=== PATIENT | female | born 1940 | race Caucasian/White ===

== ENCOUNTER 2016-06-11 17:38 | Inpatient (IN) | payer OTHER ==
[~2016-06-11] VITALS: Ht 157.5 cm; Wt 64.5 kg
[2016-06-11] VITALS (12 sets, daily range): BP systolic 145–232; BP diastolic 66–102; PULSE 58–96; RESP 18–28; TEMP 98.2; O2SAT 87–98
[~2016-06-11 17:38] MED LIST: ALBU1.25 NEB; ALPR.25 PO; ASPI81CH25 PO; BUME1TAB PO; CYAN1000P IM; DILT60TA33 PO; DRIS50002 PO; DULO1CAP3 PO; FENO160T PO; LANTUS2P SQ; LEVO150T7 PO; LEVO750T33 PO; LIPI10TA PO; MELO7.5T4 PO; METF500T PO; NITR1SUB3 SL; NOVOLOGP2 SQ; OXYC1TAB63 PO; PANT40TA3 PO; POTA-243 PO; THERM PO; TRAZ50TA12 PO; VALT1TAB PO; XARE20TA PO
[2016-06-11] MEDS ORDERED: SODIUM CHLORIDE 0.9% FLUSH 5 ML FLUSH IVF PRN (18:00)
--- NOTE | 2016-06-11 18:00 | PD ---
HPI Chief Complaint: Respiratory Symptoms Time Seen by Provider: 17:47 Travel History International Travel<30 days: No Contact w/Intl Traveler<30days: No Traveled to known affect area: No History of Present Illness HPI 75-year-old female with history of CAD status post CABG in February 2016 here with complaint of shortness of breath. Patient states that she has been struggling with "fluid on my lungs" despite being compliant with her Bumex. She takes Bumex 1 mg daily. Notes that Lasix allergy. Patient notes shortness of breath progressive over the last week with increasing lower extremity edema. Dry nonproductive cough. No chest pain.symptoms worse with exertion. She was seen at cardiology office today, her ambulance assistant is Dr. Roth, and was hypoxic and sent here for further evaluation. PFSH Past Medical History Hx Anticoagulant Therapy: Yes Arthritis: Yes Asthma: No Atrial Fibrillation: Yes Autoimmune Disease: No Anxiety: Yes Depression: Yes Heart Rhythm Problems: Yes (new onset A-Fib) Cancer: No Cardiac Catheterization: Yes Cardiovascular Problems: Yes (TRIPLE BYPASS) High Cholesterol: Yes Chemotherapy: No Chest Pain: No Congestive Heart Failure: Yes COPD: Yes Cerebrovascular Accident: No Coronary Artery Disease: Yes Diabetes: Yes Diminished Hearing: Yes Endocrine: Yes Gastrointestinal Disorders: Yes GERD: Yes Genitourinary: No Hiatal Hernia: Yes Hypertension: Yes Immune Disorder: No Kidney Stones: No Musculoskeletal: Yes Neurologic: No Psychiatric: Yes Reproductive: No Respiratory: Yes (COPD) Migraines: No Pneumonia: Yes Radiation Therapy: No Renal Failure: No Seizures: No Sickle Cell Disease: No Sleep Apnea: Yes Thyroid Disease: Yes (Hypothyroid) Ulcer: Yes ?: Not Past Surgical History Abdominal Surgery: Yes (gastric bypass) AICD: No Arteriovenous Shunt: No Cardiac Surgery: Yes ([place] 2008 stent) Coronary Artery Bypass Graft: Yes (X3) Coronary Stent: Yes (X`1) Ear Surgery: No Endocrine Surgery: No Eye Surgery: Yes (bilateral cataract sx) Genitourinary Surgery: No Gynecologic Surgery: No Insulin Pump: No Joint Replacement: No Neurologic Surgery: No Oral Surgery: Yes (teeth extraction, wisdom) Pacemaker: No Thoracic Surgery: No Other Surgery: Yes Social History Alcohol Use: Yes (socially) Tobacco Use: No Substance Use: No Allergies-Medications (Allergen,Severity, Reaction): Coded Allergies: Erythromycin (Verified Allergy, Unknown, 06/11/16) Lasix (Verified Allergy, Unknown, 06/11/16) Penicillin (Verified Allergy, Unknown, 06/11/16) Reported Meds & Prescriptions Reported Meds & Active Scripts Active Cardizem (Diltiazem HCl) 60 Mg Tab 60 Mg PO Q6HR Xarelto (Rivaroxaban) 20 Mg Tab 20 Mg PO DAILY Levofloxacin 750 Mg Tab 750 Mg PO DAILY Trazodone (Trazodone HCl) 50 Mg Tab 50 Mg PO HS 30 Days Klor-Con 10 (Potassium Chloride) 10 Meq Tab 10 Meq PO DAILY 7 Days Pantoprazole (Pantoprazole Sodium) 40 Mg Tab 40 Mg PO DAILY 30 Days Oxycodone-Acetaminophen 5-325 mg Tab 1 Tab PO Q6HR PRN Thera M Plus (Multivitamins/Minerals Therapeutic) 1 Tab 1 Tab PO DAILY 30 Days Meloxicam 7.5 Mg Tab 7.5 Mg PO DAILY PRN [address] (Duloxetine HCl) 60 Mg Capdr 120 Mg PO DAILY 30 Days Lipitor (Atorvastatin Calcium) 10 Mg Tab 10 Mg PO HS 30 Days Aspirin Low Strength (Aspirin) 81 Mg Chew 81 Mg PO DAILY 30 Days Xanax (Alprazolam) 0.25 Mg Tab 0.25 Mg PO Q8HR PRN 30 Days Albuterol Neb (Albuterol Sulfate) 1.25 Mg/3 Ml Neb 1.25 Mg NEB Q6HR NEB PRN 30 Days Reported Novolog Inj (Insulin Aspart) 1,000 Unit/10 Ml Vial 2-10 Units SQ ACHS Max dose at bedtime ( ) units; sugars less than 70,(0) units; sugars 150-200,(2) units; sugars 201-250,(4) units; sugars 251-300,(6) units; sugars 301-350,(8) units; sugars 351-400. (10) units Nitroglycerin SL (Nitroglycerin) 0.4 Mg Subl 0.4 Mg SL DIRECTED PRN ONE TABLET UNDER THE TONGUE NEEDED FOR CHEST PAIN, MAY REPEAT EVERY FIVE MINUTES FOR A TOTAL OF 3 DOSES OR CALL 911 IF NO RELIEF Valtrex (Valacyclovir HCl) 1 Gm Tab 1,000 Mg PO DAILY Bumetanide 1 Mg Tab 1 Mg PO DAILY PRN Drisdol (Ergocalciferol) 50,000 Unit Cap 50,000 Units PO WEEKLY ON MONDAYS Cyanocobalamin Inj (Cyanocobalamin) 1,000 Mcg/Ml Inj 1,000 Mcg IM EVERY 2 WEEKS Lantus Inj (Insulin Glargine) 100 Unit/Ml Inj 17 Units SQ HS Metformin (Metformin HCl) 500 Mg Tab 500 Mg PO DAILY With a meal Levothyroxine (Levothyroxine Sodium) 150 Mcg Tab 150 Mcg PO DAILY@0600 Fenofibrate 160 Mg Tab 160 Mg PO HS Review of Systems Except as stated in HPI: all other systems reviewed are Neg Physical Exam Narrative GENERAL: elderly female in no acute distress SKIN: Warm and dry. HEAD: Normocephalic. EYES: No scleral icterus. No injection or drainage. ENT: Mucous membranes pink and moist. NECK: supple CARDIOVASCULAR: Regular rate and rhythm. No murmur appreciated. RESPIRATORY: mild respiratory distress with decreased breath sounds bilaterally. Hypoxic on room air to 86%. 92% on 2 L. GASTROINTESTINAL: Abdomen soft, non-tender, nondistended. MUSCULOSKELETAL: 2+ lower extremity edema to the mid martell NEUROLOGICAL: Awake and alert. Normal speech. PSYCHIATRIC: Appropriate mood and affect; insight and judgment normal. Data Data Last Documented VS Vital Signs Date Time Temp Pulse Resp B/P Pulse Ox O2 Delivery O2 Flow Rate FiO2 06/11/16 17:40 98.2 60 28 145/66 87 Room Air Orders Complete Blood Count With Diff (06/11/16 17:52) Basic Metabolic Panel (Bmp) (06/11/16 17:52) B-Type Natriuretic Peptide (06/11/16 17:52) Troponin I (06/11/16 17:52) Iv Access Insert/Monitor (06/11/16 17:52) Electrocardiogram (06/11/16 17:52) Ecg Monitoring (06/11/16 17:52) Oximetry (06/11/16 17:52) Chest, Single Ap (06/11/16 17:52) Sodium Chloride 0.9% Flush (Ns Flush) (06/11/16 18:00) MDM Medical Decision Making Medical Screen Exam Complete: Yes Emergency Medical Condition: Yes Medical Record Reviewed: Yes Differential Diagnosis 75-year-old female with history of CAD status post CABG in February 2016 here with complaint of shortness of breath, lower extremity edema worsening over the last week despite compliance with Bumex. Differential includes CHF exacerbation , venous stasis, pleural effusion, pulmonary edema, symptomatic anemia, ACS, arrhythmia. Narrative Course Patient placed on monitor, IV established and blood obtained. Placed on supplemental oxygen due to her hypoxia. Twelve-lead EKG showed A. fib. Patient has T-wave inversions in inferior lateral leads similar to her previous EKG. No notable ST abnormalities, normal intervals. Portable chest x-ray obtained that by my read shows increased bilateral pleural effusions from previous. CBC, BMP, BNP, troponin pending. Patient signed out to oncoming provider awaiting results of same for ultimate admission. Diagnosis Primary Impression: CHF exacerbation Qualified Code: I50.9 - Acute on chronic congestive heart failure, unspecified congestive heart failure type Additional Impressions: Pleural effusion Hypoxia Dyspnea Qualified Code: R06.02 - Shortness of breath Admitting Information Admitting Physician Requests: Admit Lucrecia Dennis MD Jun 11, 2016 18:00
--- NOTE | 2016-06-11 18:22 | RADRPT ---
EXAM DATE/TIME: 06/11/2016 18:02 [facility] COMPARISON: CHEST SINGLE AP, May 19, 2016, 16:28. INDICATIONS : Short of Breath since Triple Bypass surgery in February 2016. MEDICAL HISTORY : Cardiovascular disease. SURGICAL HISTORY : CABG. Gastric bypass. Stent. ENCOUNTER: Initial ACUITY: 3 months PAIN SCORE: 0/10 LOCATION: Bilateral chest FINDINGS: The patient is status post sternotomy. The heart size is upper limits of normal for si ze. There is increased density at the bases bilaterally. There does appear to be some blunting of t he costophrenic angles likely related to mild bilateral pleural effusions. CONCLUSION: 1. Status post sternotomy. The heart size is upper limits of normal. 2. Increased density at the bases bilaterally likely representing a combination of atelectasis, conso lidation and mild effusions. Mango Sheth MD on June 11, 2016 at 18:11 Board Certified Radiologist. This report was verified electronically.
[2016-06-11] MEDS ORDERED: DILT90TA PO (19:12)
[2016-06-11 19:29] LABS: AUTOMATED NEUTROPHIL # 6.3 TH/MM3 (1.8-7.7); BASOPHIL # 0.1 TH/MM3 (0-0.2); BASOPHIL % 0.9 % (0.0-2.0); EOSINOPHIL # 0.1 TH/MM3 (0-0.4); HEMATOCRIT 32.2 % (35.0-46.0); LYMPH % 10.7 % (9.0-44.0); LYMPHOCYTE # 0.8 TH/MM3 (1.0-4.8); MEAN CELL VOLUME 72.4 FL (80.0-100.0); MEAN CORPUSCULAR HGB CONC 30.4 % (32.0-36.0); MONO % 6.8 % (0.0-8.0); NEUT % 80.6 % (16.0-70.0); PLATELET COUNT 446 TH/MM3 (150-450); RED BLOOD COUNT 4.44 MIL/MM3 (4.00-5.30); RED CELL DISTRIBUTION WIDTH 16.9 % (11.6-17.2); WHITE BLOOD COUNT 7.9 TH/MM3 (4.0-11.0)
[2016-06-11 19:32] LABS: HEMO FLAGS AUTO DIFF
[2016-06-11 19:38] LABS: BICARBONATE 26.8 MEQ/L (21.0-32.0); POTASSIUM 4.3 MEQ/L (3.5-5.1)
[2016-06-11] MEDS: NITROGLYCERIN-DEXTROSE INJ 250 ML IV SCH (20:14)
[2016-06-11] MEDS ORDERED: ASPIRIN 81 MG CHEW TAB CHEW ONE (20:15)
[2016-06-11] MEDS ORDERED: BISACODYL 10 MG SUPP PR PRN (21:00)
[2016-06-11] MEDS ORDERED: ACETAMINOPHEN 325 MG TAB PO PRN (21:00)
[2016-06-11] MEDS ORDERED: DEXTROSE 50% IN WATER 50 ML VIAL(D50) IV PUSH PRN (21:00)
[2016-06-11] MEDS ORDERED: GLUCAGON 1 MG/ML VIAL OTHER PRN (21:00)
[2016-06-11] MEDS ORDERED: MORPHINE SULFATE 4 MG/ML INJ IV PRN (21:00)
[2016-06-11] MEDS ORDERED: ACETAMINOPHEN/HYDROcodone 325 MG/5 MG TAB PO PRN (21:00)
[2016-06-11] MEDS ORDERED: ONDANSETRON HCL 4 MG/2 ML VIAL IVP PRN (21:00)
[2016-06-11] MEDS ORDERED: SODIUM CHLORIDE 0.9% FLUSH 5 ML FLUSH FLUSH PRN (21:00)
--- NOTE | 2016-06-11 21:04 | HHI.HP ---
[facility] Service [facility] Primary Care Physician Unknown Admission Diagnosis CHF Diagnoses: (1) CHF (congestive heart failure) Diagnosis: Principal (2) Elevated troponin Diagnosis: Principal (3) A-fib Diagnosis: Principal (4) Chronic anticoagulation Diagnosis: Principal (5) JULIANE (acute kidney injury) Diagnosis: Principal (6) HTN (hypertension) Diagnosis: Principal Travel History International Travel<30 Days: No Contact w/Intl Traveler <30 Da: No Traveled to Known Affected Are: No History of Present Illness This is a 75-year-old female with a PMH of HTN, CAD s/p CABG 02/2016, CHF (Echo 03/09/16 w/ EF 55-60%), A-fib on Xarelto and DM who came to the ER w/ complaints of SOB. States symptoms have been on and off since CABG, following w / Dr. Roth as outpatient. Had SOB during episode of A-fib after CABG, now controlled on Diltiazem and Xarelto and states SOB resolved. In last 2wks however SOB recurred, notes progressive SOB without exertion in addition to worsening lower extremity edema despite Bumex. Denies chest pain, cough, fever or chills. On arrival, BP 201/86, HR 64, O2 sat 87% on RA, currently O2 sat 97 % on 3L NC. Afebrile. WBC normal however elevated neutrophil count. Creatinine 1.45, produces 0.96 on 05/23/16. Troponin 0.18. BNP 409. CXR with sternotomy, increased density at bases bilaterally likely consolidation and mild effusions. Started on Nitro gtt in ER for HTN/CHF. Pt mildly improved, however ongoing SOB w/ exertion. Review of Systems Other ROS: 14 point review of systems otherwise negative. Past Family Social History Past Medical History PMH: HTN, CAD s/p CABG 02/2016, CHF (Echo 03/09/16 w/ EF 55-60%), A-fib on Xarelto and DM Past Surgical History PAST SURGICAL HISTORY: Gastric bypass, CABG, Bilateral Cataract Surgery, Tooth Extraction Allergies: Coded Allergies: Erythromycin (Verified Allergy, Unknown, 06/11/16) Lasix (Verified Allergy, Unknown, 06/11/16) Penicillin (Verified Allergy, Unknown, 06/11/16) Family History PAST FAMILY HISTORY: Reviewed. No h/o DM or CAD Social History PAST SOCIAL HISTORY: Negative for alcohol, tobacco or drugs. Physical Exam Vital Signs Vital Signs Date Time Temp Pulse Resp B/P Pulse Ox O2 Delivery O2 Flow Rate FiO2 06/11/16 20:49 65 18 200/93 97 06/11/16 20:36 219/98 06/11/16 20:17 67 18 232/102 06/11/16 19:14 64 18 201/86 96 Nasal Cannula 3 06/11/16 19:12 94 Room Air 06/11/16 17:40 98.2 60 28 145/66 87 Room Air Physical Exam PE: GENERAL: Very pleasant elderly white female in no acute distress, sitting up in stretcher. HEENT: PERRLA, EOMI. No scleral icterus or conjunctival pallor. No lid lag or facial droop. CARDIOVASCULAR: Regular rate and rhythm. No obvious murmurs to auscultation. No chest tenderness to palpation. RESPIRATORY: No obvious rhonchi or wheezing. Clear to auscultation. Breath sounds decreased at bases bilaterally. GASTROINTESTINAL: Abdomen soft, non-tender, nondistended. BS normal. MUSCULOSKELETAL: Extremities without clubbing, cyanosis. 2+ pitting edema bilaterally. No obvious deformities. NEUROLOGICAL: Awake, alert and oriented x4. No focal neurologic deficits. Moving both upper and lower extremities spontaneously. Laboratory Laboratory Tests Test 06/11/16 19:05 White Blood Count 7.9 Red Blood Count 4.44 Hemoglobin 9.8 Hematocrit 32.2 Mean Corpuscular Volume 72.4 Mean Corpuscular Hemoglobin 22.0 Mean Corpuscular Hemoglobin 30.4 Concent Red Cell Distribution Width 16.9 Platelet Count 446 Mean Platelet Volume 8.6 Neutrophils (%) (Auto) 80.6 Lymphocytes (%) (Auto) 10.7 Monocytes (%) (Auto) 6.8 Eosinophils (%) (Auto) 1.0 Basophils (%) (Auto) 0.9 Neutrophils # (Auto) 6.3 Lymphocytes # (Auto) 0.8 Monocytes # (Auto) 0.5 Eosinophils # (Auto) 0.1 Basophils # (Auto) 0.1 CBC Comment AUTO DIFF Sodium Level 137 Potassium Level 4.3 Chloride Level 101 Carbon Dioxide Level 26.8 Anion Gap 9 Blood Urea Nitrogen 29 Creatinine 1.45 Estimat Glomerular Filtration 35 Rate Random Glucose 193 Calcium Level 8.8 Troponin I 0.18 B-Type Natriuretic Peptide 409 Result Diagram: 06/11/16190406/11/161904 Assessment and Plan Problem List: (1) CHF (congestive heart failure) ICD Code: I50.9 Status: Acute (2) Elevated troponin ICD Code: R79.89 Status: Acute (3) A-fib ICD Code: I48.91 Status: Acute (4) Chronic anticoagulation ICD Code: Z79.01 Status: Acute (5) JULIANE (acute kidney injury) ICD Code: N17.9 Status: Acute (6) HTN (hypertension) ICD Code: I10 Status: Acute Assessment and Plan A/P: 1. CHF: Acute on Chronic. Diastolic. Echo 03/09/16 w/ EF 55-60%. BNP 409. CXR w/ bilateral pleural effusions, images reviewed by me. Currently on Nitro gtt. Will admit to [facility]. Place on telemetry. Check serial enzymes to eval for underlying ischemia as etiology for CHF exacerbation. Follows w/ Dr. Roth, will consult for further evaluation. Resume Bumex bid, Lasix Allergy, caution w/ renal function. 2. Elevated Trop: Trop 0.18. EKG w/ no acute ischemia. Check serial enzymes. Likely due to CHF exacerbation however r/o ACS. Resume home Statin, ASA. Not on B-brittney due to h/o Bradycardia. 3. A-fib: Controlled. Resume home Diltiazem. 4. Chronic Anticoagulation: On Xarelto for A-fib, will resume. 5. HTN: Uncontrolled. BP on arrival, 201/86, HR 64, later 232/102, HR 67. Currently on Nitro gtt for HTN and CHF, repeat BP 170/80, HR 58. Will continue to monitor. 6. JULIANE: Creatinine 1.45, previously 0.96 on 05/23/16. Repeat labs in am, caution w/ diuretics. 7. DVT Prophylaxis: On Xarelto. 8. Social work for DC planning as needed. 9. Case discussed at length with ER physician. Physician Certification 2 Midnight Certification Type: Admission for Inpatient Services Order for Inpatient Services The services are ordered in accordance with Medicare regulations or non- Medicare payer requirements, as applicable. In the case of services not specified as inpatient-only, they are appropriately provided as inpatient services in accordance with the 2-midnight benchmark. Estimated LOS (days): 2 days is the estimated time the patient will need to remain in the hospital, assuming treatment plan goals are met and no additional complications. Post-Hospital Plan: Not yet determined Sadia Johnson MD Jun 11, 2016 21:04
[2016-06-11 21:10] LABS: KERATOCYTES 1+ (NORMAL); OVALOCYTES 1+ (NORMAL); SCAN/DIFF AUTO DIFF CONFIRMED; TEARDROP RBCS 1+ (NORMAL)
[2016-06-11] MEDS: INSULIN DETEMIR 100 UNITS/ML VIAL SQ SCH (22:50)
[2016-06-11] MEDS: INSULIN ASPART SUPPLEMENTAL SCALE SQ SCH (22:51)
[2016-06-11] MEDS: traZODone HCL 50 MG TAB PO SCH (22:54)
[2016-06-11] MEDS: ATORVASTATIN 10 MG TAB PO SCH (22:54)
[2016-06-11] MEDS: DILTIAZEM HCL 90 MG TAB PO SCH (22:54)
[2016-06-11] MEDS: SODIUM CHLORIDE 0.9% FLUSH 5 ML FLUSH FLUSH SCH (22:55)
[2016-06-11] MEDS: FENOFIBRATE 145 MG TAB PO SCH (22:55)
[2016-06-12] VITALS (25 sets, daily range): BP systolic 102–182; BP diastolic 56–97; PULSE 45–70; RESP 18–20; TEMP 97.8–98.1; O2SAT 94–99
[2016-06-12] MEDS: DILTIAZEM HCL 90 MG TAB PO SCH ×4 (03:00→21:19)
[2016-06-12 05:49] LABS: BASOPHIL # 0.1 TH/MM3 (0-0.2); EOSINOPHIL # 0.1 TH/MM3 (0-0.4); EOSINOPHIL % 0.9 % (0.0-4.0); HEMATOCRIT 28.6 % (35.0-46.0); LYMPH % 13.6 % (9.0-44.0); LYMPHOCYTE # 0.9 TH/MM3 (1.0-4.8); MEAN CELL VOLUME 72.1 FL (80.0-100.0); MEAN CORPUSCULAR HEMOGLOBIN 22.2 PG (27.0-34.0); MEAN CORPUSCULAR HGB CONC 30.7 % (32.0-36.0); MONO % 8.6 % (0.0-8.0); NEUT % 75.9 % (16.0-70.0); PLATELET COUNT 376 TH/MM3 (150-450); RED BLOOD COUNT 3.96 MIL/MM3 (4.00-5.30); RED CELL DISTRIBUTION WIDTH 16.6 % (11.6-17.2); WHITE BLOOD COUNT 6.6 TH/MM3 (4.0-11.0)
[2016-06-12 05:51] LABS: ALT (GPT) 18 U/L (10-53); ANION GAP 8 MEQ/L (5-15); AST (GOT) 21 U/L (15-37); BICARBONATE 27.6 MEQ/L (21.0-32.0); BLOOD UREA NITROGEN 29 MG/DL (7-18); CHLORIDE 104 MEQ/L (98-107); GLOMERULAR FILTRATION RATE 39 ML/MIN (>89); POTASSIUM 3.9 MEQ/L (3.5-5.1); SODIUM (NA) 140 MEQ/L (136-145)
[2016-06-12 05:55] LABS: ALKALINE PHOSPHATASE 59 U/L (45-117); TOTAL BILIRUBIN ADULT 0.4 MG/DL (0.2-1.0)
[2016-06-12 06:22] LABS: HEMO FLAGS AUTO DIFF
[2016-06-12] MEDS: INSULIN ASPART SUPPLEMENTAL SCALE SQ SCH ×4 (06:46→21:23)
[2016-06-12] MEDS: LEVOTHYROXINE SODIUM 150 MCG TAB PO SCH (06:46)
[2016-06-12] MEDS: RIVAROXABAN 15 MG TAB PO SCH (08:43)
[2016-06-12] MEDS: PANTOPRAZOLE SOD 40 MG DELAYED RELEASE TAB PO SCH (08:43)
[2016-06-12] MEDS: ASPIRIN 81 MG CHEW TAB PO SCH (08:44)
[2016-06-12] MEDS: BUMETANIDE INJ 1 MG/4 ML VIAL IV PUSH SCH ×2 (08:44→17:18)
[2016-06-12] MEDS: SODIUM CHLORIDE 0.9% FLUSH 5 ML FLUSH FLUSH SCH ×2 (08:44→21:19)
[2016-06-12] MEDS: MULTIVITAMINS/MINERALS THERAPEUTIC TAB PO SCH (08:44)
[2016-06-12] MEDS: DULoxetine HCl DR 60 MG CAP PO SCH (08:53)
[2016-06-12 09:41] LABS: OVALOCYTES 1+ (NORMAL); SCAN/DIFF AUTO DIFF CONFIRMED
--- NOTE | 2016-06-12 12:34 | HHI.PR ---
Subjective Remarks Follow-up uncontrolled hypertension/CHF exacerbation 06/12/16-patient seen and examined, still complain of some shortness of breath however states he has improved since admission. Denies any chest pain. Also complains of bilateral lower extremity swelling. Objective Vitals Vital Signs Date Time Temp Pulse Resp B/P Pulse Ox O2 Delivery O2 Flow Rate FiO2 06/12/16 12:00 54 06/12/16 11:46 51 06/12/16 11:46 98.0 51 18 145/62 94 06/12/16 10:02 62 06/12/16 09:53 56 06/12/16 08:30 65 06/12/16 08:30 98.1 65 18 158/67 96 06/12/16 06:45 62 20 182/97 97 06/12/16 06:00 62 06/12/16 05:00 53 06/12/16 04:00 97.9 59 18 150/83 98 06/12/16 04:00 59 06/12/16 03:00 55 06/12/16 02:00 50 06/12/16 01:40 59 18 102/56 97 Nasal Cannula 3 06/12/16 01:30 97.8 50 18 166/77 99 06/12/16 00:45 53 18 160/72 97 Nasal Cannula 2 06/11/16 23:42 69 158/74 06/11/16 23:31 58 18 191/84 98 06/11/16 23:31 98 06/11/16 22:32 96 202/93 06/11/16 22:30 65 206/84 06/11/16 21:39 58 18 170/80 98 06/11/16 21:37 170/80 06/11/16 20:49 65 18 200/93 97 06/11/16 20:36 219/98 06/11/16 20:17 67 18 232/102 06/11/16 19:14 64 18 201/86 96 Nasal Cannula 3 06/11/16 19:12 94 Room Air 06/11/16 17:40 98.2 60 28 145/66 87 Room Air I/O 06/11/16 06/11/16 06/11/16 06/12/16 06/12/16 06/12/16 07:00 15:00 23:00 07:00 15:00 23:00 Intake Total 240 ml Balance 240 ml Intake Oral 240 ml # Voids 2 # Bowel Movements 0 Result Diagram: 06/12/16 0506 06/12/16 0506 Imaging Last Impressions Chest X-Ray 06/11/16 1752 Signed Impressions: Service Date/Time: Saturday, June 11, 2016 18:02 - CONCLUSION: 1. Status post sternotomy. The heart size is upper limits of normal. 2. Increased density at the bases bilaterally likely representing a combination of atelectasis, consolidation and mild effusions. Mango Sheth MD Objective Remarks GENERAL: NAD SKIN: Warm and dry. HEAD: Normocephalic. EYES: No scleral icterus. No injection or drainage. NECK: Supple, trachea midline. No JVD or lymphadenopathy. CARDIOVASCULAR: Regular rate and rhythm without murmurs, gallops, or rubs. RESPIRATORY: Breath sounds equal bilaterally. No accessory muscle use. GASTROINTESTINAL: Abdomen soft, non-tender, nondistended. MUSCULOSKELETAL: No cyanosis; +1 edema BLE. BACK: Nontender without obvious deformity. No CVA tenderness. A/P Problem List: (1) CHF (congestive heart failure) ICD Code: I50.9 Status: Acute (2) Elevated troponin ICD Code: R79.89 Status: Acute (3) A-fib ICD Code: I48.91 Status: Acute (4) Chronic anticoagulation ICD Code: Z79.01 Status: Acute (5) JULIANE (acute kidney injury) ICD Code: N17.9 Status: Acute (6) HTN (hypertension) ICD Code: I10 Status: Acute Assessment and Plan 75-year-old female with 1. CHF: Acute on Chronic. Diastolic. Echo 03/09/16 w/ EF 55-60%. BNP 409. CXR w/ bilateral pleural effusions. Currently on Nitro gtt, Bumex IV twice a day and appreciate input from cardiology. ACS ruled out per protocol with serial cardiac enzyme and EKGs. 2. Elevated Trop: Trop 0.18. EKG w/ no acute ischemia. Likely due to CHF exacerbation. ACS ruled out per protocol with serial cardiac enzyme and EKGs. Continue home Statin, ASA. Not on B-brittney due to h/o Bradycardia. 3. A-fib: Controlled. Continue home Diltiazem. 4. Chronic Anticoagulation: On Xarelto for A-fib, will resume. 5. HTN: Currently normotensive and continue Nitro gtt for HTN and CHF 6. JULIANE: Creatinine 1.45, previously 0.96 on 05/23/16. Monitor BUN and creatinine, caution w/ diuretics. 7. DVT Prophylaxis: On Xarelto. Rommel Stevens MD Jun 12, 2016 12:34
--- NOTE | 2016-06-12 14:24 | MB ---
cc: MICA KRUEGER MD DATE OF CONSULTATION: 06/12/2016 ADDENDUM: Elevated troponin. Minimally elevated troponin, is likely due to congestive heart failure, this is not consistent with acute coronary syndrome. She has no active angina. She may require a stress test prior to discharge but I will defer that to her primary audio video repairer Dr. Roth. MD ORLANDO NickersonH/ /11:41 AM /2:17 PM
--- NOTE | 2016-06-12 14:25 | EKG ---
Date Performed: 06/12/2016 Time Performed: 00:27:04 PTAGE: 75 years EKG: ATRIAL FIBRILLATION WITH SLOW VENTRICULAR RESPONSE ST DEVIATION AND MODERATE T-WAVE ABNORMA LITY, CONSIDER INFERIOR ISCHEMIA Poor R wave progression Cannot rule out anterior injury, age undeter mined Largely unchanged from prior tracing ABNORMAL ECG PREVIOUS TRACING : 06/11/2016 18.20 DOCTOR: Chu Ratliff Interpretating Date/Time 06/12/2016 14:24:41
--- NOTE | 2016-06-12 14:26 | EKG ---
Date Performed: 06/12/2016 Time Performed: 05:10:40 PTAGE: 75 years EKG: Atrial fibrillation with slow ventricular response Rightward axis Poor R wave progression - probable normal variant Inferior/lateral ST-T changes are nonspecific Possible old anteroseptal inju ry Abnormal ECG PREVIOUS TRACING : 06/12/2016 00.27 DOCTOR: Chu Ratliff Interpretating Date/Time 06/12/2016 14:25:38
--- NOTE | 2016-06-12 14:34 | MB ---
cc: MICA KRUEGER MD DATE OF CONSULTATION: 06/12/2016 REASON FOR CONSULTATION Shortness of breath. HISTORY OF PRESENT ILLNESS The patient is a very pleasant 75-year-old woman who sees my partner Dr. Roth for a history of CABG, a-fib who says she has not been doing very well since her CABG that over the last few weeks has had worsening shortness of breath. She saw Dr. Roth this past Tuesday and was referred to Pulmonology who had her come to the hospital. Currently she is feeling a little better than on admission though no current chest pain or active shortness of breath, lightheadedness, dizziness, syncope. PAST MEDICAL HISTORY 1. A-fib on Xarelto. 2. Diabetes. 3. Obesity. 4. Coronary artery disease status post CABG 03/18/2016. CURRENT MEDICATIONS 1. Aspirin 81 mg daily. 2. Cymbalta. 3. Protonix 40 mg daily. 4. Xarelto 15 mg daily. 5. Bumex 1 mg IV b.i.d. 6. Cardizem 90 mg q.6 hours. 7. Fenofibrate. 8. Nitro drip. ALLERGIES ERYTHROMYCIN, LASIX, PENICILLIN. PHYSICAL EXAMINATION VITAL SIGNS: Afebrile, pulse 60, respiratory rate 18, BP 158/67 down from 182/97, satting 96 on 3 liters. GENERAL: A pleasant well-appearing woman in no distress. NECK: No JVD. LUNGS: Decreased breath sounds. CARDIOVASCULAR: Regular rate and rhythm. No murmurs appreciated. ABDOMEN: Abdomen is benign. EXTREMITIES: No edema. LABORATORY DATA White count 6.6, hematocrit 28.6, platelets 376. Sodium 140, potassium 3.9, chloride 104, bicarb 27.6, BUN 29, creatinine 1.32. Troponin 0.18, 0.17, 0.16. BNP is 409. EKG shows atrial fibrillation with a rate of [address] changes. IMPRESSION Shortness of breath. The patient's shortness of breath is likely multifactorial. She has a chest x-ray which showed a possible combination of atelectasis, consolidation and mild effusions which may be responsible for her symptoms. Her BNP is modestly elevated and her blood pressures were high indicating she probably has some degree of diastolic dysfunction. She says she had an echocardiogram performed relatively recently in our office which I will check but I do not feel that it needs to be repeated if this is the case. Otherwise, I would continue her on her IV Bumex for now. We will try to wean off her nitro drip and begin a more aggressive oral regimen for her blood pressures and would also recommend continued treatment from the medical or pulmonary treatment regarding possible pneumonia and COPD exacerbations. Further recommendations based on her clinical course. Thank you again for opportunity to participate in this patient's care. MD KRISTOPHER Nickerson/CYRUS /11:34 AM /2:06 PM
[2016-06-12] MEDS: ALPRAZolam 0.25 MG TAB PO PRN (16:14)
--- NOTE | 2016-06-12 16:48 | EKG ---
Date Performed: 06/11/2016 Time Performed: 18:20:56 PTAGE: 75 years EKG: ATRIAL FIBRILLATION BORDERLINE RIGHT AXIS DEVIATION NONSPECIFIC ST & T-WAVE ABNORMALITY Pro bable anterior injury, age undetermined Largely unchanged from prior tracing ABNORMAL ECG PREVIOUS TRACING : 05/20/2016 09.31 DOCTOR: Chu Ratliff Interpretating Date/Time 06/12/2016 16:48:25
[2016-06-12] MEDS: FENOFIBRATE 145 MG TAB PO SCH (21:18)
[2016-06-12] MEDS: traZODone HCL 50 MG TAB PO SCH (21:18)
[2016-06-12] MEDS: ATORVASTATIN 10 MG TAB PO SCH (21:19)
[2016-06-12] MEDS: INSULIN DETEMIR 100 UNITS/ML VIAL SQ SCH (21:23)
[2016-06-13] VITALS (21 sets, daily range): BP systolic 143–161; BP diastolic 68–83; PULSE 52–75; RESP 16–22; TEMP 97.5–98.3; O2SAT 94–98
[2016-06-13] MEDS: DILTIAZEM HCL 90 MG TAB PO SCH ×4 (03:23→20:42)
[2016-06-13 04:19] LABS: AUTOMATED NEUTROPHIL # 6.7 TH/MM3 (1.8-7.7); BASOPHIL # 0.1 TH/MM3 (0-0.2); BASOPHIL % 0.9 % (0.0-2.0); EOSINOPHIL # 0.1 TH/MM3 (0-0.4); EOSINOPHIL % 1.1 % (0.0-4.0); HEMATOCRIT 29.1 % (35.0-46.0); LYMPH % 10.5 % (9.0-44.0); LYMPHOCYTE # 0.9 TH/MM3 (1.0-4.8); MEAN CELL VOLUME 71.3 FL (80.0-100.0); MEAN CORPUSCULAR HEMOGLOBIN 22.3 PG (27.0-34.0); MEAN CORPUSCULAR HGB CONC 31.3 % (32.0-36.0); MONO % 7.5 % (0.0-8.0); PLATELET COUNT 379 TH/MM3 (150-450); RED BLOOD COUNT 4.08 MIL/MM3 (4.00-5.30); RED CELL DISTRIBUTION WIDTH 16.7 % (11.6-17.2); WHITE BLOOD COUNT 8.3 TH/MM3 (4.0-11.0)
[2016-06-13 04:38] LABS: ANION GAP 7 MEQ/L (5-15); AST (GOT) 17 U/L (15-37); BICARBONATE 32.7 MEQ/L (21.0-32.0); BLOOD UREA NITROGEN 24 MG/DL (7-18); CHLORIDE 102 MEQ/L (98-107); GLOMERULAR FILTRATION RATE 56 ML/MIN (>89); POTASSIUM 3.6 MEQ/L (3.5-5.1); SODIUM (NA) 142 MEQ/L (136-145)
[2016-06-13 04:41] LABS: ALKALINE PHOSPHATASE 60 U/L (45-117)
[2016-06-13 04:42] LABS: ALT (GPT) 19 U/L (10-53); TOTAL BILIRUBIN ADULT 0.5 MG/DL (0.2-1.0)
[2016-06-13 04:46] LABS: HEMO FLAGS AUTO DIFF
[2016-06-13 05:26] LABS: OVALOCYTES 1+ (NORMAL); PLATELET ESTIMATE SMEAR NORMAL (NORMAL); PLATELET MORPHOLOGY NORMAL (NORMAL)
[2016-06-13 05:27] LABS: SCAN/DIFF AUTO DIFF CONFIRMED
[2016-06-13] MEDS: LEVOTHYROXINE SODIUM 150 MCG TAB PO SCH (06:28)
[2016-06-13] MEDS: INSULIN ASPART SUPPLEMENTAL SCALE SQ SCH ×4 (06:29→21:10)
[2016-06-13] MEDS: DULoxetine HCl DR 60 MG CAP PO SCH (09:30)
[2016-06-13] MEDS: ASPIRIN 81 MG CHEW TAB PO SCH (09:30)
[2016-06-13] MEDS: RIVAROXABAN 15 MG TAB PO SCH (09:30)
[2016-06-13] MEDS: MULTIVITAMINS/MINERALS THERAPEUTIC TAB PO SCH (09:30)
[2016-06-13] MEDS: PANTOPRAZOLE SOD 40 MG DELAYED RELEASE TAB PO SCH (09:30)
[2016-06-13] MEDS: SODIUM CHLORIDE 0.9% FLUSH 5 ML FLUSH FLUSH SCH ×2 (09:31→20:43)
[2016-06-13] MEDS: BUMETANIDE INJ 1 MG/4 ML VIAL IV PUSH SCH ×2 (09:31→17:43)
--- NOTE | 2016-06-13 11:25 | PD.CARD.PN ---
Subjective Subjective Remarks Feeling better but still mildly dyspneic Objective Medications Administered Medications Medications (Trade) Dose Ordered Sig/Seema Route PRN Reason Start Time Stop Time Status Last Admin Dose Admin Nitroglycerin/ Dextrose (Nitroglycerin-Dextrose Inj) 250 ml @ 0 mls/hr TITRATE IV 06/11/16 19:30 06/11/16 20:14 IV Flush (NS Flush) 2 ml BID FLUSH 06/11/16 21:00 06/13/16 09:31 Alprazolam (Xanax) 0.25 mg Q8HR PRN PO anxiety 06/11/16 21:00 06/12/16 16:14 Aspirin (Aspirin Chew) 81 mg DAILY PO 06/12/16 09:00 06/13/16 09:30 Atorvastatin Calcium (Lipitor) 10 mg HS PO 06/11/16 21:00 06/12/16 21:19 Diltiazem HCl (Cardizem) 90 mg Q6H PO 06/11/16 21:00 06/13/16 09:30 Duloxetine HCl (Cymbalta Dr) 120 mg DAILY PO 06/12/16 09:00 06/13/16 09:30 Fenofibrate (Tricor) 145 mg HS PO 06/11/16 21:00 06/12/16 21:18 Insulin Detemir (Levemir Inj) 17 units HS SQ 06/11/16 22:00 06/12/16 21:23 Levothyroxine Sodium (Synthroid) 150 mcg DAILY@0600 PO 06/12/16 06:00 06/13/16 06:28 Multivitamins/ Minerals Therapeutic (Theragran M Tab) 1 tab DAILY PO 06/12/16 09:00 06/13/16 09:30 Pantoprazole Sodium (Protonix) 40 mg DAILY PO 06/12/16 09:00 06/13/16 09:30 Rivaroxaban (Xarelto) 15 mg DAILY PO 06/12/16 09:00 06/13/16 09:30 Trazodone HCl (Desyrel) 50 mg HS PO 06/11/16 21:00 06/12/16 21:18 Bumetanide (Bumex Inj) 1 mg BID@,18 IV PUSH 06/12/16 09:00 06/13/16 09:31 Vital Signs / I&O Vital Signs Date Time Temp Pulse Resp B/P Pulse Ox O2 Delivery O2 Flow Rate FiO2 06/13/16 07:00 97.5 66 18 157/83 98 06/13/16 06:00 65 06/13/16 05:00 64 06/13/16 04:00 73 06/13/16 03:00 97.8 66 18 154/80 97 06/13/16 03:00 66 06/13/16 02:00 59 06/13/16 01:00 52 06/13/16 00:00 71 06/13/16 00:00 98.0 71 20 161/76 96 06/12/16 23:00 62 06/12/16 22:00 65 06/12/16 21:00 61 06/12/16 20:00 55 06/12/16 19:00 97.8 45 20 172/81 98 06/12/16 19:00 45 06/12/16 18:04 68 06/12/16 17:13 70 06/12/16 16:04 69 06/12/16 15:07 62 06/12/16 15:07 98.0 62 20 151/82 96 06/12/16 14:14 63 06/12/16 13:41 55 06/12/16 12:00 54 06/12/16 11:46 51 06/12/16 11:46 98.0 51 18 145/62 94 I/O 06/12/16 06/12/16 06/12/16 06/13/16 06/13/16 06/13/16 07:00 15:00 23:00 07:00 15:00 23:00 Intake Total 240 ml 630 ml 420 ml Output Total 1050 ml 800 ml Balance 240 ml -420 ml -380 ml Intake Oral 240 ml 600 ml 320 ml IV Total 30 ml 100 ml Output Urine Total 1050 ml 800 ml # Voids 2 # Bowel Movements 0 1 2 Physical Exam GENERAL: This is a well-nourished, well-developed patient, in no apparent distress. CARDIOVASCULAR: Regular rate and rhythm without murmurs, gallops, or rubs. RESPIRATORY: Clear to auscultation. Breath sounds equal bilaterally. No wheezes , rales, or rhonchi. GASTROINTESTINAL: Abdomen soft, non-tender, nondistended. Normal active bowel sounds MUSCULOSKELETAL: Extremities without clubbing, cyanosis, or edema. NEURO: Alert & Oriented x4 to person, place, time, situation. Moves all ext x4 Laboratory Laboratory Tests Test 06/13/16 03:41 White Blood Count 8.3 TH/MM3 Red Blood Count 4.08 MIL/MM3 Hemoglobin 9.1 GM/DL Hematocrit 29.1 % Mean Corpuscular Volume 71.3 FL Mean Corpuscular Hemoglobin 22.3 PG Mean Corpuscular Hemoglobin 31.3 % Concent Red Cell Distribution Width 16.7 % Platelet Count 379 TH/MM3 Mean Platelet Volume 8.6 FL Neutrophils (%) (Auto) 80.0 % Lymphocytes (%) (Auto) 10.5 % Monocytes (%) (Auto) 7.5 % Eosinophils (%) (Auto) 1.1 % Basophils (%) (Auto) 0.9 % Neutrophils # (Auto) 6.7 TH/MM3 Lymphocytes # (Auto) 0.9 TH/MM3 Monocytes # (Auto) 0.6 TH/MM3 Eosinophils # (Auto) 0.1 TH/MM3 Basophils # (Auto) 0.1 TH/MM3 CBC Comment AUTO DIFF Differential Comment AUTO DIFF CONFIRMED Platelet Estimate NORMAL Platelet Morphology Comment NORMAL Ovalocytes 1+ Sodium Level 142 MEQ/L Potassium Level 3.6 MEQ/L Chloride Level 102 MEQ/L Carbon Dioxide Level 32.7 MEQ/L Anion Gap 7 MEQ/L Blood Urea Nitrogen 24 MG/DL Creatinine 0.98 MG/DL Estimat Glomerular Filtration 56 ML/MIN Rate Random Glucose 111 MG/DL Calcium Level 8.8 MG/DL Total Bilirubin 0.5 MG/DL Aspartate Amino Transf 17 U/L (AST/SGOT) Alanine Aminotransferase 19 U/L (ALT/SGPT) Alkaline Phosphatase 60 U/L Total Protein 6.9 GM/DL Albumin 3.2 GM/DL Imaging Last Impressions Chest X-Ray 06/11/16 6272 Signed Impressions: Service Date/Time: Saturday, June 11, 2016 18:02 - CONCLUSION: 1. Status post sternotomy. The heart size is upper limits of normal. 2. Increased density at the bases bilaterally likely representing a combination of atelectasis, consolidation and mild effusions. Mango Sheth MD Assessment and Plan Problem List: (1) CHF (congestive heart failure) Assessment and Plan: On IV bumex, improving sx. (2) Dyspnea Assessment and Plan: Likely multifactorial but improving. (3) A-fib Assessment and Plan: controlled, on xarelto (4) Elevated troponin Assessment and Plan: Likely due to chf/ pattern not c/w ACS (5) Hypertension Assessment and Plan: added Losartan, will try to d/c nitro ggt. (6) Coronary artery disease Problem Qualifiers (1) Dyspnea: Qualified Code: R06.02 - Shortness of breath Yosef Jon MD Jun 13, 2016 11:25
--- NOTE | 2016-06-13 11:37 | HHI.PR ---
Subjective Remarks Follow-up uncontrolled hypertension/CHF exacerbation 06/12/16-patient seen and examined, still complain of some shortness of breath however states he has improved since admission. Denies any chest pain. Also complains of bilateral lower extremity swelling. 06/13/16-patient seen and examined; although improved however patient is still with some mild dyspnea. Denies any chest pain. BP improving. Objective Vitals Vital Signs Date Time Temp Pulse Resp B/P Pulse Ox O2 Delivery O2 Flow Rate FiO2 06/13/16 11:00 97.6 66 18 143/68 96 06/13/16 07:00 97.5 66 18 157/83 98 06/13/16 06:00 65 06/13/16 05:00 64 06/13/16 04:00 73 06/13/16 03:00 97.8 66 18 154/80 97 06/13/16 03:00 66 06/13/16 02:00 59 06/13/16 01:00 52 06/13/16 00:00 71 06/13/16 00:00 98.0 71 20 161/76 96 06/12/16 23:00 62 06/12/16 22:00 65 06/12/16 21:00 61 06/12/16 20:00 55 06/12/16 19:00 97.8 45 20 172/81 98 06/12/16 19:00 45 06/12/16 18:04 68 06/12/16 17:13 70 06/12/16 16:04 69 06/12/16 15:07 62 06/12/16 15:07 98.0 62 20 151/82 96 06/12/16 14:14 63 06/12/16 13:41 55 06/12/16 12:00 54 06/12/16 11:46 51 06/12/16 11:46 98.0 51 18 145/62 94 I/O 06/12/16 06/12/16 06/12/16 06/13/16 06/13/16 06/13/16 07:00 15:00 23:00 07:00 15:00 23:00 Intake Total 240 ml 630 ml 420 ml Output Total 1050 ml 800 ml Balance 240 ml -420 ml -380 ml Intake Oral 240 ml 600 ml 320 ml IV Total 30 ml 100 ml Output Urine Total 1050 ml 800 ml # Voids 2 # Bowel Movements 0 1 2 Result Diagram: 06/13/16 0341 06/13/16 0341 Imaging Last Impressions Chest X-Ray 06/11/16 1752 Signed Impressions: Service Date/Time: Saturday, June 11, 2016 18:02 - CONCLUSION: 1. Status post sternotomy. The heart size is upper limits of normal. 2. Increased density at the bases bilaterally likely representing a combination of atelectasis, consolidation and mild effusions. Mango Sheth MD Objective Remarks GENERAL: NAD SKIN: Warm and dry. HEAD: Normocephalic. EYES: No scleral icterus. No injection or drainage. NECK: Supple, trachea midline. No JVD or lymphadenopathy. CARDIOVASCULAR: Regular rate and rhythm without murmurs, gallops, or rubs. RESPIRATORY: Breath sounds equal bilaterally. No accessory muscle use. GASTROINTESTINAL: Abdomen soft, non-tender, nondistended. MUSCULOSKELETAL: No cyanosis; +1 edema BLE. BACK: Nontender without obvious deformity. No CVA tenderness. A/P Problem List: (1) CHF (congestive heart failure) ICD Code: I50.9 Status: Acute (2) Elevated troponin ICD Code: R79.89 Status: Acute (3) A-fib ICD Code: I48.91 Status: Acute (4) Chronic anticoagulation ICD Code: Z79.01 Status: Acute (5) JULIANE (acute kidney injury) ICD Code: N17.9 Status: Acute (6) HTN (hypertension) ICD Code: I10 Status: Acute Assessment and Plan 75-year-old female with 1. CHF: Acute on Chronic. Diastolic. Echo 03/09/16 w/ EF 55-60%. BNP 409. CXR w/ bilateral pleural effusions. Currently on Nitro gtt, Bumex IV twice a day and appreciate input from cardiology. ACS ruled out per protocol with serial cardiac enzyme and EKGs. Plan to discontinue nitroglycerin gtt today 2. Elevated Trop: Trop 0.18. EKG w/ no acute ischemia. Likely due to CHF exacerbation. ACS ruled out per protocol with serial cardiac enzyme and EKGs. Continue home Statin, ASA. Not on B-brittney due to h/o Bradycardia. 3. A-fib: Controlled. Continue home Diltiazem. 4. Chronic Anticoagulation: On Xarelto for A-fib, will resume. 5. HTN: Currently normotensive and likely attempt to discontinue Nitro gtt today. Losartan 100 mg by mouth daily added today 6. JULIANE: Creatinine 1.45, previously 0.96 on 05/23/16 now improving. Monitor BUN and creatinine, caution w/ diuretics. 7. DVT Prophylaxis: On Xarelto. Rommel Stevens MD Jun 13, 2016 11:37
[2016-06-13] MEDS: LOSARTAN 50 MG TAB PO SCH (12:15)
[2016-06-13] MEDS: ALPRAZolam 0.25 MG TAB PO PRN ×2 (12:15→20:42)
[2016-06-13] MEDS: NITROGLYCERIN-DEXTROSE INJ 250 ML IV SCH (19:24)
[2016-06-13] MEDS: ATORVASTATIN 10 MG TAB PO SCH (20:42)
[2016-06-13] MEDS: FENOFIBRATE 145 MG TAB PO SCH (20:42)
[2016-06-13] MEDS: traZODone HCL 50 MG TAB PO SCH (20:42)
[2016-06-13] MEDS: INSULIN DETEMIR 100 UNITS/ML VIAL SQ SCH (20:43)
[2016-06-14] VITALS (22 sets, daily range): BP systolic 134–170; BP diastolic 66–79; PULSE 54–89; RESP 17–21; TEMP 98.1–99; O2SAT 92–96
[2016-06-14] MEDS: DILTIAZEM HCL 90 MG TAB PO SCH ×4 (03:51→22:01)
[2016-06-14] MEDS: LEVOTHYROXINE SODIUM 150 MCG TAB PO SCH (05:37)
[2016-06-14] MEDS: INSULIN ASPART SUPPLEMENTAL SCALE SQ SCH ×4 (05:37→22:00)
[2016-06-14] MEDS: BUMETANIDE INJ 1 MG/4 ML VIAL IV PUSH SCH ×2 (08:29→17:45)
[2016-06-14] MEDS: DULoxetine HCl DR 60 MG CAP PO SCH (08:29)
[2016-06-14] MEDS: PANTOPRAZOLE SOD 40 MG DELAYED RELEASE TAB PO SCH (08:29)
[2016-06-14] MEDS: RIVAROXABAN 15 MG TAB PO SCH (08:30)
[2016-06-14] MEDS: LOSARTAN 50 MG TAB PO SCH (08:30)
[2016-06-14] MEDS: SODIUM CHLORIDE 0.9% FLUSH 5 ML FLUSH FLUSH SCH ×2 (08:30→22:03)
[2016-06-14] MEDS: MULTIVITAMINS/MINERALS THERAPEUTIC TAB PO SCH (08:30)
[2016-06-14] MEDS: ASPIRIN 81 MG CHEW TAB PO SCH (08:30)
--- NOTE | 2016-06-14 10:32 | PD.CARD.PN ---
Subjective Subjective Remarks Pt feels like she is slowly improving but still desaturates w/o O2 during ambulation Objective Medications Administered Medications Medications (Trade) Dose Ordered Sig/Seema Route PRN Reason Start Time Stop Time Status Last Admin Dose Admin Nitroglycerin/ Dextrose (Nitroglycerin-Dextrose Inj) 250 ml @ 0 mls/hr TITRATE IV 06/11/16 19:30 06/13/16 19:24 IV Flush (NS Flush) 2 ml BID FLUSH 06/11/16 21:00 06/14/16 08:30 Alprazolam (Xanax) 0.25 mg Q8HR PRN PO anxiety 06/11/16 21:00 06/13/16 20:42 Aspirin (Aspirin Chew) 81 mg DAILY PO 06/12/16 09:00 06/14/16 08:30 Atorvastatin Calcium (Lipitor) 10 mg HS PO 06/11/16 21:00 06/13/16 20:42 Diltiazem HCl (Cardizem) 90 mg Q6H PO 06/11/16 21:00 06/14/16 08:30 Duloxetine HCl (Cymbalta Dr) 120 mg DAILY PO 06/12/16 09:00 06/14/16 08:29 Fenofibrate (Tricor) 145 mg HS PO 06/11/16 21:00 06/13/16 20:42 Insulin Detemir (Levemir Inj) 17 units HS SQ 06/11/16 22:00 06/13/16 20:43 Levothyroxine Sodium (Synthroid) 150 mcg DAILY@0600 PO 06/12/16 06:00 06/14/16 05:37 Multivitamins/ Minerals Therapeutic (Theragran M Tab) 1 tab DAILY PO 06/12/16 09:00 06/14/16 08:30 Pantoprazole Sodium (Protonix) 40 mg DAILY PO 06/12/16 09:00 06/14/16 08:29 Rivaroxaban (Xarelto) 15 mg DAILY PO 06/12/16 09:00 06/14/16 08:30 Trazodone HCl (Desyrel) 50 mg HS PO 06/11/16 21:00 06/13/16 20:42 Bumetanide (Bumex Inj) 1 mg BID@,18 IV PUSH 06/12/16 09:00 06/14/16 08:29 Losartan Potassium (Cozaar) 100 mg DAILY PO 06/13/16 12:00 06/14/16 08:30 Vital Signs / I&O Vital Signs Date Time Temp Pulse Resp B/P Pulse Ox O2 Delivery O2 Flow Rate FiO2 06/14/16 06:00 Nasal Cannula 3.00 06/14/16 05:31 58 145/68 06/14/16 04:08 98.2 89 21 170/77 95 06/13/16 23:45 98.1 63 22 159/79 94 06/13/16 20:00 Nasal Cannula 3.00 06/13/16 20:00 98.3 61 16 157/81 97 06/13/16 18:00 58 06/13/16 17:00 61 06/13/16 16:00 62 06/13/16 15:00 60 06/13/16 15:00 97.5 73 18 144/77 96 06/13/16 14:00 60 06/13/16 13:00 71 06/13/16 12:00 65 06/13/16 11:00 97.6 66 18 143/68 96 06/13/16 11:00 70 I/O 06/13/16 06/13/16 06/13/16 06/14/16 06/14/16 06/14/16 07:00 15:00 23:00 07:00 15:00 23:00 Intake Total 420 ml 1287 ml Output Total 800 ml 600 ml 1200 ml Balance -380 ml 687 ml -1200 ml Intake Oral 320 ml 1200 ml IV Total 100 ml 87 ml Output Urine Total 800 ml 600 ml 1200 ml # Voids 5 # Bowel Movements 2 4 1 Physical Exam GENERAL: This is a well-nourished, well-developed patient, in no apparent distress. CARDIOVASCULAR: Regular rate and rhythm without murmurs, gallops, or rubs. RESPIRATORY: decreased breath sounds GASTROINTESTINAL: Abdomen soft, non-tender, nondistended. Normal active bowel sounds MUSCULOSKELETAL: trace to 1+ LE edema NEURO: Alert & Oriented x4 to person, place, time, situation. Moves all ext x4 Imaging Last Impressions Chest X-Ray 06/11/16 0487 Signed Impressions: Service Date/Time: Saturday, June 11, 2016 18:02 - CONCLUSION: 1. Status post sternotomy. The heart size is upper limits of normal. 2. Increased density at the bases bilaterally likely representing a combination of atelectasis, consolidation and mild effusions. Mango Sheth MD Assessment and Plan Problem List: (1) CHF (congestive heart failure) Assessment and Plan: On IV bumex, improving sx and cr, perhaps can change to PO tomorrow (2) Dyspnea Assessment and Plan: improving but seems to have pulmonary component as well, consider pulm consult (3) A-fib Assessment and Plan: controlled, on xarelto (4) Elevated troponin Assessment and Plan: Likely due to chf/ pattern not c/w ACS (5) Hypertension Assessment and Plan: added amlodipine (6) Coronary artery disease Assessment and Plan Dr. Roth will return tomorrow to resume care. Problem Qualifiers (1) Dyspnea: Qualified Code: R06.02 - Shortness of breath Yosef Jon MD Jun 14, 2016 10:32
[2016-06-14] MEDS: amLODIPine BESYLATE 5 MG TAB PO SCH (10:47)
--- NOTE | 2016-06-14 12:13 | PD ---
Physical Exam Narrative Patient signed out to me by Dr. Caballero to follow-up labs and disposition. Please see her note for complete history and physical. Briefly, patient has been having increasing shortness of breath with swelling of her legs. Chest x- ray shows bilateral pleural effusions. Patient takes Bumex daily as she is allergic to Lasix. Currently patient is comfortable in bed, no tachypnea, though she still reports feeling short of breath. Data Data Last Documented VS Vital Signs Date Time Temp Pulse Resp B/P Pulse Ox O2 Delivery O2 Flow Rate FiO2 06/11/16 20:49 65 18 200/93 97 06/11/16 19:14 Nasal Cannula 3 06/11/16 17:40 98.2 Orders Complete Blood Count With Diff (06/11/16 17:52) Basic Metabolic Panel (Bmp) (06/11/16 17:52) B-Type Natriuretic Peptide (06/11/16 17:52) Troponin I (06/11/16 17:52) Iv Access Insert/Monitor (06/11/16 17:52) Electrocardiogram (06/11/16 17:52) Ecg Monitoring (06/11/16 17:52) Oximetry (06/11/16 17:52) Chest, Single Ap (06/11/16 17:52) Sodium Chloride 0.9% Flush (Ns Flush) (06/11/16 18:00) Nitroglycerin-Dextrose Inj (Nitroglyceri (06/11/16 19:30) Aspirin Chew (Aspirin Chew) (06/11/16 20:15) Admit Order (Ed Use Only) (06/11/16 ) Consult Cardiology (06/11/16 ) Bedside Glucose WILFRED.AC&HS (06/11/16 20:55) ^ Blood Glucose Goal (Criteria (06/11/16 20:55) ^ Hypoglycemia 51 - 69 Mg/Dl (06/11/16 20:55) ^ Hypoglycemia 50 Mg/Dl Or < (06/11/16 20:55) ^ Notify Dr: Other (06/11/16 20:55) Dextrose 50% In Dhruv (Vial) Inj (D50w (Vi (06/11/16 21:00) Glucagon Inj (Glucagon Inj) (06/11/16 21:00) Insulin Aspart Supplemtl Scale (Novolog (06/11/16 21:00) Admit To Inpatient (06/11/16 ) Vital Signs (Adult) Q4H (06/11/16 20:55) Activity Oob With Assistance (06/11/16 20:55) ^ Counter Cutter / Telemetry .CONTINUOUS (06/11/16 20:55) Intake + Output WILFRED.QSHIFT (06/11/16 20:55) Diet 1800 Ada Cons Carb (06/12/16 Breakfast) Sodium Chloride 0.9% Flush (Ns Flush) (06/11/16 21:00) Sodium Chloride 0.9% Flush (Ns Flush) (06/11/16 21:00) Ondansetron Inj (Zofran Inj) (06/11/16 21:00) Bisacodyl Supp (Dulcolax Supp) (06/11/16 21:00) Comprehensive Metabolic Panel (06/12/16 06:00) Complete Blood Count With Diff (06/12/16 06:00) Troponin I (06/12/16 00:00) Troponin I (06/12/16 06:00) Pharmacologic Contraindication (06/11/16 20:55) Acetaminophen (Tylenol) (06/11/16 21:00) Acetamin-Hydrocod 325-5 Mg (Ursa 5-325 (06/11/16 21:00) Morphine Inj (Morphine Inj) (06/11/16 21:00) Inpatient Certification (06/11/16 ) Alprazolam (Xanax) (06/11/16 21:00) Aspirin Chew (Aspirin Chew) (06/12/16 09:00) Atorvastatin (Lipitor) (06/11/16 21:00) Diltiazem (Cardizem) (06/11/16 21:00) Duloxetine (Delbert Menard) (06/12/16 09:00) Fenofibrate (Tricor) (06/11/16 21:00) Levothyroxine (Synthroid) (06/12/16 06:00) Multivitamins-Minerals Therap (Theragran (06/12/16 09:00) Pantoprazole (Protonix) (06/12/16 09:00) Trazodone (Desyrel) (06/11/16 21:00) (Hub Use Only)Inp Phy Cons/Ref (06/11/16 ) Bumetanide Inj (Bumex Inj) (06/12/16 09:00) Insulin Detemir Inj (Levemir Inj) (06/11/16 22:00) Rivaroxaban (Xarelto) (06/12/16 09:00) Labs Laboratory Tests Test 06/11/16 19:05 White Blood Count 7.9 TH/MM3 Red Blood Count 4.44 MIL/MM3 Hemoglobin 9.8 GM/DL Hematocrit 32.2 % Mean Corpuscular Volume 72.4 FL Mean Corpuscular Hemoglobin 22.0 PG Mean Corpuscular Hemoglobin 30.4 % Concent Red Cell Distribution Width 16.9 % Platelet Count 446 TH/MM3 Mean Platelet Volume 8.6 FL Neutrophils (%) (Auto) 80.6 % Lymphocytes (%) (Auto) 10.7 % Monocytes (%) (Auto) 6.8 % Eosinophils (%) (Auto) 1.0 % Basophils (%) (Auto) 0.9 % Neutrophils # (Auto) 6.3 TH/MM3 Lymphocytes # (Auto) 0.8 TH/MM3 Monocytes # (Auto) 0.5 TH/MM3 Eosinophils # (Auto) 0.1 TH/MM3 Basophils # (Auto) 0.1 TH/MM3 CBC Comment AUTO DIFF Differential Comment AUTO DIFF CONFIRMED Tear Drop Cells 1+ Ovalocytes 1+ Keratocytes 1+ Sodium Level 137 MEQ/L Potassium Level 4.3 MEQ/L Chloride Level 101 MEQ/L Carbon Dioxide Level 26.8 MEQ/L Anion Gap 9 MEQ/L Blood Urea Nitrogen 29 MG/DL Creatinine 1.45 MG/DL Estimat Glomerular Filtration 35 ML/MIN Rate Random Glucose 193 MG/DL Calcium Level 8.8 MG/DL Troponin I 0.18 NG/ML B-Type Natriuretic Peptide 409 PG/ML MDM Supervised Visit with MIKE: No Narrative Course Labs show an elevation in her creatinine. Patient started on nitro drip as her blood pressure is quite elevated and she is having a CHF exacerbation with acute pulmonary edema. Diuretics held for now due to patient's worsening creatinine. Patient admitted for further management. Diagnosis Primary Impression: CHF exacerbation Qualified Code: I50.9 - Acute on chronic congestive heart failure, unspecified congestive heart failure type Additional Impressions: Dyspnea Qualified Code: R06.02 - Shortness of breath Pleural effusion Hypoxia Yudith Vargas MD Jun 14, 2016 12:13
--- NOTE | 2016-06-14 13:03 | HHI.PR ---
Subjective Remarks Follow-up uncontrolled hypertension/CHF exacerbation 06/12/16-patient seen and examined, still complain of some shortness of breath however states he has improved since admission. Denies any chest pain. Also complains of bilateral lower extremity swelling. 06/13/16-patient seen and examined; although improved however patient is still with some mild dyspnea. Denies any chest pain. BP improving. 06/14/16-patient seen and examined; reports slow improvement but still with exertional dyspnea. Denies any chest pain Objective Vitals Vital Signs Date Time Temp Pulse Resp B/P Pulse Ox O2 Delivery O2 Flow Rate FiO2 06/14/16 06:00 Nasal Cannula 3.00 06/14/16 05:31 58 145/68 06/14/16 04:08 98.2 89 21 170/77 95 06/13/16 23:45 98.1 63 22 159/79 94 06/13/16 20:00 Nasal Cannula 3.00 06/13/16 20:00 98.3 61 16 157/81 97 06/13/16 18:00 58 06/13/16 17:00 61 06/13/16 16:00 62 06/13/16 15:00 60 06/13/16 15:00 97.5 73 18 144/77 96 06/13/16 14:00 60 I/O 06/13/16 06/13/16 06/13/16 06/14/16 06/14/16 06/14/16 07:00 15:00 23:00 07:00 15:00 23:00 Intake Total 420 ml 1287 ml Output Total 800 ml 600 ml 1200 ml Balance -380 ml 687 ml -1200 ml Intake Oral 320 ml 1200 ml IV Total 100 ml 87 ml Output Urine Total 800 ml 600 ml 1200 ml # Voids 5 # Bowel Movements 2 4 1 Result Diagram: 06/13/16 0341 06/13/16 0341 Objective Remarks GENERAL: NAD SKIN: Warm and dry. HEAD: Normocephalic. EYES: No scleral icterus. No injection or drainage. NECK: Supple, trachea midline. No JVD or lymphadenopathy. CARDIOVASCULAR: Regular rate and rhythm without murmurs, gallops, or rubs. RESPIRATORY: Breath sounds equal bilaterally. No accessory muscle use. GASTROINTESTINAL: Abdomen soft, non-tender, nondistended. MUSCULOSKELETAL: No cyanosis; +1 edema BLE. BACK: Nontender without obvious deformity. No CVA tenderness. A/P Problem List: (1) CHF (congestive heart failure) ICD Code: I50.9 Status: Acute (2) Elevated troponin ICD Code: R79.89 Status: Acute (3) A-fib ICD Code: I48.91 Status: Acute (4) Chronic anticoagulation ICD Code: Z79.01 Status: Acute (5) JULIANE (acute kidney injury) ICD Code: N17.9 Status: Acute (6) HTN (hypertension) ICD Code: I10 Status: Acute Assessment and Plan 75-year-old female with 1. CHF: Acute on Chronic. Diastolic. Echo 03/09/16 w/ EF 55-60%. BNP 409. CXR w/ bilateral pleural effusions. Currently on Nitro gtt, Bumex IV twice a day and appreciate input from cardiology. ACS ruled out per protocol with serial cardiac enzyme and EKGs. 2. Elevated Trop: Trop 0.18. EKG w/ no acute ischemia. Likely due to CHF exacerbation. ACS ruled out per protocol with serial cardiac enzyme and EKGs. Continue home Statin, ASA. Not on B-brittney due to h/o Bradycardia. 3. A-fib: Controlled. Continue home Diltiazem. 4. Chronic Anticoagulation: On Xarelto for A-fib, 5. HTN: Norvasc added today and Continue Losartan 100 mg by mouth daily 6. JULIANE: Creatinine 1.45, previously 0.96 on 05/23/16 now improving. Monitor BUN and creatinine, caution w/ diuretics. 7. DVT Prophylaxis: On Xarelto. Rommel Stevens MD Jun 14, 2016 13:03
[2016-06-14] MEDS: INSULIN DETEMIR 100 UNITS/ML VIAL SQ SCH (21:00)
[2016-06-14] MEDS: ALPRAZolam 0.25 MG TAB PO PRN (22:00)
[2016-06-14] MEDS: ATORVASTATIN 10 MG TAB PO SCH (22:01)
[2016-06-14] MEDS: traZODone HCL 50 MG TAB PO SCH (22:02)
[2016-06-14] MEDS: FENOFIBRATE 145 MG TAB PO SCH (22:02)
[2016-06-15] VITALS (25 sets, daily range): BP systolic 140–182; BP diastolic 58–81; PULSE 64–96; RESP 16–20; TEMP 98.3–99; O2SAT 88–98
[2016-06-15] MEDS: DILTIAZEM HCL 90 MG TAB PO SCH ×4 (03:45→20:38)
[2016-06-15] MEDS ORDERED: cloNIDine HCL 0.1 MG TAB PO ONE (04:15)
[2016-06-15] MEDS: LEVOTHYROXINE SODIUM 150 MCG TAB PO SCH (06:10)
[2016-06-15] MEDS: INSULIN ASPART SUPPLEMENTAL SCALE SQ SCH ×4 (06:17→20:39)
--- NOTE | 2016-06-15 08:25 | PD.CARD.PN ---
Subjective Subjective Remarks Pt reports still with SHOB Objective Medications Current Medications Medications (Trade) Dose Ordered Sig/Seema Route Start Time Stop Time Status Last Admin (Nitroglycerin-Dextrose Inj) 250 ml @ 0 mls/hr TITRATE IV 06/11/16 19:30 06/13/16 19:24 (D50w (Vial) Inj) 25 ml UNSCH PRN IV PUSH 06/11/16 21:00 (Glucagon Inj) 1 mg UNSCH PRN OTHER 06/11/16 21:00 (NS Flush) 2 ml UNSCH PRN FLUSH 06/11/16 21:00 06/14/16 17:46 (NS Flush) 2 ml BID FLUSH 06/11/16 21:00 06/14/16 22:03 (Zofran Inj) 4 mg Q6H PRN IVP 06/11/16 21:00 (Dulcolax Supp) 10 mg DAILY PRN PA 06/11/16 21:00 (Tylenol) 650 mg Q6H PRN PO 06/11/16 21:00 ([place] 5-325 Mg) 1 tab Q4H PRN PO 06/11/16 21:00 (Morphine Inj) 4 mg Q3H PRN IV 06/11/16 21:00 (Xanax) 0.25 mg Q8HR PRN PO 06/11/16 21:00 06/14/16 22:00 (Aspirin Chew) 81 mg DAILY PO 06/12/16 09:00 06/14/16 08:30 (Lipitor) 10 mg HS PO 06/11/16 21:00 06/14/16 22:01 (Cardizem) 90 mg Q6H PO 06/11/16 21:00 06/15/16 03:45 (Cymbalta Dr) 120 mg DAILY PO 06/12/16 09:00 06/14/16 08:29 (Tricor) 145 mg HS PO 06/11/16 21:00 06/14/16 22:02 (Levemir Inj) 17 units HS SQ 06/11/16 22:00 06/14/16 21:00 (Synthroid) 150 mcg DAILY@0600 PO 06/12/16 06:00 06/15/16 06:10 (Theragran M Tab) 1 tab DAILY PO 06/12/16 09:00 06/14/16 08:30 (Protonix) 40 mg DAILY PO 06/12/16 09:00 06/14/16 08:29 (Xarelto) 15 mg DAILY PO 06/12/16 09:00 06/14/16 08:30 (Desyrel) 50 mg HS PO 06/11/16 21:00 06/14/16 22:02 (Bumex Inj) 1 mg BID@09,18 IV PUSH 06/12/16 09:00 06/14/16 17:45 (Cozaar) 100 mg DAILY PO 06/13/16 12:00 06/14/16 08:30 (Norvasc) 5 mg DAILY PO 06/14/16 10:45 06/14/16 10:47 Vital Signs / I&O Vital Signs Date Time Temp Pulse Resp B/P Pulse Ox O2 Delivery O2 Flow Rate FiO2 06/15/16 06:00 78 06/15/16 05:00 75 06/15/16 04:00 85 06/15/16 03:00 98.6 84 20 182/81 93 06/15/16 03:00 84 06/15/16 02:00 84 06/15/16 01:10 81 06/15/16 00:00 78 06/14/16 23:00 74 06/14/16 23:00 98.6 79 18 169/79 96 06/14/16 22:00 76 06/14/16 21:00 72 06/14/16 20:00 72 06/14/16 19:00 74 06/14/16 19:00 99.0 74 18 162/71 96 06/14/16 19:00 96 Nasal Cannula 3.00 06/14/16 18:00 82 06/14/16 17:00 85 06/14/16 16:00 80 06/14/16 15:00 98.4 68 19 143/70 92 06/14/16 15:00 84 06/14/16 14:00 69 06/14/16 13:00 68 06/14/16 12:00 63 06/14/16 11:30 98.1 54 20 134/67 93 06/14/16 11:00 66 06/14/16 10:48 138/76 06/14/16 10:00 68 06/14/16 09:00 68 I/O 06/14/16 06/14/16 06/14/16 06/15/16 06/15/16 06/15/16 07:00 15:00 23:00 07:00 15:00 23:00 Intake Total 720 ml 240 ml Output Total 1200 ml 1100 ml Balance -1200 ml 720 ml -860 ml Intake Oral 720 ml 240 ml Output Urine Total 1200 ml 1100 ml # Voids 6 # Bowel Movements 1 1 0 Physical Exam GENERAL: Well developed, well nourished. No acute distress. HEENT: Jugular venous pressure is normal. CHEST: Lungs rales in bases to auscultation bilaterally. Unlabored respiratory effort. CARDIAC: irregular rate and rhythm without S3, S4, or murmur. ABDOMEN: Soft, nontender, no hepatosplenomegaly. Bowel sounds present. EXTREMITIES: No clubbing, cyanosis, trace edema. Assessment and Plan Problem List: (1) CHF (congestive heart failure) Assessment and Plan: agree with change to PO will check an ECHO as she has not had any EF eval since her CABG in Feb 2016 (2) Dyspnea Assessment and Plan: agree multifactorial- anemia, HTN/CHF, COPD - consider PFT's and follow up CXR - consider pulm consult (3) A-fib Assessment and Plan: rate controlled, on xarelto (4) Elevated troponin Assessment and Plan: Likely due to chf/ pattern not c/w ACS (5) Hypertension (6) Coronary artery disease Assessment and Plan: CABG Feb 2016: RUSH-LAD, SVG - OM, PDA seemingly stable Problem Qualifiers (1) Dyspnea: Qualified Code: R06.02 - Shortness of breath Holli Roth MD Jun 15, 2016 08:24
[2016-06-15] MEDS: BUMETANIDE INJ 1 MG/4 ML VIAL IV PUSH SCH (08:37)
[2016-06-15] MEDS: SODIUM CHLORIDE 0.9% FLUSH 5 ML FLUSH FLUSH SCH ×2 (08:37→20:39)
[2016-06-15] MEDS: DULoxetine HCl DR 60 MG CAP PO SCH (08:38)
[2016-06-15] MEDS: amLODIPine BESYLATE 5 MG TAB PO SCH (08:38)
[2016-06-15] MEDS: MULTIVITAMINS/MINERALS THERAPEUTIC TAB PO SCH (08:38)
[2016-06-15] MEDS: ASPIRIN 81 MG CHEW TAB PO SCH (08:40)
[2016-06-15] MEDS: LOSARTAN 50 MG TAB PO SCH (08:40)
[2016-06-15] MEDS: RIVAROXABAN 15 MG TAB PO SCH (08:40)
[2016-06-15] MEDS: PANTOPRAZOLE SOD 40 MG DELAYED RELEASE TAB PO SCH (08:46)
[2016-06-15] MEDS: BUMETANIDE 1 MG TAB PO SCH ×2 (08:52→17:25)
[2016-06-15] MEDS: POTASSIUM CHLORIDE 20 MEQ CONTROLLED RELEASE TAB PO SCH ×2 (08:55→20:39)
[2016-06-15] MEDS ORDERED: POTASSIUM CHLORIDE 20 MEQ CONTROLLED RELEASE TAB PO SCH (09:00)
[2016-06-15] MEDS ORDERED: RESP: ALBUTEROL 2.5 MG/IPRATROPIUM 0.5 MG NEB (PRN) NEB (09:00)
[2016-06-15] MEDS ORDERED: BUMETANIDE 1 MG TAB PO SCH (09:00)
--- NOTE | 2016-06-15 09:01 | HHI.PR ---
Subjective Remarks Follow-up uncontrolled hypertension/CHF exacerbation 06/12/16-patient seen and examined, still complain of some shortness of breath however states he has improved since admission. Denies any chest pain. Also complains of bilateral lower extremity swelling. 06/13/16-patient seen and examined; although improved however patient is still with some mild dyspnea. Denies any chest pain. BP improving. 06/14/16-patient seen and examined; reports slow improvement but still with exertional dyspnea. Denies any chest pain 06/15/16-patient seen and examined; Continues to be short of breath; denies any chest pain Objective Vitals Vital Signs Date Time Temp Pulse Resp B/P Pulse Ox O2 Delivery O2 Flow Rate FiO2 06/15/16 06:00 78 06/15/16 05:00 75 06/15/16 04:00 85 06/15/16 03:00 98.6 84 20 182/81 93 06/15/16 03:00 84 06/15/16 02:00 84 06/15/16 01:10 81 06/15/16 00:00 78 06/14/16 23:00 74 06/14/16 23:00 98.6 79 18 169/79 96 06/14/16 22:00 76 06/14/16 21:00 72 06/14/16 20:00 72 06/14/16 19:00 74 06/14/16 19:00 99.0 74 18 162/71 96 06/14/16 19:00 96 Nasal Cannula 3.00 06/14/16 18:00 82 06/14/16 17:00 85 06/14/16 16:00 80 06/14/16 15:00 98.4 68 19 143/70 92 06/14/16 15:00 84 06/14/16 14:00 69 06/14/16 13:00 68 06/14/16 12:00 63 06/14/16 11:30 98.1 54 20 134/67 93 06/14/16 11:00 66 06/14/16 10:48 138/76 06/14/16 10:00 68 06/14/16 09:00 68 I/O 06/14/16 06/14/16 06/14/16 06/15/16 06/15/16 06/15/16 07:00 15:00 23:00 07:00 15:00 23:00 Intake Total 720 ml 240 ml Output Total 1200 ml 1100 ml Balance -1200 ml 720 ml -860 ml Intake Oral 720 ml 240 ml Output Urine Total 1200 ml 1100 ml # Voids 6 # Bowel Movements 1 1 0 Result Diagram: 06/13/16 0341 06/13/16 0341 Imaging Last Impressions Chest X-Ray 06/11/16 1752 Signed Impressions: Service Date/Time: Saturday, June 11, 2016 18:02 - CONCLUSION: 1. Status post sternotomy. The heart size is upper limits of normal. 2. Increased density at the bases bilaterally likely representing a combination of atelectasis, consolidation and mild effusions. Mango Sheth MD Objective Remarks GENERAL: NAD SKIN: Warm and dry. HEAD: Normocephalic. EYES: No scleral icterus. No injection or drainage. NECK: Supple, trachea midline. No JVD or lymphadenopathy. CARDIOVASCULAR: Regular rate and rhythm without murmurs, gallops, or rubs. RESPIRATORY: Breath sounds equal bilaterally. No accessory muscle use. GASTROINTESTINAL: Abdomen soft, non-tender, nondistended. MUSCULOSKELETAL: No cyanosis; +1 edema BLE. BACK: Nontender without obvious deformity. No CVA tenderness. A/P Problem List: (1) CHF (congestive heart failure) ICD Code: I50.9 Status: Acute (2) Elevated troponin ICD Code: R79.89 Status: Acute (3) A-fib ICD Code: I48.91 Status: Acute (4) Chronic anticoagulation ICD Code: Z79.01 Status: Acute (5) JULIANE (acute kidney injury) ICD Code: N17.9 Status: Acute (6) HTN (hypertension) ICD Code: I10 Status: Acute Assessment and Plan 75-year-old female with 1. CHF: Acute on Chronic. Diastolic. Echo 03/09/16 w/ EF 55-60%. BNP 409. CXR w/ bilateral pleural effusions. s/p Nitro gtt,change Bumex to PO twice a day and appreciate input from cardiology. ACS ruled out per protocol with serial cardiac enzyme and EKGs. 2-D echo pending 2. Elevated Trop: Trop 0.18. EKG w/ no acute ischemia. Likely due to CHF exacerbation. ACS ruled out per protocol with serial cardiac enzyme and EKGs. Continue home Statin, ASA. Not on B-brittney due to h/o Bradycardia. 3. A-fib: Controlled. Continue home Diltiazem. 4. Chronic Anticoagulation: On Xarelto for A-fib, 5. HTN: Norvasc and Losartan 100 mg by mouth daily 6. JULIANE: Creatinine 1.45, previously 0.96 on 05/23/16 now improving. Monitor BUN and creatinine, caution w/ diuretics. 7. DVT Prophylaxis: On Xarelto. 8. Dyspnea: Check PA and lateral, consult pulmonary medicine patient may need PFTs. Rommel Page MD Jun 15, 2016 09:01
--- NOTE | 2016-06-15 12:46 | RADRPT ---
EXAM DATE/TIME: 06/15/2016 11:31 [facility] COMPARISON: CHEST SINGLE AP, June 11, 2016, 18:02. INDICATIONS: Short of breath MEDICAL HISTORY: Cardiovascular disease. SURGICAL HISTORY: CABG. Gastric bypass. ENCOUNTER: Initial ACUITY: 1 week PAIN SCORE: 0/10 LOCATION: Chest FINDINGS: The patient is status post sternotomy. The cardiac silhouette appears enlarged. There is increased density at the bases bilaterally. There is some prominence of the interstitium throughout. CONCLUSION: 1. Suspected bilateral pleural effusions. 2. Cardiomegaly. 3. Prominence of the interstitium which likely represents some degree of pulmonary venous hypertensi on and mild edema. Mango Sheth MD on June 15, 2016 at 12:37 Board Certified Radiologist. This report was verified electronically.
--- NOTE | 2016-06-15 15:50 | RADRPT ---
EXAM DATE/TIME: 06/15/2016 14:19 [facility] COMPARISON: No previous studies available for comparison. EXTERNAL COMPARISON : [facility], CHEST- PA & LAT, February 27, 2016 INDICATIONS : Effusion. MEDICAL HISTORY : Hypothyroidism. Hypercholesterolemia. Hypertension. A-fib. COPD. Pneumonia. D yspnea. Wheezing. Gastrointestinal disorders. SURGICAL HISTORY : Triple bypass. Gastric bypass. ENCOUNTER: Initial ACUITY: 1 day PAIN SCORE: 0/10 LOCATION: Right chest MEASUREMENTS: SKIN TO PARIETAL PLEURA: 1.7 cm SKIN TO MAX SAFE DEPTH: 4.5 cm ESTIMATED FLUID VOLUME: 969 cc FLUID COMPOSITION: simple FINDINGS: Pleural effusion as above. A deepti was placed on the skin surface superficial to the pleural fluid col lection. CONCLUSION: Moderate size right pleural effusion marked for thoracentesis. Kingston Do MD on June 15, 2016 at 15:48 Board Certified Radiologist. This report was verified electronically.
--- NOTE | 2016-06-15 15:51 | RADRPT ---
EXAM DATE/TIME: 06/15/2016 14:27 [facility] COMPARISON: No previous studies available for comparison. EXTERNAL COMPARISON : [facility], CHEST- PA & LAT, February 27, 2016 INDICATIONS : Effusion. MEDICAL HISTORY : Hypothyroidism. Myocardial infarction. Hypercholesterolemia. Hypertension. A-fib. COPD. Pneumonia. Dy spnea. Wheezing. Gastrointestinal disorders. SURGICAL HISTORY : Triple bypass. Gastric bypass. ENCOUNTER: Initial ACUITY: 1 day PAIN SCORE: 0/10 LOCATION: Left chest. MEASUREMENTS: SKIN TO PARIETAL PLEURA: 2.7 cm SKIN TO MAX SAFE DEPTH: 4.9 cm ESTIMATED FLUID VOLUME: 784 cc FLUID COMPOSITION: simple FINDINGS: Pleural effusion as above. A deepti was placed on the skin surface superficial to the pleural fluid col lection. CONCLUSION: Moderate-sized left pleural effusion marked for thoracentesis. Kingston Do MD on June 15, 2016 at 15:49 Board Certified Radiologist. This report was verified electronically.
--- NOTE | 2016-06-15 19:04 | EC ---
Study Study Date:06/15/2016 STUDY CONCLUSIONS SUMMARY - Left ventricle: The cavity size was normal. Wall thickness was normal. Systolic function was normal. The estimated ejection fraction was in the range of 50% to 55%. Wall motion was normal; there were no regional wall motion abnormalities. - Mitral valve: Severe regurgitation. - Left atrium: The atrium was severely dilated. - Tricuspid valve: Moderate-severe regurgitation. - Pulmonary arteries: PA peak pressure: 73mm Hg (S). - Pericardium, extracardiac: There was a left pleural effusion. If LV function is below 40, please consider prescribing an ACEI or ARB or document rationale for non-use. PROCEDURE DATA STUDY STATUS: Elective. Procedure: Transthoracic echocardiography. Image quality was good. Scanning was performed from the parasternal, apical, and subcostal acoustic windows. Study completion: The patient tolerated the procedure well. Transthoracic echocardiography. M-mode, complete 2D, complete spectral Doppler, and color Doppler. Patient status: Inpatient. CARDIAC ANATOMY LEFT VENTRICLE: The cavity size was normal. Wall thickness was normal. Systolic function was normal. The estimated ejection fraction was in the range of 50% to 55%. Wall motion was normal; there were no regional wall motion abnormalities. AORTIC VALVE: Trileaflet; normal thickness leaflets. Doppler: Transvalvular velocity was within the normal range. There was no stenosis. No regurgitation. Mean gradient: 11mm Hg (S). Peak gradient: 26mm Hg (S). AORTA: Aortic root: The aortic root was normal in size. MITRAL VALVE: Structurally normal valve. Doppler: Transvalvular velocity was within the normal range. There was no evidence for stenosis. Severe regurgitation. Mean gradient: 6mm Hg (D). Peak gradient: 28mm Hg (D). LEFT ATRIUM: The atrium was severely dilated. RIGHT VENTRICLE: The cavity size was normal. Wall thickness was normal. PULMONIC VALVE: Doppler: Transvalvular velocity was within the normal range. There was no evidence for stenosis. No regurgitation. TRICUSPID VALVE: Structurally normal valve. Doppler: Transvalvular velocity was within the normal range. Moderate-severe regurgitation. PULMONARY ARTERY: The main pulmonary artery was normal-sized. Systolic pressure was within the normal range. RIGHT ATRIUM: The atrium was normal in size. PERICARDIUM: There was no pericardial effusion. SYSTEMIC VEINS: Inferior vena cava: The vessel was normal in size. Pleura: There was a left pleural effusion. BASIC MEASUREMENTS ADULT Normal Left ventricle LV internal dimension, ED, chordal level, 44 mm 43-52 PLAX LV posterior wall thickness, ED 7.53 mm IVS/LVPW ratio, ED *1.42 <1.3 Ventricular septum Septal thickness, ED 10.7 mm Aortic valve Leaflet separation 20 mm 15-26 Left atrium Anterior-posterior dimension 46 mm Right ventricle RV internal dimension, ED, PLAX 28.7 mm 19-38 BASIC MEASUREMENTS ADULT Normal Aortic valve Leaflet separation 20 mm 15-26 Aorta Root diameter, ED 26 mm 20-37 DOPPLER MEASUREMENTS ADULT Normal Main pulmonary artery Pressure, S *73 mm Hg =30 Aortic valve Peak velocity, S 255 cm/s Mean velocity, S 145 cm/s VTI, S 71.2 cm Mean gradient, S 11 mm Hg Peak gradient, S 26 mm Hg Mitral valve Peak E-wave velocity 163 cm/s Peak A-wave velocity 57.3 cm/s Mean velocity, D 96.1 cm/s Mean gradient, D 6 mm Hg Peak gradient, D 28 mm Hg Peak E/A ratio 2.8 Maximal regurgitant velocity 556 cm/s Tricuspid valve Regurgitant peak velocity 371 cm/s Peak RV-RA gradient, S 55 mm Hg Maximal regurgitant velocity 371 cm/s Systemic veins Estimated CVP 10 mm Hg Right ventricle RV pressure, S *73 mm Hg <30 LEGEND: Mean values are shown as u=mean value. Asterisk (*) mott values outside specified normal range. Prepared and signed by Harsh Mckeon [id number]
[2016-06-15] MEDS: ALPRAZolam 0.25 MG TAB PO PRN (20:38)
[2016-06-15] MEDS: ATORVASTATIN 10 MG TAB PO SCH (20:38)
[2016-06-15] MEDS: INSULIN DETEMIR 100 UNITS/ML VIAL SQ SCH (20:39)
[2016-06-15] MEDS: FENOFIBRATE 145 MG TAB PO SCH (20:39)
[2016-06-15] MEDS: traZODone HCL 50 MG TAB PO SCH (20:40)
[2016-06-15] MEDS: BUDESONIDE-FORMOTEROL 160/4.5 MCG INHALER INH SCH (21:00)
--- NOTE | 2016-06-15 23:29 | MB ---
cc: JENNI PALOMO JOHN DATE OF CONSULTATION: 06/15/2016 REQUESTING PHYSICIAN: Dr. Palomo REASON FOR CONSULTATION: Respiratory distress and COPD. HISTORY OF PRESENT ILLNESS This is a 75-year-old overweight white female who was initially admitted for shortness of breath, also has had a cough with mild wheezing. The patient has a history of coronary artery disease and has had coronary artery bypass grafting in February, has been treated for CHF and chronic atrial fibrillation, as well as diabetes mellitus. Upon admission the patient was in atrial fibrillation. She has had no chest pain, denies night sweats or fevers, did have a cough and brings up a little whitish yellow mucous. She was placed on oxygen at 2 to 3 liters. A chest x-ray showed evidence of basilar consolidation with small effusions. The white count was mildly elevated. PAST HISTORY 1. Hypertension. 2. Diabetes 3. CHF 4. Atrial fibrillation 5. History of CABG x3 6. History of gastric bypass surgery remotely. 7. Past history of bilateral cataract repair. ALLERGIES ERYTHROMYCIN, PENICILLIN, LASIX HABITS The patient smoked two to three packs per day for 30 years and then quit. No alcohol use. FAMILY HISTORY Noncontributory REVIEW OF SYSTEMS The patient is overweight. She has headaches and postnasal drip, epigastric distress. No nausea or vomiting. She has urinary frequency. No dysuria or flank pain. No leg or calf muscle pain. She has some joint pain with her extremities. PHYSICAL EXAMINATION This is an elderly moderately overweight white female who is pale and in no acute distress. There is no icterus or peripheral edema. VITAL SIGNS: Blood pressure is 170/90, pulse 68, respiratory rate 18, temperature 97.8. HEENT: Head normocephalic. Pupils reactive. Tongue is dry. Throat is clear. Nasal mucosa injected. Neck: Supple. No bruits or thyroid enlargement. No lymphadenopathy. Chest: Equal movements with few fine basilar crackles more on the right side. No definite wheeze. Heart: The heart sounds are irregular S1-S2. No murmur. The abdomen is soft, benign. No masses or organomegaly. Extremities: 2+ edema with diminished pulses. Reflexes are 1+ with no gross motor deficits. Cranial nerves grossly intact. Rectal: Exam is deferred. Skin: No lesions. IMPRESSION: 1. CHF with cardiomyopathy. 2. History of atrial fibrillation. 3. Acute kidney injury, resolving. 4. Hypertension. 5. COPD with chronic bronchitis. PLAN The patient has been placed on O2 at 2 liters and bedside pulmonary function study to be done, blood gases will be done. The patient will be placed on Symbicort 160/4.5, two puffs b.i.d. DuoNeb t.i.d. CT scan of the chest will be obtained. We advise her to give a sputum sample if possible. Continue with antibiotic coverage for pneumonia and anticoagulation as well. Diuretic therapy used cautiously. Thank you Dr. Palomo for this consultation. MD HOMERO Rojas/JUANJOSE /10:53 PM /11:18 PM
[2016-06-16] VITALS (28 sets, daily range): BP systolic 129–169; BP diastolic 47–95; PULSE 66–96; RESP 16–22; TEMP 97.8–99; O2SAT 91–100
[2016-06-16] MEDS: DILTIAZEM HCL 90 MG TAB PO SCH ×4 (03:00→20:53)
[2016-06-16] MEDS: LEVOTHYROXINE SODIUM 150 MCG TAB PO SCH (05:00)
[2016-06-16 06:48] LABS: AUTOMATED NEUTROPHIL # 7.7 TH/MM3 (1.8-7.7); BASOPHIL % 0.4 % (0.0-2.0); EOSINOPHIL # 0.1 TH/MM3 (0-0.4); EOSINOPHIL % 1.1 % (0.0-4.0); HEMATOCRIT 26.2 % (35.0-46.0); LYMPH % 8.5 % (9.0-44.0); LYMPHOCYTE # 0.8 TH/MM3 (1.0-4.8); MEAN CELL VOLUME 70.8 FL (80.0-100.0); MEAN CORPUSCULAR HEMOGLOBIN 22.1 PG (27.0-34.0); MEAN CORPUSCULAR HGB CONC 31.3 % (32.0-36.0); MONO % 9.1 % (0.0-8.0); NEUT % 80.9 % (16.0-70.0); PLATELET COUNT 426 TH/MM3 (150-450); RED BLOOD COUNT 3.71 MIL/MM3 (4.00-5.30); RED CELL DISTRIBUTION WIDTH 16.9 % (11.6-17.2); WHITE BLOOD COUNT 9.5 TH/MM3 (4.0-11.0)
[2016-06-16 06:54] LABS: HEMO FLAGS AUTO DIFF
[2016-06-16 06:55] LABS: BICARBONATE 36.5 MEQ/L (21.0-32.0); POTASSIUM 3.6 MEQ/L (3.5-5.1)
[2016-06-16] MEDS: INSULIN ASPART SUPPLEMENTAL SCALE SQ SCH ×4 (07:00→20:52)
--- NOTE | 2016-06-16 07:43 | PD.CARD.PN ---
Subjective Subjective Remarks Pt reports SHOB Objective Medications Current Medications Medications (Trade) Dose Ordered Sig/Seema Route Start Time Stop Time Status Last Admin (Nitroglycerin-Dextrose Inj) 250 ml @ 0 mls/hr TITRATE IV 06/11/16 19:30 06/13/16 19:24 (D50w (Vial) Inj) 25 ml UNSCH PRN IV PUSH 06/11/16 21:00 (Glucagon Inj) 1 mg UNSCH PRN OTHER 06/11/16 21:00 (NS Flush) 2 ml UNSCH PRN FLUSH 06/11/16 21:00 06/14/16 17:46 (NS Flush) 2 ml BID FLUSH 06/11/16 21:00 06/15/16 20:39 (Zofran Inj) 4 mg Q6H PRN IVP 06/11/16 21:00 (Dulcolax Supp) 10 mg DAILY PRN PA 06/11/16 21:00 (Tylenol) 650 mg Q6H PRN PO 06/11/16 21:00 ([place] 5-325 Mg) 1 tab Q4H PRN PO 06/11/16 21:00 (Morphine Inj) 4 mg Q3H PRN IV 06/11/16 21:00 (Xanax) 0.25 mg Q8HR PRN PO 06/11/16 21:00 06/15/16 20:38 (Aspirin Chew) 81 mg DAILY PO 06/12/16 09:00 06/15/16 08:40 (Lipitor) 10 mg HS PO 06/11/16 21:00 06/15/16 20:38 (Cardizem) 90 mg Q6H PO 06/11/16 21:00 06/16/16 03:00 (Cymbalta Dr) 120 mg DAILY PO 06/12/16 09:00 06/15/16 08:38 (Tricor) 145 mg HS PO 06/11/16 21:00 06/15/16 20:39 (Levemir Inj) 17 units HS SQ 06/11/16 22:00 06/15/16 20:39 (Synthroid) 150 mcg DAILY@0600 PO 06/12/16 06:00 06/16/16 05:00 (Theragran M Tab) 1 tab DAILY PO 06/12/16 09:00 06/15/16 08:38 (Protonix) 40 mg DAILY PO 06/12/16 09:00 06/15/16 08:46 (Xarelto) 15 mg DAILY PO 06/12/16 09:00 06/15/16 08:40 (Desyrel) 50 mg HS PO 06/11/16 21:00 06/15/16 20:40 (Cozaar) 100 mg DAILY PO 06/13/16 12:00 06/15/16 08:40 (Norvasc) 5 mg DAILY PO 06/14/16 10:45 06/15/16 08:38 (Bumetanide) 1 mg BID@,18 PO 06/15/16 09:00 06/15/16 17:25 (KCl) 20 meq Q12HR PO 06/15/16 09:00 06/15/16 20:39 (Symbicort 160-4.5 Inh) 2 puff Q12HR INH 06/15/16 21:00 06/15/16 21:00 Vital Signs / I&O Vital Signs Date Time Temp Pulse Resp B/P Pulse Ox O2 Delivery O2 Flow Rate FiO2 06/16/16 06:00 74 06/16/16 05:00 96 06/16/16 04:00 79 06/16/16 03:00 98.3 78 20 145/95 95 06/16/16 03:00 70 06/16/16 02:00 80 06/16/16 01:00 71 06/16/16 00:00 71 06/15/16 23:38 88 Nasal Cannula 4.00 06/15/16 23:00 99.0 66 16 154/58 91 06/15/16 23:00 70 06/15/16 21:00 67 06/15/16 20:00 78 06/15/16 19:00 66 06/15/16 19:00 92 3.00 06/15/16 19:00 98.3 75 16 175/81 98 06/15/16 18:03 88 06/15/16 17:00 81 06/15/16 16:00 75 06/15/16 15:05 98.8 71 20 165/75 93 06/15/16 15:00 72 06/15/16 14:00 70 06/15/16 13:00 68 06/15/16 12:00 64 06/15/16 11:00 98.6 96 17 140/69 93 06/15/16 10:00 78 06/15/16 09:00 73 06/15/16 08:00 67 I/O 06/15/16 06/15/16 06/15/16 06/16/16 06/16/16 06/16/16 07:00 15:00 23:00 07:00 15:00 23:00 Intake Total 240 ml 480 ml 360 ml Output Total 1100 ml 900 ml 900 ml Balance -860 ml -420 ml -540 ml Intake Oral 240 ml 480 ml 360 ml Output Urine Total 1100 ml 900 ml 900 ml # Bowel Movements 0 1 0 Physical Exam GENERAL: Well developed, well nourished. No acute distress. HEENT: Jugular venous pressure is normal. CHEST: Lungs decreased in bases to auscultation bilaterally. Unlabored respiratory effort. CARDIAC: irregular rate and rhythm without S3, S4, or murmur. ABDOMEN: Soft, nontender, no hepatosplenomegaly. Bowel sounds present. EXTREMITIES: No clubbing, cyanosis, trace edema. Laboratory Laboratory Tests Test 06/16/16 05:50 White Blood Count 9.5 TH/MM3 Red Blood Count 3.71 MIL/MM3 Hemoglobin 8.2 GM/DL Hematocrit 26.2 % Mean Corpuscular Volume 70.8 FL Mean Corpuscular Hemoglobin 22.1 PG Mean Corpuscular Hemoglobin 31.3 % Concent Red Cell Distribution Width 16.9 % Platelet Count 426 TH/MM3 Mean Platelet Volume 8.7 FL Neutrophils (%) (Auto) 80.9 % Lymphocytes (%) (Auto) 8.5 % Monocytes (%) (Auto) 9.1 % Eosinophils (%) (Auto) 1.1 % Basophils (%) (Auto) 0.4 % Neutrophils # (Auto) 7.7 TH/MM3 Lymphocytes # (Auto) 0.8 TH/MM3 Monocytes # (Auto) 0.9 TH/MM3 Eosinophils # (Auto) 0.1 TH/MM3 Basophils # (Auto) 0.0 TH/MM3 CBC Comment AUTO DIFF Sodium Level 141 MEQ/L Potassium Level 3.6 MEQ/L Chloride Level 99 MEQ/L Carbon Dioxide Level 36.5 MEQ/L Anion Gap 6 MEQ/L Blood Urea Nitrogen 23 MG/DL Creatinine 0.92 MG/DL Estimat Glomerular Filtration 60 ML/MIN Rate Random Glucose 82 MG/DL Calcium Level 9.0 MG/DL Imaging Last 72 hours Impressions Chest X-Ray 06/15/16 0000 Signed Impressions: Service Date/Time: Wednesday, June 15, 2016 11:31 - CONCLUSION: 1. Suspected bilateral pleural effusions. 2. Cardiomegaly. 3. Prominence of the interstitium which likely represents some degree of pulmonary venous hypertension and mild edema. Mango Sheth MD Chest Ultrasound 06/15/16 0000 Signed Impressions: Service Date/Time: Wednesday, June 15, 2016 14:19 - CONCLUSION: Moderate size right pleural effusion marked for thoracentesis. Kingston Do MD Chest Ultrasound 06/15/16 0000 Signed Impressions: Service Date/Time: Wednesday, June 15, 2016 14:27 - CONCLUSION: Moderate- sized left pleural effusion marked for thoracentesis. Kingston Do MD Assessment and Plan Problem List: (1) Pleural effusion Assessment and Plan: moderate effusions; thoracentesis if able as she is quite symptomatic (2) CHF (congestive heart failure) Assessment and Plan: ECHO with normal EF and elevated RVSP suggestive of right heart failure (3) Dyspnea Assessment and Plan: pulm consult appreciated (4) A-fib Assessment and Plan: rate controlled, stop xarelto for thoracentesis (5) Elevated troponin (6) Hypertension (7) Coronary artery disease Assessment and Plan: CABG Feb 2016: RUSH-LAD, SVG - OM, PDA seemingly stable Problem Qualifiers (1) Dyspnea: Qualified Code: R06.02 - Shortness of breath Holli Roth MD Jun 16, 2016 07:43
[2016-06-16] MEDS: SODIUM CHLORIDE 0.9% FLUSH 5 ML FLUSH FLUSH SCH ×2 (08:29→20:54)
[2016-06-16] MEDS: ASPIRIN 81 MG CHEW TAB PO SCH (08:30)
[2016-06-16] MEDS: POTASSIUM CHLORIDE 20 MEQ CONTROLLED RELEASE TAB PO SCH ×2 (08:30→20:54)
[2016-06-16] MEDS: MULTIVITAMINS/MINERALS THERAPEUTIC TAB PO SCH (08:30)
[2016-06-16] MEDS: DULoxetine HCl DR 60 MG CAP PO SCH (08:30)
[2016-06-16] MEDS: PANTOPRAZOLE SOD 40 MG DELAYED RELEASE TAB PO SCH (08:30)
[2016-06-16] MEDS: amLODIPine BESYLATE 5 MG TAB PO SCH (08:30)
[2016-06-16] MEDS: LOSARTAN 50 MG TAB PO SCH (08:30)
[2016-06-16] MEDS: BUMETANIDE 1 MG TAB PO SCH ×2 (08:31→17:37)
--- NOTE | 2016-06-16 08:38 | HHI.PR ---
Subjective Remarks Follow-up uncontrolled hypertension/CHF exacerbation 06/12/16-patient seen and examined, still complain of some shortness of breath however states he has improved since admission. Denies any chest pain. Also complains of bilateral lower extremity swelling. 06/13/16-patient seen and examined; although improved however patient is still with some mild dyspnea. Denies any chest pain. BP improving. 06/14/16-patient seen and examined; reports slow improvement but still with exertional dyspnea. Denies any chest pain 06/15/16-patient seen and examined; Continues to be short of breath; denies any chest pain 06/16/16-patient seen and examined; still with shortness of breath with minimal exertion. Bilateral chest ultrasound positive for moderate size pleural effusions. Denies any chest pain. Case discussed at bedside with black top paver operator Dr. Roth Objective Vitals Vital Signs Date Time Temp Pulse Resp B/P Pulse Ox O2 Delivery O2 Flow Rate FiO2 06/16/16 06:00 74 06/16/16 05:00 96 06/16/16 04:00 79 06/16/16 03:00 98.3 78 20 145/95 95 06/16/16 03:00 70 06/16/16 02:00 80 06/16/16 01:00 71 06/16/16 00:00 71 06/15/16 23:38 88 Nasal Cannula 4.00 06/15/16 23:00 99.0 66 16 154/58 91 06/15/16 23:00 70 06/15/16 21:00 67 06/15/16 20:00 78 06/15/16 19:00 66 06/15/16 19:00 92 3.00 06/15/16 19:00 98.3 75 16 175/81 98 06/15/16 18:03 88 06/15/16 17:00 81 06/15/16 16:00 75 06/15/16 15:05 98.8 71 20 165/75 93 06/15/16 15:00 72 06/15/16 14:00 70 06/15/16 13:00 68 06/15/16 12:00 64 06/15/16 11:00 98.6 96 17 140/69 93 06/15/16 10:00 78 06/15/16 09:00 73 I/O 06/15/16 06/15/16 06/15/16 06/16/16 06/16/16 06/16/16 07:00 15:00 23:00 07:00 15:00 23:00 Intake Total 240 ml 480 ml 360 ml Output Total 1100 ml 900 ml 900 ml Balance -860 ml -420 ml -540 ml Intake Oral 240 ml 480 ml 360 ml Output Urine Total 1100 ml 900 ml 900 ml # Bowel Movements 0 1 0 Result Diagram: 06/16/16 0550 06/16/16 0550 Imaging Last Impressions Chest X-Ray 06/15/16 0000 Signed Impressions: Service Date/Time: Wednesday, June 15, 2016 11:31 - CONCLUSION: 1. Suspected bilateral pleural effusions. 2. Cardiomegaly. 3. Prominence of the interstitium which likely represents some degree of pulmonary venous hypertension and mild edema. Mango Sheth MD Chest Ultrasound 06/15/16 0000 Signed Impressions: Service Date/Time: Wednesday, June 15, 2016 14:19 - CONCLUSION: Moderate size right pleural effusion marked for thoracentesis. Kingston Do MD Objective Remarks GENERAL: NAD SKIN: Warm and dry. HEAD: Normocephalic. EYES: No scleral icterus. No injection or drainage. NECK: Supple, trachea midline. No JVD or lymphadenopathy. CARDIOVASCULAR: Regular rate and rhythm without murmurs, gallops, or rubs. RESPIRATORY: Breath sounds decreased bilaterally. No accessory muscle use. GASTROINTESTINAL: Abdomen soft, non-tender, nondistended. MUSCULOSKELETAL: No cyanosis; +1 edema BLE. BACK: Nontender without obvious deformity. No CVA tenderness. A/P Problem List: (1) Respiratory failure, acute ICD Code: J96.00 Status: Acute (2) CHF (congestive heart failure) ICD Code: I50.9 Status: Acute (3) Elevated troponin ICD Code: R79.89 Status: Acute (4) A-fib ICD Code: I48.91 Status: Acute (5) Chronic anticoagulation ICD Code: Z79.01 Status: Acute (6) JULIANE (acute kidney injury) ICD Code: N17.9 Status: Acute (7) HTN (hypertension) ICD Code: I10 Status: Acute (8) Pleural effusion, bilateral ICD Code: J90 Status: Acute Assessment and Plan 75-year-old female with 1 . Respiratory failure: Multifactorial; pleural effusions versus CHF versus other 2. Bilateral pleural effusions: Chest ultrasound noted and review with evidence of bilateral pleural effusion. Pain for ultrasound-guided thoracentesis 06/17/16. Appreciate input from pulmonary medicine. Continue with Symbicort, Bronchodilator and Hold Xarelto 3. CHF: Acute on Chronic. Diastolic. Echo 03/09/16 w/ EF 55-60%. BNP 409. CXR w/ bilateral pleural effusions. s/p Nitro gtt, continue Bumex PO twice a day and appreciate input from cardiology. ACS ruled out per protocol with serial cardiac enzyme and EKGs. 2-D echo 50-55% 4. Elevated Trop: Trop 0.18. EKG w/ no acute ischemia. Likely due to CHF exacerbation. ACS ruled out per protocol with serial cardiac enzyme and EKGs. Continue home Statin, discontinue ASA. Not on B-brittney due to h/o Bradycardia. 5. A-fib: Controlled. Continue home Diltiazem. 6. Chronic Anticoagulation: On Xarelto for A-fib, 7. HTN: Norvasc and Losartan 100 mg by mouth daily 8. JULIANE: Creatinine 1.45, previously 0.96 on 05/23/16 now improving. Monitor BUN and creatinine, caution w/ diuretics. 9. DVT Prophylaxis: Hold Xarelto. Rommel Stevens MD Jun 16, 2016 08:38
[2016-06-16] MEDS: BUDESONIDE-FORMOTEROL 160/4.5 MCG INHALER INH SCH ×2 (09:32→20:53)
[2016-06-16 09:48] LABS: OVALOCYTES 1+ (NORMAL); SCAN/DIFF AUTO DIFF CONFIRMED
[2016-06-16 11:33] LABS: APTT (PATIENT) 35.9 SEC (24.3-30.1); INTERNATIONAL NORMALIZED RATIO 1.3 RATIO
--- NOTE | 2016-06-16 15:09 | RADRPT ---
EXAM DATE/TIME: 06/16/2016 15:02 [facility] COMPARISON: No previous studies available for comparison. INDICATIONS : Post right thoracentesis. MEDICAL HISTORY : Hypothyroidism. Myocardial infarction. Hypercholesterolemia. Hypertension. A-fib. COPD. Pneumonia. Dy spnea. Wheezing. Gastrointestinal disorders. SURGICAL HISTORY : Triple bypass. Gastric bypass. ENCOUNTER: Subsequent ACUITY: 1 day PAIN SCORE: 0/10 LOCATION: chest FINDINGS: Status post right thoracentesis. The fluid has been drained. No pneumothorax. There is platelike atel ectasis in the right lung base. Otherwise the rest of the right lung appears to be clear. CONCLUSION: Status post right thoracentesis. No pneumothorax. Arya Garcia MD on June 16, 2016 at 15:07 Board Certified Radiologist. This report was verified electronically.
--- NOTE | 2016-06-16 16:11 | RADRPT ---
EXAM DATE/TIME: 06/16/2016 14:34 [facility] COMPARISON: No previous studies available for comparison. EXTERNAL COMPARISON: [facility], CHEST- PA & LAT, Feb 27 2016. INDICATIONS : Right pleural effusion. MEDICAL HISTORY : Myocardial infarction. Chronic obstructive pulmonary disease. Gastroesophageal reflux disease. Hypoth yroidism. Atrial fibrilllation. Diabetes. SURGICAL HISTORY : CABG Triple bypass. Coronary stent. Gastric bypass. Back surgery. ENCOUNTER: Initial ACUITY: 1 day PAIN SCORE: 0/10 LOCATION: Right chest FLUID: Total volume of 1,200 cc of clear, yellow fluid was removed. Fluid was sent to lab for ordered studies. Post procedure scanning reveals no hematoma or other complication. TECHNIQUE: 1. Ultrasound guidance for thoracentesis. 2. Thoracentesis. The risks, benefits, and alternatives to ultrasound guided thoracentesis were explained to the patien t in lay simple terms, including the risk of bleeding and infection. Written and verbal informed con sent was obtained. Appropriate area for thoracentesis was marked under ultrasound guidance with the patient in the uprig ht position. Overlying skin was prepped and draped in the usual sterile fashion and with local anest hetic, a dermatotomy was made with an 11 blade scalpel. A 6 [place] thoracentesis catheter was placed in the pleural space and fluid was removed. Catheter was then removed and a sterile dressing applie d. There were no immediate complications. The patient tolerated the procedure well and the left the ultrasound suite in stable condition. Chest radiograph is to be obtained. CONCLUSION: Uncomplicated ultrasound guided thoracentesis. Arya Garcia MD on June 16, 2016 at 16:10 Board Certified Radiologist. This report was verified electronically.
--- NOTE | 2016-06-16 17:55 | HHI.PR ---
Subjective Remarks Had a Right thoracentesis. On o2 still. No chest pain Objective Vital Signs Date Time Temp Pulse Resp B/P Pulse Ox O2 Delivery O2 Flow Rate FiO2 06/16/16 17:06 81 06/16/16 16:00 88 06/16/16 15:45 97.8 79 18 169/85 100 06/16/16 15:37 72 06/16/16 15:32 98.6 76 20 153/78 96 06/16/16 14:09 98.7 70 20 148/72 96 06/16/16 13:00 75 06/16/16 12:42 73 06/16/16 11:20 98.7 69 19 142/47 92 06/16/16 11:00 66 06/16/16 10:37 91 Nasal Cannula 4.00 06/16/16 10:00 72 06/16/16 09:00 77 06/16/16 08:00 78 06/16/16 07:00 78 06/16/16 07:00 98.6 76 20 148/79 96 06/16/16 07:00 96 Nasal Cannula 3.00 06/16/16 06:00 74 06/16/16 05:00 96 06/16/16 04:00 79 06/16/16 03:00 98.3 78 20 145/95 95 06/16/16 03:00 70 06/16/16 02:00 80 06/16/16 01:00 71 06/16/16 00:00 71 06/15/16 23:38 88 Nasal Cannula 4.00 06/15/16 23:00 99.0 66 16 154/58 91 06/15/16 23:00 70 06/15/16 21:00 67 06/15/16 20:00 78 06/15/16 19:00 66 06/15/16 19:00 92 3.00 06/15/16 19:00 98.3 75 16 175/81 98 06/15/16 18:03 88 I/O 06/15/16 06/15/16 06/15/16 06/16/16 06/16/16 06/16/16 07:00 15:00 23:00 07:00 15:00 23:00 Intake Total 240 ml 480 ml 360 ml 840 ml Output Total 1100 ml 900 ml 900 ml 750 ml Balance -860 ml -420 ml -540 ml 90 ml Intake Oral 240 ml 480 ml 360 ml 840 ml Output Urine Total 1100 ml 900 ml 900 ml 750 ml # Bowel Movements 0 1 0 2 Result Diagram: 06/16/16 0550 06/16/16 0550 Objective Remarks This is an elderly moderately overweight white female who is pale and in no acute distress. There is no icterus or peripheral edema. HEENT: Head normocephalic. Pupils reactive. Tongue is dry. Throat is clear. Nasal mucosa injected. Neck: Supple. No bruits or thyroid enlargement. No lymphadenopathy. Chest: Equal movements with few fine basilar crackles more on the right side. No definite wheeze.Decreased breath sounds. Heart: The heart sounds are irregular S1-S2. No murmur. The abdomen is soft, benign. No masses or organomegaly. Extremities: 2+ edema with diminished pulses. Reflexes are 1+ with no gross motor deficits. Cranial nerves grossly intact. Rectal: Exam is deferred. Skin: No lesions. Assessment and Plan Assessment and Plan IMPRESSION: 1. CHF with cardiomyopathy. 2. History of atrial fibrillation. 3. Acute kidney injury, resolving. 4. Hypertension. 5. COPD with chronic bronchitis. Plan : 1. Thoracentesis on left 2. O2 2l 3. Nebs qid , duoneb. 4. Will arrange home o2 if sats <88 on RA. 5. Cont Bumex PO and Kcl. Santo Hanson MD Jun 16, 2016 17:55
[2016-06-16 18:22] LABS: TOTAL PROTEIN,PLEURAL FLUID 2.7 GM/DL
[2016-06-16 19:05] LABS: PLEURAL FLUID LYMPHS 52 %
[2016-06-16 19:06] LABS: PLEURAL FLUID PH 7.5
[2016-06-16] MEDS: INSULIN DETEMIR 100 UNITS/ML VIAL SQ SCH (20:52)
[2016-06-16] MEDS: FENOFIBRATE 145 MG TAB PO SCH (20:54)
[2016-06-16] MEDS: ATORVASTATIN 10 MG TAB PO SCH (20:54)
[2016-06-16] MEDS: TEMAZEPAM 15 MG CAP PO PRN (20:54)
[2016-06-16] MEDS: traZODone HCL 50 MG TAB PO SCH (21:00)
[2016-06-17] VITALS (28 sets, daily range): BP systolic 110–161; BP diastolic 55–88; PULSE 68–103; RESP 16–20; TEMP 97–98.9; O2SAT 93–100
[2016-06-17] MEDS: DILTIAZEM HCL 90 MG TAB PO SCH ×4 (03:39→21:46)
[2016-06-17] MEDS: LEVOTHYROXINE SODIUM 150 MCG TAB PO SCH (05:30)
--- NOTE | 2016-06-17 06:25 | RADRPT ---
EXAM DATE/TIME: 06/17/2016 04:55 [facility] COMPARISON: CHEST EXPIRATION ONLY, June 16, 2016, 15:02. INDICATIONS : Shortness of breath, possible pulmonary disease. MEDICAL HISTORY : Hypertension. Myocardial infarction. Hypercholesterolemia. COPD A-Fib SURGICAL HISTORY : CABG. Gastric bypass. ENCOUNTER: Subsequent ACUITY: 2 days PAIN SCORE: 0/10 LOCATION: Bilateral chest FINDINGS: Bilateral perihilar and basilar parenchymal opacities and effusions persist with little change. Cardi ac contours are grossly stable. CONCLUSION: No significant change. Mango Sheets MD on June 17, 2016 at 6:22 Board Certified Radiologist. This report was verified electronically.
[2016-06-17] MEDS: INSULIN ASPART SUPPLEMENTAL SCALE SQ SCH ×3 (07:00→21:45)
--- NOTE | 2016-06-17 08:03 | PD.CARD.PN ---
Subjective Subjective Remarks Pt feeling better, she does report high sodium use at home Objective Medications Current Medications Medications (Trade) Dose Ordered Sig/Seema Route Start Time Stop Time Status Last Admin (D50w (Vial) Inj) 25 ml UNSCH PRN IV PUSH 06/11/16 21:00 (Glucagon Inj) 1 mg UNSCH PRN OTHER 06/11/16 21:00 (NS Flush) 2 ml UNSCH PRN FLUSH 06/11/16 21:00 06/14/16 17:46 (NS Flush) 2 ml BID FLUSH 06/11/16 21:00 06/16/16 20:54 (Zofran Inj) 4 mg Q6H PRN IVP 06/11/16 21:00 (Dulcolax Supp) 10 mg DAILY PRN DE 06/11/16 21:00 (Tylenol) 650 mg Q6H PRN PO 06/11/16 21:00 ([place] 5-325 Mg) 1 tab Q4H PRN PO 06/11/16 21:00 (Morphine Inj) 4 mg Q3H PRN IV 06/11/16 21:00 (Xanax) 0.25 mg Q8HR PRN PO 06/11/16 21:00 06/15/16 20:38 (Aspirin Chew) 81 mg DAILY PO 06/12/16 09:00 Hold 06/15/16 08:40 (Lipitor) 10 mg HS PO 06/11/16 21:00 06/16/16 20:54 (Cardizem) 90 mg Q6H PO 06/11/16 21:00 06/17/16 03:39 (Cymbalta Dr) 120 mg DAILY PO 06/12/16 09:00 06/16/16 08:30 (Tricor) 145 mg HS PO 06/11/16 21:00 06/16/16 20:54 (Levemir Inj) 17 units HS SQ 06/11/16 22:00 06/16/16 20:52 (Synthroid) 150 mcg DAILY@0600 PO 06/12/16 06:00 06/17/16 05:30 (Theragran M Tab) 1 tab DAILY PO 06/12/16 09:00 06/16/16 08:30 (Protonix) 40 mg DAILY PO 06/12/16 09:00 06/16/16 08:30 (Desyrel) 50 mg HS PO 06/11/16 21:00 06/15/16 20:40 (Cozaar) 100 mg DAILY PO 06/13/16 12:00 06/16/16 08:30 (Norvasc) 5 mg DAILY PO 06/14/16 10:45 06/16/16 08:30 (Bumetanide) 1 mg BID@,18 PO 06/15/16 09:00 06/16/16 17:37 (KCl) 20 meq Q12HR PO 06/15/16 09:00 06/16/16 20:54 (Symbicort 160-4.5 Inh) 2 puff Q12HR INH 06/15/16 21:00 06/16/16 20:53 (Restoril) 15 mg HS PRN PO 06/16/16 18:30 06/16/16 20:54 Vital Signs / I&O Vital Signs Date Time Temp Pulse Resp B/P Pulse Ox O2 Delivery O2 Flow Rate FiO2 06/17/16 06:00 70 06/17/16 05:55 80 06/17/16 04:00 68 06/17/16 03:00 79 06/17/16 03:00 98.9 81 18 161/88 95 06/17/16 02:00 70 06/17/16 01:00 78 06/17/16 00:08 75 06/17/16 00:00 75 06/16/16 23:00 99.0 82 16 129/65 92 06/16/16 23:00 86 06/16/16 22:00 77 06/16/16 21:00 72 06/16/16 20:00 86 06/16/16 19:30 98.6 89 22 149/76 92 06/16/16 19:30 89 06/16/16 19:30 92 Nasal Cannula 3.00 06/16/16 18:11 75 06/16/16 17:06 81 06/16/16 16:00 88 06/16/16 15:45 97.8 79 18 169/85 100 06/16/16 15:37 72 06/16/16 15:32 98.6 76 20 153/78 96 06/16/16 14:09 98.7 70 20 148/72 96 06/16/16 13:00 75 06/16/16 12:42 73 06/16/16 11:20 98.7 69 19 142/47 92 06/16/16 11:00 66 06/16/16 10:37 91 Nasal Cannula 4.00 06/16/16 10:00 72 06/16/16 09:00 77 I/O 06/16/16 06/16/16 06/16/16 06/17/16 06/17/16 06/17/16 07:00 15:00 23:00 07:00 15:00 23:00 Intake Total 360 ml 840 ml 480 ml Output Total 900 ml 750 ml 700 ml Balance -540 ml 90 ml -220 ml Intake Oral 360 ml 840 ml 480 ml Output Urine Total 900 ml 750 ml 700 ml # Bowel Movements 0 2 0 Physical Exam GENERAL: Well developed, well nourished. No acute distress. HEENT: Jugular venous pressure is normal. CHEST: Lungs rales in bases to auscultation bilaterally. Unlabored respiratory effort. CARDIAC: irregular rate and rhythm without S3, S4, or murmur. ABDOMEN: Soft, nontender, no hepatosplenomegaly. Bowel sounds present. EXTREMITIES: No clubbing, cyanosis, trace edema. Laboratory Laboratory Tests Test 06/16/16 06/16/16 11:07 15:00 Prothrombin Time 14.0 SEC Prothromb Time International 1.3 RATIO Ratio Activated Partial 35.9 SEC Thromboplast Time Pleural Fluid pH 7.5 Pleural Fluid WBC 936 /MM3 Pleural Fluid RBC 2595 /MM3 Pleural Fluid Neutrophils 22 % Pleural Fluid Lymphocytes 52 % Pleural Fluid Histiocytes 24 % Pleural Fluid Mesothelial 2 % Cells Pleural Fluid Total Protein 2.7 GM/DL Pleural Fluid LDH 78 U/L Pleural Fluid Glucose 170 MG/DL Pleural Fluid Amylase 42 U/L Imaging Last 72 hours Impressions Chest X-Ray 06/17/16 0600 Signed Impressions: Service Date/Time: May 04:55 - CONCLUSION: No significant change. Mango Sheets MD Thoracentesis Ultrasound 06/16/16 0000 Signed Impressions: Service Date/Time: Thursday, June 16, 2016 14:34 - CONCLUSION: Uncomplicated ultrasound guided thoracentesis. Arya Garcia MD Chest X-Ray 06/16/16 0000 Signed Impressions: Service Date/Time: Thursday, June 16, 2016 15:02 - CONCLUSION: Status post right thoracentesis. No pneumothorax. Arya Garcia MD Chest X-Ray 06/15/16 0000 Signed Impressions: Service Date/Time: Wednesday, June 15, 2016 11:31 - CONCLUSION: 1. Suspected bilateral pleural effusions. 2. Cardiomegaly. 3. Prominence of the interstitium which likely represents some degree of pulmonary venous hypertension and mild edema. Mango Sheth MD Chest Ultrasound 06/15/16 0000 Signed Impressions: Service Date/Time: Wednesday, June 15, 2016 14:19 - CONCLUSION: Moderate size right pleural effusion marked for thoracentesis. Kingston Do MD Chest Ultrasound 06/15/16 0000 Signed Impressions: Service Date/Time: Wednesday, June 15, 2016 14:27 - CONCLUSION: Moderate- sized left pleural effusion marked for thoracentesis. Kingston Do MD Assessment and Plan Problem List: (1) Pleural effusion Assessment and Plan: s/p right thoracentesis, left today (2) CHF (congestive heart failure) Assessment and Plan: stable to improved (3) Dyspnea (4) A-fib Assessment and Plan: rate controlled, (5) Elevated troponin (6) Hypertension (7) Coronary artery disease Problem Qualifiers (1) Dyspnea: Qualified Code: R06.02 - Shortness of breath Holli Roth MD Jun 17, 2016 08:03
[2016-06-17] MEDS: POTASSIUM CHLORIDE 20 MEQ CONTROLLED RELEASE TAB PO SCH ×2 (09:00→21:46)
[2016-06-17] MEDS: BUMETANIDE 1 MG TAB PO SCH ×2 (09:00→17:44)
[2016-06-17] MEDS: MULTIVITAMINS/MINERALS THERAPEUTIC TAB PO SCH (09:00)
[2016-06-17] MEDS: PANTOPRAZOLE SOD 40 MG DELAYED RELEASE TAB PO SCH (09:00)
[2016-06-17] MEDS: LOSARTAN 50 MG TAB PO SCH (09:00)
[2016-06-17] MEDS: amLODIPine BESYLATE 5 MG TAB PO SCH (09:00)
[2016-06-17] MEDS: DULoxetine HCl DR 60 MG CAP PO SCH (09:00)
--- NOTE | 2016-06-17 09:14 | HHI.PR ---
Subjective Remarks Follow-up uncontrolled hypertension/CHF exacerbation 06/12/16-patient seen and examined, still complain of some shortness of breath however states he has improved since admission. Denies any chest pain. Also complains of bilateral lower extremity swelling. 06/13/16-patient seen and examined; although improved however patient is still with some mild dyspnea. Denies any chest pain. BP improving. 06/14/16-patient seen and examined; reports slow improvement but still with exertional dyspnea. Denies any chest pain 06/15/16-patient seen and examined; Continues to be short of breath; denies any chest pain 06/16/16-patient seen and examined; still with shortness of breath with minimal exertion. Bilateral chest ultrasound positive for moderate size pleural effusions. Denies any chest pain. Case discussed at bedside with [employer] Dr. Roth 06/17/16-patient seen and examined, reports some improvement of shortness of breath. Now able to take more steps without any significant dyspnea on exertion. Status post right thoracentesis. No acute event overnight Objective Vitals Vital Signs Date Time Temp Pulse Resp B/P Pulse Ox O2 Delivery O2 Flow Rate FiO2 06/17/16 06:00 70 06/17/16 05:55 80 06/17/16 04:00 68 06/17/16 03:00 79 06/17/16 03:00 98.9 81 18 161/88 95 06/17/16 02:00 70 06/17/16 01:00 78 06/17/16 00:08 75 06/17/16 00:00 75 06/16/16 23:00 99.0 82 16 129/65 92 06/16/16 23:00 86 06/16/16 22:00 77 06/16/16 21:00 72 06/16/16 20:00 86 06/16/16 19:30 98.6 89 22 149/76 92 06/16/16 19:30 89 06/16/16 19:30 92 Nasal Cannula 3.00 06/16/16 18:11 75 06/16/16 17:06 81 06/16/16 16:00 88 06/16/16 15:45 97.8 79 18 169/85 100 06/16/16 15:37 72 06/16/16 15:32 98.6 76 20 153/78 96 06/16/16 14:09 98.7 70 20 148/72 96 06/16/16 13:00 75 06/16/16 12:42 73 06/16/16 11:20 98.7 69 19 142/47 92 06/16/16 11:00 66 06/16/16 10:37 91 Nasal Cannula 4.00 06/16/16 10:00 72 I/O 06/16/16 06/16/16 06/16/16 06/17/16 06/17/16 06/17/16 07:00 15:00 23:00 07:00 15:00 23:00 Intake Total 360 ml 840 ml 480 ml Output Total 900 ml 750 ml 700 ml Balance -540 ml 90 ml -220 ml Intake Oral 360 ml 840 ml 480 ml Output Urine Total 900 ml 750 ml 700 ml # Bowel Movements 0 2 0 Result Diagram: 06/16/16 0550 06/16/16 0550 Imaging Last Impressions Chest X-Ray 06/17/16 0600 Signed Impressions: Service Date/Time: May 04:55 - CONCLUSION: No significant change. Mango Sheets MD Thoracentesis Ultrasound 06/16/16 0000 Signed Impressions: Service Date/Time: Thursday, June 16, 2016 14:34 - CONCLUSION: Uncomplicated ultrasound guided thoracentesis. Arya Garcia MD Chest Ultrasound 06/15/16 0000 Signed Impressions: Service Date/Time: Wednesday, June 15, 2016 14:19 - CONCLUSION: Moderate size right pleural effusion marked for thoracentesis. Kingston Do MD Objective Remarks GENERAL: NAD SKIN: Warm and dry. HEAD: Normocephalic. EYES: No scleral icterus. No injection or drainage. NECK: Supple, trachea midline. No JVD or lymphadenopathy. CARDIOVASCULAR: Regular rate and rhythm without murmurs, gallops, or rubs. RESPIRATORY: Breath sounds decreased L>R. No accessory muscle use. GASTROINTESTINAL: Abdomen soft, non-tender, nondistended. MUSCULOSKELETAL: No cyanosis; +trace edema BLE. BACK: Nontender without obvious deformity. No CVA tenderness. A/P Problem List: (1) Respiratory failure, acute ICD Code: J96.00 Status: Acute (2) CHF (congestive heart failure) ICD Code: I50.9 Status: Acute (3) Elevated troponin ICD Code: R79.89 Status: Acute (4) A-fib ICD Code: I48.91 Status: Acute (5) Chronic anticoagulation ICD Code: Z79.01 Status: Acute (6) JULIANE (acute kidney injury) ICD Code: N17.9 Status: Acute (7) HTN (hypertension) ICD Code: I10 Status: Acute (8) Pleural effusion, bilateral ICD Code: J90 Status: Acute Assessment and Plan 75-year-old female with 1 . Respiratory failure: Multifactorial; pleural effusions versus CHF versus other 2. Bilateral pleural effusions: Chest ultrasound noted and review with evidence of bilateral pleural effusion. s/p Right ultrasound-guided thoracentesis 06/16/16 pending plan for left ultrasound-guided thoracentesis today 06/17/16. Appreciate input from pulmonary medicine. Continue with Symbicort, Bronchodilator and Hold Xarelto 3. CHF: Acute on Chronic. Diastolic. Echo 03/09/16 w/ EF 55-60%. BNP 409. CXR w/ bilateral pleural effusions. s/p Nitro gtt, continue Bumex PO twice a day and appreciate input from cardiology. ACS ruled out per protocol with serial cardiac enzyme and EKGs. 2-D echo 50-55% 4. Elevated Trop: Trop 0.18. EKG w/ no acute ischemia. Likely due to CHF exacerbation. ACS ruled out per protocol with serial cardiac enzyme and EKGs. Continue home Statin, discontinue ASA. Not on B-brittney due to h/o Bradycardia. 5. A-fib: Controlled. Continue home Diltiazem. 6. Chronic Anticoagulation: On Xarelto for A-fib, however Xarelto on hold, 7. HTN: Norvasc and Losartan 100 mg by mouth daily 8. JULIANE: Creatinine 1.45, previously 0.96 on 05/23/16 now improving. Monitor BUN and creatinine, caution w/ diuretics. 9. DVT Prophylaxis: Continue to Hold Xarelto. Rommel Stevens MD Jun 17, 2016 09:14
[2016-06-17] MEDS: BUDESONIDE-FORMOTEROL 160/4.5 MCG INHALER INH SCH ×2 (09:50→21:47)
[2016-06-17] MEDS: SODIUM CHLORIDE 0.9% FLUSH 5 ML FLUSH FLUSH SCH ×2 (09:50→21:00)
--- NOTE | 2016-06-17 11:19 | RADRPT ---
EXAM DATE/TIME: 06/17/2016 11:04 [facility] COMPARISON: CHEST EXPIRATION ONLY, June 16, 2016, 15:02. INDICATIONS : Eval lungs post Lt thora. MEDICAL HISTORY : Hypertension. Congestive heart failure. SURGICAL HISTORY : CABG. ENCOUNTER: Subsequent ACUITY: 3 days PAIN SCORE: 4/10 LOCATION: Left chest FINDINGS: Status post left thoracentesis. No evidence of pneumothorax. There is a scattered areas of atelectasi s in the right lung. There is mild atelectasis in the left lower lung. The heart size is stable. CONCLUSION: No evidence of pneumothorax. Arya Garcia MD on June 17, 2016 at 11:14 Board Certified Radiologist. This report was verified electronically.
--- NOTE | 2016-06-17 12:06 | RADRPT ---
EXAM DATE/TIME: 06/17/2016 10:04 [facility] COMPARISON: No previous studies available for comparison. EXTERNAL COMPARISON: [facility], CHEST- PA & LAT, Feb 27 2016. INDICATIONS : Left pleural effusion. MEDICAL HISTORY : Myocardial infarction. Chronic obstructive pulmonary disease. Gastroesophageal reflux disease. Hypoth yroid. Afib. Diabetic. SURGICAL HISTORY : CABG Coronary stent. Back surgery. Gastric bypass. ENCOUNTER: Subsequent ACUITY: 1 day PAIN SCORE: 2/10 LOCATION: Left chest FLUID: Total volume of 700 of tiara fluid was removed. Fluid was sent to lab for ordered studies. TECHNIQUE: 1. Ultrasound guidance for thoracentesis. 2. Thoracentesis. The risks, benefits, and alternatives to ultrasound guided thoracentesis were explained to the patien t in lay simple terms, including the risk of bleeding and infection. Written and verbal informed con sent was obtained. Appropriate area for thoracentesis was marked under ultrasound guidance with the patient in the uprig ht position. Overlying skin was prepped and draped in the usual sterile fashion and with local anest hetic, a dermatotomy was made with an 11 blade scalpel. A 6 Yi thoracentesis catheter was placed in the pleural space and fluid was removed. Catheter was then removed and a sterile dressing applie d. There were no immediate complications. The patient tolerated the procedure well and the left the ultrasound suite in stable condition. Chest radiograph is to be obtained. CONCLUSION: Uncomplicated ultrasound guided thoracentesis. Arya Garcia MD on June 17, 2016 at 12:05 Board Certified Radiologist. This report was verified electronically.
[2016-06-17 12:37] LABS: TOTAL PROTEIN,PLEURAL FLUID 2.8 GM/DL
--- NOTE | 2016-06-17 13:02 | HHI.PR ---
Subjective Remarks Had a left thoracentesis. On o2 still.Feels much better. No chest pain Objective Vital Signs Date Time Temp Pulse Resp B/P Pulse Ox O2 Delivery O2 Flow Rate FiO2 06/17/16 10:30 97.0 71 18 139/79 94 06/17/16 06:00 70 06/17/16 05:55 80 06/17/16 04:00 68 06/17/16 03:00 79 06/17/16 03:00 98.9 81 18 161/88 95 06/17/16 02:00 70 06/17/16 01:00 78 06/17/16 00:08 75 06/17/16 00:00 75 06/16/16 23:00 99.0 82 16 129/65 92 06/16/16 23:00 86 06/16/16 22:00 77 06/16/16 21:00 72 06/16/16 20:00 86 06/16/16 19:30 98.6 89 22 149/76 92 06/16/16 19:30 89 06/16/16 19:30 92 Nasal Cannula 3.00 06/16/16 18:11 75 06/16/16 17:06 81 06/16/16 16:00 88 06/16/16 15:45 97.8 79 18 169/85 100 06/16/16 15:37 72 06/16/16 15:32 98.6 76 20 153/78 96 06/16/16 14:09 98.7 70 20 148/72 96 I/O 06/16/16 06/16/16 06/16/16 06/17/16 06/17/16 06/17/16 07:00 15:00 23:00 07:00 15:00 23:00 Intake Total 360 ml 840 ml 480 ml Output Total 900 ml 750 ml 700 ml Balance -540 ml 90 ml -220 ml Intake Oral 360 ml 840 ml 480 ml Output Urine Total 900 ml 750 ml 700 ml # Bowel Movements 0 2 0 Result Diagram: 06/16/16 0550 06/16/16 0550 Objective Remarks This is an elderly moderately overweight white female who is pale and in no acute distress. There is no icterus or peripheral edema. HEENT: Head normocephalic. Pupils reactive. Tongue is clear. Throat is clear. Nasal mucosa injected. Neck: Supple. No bruits or thyroid enlargement. No lymphadenopathy. Chest: Equal movements with few basilar crackles more on the right side. No definite wheeze.Decreased breath sounds. Heart: The heart sounds are irregular S1-S2. No murmur. The abdomen is soft, benign. No masses or organomegaly. Extremities: 1+ edema with diminished pulses. Reflexes are 1+ with no gross motor deficits. Cranial nerves grossly intact. Rectal: Exam is deferred. Skin: No lesions. Assessment and Plan Assessment and Plan IMPRESSION: 1. CHF with cardiomyopathy. 2. History of atrial fibrillation. 3. Acute kidney injury, resolving. 4. Hypertension. 5. COPD with chronic bronchitis. Plan : 1. BMP in am 2. O2 2l and wean to RA 3. Nebs qid , duoneb. 4. Will arrange home o2 if sats <88 on RA. 5. Cont Bumex PO and Kcl. 6.Will see as OP in 2 weeks Santo Hanson MD Jun 17, 2016 13:02
[2016-06-17 13:07] LABS: PLEURAL FLUID LYMPHS 54 %
[2016-06-17] MEDS: traZODone HCL 50 MG TAB PO SCH (21:46)
[2016-06-17] MEDS: ATORVASTATIN 10 MG TAB PO SCH (21:46)
[2016-06-17] MEDS: FENOFIBRATE 145 MG TAB PO SCH (21:46)
[2016-06-17] MEDS: INSULIN DETEMIR 100 UNITS/ML VIAL SQ SCH (21:46)
[2016-06-17] MEDS: TEMAZEPAM 15 MG CAP PO PRN (21:50)
[2016-06-18] VITALS (16 sets, daily range): BP systolic 119–123; BP diastolic 52–78; PULSE 68–87; RESP 18–20; TEMP 97.6–98.6; O2SAT 92–96
[2016-06-18] MEDS: DILTIAZEM HCL 90 MG TAB PO SCH ×2 (03:18→09:31)
[2016-06-18] MEDS: LEVOTHYROXINE SODIUM 150 MCG TAB PO SCH (06:06)
[2016-06-18] MEDS: INSULIN ASPART SUPPLEMENTAL SCALE SQ SCH ×2 (06:06→12:31)
--- NOTE | 2016-06-18 07:38 | PD.CARD.PN ---
Subjective Subjective Remarks Pt reports breathing improved, though some SHOB Objective Medications Current Medications Medications (Trade) Dose Ordered Sig/Seema Route Start Time Stop Time Status Last Admin (D50w (Vial) Inj) 25 ml UNSCH PRN IV PUSH 06/11/16 21:00 (Glucagon Inj) 1 mg UNSCH PRN OTHER 06/11/16 21:00 (NS Flush) 2 ml UNSCH PRN FLUSH 06/11/16 21:00 06/14/16 17:46 (NS Flush) 2 ml BID FLUSH 06/11/16 21:00 06/17/16 21:00 (Zofran Inj) 4 mg Q6H PRN IVP 06/11/16 21:00 (Dulcolax Supp) 10 mg DAILY PRN GA 06/11/16 21:00 (Tylenol) 650 mg Q6H PRN PO 06/11/16 21:00 ([place] 5-325 Mg) 1 tab Q4H PRN PO 06/11/16 21:00 (Morphine Inj) 4 mg Q3H PRN IV 06/11/16 21:00 (Xanax) 0.25 mg Q8HR PRN PO 06/11/16 21:00 06/15/16 20:38 (Aspirin Chew) 81 mg DAILY PO 06/12/16 09:00 Hold 06/15/16 08:40 (Lipitor) 10 mg HS PO 06/11/16 21:00 06/17/16 21:46 (Cardizem) 90 mg Q6H PO 06/11/16 21:00 06/18/16 03:18 (Cymbalta Dr) 120 mg DAILY PO 06/12/16 09:00 06/17/16 09:00 (Tricor) 145 mg HS PO 06/11/16 21:00 06/17/16 21:46 (Levemir Inj) 17 units HS SQ 06/11/16 22:00 06/17/16 21:46 (Synthroid) 150 mcg DAILY@0600 PO 06/12/16 06:00 06/18/16 06:06 (Theragran M Tab) 1 tab DAILY PO 06/12/16 09:00 06/17/16 09:00 (Protonix) 40 mg DAILY PO 06/12/16 09:00 06/17/16 09:00 (Desyrel) 50 mg HS PO 06/11/16 21:00 06/17/16 21:46 (Cozaar) 100 mg DAILY PO 06/13/16 12:00 06/17/16 09:00 (Norvasc) 5 mg DAILY PO 06/14/16 10:45 06/17/16 09:00 (Bumetanide) 1 mg BID@,18 PO 06/15/16 09:00 06/17/16 17:44 (KCl) 20 meq Q12HR PO 06/15/16 09:00 06/17/16 21:46 (Symbicort 160-4.5 Inh) 2 puff Q12HR INH 06/15/16 21:00 06/17/16 21:47 (Restoril) 15 mg HS PRN PO 06/16/16 18:30 06/17/16 21:50 Vital Signs / I&O Vital Signs Date Time Temp Pulse Resp B/P Pulse Ox O2 Delivery O2 Flow Rate FiO2 06/18/16 06:00 84 06/18/16 05:00 69 06/18/16 04:00 74 06/18/16 03:00 98.6 76 18 123/52 92 06/18/16 03:00 75 06/18/16 02:00 75 06/18/16 01:00 76 06/18/16 00:00 68 06/17/16 23:00 98.8 69 18 115/55 93 06/17/16 23:00 93 Nasal Cannula 2.00 06/17/16 23:00 69 06/17/16 22:00 103 06/17/16 21:00 79 06/17/16 20:00 95 Nasal Cannula 2.00 06/17/16 20:00 98.7 71 18 128/64 95 06/17/16 20:00 70 06/17/16 19:44 98 2.00 06/17/16 19:00 87 06/17/16 18:17 98 Nasal Cannula 3.00 06/17/16 18:00 88 06/17/16 17:00 88 06/17/16 16:00 84 06/17/16 15:30 98.5 86 20 150/84 97 06/17/16 15:30 95 Nasal Cannula 3.00 06/17/16 15:30 86 06/17/16 15:00 75 06/17/16 14:00 69 06/17/16 13:00 80 06/17/16 12:00 82 06/17/16 11:30 95 Nasal Cannula 3.00 06/17/16 11:30 86 06/17/16 11:30 97.5 86 20 97 06/17/16 10:30 97.0 71 18 139/79 94 06/17/16 09:00 78 06/17/16 08:00 78 I/O 06/17/16 06/17/16 06/17/16 06/18/16 06/18/16 06/18/16 07:00 15:00 23:00 07:00 15:00 23:00 Intake Total 480 ml 680 ml 240 ml Output Total 700 ml 900 ml Balance -220 ml 680 ml -660 ml Intake Oral 480 ml 680 ml 240 ml Output Urine Total 700 ml 900 ml # Voids 3 # Bowel Movements 0 1 0 Physical Exam GENERAL: Well developed, well nourished. No acute distress. HEENT: Jugular venous pressure is normal. CHEST: Lungs rales in bases to auscultation bilaterally. Unlabored respiratory effort. CARDIAC: irregular rate and rhythm without S3, S4, or murmur. ABDOMEN: Soft, nontender, no hepatosplenomegaly. Bowel sounds present. EXTREMITIES: No clubbing, cyanosis, trace edema. Laboratory Laboratory Tests Test 06/17/16 10:43 Pleural Fluid WBC 851 /MM3 Pleural Fluid RBC 52803 /MM3 Pleural Fluid Neutrophils 17 % Pleural Fluid Lymphocytes 54 % Pleural Fluid Monocytes 4 % Pleural Fluid Histiocytes 10 % Pleural Fluid Mesothelial 15 % Cells Pleural Fluid Total Protein 2.8 GM/DL Pleural Fluid LDH 77 U/L Pleural Fluid Glucose 155 MG/DL Pleural Fluid Amylase 41 U/L Imaging Last 72 hours Impressions Chest X-Ray 06/17/16 0600 Signed Impressions: Service Date/Time: May 04:55 - CONCLUSION: No significant change. Mango Sehets MD Thoracentesis Ultrasound 06/17/16 0000 Signed Impressions: Service Date/Time: May 10:04 - CONCLUSION: Uncomplicated ultrasound guided thoracentesis. Arya Garcia MD Chest X-Ray 06/17/16 0000 Signed Impressions: Service Date/Time: May 11:04 - CONCLUSION: No evidence of pneumothorax. Arya Garcia MD Thoracentesis Ultrasound 06/16/16 0000 Signed Impressions: Service Date/Time: Thursday, June 16, 2016 14:34 - CONCLUSION: Uncomplicated ultrasound guided thoracentesis. Arya Garcia MD Chest X-Ray 06/16/16 0000 Signed Impressions: Service Date/Time: Thursday, June 16, 2016 15:02 - CONCLUSION: Status post right thoracentesis. No pneumothorax. Arya Garcia MD Assessment and Plan Problem List: (1) Pleural effusion Assessment and Plan: s/p thoracentesis x 2 (2) CHF (congestive heart failure) Assessment and Plan: improved; continue current meds (3) Dyspnea Assessment and Plan: per pulmonary (4) A-fib Assessment and Plan: rate controlled, she is anemic and I would hold xarelto until she can get a colonoscopy as an out patient (5) Elevated troponin (6) Hypertension (7) Coronary artery disease Assessment and Plan: stable Ok for d/c home from CV perspective Problem Qualifiers (1) Dyspnea: Qualified Code: R06.02 - Shortness of breath Holli Roth MD Jun 18, 2016 07:38
[2016-06-18] MEDS: POTASSIUM CHLORIDE 20 MEQ CONTROLLED RELEASE TAB PO SCH (09:30)
[2016-06-18] MEDS: amLODIPine BESYLATE 5 MG TAB PO SCH (09:30)
[2016-06-18] MEDS: LOSARTAN 50 MG TAB PO SCH (09:31)
[2016-06-18] MEDS: BUDESONIDE-FORMOTEROL 160/4.5 MCG INHALER INH SCH (09:32)
[2016-06-18] MEDS: PANTOPRAZOLE SOD 40 MG DELAYED RELEASE TAB PO SCH (09:32)
[2016-06-18] MEDS: SODIUM CHLORIDE 0.9% FLUSH 5 ML FLUSH FLUSH SCH (09:32)
[2016-06-18] MEDS: BUMETANIDE 1 MG TAB PO SCH (09:32)
[2016-06-18] MEDS: MULTIVITAMINS/MINERALS THERAPEUTIC TAB PO SCH (09:32)
[2016-06-18] MEDS ORDERED: BUME1TAB PO (11:57)
[2016-06-18] MEDS ORDERED: AMLO5 PO (11:57)
[2016-06-18] MEDS ORDERED: OXYGENTANK NAS.CANULA ×2 (11:58→12:12)
--- NOTE | 2016-06-18 12:03 | HHI.PR ---
Subjective Remarks Follow-up uncontrolled hypertension/CHF exacerbation 06/12/16-patient seen and examined, still complain of some shortness of breath however states he has improved since admission. Denies any chest pain. Also complains of bilateral lower extremity swelling. 06/13/16-patient seen and examined; although improved however patient is still with some mild dyspnea. Denies any chest pain. BP improving. 06/14/16-patient seen and examined; reports slow improvement but still with exertional dyspnea. Denies any chest pain 06/15/16-patient seen and examined; Continues to be short of breath; denies any chest pain 06/16/16-patient seen and examined; still with shortness of breath with minimal exertion. Bilateral chest ultrasound positive for moderate size pleural effusions. Denies any chest pain. Case discussed at bedside with materials recycler Dr. Roth 06/17/16-patient seen and examined, reports some improvement of shortness of breath. Now able to take more steps without any significant dyspnea on exertion. Status post right thoracentesis. No acute event overnight 06/18/16-patient seen and examined; she reports significant improvement or shortness of breath after bilateral thoracentesis. Denies any chest pain. Objective Vitals Vital Signs Date Time Temp Pulse Resp B/P Pulse Ox O2 Delivery O2 Flow Rate FiO2 06/18/16 07:40 72 06/18/16 07:40 97.6 72 20 120/60 96 06/18/16 07:40 94 Nasal Cannula 3.00 06/18/16 06:00 84 06/18/16 05:00 69 06/18/16 04:00 74 06/18/16 03:00 98.6 76 18 123/52 92 06/18/16 03:00 75 06/18/16 02:00 75 06/18/16 01:00 76 06/18/16 00:00 68 06/17/16 23:00 98.8 69 18 115/55 93 06/17/16 23:00 93 Nasal Cannula 2.00 06/17/16 23:00 69 06/17/16 22:00 103 06/17/16 21:00 79 06/17/16 20:00 95 Nasal Cannula 2.00 06/17/16 20:00 98.7 71 18 128/64 95 06/17/16 20:00 70 06/17/16 19:44 98 2.00 06/17/16 19:00 87 06/17/16 18:17 98 Nasal Cannula 3.00 06/17/16 18:00 88 06/17/16 17:00 88 06/17/16 16:00 84 06/17/16 15:30 98.5 86 20 150/84 97 06/17/16 15:30 95 Nasal Cannula 3.00 06/17/16 15:30 86 06/17/16 15:00 75 06/17/16 14:00 69 06/17/16 13:00 80 I/O 06/17/16 06/17/16 06/17/16 06/18/16 06/18/16 06/18/16 07:00 15:00 23:00 07:00 15:00 23:00 Intake Total 480 ml 680 ml 240 ml Output Total 700 ml 900 ml Balance -220 ml 680 ml -660 ml Intake Oral 480 ml 680 ml 240 ml Output Urine Total 700 ml 900 ml # Voids 3 # Bowel Movements 0 1 0 Result Diagram: 06/16/16 0550 06/16/16 0550 Imaging Last Impressions Chest X-Ray 06/17/16 0600 Signed Impressions: Service Date/Time: May 04:55 - CONCLUSION: No significant change. Mango Sheets MD Thoracentesis Ultrasound 06/17/16 0000 Signed Impressions: Service Date/Time: May 10:04 - CONCLUSION: Uncomplicated ultrasound guided thoracentesis. Arya Garcia MD Chest Ultrasound 06/15/16 0000 Signed Impressions: Service Date/Time: Wednesday, June 15, 2016 14:19 - CONCLUSION: Moderate size right pleural effusion marked for thoracentesis. Kingston Do MD Objective Remarks GENERAL: NAD SKIN: Warm and dry. HEAD: Normocephalic. EYES: No scleral icterus. No injection or drainage. NECK: Supple, trachea midline. No JVD or lymphadenopathy. CARDIOVASCULAR: Regular rate and rhythm without murmurs, gallops, or rubs. RESPIRATORY: Breath sounds decreased L>R. No accessory muscle use. GASTROINTESTINAL: Abdomen soft, non-tender, nondistended. MUSCULOSKELETAL: No cyanosis; +trace edema BLE. BACK: Nontender without obvious deformity. No CVA tenderness. Procedures Ultrasound-guided bilateral thoracentesis A/P Problem List: (1) Respiratory failure, acute ICD Code: J96.00 Status: Acute (2) CHF (congestive heart failure) ICD Code: I50.9 Status: Acute (3) Elevated troponin ICD Code: R79.89 Status: Acute (4) A-fib ICD Code: I48.91 Status: Acute (5) Chronic anticoagulation ICD Code: Z79.01 Status: Acute (6) JULIANE (acute kidney injury) ICD Code: N17.9 Status: Acute (7) HTN (hypertension) ICD Code: I10 Status: Acute (8) Pleural effusion, bilateral ICD Code: J90 Status: Acute (9) Acute on chronic diastolic CHF (congestive heart failure) ICD Code: I50.33 Status: Acute Assessment and Plan 75-year-old female with 1 . Respiratory failure: Multifactorial; pleural effusions versus CHF versus other 2. Bilateral pleural effusions: Chest ultrasound noted and review with evidence of bilateral pleural effusion. s/p Right ultrasound-guided thoracentesis 06/16/16 and s/p left ultrasound-guided thoracentesis 06/17/16. Appreciate input from pulmonary medicine. Continue with Symbicort, Bronchodilator and Hold Xarelto 3. CHF: Acute on Chronic. Diastolic. Echo 03/09/16 w/ EF 55-60%. BNP 409. CXR w/ bilateral pleural effusions. s/p Nitro gtt, continue Bumex PO twice a day and appreciate input from cardiology. ACS ruled out per protocol with serial cardiac enzyme and EKGs. 2-D echo 50-55% 4. Elevated Trop: Trop 0.18. EKG w/ no acute ischemia. Likely due to CHF exacerbation. ACS ruled out per protocol with serial cardiac enzyme and EKGs. Continue home Statin, discontinue ASA. Not on B-brittney due to h/o Bradycardia. 5. A-fib: Controlled. Continue home Diltiazem. 6. Chronic Anticoagulation: On Xarelto for A-fib, however Xarelto on hold, 7. HTN: Norvasc and Losartan 100 mg by mouth daily 8. JULIANE: Creatinine 1.45, previously 0.96 on 05/23/16 now improving. Monitor BUN and creatinine, caution w/ diuretics. 9. DVT Prophylaxis: Continue to Hold Xarelto. 10. Acute hypoxia/hypoxemia: Patient will be requiring home oxygen on discharge as other alternative measures were tried and were ineffective as patient failed Respiratory walk test Rommel Stevens MD Jun 18, 2016 12:03
--- NOTE | 2016-06-18 12:10 | HHI.DS ---
Discharge Summary Admission Date Jun 11, 2016 at 21:12 Discharge Date: Jun 18, 2016 Admitting Diagnosis CHF (1) Acute on chronic diastolic CHF (congestive heart failure) ICD Code: I50.33 (2) Respiratory failure, acute ICD Code: J96.00 (3) Elevated troponin ICD Code: R79.89 (4) A-fib ICD Code: I48.91 (5) Chronic anticoagulation ICD Code: Z79.01 (6) JULIANE (acute kidney injury) ICD Code: N17.9 (7) HTN (hypertension) ICD Code: I10 (8) Pleural effusion, bilateral ICD Code: J90 Procedures Ultrasound-guided bilateral thoracentesis Brief History - From Admission This is a 75-year-old female with a PMH of HTN, CAD s/p CABG 02/2016, CHF (Echo 03/09/16 w/ EF 55-60%), A-fib on Xarelto and DM who came to the ER w/ complaints of SOB. States symptoms have been on and off since CABG, following w / Dr. Roth as outpatient. Had SOB during episode of A-fib after CABG, now controlled on Diltiazem and Xarelto and states SOB resolved. In last 2wks however SOB recurred, notes progressive SOB without exertion in addition to worsening lower extremity edema despite Bumex. Denies chest pain, cough, fever or chills. On arrival, BP 201/86, HR 64, O2 sat 87% on RA, currently O2 sat 97 % on 3L NC. Afebrile. WBC normal however elevated neutrophil count. Creatinine 1.45, produces 0.96 on 05/23/16. Troponin 0.18. BNP 409. CXR with sternotomy, increased density at bases bilaterally likely consolidation and mild effusions. Started on Nitro gtt in ER for HTN/CHF. Pt mildly improved, however ongoing SOB w/ exertion. CBC/BMP: 06/16/16 0550 06/16/16 0550 Significant Findings Laboratory Tests Test 06/16/16 06/16/16 06/16/16 06/17/16 05:50 11:07 15:00 10:43 Red Blood Count 3.71 MIL/MM3 (4.00-5.30) Hemoglobin 8.2 GM/DL (11.6-15.3) Hematocrit 26.2 % (35.0-46.0) Mean Corpuscular Volume 70.8 FL (80.0-100.0) Mean Corpuscular Hemoglobin 22.1 PG (27.0-34.0) Mean Corpuscular Hemoglobin 31.3 % Concent (32.0-36.0) Neutrophils (%) (Auto) 80.9 % (16.0-70.0) Lymphocytes (%) (Auto) 8.5 % (9.0-44.0) Monocytes (%) (Auto) 9.1 % (0.0-8.0) Lymphocytes # (Auto) 0.8 TH/MM3 (1.0-4.8) Ovalocytes 1+ (NORMAL) Carbon Dioxide Level 36.5 MEQ/L (21.0-32.0) Blood Urea Nitrogen 23 MG/DL (7-18) Estimat Glomerular Filtration 60 ML/MIN (>89) Rate Prothrombin Time 14.0 SEC (9.8-11.6) Activated Partial 35.9 SEC Thromboplast Time (24.3-30.1) Pleural Fluid WBC 936 /MM3 (0-10) 851 /MM3 (0-10) Pleural Fluid RBC 2595 /MM3 (0-0) 67385 /MM3 (0-0) Imaging Last Impressions Chest X-Ray 06/17/16 0600 Signed Impressions: Service Date/Time: May 04:55 - CONCLUSION: No significant change. Mango Sheets MD Thoracentesis Ultrasound 06/17/16 0000 Signed Impressions: Service Date/Time: May 10:04 - CONCLUSION: Uncomplicated ultrasound guided thoracentesis. Arya Garcia MD Chest Ultrasound 06/15/16 0000 Signed Impressions: Service Date/Time: Wednesday, June 15, 2016 14:19 - CONCLUSION: Moderate size right pleural effusion marked for thoracentesis. Kingston Do MD PE at Discharge GENERAL: NAD SKIN: Warm and dry. HEAD: Normocephalic. EYES: No scleral icterus. No injection or drainage. NECK: Supple, trachea midline. No JVD or lymphadenopathy. CARDIOVASCULAR: Regular rate and rhythm without murmurs, gallops, or rubs. RESPIRATORY: Breath sounds decreased L>R. No accessory muscle use. GASTROINTESTINAL: Abdomen soft, non-tender, nondistended. MUSCULOSKELETAL: No cyanosis; +trace edema BLE. BACK: Nontender without obvious deformity. No CVA tenderness. Hospital Course Patient was diagnosed with acute on chronic diastolic dysfunction was treated with IV Bumex, nitroglycerin drip consultation to cardiology. ACS was ruled out per protocol. She was subsequently switched to by mouth Bumex and nitroglycerin drip was discontinued. Secondary to dyspnea and worsening shortness of breath pulmonary medicine was consulted and patient had thoracentesis performed on both lungs first on the right 06/16/16 and then on the left 06/17/16. She was continued on her medication for hypertension atrial fibrillation except Xarelto which was held. Walk test was performed secondary to acute hypoxia/hypoxemia which patient failed. She was placed on sliding scale insulin with monitor fingerstick blood glucose monitoring and subsequently Lantus was resumed. PT was consulted. Patient's vitals remained stable and her condition improved prior to discharge. Patient has been advised to hold on restarting Xarelto until outpatient colonoscopy performed secondary to anemia. Resume aspirin, once colonoscopy is performed patient can resume Xarelto and discontinue aspirin Pt Condition on Discharge: Stable Discharge Disposition: Disch w/ Home Health Serv Discharge Time: > 30 minutes Discharge Instructions DIET: Follow Instructions for: Diabetic Diet Activities you can perform: Regular-No Restrictions Follow up Referrals: Cardiology PCP Follow-up - 1 Week New Medications: Oxygen tank (Oxygen tank) 1 Ea Tank 2 LITER JUANJOSE.CANSatomi CONTINUOUS Oxygen Concentrator Portable Gaseous 2 L/min via Nasal Cannula Continuous For 99 months HYPOXEMIA PREVENTION #1 CYLINDER Amlodipine (Norvasc) 5 Mg Tab 5 MG PO DAILY Blood Pressure Management #30 TAB Bumetanide (Bumetanide) 1 Mg Tab 1 MG PO BID@,18 Prevent Heart Failure #60 TAB Continued Medications: Alprazolam (Xanax) 0.25 Mg Tab 0.25 MG PO Q8HR PRN anxiety Days 30 TAB Atorvastatin (Lipitor) 10 Mg Tab 10 MG PO HS Days 30 TAB Cyanocobalamin Inj (Cyanocobalamin Inj) 1,000 Mcg/Ml Inj 1000 MCG IM EVERY 2 WEEKS #1 Ref 0 VIAL Diltiazem (Diltiazem) 90 Mg Tab 90 MG PO q6 hr Angina #120 Ref [address] (Dul[address]etine DR) 60 Mg Capdr 120 MG PO DAILY Days 30 CAP Ergocalciferol (Drisdol) 50,000 Unit Cap 33977 UNITS PO WEEKLY ON MONDAYS Nutritional Supplement #30 Ref 0 CAP Fenofibrate (Fenofibrate) 160 Mg Tab 160 MG PO HS #30 Ref 0 TAB Insulin Aspart Inj (Novolog Inj) 1,000 Unit/10 Ml Vial 2-10 UNITS SQ ACHS Max dose at bedtime ( ) units; sugars less than 70,(0) units ; sugars 150-200,(2) units; sugars 201-250,(4) units; sugars 251-300,(6) units; sugars 301-350,(8) units; sugars 351-400. (10) units Blood Sugar Management #10 Ref 0 ML Insulin Glargine Inj (Lantus Inj) 100 Unit/Ml Inj 17 UNITS SQ HS Levothyroxine (Levothyroxine) 150 Mcg Tab 150 MCG PO DAILY@0600 Thyroid #30 Ref 0 TAB Metformin (Metformin) 500 Mg Tab 500 MG PO DAILY With a meal Blood Sugar Management #30 Ref 0 TAB Multiple Vitamins W/ Minerals (Thera M Plus) 1 Tab 1 TAB PO DAILY Days 30 TAB Nitroglycerin SL (Nitroglycerin SL) 0.4 Mg Subl 0.4 MG SL DIRECTED ONE TABLET UNDER THE TONGUE NEEDED FOR CHEST PAIN, MAY REPEAT EVERY FIVE MINUTES FOR A TOTAL OF 3 DOSES OR CALL 911 IF NO RELIEF PRN CHEST PAIN #100 Ref 0 TAB.SL Oxycodone-Acetaminophen (Oxycodone-Acetaminophen) 5-325 mg Tab 1 TAB PO Q6HR PRN PAIN SCALE 1 TO 5 #20 TAB Pantoprazole (Pantoprazole) 40 Mg Tab 40 MG PO DAILY Days 30 TAB Potassium Chloride ER (Klor-Con 10) 10 Meq Tab 10 MEQ PO DAILY Days 7 TAB Trazodone (Trazodone) 50 Mg Tab 50 MG PO HS Days 30 TAB Valacyclovir (Valtrex) 1 Gm Tab 1000 MG PO DAILY Mgmt Viral Infection #30 Ref 0 TAB Discontinued Medications: Bumetanide (Bumetanide) 1 Mg Tab 1 MG PO DAILY PRN EDEMA #30 Ref 0 TAB Meloxicam (Meloxicam) 7.5 Mg Tab 7.5 MG PO DAILY PRN arthritis pain Days 30 TAB Rommel Stevens MD Jun 18, 2016 12:10
[2016-06-18] MEDS: DULoxetine HCl DR 60 MG CAP PO SCH (12:34)
--- NOTE | 2016-06-18 13:07 | HHI.PR ---
Subjective Remarks Feels good. On o2 at 2 L. No chest pain. Will go home on O2 Objective Vital Signs Date Time Temp Pulse Resp B/P Pulse Ox O2 Delivery O2 Flow Rate FiO2 06/18/16 07:40 72 06/18/16 07:40 97.6 72 20 120/60 96 06/18/16 07:40 94 Nasal Cannula 3.00 06/18/16 06:00 84 06/18/16 05:00 69 06/18/16 04:00 74 06/18/16 03:00 98.6 76 18 123/52 92 06/18/16 03:00 75 06/18/16 02:00 75 06/18/16 01:00 76 06/18/16 00:00 68 06/17/16 23:00 98.8 69 18 115/55 93 06/17/16 23:00 93 Nasal Cannula 2.00 06/17/16 23:00 69 06/17/16 22:00 103 06/17/16 21:00 79 06/17/16 20:00 95 Nasal Cannula 2.00 06/17/16 20:00 98.7 71 18 128/64 95 06/17/16 20:00 70 06/17/16 19:44 98 2.00 06/17/16 19:00 87 06/17/16 18:17 98 Nasal Cannula 3.00 06/17/16 18:00 88 06/17/16 17:00 88 06/17/16 16:00 84 06/17/16 15:30 98.5 86 20 150/84 97 06/17/16 15:30 95 Nasal Cannula 3.00 06/17/16 15:30 86 06/17/16 15:00 75 06/17/16 14:00 69 I/O 06/17/16 06/17/16 06/17/16 06/18/16 06/18/16 06/18/16 07:00 15:00 23:00 07:00 15:00 23:00 Intake Total 480 ml 680 ml 240 ml Output Total 700 ml 900 ml Balance -220 ml 680 ml -660 ml Intake Oral 480 ml 680 ml 240 ml Output Urine Total 700 ml 900 ml # Voids 3 # Bowel Movements 0 1 0 Result Diagram: 06/16/16 0550 06/16/16 0550 Objective Remarks This is an elderly moderately overweight white female who is pale and in no acute distress. There is no icterus or peripheral edema. HEENT: Head normocephalic. Pupils reactive. Tongue is clear. Throat is clear. Neck: Supple. No bruits or thyroid enlargement. No lymphadenopathy. Chest: Equal movements with few basilar crackles more on the right side. .Decreased breath sounds. Heart: The heart sounds are irregular S1-S2. No murmur. The abdomen is soft, benign. No masses or organomegaly. Extremities: No edema with diminished pulses. Reflexes are 1+ with no gross motor deficits. Cranial nerves grossly intact. Rectal: Exam is deferred. Skin: No lesions. Assessment and Plan Assessment and Plan IMPRESSION: 1. CHF with cardiomyopathy. 2. History of atrial fibrillation. 3. Acute kidney injury, resolving. 4. Hypertension. 5. COPD with chronic bronchitis. Plan : 1. Home today 2. O2 3 l N/C 3. D/C Nebs 4. Will see As OP in 2 weeks. 5. Cont Bumex PO and Kcl. Santo Hanson MD Jun 18, 2016 13:07
--- NOTE | 2016-06-18 13:13 | HHI.FF ---
Face to Face Verification Diagnosis: (1) Respiratory failure, acute (2) Pleural effusion, bilateral Physical Therapy Order: Evaluate and Treat Home Health Nursing Order: Signs/symptoms of disease process I have seen patient Lorenza Garcia on 06/18/16. My clinical findings support the need for the requested home health care services because: Patient has SOB Deconditioned w/ increased weakness I certify that my clinical findings support that this patient is homebound because: Poor cardiac reserve Rommel Stevens MD Jun 18, 2016 13:12
[2016-07-10] MEDS ORDERED: COZA100T PO (04:16)
--- NOTE | 2016-07-11 13:05 | PQ ---
Physician Query Response Document PATIENT: SANTANA CARMICHAEL : 1940 ADMIT DATE: 06/11/2016 9:12 PM DISCH DATE: 06/18/2016 1:50 PM RESPONDING PROVIDER #: Heber QUERY TEXT: Present On Admission It is unclear whether a diagnosis was present on admission. Your help is needed. Please clarify the POA status Such as: ACUTE RESPIRATORY FAILURE -- Present on admission -- Not present on admission -- Rulled-out If you have any additional questions/comments and/or concerns please call [employer]/Coding Hotline [email or web address] The patient's Clinical Indicators include: Dr. PALOMO, documentation of Acute Respiratory Failure begins on 06-16-2016([facility] note). Please review the question below and answer to the best of your ability. THANK YOU Query created by: Noé Potts on 06/29/2016 5:18 AM RESPONSE TEXT: Respiratory failure present on admission after reviewing [facility] Electronically signed by: Rommel Palomo MD 07/11/2016 1:01 PM
--- NOTE | 2016-07-13 08:45 | RSPPFT ---
DATE OF PROCEDURE: 06/16/16 COMMENTS: Spirometry demonstrates an FEV1 of 0.4 at 24% of predicted, FVC of 0.5 at 24%, FEF 25-75 at 18% of predicted. Post-bronchodilator study demonstrated no significant change. Flow volume loop suggests a restrictive pattern. IMPRESSION: 1. Severe restrictive disease. 2. Additional mild to moderate obstructive disease. 3. No significant change following use of bronchodilator.
== END 2016-06-18 13:50 | disposition home health service (06) | DRG 291 ==
LOC: NEPE 17:38 → NEDA 21:12 → HCIN 06-12 01:22
PROVIDERS: ADMIT Hospitalist; ATTEND Hospitalist
PROC: 3E0F7GC Introduction of Other Therapeutic Substance into Respiratory Tract, Via Natural or Artificial Opening (ICD-10-PCS; 2016-06-11)
PROC: 0W993ZZ Drainage of Right Pleural Cavity, Percutaneous Approach (ICD-10-PCS; principal; 2016-06-16)
PROC: 0W9B3ZZ Drainage of Left Pleural Cavity, Percutaneous Approach (ICD-10-PCS; 2016-06-17)
DX: I50.33 Acute on chronic diastolic (congestive) heart failure (principal); J96.01 Acute respiratory failure with hypoxia; N17.9 Acute kidney failure, unspecified; I10 Essential (primary) hypertension; E11.9 Type 2 diabetes mellitus without complications; D64.9 Anemia, unspecified; I42.9 Cardiomyopathy, unspecified; J98.11 Atelectasis; I48.2 Chronic atrial fibrillation; J44.9 Chronic obstructive pulmonary disease, unspecified; I25.10 Atherosclerotic heart disease of native coronary artery without angina pectoris; K21.9 Gastro-esophageal reflux disease without esophagitis; M19.90 Unspecified osteoarthritis, unspecified site; G47.30 Sleep apnea, unspecified; E78.00 Pure hypercholesterolemia, unspecified; H91.90 Unspecified hearing loss, unspecified ear; E66.3 Overweight; Z79.4 Long term (current) use of insulin; E03.9 Hypothyroidism, unspecified; Z79.01 Long term (current) use of anticoagulants; Z95.1 Presence of aortocoronary bypass graft; Z95.5 Presence of coronary angioplasty implant and graft; Z98.84 Bariatric surgery status; Z99.81 Dependence on supplemental oxygen; F41.9 Anxiety disorder, unspecified; F32.9 Major depressive disorder, single episode, unspecified; I25.2 Old myocardial infarction; Z88.1 Allergy status to other antibiotic agents; Z88.0 Allergy status to penicillin; Z88.8 Allergy status to other drugs, medicaments and biological substances; R74.8 Abnormal levels of other serum enzymes
CPT/HCPCS: 32555; 71010; 71020; 76604; 80048; 80053; 82150; 82945; 82948; 83615; 83880; 83986; 84157; 84484; 85025; 85610; 85730; 87015; 87070; 87102; 87116; 87205; 87206; 89051; 93005; 93306; 94060; 94150; 94620; 96365; C1729; J1815

== ENCOUNTER 2016-07-09 17:08 | Inpatient (IN) | payer OTHER ==
[~2016-07-09] VITALS: Ht 157.5 cm; Wt 83.5 kg
[~2016-07-09 17:08] MED LIST changes: -ALBU1.25 NEB; +AMLO5 PO; -DILT60TA33 PO; +DILT90TA PO; -LEVO750T33 PO; -MELO7.5T4 PO; +OXYGENTANK NAS.CANULA
[2016-07-09 17:11] VITALS: BP 142/65; PULSE 65; RESP 16; TEMP 98.2; O2SAT 92
[2016-07-09] MEDS ORDERED: SODIUM CHLORIDE 0.9% FLUSH 5 ML FLUSH IVF PRN (17:45)
[2016-07-09] MEDS ORDERED: SODIUM CHLORID 0.9% 500 ML INJ 500 ML IV ONE (17:45)
[2016-07-09] MEDS ORDERED: methylPREDNISolone SOD SUCC 125 MG/2 ML VIAL IVP ONE (17:45)
[2016-07-09] MEDS: RESP: ALBUTEROL 2.5 MG/IPRATROPIUM 0.5 MG NEB (SCH) INH (18:01)
--- NOTE | 2016-07-09 18:08 | RADRPT ---
EXAM DATE/TIME: 07/09/2016 17:44 [facility] COMPARISON: CHEST SINGLE AP, June 17, 2016, 4:55. INDICATIONS : Shortness of breath MEDICAL HISTORY : Hypertension. Congestive heart failure. SURGICAL HISTORY : CABG. ENCOUNTER: Initial ACUITY: 1 day PAIN SCORE: 0/10 LOCATION: Bilateral chest FINDINGS: Median sternotomy wires are noted status post cardiac surgery. There is a small right pleural effusi on. Bibasilar patchiness is noted consistent with atelectasis and/or infiltrate. CONCLUSION: 1. Small right pleural effusion. 2. Bibasilar patchiness consistent with atelectasis and/or infiltrate. Jason Sellers MD on July 09, 2016 at 18:03 Board Certified Radiologist. This report was verified electronically.
--- NOTE | 2016-07-09 18:33 | PD ---
HPI Chief Complaint: Respiratory Symptoms Time Seen by Provider: 17:29 Travel History International Travel<30 days: No Contact w/Intl Traveler<30days: No Traveled to known affect area: No History of Present Illness HPI Patient is a 75-year-old female with history of COPD, hypertension, coronary disease with CABG, CHF, A. fib, diabetes, presents to emergency room with complaints of shortness of breath. Patient reports that for the past 3 days, she has been feeling increasingly short of breath. Patient reports that she does have history of COPD, reports that she does use 2 L nasal cannula at all times. Reports that she was recently discharged from the hospital and had prescription for inhalers. Patient reports that she lost her rescue inhaler. Patient reports no cough or congestion. Patient denies chest pain at this time. She reports that she short of breath at rest as well as short of breath on exertion. Patient with no fevers or chills at this time. PFSH Past Medical History Hx Anticoagulant Therapy: Yes Arthritis: Yes Asthma: No Atrial Fibrillation: Yes Autoimmune Disease: No Anxiety: Yes Depression: Yes Heart Rhythm Problems: Yes (A Fib) Cancer: No Cardiac Catheterization: Yes Cardiovascular Problems: Yes (TRIPLE BYPASS) High Cholesterol: Yes Chemotherapy: No Chest Pain: No Congestive Heart Failure: Yes COPD: Yes Cerebrovascular Accident: No Coronary Artery Disease: Yes Diabetes: Yes Patient Takes Glucophage: Yes (metformin this morning) Diminished Hearing: Yes Endocrine: Yes Gastrointestinal Disorders: Yes GERD: Yes Genitourinary: No Hiatal Hernia: Yes Heparin Induced Thrombocytopen: No Hypertension: Yes Immune Disorder: No Kidney Stones: No Musculoskeletal: Yes Neurologic: No Psychiatric: Yes Reproductive: No Respiratory: Yes (COPD) Migraines: No Pneumonia: Yes Radiation Therapy: No Renal Failure: No Seizures: No Sickle Cell Disease: No Sleep Apnea: Yes Thyroid Disease: Yes (Hypothyroid) Ulcer: Yes Past Surgical History Abdominal Surgery: Yes (gastric bypass) AICD: No Arteriovenous Shunt: No Cardiac Surgery: Yes (DE 2007 stent) Coronary Artery Bypass Graft: Yes (X3 February 2016) Coronary Stent: Yes (X`1) Ear Surgery: No Endocrine Surgery: No Eye Surgery: Yes (bilateral cataract sx) Genitourinary Surgery: No Gynecologic Surgery: No Insulin Pump: No Joint Replacement: No Neurologic Surgery: No Oral Surgery: Yes (teeth extraction, wisdom) Pacemaker: No Thoracic Surgery: No Other Surgery: Yes Social History Alcohol Use: Yes (socially) Tobacco Use: No Substance Use: No Allergies-Medications (Allergen,Severity, Reaction): Coded Allergies: Erythromycin (Verified Allergy, Unknown, 07/09/16) Lasix (Verified Allergy, Unknown, 07/09/16) Penicillin (Verified Allergy, Unknown, 07/09/16) Reported Meds & Prescriptions Reported Meds & Active Scripts Active Oxygen tank (Oxygen) 1 Ea Tank 2 Liter JUANJOSE.CANULA CONTINUOUS Oxygen Concentrator Portable Gaseous 2 L/min via Nasal Cannula Continuous For 99 months Bumetanide 1 Mg Tab 1 Mg PO BID@ Norvasc (Amlodipine Besylate) 5 Mg Tab 5 Mg PO DAILY Xarelto (Rivaroxaban) 20 Mg Tab 20 Mg PO DAILY Trazodone (Trazodone HCl) 50 Mg Tab 50 Mg PO HS 30 Days Klor-Con 10 (Potassium Chloride) 10 Meq Tab 10 Meq PO DAILY 7 Days Pantoprazole (Pantoprazole Sodium) 40 Mg Tab 40 Mg PO DAILY 30 Days Oxycodone-Acetaminophen 5-325 mg Tab 1 Tab PO Q6HR PRN Thera M Plus (Multivitamins/Minerals Therapeutic) 1 Tab 1 Tab PO DAILY [address] (Duloxetine HCl) 60 Mg Capdr 120 Mg PO DAILY 30 Days Lipitor (Atorvastatin Calcium) 10 Mg Tab 10 Mg PO HS 30 Days Aspirin Low Strength (Aspirin) 81 Mg Chew 81 Mg PO DAILY 30 Days Xanax (Alprazolam) 0.25 Mg Tab 0.25 Mg PO Q8HR PRN 30 Days Reported Diltiazem (Diltiazem HCl) 90 Mg Tab 90 Mg PO Q6 HR Novolog Inj (Insulin Aspart) 1,000 Unit/10 Ml Vial 2-10 Units SQ ACHS Max dose at bedtime ( ) units; sugars less than 70,(0) units; sugars 150-200,(2) units; sugars 201-250,(4) units; sugars 251-300,(6) units; sugars 301-350,(8) units; sugars 351-400. (10) units Nitroglycerin SL (Nitroglycerin) 0.4 Mg Subl 0.4 Mg SL DIRECTED PRN ONE TABLET UNDER THE TONGUE NEEDED FOR CHEST PAIN, MAY REPEAT EVERY FIVE MINUTES FOR A TOTAL OF 3 DOSES OR CALL 911 IF NO RELIEF Valtrex (Valacyclovir HCl) 1 Gm Tab 1,000 Mg PO DAILY Drisdol (Ergocalciferol) 50,000 Unit Cap 50,000 Units PO WEEKLY ON MONDAYS Cyanocobalamin Inj (Cyanocobalamin) 1,000 Mcg/Ml Inj 1,000 Mcg IM EVERY 2 WEEKS Lantus Inj (Insulin Glargine) 100 Unit/Ml Inj 17 Units SQ HS Metformin (Metformin HCl) 500 Mg Tab 500 Mg PO DAILY With a meal Levothyroxine (Levothyroxine Sodium) 150 Mcg Tab 150 Mcg PO DAILY@0600 Fenofibrate 160 Mg Tab 160 Mg PO HS Review of Systems General / Constitutional: No: Fever Eyes: No: Visual changes HENT: No: Headaches Cardiovascular: No: Chest Pain or Discomfort, Palpitations, Dyspnea on exertion Respiratory: Positive: Shortness of Breath, No: Cough Gastrointestinal: No: Nausea, Vomiting, Abdominal Pain Genitourinary: No: Dysuria Musculoskeletal: No: Pain Skin: No Rash Neurologic: No: Weakness Psychiatric: No: Depression Endocrine: No: Polydipsia Hematologic/Lymphatic: No: Easy Bruising Physical Exam Narrative GENERAL: mild distress SKIN: Warm and dry. HEAD: Atraumatic. Normocephalic. EYES: No injection or drainage. ENT: No nasal bleeding or discharge. Mucous membranes pink and moist. NECK: Trachea midline. No JVD. CARDIOVASCULAR: Regular rate and rhythm. No murmur appreciated. RESPIRATORY: No accessory muscle use. scattered wheezing on exam GASTROINTESTINAL: Abdomen soft, non-tender, nondistended. Hepatic and splenic margins not palpable. MUSCULOSKELETAL: No obvious deformities. No clubbing. No cyanosis. mild edema. NEUROLOGICAL: Awake and alert. No obvious cranial nerve deficits. Motor grossly within normal limits. Normal speech. PSYCHIATRIC: Appropriate mood and affect; insight and judgment normal. Data Data Last Documented VS Vital Signs Date Time Temp Pulse Resp B/P Pulse Ox O2 Delivery O2 Flow Rate FiO2 07/09/16 17:11 98.2 65 16 142/65 92 Orders Complete Blood Count With Diff (07/09/16 17:34) Comprehensive Metabolic Panel (07/09/16 17:34) B-Type Natriuretic Peptide (07/09/16 17:34) Act Partial Throm Time (Ptt) (07/09/16 17:34) Prothrombin Time / Inr (Pt) (07/09/16 17:34) Magnesium (Mg) (07/09/16 17:34) Ckmb (Isoenzyme) Profile (07/09/16:34) Troponin I (07/09/16:34) Urinalysis - C+S If Indicated (07/09/16:34) Influenzae A/B Antigen (07/09/16:34) Blood Culture (07/09/16:34) Iv Access Insert/Monitor (07/09/16:34) Electrocardiogram (07/09/16:34) Ecg Monitoring (07/09/16:34) Oximetry (07/09/16:34) Oxygen Administration (07/09/16:34) Chest, Single Ap (07/09/16:34) Sodium Chloride 0.9% Flush (Ns Flush) (07/09/16 17:45) Methylprednisolone So Succ Inj (Solumedr (07/09/16 17:45) Albuterol-Ipratropium Neb (Duoneb Neb) (07/09/16 17:45) Sodium Chlorid 0.9% 500 Ml Inj (Ns 500 M (07/09/16 17:45) Consult Vascular Access Team (07/09/16 ) Vascular Poc Ultrasound (07/09/16 ) MDM Medical Decision Making Medical Screen Exam Complete: Yes Emergency Medical Condition: Yes Interpretation(s) Vital Signs Date Time Temp Pulse Resp B/P Pulse Ox O2 Delivery O2 Flow Rate FiO2 07/09/16 17:11 98.2 65 16 142/65 92 Differential Diagnosis COPD exacerbation, CHF exacerbation, ACS, arrhythmia, pneumonia, influenza Narrative Course Patient is a 74-year-old female with history of COPD on chronic home oxygen, presents to emergency room with complaints of shortness of breath. Patient reports that he has been short of breath for the past 3 days, reports that she is short of breath at rest as well as on exertion. Patient reports that she is wheezing, reports that she normally uses a rescue inhaler but can't seem to find it. Patient reports that symptoms are getting progressively worse. Patient was placed on cardiac monitor technician and continuous pulse oximeter as well as oxygen and upon arrival to emergency room. EKG ordered ABG, lab work and x-ray chest ordered for evaluation of symptoms. IV steroids as well as neb treatments ordered for patient. ABG canceled as Damián with Respiratory Therapy cannot obtain sample at this time. Margoth De La Cruz DO Jul 09, 2016 18:33
[2016-07-09 19:02] VITALS: RESP 20
[2016-07-09 19:03] VITALS: BP 168/67; PULSE 62; RESP 16; TEMP 98.2; O2SAT 92
[2016-07-09 19:27] LABS: AUTOMATED NEUTROPHIL # 5.3 TH/MM3 (1.8-7.7); BASOPHIL % 0.7 % (0.0-2.0); EOSINOPHIL # 0.1 TH/MM3 (0-0.4); EOSINOPHIL % 1.6 % (0.0-4.0); HEMATOCRIT 27.4 % (35.0-46.0); LYMPH % 12.4 % (9.0-44.0); LYMPHOCYTE # 0.8 TH/MM3 (1.0-4.8); MEAN CELL VOLUME 72.5 FL (80.0-100.0); MEAN CORPUSCULAR HEMOGLOBIN 22.2 PG (27.0-34.0); MEAN CORPUSCULAR HGB CONC 30.7 % (32.0-36.0); MONO % 7.2 % (0.0-8.0); NEUT % 78.1 % (16.0-70.0); PLATELET COUNT 321 TH/MM3 (150-450); RED BLOOD COUNT 3.78 MIL/MM3 (4.00-5.30); RED CELL DISTRIBUTION WIDTH 19.9 % (11.6-17.2); WHITE BLOOD COUNT 6.8 TH/MM3 (4.0-11.0)
[2016-07-09 19:30] LABS: BLOOD, URINE NEG (NEG); GLUCOSE,URINE NEG (NEG); HYALINE CAST, URINE 7 /lpf (RARE); KETONE, URINE NEG (NEG); NITRITE,URINE NEG (NEG); URINE COLOR LIGHT-YELLOW (YELLW/STRAW)
[2016-07-09 19:32] LABS: COMMENT (UR) CULT NOT INDICATED; CULTURE IF INDICATED CULT NOT INDICATED
[2016-07-09 19:36] LABS: HEMO FLAGS AUTO DIFF
[2016-07-09 19:43] LABS: ANION GAP 9 MEQ/L (5-15); AST (GOT) 25 U/L (15-37); BICARBONATE 27.7 MEQ/L (21.0-32.0); BLOOD UREA NITROGEN 34 MG/DL (7-18); CHLORIDE 103 MEQ/L (98-107); GLOMERULAR FILTRATION RATE 32 ML/MIN (>89); MAGNESIUM 1.7 MG/DL (1.5-2.5); POTASSIUM 4.2 MEQ/L (3.5-5.1); SODIUM (NA) 140 MEQ/L (136-145)
[2016-07-09 19:48] LABS: ALKALINE PHOSPHATASE 54 U/L (45-117); ALT (GPT) 20 U/L (10-53); TOTAL BILIRUBIN ADULT 0.4 MG/DL (0.2-1.0)
[2016-07-09 19:53] LABS: CREATINE KINASE 64 U/L (26-192)
[2016-07-09 20:01] LABS: APTT (PATIENT) 29.4 SEC (24.3-30.1); INTERNATIONAL NORMALIZED RATIO 1.1 RATIO; PROTHROMBIN TIME - PATIENT 11.7 SEC (9.8-11.6)
[2016-07-09 20:19] LABS: OVALOCYTES 1+ (NORMAL); PLATELET ESTIMATE SMEAR NORMAL (NORMAL); PLATELET MORPHOLOGY NORMAL (NORMAL); SCAN/DIFF AUTO DIFF CONFIRMED
[2016-07-09] MEDS ORDERED: BUMETANIDE INJ 1 MG/4 ML VIAL IV PUSH ONE (21:00)
--- NOTE | 2016-07-09 21:14 | PD ---
Data Data Last Documented VS Vital Signs Date Time Temp Pulse Resp B/P Pulse Ox O2 Delivery O2 Flow Rate FiO2 07/09/16 19:03 98.2 62 16 168/67 92 Nasal Cannula 2 Orders Complete Blood Count With Diff (07/09/16 17:34) Comprehensive Metabolic Panel (07/09/16 17:34) B-Type Natriuretic Peptide (07/09/16 17:34) Act Partial Throm Time (Ptt) (07/09/16:34) Prothrombin Time / Inr (Pt) (07/09/16 17:34) Magnesium (Mg) (07/09/16 17:34) Ckmb (Isoenzyme) Profile (07/09/16:34) Troponin I (07/09/16:34) Urinalysis - C+S If Indicated (07/09/16:34) Influenzae A/B Antigen (07/09/16 17:34) Blood Culture (07/09/16 17:34) Iv Access Insert/Monitor (07/09/16:34) Electrocardiogram (07/09/16 17:34) Ecg Monitoring (07/09/16 17:34) Oximetry (07/09/16 17:34) Oxygen Administration (07/09/16 17:34) Chest, Single Ap (07/09/16 17:34) Sodium Chloride 0.9% Flush (Ns Flush) (07/09/16 17:45) Methylprednisolone So Succ Inj (Solumedr (07/09/16 17:45) Albuterol-Ipratropium Neb (Duoneb Neb) (07/09/16 17:45) Sodium Chlorid 0.9% 500 Ml Inj (Ns 500 M (07/09/16 17:45) Consult Vascular Access Team (07/09/16 ) Vascular Poc Ultrasound (07/09/16 ) Bumetanide Inj (Bumex Inj) (07/09/16 21:00) Admit Order (Ed Use Only) (07/09/16 21:37) Labs Laboratory Tests Test 07/09/16 07/09/16 18:55 19:10 Urine Color LIGHT-YELLOW Urine Turbidity CLEAR Urine pH 5.0 Urine Specific [place] 1.007 Urine Protein TRACE mg/dL Urine Glucose (UA) NEG mg/dL Urine Ketones NEG mg/dL Urine Occult Blood NEG Urine Nitrite NEG Urine Bilirubin NEG Urine Urobilinogen LESS THAN 2.0 MG/DL Urine Leukocyte Esterase NEG Urine RBC /hpf Urine WBC 1 /hpf Urine Squamous Epithelial /hpf Cells Urine Hyaline Casts 7 /lpf Microscopic Urinalysis Comment CULT NOT INDICATED White Blood Count 6.8 TH/MM3 Red Blood Count 3.78 MIL/MM3 Hemoglobin 8.4 GM/DL Hematocrit 27.4 % Mean Corpuscular Volume 72.5 FL Mean Corpuscular Hemoglobin 22.2 PG Mean Corpuscular Hemoglobin 30.7 % Concent Red Cell Distribution Width 19.9 % Platelet Count 321 TH/MM3 Mean Platelet Volume 8.7 FL Neutrophils (%) (Auto) 78.1 % Lymphocytes (%) (Auto) 12.4 % Monocytes (%) (Auto) 7.2 % Eosinophils (%) (Auto) 1.6 % Basophils (%) (Auto) 0.7 % Neutrophils # (Auto) 5.3 TH/MM3 Lymphocytes # (Auto) 0.8 TH/MM3 Monocytes # (Auto) 0.5 TH/MM3 Eosinophils # (Auto) 0.1 TH/MM3 Basophils # (Auto) 0.0 TH/MM3 CBC Comment AUTO DIFF Differential Comment AUTO DIFF CONFIRMED Platelet Estimate NORMAL Platelet Morphology Comment NORMAL Ovalocytes 1+ Prothrombin Time 11.7 SEC Prothromb Time International 1.1 RATIO Ratio Activated Partial 29.4 SEC Thromboplast Time Sodium Level 140 MEQ/L Potassium Level 4.2 MEQ/L Chloride Level 103 MEQ/L Carbon Dioxide Level 27.7 MEQ/L Anion Gap 9 MEQ/L Blood Urea Nitrogen 34 MG/DL Creatinine 1.57 MG/DL Estimat Glomerular Filtration 32 ML/MIN Rate Random Glucose 142 MG/DL Calcium Level 8.6 MG/DL Magnesium Level 1.7 MG/DL Total Bilirubin 0.4 MG/DL Aspartate Amino Transf 25 U/L (AST/SGOT) Alanine Aminotransferase 20 U/L (ALT/SGPT) Alkaline Phosphatase 54 U/L Total Creatine Kinase 64 U/L Troponin I 0.16 NG/ML B-Type Natriuretic Peptide 549 PG/ML Total Protein 7.0 GM/DL Albumin 3.2 GM/DL [facility] Supervised Visit with MIKE: No Narrative Course This is a 75-year-old female who has a history of congestive heart failure who presents the emergency department with increasing shortness of breath that started yesterday morning and has been worsening throughout the day. She is hypoxic on room air to 86%. She says she only uses her oxygen at nighttime. She was very dyspneic when standing up to go to the bathroom despite some bronchodilator treatments and methylprednisolone. Chest x-ray demonstrates a right sided pleural effusion. I suspect the patient has reaccumulation of fluid that was drained by thoracentesis on her last admission. Her BNP is the highest it's ever been. She was given a dose of Bumex. Dry CT of the chest was ordered and patient will be admitted for further management. Diagnosis Primary Impression: Pleural effusion Admitting Information Admitting Physician Requests: Admit Ingrid Gracia MD Jul 09, 2016 21:14
[2016-07-09 21:57] VITALS: BP 160/72; PULSE 66; RESP 16; TEMP 98.2; O2SAT 96
--- NOTE | 2016-07-09 22:32 | RADRPT ---
EXAM DATE/TIME: 07/09/2016 22:00 [facility] COMPARISON: No previous studies available for comparison. INDICATIONS : Shortness of breath today. RADIATION DOSE: 4.30 CTDIvol (mGy) MEDICAL HISTORY : Cardiovascular disease. Myocardial infarction. Diabetes mellitus type 2. Coronary artery disease. Con gestive heart failure. SURGICAL HISTORY : CABG Stents. ENCOUNTER: Initial ACUITY: 1 day PAIN SCALE: 0/10 LOCATION: chest TECHNIQUE: Volumetric scanning of the chest was performed. Using automated exposure control and adjustment of t he mA and/or kV according to patient size, radiation dose was kept as low as reasonably achievable to obtain optimal diagnostic quality images. FINDINGS: There are moderate bilateral pleural effusions. There is fairly dense consolidation of the right midd le lobe which is a new finding since previous February. Air bronchograms present. There is additional faint scattered airspace disease in both lungs. There is previous median sternotomy. Severe coronary calcifications noted. No acute findings in the u pper abdomen. CONCLUSION: 1. Dense consolidation in the right middle lobe most characteristic of pneumonia. Additional scattere d subsegmental opacity in both lungs that may be infectious. 2. Moderate bilateral pleural effusions. 3. Cardiomegaly with severe coronary calcifications. Postop CABG. Coronary stents present. Frank Azul MD on July 09, 2016 at 22:24 Board Certified Radiologist. This report was verified electronically.
--- NOTE | 2016-07-09 23:58 | RADRPT ---
EXAM DATE/TIME: 07/09/2016 23:19 [facility] COMPARISON: CT THORAX W/O CONTRAST, July 09, 2016, 22:00. INDICATIONS : Shortness of breath for 2 days. DOSE: 8.1 mCi Tc99m MAA IV 0.3 mCi Tc99m DTPA aerosol MEDICAL HISTORY : Chronic obstructive pulmonary disease. Myocardial infarction. Congestive heart failure. SURGICAL HISTORY : CABG Gastric bypass. ENCOUNTER: Initial ACUITY: 2 days PAIN SCALE: 2/10 LOCATION: Bilateral chest TECHNIQUE: Following five minutes of tidal breathing of DTPA aerosol, planar images of the lungs were performed in eight projections. The patient was then injected with MAA, and eight-view perfusion scan was perf ormed. FINDINGS: Comparison noncontrast chest CT shows bilateral pleural effusions and right greater the left airspace consolidation. There is mild and reasonably matched ventilation and perfusion heterogeneity. No tommie pheral wedge-shaped areas of perfusion deficit are seen. CONCLUSION: Intermediate probability study. Heterogeneous perfusion but reasonably matched to ventilation, not in a pattern typical of pulmonary embolus, and seen in the setting of bilateral pleural effusions and r ight greater than left airspace consolidation. Mango Jones MD on July 09, 2016 at 23:53 Board Certified Radiologist. This report was verified electronically.
[2016-07-10] VITALS (11 sets, daily range): BP systolic 138–196; BP diastolic 60–106; PULSE 48–88; RESP 16–24; TEMP 96.1–98.6; O2SAT 92–97
[2016-07-10] MEDS ORDERED: SODIUM CHLORIDE 0.9% FLUSH 5 ML FLUSH FLUSH PRN
[2016-07-10] MEDS ORDERED: NALOXONE HCL 0.4 MG/ML AMP IV PRN
[2016-07-10] MEDS ORDERED: ONDANSETRON HCL 4 MG/2 ML VIAL IVP PRN
[2016-07-10] MEDS ORDERED: ACETAMINOPHEN 325 MG TAB PO PRN
[2016-07-10] MEDS ORDERED: SENNOSIDES 8.6 MG TAB PO PRN
[2016-07-10] MEDS ORDERED: AZTREONAM INJ 2,000 MG in SODIUM CHLORIDE 0.9% INJ 100 ML IV SCH (00:15)
[2016-07-10] MEDS ORDERED: LEVOFLOXACIN 750 MG PREMIX INJ 150 ML IV ONE (00:15)
[2016-07-10] MEDS ORDERED: GLUCAGON 1 MG/ML VIAL OTHER PRN (00:15)
[2016-07-10] MEDS ORDERED: DEXTROSE 50% IN WATER 50 ML VIAL(D50) IV PUSH PRN (00:15)
[2016-07-10] MEDS: AZTREONAM 1,000 MG/NS 100 ML IV SCH ×4 (03:38→08:32)
--- NOTE | 2016-07-10 04:03 | HHI.HP ---
[facility] Remigio Lee, Admission Diagnosis pleural effusion, hypoxia Diagnoses: (1) Pneumonia (2) Pleural effusion, bilateral (3) JULIANE (acute kidney injury) Chief Complaint: Difficulty breathing with increasing oxygen needs Travel History International Travel<30 Days: No Contact w/Intl Traveler <30 Da: No Traveled to Known Affected Are: No History of Present Illness Ms. Garcia is a 75-year-old female with a past history of hypothyroidism, coronary artery disease status post stent placement 2007 and coronary artery bypass graft 01 March 2016, congestive heart failure, hyperlipidemia, atrial fibrillation on Xarelto, hypertension, COPD, and GERD who presents to the emergency room on 07/09/2016 complaining of difficulty breathing for a duration of 3 days with increasing home oxygen requirements. The patient is seen in her hospital room. She reports difficulty breathing began 3 days ago and progressively worsened. She usually requires 2 L of oxygen via nasal cannula at home and only uses it at night. Over the past 2 days, she has been requiring oxygen during the day to and it has been ineffective in relieving her severe dyspnea. She reports dry cough with no sputum production and no recent increase in cough. She denies fever, chest pain , abdominal pain, diarrhea, constipation. She states she takes Bumex at home and had a thoracentesis 3 weeks ago. Echo 03/09/16 w/ EF 55-60% Review of Systems Except as stated in HPI: all other systems reviewed are Neg Past Family Social History Past Medical History hypothyroidism, coronary artery disease status post stent placement 2007 and coronary artery bypass graft 01 March 2016, congestive heart failure, hyperlipidemia, arthritis, diabetes mellitus, atrial fibrillation on Xarelto, hypertension, COPD, and GERD Echo 03/09/16 w/ EF 55-60% . Past Surgical History CABG 3 in February 2016 Gastric bypass Back surgery Bilateral cataract surgery Reported Medications Reported Meds & Active Scripts Active Oxygen tank (Oxygen) 1 Ea Tank 2 Liter JUANJOSE.CANM-KOPA CONTINUOUS Oxygen Concentrator Portable Gaseous 2 L/min via Nasal Cannula Continuous For 99 months Bumetanide 1 Mg Tab 1 Mg PO BID@09,18 Norvasc (Amlodipine Besylate) 5 Mg Tab 5 Mg PO DAILY Xarelto (Rivaroxaban) 20 Mg Tab 20 Mg PO DAILY Trazodone (Trazodone HCl) 50 Mg Tab 50 Mg PO HS 30 Days Klor-Con 10 (Potassium Chloride) 10 Meq Tab 10 Meq PO DAILY 7 Days Pantoprazole (Pantoprazole Sodium) 40 Mg Tab 40 Mg PO DAILY 30 Days Oxycodone-Acetaminophen 5-325 mg Tab 1 Tab PO Q6HR PRN Thera M Plus (Multivitamins/Minerals Therapeutic) 1 Tab 1 Tab PO DAILY [address] (Duloxetine HCl) 60 Mg Capdr 120 Mg PO DAILY 30 Days Lipitor (Atorvastatin Calcium) 10 Mg Tab 10 Mg PO HS 30 Days Aspirin Low Strength (Aspirin) 81 Mg Chew 81 Mg PO DAILY 30 Days Xanax (Alprazolam) 0.25 Mg Tab 0.25 Mg PO Q8HR PRN 30 Days Reported Diltiazem (Diltiazem HCl) 90 Mg Tab 90 Mg PO Q6 HR Novolog Inj (Insulin Aspart) 1,000 Unit/10 Ml Vial 2-10 Units SQ ACHS Max dose at bedtime ( ) units; sugars less than 70,(0) units; sugars 150-200,(2) units; sugars 201-250,(4) units; sugars 251-300,(6) units; sugars 301-350,(8) units; sugars 351-400. (10) units Nitroglycerin SL (Nitroglycerin) 0.4 Mg Subl 0.4 Mg SL DIRECTED PRN ONE TABLET UNDER THE TONGUE NEEDED FOR CHEST PAIN, MAY REPEAT EVERY FIVE MINUTES FOR A TOTAL OF 3 DOSES OR CALL 911 IF NO RELIEF Valtrex (Valacyclovir HCl) 1 Gm Tab 1,000 Mg PO DAILY Drisdol (Ergocalciferol) 50,000 Unit Cap 50,000 Units PO WEEKLY ON MONDAYS Cyanocobalamin Inj (Cyanocobalamin) 1,000 Mcg/Ml Inj 1,000 Mcg IM EVERY 2 WEEKS Lantus Inj (Insulin Glargine) 100 Unit/Ml Inj 17 Units SQ HS Metformin (Metformin HCl) 500 Mg Tab 500 Mg PO DAILY With a meal Levothyroxine (Levothyroxine Sodium) 150 Mcg Tab 150 Mcg PO DAILY@0600 Fenofibrate 160 Mg Tab 160 Mg PO HS Allergies: Coded Allergies: Erythromycin (Verified Allergy, Unknown, 2/10/17) Lasix (Verified Allergy, Unknown, 07/09/16) Penicillin (Verified Allergy, Unknown, 07/09/16) Active Ordered Medications Current Medications IV Flush (NS Flush) 2 ml UNSCH PRN IVF FLUSH AFTER USING IV ACCESS Last administered on 07/09/16 18:59; Start 07/09/16 at 17:45; Stop 07/10/16 at 00:09 ; Status DC Methylprednisolone Sodium Succinate (SoluMEDROL INJ) 125 mg ONCE ONCE IVP Last administered on 07/09/16 18:59; Start 07/09/16 at 17:45; Stop 07/09/16 at 17:46; Status DC Albuterol/ Ipratropium 1 ampule 1 ampule Q15M INH Last administered on 18:01; Start 07/09/16 at 17:45; Stop 07/09/16 at 18:16; Status DC Sodium Chloride (NS 500 ml Inj) 500 ml @ 500 mls/hr BOLUS ONCE IV Last administered on 07/09/16 18:59; Start 07/09/16 at 17:45; Stop 07/09/16 at 18:44 ; Status DC Bumetanide (Bumex Inj) 1 mg ONCE ONCE IV PUSH Last administered on 07/09/16 21:10; Start 07/09/16 at 21:00; Stop 07/09/16 at 21:01; Status DC IV Flush (NS Flush) 2 ml UNSCH PRN FLUSH FLUSH AFTER USING IV ACCESS; Start 04/15 at 00:00 IV Flush (NS Flush) 2 ml BID FLUSH ; Start 07/10/16 at 09:00 Acetaminophen (Tylenol) 650 mg Q4H PRN PO TEMP > 100.4; Start 07/10/16 at 00:00 Ondansetron HCl (Zofran Inj) 4 mg Q6H PRN IVP NAUSEA OR VOMITING; Start at 00:00 Sennosides (Senokot) 17.2 mg Q12H PRN PO CONSTIPATION; Start 07/10/16 at 00:00 Naloxone HCl (Narcan Inj) 0.4 mg UNSCH PRN IV SEE LABEL COMMENTS; Start at 00:00 Dextrose (D50w (Vial) Inj) 25 ml UNSCH PRN IV PUSH HYPOGLYCEMIA-SEE COMMENTS; Start 07/10/16 at 00:15 Glucagon (Glucagon Inj) 1 mg UNSCH PRN OTHER HYPOGLYCEMIA-SEE COMMENTS; Start 07/10/16 at 00:15 Insulin Aspart 1 1 ACHS SLIDING SCALE SQ ; Start 07/10/16 at 07:00 Aztreonam 2000 mg/ Sodium Chloride 100 ml @ 200 mls/hr Q8H IV ; Start 07/10/16 at 00:15; Status UNV Levofloxacin/ Dextrose 150 ml @ 100 mls/hr ONCE ONCE IV Last administered on 07/10/16t 01:11; Start 07/10/16 at 00:15; Stop 07/10/16 at 01:44; Status DC Aztreonam 1000 mg/ Sodium Chloride 100 ml @ 200 mls/hr Q8H IV ; Start 07/10/16 at 01:00 Levofloxacin/ Dextrose (Levaquin 750 Mg Premix Inj) 150 ml @ 100 mls/hr Q48H IV ; Start 07/12/16 at 00:00 Bumetanide (Bumetanide) 1 mg BID@09,18 PO ; Start 07/10/16 at 09:00 Family History Father from myocardial infarction Mother from myocardial infarction . Social History Tobacco: Quit smoking 30 years ago Alcohol: Denies daily alcohol use . Physical Exam Vital Signs Vital Signs Date Time Temp Pulse Resp B/P Pulse Ox O2 Delivery O2 Flow Rate FiO2 07/10/16 02:21 96 Nasal Cannula 3.00 07/10/16 02:02 98.4 88 18 196/106 97 07/10/16 00:00 70 16 150/68 96 Nasal Cannula 3 07/09/16 21:57 98.2 66 16 160/72 96 Nasal Cannula 3 07/09/16 19:03 98.2 62 16 168/67 92 Nasal Cannula 2 07/09/16 19:02 20 07/09/16 19:01 86 Nasal Cannula 2 07/09/16 17:11 98.2 65 16 142/65 92 Physical Exam GENERAL: This is a very pale, frail-appearing elderly female patient, in no apparent distress. SKIN: No rashes, ecchymoses or lesions. Cool and dry. HEAD: Atraumatic. Normocephalic. EYES: No scleral icterus. No injection or drainage. ENT: Nose without bleeding, purulent drainage. NECK: Trachea midline. No JVD or lymphadenopathy. CARDIOVASCULAR: Irregularly irregular rate and rhythm, 2/6 systolic heart murmur best auscultated over aortic area; +1 pitting bilateral lower extremity edema RESPIRATORY: Clear to auscultation. Breath sounds equal bilaterally. No wheezes , rales, or rhonchi. GASTROINTESTINAL: Abdomen tense, non-tender, nondistended. No guarding. Possibly liver enlarged. MUSCULOSKELETAL: Extremities without clubbing, cyanosis, or edema. No calf tenderness. NEUROLOGICAL: Awake and alert. Motor and sensory grossly within normal limits. Normal speech. . Laboratory Laboratory Tests Test 07/09/16 07/09/16 07/10/16 18:55 19:10 01:30 Urine Color LIGHT-YELLOW Urine Turbidity CLEAR Urine pH 5.0 Urine Specific [place] 1.007 Urine Protein TRACE Urine Glucose (UA) NEG Urine Ketones NEG Urine Occult Blood NEG Urine Nitrite NEG Urine Bilirubin NEG Urine Urobilinogen LESS THAN 2.0 Urine Leukocyte Esterase NEG Urine RBC Urine WBC 1 Urine Squamous Epithelial Cells Urine Hyaline Casts 7 Microscopic Urinalysis Comment CULT NOT INDICATED White Blood Count 6.8 Red Blood Count 3.78 Hemoglobin 8.4 Hematocrit 27.4 Mean Corpuscular Volume 72.5 Mean Corpuscular Hemoglobin 22.2 Mean Corpuscular Hemoglobin 30.7 Concent Red Cell Distribution Width 19.9 Platelet Count 321 Mean Platelet Volume 8.7 Neutrophils (%) (Auto) 78.1 Lymphocytes (%) (Auto) 12.4 Monocytes (%) (Auto) 7.2 Eosinophils (%) (Auto) 1.6 Basophils (%) (Auto) 0.7 Neutrophils # (Auto) 5.3 Lymphocytes # (Auto) 0.8 Monocytes # (Auto) 0.5 Eosinophils # (Auto) 0.1 Basophils # (Auto) 0.0 CBC Comment AUTO DIFF Differential Comment AUTO DIFF CONFIRMED Platelet Estimate NORMAL Platelet Morphology Comment NORMAL Ovalocytes 1+ Prothrombin Time 11.7 Prothromb Time International 1.1 Ratio Activated Partial 29.4 Thromboplast Time Sodium Level 140 Potassium Level 4.2 Chloride Level 103 Carbon Dioxide Level 27.7 Anion Gap 9 Blood Urea Nitrogen 34 Creatinine 1.57 Estimat Glomerular Filtration 32 Rate Random Glucose 142 Calcium Level 8.6 Magnesium Level 1.7 Total Bilirubin 0.4 Aspartate Amino Transf 25 (AST/SGOT) Alanine Aminotransferase 20 (ALT/SGPT) Alkaline Phosphatase 54 Total Creatine Kinase 64 Troponin I 0.16 0.15 B-Type Natriuretic Peptide 549 Total Protein 7.0 Albumin 3.2 Date/Time Procedure Status Source Growth 07/09/16 19:10 Aerobic Blood Culture Received Blood Peripheral Pending 07/09/16 19:10 Anaerobic Blood Culture Received Blood Peripheral Pending 07/09/16 19:00 Influenza Types A,B Antigen (CARINA) - Final Complete Nasal Aspirate NEGATIVE FOR FLU A AND B ANTIGEN.... 07/09/16 18:15 Legionella Antigen Received Urine Clean Catch Pending 07/09/16 18:15 Streptococcus pneumoniae Antigen (M Received Urine Clean Catch Pending Result Diagram: 07/09/16190907/09/161909 Imaging Last Impressions Chest X-Ray 07/09/16 1734 Signed Impressions: Service Date/Time: Saturday, July 09, 2016 17:44 - CONCLUSION: 1. Small right pleural effusion. 2. Bibasilar patchiness consistent with atelectasis and/or infiltrate. Jason Sellers MD Lung Scan- Nuclear Medicine 07/09/16 0000 Signed Impressions: Service Date/Time: Saturday, July 09, 2016 23:19 - CONCLUSION: Intermediate probability study. Heterogeneous perfusion but reasonably matched to ventilation, not in a pattern typical of pulmonary embolus, and seen in the setting of bilateral pleural effusions and right greater than left airspace consolidation. Mango Jones MD Chest CT 07/09/16 0000 Signed Impressions: Service Date/Time: Saturday, July 09, 2016 22:00 - CONCLUSION: 1. Dense consolidation in the right middle lobe most characteristic of pneumonia. Additional scattered subsegmental opacity in both lungs that may be infectious. 2. Moderate bilateral pleural effusions. 3. Cardiomegaly with severe coronary calcifications. Postop CABG. Coronary stents present. Frank Azul MD . Assessment and Plan Problem List: (1) Pneumonia ICD Code: J18.9 Status: Acute (2) Pleural effusion, bilateral ICD Code: J90 Status: Acute (3) CHF (congestive heart failure) ICD Code: I50.9 Status: Acute (4) JULIANE (acute kidney injury) ICD Code: N17.9 Status: Acute Assessment and Plan Right middle lobe pneumonia - suspect HCAP - Patient hospitalized 3 times since open heart surgery in February 2016, most recent hospitalization June 11, 2016 through June 18, 2016 - Patient allergic to penicillin and erythromycin - Levofloxacin 750 mg IV every 24 hours - Aztreonam 1 g IV every 8 hours - Check urine for Legionella and pneumococcal antigens - Check sputum culture and downgrade antibiotics if able according to clinical course - Duonebs q4h PRN sob/wheezing Pleural effusion - Consult pulmonology Congestive heart failure - Bumex 1 mg by mouth twice a day - Trend troponin 1 to rule out ACS - Monitor I and O's - Heart healthy diet - Continuous cardiac telemetry Increased Troponin: -mostly due to CHF, cont cycling Acute kidney injury - BUN 34, creatinine 1.57, estimated GFR 32 - Repeat BMP in a.m. and follow trends in renal indices - Avoid nephrotoxins when possible Anemia - Hemoglobin 8.4 and hematocrit 27.4; microcytic, hypochromic - Repeat CBC in a.m. and follow trends - We'll check iron studies and ferritin level - Follow results DVT prophylaxis - Continue home Xarelto Written by Criss Hernandez, acting as scribe for Dr. Menjivar on 07/10/16 at 02:20. . Discussed Condition With ER physician, RN, and patient . Physician Certification 2 Midnight Certification Type: Admission for Inpatient Services Order for Inpatient Services The services are ordered in accordance with Medicare regulations or non- Medicare payer requirements, as applicable. In the case of services not specified as inpatient-only, they are appropriately provided as inpatient services in accordance with the 2-midnight benchmark. Estimated LOS (days): 3 days is the estimated time the patient will need to remain in the hospital, assuming treatment plan goals are met and no additional complications. Post-Hospital Plan: Not yet determined Criss Hernandez Jul 10, 2016 04:03 Eva Menjivar MD Jul 10, 2016 05:03
[2016-07-10] MEDS ORDERED: COZA100T PO ×2 (04:16)
[2016-07-10] MEDS ORDERED: MELO7.5T4 PO (04:28)
[2016-07-10] MEDS ORDERED: METO50TA PO (04:46)
[2016-07-10] MEDS ORDERED: hydrALAZINE HCL 20 MG/ML VIAL IV PRN (06:00)
[2016-07-10] MEDS ORDERED: cloNIDine HCL 0.1 MG TAB PO PRN (06:00)
[2016-07-10] MEDS ORDERED: NITROGLYCERIN 0.4 MG SL 25 TABS/BTL SL PRN (06:00)
[2016-07-10] MEDS: RESP: ALBUTEROL 2.5 MG/IPRATROPIUM 0.5 MG NEB (PRN) NEB ×2 (06:37→16:40)
[2016-07-10] MEDS: LEVOTHYROXINE SODIUM 150 MCG TAB PO SCH (07:00)
[2016-07-10] MEDS ORDERED: INSULIN ASPART SUPPLEMENTAL SCALE SQ SCH (07:00)
[2016-07-10] MEDS: INSULIN ASPART SUPPLEMENTAL SCALE SQ SCH ×4 (07:01→20:54)
[2016-07-10] MEDS: DILTIAZEM HCL 90 MG TAB PO SCH ×4 (07:03→23:50)
[2016-07-10 07:56] LABS: AUTOMATED NEUTROPHIL # 2.7 TH/MM3 (1.8-7.7); BASOPHIL % 0.3 % (0.0-2.0); HEMATOCRIT 25.8 % (35.0-46.0); LYMPH % 8.5 % (9.0-44.0); LYMPHOCYTE # 0.3 TH/MM3 (1.0-4.8); MEAN CELL VOLUME 70.8 FL (80.0-100.0); MEAN CORPUSCULAR HEMOGLOBIN 22.6 PG (27.0-34.0); MEAN CORPUSCULAR HGB CONC 31.9 % (32.0-36.0); MONO % 2.7 % (0.0-8.0); NEUT % 88.5 % (16.0-70.0); PLATELET COUNT 323 TH/MM3 (150-450); RED BLOOD COUNT 3.64 MIL/MM3 (4.00-5.30); WHITE BLOOD COUNT 3.1 TH/MM3 (4.0-11.0)
[2016-07-10 08:07] LABS: HEMO FLAGS AUTO DIFF
[2016-07-10 08:11] LABS: TRANSFERRIN IRON PROFILE 321 MG/DL (200-360)
[2016-07-10 08:14] LABS: FERRITIN 13 NG/ML (8-252)
[2016-07-10 08:19] LABS: ALKALINE PHOSPHATASE 55 U/L (45-117); ALT (GPT) 19 U/L (10-53); ANION GAP 8 MEQ/L (5-15); AST (GOT) 19 U/L (15-37); BLOOD UREA NITROGEN 36 MG/DL (7-18); CHLORIDE 102 MEQ/L (98-107); GLOMERULAR FILTRATION RATE 36 ML/MIN (>89); POTASSIUM 4.3 MEQ/L (3.5-5.1); SODIUM (NA) 136 MEQ/L (136-145); TOTAL BILIRUBIN ADULT 0.5 MG/DL (0.2-1.0)
[2016-07-10] MEDS: DULoxetine HCl DR 60 MG CAP PO SCH (08:25)
[2016-07-10] MEDS: BUMETANIDE 1 MG TAB PO SCH ×2 (08:26→18:27)
[2016-07-10] MEDS: METOPROLOL TARTRATE 50 MG TAB PO SCH (08:26)
[2016-07-10] MEDS: PANTOPRAZOLE SOD 40 MG DELAYED RELEASE TAB PO SCH (08:26)
[2016-07-10] MEDS: ASPIRIN 81 MG CHEW TAB PO SCH (08:26)
[2016-07-10] MEDS: valACYclovir HCL 500 MG TAB PO SCH (08:26)
[2016-07-10] MEDS: SODIUM CHLORIDE 0.9% FLUSH 5 ML FLUSH FLUSH SCH ×2 (08:27→20:54)
--- NOTE | 2016-07-10 09:41 | HHI.PR ---
Subjective Remarks F/U PNA and CHF. No new complaints on 2.5 L NC dw RN Objective Vitals Vital Signs Date Time Temp Pulse Resp B/P Pulse Ox O2 Delivery O2 Flow Rate FiO2 07/10/16 07:16 97.4 69 17 186/79 95 07/10/16 04:00 98.6 80 22 174/105 97 07/10/16 02:21 96 Nasal Cannula 3.00 07/10/16 02:02 98.4 88 18 196/106 97 07/10/16 00:00 70 16 150/68 96 Nasal Cannula 3 07/09/16 21:57 98.2 66 16 160/72 96 Nasal Cannula 3 07/09/16 19:03 98.2 62 16 168/67 92 Nasal Cannula 2 07/09/16 19:02 20 07/09/16 19:01 86 Nasal Cannula 2 07/09/16 17:11 98.2 65 16 142/65 92 I/O 07/09/16 07/09/16 07/09/16 07/10/16 07/10/16 07/10/16 07:00 15:00 23:00 07:00 15:00 23:00 Intake Total 500 ml 480 ml Output Total 300 ml Balance 200 ml 480 ml Intake Oral 480 ml IV Total 500 ml Output Urine Total 300 ml # Voids 1 6 # Bowel Movements 5 Result Diagram: 07/10/16 0715 07/10/16 0715 Imaging Last Impressions Chest X-Ray 07/09/16 1734 Signed Impressions: Service Date/Time: Saturday, July 09, 2016 17:44 - CONCLUSION: 1. Small right pleural effusion. 2. Bibasilar patchiness consistent with atelectasis and/or infiltrate. Jason Sellers MD Lung Scan- Nuclear Medicine 07/09/16 0000 Signed Impressions: Service Date/Time: Saturday, July 09, 2016 23:19 - CONCLUSION: Intermediate probability study. Heterogeneous perfusion but reasonably matched to ventilation, not in a pattern typical of pulmonary embolus, and seen in the setting of bilateral pleural effusions and right greater than left airspace consolidation. Mnago Jones MD Chest CT 07/09/16 0000 Signed Impressions: Service Date/Time: Saturday, July 09, 2016 22:00 - CONCLUSION: 1. Dense consolidation in the right middle lobe most characteristic of pneumonia. Additional scattered subsegmental opacity in both lungs that may be infectious. 2. Moderate bilateral pleural effusions. 3. Cardiomegaly with severe coronary calcifications. Postop CABG. Coronary stents present. Frank Azul MD Objective Remarks GENERAL: This is a very pale, frail-appearing elderly female patient, in no apparent distress. SKIN: No rashes, ecchymoses or lesions. Cool and dry. HEAD: Atraumatic. Normocephalic. EYES: No scleral icterus. No injection or drainage. ENT: Nose without bleeding, purulent drainage. NECK: Trachea midline. No JVD or lymphadenopathy. CARDIOVASCULAR: Irregularly irregular rate and rhythm, 2/6 systolic heart murmur best auscultated over aortic area; +1 pitting bilateral lower extremity edema RESPIRATORY: Clear to auscultation. Decreased Breath sounds equal bilaterally. No wheezes, rales, or rhonchi. GASTROINTESTINAL: Abdomen tense, non-tender, nondistended. No guarding. Possibly liver enlarged. MUSCULOSKELETAL: Extremities without clubbing, cyanosis. No calf tenderness. NEUROLOGICAL: Awake and alert. Motor and sensory grossly within normal limits. Normal speech. A/P Problem List: (1) Pneumonia ICD Code: J18.9 Status: Acute (2) Pleural effusion, bilateral ICD Code: J90 Status: Acute (3) CHF (congestive heart failure) ICD Code: I50.9 Status: Acute (4) JULIANE (acute kidney injury) ICD Code: N17.9 Status: Acute Assessment and Plan Right middle lobe pneumonia - suspect HCAP w - Patient hospitalized 3 times since open heart surgery in February 2016, most recent hospitalization June 11, 2016 through June 18, 2016 - Patient allergic to penicillin and erythromycin - Levofloxacin 750 mg IV every 24 hours - Aztreonam 1 g IV every 8 hours -Negative Legionella and pneumococcal antigens - Check sputum culture and downgrade antibiotics if able according to clinical course - Duonebs q4h PRN sob/wheezing Pleural effusion - Consult pulmonology for thoracentesis Congestive heart failure - Bumex 1 mg by mouth twice a day - Trend troponin 1 to rule out ACS. Chronically elevated troponin. Patient denies chest pain. - Monitor I and O's - Heart healthy diet - Continuous cardiac telemetry Increased Troponin: -mostly due to CHF, acute kidney injury and pneumonia Acute kidney injury - BUN 34, creatinine 1.57, estimated GFR 32. Stable - Repeat BMP in a.m. and follow trends in renal indices - Avoid nephrotoxins when possible Anemia. No gross bleeding - Hemoglobin 8.4 and hematocrit 27.4; microcytic, hypochromic - Repeat CBC in a.m. and follow trends -Start iron. Outpatient colonoscopy DVT prophylaxis - Continue home Xarelto Discharge Planning Not stable for discharge Tj Bautista MD Jul 10, 2016 09:41
[2016-07-10 09:54] LABS: OVALOCYTES 1+ (NORMAL); SCAN/DIFF AUTO DIFF CONFIRMED
[2016-07-10] MEDS: FERROUS SULFATE 325 MG (65 MG ELEMENTAL IRON) TAB PO SCH ×2 (10:32→20:54)
[2016-07-10] MEDS: LACTOBACILLUS ACIDOPHILUS TAB PO SCH ×2 (12:55→18:27)
[2016-07-10] MEDS: AZTREONAM 2,000 MG/NS 100 ML IV SCH ×4 (16:54→23:50)
[2016-07-10 18:32] LABS: C. DIFF EPI 027 PRESUMPTIVE NEGATIVE (NEGATIVE); C. DIFF TOXIN PCR NEGATIVE (NEGATIVE)
[2016-07-10] MEDS: FENOFIBRATE 145 MG TAB PO SCH (20:53)
[2016-07-10] MEDS: ALPRAZolam 0.25 MG TAB PO PRN (20:53)
[2016-07-10] MEDS: ATORVASTATIN 10 MG TAB PO SCH (20:54)
[2016-07-10] MEDS: INSULIN DETEMIR 100 UNITS/ML VIAL SQ SCH (20:54)
[2016-07-10] MEDS: traZODone HCL 100 MG TAB PO SCH (20:54)
[2016-07-10] MEDS ORDERED: traZODone HCL 50 MG TAB PO SCH (21:00)
[2016-07-10] MEDS: RESP: ALBUTEROL 2.5 MG/IPRATROPIUM 0.5 MG NEB (SCH) INH (21:34)
[2016-07-11] VITALS (11 sets, daily range): BP systolic 129–181; BP diastolic 65–77; PULSE 58–81; RESP 18–24; TEMP 96.8–98.4; O2SAT 93–98
[2016-07-11] MEDS: DILTIAZEM HCL 90 MG TAB PO SCH ×4 (05:58→23:48)
[2016-07-11] MEDS: LEVOTHYROXINE SODIUM 150 MCG TAB PO SCH (05:58)
[2016-07-11] MEDS: INSULIN ASPART SUPPLEMENTAL SCALE SQ SCH ×4 (05:59→21:14)
[2016-07-11 07:40] LABS: AUTOMATED NEUTROPHIL # 5.3 TH/MM3 (1.8-7.7); BASOPHIL # 0.1 TH/MM3 (0-0.2); BASOPHIL % 0.7 % (0.0-2.0); EOSINOPHIL # 0.2 TH/MM3 (0-0.4); EOSINOPHIL % 2.6 % (0.0-4.0); HEMATOCRIT 25.7 % (35.0-46.0); LYMPH % 15.7 % (9.0-44.0); LYMPHOCYTE # 1.1 TH/MM3 (1.0-4.8); MEAN CELL VOLUME 71.5 FL (80.0-100.0); MEAN CORPUSCULAR HEMOGLOBIN 22.3 PG (27.0-34.0); MEAN CORPUSCULAR HGB CONC 31.2 % (32.0-36.0); MONO % 7.4 % (0.0-8.0); NEUT % 73.6 % (16.0-70.0); PLATELET COUNT 304 TH/MM3 (150-450); RED BLOOD COUNT 3.59 MIL/MM3 (4.00-5.30); RED CELL DISTRIBUTION WIDTH 19.8 % (11.6-17.2); WHITE BLOOD COUNT 7.3 TH/MM3 (4.0-11.0)
[2016-07-11 07:44] LABS: HEMO FLAGS AUTO DIFF
[2016-07-11 08:19] LABS: BICARBONATE 28.4 MEQ/L (21.0-32.0); MAGNESIUM 1.7 MG/DL (1.5-2.5); POTASSIUM 3.9 MEQ/L (3.5-5.1)
[2016-07-11] MEDS: RESP: ALBUTEROL 2.5 MG/IPRATROPIUM 0.5 MG NEB (SCH) INH ×3 (08:52→19:55)
[2016-07-11] MEDS: AZTREONAM 2,000 MG/NS 100 ML IV SCH ×6 (09:15→23:48)
[2016-07-11] MEDS: FERROUS SULFATE 325 MG (65 MG ELEMENTAL IRON) TAB PO SCH ×2 (09:16→21:13)
[2016-07-11] MEDS: BUMETANIDE 1 MG TAB PO SCH ×2 (09:16→16:49)
[2016-07-11] MEDS: LACTOBACILLUS ACIDOPHILUS TAB PO SCH ×3 (09:16→16:49)
[2016-07-11] MEDS: RIVAROXABAN 15 MG TAB PO SCH (09:16)
[2016-07-11] MEDS: METOPROLOL TARTRATE 50 MG TAB PO SCH (09:16)
[2016-07-11] MEDS: DULoxetine HCl DR 60 MG CAP PO SCH (09:16)
[2016-07-11] MEDS: valACYclovir HCL 500 MG TAB PO SCH (09:16)
[2016-07-11] MEDS: ASPIRIN 81 MG CHEW TAB PO SCH (09:17)
[2016-07-11] MEDS: SODIUM CHLORIDE 0.9% FLUSH 5 ML FLUSH FLUSH SCH ×2 (09:17→21:13)
[2016-07-11] MEDS: PANTOPRAZOLE SOD 40 MG DELAYED RELEASE TAB PO SCH (09:17)
[2016-07-11 09:28] LABS: OVALOCYTES 1+ (NORMAL); SCAN/DIFF AUTO DIFF CONFIRMED
[2016-07-11] MEDS ORDERED: DIPHENOXYLATE/ATROPINE 2.5 MG/0.025 MG TAB PO PRN (09:30)
--- NOTE | 2016-07-11 11:00 | HHI.PR ---
Subjective Remarks Follow-up pneumonia. States she is feeling better less shortness of breath ambulating hallway. Discussed with pulmonary, hold off with thoracentesis. Previous studies revealed transudate. Patient states she has chronic diarrhea status post extensive workup including colonoscopy Objective Vitals Vital Signs Date Time Temp Pulse Resp B/P Pulse Ox O2 Delivery O2 Flow Rate FiO2 07/11/16 09:34 81 07/11/16 09:32 94 Nasal Cannula 4.00 07/11/16 08:43 98 Nasal Cannula 4.00 07/11/16 08:00 98.3 78 24 160/69 94 07/11/16 04:00 98.4 58 20 129/72 96 07/11/16 03:13 60 07/10/16 21:36 92 Nasal Cannula 4.00 07/10/16 20:00 55 07/10/16 19:55 97.7 55 20 179/79 96 07/10/16 16:25 96.1 48 24 138/60 94 07/10/16 12:00 97.4 55 17 146/89 94 I/O 07/10/16 07/10/16 07/10/16 07/11/16 07/11/16 07/11/16 07:00 15:00 23:00 07:00 15:00 23:00 Intake Total 480 ml 960 ml 600 ml 240 ml Balance 480 ml 960 ml 600 ml 240 ml Intake Oral 480 ml 960 ml 600 ml 240 ml # Voids 6 10 5 4 # Bowel Movements 5 10 5 1 Result Diagram: 07/11/16 0657 07/11/16 0657 Imaging Last Impressions Chest X-Ray 07/09/16 1734 Signed Impressions: Service Date/Time: Saturday, July 09, 2016 17:44 - CONCLUSION: 1. Small right pleural effusion. 2. Bibasilar patchiness consistent with atelectasis and/or infiltrate. Jason Sellers MD Lung Scan- Nuclear Medicine 07/09/16 0000 Signed Impressions: Service Date/Time: Saturday, July 09, 2016 23:19 - CONCLUSION: Intermediate probability study. Heterogeneous perfusion but reasonably matched to ventilation, not in a pattern typical of pulmonary embolus, and seen in the setting of bilateral pleural effusions and right greater than left airspace consolidation. Mango Jones MD Chest CT 07/09/16 0000 Signed Impressions: Service Date/Time: Saturday, July 09, 2016 22:00 - CONCLUSION: 1. Dense consolidation in the right middle lobe most characteristic of pneumonia. Additional scattered subsegmental opacity in both lungs that may be infectious. 2. Moderate bilateral pleural effusions. 3. Cardiomegaly with severe coronary calcifications. Postop CABG. Coronary stents present. Frank Azul MD Objective Remarks GENERAL: This is a very pale, frail-appearing elderly female patient, in no apparent distress. SKIN: No rashes, ecchymoses or lesions. Cool and dry. HEAD: Atraumatic. Normocephalic. EYES: No scleral icterus. No injection or drainage. ENT: Nose without bleeding, purulent drainage. NECK: Trachea midline. No JVD or lymphadenopathy. CARDIOVASCULAR: Irregularly irregular rate and rhythm, 2/6 systolic heart murmur best auscultated over aortic area; +1 pitting bilateral lower extremity edema RESPIRATORY: Clear to auscultation. Decreased Breath sounds equal bilaterally. No wheezes, rales, or rhonchi. GASTROINTESTINAL: Abdomen tense, non-tender, nondistended. No guarding. Possibly liver enlarged. MUSCULOSKELETAL: Extremities without clubbing, cyanosis. No calf tenderness. NEUROLOGICAL: Awake and alert. Motor and sensory grossly within normal limits. Normal speech. A/P Problem List: (1) Pneumonia ICD Code: J18.9 Status: Acute (2) Pleural effusion, bilateral ICD Code: J90 Status: Acute (3) CHF (congestive heart failure) ICD Code: I50.9 Status: Acute (4) JULIANE (acute kidney injury) ICD Code: N17.9 Status: Acute Assessment and Plan Right middle lobe pneumonia - suspect HCAP w - Patient hospitalized 3 times since open heart surgery in February 2016, most recent hospitalization June 11, 2016 through June 18, 2016 - Patient allergic to penicillin and erythromycin - Levofloxacin 750 mg IV every 24 hours - Aztreonam 1 g IV every 8 hours - Negative Legionella and pneumococcal antigens - Check sputum culture and downgrade antibiotics if able according to clinical course - Duonebs q4h PRN sob/wheezing Pleural effusion -Discussed with pulmonology to hold off with thoracentesis Congestive heart failure - Bumex 1 mg by mouth twice a day - Trend troponin 1 to rule out ACS. Chronically elevated troponin. Patient denies chest pain. - Monitor I and O's - Heart healthy diet - Continuous cardiac telemetry Increased Troponin: -mostly due to CHF, acute kidney injury and pneumonia Acute kidney injury - BUN 34, creatinine 1.57, estimated GFR 32. Slightly worse today secondary to ongoing diarrhea. Gentle IV hydration for 1 L. - Repeat BMP in a.m. and follow trends in renal indices - Avoid nephrotoxins when possible Anemia. No gross bleeding - Hemoglobin 8.4 and hematocrit 27.4; microcytic, hypochromic. Stable - Repeat CBC in a.m. and follow trends -Continue iron. Outpatient colonoscopy Chronic diarrhea status post extensive workup -Continue Lactinex and add Lomotil -DVT prophylaxis - Continue home Xarelto Discharge Planning Discharge in 1-2 days Tj Bautista MD Jul 11, 2016 11:00
[2016-07-11] MEDS ORDERED: FERR325T PO (11:06)
[2016-07-11] MEDS ORDERED: LACT PO (11:06)
--- NOTE | 2016-07-11 11:07 | HHI.DCPOC ---
Discharge Care Plan Diagnosis: (1) Pneumonia (2) JULIANE (acute kidney injury) Your Health Problems Are: Difficulty with ADL Exercise Tolerance Goals to Promote Your Health * To prevent worsening of your condition and complications * To maintain your health at the optimal level Directions to Meet Your Goals Take your medications as prescribed Follow your dietary instruction Follow activity as directed Keep your appointments as scheduled Take your immunizations and boosters as scheduled If your symptoms worsen call your PCP, if no PCP go to Urgent Care Center or Emergency Room Smoking is Dangerous to Your Health. Avoid second hand smoke Call the 24-hour hour crisis hotline for domestic abuse at Tj Bautista MD Jul 11, 2016 11:07
[2016-07-11] MEDS: SODIUM CHLOR 0.9% 1000 ML INJ 1,000 ML IV SCH (11:36)
--- NOTE | 2016-07-11 13:54 | EKG ---
Date Performed: 07/09/2016 Time Performed: 19:26:49 PTAGE: 75 years EKG: ATRIAL FIBRILLATION MARKED RIGHT AXIS DEVIATION LOW QRS VOLTAGE IN PRECORDIAL LEADS SEPTAL MYOCARDIAL INFARCTION Compared to previous tracing, ventricular response to atrial fibrillation is sl ightly faster Diffuse ST changes are likely due to digoxin effect, but consider ischemia ABNORMAL ECG NO PREVIOUS TRACING DOCTOR: Yosef Jon Interpretating Date/Time 07/11/2016 13:52:27
[2016-07-11] MEDS: predniSONE 20 MG TAB PO SCH (14:37)
[2016-07-11] MEDS: FENOFIBRATE 145 MG TAB PO SCH (21:13)
[2016-07-11] MEDS: traZODone HCL 100 MG TAB PO SCH (21:13)
[2016-07-11] MEDS: ALPRAZolam 0.25 MG TAB PO PRN (21:13)
[2016-07-11] MEDS: ATORVASTATIN 10 MG TAB PO SCH (21:13)
[2016-07-11] MEDS: INSULIN DETEMIR 100 UNITS/ML VIAL SQ SCH (21:14)
[2016-07-11] MEDS: LEVOFLOXACIN 750 MG/DEXTROSE 150 ML IV SCH (23:48)
[2016-07-12] VITALS (8 sets, daily range): BP systolic 106–152; BP diastolic 49–75; PULSE 53–68; RESP 16–22; TEMP 96.4–97.8; O2SAT 93–98
[2016-07-12] MEDS: LEVOTHYROXINE SODIUM 150 MCG TAB PO SCH (06:16)
[2016-07-12] MEDS: DILTIAZEM HCL 90 MG TAB PO SCH ×2 (06:17→11:51)
[2016-07-12] MEDS: INSULIN ASPART SUPPLEMENTAL SCALE SQ SCH ×4 (06:17→21:27)
[2016-07-12 07:32] LABS: BICARBONATE 29.2 MEQ/L (21.0-32.0); MAGNESIUM 1.7 MG/DL (1.5-2.5); POTASSIUM 3.5 MEQ/L (3.5-5.1)
[2016-07-12] MEDS: LACTOBACILLUS ACIDOPHILUS TAB PO SCH ×2 (08:01→11:51)
[2016-07-12] MEDS: FERROUS SULFATE 325 MG (65 MG ELEMENTAL IRON) TAB PO SCH ×2 (08:01→21:26)
[2016-07-12] MEDS: BUMETANIDE 1 MG TAB PO SCH (08:01)
[2016-07-12] MEDS: RIVAROXABAN 15 MG TAB PO SCH ×2 (08:02→08:06)
[2016-07-12] MEDS: valACYclovir HCL 500 MG TAB PO SCH (08:02)
[2016-07-12] MEDS: ASPIRIN 81 MG CHEW TAB PO SCH ×2 (08:02→08:07)
[2016-07-12] MEDS: PANTOPRAZOLE SOD 40 MG DELAYED RELEASE TAB PO SCH (08:02)
[2016-07-12] MEDS: DULoxetine HCl DR 60 MG CAP PO SCH (08:02)
[2016-07-12] MEDS: predniSONE 20 MG TAB PO SCH (08:02)
[2016-07-12] MEDS: RESP: ALBUTEROL 2.5 MG/IPRATROPIUM 0.5 MG NEB (SCH) INH ×3 (08:31→22:00)
[2016-07-12] MEDS: SODIUM CHLORIDE 0.9% FLUSH 5 ML FLUSH FLUSH SCH ×2 (09:00→21:29)
[2016-07-12] MEDS: SODIUM CHLOR 0.9% 1000 ML INJ 1,000 ML IV SCH (09:49)
[2016-07-12] MEDS: METOPROLOL TARTRATE 50 MG TAB PO SCH (11:51)
--- NOTE | 2016-07-12 12:18 | MB ---
cc: Harsh PÉREZ M.D. DATE OF CONSULTATION: 07/10/2016 HISTORY OF PRESENT ILLNESS Ms. Garcia is a 75-year-old white female who has been hospitalized five times since her surgery in February with a bypass. That was complicated by a wound infection that has subsequently cleared after weeks of antibiotics, and she was admitted here June 11 with increasing shortness of breath and had bilateral pleural effusions. Those were drained, they were transudative and cultures were negative. She has been out of the hospital now about three or four weeks and she came in yesterday with increasing shortness of breath again. Chest CT and ventilation perfusion scan were done although she does take Xarelto routinely for atrial fib and the ventilation perfusion scan was not clearly definitive in light of the underlying effusions and infiltrates but was felt to be low probability, and a chest CT scan revealed a dense right midlung infiltrate along with a small effusion. She was started on antibiotics for probable healthcare related pneumonia. She is awake, alert, comfortable. She is experiencing no shortness of breath at the present time, she has had minimal cough, no purulent sputum or hemoptysis. She is afebrile. White count on presentation 6800, white count today 3.1. Blood cultures have been negative. Influenza A and B were negative. Legionella and streptococcal antigens in the urine were negative as well. The patient does have a history of pneumonia. She estimates she has probably had pneumonia 15 or 20 times in her life the first time was back in the 1960s. She was a very heavy smoker of two to three packs per day for many years although she quit smoking about 30 years ago. Never been formally diagnosed with COPD and is not on treatment for that. PAST MEDICAL HISTORY 1. Diabetes. 2. Coronary disease. 3. Recent bypass with wound infection. 4. Degenerative arthritis. 5. Hyperlipidemia. 6. Chronic atrial fibrillation. 7. Reflux disease. 8. Prior gastric bypass for obesity. 9. Back surgery for lumbosacral disc disease. 10 Bilateral cataracts removed. ALLERGIES ERYTHROMYCIN, LASIX AND PENICILLIN. SOCIAL HISTORY No longer smoking. Denies any alcohol use. REVIEW OF SYSTEMS Other than that noted above, no hemoptysis or chest pain. She has had increasing edema in her legs. No nausea, vomiting, abdominal pain or recent change in bowel habits, no diarrhea. No unusual animal exposures. PHYSICAL EXAMINATION GENERAL: The patient is awake, alert, comfortable. VITAL SIGNS: Afebrile, blood pressure 170/100, respiration 18, pulse is 70 irregular, on 3 liters her sat is 96%. HEENT: Sclerae anicteric. NECK: Neck veins are not distended. No adenopathy in the neck or supraclavicular region. RESPIRATORY: Some congestion with rales in the right lung, no wheezes. CARDIOVASCULAR: Irregular rhythm. Soft systolic murmur. No audible S3. EXTREMITIES: 1+ pretibial edema both legs. No calf tenderness. No cyanosis. DISCUSSION Ms. Garcia presents with a dense right midlung infiltrate probably a healthcare associated pneumonia. She is on Levaquin and Azactam. Cultures have been negative and she is clinically stable. I will place her on an incentive, continued nebulized aerosols routinely three times a day and p.r.n., and at this point because she has had recent thoracenteses with transudative effusions and negative cultures I do not think it is necessary to proceed with another thoracentesis unless she is not responding or the fluid is increasing. Further diagnostic and/or therapeutic intervention will depend on her ongoing clinical course and response to therapy. R. MD JOYCE Kathleen/CYRUS /12:19 PM /12:16 PM
--- NOTE | 2016-07-12 12:21 | HHI.FF ---
Face to Face Verification Diagnosis: (1) S/P CABG x 3 (2) PNA (pneumonia) (3) Pleural effusion Home Health Nursing Order: Medical education Signs/symptoms of disease process Oxygen administration education Medication education-adverse effect Nursing assessment with vital signs Home Health Aide Order: To Assist In: Bathing and personal care, senior research executive and meal prep I have seen patient Lorenza Garcia on 07/12/16. My clinical findings support the need for the requested home health care services because: Ltd mobility - disease progression Patient has SOB Deconditioned w/ increased weakness Limited ability to care for self Need for psychosocial assistance Impaired cognition/judgement High risk of falls Infection w/ risk of complications I certify that my clinical findings support that this patient is homebound because: Post-op weakness Impaired cognitive ability/safety Unsteady gait/balance Unsafe to leave home unassisted Need for psychosocial assistance Unable to use public transportation Chris Perez DO Jul 12, 2016 12:21 pm
--- NOTE | 2016-07-12 13:57 | HHI.PR ---
Subjective Remarks Follow-up for probable healthcare associated pneumonia. Patient is currently doing well. Denies any chest pain, shortness of breath, fever or chills. She is currently on 3 L of oxygen and sitting in her chair. Objective Vitals Vital Signs Date Time Temp Pulse Resp B/P Pulse Ox O2 Delivery O2 Flow Rate FiO2 07/12/16 12:04 96.5 67 16 152/69 98 07/12/16 08:31 93 Nasal Cannula 3.00 07/12/16 08:01 96.4 53 16 145/71 97 07/12/16 07:20 95 Nasal Cannula 3.00 07/12/16 04:35 97.8 64 21 142/65 96 07/12/16 00:35 97.1 58 22 106/49 94 07/11/16 21:30 64 07/11/16 21:05 169/71 07/11/16 20:00 94 Nasal Cannula 3.00 07/11/16 20:00 96.9 73 18 181/77 94 07/11/16 19:55 Nasal Cannula 3.00 07/11/16 16:00 97.8 58 20 142/65 94 I/O 07/11/16 07/11/16 07/11/16 07/12/16 07/12/16 07/12/16 07:00 15:00 23:00 07:00 15:00 23:00 Intake Total 240 ml 1042 ml 480 ml 1041 ml Balance 240 ml 1042 ml 480 ml 1041 ml Intake Oral 240 ml 960 ml 480 ml 480 ml IV Total 82 ml 561 ml # Voids 4 7 2 3 # Bowel Movements 1 4 0 0 Result Diagram: 07/11/16 0657 07/12/16 0552 Imaging Last Impressions Chest X-Ray 07/09/16 1734 Signed Impressions: Service Date/Time: Saturday, July 09, 2016 17:44 - CONCLUSION: 1. Small right pleural effusion. 2. Bibasilar patchiness consistent with atelectasis and/or infiltrate. Jason Sellers MD Lung Scan- Nuclear Medicine 07/09/16 0000 Signed Impressions: Service Date/Time: Saturday, July 09, 2016 23:19 - CONCLUSION: Intermediate probability study. Heterogeneous perfusion but reasonably matched to ventilation, not in a pattern typical of pulmonary embolus, and seen in the setting of bilateral pleural effusions and right greater than left airspace consolidation. Mango Jones MD Chest CT 07/09/16 0000 Signed Impressions: Service Date/Time: Tuesday, July 09, 2016 22:00 - CONCLUSION: 1. Dense consolidation in the right middle lobe most characteristic of pneumonia. Additional scattered subsegmental opacity in both lungs that may be infectious. 2. Moderate bilateral pleural effusions. 3. Cardiomegaly with severe coronary calcifications. Postop CABG. Coronary stents present. Frank Azul MD Objective Remarks GENERAL: Alert, oriented 3, NAD. SKIN: Warm and dry. HEAD: Normocephalic. EYES: No scleral icterus. No injection or drainage. NECK: Supple, trachea midline. No JVD or lymphadenopathy. CARDIOVASCULAR: Regular rate and rhythm without murmurs, gallops, or rubs. RESPIRATORY: Moderate air entry. Right-sided Rales present. No accessory muscle use. GASTROINTESTINAL: Abdomen soft, non-tender, nondistended. MUSCULOSKELETAL: No cyanosis, or edema. BACK: Nontender without obvious deformity. No CVA tenderness. Procedures None A/P Problem List: (1) Pneumonia ICD Code: J18.9 Status: Acute (2) Pleural effusion, bilateral ICD Code: J90 Status: Acute (3) CHF (congestive heart failure) ICD Code: I50.9 Status: Acute (4) JULIANE (acute kidney injury) ICD Code: N17.9 Status: Acute Assessment and Plan Ms. Garcia is a pleasant 75-year-old female with a history of hypothyroidism, CAD status post stent placement in 2007 and CABG 3 in February 2016, atrial fibrillation on Xarelto, COPD who presented to the emergency department on 07/09/2016 with dyspnea that started 3 days prior to this admission. Patient is currently being treated for healthcare associated pneumonia. Right middle lobe pneumonia Probable healthcare associated pneumonia Pleural effusion - Patient hospitalized 3 times since open heart surgery in February 2016, most recent hospitalization June 11, 2016 through June 18, 2016 - Patient allergic to penicillin and erythromycin - Levofloxacin 750 mg IV every 24 hours, Aztreonam 1 g IV every 8 hours - Negative Legionella and pneumococcal antigens - Check sputum culture and downgrade antibiotics if able according to clinical course - Duonebs q4h PRN sob/wheezing - Pulmonology is following (Dr. Debbie Lind). - Discussed with pulmonology to hold off with thoracentesis. No thoracentesis planned at this point. CAD s/p stent and a recent CABG. Congestive heart failure Atrial fibrillation - Bumex 1 mg by mouth twice a day - Continue aspirin 81 mg Qday, atorvastatin 10 mg daily, diltiazem 90 mg every 6 hours, fenofibrate 140 mg daily, metoprolol 50 mg daily - Continue Xarelto 50 mg by mouth daily Acute kidney injury - BUN 34, creatinine 1.57, estimated GFR 32. Creatinine 1.43 on 07/12/2016. - Avoid nephrotoxins when possible - Diabetes mellitus -increase Levemir from 17 units to 20 units units daily at bedtime, sliding scale insulin. Anemia. No gross bleeding - Hemoglobin 8.4 and hematocrit 27.4; microcytic, hypochromic. Stable - Repeat CBC in a.m. and follow trends - Continue iron. Outpatient colonoscopy - Get hemoccult x 3. Chronic diarrhea status post extensive workup - Continue Lactinex and add Lomotil - Anxiety - continue Xanax 0.25 mg by mouth every 8 hours when necessary Hypothyroidism - continue levothyroxine 150 g by mouth daily. Full code. Xarelto. Chris Perez DO Jul 12, 2016 13:57
[2016-07-12] MEDS: AZTREONAM 2,000 MG/NS 100 ML IV SCH ×2 (16:19)
[2016-07-12] MEDS: ATORVASTATIN 10 MG TAB PO SCH (21:26)
[2016-07-12] MEDS: traZODone HCL 100 MG TAB PO SCH (21:26)
[2016-07-12] MEDS: FENOFIBRATE 145 MG TAB PO SCH (21:26)
[2016-07-12] MEDS: ALPRAZolam 0.25 MG TAB PO PRN (21:26)
[2016-07-12] MEDS: INSULIN DETEMIR 100 UNITS/ML VIAL SQ SCH (21:26)
[2016-07-13] VITALS (8 sets, daily range): BP systolic 120–149; BP diastolic 53–67; PULSE 50–68; RESP 16–20; TEMP 97.2–98.8; O2SAT 95–98
[2016-07-13] MEDS: DILTIAZEM HCL 90 MG TAB PO SCH ×5 (00:24→23:33)
[2016-07-13] MEDS: AZTREONAM 2,000 MG/NS 100 ML IV SCH ×8 (00:24→23:33)
[2016-07-13] MEDS: LEVOTHYROXINE SODIUM 150 MCG TAB PO SCH (05:23)
[2016-07-13] MEDS: INSULIN ASPART SUPPLEMENTAL SCALE SQ SCH ×4 (05:59→22:01)
--- NOTE | 2016-07-13 09:36 | RADRPT ---
EXAM DATE/TIME: 07/13/2016 08:18 [facility] COMPARISON: CHEST SINGLE AP, July 09, 2016, 17:44. CT THORAX W/O CONTRAST, July 09, 2016, 22:00. CHEST PA & LAT, June 15, 2016, 11:31. INDICATIONS : Shortness of breath. MEDICAL HISTORY : Cardiovascular disease. Myocardial infarction. Diabetes mellitus type 2. Coronary artery disease. Con gestive heart failure. SURGICAL HISTORY : CABG. Stents. ENCOUNTER: Subsequent ACUITY: 4 - 6 days PAIN SCORE: 0/10 LOCATION: Bilateral chest FINDINGS: PA and lateral views of the chest were obtained and again demonstrate that the patient is status post median sternotomy. Bilateral pleural effusions are again noted right greater than left with apparent mild improvement on the left. The heart size remains enlarged. Streaky perihilar and bibasilar opaci ties remain. CONCLUSION: 1. Mild improvement in small left pleural effusion. 2. Moderate right pleural effusion without significant change. 3. Artery megaly with bilateral infiltrates again noted. Nadir Hansen MD on July 13, 2016 at 9:33 Board Certified Radiologist. This report was verified electronically.
[2016-07-13] MEDS: SODIUM CHLOR 0.9% 1000 ML INJ 1,000 ML IV SCH (09:38)
[2016-07-13] MEDS: PANTOPRAZOLE SOD 40 MG DELAYED RELEASE TAB PO SCH (09:53)
[2016-07-13] MEDS: valACYclovir HCL 500 MG TAB PO SCH (09:53)
[2016-07-13] MEDS: FERROUS SULFATE 325 MG (65 MG ELEMENTAL IRON) TAB PO SCH ×2 (09:53→22:00)
[2016-07-13] MEDS: DULoxetine HCl DR 60 MG CAP PO SCH (09:54)
[2016-07-13] MEDS: METOPROLOL TARTRATE 50 MG TAB PO SCH (09:54)
[2016-07-13] MEDS: predniSONE 20 MG TAB PO SCH (09:54)
[2016-07-13] MEDS: LACTOBACILLUS ACIDOPHILUS TAB PO SCH ×3 (09:54→18:04)
[2016-07-13] MEDS: BUMETANIDE 1 MG TAB PO SCH ×2 (09:54→18:04)
[2016-07-13] MEDS: ASPIRIN 81 MG CHEW TAB PO SCH (09:54)
[2016-07-13] MEDS: SODIUM CHLORIDE 0.9% FLUSH 5 ML FLUSH FLUSH SCH ×2 (09:55→22:00)
[2016-07-13] MEDS: DOCUSATE SODIUM 100 MG CAP PO SCH ×2 (11:30→22:00)
[2016-07-13] MEDS ORDERED: MAGNESIUM HYDROXIDE SUSP 30 ML CUP PO PRN (11:30)
--- NOTE | 2016-07-13 17:15 | HHI.PR ---
Subjective Remarks Follow-up for probable healthcare associated pneumonia, pleural effusion. Patient is currently doing well. Denies any chest pain, shortness of breath, fever or chills. She is scheduled for thoracentesis probably tomorrow. Objective Vitals Vital Signs Date Time Temp Pulse Resp B/P Pulse Ox O2 Delivery O2 Flow Rate FiO2 07/13/16 16:44 97.2 58 20 128/63 96 07/13/16 12:00 98.3 60 20 149/67 96 07/13/16 07:54 97.4 53 20 127/60 97 07/13/16 07:42 98 Nasal Cannula 3.00 07/13/16 04:40 97.5 64 18 124/58 96 07/13/16 00:28 98.8 68 16 147/58 96 07/12/16 22:02 98 Nasal Cannula 3.00 07/12/16 20:35 97.6 68 18 147/75 97 I/O 07/12/16 07/12/16 07/12/16 07/13/16 07/13/16 07/13/16 07:00 15:00 23:00 07:00 15:00 23:00 Intake Total 1041 ml 1080 ml 480 ml 481 ml 720 ml Balance 1041 ml 1080 ml 480 ml 481 ml 720 ml Intake Oral 480 ml 1080 ml 480 ml 481 ml 720 ml IV Total 561 ml # Voids 3 6 2 2 3 # Bowel Movements 0 1 0 0 1 Result Diagram: 07/11/16 0657 07/12/16 0552 Imaging Last Impressions Chest X-Ray 07/13/16 0800 Signed Impressions: Service Date/Time: Wednesday, July 13, 2016 08:18 - CONCLUSION: 1. Mild improvement in small left pleural effusion. 2. Moderate right pleural effusion without significant change. 3. Artery megaly with bilateral infiltrates again noted. Nadir Hansen MD Lung Scan-V Nuclear Medicine 07/09/16 0000 Signed Impressions: Service Date/Time: Saturday, July 09, 2016 23:19 - CONCLUSION: Intermediate probability study. Heterogeneous perfusion but reasonably matched to ventilation, not in a pattern typical of pulmonary embolus, and seen in the setting of bilateral pleural effusions and right greater than left airspace consolidation. Mango Jones MD Chest CT 07/09/16 0000 Signed Impressions: Service Date/Time: Saturday, July 09, 2016 22:00 - CONCLUSION: 1. Dense consolidation in the right middle lobe most characteristic of pneumonia. Additional scattered subsegmental opacity in both lungs that may be infectious. 2. Moderate bilateral pleural effusions. 3. Cardiomegaly with severe coronary calcifications. Postop CABG. Coronary stents present. Frank Azul MD Objective Remarks GENERAL: Alert, oriented 3, NAD. SKIN: Warm and dry. HEAD: Normocephalic. EYES: No scleral icterus. No injection or drainage. NECK: Supple, trachea midline. No JVD or lymphadenopathy. CARDIOVASCULAR: Regular rate and rhythm without murmurs, gallops, or rubs. RESPIRATORY: Moderate air entry. Right-sided Rales present. No accessory muscle use. GASTROINTESTINAL: Abdomen soft, non-tender, nondistended. MUSCULOSKELETAL: No cyanosis, or edema. BACK: Nontender without obvious deformity. No CVA tenderness. Procedures None A/P Problem List: (1) Pneumonia ICD Code: J18.9 Status: Acute (2) Pleural effusion, bilateral ICD Code: J90 Status: Acute (3) CHF (congestive heart failure) ICD Code: I50.9 Status: Acute (4) JULIANE (acute kidney injury) ICD Code: N17.9 Status: Acute Assessment and Plan Ms. Garcia is a pleasant 75-year-old female with a history of hypothyroidism, CAD status post stent placement in 2007 and CABG 3 in February 2016, atrial fibrillation on Xarelto, COPD who presented to the emergency department on 07/09/2016 with dyspnea that started 3 days prior to this admission. Patient is currently being treated for healthcare associated pneumonia. Right middle lobe pneumonia Probable healthcare associated pneumonia Pleural effusion - Patient hospitalized 3 times since open heart surgery in February 2016, most recent hospitalization June 11, 2016 through June 18, 2016 - Patient allergic to penicillin and erythromycin - Levofloxacin 750 mg IV every 24 hours, Aztreonam 1 g IV every 8 hours - Negative Legionella and pneumococcal antigens - Check sputum culture and downgrade antibiotics if able according to clinical course - Duonebs q4h PRN sob/wheezing - Pulmonology is following (Dr. Debbie Lind). - Thoracentesis tomorrow. Xarelto on hold. CAD s/p stent and a recent CABG. Congestive heart failure Atrial fibrillation - Bumex 1 mg by mouth twice a day - Continue aspirin 81 mg Qday, atorvastatin 10 mg daily, diltiazem 90 mg every 6 hours, fenofibrate 140 mg daily, metoprolol 50 mg daily - On Xarelto - currently on hold. Acute kidney injury - BUN 34, creatinine 1.57, estimated GFR 32. Creatinine 1.43 on 07/12/2016. - Avoid nephrotoxins when possible - Diabetes mellitus - increase Levemir from 17 units to 20 units units daily at bedtime, sliding scale insulin. - AM glucose is controlled. We'll add aspart 3 units 3 times a day before meals Anemia. No gross bleeding - Hemoglobin 8.4 and hematocrit 27.4; microcytic, hypochromic. Stable - Continue iron. Outpatient colonoscopy - Hemoccult negative. Chronic diarrhea status post extensive workup - Continue Lactinex and add Lomotil - Anxiety - continue Xanax 0.25 mg by mouth every 8 hours when necessary Hypothyroidism - continue levothyroxine 150 g by mouth daily. Full code. Xarelto - currently on hold Chris Perez DO Jul 13, 2016 5:15 pm
[2016-07-13] MEDS: RESP: ALBUTEROL 2.5 MG/IPRATROPIUM 0.5 MG NEB (SCH) INH (20:04)
[2016-07-13] MEDS: ATORVASTATIN 10 MG TAB PO SCH (22:00)
[2016-07-13] MEDS: FENOFIBRATE 145 MG TAB PO SCH (22:00)
[2016-07-13] MEDS: INSULIN DETEMIR 100 UNITS/ML VIAL SQ SCH (22:01)
[2016-07-13] MEDS: ALPRAZolam 0.25 MG TAB PO PRN (22:01)
[2016-07-13] MEDS: traZODone HCL 100 MG TAB PO SCH (22:01)
[2016-07-13] MEDS: LEVOFLOXACIN 750 MG/DEXTROSE 150 ML IV SCH (23:33)
[2016-07-14] VITALS (10 sets, daily range): BP systolic 125–141; BP diastolic 58–72; PULSE 52–83; RESP 16–20; TEMP 97–98.1; O2SAT 94–100
[2016-07-14] MEDS: INSULIN ASPART SUPPLEMENTAL SCALE SQ SCH ×4 (05:50→21:00)
[2016-07-14] MEDS: LEVOTHYROXINE SODIUM 150 MCG TAB PO SCH (05:50)
[2016-07-14] MEDS: DILTIAZEM HCL 90 MG TAB PO SCH ×3 (05:50→18:28)
[2016-07-14] MEDS: INSULIN ASPART 1,000 UNITS/10 ML VIAL SQ SCH ×3 (08:00→17:00)
[2016-07-14] MEDS: RESP: ALBUTEROL 2.5 MG/IPRATROPIUM 0.5 MG NEB (SCH) INH (08:35)
--- NOTE | 2016-07-14 09:50 | RADRPT ---
EXAM DATE/TIME: 07/14/2016 09:41 [facility] COMPARISON: CT THORAX W/O CONTRAST, July 09, 2016, 22:00. CHEST EXPIRATION ONLY, June 17, 2016, 11:04. INDICATIONS: Post thoracentesis. MEDICAL HISTORY: Cardiovascular disease. Myocardial infarction. Diabetes mellitus type 2. Coronary artery disease. Con gestive heart failure. SURGICAL HISTORY: CABG. Cardiac stents. ENCOUNTER: Subsequent ACUITY: 2 days PAIN SCORE: 2/10 LOCATION: Bilateral chest FINDINGS: There is no pneumothorax following thoracentesis. Persistent consolidative changes are present in th e right lung. There is increasing consolidative changes anteriorly in the anterior segment of the rig ht lower lobe. CONCLUSION: There is no pneumothorax following thoracentesis. Remigio Alvarez MD FACR on July 14, 2016 at 9:44 Board Certified Radiologist. This report was verified electronically.
[2016-07-14] MEDS: DOCUSATE SODIUM 100 MG CAP PO SCH ×2 (10:48→21:05)
[2016-07-14] MEDS: BUMETANIDE 1 MG TAB PO SCH ×2 (10:48→18:28)
[2016-07-14] MEDS: METOPROLOL TARTRATE 50 MG TAB PO SCH (10:48)
[2016-07-14] MEDS: DULoxetine HCl DR 60 MG CAP PO SCH (10:48)
[2016-07-14] MEDS: FERROUS SULFATE 325 MG (65 MG ELEMENTAL IRON) TAB PO SCH ×2 (10:48→21:05)
[2016-07-14] MEDS: PANTOPRAZOLE SOD 40 MG DELAYED RELEASE TAB PO SCH (10:48)
[2016-07-14] MEDS: ASPIRIN 81 MG CHEW TAB PO SCH (10:48)
[2016-07-14] MEDS: LACTOBACILLUS ACIDOPHILUS TAB PO SCH ×3 (10:49→18:28)
[2016-07-14] MEDS: valACYclovir HCL 500 MG TAB PO SCH (10:49)
[2016-07-14] MEDS: SODIUM CHLORIDE 0.9% FLUSH 5 ML FLUSH FLUSH SCH ×2 (10:49→21:06)
[2016-07-14] MEDS: AZTREONAM 2,000 MG/NS 100 ML IV SCH ×4 (10:49→18:28)
[2016-07-14 11:15] LABS: TOTAL PROTEIN,PLEURAL FLUID 2.2 GM/DL
--- NOTE | 2016-07-14 11:38 | RADRPT ---
EXAM DATE/TIME: 07/14/2016 09:08 [facility] COMPARISON: EXTERNAL COMPARISON: US GUIDED THORACENTESIS RIGHT, June 16, 2016, 14:34. [facility], Chest xray, Feb 27 2016 . INDICATIONS : Right pleural effusion. MEDICAL HISTORY : Myocardial infarction. Chronic obstructive pulmonary disease. Gastroesophageal reflux disease. Hypoth yroid. A-Fib. Diabetic. SURGICAL HISTORY : Thoracentesis. CABG. Coronary stent. Back surgery. Gastric bypass. ENCOUNTER: Initial ACUITY: 1 week PAIN SCORE: 2/10 LOCATION: Right chest FLUID: Total volume of 600 cc of clear, yellow fluid was removed. Fluid was sent to lab for ordered studies. TECHNIQUE: 1. Ultrasound guidance for thoracentesis. 2. Thoracentesis. The risks, benefits, and alternatives to ultrasound guided thoracentesis were explained to the patien t in lay simple terms, including the risk of bleeding and infection. Written and verbal informed con sent was obtained. Appropriate area for thoracentesis was marked under ultrasound guidance with the patient in the uprig ht position. Overlying skin was prepped and draped in the usual sterile fashion and with local anest hetic, a dermatotomy was made with an 11 blade scalpel. A 6 Macedonian thoracentesis catheter was placed in the pleural space and fluid was removed. Catheter was then removed and a sterile dressing applie d. There were no immediate complications. The patient tolerated the procedure well and the left the ultrasound suite in stable condition. Chest radiograph is to be obtained. CONCLUSION: Uncomplicated ultrasound guided thoracentesis. Fluid was sent for ordered studies. Remigio Alvarez MD FACR on July 14, 2016 at 11:33 Board Certified Radiologist. This report was verified electronically.
[2016-07-14 11:59] LABS: PLEURAL FLUID LYMPHS 58 %
--- NOTE | 2016-07-14 13:28 | HHI.PR ---
Subjective Remarks Follow-up for pneumonia and pleural effusion. The patient states that she is tired, but feeling a little better. She had thoracentesis today, some pain with the procedure. Shortness of breath has improved some. Objective Vitals Vital Signs Date Time Temp Pulse Resp B/P Pulse Ox O2 Delivery O2 Flow Rate FiO2 07/14/16 12:00 97.3 59 20 125/58 97 07/14/16 09:52 97.9 73 16 134/68 96 07/14/16 09:38 97.0 70 16 141/72 100 07/14/16 09:27 97.0 69 16 136/72 96 07/14/16 08:35 97 Nasal Cannula 3.00 07/14/16 08:00 98.0 83 16 129/67 95 07/14/16 04:00 97.9 57 16 126/60 94 07/13/16 23:38 97.6 64 16 134/67 97 07/13/16 20:25 97.7 50 18 120/53 95 07/13/16 20:07 Nasal Cannula 3.00 07/13/16 16:44 97.2 58 20 128/63 96 I/O 07/13/16 07/13/16 07/13/16 07/14/16 07/14/16 07/14/16 07:00 15:00 23:00 07:00 15:00 23:00 Intake Total 481 ml 720 ml 240 ml 240 ml Balance 481 ml 720 ml 240 ml 240 ml Intake Oral 481 ml 720 ml 240 ml 240 ml # Voids 2 3 1 2 # Bowel Movements 0 1 0 0 Result Diagram: 07/11/16 0657 07/12/16 0552 Imaging Last Impressions Thoracentesis Ultrasound 07/14/16 0000 Signed Impressions: Service Date/Time: Thursday, July 14, 2016 09:08 - CONCLUSION: Uncomplicated ultrasound guided thoracentesis. Fluid was sent for ordered studies. Remigio Alvarez MD FACR Chest X-Ray 07/13/16 0800 Signed Impressions: Service Date/Time: Wednesday, July 13, 2016 08:18 - CONCLUSION: 1. Mild improvement in small left pleural effusion. 2. Moderate right pleural effusion without significant change. 3. Artery megaly with bilateral infiltrates again noted. Nadir Hansen MD Lung Scan-VQ Nuclear Medicine 07/09/16 Signed Impressions: Service Date/Time: Saturday, July 09, 2016 23:19 - CONCLUSION: Intermediate probability study. Heterogeneous perfusion but reasonably matched to ventilation, not in a pattern typical of pulmonary embolus, and seen in the setting of bilateral pleural effusions and right greater than left airspace consolidation. Mango Jones MD Chest CT 07/09/16 Signed Impressions: Service Date/Time: Saturday, July 09, 2016 22:00 - CONCLUSION: 1. Dense consolidation in the right middle lobe most characteristic of pneumonia. Additional scattered subsegmental opacity in both lungs that may be infectious. 2. Moderate bilateral pleural effusions. 3. Cardiomegaly with severe coronary calcifications. Postop CABG. Coronary stents present. Frank Azul MD Objective Remarks GENERAL: Well-developed well-nourished. In no acute distress. SKIN: Warm and dry. No lesions noted. HEENT: Normocephalic. Pupils equal and round. Mucous membranes pink and moist. CARDIOVASCULAR: Regular rate and rhythm. No murmur appreciated. RESPIRATORY: No accessory muscle use. Clear to auscultation. Breath sounds equal bilaterally. No wheezing. GASTROINTESTINAL: Abdomen soft, non-tender, nondistended. Bowel sounds x4. MUSCULOSKELETAL: No obvious deformities. No clubbing or cyanosis. No edema. NEUROLOGICAL: Awake and alert. No focal neurological deficits. Moves upper and lower extremities spontaneously. Normal speech. PSYCHIATRIC: Appropriate mood and affect; insight and judgment normal. Procedures None A/P Problem List: (1) Pneumonia ICD Code: J18.9 Status: Acute (2) Pleural effusion, bilateral ICD Code: J90 Status: Acute (3) CHF (congestive heart failure) ICD Code: I50.9 Status: Acute (4) JULIANE (acute kidney injury) ICD Code: N17.9 Status: Acute Assessment and Plan Ms. Garcia is a pleasant 75-year-old female with a history of hypothyroidism, CAD status post stent placement in 2007 and CABG 3 in February 2016, atrial fibrillation on Xarelto, COPD who presented to the emergency department on 07/09/2016 with dyspnea that started 3 days prior to this admission. Patient is currently being treated for healthcare associated pneumonia. Right middle lobe pneumonia Probable healthcare associated pneumonia Pleural effusion - Patient hospitalized 3 times since open heart surgery in February 2016, most recent hospitalization June 11, 2016 through June 18, 2016 - Patient allergic to penicillin and erythromycin - Levofloxacin 750 mg IV every 24 hours, Aztreonam 1 g IV every 8 hours - Negative Legionella and pneumococcal antigens - Duonebs q4h PRN sob/wheezing - Pulmonology is following (Dr. Debbie Lind). - S/P Thoracentesis, cultures pending. Xarelto on hold until cleared by IR. - Chest CT ordered CAD s/p stent and a recent CABG. Congestive heart failure Atrial fibrillation - Bumex 1 mg by mouth twice a day - Continue aspirin 81 mg Qday, atorvastatin 10 mg daily, diltiazem 90 mg every 6 hours, fenofibrate 140 mg daily, metoprolol 50 mg daily - On Xarelto - currently on hold. Mild Acute kidney injury on CKD - BUN 34, creatinine 1.57, estimated GFR 32. Creatinine 1.43 on 07/12/2016. - Avoid nephrotoxins when possible - Diabetes mellitus - not well controlled, labile - increased Levemir from 17 units to 20 units units daily at bedtime, sliding scale insulin. - AM glucose is controlled. Added aspart 3 units 3 times a day before meals - Continue to monitor and adjust regimen as needed Anemia. No gross bleeding - Hemoglobin 8; microcytic, hypochromic. Stable - Continue iron. Outpatient colonoscopy - Hemoccult negative. Chronic diarrhea status post extensive workup - Continue Lactinex and Lomotil Anxiety - continue Xanax 0.25 mg by mouth every 8 hours when necessary Hypothyroidism - continue levothyroxine 150 g by mouth daily. Full code. Xarelto - currently on hold Written by Irineo Tavares, acting as scribe for Dr. Perez on 07/14/16 at 13:27. The documentation accurately reflects the work performed [id number] by me on at 13:27. Irineo Tavares Jul 14, 2016 13:28 Chris Perez DO Jul 14, 2016 21:06
--- NOTE | 2016-07-14 14:30 | RADRPT ---
EXAM DATE/TIME: 07/14/2016 13:34 [place] COMPARISON: CHEST PA & LAT, July 13, 2016, 8:18. CHEST EXPIRATION ONLY, July 14, 2016, 9:41. CT THORAX W/O CONTRAST, July 09, 2016, 22:00. INDICATIONS : Right lower consolidation post thoracentesis.. pleural effusions and shortness of breath.. RADIATION DOSE: 5.10 CTDIvol (mGy) MEDICAL HISTORY : Cardiovascular disease. Hypertension. diabetes SURGICAL HISTORY : CABG ENCOUNTER: Initial ACUITY: 1 day PAIN SCALE: 0/10 LOCATION: chest TECHNIQUE: Volumetric scanning of the chest was performed. Using automated exposure control and adjustment of t he mA and/or kV according to patient size, radiation dose was kept as low as reasonably achievable to obtain optimal diagnostic quality images. FINDINGS: LUNGS: There is no pneumothorax. There is consolidation again noted in the right lung base with air bronchog carlos. This is increased mildly since the prior study. No concerning pulmonary nodule is visualized. PLEURAE: Bilateral small to moderate size pleural effusions are again noted right slightly greater than left. These are not significantly changed. MEDIASTINUM: The heart and great vessels demonstrate no acute abnormality. There is no mediastinal or hilar lymph adenopathy. Status post median sternotomy with postsurgical changes. The heart size remains moderatel y enlarged. Coronary artery calcifications are present. There is no pericardial effusion. AXILLAE: Within normal limits. No lymphadenopathy. MUSCULOSKELETAL: Within normal limits for patient age. MISCELLANEOUS: The visualized upper abdominal organs demonstrate no acute abnormality. CONCLUSION: 1. Consolidation in the right lung base which has increased mildly since the prior study 2. Bilateral pleural effusions remain right greater than left without significant change. Nadir Hansen MD on July 14, 2016 at 14:11 Board Certified Radiologist. This report was verified electronically.
[2016-07-14] MEDS: ATORVASTATIN 10 MG TAB PO SCH (21:05)
[2016-07-14] MEDS: FENOFIBRATE 145 MG TAB PO SCH (21:05)
[2016-07-14] MEDS: INSULIN DETEMIR 100 UNITS/ML VIAL SQ SCH (21:06)
[2016-07-14] MEDS: traZODone HCL 100 MG TAB PO SCH (22:51)
[2016-07-14] MEDS: ALPRAZolam 0.25 MG TAB PO PRN (22:51)
[2016-07-15] VITALS: BP 130/68; PULSE 65; RESP 16; TEMP 99; O2SAT 95
[2016-07-15] MEDS: DILTIAZEM HCL 90 MG TAB PO SCH ×5 (00:43→23:22)
[2016-07-15] MEDS: AZTREONAM 2,000 MG/NS 100 ML IV SCH ×2 (00:43)
[2016-07-15 04:00] VITALS: BP 151/85; PULSE 72; RESP 16; TEMP 98.1; O2SAT 96
[2016-07-15] MEDS: INSULIN ASPART SUPPLEMENTAL SCALE SQ SCH ×4 (06:31→21:38)
[2016-07-15] MEDS: LEVOTHYROXINE SODIUM 150 MCG TAB PO SCH (06:31)
[2016-07-15 08:00] VITALS: BP 142/65; PULSE 62; RESP 19; TEMP 96.6; O2SAT 97
[2016-07-15] MEDS: SODIUM CHLOR 0.9% 1000 ML INJ 1,000 ML IV SCH (09:16)
[2016-07-15] MEDS: LACTOBACILLUS ACIDOPHILUS TAB PO SCH ×3 (09:42→18:00)
[2016-07-15] MEDS: valACYclovir HCL 500 MG TAB PO SCH (09:43)
[2016-07-15] MEDS: DULoxetine HCl DR 60 MG CAP PO SCH (09:43)
[2016-07-15] MEDS: BUMETANIDE 1 MG TAB PO SCH ×2 (09:43→18:48)
[2016-07-15] MEDS: DOCUSATE SODIUM 100 MG CAP PO SCH ×2 (09:43→20:25)
[2016-07-15] MEDS: ASPIRIN 81 MG CHEW TAB PO SCH (09:43)
[2016-07-15] MEDS: METOPROLOL TARTRATE 50 MG TAB PO SCH (09:43)
[2016-07-15] MEDS: PANTOPRAZOLE SOD 40 MG DELAYED RELEASE TAB PO SCH (09:43)
[2016-07-15] MEDS: FERROUS SULFATE 325 MG (65 MG ELEMENTAL IRON) TAB PO SCH ×2 (09:43→20:25)
[2016-07-15] MEDS: INSULIN ASPART 1,000 UNITS/10 ML VIAL SQ SCH ×3 (09:47→17:00)
[2016-07-15] MEDS: SODIUM CHLORIDE 0.9% FLUSH 5 ML FLUSH FLUSH SCH ×2 (09:48→21:34)
[2016-07-15] MEDS: LEVOFLOXACIN 250 MG TAB PO SCH (12:27)
--- NOTE | 2016-07-15 14:45 | HHI.PR ---
Subjective Remarks Follow-up for pneumonia. The patient feels a little improved today. She has been able to walk quite a bit here, but does have to rest some when she gets short of breath. She has home oxygen. She is agreeable for [facility], not really interested in looking into SNF at this time. She feels like she could possibly go home tomorrow. Objective Vitals Vital Signs Date Time Temp Pulse Resp B/P Pulse Ox O2 Delivery O2 Flow Rate FiO2 07/15/16 08:00 96.6 62 19 142/65 97 07/15/16 06:33 Nasal Cannula 3.00 Humidified 07/15/16 04:00 98.1 72 16 151/85 96 07/15/16 00:00 99.0 65 16 130/68 95 07/14/16 22:12 99 Nasal Cannula 3.00 07/14/16 21:26 97.2 52 18 125/59 99 07/14/16 19:25 Nasal Cannula 3.00 Humidified 07/14/16 16:24 98.1 75 16 126/65 95 I/O 07/14/16 07/14/16 07/14/16 07/15/16 07/15/16 07/15/16 07:00 15:00 23:00 07:00 15:00 23:00 Intake Total 240 ml 720 ml 240 ml 433 ml Balance 240 ml 720 ml 240 ml 433 ml Intake Oral 240 ml 720 ml 240 ml 240 ml IV Total 193 ml # Voids 2 4 1 2 # Bowel Movements 0 0 0 0 Result Diagram: 07/11/16 0657 07/12/16 0552 Imaging Last Impressions Thoracentesis Ultrasound 07/14/16 0000 Signed Impressions: Service Date/Time: Thursday, July 14, 2016 09:08 - CONCLUSION: Uncomplicated ultrasound guided thoracentesis. Fluid was sent for ordered studies. Remigio Alvarez MD FACR Chest CT 07/14/16 0000 Signed Impressions: Service Date/Time: Thursday, July 14, 2016 13:34 - CONCLUSION: 1. Consolidation in the right lung base which has increased mildly since the prior study 2. Bilateral pleural effusions remain right greater than left without significant change. Nadir Hansen MD Chest X-Ray 07/13/16 0800 Signed Impressions: Service Date/Time: Wednesday, July 13, 2016 08:18 - CONCLUSION: 1. Mild improvement in small left pleural effusion. 2. Moderate right pleural effusion without significant change. 3. Artery megaly with bilateral infiltrates again noted. Nadir Hansen MD Lung Scan-VQ Nuclear Medicine 07/09/16 0000 Signed Impressions: Service Date/Time: Saturday, July 09, 2016 23:19 - CONCLUSION: Intermediate probability study. Heterogeneous perfusion but reasonably matched to ventilation, not in a pattern typical of pulmonary embolus, and seen in the setting of bilateral pleural effusions and right greater than left airspace consolidation. Mango Jones MD Objective Remarks GENERAL: Well-developed well-nourished. In no acute distress. Appears stronger. SKIN: Warm and dry. No lesions noted. HEENT: Normocephalic. Pupils equal and round. Mucous membranes pink and moist. CARDIOVASCULAR: Regular rate and rhythm. No murmur appreciated. RESPIRATORY: No accessory muscle use. Clear to auscultation. Breath sounds equal bilaterally. No wheezing. GASTROINTESTINAL: Abdomen soft, non-tender, nondistended. Bowel sounds x4. MUSCULOSKELETAL: No obvious deformities. No clubbing or cyanosis. No edema. NEUROLOGICAL: Awake and alert. No focal neurological deficits. Moves upper and lower extremities spontaneously. Normal speech. PSYCHIATRIC: Appropriate mood and affect; insight and judgment normal. Procedures None A/P Problem List: (1) Pneumonia ICD Code: J18.9 Status: Acute (2) Pleural effusion, bilateral ICD Code: J90 Status: Acute (3) CHF (congestive heart failure) ICD Code: I50.9 Status: Acute (4) JULIANE (acute kidney injury) ICD Code: N17.9 Status: Acute Assessment and Plan Ms. Garcia is a pleasant 75-year-old female with a history of hypothyroidism, CAD status post stent placement in 2007 and CABG 3 in February 2016, atrial fibrillation on Xarelto, COPD who presented to the emergency department on 07/09/2016 with dyspnea that started 3 days prior to this admission. Patient is currently being treated for healthcare associated pneumonia. Right middle lobe pneumonia Probable healthcare associated pneumonia Pleural effusion - Patient hospitalized 3 times since open heart surgery in February 2016, most recent hospitalization June 11, 2016 through June 18, 2016 - Patient allergic to penicillin and erythromycin - Levofloxacin 750 mg IV every 24 hours, Aztreonam 1 g IV every 8 hours - Negative Legionella and pneumococcal antigens - Duonebs q4h PRN sob/wheezing - Pulmonology is following (Dr. Debbie Lind). - S/P Thoracentesis, cultures negative to date. - Chest CT reviewed, stable - Pulmonology recommended transitioning to oral Levaquin, reports patient is clinically stable CAD s/p stent and a recent CABG. Congestive heart failure Atrial fibrillation - Bumex 1 mg by mouth twice a day - Continue aspirin 81 mg Qday, atorvastatin 10 mg daily, diltiazem 90 mg every 6 hours, fenofibrate 140 mg daily, metoprolol 50 mg daily - On Xarelto, resume Mild Acute kidney injury on CKD - BUN 34, creatinine 1.57, estimated GFR 32. Creatinine 1.43 on 07/12/2016. - Avoid nephrotoxins when possible - Creatinine has remained stable during hospitalization - Diabetes mellitus - not well controlled, labile - increased Levemir from 17 units to 20 units units daily at bedtime, sliding scale insulin. - AM glucose is controlled. Added aspart 3 units 3 times a day before meals - Continue to monitor and adjust regimen as needed Anemia. No gross bleeding - Hemoglobin 8; microcytic, hypochromic. Stable - Continue iron. Outpatient colonoscopy - Hemoccult negative. Chronic diarrhea status post extensive workup - Continue Lactinex and Lomotil Anxiety - continue Xanax 0.25 mg by mouth every 8 hours when necessary Hypothyroidism - continue levothyroxine 150 g by mouth daily. Full code. Xarelto Written by Irineo Tavares, acting as scribe for Dr. Perez on 07/15/16 at 14:45. The documentation accurately reflects the work performed [id number] by me on at 1445. Discharge Planning Likely home with [facility] tomorrow if patient continues to improve. Irineo Tavares Jul 15, 2016 2:45 pm Chris Perez DO Jul 15, 2016 5:37 pm
[2016-07-15 16:35] VITALS: BP 139/67; PULSE 64; RESP 14; TEMP 96.3; O2SAT 100
[2016-07-15 19:50] VITALS: BP 159/78; PULSE 69; RESP 16; TEMP 96.4; O2SAT 100
[2016-07-15] MEDS: FENOFIBRATE 145 MG TAB PO SCH (20:25)
[2016-07-15] MEDS: ATORVASTATIN 10 MG TAB PO SCH (20:25)
[2016-07-15] MEDS: INSULIN DETEMIR 100 UNITS/ML VIAL SQ SCH (21:38)
[2016-07-15] MEDS: ALPRAZolam 0.25 MG TAB PO PRN (22:48)
[2016-07-15] MEDS: traZODone HCL 100 MG TAB PO SCH (22:48)
[2016-07-15 23:23] VITALS: BP 167/74; PULSE 62; RESP 16; TEMP 97.8; O2SAT 100
[2016-07-16 04:00] VITALS: BP 113/53; PULSE 70; RESP 16; TEMP 97.9; O2SAT 96
[2016-07-16] MEDS: DILTIAZEM HCL 90 MG TAB PO SCH ×2 (04:48→12:30)
[2016-07-16] MEDS: LEVOTHYROXINE SODIUM 150 MCG TAB PO SCH (04:48)
[2016-07-16] MEDS: INSULIN ASPART SUPPLEMENTAL SCALE SQ SCH ×2 (07:00→11:00)
[2016-07-16 08:00] VITALS: BP 157/68; PULSE 66; RESP 18; TEMP 96.9; O2SAT 98
[2016-07-16] MEDS: INSULIN ASPART 1,000 UNITS/10 ML VIAL SQ SCH ×2 (08:00→12:00)
[2016-07-16] MEDS: ASPIRIN 81 MG CHEW TAB PO SCH (08:41)
[2016-07-16] MEDS: LACTOBACILLUS ACIDOPHILUS TAB PO SCH ×2 (08:41→12:30)
[2016-07-16] MEDS: valACYclovir HCL 500 MG TAB PO SCH (08:42)
[2016-07-16] MEDS: DOCUSATE SODIUM 100 MG CAP PO SCH (08:42)
[2016-07-16] MEDS: METOPROLOL TARTRATE 50 MG TAB PO SCH (08:42)
[2016-07-16] MEDS: PANTOPRAZOLE SOD 40 MG DELAYED RELEASE TAB PO SCH (08:42)
[2016-07-16] MEDS: BUMETANIDE 1 MG TAB PO SCH (08:42)
[2016-07-16] MEDS: FERROUS SULFATE 325 MG (65 MG ELEMENTAL IRON) TAB PO SCH (08:42)
[2016-07-16] MEDS: RIVAROXABAN 15 MG TAB PO SCH (08:42)
[2016-07-16] MEDS: SODIUM CHLORIDE 0.9% FLUSH 5 ML FLUSH FLUSH SCH (08:43)
[2016-07-16] MEDS: DULoxetine HCl DR 60 MG CAP PO SCH (08:43)
[2016-07-16] MEDS: SODIUM CHLOR 0.9% 1000 ML INJ 1,000 ML IV SCH (08:49)
[2016-07-16] MEDS ORDERED: LEVA250T PO (11:26)
[2016-07-16] MEDS ORDERED: XARE15TA PO (11:26)
[2016-07-16] MEDS ORDERED: LOSA50TA PO (11:30)
--- NOTE | 2016-07-16 11:33 | HHI.DS ---
Discharge Summary Admission Date Jul 09, 2016 at 9:40 pm Discharge Date: Jul 16, 2016 Admitting Diagnosis pleural effusion, hypoxia (1) Pneumonia ICD Code: J18.9 Diagnosis: Principal (2) Pleural effusion, bilateral ICD Code: J90 Diagnosis: Principal (3) CHF (congestive heart failure) ICD Code: I50.9 (4) JULIANE (acute kidney injury) ICD Code: N17.9 Procedures Thoracentesis. Brief History - From Admission Ms. Garcia is a 75-year-old female with a past history of hypothyroidism, coronary artery disease status post stent placement 2007 and coronary artery bypass graft 01 March 2016, congestive heart failure, hyperlipidemia, atrial fibrillation on Xarelto, hypertension, COPD, and GERD who presents to the emergency room on 07/09/2016 complaining of difficulty breathing for a duration of 3 days with increasing home oxygen requirements. The patient is seen in her hospital room. She reports difficulty breathing began 3 days ago and progressively worsened. She usually requires 2 L of oxygen via nasal cannula at home and only uses it at night. Over the past 2 days, she has been requiring oxygen during the day to and it has been ineffective in relieving her severe dyspnea. She reports dry cough with no sputum production and no recent increase in cough. She denies fever, chest pain , abdominal pain, diarrhea, constipation. She states she takes Bumex at home and had a thoracentesis 3 weeks ago. Echo 03/09/16 w/ EF 55-60% CBC/BMP: 07/12/16 0552 Significant Findings Laboratory Tests Test 07/14/16 09:25 Pleural Fluid WBC 544 /MM3 (0-10) Pleural Fluid RBC 2140 /MM3 (0-0) Imaging Last Impressions Thoracentesis Ultrasound 07/14/16 0000 Signed Impressions: Service Date/Time: Thursday, July 14, 2016 09:08 - CONCLUSION: Uncomplicated ultrasound guided thoracentesis. Fluid was sent for ordered studies. Remigio Alvarez MD FACR Chest X-Ray 07/14/16 0000 Signed Impressions: Service Date/Time: Thursday, July 14, 2016 09:41 - CONCLUSION: There is no pneumothorax following thoracentesis. Remigio Alvarez MD FACR Chest CT 07/14/16 0000 Signed Impressions: Service Date/Time: Thursday, July 14, 2016 13:34 - CONCLUSION: 1. Consolidation in the right lung base which has increased mildly since the prior study 2. Bilateral pleural effusions remain right greater than left without significant change. Nadir Hansen MD Lung Scan-V Nuclear Medicine 07/09/16 0000 Signed Impressions: Service Date/Time: Saturday, July 09, 2016 23:19 - CONCLUSION: Intermediate probability study. Heterogeneous perfusion but reasonably matched to ventilation, not in a pattern typical of pulmonary embolus, and seen in the setting of bilateral pleural effusions and right greater than left airspace consolidation. Mango Jones MD PE at Discharge GENERAL: Well-developed well-nourished. In no acute distress. Appears stronger. SKIN: Warm and dry. No lesions noted. HEENT: Normocephalic. Pupils equal and round. Mucous membranes pink and moist. CARDIOVASCULAR: Regular rate and rhythm. No murmur appreciated. RESPIRATORY: No accessory muscle use. Clear to auscultation. Breath sounds equal bilaterally. No wheezing. GASTROINTESTINAL: Abdomen soft, non-tender, nondistended. Bowel sounds x4. MUSCULOSKELETAL: No obvious deformities. No clubbing or cyanosis. No edema. NEUROLOGICAL: Awake and alert. No focal neurological deficits. Moves upper and lower extremities spontaneously. Normal speech. PSYCHIATRIC: Appropriate mood and affect; insight and judgment normal. Pt update on day of discharge Patient is doing well. No fever, chills. Feels much better. Hospital Course Ms. Garcia is a pleasant 75-year-old female with a history of hypothyroidism, CAD status post stent placement in 2007 and CABG 3 in February 2016, atrial fibrillation on Xarelto, COPD who presented to the emergency department on 07/09/2016 with dyspnea that started 3 days prior to this admission. Patient is currently being treated for healthcare associated pneumonia. Right middle lobe pneumonia Probable healthcare associated pneumonia Pleural effusion - Patient hospitalized 3 times since open heart surgery in February 2016, most recent hospitalization June 11, 2016 through June 18, 2016 - Received Levofloxacin 750 mg IV every 24 hours, Aztreonam 1 g IV every 8 hours - Negative Legionella and pneumococcal antigens - Duonebs q4h PRN sob/wheezing - Pulmonology is following (Dr. Debbie Lind). - S/P Thoracentesis, cultures negative to date. - Chest CT reviewed, stable - Pulmonology recommended transitioning to oral Levaquin. CAD s/p stent and a recent CABG. Congestive heart failure Atrial fibrillation - Bumex 1 mg by mouth twice a day - Continue aspirin 81 mg Qday, atorvastatin 10 mg daily, diltiazem 90 mg every 6 hours, fenofibrate 140 mg daily, metoprolol 50 mg daily - On Xarelto, resume Mild Acute kidney injury on CKD - BUN 34, creatinine 1.57, estimated GFR 32. Creatinine 1.43 on 07/12/2016. - Avoid nephrotoxins when possible - Creatinine has remained stable during hospitalization - Diabetes mellitus - not well controlled, labile - increased Levemir from 17 units to 20 units units daily at bedtime, sliding scale insulin. - AM glucose is controlled. Added aspart 3 units 3 times a day before meals - Continue to monitor and adjust regimen as needed Anemia. No gross bleeding - Hemoglobin 8; microcytic, hypochromic. Stable - Continue iron. Outpatient colonoscopy - Hemoccult negative. Chronic diarrhea status post extensive workup - Continue Lactinex and Lomotil Anxiety - continue Xanax 0.25 mg by mouth every 8 hours when necessary Hypothyroidism - continue levothyroxine 150 g by mouth daily. Full code. Xarelto Patient was discharged home with home health 07/16/2016. Pt Condition on Discharge: Good Discharge Disposition: Disch w/ Home Health Serv Discharge Time: > 30 minutes Discharge Instructions DIET: Follow Instructions for: Heart Healthy Diet, Diabetic Diet Activities you can perform: Regular-No Restrictions Follow up Referrals: Cardiology - 1 Week PCP Follow-up - 1 Week Pulmonology - 1 Week New Medications: Losartan (Losartan) 50 Mg Tab 50 MG PO DAILY Blood Pressure Management #30 Ref 0 TAB Ferrous Sulfate (Ferrous Sulfate) 325 Mg Tab 325 MG PO BID Build Red Blood Cells #60 TAB Lactobacillus Acidophilus (Acidophilus/l-Sporogenes) 1 Tab Tab 1 TAB PO TID Bowel Management #90 TAB Levofloxacin (Levaquin) 250 Mg Tab 250 MG PO DAILY@11 Infection #5 TAB Rivaroxaban (Xarelto) 15 Mg Tab 15 MG PO DAILY Blood Clot Prevention #30 Ref 2 TAB Continued Medications: Alprazolam (Xanax) 0.25 Mg Tab 0.25 MG PO Q8HR PRN anxiety Days 30 TAB Aspirin (Aspirin Low Strength) 81 Mg Chew 81 MG PO DAILY Days 30 EA Atorvastatin (Lipitor) 10 Mg Tab 10 MG PO HS Days 30 TAB Bumetanide (Bumetanide) 1 Mg Tab 1 MG PO BID@,18 Prevent Heart Failure #60 TAB Cyanocobalamin Inj (Cyanocobalamin Inj) 1,000 Mcg/Ml Inj 1000 MCG IM EVERY 2 WEEKS #1 Ref 0 VIAL Diltiazem (Diltiazem) 90 Mg Tab 90 MG PO q6 hr Angina #120 Ref [address] (Dul[address]) 60 Mg Capdr 120 MG PO DAILY Days 30 CAP Ergocalciferol (Drisdol) 50,000 Unit Cap 33000 UNITS PO WEEKLY ON MONDAYS Nutritional Supplement #30 Ref 0 CAP Fenofibrate (Fenofibrate) 160 Mg Tab 160 MG PO HS #30 Ref 0 TAB Insulin Aspart Inj (Novolog Inj) 1,000 Unit/10 Ml Vial 2-10 UNITS SQ ACHS Max dose at bedtime ( ) units; sugars less than 70,(0) units ; sugars 150-200,(2) units; sugars 201-250,(4) units; sugars 251-300,(6) units; sugars 301-350,(8) units; sugars 351-400. (10) units Blood Sugar Management #10 Ref 0 ML Insulin Glargine Inj (Lantus Inj) 100 Unit/Ml Inj 17 UNITS SQ HS Levothyroxine (Levothyroxine) 150 Mcg Tab 150 MCG PO DAILY@0600 Thyroid #30 Ref 0 TAB Meloxicam (Meloxicam) 7.5 Mg Tab 7.5 MG PO DAILY Arthritis Pain Ref 0 TAB Metoprolol Tartrate (Metoprolol Tartrate) 50 Mg Tab 50 MG PO DAILY #30 Ref 0 TAB Multiple Vitamins W/ Minerals (Thera M Plus) 1 Tab 1 TAB PO DAILY Days 30 TAB Nitroglycerin SL (Nitroglycerin SL) 0.4 Mg Subl 0.4 MG SL DIRECTED ONE TABLET UNDER THE TONGUE NEEDED FOR CHEST PAIN, MAY REPEAT EVERY FIVE MINUTES FOR A TOTAL OF 3 DOSES OR CALL 911 IF NO RELIEF PRN CHEST PAIN #100 Ref 0 TAB.SL Oxygen tank (Oxygen tank) 1 Ea Tank 2 LITER JUANJOSE[facility] CONT[facility] Oxygen Concentrator Portable Gaseous 2 L/min via Nasal Cannula Continuous For 99 months HYPOXEMIA PREVENTION #2 CYLINDER Pantoprazole (Pantoprazole) 40 Mg Tab 40 MG PO DAILY Days 30 TAB Potassium Chloride ER (Klor-Con 10) 10 Meq Tab 10 MEQ PO DAILY Days 7 TAB Trazodone (Trazodone) 50 Mg Tab 50 MG PO HS Days 30 TAB Valacyclovir (Valtrex) 1 Gm Tab 1000 MG PO DAILY Mgmt Viral Infection #30 Ref 0 TAB Discontinued Medications: Losartan (Cozaar) 100 Mg Tab 100 MG PO DAILY Blood Pressure Management #30 Ref 0 TAB Metformin (Metformin) 500 Mg Tab 500 MG PO DAILY With a meal Blood Sugar Management #30 Ref 0 TAB Chris Perez DO Jul 16, 2016 11:33 am
[2016-07-16 11:40] VITALS: O2SAT 99
[2016-07-16] MEDS: LEVOFLOXACIN 250 MG TAB PO SCH (12:30)
--- NOTE | 2016-07-16 13:47 | HHI.FF ---
Face to Face Verification Diagnosis: (1) PNA (pneumonia) (2) Pleural effusion (3) Atrial fibrillation Home Health Nursing Order: Medical education Signs/symptoms of disease process Oxygen administration education Medication education-adverse effect Wound care and dressing changes Nursing assessment with vital signs I have seen patient Lorenza Garcia on 07/16/16. My clinical findings support the need for the requested home health care services because: Ltd mobility - disease progression Patient has SOB Deconditioned w/ increased weakness Limited ability to care for self Need for psychosocial assistance High risk of falls Infection w/ risk of complications I certify that my clinical findings support that this patient is homebound because: Impaired cognitive ability/safety Unsteady gait/balance Unsafe to leave home unassisted Unable to use public transportation Chris Perez DO Jul 16, 2016 1:47 pm
== END 2016-07-16 15:36 | disposition home health service (06) | DRG 194 ==
LOC: NEPC 17:08 → NEDA 21:40 → N06A 07-10 01:48
PROVIDERS: ADMIT Hospitalist; ATTEND Hospitalist
PROC: 0W993ZX Drainage of Right Pleural Cavity, Percutaneous Approach, Diagnostic (ICD-10-PCS; principal; 2016-07-14)
DX: J18.9 Pneumonia, unspecified organism (principal); J90 Pleural effusion, not elsewhere classified; N17.9 Acute kidney failure, unspecified; I50.9 Heart failure, unspecified; E11.22 Type 2 diabetes mellitus with diabetic chronic kidney disease; I48.2 Chronic atrial fibrillation; Z99.81 Dependence on supplemental oxygen; I25.10 Atherosclerotic heart disease of native coronary artery without angina pectoris; N18.9 Chronic kidney disease, unspecified; I12.9 Hypertensive chronic kidney disease with stage 1 through stage 4 chronic kidney disease, or unspecified chronic kidney disease; J44.9 Chronic obstructive pulmonary disease, unspecified; M19.90 Unspecified osteoarthritis, unspecified site; Z79.01 Long term (current) use of anticoagulants; E78.00 Pure hypercholesterolemia, unspecified; H91.90 Unspecified hearing loss, unspecified ear; K21.9 Gastro-esophageal reflux disease without esophagitis; K44.9 Diaphragmatic hernia without obstruction or gangrene; E03.9 Hypothyroidism, unspecified; I25.2 Old myocardial infarction; Z95.5 Presence of coronary angioplasty implant and graft; Z95.1 Presence of aortocoronary bypass graft; Z88.1 Allergy status to other antibiotic agents; Z88.0 Allergy status to penicillin; Z88.8 Allergy status to other drugs, medicaments and biological substances; Z79.4 Long term (current) use of insulin; R09.02 Hypoxemia; Z87.01 Personal history of pneumonia (recurrent); Z87.891 Personal history of nicotine dependence; E78.5 Hyperlipidemia, unspecified; Z98.84 Bariatric surgery status; Y95 Nosocomial condition; D64.9 Anemia, unspecified; F41.9 Anxiety disorder, unspecified
CPT/HCPCS: 32555; 71010; 71020; 71250; 76937; 78582; 80048; 80053; 81001; 82272; 82550; 82728; 82945; 82948; 83540; 83550; 83615; 83735; 83880; 83986; 84157; 84484; 85025; 85610; 85730; 87015; 87040; 87070; 87102; 87116; 87205; 87206; 87449; 87493; 87804; 89051; 93005; 94150; 94620; 94640; 94664; 96361; 96374; 96375; A9540; A9567; C1729; J1815; J1956; J2930; J7030; J7040; J7512

== ENCOUNTER 2016-07-21 13:40 | Inpatient (IN) | payer OTHER ==
[~2016-07-21] VITALS: Ht 157.5 cm; Wt 68.3 kg
[~2016-07-21 13:40] MED LIST changes: -AMLO5 PO; +FERR325T PO; +LACT PO; +LEVA250T PO; +LOSA50TA PO; +MELO7.5T4 PO; -METF500T PO; +METO50TA PO; -OXYC1TAB63 PO; +XARE15TA PO; -XARE20TA PO
[2016-07-21 14:10] VITALS: BP 135/71; PULSE 76; RESP 24; TEMP 98.5; O2SAT 82
[2016-07-21] MEDS ORDERED: SODIUM CHLORIDE 0.9% FLUSH 5 ML FLUSH IVF PRN (14:15)
[2016-07-21 14:17] VITALS: RESP 24; O2SAT 89
[2016-07-21 14:35] VITALS: BP 135/71; PULSE 69; RESP 18; O2SAT 95
[2016-07-21 14:36] LABS: AUTOMATED NEUTROPHIL # 10.9 TH/MM3 (1.8-7.7); BASOPHIL # 0.2 TH/MM3 (0-0.2); BASOPHIL % 1.4 % (0.0-2.0); EOSINOPHIL # 0.1 TH/MM3 (0-0.4); EOSINOPHIL % 0.9 % (0.0-4.0); HEMATOCRIT 30.7 % (35.0-46.0); LYMPH % 6.5 % (9.0-44.0); LYMPHOCYTE # 0.8 TH/MM3 (1.0-4.8); MEAN CORPUSCULAR HEMOGLOBIN 22.1 PG (27.0-34.0); MEAN CORPUSCULAR HGB CONC 30.2 % (32.0-36.0); MONO % 6.4 % (0.0-8.0); NEUT % 84.8 % (16.0-70.0); PLATELET COUNT 368 TH/MM3 (150-450); RED BLOOD COUNT 4.21 MIL/MM3 (4.00-5.30); RED CELL DISTRIBUTION WIDTH 23.9 % (11.6-17.2); WHITE BLOOD COUNT 12.8 TH/MM3 (4.0-11.0)
[2016-07-21 14:37] LABS: HEMO FLAGS AUTO DIFF
--- NOTE | 2016-07-21 14:46 | PD ---
HPI Chief Complaint: Respiratory Distress Time Seen by Provider: 13:55 Travel History International Travel<30 days: No Contact w/Intl Traveler<30days: No Traveled to known affect area: No History of Present Illness HPI This 75-year-old woman who presents to the emergency department complaining of worsening shortness of breath. She underwent a CABG procedure in February of last year, and since that time is been admitted to the hospital multiple times for complications including infection sepsis pneumonia and pleural effusions. She was discharged from the hospital on July 16, 5 days ago, after being admitted March 08 with pneumonia and pleural effusion. She should okay for 2 days but over the last 3 days had had increasing shortness of breath and dyspnea on exertion. Said some subjective chills as well. No chest pain. No cough. She does get some is occasional swelling in her legs. Review systems also positive for frequent urination. She is on home oxygen now, and has been since her second a last admission. History Past Medical History Narrative Medical CAD, CABG February 2016 Hypothyroidism CHF Hyperlipidemia A. fib, on Xarelto Hypertension COPD Diabetes Social History Alcohol Use: Yes (socially) Tobacco Use: No Allergies-Medications (Allergen,Severity, Reaction): Coded Allergies: Erythromycin (Verified Allergy, Unknown, 07/09/16) Lasix (Verified Allergy, Unknown, 07/09/16) Penicillin (Verified Allergy, Unknown, 07/09/16) Reported Meds & Prescriptions Reported Meds & Active Scripts Active Losartan (Losartan Potassium) 50 Mg Tab 50 Mg PO DAILY Xarelto (Rivaroxaban) 15 Mg Tab 15 Mg PO DAILY Levaquin (Levofloxacin) 250 Mg Tab 250 Mg PO DAILY@11 Acidophilus/l-Sporogenes (Lactobacillus Acidophilus) 1 Tab Tab 1 Tab PO TID Ferrous Sulfate 325 Mg Tab 325 Mg PO BID Oxygen tank (Oxygen) 1 Ea Tank 2 Liter JUANJOSE.CANULA CONTINUOUS Oxygen Concentrator Portable Gaseous 2 L/min via Nasal Cannula Continuous For 99 months Bumetanide 1 Mg Tab 1 Mg PO BID@ Trazodone (Trazodone HCl) 50 Mg Tab 50 Mg PO HS 30 Days Klor-Con 10 (Potassium Chloride) 10 Meq Tab 10 Meq PO DAILY 7 Days Pantoprazole (Pantoprazole Sodium) 40 Mg Tab 40 Mg PO DAILY 30 Days Thera M Plus (Multivitamins/Minerals Therapeutic) 1 Tab 1 Tab PO DAILY [address] (Duloxetine HCl) 60 Mg Capdr 120 Mg PO DAILY 30 Days Lipitor (Atorvastatin Calcium) 10 Mg Tab 10 Mg PO HS 30 Days Aspirin Low Strength (Aspirin) 81 Mg Chew 81 Mg PO DAILY 30 Days Xanax (Alprazolam) 0.25 Mg Tab 0.25 Mg PO Q8HR PRN 30 Days Reported Metoprolol Tartrate 50 Mg Tab 50 Mg PO DAILY Meloxicam 7.5 Mg Tab 7.5 Mg PO DAILY Diltiazem (Diltiazem HCl) 90 Mg Tab 90 Mg PO Q6 HR Novolog Inj (Insulin Aspart) 1,000 Unit/10 Ml Vial 2-10 Units SQ ACHS Sliding Scale Nitroglycerin SL (Nitroglycerin) 0.4 Mg Subl 0.4 Mg SL DIRECTED PRN ONE TABLET UNDER THE TONGUE NEEDED FOR CHEST PAIN, MAY REPEAT EVERY FIVE MINUTES FOR A TOTAL OF 3 DOSES OR CALL 911 IF NO RELIEF Valtrex (Valacyclovir HCl) 1 Gm Tab 1 Gm PO DAILY Drisdol (Ergocalciferol) 50,000 Unit Cap 50,000 Units PO WEEKLY ON MONDAYS Cyanocobalamin Inj (Cyanocobalamin) 1,000 Mcg/Ml Inj 1,000 Mcg IM EVERY 2 WEEKS Lantus Inj (Insulin Glargine) 100 Unit/Ml Inj 17 Units SQ HS Levothyroxine (Levothyroxine Sodium) 150 Mcg Tab 150 Mcg PO DAILY@0600 Fenofibrate 160 Mg Tab 160 Mg PO HS Review of Systems Except as stated in HPI: all other systems reviewed are Neg Physical Exam Narrative GENERAL: Well-appearing 75-year-old woman, mild to moderate respiratory distress. SKIN: Warm and dry. NECK: Trachea midline. No JVD. CARDIOVASCULAR: Regular rate and rhythm. No murmur appreciated. RESPIRATORY: No accessory muscle use. Clear to auscultation. Breath sounds equal bilaterally. GASTROINTESTINAL: Abdomen soft, non-tender, nondistended. Hepatic and splenic margins not palpable. MUSCULOSKELETAL: No obvious deformities. No edema. NEUROLOGICAL: Awake and alert. No obvious cranial nerve deficits. Motor grossly within normal limits. Normal speech. PSYCHIATRIC: Appropriate mood and affect; insight and judgment normal. Data Data Last Documented VS Vital Signs Date Time Temp Pulse Resp B/P Pulse Ox O2 Delivery O2 Flow Rate FiO2 07/21/16 14:35 69 18 135/71 95 Nasal Cannula 3 07/21/16 14:10 98.5 Orders Complete Blood Count With Diff (07/21/16 14:10) Comprehensive Metabolic Panel (07/21/16 14:10) B-Type Natriuretic Peptide (07/21/16 14:10) Act Partial Throm Time (Ptt) (07/21/16 14:10) Prothrombin Time / Inr (Pt) (07/21/16 14:10) Magnesium (Mg) (07/21/16 14:10) Troponin I (07/21/16 14:10) Urinalysis - C+S If Indicated (07/21/16 14:10) Iv Access Insert/Monitor (07/21/16 14:10) Ecg Monitoring (07/21/16 14:10) Oximetry (07/21/16 14:10) Oxygen Administration (07/21/16 14:10) Chest, Single Ap (07/21/16 14:10) Sodium Chloride 0.9% Flush (Ns Flush) (07/21/16 14:15) Electrocardiogram (07/21/16 ) Urine Culture (07/21/16 15:50) Admit Order (Ed Use Only) (07/21/16 ) Labs Laboratory Tests Test 07/21/16 07/21/16 14:20 15:50 White Blood Count 12.8 TH/MM3 Red Blood Count 4.21 MIL/MM3 Hemoglobin 9.3 GM/DL Hematocrit 30.7 % Mean Corpuscular Volume 73.0 FL Mean Corpuscular Hemoglobin 22.1 PG Mean Corpuscular Hemoglobin 30.2 % Concent Red Cell Distribution Width 23.9 % Platelet Count 368 TH/MM3 Mean Platelet Volume 8.5 FL Neutrophils (%) (Auto) 84.8 % Lymphocytes (%) (Auto) 6.5 % Monocytes (%) (Auto) 6.4 % Eosinophils (%) (Auto) 0.9 % Basophils (%) (Auto) 1.4 % Neutrophils # (Auto) 10.9 TH/MM3 Lymphocytes # (Auto) 0.8 TH/MM3 Monocytes # (Auto) 0.8 TH/MM3 Eosinophils # (Auto) 0.1 TH/MM3 Basophils # (Auto) 0.2 TH/MM3 CBC Comment AUTO DIFF Differential Comment AUTO DIFF CONFIRMED Ovalocytes 1+ Sodium Level 138 MEQ/L Potassium Level 3.7 MEQ/L Chloride Level 96 MEQ/L Carbon Dioxide Level 31.8 MEQ/L Anion Gap 10 MEQ/L Blood Urea Nitrogen 15 MG/DL Creatinine 1.20 MG/DL Estimat Glomerular Filtration 44 ML/MIN Rate Random Glucose 74 MG/DL Calcium Level 9.2 MG/DL Magnesium Level 1.6 MG/DL Total Bilirubin 0.5 MG/DL Aspartate Amino Transf 31 U/L (AST/SGOT) Alanine Aminotransferase 21 U/L (ALT/SGPT) Alkaline Phosphatase 70 U/L Troponin I 0.25 NG/ML B-Type Natriuretic Peptide 342 PG/ML Total Protein 7.7 GM/DL Albumin 3.1 GM/DL Urine Color YELLOW Urine Turbidity CLEAR Urine pH 5.5 Urine Specific [place] 1.008 Urine Protein 30 mg/dL Urine Glucose (UA) NEG mg/dL Urine Ketones NEG mg/dL Urine Occult Blood NEG Urine Nitrite NEG Urine Bilirubin NEG Urine Urobilinogen LESS THAN 2.0 MG/DL Urine Leukocyte Esterase LARGE Urine RBC 4 /hpf Urine WBC 10 /hpf Urine Squamous Epithelial 2 /hpf Cells Urine Bacteria RARE /hpf Urine Hyaline Casts 5 /lpf Urine Mucus FEW /lpf Microscopic Urinalysis Comment CULTURE INDICATED MDM Medical Decision Making Medical Screen Exam Complete: Yes Emergency Medical Condition: Yes Interpretation(s) My review of EKG: A. fib, rate of 71, rightward axis, normal intervals, nonspecific lateral T-wave flattening. No definite evidence of acute ischemia. LABS: CBC remarkable for mild anemia. CMP remarkable for creatinine 1.2 Troponin 0.25 BNP 342 Coags pending UA pending Chest x-ray: Right sided pleural effusion, small left-sided pleural effusion, some patchiness in the left lung as well. Differential Diagnosis Pleural effusion, heart failure, pneumonia, ACS, other Narrative Course Medical decision making 75 year-old woman with worsening shortness of breath, hypoxia, ongoing with worsening symptoms or past couple days. Recurrent pneumonia and pleural effusion since CABG in February. Looks labored. Initial pulse ox was in the 70s on her home oxygen in triage. We'll check labs, x-ray, reassess. FINAL: Patient with recurrent pleural effusion, hypoxia and shortness of breath , plan on admission for further evaluation. Procedures Procedure Narrative Ultrasound guided peripheral IV: Nursing staff unable to establish IV access. Patient difficult stick. Multiple failed attempts. Using real-time ultrasound, an 18-gauge injure Was placed in the right before meals. One initial attempt with a 20 right forearm was unsuccessful. Patient tolerated well. No complaints. Diagnosis Primary Impression: Pleural effusion Additional Impression: Hypoxia Davon Samuel MD Jul 21, 2016 14:46
[2016-07-21 15:03] LABS: ALKALINE PHOSPHATASE 70 U/L (45-117); ALT (GPT) 21 U/L (10-53); ANION GAP 10 MEQ/L (5-15); AST (GOT) 31 U/L (15-37); BICARBONATE 31.8 MEQ/L (21.0-32.0); BLOOD UREA NITROGEN 15 MG/DL (7-18); CHLORIDE 96 MEQ/L (98-107); GLOMERULAR FILTRATION RATE 44 ML/MIN (>89); MAGNESIUM 1.6 MG/DL (1.5-2.5); POTASSIUM 3.7 MEQ/L (3.5-5.1); SODIUM (NA) 138 MEQ/L (136-145); TOTAL BILIRUBIN ADULT 0.5 MG/DL (0.2-1.0)
[2016-07-21 15:24] LABS: OVALOCYTES 1+ (NORMAL); SCAN/DIFF AUTO DIFF CONFIRMED
--- NOTE | 2016-07-21 16:14 | RADRPT ---
EXAM DATE/TIME: 07/21/2016 15:19 [facility] COMPARISON: CHEST EXPIRATION ONLY, July 14, 2016, 9:41. INDICATIONS : Short of breath. MEDICAL HISTORY : Chronic obstructive pulmonary disease. SURGICAL HISTORY : Coronary artery stent. CABG. ENCOUNTER: Initial ACUITY: 1 day PAIN SCORE: 0/10 LOCATION: Bilateral chest FINDINGS: Large right pleural effusion and small left pleural effusion are again noted. Consolidative changes i n the perihilar regions and lung bases are grossly stable. Vascular congestion and interstitial promi nence are basically stable. Cardiac contours are largely obscured. There has been previous sternotomy . CONCLUSION: No significant interval change Mango Sheets MD on July 21, 2016 at 16:12 Board Certified Radiologist. This report was verified electronically.
[2016-07-21 16:18] LABS: BACTERIA, URINE RARE /hpf; BLOOD, URINE NEG (NEG); COMMENT (UR) CULTURE INDICATED; CULTURE IF INDICATED CULTURE INDICATED; GLUCOSE,URINE NEG (NEG); HYALINE CAST, URINE 5 /lpf (RARE); KETONE, URINE NEG (NEG); MUCUS URINE FEW /lpf (OCC); NITRITE,URINE NEG (NEG); PH, URINE 5.5 (5.0-8.5); SQUAMOUS EPITHELIAL CELL URINE 2 /hpf (0-5); URINE COLOR YELLOW (YELLW/STRAW)
--- NOTE | 2016-07-21 16:38 | HHI.HP ---
[facility] Service [facility] Primary [facility] Physician Remigio Lee, DO Admission Diagnosis hypoxia, shortness of breath, pleural effusion Diagnoses: (1) Bilateral pleural effusion (2) Lung infiltrate (3) A-fib (4) HTN (hypertension) (5) Coronary artery disease (6) Hyperlipemia (7) Hypothyroidism (8) DM2 (diabetes mellitus, type 2) (9) Hypoxia (10) UTI (urinary tract infection) Chief Complaint: Shortness of breath Travel History International Travel<30 Days: No Contact w/Intl Traveler <30 Da: No Traveled to Known Affected Are: No History of Present Illness 75-year-old female with a past history of hypothyroidism, coronary artery disease status post stent placement 2007 and coronary artery bypass graft 01 March 2016, congestive heart failure, hyperlipidemia, atrial fibrillation on Xarelto, hypertension, COPD, and GERD who presents to the emergency room on 07/21 complaining of difficulty breathing for a duration of 3 days with increasing home oxygen requirements.Patient hospitalized 4 times since open heart surgery in February 2016, most recent hospitalization 07/10/16 through during which patient had thoracentesis with 600 cc removed on 07/14/16. She states she's been compliant with for medical care. She denies any dysuria, febrile episode or chest pain. Review of Systems Other 12 systems reviewed and negative except for the one mentioned in the history of present illness Past Family Social History Past Medical History hypothyroidism, coronary artery disease status post stent placement 2007 and coronary artery bypass graft 01 March 2016, congestive heart failure, hyperlipidemia, arthritis, diabetes mellitus, atrial fibrillation on Xarelto, hypertension, COPD, and GERD Echo 03/09/16 w/ EF 55-60% . Past Surgical History CABG 3 in February 2016 Gastric bypass Back surgery Bilateral cataract surgery Reported Medications Losartan (Losartan Potassium) 50 Mg Tab 50 Mg PO DAILY Xarelto (Rivaroxaban) 15 Mg Tab 15 Mg PO DAILY Levaquin (Levofloxacin) 250 Mg Tab 250 Mg PO DAILY@11 Acidophilus/l-Sporogenes (Lactobacillus Acidophilus) 1 Tab Tab 1 Tab PO TID Ferrous Sulfate 325 Mg Tab 325 Mg PO BID Oxygen tank (Oxygen) 1 Ea Tank 2 Liter JUANJOSE.CANULA CONTINUOUS Oxygen Concentrator Portable Gaseous 2 L/min via Nasal Cannula Continuous For 99 months Bumetanide 1 Mg Tab 1 Mg PO BID@,18 Trazodone (Trazodone HCl) 50 Mg Tab 50 Mg PO HS 30 Days Klor-Con 10 (Potassium Chloride) 10 Meq Tab 10 Meq PO DAILY 7 Days Pantoprazole (Pantoprazole Sodium) 40 Mg Tab 40 Mg PO DAILY 30 Days Thera M Plus (Multivitamins/Minerals Therapeutic) 1 Tab 1 Tab PO DAILY [address] (Duloxetine HCl) 60 Mg Capdr 120 Mg PO DAILY 30 Days Lipitor (Atorvastatin Calcium) 10 Mg Tab 10 Mg PO HS 30 Days Aspirin Low Strength (Aspirin) 81 Mg Chew 81 Mg PO DAILY 30 Days Xanax (Alprazolam) 0.25 Mg Tab 0.25 Mg PO Q8HR PRN 30 Days Reported Metoprolol Tartrate 50 Mg Tab 50 Mg PO DAILY Meloxicam 7.5 Mg Tab 7.5 Mg PO DAILY Diltiazem (Diltiazem HCl) 90 Mg Tab 90 Mg PO Q6 HR Novolog Inj (Insulin Aspart) 1,000 Unit/10 Ml Vial 2-10 Units SQ ACHS Sliding Scale Nitroglycerin SL (Nitroglycerin) 0.4 Mg Subl 0.4 Mg SL DIRECTED PRN ONE TABLET UNDER THE TONGUE NEEDED FOR CHEST PAIN, MAY REPEAT EVERY FIVE MINUTES FOR A TOTAL OF 3 DOSES OR CALL 911 IF NO RELIEF Valtrex (Valacyclovir HCl) 1 Gm Tab 1 Gm PO DAILY Drisdol (Ergocalciferol) 50,000 Unit Cap 50,000 Units PO WEEKLY ON MONDAYS Cyanocobalamin Inj (Cyanocobalamin) 1,000 Mcg/Ml Inj 1,000 Mcg IM EVERY 2 WEEKS Lantus Inj (Insulin Glargine) 100 Unit/Ml Inj 17 Units SQ HS Levothyroxine (Levothyroxine Sodium) 150 Mcg Tab 150 Mcg PO DAILY@0600 Fenofibrate 160 Mg Tab 160 Mg PO HS Allergies: Coded Allergies: Erythromycin (Verified Allergy, Unknown, 07/09/16) Lasix (Verified Allergy, Unknown, 07/09/16) Penicillin (Verified Allergy, Unknown, 07/09/16) Family History Father from myocardial infarction Mother from myocardial infarction . Social History Tobacco: Quit smoking 30 years ago Alcohol: Denies daily alcohol use Physical Exam Vital Signs Vital Signs Date Time Temp Pulse Resp B/P Pulse Ox O2 Delivery O2 Flow Rate FiO2 07/21/16 14:35 69 18 135/71 95 Nasal Cannula 3 07/21/16 14:35 93 Nasal Cannula 3 07/21/16 14:17 24 89 Nasal Cannula 3 07/21/16 14:17 89 Nasal Cannula 3 07/21/16 14:10 98.5 76 24 135/71 82 Physical Exam GENERAL: This is a well-nourished, well-developed patient, in no apparent distress. SKIN: No rashes, ecchymoses or lesions. Cool and dry. HEAD: Atraumatic. Normocephalic. No temporal or scalp tenderness. EYES: Pupils equal round and reactive. Extraocular motions intact. No scleral icterus. No injection or drainage. ENT: Nose without bleeding, purulent drainage or septal hematoma. Throat without erythema, tonsillar hypertrophy or exudate. Uvula midline. Airway patent. NECK: Trachea midline. No JVD or lymphadenopathy. Supple, nontender, no meningeal signs. CARDIOVASCULAR: Irregular Regular rate and rhythm without murmurs, gallops, or rubs. RESPIRATORY: Breath sounds decreased bilaterally. No wheezes, rales, or rhonchi. GASTROINTESTINAL: Abdomen soft, non-tender, nondistended. No hepato-splenomegaly , or palpable masses. No guarding. MUSCULOSKELETAL: Extremities without clubbing, cyanosis, or edema. No joint tenderness, effusion, or edema noted. No calf tenderness. Negative Homans sign bilaterally. NEUROLOGICAL: Awake and alert. Cranial nerves II through XII intact. Motor and sensory grossly within normal limits. Five out of 5 muscle strength in all muscle groups. Normal speech. Laboratory Laboratory Tests Test 07/21/16 07/21/16 14:20 15:50 White Blood Count 12.8 Red Blood Count 4.21 Hemoglobin 9.3 Hematocrit 30.7 Mean Corpuscular Volume 73.0 Mean Corpuscular Hemoglobin 22.1 Mean Corpuscular Hemoglobin 30.2 Concent Red Cell Distribution Width 23.9 Platelet Count 368 Mean Platelet Volume 8.5 Neutrophils (%) (Auto) 84.8 Lymphocytes (%) (Auto) 6.5 Monocytes (%) (Auto) 6.4 Eosinophils (%) (Auto) 0.9 Basophils (%) (Auto) 1.4 Neutrophils # (Auto) 10.9 Lymphocytes # (Auto) 0.8 Monocytes # (Auto) 0.8 Eosinophils # (Auto) 0.1 Basophils # (Auto) 0.2 CBC Comment AUTO DIFF Differential Comment AUTO DIFF CONFIRMED Ovalocytes 1+ Sodium Level 138 Potassium Level 3.7 Chloride Level 96 Carbon Dioxide Level 31.8 Anion Gap 10 Blood Urea Nitrogen 15 Creatinine 1.20 Estimat Glomerular Filtration 44 Rate Random Glucose 74 Calcium Level 9.2 Magnesium Level 1.6 Total Bilirubin 0.5 Aspartate Amino Transf 31 (AST/SGOT) Alanine Aminotransferase 21 (ALT/SGPT) Alkaline Phosphatase 70 Troponin I 0.25 B-Type Natriuretic Peptide 342 Total Protein 7.7 Albumin 3.1 Urine Color YELLOW Urine Turbidity CLEAR Urine pH 5.5 Urine Specific [place] 1.008 Urine Protein 30 Urine Glucose (UA) NEG Urine Ketones NEG Urine Occult Blood NEG Urine Nitrite NEG Urine Bilirubin NEG Urine Urobilinogen LESS THAN 2.0 Urine Leukocyte Esterase LARGE Urine RBC 4 Urine WBC 10 Urine Squamous Epithelial 2 Cells Urine Bacteria RARE Urine Hyaline Casts 5 Urine Mucus FEW Microscopic Urinalysis Comment CULTURE INDICATED Date/Time Procedure Status Source Growth 07/21/16 15:50 Urine Culture Received Urine Clean Catch Pending Result Diagram: 07/21/16 14207/21/16 142 Imaging Last Impressions Chest X-Ray 07/21/16 141 Signed Impressions: Service Date/Time: Thursday, July 21, 2016 15:19 - CONCLUSION: No significant interval change Mango Sheets MD Assessment and Plan Problem List: (1) Bilateral pleural effusion ICD Code: J90 Status: Acute (2) Lung infiltrate ICD Code: R91.8 Status: Acute (3) UTI (urinary tract infection) ICD Code: N39.0 Status: Acute (4) A-fib ICD Code: I48.91 Status: Acute (5) HTN (hypertension) ICD Code: I10 Status: Acute (6) Dyspnea ICD Code: R06.00 Status: Acute (7) Coronary artery disease ICD Code: I25.10 Status: Chronic (8) Hyperlipemia ICD Code: E78.5 Status: Chronic (9) Hypothyroidism ICD Code: E03.9 Status: Chronic (10) Hypertension ICD Code: I10 Status: Chronic (11) DM2 (diabetes mellitus, type 2) ICD Code: E11.9 Status: Chronic Assessment and Plan 75-year-old female with Pleural effusions along with HCAP - Patient hospitalized 4 times since open heart surgery in February 2016, most recent hospitalization 07/10/16 through the right 2016 - Starts Levofloxacin 750 mg IV every 24 hours - Duonebs q4h PRN sob/wheezing - Consult Pulmonology - Consult interventional radiology for right sided ultrasound guided Thoracentesis 07/22/16 - Chest x-ray noted and review with finding of right large pleural effusion, small pleural effusion UTI: Abnormal UA, will start Levaquin 750 IV daily pending urine culture CAD s/p stent and a recent CABG. Congestive heart failure Atrial fibrillation - Resume Bumex 1 mg by mouth twice a day - Resume Bumex, aspirin 81 mg Qday, atorvastatin 10 mg daily, diltiazem 90 mg every 6 hours, fenofibrate 140 mg daily, metoprolol 50 mg daily - Hold Xarelto Mild Acute kidney injury on CKD - Avoid nephrotoxins when possible - Creatinine has remained stable during hospitalization - Diabetes mellitus - - Resume Levemir and start sliding scale insulin. Anemia. No gross bleeding - microcytic, hypochromic. Stable - Continue iron. Outpatient colonoscopy Anxiety - resume Xanax 0.25 mg by mouth every 8 hours when necessary Hypothyroidism - resume levothyroxine 150 g by mouth daily. DVT prophylaxis: Bilateral SCDs; hold Xarelto Code Status Full code Discussed Condition With Patient, ED physician Physician Certification 2 Midnight Certification Type: Admission for Inpatient Services Order for Inpatient Services The services are ordered in accordance with Medicare regulations or non- Medicare payer requirements, as applicable. In the case of services not specified as inpatient-only, they are appropriately provided as inpatient services in accordance with the 2-midnight benchmark. Estimated LOS (days): 2 days is the estimated time the patient will need to remain in the hospital, assuming treatment plan goals are met and no additional complications. Post-Hospital Plan: Not yet determined Rommel Stevens MD Jul 21, 2016 16:38
[2016-07-21] MEDS ORDERED: TEMAZEPAM 15 MG CAP PO PRN (16:45)
[2016-07-21] MEDS ORDERED: ACETAMINOPHEN 325 MG TAB PO PRN ×2 (16:45)
[2016-07-21] MEDS ORDERED: ONDANSETRON HCL 4 MG/2 ML VIAL IVP PRN (16:45)
[2016-07-21] MEDS ORDERED: NALOXONE HCL 0.4 MG/ML AMP IV PRN (16:45)
[2016-07-21] MEDS ORDERED: SODIUM CHLORIDE 0.9% FLUSH 5 ML FLUSH FLUSH PRN (16:45)
[2016-07-21] MEDS ORDERED: RESP: ALBUTEROL 2.5 MG/IPRATROPIUM 0.5 MG NEB (PRN) NEB (16:45)
[2016-07-21 17:25] LABS: APTT (PATIENT) 39.2 SEC (24.3-30.1); INTERNATIONAL NORMALIZED RATIO 1.4 RATIO; PROTHROMBIN TIME - PATIENT 15.5 SEC (9.8-11.6)
[2016-07-21] MEDS ORDERED: ALPRAZolam 0.25 MG TAB PO PRN (17:30)
[2016-07-21] MEDS ORDERED: GLUCAGON 1 MG/ML VIAL OTHER PRN (17:30)
[2016-07-21] MEDS ORDERED: DEXTROSE 50% IN WATER 50 ML VIAL(D50) IV PUSH PRN (17:30)
[2016-07-21 18:42] VITALS: BP 170/67; PULSE 73; RESP 18; O2SAT 95
[2016-07-21] MEDS ORDERED: LEVOFLOXACIN 750 MG PREMIX INJ 150 ML IV SCH (20:00)
[2016-07-21 20:21] VITALS: BP 165/67; PULSE 77; RESP 20; O2SAT 96
[2016-07-21] MEDS: BUMETANIDE 1 MG TAB PO SCH (20:38)
[2016-07-21] MEDS: SODIUM CHLORIDE 0.9% FLUSH 5 ML FLUSH FLUSH SCH (20:38)
[2016-07-21] MEDS: DILTIAZEM HCL 90 MG TAB PO SCH (20:38)
[2016-07-21] MEDS ORDERED: INSULIN GLARGINE 1,000 UNITS/10 ML VIAL SQ SCH (21:00)
[2016-07-21] MEDS: INSULIN ASPART SUPPLEMENTAL SCALE SQ SCH (21:30)
--- NOTE | 2016-07-21 22:00 | MB ---
cc: FALLON LYNNE MD DATE OF CONSULTATION 07/21/[address] Rommel Stevens REASON FOR CONSULTATION Evaluate for pleural effusion. HISTORY OF PRESENT ILLNESS Ms. Garcia is a 76-year-old female with a history of coronary artery disease status post CABG times three done here by Dr. Mi Blackwell. She has been admitted a few times with shortness of breath and had thoracentesis and pleural fluid was transudative in nature. She was discharged from this hospital about a week or so ago. She comes back again with shortness of breath. She has cough and congestion. Does not have any fever or chills. No night sweats. She had a workup done. Her chest x-ray shows right pleural effusion, small left pleural effusion. She has consolidative changes in the lung. Her CBC showed WBC count 12.8, hemoglobin 9.3, hematocrit 30.7, MCV 73, platelet count 368. Sodium 130, potassium 3.7, chloride 96, CO2 31, BUN 15, creatinine 1.20. PAST MEDICAL HISTORY Significant for: 1. A history of coronary artery disease status post coronary artery bypass graft. 2. History of myocardial infarction and stent placement in the past. 3. Congestive heart failure. 4. Hypertension. 5. Diabetes mellitus. MEDICATIONS She is currently takin. Cymbalta 120 milligrams a day. 2. Metoprolol 50 milligrams daily. 3. Protonix 40 milligrams daily. 4. Potassium 10 milliequivalents daily. 5. Valacyclovir 1000 milligrams daily. 6. Synthroid 150 micrograms daily. 7. Lipitor 10 mg a day. 8. Fenofibrate 160 mg a day. 9. Ferrous sulfate 325 mg a day. 10. Bumex 1 mg a day. 11. Diltiazem 90 milligrams q.6h. 12. Xanax 0.25 milligrams as needed. 13. Levaquin IV. 14. Temazepam 15 milligrams at nighttime. ALLERGIES SHE IS ALLERGIC TO AZITHROMYCIN, LASIX AND PENICILLIN. 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 Has a history of smoking which she quit 30 years ago. FAMILY HISTORY She had one son who committed suicide. REVIEW OF SYSTEMS The patient lives alone. Normally up around and active. Does not does not use any nebulizer treatment. Recently she started using oxygen. No seizure, stroke or epilepsy. PHYSICAL EXAMINATION GENERAL: Pleasant elderly female, mild short of breath. Not in any acute distress. . VITAL SIGNS: Blood pressure 135/71, heart rate 69, respirations 18. HEENT: Pupils are equal and reactive to light. She had bilateral cataract surgery done. Oral mucosa, nasal mucosa normal. NECK: Supple. JVP not raised. CHEST: She has decreased breath sounds at the right base. CARDIOVASCULAR: S1, S2 normal. ABDOMEN: Benign. EXTREMITIES: 1+ pedal edema. IMPRESSION 1. Recurrent pleural effusions status post multiple thoracenteses ____ pleural effusion transudate. 2. Coronary artery disease status post coronary artery bypass graft. 3. Basal infiltrate. 4. Diabetes mellitus. 5. Congestive heart failure. 6. Hypertension. PLAN I discussed with the patient we will consult interventional radiology for thoracentesis. Continue antibiotics. Aerosol treatment. Supplemental oxygen. Further treatment will depend on the course in the hospital. Thank you Dr. Rommel Stevens for this consultation. MD LEISA Mosley/SOPHIA /5:29 PM /9:33 PM
[2016-07-21 22:20] VITALS: BP 157/73; PULSE 62; RESP 18; TEMP 97.9; O2SAT 93
--- NOTE | 2016-07-21 22:50 | EKG ---
Date Performed: 07/21/2016 Time Performed: 16:09:08 PTAGE: 75 years EKG: ATRIAL FIBRILLATION POSSIBLE RIGHT VENTRICULAR HYPERTROPHY NONSPECIFIC ST & T-WAVE ABNORMAL ITY ABNORMAL ECG PREVIOUS TRACING : 07/09/2016 19.26 Compared to prior tracing no significant change DOCTOR: Yung Seals Interpretating Date/Time 07/21/2016 22:50:22
[2016-07-21] MEDS: FENOFIBRATE 145 MG TAB PO SCH (23:17)
[2016-07-21] MEDS: ATORVASTATIN 10 MG TAB PO SCH (23:17)
[2016-07-21] MEDS: FERROUS SULFATE 325 MG (65 MG ELEMENTAL IRON) TAB PO SCH (23:18)
[2016-07-22] VITALS (12 sets, daily range): BP systolic 106–156; BP diastolic 55–82; PULSE 56–93; RESP 16–20; TEMP 97.1–99.7; O2SAT 93–98
[2016-07-22] MEDS: INSULIN DETEMIR 100 UNITS/ML VIAL SQ SCH ×2 (00:10→23:09)
[2016-07-22] MEDS: traZODone HCL 50 MG TAB PO SCH ×2 (00:10→23:08)
[2016-07-22] MEDS: DILTIAZEM HCL 90 MG TAB PO SCH ×4 (01:49→16:57)
[2016-07-22] MEDS: INSULIN ASPART SUPPLEMENTAL SCALE SQ SCH ×4 (06:28→21:00)
[2016-07-22] MEDS: LEVOTHYROXINE SODIUM 150 MCG TAB PO SCH (06:29)
[2016-07-22 07:16] LABS: AUTOMATED NEUTROPHIL # 17.5 TH/MM3 (1.8-7.7); BASOPHIL # 0.1 TH/MM3 (0-0.2); BASOPHIL % 0.6 % (0.0-2.0); EOSINOPHIL # 0.2 TH/MM3 (0-0.4); EOSINOPHIL % 1.2 % (0.0-4.0); HEMATOCRIT 30.8 % (35.0-46.0); LYMPH % 1.8 % (9.0-44.0); LYMPHOCYTE # 0.4 TH/MM3 (1.0-4.8); MEAN CELL VOLUME 74.4 FL (80.0-100.0); MEAN CORPUSCULAR HEMOGLOBIN 22.9 PG (27.0-34.0); MEAN CORPUSCULAR HGB CONC 30.7 % (32.0-36.0); MONO % 4.7 % (0.0-8.0); NEUT % 91.7 % (16.0-70.0); PLATELET COUNT 359 TH/MM3 (150-450); RED BLOOD COUNT 4.14 MIL/MM3 (4.00-5.30); RED CELL DISTRIBUTION WIDTH 23.8 % (11.6-17.2); WHITE BLOOD COUNT 19.1 TH/MM3 (4.0-11.0)
[2016-07-22 07:22] LABS: HEMO FLAGS AUTO DIFF
[2016-07-22 07:32] LABS: ALKALINE PHOSPHATASE 74 U/L (45-117); ALT (GPT) 22 U/L (10-53); ANION GAP 9 MEQ/L (5-15); AST (GOT) 40 U/L (15-37); BLOOD UREA NITROGEN 17 MG/DL (7-18); CHLORIDE 97 MEQ/L (98-107); GLOMERULAR FILTRATION RATE 43 ML/MIN (>89); POTASSIUM 3.5 MEQ/L (3.5-5.1); SODIUM (NA) 137 MEQ/L (136-145); TOTAL BILIRUBIN ADULT 0.6 MG/DL (0.2-1.0)
[2016-07-22 08:12] LABS: OVALOCYTES 1+ (NORMAL); PLATELET ESTIMATE SMEAR NORMAL (NORMAL); PLATELET MORPHOLOGY NORMAL (NORMAL); SCAN/DIFF AUTO DIFF CONFIRMED
--- NOTE | 2016-07-22 10:01 | RADRPT ---
EXAM DATE/TIME: 07/22/2016 09:47 [facility] COMPARISON: CT THORAX W/O CONTRAST, July 14, 2016, 13:34. CHEST EXPIRATION ONLY, July 14, 2016, 9:41. INDICATIONS : Post right thoracentesis MEDICAL HISTORY : Chronic obstructive pulmonary disease. SURGICAL HISTORY : Coronary artery stent. CABG. ENCOUNTER: Initial ACUITY: 2 days PAIN SCORE: 1/10 LOCATION: Right chest FINDINGS: Portable upright x-ray view of the chest demonstrates no pneumothorax following recent right thoracen tesis. There is residual atelectasis versus consolidation in the right lower lung zone and in the lef t lower lung zone. There is likely small left pleural effusion as well. CONCLUSION: No pneumothorax is present following recent right thoracentesis. No significant residual right pleura l fluid remains but there is residual atelectasis at the right lung base. There is a small left pleur al effusion with atelectasis and/or consolidation. Mango Hou MD on July 22, 2016 at 9:53 Board Certified Radiologist. This report was verified electronically.
[2016-07-22] MEDS: FERROUS SULFATE 325 MG (65 MG ELEMENTAL IRON) TAB PO SCH ×2 (12:16→23:06)
[2016-07-22] MEDS: SODIUM CHLORIDE 0.9% FLUSH 5 ML FLUSH FLUSH SCH ×2 (12:16→23:09)
[2016-07-22] MEDS: valACYclovir HCL 500 MG TAB PO SCH (12:16)
[2016-07-22] MEDS: POTASSIUM CHLORIDE 10 MEQ CONTROLLED RELEASE TAB PO SCH (12:17)
[2016-07-22] MEDS: LOSARTAN 50 MG TAB PO SCH (12:17)
[2016-07-22] MEDS: METOPROLOL TARTRATE 50 MG TAB PO SCH (12:17)
[2016-07-22] MEDS: BUMETANIDE 1 MG TAB PO SCH ×2 (12:17→16:56)
[2016-07-22] MEDS: PANTOPRAZOLE SOD 40 MG DELAYED RELEASE TAB PO SCH (12:17)
[2016-07-22] MEDS: DULoxetine HCl DR 60 MG CAP PO SCH (12:18)
--- NOTE | 2016-07-22 12:29 | RADRPT ---
EXAM DATE/TIME: 07/22/2016 09:01 [place] COMPARISON: CHEST EXPIRATION ONLY, July 22, 2016, 9:47. US GUIDED THORACENTESIS RIGHT, July 14, 2016, 9: 08. INDICATIONS : Right pleural effusion. MEDICAL HISTORY : Gastroesophageal reflux disease. Chronic obstructive pulmonary disease. Myocardial infarction. Hypoth yroidism. A-Fib. Diabetic SURGICAL HISTORY : Thoracentesis. CABG. Coronary stent. Back surgery. Gastric bypass. ENCOUNTER: Initial ACUITY: 3 weeks PAIN SCORE: 1/10 LOCATION: Right chest FLUID: Total volume of 1,300 cc of cloudy, red fluid was removed. Fluid was discarded. Thoracentesis was therapeutic only. TECHNIQUE: 1. Ultrasound guidance for thoracentesis. 2. Thoracentesis. The risks, benefits, and alternatives to ultrasound guided thoracentesis were explained to the patien t in lay simple terms, including the risk of bleeding and infection. Written and verbal informed con sent was obtained. Appropriate area for thoracentesis was marked under ultrasound guidance with the patient in the uprig ht position. Overlying skin was prepped and draped in the usual sterile fashion and with local anest hetic, a dermatotomy was made with an 11 blade scalpel. A 6 [place] thoracentesis catheter was placed in the pleural space and fluid was removed. Catheter was then removed and a sterile dressing applie d. There were no immediate complications. The patient tolerated the procedure well and the left the ultrasound suite in stable condition. Chest radiograph is to be obtained. CONCLUSION: Uncomplicated ultrasound guided right thoracentesis with removal of 1.3 L of fluid. Mango Hou MD on July 22, 2016 at 12:28 Board Certified Radiologist. This report was verified electronically.
--- NOTE | 2016-07-22 12:42 | HHI.PR ---
Subjective Remarks Follow-up right sided pleural effusion/shortness of breath/UTI 07/22/16-patient seen and examined, reports significant improvement or shortness of breath as patient is status post right sided thoracentesis. Afebrile Objective Vitals Vital Signs Date Time Temp Pulse Resp B/P Pulse Ox O2 Delivery O2 Flow Rate FiO2 07/22/16 10:39 89 19 154/82 98 07/22/16 10:24 98.0 74 18 156/78 97 07/22/16 09:52 98.4 74 20 127/65 93 07/22/16 08:49 99.0 93 16 142/70 93 07/22/16 08:00 Nasal Cannula 4.00 Humidified 07/22/16 08:00 99.7 75 16 148/70 94 07/22/16 04:00 97.4 66 17 145/75 94 07/22/16 00:00 97.1 64 18 145/79 94 07/21/16 22:20 97.9 62 18 157/73 93 07/21/16 22:00 Nasal Cannula 4.00 Humidified 07/21/16 20:21 77 20 165/67 96 Nasal Cannula 3 07/21/16 18:47 96 Nasal Cannula 3 07/21/16 18:42 73 18 170/67 95 Nasal Cannula 3 07/21/16 14:35 69 18 135/71 95 Nasal Cannula 3 07/21/16 14:35 93 Nasal Cannula 3 07/21/16 14:17 24 89 Nasal Cannula 3 07/21/16 14:17 89 Nasal Cannula 3 07/21/16 14:10 98.5 76 24 135/71 82 I/O 07/21/16 07/21/16 07/21/16 07/22/16 07/22/16 07/22/16 07:00 15:00 23:00 07:00 15:00 23:00 Intake Total 240 ml Output Total 200 ml Balance 40 ml Intake Oral 240 ml Output Urine Total 200 ml # Voids 1 Result Diagram: 07/22/1643 07/22/1643 Imaging Last Impressions Thoracentesis Ultrasound 07/22/16 06 Signed Impressions: Service Date/Time: June 09:01 - CONCLUSION: Uncomplicated ultrasound guided right thoracentesis with removal of 1.3 L of fluid. Mango Hou MD Chest X-Ray 07/22/16 0000 Signed Impressions: Service Date/Time: June 09:47 - CONCLUSION: No pneumothorax is present following recent right thoracentesis. No significant residual right pleural fluid remains but there is residual atelectasis at the right lung base. There is a small left pleural effusion with atelectasis and/ or consolidation. Mango Hou MD Objective Remarks GENERAL: NAD SKIN: Warm and dry. HEAD: Normocephalic. EYES: No scleral icterus. No injection or drainage. NECK: Supple, trachea midline. No JVD or lymphadenopathy. CARDIOVASCULAR: Regular rate and rhythm without murmurs, gallops, or rubs. RESPIRATORY: Breath sounds equal bilaterally. No accessory muscle use. GASTROINTESTINAL: Abdomen soft, non-tender, nondistended. MUSCULOSKELETAL: No cyanosis, or edema. BACK: Nontender without obvious deformity. No CVA tenderness. A/P Problem List: (1) Bilateral pleural effusion ICD Code: J90 Status: Acute (2) Lung infiltrate ICD Code: R91.8 Status: Acute (3) UTI (urinary tract infection) ICD Code: N39.0 Status: Acute (4) A-fib ICD Code: I48.91 Status: Acute (5) HTN (hypertension) ICD Code: I10 Status: Acute (6) Dyspnea ICD Code: R06.00 Status: Acute (7) Coronary artery disease ICD Code: I25.10 Status: Chronic (8) Hyperlipemia ICD Code: E78.5 Status: Chronic (9) Hypothyroidism ICD Code: E03.9 Status: Chronic (10) Hypertension ICD Code: I10 Status: Chronic (11) DM2 (diabetes mellitus, type 2) ICD Code: E11.9 Status: Chronic Assessment and Plan 75-year-old female with Pleural effusions along with HCAP - Patient hospitalized 4 times since open heart surgery in February 2016, most recent hospitalization 07/10/16 through the 2016 - Continue Levofloxacin 750 mg IV every 24 hours - Duonebs q4h PRN sob/wheezing - Appreciate input from Pulmonology - Status post ultrasound-guided thoracentesis with 1.3 L fluid 07/22/16 intervention radiology - Chest x-ray with finding of right large pleural effusion, small pleural effusion UTI: On Levaquin 750 IV daily pending urine culture CAD s/p stent and a recent CABG. Congestive heart failure Atrial fibrillation - Continue Bumex 1 mg by mouth twice a day - Continue Bumex, aspirin 81 mg Qday, atorvastatin 10 mg daily, diltiazem 90 mg every 6 hours, fenofibrate 140 mg daily, metoprolol 50 mg daily - Resume Erik Mild Acute kidney injury on CKD - Avoid nephrotoxins when possible - Creatinine has remained stable during hospitalization - Diabetes mellitus - - Continue Levemir and sliding scale insulin. Anemia. No gross bleeding - microcytic, hypochromic. Stable - Continue iron. Outpatient colonoscopy Anxiety - Xanax 0.25 mg by mouth every 8 hours when necessary Hypothyroidism - on levothyroxine 150 g by mouth daily. DVT prophylaxis: Bilateral SCDs; resume Rommel Kaplan MD Jul 22, 2016 12:42
--- NOTE | 2016-07-22 18:30 | HHI.PR ---
Subjective Remarks 75 YOWF with CAD,CABG, recurrent Pl eff Had TC,1.3 Lit fluid removed feels better Uses 02 No CP Objective Vital Signs Vital Signs Date Time Temp Pulse Resp B/P Pulse Ox O2 Delivery O2 Flow Rate FiO2 07/22/16 16:00 98.5 56 16 106/55 95 07/22/16 13:30 18 07/22/16 12:45 82 07/22/16 12:00 98.5 87 16 134/63 95 07/22/16 10:39 89 19 154/82 98 07/22/16 10:24 98.0 74 18 156/78 97 07/22/16 09:52 98.4 74 20 127/65 93 07/22/16 08:49 99.0 93 16 142/70 93 07/22/16 08:00 Nasal Cannula 4.00 Humidified 07/22/16 08:00 99.7 75 16 148/70 94 07/22/16 04:00 97.4 66 17 145/75 94 07/22/16 00:00 97.1 64 18 145/79 94 07/21/16 22:20 97.9 62 18 157/73 93 07/21/16 22:00 Nasal Cannula 4.00 Humidified 07/21/16 20:21 77 20 165/67 96 Nasal Cannula 3 07/21/16 18:47 96 Nasal Cannula 3 07/21/16 18:42 73 18 170/67 95 Nasal Cannula 3 I/O 07/21/16 07/21/16 07/21/16 07/22/16 07/22/16 07/22/16 07:00 15:00 23:00 07:00 15:00 23:00 Intake Total 240 ml 482 ml Output Total 200 ml Balance 40 ml 482 ml Intake Oral 240 ml 480 ml IV Total 2 ml Output Urine Total 200 ml # Voids 1 1 # Bowel Movements 0 Result Diagram: 07/22/1643 07/22/16 0643 Objective Remarks GENERAL: MBMN WF,NAD SKIN: Warm and dry. HEAD: Normocephalic. EYES: No scleral icterus. No injection or drainage. NECK: Supple, trachea midline. No JVD or lymphadenopathy. CARDIOVASCULAR: Regular rate and rhythm without murmurs, gallops, or rubs. RESPIRATORY: Breath sounds equal bilaterally. No accessory muscle use. GASTROINTESTINAL: Abdomen soft, non-tender, nondistended. MUSCULOSKELETAL: No cyanosis, or edema. BACK: Nontender without obvious deformity. No CVA tenderness. A/P Assessment and Plan Recurrent Pl effusion, s/p TC CHF CAD,s/p CABG DM PLAN: Diurease monitor BS Check pl fluid results Wean 02 Calixto Hall MD Jul 22, 2016 18:29
[2016-07-22] MEDS: FENOFIBRATE 145 MG TAB PO SCH (23:07)
[2016-07-22] MEDS: ATORVASTATIN 10 MG TAB PO SCH (23:09)
[2016-07-23] VITALS: BP 121/57; PULSE 73; RESP 18; TEMP 98.2; O2SAT 98
[2016-07-23] MEDS: DILTIAZEM HCL 90 MG TAB PO SCH ×2 (01:41→06:00)
[2016-07-23 04:00] VITALS: BP 120/62; PULSE 67; RESP 18; TEMP 98.1; O2SAT 97
[2016-07-23] MEDS: INSULIN ASPART SUPPLEMENTAL SCALE SQ SCH ×2 (06:06→11:00)
[2016-07-23 06:08] VITALS: PULSE 57
[2016-07-23] MEDS: LEVOTHYROXINE SODIUM 150 MCG TAB PO SCH (06:09)
[2016-07-23 08:00] VITALS: BP 130/77; PULSE 65; RESP 18; TEMP 98.1; O2SAT 97
[2016-07-23] MEDS ORDERED: LEVA500T PO (08:53)
--- NOTE | 2016-07-23 08:56 | HHI.PR ---
Subjective Remarks Follow-up right sided pleural effusion/shortness of breath/UTI 07/22/16-patient seen and examined, reports significant improvement or shortness of breath as patient is status post right sided thoracentesis. Afebrile 07/23/16-patient seen and examined; now with improvement of shortness of breath. UTI positive for MRSA however patient without any dysuria. Afebrile. Objective Vitals Vital Signs Date Time Temp Pulse Resp B/P Pulse Ox O2 Delivery O2 Flow Rate FiO2 07/23/16 08:06 Nasal Cannula 4.00 Humidified 07/23/16 06:08 57 07/23/16 04:00 98.1 67 18 120/62 97 07/23/16 00:00 98.2 73 18 121/57 98 07/22/16 21:00 71 07/22/16 20:00 97.9 67 18 138/60 98 07/22/16 20:00 Nasal Cannula 4.00 Humidified 07/22/16 16:00 98.5 56 16 106/55 95 07/22/16 13:30 18 07/22/16 12:45 82 07/22/16 12:00 98.5 87 16 134/63 95 07/22/16 10:39 89 19 154/82 98 07/22/16 10:24 98.0 74 18 156/78 97 07/22/16 09:52 98.4 74 20 127/65 93 I/O 07/22/16 07/22/16 07/22/16 07/23/16 07/23/16 07/23/16 07:00 15:00 23:00 07:00 15:00 23:00 Intake Total 240 ml 482 ml 240 ml 120 ml Output Total 200 ml 500 ml Balance 40 ml 482 ml 240 ml -380 ml Intake Oral 240 ml 480 ml 240 ml 120 ml IV Total 2 ml Output Urine Total 200 ml 500 ml # Voids 1 1 1 # Bowel Movements 0 0 0 Result Diagram: 07/22/1643 07/22/1643 Imaging Last Impressions Thoracentesis Ultrasound 07/22/16 0600 Signed Impressions: Service Date/Time: June 09:01 - CONCLUSION: Uncomplicated ultrasound guided right thoracentesis with removal of 1.3 L of fluid. aMngo Hou MD Chest X-Ray 07/22/16 0000 Signed Impressions: Service Date/Time: June 09:47 - CONCLUSION: No pneumothorax is present following recent right thoracentesis. No significant residual right pleural fluid remains but there is residual atelectasis at the right lung base. There is a small left pleural effusion with atelectasis and/ or consolidation. Mango Hou MD Objective Remarks GENERAL: NAD SKIN: Warm and dry. HEAD: Normocephalic. EYES: No scleral icterus. No injection or drainage. NECK: Supple, trachea midline. No JVD or lymphadenopathy. CARDIOVASCULAR: Regular rate and rhythm without murmurs, gallops, or rubs. RESPIRATORY: Breath sounds equal bilaterally. No accessory muscle use. GASTROINTESTINAL: Abdomen soft, non-tender, nondistended. MUSCULOSKELETAL: No cyanosis, or edema. BACK: Nontender without obvious deformity. No CVA tenderness. Procedures Ultrasound guided right thoracentesis A/P Problem List: (1) Bilateral pleural effusion ICD Code: J90 Status: Acute (2) Lung infiltrate ICD Code: R91.8 Status: Acute (3) UTI (urinary tract infection) ICD Code: N39.0 Status: Acute (4) A-fib ICD Code: I48.91 Status: Acute (5) HTN (hypertension) ICD Code: I10 Status: Acute (6) Dyspnea ICD Code: R06.00 Status: Acute (7) Coronary artery disease ICD Code: I25.10 Status: Chronic (8) Hyperlipemia ICD Code: E78.5 Status: Chronic (9) Hypothyroidism ICD Code: E03.9 Status: Chronic (10) Hypertension ICD Code: I10 Status: Chronic (11) DM2 (diabetes mellitus, type 2) ICD Code: E11.9 Status: Chronic Assessment and Plan 75-year-old female with Pleural effusions along with HCAP - Patient hospitalized 4 times since open heart surgery in February 2016, most recent hospitalization 07/10/16 through the 2016 - Continue Levofloxacin 750 mg IV every 24 hours however we'll switch to by mouth - Duonebs q4h PRN sob/wheezing - Appreciate input from Pulmonology - Status post ultrasound-guided thoracentesis with 1.3 L fluid 07/22/16 intervention radiology - Chest x-ray with finding of right large pleural effusion, small pleural effusion UTI-MRSA: On Levaquin 750 IV daily CAD s/p stent and a recent CABG. Congestive heart failure Atrial fibrillation - Continue Bumex 1 mg by mouth twice a day - Continue Bumex, aspirin 81 mg Qday, atorvastatin 10 mg daily, diltiazem 90 mg every 6 hours, fenofibrate 140 mg daily, metoprolol 50 mg daily - on Xarelcatalina Mild Acute kidney injury on CKD - Avoid nephrotoxins when possible - Creatinine has remained stable during hospitalization - Diabetes mellitus - - Continue Levemir and sliding scale insulin. Anemia. No gross bleeding - microcytic, hypochromic. Stable - Continue iron. Outpatient colonoscopy Anxiety - Xanax 0.25 mg by mouth every 8 hours when necessary Hypothyroidism - on levothyroxine 150 g by mouth daily. DVT prophylaxis: Bilateral SCDs; Rommel Kaplan MD Jul 23, 2016 08:56
--- NOTE | 2016-07-23 08:57 | HHI.FF ---
Face to Face Verification Diagnosis: (1) PNA (pneumonia) (2) A-fib (3) HTN (hypertension) (4) Pleural effusion (5) Atrial fibrillation (6) Respiratory failure, acute (7) UTI (urinary tract infection) Physical Therapy Order: Evaluate and Treat Home Health Nursing Order: Signs/symptoms of disease process I have seen patient Lorenza Garcia on 07/23/16. My clinical findings support the need for the requested home health care services because: Patient has SOB Deconditioned w/ increased weakness I certify that my clinical findings support that this patient is homebound because: Poor cardiac reserve Rommel Stevens MD Jul 23, 2016 08:57
--- NOTE | 2016-07-23 08:58 | HHI.DS ---
Discharge Summary Admission Date Jul 21, 2016 at 16:29 Discharge Date: Jul 23, 2016 Admitting Diagnosis hypoxia, shortness of breath, pleural effusion (1) Bilateral pleural effusion ICD Code: J90 (2) Lung infiltrate ICD Code: R91.8 (3) UTI (urinary tract infection) ICD Code: N39.0 (4) A-fib ICD Code: I48.91 (5) HTN (hypertension) ICD Code: I10 (6) Dyspnea ICD Code: R06.00 (7) Coronary artery disease ICD Code: I25.10 (8) Hyperlipemia ICD Code: E78.5 (9) Hypothyroidism ICD Code: E03.9 (10) Hypertension ICD Code: I10 (11) DM2 (diabetes mellitus, type 2) ICD Code: E11.9 Procedures Ultrasound guided right thoracentesis Brief History - From Admission 75-year-old female with a past history of hypothyroidism, coronary artery disease status post stent placement 2007 and coronary artery bypass graft 01 March 2016, congestive heart failure, hyperlipidemia, atrial fibrillation on Xarelto, hypertension, COPD, and GERD who presents to the emergency room on 07/21 complaining of difficulty breathing for a duration of 3 days with increasing home oxygen requirements.Patient hospitalized 4 times since open heart surgery in February 2016, most recent hospitalization 07/10/16 through during which patient had thoracentesis with 600 cc removed on 07/14/16. She states she's been compliant with for medical care. She denies any dysuria, febrile episode or chest pain. CBC/BMP: 07/22/16 0643 07/22/16 0643 Significant Findings Laboratory Tests Test 07/21/16 07/21/16 07/21/16 07/22/16 14:20 15:50 16:40 06:43 Chloride Level 96 MEQ/L 97 MEQ/L (98-107) (98-107) Creatinine 1.20 MG/DL 1.22 MG/DL (0.50-1.00) (0.50-1.00) Estimat Glomerular Filtration 44 ML/MIN (>89) 43 ML/MIN (>89) Rate Troponin I 0.25 NG/ML (0.02-0.05) B-Type Natriuretic Peptide 342 PG/ML (0-100) Albumin 3.1 GM/DL 2.7 GM/DL (3.4-5.0) (3.4-5.0) White Blood Count 12.8 TH/MM3 19.1 TH/MM3 (4.0-11.0) (4.0-11.0) Hemoglobin 9.3 GM/DL 9.5 GM/DL (11.6-15.3) (11.6-15.3) Hematocrit 30.7 % 30.8 % (35.0-46.0) (35.0-46.0) Mean Corpuscular Volume 73.0 FL 74.4 FL (80.0-100.0) (80.0-100.0) Mean Corpuscular Hemoglobin 22.1 PG 22.9 PG (27.0-34.0) (27.0-34.0) Mean Corpuscular Hemoglobin 30.2 % 30.7 % Concent (32.0-36.0) (32.0-36.0) Red Cell Distribution Width 23.9 % 23.8 % (11.6-17.2) (11.6-17.2) Neutrophils (%) (Auto) 84.8 % 91.7 % (16.0-70.0) (16.0-70.0) Lymphocytes (%) (Auto) 6.5 % 1.8 % (9.0-44.0) (9.0-44.0) Neutrophils # (Auto) 10.9 TH/MM3 17.5 TH/MM3 (1.8-7.7) (1.8-7.7) Lymphocytes # (Auto) 0.8 TH/MM3 0.4 TH/MM3 (1.0-4.8) (1.0-4.8) Ovalocytes 1+ (NORMAL) 1+ (NORMAL) Urine Protein 30 mg/dL (NEG-TRACE) Urine Leukocyte Esterase LARGE (NEG) Urine RBC 4 /hpf (0-3) Urine WBC 10 /hpf (0-5) Urine Bacteria RARE /hpf (NONE) Urine Mucus FEW /lpf (OCC) Prothrombin Time 15.5 SEC (9.8-11.6) Activated Partial 39.2 SEC Thromboplast Time (24.3-30.1) Random Glucose 115 MG/DL (74-106) Aspartate Amino Transf 40 U/L (15-37) (AST/SGOT) Imaging Last Impressions Thoracentesis Ultrasound 07/22/16 0600 Signed Impressions: Service Date/Time: June 09:01 - CONCLUSION: Uncomplicated ultrasound guided right thoracentesis with removal of 1.3 L of fluid. Mango Hou MD Chest X-Ray 07/22/16 0000 Signed Impressions: Service Date/Time: June 09:47 - CONCLUSION: No pneumothorax is present following recent right thoracentesis. No significant residual right pleural fluid remains but there is residual atelectasis at the right lung base. There is a small left pleural effusion with atelectasis and/ or consolidation. Mango Hou MD PE at Discharge GENERAL: NAD SKIN: Warm and dry. HEAD: Normocephalic. EYES: No scleral icterus. No injection or drainage. NECK: Supple, trachea midline. No JVD or lymphadenopathy. CARDIOVASCULAR: Regular rate and rhythm without murmurs, gallops, or rubs. RESPIRATORY: Breath sounds equal bilaterally. No accessory muscle use. GASTROINTESTINAL: Abdomen soft, non-tender, nondistended. MUSCULOSKELETAL: No cyanosis, or edema. BACK: Nontender without obvious deformity. No CVA tenderness. Hospital Course Patient was admitted and diagnosed with UTI for which she was started on antibiotics and continue treatment for pneumonia. Pulmonary medicine was consulted secondary to bilateral pleural effusions however right larger than the left, for which she had ultrasound-guided thoracentesis with 1.3 L fluid removal on fibrillatory 07/19/16 by interventional radiology. Her respiratory symptoms improved . Prior to discharge, she was switched to by mouth Levaquin as her urine grew Klebsiella pneumonia. Physical therapy was consulted and She was continued on treatment for other chronic medical conditions. DVT and GI prophylaxis were provided. Pt Condition on Discharge: Stable Discharge Disposition: Disch w/ Home Health Serv Discharge Time: > 30 minutes Discharge Instructions DIET: Follow Instructions for: Heart Healthy Diet, Diabetic Diet Activities you can perform: Regular-No Restrictions Follow up Referrals: PCP Follow-up - 1 Week New Medications: Levofloxacin (Levaquin) 500 Mg Tab 500 MG PO DAILY Infection #5 Ref 0 TAB Continued Medications: Alprazolam (Xanax) 0.25 Mg Tab 0.25 MG PO Q8HR PRN anxiety Days 30 TAB Aspirin (Aspirin Low Strength) 81 Mg Chew 81 MG PO DAILY Days 30 EA Atorvastatin (Lipitor) 10 Mg Tab 10 MG PO HS Days 30 TAB Bumetanide (Bumetanide) 1 Mg Tab 1 MG PO BID@09,18 Prevent Heart Failure #60 TAB Cyanocobalamin Inj (Cyanocobalamin Inj) 1,000 Mcg/Ml Inj 1000 MCG IM EVERY 2 WEEKS #1 Ref 0 VIAL Diltiazem (Diltiazem) 90 Mg Tab 90 MG PO q6 hr Angina #120 Ref [address] (Dul[address]) 60 Mg Capdr 120 MG PO DAILY Days 30 CAP Ergocalciferol (Drisdol) 50,000 Unit Cap 07072 UNITS PO WEEKLY ON MONDAYS Nutritional Supplement #30 Ref 0 CAP Fenofibrate (Fenofibrate) 160 Mg Tab 160 MG PO HS #30 Ref 0 TAB Ferrous Sulfate (Ferrous Sulfate) 325 Mg Tab 325 MG PO BID Build Red Blood Cells #60 TAB Insulin Aspart Inj (Novolog Inj) 1,000 Unit/10 Ml Vial 2-10 UNITS SQ ACHS Sliding Scale Blood Sugar Management #10 Ref 0 ML Insulin Glargine Inj (Lantus Inj) 100 Unit/Ml Inj 17 UNITS SQ HS Lactobacillus Acidophilus (Acidophilus/l-Sporogenes) 1 Tab Tab 1 TAB PO TID Bowel Management #90 TAB Levothyroxine (Levothyroxine) 150 Mcg Tab 150 MCG PO DAILY@0600 Thyroid #30 Ref 0 TAB Losartan (Losartan) 50 Mg Tab 50 MG PO DAILY Blood Pressure Management #30 Ref 0 TAB Meloxicam (Meloxicam) 7.5 Mg Tab 7.5 MG PO DAILY Arthritis Pain Ref 0 TAB Metoprolol Tartrate (Metoprolol Tartrate) 50 Mg Tab 50 MG PO DAILY #30 Ref 0 TAB Multiple Vitamins W/ Minerals (Thera M Plus) 1 Tab 1 TAB PO DAILY Days 30 TAB Nitroglycerin SL (Nitroglycerin SL) 0.4 Mg Subl 0.4 MG SL DIRECTED ONE TABLET UNDER THE TONGUE NEEDED FOR CHEST PAIN, MAY REPEAT EVERY FIVE MINUTES FOR A TOTAL OF 3 DOSES OR CALL 911 IF NO RELIEF PRN CHEST PAIN #100 Ref 0 TAB.SL Pantoprazole (Pantoprazole) 40 Mg Tab 40 MG PO DAILY Days 30 TAB Potassium Chloride ER (Klor-Con 10) 10 Meq Tab 10 MEQ PO DAILY Days 7 TAB Rivaroxaban (Xarelto) 15 Mg Tab 15 MG PO DAILY Blood Clot Prevention #30 Ref 2 TAB Trazodone (Trazodone) 50 Mg Tab 50 MG PO HS Days 30 TAB Valacyclovir (Valtrex) 1 Gm Tab 1 GM PO DAILY Mgmt Viral Infection #30 Ref 0 TAB Discontinued Medications: Levofloxacin (Levaquin) 250 Mg Tab 250 MG PO DAILY@11 Infection #5 TAB Rommel Stevens MD Jul 23, 2016 08:58 Losartan (Losartan) 50 Mg Tab 50 MG PO DAILY Blood Pressure Management #30 Ref 0 TAB Meloxicam (Meloxicam) 7.5 Mg Tab 7.5 MG PO DAILY Arthritis Pain Ref 0 TAB Metoprolol Tartrate (Metoprolol Tartrate) 50 Mg Tab 50 MG PO DAILY #30 Ref 0 TAB Multiple Vitamins W/ Minerals (Thera M Plus) 1 Tab 1 TAB PO DAILY Days 30 TAB Nitroglycerin SL (Nitroglycerin SL) 0.4 Mg Subl 0.4 MG SL DIRECTED ONE TABLET UNDER THE TONGUE NEEDED FOR CHEST PAIN, MAY REPEAT EVERY FIVE MINUTES FOR A TOTAL OF 3 DOSES OR CALL 911 IF NO RELIEF PRN CHEST PAIN #100 Ref 0 TAB.SL Pantoprazole (Pantoprazole) 40 Mg Tab 40 MG PO DAILY Days 30 TAB Potassium Chloride ER (Klor-Con 10) 10 Meq Tab 10 MEQ PO DAILY Days 7 TAB Rivaroxaban (Xarelto) 15 Mg Tab 15 MG PO DAILY Blood Clot Prevention #30 Ref 2 TAB Trazodone (Trazodone) 50 Mg Tab 50 MG PO HS Days 30 TAB Valacyclovir (Valtrex) 1 Gm Tab 1 GM PO DAILY Mgmt Viral Infection #30 Ref 0 TAB Discontinued Medications: Levofloxacin (Levaquin) 250 Mg Tab 250 MG PO DAILY@11 Infection #5 TAB Rommel Stevens MD Jul 23, 2016 08:58
[2016-07-23 09:00] VITALS: O2SAT 98
[2016-07-23] MEDS ORDERED: RIVAROXABAN 15 MG TAB PO SCH (09:00)
[2016-07-23] MEDS: valACYclovir HCL 500 MG TAB PO SCH (09:05)
[2016-07-23] MEDS: SODIUM CHLORIDE 0.9% FLUSH 5 ML FLUSH FLUSH SCH (09:05)
[2016-07-23] MEDS: PANTOPRAZOLE SOD 40 MG DELAYED RELEASE TAB PO SCH (09:06)
[2016-07-23] MEDS: POTASSIUM CHLORIDE 10 MEQ CONTROLLED RELEASE TAB PO SCH (09:06)
[2016-07-23] MEDS: METOPROLOL TARTRATE 50 MG TAB PO SCH (09:06)
[2016-07-23] MEDS: FERROUS SULFATE 325 MG (65 MG ELEMENTAL IRON) TAB PO SCH (09:06)
[2016-07-23] MEDS: LOSARTAN 50 MG TAB PO SCH (09:06)
[2016-07-23] MEDS: BUMETANIDE 1 MG TAB PO SCH (09:06)
[2016-07-23] MEDS: DULoxetine HCl DR 60 MG CAP PO SCH (09:06)
--- NOTE | 2016-07-23 11:35 | HHI.PR ---
Subjective Remarks 75 YOWF with CAD,CABG, recurrent Pl eff Had TC,1.3 Lit fluid removed feels better Uses 02 No CP Has MRSA UTI Objective Vital Signs Vital Signs Date Time Temp Pulse Resp B/P Pulse Ox O2 Delivery O2 Flow Rate FiO2 07/23/16 08:06 Nasal Cannula 4.00 Humidified 07/23/16 08:00 98.1 65 18 130/77 97 07/23/16 06:08 57 07/23/16 04:00 98.1 67 18 120/62 97 07/23/16 00:00 98.2 73 18 121/57 98 07/22/16 21:00 71 07/22/16 20:00 97.9 67 18 138/60 98 07/22/16 20:00 Nasal Cannula 4.00 Humidified 07/22/16 16:00 98.5 56 16 106/55 95 07/22/16 13:30 18 07/22/16 12:45 82 07/22/16 12:00 98.5 87 16 134/63 95 I/O 07/22/16 07/22/16 07/22/16 07/23/16 07/23/16 07/23/16 07:00 15:00 23:00 07:00 15:00 23:00 Intake Total 240 ml 482 ml 240 ml 120 ml Output Total 200 ml 500 ml Balance 40 ml 482 ml 240 ml -380 ml Intake Oral 240 ml 480 ml 240 ml 120 ml IV Total 2 ml Output Urine Total 200 ml 500 ml # Voids 1 1 1 # Bowel Movements 0 0 0 Result Diagram: 07/22/1643 07/22/16 0643 Objective Remarks GENERAL: MBMN WF,NAD SKIN: Warm and dry. HEAD: Normocephalic. EYES: No scleral icterus. No injection or drainage. NECK: Supple, trachea midline. No JVD or lymphadenopathy. CARDIOVASCULAR: Regular rate and rhythm without murmurs, gallops, or rubs. RESPIRATORY: Breath sounds equal bilaterally. No accessory muscle use. GASTROINTESTINAL: Abdomen soft, non-tender, nondistended. MUSCULOSKELETAL: No cyanosis, or edema. BACK: Nontender without obvious deformity. No CVA tenderness. A/P Assessment and Plan Recurrent Pl effusion, s/p TC CHF CAD,s/p CABG DM PLAN: Diurease monitor BS Check pl fluid results Wean 02 Stable from pulm standpoint Will FU in office08/03/2016 Calixto Hall MD Jul 23, 2016 11:35
[2016-07-23 12:14] LABS: AUTOMATED NEUTROPHIL # 8.5 TH/MM3 (1.8-7.7); BASOPHIL # 0.1 TH/MM3 (0-0.2); BASOPHIL % 0.6 % (0.0-2.0); EOSINOPHIL # 0.1 TH/MM3 (0-0.4); EOSINOPHIL % 1.1 % (0.0-4.0); HEMATOCRIT 29.3 % (35.0-46.0); LYMPH % 4.6 % (9.0-44.0); LYMPHOCYTE # 0.4 TH/MM3 (1.0-4.8); MEAN CORPUSCULAR HEMOGLOBIN 22.8 PG (27.0-34.0); MEAN CORPUSCULAR HGB CONC 30.8 % (32.0-36.0); MONO % 6.4 % (0.0-8.0); NEUT % 87.3 % (16.0-70.0); PLATELET COUNT 421 TH/MM3 (150-450); RED BLOOD COUNT 3.96 MIL/MM3 (4.00-5.30); RED CELL DISTRIBUTION WIDTH 23.7 % (11.6-17.2); WHITE BLOOD COUNT 9.8 TH/MM3 (4.0-11.0)
[2016-07-23 12:19] LABS: HEMO FLAGS AUTO DIFF
[2016-07-23 12:31] LABS: BICARBONATE 31.6 MEQ/L (21.0-32.0); POTASSIUM 3.6 MEQ/L (3.5-5.1)
[2016-07-23 12:58] LABS: OVALOCYTES 1+ (NORMAL); SCAN/DIFF AUTO DIFF CONFIRMED
== END 2016-07-23 11:43 | disposition home health service (06) | DRG 190 ==
LOC: NEPC 13:40 → NEDA 16:29 → NEDH 20:36 → N04A 21:47
PROVIDERS: ADMIT Hospitalist; ATTEND Hospitalist
PROC: 0W993ZZ Drainage of Right Pleural Cavity, Percutaneous Approach (ICD-10-PCS; principal; 2016-07-22)
DX: J44.0 Chronic obstructive pulmonary disease with (acute) lower respiratory infection (principal); J18.9 Pneumonia, unspecified organism; J91.8 Pleural effusion in other conditions classified elsewhere; N17.9 Acute kidney failure, unspecified; N39.0 Urinary tract infection, site not specified; B95.62 Methicillin resistant Staphylococcus aureus infection as the cause of diseases classified elsewhere; E11.22 Type 2 diabetes mellitus with diabetic chronic kidney disease; I50.9 Heart failure, unspecified; Z99.81 Dependence on supplemental oxygen; I48.91 Unspecified atrial fibrillation; I12.9 Hypertensive chronic kidney disease with stage 1 through stage 4 chronic kidney disease, or unspecified chronic kidney disease; N18.9 Chronic kidney disease, unspecified; Z79.4 Long term (current) use of insulin; Z79.02 Long term (current) use of antithrombotics/antiplatelets; Z79.82 Long term (current) use of aspirin; I25.10 Atherosclerotic heart disease of native coronary artery without angina pectoris; Z95.5 Presence of coronary angioplasty implant and graft; Z95.1 Presence of aortocoronary bypass graft; I25.2 Old myocardial infarction; E78.5 Hyperlipidemia, unspecified; E03.9 Hypothyroidism, unspecified; K21.9 Gastro-esophageal reflux disease without esophagitis; Z98.84 Bariatric surgery status; D64.9 Anemia, unspecified; F41.9 Anxiety disorder, unspecified; Z87.891 Personal history of nicotine dependence
CPT/HCPCS: 32555; 71010; 80048; 80053; 81001; 82948; 83735; 83880; 84484; 85025; 85610; 85730; 86403; 87086; 87147; 87186; 93005; C1729; J1815; J1956

== ENCOUNTER 2016-09-14 19:35 | Inpatient (IN) | payer OTHER ==
[~2016-09-14] VITALS: Ht 157.5 cm; Wt 60.0 kg
[~2016-09-14 19:35] MED LIST changes: -LEVA250T PO; +LEVA500T PO
[2016-09-14 19:37] VITALS: BP 200/80; PULSE 60; RESP 20; TEMP 98.8; O2SAT 90
--- NOTE | 2016-09-14 20:27 | PD ---
HPI Chief Complaint: Respiratory Symptoms Time Seen by Provider: 20:23 Travel History International Travel<30 days: No Contact w/Intl Traveler<30days: No Traveled to known affect area: No History of Present Illness HPI 75-year-old female that presents to the ED for evaluation of shortness of breath. Patient has a chronic history of CABG, COPD as well as CHF with pleural effusions in the past needing 5 thoracocentesis in the past. Patient reports that for the past 3 days she's been having shortness of breath. Per patient is started on Tuesday. Per patient it happens when she exerts herself. Otherwise she has minimal discomfort. Per patient she went to see her doctor today Dr. Barger who evaluated her and because of her history recommended that she comes here. She denies any chest pain. She denies any headache. No blurry vision or double vision. No abdominal pain. No nausea or vomiting. No urinary symptoms. Per patient this feels somewhat similar to her previous pleural effusions. She usually uses oxygen at home and states that even with the oxygen he still feels short of breath with exertion. He has a history of smoking in the past. Does not longer smoke. Follows with Dr. Roth for cardiology. She's tried inhalers as well with minimal relief. PFSH Past Medical History Hx Anticoagulant Therapy: Yes Arthritis: Yes Asthma: No Atrial Fibrillation: Yes Autoimmune Disease: No Anxiety: Yes Depression: Yes Heart Rhythm Problems: Yes (A Fib) Cancer: No Cardiac Catheterization: Yes Cardiovascular Problems: Yes (IN, HTN, CHF) High Cholesterol: Yes Chemotherapy: No Chest Pain: No Congestive Heart Failure: Yes COPD: Yes Cerebrovascular Accident: No Coronary Artery Disease: Yes Diabetes: Yes Patient Takes Glucophage: No Diminished Hearing: Yes Endocrine: Yes Gastrointestinal Disorders: Yes GERD: Yes Genitourinary: No Hiatal Hernia: Yes Heparin Induced Thrombocytopen: No Hypertension: Yes Immune Disorder: No Kidney Stones: No Musculoskeletal: Yes Neurologic: Yes Psychiatric: Yes Reproductive: No Respiratory: Yes Migraines: No Pneumonia: Yes Radiation Therapy: No Renal Failure: No Seizures: No Sickle Cell Disease: No Sleep Apnea: Yes Thyroid Disease: Yes (Hypothyroid) Ulcer: Yes Tetanus Vaccination: Unknown Past Surgical History Abdominal Surgery: Yes (gastric bypass 2009) AICD: No Arteriovenous Shunt: No Body Medical Devices: CHEST CLOSURE Cardiac Surgery: Yes (IN 2008 stent, CABG X 3 03/15/16) Coronary Artery Bypass Graft: Yes (X3 February 2016) Coronary Stent: Yes (X`1) Ear Surgery: No Endocrine Surgery: No Eye Surgery: Yes (bilateral cataract sx) Genitourinary Surgery: No Gynecologic Surgery: No Insulin Pump: No Joint Replacement: No Neurologic Surgery: No Oral Surgery: Yes (teeth extraction, wisdom) Pacemaker: No Thoracic Surgery: No Other Surgery: Yes Social History Alcohol Use: Yes (RARE) Tobacco Use: No Substance Use: No Allergies-Medications (Allergen,Severity, Reaction): Coded Allergies: Erythromycin (Verified Allergy, Unknown, 09/14/16) Lasix (Verified Allergy, Unknown, 09/14/16) Penicillin (Verified Allergy, Unknown, 09/14/16) *MDRO Multi-Drug Resistant Organism (Verified Adverse Reaction, Unknown, ) MRSA (urine)-07/21/16 Reported Meds & Prescriptions Reported Meds & Active Scripts Active Levaquin (Levofloxacin) 500 Mg Tab 500 Mg PO DAILY Losartan (Losartan Potassium) 50 Mg Tab 50 Mg PO DAILY Xarelto (Rivaroxaban) 15 Mg Tab 15 Mg PO DAILY Acidophilus/l-Sporogenes (Lactobacillus Acidophilus) 1 Tab Tab 1 Tab PO TID Ferrous Sulfate 325 Mg Tab 325 Mg PO BID Oxygen tank (Oxygen) 1 Ea Tank 2 Liter JUANJOSE.CANULA CONTINUOUS Oxygen Concentrator Portable Gaseous 2 L/min via Nasal Cannula Continuous For 99 months Bumetanide 1 Mg Tab 1 Mg PO BID@,18 Trazodone (Trazodone HCl) 50 Mg Tab 50 Mg PO HS 30 Days Klor-Con 10 (Potassium Chloride) 10 Meq Tab 10 Meq PO DAILY 7 Days Pantoprazole (Pantoprazole Sodium) 40 Mg Tab 40 Mg PO DAILY 30 Days Thera M Plus (Multivitamins/Minerals Therapeutic) 1 Tab 1 Tab PO DAILY [address] (Duloxetine HCl) 60 Mg Capdr 120 Mg PO DAILY 30 Days Lipitor (Atorvastatin Calcium) 10 Mg Tab 10 Mg PO HS 30 Days Aspirin Low Strength (Aspirin) 81 Mg Chew 81 Mg PO DAILY 30 Days Xanax (Alprazolam) 0.25 Mg Tab 0.25 Mg PO Q8HR PRN 30 Days Reported Metoprolol Tartrate 50 Mg Tab 50 Mg PO DAILY Meloxicam 7.5 Mg Tab 7.5 Mg PO DAILY Diltiazem (Diltiazem HCl) 90 Mg Tab 90 Mg PO Q6 HR Novolog Inj (Insulin Aspart) 1,000 Unit/10 Ml Vial 2-10 Units SQ ACHS Sliding Scale Nitroglycerin SL (Nitroglycerin) 0.4 Mg Subl 0.4 Mg SL DIRECTED PRN ONE TABLET UNDER THE TONGUE NEEDED FOR CHEST PAIN, MAY REPEAT EVERY FIVE MINUTES FOR A TOTAL OF 3 DOSES OR CALL 911 IF NO RELIEF Valtrex (Valacyclovir HCl) 1 Gm Tab 1 Gm PO DAILY Drisdol (Ergocalciferol) 50,000 Unit Cap 50,000 Units PO WEEKLY ON MONDAYS Cyanocobalamin Inj (Cyanocobalamin) 1,000 Mcg/Ml Inj 1,000 Mcg IM EVERY 2 WEEKS Lantus Inj (Insulin Glargine) 100 Unit/Ml Inj 17 Units SQ HS Levothyroxine (Levothyroxine Sodium) 150 Mcg Tab 150 Mcg PO DAILY@0600 Fenofibrate 160 Mg Tab 160 Mg PO HS Review of Systems Except as stated in HPI: all other systems reviewed are Neg Physical Exam Narrative GENERAL: SKIN: Warm and dry. HEAD: Atraumatic. Normocephalic. EYES: Pupils equal and round. No scleral icterus. No injection or drainage. ENT: No nasal bleeding or discharge. Mucous membranes pink and moist. Tongue is midline. No uvula deviation. NECK: Trachea midline. No JVD. CARDIOVASCULAR: Regular rate and rhythm. No murmurs, S3, S4. RESPIRATORY: No accessory muscle use. Diminished breath sounds especially on the right lower lung. Breath sounds equal bilaterally. GASTROINTESTINAL: Abdomen soft, non-tender, nondistended. Hepatic and splenic margins not palpable. MUSCULOSKELETAL: Extremities without clubbing, cyanosis, or edema. No obvious deformities. Full range of motion of the upper and lower extremities bilaterally. 2+ pulses bilaterally. NEUROLOGICAL: Awake and alert. No obvious cranial nerve deficits. Motor grossly within normal limits. Five out of 5 muscle strength in the arms and legs. Normal speech. PSYCHIATRIC: Appropriate mood and affect; insight and judgment normal. Data Data Last Documented VS Vital Signs Date Time Temp Pulse Resp B/P Pulse Ox O2 Delivery O2 Flow Rate FiO2 09/14/16 21:28 63 20 190/79 98 Nasal Cannula 2 09/14/16 19:37 98.8 Orders Electrocardiogram (09/14/16 20:11) Basic Metabolic Panel (Bmp) (09/14/16 20:11) Complete Blood Count With Diff (09/14/16 20:11) Chest, Single Ap (09/14/16 20:11) Ecg Monitoring (09/14/16 20:11) Iv Access Insert/Monitor (09/14/16 20:11) Oximetry (09/14/16 20:11) Oxygen Administration (09/14/16 20:11) B-Type Natriuretic Peptide (09/14/16 20:11) Methylprednisolone So Succ Inj (Solumedr (09/14/16 20:30) Albuterol-Ipratropium Neb (Duoneb Neb) (09/14/16 20:30) Admit Order (Ed Use Only) (09/14/16 21:55) Labs Laboratory Tests Test 09/14/16 20:20 White Blood Count 8.1 TH/MM3 Red Blood Count 3.90 MIL/MM3 Hemoglobin 10.6 GM/DL Hematocrit 32.5 % Mean Corpuscular Volume 83.3 FL Mean Corpuscular Hemoglobin 27.3 PG Mean Corpuscular Hemoglobin 32.7 % Concent Red Cell Distribution Width 18.2 % Platelet Count 423 TH/MM3 Mean Platelet Volume 8.6 FL Neutrophils (%) (Auto) 81.4 % Lymphocytes (%) (Auto) 9.8 % Monocytes (%) (Auto) 6.2 % Eosinophils (%) (Auto) 1.2 % Basophils (%) (Auto) 1.4 % Neutrophils # (Auto) 6.6 TH/MM3 Lymphocytes # (Auto) 0.8 TH/MM3 Monocytes # (Auto) 0.5 TH/MM3 Eosinophils # (Auto) 0.1 TH/MM3 Basophils # (Auto) 0.1 TH/MM3 CBC Comment DIFF FINAL Differential Comment Sodium Level 140 MEQ/L Potassium Level 4.5 MEQ/L Chloride Level 97 MEQ/L Carbon Dioxide Level 35.9 MEQ/L Anion Gap 7 MEQ/L Blood Urea Nitrogen 27 MG/DL Creatinine 1.52 MG/DL Estimat Glomerular Filtration 34 ML/MIN Rate Random Glucose 172 MG/DL Calcium Level 9.3 MG/DL B-Type Natriuretic Peptide 275 PG/ML MDM Medical Decision Making Medical Screen Exam Complete: Yes Emergency Medical Condition: Yes Medical Record Reviewed: Yes Interpretation(s) CBC & BMP Diagram 09/14/16 20:20 Last Impressions Chest X-Ray 09/14/162010 Signed Impressions: Service Date/Time: Wednesday, September 14, 2016 20:15 - CONCLUSION: Cardiomegaly with mild edema pattern, basilar consolidation and right greater than left pleural effusions most characteristic of congestive heart failure that is similar in appearance to June. Frank Azul MD BNP in the 200s Differential Diagnosis Shortness of breath versus pleural effusion versus atrial fibrillation versus CHF versus CHF exacerbation versus pneumonia versus COPD exacerbation Narrative Course 75-year-old female that presents to the ED for evaluation of shortness of breath with exertion. Patient was properly examined and was found to have signs and symptoms consistent with appears to be possible pleural effusion. This time I recommend labs and imaging. Patient is in agreement with this. Patient was medicated. Labs and imaging showed pleural effusions as well as CHF exacerbation. Patient was told results. This time I do recommend admission for therapeutic thoracocentesis. Partially patient will have to wait to get thoracocentesis secondary to taking Xarelto. I spoke with Dr. Nebsitt who agrees to admission. Patient was admitted. Procedures EKG Prior to Arrival: No Diagnosis Primary Impression: Pleural effusion Additional Impression: CHF exacerbation Qualified Code: I50.9 - Acute on chronic congestive heart failure, unspecified congestive heart failure type Admitting Information Admitting Physician Requests: Observation Galo Bailey Sep 14, 2016 20:27
[2016-09-14] MEDS ORDERED: methylPREDNISolone SOD SUCC 125 MG/2 ML VIAL IVP ONE (20:30)
--- NOTE | 2016-09-14 20:30 | PD ---
Physical Exam Narrative Patient was seen and examined with my anesthesiology physician assistant. Data Data Last Documented VS Vital Signs Date Time Temp Pulse Resp B/P Pulse Ox O2 Delivery O2 Flow Rate FiO2 09/14/16 19:37 98.8 60 20 200/80 90 Nasal Cannula 3 Orders Electrocardiogram (09/14/16 20:11) Basic Metabolic Panel (Bmp) (09/14/16 20:11) Complete Blood Count With Diff (09/14/16 20:11) Chest, Single Ap (09/14/16 20:11) Ecg Monitoring (09/14/16 20:11) Iv Access Insert/Monitor (09/14/16 20:11) Oximetry (09/14/16 20:11) Oxygen Administration (09/14/16 20:11) B-Type Natriuretic Peptide (09/14/16 20:11) Methylprednisolone So Succ Inj (Solumedr (09/14/16 20:30) Albuterol-Ipratropium Neb (Duoneb Neb) (09/14/16 20:30) MDM Supervised Visit with MIKE: Yes Hai Ann MD Sep 14, 2016 20:30
[2016-09-14] MEDS: RESP: ALBUTEROL 2.5 MG/IPRATROPIUM 0.5 MG NEB (SCH) INH (20:32)
[2016-09-14 20:33] VITALS: O2SAT 99
[2016-09-14 20:35] VITALS: BP 198/80; PULSE 60; RESP 24; O2SAT 90
[2016-09-14 20:52] LABS: AUTOMATED NEUTROPHIL # 6.6 TH/MM3 (1.8-7.7); BASOPHIL # 0.1 TH/MM3 (0-0.2); BASOPHIL % 1.4 % (0.0-2.0); EOSINOPHIL # 0.1 TH/MM3 (0-0.4); EOSINOPHIL % 1.2 % (0.0-4.0); HEMATOCRIT 32.5 % (35.0-46.0); HEMO FLAGS DIFF FINAL; LYMPH % 9.8 % (9.0-44.0); LYMPHOCYTE # 0.8 TH/MM3 (1.0-4.8); MEAN CELL VOLUME 83.3 FL (80.0-100.0); MEAN CORPUSCULAR HEMOGLOBIN 27.3 PG (27.0-34.0); MEAN CORPUSCULAR HGB CONC 32.7 % (32.0-36.0); MONO % 6.2 % (0.0-8.0); NEUT % 81.4 % (16.0-70.0); PLATELET COUNT 423 TH/MM3 (150-450); RED CELL DISTRIBUTION WIDTH 18.2 % (11.6-17.2); WHITE BLOOD COUNT 8.1 TH/MM3 (4.0-11.0)
[2016-09-14 21:06] LABS: BICARBONATE 35.9 MEQ/L (21.0-32.0)
[2016-09-14 21:07] LABS: POTASSIUM 4.5 MEQ/L (3.5-5.1)
--- NOTE | 2016-09-14 21:25 | RADRPT ---
EXAM DATE/TIME: 09/14/2016 20:15 [facility] COMPARISON: CHEST SINGLE AP, July 21, 2016, 15:19. INDICATIONS : Shortness of breath, cough. MEDICAL HISTORY : Hypertension. Diabetes mellitus type II. Myocardial infarction. CHF. COPD. SURGICAL HISTORY : CABG. ENCOUNTER: Initial ACUITY: 2 weeks PAIN SCORE: 0/10 LOCATION: Bilateral chest FINDINGS: A single view of the chest demonstrates a moderate-sized right effusion and a [id number] left effusion with basilar airspace disease. Findings similar to June 2016. Cardiomegaly. Previous med diana sternotomy. CONCLUSION: Cardiomegaly with mild edema pattern, basilar consolidation and right greater than left pleural effus ions most characteristic of congestive heart failure that is similar in appearance to June. Frank Auzl MD on September 14, 2016 at 21:21 Board Certified Radiologist. This report was verified electronically.
[2016-09-14 21:28] VITALS: BP 190/79; PULSE 63; RESP 20; O2SAT 98
[2016-09-14] MEDS ORDERED: BUMETANIDE INJ 1 MG/4 ML VIAL IV PUSH ONE (22:00)
[2016-09-14] MEDS ORDERED: NALOXONE HCL 0.4 MG/ML AMP IV PRN (22:00)
[2016-09-14] MEDS ORDERED: SODIUM CHLORIDE 0.9% FLUSH 10 ML FLUSH IV FLUSH PRN (22:00)
[2016-09-14 22:14] VITALS: BP 199/87; RESP 20
[2016-09-15] VITALS (9 sets, daily range): BP systolic 148–196; BP diastolic 68–88; PULSE 51–75; RESP 16–20; TEMP 98.3–98.6; O2SAT 95–98
[2016-09-15] MEDS ORDERED: BUMETANIDE INJ 1 MG/4 ML VIAL IV PUSH ONE (05:30)
--- NOTE | 2016-09-15 05:38 | HHI.HP ---
[facility] Remigio Lee, DO Admission Diagnosis CHF exacerbation, pulmonary effusions Diagnoses: (1) CHF exacerbation (2) Gyiiy-ro-uprltmf kidney injury (3) Anemia Chief Complaint: Difficulty breathing Travel History International Travel<30 Days: No Contact w/Intl Traveler <30 Da: No Traveled to Known Affected Are: No History of Present Illness Ms. Garcia is a 75-year-old female with a past history of hypothyroidism, coronary artery disease status post stent placement 2007 and coronary artery bypass graft 01 March 2016, congestive heart failure, hyperlipidemia, atrial fibrillation on Xarelto, hypertension, COPD, and GERD who presents to the emergency room on 09/14/2016 complaining of shortness of breath. She was hospitalized four times since her open heart surgery in February 2016 with pleural effusions requiring thoracentesis this mott her fifth hospitalization since CABG. Chest x-ray in ER shows cardiomegaly with mild edema pattern, basilar consolidation, and right greater than left pleural effusions most characteristic of congestive heart failure similar in appearance to imaging from June. BNP is mildly elevated at 275. *Echo 06/15/15 w/ EF 50-55% with severe mitral regurgitation, severely dilated left atrium, moderate to severe tricuspid valve regurgitation, and PA peak pressure 73 mmHg Patient has been at home since July 27 from her prior hospitalization. She states that she has been having progressively worsening shortness of breath and takes Bumex 1 mg twice a day. She formerly used supplemental oxygen during the night only but now requires oxygen 24/7. She thinks she has "messed up" her medications over the last month; "I think I took double the P.M." dose of some meds. She also thinks she may have missed some medications and complains that she has had some mild cognitive impairment since her open heart surgery in February. She is adamant that she does not want to go to an assisted living facility. The patient reports that she is not necessarily watching her fluid intake but states she only drinks about 4 glasses of iced tea per day. Regarding salt intake: she states she is not "as good as I (she) should be". Denies fever, cough, nausea, vomiting, diarrhea, dysuria, and burning with urination. Reports weight loss of 110 lbs after bypass with some increase over the past couple of months of about 30 lbs. *Of note regarding Lasix adverse reaction* Lasix causes excessive sweating, fatigue, and a large amount of diuresis - last used it in the 1970's - "it wore me out". Dr. Urbina is her cushion spring assembler; Dr. Barger is her manager of software. . Review of Systems Except as stated in HPI: all other systems reviewed are Neg Past Family Social History Past Medical History Hypothyroidism Coronary artery disease status post stent placement in 2007 and coronary artery bypass graft 01 March 2016 Congestive heart failure Hyperlipidemia Arthritis Diabetes mellitus Atrial fibrillation on Xarelto Hypertension COPD on home oxygen 24 hours a day now GERD Echo 06/15/15 w/ EF 50-55% . Past Surgical History CABG 3 in February 2016 Gastric bypass 2009 Back surgery Bilateral cataract surgery Coronary stent placed 2007 . Reported Medications Reported Meds & Active Scripts Active Levaquin (Levofloxacin) 500 Mg Tab 500 Mg PO DAILY Losartan (Losartan Potassium) 50 Mg Tab 50 Mg PO DAILY Xarelto (Rivaroxaban) 15 Mg Tab 15 Mg PO DAILY Acidophilus/l-Sporogenes (Lactobacillus Acidophilus) 1 Tab Tab 1 Tab PO TID Ferrous Sulfate 325 Mg Tab 325 Mg PO BID Oxygen tank (Oxygen) 1 Ea Tank 2 Liter JUANJOSE.CANULA CONTINUOUS Oxygen Concentrator Portable Gaseous 2 L/min via Nasal Cannula Continuous For 99 months Bumetanide 1 Mg Tab 1 Mg PO BID@,18 Trazodone (Trazodone HCl) 50 Mg Tab 50 Mg PO HS 30 Days Pantoprazole (Pantoprazole Sodium) 40 Mg Tab 40 Mg PO DAILY 30 Days Thera M Plus (Multivitamins/Minerals Therapeutic) 1 Tab 1 Tab PO DAILY [address] (Duloxetine HCl) 60 Mg Capdr 120 Mg PO DAILY 30 Days Lipitor (Atorvastatin Calcium) 10 Mg Tab 10 Mg PO HS 30 Days Aspirin Low Strength (Aspirin) 81 Mg Chew 81 Mg PO DAILY 30 Days Xanax (Alprazolam) 0.25 Mg Tab 0.25 Mg PO Q8HR PRN 30 Days Reported Metoprolol Tartrate 50 Mg Tab 50 Mg PO DAILY Meloxicam 7.5 Mg Tab 7.5 Mg PO DAILY Diltiazem (Diltiazem HCl) 90 Mg Tab 90 Mg PO Q6 HR Novolog Inj (Insulin Aspart) 1,000 Unit/10 Ml Vial 2-10 Units SQ ACHS Sliding Scale Nitroglycerin SL (Nitroglycerin) 0.4 Mg Subl 0.4 Mg SL DIRECTED PRN ONE TABLET UNDER THE TONGUE NEEDED FOR CHEST PAIN, MAY REPEAT EVERY FIVE MINUTES FOR A TOTAL OF 3 DOSES OR CALL 911 IF NO RELIEF Valtrex (Valacyclovir HCl) 1 Gm Tab 1 Gm PO DAILY Drisdol (Ergocalciferol) 50,000 Unit Cap 50,000 Units PO WEEKLY ON MONDAYS Cyanocobalamin Inj (Cyanocobalamin) 1,000 Mcg/Ml Inj 1,000 Mcg IM EVERY 2 WEEKS Lantus Inj (Insulin Glargine) 100 Unit/Ml Inj 17 Units SQ HS Levothyroxine (Levothyroxine Sodium) 150 Mcg Tab 150 Mcg PO DAILY@0600 Fenofibrate 160 Mg Tab 160 Mg PO HS . 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 - 09/15/2016 Active Ordered Medications Current Medications Methylprednisolone Sodium Succinate (SoluMEDROL INJ) 125 mg ONCE ONCE IVP Last administered on 09/14/16 20:30; Start 09/14/16 at 20:30; Stop 09/14/16 at 20:31; Status DC Albuterol/ Ipratropium (Duoneb Neb) 1 ampule Q15M INH Last administered on 09/14t 20:32; Start 09/14/16 at 20:30; Stop 09/14/16 at 20:46; Status DC Sodium Chloride (NS Flush) 2 ml UNSCH PRN IV FLUSH FLUSH AFTER USING IV ACCESS ; Start 09/14/16 at 22:00 Sodium Chloride (NS Flush) 2 ml BID IV FLUSH ; Start 09/15/16 at 09:00 Naloxone HCl (Narcan Inj) 0.4 mg UNSCH PRN IV SEE LABEL COMMENTS; Start at 22:00 Bumetanide (Bumex Inj) 1 mg BID@,18 IV PUSH ; Start 09/15/16 at 09:00 Bumetanide (Bumex Inj) 1 mg ONCE ONCE IV PUSH Last administered on 09/14/16t 22:00; Start 09/14/16 at 22:00; Stop 09/14/16 at 22:01; Status DC . Family History Father from myocardial infarction Mother from myocardial infarction Son committed suicide 2 years ago . Social History Tobacco: Quit smoking 30 years ago; smoked 3 ppd previously Alcohol: Denies daily alcohol use Son Mo committed suicide 2 years ago - anniversary of his was about a week ago and she is having a great deal of emotional stress . Physical Exam Vital Signs Vital Signs Date Time Temp Pulse Resp B/P Pulse Ox O2 Delivery O2 Flow Rate FiO2 09/15/16 00:16 62 20 173/76 09/14/16 22:14 20 199/87 09/14/16 21:28 63 20 190/79 98 Nasal Cannula 2 09/14/16 20:37 60 24 90 Nasal Cannula 2 09/14/16 20:35 60 24 198/80 90 Nasal Cannula 2 09/14/16 20:35 90 Nasal Cannula 2 09/14/16 20:33 99 Nasal Cannula 3.00 09/14/16 19:37 98.8 60 20 200/80 90 Nasal Cannula 3 Physical Exam GENERAL: This is an elderly female patient, in no apparent distress. SKIN: No rashes, ecchymoses or lesions. Cool and dry. HEAD: Atraumatic. Normocephalic. EYES: No scleral icterus. No injection or drainage. ENT: Nose without bleeding, purulent drainage. NECK: Trachea midline. No JVD or lymphadenopathy. CARDIOVASCULAR: Irregularly irregular rate and rhythm with soft murmur. Bilateral rales and decreased air entry at the bases. RESPIRATORY: Clear to auscultation. Breath sounds equal bilaterally. No wheezes , rales, or rhonchi. GASTROINTESTINAL: Abdomen soft, non-tender, nondistended. No guarding. MUSCULOSKELETAL: Extremities without clubbing, cyanosis, or edema. No calf tenderness. NEUROLOGICAL: Awake and alert. Motor and sensory grossly within normal limits. Normal speech. . Laboratory Laboratory Tests Test 09/14/16 20:20 White Blood Count 8.1 Red Blood Count 3.90 Hemoglobin 10.6 Hematocrit 32.5 Mean Corpuscular Volume 83.3 Mean Corpuscular Hemoglobin 27.3 Mean Corpuscular Hemoglobin 32.7 Concent Red Cell Distribution Width 18.2 Platelet Count 423 Mean Platelet Volume 8.6 Neutrophils (%) (Auto) 81.4 Lymphocytes (%) (Auto) 9.8 Monocytes (%) (Auto) 6.2 Eosinophils (%) (Auto) 1.2 Basophils (%) (Auto) 1.4 Neutrophils # (Auto) 6.6 Lymphocytes # (Auto) 0.8 Monocytes # (Auto) 0.5 Eosinophils # (Auto) 0.1 Basophils # (Auto) 0.1 CBC Comment DIFF FINAL Differential Comment Sodium Level 140 Potassium Level 4.5 Chloride Level 97 Carbon Dioxide Level 35.9 Anion Gap 7 Blood Urea Nitrogen 27 Creatinine 1.52 Estimat Glomerular Filtration 34 Rate Random Glucose 172 Calcium Level 9.3 B-Type Natriuretic Peptide 275 Result Diagram: 09/14/16201909/14/162019 Imaging Last Impressions Chest X-Ray 09/14/162010 Signed Impressions: Service Date/Time: Wednesday, September 14, 2016 20:15 - CONCLUSION: Cardiomegaly with mild edema pattern, basilar consolidation and right greater than left pleural effusions most characteristic of congestive heart failure that is similar in appearance to June. Frank Azul MD . Assessment and Plan Problem List: (1) CHF exacerbation ICD Code: I50.9 Status: Acute (2) Lfjfm-it-ggxuifs kidney injury ICD Code: N17.9 Status: Acute (3) Anemia ICD Code: D64.9 Status: Acute Assessment and Plan Ms. Garcia is a 75-year-old female with recurrent pleural effusions requiring thoracentesis x 4 since 03/14 CABG who presents for shortness of breath this mott her fifth hospitalization since CABG. CXR is c/w CHF. Congestive heart failure - Bumex 1 mg IV push twice a day - Monitor I and O's - Heart healthy diet - Continuous cardiac telemetry to monitor for cardiac arrhythmias - Patient would want Dr. Cardona consulted if cardiology consult becomes necessary Acute on chronic kidney injury - BUN 27, creatinine 1.52, estimated GFR 34 - Repeat BMP in a.m. and follow trends in renal indices - Avoid nephrotoxins Anemia - Hemoglobin 10.6 and hematocrit 32.5; microcytic, hypochromic - improved from June admission (hemoccult stool negative x 2 in June) - Continue supplemental iron - Repeat CBC in a.m. and follow trends DVT prophylaxis - SCDs Patient would like to have an advocate to help her understand her medical conditions and options. She would also like help with advanced directives - Palliative Care is consulted Written by Criss Hernandez, acting as scribe for Dr. Nesbitt on 09/15/16 at 05:00. .This note was transcribed by scribe [Criss Hernandez]. I, Dr. Ty Nesbitt personally performed the history, physical exam, and medical decision making; and confirmed the accuracy of the information in the transcribed note. Authenticated by Dr. Ty Nesbitt on 09/15/16 at 05:00. Code Status FULL CODE . Discussed Condition With ER physician and patient . Physician Certification 2 Midnight Certification Type: Admission for Inpatient Services Order for Inpatient Services The services are ordered in accordance with Medicare regulations or non- Medicare payer requirements, as applicable. In the case of services not specified as inpatient-only, they are appropriately provided as inpatient services in accordance with the 2-midnight benchmark. Estimated LOS (days): 3 days is the estimated time the patient will need to remain in the hospital, assuming treatment plan goals are met and no additional complications. Post-Hospital Plan: Not yet determined Problem Qualifiers (1) CHF exacerbation: Qualified Code: I50.9 - Acute on chronic congestive heart failure, unspecified congestive heart failure type (2) Anemia: Qualified Code: D50.9 - Iron deficiency anemia, unspecified iron deficiency anemia type Criss Hernandez Sep 15, 2016 05:38 Ty Nesbitt MD September 27, 2016 05:58
[2016-09-15 05:57] LABS: AUTOMATED NEUTROPHIL # 4.1 TH/MM3 (1.8-7.7); BASOPHIL % 0.3 % (0.0-2.0); EOSINOPHIL % 0.1 % (0.0-4.0); HEMO FLAGS DIFF FINAL; LYMPH % 3.2 % (9.0-44.0); LYMPHOCYTE # 0.1 TH/MM3 (1.0-4.8); MEAN CELL VOLUME 83.8 FL (80.0-100.0); MEAN CORPUSCULAR HEMOGLOBIN 26.3 PG (27.0-34.0); MEAN CORPUSCULAR HGB CONC 31.4 % (32.0-36.0); MONO % 0.5 % (0.0-8.0); NEUT % 95.9 % (16.0-70.0); PLATELET COUNT 350 TH/MM3 (150-450); RED BLOOD COUNT 3.94 MIL/MM3 (4.00-5.30); RED CELL DISTRIBUTION WIDTH 17.4 % (11.6-17.2); WHITE BLOOD COUNT 4.3 TH/MM3 (4.0-11.0)
[2016-09-15 06:12] LABS: BICARBONATE 35.2 MEQ/L (21.0-32.0); POTASSIUM 3.8 MEQ/L (3.5-5.1)
[2016-09-15] MEDS: SODIUM CHLORIDE 0.9% FLUSH 10 ML FLUSH IV FLUSH SCH ×2 (09:36→22:33)
[2016-09-15] MEDS: BUMETANIDE INJ 1 MG/4 ML VIAL IV PUSH SCH ×2 (09:36→18:00)
--- NOTE | 2016-09-15 10:34 | PD.CONS ---
Consult Service Palliative Care` . Consult Requested By Criss RGAY . Primary Care Physician Remigio Lee DO . Reason for Consultation a. To assist with evaluation and management of symptoms including: dyspnea, weakness b. To assist medical decision maker(s) with: better understanding of current medical conditions; weighing benefits/burdens of medical treatment options; making medical treatment decisions. . HPI History of Present Illness Ms. Garcia is a 75-year-old female patient who presented to [facility] ED on 09/14/16 for evaluation of progressively worsening shortness of breath x 3 days. The patient has a past medical history of hypothyroidism, coronary artery disease status post stent placement in 2007 and CABG 3 in 02/2016, CHF, hyperlipidemia, atrial fibrillation on Xarelto, HTN, COPD, and GERD. Ms. Garcia has had 4 hospitalizations since her open heart surgery in February,. She has had recurrent pleural effusions requiring thoracentesis. Dr. Urbina is her lawn service worker; Dr. Barger is her java sql developer. Additional diagnostic findings include: * Vital sounds: Pulse 60, respirations 20, BP 200/80, oxygen saturation 90% on 3L via nasal cannula, temperature 98.8 * WBC: 8.1, hemoglobin 10.6, hematocrit 32.5, platelets 423, neutrophils 81.4% * Sodium: 140, potassium 4.5, chloride 97, carbon dioxide 35.9, glucose 172, calcium 9.3 * BUN: 27, creatinine 1.52, GFR 34 * BNP: 275 * Chest x-ray revealed cardiomegaly with mild edema pattern, basilar consolidation and bilateral pleural effusions (right >left) most characteristic of CHF that is similar in appearance to June,. Labs and imaging showed pleural effusions as well as CHF exacerbation. Recommendations were made for a therapeutic thoracentesis. The patient was amenable to this plan and was subsequently admitted for further evaluation and medical management. An echocardiogram in May, revealed EF 50% to 55% with severe mitral valve regurgitation, severely dilated left atrium, moderate to severe tricuspid valvular regurgitation and PA peak pressure 73mmHg. She reports progressively worsening shortness of breath and takes Bumex 1 mg BID. Patient reports a weight loss of approximately 110 pounds after her bypass surgery in 2009 but has had an increase of about 30 pounds in the past few months. She admits that she is not "as good as I (she) should be" in regards to her diet, and she does not monitor her fluid intake, although she states she only drinks about 4 glasses of ice tea daily. Patient formerly used supplemental oxygen during the night and on an as-needed basis but now requires oxygen 24/7. She is concerned she may have "messed up" her medications in the past month, possibly secondary to some mild cognitive impairment she has developed since her open heart surgery in February,. The patient is adamant that she does not want to leave her home and go to an assisted living facility. Palliative Care was consulted to assist with symptom management and to discuss with the patient the benefits and burdens of her current illnesses and the options regarding future care. . Function/Cognitive Trajectory Patient is a 75-year-old female with a past medical history of hypothyroidism, COPD A/P stent placement in 2007 and CABG and 02/2016, CHF, hyperlipidemia, atrial fibrillation on several toe, hypertension, COPD and GERD. This is the patient's fifth hospitalization her open heart surgery in 02/2016. She has had recurrent pleural effusions requiring thoracentesis 5. Currently admitted with pleural effusion and CHF exacerbation. She reports progressively worsening shortness of breath; she is on Bumex 2 times daily. She formally use supplemental oxygen at night and on a as needed basis but is now on oxygen 24/ 7. Patient is is concerned she has "messed up" her medications over the past month, stating she has experienced some mild cognitive deficit deficits since her open heart surgery in 02/2016. Per documentation, patient has had a 33 pound weight loss over the past 6 months. . Review of Systems ROS Limitations: Clinical Condition Constitutional: COMPLAINS OF: Fatigue (increased fatigue), Weight loss ( approximately 30 pound weight loss in 6 months), Change in appetite (decreased appetite), Generalized weakness, DENIES: Chills, Dizziness Endocrine: DENIES: Polydipsia, Polyuria, Polyphagia Eyes: DENIES: Double Vision Respiratory: COMPLAINS OF: Shortness of breath Cardiovascular: COMPLAINS OF: Dyspnea on Exertion, DENIES: Chest pain, Palpitations, Lower Extremity Edema Gastrointestinal: DENIES: Diarrhea, Nausea, Vomiting, Vomiting blood Hematologic/Lymphatics: DENIES: History of transfusions Psychiatric: COMPLAINS OF: Anxiety, Confusion (patient reports some cognitive deficits s/p open heart surgery in 02/2016), Depression Past Family Social History Coded Allergies: Erythromycin (Verified Allergy, Unknown, 09/14/16) Lasix (Verified Allergy, Unknown, 09/14/16) Penicillin (Verified Allergy, Unknown, 09/14/16) *MDRO Multi-Drug Resistant Organism (Verified Adverse Reaction, Unknown, ) 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 - 09/15/2016 Past Medical History Hypothyroidism Coronary artery disease status post stent placement in 2007 and coronary artery bypass graft 01 March 2016 Congestive heart failure Hyperlipidemia Arthritis Diabetes mellitus Atrial fibrillation on Xarelto Hypertension COPD on home oxygen 24 hours a day now GERD Depression Echo 06/15/15 w/ EF 50-55% . Past Surgical History CABG 3 in February 2016 Gastric bypass 2010 Back surgery Bilateral cataract surgery Coronary stent placed 2007 . Reported Medications Meloxicam 7.5 Mg Tab 7.5 Mg PO DAILY Diltiazem (Diltiazem HCl) 90 Mg Tab 90 Mg PO Q6 HR Novolog Inj (Insulin Aspart) 1,000 Unit/10 Ml Vial 2-10 Units SQ ACHS Sliding Scale Nitroglycerin SL (Nitroglycerin) 0.4 Mg Subl 0.4 Mg SL DIRECTED PRN ONE TABLET UNDER THE TONGUE NEEDED FOR CHEST PAIN, MAY REPEAT EVERY FIVE MINUTES FOR A TOTAL OF 3 DOSES OR CALL 911 IF NO RELIEF Valtrex (Valacyclovir HCl) 1 Gm Tab 1 Gm PO DAILY Drisdol (Ergocalciferol) 50,000 Unit Cap 50,000 Units PO WEEKLY ON MONDAYS Cyanocobalamin Inj (Cyanocobalamin) 1,000 Mcg/Ml Inj 1,000 Mcg IM EVERY 2 WEEKS Lantus Inj (Insulin Glargine) 100 Unit/Ml Inj 17 Units SQ HS Levothyroxine (Levothyroxine Sodium) 150 Mcg Tab 150 Mcg PO DAILY@0600 Fenofibrate 160 Mg Tab 160 Mg PO HS . Current Medications Medications (Trade) Dose Ordered Sig/Seema Route Start Time Stop Time Status Last Admin (NS Flush) 2 ml UNSCH PRN IV FLUSH 09/14/16 22:00 (NS Flush) 2 ml BID IV FLUSH 09/15/16 09:00 09/15/16 09:36 (Narcan Inj) 0.4 mg UNSCH PRN IV 09/14/16 22:00 (Bumex Inj) 1 mg BID@09,18 IV PUSH 09/15/16 09:00 09/15/16 09:36 . Family History Father from myocardial infarction Mother from myocardial infarction Son committed suicide 2 years ago . Substance Use Tobacco: Number smoker, quit approximately 25 years ago. Alcohol: Patient denies EtOH consumption Prescription med abuse: Patient denies Illicits: Patient denies . Psychosocial History Patient is originally from [place]. Both her mother and father are ; both from myocardial infarction. Patient has 1 brother (Valentin) who lives in [place]. She states she and her brother have a "horrible" relationship. Patient was for 7 years and in 1972; she never remarried. She had one son (Mo) who committed suicide 2 years ago when he was approximately 45 years old. She states he struggled with depression and alcoholism for many years, and she was not surprised when she received a phone call stating he had " hung himself in the back yard." It was recently the second anniversary of his , and the patient states it has been very difficult. She was very close to her son. Patient recently moved to [place]. It is unclear why the patient decided to move to [place] because she states she has no close friends or family here and she doesn't particularly like [place]. . Spiritual/Cultural Factors Confucianist haley . Health Care Surrogate: Copy in medical record Date completed: 09/15/2016 . Health Care Surrogate(s): Patient has designated her best friend, Melody Pantoja, as her health care surrogate decision maker. . Documented care wishes: No documented care wishes are available. Information about living will was left with patient to review. . Today's verbally stated goals: Patient states she has "a lot more life to live and I'm (she) not ready to give up yet." Patient verbalizing aggressive goals at this time. . Family/friends goals: No family or friends are present at this time. . Ethical and Legal Issues Patient is currently capacitated to participate in medical decision making. She demonstrates an understanding of her medical conditions and the ability to weigh the benefits and burdens of treatment options. . Physical Exam Vital Signs Date Time Temp Pulse Resp B/P Pulse Ox O2 Delivery O2 Flow Rate FiO2 09/15/16 08:28 67 18 196/81 97 Nasal Cannula 3 09/15/16 06:40 75 16 190/88 95 Nasal Cannula 3 09/15/16 00:16 62 20 173/76 09/14/16 22:14 20 199/87 09/14/16 21:28 63 20 190/79 98 Nasal Cannula 2 09/14/16 20:37 60 24 90 Nasal Cannula 2 09/14/16 20:35 60 24 198/80 90 Nasal Cannula 2 09/14/16 20:35 90 Nasal Cannula 2 09/14/16 20:33 99 Nasal Cannula 3.00 09/14/16 19:37 98.8 60 20 200/80 90 Nasal Cannula 3 . Exam CONSTITUTIONAL/GENERAL: This is an adequately nourished patient, in no apparent distress. TUBES/LINES/DRAINS: PIV x 1, Nasal cannula SKIN: No jaundice, rashes, or lesions. No wounds seen anteriorly. Skin temperature appropriate. Not diaphoretic. HEAD: Atraumatic. Normocephalic. EYES: Pupils equal and round and reactive. Extraocular motions intact. No scleral icterus. No injection or drainage. Fundi not examined. ENT: Hearing grossly normal. Nose without bleeding or purulent drainage. NECK: Trachea midline. Supple, nontender. No palpable thyroid enlargement or nodularity. CARDIOVASCULAR: Irregularly irregular. No JVD. Symmetrical peripheral pulses RESPIRATORY/CHEST: Symmetric, unlabored respirations. Decreased air exchange in bases bilaterally, scattered rales. GASTROINTESTINAL: Abdomen soft, non-tender, nondistended. No hepato-splenomegaly , or palpable masses. No guarding. Bowel sounds present. GENITOURINARY: Without palpable bladder distension. MUSCULOSKELETAL: Extremities without clubbing, cyanosis, or edema. No joint tenderness or effusion noted. No calf tenderness. No mottling or clubbing. LYMPHATICS: No palpable cervical or supraclavicular adenopathy. NEUROLOGICAL: Awake and alert. Motor and sensory grossly within normal limits. Follows commands. Moves all extremities. PSYCHIATRIC: No obvious anxiety/depression. no apparent hallucinations or other psychotic thought process. . Diagnostic Tests Laboratory Laboratory Tests Test 09/14/16 09/15/16 20:20 05:34 White Blood Count 8.1 TH/MM3 4.3 TH/MM3 (4.0-11.0) (4.0-11.0) Red Blood Count 3.90 MIL/MM3 3.94 MIL/MM3 (4.00-5.30) (4.00-5.30) Hemoglobin 10.6 GM/DL 10.3 GM/DL (11.6-15.3) (11.6-15.3) Hematocrit 32.5 % 33.0 % (35.0-46.0) (35.0-46.0) Mean Corpuscular Volume 83.3 FL 83.8 FL (80.0-100.0) (80.0-100.0) Mean Corpuscular Hemoglobin 27.3 PG 26.3 PG (27.0-34.0) (27.0-34.0) Mean Corpuscular Hemoglobin 32.7 % 31.4 % Concent (32.0-36.0) (32.0-36.0) Red Cell Distribution Width 18.2 % 17.4 % (11.6-17.2) (11.6-17.2) Platelet Count 423 TH/MM3 350 TH/MM3 (150-450) (150-450) Mean Platelet Volume 8.6 FL 8.3 FL (7.0-11.0) (7.0-11.0) Neutrophils (%) (Auto) 81.4 % 95.9 % (16.0-70.0) (16.0-70.0) Lymphocytes (%) (Auto) 9.8 % 3.2 % (9.0-44.0) (9.0-44.0) Monocytes (%) (Auto) 6.2 % (0.0-8.0) 0.5 % (0.0-8.0) Eosinophils (%) (Auto) 1.2 % (0.0-4.0) 0.1 % (0.0-4.0) Basophils (%) (Auto) 1.4 % (0.0-2.0) 0.3 % (0.0-2.0) Neutrophils # (Auto) 6.6 TH/MM3 4.1 TH/MM3 (1.8-7.7) (1.8-7.7) Lymphocytes # (Auto) 0.8 TH/MM3 0.1 TH/MM3 (1.0-4.8) (1.0-4.8) Monocytes # (Auto) 0.5 TH/MM3 0.0 TH/MM3 (0-0.9) (0-0.9) Eosinophils # (Auto) 0.1 TH/MM3 0.0 TH/MM3 (0-0.4) (0-0.4) Basophils # (Auto) 0.1 TH/MM3 0.0 TH/MM3 (0-0.2) (0-0.2) CBC Comment DIFF FINAL DIFF FINAL Differential Comment Sodium Level 140 MEQ/L 139 MEQ/L (136-145) (136-145) Potassium Level 4.5 MEQ/L 3.8 MEQ/L (3.5-5.1) (3.5-5.1) Chloride Level 97 MEQ/L 96 MEQ/L (98-107) (98-107) Carbon Dioxide Level 35.9 MEQ/L 35.2 MEQ/L (21.0-32.0) (21.0-32.0) Anion Gap 7 MEQ/L (5-15) 8 MEQ/L (5-15) Blood Urea Nitrogen 27 MG/DL (7-18) 27 MG/DL (7-18) Creatinine 1.52 MG/DL 1.26 MG/DL (0.50-1.00) (0.50-1.00) Estimat Glomerular Filtration 34 ML/MIN (>89) 42 ML/MIN (>89) Rate Random Glucose 172 MG/DL 269 MG/DL (74-106) (74-106) Calcium Level 9.3 MG/DL 9.2 MG/DL (8.5-10.1) (8.5-10.1) B-Type Natriuretic Peptide 275 PG/ML (0-100) . Result Diagram: 09/15/16 0534 09/15/16 0534 Imaging Last 72 hours Impressions Chest X-Ray 09/14/162010 Signed Impressions: Service Date/Time: Wednesday, September 14, 2016 20:15 - CONCLUSION: Cardiomegaly with mild edema pattern, basilar consolidation and right greater than left pleural effusions most characteristic of congestive heart failure that is similar in appearance to June. Frank Azul MD . Patient/Family Conference Family Conference Location: Bedside Issues Discussed: * Palliative care role, purpose, approach * Additional medical, psychosocial, and spiritual history * Patients general health, functional status, and cognitive changes in the months leading up to the current hospitalization * Patient/family understanding of the current medical problems * Patient/family understanding of prognosis * Patients goals of care as best understood from advance directives and/or conversations and/or values * Current medical treatment options and benefits/burdens of those options * Likely scenarios comparing ongoing aggressive care with a transition to comfort measures only * Questions answered to the best of my ability * Palliative care contact information provided . Assessment and Plan Disease Oriented Problem List: (1) CHF exacerbation Comment: Chest x-ray revealed cardiomegaly with mild edema pattern, basilar consolidation and pleural effusions (right > left) most characteristic of congestive failure that is similar appearance in comparison to June,. (2) [id number]-lukoykq kidney injury (3) Atrial fibrillation (4) Hypertension (5) DM2 (diabetes mellitus, type 2) (6) Hyperlipemia (7) Hypothyroidism (8) Coronary artery disease (9) Recurrent left pleural effusion Comment: Recurrent pleural effusions requiring thoracentesis 5 (10) S/P CABG x 3 Comment: February, Symptom Scale: (1) Weakness 0-10 Scale: Unable to quantify (2) Dyspnea 0-10 Scale: Unable to quantify Comment: Patient presented to [facility] ED for evaluation of progressively worsening shortness of breath 3 days. Patient has had recurrent pleural effusions s/p open heart surgery in February, requiring thoracentesis 5. * Chest x-ray revealed CHF exacerbation and bilateral pleural effusions. * BNP: 275 * Bumex 1 mg BID at home; Bumex was administered IV push 1 since admission . (3) Confusion 0-10 Scale: Unable to quantify Comment: Patient reports mild cognitive deficits since open heart surgery in February, - having difficulty focusing/finding words. Pertinent Non-Medical Issues Psychosocial: Patient is originally from [place]. Both her mother and father are ; both from myocardial infarction. Patient has 1 brother (Valentin) who lives in [place]. She states she and her brother have a "horrible" relationship. Patient was for 7 years and in 1972 ; she never remarried. She had one son (Mo) who committed suicide 2 years ago when he was approximately 45 years old. She states he struggled with depression and alcoholism for many years, and she was not surprised when she received a phone call stating he had " hung himself in the back yard." It was recently the second anniversary of his , and the patient states it has been very difficult. She was very close to her son. Patient recently moved to [place]. It is unclear why the patient decided to move to [place] because she states she has no close friends or family here and she doesn't particularly like [place]. Spiritual: Confucianist haley Legal: Patient has designated her best friend, Melody Pantoja, as her health care surrogate decision maker. Ethical issues impacting care: Patient is currently capacitated to participate in medical decision making. She demonstrates an understanding of her medical conditions and the ability to weigh the benefits and burdens of treatment options. . Important Contacts Logan Melton, brother: [phone] Melody Pantoja, friend: [phone] . Prognosis Patient is an 75 year old female with a past medical history of hypothyroidism, coronary artery disease status post stent placement in 2007 and CABG 3 in 2015, CHF, hyperlipidemia, atrial fibrillation on Xarelto, HTN, COPD, and GERD. This is the patient's fifth hospitalizations since her open heart surgery in February,-currently admitted with CHF exacerbation and bilateral pleural effusions. Pleural effusions have been recurrent recurrent pleural effusions requiring thoracentesis x 5. Code Status: Full Code Plan * FULL CODE * Decision-making: Patient is currently capacitated to participate in medical decision making. She demonstrates an understanding of her medical conditions and the ability to weigh the benefits and burdens of treatment options. Patient has designated her best friend, Melody Pantoja, as her health care surrogate decision maker. * HCS designation form was completed on 09/15/16. Copies were placed in the patient's paper chart and faxed to HIM to be scanned into the patient's EMR. The patient also received a copy of this form area * Goals: Patient states she has "a lot more life to live and I'm (she) not ready to give up yet." Patient verbalizing aggressive goals at this time. Thank you for the opportunity to participate in the care of Ms. Garcia. Attestation To help prompt me to consider important information that might be impacting today's encounter and assessment, information from prior notes written by myself or my colleagues may have been "brought forward" into today's note. My signature on this note, however, is an attestation that I personally performed the exam, history, and/or decision-making noted today, and, unless otherwise indicated, the interactions with patient, family, and staff as well as the review of records all occurred today. I also attest that the listed assessment and stated plan reflect my best clinical judgment today based on the combination of historical information, prior notes, and today's exam/ interactions. When time spent is documented, it refers only to time spent today by the signer, or if indicated, combined time spent today by collaborating physician/nurse practitioner. . Melody Dietrich Sep 15, 2016 10:34
[2016-09-15] MEDS: DILTIAZEM HCL 90 MG TAB PO SCH ×2 (14:00→22:33)
[2016-09-15] MEDS: traZODone HCL 50 MG TAB PO SCH (22:32)
[2016-09-15] MEDS: FERROUS SULFATE 325 MG (65 MG ELEMENTAL IRON) TAB PO SCH (22:32)
[2016-09-15] MEDS: ATORVASTATIN 10 MG TAB PO SCH (22:32)
[2016-09-15] MEDS: FENOFIBRATE 145 MG TAB PO SCH (22:32)
--- NOTE | 2016-09-15 22:36 | EKG ---
Date Performed: 09/14/2016 Time Performed: 21:08:40 PTAGE: 75 years EKG: ATRIAL FIBRILLATION MARKED RIGHT AXIS DEVIATION POSSIBLE ANTERIOR MYOCARDIAL INFARCTION Non specific ST and T wave abnormalities ABNORMAL ECG Compared to the PREVIOUS TRACING , non-specific ST/T wave changes are new DOCTOR: Yung Seals Interpretating Date/Time 09/15/2016 22:34:35
[2016-09-16] VITALS (16 sets, daily range): BP systolic 146–195; BP diastolic 68–80; PULSE 43–71; RESP 18–28; TEMP 96.9–98.4; O2SAT 93–97
[2016-09-16] MEDS ORDERED: clonazePAM 0.5 MG TAB PO ONE (01:45)
[2016-09-16] MEDS ORDERED: hydrALAZINE HCL 20 MG/ML VIAL IV PUSH ONE (01:45)
[2016-09-16] MEDS: hydrALAZINE HCL 20 MG/ML VIAL IV PUSH PRN ×2 (05:43→23:28)
[2016-09-16] MEDS: DILTIAZEM HCL 90 MG TAB PO SCH (05:43)
[2016-09-16] MEDS: LEVOTHYROXINE SODIUM 150 MCG TAB PO SCH (05:43)
[2016-09-16] MEDS: FERROUS SULFATE 325 MG (65 MG ELEMENTAL IRON) TAB PO SCH ×2 (09:00→22:22)
[2016-09-16] MEDS ORDERED: METOPROLOL TARTRATE 50 MG TAB PO SCH (09:00)
[2016-09-16] MEDS: amLODIPine BESYLATE 5 MG TAB PO SCH (09:00)
[2016-09-16] MEDS: MULTIVITAMINS/MINERALS THERAPEUTIC TAB PO SCH (09:24)
[2016-09-16] MEDS: BUMETANIDE INJ 1 MG/4 ML VIAL IV PUSH SCH ×2 (09:24→22:27)
[2016-09-16] MEDS: PANTOPRAZOLE SOD 40 MG DELAYED RELEASE TAB PO SCH (09:24)
[2016-09-16] MEDS: LOSARTAN 50 MG TAB PO SCH (09:24)
[2016-09-16] MEDS: SODIUM CHLORIDE 0.9% FLUSH 10 ML FLUSH IV FLUSH SCH ×2 (09:24→22:22)
[2016-09-16] MEDS: DULoxetine HCl DR 60 MG CAP PO SCH (09:24)
[2016-09-16] MEDS ORDERED: LORazepam 2 MG/ML VIAL ONE (12:02)
--- NOTE | 2016-09-16 12:09 | RADRPT ---
EXAM DATE/TIME: 09/16/2016 11:47 [facility] COMPARISON: US GUIDED THORACENTESIS RIGHT, July 22, 2016, 9:01. CHEST SINGLE AP, September 14, 2016, 20:15. INDICATIONS : Short of breath MEDICAL HISTORY : Hypertension. Diabetes mellitus type II. Myocardial infarction. CHF. COPD. SURGICAL HISTORY : CABG. ENCOUNTER: Subsequent ACUITY: 3 days PAIN SCORE: 0/10 LOCATION: Bilateral chest FINDINGS: There is a moderate-sized right pleural effusion which has increased slightly in volume compared to p revious examination. A tiny left pleural effusion is noted. The heart is enlarged. Median sternoto my wires are noted status post cardiac surgery. Mild central pulmonary vascular congestion is noted. CONCLUSION: 1. Moderate-sized right pleural effusion which appears to have increased slightly in volume compared to the previous examination. 2. Cardiomegaly. 3. Tiny left pleural effusion. 4. Mild central pulmonary vascular congestion. Jason Sellers MD on September 16, 2016 at 12:03 Board Certified Radiologist. This report was verified electronically.
--- NOTE | 2016-09-16 12:11 | HHI.PR ---
Subjective Remarks patient bradycardia- HR 40s- with chronic a fib breathing/feeling much better Objective Vitals Vital Signs Date Time Temp Pulse Resp B/P Pulse Ox O2 Delivery O2 Flow Rate FiO2 09/16/16 08:00 97 Nasal Cannula 3.00 09/16/16 08:00 98.4 71 22 161/68 93 09/16/16 04:00 98.1 64 18 190/80 93 09/16/16 00:00 97.6 57 18 195/80 95 09/15/16 21:00 Nasal Cannula 3.00 09/15/16 20:05 51 09/15/16 20:00 98.5 55 18 179/81 97 09/15/16 17:33 95 Nasal Cannula 2.00 09/15/16 16:00 98.6 58 18 190/68 95 I/O 09/15/16 09/15/16 09/15/16 09/16/16 09/16/16 09/16/16 07:00 15:00 23:00 07:00 15:00 23:00 Intake Total 240 ml 240 ml Balance 240 ml 240 ml Intake Oral 240 ml 240 ml # Voids 1 2 # Bowel Movements 0 0 Result Diagram: 09/15/16 0534 09/15/16 0534 Imaging Last Impressions Chest X-Ray 09/14/162010 Signed Impressions: Service Date/Time: Wednesday, September 14, 2016 20:15 - CONCLUSION: Cardiomegaly with mild edema pattern, basilar consolidation and right greater than left pleural effusions most characteristic of congestive heart failure that is similar in appearance to June. Frank Azul MD Objective Remarks awake and alert, some dyspnea with exertion anicteric decreased breath sounds from base to mid, decrease vocal fremitis- right LF rales left base abdomen soft edextremtiies no edema A/P Problem List: (1) CHF exacerbation ICD Code: I50.9 Status: Acute (2) Zthxa-pj-[id number] kidney injury ICD Code: N17.9 Status: Acute (3) Anemia ICD Code: D64.9 Status: Acute Assessment and Plan Ms. Garcia is a 75-year-old female with recurrent pleural effusions requiring thoracentesis x 4 since 03/14 CABG who presents for shortness of breath this mott her fifth hospitalization since CABG. CXR is c/w CHF. Congestive heart failure with Recurrent right Pleural effusion - IR consult for thoracentesis- per patient had thoracentesis done in the past several times - consult her Almond Blancher Hand - Dr Hall - Bumex 1 mg IV push twice a day - Monitor I and O's - Heart healthy diet Bradycardia- rate 40s- history of chronic a fib -DC CArdizem and Metoprolol for now- consider restart BB at a lower dose with hold parameter in am - Transfer to [facility] - hold xarelto for possible tap -get limited ECho HYpertesnion- uncontrolled - BB and CCB held due to above - on cozaar 50 mg daily - start Hydralazine 25 mg po q 8 - amlodipine 5 mg po daily - prn IV Hydralazine Acute on chronic kidney injury - BUN 27, creatinine 1.52, estimated GFR 34 - FF BMP in a.m. and follow trends in renal indices - Avoid nephrotoxins DM type 2 insulin requiring - SS with glucose monitoring - on Lantus as OP- hold Anemia - Hemoglobin 10.6 and hematocrit 32.5; microcytic, hypochromic - improved from June admission (hemoccult stool negative x 2 in June) - Continue supplemental iron DVT prophylaxis - SCDs Patient would like to have an advocate to help her understand her medical conditions and options. She would also like help with advanced directives - Palliative Care is consulted Problem Qualifiers (1) CHF exacerbation: Qualified Code: I50.9 - Acute on chronic congestive heart failure, unspecified congestive heart failure type (2) Anemia: Qualified Code: D50.9 - Iron deficiency anemia, unspecified iron deficiency anemia type Kortney Cee MD Sep 16, 2016 12:11
[2016-09-16 12:15] LABS: BLOOD GAS BASE EXCESS 8.9 mmol/L (-2-2); BLOOD GAS CARBOXYHEMOGLOBIN 1.4 % (0-4); BLOOD GAS HCO3 34 mmol/L (22-26); BLOOD GAS METHEMOGLOBIN 0.9 % (0-2); BLOOD GAS O2 HGB SATURATION 91 % (90-100); BLOOD GAS OXYGEN CONTENT 13.1 Vol % (12.0-20.0); BLOOD GAS PCO2 54 mmHg (38-42); BLOOD GAS PO2 70 mmHg (61-120); BLOOD GAS TOTAL HGB 10.2 G/DL (12.0-16.0); TEMP CORR TO 98.6
[2016-09-16 12:17] LABS: CRITICAL VALUE YES; LITER FLOW 3 L/M; OXYGEN DEVICE NASAL CANNULA
[2016-09-16 12:18] LABS: DRAW SITE RT RADIAL; NUMBER OF ARTERIAL PUNCTURES 1; STAT YES; ULNAR PULSE PRESENT
[2016-09-16 13:07] LABS: PROTHROMBIN TIME - PATIENT 11.1 SEC (9.8-11.6)
[2016-09-16 13:14] LABS: ANION GAP 7 MEQ/L (5-15); AST (GOT) 27 U/L (15-37); BICARBONATE 35.1 MEQ/L (21.0-32.0); BLOOD UREA NITROGEN 38 MG/DL (7-18); CHLORIDE 97 MEQ/L (98-107); GLOMERULAR FILTRATION RATE 43 ML/MIN (>89); POTASSIUM 3.8 MEQ/L (3.5-5.1); SODIUM (NA) 139 MEQ/L (136-145)
[2016-09-16 13:17] LABS: ALKALINE PHOSPHATASE 76 U/L (45-117); ALT (GPT) 22 U/L (10-53); TOTAL BILIRUBIN ADULT 0.4 MG/DL (0.2-1.0)
[2016-09-16] MEDS: hydrALAZINE HCL 25 MG TAB PO SCH ×2 (14:00→22:22)
--- NOTE | 2016-09-16 16:43 | ECHLIM ---
Study Study Date:09/16/2016 STUDY CONCLUSIONS SUMMARY - Left ventricle: The cavity size was normal. Wall thickness was normal. Systolic function was normal. The estimated ejection fraction was in the range of 55% to 60%. Wall motion was normal; there were no regional wall motion abnormalities. - Mitral valve: Moderate to severe regurgitation. - Left atrium: The atrium was severely dilated. - Tricuspid valve: Moderate regurgitation. - Pulmonary arteries: PA peak pressure: 80mm Hg (S). - Pericardium, extracardiac: There was a left pleural effusion. Impressions: The right ventricular systolic pressure was increased consistent with severe pulmonary hypertension. If LV function is below 40, please consider prescribing an ACEI or ARB or document rationale for non-use. PROCEDURE DATA STUDY STATUS: Elective. Procedure: Transthoracic echocardiography. Image quality was good. Scanning was performed from the parasternal, apical, and subcostal acoustic windows. Study completion: The patient tolerated the procedure well. Transthoracic echocardiography. M-mode, complete 2D, complete spectral Doppler, and color Doppler. Patient status: Inpatient. CARDIAC ANATOMY LEFT VENTRICLE: The cavity size was normal. Wall thickness was normal. Systolic function was normal. The estimated ejection fraction was in the range of 55% to 60%. Wall motion was normal; there were no regional wall motion abnormalities. AORTIC VALVE: Trileaflet; normal thickness leaflets. Doppler: Transvalvular velocity was within the normal range. There was no stenosis. No regurgitation. AORTA: Aortic root: The aortic root was normal in size. MITRAL VALVE: Structurally normal valve. Doppler: Transvalvular velocity was within the normal range. There was no evidence for stenosis. Moderate to severe regurgitation. Peak gradient: 4mm Hg (D). LEFT ATRIUM: The atrium was severely dilated. RIGHT VENTRICLE: The cavity size was normal. Wall thickness was normal. PULMONIC VALVE: Doppler: Transvalvular velocity was within the normal range. There was no evidence for stenosis. No regurgitation. TRICUSPID VALVE: Structurally normal valve. Doppler: Transvalvular velocity was within the normal range. Moderate regurgitation. PULMONARY ARTERY: The main pulmonary artery was normal-sized. Systolic pressure was within the normal range. RIGHT ATRIUM: The atrium was normal in size. PERICARDIUM: There was no pericardial effusion. SYSTEMIC VEINS: Inferior vena cava: The vessel was normal in size. Pleura: There was a left pleural effusion. BASIC MEASUREMENTS ADULT Normal Left ventricle LV internal dimension, ED, chordal level, *40.6 mm 43-52 PLAX LV internal dimension, ES, chordal level, 30.4 mm 23-38 PLAX Fractional shortening, chordal level, PLAX *25 % >29 LV posterior wall thickness, ED 11.9 mm IVS/LVPW ratio, ED 1.11 <1.3 Ventricular septum Septal thickness, ED 13.2 mm Left atrium Anterior-posterior dimension 54 mm DOPPLER MEASUREMENTS ADULT Normal Main pulmonary artery Pressure, S *80 mm Hg =30 Mitral valve Peak E-wave velocity 95.8 cm/s Peak A-wave velocity 56.3 cm/s Peak gradient, D 4 mm Hg Peak E/A ratio 1.7 Maximal regurgitant velocity 643 cm/s Tricuspid valve Regurgitant peak velocity 417 cm/s Peak RV-RA gradient, S 70 mm Hg Maximal regurgitant velocity 417 cm/s Systemic veins Estimated CVP 5 mm Hg Right ventricle RV pressure, S *80 mm Hg <30 LEGEND: Mean values are shown as u=mean value. Asterisk (*) mott values outside specified normal range. Prepared and signed by Harsh Mckeon [id number]
[2016-09-16 20:45] LABS: APTT (PATIENT) 25.3 SEC (24.3-30.1); PROTHROMBIN TIME - PATIENT 11.3 SEC (9.8-11.6)
--- NOTE | 2016-09-16 20:46 | MH ---
cc: [facility] DATE OF ADMISSION 09/14/[address] Cee REASON FOR CONSULTATION Pleural effusion. HISTORY OF PRESENT ILLNESS Ms. Garcia is a pleasant 75-year-old female who is known to me from the previous admission. She has history of pleural effusion, multiple thoracenteses done in the past. She had a recent coronary artery disease status post coronary artery bypass graft x3 done by Dr. Mi Blackwell. She has been admitted a few times with worsening of shortness of breath. Over the last one week or so she has had increasing shortness of breath, orthopnea and swelling in the legs. Did not have any fever or chills. No night sweats. No chest pain. With these symptoms, she came to the hospital. She had a chest x-ray done which shows worsening of her right pleural effusion. Her WBC count is 4.3, hemoglobin 10.3, hematocrit 33, MCV 83, platelet count 350, INR is 1.0. Her sodium 139, potassium 3.8, chloride 97, CO2 35. BUN 3_, creatinine 1.22. Blood gas showes pH 7.42, pCO2 of 54, pO2 70, bicarb 34. PAST MEDICAL HISTORY 1. History of coronary artery disease status post coronary artery bypass graft x3 2. History of UT status post stent placement, 3. Congestive heart failure, 4. Hypertension, 5. Diabetes mellitus, 6. Multiple thoracenteses done. MEDICATIONS Currently taking 1. Cholecalciferol 50,000 units every week 2. Hydralazine 25 mg q. 8-hour. 3. Cymbalta 120 mg a day 4. Cozaar 150 mg a day, 5. Protonix 40 mg a day 6. Amlodipine 5 mg daily, 7. Synthroid 150 mcg a day, 8. Lipitor 10 mg a day, 9. Ferrous sulfate 325 mg twice a day 10. Trazodone 50 mg at nighttime. 11. Tricor 145 mg at nighttime 12. Bumex 1 mg twice a day. 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 She has history of smoking which she quit 30 years ago. FAMILY HISTORY She has one son who committed suicide. REVIEW OF SYSTEMS She feels weak, walks only short distance, no DVT or pulmonary embolism. No seizure, stroke or epilepsy. PHYSICAL EXAMINATION GENERAL: Frail elderly female mildly short of breath. VITAL SIGNS: Blood pressure 146/71, heart rate 60, respiration 20, temperature 96.9 HEENT: Pupils are equal and react to light. NECK: Supple. No JVD. CHEST: She has dull percussion note and decreased breath sound on the right chest. CARDIOVASCULAR: S1, S2 normal. ABDOMEN: Soft, nondistended. Bowel sounds present. EXTREMITIES: 1+ pedal edema. 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 No focal deficit. IMPRESSION 1. Increasing right pleural effusion. She had multiple thoracentesis done in the past. 2. Congestive heart failure. 3. Coronary artery disease status post coronary artery bypass graft 4. History of UT and stent placed. 5. Anxiety, depression 6. Diabetes mellitus. PLAN I discussed with the patient she will need thoracentesis. I will consult interventional radiology for therapeutic thoracentesis on the right side. I explained to her procedure and the complication which she understands well. She is being diuresed. Monitor her electrolytes. Supplement her oxygen. Further treatment will depend on the course in the hospital. Thank you, Dr. Cee, for this consultation. MD LEISA Mosley/ /8:01 PM /8:17 PM MTDD
[2016-09-16] MEDS: FENOFIBRATE 145 MG TAB PO SCH (22:21)
[2016-09-16] MEDS: ATORVASTATIN 10 MG TAB PO SCH (22:21)
[2016-09-16] MEDS: traZODone HCL 50 MG TAB PO SCH (22:22)
[2016-09-17] VITALS (29 sets, daily range): BP systolic 149–176; BP diastolic 66–83; PULSE 46–87; RESP 20–24; TEMP 98–98.6; O2SAT 93–100
[2016-09-17] MEDS ORDERED: clonazePAM 0.5 MG TAB PO ONE (02:30)
[2016-09-17] MEDS: LEVOTHYROXINE SODIUM 150 MCG TAB PO SCH (04:39)
[2016-09-17] MEDS: hydrALAZINE HCL 25 MG TAB PO SCH ×3 (04:39→22:00)
[2016-09-17] MEDS: LOSARTAN 50 MG TAB PO SCH (08:09)
[2016-09-17] MEDS: PANTOPRAZOLE SOD 40 MG DELAYED RELEASE TAB PO SCH (08:09)
[2016-09-17] MEDS: MULTIVITAMINS/MINERALS THERAPEUTIC TAB PO SCH (08:09)
[2016-09-17] MEDS: amLODIPine BESYLATE 5 MG TAB PO SCH (08:09)
[2016-09-17] MEDS: DULoxetine HCl DR 60 MG CAP PO SCH (08:09)
[2016-09-17] MEDS: FERROUS SULFATE 325 MG (65 MG ELEMENTAL IRON) TAB PO SCH ×2 (08:09→20:00)
[2016-09-17] MEDS: SODIUM CHLORIDE 0.9% FLUSH 10 ML FLUSH IV FLUSH SCH ×2 (08:10→20:01)
[2016-09-17] MEDS: BUMETANIDE INJ 1 MG/4 ML VIAL IV PUSH SCH ×2 (08:10→16:53)
[2016-09-17] MEDS ORDERED: LIDOCAINE 1%/EPINEPHrine 1:100,000 SOLN 20 ML VIAL ONE (12:24)
[2016-09-17] MEDS ORDERED: MIDAZOLAM HCL 2 MG/2 ML VIAL ONE (12:44)
[2016-09-17] MEDS ORDERED: BUPIVACAINE HCL PF 0.75% 10 ML VIAL ONE (13:06)
--- NOTE | 2016-09-17 14:27 | HHI.PR ---
Subjective Remarks patient back from IR- thoracentesis done- obtained about 2 L fluid- pigtail catheter placed initially drained brownish colored fluid per report- studies sent now draining lt red tingled clear fluid patient states breathing much better tolerated procedure well Objective Vitals Vital Signs Date Time Temp Pulse Resp B/P Pulse Ox O2 Delivery O2 Flow Rate FiO2 09/17/16 13:11 94 Nasal Cannula 3.00 09/17/16 08:00 98.4 77 22 167/77 93 09/17/16 08:00 Nasal Cannula 3.00 09/17/16 06:00 83 09/17/16 05:00 72 09/17/16 04:00 87 09/17/16 04:00 98.2 67 24 161/70 96 09/17/16 03:00 70 09/17/16 02:00 80 09/17/16 01:00 78 09/17/16 00:00 65 09/17/16 00:00 98.2 67 24 176/83 94 09/16/16 23:00 62 09/16/16 22:00 52 09/16/16 21:26 95 Nasal Cannula 3.00 09/16/16 21:00 60 09/16/16 20:00 63 09/16/16 20:00 Nasal Cannula 3.00 09/16/16 20:00 98.2 46 24 162/74 94 09/16/16 18:07 63 09/16/16 17:08 61 09/16/16 16:00 60 09/16/16 15:00 96.9 60 24 146/71 95 09/16/16 15:00 44 I/O 09/16/16 09/16/16 09/16/16 09/17/16 09/17/16 09/17/16 07:00 15:00 23:00 07:00 15:00 23:00 Intake Total 240 ml 240 ml Balance 240 ml 240 ml Intake Oral 240 ml 240 ml # Voids 2 2 3 # Bowel Movements 0 1 Result Diagram: 09/15/16 0534 09/16/16 1225 Imaging Last Impressions Chest X-Ray 09/16/16 0000 Signed Impressions: Service Date/Time: August 11:47 - CONCLUSION: 1. Moderate-sized right pleural effusion which appears to have increased slightly in volume compared to the previous examination. 2. Cardiomegaly. 3. Tiny left pleural effusion. 4. Mild central pulmonary vascular congestion. Jason Sellers MD Objective Remarks awake and alert, comfortable in bed anicteric decreased breath sounds right base abdomen soft extremities no edema Procedures 09/17- thoracetesis- 2 L proceeded with pigtail catheter placement A/P Problem List: (1) CHF exacerbation ICD Code: I50.9 Status: Acute (2) [id number]-[id number] kidney injury ICD Code: N17.9 Status: Acute (3) Anemia ICD Code: D64.9 Status: Acute Assessment and Plan Ms. Garcia is a 75-year-old female with recurrent pleural effusions requiring thoracentesis x 4 since 03/14 CABG who presents for shortness of breath this mott her fifth hospitalization since CABG. CXR is c/w CHF. Congestive heart failure likely diastolic dysfunction with Recurrent right Pleural effusion S/P chest tube- pigtail catheter placement 09/17 - 2L out -Rafael Menard ff - Bumex 1 mg IV push twice a day - Monitor I and O's - Heart healthy diet - Echo- EF 55-60% - d/w Dr. Alvarez initially drained about -2L immediately - brownish/cloudy- fluid studies sent-- ff results consider Pleurax tunnelld catheter placement- can be place Tuesday- by IR - of patient agrees - if yes, we will continue to Hold Xarelto- will d/w Dr. Rafael singh a fib- rate improved - 70s restart on metoprolol bid with hold parameter initially bracycardic was on CArdizem 90 mg q 6 and Metoprolol q 8 as OP - discontinued - restart Xarelto in am- hold if plan to place that Pleuvax- tunnelled catheter HYpertesnion- uncontrolled - on cozaar 50 mg daily - started Hydralazine 25 mg po q 8 09/16 - amlodipine 5 mg po daily - add back Lopressor 12 .5 mg po bid with hold parameters - prn IV Hydralazine Acute on chronic kidney injury - BUN 27, creatinine 1.52, estimated GFR 34 - FF BMP in a.m. and follow trends in renal indices - Avoid nephrotoxins DM type 2 -restart long acting - Levemir at 10 units hs with SS tid and HS (at home was on 20 units hs Lantus) Anemia - Hemoglobin 10.6 and hematocrit 32.5; microcytic, hypochromic - improved from June admission (hemoccult stool negative x 2 in June) - Continue supplemental iron DVT prophylaxis - SCDs Patient would like to have an advocate to help her understand her medical conditions and options. She would also like help with advanced directives - Met with Palliative care 09/15- full code Problem Qualifiers (1) CHF exacerbation: Qualified Code: I50.9 - Acute on chronic congestive heart failure, unspecified congestive heart failure type (2) Anemia: Qualified Code: D50.9 - Iron deficiency anemia, unspecified iron deficiency anemia type Kortney Cee MD Sep 17, 2016 14:27
[2016-09-17] MEDS ORDERED: GLUCAGON 1 MG/ML VIAL OTHER PRN (15:00)
[2016-09-17] MEDS ORDERED: DEXTROSE 50% IN WATER 50 ML VIAL(D50) IV PUSH PRN (15:00)
[2016-09-17] MEDS: INSULIN ASPART SUPPLEMENTAL SCALE SQ SCH ×2 (16:00→20:02)
[2016-09-17 16:48] LABS: PLEURAL FLUID LYMPHS 43 %
--- NOTE | 2016-09-17 18:53 | HHI.PR ---
Subjective Remarks 75 YOWF with CAD,CHF, pl effusion had right chest tube placed draining hemorragic fluid Breathing better Very weak Objective Vital Signs Vital Signs Date Time Temp Pulse Resp B/P Pulse Ox O2 Delivery O2 Flow Rate FiO2 09/17/16 18:00 66 09/17/16 17:00 76 09/17/16 16:00 98.6 74 22 159/78 97 09/17/16 16:00 98.6 74 20 159/78 97 09/17/16 16:00 65 09/17/16 15:45 74 20 164/77 100 09/17/16 15:30 75 20 168/83 99 09/17/16 15:15 73 20 167/80 100 09/17/16 15:00 70 09/17/16 14:50 74 09/17/16 14:15 71 20 162/80 97 09/17/16 14:00 75 20 161/76 95 09/17/16 13:48 98.0 76 20 175/79 94 09/17/16 13:11 94 Nasal Cannula 3.00 09/17/16 12:00 74 09/17/16 11:00 78 09/17/16 10:00 72 09/17/16 09:00 76 09/17/16 08:00 98.4 77 22 167/77 93 09/17/16 08:00 72 09/17/16 08:00 Nasal Cannula 3.00 09/17/16 07:04 68 09/17/16 06:00 83 09/17/16 05:00 72 09/17/16 04:00 87 09/17/16 04:00 98.2 67 24 161/70 96 09/17/16 03:00 70 09/17/16 02:00 80 09/17/16 01:00 78 09/17/16 00:00 65 09/17/16 00:00 98.2 67 24 176/83 94 09/16/16 23:00 62 09/16/16 22:00 52 09/16/16 21:26 95 Nasal Cannula 3.00 09/16/16 21:00 60 09/16/16 20:00 63 09/16/16 20:00 Nasal Cannula 3.00 09/16/16 20:00 98.2 46 24 162/74 94 I/O 4/20/17 409/16/16 09/17/16 09/17/16 09/17/16 07:00 15:00 23:00 07:00 15:00 23:00 Intake Total 240 ml 240 ml 240 ml Output Total 700 ml Balance 240 ml 240 ml -460 ml Intake Oral 240 ml 240 ml 240 ml Output Urine Total 700 ml # Voids 2 2 3 # Bowel Movements 0 1 Result Diagram: 09/15/16 0534 09/16/16 1225 Objective Remarks GENERAL: Frail elderly WF,mild sob SKIN: Warm and dry. HEAD: Normocephalic. EYES: No scleral icterus. No injection or drainage. NECK: Supple, trachea midline. No JVD or lymphadenopathy. CARDIOVASCULAR: Regular rate and rhythm without murmurs, gallops, or rubs. RESPIRATORY: Breath sounds equal bilaterally. No accessory muscle use. Right chest tube draining GASTROINTESTINAL: Abdomen soft, non-tender, nondistended. MUSCULOSKELETAL: No cyanosis, or edema. BACK: Nontender without obvious deformity. No CVA tenderness. A/P Assessment and Plan Recurrent pl effusion, s/p right chest tube CHF Atelactesis CAD, s/p CABG DM PLAN: Chest tube to suction Diurease Supplement 02 Calixto Hall MD Sep 17, 2016 18:53
[2016-09-17] MEDS: METOPROLOL TARTRATE 25 MG TAB PO SCH (19:58)
[2016-09-17] MEDS: INSULIN DETEMIR 100 UNITS/ML VIAL SQ SCH (19:58)
[2016-09-17] MEDS: FENOFIBRATE 145 MG TAB PO SCH (19:58)
[2016-09-17] MEDS: traZODone HCL 50 MG TAB PO SCH (20:00)
[2016-09-17] MEDS: ATORVASTATIN 10 MG TAB PO SCH (20:01)
[2016-09-18] VITALS (24 sets, daily range): BP systolic 128–157; BP diastolic 58–84; PULSE 57–83; RESP 17–22; TEMP 97.6–98.8; O2SAT 94–100
[2016-09-18] MEDS: LEVOTHYROXINE SODIUM 150 MCG TAB PO SCH (05:36)
[2016-09-18] MEDS: hydrALAZINE HCL 25 MG TAB PO SCH ×3 (05:37→22:05)
[2016-09-18] MEDS: INSULIN ASPART SUPPLEMENTAL SCALE SQ SCH ×4 (06:01→21:00)
[2016-09-18] MEDS: FERROUS SULFATE 325 MG (65 MG ELEMENTAL IRON) TAB PO SCH ×2 (09:18→22:06)
[2016-09-18] MEDS: LOSARTAN 50 MG TAB PO SCH (09:18)
[2016-09-18] MEDS: amLODIPine BESYLATE 5 MG TAB PO SCH (09:18)
[2016-09-18] MEDS: PANTOPRAZOLE SOD 40 MG DELAYED RELEASE TAB PO SCH (09:18)
[2016-09-18] MEDS: DULoxetine HCl DR 60 MG CAP PO SCH (09:18)
[2016-09-18] MEDS: BUMETANIDE INJ 1 MG/4 ML VIAL IV PUSH SCH ×2 (09:18→17:45)
[2016-09-18] MEDS: MULTIVITAMINS/MINERALS THERAPEUTIC TAB PO SCH (09:18)
[2016-09-18] MEDS: METOPROLOL TARTRATE 25 MG TAB PO SCH ×2 (09:18→22:06)
[2016-09-18] MEDS: SODIUM CHLORIDE 0.9% FLUSH 10 ML FLUSH IV FLUSH SCH ×2 (09:19→22:07)
--- NOTE | 2016-09-18 09:44 | RADRPT ---
EXAM DATE/TIME: 09/18/2016 08:12 [facility] COMPARISON: CT THORACENTESIS WITH INSERTION, RIGHT, September 17, 2016, 0:00. CHEST EXPIRATION ONLY, July 22 017, 9:47. INDICATIONS : Evaluate for pneumothorax. MEDICAL HISTORY : Hypertension. Diabetes mellitus type II. Myocardial infarction. CHF. SURGICAL HISTORY : CABG. ENCOUNTER: Subsequent ACUITY: 1 day PAIN SCORE: 0/10 LOCATION: Bilateral chest FINDINGS: The patient is status post sternotomy. The heart size is enlarged. There is increased density seen throughout the lungs likely related to interstitial edema. Some degree of further increased density at the bases is present, especially on the right. There is a suspected right effusion. There is a c hest tube seen in the right lateral chest wall. This is not in the pleural space. A pneumothorax is not seen. CONCLUSION: 1. The right-sided chest tube is in the right lateral chest wall. It is not in the pleural space. There is a moderate right pleural effusion present. 2. Diffuse increased interstitial markings likely representing underlying edema. Mango Sheth MD on September 18, 2016 at 9:36 Board Certified Radiologist. This report was verified electronically.
--- NOTE | 2016-09-18 10:13 | HHI.PR ---
Subjective Remarks Follow up on recurrent pleural effusion Patient sitting on the edge of the bed, denied chest pain, she is afebrile in no acute distress Chest x-ray today showed chest to in the chest wall not in the pleural space Objective Vitals Vital Signs Date Time Temp Pulse Resp B/P Pulse Ox O2 Delivery O2 Flow Rate FiO2 09/18/16 09:00 62 09/18/16 08:29 98 Nasal Cannula 3.00 09/18/16 08:00 60 09/18/16 07:15 98 Nasal Cannula 3.00 09/18/16 07:00 98.8 60 22 128/58 98 09/18/16 07:00 60 09/18/16 06:00 57 09/18/16 05:00 64 09/18/16 04:00 Nasal Cannula 3.00 09/18/16 04:00 98.3 60 18 128/58 97 09/18/16 04:00 60 09/18/16 03:00 64 09/18/16 02:00 59 09/18/16 01:00 58 09/18/16 00:00 Nasal Cannula 3.00 09/18/16 00:00 98.1 57 18 128/66 98 09/18/16 00:00 57 09/17/16 23:00 60 09/17/16 22:36 Nasal Cannula 3.00 09/17/16 22:00 66 09/17/16 21:00 74 09/17/16 20:00 Nasal Cannula 3.00 09/17/16 20:00 68 09/17/16 20:00 98.4 68 20 149/66 99 09/17/16 18:00 66 09/17/16 17:00 76 09/17/16 16:00 98.6 74 22 159/78 97 09/17/16 16:00 98.6 74 20 159/78 97 09/17/16 16:00 65 09/17/16 15:45 74 20 164/77 100 09/17/16 15:30 75 20 168/83 99 09/17/16 15:15 73 20 167/80 100 09/17/16 15:00 70 09/17/16 14:50 74 09/17/16 14:15 71 20 162/80 97 09/17/16 14:00 75 20 161/76 95 09/17/16 13:48 98.0 76 20 175/79 94 09/17/16 13:11 94 Nasal Cannula 3.00 09/17/16 12:00 74 09/17/16 11:00 78 I/O 09/17/16 09/17/16 09/17/16 09/18/16 09/18/16 09/18/16 07:00 15:00 23:00 07:00 15:00 23:00 Intake Total 240 ml 250 ml Output Total 700 ml 1200 ml Balance -460 ml -950 ml Intake Oral 240 ml 240 ml IV Total 10 ml Output Urine Total 700 ml 900 ml Chest Tube Drainage Total 300 ml # Voids 3 # Bowel Movements 1 0 Result Diagram: 09/15/16 0534 09/16/16 1225 Objective Remarks - GENERAL: This is a frail elderly 75 years old female, in no apparent distress. SKIN: No rashes, warm and dry HEAD: Atraumatic. Normocephalic. EYES: Pupils equal round and reactive. Extraocular motions intact. No scleral icterus. ENT: Nose without bleeding, or drainage, Airway patent. NECK: Trachea midline. Supple CARDIOVASCULAR: Regular rate and rhythm without murmurs, gallops, or rubs. RESPIRATORY: Fair air entry on the left, positive crackles on the left base, chest tube in place GASTROINTESTINAL: Abdomen soft, non-tender, nondistended. Positive bowel sounds MUSCULOSKELETAL: Extremities without clubbing, cyanosis, or edema. Pedal pulses appreciated NEUROLOGICAL: Awake and alert. Moves all extremity. Normal speech.no focal neurological deficit Procedures 09/17- thoracetesis- 2 L proceeded with pigtail catheter placement A/P Problem List: (1) CHF exacerbation ICD Code: I50.9 Status: Acute (2) Pychq-gj-xmapfph kidney injury ICD Code: N17.9 Status: Acute (3) Anemia ICD Code: D64.9 Status: Acute Assessment and Plan Ms. Garcia is a 75-year-old female with recurrent pleural effusions requiring thoracentesis x 4 since 03/14 CABG who presents for shortness of breath this mott her fifth hospitalization since CABG. CXR is c/w CHF. Congestive heart failure likely diastolic dysfunction with Recurrent right Pleural effusion S/P chest tube- pigtail catheter placement 09/17 - 2L out - BNP increased from 275- 551, monitor BMP and BNP - Dr, Rafael ff - Bumex 1 mg IV push twice a day - Monitor I and O's - Heart healthy diet - Echo- EF 55-60% - d/w Dr. Alvarez initially drained about -2L immediately - brownish/cloudy- fluid studies sent-- ff results consider Pleurax tunnelld catheter placement- can be place Tuesday- by IR - of patient agrees - if yes, we will continue to Hold Xarelto- will d/w Dr. Rafael Sneed a fib- rate improved - 70s restart on metoprolol bid with hold parameter initially bracycardic was on CArdizem 90 mg q 6 and Metoprolol q 8 as OP - discontinued - restart Xarelto in am- hold if plan to place that Pleuvax- tunnelled catheter Hypertension- uncontrolled - on cozaar 50 mg daily - started Hydralazine 25 mg po q 8 09/16 - amlodipine 5 mg po daily - add back Lopressor 12 .5 mg po bid with hold parameters - prn IV Hydralazine Acute on chronic kidney injury -BUN/creatinine trending down, follow BMP Avoid nephrotoxins DM type 2 -long acting - Levemir at 10 units hs with SS tid and HS (at home was on 20 units hs Lantus) Anemia - Hemoglobin 10.6 and hematocrit 32.5; microcytic, hypochromic - improved from June admission (hemoccult stool negative x 2 in June) - Continue supplemental iron DVT prophylaxis - SCDs Problem Qualifiers (1) CHF exacerbation: Qualified Code: I50.9 - Acute on chronic congestive heart failure, unspecified congestive heart failure type (2) Anemia: Qualified Code: D50.9 - Iron deficiency anemia, unspecified iron deficiency anemia type Eva Menjivar MD Sep 18, 2016 10:13
[2016-09-18] MEDS ORDERED: ACETAMINOPHEN/HYDROcodone 325 MG/7.5 MG TAB PO PRN (10:15)
[2016-09-18] MEDS ORDERED: MORPHINE SULFATE 4 MG/ML INJ IV PRN ×2 (10:15)
[2016-09-18] MEDS ORDERED: ACETAMINOPHEN/HYDROcodone 325 MG/5 MG TAB PO PRN (11:00)
[2016-09-18] MEDS ORDERED: LIDOCAINE 1%/EPINEPHrine 1:100,000 SOLN 20 ML VIAL ONE (15:59)
[2016-09-18] MEDS ORDERED: fentaNYL CITRATE 250 MCG/5 ML AMP ONE (16:58)
[2016-09-18] MEDS ORDERED: LORazepam 2 MG/ML VIAL ONE (16:58)
--- NOTE | 2016-09-18 17:52 | RADRPT ---
EXAM DATE/TIME: 09/18/2016 17:15 [facility] COMPARISON: CT THORAX W/O CONTRAST, July 14, 2016, 13:34. INDICATIONS : Status post chest tube removal. RADIATION DOSE: 14.20 CTDIvol (mGy) MEDICAL HISTORY : Chronic obstructive pulmonary disease. Myocardial infarction. Congestive heart failure. SURGICAL HISTORY : CABG ENCOUNTER: Initial ACUITY: 1 day PAIN SCALE: 0/10 LOCATION: Bilateral chest TECHNIQUE: Volumetric scanning of the chest was performed. Using automated exposure control and adjustment of t he mA and/or kV according to patient size, radiation dose was kept as low as reasonably achievable to obtain optimal diagnostic quality images. FINDINGS: LUNGS: Bibasilar areas of consolidation, right left. This is most significant in the right middle lobe. The upper portions of the lungs were not scanned on the prebiopsy exam. PLEURAE: Bilateral pleural effusions persist. However, the right-sided effusion is significantly smaller and i s actually smaller than the existing preprocedural left-sided effusion. There are tiny right-sided pn eumothorax. MEDIASTINUM: Heart size is prominent. Calcification of the aortic root. AXILLAE: Within normal limits. No lymphadenopathy. MUSCULOSKELETAL: Within normal limits for patient age. MISCELLANEOUS: The visualized upper abdominal organs demonstrate no acute abnormality. Surgical jose alfredo in the left upper abdominal quadrant are characteristic of prior gastric bypass CONCLUSION: 1. Persistent bilateral pleural effusions. However, the previously drained right side is actually sma ller than the left on the current exam. I do not believe that there was sufficient fluid to warrant r eplacement of the previous chest tube at this time. 2. Bibasilar airspace disease, right greater than left. This is nonspecific and may be atelectatic in nature. 3. Stable cardiomegaly. 4. Very tiny right-sided pneumothorax. Govind Mccormick MD on September 18, 2016 at 17:47 Board Certified Radiologist. This report was verified electronically.
[2016-09-18] MEDS: INSULIN DETEMIR 100 UNITS/ML VIAL SQ SCH (21:00)
[2016-09-18] MEDS: FENOFIBRATE 145 MG TAB PO SCH (22:06)
[2016-09-18] MEDS: ATORVASTATIN 10 MG TAB PO SCH (22:06)
[2016-09-18] MEDS: traZODone HCL 50 MG TAB PO SCH (22:06)
[2016-09-19] VITALS (17 sets, daily range): BP systolic 106–132; BP diastolic 46–64; PULSE 56–79; RESP 16–20; TEMP 97.9–98.5; O2SAT 90–98
[2016-09-19] MEDS: LEVOTHYROXINE SODIUM 150 MCG TAB PO SCH (06:00)
[2016-09-19] MEDS: hydrALAZINE HCL 25 MG TAB PO SCH ×3 (06:00→22:41)
[2016-09-19] MEDS: INSULIN ASPART SUPPLEMENTAL SCALE SQ SCH ×4 (06:35→22:42)
[2016-09-19] MEDS: MULTIVITAMINS/MINERALS THERAPEUTIC TAB PO SCH (09:00)
[2016-09-19] MEDS: PANTOPRAZOLE SOD 40 MG DELAYED RELEASE TAB PO SCH (09:10)
[2016-09-19] MEDS: METOPROLOL TARTRATE 25 MG TAB PO SCH ×2 (09:10→21:29)
[2016-09-19] MEDS: LOSARTAN 50 MG TAB PO SCH (09:10)
[2016-09-19] MEDS: SODIUM CHLORIDE 0.9% FLUSH 10 ML FLUSH IV FLUSH SCH ×2 (09:10→20:22)
[2016-09-19] MEDS: FERROUS SULFATE 325 MG (65 MG ELEMENTAL IRON) TAB PO SCH ×2 (09:10→20:22)
[2016-09-19] MEDS: DULoxetine HCl DR 60 MG CAP PO SCH (09:10)
[2016-09-19] MEDS: amLODIPine BESYLATE 5 MG TAB PO SCH (09:11)
[2016-09-19] MEDS: BUMETANIDE INJ 1 MG/4 ML VIAL IV PUSH SCH ×2 (09:11→16:54)
[2016-09-19 15:53] LABS: BICARBONATE 35.5 MEQ/L (21.0-32.0); POTASSIUM 3.8 MEQ/L (3.5-5.1)
--- NOTE | 2016-09-19 16:18 | HHI.PR ---
Subjective Remarks Follow up on recurrent pleural effusion and CHF Still feeling short of breath Afebrile, chest tube removed Objective Vitals Vital Signs Date Time Temp Pulse Resp B/P Pulse Ox O2 Delivery O2 Flow Rate FiO2 09/19/16 12:54 97.9 56 18 111/58 98 09/19/16 12:00 63 09/19/16 11:00 98.3 64 20 132/64 97 09/19/16 11:00 98 Nasal Cannula 3.00 09/19/16 11:00 67 09/19/16 10:00 65 09/19/16 09:00 76 09/19/16 08:00 78 09/19/16 07:00 73 09/19/16 07:00 98.1 71 17 118/60 98 09/19/16 07:00 98 Nasal Cannula 3.00 09/19/16 06:00 61 09/19/16 05:00 79 09/19/16 04:00 65 09/19/16 03:00 70 09/19/16 03:00 98.1 69 20 106/46 96 09/19/16 03:00 98 Nasal Cannula 3.00 09/19/16 02:00 64 09/19/16 01:00 73 09/19/16 00:00 67 09/19/16 00:00 98.5 72 20 112/57 98 09/19/16 00:00 98 Nasal Cannula 3.00 09/18/16 23:00 66 09/18/16 22:00 76 09/18/16 21:00 76 09/18/16 20:00 78 09/18/16 20:00 98.2 78 20 140/68 94 09/18/16 20:00 94 Nasal Cannula 3.00 09/18/16 19:00 77 09/18/16 18:00 77 I/O 09/18/16 09/18/16 09/18/16 09/19/16 09/19/16 09/19/16 07:00 15:00 23:00 07:00 15:00 23:00 Intake Total 250 ml 480 ml 240 ml 120 ml Output Total 1200 ml 500 ml 400 ml 100 ml Balance -950 ml -20 ml -160 ml 20 ml Intake Oral 240 ml 480 ml 240 ml 120 ml IV Total 10 ml 0 ml Output Urine Total 900 ml 500 ml 400 ml 100 ml Chest Tube Drainage Total 300 ml # Bowel Movements 0 0 0 Result Diagram: 09/15/16 0534 09/19/16 1410 Objective Remarks - GENERAL: This is a frail elderly 75 years old female, in no apparent distress. SKIN: No rashes, warm and dry HEAD: Atraumatic. Normocephalic. EYES: Pupils equal round and reactive. Extraocular motions intact. No scleral icterus. ENT: Nose without bleeding, or drainage, Airway patent. NECK: Trachea midline. Supple CARDIOVASCULAR: Regular rate and rhythm without murmurs, gallops, or rubs. RESPIRATORY: Fair air entry on the left, positive crackles on the left base, chest tube removed GASTROINTESTINAL: Abdomen soft, non-tender, nondistended. Positive bowel sounds MUSCULOSKELETAL: Extremities without clubbing, cyanosis, or edema. Pedal pulses appreciated NEUROLOGICAL: Awake and alert. Moves all extremity. Normal speech.no focal neurological deficit Procedures 09/17- thoracetesis- 2 L proceeded with pigtail catheter placement A/P Problem List: (1) CHF exacerbation ICD Code: I50.9 Status: Acute (2) Wdkxd-[id number]-pwilltz kidney injury ICD Code: N17.9 Status: Acute (3) Anemia ICD Code: D64.9 Status: Acute Assessment and Plan 09/19: BMP and BNP is still pending, continue current management, chest tube removed, PT OT Ms. Garcia is a 75-year-old female with recurrent pleural effusions requiring thoracentesis x 4 since 03/14 CABG who presents for shortness of breath this mott her fifth hospitalization since CABG. CXR is c/w CHF. Congestive heart failure likely diastolic dysfunction with Recurrent right Pleural effusion S/P chest tube- pigtail catheter placement 09/17 - 2L out - BNP 275- 551, monitor BMP and BNP still pending today - Rafael Menard ff - Bumex 1 mg IV push twice a day - Monitor I and O's - Heart healthy diet - Echo- EF 55-60% - d/w Dr. Alvarez initially drained about -2L immediately - brownish/cloudy- fluid studies sent-- ff results consider Pleurax tunnelld catheter placement- can be place Tuesday- by IR - of patient agrees - if yes, we will continue to Hold Xarelto- will d/w Dr. Hall Chronic a fib- rate improved - 70s restart on metoprolol bid with hold parameter initially brajose antoniocardic was on CArdizem 90 mg q 6 and Metoprolol q 8 as OP - discontinued - restart Xarelto in am- hold if plan to place that Pleuvax- tunnelled catheter Hypertension- uncontrolled - on cozaar 50 mg daily - started Hydralazine 25 mg po q 8 09/16 - amlodipine 5 mg po daily - add back Lopressor 12 .5 mg po bid with hold parameters - prn IV Hydralazine Acute on chronic kidney injury -BUN/creatinine trending down, follow BMP Avoid nephrotoxins DM type 2 -long acting - Levemir at 10 units hs with SS tid and HS (at home was on 20 units hs Lantus) Anemia - Hemoglobin 10.6 and hematocrit 32.5; microcytic, hypochromic - improved from June admission (hemoccult stool negative x 2 in June) - Continue supplemental iron DVT prophylaxis - SCDs Discharge Planning when Cleared by associate professor of forestry Problem Qualifiers (1) CHF exacerbation: Qualified Code: I50.9 - Acute on chronic congestive heart failure, unspecified congestive heart failure type (2) Anemia: Qualified Code: D50.9 - Iron deficiency anemia, unspecified iron deficiency anemia type Eva Menjivar MD Sep 19, 2016 16:17 Eva Menjivar MD Sep 19, 2016 16:17
[2016-09-19] MEDS: traZODone HCL 50 MG TAB PO SCH (20:22)
[2016-09-19] MEDS: ATORVASTATIN 10 MG TAB PO SCH (20:23)
[2016-09-19] MEDS: FENOFIBRATE 145 MG TAB PO SCH (20:24)
[2016-09-19] MEDS: INSULIN DETEMIR 100 UNITS/ML VIAL SQ SCH (20:24)
[2016-09-20] VITALS (8 sets, daily range): BP systolic 125–159; BP diastolic 57–71; PULSE 60–80; RESP 18–28; TEMP 97.7–98.7; O2SAT 91–98
[2016-09-20] MEDS: INSULIN ASPART SUPPLEMENTAL SCALE SQ SCH ×4 (04:43→22:16)
[2016-09-20] MEDS: LEVOTHYROXINE SODIUM 150 MCG TAB PO SCH (04:43)
[2016-09-20] MEDS: hydrALAZINE HCL 25 MG TAB PO SCH ×3 (04:43→22:00)
[2016-09-20 06:54] LABS: BICARBONATE 35.8 MEQ/L (21.0-32.0); POTASSIUM 3.6 MEQ/L (3.5-5.1)
[2016-09-20] MEDS: FERROUS SULFATE 325 MG (65 MG ELEMENTAL IRON) TAB PO SCH ×2 (07:54→20:39)
[2016-09-20] MEDS: DULoxetine HCl DR 60 MG CAP PO SCH (07:55)
[2016-09-20] MEDS: amLODIPine BESYLATE 5 MG TAB PO SCH (07:55)
[2016-09-20] MEDS: MULTIVITAMINS/MINERALS THERAPEUTIC TAB PO SCH (07:55)
[2016-09-20] MEDS: LOSARTAN 50 MG TAB PO SCH (07:55)
[2016-09-20] MEDS: PANTOPRAZOLE SOD 40 MG DELAYED RELEASE TAB PO SCH (07:55)
[2016-09-20] MEDS: METOPROLOL TARTRATE 25 MG TAB PO SCH ×2 (07:55→22:15)
[2016-09-20] MEDS: BUMETANIDE INJ 1 MG/4 ML VIAL IV PUSH SCH ×2 (08:01→17:09)
[2016-09-20] MEDS: SODIUM CHLORIDE 0.9% FLUSH 10 ML FLUSH IV FLUSH SCH ×2 (08:08→20:38)
[2016-09-20] MEDS ORDERED: ERGOCALCIFEROL (VIT D2) 50,000 UNIT CAP PO SCH (09:00)
--- NOTE | 2016-09-20 11:23 | HHI.HP ---
HPI Primary Care Physician Remigio Lee DO History of Present Illness 75 y/o F with pmhx significant for CAD s/p CABG x 3 in 2016, atrial fibrillation , moderate to severe MR, preserved LV systolic function, HTN and DM with previous admission because of SOB/pleural effusions. She has history of pleural effusion, multiple thoracenteses done in the past. She had a recent coronary artery disease status post coronary artery bypass graft x3 done by Dr. Mi Blackwell. She reports worsening of shortness of breath associated with orthopnea and swelling in the legs for the last week. Denies fever, chills, palpitations or chest pain. Chest x-ray showed worsening of her right pleural effusion. She underwent thoracentesis. cardiology has been consulted to help in the management of MR. Currently she reports feeling better, denies SOB and is ambulating without difficulty. Review of Systems Consitutional: DENIES: Fatigue, Fever, Chills, Weight gain, Weight loss Eyes: DENIES: Amaurosis Fugax, Change in vision HEENT: DENIES: Lightheadedness, Change in hearing Respiratory: COMPLAINS OF: See HPI, Shortness of breath, DENIES: Cough, Snoring, Wheezing, Sputum production Cardiovascular: DENIES: See HPI, Chest pain, Palpitations, Syncope, Tachycardia Gastrointestinal: DENIES: Nausea, Vomiting, Change in bowel habits, Reflux, Bloody stools, Melena Genitourinary: DENIES: Urinary incontinence, Difficulty voiding Integumentary: DENIES: Rash Neurologic: DENIES: Tingling or numbness, Memory problems, Poor Balance, Stroke symptoms Musculoskeletal: DENIES: Joint pain, Muscle pain, Limited range of motion, Back pain Psychiatric: DENIES: Anxiety, Depression, Sleep disturbances Hematologic: DENIES: Bruising tendencies, Bleeding tendencies Endocrine: DENIES: Weight gain, Weight loss, Thyroid disease Past Family Social History 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 CAD status post coronary artery bypass graftx3 2. History of PR status post stent placement, 3. Moderate MR 4. Hypertension, 5. Diabetes mellitus, Past Surgical History CABG Thoracentesis Reported Medications Reported Meds & Active Scripts Active Losartan (Losartan Potassium) 50 Mg Tab 50 Mg PO DAILY Xarelto (Rivaroxaban) 15 Mg Tab 15 Mg PO DAILY Ferrous Sulfate 325 Mg Tab 325 Mg PO BID Oxygen tank (Oxygen) 1 Ea Tank 2 Liter JUANJOSE.CANULA CONTINUOUS Oxygen Concentrator Portable Gaseous 2 L/min via Nasal Cannula Continuous For 99 months Bumetanide 1 Mg Tab 1 Mg PO BID@ Trazodone (Trazodone HCl) 50 Mg Tab 50 Mg PO HS 30 Days Klor-Con 10 (Potassium Chloride) 10 Meq Tab 10 Meq PO DAILY 7 Days Pantoprazole (Pantoprazole Sodium) 40 Mg Tab 40 Mg PO DAILY 30 Days Thera M Plus (Multivitamins/Minerals Therapeutic) 1 Tab 1 Tab PO DAILY [address] (Duloxetine HCl) 60 Mg Capdr 120 Mg PO DAILY 30 Days Lipitor (Atorvastatin Calcium) 10 Mg Tab 10 Mg PO HS 30 Days Aspirin Low Strength (Aspirin) 81 Mg Chew 81 Mg PO DAILY 30 Days Xanax (Alprazolam) 0.25 Mg Tab 0.25 Mg PO Q8HR PRN 30 Days Reported Metoprolol Tartrate 50 Mg Tab 50 Mg PO DAILY Diltiazem (Diltiazem HCl) 90 Mg Tab 90 Mg PO Q6 HR Novolog Inj (Insulin Aspart) 1,000 Unit/10 Ml Vial 2-10 Units SQ ACHS Sliding Scale Nitroglycerin SL (Nitroglycerin) 0.4 Mg Subl 0.4 Mg SL DIRECTED PRN ONE TABLET UNDER THE TONGUE NEEDED FOR CHEST PAIN, MAY REPEAT EVERY FIVE MINUTES FOR A TOTAL OF 3 DOSES OR CALL 911 IF NO RELIEF Valtrex (Valacyclovir HCl) 1 Gm Tab 1 Gm PO DAILY Drisdol (Ergocalciferol) 50,000 Unit Cap 50,000 Units PO WEEKLY ON MONDAYS Cyanocobalamin Inj (Cyanocobalamin) 1,000 Mcg/Ml Inj 1,000 Mcg IM EVERY 2 WEEKS Lantus Inj (Insulin Glargine) 100 Unit/Ml Inj 17 Units SQ HS Levothyroxine (Levothyroxine Sodium) 150 Mcg Tab 150 Mcg PO DAILY@0600 Fenofibrate 160 Mg Tab 160 Mg PO HS Active Ordered Medications Current Medications Medications (Trade) Dose Ordered Sig/Seema Route Start Time Stop Time Status Last Admin (NS Flush) 2 ml UNSCH PRN IV FLUSH 09/14/16 22:00 (NS Flush) 2 ml BID IV FLUSH 09/15/16 09:00 09/20/16 08:08 (Narcan Inj) 0.4 mg UNSCH PRN IV 09/14/16 22:00 (Bumex Inj) 1 mg BID@,18 IV PUSH 09/15/16 09:00 09/20/16 08:01 (Lipitor) 10 mg HS PO 09/15/16 21:00 09/19/16 20:23 (Cymbalta Dr) 120 mg DAILY PO 09/16/16 09:00 09/20/16 07:55 (Drisdol) 50,000 units Q7D PO 09/20/16 09:00 09/20/16 07:55 (Ferrous Sulfate) 325 mg BID PO 09/15/16 21:00 09/19/16 09:10 (Synthroid) 150 mcg DAILY@0600 PO 09/16/16 06:00 09/20/16 04:43 (Cozaar) 50 mg DAILY PO 09/16/16 09:00 09/20/16 07:55 (Theragran M Tab) 1 tab DAILY PO 09/16/16 09:00 09/20/16 07:55 (Protonix) 40 mg DAILY PO 09/16/16 09:00 09/20/16 07:55 (Desyrel) 50 mg HS PO 09/15/16 21:00 09/19/16 20:22 (Tricor) 145 mg HS PO 09/15/16 21:00 09/19/16 20:24 (Norvasc) 5 mg DAILY PO 09/16/16 09:00 09/20/16 07:55 (Apresoline Inj) 10 mg Q8HR PRN IV PUSH 09/16/16 01:45 09/16/16 23:28 (Apresoline) 25 mg Q8HR PO 09/16/16 14:00 09/20/16 04:43 (Lopressor) 25 mg Q12HR PO 09/17/16 21:00 09/20/16 07:55 (Levemir Inj) 10 units HS SQ 09/17/16 21:00 09/19/16 20:24 (D50w (Vial) Inj) 25 ml UNSCH PRN IV PUSH 09/17/16 15:00 (Glucagon Inj) 1 mg UNSCH PRN OTHER 09/17/16 15:00 (Ten Sleep 5-325 Mg) 1 tab Q4H PRN PO 09/18/16 11:00 09/18/16 10:47 (Ten Sleep 7.5-325 Mg) 1 tab Q4H PRN PO 09/18/16 10:15 (Morphine Inj) 1 mg Q4H PRN IV 09/18/16 10:15 (Morphine Inj) 2 mg Q4H PRN IV 09/18/16 10:15 Physical Exam Vital Signs Vital Signs Date Time Temp Pulse Resp B/P Pulse Ox O2 Delivery O2 Flow Rate FiO2 09/20/16 09:56 96 Nasal Cannula 3.00 09/20/16 08:15 Nasal Cannula 3.00 09/20/16 08:00 98.7 66 28 153/70 96 09/20/16 04:09 98.1 80 20 126/70 93 09/20/16 00:00 97.8 79 20 128/66 91 09/19/16 20:00 98.4 74 20 132/63 90 09/19/16 20:00 68 09/19/16 19:30 90 Nasal Cannula 3.00 09/19/16 16:00 98.5 57 16 114/56 96 09/19/16 12:54 97.9 56 18 111/58 98 09/19/16 12:00 63 Physical Exam GENERAL: Well-nourished, well-developed patient. SKIN: Warm and dry. HEAD: Normocephalic. EYES: No scleral icterus. No injection or drainage. NECK: Supple, trachea midline. No JVD or lymphadenopathy. CARDIOVASCULAR: Irr Irr 2/6 SID murmur, no gallops, or rubs. RESPIRATORY: Breath sounds equal bilaterally. Bilateral rales GASTROINTESTINAL: Abdomen soft, non-tender, nondistended. EXTREMITIES: No cyanosis, or edema. NEUROLOGICAL: Awake, alert, and oriented x 3. Non-focal. Laboratory Laboratory Tests Test 09/19/16 09/20/16 14:10 05:48 Sodium Level 136 137 Potassium Level 3.8 3.6 Chloride Level 93 93 Carbon Dioxide Level 35.5 35.8 Anion Gap 8 8 Blood Urea Nitrogen 35 38 Creatinine 1.28 1.43 Estimat Glomerular Filtration 41 36 Rate Random Glucose 51 134 Calcium Level 9.2 9.1 B-Type Natriuretic Peptide 320 424 Date/Time Procedure Status Source Growth 09/17/16 13:07 Gram Stain - Final Complete Fluid Pleural Fluid 09/17/16 13:07 Body Fluid Culture - Final Complete Fluid Pleural Fluid NO GROWTH IN 72 HRS.--AEROBICALLY OR ... 09/15/16 18:00 Cancelled Nasopharyngeal Result Diagram: 09/20/16 0548 Imaging Last Impressions Chest CT 09/18/16 1700 Signed Impressions: Service Date/Time: Sunday, September 18, 2016 17:15 - CONCLUSION: 1. Persistent bilateral pleural effusions. However, the previously drained right side is actually smaller than the left on the current exam. I do not believe that there was sufficient fluid to warrant replacement of the previous chest tube at this time. 2. Bibasilar airspace disease, right greater than left. This is nonspecific and may be atelectatic in nature. 3. Stable cardiomegaly. 4. Very tiny right-sided pneumothorax. Govind Mccormick MD Chest X-Ray 09/18/16 0000 Signed Impressions: Service Date/Time: Sunday, September 18, 2016 08:12 - CONCLUSION: 1. The right-sided chest tube is in the right lateral chest wall. It is not in the pleural space. There is a moderate right pleural effusion present. 2. Diffuse increased interstitial markings likely representing underlying edema. Mango Sheth MD Assessment and Plan Problem List: (1) Pleural effusion Assessment and Plan: SOB in the setting of recurrent pleural effusion. Moderate MR with preserved LV systolic function. Recommendations: Transition to PO Lasix Increase Cozaar to 100mg Consider CT surgery consult for Pleurodesis if pleural effusion return Cont aggressive medical management for CAD Cont rate control and OAC for Afib Encourage ambulation and incentive spirometry Thank you for the opportunity to take par in the care of this patient Sign off (2) Coronary artery disease (3) Atrial fibrillation (4) Dyspnea (5) Recurrent left pleural effusion Harsh Mckeon MD Sep 20, 2016 11:23
[2016-09-20] MEDS ORDERED: BISACODYL 10 MG SUPP RECTAL PRN (17:30)
--- NOTE | 2016-09-20 20:12 | HHI.PR ---
Subjective Remarks 75 YOWF with CAD,CHF, pl effusion Breathing better Very weak Chest tube removed Objective Vital Signs Vital Signs Date Time Temp Pulse Resp B/P Pulse Ox O2 Delivery O2 Flow Rate FiO2 09/20/16 18:27 96 Nasal Cannula 3.00 09/20/16 16:00 97.7 63 24 125/57 97 09/20/16 12:00 97.7 71 25 142/64 98 09/20/16 09:56 96 Nasal Cannula 3.00 09/20/16 08:15 Nasal Cannula 3.00 09/20/16 08:00 98.7 66 28 153/70 96 09/20/16 04:09 98.1 80 20 126/70 93 09/20/16 00:00 97.8 79 20 128/66 91 I/O 09/19/16 09/19/16 09/19/16 09/20/16 09/20/16 09/20/16 07:00 15:00 23:00 07:00 15:00 23:00 Intake Total 240 ml 120 ml 350 ml 240 ml 480 ml Output Total 400 ml 100 ml 600 ml 500 ml Balance -160 ml 20 ml -250 ml -260 ml 480 ml Intake Oral 240 ml 120 ml 350 ml 240 ml 480 ml IV Total 0 ml Output Urine Total 400 ml 100 ml 600 ml 500 ml # Voids 4 # Bowel Movements 0 0 0 0 4 Result Diagram: 09/20/16 0548 Objective Remarks GENERAL: Frail elderly WF,mild sob SKIN: Warm and dry. HEAD: Normocephalic. EYES: No scleral icterus. No injection or drainage. NECK: Supple, trachea midline. No JVD or lymphadenopathy. CARDIOVASCULAR: Regular rate and rhythm without murmurs, gallops, or rubs. RESPIRATORY: Breath sounds equal bilaterally. No accessory muscle use. Right chest tube draining GASTROINTESTINAL: Abdomen soft, non-tender, nondistended. MUSCULOSKELETAL: No cyanosis, or edema. BACK: Nontender without obvious deformity. No CVA tenderness. A/P Assessment and Plan Recurrent pl effusion, s/p right chest tube CHF Atelactesis CAD, s/p CABG DM PLAN: cardiology evaluating pt. Diurease Supplement 02 Ambulate. Calixto Hall MD Sep 20, 2016 20:12
[2016-09-20] MEDS: DOCUSATE SODIUM 50 MG/SENNA 8.6 MG TAB PO SCH (20:39)
[2016-09-20] MEDS: traZODone HCL 50 MG TAB PO SCH (20:39)
[2016-09-20] MEDS: ATORVASTATIN 10 MG TAB PO SCH (20:40)
[2016-09-20] MEDS: FENOFIBRATE 145 MG TAB PO SCH (20:41)
[2016-09-20] MEDS: INSULIN DETEMIR 100 UNITS/ML VIAL SQ SCH (20:41)
[2016-09-21] VITALS: BP 148/82; PULSE 70; RESP 20; TEMP 97.8; O2SAT 94
[2016-09-21 04:00] VITALS: BP 139/79; PULSE 76; RESP 20; TEMP 98.4; O2SAT 95
[2016-09-21] MEDS: hydrALAZINE HCL 25 MG TAB PO SCH ×3 (04:56→23:31)
[2016-09-21] MEDS: LEVOTHYROXINE SODIUM 150 MCG TAB PO SCH (04:56)
[2016-09-21] MEDS: INSULIN ASPART SUPPLEMENTAL SCALE SQ SCH ×4 (04:56→20:44)
[2016-09-21 08:00] VITALS: BP 161/70; PULSE 61; RESP 17; TEMP 97.4; O2SAT 93
[2016-09-21] MEDS: MULTIVITAMINS/MINERALS THERAPEUTIC TAB PO SCH (08:28)
[2016-09-21] MEDS: DULoxetine HCl DR 60 MG CAP PO SCH (08:28)
[2016-09-21] MEDS: amLODIPine BESYLATE 5 MG TAB PO SCH (08:28)
[2016-09-21] MEDS: METOPROLOL TARTRATE 25 MG TAB PO SCH ×2 (08:28→20:38)
[2016-09-21] MEDS: DOCUSATE SODIUM 50 MG/SENNA 8.6 MG TAB PO SCH ×2 (08:28→20:37)
[2016-09-21] MEDS: BUMETANIDE INJ 1 MG/4 ML VIAL IV PUSH SCH (08:32)
[2016-09-21] MEDS: LOSARTAN 50 MG TAB PO SCH (08:32)
[2016-09-21] MEDS: PANTOPRAZOLE SOD 40 MG DELAYED RELEASE TAB PO SCH (08:32)
[2016-09-21] MEDS: FERROUS SULFATE 325 MG (65 MG ELEMENTAL IRON) TAB PO SCH ×2 (08:38→20:37)
[2016-09-21] MEDS: SODIUM CHLORIDE 0.9% FLUSH 10 ML FLUSH IV FLUSH SCH ×2 (08:38→20:44)
[2016-09-21 09:36] VITALS: O2SAT 94
--- NOTE | 2016-09-21 09:52 | HHI.PR ---
Subjective Remarks delayed entry note from 09/20 Patient seen and examined, reports she feels okay, stable, her 2-D echo showed moderate to severe MR with severe pulmonary hypertension and moderate TR, discussed with the patient will consult cardiology she sees Dr. Chan Objective Vitals Vital Signs Date Time Temp Pulse Resp B/P Pulse Ox O2 Delivery O2 Flow Rate FiO2 09/21/16 09:36 94 Nasal Cannula 3.00 09/21/16 08:00 97.4 61 17 161/70 93 09/21/16 07:03 Nasal Cannula 3.00 09/21/16 04:00 98.4 76 20 139/79 95 09/21/16 00:00 97.8 70 20 148/82 94 09/20/16 20:45 Nasal Cannula 3.00 09/20/16 20:00 98.0 69 18 159/71 93 09/20/16 20:00 60 09/20/16 18:27 96 Nasal Cannula 3.00 09/20/16 16:00 97.7 63 24 125/57 97 09/20/16 12:00 97.7 71 25 142/64 98 09/20/16 09:56 96 Nasal Cannula 3.00 I/O 09/20/16 09/20/16 09/20/16 09/21/16 09/21/16 09/21/16 07:00 15:00 23:00 07:00 15:00 23:00 Intake Total 240 ml 480 ml 480 ml Output Total 500 ml 450 ml Balance -260 ml 480 ml 30 ml Intake Oral 240 ml 480 ml 480 ml Output Urine Total 500 ml 450 ml # Voids 4 # Bowel Movements 0 4 0 Result Diagram: 09/20/16 0548 Objective Remarks - GENERAL: This is a frail elderly 75 years old female, in no apparent distress. SKIN: No rashes, warm and dry HEAD: Atraumatic. Normocephalic. EYES: Pupils equal round and reactive. Extraocular motions intact. No scleral icterus. ENT: Nose without bleeding, or drainage, Airway patent. NECK: Trachea midline. Supple CARDIOVASCULAR: Regular rate and rhythm without murmurs, gallops, or rubs. RESPIRATORY: Fair air entry on the left, positive crackles on the left base, chest tube removed GASTROINTESTINAL: Abdomen soft, non-tender, nondistended. Positive bowel sounds MUSCULOSKELETAL: Extremities without clubbing, cyanosis, or edema. Pedal pulses appreciated NEUROLOGICAL: Awake and alert. Moves all extremity. Normal speech.no focal neurological deficit Procedures 09/17- thoracetesis- 2 L proceeded with pigtail catheter placement A/P Problem List: (1) CHF exacerbation ICD Code: I50.9 Status: Acute (2) Fbhxe-ar-[id number] kidney injury ICD Code: N17.9 Status: Acute (3) Anemia ICD Code: D64.9 Status: Acute Assessment and Plan 09/19: BMP and BNP is still pending, continue current management, chest tube removed, PT OT 09/20: 2-D echo shows severe MR with severe PAH and moderate TR most likely causing her problems will consult cardiology. Ms. Garcia is a 75-year-old female with recurrent pleural effusions requiring thoracentesis x 4 since 03/14 CABG who presents for shortness of breath this mott her fifth hospitalization since CABG. CXR is c/w CHF. Congestive heart failure likely diastolic dysfunction with Recurrent right Pleural effusion S/P chest tube- pigtail catheter placement 09/17 - 2L out - BNP 275- 551, monitor BMP and BNP still pending today - Rafael Menard ff - Bumex 1 mg IV push twice a day - Monitor I and O's - Heart healthy diet - Echo- EF 55-60% - d/w Dr. Alvarez initially drained about -2L immediately - brownish/cloudy- fluid studies sent-- ff results consider Pleurax tunnelld catheter placement- can be place Tuesday- by IR - of patient agrees - if yes, we will continue to Hold Xarelto- will d/w Dr. Hall Chronic a fib- rate improved - 70s restart on metoprolol bid with hold parameter initially bracycardic was on CArdizem 90 mg q 6 and Metoprolol q 8 as OP - discontinued - restart Xarelto in am- hold if plan to place that Pleuvax- tunnelled catheter Hypertension- uncontrolled - on cozaar 50 mg daily - started Hydralazine 25 mg po q 8 09/16 - amlodipine 5 mg po daily - add back Lopressor 12 .5 mg po bid with hold parameters - prn IV Hydralazine Acute on chronic kidney injury -BUN/creatinine trending down, follow BMP Avoid nephrotoxins DM type 2 -long acting - Levemir at 10 units hs with SS tid and HS (at home was on 20 units hs Lantus) Anemia - Hemoglobin 10.6 and hematocrit 32.5; microcytic, hypochromic - improved from June admission (hemoccult stool negative x 2 in June) - Continue supplemental iron DVT prophylaxis - SCDs Discharge Planning when Cleared by linux kernel developer Problem Qualifiers (1) CHF exacerbation: Qualified Code: I50.9 - Acute on chronic congestive heart failure, unspecified congestive heart failure type (2) Anemia: Qualified Code: D50.9 - Iron deficiency anemia, unspecified iron deficiency anemia type Eva Menjivar MD Sep 21, 2016 09:52
--- NOTE | 2016-09-21 09:57 | HHI.PR ---
Subjective Remarks Patient sitting on her chair with oxygen on Denied fever or chills or chest pain She told me she was told a month ago that her heart is strong, she is confused how come " it is not now" Objective Vitals Vital Signs Date Time Temp Pulse Resp B/P Pulse Ox O2 Delivery O2 Flow Rate FiO2 09/21/16 09:36 94 Nasal Cannula 3.00 09/21/16 08:00 97.4 61 17 161/70 93 09/21/16 07:03 Nasal Cannula 3.00 09/21/16 04:00 98.4 76 20 139/79 95 09/21/16 00:00 97.8 70 20 148/82 94 09/20/16 20:45 Nasal Cannula 3.00 09/20/16 20:00 98.0 69 18 159/71 93 09/20/16 20:00 60 09/20/16 18:27 96 Nasal Cannula 3.00 09/20/16 16:00 97.7 63 24 125/57 97 09/20/16 12:00 97.7 71 25 142/64 98 09/20/16 09:56 96 Nasal Cannula 3.00 I/O 09/20/16 09/20/16 09/20/16 09/21/16 09/21/16 09/21/16 07:00 15:00 23:00 07:00 15:00 23:00 Intake Total 240 ml 480 ml 480 ml Output Total 500 ml 450 ml Balance -260 ml 480 ml 30 ml Intake Oral 240 ml 480 ml 480 ml Output Urine Total 500 ml 450 ml # Voids 4 # Bowel Movements 0 4 0 Result Diagram: 09/20/16 0548 Objective Remarks - GENERAL: This is a frail elderly 75 years old female, in no apparent distress. SKIN: No rashes, warm and dry HEAD: Atraumatic. Normocephalic. EYES: Pupils equal round and reactive. Extraocular motions intact. No scleral icterus. ENT: Nose without bleeding, or drainage, Airway patent. NECK: Trachea midline. Supple CARDIOVASCULAR: Regular rate and rhythm without murmurs, gallops, or rubs. RESPIRATORY: Fair air entry on the left, positive crackles on the left base, chest tube removed GASTROINTESTINAL: Abdomen soft, non-tender, nondistended. Positive bowel sounds MUSCULOSKELETAL: Extremities without clubbing, cyanosis, or edema. Pedal pulses appreciated NEUROLOGICAL: Awake and alert. Moves all extremity. Normal speech.no focal neurological deficit Procedures 09/17- thoracetesis- 2 L proceeded with pigtail catheter placement A/P Problem List: (1) CHF exacerbation ICD Code: I50.9 Status: Acute (2) Gyutd-xe-qsbwiub kidney injury ICD Code: N17.9 Status: Acute (3) Anemia ICD Code: D64.9 Status: Acute Assessment and Plan 09/19: BMP and BNP is still pending, continue current management, chest tube removed, PT OT 09/20: 2-D echo shows severe MR with severe PAH and moderate TR most likely causing her problems will consult cardiology. 09/21:Appreciate cardiology consultation, continue diuresis switch to by mouth, oral anticoagulation with rate control for A. fib, aggressive treatment for CAD , monitor BMP and BNP with electrolyte, wean O2, ambulate Walking test, her FBG is low in the 50-70 will change Levemir every morning instead of daily at bedtime A/P: Ms. Garcia is a 75-year-old female with recurrent pleural effusions requiring thoracentesis x 4 since 03/14 CABG who presents for shortness of breath this mott her fifth hospitalization since CABG. CXR is c/w CHF. Congestive heart failure likely diastolic dysfunction with Recurrent right Pleural effusion S/P chest tube- pigtail catheter placement 09/17 - 2L out - monitor BMP and BNP - Rafael Menard ff - Bumex 1 mg IV push twice a day - Monitor I and O's - Heart healthy diet - Echo- EF 55-60% - d/w Dr. Alvarez initially drained about -2L immediately - brownish/cloudy- fluid studies sent-- ff results consider Pleurax tunnelld catheter placement- can be place Tuesday- by IR - of patient agrees - if yes, we will continue to Hold Xarelto- will d/w Dr. Rafael siegel fib- rate improved - 70s restart on metoprolol bid with hold parameter initially bracycardic was on CArdizem 90 mg q 6 and Metoprolol q 8 as OP - discontinued - restart Xarelto in am- hold if plan to place that Pleuvax- tunnelled catheter Hypertension- uncontrolled - on cozaar 50 mg daily - started Hydralazine 25 mg po q 8 09/16 - amlodipine 5 mg po daily - add back Lopressor 12 .5 mg po bid with hold parameters - prn IV Hydralazine Acute on chronic kidney injury -BUN/creatinine trending down, follow BMP Avoid nephrotoxins DM type 2 -long acting - Levemir at 10 units hs with SS tid and HS (at home was on 20 units hs Lantus) Anemia - Hemoglobin 10.6 and hematocrit 32.5; microcytic, hypochromic - improved from June admission (hemoccult stool negative x 2 in June) - Continue supplemental iron DVT prophylaxis - SCDs Discharge Planning when Cleared by radio tester Problem Qualifiers (1) CHF exacerbation: Qualified Code: I50.9 - Acute on chronic congestive heart failure, unspecified congestive heart failure type (2) Anemia: Qualified Code: D50.9 - Iron deficiency anemia, unspecified iron deficiency anemia type Eva Menjivar MD Sep 21, 2016 09:57
[2016-09-21 12:00] VITALS: BP 140/63; PULSE 50; RESP 16; TEMP 98.4; O2SAT 97
[2016-09-21 12:29] LABS: BICARBONATE 33.3 MEQ/L (21.0-32.0)
[2016-09-21 12:31] LABS: POTASSIUM 4.6 MEQ/L (3.5-5.1)
[2016-09-21] MEDS: RIVAROXABAN 15 MG TAB PO SCH (12:48)
[2016-09-21] MEDS: ASPIRIN 81 MG CHEW TAB PO SCH (12:48)
--- NOTE | 2016-09-21 16:34 | HHI.HCPN ---
Reason for visit a. To assist with evaluation and management of symptoms including: dyspnea, weakness b. To assist medical decision maker(s) with: better understanding of current medical conditions; weighing benefits/burdens of medical treatment options; making medical treatment decisions. . Subjective/Interval History Palliative care was called to the bedside by patient. Patient seen in her room. She is alert, oriented x self, place and situation. Endorsing dyspnea on exertion but reporting feeling overall much better today. Denies nausea/ vomiting or abdominal discomfort. Patient tells me that she called palliative care as she had some questions regarding her current plan of treatment. She reports that most of her questions have been answered by Dr. Menjivar this morning and that she is satisfied with the current plan of care. Patient shared her concerns regarding her multiple hospitalizations post CABG in April 2016. her goals of care remain very aggressive to include hospitalizations and full code in the event of cardiopulmonary arrest. patient was residing independently prior to this hospitalization and is planning in discharge home for independent living. her friend Melody can offer some assistance as needed. Patient tells me that she will f/u with her cardiologists for monitoring of severe mitral regurgitation with pulm htn. lab today sodium 139, potassium 4.6, BUN/Creat 28/1.03. BNP 424. No new imaging. Pleural fluid culture 09/17/16 with no growth in 72hrs. patient afebrile , stable hemodynamically. Tolerating O2 via NC at 3L. Reviewed case with Dr. De León. Likely discharge home with home health for PT. No plan at this time for pleurx cath. Patient to f/u with her manager property as outpatient. . Family/friend interactions No family at bedside. . Advance Directives Health Care Surrogate: Copy in medical record Advance Directive Specifics Date completed: 09/15/2016 . Health Care Surrogate(s): Patient has designated her best friend, Melody Pantoja, as her health care surrogate decision maker. . Documented care wishes: No documented care wishes are available. Information about living will was left with patient to review. . Significant change in goals: FULL CODE. Continue aggressive care with the goal of discharging home for independent living. . Objective Vital Signs Date Time Temp Pulse Resp B/P Pulse Ox O2 Delivery O2 Flow Rate FiO2 09/21/16 12:00 98.4 50 16 140/63 97 09/21/16 09:36 94 Nasal Cannula 3.00 09/21/16 08:00 97.4 61 17 161/70 93 09/21/16 07:03 Nasal Cannula 3.00 09/21/16 04:00 98.4 76 20 139/79 95 09/21/16 00:00 97.8 70 20 148/82 94 09/20/16 20:45 Nasal Cannula 3.00 09/20/16 20:00 98.0 69 18 159/71 93 09/20/16 20:00 60 09/20/16 18:27 96 Nasal Cannula 3.00 Intake & Output 09/21/16 09/21/16 07:00 19:00 Intake Total 480 ml Output Total 450 ml Balance 30 ml Intake Oral 480 ml Output Urine Total 450 ml # Bowel Movements 0 Physical Exam CONSTITUTIONAL/GENERAL: This is an adequately nourished patient, in no apparent distress. TUBES/LINES/DRAINS: PIV x 1, Nasal cannula SKIN: No jaundice, rashes, or lesions. No wounds seen anteriorly. Skin temperature appropriate. Not diaphoretic. HEAD: Atraumatic. Normocephalic. EYES: Pupils equal and round and reactive. Extraocular motions intact. ENT: Hearing grossly normal. Nose without bleeding or purulent drainage. NECK: Trachea midline. Supple. CARDIOVASCULAR: Irregularly irregular.Symmetrical peripheral pulses RESPIRATORY/CHEST: Symmetric, unlabored respirations. Decreased air exchange in bases bilaterally. GASTROINTESTINAL: Abdomen soft, non-tender, nondistended. No guarding. Bowel sounds present. GENITOURINARY: Without palpable bladder distension. MUSCULOSKELETAL: Extremities without clubbing, cyanosis, or edema. NEUROLOGICAL: Awake and alert. Motor and sensory grossly within normal limits. Follows commands. Moves all extremities. PSYCHIATRIC: No obvious anxiety/depression. Pleasant. . Diagnostic Tests Laboratory Laboratory Tests Test 09/19/16 09/20/16 09/21/16 14:10 05:48 11:25 Sodium Level 136 MEQ/L 137 MEQ/L 139 MEQ/L (136-145) (136-145) (136-145) Potassium Level 3.8 MEQ/L 3.6 MEQ/L 4.6 MEQ/L (3.5-5.1) (3.5-5.1) (3.5-5.1) Chloride Level 93 MEQ/L 93 MEQ/L 97 MEQ/L (98-107) (98-107) (98-107) Carbon Dioxide Level 35.5 MEQ/L 35.8 MEQ/L 33.3 MEQ/L (21.0-32.0) (21.0-32.0) (21.0-32.0) Anion Gap 8 MEQ/L (5-15) 8 MEQ/L (5-15) 9 MEQ/L (5-15) Blood Urea Nitrogen 35 MG/DL (7-18) 38 MG/DL (7-18) 28 MG/DL (7-18) Creatinine 1.28 MG/DL 1.43 MG/DL 1.03 MG/DL (0.50-1.00) (0.50-1.00) (0.50-1.00) Estimat Glomerular Filtration 41 ML/MIN (>89) 36 ML/MIN (>89) 53 ML/MIN (>89) Rate Random Glucose 51 MG/DL 134 MG/DL 112 MG/DL (74-106) (74-106) (74-106) Calcium Level 9.2 MG/DL 9.1 MG/DL 8.8 MG/DL (8.5-10.1) (8.5-10.1) (8.5-10.1) B-Type Natriuretic Peptide 320 PG/ML 424 PG/ML (0-100) (0-100) Result Diagram: 09/21/16 1125 Microbiology Microbiology Date/Time Procedure Status Source Growth 09/17/16 13:07 Gram Stain - Final Complete Fluid Pleural Fluid 09/17/16 13:07 Body Fluid Culture - Final Complete Fluid Pleural Fluid NO GROWTH IN 72 HRS.--AEROBICALLY OR ... Assessment and Plan Disease Oriented Problem List: (1) CHF exacerbation Comment: Chest x-ray revealed cardiomegaly with mild edema pattern, basilar consolidation and pleural effusions (right > left) most characteristic of congestive failure that is similar appearance in comparison to June,. (2) Atrial fibrillation (3) Recurrent left pleural effusion Comment: Recurrent pleural effusions requiring thoracentesis 5 (4) Msnib-bq-evwtcif kidney injury (5) Coronary artery disease (6) S/P CABG x 3 Comment: February, Symptom Scale: (1) Weakness 0-10 Scale: Unable to quantify (2) Dyspnea 0-10 Scale: Unable to quantify Comment: Currently tolerating O2 via NC at 3L. . Pertinent Non-Medical Issues Psychosocial: Patient is originally from [place]. Both her mother and father are ; both from myocardial infarction. Patient has 1 brother (Valentin) who lives in [place]. She states she and her brother have a "horrible" relationship. Patient was for 7 years and in 1972 ; she never remarried. She had one son (Mo) who committed suicide 2 years ago when he was approximately 45 years old. She states he struggled with depression and alcoholism for many years, and she was not surprised when she received a phone call stating he had " hung himself in the back yard." It was recently the second anniversary of his , and the patient states it has been very difficult. She was very close to her son. Patient recently moved to [place]. It is unclear why the patient decided to move to [place] because she states she has no close friends or family here and she doesn't particularly like [place]. Spiritual: Cheondoism haley Legal: Patient has designated her best friend, Melody Pantoja, as her health care surrogate decision maker. Ethical issues impacting care: Patient is currently capacitated to participate in medical decision making. She demonstrates an understanding of her medical conditions and the ability to weigh the benefits and burdens of treatment options. . Important Contacts Logan Melton, brother: [phone] Melody Pantoja, friend: [phone] . Prognosis Patient is an 75 year old female with a past medical history of hypothyroidism, coronary artery disease status post stent placement in 2007 and CABG 3 in 2015, CHF, hyperlipidemia, atrial fibrillation on Xarelto, HTN, COPD, and GERD. This is the patient's fifth hospitalizations since her open heart surgery in February,-currently admitted with CHF exacerbation and bilateral pleural effusions. Patient at high risk for further complications, continue decline and . Code Status: Full Code Plan * CODE STATUS: Full code. * HEALTHCARE DECISION-MAKING: Patient currently capacitated to participate in medical decision-making. She has designated her friend Melody Pantoja as healthcare surrogate. * GOALS OF CARE: Patient verbalizes aggressive goals of treatment at this time to include hospitalizations and CPR/intubation and [facility] if medically necessary. Patient's goal is to return home with home health for independent living. * SYMPTOMS: ==Dyspnea: secondary to CHF exacerbation, recurrent pleural effusions. Pulm following. Currently tolerating O2 via NC at 3L. ==Debility: secondary to acute illness and multiple prolonged hospitalizations in the past 6 months. Currently participating in PT, likely to DC home with home health for continuation of PT. * Case reviewed with Dr. Menjivar. * Palliative care contact information has been provided to patient. * Palliative care will continue to f/u with patient as needed as her clinical course evolves. . Time Spent Total Floor Time (mins): 32 (Total time to include review of medical records, phys exam, and case review with Dr. Menjivar. ) >50% Counseling/Coord of Care: Yes Attestation To help prompt me to consider important information that might be impacting today's encounter and assessment, information from prior notes written by myself or my colleagues may have been "brought forward" into today's note. My signature on this note, however, is an attestation that I personally performed the exam, history, and/or decision-making noted today, and, unless otherwise indicated, the interactions with patient, family, and staff as well as the review of records all occurred today. I also attest that the listed assessment and stated plan reflect my best clinical judgment today based on the combination of historical information, prior notes, and today's exam/ interactions. When time spent is documented, it refers only to time spent today by the signer, or if indicated, combined time spent today by collaborating physician/nurse practitioner. Cecilia Manriquez Sep 21, 2016 16:34
[2016-09-21] MEDS ORDERED: BUMETANIDE 1 MG TAB PO SCH ×2 (18:00)
--- NOTE | 2016-09-21 18:53 | HHI.PR ---
Subjective Remarks 75 YOWF with CAD,CHF, pl effusion Breathing better Chest tube removed " I really feel good today" Objective Vital Signs Vital Signs Date Time Temp Pulse Resp B/P Pulse Ox O2 Delivery O2 Flow Rate FiO2 09/21/16 12:00 98.4 50 16 140/63 97 09/21/16 09:36 94 Nasal Cannula 3.00 09/21/16 08:00 97.4 61 17 161/70 93 09/21/16 07:03 Nasal Cannula 3.00 09/21/16 04:00 98.4 76 20 139/79 95 09/21/16 00:00 97.8 70 20 148/82 94 09/20/16 20:45 Nasal Cannula 3.00 09/20/16 20:00 98.0 69 18 159/71 93 09/20/16 20:00 60 I/O 09/20/16 09/20/16 09/20/16 09/21/16 09/21/16 09/21/16 07:00 15:00 23:00 07:00 15:00 23:00 Intake Total 240 ml 480 ml 480 ml Output Total 500 ml 450 ml Balance -260 ml 480 ml 30 ml Intake Oral 240 ml 480 ml 480 ml Output Urine Total 500 ml 450 ml # Voids 4 # Bowel Movements 0 4 0 Result Diagram: 09/21/16 1125 Objective Remarks GENERAL: Frail elderly WF,mild sob SKIN: Warm and dry. HEAD: Normocephalic. EYES: No scleral icterus. No injection or drainage. NECK: Supple, trachea midline. No JVD or lymphadenopathy. CARDIOVASCULAR: Regular rate and rhythm without murmurs, gallops, or rubs. RESPIRATORY: Breath sounds equal bilaterally. No accessory muscle use. Right chest tube draining GASTROINTESTINAL: Abdomen soft, non-tender, nondistended. MUSCULOSKELETAL: No cyanosis, or edema. BACK: Nontender without obvious deformity. No CVA tenderness. A/P Assessment and Plan Recurrent pl effusion, s/p right chest tube CHF Atelactesis CAD, s/p CABG DM PLAN: cardiology evaluating pt. Diurease Supplement 02 Ambulate. Stable from pulm standpoint to dc Will FU in office. Calixto Hall MD Sep 21, 2016 18:52
[2016-09-21 20:00] VITALS: BP 127/59; PULSE 57; RESP 20; TEMP 97.4; O2SAT 96
[2016-09-21] MEDS: ATORVASTATIN 10 MG TAB PO SCH (20:37)
[2016-09-21] MEDS: FENOFIBRATE 145 MG TAB PO SCH (20:38)
[2016-09-21] MEDS: traZODone HCL 50 MG TAB PO SCH (20:48)
[2016-09-21] MEDS: SODIUM CHLORIDE 0.65% NASAL SPRAY 45 ML BTL EACH NARE PRN (23:30)
[2016-09-22] VITALS: BP 145/75; PULSE 67; RESP 20; TEMP 97.9; O2SAT 100
[2016-09-22 04:00] VITALS: BP 137/71; PULSE 70; RESP 20; TEMP 98; O2SAT 98
[2016-09-22] MEDS: LEVOTHYROXINE SODIUM 150 MCG TAB PO SCH (04:35)
[2016-09-22] MEDS: hydrALAZINE HCL 25 MG TAB PO SCH (04:35)
[2016-09-22] MEDS: INSULIN ASPART SUPPLEMENTAL SCALE SQ SCH (04:36)
[2016-09-22] MEDS: SODIUM CHLORIDE 0.65% NASAL SPRAY 45 ML BTL EACH NARE PRN (04:37)
[2016-09-22 05:43] LABS: BICARBONATE 39.8 MEQ/L (21.0-32.0); MAGNESIUM 1.9 MG/DL (1.5-2.5); POTASSIUM 3.4 MEQ/L (3.5-5.1)
--- NOTE | 2016-09-22 07:50 | RADRPT ---
EXAM DATE/TIME: 09/17/2016 00:00 INDICATIONS : Right pleural effusions. SEDATION TIME: 30 minutes MEDICATION(S): 1.) 1 mg midazolam (Versed) IV 2.) 100 mcg fentanyl (Sublimaze) IV DEVICE(S): 1.) 8 Fr [place] FLUID: Total volume of 1800 cc of cloudy, yellow fluid was removed. Fluid was sent for laboratory ordered studies. MEDICAL HISTORY : Cardiovascular disease. Hypertension. Chronic obstructive pulmonary disease. Diabetes SURGICAL HISTORY : None. ENCOUNTER: Initial ACUITY: 1 day PAIN SCORE: 0/10 LOCATION: Right chest PROCEDURE: 1. CT guided Right thoracentesis with chest tube placement. 2. Conscious sedation with continuous EKG and oximetry monitoring. 3. EKG and oximetry remained stable throughout the procedure. The site was prepped in sterile fashion. Full sterile technique was used, including cap, mask, steri le gloves and gown and a large sterile sheet. Hand hygiene and 2% chlorhexidine and/or betadine/alco hol prep was utilized per protocol for cutaneous antisepsis. The skin and subcutaneous tissues were infiltrated with local anesthetic solution. Using automated exposure control and adjustment of the m A and/or kV according to patient size, radiation dose was kept as low as reasonably achievable to obt ain optimal diagnostic quality images. Under CT guidance an 8-Slovenian chest tube was placed in the right pleural space. The fluid looked claudia udy and was sent for Gram stain and culture. Chest tube was sutured in. The patient tolerated the p rocedure well and there were no complications. EKG and oximetry remained stable throughout the proced ure. The patient was sent to recovery in stable condition. CONCLUSION: Uncomplicated CT-guided thoracentesis with chest tube placement.. Remigio Alvarez MD FACR on September 22, 2016 at 7:45 Board Certified Radiologist. This report was verified electronically.
[2016-09-22 08:00] VITALS: BP 196/74; PULSE 74; RESP 17; TEMP 98.2; O2SAT 98
[2016-09-22] MEDS ORDERED: INSULIN DETEMIR 100 UNITS/ML VIAL SQ SCH (09:00)
[2016-09-22] MEDS ORDERED: BUMETANIDE 1 MG TAB PO SCH (09:00)
[2016-09-22] MEDS: DOCUSATE SODIUM 50 MG/SENNA 8.6 MG TAB PO SCH (09:00)
[2016-09-22] MEDS: FERROUS SULFATE 325 MG (65 MG ELEMENTAL IRON) TAB PO SCH (09:00)
[2016-09-22] MEDS: MULTIVITAMINS/MINERALS THERAPEUTIC TAB PO SCH (09:12)
[2016-09-22] MEDS: DULoxetine HCl DR 60 MG CAP PO SCH (09:12)
[2016-09-22] MEDS: PANTOPRAZOLE SOD 40 MG DELAYED RELEASE TAB PO SCH (09:12)
[2016-09-22] MEDS: SODIUM CHLORIDE 0.9% FLUSH 10 ML FLUSH IV FLUSH SCH (09:12)
[2016-09-22] MEDS: ASPIRIN 81 MG CHEW TAB PO SCH (09:13)
[2016-09-22] MEDS: amLODIPine BESYLATE 5 MG TAB PO SCH (09:13)
[2016-09-22] MEDS: LOSARTAN 50 MG TAB PO SCH (09:13)
[2016-09-22] MEDS: RIVAROXABAN 15 MG TAB PO SCH (09:13)
[2016-09-22] MEDS: METOPROLOL TARTRATE 25 MG TAB PO SCH (09:13)
[2016-09-22 09:22] VITALS: PULSE 89; O2SAT 98
[2016-09-22] MEDS ORDERED: BUME1TAB PO ×3 (09:50→12:24)
[2016-09-22] MEDS ORDERED: HYDR25TA35 PO (09:50)
[2016-09-22] MEDS ORDERED: AMLO5 PO ×2 (09:50→10:37)
[2016-09-22] MEDS ORDERED: METO25TA3 PO (09:50)
[2016-09-22] MEDS ORDERED: LEVEMIR SQ (09:50)
[2016-09-22] MEDS ORDERED: NOVOLOGSS SQ (09:50)
--- NOTE | 2016-09-22 09:53 | HHI.FF ---
Face to Face Verification Diagnosis: (1) S/P CABG x 3 (2) Recurrent left pleural effusion (3) DM2 (diabetes mellitus, type 2) (4) Hypertension (5) Weakness (6) Hypothyroidism (7) Hyperlipemia (8) Atrial fibrillation (9) Anemia Physical Therapy Order: Evaluate and Treat Occupational Therapy Order: Evaluate and Treat Home Health Nursing Order: Diabetic education CHF education Nursing assessment with vital signs I have seen patient Lorenza Garcia on 09/22/16. My clinical findings support the need for the requested home health care services because: Patient has SOB I certify that my clinical findings support that this patient is homebound because: Hx COPD- exertion dyspnea/weakness Unsteady gait/balance Eva Menjivar MD Sep 22, 2016 09:53
--- NOTE | 2016-09-22 10:08 | HHI.DS ---
Discharge Summary Admission Date Sep 14, 2016 at 21:56 Discharge Date: Sep 22, 2016 Admitting Diagnosis CHF exacerbation, pulmonary effusions (1) CHF exacerbation ICD Code: I50.9 (2) Wogsy-ba-zntvrca kidney injury ICD Code: N17.9 (3) Anemia ICD Code: D64.9 (4) Recurrent left pleural effusion ICD Code: J90 (5) Weakness ICD Code: R53.1 (6) Atrial fibrillation ICD Code: I48.91 Procedures 09/17- thoracetesis- 2 L proceeded with pigtail catheter placement Brief History - From Admission Ms. Garcia is a 75-year-old female with a past history of hypothyroidism, coronary artery disease status post stent placement 2007 and coronary artery bypass graft 01 March 2016, congestive heart failure, hyperlipidemia, atrial fibrillation on Xarelto, hypertension, COPD, and GERD who presents to the emergency room on 09/14/2016 complaining of shortness of breath. She was hospitalized four times since her open heart surgery in February 2016 with pleural effusions requiring thoracentesis this mott her fifth hospitalization since CABG. Chest x-ray in ER shows cardiomegaly with mild edema pattern, basilar consolidation, and right greater than left pleural effusions most characteristic of congestive heart failure similar in appearance to imaging from June. BNP is mildly elevated at 275. *Echo 06/15/15 w/ EF 50-55% with severe mitral regurgitation, severely dilated left atrium, moderate to severe tricuspid valve regurgitation, and PA peak pressure 73 mmHg Patient has been at home since July 27 from her prior hospitalization. She states that she has been having progressively worsening shortness of breath and takes Bumex 1 mg twice a day. She formerly used supplemental oxygen during the night only but now requires oxygen 24/. She thinks she has "messed up" her medications over the last month; "I think I took double the P.M." dose of some meds. She also thinks she may have missed some medications and complains that she has had some mild cognitive impairment since her open heart surgery in February. She is adamant that she does not want to go to an assisted living facility. The patient reports that she is not necessarily watching her fluid intake but states she only drinks about 4 glasses of iced tea per day. Regarding salt intake: she states she is not "as good as I (she) should be". Denies fever, cough, nausea, vomiting, diarrhea, dysuria, and burning with urination. Reports weight loss of 110 lbs after bypass with some increase over the past couple of months of about 30 lbs. *Of note regarding Lasix adverse reaction* Lasix causes excessive sweating, fatigue, and a large amount of diuresis - last used it in the 1969's - "it wore me out". Dr. Urbina is her hospice care consultant; Dr. Barger is her supply and distribution manager. . CBC/BMP: 09/22/16 0432 Significant Findings Laboratory Tests Test 09/19/16 09/20/16 09/21/16 09/22/16 14:10 05:48 11:25 04:32 Chloride Level 93 MEQ/L 93 MEQ/L 97 MEQ/L 91 MEQ/L (98-107) (98-107) (98-107) (98-107) Carbon Dioxide Level 35.5 MEQ/L 35.8 MEQ/L 33.3 MEQ/L 39.8 MEQ/L (21.0-32.0) (21.0-32.0) (21.0-32.0) (21.0-32.0) Blood Urea Nitrogen 35 MG/DL (7-18) 38 MG/DL (7-18) 28 MG/DL (7-18) 33 MG/DL (7- 18) Creatinine 1.28 MG/DL 1.43 MG/DL 1.03 MG/DL 1.10 MG/DL (0.50-1.00) (0.50-1.00) (0.50-1.00) (0.50-1.00) Estimat Glomerular Filtration 41 ML/MIN (>89) 36 ML/MIN (>89) 53 ML/MIN (>89) 49 ML/MIN (>89) Rate Random Glucose 51 MG/DL 134 MG/DL 112 MG/DL 140 MG/DL (74-106) (74-106) (74-106) (74-106) B-Type Natriuretic Peptide 320 PG/ML 424 PG/ML (0-100) (0-100) Potassium Level 3.4 MEQ/L (3.5-5.1) PE at Discharge - GENERAL: This is a frail elderly 75 years old female, in no apparent distress. SKIN: No rashes, warm and dry HEAD: Atraumatic. Normocephalic. EYES: Pupils equal round and reactive. Extraocular motions intact. No scleral icterus. ENT: Nose without bleeding, or drainage, Airway patent. NECK: Trachea midline. Supple CARDIOVASCULAR: Regular rate and rhythm without murmurs, gallops, or rubs. RESPIRATORY: Fair air entry on the left, positive crackles on the left base, chest tube removed GASTROINTESTINAL: Abdomen soft, non-tender, nondistended. Positive bowel sounds MUSCULOSKELETAL: Extremities without clubbing, cyanosis, or edema. Pedal pulses appreciated NEUROLOGICAL: Awake and alert. Moves all extremity. Normal speech.no focal neurological deficit Hospital Course 75 years old female with diastolic cardiomyopathy and recurrent pleural effusion presented with short of breath she underwent another thoracentesis which is #4 since February 2016, patient has a history of coronary artery disease and CABG. Pulmonary consulted patient placed on iv diuretic monitoring MICHI, EKG showed EF 55-60% the drain catheter placed. 2-D echo also showed moderate to severe MR, severe pulmonary hypertension, and moderate TR, cardiology consulted recommending continuing diuresis decreasing afterload. Patient had a chronic A. fib Xarelto has been held for the tunneled placement and resumed afterward. Cardizem and metoprolol placed on hold due to bradycardia, then Lopressor at lower dose reinitiated. Patient also had acute on chronic kidney injury which improved with diuresis, insulin titration for diabetes also was done due to fasting low blood sugar. PT assessment recommended home health PT. Patient to check her BMP and BNP in one week Aulk-uq-ylec encounter performed with the patient on discharge day, as well as physical exam, summary of hospitalization course and postdischarge plan has been D/W the patient. D/W nurse D/W human services case manager. Discharge medications reviewed and printed and signed, post discharge follow up visit with PCP and other specialist as well as Brief hospital course and discharge summary has been placed. Pt Condition on Discharge: Fair Discharge Disposition: Disch w/ Home Health Serv Discharge Time: > 30 minutes Discharge Instructions DIET: Follow Instructions for: Heart Healthy Diet, Diabetic Diet Fluid Restrictions: 1800cc/day Activities you can perform: See Additionl Instruction Other Activity Instructions: pt recs New Orders: BASIC METABOLIC PROF - 1 Week BNP - 1 Week New Medications: Amlodipine (Norvasc) 5 Mg Tab 5 MG PO DAILY htn #0 TAB Bumetanide (Bumetanide) 1 Mg Tab 1 MG PO DAILY@1800 dieuretics #30 TAB Bumetanide (Bumetanide) 1 Mg Tab 2 MG PO DAILY dieuretics #3 TAB Hydralazine (Hydralazine) 25 Mg Tab 25 MG PO Q8HR htn #90 TAB Insulin Aspart Inj (Novolog Inj) 100 Unit/Ml Inj 1 UNITS SQ ACHS SLIDING SCALE dm, #30 INJECTION Insulin Detemir Inj (Levemir Inj) 1,000 unit/ 10 ML Vial 10 UNITS SQ DAILY dm #30 INJECTION Metoprolol Tartrate (Metoprolol Tartrate) 25 Mg Tab 25 MG PO Q12HR htn #60 TAB Continued Medications: Aspirin (Aspirin Low Strength) 81 Mg Chew 81 MG PO DAILY Days 30 EA Atorvastatin (Lipitor) 10 Mg Tab 10 MG PO HS Days 30 TAB Cyanocobalamin Inj (Cyanocobalamin Inj) 1,000 Mcg/Ml Inj 1000 MCG IM EVERY 2 WEEKS #1 Ref [address] (Dul[address]etine DR) 60 Mg Capdr 120 MG PO DAILY Days 30 CAP Ergocalciferol (Drisdol) 50,000 Unit Cap 61907 UNITS PO WEEKLY ON MONDAYS Nutritional Supplement #30 Ref 0 CAP Fenofibrate (Fenofibrate) 160 Mg Tab 160 MG PO HS #30 Ref 0 TAB Ferrous Sulfate (Ferrous Sulfate) 325 Mg Tab 325 MG PO BID Build Red Blood Cells #60 TAB Levothyroxine (Levothyroxine) 150 Mcg Tab 150 MCG PO DAILY@0600 Thyroid #30 Ref 0 TAB Losartan (Losartan) 50 Mg Tab 50 MG PO DAILY Blood Pressure Management #30 Ref 0 TAB Multiple Vitamins W/ Minerals (Thera M Plus) 1 Tab 1 TAB PO DAILY Days 30 TAB Nitroglycerin SL (Nitroglycerin SL) 0.4 Mg Subl 0.4 MG SL DIRECTED ONE TABLET UNDER THE TONGUE NEEDED FOR CHEST PAIN, MAY REPEAT EVERY FIVE MINUTES FOR A TOTAL OF 3 DOSES OR CALL 911 IF NO RELIEF PRN CHEST PAIN #100 Ref 0 TAB.SL Pantoprazole (Pantoprazole) 40 Mg Tab 40 MG PO DAILY Days 30 TAB Potassium Chloride ER (Klor-Con 10) 10 Meq Tab 10 MEQ PO DAILY Days 7 TAB Rivaroxaban (Xarelto) 15 Mg Tab 15 MG PO DAILY Blood Clot Prevention #30 Ref 2 TAB Trazodone (Trazodone) 50 Mg Tab 50 MG PO HS Days 30 TAB Valacyclovir (Valtrex) 1 Gm Tab 1 GM PO DAILY Mgmt Viral Infection #30 Ref 0 TAB Eva Menjivar MD Sep 22, 2016 10:08
--- NOTE | 2016-09-22 10:10 | HHI.PR ---
Subjective Remarks Doing well no chest pain she is afebrile, she wants to go home Objective Vitals Vital Signs Date Time Temp Pulse Resp B/P Pulse Ox O2 Delivery O2 Flow Rate FiO2 09/22/16 09:22 89 09/22/16 09:22 Nasal Cannula 3.00 Humidified 09/22/16 08:00 98.2 74 17 196/74 98 09/22/16 04:00 98.0 70 20 137/71 98 09/22/16 00:00 97.9 67 20 145/75 100 09/21/16 20:00 97.4 57 20 127/59 96 09/21/16 12:00 98.4 50 16 140/63 97 I/O 09/21/16 09/21/16 09/21/16 09/22/16 09/22/16 09/22/16 07:00 15:00 23:00 07:00 15:00 23:00 Intake Total 0 ml 0 ml Balance 0 ml 0 ml Intake Oral 0 ml 0 ml # Voids 2 3 Result Diagram: 09/22/16 0432 Objective Remarks - GENERAL: This is a frail elderly 75 years old female, in no apparent distress. SKIN: No rashes, warm and dry HEAD: Atraumatic. Normocephalic. EYES: Pupils equal round and reactive. Extraocular motions intact. No scleral icterus. ENT: Nose without bleeding, or drainage, Airway patent. NECK: Trachea midline. Supple CARDIOVASCULAR: Regular rate and rhythm without murmurs, gallops, or rubs. RESPIRATORY: Fair air entry on the left, positive crackles on the left base, chest tube removed GASTROINTESTINAL: Abdomen soft, non-tender, nondistended. Positive bowel sounds MUSCULOSKELETAL: Extremities without clubbing, cyanosis, or edema. Pedal pulses appreciated NEUROLOGICAL: Awake and alert. Moves all extremity. Normal speech.no focal neurological deficit Procedures 09/17- thoracetesis- 2 L proceeded with pigtail catheter placement A/P Problem List: (1) CHF exacerbation ICD Code: I50.9 Status: Acute (2) Mhdzy-sd-qsiizja kidney injury ICD Code: N17.9 Status: Acute (3) Anemia ICD Code: D64.9 Status: Acute (4) Recurrent left pleural effusion ICD Code: J90 Status: Acute (5) Weakness ICD Code: R53.1 Status: Acute (6) Atrial fibrillation ICD Code: I48.91 Status: Chronic Assessment and Plan 09/19: BMP and BNP is still pending, continue current management, chest tube removed, PT OT 09/20: 2-D echo shows severe MR with severe PAH and moderate TR most likely causing her problems will consult cardiology. 09/21:Appreciate cardiology consultation, continue diuresis switch to by mouth, oral anticoagulation with rate control for A. fib, aggressive treatment for CAD , monitor BMP and BNP with electrolyte, wean O2, ambulate Walking test, her FBG is low in the 50-70 will change Levemir every morning instead of daily at bedtime 09/22: Blood sugar fasting improved today 136, still need to follow with her PCP , BMP reviewed, patient stable for discharge home health for PT A/P: Ms. Garcia is a 75-year-old female with recurrent pleural effusions requiring thoracentesis x 4 since 03/14 CABG who presents for shortness of breath this mott her fifth hospitalization since CABG. CXR is c/w CHF. Congestive heart failure likely diastolic dysfunction with Recurrent right Pleural effusion S/P chest tube- pigtail catheter placement 09/17 - 2L out - monitor BMP and BNP - Rafael Menard ff - Bumex 1 mg IV push twice a day - Monitor I and O's - Heart healthy diet - Echo- EF 55-60% -Status post Pleurax tunnelld catheter placement- by IR - Chronic a fib- rate improved - 70s restart on metoprolol bid with hold parameter initially bracycardic was on CArdizem 90 mg q 6 and Metoprolol q 8 as OP - discontinued - restart Xarelto in am- hold if plan to place that Pleuvax- tunnelled catheter Hypertension- uncontrolled - on cozaar 50 mg daily - started Hydralazine 25 mg po q 8 09/16 - amlodipine 5 mg po daily - add back Lopressor 12 .5 mg po bid with hold parameters - prn IV Hydralazine Acute on chronic kidney injury -BUN/creatinine trending down, follow BMP Avoid nephrotoxins DM type 2 -long acting - Levemir at 10 units hs with SS tid and HS (at home was on 20 units hs Lantus) Anemia - Hemoglobin 10.6 and hematocrit 32.5; microcytic, hypochromic - improved from June admission (hemoccult stool negative x 2 in June) - Continue supplemental iron DVT prophylaxis - SCDs Discharge Planning With home health for PT today Problem Qualifiers (1) CHF exacerbation: Qualified Code: I50.9 - Acute on chronic congestive heart failure, unspecified congestive heart failure type (2) Anemia: Qualified Code: D50.9 - Iron deficiency anemia, unspecified iron deficiency anemia type Eva Menjivar MD Sep 22, 2016 10:10
== END 2016-09-22 11:38 | disposition home health service (06) | DRG 292 ==
LOC: NEPC 19:35 → NEDA 21:56 → OBSVTOIN 21:56 → NEDA 09-15 01:59 → N04A 09-15 12:19 → HCIS 09-16 13:50 → N07A 09-19 12:45
PROVIDERS: ADMIT Hospitalist; ATTEND Hospitalist
PROC: 0W9930Z Drainage of Right Pleural Cavity with Drainage Device, Percutaneous Approach (ICD-10-PCS; principal; 2016-09-17)
DX: I50.33 Acute on chronic diastolic (congestive) heart failure (principal); N17.9 Acute kidney failure, unspecified; J90 Pleural effusion, not elsewhere classified; E11.22 Type 2 diabetes mellitus with diabetic chronic kidney disease; R00.1 Bradycardia, unspecified; I48.2 Chronic atrial fibrillation; I27.2 Other secondary pulmonary hypertension; I08.1 Rheumatic disorders of both mitral and tricuspid valves; I12.9 Hypertensive chronic kidney disease with stage 1 through stage 4 chronic kidney disease, or unspecified chronic kidney disease; N18.9 Chronic kidney disease, unspecified; G31.84 Mild cognitive impairment of uncertain or unknown etiology; J44.9 Chronic obstructive pulmonary disease, unspecified; E03.9 Hypothyroidism, unspecified; Z99.81 Dependence on supplemental oxygen; E78.5 Hyperlipidemia, unspecified; I25.10 Atherosclerotic heart disease of native coronary artery without angina pectoris; Z95.5 Presence of coronary angioplasty implant and graft; Z95.1 Presence of aortocoronary bypass graft; Z79.02 Long term (current) use of antithrombotics/antiplatelets; D50.9 Iron deficiency anemia, unspecified; K21.9 Gastro-esophageal reflux disease without esophagitis; Z87.891 Personal history of nicotine dependence; I25.2 Old myocardial infarction; Z79.82 Long term (current) use of aspirin; Z79.4 Long term (current) use of insulin; H91.90 Unspecified hearing loss, unspecified ear
CPT/HCPCS: 32555; 32557; 36600; 71010; 71250; 76937; 80048; 80053; 82805; 82948; 83735; 83880; 84100; 85025; 85610; 85730; 87070; 87205; 87641; 89051; 93005; 93308; 94620; 94640; 94664; 96374; 99152; 99153; C1729; J0360; J1815; J2060; J2250; J2930; J3010

== ENCOUNTER 2016-11-10 13:19 | Day surgery (SDC) | payer OTHER ==
[~2016-11-10 13:19] MED LIST changes: +AMLO5 PO; +HYDR25TA35 PO; -LACT PO; -LEVA500T PO; +LEVEMIR SQ; -MELO7.5T4 PO; +METO25TA3 PO; +NOVOLOGSS SQ
[2016-11-10 14:20] VITALS: BP 122/63; PULSE 77; RESP 18; TEMP 98; O2SAT 90
== END 2016-11-10 15:00 | disposition home or self-care (01) ==
LOC: HRAD 13:19 → HRIP 13:24 → HRAD 15:00
PROVIDERS: ATTEND Internal Medicine Pulmonary Disease
DX: R18.8 Other ascites (principal)

== ENCOUNTER 2016-11-11 10:08 | Day surgery (SDC) | payer OTHER ==
[2016-11-11 10:42] VITALS: BP 133/81; PULSE 91; RESP 16; TEMP 97.3; O2SAT 93
[2016-11-11 11:30] VITALS: BP 102/67; PULSE 83; RESP 20; O2SAT 91
--- NOTE | 2016-11-11 12:03 | RADRPT ---
EXAM DATE/TIME: 11/11/2016 11:30 [facility] COMPARISON: CHEST EXPIRATION ONLY, September 18, 2016, 8:12. INDICATIONS : Post thoracentesis. MEDICAL HISTORY : Myocardial infarction. Congestive heart failure. Chronic obstructive pulmonary disease. SURGICAL HISTORY : CABG. ENCOUNTER: Initial ACUITY: 1 day PAIN SCORE: 3/10 LOCATION: Bilateral chest FINDINGS: Single view chest demonstrates significant interval reduction in the size of the patient right pleura l effusion. There is continued small effusion on the left. There consolidative changes in the left lo wer lobe. No pneumothorax is seen. The heart is enlarged. The patient is post median sternotomy. CONCLUSION: No pneumothorax identified following thoracentesis. Varun Alvarez MD on November 11, 2016 at 12:00 Board Certified Radiologist. This report was verified electronically.
[2016-11-11 12:08] VITALS: BP 118/59; PULSE 73; RESP 18; O2SAT 92
--- NOTE | 2016-11-11 15:07 | RADRPT ---
EXAM DATE/TIME: 11/11/2016 10:43 [facility] COMPARISON: CHEST EXPIRATION ONLY, November 11, 2016, 11:30. US GUIDED THORACENTESIS RIGHT, July 22, 2016, 9:01. INDICATIONS : Right pleural effusion. MEDICAL HISTORY : Gastroesophageal reflux disease. Chronic obstructive pulmonary disease. Myocardial infarction. Hypot hyroidism. A-Fib. Diabetic SURGICAL HISTORY : Thoracentesis. CABG. Coronary stent. Back surgery. Gastric bypass. ENCOUNTER: Subsequent ACUITY: 3 months PAIN SCORE: 0/10 LOCATION: Right proximal FLUID: Total volume of 1800 cc of cloudy, yellow fluid was removed. Fluid was discarded. Thoracentesis was therapeutic only. TECHNIQUE: 1. Ultrasound guidance for thoracentesis. 2. Thoracentesis. The risks, benefits, and alternatives to ultrasound guided thoracentesis were explained to the patien t in lay simple terms, including the risk of bleeding and infection. Written and verbal informed con sent was obtained. Appropriate area for thoracentesis was marked under ultrasound guidance with the patient in the uprig ht position. Overlying skin was prepped and draped in the usual sterile fashion and with local anest hetic, a dermatotomy was made with an 11 blade scalpel. A 6 Vietnamese thoracentesis catheter was placed in the pleural space and fluid was removed. Catheter was then removed and a sterile dressing applie d. There were no immediate complications. The patient tolerated the procedure well and the left the ultrasound suite in stable condition. Chest radiograph is to be obtained. CONCLUSION: Uncomplicated ultrasound guided thoracentesis. Kingston Do MD on November 11, 2016 at 15:04 Board Certified Radiologist. This report was verified electronically.
== END 2016-11-11 12:30 | disposition home or self-care (01) ==
LOC: HRAD 10:08
PROVIDERS: ATTEND Internal Medicine Pulmonary Disease
DX: J90 Pleural effusion, not elsewhere classified (principal); E11.9 Type 2 diabetes mellitus without complications; I50.9 Heart failure, unspecified; K21.9 Gastro-esophageal reflux disease without esophagitis; J44.9 Chronic obstructive pulmonary disease, unspecified; I48.91 Unspecified atrial fibrillation; I25.2 Old myocardial infarction; E03.9 Hypothyroidism, unspecified; Z95.1 Presence of aortocoronary bypass graft; Z95.5 Presence of coronary angioplasty implant and graft; Z98.84 Bariatric surgery status; Z88.1 Allergy status to other antibiotic agents; Z88.0 Allergy status to penicillin; Z88.8 Allergy status to other drugs, medicaments and biological substances
CPT/HCPCS: 32555; 71010; C1729

== ENCOUNTER → 2016-11-18 | Outpatient (CLI) | payer OTHER ==
[~2016-11-18] MED LIST changes: +ATOR1TAB18 PO; +ERGO1CAP30 PO; +HYDR-3799 PO; +XARE20TA PO
--- NOTE | 2016-11-19 16:44 | RADRPT ---
EXAM DATE/TIME: 11/18/2016 00:00 CONSULTATION: The patient is kindly referred for evaluation of possible tunneled pleural drainage catheter for recu rrent symptomatic large pleural effusions secondary to CHF. Patient has required multiple therapeutic thoracenteses as well as chest tube placement in August and has responded well each time (4 procedure s in 4 months). She is currently on Xarelto which increases the complexity and coordination of thorac entesis. She is currently not considered end-stage and not on hospice. There is increased risk for in fection with indwelling catheters beyond 6 months and so in general tunneled catheters are most suite d for end of life palliation. Despite this, it is reasonable to consider tunneled pleural catheter pl acement given the frequent procedures and complexity of coordinating the procedures due to ongoing an ticoagulation. Studies have demonstrated approximately 40% auto-pleurodesis with indwelling pleural d rainage catheters which may be the most ideal outcome. Case was additionally discussed with Dr. Jimi hartman who is in agreement. Thank you for this consultation. Cali Crockett MD on November 19, 2016 at 7:20 Board Certified Radiologist. This report was verified electronically.
== END ==
LOC: HRAD 14:03
PROVIDERS: ATTEND Internal Medicine Critical Care Medicine
DX: J90 Pleural effusion, not elsewhere classified (principal)

== ENCOUNTER 2016-11-22 11:45 | Inpatient (IN) | payer OTHER ==
[2016-11-22] VITALS (9 sets, daily range): BP systolic 107–129; BP diastolic 53–81; PULSE 66–96; RESP 18–28; TEMP 97.6–98.3; O2SAT 93–97
[~2016-11-22] VITALS: Ht 157.5 cm; Wt 55.0 kg
[~2016-11-22 11:45] MED LIST changes: -ATOR1TAB18 PO; -ERGO1CAP30 PO; -HYDR-3799 PO; -XARE20TA PO
--- NOTE | 2016-11-22 12:19 | PD ---
Physical Exam Time Seen by Provider: 12:15 Narrative 76yo F c/o weakness for the past few days. C/o SOB since February after triple bypass that has unchanged; although she says about one a month she needs a thoracentesis. Denies chest pain. Patient seen in triage. Awaiting bed placement. VS reviewed. Data Data Last Documented VS Vital Signs Date Time Temp Pulse Resp B/P Pulse Ox O2 Delivery O2 Flow Rate FiO2 11/22/16 11:49 97.6 66 28 118/57 96 Room Air MDM Supervised Visit with MIKE: Sheyla Corey Nov 22, 2016 12:19
--- NOTE | 2016-11-22 13:40 | RADRPT ---
EXAM DATE/TIME: 11/22/2016 12:59 [facility] COMPARISON: CHEST PA & LAT, July 13, 2016, 8:18. INDICATIONS : Weakness, short of breath for 3 days, recent thoracentesis on right side MEDICAL HISTORY : Gastroesophageal reflux disease. Chronic obstructive pulmonary disease. Myocardial infarction. di abetic, A-fib, hypothyroidism SURGICAL HISTORY : CABG. Coronary artery stent. Gastric bypass. thoracentesis, lumbar fusion ENCOUNTER: Initial ACUITY: 3 days PAIN SCORE: 0/10 LOCATION: Bilateral chest FINDINGS: Median sternotomy wires. Moderate to large right-sided pleural effusion with associated right lower l obe airspace disease. Small left pleural effusion with associated left lower lobe airspace disease. C ardiac silhouette remains enlarged. Pulmonary vascularity is indistinct. Remainder of exam is unchang ed. CONCLUSION: 1. Cardiomegaly with positive fluid balance. 2. Moderate to large recurrent right pleural effusion and associated lower lobe airspace disease. 3. Small left pleural effusion with associated lower lobe airspace disease. Cali Crockett MD on November 22, 2016 at 13:35 Board Certified Radiologist. This report was verified electronically.
--- NOTE | 2016-11-22 14:13 | PD ---
HPI Chief Complaint: Respiratory Distress Time Seen by Provider: 14:13 Travel History International Travel<30 days: No Contact w/Intl Traveler<30days: No Traveled to known affect area: No History of Present Illness HPI 76-year-old female with history of CAD, NH with stent placement, CABG in 2016 with recurrent pleural effusions since then, diabetes, presents to emergency department today for evaluation area patient states that in addition to her worsening shortness of breath, she has been very weak over the last 3 days. She states this is not typical for her. She saw her sander machine last week, Dr. Barger in regards to the shortness of breath and he arranged for a drain to put in, however she has had barely any energy and her lower extremities are more swollen than they typically are. Denies any fever or chills. Denies any nausea or vomiting. He has had no bowel or bladder changes. No chest pain. She has no other symptoms to report at this time. PFSH Past Medical History Hx Anticoagulant Therapy: Yes Arthritis: Yes Asthma: No Atrial Fibrillation: Yes Autoimmune Disease: No Anxiety: Yes Depression: Yes Heart Rhythm Problems: Yes (A Fib) Cancer: No Cardiac Catheterization: Yes Cardiovascular Problems: Yes High Cholesterol: Yes Chemotherapy: No Chest Pain: No Congestive Heart Failure: Yes COPD: Yes Cerebrovascular Accident: No Coronary Artery Disease: Yes Diabetes: Yes Patient Takes Glucophage: No Diminished Hearing: Yes Endocrine: Yes Gastrointestinal Disorders: Yes GERD: Yes Genitourinary: No Hiatal Hernia: Yes Heparin Induced Thrombocytopen: No Hypertension: Yes Immune Disorder: No Kidney Stones: No Musculoskeletal: Yes Neurologic: Yes Psychiatric: Yes Reproductive: No Respiratory: Yes Migraines: No Pneumonia: Yes Radiation Therapy: No Renal Failure: No Seizures: No Sickle Cell Disease: No Sleep Apnea: Yes Thyroid Disease: Yes (Hypothyroid) Ulcer: Yes Past Surgical History Abdominal Surgery: Yes (gastric bypass 2009) AICD: No Arteriovenous Shunt: No Body Medical Devices: CHEST CLOSURE Cardiac Surgery: Yes (NH 2007 stent, CABG X 3 03/15/16) Coronary Artery Bypass Graft: Yes (X3 February 2016) Coronary Stent: Yes (X`1) Ear Surgery: No Endocrine Surgery: No Eye Surgery: Yes (bilateral cataract sx) Genitourinary Surgery: No Gynecologic Surgery: No Insulin Pump: No Joint Replacement: No Neurologic Surgery: No Oral Surgery: Yes (teeth extraction, wisdom) Pacemaker: No Thoracic Surgery: No Other Surgery: Yes Social History Alcohol Use: Yes (RARE) Tobacco Use: No Substance Use: No Allergies-Medications (Allergen,Severity, Reaction): Coded Allergies: Erythromycin (Verified Allergy, Unknown, 11/22/16) Lasix (Verified Allergy, Unknown, 11/22/16) Penicillin (Verified Allergy, Unknown, 11/22/16) *MDRO Multi-Drug Resistant Organism (Verified Adverse Reaction, Unknown, ) 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 - 09/15/2016 Reported Meds & Prescriptions Reported Meds & Active Scripts Active Bumetanide 1 Mg Tab 2 Mg PO DAILY Norvasc (Amlodipine Besylate) 5 Mg Tab 5 Mg PO DAILY Metoprolol Tartrate 25 Mg Tab 25 Mg PO Q12HR Novolog Inj (Insulin Aspart) 100 Unit/Ml Inj 1 Units SQ ACHS SLIDING SCALE Levemir Inj (Insulin Detemir) 1,000 unit/ 10 ML Vial 10 Units SQ DAILY Hydralazine (Hydralazine HCl) 25 Mg Tab 25 Mg PO Q8HR Bumetanide 1 Mg Tab 1 Mg PO DAILY@1800 Losartan (Losartan Potassium) 50 Mg Tab 50 Mg PO DAILY Xarelto (Rivaroxaban) 15 Mg Tab 15 Mg PO DAILY Ferrous Sulfate 325 Mg Tab 325 Mg PO BID Bumetanide 1 Mg Tab 1 Mg PO BID@09,18 Trazodone (Trazodone HCl) 50 Mg Tab 50 Mg PO HS 30 Days Klor-Con 10 (Potassium Chloride) 10 Meq Tab 10 Meq PO DAILY 7 Days Pantoprazole (Pantoprazole Sodium) 40 Mg Tab 40 Mg PO DAILY 30 Days Thera M Plus (Multivitamins/Minerals Therapeutic) 1 Tab 1 Tab PO DAILY [address] (Duloxetine HCl) 60 Mg Capdr 120 Mg PO DAILY 30 Days Lipitor (Atorvastatin Calcium) 10 Mg Tab 10 Mg PO HS 30 Days Aspirin Low Strength (Aspirin) 81 Mg Chew 81 Mg PO DAILY 30 Days Xanax (Alprazolam) 0.25 Mg Tab 0.25 Mg PO Q8HR PRN 30 Days Reported Metoprolol Tartrate 50 Mg Tab 50 Mg PO DAILY Diltiazem (Diltiazem HCl) 90 Mg Tab 90 Mg PO Q6 HR Novolog Inj (Insulin Aspart) 1,000 Unit/10 Ml Vial 2-10 Units SQ ACHS Sliding Scale Nitroglycerin SL (Nitroglycerin) 0.4 Mg Subl 0.4 Mg SL DIRECTED PRN ONE TABLET UNDER THE TONGUE NEEDED FOR CHEST PAIN, MAY REPEAT EVERY FIVE MINUTES FOR A TOTAL OF 3 DOSES OR CALL 911 IF NO RELIEF Valtrex (Valacyclovir HCl) 1 Gm Tab 1 Gm PO DAILY Drisdol (Ergocalciferol) 50,000 Unit Cap 50,000 Units PO WEEKLY ON MONDAYS Cyanocobalamin Inj (Cyanocobalamin) 1,000 Mcg/Ml Inj 1,000 Mcg IM EVERY 2 WEEKS Lantus Inj (Insulin Glargine) 100 Unit/Ml Inj 17 Units SQ HS Levothyroxine (Levothyroxine Sodium) 150 Mcg Tab 150 Mcg PO DAILY@0600 Fenofibrate 160 Mg Tab 160 Mg PO HS Review of Systems Except as stated in HPI: all other systems reviewed are Neg Physical Exam Narrative GENERAL: Chronically ill female patient, sitting up in bed, in no acute distress SKIN: Focused skin assessment warm/dry. HEAD: Atraumatic. Normocephalic. EYES: Pupils equal and round. No scleral icterus. No injection or drainage. ENT: No nasal bleeding or discharge. Mucous membranes pink and moist. NECK: Trachea midline. No JVD. CARDIOVASCULAR: Regular rate and rhythm. 2/6 systolic murmur appreciated. RESPIRATORY: No accessory muscle use. Absent right upper and lower lung. Clear left upper and lower lung. Even respirations. GASTROINTESTINAL: Abdomen soft, non-tender, nondistended. Hepatic and splenic margins not palpable. MUSCULOSKELETAL: No obvious deformities. No clubbing. No cyanosis. 2+ lower extremity edema. NEUROLOGICAL: Awake and alert. No obvious cranial nerve deficits. Motor grossly within normal limits. Normal speech. PSYCHIATRIC: Appropriate mood and affect; insight and judgment normal. Data Data Last Documented VS Vital Signs Date Time Temp Pulse Resp B/P Pulse Ox O2 Delivery O2 Flow Rate FiO2 11/22/16 16:08 87 20 124/64 93 Nasal Cannula 2 11/22/16 11:49 97.6 Orders Chest, Pa & Lat (11/22/16 ) Complete Blood Count With Diff (11/22/16 14:11) Basic Metabolic Panel (Bmp) (11/22/16 14:11) B-Type Natriuretic Peptide (11/22/16 14:11) Act Partial Throm Time (Ptt) (11/22/16 14:11) Prothrombin Time / Inr (Pt) (11/22/16 14:11) Magnesium (Mg) (11/22/16 14:11) Ckmb (Isoenzyme) Profile (11/22/16 14:11) Troponin I (11/22/16 14:11) Urinalysis - C+S If Indicated (11/22/16 14:11) Iv Access Insert/Monitor (11/22/16 14:11) Electrocardiogram (11/22/16 14:11) Ecg Monitoring (11/22/16 14:11) Oximetry (11/22/16 14:11) Oxygen Administration (11/22/16 14:11) Sodium Chloride 0.9% Flush (Ns Flush) (11/22/16 14:15) Methylprednisolone So Succ Inj (Solumedr (11/22/16 14:15) Albuterol-Ipratropium Neb (Duoneb Neb) (11/22/16 14:15) Admit To Inpatient (11/22/16 ) Arterial Blood Gas (Abg) (11/22/16 ) Admit Order (Ed Use Only) (11/22/16 16:32) Labs Laboratory Tests Test 11/22/16 11/22/16 14:20 15:10 White Blood Count 11.7 TH/MM3 Red Blood Count 3.80 MIL/MM3 Hemoglobin 10.1 GM/DL Hematocrit 31.1 % Mean Corpuscular Volume 81.9 FL Mean Corpuscular Hemoglobin 26.6 PG Mean Corpuscular Hemoglobin 32.5 % Concent Red Cell Distribution Width 16.2 % Platelet Count 604 TH/MM3 Mean Platelet Volume 8.4 FL Neutrophils (%) (Auto) 93.3 % Lymphocytes (%) (Auto) 2.0 % Monocytes (%) (Auto) 4.0 % Eosinophils (%) (Auto) 0.1 % Basophils (%) (Auto) 0.6 % Neutrophils # (Auto) 10.9 TH/MM3 Lymphocytes # (Auto) 0.2 TH/MM3 Monocytes # (Auto) 0.5 TH/MM3 Eosinophils # (Auto) 0.0 TH/MM3 Basophils # (Auto) 0.1 TH/MM3 CBC Comment DIFF FINAL Differential Comment Prothrombin Time 12.2 SEC Prothromb Time International 1.1 RATIO Ratio Activated Partial 31.1 SEC Thromboplast Time Sodium Level 137 MEQ/L Potassium Level 3.1 MEQ/L Chloride Level 91 MEQ/L Carbon Dioxide Level 37.8 MEQ/L Anion Gap 8 MEQ/L Blood Urea Nitrogen 85 MG/DL Creatinine 2.28 MG/DL Estimat Glomerular Filtration 21 ML/MIN Rate Random Glucose 64 MG/DL Calcium Level 10.1 MG/DL Magnesium Level 2.3 MG/DL Total Creatine Kinase 67 U/L Troponin I 0.10 NG/ML B-Type Natriuretic Peptide 385 PG/ML Urine Color YELLOW Urine Turbidity CLEAR Urine pH 5.0 Urine Specific [place] 1.008 Urine Protein NEG mg/dL Urine Glucose (UA) NEG mg/dL Urine Ketones NEG mg/dL Urine Occult Blood NEG Urine Nitrite NEG Urine Bilirubin NEG Urine Urobilinogen LESS THAN 2.0 MG/DL Urine Leukocyte Esterase NEG Urine WBC 1 /hpf Urine Squamous Epithelial <1 /hpf Cells Urine Bacteria RARE /hpf Urine Hyaline Casts 7 /lpf Urine Mucus FEW /lpf Microscopic Urinalysis Comment CULT NOT INDICATED MDM Medical Decision Making Medical Screen Exam Complete: Yes Emergency Medical Condition: Yes Medical Record Reviewed: Yes Differential Diagnosis Pneumonia versus influenza versus recurrent effusion versus electrolyte abnormality versus sepsis Narrative Course 76-year-old female presents to the emergency department for evaluation of worsening weakness in addition to shortness of breath. Patient has had recurrent lateral effusions requiring thoracentesis since her CABG in February 2016. Patient has absent breath sounds on the right. She has tachypneic. She is afebrile. Last Impressions Chest X-Ray 11/22/16 0000 Signed Impressions: Service Date/Time: Tuesday, November 22, 2016 12:59 - CONCLUSION: 1. Cardiomegaly with positive fluid balance. 2. Moderate to large recurrent right pleural effusion and associated lower lobe airspace disease. 3. Small left pleural effusion with associated lower lobe airspace disease. Cali Crockett MD Laboratory Tests Test 11/22/16 11/22/16 14:20 15:10 White Blood Count 11.7 TH/MM3 Red Blood Count 3.80 MIL/MM3 Hemoglobin 10.1 GM/DL Hematocrit 31.1 % Mean Corpuscular Volume 81.9 FL Mean Corpuscular Hemoglobin 26.6 PG Mean Corpuscular Hemoglobin 32.5 % Concent Red Cell Distribution Width 16.2 % Platelet Count 604 TH/MM3 Mean Platelet Volume 8.4 FL Neutrophils (%) (Auto) 93.3 % Lymphocytes (%) (Auto) 2.0 % Monocytes (%) (Auto) 4.0 % Eosinophils (%) (Auto) 0.1 % Basophils (%) (Auto) 0.6 % Neutrophils # (Auto) 10.9 TH/MM3 Lymphocytes # (Auto) 0.2 TH/MM3 Monocytes # (Auto) 0.5 TH/MM3 Eosinophils # (Auto) 0.0 TH/MM3 Basophils # (Auto) 0.1 TH/MM3 CBC Comment DIFF FINAL Differential Comment Prothrombin Time 12.2 SEC Prothromb Time International 1.1 RATIO Ratio Activated Partial 31.1 SEC Thromboplast Time Sodium Level 137 MEQ/L Potassium Level 3.1 MEQ/L Chloride Level 91 MEQ/L Carbon Dioxide Level 37.8 MEQ/L Anion Gap 8 MEQ/L Blood Urea Nitrogen 85 MG/DL Creatinine 2.28 MG/DL Estimat Glomerular Filtration 21 ML/MIN Rate Random Glucose 64 MG/DL Calcium Level 10.1 MG/DL Magnesium Level 2.3 MG/DL Total Creatine Kinase 67 U/L Troponin I 0.10 NG/ML B-Type Natriuretic Peptide 385 PG/ML Urine Color YELLOW Urine Turbidity CLEAR Urine pH 5.0 Urine Specific [place] 1.008 Urine Protein NEG mg/dL Urine Glucose (UA) NEG mg/dL Urine Ketones NEG mg/dL Urine Occult Blood NEG Urine Nitrite NEG Urine Bilirubin NEG Urine Urobilinogen LESS THAN 2.0 MG/DL Urine Leukocyte Esterase NEG Urine WBC 1 /hpf Urine Squamous Epithelial <1 /hpf Cells Urine Bacteria RARE /hpf Urine Hyaline Casts 7 /lpf Urine Mucus FEW /lpf Microscopic Urinalysis Comment CULT NOT INDICATED Patient's creatinine has doubled and is now 2.28. Her BUN is 85. Her troponin is elevated at 0.1. I discussed the patient with Dr. Cee. Patient will be admitted to [facility] hospitalist service. I have informed the patient and she is in agreement with this plan of care. Diagnosis Primary Impression: Dyspnea Qualified Code: R06.00 - Dyspnea, unspecified type Additional Impressions: Recurrent right pleural effusion Acute kidney failure Qualified Code: N17.9 - Acute renal failure, unspecified acute renal failure type Admitting Information Admitting Physician Requests: Admit Condition: Stable Patricia Scott Nov 22, 2016 14:13
[2016-11-22] MEDS ORDERED: SODIUM CHLORIDE 0.9% FLUSH 10 ML FLUSH IVF PRN (14:15)
[2016-11-22] MEDS ORDERED: methylPREDNISolone SOD SUCC 125 MG/2 ML VIAL IVP ONE (14:15)
[2016-11-22 14:35] LABS: AUTOMATED NEUTROPHIL # 10.9 TH/MM3 (1.8-7.7); BASOPHIL # 0.1 TH/MM3 (0-0.2); BASOPHIL % 0.6 % (0.0-2.0); EOSINOPHIL % 0.1 % (0.0-4.0); HEMATOCRIT 31.1 % (35.0-46.0); HEMO FLAGS DIFF FINAL; LYMPHOCYTE # 0.2 TH/MM3 (1.0-4.8); MEAN CELL VOLUME 81.9 FL (80.0-100.0); MEAN CORPUSCULAR HEMOGLOBIN 26.6 PG (27.0-34.0); MEAN CORPUSCULAR HGB CONC 32.5 % (32.0-36.0); NEUT % 93.3 % (16.0-70.0); PLATELET COUNT 604 TH/MM3 (150-450); RED CELL DISTRIBUTION WIDTH 16.2 % (11.6-17.2); WHITE BLOOD COUNT 11.7 TH/MM3 (4.0-11.0)
[2016-11-22] MEDS: RESP: ALBUTEROL 2.5 MG/IPRATROPIUM 0.5 MG NEB (SCH) INH ×2 (14:35→14:36)
[2016-11-22 14:50] LABS: APTT (PATIENT) 31.1 SEC (24.3-30.1); INTERNATIONAL NORMALIZED RATIO 1.1 RATIO; PROTHROMBIN TIME - PATIENT 12.2 SEC (9.8-11.6)
[2016-11-22 14:57] LABS: BICARBONATE 37.8 MEQ/L (21.0-32.0); MAGNESIUM 2.3 MG/DL (1.5-2.5); POTASSIUM 3.1 MEQ/L (3.5-5.1)
[2016-11-22 15:33] LABS: BACTERIA, URINE RARE /hpf; BLOOD, URINE NEG (NEG); COMMENT (UR) CULT NOT INDICATED; CULTURE IF INDICATED CULT NOT INDICATED; GLUCOSE,URINE NEG (NEG); HYALINE CAST, URINE 7 /lpf (RARE); KETONE, URINE NEG (NEG); MUCUS URINE FEW /lpf (OCC); NITRITE,URINE NEG (NEG); SQUAMOUS EPITHELIAL CELL URINE <1 /hpf (0-5); URINE COLOR YELLOW (YELLW/STRAW)
[2016-11-22 16:47] LABS: BLOOD GAS BASE EXCESS 8.4 mmol/L (-2-2); BLOOD GAS CARBOXYHEMOGLOBIN 1.3 % (0-4); BLOOD GAS HCO3 33 mmol/L (22-26); BLOOD GAS METHEMOGLOBIN 1.1 % (0-2); BLOOD GAS O2 HGB SATURATION 92 % (90-100); BLOOD GAS PCO2 49 mmHg (38-42); BLOOD GAS PO2 76 mmHG (61-120); BLOOD GAS TOTAL HGB 9.2 G/DL (12.0-16.0); CRITICAL VALUE NO; DRAW SITE RT RADIAL; LITER FLOW 2 L/M; NUMBER OF ARTERIAL PUNCTURES 1; OXYGEN DEVICE NASAL CANNULA; STAT YES; TEMP CORR TO 98.6
--- NOTE | 2016-11-22 17:22 | HHI.HP ---
HPI Service [facility] Primary Care Physician Remigio Lee DO Admission Diagnosis Generalized weakness; JULIANE; Recurrent R pleural effusion Diagnoses: Chief Complaint: Generalized weakness Travel History International Travel<30 Days: No Contact w/Intl Traveler <30 Da: No Traveled to Known Affected Are: No History of Present Illness 76-year-old female with a past medical history of recurrent pleural effusion, CAD, hypothyroidism, diastolic CHF with MR, Domenico. fib off anticoagulation, HTN, depression, HLD, DM, COPD on O2, GERD who is presenting with generalized weakness and fatigue. The patient states that since Tuesday she has been having worsening weakness, fatigue, no energy, dyspnea on exertion. The patient denies any recent medication changes, has been compliant with diuretics. She reports good urine output. She denies any change in her lower extremity edema. She states her mouth is extremely dry and she is thirsty. She does state that she's been having more palpitations lately. She denies any chest pain, recent illness, fever, chills, cough. She states that she saw her labor arbitrator hearing office, Dr. Brunner, one week ago. She states that she had a repeat chest x-ray done which was only a week after previous thoracentesis and states that her lung had "fill back up". She states that her labor arbitrator hearing office had ordered for her to have a permanent drain put in so she would not have to have recurrent thoracentesis, however that has not yet been performed. Patient states she is on home oxygen as needed. Her oxygen saturation is currently 86 87% on room air. She is ambulatory, but complains of fatigue and unsteadiness on her feet. Review of Systems Except as stated in HPI: all other systems reviewed are Neg Past Family Social History Past Medical History Recurrent right pleural effusion Coronary artery disease Diastolic heart failure with mitral regurgitation Hyperthyroidism Atrial fibrillation, off anticoagulation per pulmonology Hypertension Depression Hyperlipidemia Diabetes mellitus COPD on home oxygen as needed GERD Past Surgical History Coronary stent placement in 2007 CABG with maze procedure in 2016 Cataract surgery bilaterally Gastric bypass 2010 Back surgery Reported Medications Reported Meds & Active Scripts Reported, unconfirmed Bumetanide 1 Mg Tab 2 Mg PO DAILY Norvasc (Amlodipine Besylate) 5 Mg Tab 5 Mg PO DAILY Metoprolol Tartrate 25 Mg Tab 25 Mg PO Q12HR Novolog Inj (Insulin Aspart) 100 Unit/Ml Inj 1 Units SQ ACHS SLIDING SCALE Levemir Inj (Insulin Detemir) 1,000 unit/ 10 ML Vial 10 Units SQ DAILY Hydralazine (Hydralazine HCl) 25 Mg Tab 25 Mg PO Q8HR Bumetanide 1 Mg Tab 1 Mg PO DAILY@1800 Losartan (Losartan Potassium) 50 Mg Tab 50 Mg PO DAILY Xarelto (Rivaroxaban) 15 Mg Tab 15 Mg PO DAILY Ferrous Sulfate 325 Mg Tab 325 Mg PO BID Bumetanide 1 Mg Tab 1 Mg PO BID@09,18 Trazodone (Trazodone HCl) 50 Mg Tab 50 Mg PO HS 30 Days Klor-Con 10 (Potassium Chloride) 10 Meq Tab 10 Meq PO DAILY 7 Days Pantoprazole (Pantoprazole Sodium) 40 Mg Tab 40 Mg PO DAILY 30 Days Thera M Plus (Multivitamins/Minerals Therapeutic) 1 Tab 1 Tab PO DAILY [address] (Duloxetine HCl) 60 Mg Capdr 120 Mg PO DAILY 30 Days Lipitor (Atorvastatin Calcium) 10 Mg Tab 10 Mg PO HS 30 Days Aspirin Low Strength (Aspirin) 81 Mg Chew 81 Mg PO DAILY 30 Days Xanax (Alprazolam) 0.25 Mg Tab 0.25 Mg PO Q8HR PRN 30 Days Metoprolol Tartrate 50 Mg Tab 50 Mg PO DAILY Diltiazem (Diltiazem HCl) 90 Mg Tab 90 Mg PO Q6 HR Novolog Inj (Insulin Aspart) 1,000 Unit/10 Ml Vial 2-10 Units SQ ACHS Sliding Scale Nitroglycerin SL (Nitroglycerin) 0.4 Mg Subl 0.4 Mg SL DIRECTED PRN ONE TABLET UNDER THE TONGUE NEEDED FOR CHEST PAIN, MAY REPEAT EVERY FIVE MINUTES FOR A TOTAL OF 3 DOSES OR CALL 911 IF NO RELIEF Valtrex (Valacyclovir HCl) 1 Gm Tab 1 Gm PO DAILY Drisdol (Ergocalciferol) 50,000 Unit Cap 50,000 Units PO WEEKLY ON MONDAYS Cyanocobalamin Inj (Cyanocobalamin) 1,000 Mcg/Ml Inj 1,000 Mcg IM EVERY 2 WEEKS Lantus Inj (Insulin Glargine) 100 Unit/Ml Inj 17 Units SQ HS Levothyroxine (Levothyroxine Sodium) 150 Mcg Tab 150 Mcg PO DAILY@0600 Fenofibrate 160 Mg Tab 160 Mg PO HS Allergies: Coded Allergies: Erythromycin (Verified Allergy, Unknown, 11/22/16) Lasix (Verified Allergy, Unknown, 11/22/16) Penicillin (Verified Allergy, Unknown, 11/22/16) *MDRO Multi-Drug Resistant Organism (Verified Adverse Reaction, Unknown, ) 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 - 09/15/2016 Active Ordered Medications Current Medications Medications (Trade) Dose Ordered Sig/Seema Route Start Time Stop Time Status Last Admin (NS Flush) 2 ml UNSCH PRN IVF 11/22/16 14:15 (KCl) 40 meq ONCE ONCE PO 11/22/16 17:00 11/22/16 17:01 UNV (NS Flush) 2 ml BID IV FLUSH 11/22/16 21:00 UNV (Heparin Inj) 5,000 units Q12H SQ 11/22/16 17:30 UNV (D50w (Vial) Inj) 50 ml UNSCH PRN IV 11/22/16 17:30 UNV (Glucagon Inj) 1 mg UNSCH PRN OTHER 11/22/16 17:30 UNV Family History Father and mother had heart attacks Social History Quit smoking 30 years ago, smoked 3 packs per day prior to that Denies any alcohol or drug use Lives at home by herself Physical Exam Vital Signs Vital Signs Date Time Temp Pulse Resp B/P Pulse Ox O2 Delivery O2 Flow Rate FiO2 11/22/16 16:08 87 20 124/64 93 Nasal Cannula 2 11/22/16 14:25 96 Nasal Cannula 2 11/22/16 14:25 96 Nasal Cannula 2 11/22/16 11:49 97.6 66 28 118/57 96 Room Air Physical Exam GENERAL: Well-developed well-nourished. In no acute distress. SKIN: Warm and dry. No lesions noted. HEENT: Normocephalic. Pupils equal and round. Mucous membranes dry. CARDIOVASCULAR: Irregular rate and rhythm. No murmur appreciated. RESPIRATORY: No accessory muscle use. Decreased breath sounds in the right lung base. GASTROINTESTINAL: Abdomen soft, non-tender, nondistended. Bowel sounds x4. MUSCULOSKELETAL: No obvious deformities. No clubbing or cyanosis. 1+ lower extremity pitting edema. NEUROLOGICAL: Awake and alert. No focal neurological deficits. Moves upper and lower extremities spontaneously. Normal speech. Strength 5/5. PSYCHIATRIC: Appropriate mood and affect; insight and judgment normal. Laboratory Laboratory Tests Test 11/22/16 11/22/16 11/22/16 14:20 15:10 16:37 White Blood Count 11.7 Red Blood Count 3.80 Hemoglobin 10.1 Hematocrit 31.1 Mean Corpuscular Volume 81.9 Mean Corpuscular Hemoglobin 26.6 Mean Corpuscular Hemoglobin 32.5 Concent Red Cell Distribution Width 16.2 Platelet Count 604 Mean Platelet Volume 8.4 Neutrophils (%) (Auto) 93.3 Lymphocytes (%) (Auto) 2.0 Monocytes (%) (Auto) 4.0 Eosinophils (%) (Auto) 0.1 Basophils (%) (Auto) 0.6 Neutrophils # (Auto) 10.9 Lymphocytes # (Auto) 0.2 Monocytes # (Auto) 0.5 Eosinophils # (Auto) 0.0 Basophils # (Auto) 0.1 CBC Comment DIFF FINAL Differential Comment Prothrombin Time 12.2 Prothromb Time International 1.1 Ratio Activated Partial 31.1 Thromboplast Time Sodium Level 137 Potassium Level 3.1 Chloride Level 91 Carbon Dioxide Level 37.8 Anion Gap 8 Blood Urea Nitrogen 85 Creatinine 2.28 Estimat Glomerular Filtration 21 Rate Random Glucose 64 Calcium Level 10.1 Magnesium Level 2.3 Total Creatine Kinase 67 Troponin I 0.10 B-Type Natriuretic Peptide 385 Urine Color YELLOW Urine Turbidity CLEAR Urine pH 5.0 Urine Specific [place] 1.008 Urine Protein NEG Urine Glucose (UA) NEG Urine Ketones NEG Urine Occult Blood NEG Urine Nitrite NEG Urine Bilirubin NEG Urine Urobilinogen LESS THAN 2.0 Urine Leukocyte Esterase NEG Urine WBC 1 Urine Squamous Epithelial <1 Cells Urine Bacteria RARE Urine Hyaline Casts 7 Urine Mucus FEW Microscopic Urinalysis Comment CULT NOT INDICATED Blood Gas Puncture Site RT RADIAL Blood Gas Patient Temperature 98.6 Blood Gas HCO3 33 Blood Gas Base Excess 8.4 Blood Gas Oxygen Saturation 92 Arterial Blood pH 7.44 Arterial Blood Partial 49 Pressure CO2 Arterial Blood Partial 76 Pressure O2 Arterial Blood Oxygen Content 12.0 Arterial Blood 1.3 Carboxyhemoglobin Arterial Blood Methemoglobin 1.1 Blood Gas Hemoglobin 9.2 Oxygen Delivery Device NASAL CANNULA Blood Gas Liter Flow 2 Result Diagram: 11/22/16 1420 11/22/16 1420 Imaging Last Impressions Chest X-Ray 11/22/16 0000 Signed Impressions: Service Date/Time: Tuesday, November 22, 2016 12:59 - CONCLUSION: 1. Cardiomegaly with positive fluid balance. 2. Moderate to large recurrent right pleural effusion and associated lower lobe airspace disease. 3. Small left pleural effusion with associated lower lobe airspace disease. Cali Crockett MD Assessment and Plan Assessment and Plan 76-year-old female with a past medical history of recurrent pleural effusion, CAD, hypothyroidism, diastolic CHF with MR, A. fib off anticoagulation, HTN, depression, HLD, DM, COPD on O2, GERD who is presenting with generalized weakness and fatigue Generalized weakness/fatigue: Likely multifactorial from hypoxia, pleural effusion, mitral regurgitation, acute dehydration, hypokalemia. Treat underlying etiologies as below. Trend troponins for stability. Replace potassium. PT eval. Patient agreeable for palliative care he evaluation. JULIANE on CKD: Creatinine 2.28, previously 1.1 on 09/22/16. Patient appears clinically dry on exam with third spacing. Likely secondary to over diuresis. Hold diuretics for now. Consult nephrology for assistance. Recurrent right pleural effusion: Chest x-ray today and 11/11 images reviewed. Increasing frequency of recurrence of pleural effusion. Consult pulmonology, likely needs permanent pleural catheter.- COPD: Acute on chronic respiratory failure. Patient is currently hypoxic. On home oxygen as needed. ABG reviewed. Supplemental O2 as needed. Chronic Diastolic CHF with moderate to severe MR and severe pulmonary hypertension: Her cardiogram 09/16/16 shows normal systolic function, EF 5560 % , moderately severe mitral regurgitation, severe pulmonary hypertension. BNP 385, previously 424 on 09/20/16. Appears compensated. Holding diuretics as above. Continue metoprolol. Atrial fibrillation: Previously on Xarelto, however taken off by pulmonology due to frequent thoracentesis. Continue metoprolol and Cardizem for rate control. Hold aspirin for now pending possible intervention for effusion. Diabetes mellitus: Continue home baseline insulin. Monitor Accu-Cheks. SSI coverage. Other chronic medical conditions include HTN, HLD, depression/anxiety, hypothyroidism, GERD: Stable at this time and will continue home medications as indicated. DVT prophylaxis: Heparin Discussed Condition With Patient, [employer], Dr. Cee Attending Statement 76 years old female history of valvular heart disease on diuretics with recurrent pleural effusion requiring recurrent thoracentesis admitted for generalized weakness found to be in JULIANE - PE_ awake and alert decreased breath sounds right base to mid irregular rhythm trace edema neuro exam unremarkable -Recurrent pleural effusion- requiring repeated thoracentesis- rapidly accumulating - hold diuretics for now due to JULIANE - Pulmonary consulted- ff as OP by Dr. Gardner- Pigtail catheter -IR consult in am . ? candidate for pleurodesis - but the rapid accumulation may wash out the talc - Dr. Hall consulted-- was seen by him in the past admissions- for definite plan for this condition - Palliative care consult Irineo Tavares Nov 22, 2016 17:22 Kortney Cee MD Nov 22, 2016 18:52
[2016-11-22] MEDS ORDERED: DEXTROSE 50% IN WATER 50 ML VIAL(D50) IV PRN (17:30)
[2016-11-22] MEDS ORDERED: GLUCAGON 1 MG/ML VIAL OTHER PRN (17:30)
[2016-11-22] MEDS ORDERED: XARE20TA PO (17:32)
[2016-11-22] MEDS ORDERED: ATOR1TAB18 PO (17:32)
[2016-11-22] MEDS ORDERED: BUME1TAB PO (17:34)
[2016-11-22] MEDS ORDERED: HYDR-3799 PO (17:38)
[2016-11-22] MEDS ORDERED: ERGO1CAP30 PO (17:38)
[2016-11-22] MEDS ORDERED: POTA-243 PO (17:40)
[2016-11-22] MEDS ORDERED: ALPRAZolam 0.25 MG TAB PO PRN (17:45)
[2016-11-22] MEDS ORDERED: RESP: ALBUTEROL 2.5 MG/IPRATROPIUM 0.5 MG NEB (PRN) NEB (18:00)
--- NOTE | 2016-11-22 18:11 | PD.CONS ---
HPI Service Nephrology Consult Requested By Dr. Cee Reason for Consult ARF Primary Care Physician Remigio Lee, DO History of Present Illness Patient is 76-year-old female with history of recurrent right pleural effusion, congestive heart failure, MR, hypertension who had been admitted after having increasing shortness of breath, noted to have right pleural effusion and her creatinine is high at 2.2, her baseline creatinine was 1.01 in August 2016, neither any dysuria burning pain of kidney stones or use of nonsteroidal anti- inflammatory drugs. Review of Systems Constitutional: COMPLAINS OF: Fatigue Respiratory: COMPLAINS OF: Shortness of breath Cardiovascular: COMPLAINS OF: Palpitations Past Family Social History Allergies: Coded Allergies: Erythromycin (Verified Allergy, Unknown, 11/22/16) Lasix (Verified Allergy, Unknown, 11/22/16) Penicillin (Verified Allergy, Unknown, 11/22/16) *MDRO Multi-Drug Resistant Organism (Verified Adverse Reaction, Unknown, ) 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 - 09/15/2016 Past Medical History Hypertension Depression Hyperlipidemia Diabetes mellitus COPD on home oxygen as needed GERD Recurrent right pleural effusion Coronary artery disease Diastolic heart failure with mitral regurgitation Hyperthyroidism Atrial fibrillation, off anticoagulation per pulmonology Past Surgical History Cataract surgery bilaterally Coronary stent placement in 2007 Gastric bypass 2009 CABG with maze procedure in 2016 Back surgery Reported Medications Reported Meds & Active Scripts Active Norvasc (Amlodipine Besylate) 5 Mg Tab 5 Mg PO DAILY Metoprolol Tartrate 25 Mg Tab 25 Mg PO Q12HR Losartan (Losartan Potassium) 50 Mg Tab 50 Mg PO DAILY Trazodone (Trazodone HCl) 50 Mg Tab 50 Mg PO HS 30 Days Pantoprazole (Pantoprazole Sodium) 40 Mg Tab 40 Mg PO DAILY 30 Days Thera M Plus (Multivitamins/Minerals Therapeutic) 1 Tab 1 Tab PO DAILY [address] (Duloxetine HCl) 60 Mg Capdr 120 Mg PO DAILY 30 Days Aspirin Low Strength (Aspirin) 81 Mg Chew 81 Mg PO DAILY 30 Days Xanax (Alprazolam) 0.25 Mg Tab 0.25 Mg PO Q8HR PRN 30 Days Reported Klor-Con 10 (Potassium Chloride) 10 Meq Tab 10 Meq PO HS Hydralazine HCl 25 Mg Tablet 25 Mg PO Q8HR Ergocalciferol 50,000 Unit Cap 50,000 Units PO Q7D ON MONDAYS Bumetanide 1 Mg Tab 1 Mg PO TID Xarelto (Rivaroxaban) 20 Mg Tab 20 Mg PO DAILY Atorvastatin (Atorvastatin Calcium) 80 Mg Tab 80 Mg PO HS Diltiazem (Diltiazem HCl) 90 Mg Tab 90 Mg PO Q6 HR Novolog Inj (Insulin Aspart) 1,000 Unit/10 Ml Vial 2-10 Units SQ ACHS Sliding Scale Nitroglycerin SL (Nitroglycerin) 0.4 Mg Subl 0.4 Mg SL DIRECTED PRN ONE TABLET UNDER THE TONGUE NEEDED FOR CHEST PAIN, MAY REPEAT EVERY FIVE MINUTES FOR A TOTAL OF 3 DOSES OR CALL 911 IF NO RELIEF Valtrex (Valacyclovir HCl) 1 Gm Tab 1 Gm PO HS Cyanocobalamin Inj (Cyanocobalamin) 1,000 Mcg/Ml Inj 1,000 Mcg IM EVERY 2 WEEKS Lantus Inj (Insulin Glargine) 100 Unit/Ml Inj 15-17 Units SQ HS Levothyroxine (Levothyroxine Sodium) 150 Mcg Tab 150 Mcg PO DAILY@0600 Fenofibrate 160 Mg Tab 160 Mg PO HS Active Ordered Medications Current Medications Medications (Trade) Dose Ordered Sig/Seema Route Start Time Stop Time Status Last Admin (NS Flush) 2 ml UNSCH PRN IVF 11/22/16 14:15 (KCl) 40 meq ONCE ONCE PO 11/22/16 17:00 11/22/16 17:01 UNV (NS Flush) 2 ml BID IV FLUSH 11/22/16 21:00 UNV (Heparin Inj) 5,000 units Q12H SQ 11/22/16 17:30 UNV (D50w (Vial) Inj) 50 ml UNSCH PRN IV 11/22/16 17:30 UNV (Glucagon Inj) 1 mg UNSCH PRN OTHER 11/22/16 17:30 UNV (Levemir Inj) 15 units HS SQ 11/22/16 21:00 UNV (Xanax) 0.25 mg Q8HR PRN PO 11/22/16 17:45 UNV (Norvasc) 5 mg DAILY PO 11/23/16 09:00 UNV (Lipitor) 80 mg HS PO 11/22/16 21:00 UNV (Cardizem) 90 mg Q6HR PO 11/22/16 18:00 UNV (Cymbalta Dr) 120 mg DAILY PO 11/23/16 09:00 UNV (Apresoline) 25 mg Q8HR PO 11/22/16 22:00 UNV (Synthroid) 150 mcg DAILY@0600 PO 11/23/16 06:00 UNV (Lopressor) 25 mg Q12HR PO 11/22/16 21:00 UNV (Protonix) 40 mg DAILY PO 11/23/16 09:00 UNV (Desyrel) 50 mg HS PO 11/22/16 21:00 UNV (Valtrex) 1,000 mg HS PO 11/22/16 21:00 UNV Non-Formulary Medication 160 mg HS PO 11/22/16 21:00 UNV Family History Noncontributory Social History Denies smoking or alcohol use Physical Exam Vital Signs Vital Signs Date Time Temp Pulse Resp B/P Pulse Ox O2 Delivery O2 Flow Rate FiO2 11/22/16 16:08 87 20 124/64 93 Nasal Cannula 2 11/22/16 14:25 96 Nasal Cannula 2 11/22/16 14:25 96 Nasal Cannula 2 11/22/16 11:49 97.6 66 28 118/57 96 Room Air Physical Exam GENERAL: Well-nourished, well-developed patient. SKIN: Warm and dry. HEAD: Normocephalic. EYES: No scleral icterus. No injection or drainage. NECK: Supple, trachea midline. No JVD or lymphadenopathy. CARDIOVASCULAR: irregular RESPIRATORY: Breath sounds diminished entry at right base GASTROINTESTINAL: Abdomen soft, non-tender, nondistended. EXTREMITIES: No cyanosis, or edema. NEUROLOGICAL: Awake, alert, and oriented x 3. Non-focal. Laboratory Laboratory Tests Test 11/22/16 11/22/16 11/22/16 14:20 15:10 16:37 White Blood Count 11.7 Red Blood Count 3.80 Hemoglobin 10.1 Hematocrit 31.1 Mean Corpuscular Volume 81.9 Mean Corpuscular Hemoglobin 26.6 Mean Corpuscular Hemoglobin 32.5 Concent Red Cell Distribution Width 16.2 Platelet Count 604 Mean Platelet Volume 8.4 Neutrophils (%) (Auto) 93.3 Lymphocytes (%) (Auto) 2.0 Monocytes (%) (Auto) 4.0 Eosinophils (%) (Auto) 0.1 Basophils (%) (Auto) 0.6 Neutrophils # (Auto) 10.9 Lymphocytes # (Auto) 0.2 Monocytes # (Auto) 0.5 Eosinophils # (Auto) 0.0 Basophils # (Auto) 0.1 CBC Comment DIFF FINAL Differential Comment Prothrombin Time 12.2 Prothromb Time International 1.1 Ratio Activated Partial 31.1 Thromboplast Time Sodium Level 137 Potassium Level 3.1 Chloride Level 91 Carbon Dioxide Level 37.8 Anion Gap 8 Blood Urea Nitrogen 85 Creatinine 2.28 Estimat Glomerular Filtration 21 Rate Random Glucose 64 Calcium Level 10.1 Magnesium Level 2.3 Total Creatine Kinase 67 Troponin I 0.10 B-Type Natriuretic Peptide 385 Urine Color YELLOW Urine Turbidity CLEAR Urine pH 5.0 Urine Specific [place] 1.008 Urine Protein NEG Urine Glucose (UA) NEG Urine Ketones NEG Urine Occult Blood NEG Urine Nitrite NEG Urine Bilirubin NEG Urine Urobilinogen LESS THAN 2.0 Urine Leukocyte Esterase NEG Urine WBC 1 Urine Squamous Epithelial <1 Cells Urine Bacteria RARE Urine Hyaline Casts 7 Urine Mucus FEW Microscopic Urinalysis Comment CULT NOT INDICATED Blood Gas Puncture Site RT RADIAL Blood Gas Patient Temperature 98.6 Blood Gas HCO3 33 Blood Gas Base Excess 8.4 Blood Gas Oxygen Saturation 92 Arterial Blood pH 7.44 Arterial Blood Partial 49 Pressure CO2 Arterial Blood Partial 76 Pressure O2 Arterial Blood Oxygen Content 12.0 Arterial Blood 1.3 Carboxyhemoglobin Arterial Blood Methemoglobin 1.1 Blood Gas Hemoglobin 9.2 Oxygen Delivery Device NASAL CANNULA Blood Gas Liter Flow 2 Result Diagram: 11/22/16 1420 11/22/16 1420 Imaging Last Impressions Chest X-Ray 11/22/16 0000 Signed Impressions: Service Date/Time: Tuesday, November 22, 2016 12:59 - CONCLUSION: 1. Cardiomegaly with positive fluid balance. 2. Moderate to large recurrent right pleural effusion and associated lower lobe airspace disease. 3. Small left pleural effusion with associated lower lobe airspace disease. Cali Crockett MD Assessment and Plan Problem List: (1) JULIANE (acute kidney injury) Plan: Likely due to diuresis She has mechanical heart disease and this needs to be corrected diuretics should be used cautiously (2) CHF (congestive heart failure) Plan: Patient has diastolic dysfunction and also has recurrent pleural effusion with valvular heart disease (3) Acute on chronic diastolic CHF (congestive heart failure) Plan: Valvular heart disease (4) Recurrent right pleural effusion Plan: follow up pulmonary Ifeanyi,Sajid MD Nov 22, 2016 18:11
[2016-11-22] MEDS ORDERED: POTASSIUM CHLORIDE 20 MEQ CONTROLLED RELEASE TAB PO ONE (19:15)
--- NOTE | 2016-11-22 19:25 | RADRPT ---
EXAM DATE/TIME: 11/22/2016 19:11 [facility] COMPARISON: CHEST PA & LAT, November 22, 2016, 12:59. CHEST SINGLE AP, September 16, 2016, 11:47. INDICATIONS : Short of breath. Bilateral effusions right greater than left MEDICAL HISTORY : Gastroesophageal reflux disease. Chronic obstructive pulmonary disease. Myocardial infarction. di abetic, A-fib, hypothyroidism SURGICAL HISTORY : CABG. Coronary artery stent. Gastric bypass. diabetic, A-fib, hypothyroidism, right side thoracentesi si ENCOUNTER: Initial ACUITY: 4 - 6 months PAIN SCORE: 0/10 LOCATION: Right chest FINDINGS: A single AP erect view of the chest was obtained and again demonstrates the patient is status post me jovanny sternotomy. There is a moderate to large right effusion again noted without significant change. There is a small left effusion. The heart size appears prominent. There is patchy perihilar opacities . The patient is rotated to the right and there are multiple overlying electrocardiogram leads. elect rocardiogram leads. CONCLUSION: 1. A lateral pleural effusions right greater than left without significant change. Cardiomegaly Nadir Hansen MD on November 22, 2016 at 19:21 Board Certified Radiologist. This report was verified electronically.
[2016-11-22] MEDS: DILTIAZEM HCL 90 MG TAB PO SCH (20:00)
[2016-11-22] MEDS: HEPARIN SODIUM - SQ 10,000 UNITS/ML VIAL SQ SCH (20:16)
[2016-11-22] MEDS: INSULIN ASPART SUPPLEMENTAL SCALE SQ SCH (21:00)
[2016-11-22] MEDS ORDERED: NON-FORMULARY DRUG (Fenofibrate 160 MG) PO SCH (21:00)
[2016-11-22] MEDS: traZODone HCL 50 MG TAB PO SCH (21:58)
[2016-11-22] MEDS: METOPROLOL TARTRATE 25 MG TAB PO SCH (21:58)
[2016-11-22] MEDS: valACYclovir HCL 500 MG TAB PO SCH (21:58)
[2016-11-22] MEDS: hydrALAZINE HCL 25 MG TAB PO SCH (21:58)
[2016-11-22] MEDS: ATORVASTATIN 80 MG TAB PO SCH (21:58)
[2016-11-22] MEDS: SODIUM CHLORIDE 0.9% FLUSH 10 ML FLUSH IV FLUSH SCH (21:59)
[2016-11-22] MEDS: INSULIN DETEMIR 100 UNITS/ML VIAL SQ SCH (22:08)
[2016-11-23] VITALS (19 sets, daily range): BP systolic 96–169; BP diastolic 50–71; PULSE 60–108; RESP 18–22; TEMP 98.1–98.8; O2SAT 96–98
[2016-11-23] MEDS: DILTIAZEM HCL 90 MG TAB PO SCH ×4 (00:15→17:40)
[2016-11-23] MEDS: LEVOTHYROXINE SODIUM 150 MCG TAB PO SCH (06:07)
[2016-11-23] MEDS: hydrALAZINE HCL 25 MG TAB PO SCH ×3 (06:07→21:02)
[2016-11-23] MEDS: INSULIN ASPART SUPPLEMENTAL SCALE SQ SCH ×4 (06:10→21:00)
[2016-11-23 07:29] LABS: AUTOMATED NEUTROPHIL # 4.4 TH/MM3 (1.8-7.7); BASOPHIL % 0.7 % (0.0-2.0); HEMATOCRIT 25.7 % (35.0-46.0); HEMO FLAGS DIFF FINAL; LYMPH % 4.5 % (9.0-44.0); LYMPHOCYTE # 0.2 TH/MM3 (1.0-4.8); MEAN CELL VOLUME 80.8 FL (80.0-100.0); MEAN CORPUSCULAR HEMOGLOBIN 27.5 PG (27.0-34.0); MONO % 5.2 % (0.0-8.0); NEUT % 89.6 % (16.0-70.0); PLATELET COUNT 474 TH/MM3 (150-450); RED BLOOD COUNT 3.18 MIL/MM3 (4.00-5.30); RED CELL DISTRIBUTION WIDTH 16.4 % (11.6-17.2); WHITE BLOOD COUNT 4.9 TH/MM3 (4.0-11.0)
[2016-11-23 07:53] LABS: ALKALINE PHOSPHATASE 191 U/L (45-117); ALT (GPT) 71 U/L (10-53); ANION GAP 7 MEQ/L (5-15); AST (GOT) 137 U/L (15-37); BICARBONATE 34.8 MEQ/L (21.0-32.0); BLOOD UREA NITROGEN 88 MG/DL (7-18); CHLORIDE 95 MEQ/L (98-107); GLOMERULAR FILTRATION RATE 21 ML/MIN (>89); SODIUM (NA) 137 MEQ/L (136-145); TOTAL BILIRUBIN ADULT 1.2 MG/DL (0.2-1.0)
[2016-11-23] MEDS: HEPARIN SODIUM - SQ 10,000 UNITS/ML VIAL SQ SCH ×2 (08:00→21:03)
[2016-11-23 08:09] LABS: POTASSIUM 2.9 MEQ/L (3.5-5.1)
[2016-11-23] MEDS ORDERED: DULoxetine HCl DR 60 MG CAP PO SCH (09:00)
[2016-11-23] MEDS: METOPROLOL TARTRATE 25 MG TAB PO SCH ×2 (09:20→21:01)
[2016-11-23] MEDS: POTASSIUM CHLOR 10 MEQ PREMIX 100 ML IV SCH ×3 (09:20→10:30)
[2016-11-23] MEDS: amLODIPine BESYLATE 5 MG TAB PO SCH (09:20)
[2016-11-23] MEDS: PANTOPRAZOLE SOD 40 MG DELAYED RELEASE TAB PO SCH (09:20)
--- NOTE | 2016-11-23 10:35 | MB ---
cc: [facility] DATE OF CONSULTATION 11/22/2016 REQUESTING PHYSICIAN Irineo Tavares REASON FOR CONSULTATION Recurrent pleural effusion. PRESENT ILLNESS Ms. Garcia is a pleasant 76-year-old white female with a history of recurrent pleural effusion, history of coronary artery disease status post bypass and stent placement. The patient feels short of breath. She mainly came to the hospital because of shortness of breath and over the last few years suddenly she became so weak that she could not even walk and did not have any fever or chills. No night sweats. No nausea or vomiting or further worsening of her symptoms. She came to the hospital. She had a chest x-ray done which showed moderately large right pleural effusion. Her CBC showed a WBC count of 11.7, hematocrit 10.1, hematocrit 31.1 and platelet count 604. Sodium 130, potassium 3.1, chloride 91, CO2 38, BUN 85 with a creatinine of 2.28. PAST MEDICAL HISTORY Her past medical history is significant for: 1. Recurrent cerebral effusion. She is requiring more frequent thoracentesis and she is getting sick and tired of it. 2. History of coronary artery disease status post CABG. 3. Hypertension 4. Diabetes mellitus MEDICATIONS She is currently takin. Duloxetine 120 mg a day 2. Protonix 40 mg daily 3. Levothyroxine 150 mcg a day 4. Hydralazine 25 mg q.8 h 5. She is on insulin 15 units at nighttime. 6. Lipitor 80 mg a day 7. Metoprolol 25 mg q. 12-hour 8. Trazodone 50 mg at nighttime 9. Valacyclovir 1000 mg a day 10. Heparin 5000 q.12 h 11. Diltiazem 90 mg q. 6-hour 12. Oxycodone for pain 13. Albuterol/Atrovent nebulizer treatment. ALLERGIES SHE IS ALLERGIC TO AZITHROMYCIN, LASIX AND PENICILLIN. SOCIAL HISTORY She states is a . 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 She has a history of smoking which quit 30 years ago. No alcohol use. FAMILY HISTORY She lives alone. She had one son who committed suicide. REVIEW OF SYSTEMS She feels very weak, barely can walk and has chest discomfort and shortness of breath. No DVT or pulmonary embolism. No seizure, stroke or epilepsy. PHYSICAL EXAM This is a frail elderly female mildly short of breath. VITAL SIGNS: Blood pressure 124/64, heart rate 87, respiration 20, temperature 97.6. HEENT: Pupils are equal and reactive to light and accommodation. Oral mucosa and nasal mucosa normal. NECK: JVP not raised. CHEST: Decreased breath sounds on the right side with dull percussion note. CARDIOVASCULAR: S1 and S2 is normal. ABDOMEN: Soft, nondistended. Bowel sounds are present. EXTREMITIES: 1+ pedal edema. 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 No focal deficit. IMPRESSION 1. Recurrent pleural effusion. The patient is requiring thoracentesis more frequently. She is getting sick and tired of it and wants to have more definitive procedure done. 2. CHF 3. Coronary artery disease status post cath 4. Diabetes mellitus 5. COPD 6. Anxiety disorder PLAN I discussed with the patient about the choice of the procedure, the chest tube drainage with Pleurodesis and PleurX catheter placement. The patient has seen Dr. Mills her primary tax collection coordinator who advised her to go for the PleurX catheter because he is concerned about failure of the pleural disease. The patient wants to go with PleurX catheter placement. She does understand the risk of infection. This can be serious. I will consult interventional radiology for PleurX catheter placement. We will continue present treatments with oxygen. Further treatment will dependent upon the course in the hospital. Thank you Irineo Tavares for this consultation. MD LEISA Mosley/NABEEL /8:07 PM /10:15 AM
--- NOTE | 2016-11-23 12:58 | HHI.NPPN ---
Subjective History of Present Illness 76 Year old with ARF , on diuretics, CHF Objective Data Data 11/22/16 11/23/16 19:00 07:00 Intake Total 720 ml Output Total 500 ml Balance 220 ml Intake Oral 720 ml Output Urine Total 500 ml Vital Signs Date Time Temp Pulse Resp B/P Pulse Ox O2 Delivery O2 Flow Rate FiO2 11/23/16 12:42 98.3 81 20 126/65 96 11/23/16 10:43 98 2.00 11/23/16 06:00 81 11/23/16 05:00 80 11/23/16 04:00 88 11/23/16 03:00 98.1 83 20 118/66 97 11/23/16 03:00 82 11/23/16 03:00 97 Nasal Cannula 2.00 11/23/16 02:00 84 11/23/16 01:00 96 11/23/16 00:00 88 11/22/16 23:18 99 Nasal Cannula 2.00 11/22/16 23:00 92 11/22/16 23:00 98.3 92 20 107/53 94 11/22/16 22:00 96 11/22/16 21:00 96 11/22/16 20:30 97 Nasal Cannula 2.00 11/22/16 20:00 96 18 129/81 93 Nasal Cannula 2 11/22/16 18:38 93 Nasal Cannula 2.00 11/22/16 16:08 87 20 124/64 93 Nasal Cannula 2 11/22/16 14:25 96 Nasal Cannula 2 11/22/16 14:25 96 Nasal Cannula 2 -: 11/23/16 0649 11/23/16 0649 Physical Exam General Appearance: Well Developed Neck Neck Exam: Neck Supple Pulmonary Resp Exam: Decreased Bases Cardiology CV Exam: Irregular Gastrointestinal/Abdomen GI Exam: Soft, Bowel Sounds Present Extremeties Extremities Exam: No Edema Assessment/Plan Problem List: (1) JULIANE (acute kidney injury) Plan: Likely due to diuresis She has mechanical heart disease and this needs to be corrected diuretics should be used cautiously low K replace check Kidney US (2) CHF (congestive heart failure) Plan: Patient has diastolic dysfunction and also has recurrent pleural effusion with valvular heart disease (3) Acute on chronic diastolic CHF (congestive heart failure) Plan: Valvular heart disease (4) Recurrent right pleural effusion Plan: follow up pulmonary Tammie Suggs MD Nov 23, 2016 12:58
--- NOTE | 2016-11-23 13:08 | HHI.PR ---
Subjective Remarks patient just feels "tired with all of these" fatigued looking forward to going for thoracentesis today no nausea or vomiting Objective Vitals Vital Signs Date Time Temp Pulse Resp B/P Pulse Ox O2 Delivery O2 Flow Rate FiO2 11/23/16 12:42 98.3 81 20 126/65 96 11/23/16 10:43 98 2.00 11/23/16 06:00 81 11/23/16 05:00 80 11/23/16 04:00 88 11/23/16 03:00 98.1 83 20 118/66 97 11/23/16 03:00 82 11/23/16 03:00 97 Nasal Cannula 2.00 11/23/16 02:00 84 11/23/16 01:00 96 11/23/16 00:00 88 11/22/16 23:18 99 Nasal Cannula 2.00 11/22/16 23:00 92 11/22/16 23:00 98.3 92 20 107/53 94 11/22/16 22:00 96 11/22/16 21:00 96 11/22/16 20:30 97 Nasal Cannula 2.00 11/22/16 20:00 96 18 129/81 93 Nasal Cannula 2 11/22/16 18:38 93 Nasal Cannula 2.00 11/22/16 16:08 87 20 124/64 93 Nasal Cannula 2 11/22/16 14:25 96 Nasal Cannula 2 11/22/16 14:25 96 Nasal Cannula 2 I/O 11/22/16 11/22/16 11/22/16 11/23/16 11/23/16 11/23/16 06:59 14:59 22:59 06:59 14:59 22:59 Intake Total 720 ml Output Total 500 ml Balance 220 ml Intake Oral 720 ml Output Urine Total 500 ml Result Diagram: 11/23/16 0649 11/23/16 0649 Imaging Last Impressions Chest X-Ray 11/22/16 0000 Signed Impressions: Service Date/Time: Tuesday, November 22, 2016 19:11 - CONCLUSION: 1. A lateral pleural effusions right greater than left without significant change. Cardiomegaly Nadir Hansen MD Objective Remarks awake and alert, no acute distress decreased breath sounds and decreased vocal fremiti right base to mid irregular rhtyhm, systolic murmur left sternal border abdomen soft, nontender extremities no edema neuro exam- non focal A/P Assessment and Plan -Recurrent pleural effusion- requiring repeated thoracentesis- rapidly accumulating - hold diuretics for now due to JULIANE - Pulmonaryff - Pigtail catheter today- by IR Atrial fibrillation chronic- aim for rate control HYpertension Mitral regurgitation - on CCB and BB - on OAC- held due to frequent thoracentesis Acute kidney injury - gentle hydration- NS + KCL Hypokalemia - replace gently IV and po - Mg normal recheck in am DM type 2- -insulin requiring -good readings -poor po- start ensure discuss with her that she is going into multiorgan failure - Palliative care consult- met with them this am - DNR Kortney Cee MD Nov 23, 2016 13:08
--- NOTE | 2016-11-23 13:14 | PD.CONS ---
Consult Service Palliative Care Consult Requested By BLAIR Harry/ MD Jaye. Primary Care Physician Remigio Lee, DO Reason for Consultation a. To assist with evaluation and management of symptoms including: debility and shortness of breath. b. To assist medical decision maker(s) with: better understanding of current medical conditions; weighing benefits/burdens of medical treatment options; making medical treatment decisions. . HPI History of Present Illness Mrs. Garcia is a 72-year-old female with a medical history of oxygen dependent COPD, diabetes mellitus, recurrent pleural effusions requiring frequent thoracentesis, CAD, hypothyroidism, diastolic CHF with mitral regurgitation, atrial fibrillation, hypertension and depression. Patient presented to ED on endorsing generalized weakness, worsening dyspnea on exertion and fatigue for the previous 3 days. Patient with a medical history significant for recurrent pleural effusions requiring frequent paracenteses, she is being followed by pulmonology, Dr. Brunner full recommended a permanent drain, not yet been performed. Chest x-ray revealing bilateral pleural effusions right greater than left. Laboratory workup indicating WBC 11.7, Hgb 10.1, platelet count 604. Sodium 137, potassium 3.1, BUN/creatinine 85/2.28. Troponin 0.10. UA negative for nitrates or leukocytes. Patient was admitted for management of acute on chronic kidney failure, recurrent right pleural effusion, COPD and generalized weakness/fatigue. Reviewed past medical history and recent acute hospitalizations. This is patient's fifth acute hospitalization this year. Patient underwent cardiac bypass in February 2016 and was released to acute rehabilitation. Most recent acute hospitalization for 1816 to 09/22/16 secondary to CHF exacerbation and pleural effusion. Patient underwent thoracentesis and chest tube placement on . Echocardiogram 09/16/16 revealing severe pulmonary hypertension, moderate to severe mitral regurgitation, and moderate tricuspid regurgitation. EF of 50-60%. Chest CT 09/18/16 revealed persistent bilateral pleural effusions. Patient was discharged home with home health. Most recent thoracentesis 11/11/16 removing 1800 mL. Follow-up chest x-ray 11/22/16 showing moderate to large recurrent right pleural effusion and associated lower lobe airspace disease. Laboratory work Today showing WBC 4.9, Hgb 8.7, platelet count 474. Sodium 137, potassium 2.9, BUN/ creatinine 88/2.23. Albumin 2.5. BNP 385. Nephrology, Dr. Suggs consulted on 11/22/16 for evaluation of acute renal failure. Pulmonology, Dr. Hall consulted on 11/22/16 secondary to recurrent pleural effusions. Patient electing to proceed with PleurX catheter placement. Patient seen in her room, she was resting in bed in no acute distress. Patient reports that since her cardiac bypass, she has had recurrent pleural effusions requiring frequent thoracentesis. So for 10 since February 2016. Patient reports being sick and tired of thoracentesis and wished to have a more definitive procedure such as permanent catheter. Patient remains afebrile, stable hemodynamically. O2 via nasal cannula 3 L. Endorsing dyspnea on physical exertion. No pain. Denies nausea/vomiting or diarrhea. Last BM this morning. No issues with constipation. Tolerating diet without difficulty, no dysphagia reported. Review events leading to these hospitalization, clinical course and current medical management. Patient tells me that since her cardiac bypass in February 2016, she has had multiple complications and acute hospitalizations. Patient feels progressively weak, is concerned about her ability to return home for independent living. Discussed risk, benefits and limitations of CPR, intubation and mechanical ventilation given patient's clinical condition, multiple comorbidities and physical deconditioning. Patient 's goal of therapy is to continue conservative management short of NO code, patient electing to proceed with Pleurx catheter. . Function/Cognitive Trajectory Patient fully independent prior to CABG in February 2016. She has been residing independently since 1989. Progressive functional decline since February 2016, multiple acute hospitalizations for discharge home with home health. No assistive devices used. Patient O2 dependent at home. No assistance with ADLs prior to this hospitalization, but requiring assistance with household/cleaning/ grocery shopping. No cognitive decline reported. . Review of Systems Constitutional: COMPLAINS OF: Fatigue, Generalized weakness, DENIES: Chills, Night Sweats Endocrine: DENIES: Heat/cold intolerance Eyes: DENIES: Vision loss Ears, nose, mouth, throat: DENIES: Hearing loss, Hoarseness, Running Nose Respiratory: COMPLAINS OF: Shortness of breath Cardiovascular: COMPLAINS OF: Dyspnea on Exertion, Lower Extremity Edema, DENIES: Chest pain Gastrointestinal: DENIES: Abdominal pain, Nausea, Vomiting, Difficulty Swallowing Genitourinary: DENIES: Urinary frequency Musculoskeletal: DENIES: Back pain, Decreased range of motion Integumentary: DENIES: Abnormal pigmentation Hematologic/Lymphatics: DENIES: Bruising Immunologic/Allergic: DENIES: Eczema Neurologic: DENIES: Abnormal gait, Tremor, Poor Balance Psychiatric: DENIES: Anxiety, Confusion, Mood changes, Hallucinations, Agitation Past Family Social History Coded Allergies: Erythromycin (Verified Allergy, Unknown, 11/22/16) Lasix (Verified Allergy, Unknown, 11/22/16) Penicillin (Verified Allergy, Unknown, 11/22/16) *MDRO Multi-Drug Resistant Organism (Verified Adverse Reaction, Unknown, ) 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 - 09/15/2016 Past Medical History Recurrent right pleural effusion Coronary artery disease status post coronary artery bypass graft 3 History of NC status post stent placement Diastolic heart failure with mitral regurgitation Pulmonary hypertension Hyperthyroidism Atrial fibrillation Diabetes mellitus Hypertension Depression Hyperlipidemia COPD on home oxygen as needed GERD . Past Surgical History CABG with maze procedure in 2016 Gastric bypass 2010 Coronary stent placement in 2007 Cataract surgery bilaterally Back surgery . Reported Medications Bumetanide 1 Mg Tab 2 Mg PO DAILY Norvasc (Amlodipine Besylate) 5 Mg Tab 5 Mg PO DAILY Metoprolol Tartrate 25 Mg Tab 25 Mg PO Q12HR Novolog Inj (Insulin Aspart) 100 Unit/Ml Inj 1 Units SQ ACHS SLIDING SCALE Levemir Inj (Insulin Detemir) 1,000 unit/ 10 ML Vial 10 Units SQ DAILY Hydralazine (Hydralazine HCl) 25 Mg Tab 25 Mg PO Q8HR Bumetanide 1 Mg Tab 1 Mg PO DAILY@1800 Losartan (Losartan Potassium) 50 Mg Tab 50 Mg PO DAILY Xarelto (Rivaroxaban) 15 Mg Tab 15 Mg PO DAILY Ferrous Sulfate 325 Mg Tab 325 Mg PO BID Bumetanide 1 Mg Tab 1 Mg PO BID@09,18 Trazodone (Trazodone HCl) 50 Mg Tab 50 Mg PO HS 30 Days Klor-Con 10 (Potassium Chloride) 10 Meq Tab 10 Meq PO DAILY 7 Days Pantoprazole (Pantoprazole Sodium) 40 Mg Tab 40 Mg PO DAILY 30 Days Thera M Plus (Multivitamins/Minerals Therapeutic) 1 Tab 1 Tab PO DAILY [address] (Duloxetine HCl) 60 Mg Capdr 120 Mg PO DAILY 30 Days Lipitor (Atorvastatin Calcium) 10 Mg Tab 10 Mg PO HS 30 Days Aspirin Low Strength (Aspirin) 81 Mg Chew 81 Mg PO DAILY 30 Days Xanax (Alprazolam) 0.25 Mg Tab 0.25 Mg PO Q8HR PRN 30 Days Metoprolol Tartrate 50 Mg Tab 50 Mg PO DAILY Diltiazem (Diltiazem HCl) 90 Mg Tab 90 Mg PO Q6 HR Novolog Inj (Insulin Aspart) 1,000 Unit/10 Ml Vial 2-10 Units SQ ACHS Nitroglycerin SL (Nitroglycerin) 0.4 Mg Subl 0.4 Mg SL DIRECTED PRN Valtrex (Valacyclovir HCl) 1 Gm Tab 1 Gm PO DAILY Drisdol (Ergocalciferol) 50,000 Unit Cap 50,000 Units PO WEEKLY ON MONDAYS Cyanocobalamin Inj (Cyanocobalamin) 1,000 Mcg/Ml Inj 1,000 Mcg IM EVERY 2 WEEKS Lantus Inj (Insulin Glargine) 100 Unit/Ml Inj 17 Units SQ HS Levothyroxine (Levothyroxine Sodium) 150 Mcg Tab 150 Mcg PO DAILY@0600 Fenofibrate 160 Mg Tab 160 Mg PO HS . Current Medications Medications (Trade) Dose Ordered Sig/Seema Route Start Time Stop Time Status Last Admin (NS Flush) 2 ml UNSCH PRN IVF 11/22/16 14:15 (NS Flush) 2 ml BID IV FLUSH 11/22/16 21:00 11/22/16 21:59 (Heparin Inj) 5,000 units Q12H SQ 11/22/16 20:00 11/22/16 20:16 (D50w (Vial) Inj) 50 ml UNSCH PRN IV 11/22/16 17:30 (Glucagon Inj) 1 mg UNSCH PRN OTHER 11/22/16 17:30 (Levemir Inj) 15 units HS SQ 11/22/16 21:00 11/22/16 22:08 (Xanax) 0.25 mg Q8HR PRN PO 11/22/16 17:45 (Norvasc) 5 mg DAILY PO 11/23/16 09:00 11/23/16 09:20 (Lipitor) 80 mg HS PO 11/22/16 21:00 11/22/16 21:58 (Cardizem) 90 mg Q6HR PO 11/22/16 20:00 11/23/16 06:07 (Apresoline) 25 mg Q8HR PO 11/22/16 22:00 11/23/16 06:07 (Synthroid) 150 mcg DAILY@0600 PO 11/23/16 06:00 11/23/16 06:07 (Lopressor) 25 mg Q12HR PO 11/22/16 21:00 11/23/16 09:20 (Protonix) 40 mg DAILY PO 11/23/16 09:00 11/23/16 09:20 (Desyrel) 50 mg HS PO 11/22/16 21:00 11/22/16 21:58 (Valtrex) 1,000 mg HS PO 11/22/16 21:00 11/22/16 21:58 (Percocet 5-325 Mg) 1 tab Q6H PRN PO 11/22/16 19:30 Family History Father from myocardial infarction. Mother from myocardial infarction. Son committed suicide 2 years ago. . Substance Use Tobacco: Former smoker. Quit over 25 years ago. Alcohol: None reported. Prescription med abuse: None reported. Illicits: None reported. . Psychosocial History Patient is originally from [place]. Both her mother and father are ; both from myocardial infarction. Patient has 1 brother (Valentin) who lives in [place]. She states she and her brother have a "horrible" relationship. Patient was for 7 years and in 1972; she never remarried. She had one son (Mo) who committed suicide 2 years ago when he was approximately 45 years old. . Spiritual/Cultural Factors [employer]. . Health Care Surrogate: Copy in medical record Date completed: 09/14/16. . Health Care Surrogate(s): Friend Melody Pantoja. . Documented care wishes: No living will completed. Information about living will was left with patient to review. . Today's verbally stated goals: No code. DNR/DNI. Continue with current medical management short of no code. . Ethical and Legal Issues No ethical legal issues have been identified. . Physical Exam Vital Signs Date Time Temp Pulse Resp B/P Pulse Ox O2 Delivery O2 Flow Rate FiO2 11/23/16 10:43 98 2.00 11/23/16 06:00 81 11/23/16 05:00 80 11/23/16 04:00 88 11/23/16 03:00 98.1 83 20 118/66 97 11/23/16 03:00 82 11/23/16 03:00 97 Nasal Cannula 2.00 11/23/16 02:00 84 11/23/16 01:00 96 11/23/16 00:00 88 11/22/16 23:18 99 Nasal Cannula 2.00 11/22/16 23:00 92 11/22/16 23:00 98.3 92 20 107/53 94 11/22/16 22:00 96 11/22/16 21:00 96 11/22/16 20:30 97 Nasal Cannula 2.00 11/22/16 20:00 96 18 129/81 93 Nasal Cannula 2 11/22/16 18:38 93 Nasal Cannula 2.00 11/22/16 16:08 87 20 124/64 93 Nasal Cannula 2 11/22/16 14:25 96 Nasal Cannula 2 11/22/16 14:25 96 Nasal Cannula 2 11/22/16 11/23/16 19:00 07:00 Intake Total 720 ml Output Total 500 ml Balance 220 ml Intake Oral 720 ml Output Urine Total 500 ml Exam CONSTITUTIONAL/GENERAL: This is an adequately nourished patient, in no apparent distress. TUBES/LINES/DRAINS: PIV's. SKIN: No jaundice, rashes, or lesions. Ecchymoses on upper extremities. No wounds seen anteriorly. Skin temperature appropriate. Not diaphoretic. HEAD: Atraumatic. Normocephalic. EYES: Pupils equal and round and reactive. Extraocular motions intact. No scleral icterus. No injection or drainage. ENT: Hearing grossly normal. Nose without bleeding or purulent drainage. Moist oral mucosa. NECK: Trachea midline. Supple, nontender. CARDIOVASCULAR: Irregular rate and rhythm without murmurs, gallops, or rubs. Peripheral pulses symmetric. RESPIRATORY/CHEST: Symmetric, unlabored respirations. Clear, diminished to auscultation. Breath sounds equal bilaterally. No wheezes, rales, or rhonchi. GASTROINTESTINAL: Abdomen soft, non-tender, nondistended. No guarding. Bowel sounds present. GENITOURINARY: Without palpable bladder distension. MUSCULOSKELETAL: Extremities without clubbing, cyanosis. Trace edema to bilateral lower extremities. No mottling or clubbing. NEUROLOGICAL: Awake and alert. Motor and sensory grossly within normal limits. Follows commands. Cognitively sharp. Moves all extremities. PSYCHIATRIC: No obvious anxiety/depression. no apparent hallucinations or other psychotic thought process. Pleasant and cooperative. . Diagnostic Tests Laboratory Laboratory Tests Test 11/22/16 11/22/16 11/22/16 11/22/16 14:20 15:10 16:37 17:50 White Blood Count 11.7 TH/MM3 (4.0-11.0) Red Blood Count 3.80 MIL/MM3 (4.00-5.30) Hemoglobin 10.1 GM/DL (11.6-15.3) Hematocrit 31.1 % (35.0-46.0) Mean Corpuscular Volume 81.9 FL (80.0-100.0) Mean Corpuscular Hemoglobin 26.6 PG (27.0-34.0) Mean Corpuscular Hemoglobin 32.5 % Concent (32.0-36.0) Red Cell Distribution Width 16.2 % (11.6-17.2) Platelet Count 604 TH/MM3 (150-450) Mean Platelet Volume 8.4 FL (7.0-11.0) Neutrophils (%) (Auto) 93.3 % (16.0-70.0) Lymphocytes (%) (Auto) 2.0 % (9.0-44.0) Monocytes (%) (Auto) 4.0 % (0.0-8.0) Eosinophils (%) (Auto) 0.1 % (0.0-4.0) Basophils (%) (Auto) 0.6 % (0.0-2.0) Neutrophils # (Auto) 10.9 TH/MM3 (1.8-7.7) Lymphocytes # (Auto) 0.2 TH/MM3 (1.0-4.8) Monocytes # (Auto) 0.5 TH/MM3 (0-0.9) Eosinophils # (Auto) 0.0 TH/MM3 (0-0.4) Basophils # (Auto) 0.1 TH/MM3 (0-0.2) CBC Comment DIFF FINAL Differential Comment Prothrombin Time 12.2 SEC (9.8-11.6) Prothromb Time International 1.1 RATIO Ratio Activated Partial 31.1 SEC Thromboplast Time (24.3-30.1) Sodium Level 137 MEQ/L (136-145) Potassium Level 3.1 MEQ/L (3.5-5.1) Chloride Level 91 MEQ/L (98-107) Carbon Dioxide Level 37.8 MEQ/L (21.0-32.0) Anion Gap 8 MEQ/L (5-15) Blood Urea Nitrogen 85 MG/DL (7-18) Creatinine 2.28 MG/DL (0.50-1.00) Estimat Glomerular Filtration 21 ML/MIN (>89) Rate Random Glucose 64 MG/DL (74-106) Calcium Level 10.1 MG/DL (8.5-10.1) Magnesium Level 2.3 MG/DL (1.5-2.5) Total Creatine Kinase 67 U/L (26-192) Troponin I 0.10 NG/ML 0.09 NG/ML (0.02-0.05) (0.02-0.05) B-Type Natriuretic Peptide 385 PG/ML (0-100) Urine Color YELLOW (YELLW/STRAW) Urine Turbidity CLEAR (CLEAR) Urine pH 5.0 (5.0-8.5) Urine Specific [place] 1.008 (1.002-1.035) Urine Protein NEG mg/dL (NEG-TRACE) Urine Glucose (UA) NEG mg/dL (NEG) Urine Ketones NEG mg/dL (NEG) Urine Occult Blood NEG (NEG) Urine Nitrite NEG (NEG) Urine Bilirubin NEG (NEG) Urine Urobilinogen LESS THAN 2.0 MG/DL (LESS THAN 2.0) Urine Leukocyte Esterase NEG (NEG) Urine WBC 1 /hpf (0-5) Urine Squamous Epithelial <1 /hpf (0-5) Cells Urine Bacteria RARE /hpf (NONE) Urine Hyaline Casts 7 /lpf (RARE) Urine Mucus FEW /lpf (OCC) Microscopic Urinalysis Comment CULT NOT INDICATED Blood Gas Puncture Site RT RADIAL Blood Gas Patient Temperature 98.6 Blood Gas HCO3 33 mmol/L (22-26) Blood Gas Base Excess 8.4 mmol/L (-2-2) Blood Gas Oxygen Saturation 92 % (90-100) Arterial Blood pH 7.44 (7.380-7.420) Arterial Blood Partial 49 mmHg (38-42) Pressure CO2 Arterial Blood Partial 76 mmHG Pressure O2 (61-120) Arterial Blood Oxygen Content 12.0 Vol % (12.0-20.0) Arterial Blood 1.3 % (0-4) Carboxyhemoglobin Arterial Blood Methemoglobin 1.1 % (0-2) Blood Gas Hemoglobin 9.2 G/DL (12.0-16.0) Oxygen Delivery Device NASAL CANNULA Blood Gas Liter Flow 2 L/M Test 11/23/16 11/23/16 00:08 06:49 Troponin I 0.09 NG/ML (0.02-0.05) White Blood Count 4.9 TH/MM3 (4.0-11.0) Red Blood Count 3.18 MIL/MM3 (4.00-5.30) Hemoglobin 8.7 GM/DL (11.6-15.3) Hematocrit 25.7 % (35.0-46.0) Mean Corpuscular Volume 80.8 FL (80.0-100.0) Mean Corpuscular Hemoglobin 27.5 PG (27.0-34.0) Mean Corpuscular Hemoglobin 34.0 % Concent (32.0-36.0) Red Cell Distribution Width 16.4 % (11.6-17.2) Platelet Count 474 TH/MM3 (150-450) Mean Platelet Volume 8.2 FL (7.0-11.0) Neutrophils (%) (Auto) 89.6 % (16.0-70.0) Lymphocytes (%) (Auto) 4.5 % (9.0-44.0) Monocytes (%) (Auto) 5.2 % (0.0-8.0) Eosinophils (%) (Auto) 0.0 % (0.0-4.0) Basophils (%) (Auto) 0.7 % (0.0-2.0) Neutrophils # (Auto) 4.4 TH/MM3 (1.8-7.7) Lymphocytes # (Auto) 0.2 TH/MM3 (1.0-4.8) Monocytes # (Auto) 0.3 TH/MM3 (0-0.9) Eosinophils # (Auto) 0.0 TH/MM3 (0-0.4) Basophils # (Auto) 0.0 TH/MM3 (0-0.2) CBC Comment DIFF FINAL Differential Comment Sodium Level 137 MEQ/L (136-145) Potassium Level 2.9 MEQ/L (3.5-5.1) Chloride Level 95 MEQ/L (98-107) Carbon Dioxide Level 34.8 MEQ/L (21.0-32.0) Anion Gap 7 MEQ/L (5-15) Blood Urea Nitrogen 88 MG/DL (7-18) Creatinine 2.23 MG/DL (0.50-1.00) Estimat Glomerular Filtration 21 ML/MIN (>89) Rate Random Glucose 121 MG/DL (74-106) Calcium Level 9.0 MG/DL (8.5-10.1) Magnesium Level 2.3 MG/DL (1.5-2.5) Total Bilirubin 1.2 MG/DL (0.2-1.0) Aspartate Amino Transf 137 U/L (15-37) (AST/SGOT) Alanine Aminotransferase 71 U/L (10-53) (ALT/SGPT) Alkaline Phosphatase 191 U/L (45-117) Total Protein 6.4 GM/DL (6.4-8.2) Albumin 2.5 GM/DL (3.4-5.0) Result Diagram: 11/23/16 0649 11/23/16 0649 Imaging Last Impressions Chest X-Ray 11/22/16 0000 Signed Impressions: Service Date/Time: Tuesday, November 22, 2016 19:11 - CONCLUSION: 1. A lateral pleural effusions right greater than left without significant change. Cardiomegaly Nadir Hansen MD Patient/Family Conference Present at Family Conference: Patient. No family at bedside. Family Conference Time (mins): 52 Family Conference Location: Bedside Issues Discussed: * Palliative care role, purpose, approach * Additional medical, psychosocial, and spiritual history * Patients general health, functional status, and cognitive changes in the months leading up to the current hospitalization * Patient's understanding of the current medical problems -recurrent pleural effusions, CHF, COPD, atrial fibrillation, diabetes mellitus, physical deconditioning. Multiple recent hospitalizations. * Patient's understanding of prognosis * Patients goals of care as best understood from advance directives and/or conversations and/or values * Current medical treatment options and benefits/burdens of those options * Questions answered to the best of my ability * Palliative care contact information provided * Risks, benefits and limitations of CPR, intubation and mechanical ventilation * Hospice philosophy and benefits . Assessment and Plan Disease Oriented Problem List: (1) Recurrent left pleural effusion (2) Acute kidney failure (3) CHF (congestive heart failure) (4) Acute on chronic diastolic CHF (congestive heart failure) Symptom Scale: (1) Shortness of breath 0-10 Scale: 4 Comment: Secondary to COPD, CHF, pleural effusion. Currently on O2 via nasal cannula. (2) Debility 0-10 Scale: Unable to quantify Comment: Progressive. Worsen since February 2016. Pertinent Non-Medical Issues Psychosocial: Spiritual: Legal: Ethical issues impacting care: Important Contacts [facility] Melody Pantoja [phone]. . Prognosis Mrs. Garcia is a 72-year-old female with a medical history of oxygen dependent COPD, diabetes mellitus, recurrent pleural effusions requiring frequent thoracentesis, CAD, hypothyroidism, diastolic CHF with mitral regurgitation, atrial fibrillation, hypertension and depression. Patient presented to ED on endorsing generalized weakness, worsening dyspnea on exertion and fatigue for the previous 3 days. Patient was admitted for management of acute on chronic kidney failure, recurrent right pleural effusion, COPD and generalized weakness/fatigue. This is patient's fifth hospitalization this year, worsening clinical condition and physical decline since cardiac bypass in February 2016. Patient at high risk for further complications, continue decline and . . Code Status: No Code Plan * CODE STATUS: No code status previously recorded. Reviewed risks, benefits and limitations of CPR, intubation and mechanical ventilation given patient's clinical condition, multiple comorbidities, multiple recent acute hospitalizations and physical deconditioning. Patient electing DNR/DNI. * HEALTHCARE DECISION-MAKING: Patient currently participating in medical decision making. She demonstrates a good understanding of her medical conditions and the ability to weigh the benefits and burdens of treatment options. Patient has designated her best friend, Melody Pantoja, as her health care surrogate decision maker. * GOALS OF CARE: Patient electing to continue conservative management to include placement of Pleurx catheter. Patient electing NO CPR, NO intubation/ mechanical ventilation. Goal of therapy is to return home for independent living. However, patient acknowledges that she may require rehabilitation vs long-term placement secondary to progressive physical deconditioning since cardiac bypass in February 2016. Patient verbalized being "sick and tired" of multiple procedures/thoracentesis and acute hospitalizations. Discussed the future role of hospice services should patient's clinical condition continues to worsen or there is additional functional decline. Patient receptive to this. * SYMPTOMS: = Shortness of breath, secondary to COPD, CHF, pleural effusions, acute illness. Patient O2 dependent at home. Currently on O2 via nasal cannula 3 L. Pulmonology following. Pending placement of Pleurx catheter. = Debility: Worsening since February 2016. Exacerbated by her current clinical complications. Patient evaluating need of rehabilitation vs home with home health at discharge. * Palliative care contact information has been provided to patient. * Palliative care will continue to follow-up with patient for further clarifications of goals of care as her clinical course continue to evolve. . Time Spent Total Floor Time (mins): 105 (Total time to include review and summarization of available medical records to include a multiple prior acute hospitalizations , physical exam, and lengthy goals of care discussion with patient.) >50% Counseling/Coord of Care: Yes Thank you for the opportunity to participate in the care of Ms. Garcia. Attestation To help prompt me to consider important information that might be impacting today's encounter and assessment, information from prior notes written by myself or my colleagues may have been "brought forward" into today's note. My signature on this note, however, is an attestation that I personally performed the exam, history, and/or decision-making noted today, and, unless otherwise indicated, the interactions with patient, family, and staff as well as the review of records all occurred today. I also attest that the listed assessment and stated plan reflect my best clinical judgment today based on the combination of historical information, prior notes, and today's exam/ interactions. When time spent is documented, it refers only to time spent today by the signer, or if indicated, combined time spent today by collaborating physician/nurse practitioner. Cecilia Manriquez Nov 23, 2016 13:13
[2016-11-23] MEDS ORDERED: POTASSIUM CHLORIDE 10 MEQ CONTROLLED RELEASE TAB PO ONE (13:15)
[2016-11-23] MEDS ORDERED: MIDAZOLAM HCL 5 MG/5 ML VIAL ONE (13:53)
[2016-11-23] MEDS ORDERED: fentaNYL CITRATE 250 MCG/5 ML AMP ONE (13:53)
[2016-11-23] MEDS: POTASSIUM CHLORIDE INJ 30 MEQ in SODIUM CHLOR 0.9% 1000 ML INJ 1,000 ML IV SCH (14:00)
[2016-11-23] MEDS ORDERED: LEVOFLOXACIN 500 MG PREMIX INJ 100 ML IV ONE (14:00)
[2016-11-23] MEDS ORDERED: LIDOCAINE 1%/EPINEPHrine 1:100,000 SOLN 20 ML VIAL ONE (14:14)
--- NOTE | 2016-11-23 14:38 | PD.RAD ---
Post Procedure Progress Note Pre Procedure Diagnosis: (1) Pleural effusion (2) Shortness of breath Post Procedure Diagnosis: (1) Pleural effusion (2) Shortness of breath Procedure Date: Nov 23, 2016 Supervising Radiologist: Cali Crockett Proceduralist/Assist: Raymon Pearson, RT(R), Elliot Rios RT(R)() Anesthesia: Conscious Sedation Plan of Activity Patient to Unit: Nursing Unit Patient Condition: Good Additional Comments: Placed right Aspira cath. Removed 1900ml of pleural fluid. See PACS Report for procedural detail/treatment Cali Crockett MD Nov 23, 2016 14:38
[2016-11-23] MEDS: SODIUM CHLORIDE 0.9% FLUSH 10 ML FLUSH IV FLUSH SCH ×2 (15:07→21:04)
--- NOTE | 2016-11-23 15:19 | RADRPT ---
EXAM DATE/TIME: 11/23/2016 14:19 [facility] COMPARISON: No previous studies available for comparison. INDICATIONS : Patient with recurrent pleural effusion in need of aspira catheter placement. MEDICAL HISTORY : Recurrent right pleural effusion Coronary artery disease Diastolic heart failure with mitral regurgitation Hyperthyroidism Atrial fibrillation, off anticoagulation per pulmonology Hypertension Depression Hyperlipidemia Diabetes mellitus COPD on home oxygen as needed GERD SURGICAL HISTORY : Coronary stent placement in 2008 CABG with maze procedure in 2016 Cataract surgery bilaterally Gastric bypass 2010 Back surgery ENCOUNTER: Initial ACUITY: >1 year PAIN SCORE: 0/10 FLUORO TIME: 0.4 minutes IMAGE SERIES: 2 SEDATION TIME: 15 minutes MEDICATION(S): 1.) 2 mg midazolam (Versed) IV 2.) 100 mcg fentanyl (Sublimaze) IV Prophylactic antibiotics were administered with appropriate pre-procedure timing. DEVICE(S): 1.) 15.5F Aspiria catheter TECH NOTE: 1900cc Pleura fluid removed.SANTANA CARMICHAEL MR#:[id number] Exam Dt/Desc: November 23, 2016PLEUR AL CATHETER PLACEMENT, RIGHT PROCEDURE : 1. Right tunneled Aspira pleural drainage catheter 2. Conscious sedation with continuous EKG and Oximetry monitoring. The risks, benefits and alternatives to the procedure were explained and verbal and written consent w as obtained. The site was prepped in sterile fashion. Full sterile technique was used, including ca p, mask, sterile gloves and gown and a large sterile sheet. Hand hygiene and 2% chlorhexidine prep w as utilized per protocol for cutaneous antisepsis with appropriate dry time for site. The skin and s ubcutaneous tissues were infiltrated with local anesthetic solution. Ultrasound evaluation of the right hemithorax demonstrated a large pleural effusion. Appropriate wind ow in the lateral inferior right hemithorax was marked. Skin was prepped and draped in usual sterile fashion. 1% lidocaine solution was injected for local anesthesia. 18 gauge needle was advanced into t he pleural space under ultrasound guidance. Guidewire was advanced under fluoroscopic guidance into t he inferior hemithorax. A site approximately 7 cm medial and anterior to the access site was marked. 1% lidocaine solution was injected for local anesthesia. A small incision was made and a 15.5 Prydeinig Aspira drainage catheter was tunneled from this site to the access site. The catheter was then advanc ed into the pleural space through a peel-away sheath and the peel-away sheath was removed. Catheter d emonstrated appropriate function and was secured into place with 2-0 suture. Approximately 1900 mL of slightly severe sinus pleural fluid was removed immediately following catheter placement. Conscious sedation was performed with the prescribed dosages and duration as above in the presence of an independent trained radiology nurse to assist in the monitoring of the patient. EKG and oximetry remained stable throughout the procedure. CONCLUSION: 1. Uneventful placement of 15.5 Prydeinig Aspira tunneled right-sided pleural drainage catheter, as winifred Crockett MD on November 23, 2016 at 15:13 Board Certified Radiologist. This report was verified electronically.
--- NOTE | 2016-11-23 16:54 | RADRPT ---
EXAM DATE/TIME: 11/23/2016 15:40 [facility] COMPARISON: CT THORAX W/O CONTRAST, September 18, 2016, 17:15. INDICATIONS : Increased lab values. MEDICAL HISTORY : Acute renal failure. CHF. MD. COPD. Hiatel hernia. SURGICAL HISTORY : CABG. Gastic bypass. Back surgery. ENCOUNTER: Initial ACUITY: 1 day PAIN SCORE: 0/10 LOCATION: Bilateral flank MEASUREMENTS: RIGHT KIDNEY: 11.2 x 4.5 x 4.8 cm LEFT KIDNEY: 10.1 x 4.5 x 5.3 cm FINDINGS: RIGHT KIDNEY: Mildly increased cortical echogenicity. Small 1.3 x 1.0 x 1.2 cm mid right renal cyst. No evidence fo r stone or hydronephrosis. LEFT KIDNEY: Mildly increased cortical echogenicity without evidence for stone or hydronephrosis. No significant f ocal mass. BLADDER: Within normal limits given the degree of distension. Miscellaneous: Incidental note is made of sludge in the gallbladder which otherwise appears grossly unremarkable in its limited visualized portions. There is also incidental note of right-sided pleural effusion. CONCLUSION: 1. No evidence for renal calculi or significant obstructive uropathy. 2. Mildly echogenic kidneys bilaterally consistent with some degree of medical renal disease. 3. Small 1.3 cm cyst in the mid right kidney. 4. Incidental note of gallbladder sludge and right-sided pleural effusion. Cali Crockett MD on November 23, 2016 at 16:46 Board Certified Radiologist. This report was verified electronically.
--- NOTE | 2016-11-23 17:19 | EKG ---
Date Performed: 11/22/2016 Time Performed: 14:06:18 PTAGE: 76 years EKG: ATRIAL FIBRILLATION MARKED RIGHT AXIS DEVIATION NONSPECIFIC ST & T-WAVE ABNORMALITY ABNORMA L ECG PREVIOUS TRACING : 09/14/2016 21.08 Compared to prior tracing no significant change DOCTOR: Judd Moise Interpretating Date/Time 11/23/2016 17:17:14
--- NOTE | 2016-11-23 17:50 | HHI.PR ---
Subjective Remarks GENERAL: Elderly WF,NAD SKIN: Warm and dry. HEAD: Normocephalic. EYES: No scleral icterus. No injection or drainage. NECK: Supple, trachea midline. No JVD or lymphadenopathy. CARDIOVASCULAR: Regular rate and rhythm without murmurs, gallops, or rubs. RESPIRATORY: Breath sounds equal bilaterally. No accessory muscle use. GASTROINTESTINAL: Abdomen soft, non-tender, nondistended. MUSCULOSKELETAL: No cyanosis, or edema. BACK: Nontender without obvious deformity. No CVA tenderness. Objective Vital Signs Vital Signs Date Time Temp Pulse Resp B/P Pulse Ox O2 Delivery O2 Flow Rate FiO2 11/23/16 17:37 97 Nasal Cannula 2.00 11/23/16 16:48 97 Nasal Cannula 2.00 11/23/16 12:42 98.3 81 20 126/65 96 11/23/16 10:43 98 2.00 11/23/16 06:00 81 11/23/16 05:00 80 11/23/16 04:00 88 11/23/16 03:00 98.1 83 20 118/66 97 11/23/16 03:00 82 11/23/16 03:00 97 Nasal Cannula 2.00 11/23/16 02:00 84 11/23/16 01:00 96 11/23/16 00:00 88 11/22/16 23:18 99 Nasal Cannula 2.00 11/22/16 23:00 92 11/22/16 23:00 98.3 92 20 107/53 94 11/22/16 22:00 96 11/22/16 21:00 96 11/22/16 20:30 97 Nasal Cannula 2.00 11/22/16 20:00 96 18 129/81 93 Nasal Cannula 2 11/22/16 18:38 93 Nasal Cannula 2.00 I/O 11/22/16 11/22/16 11/22/16 11/23/16 11/23/16 11/23/16 07:00 15:00 23:00 07:00 15:00 23:00 Intake Total 720 ml Output Total 500 ml Balance 220 ml Intake Oral 720 ml Output Urine Total 500 ml Result Diagram: 11/23/16 0649 11/23/16 0649 A/P Assessment and Plan Recurrent Pleural effusion S/P Pleurex cathetor placement CAD COPD Anxiety CKD PLAN: Pleurex cathetor, will drain prn Aerosol nebs Supplement 02 monitor renal Functions. Calixto Hall MD Nov 23, 2016 17:49
[2016-11-23] MEDS: INSULIN DETEMIR 100 UNITS/ML VIAL SQ SCH (21:00)
[2016-11-23] MEDS: traZODone HCL 50 MG TAB PO SCH (21:02)
[2016-11-23] MEDS: oxyCODONE/ACETAMINOPHEN 5 MG/325 MG TAB PO PRN (21:02)
[2016-11-23] MEDS: valACYclovir HCL 500 MG TAB PO SCH (21:03)
[2016-11-23] MEDS: ATORVASTATIN 80 MG TAB PO SCH (21:03)
[2016-11-24] VITALS (25 sets, daily range): BP systolic 103–126; BP diastolic 48–77; PULSE 63–88; RESP 18–20; TEMP 97.8–98.5; O2SAT 94–98
[2016-11-24] MEDS: DILTIAZEM HCL 90 MG TAB PO SCH ×4 (00:46→18:00)
[2016-11-24] MEDS: oxyCODONE/ACETAMINOPHEN 5 MG/325 MG TAB PO PRN ×3 (02:43→22:36)
--- NOTE | 2016-11-24 05:26 | RADRPT ---
EXAM DATE/TIME: 11/24/2016 04:07 [facility] COMPARISON: CHEST SINGLE AP, November 22, 2016, 19:11. PLEURAL CATHETER PLACEMENT, RIGHT, November 23, 2016, 14:19. [facility] EXPIRATION ONLY, November 11, 2016, 11:30. INDICATIONS : Shortness of breath. MEDICAL HISTORY : Gastroesophageal reflux disease. Chronic obstructive pulmonary disease. Myocardial infarction. A- fib, Hypothyroidism, Diabetes, Hypertension, Hyperlipidemia, Coronary artery dise SURGICAL HISTORY : Coronary artery stent. CABG. Gastric bypass, Cataract surgery bilaterally ENCOUNTER: ACUITY: 1 day PAIN SCORE: 5/10 LOCATION: Bilateral chest FINDINGS: There is large right pleural effusion extending to the upper 3rd of the right lung, similar in config uration to chest x-ray 11/22/16. There also patchy areas of consolidation in the right mid and lower lung. Pleural catheter is present medially in the right chest. No evidence of pneumothorax on the r ight side. The left lung is clear. A lucency projected over the lateral left chest probably represe nts a skinfold from the left arm. The heart is stable in configuration. CONCLUSION: Persistent large right pleural effusion and consolidation the right mid and lower lung. John Ha MD on November 24, 2016 at 5:22 Board Certified Radiologist. This report was verified electronically.
[2016-11-24] MEDS: hydrALAZINE HCL 25 MG TAB PO SCH ×3 (05:30→22:33)
[2016-11-24] MEDS: LEVOTHYROXINE SODIUM 150 MCG TAB PO SCH (05:30)
[2016-11-24] MEDS: INSULIN ASPART SUPPLEMENTAL SCALE SQ SCH ×4 (06:00→22:25)
[2016-11-24] MEDS: PANTOPRAZOLE SOD 40 MG DELAYED RELEASE TAB PO SCH (08:59)
[2016-11-24] MEDS: METOPROLOL TARTRATE 25 MG TAB PO SCH ×2 (08:59→22:21)
[2016-11-24] MEDS: amLODIPine BESYLATE 5 MG TAB PO SCH (08:59)
[2016-11-24] MEDS: SODIUM CHLORIDE 0.9% FLUSH 10 ML FLUSH IV FLUSH SCH ×2 (09:00→21:00)
[2016-11-24] MEDS: HEPARIN SODIUM - SQ 10,000 UNITS/ML VIAL SQ SCH ×2 (09:00→22:21)
--- NOTE | 2016-11-24 11:50 | HHI.HCPN ---
Reason for visit a. To assist with evaluation and management of symptoms including: debility and shortness of breath. b. To assist medical decision maker(s) with: better understanding of current medical conditions; weighing benefits/burdens of medical treatment options; making medical treatment decisions. . Subjective/Interval History Mrs. Garcia is a 72-year-old female with a medical history of oxygen dependent COPD, diabetes mellitus, recurrent pleural effusions requiring frequent thoracentesis, CAD, hypothyroidism, diastolic CHF with mitral regurgitation, atrial fibrillation, hypertension and depression. Patient presented to ED on endorsing generalized weakness, worsening dyspnea on exertion and fatigue for the previous 3 days. Patient was admitted for management of acute on chronic kidney failure, recurrent right pleural effusion, COPD and generalized weakness/fatigue. Palliative care was consulted for clarifications of goals of care given her progressive decline, recent multiple hospitalizations and multiple comorbidities. Patient underwent Pleurx catheter placement to right chest yesterday. 1900 mL of pleural fluid drained. Chest x-ray this morning showing persistent large right pleural effusion and consolidation to the right mid and lower lung. Pleurx catheter was drained this morning. Patient seen in her room, she was resting in moderate distress, endorsing pain to right chest -side of Pleurx catheter. Taking Percocet with moderate effectiveness. Endorsing shortness of breath on exertion, denies abdominal pain, nausea/vomiting. 2 episodes of diarrhea this morning. Patient afebrile, stable hemodynamically. O2 via nasal cannula at 2 L. Oxygen saturation in the mid to high 90s. No new laboratory workup for review. Patient tells me that she feels overwhelmed with her progression of illness and frequent hospitalizations secondary to complications. Patient's goals of therapy is to continue conservative management short of no code with the hopes of returning home for independent living. Patient tells me that she is well aware that she may not have the strength require for independent living, at that time, patient receptive to placement. Discussed again hospice philosophy and benefits and the future role of hospice should her clinical condition continues to worsen or there is additional functional decline. Patient receptive to this. Community DNR signed. . Family/friend interactions No family at bedside. . Advance Directives Health Care Surrogate: Copy in medical record Advance Directive Specifics Date completed: 09/14/16. . Health Care Surrogate(s): Friend Melody Pantoja. . Documented care wishes: No living will completed. Information about living will was left with patient to review. . Significant change in goals: Goals of care remain unchanged. Conservative management short of no code. . Objective Vital Signs Date Time Temp Pulse Resp B/P Pulse Ox O2 Delivery O2 Flow Rate FiO2 11/24/16 10:18 16 11/24/16 09:26 96 Nasal Cannula 2.00 11/24/16 08:00 98.0 74 18 106/77 98 11/24/16 08:00 98 Nasal Cannula 2.00 11/24/16 06:00 84 11/24/16 05:00 68 11/24/16 04:00 70 11/24/16 03:00 78 11/24/16 03:00 97.8 80 18 103/60 97 11/24/16 03:00 97 Nasal Cannula 2.00 11/24/16 02:00 74 11/24/16 01:00 74 11/24/16 00:00 63 11/23/16 23:00 98.3 75 18 96/50 96 11/23/16 23:00 96 Nasal Cannula 2.00 11/23/16 23:00 66 11/23/16 22:00 62 11/23/16 21:00 64 11/23/16 20:00 64 11/23/16 19:00 98.7 63 18 105/56 97 11/23/16 19:00 97 Nasal Cannula 2.00 11/23/16 19:00 62 11/23/16 17:37 97 Nasal Cannula 2.00 11/23/16 17:00 98.8 60 22 169/71 96 11/23/16 17:00 68 11/23/16 16:48 97 Nasal Cannula 2.00 11/23/16 15:00 108 11/23/16 12:42 98.3 81 20 126/65 96 Intake & Output 11/24/16 11/24/16 07:00 19:00 Intake Total 240 ml Output Total 800 ml Balance -560 ml Intake Oral 240 ml Output Urine Total 800 ml # Bowel Movements 1 Physical Exam CONSTITUTIONAL/GENERAL: This is an adequately nourished patient in moderate distress secondary to pain. TUBES/LINES/DRAINS: PIV's. SKIN: No jaundice, rashes, or lesions. Ecchymoses on upper extremities. No wounds seen anteriorly. Skin temperature appropriate. Not diaphoretic. HEAD: Atraumatic. Normocephalic. EYES: Pupils equal and round and reactive. Extraocular motions intact. No scleral icterus. No injection or drainage. ENT: Hearing grossly normal. Nose without bleeding or purulent drainage. Moist oral mucosa. NECK: Trachea midline. Supple, nontender. CARDIOVASCULAR: Irregular rate and rhythm without murmurs, gallops, or rubs. Peripheral pulses symmetric. RESPIRATORY/CHEST: Symmetric, unlabored respirations. Clear, diminished to auscultation. Breath sounds equal bilaterally. No wheezes, rales, or rhonchi. Pleurx catheter to right lateral chest. GASTROINTESTINAL: Abdomen soft, non-tender, nondistended. No guarding. Bowel sounds present. GENITOURINARY: Without palpable bladder distension. MUSCULOSKELETAL: Extremities without clubbing, cyanosis. Trace edema to bilateral lower extremities. No mottling or clubbing. NEUROLOGICAL: Awake and alert. Motor and sensory grossly within normal limits. Follows commands. Cognitively sharp. Moves all extremities. PSYCHIATRIC: No obvious anxiety/depression. no apparent hallucinations or other psychotic thought process. Pleasant and cooperative. . Diagnostic Tests Laboratory Laboratory Tests Test 11/22/16 11/22/16 11/22/16 11/22/16 14:20 15:10 16:37 17:50 White Blood Count 11.7 TH/MM3 (4.0-11.0) Red Blood Count 3.80 MIL/MM3 (4.00-5.30) Hemoglobin 10.1 GM/DL (11.6-15.3) Hematocrit 31.1 % (35.0-46.0) Mean Corpuscular Volume 81.9 FL (80.0-100.0) Mean Corpuscular Hemoglobin 26.6 PG (27.0-34.0) Mean Corpuscular Hemoglobin 32.5 % Concent (32.0-36.0) Red Cell Distribution Width 16.2 % (11.6-17.2) Platelet Count 604 TH/MM3 (150-450) Mean Platelet Volume 8.4 FL (7.0-11.0) Neutrophils (%) (Auto) 93.3 % (16.0-70.0) Lymphocytes (%) (Auto) 2.0 % (9.0-44.0) Monocytes (%) (Auto) 4.0 % (0.0-8.0) Eosinophils (%) (Auto) 0.1 % (0.0-4.0) Basophils (%) (Auto) 0.6 % (0.0-2.0) Neutrophils # (Auto) 10.9 TH/MM3 (1.8-7.7) Lymphocytes # (Auto) 0.2 TH/MM3 (1.0-4.8) Monocytes # (Auto) 0.5 TH/MM3 (0-0.9) Eosinophils # (Auto) 0.0 TH/MM3 (0-0.4) Basophils # (Auto) 0.1 TH/MM3 (0-0.2) CBC Comment DIFF FINAL Differential Comment Prothrombin Time 12.2 SEC (9.8-11.6) Prothromb Time International 1.1 RATIO Ratio Activated Partial 31.1 SEC Thromboplast Time (24.3-30.1) Sodium Level 137 MEQ/L (136-145) Potassium Level 3.1 MEQ/L (3.5-5.1) Chloride Level 91 MEQ/L (98-107) Carbon Dioxide Level 37.8 MEQ/L (21.0-32.0) Anion Gap 8 MEQ/L (5-15) Blood Urea Nitrogen 85 MG/DL (7-18) Creatinine 2.28 MG/DL (0.50-1.00) Estimat Glomerular Filtration 21 ML/MIN (>89) Rate Random Glucose 64 MG/DL (74-106) Calcium Level 10.1 MG/DL (8.5-10.1) Magnesium Level 2.3 MG/DL (1.5-2.5) Total Creatine Kinase 67 U/L (26-192) Troponin I 0.10 NG/ML 0.09 NG/ML (0.02-0.05) (0.02-0.05) B-Type Natriuretic Peptide 385 PG/ML (0-100) Urine Color YELLOW (YELLW/STRAW) Urine Turbidity CLEAR (CLEAR) Urine pH 5.0 (5.0-8.5) Urine Specific [place] 1.008 (1.002-1.035) Urine Protein NEG mg/dL (NEG-TRACE) Urine Glucose (UA) NEG mg/dL (NEG) Urine Ketones NEG mg/dL (NEG) Urine Occult Blood NEG (NEG) Urine Nitrite NEG (NEG) Urine Bilirubin NEG (NEG) Urine Urobilinogen LESS THAN 2.0 MG/DL (LESS THAN 2.0) Urine Leukocyte Esterase NEG (NEG) Urine WBC 1 /hpf (0-5) Urine Squamous Epithelial <1 /hpf (0-5) Cells Urine Bacteria RARE /hpf (NONE) Urine Hyaline Casts 7 /lpf (RARE) Urine Mucus FEW /lpf (OCC) Microscopic Urinalysis Comment CULT NOT INDICATED Blood Gas Puncture Site RT RADIAL Blood Gas Patient Temperature 98.6 Blood Gas HCO3 33 mmol/L (22-26) Blood Gas Base Excess 8.4 mmol/L (-2-2) Blood Gas Oxygen Saturation 92 % (90-100) Arterial Blood pH 7.44 (7.380-7.420) Arterial Blood Partial 49 mmHg (38-42) Pressure CO2 Arterial Blood Partial 76 mmHG Pressure O2 (61-120) Arterial Blood Oxygen Content 12.0 Vol % (12.0-20.0) Arterial Blood 1.3 % (0-4) Carboxyhemoglobin Arterial Blood Methemoglobin 1.1 % (0-2) Blood Gas Hemoglobin 9.2 G/DL (12.0-16.0) Oxygen Delivery Device NASAL CANNULA Blood Gas Liter Flow 2 L/M Test 11/23/16 11/23/16 00:08 06:49 Troponin I 0.09 NG/ML (0.02-0.05) White Blood Count 4.9 TH/MM3 (4.0-11.0) Red Blood Count 3.18 MIL/MM3 (4.00-5.30) Hemoglobin 8.7 GM/DL (11.6-15.3) Hematocrit 25.7 % (35.0-46.0) Mean Corpuscular Volume 80.8 FL (80.0-100.0) Mean Corpuscular Hemoglobin 27.5 PG (27.0-34.0) Mean Corpuscular Hemoglobin 34.0 % Concent (32.0-36.0) Red Cell Distribution Width 16.4 % (11.6-17.2) Platelet Count 474 TH/MM3 (150-450) Mean Platelet Volume 8.2 FL (7.0-11.0) Neutrophils (%) (Auto) 89.6 % (16.0-70.0) Lymphocytes (%) (Auto) 4.5 % (9.0-44.0) Monocytes (%) (Auto) 5.2 % (0.0-8.0) Eosinophils (%) (Auto) 0.0 % (0.0-4.0) Basophils (%) (Auto) 0.7 % (0.0-2.0) Neutrophils # (Auto) 4.4 TH/MM3 (1.8-7.7) Lymphocytes # (Auto) 0.2 TH/MM3 (1.0-4.8) Monocytes # (Auto) 0.3 TH/MM3 (0-0.9) Eosinophils # (Auto) 0.0 TH/MM3 (0-0.4) Basophils # (Auto) 0.0 TH/MM3 (0-0.2) CBC Comment DIFF FINAL Differential Comment Sodium Level 137 MEQ/L (136-145) Potassium Level 2.9 MEQ/L (3.5-5.1) Chloride Level 95 MEQ/L (98-107) Carbon Dioxide Level 34.8 MEQ/L (21.0-32.0) Anion Gap 7 MEQ/L (5-15) Blood Urea Nitrogen 88 MG/DL (7-18) Creatinine 2.23 MG/DL (0.50-1.00) Estimat Glomerular Filtration 21 ML/MIN (>89) Rate Random Glucose 121 MG/DL (74-106) Calcium Level 9.0 MG/DL (8.5-10.1) Magnesium Level 2.3 MG/DL (1.5-2.5) Total Bilirubin 1.2 MG/DL (0.2-1.0) Aspartate Amino Transf 137 U/L (15-37) (AST/SGOT) Alanine Aminotransferase 71 U/L (10-53) (ALT/SGPT) Alkaline Phosphatase 191 U/L (45-117) Total Protein 6.4 GM/DL (6.4-8.2) Albumin 2.5 GM/DL (3.4-5.0) Result Diagram: 11/23/16 0649 11/23/16 0649 Imaging Last 24 hours Impressions Chest X-Ray 11/24/16 0000 Signed Impressions: Service Date/Time: Thursday, November 24, 2016 04:07 - CONCLUSION: Persistent large right pleural effusion and consolidation the right mid and lower lung. John Ha MD Procedures * 11/23/16 -Pleurx catheter placement to right lung. . Assessment and Plan Disease Oriented Problem List: (1) Recurrent left pleural effusion (2) Acute kidney failure (3) CHF (congestive heart failure) (4) Acute on chronic diastolic CHF (congestive heart failure) Symptom Scale: (1) Shortness of breath 0-10 Scale: 3 Comment: Secondary to COPD, CHF, pleural effusion. Currently on O2 via nasal cannula. (2) Pain 0-10 Scale: 5 Comment: Secondary to placement of Pleurx catheter. (3) Debility 0-10 Scale: Unable to quantify Comment: Progressive. Worsen since February 2016. Pertinent Non-Medical Issues Psychosocial: Spiritual: Legal: Ethical issues impacting care: Important Contacts [facility] Melody Pantoja [phone]. . Prognosis Mrs. Garcia is a 72-year-old female with a medical history of oxygen dependent COPD, diabetes mellitus, recurrent pleural effusions requiring frequent thoracentesis, CAD, hypothyroidism, diastolic CHF with mitral regurgitation, atrial fibrillation, hypertension and depression. Patient presented to ED on endorsing generalized weakness, worsening dyspnea on exertion and fatigue for the previous 3 days. Patient was admitted for management of acute on chronic kidney failure, recurrent right pleural effusion, COPD and generalized weakness/fatigue. This is patient's fifth hospitalization this year, worsening clinical condition and physical decline since cardiac bypass in February 2016. Patient at high risk for further complications, continue decline and . . Code Status: No Code Plan * CODE STATUS: No code. DNR/DNI. Community DNR signed. * HEALTHCARE DECISION-MAKING: Patient currently participating in medical decision making. She demonstrates a good understanding of her medical conditions and the ability to weigh the benefits and burdens of treatment options. Patient has designated her best friend, Melody Pantoja, as her health care surrogate decision maker. * GOALS OF CARE: Patient electing to continue conservative management short of NO code/DNR-DNI. Goal of therapy is to return home with home health for independent living. However, patient acknowledges that she may require rehabilitation vs long-term placement/assisted living secondary to progressive physical deconditioning since cardiac bypass in February 2016. Patient verbalized being "sick and tired" of multiple procedures/thoracentesis and acute hospitalizations. Discussed the future role of hospice services should patient's clinical condition continues to worsen or there is additional functional decline. Patient receptive to this. * SYMPTOMS: = Shortness of breath, secondary to COPD, CHF, pleural effusions, acute illness. Patient O2 dependent at home. Currently on O2 via nasal cannula 2 L. Pulmonology following. Pleurx catheter to right lung placed . = Debility: Worsening since February 2016. Exacerbated by her current clinical complications. = Pain: Secondary to recent placement of Pleurx catheter. Percocet 5/325mg q6h PRN available. * Palliative care contact information has been provided to patient. * Palliative care will continue to follow-up as needed for further clarifications of goals of care as her clinical course continue to evolve. . Time Spent Total Floor Time (mins): 38 (Total time to include review medical records, physical exam, completion of community DNR, goals of care conversation.) Face to Face Time (mins): 28 >50% Counseling/Coord of Care: Yes Attestation To help prompt me to consider important information that might be impacting today's encounter and assessment, information from prior notes written by myself or my colleagues may have been "brought forward" into today's note. My signature on this note, however, is an attestation that I personally performed the exam, history, and/or decision-making noted today, and, unless otherwise indicated, the interactions with patient, family, and staff as well as the review of records all occurred today. I also attest that the listed assessment and stated plan reflect my best clinical judgment today based on the combination of historical information, prior notes, and today's exam/ interactions. When time spent is documented, it refers only to time spent today by the signer, or if indicated, combined time spent today by collaborating physician/nurse practitioner. Cecilia Manriquez Nov 24, 2016 11:50
[2016-11-24] MEDS: POTASSIUM CHLORIDE INJ 30 MEQ in SODIUM CHLOR 0.9% 1000 ML INJ 1,000 ML IV SCH (14:00)
--- NOTE | 2016-11-24 14:06 | HHI.PR ---
Subjective Remarks chest tube drain in place- drained about 700 cc straw colored fluid + pain chest tube site site leaking- gauze dressing soaked Objective Vitals Vital Signs Date Time Temp Pulse Resp B/P Pulse Ox O2 Delivery O2 Flow Rate FiO2 11/24/16 11:00 98 Nasal Cannula 2.00 11/24/16 11:00 97.9 76 18 103/48 98 11/24/16 10:18 16 11/24/16 09:26 96 Nasal Cannula 2.00 11/24/16 08:00 98.0 74 18 106/77 98 11/24/16 08:00 98 Nasal Cannula 2.00 11/24/16 06:00 84 11/24/16 05:00 68 11/24/16 04:00 70 11/24/16 03:00 78 11/24/16 03:00 97.8 80 18 103/60 97 11/24/16 03:00 97 Nasal Cannula 2.00 11/24/16 02:00 74 11/24/16 01:00 74 11/24/16 00:00 63 11/23/16 23:00 98.3 75 18 96/50 96 11/23/16 23:00 96 Nasal Cannula 2.00 11/23/16 23:00 66 11/23/16 22:00 62 11/23/16 21:00 64 11/23/16 20:00 64 11/23/16 19:00 98.7 63 18 105/56 97 11/23/16 19:00 97 Nasal Cannula 2.00 11/23/16 19:00 62 11/23/16 17:37 97 Nasal Cannula 2.00 11/23/16 17:00 98.8 60 22 169/71 96 11/23/16 17:00 68 11/23/16 16:48 97 Nasal Cannula 2.00 11/23/16 15:00 108 I/O 11/23/16 11/23/16 11/23/16 11/24/16 11/24/16 11/24/16 07:00 15:00 23:00 07:00 15:00 23:00 Intake Total 720 ml 240 ml Output Total 500 ml 40 ml 800 ml Balance 220 ml -40 ml -560 ml Intake Oral 720 ml 240 ml Output Urine Total 500 ml 800 ml Drainage Total 40 ml # Bowel Movements 1 Result Diagram: 11/23/16 0649 11/23/16 0649 Imaging Last Impressions Chest X-Ray 11/24/16 0000 Signed Impressions: Service Date/Time: Thursday, November 24, 2016 04:07 - CONCLUSION: Persistent large right pleural effusion and consolidation the right mid and lower lung. John Ha MD Catheter Placement X-Ray 11/23/16 0600 Signed Impressions: Service Date/Time: Wednesday, November 23, 2016 14:19 - CONCLUSION: 1. Uneventful placement of 15.5 [place] Aspira tunneled right-sided pleural drainage catheter , as above. Cali Crockett MD Renal Ultrasound 11/23/16 0000 Signed Impressions: Service Date/Time: Wednesday, November 23, 2016 15:40 - CONCLUSION: 1. No evidence for renal calculi or significant obstructive uropathy. 2. Mildly echogenic kidneys bilaterally consistent with some degree of medical renal disease. 3. Small 1.3 cm cyst in the mid right kidney. 4. Incidental note of gallbladder sludge and right-sided pleural effusion. Cali Crockett MD Objective Remarks awake and alert, no acute distress decreased breath sounds and decreased vocal fremiti right base to mid irregular rhythm, 3/6 systolic murmur left sternal border abdomen soft, nontender extremities no edema neuro exam- non focal Procedures chest tube-pig tail tunnelled catheter placement A/P Assessment and Plan -Recurrent pleural effusion- requiring repeated thoracentesis- rapidly accumulating - hold diuretics for now due to JULIANE - Pulmonaryff - Pigtail catheter 11/23 -monitor output - site leaking a lot- s/w IR nurse- Yudith will have someone check on it Atrial fibrillation chronic- aim for rate control HYpertension History of Mitral regurgitation - on CCB and BB - on OAC- held due to frequent thoracentesis Acute kidney injury - gentle hydration- NS + KCL - repeat labs today Hypokalemia - replace gently IV and po - Mg normal - recheck today DM type 2- -insulin requiring -good readings -poor po- start ensure discuss with her that she is going into multiorgan failure - Palliative care ff - GAURIR Kortney Cee MD Nov 24, 2016 14:05
--- NOTE | 2016-11-24 15:13 | HHI.PR ---
Subjective Remarks 76 YOWF with Recurrent pleural effusion had Right pleurex cathetor Mild weeping from Pleurex cathetor site plurex was drained today, 750 cc fluid removed Drainage stopped as pt started having chest pain. Objective Vital Signs GENERAL: Elderly WF,NAD SKIN: Warm and dry. HEAD: Normocephalic. EYES: No scleral icterus. No injection or drainage. NECK: Supple, trachea midline. No JVD or lymphadenopathy. CARDIOVASCULAR: Regular rate and rhythm without murmurs, gallops, or rubs. RESPIRATORY: Breath sounds equal bilaterally. No accessory muscle use. right pleurex cathetor GASTROINTESTINAL: Abdomen soft, non-tender, nondistended. MUSCULOSKELETAL: No cyanosis, or edema. BACK: Nontender without obvious deformity. No CVA tenderness. Vital Signs Date Time Temp Pulse Resp B/P Pulse Ox O2 Delivery O2 Flow Rate FiO2 11/24/16 11:00 98 Nasal Cannula 2.00 11/24/16 11:00 97.9 76 18 103/48 98 11/24/16 10:18 16 11/24/16 09:26 96 Nasal Cannula 2.00 11/24/16 08:00 98.0 74 18 106/77 98 11/24/16 08:00 98 Nasal Cannula 2.00 11/24/16 06:00 84 11/24/16 05:00 68 11/24/16 04:00 70 11/24/16 03:00 78 11/24/16 03:00 97.8 80 18 103/60 97 11/24/16 03:00 97 Nasal Cannula 2.00 11/24/16 02:00 74 11/24/16 01:00 74 11/24/16 00:00 63 11/23/16 23:00 98.3 75 18 96/50 96 11/23/16 23:00 96 Nasal Cannula 2.00 11/23/16 23:00 66 11/23/16 22:00 62 11/23/16 21:00 64 11/23/16 20:00 64 11/23/16 19:00 98.7 63 18 105/56 97 11/23/16 19:00 97 Nasal Cannula 2.00 11/23/16 19:00 62 11/23/16 17:37 97 Nasal Cannula 2.00 11/23/16 17:00 98.8 60 22 169/71 96 11/23/16 17:00 68 11/23/16 16:48 97 Nasal Cannula 2.00 I/O 11/23/16 11/23/16 11/23/16 11/24/16 11/24/16 11/24/16 07:00 15:00 23:00 07:00 15:00 23:00 Intake Total 720 ml 240 ml Output Total 500 ml 40 ml 800 ml Balance 220 ml -40 ml -560 ml Intake Oral 720 ml 240 ml Output Urine Total 500 ml 800 ml Drainage Total 40 ml # Bowel Movements 1 Result Diagram: 11/23/16 0649 11/23/16 0649 A/P Assessment and Plan Recurrent Pleural effusion S/P Pleurex cathetor placement CAD COPD Anxiety CKD PLAN: Pleurex cathetor, will drain prn Aerosol nebs Supplement 02 monitor renal Functions. Pain controll Calixto Hall MD Nov 24, 2016 15:13
[2016-11-24 16:41] LABS: POTASSIUM 4.4 MEQ/L (3.5-5.1)
--- NOTE | 2016-11-24 17:35 | HHI.NPPN ---
Subjective History of Present Illness 76 Year old with ARF , on diuretics, CHF Objective Data Data 11/23/16 11/24/16 19:00 07:00 Intake Total 240 ml Output Total 40 ml 800 ml Balance -40 ml -560 ml Intake Oral 240 ml Output Urine Total 800 ml Drainage Total 40 ml # Bowel Movements 1 Vital Signs Date Time Temp Pulse Resp B/P Pulse Ox O2 Delivery O2 Flow Rate FiO2 11/24/16 16:00 98.2 75 18 109/56 94 11/24/16 15:00 70 11/24/16 14:00 68 11/24/16 13:00 76 11/24/16 12:00 78 11/24/16 11:00 88 11/24/16 11:00 98 Nasal Cannula 2.00 11/24/16 11:00 97.9 76 18 103/48 98 11/24/16 10:18 16 11/24/16 10:00 70 11/24/16 09:26 96 Nasal Cannula 2.00 11/24/16 09:00 74 11/24/16 08:00 98.0 74 18 106/77 98 11/24/16 08:00 76 11/24/16 08:00 98 Nasal Cannula 2.00 11/24/16 07:00 66 11/24/16 06:00 84 11/24/16 05:00 68 11/24/16 04:00 70 11/24/16 03:00 78 11/24/16 03:00 97.8 80 18 103/60 97 11/24/16 03:00 97 Nasal Cannula 2.00 11/24/16 02:00 74 11/24/16 01:00 74 11/24/16 00:00 63 11/23/16 23:00 98.3 75 18 96/50 96 11/23/16 23:00 96 Nasal Cannula 2.00 11/23/16 23:00 66 11/23/16 22:00 62 11/23/16 21:00 64 11/23/16 20:00 64 11/23/16 19:00 98.7 63 18 105/56 97 11/23/16 19:00 97 Nasal Cannula 2.00 11/23/16 19:00 62 11/23/16 17:37 97 Nasal Cannula 2.00 -: 11/23/16 0649 11/24/16 1553 Physical Exam General Appearance: Well Developed Neck Neck Exam: Neck Supple Pulmonary Resp Exam: Decreased Bases Cardiology CV Exam: Irregular Gastrointestinal/Abdomen GI Exam: Soft, Bowel Sounds Present Extremeties Extremities Exam: No Edema Assessment/Plan Problem List: (1) JULIANE (acute kidney injury) Plan: Pleural effusion drained 1.9 L Cr declining K normal She has mechanical heart disease and this needs to be corrected diuretics should be used cautiously US kidney CKD RT Renal cyst OK to dc follow up as out pt (2) CHF (congestive heart failure) Plan: Patient has diastolic dysfunction and also has recurrent pleural effusion with valvular heart disease (3) Acute on chronic diastolic CHF (congestive heart failure) Plan: Valvular heart disease (4) Recurrent right pleural effusion Plan: follow up pulmonary Tammie Suggs MD Nov 24, 2016 17:35
[2016-11-24] MEDS: DULoxetine HCl DR 60 MG CAP PO SCH (18:00)
[2016-11-24] MEDS: valACYclovir HCL 500 MG TAB PO SCH (22:20)
[2016-11-24] MEDS: ATORVASTATIN 80 MG TAB PO SCH (22:20)
[2016-11-24] MEDS: traZODone HCL 50 MG TAB PO SCH (22:21)
[2016-11-24] MEDS: INSULIN DETEMIR 100 UNITS/ML VIAL SQ SCH (22:23)
[2016-11-25] VITALS (25 sets, daily range): BP systolic 108–129; BP diastolic 57–73; PULSE 49–86; RESP 16–20; TEMP 97.8–98.6; O2SAT 96–100
[2016-11-25] MEDS: DILTIAZEM HCL 90 MG TAB PO SCH ×4 (00:47→16:57)
[2016-11-25] MEDS: hydrALAZINE HCL 25 MG TAB PO SCH ×3 (06:31→22:11)
[2016-11-25] MEDS: LEVOTHYROXINE SODIUM 150 MCG TAB PO SCH (06:31)
[2016-11-25] MEDS: INSULIN ASPART SUPPLEMENTAL SCALE SQ SCH ×4 (07:00→21:00)
[2016-11-25] MEDS: HEPARIN SODIUM - SQ 10,000 UNITS/ML VIAL SQ SCH ×2 (08:32→22:11)
[2016-11-25] MEDS: DULoxetine HCl DR 60 MG CAP PO SCH (08:32)
[2016-11-25] MEDS: SODIUM CHLORIDE 0.9% FLUSH 10 ML FLUSH IV FLUSH SCH ×2 (08:32→21:00)
[2016-11-25] MEDS: METOPROLOL TARTRATE 25 MG TAB PO SCH ×2 (08:32→22:11)
[2016-11-25] MEDS: PANTOPRAZOLE SOD 40 MG DELAYED RELEASE TAB PO SCH (08:32)
[2016-11-25] MEDS: amLODIPine BESYLATE 5 MG TAB PO SCH (08:32)
--- NOTE | 2016-11-25 11:49 | HHI.HCPN ---
Reason for visit a. To assist with evaluation and management of symptoms including: debility and shortness of breath. b. To assist medical decision maker(s) with: better understanding of current medical conditions; weighing benefits/burdens of medical treatment options; making medical treatment decisions. . Subjective/Interval History Mrs. Garcia is a 72-year-old female with a medical history of oxygen dependent COPD, diabetes mellitus, recurrent pleural effusions requiring frequent thoracentesis, CAD, hypothyroidism, diastolic CHF with mitral regurgitation, atrial fibrillation, hypertension and depression. Patient presented to ED on endorsing generalized weakness, worsening dyspnea on exertion and fatigue for the previous 3 days. Patient was admitted for management of acute on chronic kidney failure, recurrent right pleural effusion, COPD and generalized weakness/fatigue. Palliative care was consulted for clarifications of goals of care given her progressive decline, recent multiple hospitalizations and multiple comorbidities. Patient underwent Pleurx catheter placement to right chest 11/23/16. 750 mL of pleural fluid drained yesterday. Palliative care was called at bedside by patient for ongoing goals of care discussion and emotional support. Patient seen in her room, she was resting in bed in no acute distress, endorsing mild pain to right chest -side of Pleurx catheter and some abdominal discomfort on inspiration. Taking Percocet as needed with good effectiveness. Endorsing shortness of breath on exertion, nausea/vomiting. Fair appetite, tolerating diet. Patient afebrile, stable hemodynamically. O2 via nasal cannula at 2 L. Oxygen saturation in the high 90s. No new laboratory workup for review. Patient reports pleural large amounts of fluid leakage around insertion site. Patient reports feeling overwhelmed secondary to progressive weakness/debility, multiple acute hospitalizations and overall decline in her clinical condition. Pt reports feeling sad/depressed, asking about her dose of Cymbalta. This was discontinued secondary to acute kidney injury but was restarted yesterday. Communicated this to patient. Patient verbalize acknowledging her progressive clinical decline, is concerned about her ability to return home for independent living. Patient asking appropriate questions about hospice philosophy, benefits and timing. Goals of care at this time is to discharge home with home health and enroll into hospice services when her clinical condition is such that she will require more assistance with symptom management or there is additional functional decline. Ongoing emotional support and active listening provided. Patient verbalized appreciation for my visit today. Palliative care will continue to follow-up as needed. . Family/friend interactions No family at bedside. . Advance Directives Health Care Surrogate: Copy in medical record Advance Directive Specifics Date completed: 09/14/16. . Health Care Surrogate(s): Friend Melody Pantoja. . Documented care wishes: No living will completed. Information about living will was left with patient to review. . Significant change in goals: No code. DNR/DNI. Continue conservative management with goal to discharge home with home health. . Objective Vital Signs Date Time Temp Pulse Resp B/P Pulse Ox O2 Delivery O2 Flow Rate FiO2 11/25/16 09:36 99 Nasal Cannula 2.00 11/25/16 08:00 Nasal Cannula 2.00 11/25/16 08:00 75 11/25/16 08:00 97.8 82 16 118/62 98 11/25/16 07:23 16 11/25/16 05:00 76 11/25/16 04:00 98 Nasal Cannula 2.00 11/25/16 04:00 98.5 78 20 120/73 100 11/25/16 04:00 76 11/25/16 03:00 78 11/25/16 02:00 74 11/25/16 01:00 78 11/25/16 00:00 98.2 77 20 108/66 96 11/25/16 00:00 98 Nasal Cannula 2.00 11/25/16 00:00 74 11/24/16 23:00 76 11/24/16 22:00 74 11/24/16 21:00 74 11/24/16 20:00 98.5 75 20 126/74 97 11/24/16 20:00 76 11/24/16 20:00 98 Nasal Cannula 2.00 11/24/16 19:17 98 Nasal Cannula 4.00 11/24/16 18:00 82 11/24/16 17:00 74 11/24/16 16:00 68 11/24/16 16:00 98.2 75 18 109/56 94 11/24/16 15:00 70 11/24/16 15:00 94 Room Air 11/24/16 14:00 68 11/24/16 13:00 76 11/24/16 12:00 78 Intake & Output 11/25/16 11/25/16 07:00 19:00 Intake Total 1280 ml Output Total 1375 ml Balance -95 ml Intake Oral 1080 ml IV Total 200 ml Output Urine Total 1375 ml # Voids 4 # Bowel Movements 1 Physical Exam CONSTITUTIONAL/GENERAL: This is an adequately nourished patient in no acute distress. TUBES/LINES/DRAINS: PIV's. Nasal cannula. SKIN: No jaundice, rashes, or lesions. Ecchymoses on upper extremities. No wounds seen anteriorly. Skin temperature appropriate. Not diaphoretic. HEAD: Atraumatic. Normocephalic. EYES: Pupils equal and round and reactive. Extraocular motions intact. No scleral icterus. No injection or drainage. ENT: Hearing grossly normal. Nose without bleeding or purulent drainage. Moist oral mucosa. NECK: Trachea midline. Supple, nontender. CARDIOVASCULAR: Irregular rate and rhythm without murmurs, gallops, or rubs. Peripheral pulses symmetric. RESPIRATORY/CHEST: Symmetric, unlabored respirations. Inspiratory crackles to right lung. Pleurx catheter to right lateral chest, dressing saturated with pleural fluid. GASTROINTESTINAL: Abdomen soft, non-tender, nondistended. No guarding. Bowel sounds present. GENITOURINARY: Without palpable bladder distension. MUSCULOSKELETAL: Extremities without clubbing, cyanosis. Trace edema to bilateral lower extremities. No mottling or clubbing. NEUROLOGICAL: Awake and alert. Motor and sensory grossly within normal limits. Follows commands. Cognitively sharp. Moves all extremities. PSYCHIATRIC: No obvious anxiety/depression. no apparent hallucinations or other psychotic thought process. Pleasant and cooperative. . Diagnostic Tests Laboratory Laboratory Tests Test 11/22/16 11/22/16 11/22/16 11/22/16 14:20 15:10 16:37 17:50 White Blood Count 11.7 TH/MM3 (4.0-11.0) Red Blood Count 3.80 MIL/MM3 (4.00-5.30) Hemoglobin 10.1 GM/DL (11.6-15.3) Hematocrit 31.1 % (35.0-46.0) Mean Corpuscular Volume 81.9 FL (80.0-100.0) Mean Corpuscular Hemoglobin 26.6 PG (27.0-34.0) Mean Corpuscular Hemoglobin 32.5 % Concent (32.0-36.0) Red Cell Distribution Width 16.2 % (11.6-17.2) Platelet Count 604 TH/MM3 (150-450) Mean Platelet Volume 8.4 FL (7.0-11.0) Neutrophils (%) (Auto) 93.3 % (16.0-70.0) Lymphocytes (%) (Auto) 2.0 % (9.0-44.0) Monocytes (%) (Auto) 4.0 % (0.0-8.0) Eosinophils (%) (Auto) 0.1 % (0.0-4.0) Basophils (%) (Auto) 0.6 % (0.0-2.0) Neutrophils # (Auto) 10.9 TH/MM3 (1.8-7.7) Lymphocytes # (Auto) 0.2 TH/MM3 (1.0-4.8) Monocytes # (Auto) 0.5 TH/MM3 (0-0.9) Eosinophils # (Auto) 0.0 TH/MM3 (0-0.4) Basophils # (Auto) 0.1 TH/MM3 (0-0.2) CBC Comment DIFF FINAL Differential Comment Prothrombin Time 12.2 SEC (9.8-11.6) Prothromb Time International 1.1 RATIO Ratio Activated Partial 31.1 SEC Thromboplast Time (24.3-30.1) Sodium Level 137 MEQ/L (136-145) Potassium Level 3.1 MEQ/L (3.5-5.1) Chloride Level 91 MEQ/L (98-107) Carbon Dioxide Level 37.8 MEQ/L (21.0-32.0) Anion Gap 8 MEQ/L (5-15) Blood Urea Nitrogen 85 MG/DL (7-18) Creatinine 2.28 MG/DL (0.50-1.00) Estimat Glomerular Filtration 21 ML/MIN (>89) Rate Random Glucose 64 MG/DL (74-106) Calcium Level 10.1 MG/DL (8.5-10.1) Magnesium Level 2.3 MG/DL (1.5-2.5) Total Creatine Kinase 67 U/L (26-192) Troponin I 0.10 NG/ML 0.09 NG/ML (0.02-0.05) (0.02-0.05) B-Type Natriuretic Peptide 385 PG/ML (0-100) Urine Color YELLOW (YELLW/STRAW) Urine Turbidity CLEAR (CLEAR) Urine pH 5.0 (5.0-8.5) Urine Specific [place] 1.008 (1.002-1.035) Urine Protein NEG mg/dL (NEG-TRACE) Urine Glucose (UA) NEG mg/dL (NEG) Urine Ketones NEG mg/dL (NEG) Urine Occult Blood NEG (NEG) Urine Nitrite NEG (NEG) Urine Bilirubin NEG (NEG) Urine Urobilinogen LESS THAN 2.0 MG/DL (LESS THAN 2.0) Urine Leukocyte Esterase NEG (NEG) Urine WBC 1 /hpf (0-5) Urine Squamous Epithelial <1 /hpf (0-5) Cells Urine Bacteria RARE /hpf (NONE) Urine Hyaline Casts 7 /lpf (RARE) Urine Mucus FEW /lpf (OCC) Microscopic Urinalysis Comment CULT NOT INDICATED Blood Gas Puncture Site RT RADIAL Blood Gas Patient Temperature 98.6 Blood Gas HCO3 33 mmol/L (22-26) Blood Gas Base Excess 8.4 mmol/L (-2-2) Blood Gas Oxygen Saturation 92 % (90-100) Arterial Blood pH 7.44 (7.380-7.420) Arterial Blood Partial 49 mmHg (38-42) Pressure CO2 Arterial Blood Partial 76 mmHG Pressure O2 (61-120) Arterial Blood Oxygen Content 12.0 Vol % (12.0-20.0) Arterial Blood 1.3 % (0-4) Carboxyhemoglobin Arterial Blood Methemoglobin 1.1 % (0-2) Blood Gas Hemoglobin 9.2 G/DL (12.0-16.0) Oxygen Delivery Device NASAL CANNULA Blood Gas Liter Flow 2 L/M Test 11/23/16 11/23/16 11/24/16 00:08 06:49 15:53 Troponin I 0.09 NG/ML (0.02-0.05) White Blood Count 4.9 TH/MM3 (4.0-11.0) Red Blood Count 3.18 MIL/MM3 (4.00-5.30) Hemoglobin 8.7 GM/DL (11.6-15.3) Hematocrit 25.7 % (35.0-46.0) Mean Corpuscular Volume 80.8 FL (80.0-100.0) Mean Corpuscular Hemoglobin 27.5 PG (27.0-34.0) Mean Corpuscular Hemoglobin 34.0 % Concent (32.0-36.0) Red Cell Distribution Width 16.4 % (11.6-17.2) Platelet Count 474 TH/MM3 (150-450) Mean Platelet Volume 8.2 FL (7.0-11.0) Neutrophils (%) (Auto) 89.6 % (16.0-70.0) Lymphocytes (%) (Auto) 4.5 % (9.0-44.0) Monocytes (%) (Auto) 5.2 % (0.0-8.0) Eosinophils (%) (Auto) 0.0 % (0.0-4.0) Basophils (%) (Auto) 0.7 % (0.0-2.0) Neutrophils # (Auto) 4.4 TH/MM3 (1.8-7.7) Lymphocytes # (Auto) 0.2 TH/MM3 (1.0-4.8) Monocytes # (Auto) 0.3 TH/MM3 (0-0.9) Eosinophils # (Auto) 0.0 TH/MM3 (0-0.4) Basophils # (Auto) 0.0 TH/MM3 (0-0.2) CBC Comment DIFF FINAL Differential Comment Sodium Level 137 MEQ/L 130 MEQ/L (136-145) (136-145) Potassium Level 2.9 MEQ/L 4.4 MEQ/L (3.5-5.1) (3.5-5.1) Chloride Level 95 MEQ/L 92 MEQ/L (98-107) (98-107) Carbon Dioxide Level 34.8 MEQ/L 30.0 MEQ/L (21.0-32.0) (21.0-32.0) Anion Gap 7 MEQ/L (5-15) 8 MEQ/L (5-15) Blood Urea Nitrogen 88 MG/DL (7-18) 88 MG/DL (7-18) Creatinine 2.23 MG/DL 2.19 MG/DL (0.50-1.00) (0.50-1.00) Estimat Glomerular Filtration 21 ML/MIN (>89) 22 ML/MIN (>89) Rate Random Glucose 121 MG/DL 76 MG/DL (74-106) (74-106) Calcium Level 9.0 MG/DL 8.3 MG/DL (8.5-10.1) (8.5-10.1) Magnesium Level 2.3 MG/DL (1.5-2.5) Total Bilirubin 1.2 MG/DL (0.2-1.0) Aspartate Amino Transf 137 U/L (15-37) (AST/SGOT) Alanine Aminotransferase 71 U/L (10-53) (ALT/SGPT) Alkaline Phosphatase 191 U/L (45-117) Total Protein 6.4 GM/DL (6.4-8.2) Albumin 2.5 GM/DL (3.4-5.0) Result Diagram: 11/23/16 0649 11/24/16 1553 Procedures * 11/23/16 -Pleurx catheter placement to right lung. . Assessment and Plan Disease Oriented Problem List: (1) Recurrent left pleural effusion (2) Acute kidney failure (3) CHF (congestive heart failure) (4) Acute on chronic diastolic CHF (congestive heart failure) Symptom Scale: (1) Shortness of breath 0-10 Scale: 0 Comment: Secondary to COPD, CHF, pleural effusion. Currently on O2 via nasal cannula. (2) Pain 0-10 Scale: 4 Comment: Secondary to placement of Pleurx catheter. (3) Debility 0-10 Scale: Unable to quantify Comment: Progressive. Worsen since February 2016. Pertinent Non-Medical Issues Psychosocial: Spiritual: Legal: Ethical issues impacting care: Important Contacts [facility] Melody Pantoja [phone]. . Prognosis Mrs. Garcia is a 72-year-old female with a medical history of oxygen dependent COPD, diabetes mellitus, recurrent pleural effusions requiring frequent thoracentesis, CAD, hypothyroidism, diastolic CHF with mitral regurgitation, atrial fibrillation, hypertension and depression. Patient presented to ED on endorsing generalized weakness, worsening dyspnea on exertion and fatigue for the previous 3 days. Patient was admitted for management of acute on chronic kidney failure, recurrent right pleural effusion, COPD and generalized weakness/fatigue. This is patient's fifth hospitalization this year, worsening clinical condition and physical decline since cardiac bypass in February 2016. Patient at high risk for further complications, continue decline and . . Code Status: No Code Plan * CODE STATUS: No code. DNR/DNI. Community DNR signed. * GOALS OF CARE: 11/25/16 -Patient electing to continue conservative management short of NO code/DNR-DNI. Goal of therapy is to return home with home health for independent living. However, patient acknowledges that she may require rehabilitation vs long-term placement/assisted living secondary to progressive physical deconditioning since cardiac bypass in February 2016. Patient reports feeling overwhelmed secondary to progressive weakness/debility, multiple acute hospitalizations and overall decline in her clinical condition. Discussed the future role of hospice services should her clinical condition continued to worsen or there is additional functional decline. Patient receptive to this. Discussed at length appropriate timing for hospice consultation. * HEALTHCARE DECISION-MAKING: Patient currently participating in medical decision making. She demonstrates a good understanding of her medical conditions and the ability to weigh the benefits and burdens of treatment options. Patient has designated her best friend, Melody Pantoja, as her health care surrogate decision maker. * SYMPTOMS: = Shortness of breath, secondary to COPD, CHF, pleural effusions, acute illness. Patient O2 dependent at home. Currently on O2 via nasal cannula 2 L. Pulmonology following. Pleurx catheter to right lung placed . = Debility: Worsening since February 2016. Exacerbated by her current clinical complications. = Pain: Secondary to recent placement of Pleurx catheter. Percocet 5/325mg q6h PRN available. * Ongoing emotional support and active listening provided. * Palliative care contact information has been provided to patient. * Palliative care will continue to follow-up as needed for further clarifications of goals of care as her clinical course continue to evolve. . Time Spent Total Floor Time (mins): 42 (Total time to include review medical records, physical exam, lengthy discussions on goals of care to include advance directives in introduction to hospice philosophy and benefits.) >50% Counseling/Coord of Care: Yes Attestation To help prompt me to consider important information that might be impacting today's encounter and assessment, information from prior notes written by myself or my colleagues may have been "brought forward" into today's note. My signature on this note, however, is an attestation that I personally performed the exam, history, and/or decision-making noted today, and, unless otherwise indicated, the interactions with patient, family, and staff as well as the review of records all occurred today. I also attest that the listed assessment and stated plan reflect my best clinical judgment today based on the combination of historical information, prior notes, and today's exam/ interactions. When time spent is documented, it refers only to time spent today by the signer, or if indicated, combined time spent today by collaborating physician/nurse practitioner. Cecilia Manrqiuez Nov 25, 2016 11:49
[2016-11-25] MEDS: oxyCODONE/ACETAMINOPHEN 5 MG/325 MG TAB PO PRN ×2 (12:07→16:57)
--- NOTE | 2016-11-25 12:38 | HHI.PR ---
Subjective Remarks comfortable patient still leaking around chest tube site Objective Vitals Vital Signs Date Time Temp Pulse Resp B/P Pulse Ox O2 Delivery O2 Flow Rate FiO2 11/25/16 09:36 99 Nasal Cannula 2.00 11/25/16 08:00 Nasal Cannula 2.00 11/25/16 08:00 75 11/25/16 08:00 97.8 82 16 118/62 98 11/25/16 07:23 16 11/25/16 05:00 76 11/25/16 04:00 98 Nasal Cannula 2.00 11/25/16 04:00 98.5 78 20 120/73 100 11/25/16 04:00 76 11/25/16 03:00 78 11/25/16 02:00 74 11/25/16 01:00 78 11/25/16 00:00 98.2 77 20 108/66 96 11/25/16 00:00 98 Nasal Cannula 2.00 11/25/16 00:00 74 11/24/16 23:00 76 11/24/16 22:00 74 11/24/16 21:00 74 11/24/16 20:00 98.5 75 20 126/74 97 11/24/16 20:00 76 11/24/16 20:00 98 Nasal Cannula 2.00 11/24/16 19:17 98 Nasal Cannula 4.00 11/24/16 18:00 82 11/24/16 17:00 74 11/24/16 16:00 68 11/24/16 16:00 98.2 75 18 109/56 94 11/24/16 15:00 70 11/24/16 15:00 94 Room Air 11/24/16 14:00 68 11/24/16 13:00 76 I/O 11/24/16 11/24/16 11/24/16 11/25/16 11/25/16 11/25/16 07:00 15:00 23:00 07:00 15:00 23:00 Intake Total 240 ml 800 ml 480 ml Output Total 800 ml 1375 ml Balance -560 ml 800 ml -895 ml Intake Oral 240 ml 600 ml 480 ml IV Total 200 ml Output Urine Total 800 ml 1375 ml # Voids 4 # Bowel Movements 1 1 Result Diagram: 11/23/16 0649 11/24/16 1553 Imaging Last Impressions Chest X-Ray 11/24/16 0000 Signed Impressions: Service Date/Time: Thursday, November 24, 2016 04:07 - CONCLUSION: Persistent large right pleural effusion and consolidation the right mid and lower lung. John Ha MD Catheter Placement X-Ray 11/23/16 0600 Signed Impressions: Service Date/Time: Wednesday, November 23, 2016 14:19 - CONCLUSION: 1. Uneventful placement of 15.5 [place] Aspira tunneled right-sided pleural drainage catheter , as above. Cali Crockett MD Renal Ultrasound 11/23/16 0000 Signed Impressions: Service Date/Time: Wednesday, November 23, 2016 15:40 - CONCLUSION: 1. No evidence for renal calculi or significant obstructive uropathy. 2. Mildly echogenic kidneys bilaterally consistent with some degree of medical renal disease. 3. Small 1.3 cm cyst in the mid right kidney. 4. Incidental note of gallbladder sludge and right-sided pleural effusion. Cali Crockett MD Objective Remarks awake and alert, no acute distress decreased breath sounds and decreased vocal fremiti right base to mid irregular rhythm, systolic murmur right sternal border abdomen soft, nontender extremities no edema neuro exam- non focal Procedures chest tube-pig tail tunnelled catheter placement A/P Assessment and Plan -Recurrent pleural effusion- requiring repeated thoracentesis- rapidly accumulating - hold diuretics for now due to JULIANE - Pulmonaryff - Pigtail catheter placed - drain this daily up to about 1 L - chest tube output on record not accurate because fluid is leaking from CT site/opening itself -IR ff closely along with us -prn pain meds Atrial fibrillation chronic- rate controlled HYpertension Mitral regurgitation - on CCB and BB - on OAC- held due to frequent thoracentesis Acute kidney injury- resolved Hypokalemia- resolved - on po supplement - Mg normal DM type 2- -insulin requiring -good readings -poor po- supplements with ensure discuss with her that she is going into multiorgan failure - Palliative care consult- met with them - Kortney Rosen MD Nov 25, 2016 12:38
--- NOTE | 2016-11-25 13:15 | HHI.NPPN ---
Subjective History of Present Illness 76 Year old with ARF , on diuretics, CHF Objective Data Data 11/24/16 11/25/16 19:00 07:00 Intake Total 1280 ml Output Total 1375 ml Balance -95 ml Intake Oral 1080 ml IV Total 200 ml Output Urine Total 1375 ml # Voids 4 # Bowel Movements 1 Vital Signs Date Time Temp Pulse Resp B/P Pulse Ox O2 Delivery O2 Flow Rate FiO2 11/25/16 12:58 20 11/25/16 12:00 Nasal Cannula 2.00 11/25/16 12:00 79 11/25/16 12:00 98.3 85 16 121/65 96 11/25/16 09:36 99 Nasal Cannula 2.00 11/25/16 08:00 Nasal Cannula 2.00 11/25/16 08:00 75 11/25/16 08:00 97.8 82 16 118/62 98 11/25/16 05:00 76 11/25/16 04:00 98 Nasal Cannula 2.00 11/25/16 04:00 98.5 78 20 120/73 100 11/25/16 04:00 76 11/25/16 03:00 78 11/25/16 02:00 74 11/25/16 01:00 78 11/25/16 00:00 98.2 77 20 108/66 96 11/25/16 00:00 98 Nasal Cannula 2.00 11/25/16 00:00 74 11/24/16 23:00 76 11/24/16 22:00 74 11/24/16 21:00 74 11/24/16 20:00 98.5 75 20 126/74 97 11/24/16 20:00 76 11/24/16 20:00 98 Nasal Cannula 2.00 11/24/16 19:17 98 Nasal Cannula 4.00 11/24/16 18:00 82 11/24/16 17:00 74 11/24/16 16:00 68 11/24/16 16:00 98.2 75 18 109/56 94 11/24/16 15:00 70 11/24/16 15:00 94 Room Air 11/24/16 14:00 68 -: 11/23/16 0649 11/24/16 1553 Physical Exam General Appearance: Well Developed Neck Neck Exam: Neck Supple Pulmonary Resp Exam: Decreased Bases Cardiology CV Exam: Irregular Gastrointestinal/Abdomen GI Exam: Soft, Bowel Sounds Present Extremeties Extremities Exam: No Edema Assessment/Plan Problem List: (1) JULIANE (acute kidney injury) Plan: Pleural effusion drained 0.9 L Cr declining K normal She has mechanical heart disease and this needs to be corrected diuretics should be used cautiously US kidney CKD RT Renal cyst stable await final disposition as leaking fluid around rt CT (2) CHF (congestive heart failure) Plan: Patient has diastolic dysfunction and also has recurrent pleural effusion with valvular heart disease (3) Acute on chronic diastolic CHF (congestive heart failure) Plan: Valvular heart disease (4) Recurrent right pleural effusion Plan: follow up pulmonary Tammie Suggs MD Nov 25, 2016 13:15
[2016-11-25] MEDS: POTASSIUM CHLORIDE INJ 30 MEQ in SODIUM CHLOR 0.9% 1000 ML INJ 1,000 ML IV SCH (13:36)
--- NOTE | 2016-11-25 17:51 | HHI.PR ---
Subjective Remarks 76 YOWF with Recurrent pleural effusion had Right pleurex cathetor Mild weeping from Pleurex cathetor site Had Plurex drained 900 cc Objective Vital Signs Vital Signs Date Time Temp Pulse Resp B/P Pulse Ox O2 Delivery O2 Flow Rate FiO2 11/25/16 17:33 20 11/25/16 16:00 Nasal Cannula 2.00 11/25/16 16:00 98.6 67 18 112/57 98 11/25/16 16:00 49 11/25/16 15:00 58 11/25/16 14:00 66 11/25/16 13:00 64 11/25/16 12:00 Nasal Cannula 2.00 11/25/16 12:00 79 11/25/16 12:00 98.3 85 16 121/65 96 11/25/16 11:00 64 11/25/16 10:00 64 11/25/16 09:36 99 Nasal Cannula 2.00 11/25/16 09:00 80 11/25/16 08:00 Nasal Cannula 2.00 11/25/16 08:00 75 11/25/16 08:00 97.8 82 16 118/62 98 11/25/16 07:00 80 11/25/16 05:00 76 11/25/16 04:00 98 Nasal Cannula 2.00 11/25/16 04:00 98.5 78 20 120/73 100 11/25/16 04:00 76 11/25/16 03:00 78 11/25/16 02:00 74 11/25/16 01:00 78 11/25/16 00:00 98.2 77 20 108/66 96 11/25/16 00:00 98 Nasal Cannula 2.00 11/25/16 00:00 74 11/24/16 23:00 76 11/24/16 22:00 74 11/24/16 21:00 74 11/24/16 20:00 98.5 75 20 126/74 97 11/24/16 20:00 76 11/24/16 20:00 98 Nasal Cannula 2.00 11/24/16 19:17 98 Nasal Cannula 4.00 11/24/16 18:00 82 I/O 6/28/17 6/28/17 6/28/17 6/29/17 6/29/17 6/29/17 07:00 15:00 23:00 07:00 15:00 23:00 Intake Total 240 ml 800 ml 480 ml 480 ml Output Total 800 ml 1375 ml 650 ml Balance -560 ml 800 ml -895 ml -170 ml Intake Oral 240 ml 600 ml 480 ml 480 ml IV Total 200 ml Output Urine Total 800 ml 1375 ml 650 ml # Voids 4 # Bowel Movements 1 1 1 Result Diagram: 11/23/16 0649 11/24/16 1553 A/P Assessment and Plan Recurrent Pleural effusion S/P Pleurex cathetor placement CAD COPD Anxiety CKD PLAN: Pleurex cathetor, will drain prn Aerosol nebs Supplement 02 monitor renal Functions. Pain controll Calixto Hall MD Nov 25, 2016 17:51
[2016-11-25] MEDS: INSULIN DETEMIR 100 UNITS/ML VIAL SQ SCH (21:00)
[2016-11-25] MEDS: traZODone HCL 50 MG TAB PO SCH (22:11)
[2016-11-25] MEDS: ATORVASTATIN 80 MG TAB PO SCH (22:11)
[2016-11-25] MEDS: valACYclovir HCL 500 MG TAB PO SCH (22:11)
[2016-11-26] VITALS (25 sets, daily range): BP systolic 108–136; BP diastolic 59–74; PULSE 58–85; RESP 16–18; TEMP 97.8–98.6; O2SAT 96–100
[2016-11-26] MEDS: DILTIAZEM HCL 90 MG TAB PO SCH ×4 (00:43→16:23)
[2016-11-26] MEDS: hydrALAZINE HCL 25 MG TAB PO SCH ×3 (06:13→21:14)
[2016-11-26] MEDS: LEVOTHYROXINE SODIUM 150 MCG TAB PO SCH (06:13)
[2016-11-26] MEDS: INSULIN ASPART SUPPLEMENTAL SCALE SQ SCH ×4 (06:20→20:46)
[2016-11-26 07:15] LABS: BICARBONATE 37.2 MEQ/L (21.0-32.0); POTASSIUM 3.9 MEQ/L (3.5-5.1)
[2016-11-26] MEDS: SODIUM CHLORIDE 0.9% FLUSH 10 ML FLUSH IV FLUSH SCH ×2 (09:00→20:36)
[2016-11-26] MEDS: METOPROLOL TARTRATE 25 MG TAB PO SCH ×2 (09:03→20:35)
[2016-11-26] MEDS: DULoxetine HCl DR 60 MG CAP PO SCH (09:03)
[2016-11-26] MEDS: HEPARIN SODIUM - SQ 10,000 UNITS/ML VIAL SQ SCH ×2 (09:03→20:36)
[2016-11-26] MEDS: PANTOPRAZOLE SOD 40 MG DELAYED RELEASE TAB PO SCH (09:03)
[2016-11-26] MEDS: oxyCODONE/ACETAMINOPHEN 5 MG/325 MG TAB PO PRN (11:29)
[2016-11-26] MEDS: POTASSIUM CHLORIDE INJ 30 MEQ in SODIUM CHLOR 0.9% 1000 ML INJ 1,000 ML IV SCH (12:18)
--- NOTE | 2016-11-26 14:59 | HHI.PR ---
Subjective Remarks comfortable + pain at the end of the draining when reaches about 500-750 cc no diarrhea Objective Vitals Vital Signs Date Time Temp Pulse Resp B/P Pulse Ox O2 Delivery O2 Flow Rate FiO2 11/26/16 12:17 16 11/26/16 12:00 Nasal Cannula 2.00 11/26/16 12:00 98.5 68 16 134/59 100 11/26/16 11:00 62 11/26/16 10:00 68 11/26/16 09:00 84 11/26/16 08:00 96 Nasal Cannula 2.00 11/26/16 08:00 69 11/26/16 08:00 Nasal Cannula 2.00 11/26/16 08:00 97.8 80 18 116/63 96 11/26/16 07:00 74 11/26/16 06:00 72 11/26/16 05:00 70 11/26/16 04:40 Nasal Cannula 2.00 11/26/16 04:40 98.6 85 18 108/69 98 11/26/16 04:00 66 11/26/16 03:00 70 11/26/16 02:51 98 Nasal Cannula 2.00 11/26/16 02:00 72 11/26/16 01:00 72 11/26/16 00:00 98.5 71 18 134/60 98 11/26/16 00:00 Nasal Cannula 2.00 11/26/16 00:00 74 11/25/16 23:00 74 11/25/16 22:00 86 11/25/16 21:00 66 11/25/16 20:10 Nasal Cannula 2.00 11/25/16 20:10 98.5 66 18 129/63 98 11/25/16 20:00 60 11/25/16 19:00 66 11/25/16 18:00 66 11/25/16 17:00 72 11/25/16 16:00 Nasal Cannula 2.00 11/25/16 16:00 98.6 67 18 112/57 98 11/25/16 16:00 49 11/25/16 15:00 58 I/O 11/25/16 11/25/16 11/25/16 11/26/16 11/26/16 11/26/16 07:00 15:00 23:00 07:00 15:00 23:00 Intake Total 480 ml 480 ml 480 ml Output Total 1375 ml 1550 ml 1150 ml Balance -895 ml -1070 ml -670 ml Intake Oral 480 ml 480 ml 480 ml Output Urine Total 1375 ml 650 ml 1150 ml Drainage Total 900 ml # Bowel Movements 1 Result Diagram: 11/23/16 0649 11/26/16 0552 Objective Remarks awake and alert, no acute distress decreased breath sounds and decreased vocal fremiti right base to mid, Spira catheter in place right chest wall irregular rhythm, systolic murmur right sternal border abdomen soft, nontender extremities no edema neuro exam- non focal Procedures chest tube-pig tail tunnelled catheter placement A/P Assessment and Plan -Recurrent pleural effusion- requiring repeated thoracentesis- rapidly accumulating - hold diuretics for now due to JULIANE - Pulmonaryff - Pigtail catheter placed - increase draining 2x a day - this way will decrease leaking -IR ff closely along with us -prn pain meds - will give IV Dilaudid during draining - may be pain meds can make her tolerate more draining - restart Bumex at 1 mg daily (at home was on tid) - creatinine stabilizing Atrial fibrillation chronic- rate controlled HYpertension Mitral regurgitation diastolic heart Failure - on CCB and BB - on OAC- - restart Xarelto -consider restarting diuretic with close monitoring of renal functions Acute kidney injury- resolved Hypokalemia- resolved - on po supplement - Mg normal DM type 2- -insulin requiring -good readings -poor po- supplements with ensure discuss with her that she is going into multiorgan failure - Palliative care consult- met with them - Kortney Rosen MD Nov 26, 2016 14:59
[2016-11-26] MEDS: BUMETANIDE 1 MG TAB PO SCH (16:24)
--- NOTE | 2016-11-26 17:59 | HHI.NPPN ---
Subjective History of Present Illness 76 Year old with ARF , on diuretics, CHF Objective Data Data 11/25/16 11/26/16 19:00 07:00 Intake Total 480 ml 480 ml Output Total 1550 ml 1150 ml Balance -1070 ml -670 ml Intake Oral 480 ml 480 ml Output Urine Total 650 ml 1150 ml Drainage Total 900 ml # Bowel Movements 1 Vital Signs Date Time Temp Pulse Resp B/P Pulse Ox O2 Delivery O2 Flow Rate FiO2 11/26/16 16:00 Nasal Cannula 2.00 11/26/16 16:00 69 11/26/16 16:00 98.6 69 18 130/62 97 11/26/16 15:00 64 11/26/16 14:00 68 11/26/16 13:00 62 11/26/16 12:17 16 11/26/16 12:00 Nasal Cannula 2.00 11/26/16 12:00 64 11/26/16 12:00 98.5 68 16 134/59 100 11/26/16 11:00 62 11/26/16 10:00 68 11/26/16 09:00 84 11/26/16 08:00 96 Nasal Cannula 2.00 11/26/16 08:00 69 11/26/16 08:00 Nasal Cannula 2.00 11/26/16 08:00 97.8 80 18 116/63 96 11/26/16 07:00 74 11/26/16 06:00 72 11/26/16 05:00 70 11/26/16 04:40 Nasal Cannula 2.00 11/26/16 04:40 98.6 85 18 108/69 98 11/26/16 04:00 66 11/26/16 03:00 70 11/26/16 02:51 98 Nasal Cannula 2.00 11/26/16 02:00 72 11/26/16 01:00 72 11/26/16 00:00 98.5 71 18 134/60 98 11/26/16 00:00 Nasal Cannula 2.00 11/26/16 00:00 74 11/25/16 23:00 74 11/25/16 22:00 86 11/25/16 21:00 66 11/25/16 20:10 Nasal Cannula 2.00 11/25/16 20:10 98.5 66 18 129/63 98 11/25/16 20:00 60 11/25/16 19:00 66 11/25/16 18:00 66 -: 11/23/16 0649 11/26/16 0552 Physical Exam General Appearance: Well Developed Neck Neck Exam: Neck Supple Pulmonary Resp Exam: Decreased Bases Cardiology CV Exam: Irregular Gastrointestinal/Abdomen GI Exam: Soft, Bowel Sounds Present Extremeties Extremities Exam: No Edema Assessment/Plan Problem List: (1) JULIANE (acute kidney injury) Plan: Pleural effusion drained Cr declining to 1.14 K normal She has mechanical heart disease and this needs to be corrected diuretics should be used cautiously US kidney CKD RT Renal cyst stable await final disposition as leaking fluid around rt CT (2) CHF (congestive heart failure) Plan: Patient has diastolic dysfunction and also has recurrent pleural effusion with valvular heart disease (3) Acute on chronic diastolic CHF (congestive heart failure) Plan: Valvular heart disease (4) Recurrent right pleural effusion Plan: follow up pulmonary Tammie Suggs MD Nov 26, 2016 17:59
--- NOTE | 2016-11-26 19:09 | HHI.PR ---
Subjective Remarks 76 YOWF with Recurrent pleural effusion had Right pleurex cathetor Mild weeping from Pleurex cathetor site Had Plurex drained again [id number] cc fluid removed Objective Vital Signs Vital Signs Date Time Temp Pulse Resp B/P Pulse Ox O2 Delivery O2 Flow Rate FiO2 11/26/16 18:00 68 11/26/16 17:00 58 11/26/16 16:00 Nasal Cannula 2.00 11/26/16 16:00 69 11/26/16 16:00 98.6 69 18 130/62 97 11/26/16 15:00 64 11/26/16 14:00 68 11/26/16 13:00 62 11/26/16 12:17 16 11/26/16 12:00 Nasal Cannula 2.00 11/26/16 12:00 64 11/26/16 12:00 98.5 68 16 134/59 100 11/26/16 11:00 62 11/26/16 10:00 68 11/26/16 09:00 84 11/26/16 08:00 96 Nasal Cannula 2.00 11/26/16 08:00 69 11/26/16 08:00 Nasal Cannula 2.00 11/26/16 08:00 97.8 80 18 116/63 96 11/26/16 07:00 74 11/26/16 06:00 72 11/26/16 05:00 70 11/26/16 04:40 Nasal Cannula 2.00 11/26/16 04:40 98.6 85 18 108/69 98 11/26/16 04:00 66 11/26/16 03:00 70 11/26/16 02:51 98 Nasal Cannula 2.00 11/26/16 02:00 72 11/26/16 01:00 72 11/26/16 00:00 98.5 71 18 134/60 98 11/26/16 00:00 Nasal Cannula 2.00 11/26/16 00:00 74 11/25/16 23:00 74 11/25/16 22:00 86 11/25/16 21:00 66 11/25/16 20:10 Nasal Cannula 2.00 11/25/16 20:10 98.5 66 18 129/63 98 11/25/16 20:00 60 I/O 6/29/17 6/2911/25/16 11/26/16 11/26/16 11/26/16 07:00 15:00 23:00 07:00 15:00 23:00 Intake Total 480 ml 480 ml 480 ml 820 ml Output Total 1375 ml 1550 ml 1150 ml Balance -895 ml -1070 ml -670 ml 820 ml Intake Oral 480 ml 480 ml 480 ml 820 ml Output Urine Total 1375 ml 650 ml 1150 ml Drainage Total 900 ml # Voids 3 # Bowel Movements 1 0 Result Diagram: 11/23/16 0649 11/26/16 0552 A/P Assessment and Plan Recurrent Pleural effusion S/P Pleurex cathetor placement CAD COPD Anxiety CKD PLAN: Pleurex cathetor, will drain daily Aerosol nebs Supplement 02 monitor renal Functions. Pain controll Calixto Hall MD Nov 26, 2016 19:09
[2016-11-26] MEDS: ATORVASTATIN 80 MG TAB PO SCH (20:35)
[2016-11-26] MEDS: HYDROmorphone HCL PF 1 MG/ML VIAL IV PUSH SCH (20:37)
[2016-11-26] MEDS: INSULIN DETEMIR 100 UNITS/ML VIAL SQ SCH (20:46)
[2016-11-26] MEDS: valACYclovir HCL 500 MG TAB PO SCH (21:13)
[2016-11-26] MEDS: traZODone HCL 50 MG TAB PO SCH (21:14)
[2016-11-27] VITALS (14 sets, daily range): BP systolic 112–127; BP diastolic 58–71; PULSE 54–79; RESP 18–20; TEMP 97.5–98.3; O2SAT 97–100
[2016-11-27] MEDS: DILTIAZEM HCL 90 MG TAB PO SCH ×4 (00:19→18:09)
[2016-11-27 05:03] LABS: BICARBONATE 38.9 MEQ/L (21.0-32.0); POTASSIUM 3.8 MEQ/L (3.5-5.1)
[2016-11-27] MEDS: hydrALAZINE HCL 25 MG TAB PO SCH ×3 (05:38→21:35)
[2016-11-27] MEDS: LEVOTHYROXINE SODIUM 150 MCG TAB PO SCH (05:38)
[2016-11-27] MEDS: INSULIN ASPART SUPPLEMENTAL SCALE SQ SCH ×4 (06:29→21:00)
[2016-11-27] MEDS: SODIUM CHLORIDE 0.9% FLUSH 10 ML FLUSH IV FLUSH SCH ×2 (09:00→20:17)
[2016-11-27] MEDS: DULoxetine HCl DR 60 MG CAP PO SCH (09:06)
[2016-11-27] MEDS: PANTOPRAZOLE SOD 40 MG DELAYED RELEASE TAB PO SCH (09:06)
[2016-11-27] MEDS: METOPROLOL TARTRATE 25 MG TAB PO SCH ×2 (09:06→20:18)
[2016-11-27] MEDS: HEPARIN SODIUM - SQ 10,000 UNITS/ML VIAL SQ SCH ×2 (09:06→20:18)
[2016-11-27] MEDS: BUMETANIDE 1 MG TAB PO SCH (09:06)
[2016-11-27] MEDS: HYDROmorphone HCL PF 1 MG/ML VIAL IV PUSH SCH ×2 (09:07→20:17)
--- NOTE | 2016-11-27 13:20 | HHI.PR ---
Subjective Remarks drained about 300 cc bid-of pleural scheduled - no pain - much better po appetite 100% up and ambulating around hallway - comfortably at a slow pace Objective Vitals Vital Signs Date Time Temp Pulse Resp B/P Pulse Ox O2 Delivery O2 Flow Rate FiO2 11/27/16 12:18 70 11/27/16 12:18 97.8 70 18 126/71 100 11/27/16 12:18 100 Nasal Cannula 2.00 11/27/16 10:18 18 11/27/16 08:23 Nasal Cannula 2.00 11/27/16 08:23 97.5 74 18 127/71 100 11/27/16 08:23 66 11/27/16 06:00 68 11/27/16 05:00 73 11/27/16 04:00 Nasal Cannula 3.00 11/27/16 04:00 98.3 69 18 112/60 100 11/27/16 04:00 69 11/27/16 03:00 73 11/27/16 02:00 65 11/27/16 01:00 60 11/27/16 00:00 Nasal Cannula 3.00 11/27/16 00:00 61 11/27/16 00:00 98.1 61 18 113/58 98 11/26/16 23:00 62 11/26/16 22:00 59 11/26/16 21:32 Nasal Cannula 11/26/16 21:00 58 11/26/16 20:00 Nasal Cannula 3.00 11/26/16 20:00 64 11/26/16 20:00 98.4 64 18 136/74 96 11/26/16 18:00 68 11/26/16 17:00 58 11/26/16 16:00 Nasal Cannula 2.00 11/26/16 16:00 69 11/26/16 16:00 98.6 69 18 130/62 97 11/26/16 15:00 64 11/26/16 14:00 68 I/O 11/26/16 11/26/16 11/26/16 11/27/16 11/27/16 11/27/16 07:00 15:00 23:00 07:00 15:00 23:00 Intake Total 480 ml 820 ml 900 ml Output Total 1150 ml 1300 ml Balance -670 ml 820 ml -400 ml Intake Oral 480 ml 820 ml 480 ml IV Total 420 ml Output Urine Total 1150 ml 900 ml Drainage Total 400 ml # Voids 3 # Bowel Movements 0 0 Result Diagram: 11/23/16 0649 11/27/16 0406 Objective Remarks awake and alert, no acute distress decreased breath sounds and decreased vocal fremiti right base to mid, Spira catheter in place right chest wall irregular rhythm, systolic murmur right sternal border abdomen soft, nontender extremities no edema neuro exam- non focal Procedures chest tube-pig tail tunnelled catheter placement A/P Assessment and Plan -Recurrent pleural effusion- requiring repeated thoracentesis- rapidly accumulating - hold diuretics for now due to JULIANE - Pulmonary ff - Pigtail catheter placed - continue draining 2x a day - seems to be working -IR ff closely along with us -prn pain meds - will give IV Dilaudid during draining - may be pain meds can make her tolerate more draining - restarted Bumex at 1 mg daily (at home was on tid) - creatinine stabilizing - 11/26- ff BMP Atrial fibrillation chronic- rate controlled HYpertension Mitral regurgitation diastolic heart Failure - on CCB and BB - on OAC- - restart soon Acute kidney injury- resolved Hypokalemia- resolved - on po supplement - Mg normal DM type 2- -insulin requiring -good readings -poor po- supplements with ensure discuss with her that she is going into multiorgan failure- few days ago - Palliative care consult- met with them - DNR continue to monitor and arrange for regimen -draiing and meds- for DC planning Kortney Cee MD Nov 27, 2016 13:20
--- NOTE | 2016-11-27 13:22 | HHI.NPPN ---
Subjective History of Present Illness 76 Year old with ARF , on diuretics, CHF Additional Remarks No acute complaints, no chest tube leakage noted Objective Data Data 11/26/16 11/27/16 19:00 07:00 Intake Total 820 ml 900 ml Output Total 1300 ml Balance 820 ml -400 ml Intake Oral 820 ml 480 ml IV Total 420 ml Output Urine Total 900 ml Drainage Total 400 ml # Voids 3 # Bowel Movements 0 0 Vital Signs Date Time Temp Pulse Resp B/P Pulse Ox O2 Delivery O2 Flow Rate FiO2 11/27/16 12:18 70 11/27/16 12:18 97.8 70 18 126/71 100 11/27/16 12:18 100 Nasal Cannula 2.00 11/27/16 10:18 18 11/27/16 08:23 Nasal Cannula 2.00 11/27/16 08:23 97.5 74 18 127/71 100 11/27/16 08:23 66 11/27/16 06:00 68 11/27/16 05:00 73 11/27/16 04:00 Nasal Cannula 3.00 11/27/16 04:00 98.3 69 18 112/60 100 11/27/16 04:00 69 11/27/16 03:00 73 11/27/16 02:00 65 11/27/16 01:00 60 11/27/16 00:00 Nasal Cannula 3.00 11/27/16 00:00 61 11/27/16 00:00 98.1 61 18 113/58 98 11/26/16 23:00 62 11/26/16 22:00 59 11/26/16 21:32 Nasal Cannula 11/26/16 21:00 58 11/26/16 20:00 Nasal Cannula 3.00 11/26/16 20:00 64 11/26/16 20:00 98.4 64 18 136/74 96 11/26/16 18:00 68 11/26/16 17:00 58 11/26/16 16:00 Nasal Cannula 2.00 11/26/16 16:00 69 11/26/16 16:00 98.6 69 18 130/62 97 11/26/16 15:00 64 11/26/16 14:00 68 -: 11/23/16 0649 11/27/16 0406 Physical Exam General Appearance: Well Developed Neck Neck Exam: Neck Supple Pulmonary Resp Exam: Decreased Bases Cardiology CV Exam: Irregular Gastrointestinal/Abdomen GI Exam: Soft, Bowel Sounds Present Extremeties Extremities Exam: No Edema Assessment/Plan Problem List: (1) JULIANE (acute kidney injury) Plan: Pleural effusion drained Creatinine continues to improve K normal now She has mechanical heart disease and this needs to be corrected diuretics should be used cautiously Continue with bumex 1mg PO daily US kidney CKD RT Renal cyst stable Continue to follow chest tube with pulmonary. Renal function has stabilized (2) CHF (congestive heart failure) Plan: Patient has diastolic dysfunction and also has recurrent pleural effusion with valvular heart disease Continue PO bumex 1mg daily (3) Acute on chronic diastolic CHF (congestive heart failure) Plan: Valvular heart disease (4) Recurrent right pleural effusion Plan: follow up pulmonary Varun Lozano MD Nov 27, 2016 13:21
[2016-11-27] MEDS: POTASSIUM CHLORIDE 20 MEQ CONTROLLED RELEASE TAB PO SCH (13:38)
--- NOTE | 2016-11-27 15:29 | HHI.PR ---
Subjective Remarks 76 YOWF with Recurrent pleural effusion had Right pleurex cathetor Mild weeping from Pleurex cathetor site Had Plurex drained twice yesterday and again this AM No oozing from Cathetor site Objective Vital Signs Vital Signs Date Time Temp Pulse Resp B/P Pulse Ox O2 Delivery O2 Flow Rate FiO2 11/27/16 12:18 70 11/27/16 12:18 97.8 70 18 126/71 100 11/27/16 12:18 100 Nasal Cannula 2.00 11/27/16 10:18 18 11/27/16 08:23 Nasal Cannula 2.00 11/27/16 08:23 97.5 74 18 127/71 100 11/27/16 08:23 66 11/27/16 06:00 68 11/27/16 05:00 73 11/27/16 04:00 Nasal Cannula 3.00 11/27/16 04:00 98.3 69 18 112/60 100 11/27/16 04:00 69 11/27/16 03:00 73 11/27/16 02:00 65 11/27/16 01:00 60 11/27/16 00:00 Nasal Cannula 3.00 11/27/16 00:00 61 11/27/16 00:00 98.1 61 18 113/58 98 11/26/16 23:00 62 11/26/16 22:00 59 11/26/16 21:32 Nasal Cannula 11/26/16 21:00 58 11/26/16 20:00 Nasal Cannula 3.00 11/26/16 20:00 64 11/26/16 20:00 98.4 64 18 136/74 96 11/26/16 18:00 68 11/26/16 17:00 58 11/26/16 16:00 Nasal Cannula 2.00 11/26/16 16:00 69 11/26/16 16:00 98.6 69 18 130/62 97 I/O 11/26/16 11/26/16 11/26/16 11/27/16 11/27/16 11/27/16 07:00 15:00 23:00 07:00 15:00 23:00 Intake Total 480 ml 820 ml 900 ml Output Total 1150 ml 1300 ml Balance -670 ml 820 ml -400 ml Intake Oral 480 ml 820 ml 480 ml IV Total 420 ml Output Urine Total 1150 ml 900 ml Drainage Total 400 ml # Voids 3 # Bowel Movements 0 0 Result Diagram: 11/23/16 0649 11/27/16 0406 A/P Assessment and Plan Recurrent Pleural effusion S/P Pleurex cathetor placement CAD COPD Anxiety CKD PLAN: Pleurex cathetor, will drain daily and prn Aerosol nebs Supplement 02 monitor renal Functions. Pain controll Calixto Hall MD Nov 27, 2016 15:29
[2016-11-27] MEDS: oxyCODONE/ACETAMINOPHEN 5 MG/325 MG TAB PO PRN (16:29)
[2016-11-27] MEDS: valACYclovir HCL 500 MG TAB PO SCH (20:18)
[2016-11-27] MEDS: ATORVASTATIN 80 MG TAB PO SCH (20:18)
[2016-11-27] MEDS: traZODone HCL 50 MG TAB PO SCH (20:18)
[2016-11-27] MEDS: INSULIN DETEMIR 100 UNITS/ML VIAL SQ SCH (20:18)
[2016-11-28] VITALS (16 sets, daily range): BP systolic 105–126; BP diastolic 53–71; PULSE 56–79; RESP 18–20; TEMP 97.6–98.5; O2SAT 96–100
[2016-11-28] MEDS: DILTIAZEM HCL 90 MG TAB PO SCH ×4 (00:45→17:31)
[2016-11-28] MEDS: LEVOTHYROXINE SODIUM 150 MCG TAB PO SCH (05:03)
[2016-11-28] MEDS: hydrALAZINE HCL 25 MG TAB PO SCH ×3 (05:04→22:00)
[2016-11-28 05:42] LABS: AUTOMATED NEUTROPHIL # 4.5 TH/MM3 (1.8-7.7); BASOPHIL # 0.1 TH/MM3 (0-0.2); BASOPHIL % 1.5 % (0.0-2.0); EOSINOPHIL # 0.2 TH/MM3 (0-0.4); EOSINOPHIL % 2.9 % (0.0-4.0); HEMATOCRIT 26.4 % (35.0-46.0); HEMO FLAGS DIFF FINAL; LYMPH % 15.7 % (9.0-44.0); MEAN CELL VOLUME 83.4 FL (80.0-100.0); MEAN CORPUSCULAR HEMOGLOBIN 27.6 PG (27.0-34.0); MEAN CORPUSCULAR HGB CONC 33.1 % (32.0-36.0); MONO % 7.9 % (0.0-8.0); PLATELET COUNT 393 TH/MM3 (150-450); RED BLOOD COUNT 3.16 MIL/MM3 (4.00-5.30); RED CELL DISTRIBUTION WIDTH 16.9 % (11.6-17.2); WHITE BLOOD COUNT 6.3 TH/MM3 (4.0-11.0)
[2016-11-28] MEDS: INSULIN ASPART SUPPLEMENTAL SCALE SQ SCH ×4 (05:51→20:23)
[2016-11-28 06:16] LABS: BICARBONATE 35.3 MEQ/L (21.0-32.0); POTASSIUM 4.4 MEQ/L (3.5-5.1)
[2016-11-28] MEDS: POTASSIUM CHLORIDE 20 MEQ CONTROLLED RELEASE TAB PO SCH (08:33)
[2016-11-28] MEDS: PANTOPRAZOLE SOD 40 MG DELAYED RELEASE TAB PO SCH (08:33)
[2016-11-28] MEDS: METOPROLOL TARTRATE 25 MG TAB PO SCH ×2 (08:33→20:19)
[2016-11-28] MEDS: DULoxetine HCl DR 60 MG CAP PO SCH (08:33)
[2016-11-28] MEDS: BUMETANIDE 1 MG TAB PO SCH (08:33)
[2016-11-28] MEDS: SODIUM CHLORIDE 0.9% FLUSH 10 ML FLUSH IV FLUSH SCH ×2 (08:34→20:21)
[2016-11-28] MEDS: HEPARIN SODIUM - SQ 10,000 UNITS/ML VIAL SQ SCH (08:34)
[2016-11-28] MEDS: oxyCODONE/ACETAMINOPHEN 5 MG/325 MG TAB PO PRN ×2 (08:34→17:31)
[2016-11-28] MEDS: HYDROmorphone HCL PF 1 MG/ML VIAL IV PUSH SCH ×2 (09:47→20:21)
--- NOTE | 2016-11-28 14:30 | HHI.PR ---
Subjective Remarks po 100% getting stronger, very interactive tolerating draining chest tube daily so far- about 300cc Objective Vitals Vital Signs Date Time Temp Pulse Resp B/P Pulse Ox O2 Delivery O2 Flow Rate FiO2 11/28/16 13:29 Nasal Cannula 2.00 11/28/16 12:05 100 Nasal Cannula 2.00 11/28/16 12:05 98.5 72 18 121/63 100 11/28/16 12:05 70 11/28/16 10:26 18 11/28/16 09:50 18 11/28/16 08:13 76 11/28/16 08:13 99 Nasal Cannula 2.00 11/28/16 08:13 98.4 76 18 120/71 99 11/28/16 06:00 75 11/28/16 05:00 72 11/28/16 04:00 98.4 79 18 105/53 98 11/28/16 04:00 Nasal Cannula 2.00 11/28/16 04:00 79 11/28/16 03:00 67 11/28/16 02:00 70 11/28/16 01:13 96 Nasal Cannula 2.00 11/28/16 01:00 65 11/28/16 00:00 98.3 71 18 110/63 96 11/28/16 00:00 Nasal Cannula 2.00 11/28/16 00:00 71 11/27/16 23:00 67 11/27/16 22:00 54 11/27/16 21:00 63 11/27/16 20:00 79 11/27/16 20:00 98.2 73 18 113/67 97 11/27/16 20:00 Nasal Cannula 2.00 11/27/16 16:20 70 11/27/16 16:20 98 Nasal Cannula 2.00 11/27/16 16:20 97.6 64 20 115/64 98 I/O 11/27/16 11/27/16 11/27/16 11/28/16 11/28/16 11/28/16 07:00 15:00 23:00 07:00 15:00 23:00 Intake Total 900 ml 960 ml 490 ml Output Total 1300 ml 1350 ml 1000 ml Balance -400 ml -390 ml -510 ml Intake Oral 480 ml 960 ml 480 ml IV Total 420 ml 10 ml Output Urine Total 900 ml 1350 ml 800 ml Drainage Total 400 ml 200 ml # Bowel Movements 0 2 0 Result Diagram: 11/28/168 11/28/16457 Objective Remarks awake and alert, no acute distress decreased breath sounds and decreased vocal fremiti right base to mid, Spira catheter in place right chest wall irregular rhythm, systolic murmur right sternal border abdomen soft, nontender extremities no edema neuro exam- non focal Procedures chest tube-pig tail tunnelled catheter placement A/P Assessment and Plan -Recurrent pleural effusion- requiring repeated thoracentesis- rapidly accumulating - hold diuretics for now due to JULIANE - Pulmonary ff - Pigtail catheter placed - continue draining 2x a day - seems to be working -IR ff closely along with us -prn pain meds - will give IV Dilaudid during draining - may be pain meds can make her tolerate more draining - restarted Bumex at 1 mg daily 11/26 - creatinine stabilizing- Atrial fibrillation chronic- rate controlled HYpertension Mitral regurgitation diastolic heart Failure - on CCB and BB - on OAC- - restart Xarelto Acute kidney injury- resolved Hypokalemia- resolved - on po supplement - Mg normal - on KCL po daily DM type 2- -insulin requiring -good readings -poor po- supplements with ensure discuss with her that she is going into multiorgan failure- few days ago - Palliative care consult- met with them - DNR continue to monitor and arrange for regimen -draiing and meds- for DC planning- hopefully tomorrow Kortney Cee MD Nov 28, 2016 14:30 accumulating - hold diuretics for now due to JULIANE - Pulmonary ff - Pigtail catheter placed - continue draining 2x a day - seems to be working -IR ff closely along with us -prn pain meds - will give IV Dilaudid during draining - may be pain meds can make her tolerate more draining - restarted Bumex at 1 mg daily 11/26 - creatinine stabilizing- Atrial fibrillation chronic- rate controlled HYpertension Mitral regurgitation diastolic heart Failure - on CCB and BB - on OAC- - restart Xarelto Acute kidney injury- resolved Hypokalemia- resolved - on po supplement - Mg normal - on KCL po daily DM type 2- -insulin requiring -good readings -poor po- supplements with ensure discuss with her that she is going into multiorgan failure- few days ago - Palliative care consult- met with them - DNR continue to monitor and arrange for regimen -draiing and meds- for DC planning- hopefully tomorrow Kortney Cee MD Nov 28, 2016 14:30
--- NOTE | 2016-11-28 15:10 | HHI.NPPN ---
Subjective History of Present Illness 76 Year old with ARF , on diuretics, CHF Additional Remarks No acute complaints, no chest tube leakage noted Objective Data Data 11/27/16 11/28/16 19:00 07:00 Intake Total 960 ml 490 ml Output Total 1350 ml 1000 ml Balance -390 ml -510 ml Intake Oral 960 ml 480 ml IV Total 10 ml Output Urine Total 1350 ml 800 ml Drainage Total 200 ml # Bowel Movements 2 0 Vital Signs Date Time Temp Pulse Resp B/P Pulse Ox O2 Delivery O2 Flow Rate FiO2 11/28/16 13:29 Nasal Cannula 2.00 11/28/16 12:05 100 Nasal Cannula 2.00 11/28/16 12:05 98.5 72 18 121/63 100 11/28/16 12:05 70 11/28/16 10:26 18 11/28/16 09:50 18 11/28/16 08:13 76 11/28/16 08:13 99 Nasal Cannula 2.00 11/28/16 08:13 98.4 76 18 120/71 99 11/28/16 06:00 75 11/28/16 05:00 72 11/28/16 04:00 98.4 79 18 105/53 98 11/28/16 04:00 Nasal Cannula 2.00 11/28/16 04:00 79 11/28/16 03:00 67 11/28/16 02:00 70 11/28/16 01:13 96 Nasal Cannula 2.00 11/28/16 01:00 65 11/28/16 00:00 98.3 71 18 110/63 96 11/28/16 00:00 Nasal Cannula 2.00 11/28/16 00:00 71 11/27/16 23:00 67 11/27/16 22:00 54 11/27/16 21:00 63 11/27/16 20:00 79 11/27/16 20:00 98.2 73 18 113/67 97 11/27/16 20:00 Nasal Cannula 2.00 11/27/16 16:20 70 11/27/16 16:20 98 Nasal Cannula 2.00 11/27/16 16:20 97.6 64 20 115/64 98 -: 11/28/16 0458 11/28/16 0458 Physical Exam General Appearance: Well Developed Neck Neck Exam: Neck Supple Pulmonary Resp Exam: Decreased Bases Cardiology CV Exam: Irregular Gastrointestinal/Abdomen GI Exam: Soft, Bowel Sounds Present Extremeties Extremities Exam: No Edema Assessment/Plan Problem List: (1) JULIANE (acute kidney injury) Plan: Pleural effusion drained Creatinine continues to improve K normal now She has mechanical heart disease and this needs to be corrected diuretics should be used cautiously Continue with bumex 1mg PO daily US kidney CKD RT Renal cyst stable Continue to follow chest tube with pulmonary. Renal function has stabilized. Will sign off for now, can contact Dr. Suggs this week if necessary. (2) CHF (congestive heart failure) Plan: Patient has diastolic dysfunction and also has recurrent pleural effusion with valvular heart disease Continue PO bumex 1mg daily (3) Acute on chronic diastolic CHF (congestive heart failure) Plan: Valvular heart disease (4) Recurrent right pleural effusion Plan: follow up pulmonary Varun Lozano MD Nov 28, 2016 15:09
--- NOTE | 2016-11-28 15:45 | HHI.PR ---
Subjective Remarks 76 YOWF with Recurrent pleural effusion had Right pleurex cathetor Had Plurex drained twice yesterday and again this AM No oozing from Cathetor site breathing better Objective Vital Signs Vital Signs Date Time Temp Pulse Resp B/P Pulse Ox O2 Delivery O2 Flow Rate FiO2 11/28/16 13:29 Nasal Cannula 2.00 11/28/16 12:05 100 Nasal Cannula 2.00 11/28/16 12:05 98.5 72 18 121/63 100 11/28/16 12:05 70 11/28/16 10:26 18 11/28/16 09:50 18 11/28/16 08:13 76 11/28/16 08:13 99 Nasal Cannula 2.00 11/28/16 08:13 98.4 76 18 120/71 99 11/28/16 06:00 75 11/28/16 05:00 72 11/28/16 04:00 98.4 79 18 105/53 98 11/28/16 04:00 Nasal Cannula 2.00 11/28/16 04:00 79 11/28/16 03:00 67 11/28/16 02:00 70 11/28/16 01:13 96 Nasal Cannula 2.00 11/28/16 01:00 65 11/28/16 00:00 98.3 71 18 110/63 96 11/28/16 00:00 Nasal Cannula 2.00 11/28/16 00:00 71 11/27/16 23:00 67 11/27/16 22:00 54 11/27/16 21:00 63 11/27/16 20:00 79 11/27/16 20:00 98.2 73 18 113/67 97 11/27/16 20:00 Nasal Cannula 2.00 11/27/16 16:20 70 11/27/16 16:20 98 Nasal Cannula 2.00 11/27/16 16:20 97.6 64 20 115/64 98 I/O 11/27/16 11/27/16 11/27/16 11/28/16 11/28/16 11/28/16 07:00 15:00 23:00 07:00 15:00 23:00 Intake Total 900 ml 960 ml 490 ml Output Total 1300 ml 1350 ml 1000 ml Balance -400 ml -390 ml -510 ml Intake Oral 480 ml 960 ml 480 ml IV Total 420 ml 10 ml Output Urine Total 900 ml 1350 ml 800 ml Drainage Total 400 ml 200 ml # Bowel Movements 0 2 0 Result Diagram: 11/28/168 11/28/16457 A/P Assessment and Plan Recurrent Pleural effusion S/P Pleurex cathetor placement CAD COPD Anxiety CKD PLAN: Pleurex cathetor, will drain daily and prn Aerosol nebs Supplement 02 monitor renal Functions. Pain controll Dc plans underway. Calixto Hall MD Nov 28, 2016 15:45
[2016-11-28] MEDS: ATORVASTATIN 80 MG TAB PO SCH (20:20)
[2016-11-28] MEDS: valACYclovir HCL 500 MG TAB PO SCH (20:20)
[2016-11-28] MEDS: traZODone HCL 50 MG TAB PO SCH (20:20)
[2016-11-28] MEDS: INSULIN DETEMIR 100 UNITS/ML VIAL SQ SCH (20:23)
[2016-11-29] VITALS (27 sets, daily range): BP systolic 104–128; BP diastolic 50–66; PULSE 53–88; RESP 18–20; TEMP 97.8–98.4; O2SAT 95–98
[2016-11-29] MEDS: DILTIAZEM HCL 90 MG TAB PO SCH ×4 (01:04→18:00)
[2016-11-29] MEDS: oxyCODONE/ACETAMINOPHEN 5 MG/325 MG TAB PO PRN (03:57)
[2016-11-29] MEDS: LEVOTHYROXINE SODIUM 150 MCG TAB PO SCH (05:03)
[2016-11-29] MEDS: hydrALAZINE HCL 25 MG TAB PO SCH ×3 (05:03→21:45)
[2016-11-29] MEDS: INSULIN ASPART SUPPLEMENTAL SCALE SQ SCH ×4 (06:32→21:00)
--- NOTE | 2016-11-29 07:36 | HHI.PR ---
Subjective Remarks doing great, no leakage- pleuyral cath still draining pain controlled looking forward to going home- states has Home health care at home- company will ff up with Dr. Gardner as OP Objective Vitals Vital Signs Date Time Temp Pulse Resp B/P Pulse Ox O2 Delivery O2 Flow Rate FiO2 11/29/16 06:00 70 11/29/16 05:00 74 11/29/16 04:00 Nasal Cannula 2.00 11/29/16 04:00 79 11/29/16 04:00 98.1 79 18 112/66 96 11/29/16 03:00 74 11/29/16 02:00 71 11/29/16 01:00 69 11/29/16 00:00 98.2 62 18 116/64 96 11/29/16 00:00 Nasal Cannula 2.00 11/29/16 00:00 62 11/28/16 23:00 67 11/28/16 22:00 56 11/28/16 21:11 98 Nasal Cannula 2.00 11/28/16 21:00 65 11/28/16 20:00 98.0 64 20 124/65 97 11/28/16 20:00 64 11/28/16 20:00 Nasal Cannula 2.00 11/28/16 18:45 18 11/28/16 16:25 97.6 70 18 126/65 100 11/28/16 16:25 100 Nasal Cannula 2.00 11/28/16 16:25 66 11/28/16 13:29 Nasal Cannula 2.00 11/28/16 12:05 100 Nasal Cannula 2.00 11/28/16 12:05 98.5 72 18 121/63 100 11/28/16 12:05 70 11/28/16 10:26 18 11/28/16 08:13 76 11/28/16 08:13 99 Nasal Cannula 2.00 11/28/16 08:13 98.4 76 18 120/71 99 I/O 11/28/16 11/28/16 11/28/16 11/29/16 11/29/16 11/29/16 07:00 15:00 23:00 07:00 15:00 23:00 Intake Total 490 ml 960 ml 490 ml Output Total 1000 ml 450 ml 880 ml Balance -510 ml 510 ml -390 ml Intake Oral 480 ml 960 ml 480 ml IV Total 10 ml 10 ml Output Urine Total 800 ml 700 ml Drainage Total 200 ml 450 ml 180 ml # Voids 4 # Bowel Movements 0 1 0 Result Diagram: 11/28/1645711/28/16457 Objective Remarks awake and alert, no acute distress lungs clear, no rales or wheezes, Spira catheter in place right chest wall irregular rhythm, systolic murmur right sternal border abdomen soft, nontender extremities no edema neuro exam- non focal Procedures chest tube-pig tail tunnelled catheter placement A/P Assessment and Plan -Recurrent pleural effusion- requiring repeated thoracentesis- - Pulmonary ff - Pigtail catheter placed- draining clear light yellow fluid - continue draining 2x a day - seems to be working- regimen working -prn pain meds - will give IV Dilaudid during draining - may be pain meds can make her tolerate more draining - restarted Bumex at 1 mg daily 11/26 - creatinine stabilizing- Atrial fibrillation chronic- rate controlled HYpertension Mitral regurgitation diastolic heart Failure - on CCB and BB - bumex 1 mg daily - on OAC- on Xarelto restarted 20 mg daily - ff up with Dr. 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 Love as OP CM- assist with home health care nursing- pleural catheter care Kortney Cee MD Nov 29, 2016 07:36
[2016-11-29] MEDS ORDERED: BUME1TAB PO (07:50)
[2016-11-29] MEDS ORDERED: XARE10TA PO (07:50)
[2016-11-29] MEDS ORDERED: LEVEMIR SQ (07:50)
[2016-11-29] MEDS ORDERED: DULO1CAP3 PO (07:50)
[2016-11-29] MEDS ORDERED: HYDR-3534 PO (07:51)
--- NOTE | 2016-11-29 07:52 | HHI.DS ---
Discharge Summary Admission Date Nov 22, 2016 at 16:35 Discharge Date: Nov 30, 2016 Admitting Diagnosis Generalized weakness; JULIANE; Recurrent R pleural effusion (1) Pleural effusion ICD Code: J90 Diagnosis: Principal (2) Atrial fibrillation ICD Code: I48.91 Diagnosis: Principal (3) JULIANE (acute kidney injury) ICD Code: N17.9 Diagnosis: Secondary Procedures chest tube-pig tail tunnelled catheter placement Brief History - From Admission 76-year-old female with a past medical history of recurrent pleural effusion, CAD, hypothyroidism, diastolic CHF with MRShira fib off anticoagulation, HTN, depression, HLD, DM, COPD on O2, GERD who is presenting with generalized weakness and fatigue. The patient states that since Tuesday she has been having worsening weakness, fatigue, no energy, dyspnea on exertion. The patient denies any recent medication changes, has been compliant with diuretics. She reports good urine output. She denies any change in her lower extremity edema. She states her mouth is extremely dry and she is thirsty. She does state that she's been having more palpitations lately. She denies any chest pain, recent illness, fever, chills, cough. She states that she saw her credit correspondence clerk, Dr. Brunner, one week ago. She states that she had a repeat chest x-ray done which was only a week after previous thoracentesis and states that her lung had "fill back up". She states that her credit correspondence clerk had ordered for her to have a permanent drain put in so she would not have to have recurrent thoracentesis, however that has not yet been performed. Patient states she is on home oxygen as needed. Her oxygen saturation is currently 86 87% on room air. She is ambulatory, but complains of fatigue and unsteadiness on her feet. CBC/BMP: 11/28/16 0458 11/28/16 0458 Significant Findings Laboratory Tests Test 11/27/16 11/28/16 04:06 04:58 Chloride Level 96 MEQ/L (98-107) Carbon Dioxide Level 38.9 MEQ/L 35.3 MEQ/L (21.0-32.0) (21.0-32.0) Anion Gap 2 MEQ/L (5-15) 4 MEQ/L (5-15) Blood Urea Nitrogen 55 MG/DL (7-18) 46 MG/DL (7-18) Creatinine 1.03 MG/DL (0.50-1.00) Estimat Glomerular Filtration 52 ML/MIN (>89) 58 ML/MIN (>89) Rate Random Glucose 187 MG/DL 155 MG/DL (74-106) (74-106) Red Blood Count 3.16 MIL/MM3 (4.00-5.30) Hemoglobin 8.7 GM/DL (11.6-15.3) Hematocrit 26.4 % (35.0-46.0) Neutrophils (%) (Auto) 72.0 % (16.0-70.0) Calcium Level 8.2 MG/DL (8.5-10.1) PE at Discharge awake and alert, no acute distress lungs clear, no rales or wheezes, Spira catheter in place right chest wall irregular rhythm, systolic murmur right sternal border abdomen soft, nontender extremities no edema neuro exam- non focal Pt update on day of discharge afebirle pain controlled up and ambulating comfortable looking forward to going home d/w with regimen for draining states will ff up with Dr. [facility] Course -Recurrent pleural effusion- requiring repeated thoracentesis- - Pulmonary ff - Pigtail catheter placed- draining clear light yellow fluid - continue draining 2x a day - seems to be working- regimen working -prn pain meds - will give IV Dilaudid during draining - may be pain meds can make her tolerate more draining - restarted Bumex at 1 mg daily 11/26 - creatinine stabilizing- Atrial fibrillation chronic- rate controlled HYpertension Mitral regurgitation diastolic heart Failure - on CCB and BB - bumex 1 mg daily - on OAC- on Xarelto restarted 20 mg daily - ff up with Dr. Cardona as OP- her closing specialist - consider restarting ARB as OP Acute kidney injury- resolved- restarted on bumex 1 mg daily Hypokalemia- resolved - on po supplement - Mg normal - on KCL po daily DM type 2- -insulin requiring -good readings -poor po- supplements with ensure - patient very knowledgeable and adjust her on Insulin regimen - Palliative care- met with them - GAURIR DC home today -11/30 FF up with PCP and Pulmonary Dr. Love as OP CM- assist with home health care nursing- pleural catheter care- they will come today and do some education Pt Condition on Discharge: Stable Discharge Disposition: Disch w/ Home Health Serv Discharge Time: <= 30 minutes Discharge Instructions DIET: Follow Instructions for: Heart Healthy Diet, Diabetic Diet Speech Therapy-Diet Recommends: Regular Activities you can perform: Weight Bearing as Mehnaz Activities to Avoid: Strenuous Activity Follow up Referrals: PCP Follow-up with PCP Pulmonology - 3-5 Days with Abdelrahman Barger MD New Medications: Hydrocodone-Acetaminophen (Lortab) 7.5-325 Mg Tab 1 TAB PO BID prior to draining cath #20 Ref 0 TAB Bumetanide (Bumetanide) 1 Mg Tab 1 MG PO DAILY DIU Days [address] (Duloxetine DR) 60 Mg Capdr 60 MG PO DAILY Depression Control Days 30 CAP Insulin Detemir Inj (Levemir Inj) 1,000 unit/ 10 ML Vial 15 UNITS SQ HS DM Days 30 INJECTION Rivaroxaban (Xarelto) 10 Mg Tab 20 MG PO DAILY AFIB Days 30 Ref 10 TAB Continued Medications: Aspirin (Aspirin Low Strength) 81 Mg Chew 81 MG PO DAILY Days 30 EA Atorvastatin (Atorvastatin) 80 Mg Tab 80 MG PO HS Cholesterol Management #30 Ref 0 TAB Cyanocobalamin Inj (Cyanocobalamin Inj) 1,000 Mcg/Ml Inj 1000 MCG IM EVERY 2 WEEKS #1 Ref 0 VIAL Diltiazem (Diltiazem) 90 Mg Tab 90 MG PO q6 hr Angina #120 Ref 0 TAB Ergocalciferol (Ergocalciferol) 50,000 Unit Cap 58628 UNITS PO Q7D ON MONDAYS Nutritional Supplement #30 Ref 0 CAP Fenofibrate (Fenofibrate) 160 Mg Tab 160 MG PO HS #30 Ref 0 TAB Hydralazine HCl (Hydralazine HCl) 25 Mg Tablet 25 MG PO Q8HR Blood Pressure Management #90 Ref 0 TAB Insulin Aspart Inj (Novolog Inj) 1,000 Unit/10 Ml Vial 2-10 UNITS SQ ACHS Sliding Scale Blood Sugar Management #10 Ref 0 ML Levothyroxine (Levothyroxine) 150 Mcg Tab 150 MCG PO DAILY@0600 Thyroid #30 Ref 0 TAB Metoprolol Tartrate (Metoprolol Tartrate) 25 Mg Tab 25 MG PO Q12HR htn #60 TAB Multiple Vitamins W/ Minerals (Thera M Plus) 1 Tab 1 TAB PO DAILY Days 30 TAB Pantoprazole (Pantoprazole) 40 Mg Tab 40 MG PO DAILY Days 30 TAB Potassium Chloride ER (Klor-Con 10) 10 Meq Tab 10 MEQ PO HS Electrolyte Replacement #60 Ref 0 TAB Rivaroxaban (Xarelto) 20 Mg Tab 20 MG PO DAILY Blood Clot Prevention Ref 0 TAB Trazodone (Trazodone) 50 Mg Tab 50 MG PO HS Days 30 TAB Valacyclovir (Valtrex) 1 Gm Tab 1 GM PO HS Mgmt Viral Infection #30 Ref 0 TAB Discontinued Medications: Alprazolam (Xanax) 0.25 Mg Tab 0.25 MG PO Q8HR PRN anxiety Days 30 TAB Amlodipine (Norvasc) 5 Mg Tab 5 MG PO DAILY htn #30 TAB Bumetanide (Bumetanide) 1 Mg Tab 1 MG PO TID #60 Ref [address] (Dul[address]etine DR) 60 Mg Capdr 120 MG PO DAILY Days 30 CAP Insulin Glargine Inj (Lantus Inj) 100 Unit/Ml Inj 15-17 UNITS SQ HS Losartan (Losartan) 50 Mg Tab 50 MG PO DAILY Blood Pressure Management #30 Ref 0 TAB Nitroglycerin SL (Nitroglycerin SL) 0.4 Mg Subl 0.4 MG SL DIRECTED ONE TABLET UNDER THE TONGUE NEEDED FOR CHEST PAIN, MAY REPEAT EVERY FIVE MINUTES FOR A TOTAL OF 3 DOSES OR CALL 911 IF NO RELIEF PRN CHEST PAIN #100 Ref 0 TAB.SL Kortney Cee MD Nov 29, 2016 07:52
[2016-11-29] MEDS ORDERED: RIVAROXABAN 10 MG TAB PO SCH (09:00)
[2016-11-29] MEDS: SODIUM CHLORIDE 0.9% FLUSH 10 ML FLUSH IV FLUSH SCH ×2 (09:00→21:43)
[2016-11-29] MEDS: DULoxetine HCl DR 60 MG CAP PO SCH (09:00)
[2016-11-29] MEDS: PANTOPRAZOLE SOD 40 MG DELAYED RELEASE TAB PO SCH (09:59)
[2016-11-29] MEDS: RIVAROXABAN 10 MG TAB PO SCH (10:00)
[2016-11-29] MEDS: POTASSIUM CHLORIDE 20 MEQ CONTROLLED RELEASE TAB PO SCH (10:00)
[2016-11-29] MEDS: METOPROLOL TARTRATE 25 MG TAB PO SCH ×2 (10:00→21:45)
[2016-11-29] MEDS: BUMETANIDE 1 MG TAB PO SCH (10:01)
[2016-11-29] MEDS: HYDROmorphone HCL PF 1 MG/ML VIAL IV PUSH SCH ×2 (11:22→21:00)
--- NOTE | 2016-11-29 13:29 | HHI.FF ---
Face to Face Verification Diagnosis: (1) Wound drainage (2) Recurrent left pleural effusion Physical Therapy Order: Evaluate and Treat, Improve ambulation Occupational Therapy Order: Improve ADL Home Health Nursing Order: Medication education-adverse effect Wound care and dressing changes Nursing assessment with vital signs Home Health Aide Order: To Assist In: Bathing and personal care, photographer news and meal prep Lusterer Order: To Evaluate: Living conditions/environment, Support services I have seen patient Lorenza Garcia on 11/29/16. My clinical findings support the need for the requested home health care services because: Ltd mobility - disease progression Patient has SOB Need for psychosocial assistance I certify that my clinical findings support that this patient is homebound because: Hx COPD- exertion dyspnea/weakness Need for psychosocial assistance Kortney Cee MD Nov 29, 2016 13:29
--- NOTE | 2016-11-29 19:51 | HHI.PR ---
Subjective Remarks 76 YOWF with Recurrent pleural effusion had Right pleurex cathetor Had Plurex drained twice yesterday and again this AM No oozing from Cathetor site breathing better Upset that not going home today Objective Vital Signs Vital Signs Date Time Temp Pulse Resp B/P Pulse Ox O2 Delivery O2 Flow Rate FiO2 11/29/16 18:00 76 11/29/16 17:56 96 Nasal Cannula 2.00 11/29/16 17:00 78 11/29/16 16:00 98.1 79 18 110/62 96 11/29/16 16:00 95 Nasal Cannula 2.00 11/29/16 16:00 80 11/29/16 15:00 72 11/29/16 14:00 72 11/29/16 13:00 68 11/29/16 12:00 66 11/29/16 11:55 18 11/29/16 11:11 96 Nasal Cannula 2.00 11/29/16 11:10 98.2 79 18 112/62 96 11/29/16 11:00 60 11/29/16 10:45 95 11/29/16 10:00 66 11/29/16 09:00 68 11/29/16 08:00 79 11/29/16 08:00 94 Nasal Cannula 2.00 11/29/16 08:00 98.1 79 18 110/60 96 11/29/16 07:00 88 11/29/16 06:00 70 11/29/16 05:00 74 11/29/16 04:00 Nasal Cannula 2.00 11/29/16 04:00 79 11/29/16 04:00 98.1 79 18 112/66 96 11/29/16 03:00 74 11/29/16 02:00 71 11/29/16 01:00 69 11/29/16 00:00 98.2 62 18 116/64 96 11/29/16 00:00 Nasal Cannula 2.00 11/29/16 00:00 62 11/28/16 23:00 67 11/28/16 22:00 56 11/28/16 21:11 98 Nasal Cannula 2.00 11/28/16 21:00 65 11/28/16 20:00 98.0 64 20 124/65 97 11/28/16 20:00 64 11/28/16 20:00 Nasal Cannula 2.00 I/O 11/28/16 11/28/16 11/28/16 11/29/16 11/29/16 11/29/16 07:00 15:00 23:00 07:00 15:00 23:00 Intake Total 490 ml 960 ml 490 ml 875 ml Output Total 1000 ml 450 ml 880 ml 1130 ml Balance -510 ml 510 ml -390 ml -255 ml Intake Oral 480 ml 960 ml 480 ml 875 ml IV Total 10 ml 10 ml Output Urine Total 800 ml 700 ml 650 ml Drainage Total 200 ml 450 ml 180 ml 480 ml # Voids 4 # Bowel Movements 0 1 0 Result Diagram: 11/28/16 0458 11/28/16 0458 A/P Assessment and Plan Recurrent Pleural effusion S/P Pleurex cathetor placement CAD COPD Anxiety CKD PLAN: Pleurex cathetor, will drain daily and prn Aerosol nebs Supplement 02 monitor renal Functions. Pain controll Dc plans underway.for home with [facility] Calixto Hall MD Nov 29, 2016 19:51
[2016-11-29] MEDS: ATORVASTATIN 80 MG TAB PO SCH (21:44)
[2016-11-29] MEDS: valACYclovir HCL 500 MG TAB PO SCH (21:44)
[2016-11-29] MEDS: INSULIN DETEMIR 100 UNITS/ML VIAL SQ SCH (21:51)
[2016-11-29] MEDS: traZODone HCL 50 MG TAB PO SCH (22:25)
[2016-11-30] VITALS (17 sets, daily range): BP systolic 110–121; BP diastolic 64–66; PULSE 51–96; RESP 18–20; TEMP 97.4–98.9; O2SAT 94–100
[2016-11-30] MEDS: DILTIAZEM HCL 90 MG TAB PO SCH ×3 (00:19→11:40)
[2016-11-30] MEDS: oxyCODONE/ACETAMINOPHEN 5 MG/325 MG TAB PO PRN ×2 (04:47→11:41)
[2016-11-30] MEDS: hydrALAZINE HCL 25 MG TAB PO SCH ×2 (05:08→13:27)
[2016-11-30] MEDS: LEVOTHYROXINE SODIUM 150 MCG TAB PO SCH (05:08)
[2016-11-30] MEDS: INSULIN ASPART SUPPLEMENTAL SCALE SQ SCH ×2 (06:24→11:00)
--- NOTE | 2016-11-30 08:42 | HHI.PR ---
Subjective Remarks good po no pain complains no oozing- current regimen of draining working out well Objective Vitals Vital Signs Date Time Temp Pulse Resp B/P Pulse Ox O2 Delivery O2 Flow Rate FiO2 11/30/16 07:00 54 11/30/16 06:00 63 11/30/16 05:47 18 11/30/16 05:00 61 11/30/16 04:00 76 11/30/16 03:00 96 11/30/16 03:00 98.0 68 20 121/65 94 11/30/16 02:00 67 11/30/16 01:00 72 11/30/16 00:00 70 11/29/16 23:00 60 11/29/16 23:00 98.4 64 18 104/50 98 11/29/16 22:00 62 11/29/16 21:52 20 11/29/16 21:00 54 11/29/16 20:00 58 11/29/16 19:00 96 Room Air 11/29/16 19:00 97.8 53 20 128/58 96 11/29/16 19:00 78 11/29/16 18:00 76 11/29/16 17:56 96 Nasal Cannula 2.00 11/29/16 17:00 78 11/29/16 16:00 98.1 79 18 110/62 96 11/29/16 16:00 95 Nasal Cannula 2.00 11/29/16 16:00 80 11/29/16 15:00 72 11/29/16 14:00 72 11/29/16 13:00 68 11/29/16 12:00 66 11/29/16 11:11 96 Nasal Cannula 2.00 11/29/16 11:10 98.2 79 18 112/62 96 11/29/16 11:00 60 11/29/16 10:45 95 11/29/16 10:00 66 11/29/16 09:00 68 I/O 11/29/16 11/29/16 11/29/16 11/30/16 11/30/16 11/30/16 06:59 14:59 22:59 06:59 14:59 22:59 Intake Total 490 ml 875 ml 480 ml Output Total 880 ml 1130 ml 1350 ml Balance -390 ml -255 ml -870 ml Intake Oral 480 ml 875 ml 480 ml IV Total 10 ml Output Urine Total 700 ml 650 ml 1200 ml Drainage Total 180 ml 480 ml 150 ml # Bowel Movements 0 1 Result Diagram: 11/28/16 0458 11/28/16 0458 Imaging Last Impressions Chest X-Ray 11/24/16 0000 Signed Impressions: Service Date/Time: Thursday, November 24, 2016 04:07 - CONCLUSION: Persistent large right pleural effusion and consolidation the right mid and lower lung. John Ha MD Catheter Placement X-Ray 11/23/16 0600 Signed Impressions: Service Date/Time: Wednesday, November 23, 2016 14:19 - CONCLUSION: 1. Uneventful placement of 15.5 [place] Aspira tunneled right-sided pleural drainage catheter , as above. Cali Crockett MD Renal Ultrasound 11/23/16 0000 Signed Impressions: Service Date/Time: Wednesday, November 23, 2016 15:40 - CONCLUSION: 1. No evidence for renal calculi or significant obstructive uropathy. 2. Mildly echogenic kidneys bilaterally consistent with some degree of medical renal disease. 3. Small 1.3 cm cyst in the mid right kidney. 4. Incidental note of gallbladder sludge and right-sided pleural effusion. Cali Crockett MD Objective Remarks awake and alert, no acute distress lungs clear, no rales or wheezes, Spira catheter in place right chest wall irregular rhythm, systolic murmur right sternal border abdomen soft, nontender extremities no edema neuro exam- non focal Procedures chest tube-pig tail tunnelled catheter placement A/P Assessment and Plan -Recurrent pleural effusion- requiring repeated thoracentesis- - Pulmonary ff - Pigtail catheter placed- draining clear light yellow fluid - continue draining 2x a day - seems to be working- regimen working -prn pain meds - will give IV Dilaudid during draining - may be pain meds can make her tolerate more draining - restarted Bumex at 1 mg daily 11/26 - creatinine stabilizing- Atrial fibrillation chronic- rate controlled HYpertension Mitral regurgitation diastolic heart Failure - on CCB and BB - bumex 1 mg daily - on OAC- on Xarelto restarted 20 mg daily - ff up with Dr. 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 Love as OP CM- assist with home health care nursing- pleural catheter care- they will come today and do some education Kortney Cee MD Nov 30, 2016 08:41
[2016-11-30] MEDS: DULoxetine HCl DR 60 MG CAP PO SCH (09:00)
[2016-11-30] MEDS: POTASSIUM CHLORIDE 20 MEQ CONTROLLED RELEASE TAB PO SCH (09:45)
[2016-11-30] MEDS: BUMETANIDE 1 MG TAB PO SCH (09:45)
[2016-11-30] MEDS: METOPROLOL TARTRATE 25 MG TAB PO SCH (09:45)
[2016-11-30] MEDS: PANTOPRAZOLE SOD 40 MG DELAYED RELEASE TAB PO SCH (09:45)
[2016-11-30] MEDS: RIVAROXABAN 10 MG TAB PO SCH (09:46)
[2016-11-30] MEDS: SODIUM CHLORIDE 0.9% FLUSH 10 ML FLUSH IV FLUSH SCH (09:47)
[2016-11-30] MEDS: HYDROmorphone HCL PF 1 MG/ML VIAL IV PUSH SCH (09:47)
--- NOTE | 2016-11-30 11:48 | HHI.HCPN ---
Reason for visit a. To assist with evaluation and management of symptoms including: debility and shortness of breath. b. To assist medical decision maker(s) with: better understanding of current medical conditions; weighing benefits/burdens of medical treatment options; making medical treatment decisions. . Subjective/Interval History Mrs. Garcia is a 72-year-old female with a medical history of oxygen dependent COPD, diabetes mellitus, recurrent pleural effusions requiring frequent thoracentesis, CAD, hypothyroidism, diastolic CHF with mitral regurgitation, atrial fibrillation, hypertension and depression. Patient presented to ED on endorsing generalized weakness, worsening dyspnea on exertion and fatigue for the previous 3 days. Patient was admitted for management of acute on chronic kidney failure, recurrent right pleural effusion, COPD and generalized weakness/fatigue. Palliative care was consulted for clarifications of goals of care given her progressive decline, recent multiple hospitalizations and multiple comorbidities. Palliative care f/u, scheduled to discharge home this afternoon. Patient underwent Pleurx catheter placement to right chest 11/23/16. Discontinue requiring frequent drainage of pleural fluid, at 150 mL removal yesterday. Patient endorsing improvement with respiration, less pain to right chest. Currently tolerating room air, oxygen saturation in the mid 90s. Patient continue reporting a fair appetite, hoping to improve oral intake once she gets home. Denies nausea, vomiting or diarrhea. Remains afebrile, stable hemodynamically. Most recent laboratory 1717 showing WBC 6.3, Hgb 8.7, platelet count 393. Sodium 138, potassium 4.4, BUN/creatinine 46/0.95. No recent imaging for review. Patient tells me that she is looking for discharge home with home health. Depression symptoms have improved once Cymbalta was restarted. Patient verbalize acknowledging her progressive clinical decline, is concerned about her ability to return home for independent living. Hospice philosophy, benefits and timing for referral has been previously discussed with patient. Goals of care at this time is to discharge home with home health and enroll into hospice services when her clinical condition is such that she will require more assistance with symptom management or there is additional functional decline. Ongoing emotional support and active listening provided. Patient verbalized appreciation for my visit today. . Family/friend interactions No family at bedside. . Advance Directives Health Care Surrogate: Copy in medical record Advance Directive Specifics Date completed: 09/14/16. . Health Care Surrogate(s): Friend Melody Pantoja. . Documented care wishes: No living will completed. Information about living will was left with patient to review. . Significant change in goals: Goals remain unchanged. . Objective Vital Signs Date Time Temp Pulse Resp B/P Pulse Ox O2 Delivery O2 Flow Rate FiO2 11/30/16 10:57 20 11/30/16 10:02 54 11/30/16 09:34 21 11/30/16 09:00 69 11/30/16 08:00 64 11/30/16 07:00 54 11/30/16 07:00 98.9 51 18 110/64 100 11/30/16 06:00 63 11/30/16 05:47 18 11/30/16 05:00 61 11/30/16 04:00 76 11/30/16 03:00 96 11/30/16 03:00 98.0 68 20 121/65 94 11/30/16 02:00 67 11/30/16 01:00 72 11/30/16 00:00 70 11/29/16 23:00 60 11/29/16 23:00 98.4 64 18 104/50 98 11/29/16 22:00 62 11/29/16 21:00 54 11/29/16 20:00 58 11/29/16 19:00 96 Room Air 11/29/16 19:00 97.8 53 20 128/58 96 11/29/16 19:00 78 11/29/16 18:00 76 11/29/16 17:56 96 Nasal Cannula 2.00 11/29/16 17:00 78 11/29/16 16:00 98.1 79 18 110/62 96 11/29/16 16:00 95 Nasal Cannula 2.00 11/29/16 16:00 80 11/29/16 15:00 72 11/29/16 14:00 72 11/29/16 13:00 68 11/29/16 12:00 66 Intake & Output 11/30/16 11/30/16 07:00 19:00 Intake Total 480 ml Output Total 1350 ml Balance -870 ml Intake Oral 480 ml Output Urine Total 1200 ml Drainage Total 150 ml # Bowel Movements 1 Physical Exam CONSTITUTIONAL/GENERAL: This is an adequately nourished patient in no acute distress. TUBES/LINES/DRAINS: PIV's. Pleurx catheter. SKIN: No jaundice, rashes, or lesions. Ecchymoses on upper extremities. No wounds seen anteriorly. Skin temperature appropriate. Not diaphoretic. HEAD: Atraumatic. Normocephalic. EYES: Pupils equal and round and reactive. Extraocular motions intact. No scleral icterus. No injection or drainage. ENT: Hearing grossly normal. Nose without bleeding or purulent drainage. Moist oral mucosa. NECK: Trachea midline. Supple, nontender. CARDIOVASCULAR: Irregular rate and rhythm without murmurs, gallops, or rubs. Peripheral pulses symmetric. RESPIRATORY/CHEST: Symmetric, unlabored respirations. Clear breath sounds bilaterally. Pleurx catheter to right lateral chest, dressing in place. GASTROINTESTINAL: Abdomen soft, non-tender, nondistended. No guarding. Bowel sounds present. GENITOURINARY: Without palpable bladder distension. MUSCULOSKELETAL: Extremities without clubbing, cyanosis. Trace edema to bilateral lower extremities. No mottling or clubbing. NEUROLOGICAL: Awake and alert. Motor and sensory grossly within normal limits. Follows commands. Cognitively sharp. Moves all extremities. PSYCHIATRIC: No obvious anxiety/depression. no apparent hallucinations or other psychotic thought process. Pleasant and cooperative. . Diagnostic Tests Laboratory Laboratory Tests Test 11/28/16 04:58 White Blood Count 6.3 TH/MM3 (4.0-11.0) Red Blood Count 3.16 MIL/MM3 (4.00-5.30) Hemoglobin 8.7 GM/DL (11.6-15.3) Hematocrit 26.4 % (35.0-46.0) Mean Corpuscular Volume 83.4 FL (80.0-100.0) Mean Corpuscular Hemoglobin 27.6 PG (27.0-34.0) Mean Corpuscular Hemoglobin 33.1 % Concent (32.0-36.0) Red Cell Distribution Width 16.9 % (11.6-17.2) Platelet Count 393 TH/MM3 (150-450) Mean Platelet Volume 8.5 FL (7.0-11.0) Neutrophils (%) (Auto) 72.0 % (16.0-70.0) Lymphocytes (%) (Auto) 15.7 % (9.0-44.0) Monocytes (%) (Auto) 7.9 % (0.0-8.0) Eosinophils (%) (Auto) 2.9 % (0.0-4.0) Basophils (%) (Auto) 1.5 % (0.0-2.0) Neutrophils # (Auto) 4.5 TH/MM3 (1.8-7.7) Lymphocytes # (Auto) 1.0 TH/MM3 (1.0-4.8) Monocytes # (Auto) 0.5 TH/MM3 (0-0.9) Eosinophils # (Auto) 0.2 TH/MM3 (0-0.4) Basophils # (Auto) 0.1 TH/MM3 (0-0.2) CBC Comment DIFF FINAL Differential Comment Sodium Level 138 MEQ/L (136-145) Potassium Level 4.4 MEQ/L (3.5-5.1) Chloride Level 99 MEQ/L (98-107) Carbon Dioxide Level 35.3 MEQ/L (21.0-32.0) Anion Gap 4 MEQ/L (5-15) Blood Urea Nitrogen 46 MG/DL (7-18) Creatinine 0.95 MG/DL (0.50-1.00) Estimat Glomerular Filtration 58 ML/MIN (>89) Rate Random Glucose 155 MG/DL (74-106) Calcium Level 8.2 MG/DL (8.5-10.1) Result Diagram: 11/28/168 11/28/16 0458 Procedures * 11/23/16 -Pleurx catheter placement to right lung. . Assessment and Plan Disease Oriented Problem List: (1) Recurrent left pleural effusion (2) Acute kidney failure (3) CHF (congestive heart failure) (4) Acute on chronic diastolic CHF (congestive heart failure) Symptom Scale: (1) Shortness of breath 0-10 Scale: 0 Comment: Secondary to COPD, CHF, pleural effusion. Currently tolerating room air. (2) Pain 0-10 Scale: 0 Comment: Secondary to placement of Pleurx catheter. (3) Debility 0-10 Scale: Unable to quantify Comment: Progressive. Worsen since February 2016. Pertinent Non-Medical Issues Psychosocial: Spiritual: Legal: Ethical issues impacting care: Important Contacts [facility] Melody Pantoja [phone]. . Prognosis Mrs. Garcia is a 72-year-old female with a medical history of oxygen dependent COPD, diabetes mellitus, recurrent pleural effusions requiring frequent thoracentesis, CAD, hypothyroidism, diastolic CHF with mitral regurgitation, atrial fibrillation, hypertension and depression. Patient presented to ED on endorsing generalized weakness, worsening dyspnea on exertion and fatigue for the previous 3 days. Patient was admitted for management of acute on chronic kidney failure, recurrent right pleural effusion, COPD and generalized weakness/fatigue. This is patient's fifth hospitalization this year, worsening clinical condition and physical decline since cardiac bypass in February 2016. Patient at high risk for further complications, continue decline and . . Code Status: No Code Plan * CODE STATUS: No code. DNR/DNI. Community DNR signed. * GOALS OF CARE: 11/30/16 -goals of care remains unchanged, continue conservative management short of NO code/DNR-DNI. Goal of therapy is to return home with home health for independent living, pt to discharge this afternoon. Discussed the future role of hospice services should her clinical condition continued to worsen or there is additional functional decline. Patient receptive to this. Discussed at length appropriate timing for hospice consultation. * HEALTHCARE DECISION-MAKING: Patient currently participating in medical decision making. She demonstrates a good understanding of her medical conditions and the ability to weigh the benefits and burdens of treatment options. Patient has designated her best friend, Melody Pantoja, as her health care surrogate decision maker. * SYMPTOMS: = Shortness of breath, secondary to COPD, CHF, pleural effusions, acute illness. O2 at home as needed. Currently tolerating room air. Pulmonology following. Pleurx catheter to right lung placed 11/23/16. = Debility: Worsening since February 2016. Exacerbated by her current clinical complications. = Pain: Secondary to recent placement of Pleurx catheter. Percocet 5/325mg q6h PRN available. * Ongoing emotional support and active listening provided. * Palliative care contact information has been provided to patient. * Palliative care will continue to follow-up as needed for further clarifications of goals of care as her clinical course continue to evolve. . Time Spent Total Floor Time (mins): 26 (Total time to include review medical records, physical exam and goals of care discussion with patient.) >50% Counseling/Coord of Care: Yes Attestation To help prompt me to consider important information that might be impacting today's encounter and assessment, information from prior notes written by myself or my colleagues may have been "brought forward" into today's note. My signature on this note, however, is an attestation that I personally performed the exam, history, and/or decision-making noted today, and, unless otherwise indicated, the interactions with patient, family, and staff as well as the review of records all occurred today. I also attest that the listed assessment and stated plan reflect my best clinical judgment today based on the combination of historical information, prior notes, and today's exam/ interactions. When time spent is documented, it refers only to time spent today by the signer, or if indicated, combined time spent today by collaborating physician/nurse practitioner. Cecilia Manriquez Nov 30, 2016 11:48
--- NOTE | 2016-11-30 14:38 | HHI.PR ---
Subjective Remarks 76 YOWF with Recurrent pleural effusion had Right pleurex cathetor Had Plurex drained twice yesterday and again this AM No oozing from Cathetor site breathing better Objective Vital Signs Vital Signs Date Time Temp Pulse Resp B/P Pulse Ox O2 Delivery O2 Flow Rate FiO2 11/30/16 13:04 20 11/30/16 13:00 75 11/30/16 12:02 66 11/30/16 11:00 97.4 64 20 121/66 99 11/30/16 11:00 63 11/30/16 10:57 20 11/30/16 10:02 54 11/30/16 09:34 21 11/30/16 09:00 69 11/30/16 08:00 64 11/30/16 07:00 54 11/30/16 07:00 98.9 51 18 110/64 100 11/30/16 06:00 63 11/30/16 05:00 61 11/30/16 04:00 76 11/30/16 03:00 96 11/30/16 03:00 98.0 68 20 121/65 94 11/30/16 02:00 67 11/30/16 01:00 72 11/30/16 00:00 70 11/29/16 23:00 60 11/29/16 23:00 98.4 64 18 104/50 98 11/29/16 22:00 62 11/29/16 21:00 54 11/29/16 20:00 58 11/29/16 19:00 96 Room Air 11/29/16 19:00 97.8 53 20 128/58 96 11/29/16 19:00 78 11/29/16 18:00 76 11/29/16 17:56 96 Nasal Cannula 2.00 11/29/16 17:00 78 11/29/16 16:00 98.1 79 18 110/62 96 11/29/16 16:00 95 Nasal Cannula 2.00 11/29/16 16:00 80 11/29/16 15:00 72 I/O 11/29/16 11/29/16 11/29/16 11/30/16 11/30/16 11/30/16 07:00 15:00 23:00 07:00 15:00 23:00 Intake Total 490 ml 875 ml 480 ml Output Total 880 ml 1130 ml 1350 ml Balance -390 ml -255 ml -870 ml Intake Oral 480 ml 875 ml 480 ml IV Total 10 ml Output Urine Total 700 ml 650 ml 1200 ml Drainage Total 180 ml 480 ml 150 ml # Bowel Movements 0 1 Result Diagram: 11/28/168 11/28/16457 A/P Assessment and Plan Recurrent Pleural effusion S/P Pleurex cathetor placement CAD COPD Anxiety CKD PLAN: Pleurex cathetor, will drain daily and prn Aerosol nebs Supplement 02 monitor renal Functions. Pain controll Dc plans underway.for home with [facility] Advised to FU with . Calixto Hall MD Nov 30, 2016 14:38
== END 2016-11-30 16:06 | disposition home health service (06) | DRG 186 ==
LOC: NEPC 11:45 → NEDA 16:35 → HCIS 20:32
PROVIDERS: ADMIT Internal Medicine; ATTEND Internal Medicine
PROC: 0B9N30Z Drainage of Right Pleura with Drainage Device, Percutaneous Approach (ICD-10-PCS; principal; 2016-11-23)
DX: J90 Pleural effusion, not elsewhere classified (principal); J96.21 Acute and chronic respiratory failure with hypoxia; I50.33 Acute on chronic diastolic (congestive) heart failure; N17.9 Acute kidney failure, unspecified; E86.0 Dehydration; E11.22 Type 2 diabetes mellitus with diabetic chronic kidney disease; Z79.4 Long term (current) use of insulin; I48.2 Chronic atrial fibrillation; I27.2 Other secondary pulmonary hypertension; I12.9 Hypertensive chronic kidney disease with stage 1 through stage 4 chronic kidney disease, or unspecified chronic kidney disease; N18.9 Chronic kidney disease, unspecified; J44.9 Chronic obstructive pulmonary disease, unspecified; Z99.81 Dependence on supplemental oxygen; I48.91 Unspecified atrial fibrillation; I25.10 Atherosclerotic heart disease of native coronary artery without angina pectoris; Z95.1 Presence of aortocoronary bypass graft; Z95.5 Presence of coronary angioplasty implant and graft; I25.2 Old myocardial infarction; E03.9 Hypothyroidism, unspecified; E78.5 Hyperlipidemia, unspecified; K21.9 Gastro-esophageal reflux disease without esophagitis; E87.6 Hypokalemia; Z87.891 Personal history of nicotine dependence; I34.0 Nonrheumatic mitral (valve) insufficiency; F32.9 Major depressive disorder, single episode, unspecified; F41.9 Anxiety disorder, unspecified; Z66 Do not resuscitate; Z98.84 Bariatric surgery status
CPT/HCPCS: 32550; 36600; 71010; 71020; 75989; 76775; 76937; 80048; 80053; 81001; 82550; 82805; 82948; 83735; 83880; 84484; 85025; 85610; 85730; 93005; 94620; 94640; 94664; 96374; 99152; C1729; J1170; J1644; J1815; J1956; J2250; J2930; J3010; J3480; J7030

== ENCOUNTER 2016-12-07 17:00 | Inpatient (IN) | payer OTHER ==
[~2016-12-07] VITALS: Ht 157.5 cm; Wt 63.3 kg
[~2016-12-07 17:00] MED LIST changes: -ALPR.25 PO; -AMLO5 PO; +ATOR1TAB18 PO; -DRIS50002 PO; +ERGO1CAP30 PO; -FERR325T PO; +HYDR-3534 PO; +HYDR-3799 PO; -HYDR25TA35 PO; -LANTUS2P SQ; -LIPI10TA PO; -LOSA50TA PO; -METO50TA PO; -NITR1SUB3 SL; -NOVOLOGSS SQ; -OXYGENTANK NAS.CANULA; +XARE10TA PO; -XARE15TA PO; +XARE20TA PO
[2016-12-07 17:02] VITALS: BP 89/52; PULSE 84; RESP 16; TEMP 97.8; O2SAT 95
--- NOTE | 2016-12-07 17:28 | PD ---
Physical Exam Date Seen by Provider: Dec 07, 2016 Time Seen by Provider: 17:26 Narrative 76 year old female here for evaluation of possible drainage issues. She had a catheter placed on her lung to help drain fluid secondary to multiple episodes of pulmonary edema. Dr Allison of pulmonology send her here for evaluation of possible infection as she states she is feeling weak and the catheter has not drain anything in the past few days. No other complaints. Vitals are stable in triage. Awaiting Bed placement. Protocols ordered by me while patient awaits placement. Data Data Last Documented VS Vital Signs Date Time Temp Pulse Resp B/P Pulse Ox O2 Delivery O2 Flow Rate FiO2 12/07/16 17:02 97.8 84 16 89/52 95 Orders Complete Blood Count With Diff (12/07/16 17:28) Basic Metabolic Panel (Bmp) (12/07/16 17:28) Prothrombin Time / Inr (Pt) (12/07/16 17:28) Act Partial Throm Time (Ptt) (12/07/16 17:28) Magnesium (Mg) (12/07/16 17:28) Chest, Single Ap (12/07/16 17:28) MDM Medical Record Reviewed: Yes Supervised Visit with MIKE: No Galo Bailey Dec 07, 2016 17:28
--- NOTE | 2016-12-07 18:30 | RADRPT ---
EXAM DATE/TIME: 12/07/2016 17:58 [facility] COMPARISON: CHEST SINGLE AP, November 22, 2016, 19:11. INDICATIONS : Short of breath. MEDICAL HISTORY : Congestive heart failure. Chronic obstructive pulmonary disease. Myocardial infarction. SURGICAL HISTORY : CABG. ENCOUNTER: Initial ACUITY: 1 day PAIN SCORE: 0/10 LOCATION: Bilateral chest FINDINGS: A single portable frontal view of the chest shows a tunneled right-sided thoracostomy tube. This is a ppropriately positioned within the inferior right hemithorax. There is either pleural thickening or l oculated small pleural effusion on the right. There has been significant reduction in the pleural flu id from the previous study. Left lung is clear. Heart is mildly enlarged but stable. Median sternotom y wires. CONCLUSION: 1. Tunneled right thoracostomy tube in good position. 2. Either pleural thickening or small volume loculated pleural effusion on the right. 3. Mild cardiomegaly John Peace Jr., MD on December 07, 2016 at 18:26 Board Certified Radiologist. This report was verified electronically.
[2016-12-07 18:31] LABS: APTT (PATIENT) 37.9 SEC (24.3-30.1); AUTOMATED NEUTROPHIL # 11.7 TH/MM3 (1.8-7.7); BASOPHIL # 0.1 TH/MM3 (0-0.2); BASOPHIL % 0.6 % (0.0-2.0); EOSINOPHIL # 0.1 TH/MM3 (0-0.4); EOSINOPHIL % 1.1 % (0.0-4.0); HEMATOCRIT 28.6 % (35.0-46.0); HEMO FLAGS DIFF FINAL; LYMPH % 4.6 % (9.0-44.0); LYMPHOCYTE # 0.6 TH/MM3 (1.0-4.8); MEAN CELL VOLUME 88.3 FL (80.0-100.0); MEAN CORPUSCULAR HEMOGLOBIN 27.2 PG (27.0-34.0); MEAN CORPUSCULAR HGB CONC 30.8 % (32.0-36.0); MONO % 5.9 % (0.0-8.0); NEUT % 87.8 % (16.0-70.0); PLATELET COUNT 485 TH/MM3 (150-450); PROTHROMBIN TIME - PATIENT 11.6 SEC (9.8-11.6); RED BLOOD COUNT 3.24 MIL/MM3 (4.00-5.30); RED CELL DISTRIBUTION WIDTH 22.1 % (11.6-17.2); WHITE BLOOD COUNT 13.4 TH/MM3 (4.0-11.0)
[2016-12-07 18:39] LABS: BICARBONATE 23.4 MEQ/L (21.0-32.0); POTASSIUM 3.8 MEQ/L (3.5-5.1)
[2016-12-07 20:30] VITALS: BP 126/70; PULSE 88; RESP 16; O2SAT 97
--- NOTE | 2016-12-07 20:40 | PD ---
Physical Exam Narrative General: The patient is a well-developed well-nourished female in no acute distress, somewhat pale appearing on examination. Head and Neck exam: Head is normocephalic atraumatic. Eyes: EOMI, pupils are equal round and reactive to light. Nose: Midline septum with pink mucous membranes Mouth: Dentition unremarkable. Moist mucus membranes. Posterior oropharynx is not erythematous. No tonsillar hypertrophy. Uvula midline. Airway patent. Neck: No palpable lymphadenopathy. No nuchal rigidity. No thyromegaly. Cardiovascular: Regular rate and rhythm without murmurs, gallops, or rubs. No pulse deficit to the extremities and simultaneous auscultation and palpation of her radial artery. The patient's initial blood pressure on arrival was 89 systolic according to the record, however when she arrived back to the room her systolic blood pressure was 126. Lungs: Clear to auscultation bilaterally. No wheezes, rhonchi, or rales. On examination of the patient's right chest wall the patient has a pigtail catheter in place. The patient reports that she has not had any drainage from it since Tuesday. Abdomen: Soft, without tenderness to palpation in all 4 quadrants of the abdomen. No guarding, rebound, or rigidity. Normal bowel sounds are audible. No tenderness on palpation of McBurney's point. Negative [place] sign. Extremities: No clubbing, cyanosis, or edema. 2+ pulses in all 4 extremities. No calf tenderness on palpation. Back: No costovertebral angle tenderness to palpation. Neurologic Exam: Cranial nerves 2-12 were intact on exam. Strength is 5/5 in all 4 extremities. No sensory deficits noted. Skin Exam: No rash noted. Intact skin that is warm and dry. Data Data Last Documented VS Vital Signs Date Time Temp Pulse Resp B/P Pulse Ox O2 Delivery O2 Flow Rate FiO2 12/07/16 21:00 101 16 131/67 97 Room Air 12/07/16 17:02 97.8 Orders Complete Blood Count With Diff (12/07/16 17:28) Basic Metabolic Panel (Bmp) (12/07/16 17:28) Prothrombin Time / Inr (Pt) (12/07/16 17:28) Act Partial Throm Time (Ptt) (12/07/16 17:28) Magnesium (Mg) (12/07/16 17:28) Chest, Single Ap (12/07/16 17:28) Ct Thorax/ Chest Wo Iv Contras (12/07/16 ) Lactic Acid Sepsis Protocol (12/07/16 20:25) Urinalysis - C+S If Indicated (12/07/16 20:25) Sodium Chlorid 0.9% 500 Ml Inj (Ns 500 M (12/07/16 20:45) Urine Culture (12/07/16 20:30) Labs Laboratory Tests Test 12/07/16 12/07/16 12/07/16 18:05 20:30 20:55 White Blood Count 13.4 TH/MM3 Red Blood Count 3.24 MIL/MM3 Hemoglobin 8.8 GM/DL Hematocrit 28.6 % Mean Corpuscular Volume 88.3 FL Mean Corpuscular Hemoglobin 27.2 PG Mean Corpuscular Hemoglobin 30.8 % Concent Red Cell Distribution Width 22.1 % Platelet Count 485 TH/MM3 Mean Platelet Volume 8.8 FL Neutrophils (%) (Auto) 87.8 % Lymphocytes (%) (Auto) 4.6 % Monocytes (%) (Auto) 5.9 % Eosinophils (%) (Auto) 1.1 % Basophils (%) (Auto) 0.6 % Neutrophils # (Auto) 11.7 TH/MM3 Lymphocytes # (Auto) 0.6 TH/MM3 Monocytes # (Auto) 0.8 TH/MM3 Eosinophils # (Auto) 0.1 TH/MM3 Basophils # (Auto) 0.1 TH/MM3 CBC Comment DIFF FINAL Differential Comment Prothrombin Time 11.6 SEC Prothromb Time International 1.0 RATIO Ratio Activated Partial 37.9 SEC Thromboplast Time Sodium Level 135 MEQ/L Potassium Level 3.8 MEQ/L Chloride Level 100 MEQ/L Carbon Dioxide Level 23.4 MEQ/L Anion Gap 12 MEQ/L Blood Urea Nitrogen 43 MG/DL Creatinine 1.46 MG/DL Estimat Glomerular Filtration 35 ML/MIN Rate Random Glucose 178 MG/DL Calcium Level 8.6 MG/DL Magnesium Level 2.0 MG/DL Urine Color YELLOW Urine Turbidity HAZY Urine pH 5.0 Urine Specific [place] 1.014 Urine Protein TRACE mg/dL Urine Glucose (UA) NEG mg/dL Urine Ketones NEG mg/dL Urine Occult Blood MOD Urine Nitrite NEG Urine Bilirubin NEG Urine Urobilinogen 2.0 MG/DL Urine Leukocyte Esterase MOD Urine RBC 6 /hpf Urine WBC 5 /hpf Urine Squamous Epithelial 5 /hpf Cells Urine Amorphous Sediment RARE Urine Bacteria RARE /hpf Urine Hyaline Casts 9 /lpf Urine Mucus FEW /lpf Microscopic Urinalysis Comment CATH-CULTURE IND Lactic Acid Level 1.2 mmol/L [facility] Medical Record Reviewed: Yes Supervised Visit with MIKE: Yes Narrative Course I, Dr. Benavides, have reviewed the advance practice practitioner's documentation and am in agreement, met with the patient face to face, made the diagnosis, and the medical decision making was done by me. The patient was initially seen by Emma. Please see her complete history and physical. *My assessment and Findings: The patient is a 76-year-old female who presents to [facility] emergency Department with a history of generalized weakness, overall not feeling well since she had a drainage catheter placed in the right side of her chest related to an effusion. The patient reports that it stopped draining on Tuesday. She talked to her catalogue maker and was sent into the emergency department for evaluation and treatment. During the course of the patients emergency department visit, the patients history, examination, and differential diagnosis were reviewed with the patient. The patient had IV access obtained and blood work sent for analysis. The patient was initially provided normal saline a 500 mL bolus 1. The patients laboratory studies were reviewed and remarkable for a white count of 13.4, hemoglobin 8.8 which appears to be at her baseline compared to previously, platelets 45, neutrophils 87.8, lymphocytes 4.6. Basic metabolic profile is remarkable for a sodium of 135, BUN 43, creatinine 1.46, glucose 178 , lactic acid 1.2, magnesium 2.0. The patient has a history of renal insufficiency and appears to also be at her baseline. PT 11.6, PTT 37.9, urinalysis shows moderate occult blood, moderate leukocyte esterase, RBCs 6, wbc 's 5, rare bacteria, culture indicated. Radiology studies were reviewed and remarkable for a chest x-ray that shows a tunneled right thoracostomy tube and good positioning, either pleural thickening or small volume loculated pleural effusion on the right, mild cardiomegaly. CT scan of the thorax reveals a small bilateral pleural effusion which is smaller from the prior study. No discrete infiltrate, cardiomegaly, significant coronary artery atherosclerotic calcifications are noted. While the patient was being observed in the emergency department, the patient reported having blood in her stool. The patient reports that she passed gas and also noted a blood clot with mucus. She reports that this began earlier today and initially she had attributed it to hemorrhoids. Due to the patient's baseline anemia and now let he stool, the patient will be admitted for observation. The patients results were discussed with the patient, including the plan of care. I explained that further testing and/ or monitoring is indicated based on the patients history, examination, and/ or laboratory findings. Therefore, I recommended admission for additional evaluation. The patient expressed understanding and was agreeable with this plan. The patient was admitted to the hospital in stable condition and sent to a bed under the care of the [facility] Hospitalist service. Diagnosis Primary Impression: Generalized weakness Additional Impressions: GI bleed Qualified Code: K92.2 - Gastrointestinal hemorrhage, unspecified gastrointestinal hemorrhage type Urinary tract infection Qualified Code: N39.0 - Urinary tract infection without hematuria, site unspecified Admitting Information Admitting Physician Requests: Observation Marguerite Benavides MD Dec 07, 2016 20:40
--- NOTE | 2016-12-07 20:43 | PD ---
HPI Chief Complaint: General Weakness Time Seen by Provider: 20:33 Travel History International Travel<30 days: No Contact w/Intl Traveler<30days: No Traveled to known affect area: No History of Present Illness HPI Patient is a 76-year-old female presenting to emergency department evaluation of right Pleurx chest tube, rule out infection. Patient was seen by her child nurse Dr. Mills today, there was an attempt to drain the catheter in the office with no success, there was also tenderness noted along the course of the catheter the patient was sent here to evaluate for possible local infection. Patient states that up until Tuesday it has been draining twice daily , since Tuesday she has not had any drainage. She states that the pain at the insertion site is worse than it had been previously since it was placed last week. She denies any fever, chills, nausea, vomiting. She states that she has felt weak lately. Patient reports prior to having this chest tube placed she had 10 thoracentesis previously. Patient's past medical history significant for COPD, coronary artery disease, hypertension, thyroid disorder, congestive heart failure, atrial fibrillation, currently on Xarelto. PFSH Past Medical History Hx Anticoagulant Therapy: Yes (XARELTO) Arthritis: Yes Asthma: No Atrial Fibrillation: Yes Autoimmune Disease: No Anxiety: Yes Depression: Yes Cancer: No Cardiac Catheterization: Yes High Cholesterol: Yes Chemotherapy: No Chest Pain: No Congestive Heart Failure: Yes COPD: Yes Cerebrovascular Accident: No Coronary Artery Disease: Yes Diabetes: Yes Patient Takes Glucophage: No Diminished Hearing: Yes Gastrointestinal Disorders: Yes GERD: Yes Genitourinary: No Hiatal Hernia: Yes Heparin Induced Thrombocytopen: No Hypertension: Yes Immune Disorder: No Kidney Stones: No Musculoskeletal: Yes Neurologic: Yes Reproductive: No Respiratory: Yes (10 THORACENTESIS) Migraines: No Pneumonia: Yes Radiation Therapy: No Renal Failure: No Seizures: No Sickle Cell Disease: No Sleep Apnea: Yes Thyroid Disease: Yes (Hypothyroid) Ulcer: Yes Tetanus Vaccination: Unknown Influenza Vaccination: Yes Past Surgical History Abdominal Surgery: Yes (gastric bypass 2009) AICD: No Arteriovenous Shunt: No Body Medical Devices: CHEST CLOSURE Coronary Artery Bypass Graft: Yes (X3 February 2016) Coronary Stent: Yes (X`1) Ear Surgery: No Endocrine Surgery: No Eye Surgery: Yes (bilateral cataract sx) Genitourinary Surgery: No Gynecologic Surgery: No Insulin Pump: No Joint Replacement: No Neurologic Surgery: No Oral Surgery: Yes (teeth extraction, wisdom) Pacemaker: No Thoracic Surgery: No Other Surgery: Yes Social History Alcohol Use: Yes (RARE) Tobacco Use: No Substance Use: No Allergies-Medications (Allergen,Severity, Reaction): Coded Allergies: Erythromycin (Verified Allergy, Unknown, 12/07/16) Lasix (Verified Allergy, Unknown, 12/07/16) Penicillin (Verified Allergy, Unknown, 12/07/16) *MDRO Multi-Drug Resistant Organism (Verified Adverse Reaction, Unknown, ) 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 - 09/15/2016 Reported Meds & Prescriptions Reported Meds & Active Scripts Active Lortab (Hydrocodone-Acetaminophen) 7.5-325 Mg Tab 1 Tab PO BID Xarelto (Rivaroxaban) 10 Mg Tab 20 Mg PO DAILY 30 Days Levemir Inj (Insulin Detemir) 1,000 unit/ 10 ML Vial 15 Units SQ HS [address] (Duloxetine HCl) 60 Mg Capdr 60 Mg PO DAILY 30 Days Bumetanide 1 Mg Tab 1 Mg PO DAILY 30 Days Metoprolol Tartrate 25 Mg Tab 25 Mg PO Q12HR Trazodone (Trazodone HCl) 50 Mg Tab 50 Mg PO HS 30 Days Pantoprazole (Pantoprazole Sodium) 40 Mg Tab 40 Mg PO DAILY 30 Days Thera M Plus (Multivitamins/Minerals Therapeutic) 1 Tab 1 Tab PO DAILY 30 Days Aspirin Low Strength (Aspirin) 81 Mg Chew 81 Mg PO DAILY 30 Days Reported Klor-Con 10 (Potassium Chloride) 10 Meq Tab 10 Meq PO HS Hydralazine HCl 25 Mg Tablet 25 Mg PO Q8HR Ergocalciferol 50,000 Unit Cap 50,000 Units PO Q7D ON MONDAYS Xarelto (Rivaroxaban) 20 Mg Tab 20 Mg PO DAILY Atorvastatin (Atorvastatin Calcium) 80 Mg Tab 80 Mg PO HS Diltiazem (Diltiazem HCl) 90 Mg Tab 90 Mg PO Q6 HR Novolog Inj (Insulin Aspart) 1,000 Unit/10 Ml Vial 2-10 Units SQ ACHS Sliding Scale Valtrex (Valacyclovir HCl) 1 Gm Tab 1 Gm PO HS Cyanocobalamin Inj (Cyanocobalamin) 1,000 Mcg/Ml Inj 1,000 Mcg IM EVERY 2 WEEKS Levothyroxine (Levothyroxine Sodium) 150 Mcg Tab 150 Mcg PO DAILY@0600 Fenofibrate 160 Mg Tab 160 Mg PO HS Review of Systems Except as stated in HPI: all other systems reviewed are Neg Respiratory: Positive: Orthopnea Musculoskeletal: Positive: Pain (insertion site) Neurologic: Positive: Weakness Physical Exam Narrative GENERAL: Well-developed, well-nourished, alert elderly female. Resting comfortably in no acute distress. SKIN: Warm and dry. HEAD: Atraumatic. Normocephalic. EYES: Pupils equal and round. No scleral icterus. No injection or drainage. ENT: No nasal bleeding or discharge. Mucous membranes pink and moist. NECK: Trachea midline. No JVD. CARDIOVASCULAR: Regular rate and rhythm. 2/6 systolic murmur RESPIRATORY: No accessory muscle use. Clear to auscultation. Breath sounds equal , diminished in bases. No wheezes, rhonchi, rales noted. Pleurx catheter to the right lateral chest wall, insertion site but no significant edema, erythema or fluctuance. GASTROINTESTINAL: Abdomen soft, non-tender, nondistended. Hepatic and splenic margins not palpable. MUSCULOSKELETAL: Extremities without clubbing, cyanosis, or edema. No obvious deformities. NEUROLOGICAL: Awake and alert. No obvious cranial nerve deficits. Motor grossly within normal limits. Five out of 5 muscle strength in the arms and legs. Normal speech. PSYCHIATRIC: Appropriate mood and affect; insight and judgment normal. Data Data Last Documented VS Vital Signs Date Time Temp Pulse Resp B/P Pulse Ox O2 Delivery O2 Flow Rate FiO2 12/07/16 21:00 101 16 131/67 97 Room Air 12/07/16 17:02 97.8 Orders Complete Blood Count With Diff (12/07/16 17:28) Basic Metabolic Panel (Bmp) (12/07/16 17:28) Prothrombin Time / Inr (Pt) (12/07/16 17:28) Act Partial Throm Time (Ptt) (12/07/16 17:28) Magnesium (Mg) (12/07/16 17:28) Chest, Single Ap (12/07/16 17:28) Ct Thorax/ Chest Wo Iv Contras (12/07/16 ) Lactic Acid Sepsis Protocol (12/07/16 20:25) Urinalysis - C+S If Indicated (12/07/16 20:25) Sodium Chlorid 0.9% 500 Ml Inj (Ns 500 M (12/07/16 20:45) Urine Culture (12/07/16 20:30) Admit Order (Ed Use Only) (12/07/16 22:46) Place In Observation (12/07/16 ) Vital Signs (Adult) Q4H (12/07/16 22:46) Activity Oob With Assistance (12/07/16 22:46) Associate Spa Director / Telemetry .CONTINUOUS (12/07/16 22:46) Diet Npo (12/08/16 Breakfast) Sodium Chloride 0.9% Flush (Ns Flush) (12/07/16 23:00) Sodium Chloride 0.9% Flush (Ns Flush) (12/08/16 09:00) Ondansetron Inj (Zofran Inj) (12/07/16 23:00) Basic Metabolic Panel (Bmp) (12/08/16 06:00) Complete Blood Count With Diff (12/08/16 06:00) Pt Request For Service (12/07/16 22:46) Naloxone Inj (Narcan Inj) (12/07/16 23:00) Hgb & Hct (12/07/16 22:46) Type And Screen (12/07/16 22:46) Labs Laboratory Tests Test 12/07/16 12/07/16 12/07/16 18:05 20:30 20:55 White Blood Count 13.4 TH/MM3 Red Blood Count 3.24 MIL/MM3 Hemoglobin 8.8 GM/DL Hematocrit 28.6 % Mean Corpuscular Volume 88.3 FL Mean Corpuscular Hemoglobin 27.2 PG Mean Corpuscular Hemoglobin 30.8 % Concent Red Cell Distribution Width 22.1 % Platelet Count 485 TH/MM3 Mean Platelet Volume 8.8 FL Neutrophils (%) (Auto) 87.8 % Lymphocytes (%) (Auto) 4.6 % Monocytes (%) (Auto) 5.9 % Eosinophils (%) (Auto) 1.1 % Basophils (%) (Auto) 0.6 % Neutrophils # (Auto) 11.7 TH/MM3 Lymphocytes # (Auto) 0.6 TH/MM3 Monocytes # (Auto) 0.8 TH/MM3 Eosinophils # (Auto) 0.1 TH/MM3 Basophils # (Auto) 0.1 TH/MM3 CBC Comment DIFF FINAL Differential Comment Prothrombin Time 11.6 SEC Prothromb Time International 1.0 RATIO Ratio Activated Partial 37.9 SEC Thromboplast Time Sodium Level 135 MEQ/L Potassium Level 3.8 MEQ/L Chloride Level 100 MEQ/L Carbon Dioxide Level 23.4 MEQ/L Anion Gap 12 MEQ/L Blood Urea Nitrogen 43 MG/DL Creatinine 1.46 MG/DL Estimat Glomerular Filtration 35 ML/MIN Rate Random Glucose 178 MG/DL Calcium Level 8.6 MG/DL Magnesium Level 2.0 MG/DL Urine Color YELLOW Urine Turbidity HAZY Urine pH 5.0 Urine Specific [place] 1.014 Urine Protein TRACE mg/dL Urine Glucose (UA) NEG mg/dL Urine Ketones NEG mg/dL Urine Occult Blood MOD Urine Nitrite NEG Urine Bilirubin NEG Urine Urobilinogen 2.0 MG/DL Urine Leukocyte Esterase MOD Urine RBC 6 /hpf Urine WBC 5 /hpf Urine Squamous Epithelial 5 /hpf Cells Urine Amorphous Sediment RARE Urine Bacteria RARE /hpf Urine Hyaline Casts 9 /lpf Urine Mucus FEW /lpf Microscopic Urinalysis Comment CATH-CULTURE IND Lactic Acid Level 1.2 mmol/L [facility] Medical Decision Making Medical Screen Exam Complete: Yes Emergency Medical Condition: Yes Medical Record Reviewed: Yes Interpretation(s) Laboratory Tests Test 12/07/16 12/07/16 18:05 20:30 White Blood Count 13.4 TH/MM3 Red Blood Count 3.24 MIL/MM3 Hemoglobin 8.8 GM/DL Hematocrit 28.6 % Mean Corpuscular Volume 88.3 FL Mean Corpuscular Hemoglobin 27.2 PG Mean Corpuscular Hemoglobin 30.8 % Concent Red Cell Distribution Width 22.1 % Platelet Count 485 TH/MM3 Mean Platelet Volume 8.8 FL Neutrophils (%) (Auto) 87.8 % Lymphocytes (%) (Auto) 4.6 % Monocytes (%) (Auto) 5.9 % Eosinophils (%) (Auto) 1.1 % Basophils (%) (Auto) 0.6 % Neutrophils # (Auto) 11.7 TH/MM3 Lymphocytes # (Auto) 0.6 TH/MM3 Monocytes # (Auto) 0.8 TH/MM3 Eosinophils # (Auto) 0.1 TH/MM3 Basophils # (Auto) 0.1 TH/MM3 CBC Comment DIFF FINAL Differential Comment Prothrombin Time 11.6 SEC Prothromb Time International 1.0 RATIO Ratio Activated Partial 37.9 SEC Thromboplast Time Sodium Level 135 MEQ/L Potassium Level 3.8 MEQ/L Chloride Level 100 MEQ/L Carbon Dioxide Level 23.4 MEQ/L Anion Gap 12 MEQ/L Blood Urea Nitrogen 43 MG/DL Creatinine 1.46 MG/DL Estimat Glomerular Filtration 35 ML/MIN Rate Random Glucose 178 MG/DL Calcium Level 8.6 MG/DL Magnesium Level 2.0 MG/DL Urine Color YELLOW Urine Turbidity HAZY Urine pH 5.0 Urine Specific [place] 1.014 Urine Protein TRACE mg/dL Urine Glucose (UA) NEG mg/dL Urine Ketones NEG mg/dL Urine Occult Blood MOD Urine Nitrite NEG Urine Bilirubin NEG Urine Urobilinogen 2.0 MG/DL Urine Leukocyte Esterase MOD Urine RBC 6 /hpf Urine WBC 5 /hpf Urine Squamous Epithelial 5 /hpf Cells Urine Amorphous Sediment RARE Urine Bacteria RARE /hpf Urine Hyaline Casts 9 /lpf Urine Mucus FEW /lpf Microscopic Urinalysis Comment CATH-CULTURE IND Last Impressions Chest X-Ray 12/07/16 1728 Signed Impressions: Service Date/Time: Wednesday, December 07, 2016 17:58 - CONCLUSION: 1. Tunneled right thoracostomy tube in good position. 2. Either pleural thickening or small volume loculated pleural effusion on the right. 3. Mild cardiomegaly John Peace Jr., MD Chest CT 12/07/16 0000 Signed Impressions: Service Date/Time: Wednesday, December 07, 2016 20:39 - CONCLUSION: 1. Small bilateral pleural effusions which are smaller from the prior study. 2. No discrete infiltrate. 3. Cardiomegaly. 4. Significant coronary artery atherosclerotic calcifications. John Peace Jr., MD Vital Signs Date Time Temp Pulse Resp B/P Pulse Ox O2 Delivery O2 Flow Rate FiO2 12/07/16 21:00 101 16 131/67 97 Room Air 12/07/16 20:30 88 16 126/70 97 Room Air 12/07/16 17:02 97.8 84 16 89/52 95 Differential Diagnosis Abscess versus empyema versus pleural effusion versus pneumonia versus sepsis versus other Narrative Course Patient is 76-year-old female presented to the emergency department evaluation of her Pleurx catheter after being evaluated by her child nurse. Labs and Imaging ordered. Patient's blood pressure. Hypotensive on arrival, blood pressure was reassessed when she was embedded, patient is normotensive. Initial chest x-ray shows tunneled right thoracostomy tube in good position, either pleural thickening or small volume loculated pleural effusion on the right, mild cardiomegaly. CBC with elevated white count at 13.4 with left shift. Hemoglobin is stable compared to prior. Lactic acid 1.2 BUN and creatinine elevated at 43/1.46. Creatinine is elevated compared to prior result on 11/28/16. Urinalysis with moderate leukocyte esterase, red blood cells, rare bacteria, Culture pending. Upon reassessment of patient, she admitted that she had had large amounts of blood in her stool that started today. Patient is Hemoccult positive. Patient has a history of hemorrhoids. Due to patient's anemia, and active bleeding. She will be admitted under observation, hospitalist paged for admission. Patient is agreeable to plan. Diagnosis Primary Impression: Pleural effusion Additional Impressions: UTI (urinary tract infection) Qualified Code: N39.0 - Urinary tract infection with hematuria, site unspecified GI bleed Qualified Code: K92.2 - Gastrointestinal hemorrhage, unspecified gastrointestinal hemorrhage type [id number] kidney injury Qualified Code: N17.9 - Acute renal failure superimposed on chronic kidney disease, unspecified CKD stage, unspecified acute renal failure type Admitting Information Admitting Physician Requests: Observation Condition: Stable Emma Arizmendi Dec 07, 2016 20:43
[2016-12-07] MEDS ORDERED: SODIUM CHLORID 0.9% 500 ML INJ 500 ML IV ONE (20:45)
[2016-12-07 21:00] VITALS: BP 131/67; PULSE 101; RESP 16; O2SAT 97
--- NOTE | 2016-12-07 21:05 | RADRPT ---
EXAM DATE/TIME: 12/07/2016 20:39 [facility] COMPARISON: CT THORAX W/O CONTRAST, September 18, 2016, 17:15. INDICATIONS : Evaluate pleural effusion. RADIATION DOSE: 5.10 CTDIvol (mGy) MEDICAL HISTORY : Cardiovascular disease. Hypertension. Diabetes mellitus type 1. SURGICAL HISTORY : CABG Gastric bypass. ENCOUNTER: Initial ACUITY: 1 day PAIN SCALE: 0/10 LOCATION: chest TECHNIQUE: Volumetric scanning of the chest was performed. Using automated exposure control and adjustment of t he mA and/or kV according to patient size, radiation dose was kept as low as reasonably achievable to obtain optimal diagnostic quality images. DICOM format image data is available electronically for r eview and comparison. Follow-up recommendations for incidentally detected pulmonary nodules are based at a minimum on nodul e size and patient risk factors according to Fleischner Society Guidelines. FINDINGS: Small bilateral pleural effusions are noted. These effusions are smaller from the prior study. A smal l caliber right thoracostomy tube is noted. No discrete infiltrate. The heart is enlarged. Significan t coronary artery and aortic atherosclerotic calcifications. No gross adenopathy on this unenhanced s tudy. A degenerative thoracic spine. Median sternotomy wires. CONCLUSION: 1. Small bilateral pleural effusions which are smaller from the prior study. 2. No discrete infiltrate. 3. Cardiomegaly. 4. Significant coronary artery atherosclerotic calcifications. John Peace Jr., MD on December 07, 2016 at 21:01 Board Certified Radiologist. This report was verified electronically.
[2016-12-07 21:14] LABS: BACTERIA, URINE RARE /hpf; BLOOD, URINE MOD (NEG); COMMENT (UR) CATH-CULTURE IND; CULTURE IF INDICATED CATH CULTURE IND; GLUCOSE,URINE NEG (NEG); HYALINE CAST, URINE 9 /lpf (RARE); KETONE, URINE NEG (NEG); MUCUS URINE FEW /lpf (OCC); NITRITE,URINE NEG (NEG); SQUAMOUS EPITHELIAL CELL URINE 5 /hpf (0-5); URINE COLOR YELLOW (YELLW/STRAW)
[2016-12-07] MEDS ORDERED: NALOXONE HCL 0.4 MG/ML AMP IV PRN (23:00)
[2016-12-07] MEDS ORDERED: SODIUM CHLORIDE 0.9% FLUSH 10 ML FLUSH IV FLUSH PRN (23:00)
[2016-12-07] MEDS ORDERED: ONDANSETRON HCL 4 MG/2 ML VIAL IVP PRN (23:00)
--- NOTE | 2016-12-07 23:23 | HHI.HP ---
[facility] Remigio Lee, DO Admission Diagnosis GI BLEED, UTI Diagnoses: (1) GI bleed Chief Complaint: pleural tube not draining, had blood in stool in ED Travel History International Travel<30 Days: No Contact w/Intl Traveler <30 Da: No Traveled to Known Affected Are: No History of Present Illness Written by Criss Hernandez, acting as scribe for Dr. Nesbitt on 12/07/16 at 23:25. Patient states she was at Dr. Mills office today and pleural tube, which was placed one week ago (usually drains 300 cc bid), had no drainage since Tuesday and also was having pain at tube insertion site. The warehouse consultant was concerned there may be infection and referred her to the ED. The patient had a CABG x 3 in February and states she has had problems ever since including sepsis , pneumonia, and CHF. Denies fever, cough, hemoptysis, shortness of breath, or edema. Has chronic diarrhea - had it today - does not occur every day but seems to occur mostly when nervous - has 4 - 5 bowels per day, denies nausea and vomiting. No known recent antibiotics. Poor appetite and weight loss of 70 pounds in 9 months. While in the emergency department, she felt like she needed to pass gas. There was blood in her underpants and she also had a moderate amount of bright, red, bloody stool including clots according to the patient and RN ONCOLOGY CLINICAL. She is on Xarelto at home for atrial fibrillation. She reports that she was having dizzy spells when the "visiting nurse" came earlier in the week but that has resolved. Denies syncope. Denies dysuria or hematuria. Review of Systems Except as stated in HPI: all other systems reviewed are Neg Past Family Social History Past Medical History Hypothyroidism Coronary artery disease status post stent placement in 2007 and coronary artery bypass graft 01 March 2016 Congestive heart failure Hyperlipidemia Arthritis Diabetes mellitus Atrial fibrillation on Xarelto Hypertension COPD on home oxygen 24 hours a day now GERD Echo w/ EF 50-55% recent JULIANE . Past Surgical History CABG 3 in February 2016 Gastric bypass 2010 Back surgery Bilateral cataract surgery Coronary stent placed 2007 . Reported Medications Reported Meds & Active Scripts Active Lortab (Hydrocodone-Acetaminophen) 7.5-325 Mg Tab 1 Tab PO BID Xarelto (Rivaroxaban) 10 Mg Tab 20 Mg PO DAILY 30 Days Levemir Inj (Insulin Detemir) 1,000 unit/ 10 ML Vial 15 Units SQ HS [address] (Duloxetine HCl) 60 Mg Capdr 60 Mg PO DAILY 30 Days Bumetanide 1 Mg Tab 1 Mg PO DAILY 30 Days Metoprolol Tartrate 25 Mg Tab 25 Mg PO Q12HR Trazodone (Trazodone HCl) 50 Mg Tab 50 Mg PO HS 30 Days Pantoprazole (Pantoprazole Sodium) 40 Mg Tab 40 Mg PO DAILY 30 Days Thera M Plus (Multivitamins/Minerals Therapeutic) 1 Tab 1 Tab PO DAILY 30 Days Aspirin Low Strength (Aspirin) 81 Mg Chew 81 Mg PO DAILY 30 Days Reported Klor-Con 10 (Potassium Chloride) 10 Meq Tab 10 Meq PO HS Hydralazine HCl 25 Mg Tablet 25 Mg PO Q8HR Ergocalciferol 50,000 Unit Cap 50,000 Units PO Q7D ON MONDAYS Xarelto (Rivaroxaban) 20 Mg Tab 20 Mg PO DAILY Atorvastatin (Atorvastatin Calcium) 80 Mg Tab 80 Mg PO HS Diltiazem (Diltiazem HCl) 90 Mg Tab 90 Mg PO Q6 HR Novolog Inj (Insulin Aspart) 1,000 Unit/10 Ml Vial 2-10 Units SQ ACHS Sliding Scale Valtrex (Valacyclovir HCl) 1 Gm Tab 1 Gm PO HS Cyanocobalamin Inj (Cyanocobalamin) 1,000 Mcg/Ml Inj 1,000 Mcg IM EVERY 2 WEEKS Levothyroxine (Levothyroxine Sodium) 150 Mcg Tab 150 Mcg PO DAILY@0600 Fenofibrate 160 Mg Tab 160 Mg PO HS . Allergies: Coded Allergies: Erythromycin (Verified Allergy, Unknown, 12/07/16) Lasix (Verified Allergy, Unknown, 12/07/16) Penicillin (Verified Allergy, Unknown, 12/07/16) *MDRO Multi-Drug Resistant Organism (Verified Adverse Reaction, Unknown, ) 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 - 09/15/2016 & 12/09/16 MRSA (pleural fluid) Active Ordered Medications Current Medications Sodium Chloride (NS 500 ml Inj) 500 ml @ 500 mls/hr BOLUS ONCE IV Last administered on 12/07/16t 21:27; Start 12/07/16 at 20:45; Stop 12/07/16 at 21:44 ; Status DC Sodium Chloride (NS Flush) 2 ml UNSCH PRN IV FLUSH FLUSH AFTER USING IV ACCESS ; Start 12/07/16 at 23:00 Sodium Chloride (NS Flush) 2 ml BID IV FLUSH ; Start 12/08/16 at 09:00 Ondansetron HCl (Zofran Inj) 4 mg Q6H PRN IVP NAUSEA OR VOMITING; Start at 23:00 Naloxone HCl (Narcan Inj) 0.4 mg UNSCH PRN IV SEE LABEL COMMENTS; Start at 23:00 . Family History Father 65 y/o myocardial infarction Mother 83 y/o from complications related to fall, TB, esophageal stricture Brother with bladder cancer, PE Son committed suicide 2 years ago . Social History Tobacco: Quit smoking 30 years ago; smoked 3 ppd previously Alcohol: Denies daily alcohol use Son Mo committed suicide 2 years ago - anniversary of his was about a week ago and she is having a great deal of emotional stress Lives on own and drives . Physical Exam Vital Signs Vital Signs Date Time Temp Pulse Resp B/P Pulse Ox O2 Delivery O2 Flow Rate FiO2 12/07/16 21:00 101 16 131/67 97 Room Air 12/07/16 20:30 88 16 126/70 97 Room Air 12/07/16 17:02 97.8 84 16 89/52 95 Physical Exam GENERAL: This is a thin female elderly patient, in no apparent distress. SKIN: No rashes. Cool and dry. HEAD: Atraumatic. Normocephalic. EYES: No scleral icterus. No injection or drainage. ENT: Nose without bleeding, purulent drainage. NECK: Trachea midline. No JVD or lymphadenopathy. CARDIOVASCULAR: Regular rate and rhythm without murmurs, gallops, or rubs. RESPIRATORY: Clear to auscultation. Breath sounds equal bilaterally. No wheezes , rales, or rhonchi. GASTROINTESTINAL: Abdomen soft, non-tender, nondistended. No guarding. Small amount of bright red mucous discharge noted after patient passed gas bathroom personally seen. MUSCULOSKELETAL: Extremities without clubbing, cyanosis, or edema. No calf tenderness. Tenderness at right pleural catheter insertion site. NEUROLOGICAL: Awake and alert. Motor and sensory grossly within normal limits. Normal speech. . Laboratory Laboratory Tests Test 12/07/16 12/07/16 12/07/16 18:05 20:30 20:55 White Blood Count 13.4 Red Blood Count 3.24 Hemoglobin 8.8 Hematocrit 28.6 Mean Corpuscular Volume 88.3 Mean Corpuscular Hemoglobin 27.2 Mean Corpuscular Hemoglobin 30.8 Concent Red Cell Distribution Width 22.1 Platelet Count 485 Mean Platelet Volume 8.8 Neutrophils (%) (Auto) 87.8 Lymphocytes (%) (Auto) 4.6 Monocytes (%) (Auto) 5.9 Eosinophils (%) (Auto) 1.1 Basophils (%) (Auto) 0.6 Neutrophils # (Auto) 11.7 Lymphocytes # (Auto) 0.6 Monocytes # (Auto) 0.8 Eosinophils # (Auto) 0.1 Basophils # (Auto) 0.1 CBC Comment DIFF FINAL Differential Comment Prothrombin Time 11.6 Prothromb Time International 1.0 Ratio Activated Partial 37.9 Thromboplast Time Sodium Level 135 Potassium Level 3.8 Chloride Level 100 Carbon Dioxide Level 23.4 Anion Gap 12 Blood Urea Nitrogen 43 Creatinine 1.46 Estimat Glomerular Filtration 35 Rate Random Glucose 178 Calcium Level 8.6 Magnesium Level 2.0 Urine Color YELLOW Urine Turbidity HAZY Urine pH 5.0 Urine Specific [place] 1.014 Urine Protein TRACE Urine Glucose (UA) NEG Urine Ketones NEG Urine Occult Blood MOD Urine Nitrite NEG Urine Bilirubin NEG Urine Urobilinogen 2.0 Urine Leukocyte Esterase MOD Urine RBC 6 Urine WBC 5 Urine Squamous Epithelial 5 Cells Urine Amorphous Sediment RARE Urine Bacteria RARE Urine Hyaline Casts 9 Urine Mucus FEW Microscopic Urinalysis Comment CATH-CULTURE IND Lactic Acid Level 1.2 Date/Time Procedure Status Source Growth 12/07/16 20:30 Urine Culture Received Urine Catheterized Urine Pending Result Diagram: 12/07/16180412/07/161804 Imaging Last Impressions Chest X-Ray 12/07/16 [id number] Signed Impressions: Service Date/Time: Wednesday, December 07, 2016 17:58 - CONCLUSION: 1. Tunneled right thoracostomy tube in good position. 2. Either pleural thickening or small volume loculated pleural effusion on the right. 3. Mild cardiomegaly John Peace Jr., MD Chest CT 12/07/16 0000 Signed Impressions: Service Date/Time: Wednesday, December 07, 2016 20:39 - CONCLUSION: 1. Small bilateral pleural effusions which are smaller from the prior study. 2. No discrete infiltrate. 3. Cardiomegaly. 4. Significant coronary artery atherosclerotic calcifications. John Peace Jr., MD . Assessment and Plan Problem List: (1) GI bleed ICD Code: K92.2 Status: Acute Assessment and Plan 76 y/o female who was sent by warehouse consultant for evaluation of suspected malfunctioning pleural tube but had bloody bowel movement while in ED. GI bleed - hold Xarelto - consult gastroenterology - recheck H&H - Type and screen for possible transfusion - check vital signs q4h - continuous cardiac telemetry to monitor for arrhythmia Pleural tube malfunction - CXR shows: tunneled right thoracostomy tube in good position. Either pleural thickening or small volume loculated pleural effusion on the right. Mild cardiomegaly - CT chest shows: small bilateral pleural effusions which are smaller from the prior study. No discrete infiltrate. Cardiomegaly. - consult pulmonology - consult IR DVT prophylaxis - SCDs . This note was transcribed by [email or web address] [Criss Hernandez]. I, Dr. Ty Nesbitt personally performed the history, physical exam, and medical decision making; and confirmed the accuracy of the information in the transcribed note. Authenticated by Dr. Ty Nesbitt on 12/07/16 at 23:25. Code Status DNR/DNI - verified by patient . Discussed Condition With ER physician, patient, and RN . Physician Certification 2 Midnight Certification Type: Admission for Inpatient Services Order for Inpatient Services The services are ordered in accordance with Medicare regulations or non- Medicare payer requirements, as applicable. In the case of services not specified as inpatient-only, they are appropriately provided as inpatient services in accordance with the 2-midnight benchmark. Estimated LOS (days): 3 days is the estimated time the patient will need to remain in the hospital, assuming treatment plan goals are met and no additional complications. Post-Hospital Plan: Home Problem Qualifiers (1) GI bleed: Qualified Code: K92.2 - Gastrointestinal hemorrhage, unspecified gastrointestinal hemorrhage type Criss Hernandez Dec 07, 2016 23:23 Ty eNsbitt MD Dec 29, 2016 00:30
[2016-12-07 23:39] LABS: HEMATOCRIT 26.6 % (35.0-46.0); REVIEW FLAG FINAL
[2016-12-08] VITALS (9 sets, daily range): BP systolic 100–117; BP diastolic 55–75; PULSE 69–98; RESP 16–20; TEMP 97.2–101; O2SAT 91–96
[2016-12-08] MEDS ORDERED: ACETAMINOPHEN/HYDROcodone 325 MG/7.5 MG TAB PO ONE (02:15)
[2016-12-08] MEDS ORDERED: traZODone HCL 50 MG TAB PO ONE (02:15)
[2016-12-08] MEDS: hydrALAZINE HCL 25 MG TAB PO SCH ×3 (06:00→22:00)
[2016-12-08] MEDS: LEVOTHYROXINE SODIUM 150 MCG TAB PO SCH (06:26)
[2016-12-08 07:47] LABS: AUTOMATED NEUTROPHIL # 6.7 TH/MM3 (1.8-7.7); BASOPHIL # 0.1 TH/MM3 (0-0.2); BASOPHIL % 1.4 % (0.0-2.0); EOSINOPHIL # 0.2 TH/MM3 (0-0.4); EOSINOPHIL % 2.6 % (0.0-4.0); HEMATOCRIT 23.4 % (35.0-46.0); HEMO FLAGS DIFF FINAL; LYMPH % 9.1 % (9.0-44.0); LYMPHOCYTE # 0.8 TH/MM3 (1.0-4.8); MEAN CELL VOLUME 87.7 FL (80.0-100.0); MEAN CORPUSCULAR HEMOGLOBIN 28.9 PG (27.0-34.0); MONO % 6.3 % (0.0-8.0); NEUT % 80.6 % (16.0-70.0); PLATELET COUNT 396 TH/MM3 (150-450); RED BLOOD COUNT 2.67 MIL/MM3 (4.00-5.30); RED CELL DISTRIBUTION WIDTH 21.6 % (11.6-17.2); WHITE BLOOD COUNT 8.3 TH/MM3 (4.0-11.0)
[2016-12-08 08:33] LABS: BICARBONATE 27.6 MEQ/L (21.0-32.0); POTASSIUM 3.6 MEQ/L (3.5-5.1)
[2016-12-08] MEDS: RIVAROXABAN 20 MG TAB PO SCH (09:00)
[2016-12-08] MEDS: ACETAMINOPHEN/HYDROcodone 325 MG/7.5 MG TAB PO SCH ×3 (09:00→21:00)
[2016-12-08] MEDS: SODIUM CHLORIDE 0.9% FLUSH 10 ML FLUSH IV FLUSH SCH ×2 (10:11→20:33)
[2016-12-08] MEDS: PANTOPRAZOLE SOD 40 MG DELAYED RELEASE TAB PO SCH (10:11)
[2016-12-08] MEDS: DULoxetine HCl DR 60 MG CAP PO SCH (10:11)
[2016-12-08] MEDS: BUMETANIDE 1 MG TAB PO SCH (10:11)
[2016-12-08] MEDS: METOPROLOL TARTRATE 25 MG TAB PO SCH ×2 (10:11→21:00)
[2016-12-08] MEDS: DILTIAZEM HCL 90 MG TAB PO SCH ×3 (10:12→20:24)
[2016-12-08] MEDS: ASPIRIN 81 MG CHEW TAB PO SCH (10:12)
--- NOTE | 2016-12-08 13:50 | PD.CONS ---
HPI History of Present Illness This is a 76 year old female patient with a history of coronary artery disease, recurrent pleural effusion, and GI bleeding. She reports that she tends to have episodes of rectal bleeding intermittently. She reports that she has had several episodes and that she always gets scoped and they can see that she had been bleeding, but can never determine the exact location of the bleeding. She states this last happened in [place] about 2 years ago, at which time she was evaluated with an egd/colonoscopy. Again, they found old blood, but there was no active bleeding at the time of the endoscopies. She believes that she was told in the past that she had diverticular bleeds. She tells me that she has a history of gastric bypass and then underwent a CABG in February of 2016. Since that time, she has had multiple hospitalizations for complications and that she has lost about 70 lbs since that time. More recently, she has been having problems with recurrent left sided pleural effusions and is followed by Dr. Barger. She was requiring frequent thoracentesis, but states that she recently had a pleural catheter because of her requiring anticoagulation and so that she could drain this as needed at home. She was sent to IR yesterday for them to evaluate the tube and check for infection. She was seen in invasive radiology yesterday to have her drainage catheter evaluated. She was actually betting ready to go home when she had the sudden urge to move her bowels and passed a large amount of red blood and blood clots (no stool) and therefore was admitted for further evaluation and treatment. She is currently in no distress. She has not had any further bleeding. She denies any nausea, vomiting, abdominal pain. She does have reflux, but states that this is well controlled with Protonix at home. PFSH Past Medical History Hypothyroidism Coronary artery disease, S/P CABG Congestive heart failure Hyperlipidemia Arthritis Diabetes mellitus Atrial fibrillation on Xarelto Hypertension COPD on home oxygen 24 hours a day now GERD Recent JULIANE Recurrent pleural effusion Recurrent GIB, ? diverticular. Past Surgical History CABG 3 in February 2016 Gastric bypass 2010 Back surgery Bilateral cataract surgery Coronary stent placed 2007 Pleural catheter placement Multiple thoracentesis Coded Allergies: Erythromycin (Verified Allergy, Unknown, 12/07/16) Lasix (Verified Allergy, Unknown, 12/07/16) Penicillin (Verified Allergy, Unknown, 12/07/16) *MDRO Multi-Drug Resistant Organism (Verified Adverse Reaction, Unknown, ) 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 - 09/15/2016 Medications Allergies Coded Allergies Type Severity Reaction Last Updated Verified Erythromycin Allergy Unknown 12/07/16 Yes Lasix Allergy Unknown 12/07/16 Yes Penicillin Allergy Unknown 12/07/16 Yes *MDRO Multi-Drug Resistant Organism Adverse Reaction Unknown 12/07/16 Yes Active Scripts Medications Dose Route/Sig Days Date Category Dose Instructions Lortab (Hydrocodone-Acetaminophen) 7.5-325 Mg Tab 1 Tab PO BID 11/29/16 Rx Xarelto (Rivaroxaban) 10 Mg Tab 20 Mg PO DAILY 30 11/29/16 Rx Levemir Inj (Insulin Detemir) 1,000 unit/ 10 ML Vial 15 Units SQ HS 30 11/29/[address] (Duloxetine HCl) 60 Mg Capdr 60 Mg PO DAILY 30 11/29/16 Rx Bumetanide 1 Mg Tab 1 Mg PO DAILY 30 11/29/16 Rx Klor-Con 10 (Potassium Chloride) 10 Meq Tab 10 Meq PO HS 11/22/16 Reported Hydralazine HCl 25 Mg Tablet 25 Mg PO Q8HR 11/22/16 Reported Ergocalciferol 50,000 Unit Cap 50,000 Units PO Q7D ON Mondays11/22/16 Reported Xarelto (Rivaroxaban) 20 Mg Tab 20 Mg PO DAILY 11/22/16 Reported Atorvastatin (Atorvastatin Calcium) 80 Mg Tab 80 Mg PO HS 11/22/16 Reported Metoprolol Tartrate 25 Mg Tab 25 Mg PO Q12HR 09/22/16 Rx Diltiazem (Diltiazem HCl) 90 Mg Tab 90 Mg PO Q6 HR 06/11/16 Reported Novolog Inj (Insulin Aspart) 1,000 Unit/10 Ml Vial 2-10 Units SQ ACHS 05/19/16 Reported Sliding Scale Valtrex (Valacyclovir HCl) 1 Gm Tab 1 Gm PO HS 05/19/16 Reported Cyanocobalamin Inj (Cyanocobalamin) 1,000 Mcg/Ml Inj 1,000 Mcg IM EVERY 2 WEEKS 05/19/16 Reported Trazodone (Trazodone HCl) 50 Mg Tab 50 Mg PO HS 30 04/06/16 Rx Pantoprazole (Pantoprazole Sodium) 40 Mg Tab 40 Mg PO DAILY 30 04/06/16 Rx Thera M Plus (Multivitamins/Minerals Therapeutic) 1 Tab 1 Tab PO DAILY 30 04/06/16 Rx Aspirin Low Strength (Aspirin) 81 Mg Chew 81 Mg PO DAILY 30 04/06/16 Rx Levothyroxine (Levothyroxine Sodium) 150 Mcg Tab 150 Mcg PO DAILY@0600 03/28/16 Reported Fenofibrate 160 Mg Tab 160 Mg PO HS 03/28/16 Reported Family History Father heart disease, from myocardial infarction Mother 83 y/o from complications related to fall, did have history TB, esophageal stricture Brother with bladder cancer, PE Son committed suicide 2 years ago Social History Quit smoking 30 years ago; smoked 3 ppd previously Denies daily alcohol use Son Mo committed suicide 2 years ago - anniversary of his was about a week ago and she is having a great deal of emotional stress Review of Systems Constitutional: COMPLAINS OF: Fatigue, Weight loss, DENIES: Change in appetite Respiratory: COMPLAINS OF: Shortness of breath, DENIES: Cough Cardiovascular: COMPLAINS OF: Chest pain Gastrointestinal: COMPLAINS OF: Bloody stools (rectal bleeding), Heartburn, DENIES: Abdominal pain, Black stools, Constipation, Diarrhea, Nausea, Vomiting, Hematemesis Integumentary: DENIES: Abnormal pigmentation Hematologic/lymphatic: DENIES: Bruising Neurologic: DENIES: Abnormal gait Psychiatric: DENIES: Confusion GI Exam Vitals I&O Vital Signs Date Time Temp Pulse Resp B/P Pulse Ox O2 Delivery O2 Flow Rate FiO2 12/08/16 11:58 97.2 79 16 111/57 96 12/08/16 08:00 98.3 93 18 117/67 95 12/08/16 04:00 91 12/08/16 04:00 98.0 98 18 112/59 94 12/08/16 01:00 97.9 88 17 113/75 96 12/07/16 21:00 101 16 131/67 97 Room Air 12/07/16 20:30 88 16 126/70 97 Room Air 12/07/16 17:02 97.8 84 16 89/52 95 Imaging Last Impressions Chest X-Ray 12/07/16 [id number] Signed Impressions: Service Date/Time: Wednesday, December 07, 2016 17:58 - CONCLUSION: 1. Tunneled right thoracostomy tube in good position. 2. Either pleural thickening or small volume loculated pleural effusion on the right. 3. Mild cardiomegaly John Peace Jr., MD Chest CT 12/07/16 0000 Signed Impressions: Service Date/Time: Wednesday, December 07, 2016 20:39 - CONCLUSION: 1. Small bilateral pleural effusions which are smaller from the prior study. 2. No discrete infiltrate. 3. Cardiomegaly. 4. Significant coronary artery atherosclerotic calcifications. John Peace Jr., MD Laboratory Test 12/07/16 12/07/16 12/07/16 12/07/16 18:05 20:30 20:55 23:15 White Blood Count 13.4 TH/MM3 Red Blood Count 3.24 MIL/MM3 Hemoglobin 8.8 GM/DL 8.6 GM/DL Hematocrit 28.6 % 26.6 % Mean Corpuscular Volume 88.3 FL Mean Corpuscular Hemoglobin 27.2 PG Mean Corpuscular Hemoglobin 30.8 % Concent Red Cell Distribution Width 22.1 % Platelet Count 485 TH/MM3 Mean Platelet Volume 8.8 FL Neutrophils (%) (Auto) 87.8 % Lymphocytes (%) (Auto) 4.6 % Monocytes (%) (Auto) 5.9 % Eosinophils (%) (Auto) 1.1 % Basophils (%) (Auto) 0.6 % Neutrophils # (Auto) 11.7 TH/MM3 Lymphocytes # (Auto) 0.6 TH/MM3 Monocytes # (Auto) 0.8 TH/MM3 Eosinophils # (Auto) 0.1 TH/MM3 Basophils # (Auto) 0.1 TH/MM3 CBC Comment DIFF FINAL Differential Comment Prothrombin Time 11.6 SEC Prothromb Time International 1.0 RATIO Ratio Activated Partial 37.9 SEC Thromboplast Time Sodium Level 135 MEQ/L Potassium Level 3.8 MEQ/L Chloride Level 100 MEQ/L Carbon Dioxide Level 23.4 MEQ/L Anion Gap 12 MEQ/L Blood Urea Nitrogen 43 MG/DL Creatinine 1.46 MG/DL Estimat Glomerular Filtration 35 ML/MIN Rate Random Glucose 178 MG/DL Calcium Level 8.6 MG/DL Magnesium Level 2.0 MG/DL Urine Color YELLOW Urine Turbidity HAZY Urine pH 5.0 Urine Specific [place] 1.014 Urine Protein TRACE mg/dL Urine Glucose (UA) NEG mg/dL Urine Ketones NEG mg/dL Urine Occult Blood MOD Urine Nitrite NEG Urine Bilirubin NEG Urine Urobilinogen 2.0 MG/DL Urine Leukocyte Esterase MOD Urine RBC 6 /hpf Urine WBC 5 /hpf Urine Squamous Epithelial 5 /hpf Cells Urine Amorphous Sediment RARE Urine Bacteria RARE /hpf Urine Hyaline Casts 9 /lpf Urine Mucus FEW /lpf Microscopic Urinalysis Comment CATH-CULTURE IND Lactic Acid Level 1.2 mmol/L Blood Type A POSITIVE Antibody Screen NEGATIVE Test 12/08/16 12/08/16 12/08/16 06:30 07:02 10:50 White Blood Count 8.3 TH/MM3 Red Blood Count 2.67 MIL/MM3 Hemoglobin 7.7 GM/DL Hematocrit 23.4 % Mean Corpuscular Volume 87.7 FL Mean Corpuscular Hemoglobin 28.9 PG Mean Corpuscular Hemoglobin 33.0 % Concent Red Cell Distribution Width 21.6 % Platelet Count 396 TH/MM3 Mean Platelet Volume 8.4 FL Neutrophils (%) (Auto) 80.6 % Lymphocytes (%) (Auto) 9.1 % Monocytes (%) (Auto) 6.3 % Eosinophils (%) (Auto) 2.6 % Basophils (%) (Auto) 1.4 % Neutrophils # (Auto) 6.7 TH/MM3 Lymphocytes # (Auto) 0.8 TH/MM3 Monocytes # (Auto) 0.5 TH/MM3 Eosinophils # (Auto) 0.2 TH/MM3 Basophils # (Auto) 0.1 TH/MM3 CBC Comment DIFF FINAL Differential Comment Sodium Level 138 MEQ/L Potassium Level 3.6 MEQ/L Chloride Level 104 MEQ/L Carbon Dioxide Level 27.6 MEQ/L Anion Gap 6 MEQ/L Blood Urea Nitrogen 40 MG/DL Creatinine 1.17 MG/DL Estimat Glomerular Filtration 45 ML/MIN Rate Random Glucose 121 MG/DL Calcium Level 8.6 MG/DL Blood Type A POSITIVE Crossmatch Leukocyte-Reduced Red Blood Cells Blood Bank Comment Date/Time Procedure Status Source Growth 12/07/16 20:30 Urine Culture Received Urine Catheterized Urine Pending Physical Examination HEENT: Normocephalic; atraumatic; no jaundice. CHEST: CTA, diminished. Right pleural catheter clamped. CARDIAC: RRR. ABDOMEN: Soft, nondistended, nontender; no hepatosplenomegaly; bowel sounds are present in all four quadrants. EXTREMITIES: No clubbing, cyanosis, or edema. SKIN: Normal; no rash; no jaundice. TRAFFIC MAINTENANCE OFFICER: No focal deficits; alert and oriented times three. Assessment and Plan Plan ASSESSMENT: - Rectal bleeding, ? Diverticular. Has hx of lower GI bleeds in the past- Last time 2 years ago in [place]. States she had egd/colonoscopy at that time and they could tell that she was recently bleeding, but could not find the source. She believes that she was told that it was diverticular. She has not had any episodes since that time until yesterday, when she had the sudden urge to move her bowels and had a large amount of rectal bleeding with red blood and clots/no stool. No abdominal pain, n/v. She has not had any further episodes. Xarelto is ordered, but she refused today's dose. .12/19.. - Abn. Wt. Loss 70 lbs since February of 2016. She has hx of gastric bypass and then had CABG in February of 2016. She has since had multiple hospitalizations for complications and has lost 70 lbs. She states that her weight is now stable and that she denies any decreased appetite. - GERD. Controlled at home with PPI. Last EGD about 2 years ago in [place]. - Recurrent pleural effusion. Has pleural catheter in place (secondary to requiring frequent thoracentesis and being on Xarelto). Sees Dr. Barger as outpatient. - HTN, COPD, Hypothyroidism, CAD per primary PLAN: - Plan for EGD/Colonoscopy on Tuesday - Obtain consents - Clear liquids - NPO after MN night - Golytely prep - Hold Xarelto - Monitor HH - Transfuse as necessary - Supportive care - Further recommendations to follow based on results of above - Pt seen and examined by Dr. Cui and myself and this note is written on his behalf Deborah Gamble Dec 08, 2016 13:50
--- NOTE | 2016-12-08 14:46 | HHI.PR ---
Subjective Remarks very spunky lady here yesterday to get her pleural catheter checked for obstruction or leakage - none as about to discharge- painless rectal bleeding states prior to this stools- valero brown Objective Vitals Vital Signs Date Time Temp Pulse Resp B/P Pulse Ox O2 Delivery O2 Flow Rate FiO2 12/08/16 11:58 97.2 79 16 111/57 96 12/08/16 08:00 98.3 93 18 117/67 95 12/08/16 04:00 91 12/08/16 04:00 98.0 98 18 112/59 94 12/08/16 01:00 97.9 88 17 113/75 96 12/07/16 21:00 101 16 131/67 97 Room Air 12/07/16 20:30 88 16 126/70 97 Room Air 12/07/16 17:02 97.8 84 16 89/52 95 Result Diagram: 12/08/16 0630 12/08/16 0702 A/P Problem List: (1) GI bleed ICD Code: K92.2 Status: Acute Assessment and Plan 76 y/o female who was sent by public health internship for evaluation of suspected malfunctioning pleural tube but had bloody bowel movement while in ED. GI bleed - hold Xarelto - consult gastroenterology - recheck H&H - Type and screen for possible transfusion - check vital signs q4h - continuous cardiac telemetry to monitor for arrhythmia Pleural tube malfunction - CXR shows: tunneled right thoracostomy tube in good position. Either pleural thickening or small volume loculated pleural effusion on the right. Mild cardiomegaly - CT chest shows: small bilateral pleural effusions which are smaller from the prior study. No discrete infiltrate. Cardiomegaly. - consult pulmonology - consult IR DVT prophylaxis - SCDs . Code Status DNR/DNI - verified by patient . Problem Qualifiers (1) GI bleed: Qualified Code: K92.2 - Gastrointestinal hemorrhage, unspecified gastrointestinal hemorrhage type Kortney Cee MD Dec 08, 2016 14:46
[2016-12-08 17:10] LABS: TRANSFERRIN IRON PROFILE 155 MG/DL (200-360)
[2016-12-08 17:13] LABS: FERRITIN 70 NG/ML (8-252)
[2016-12-08] MEDS ORDERED: GLUCAGON 1 MG/ML VIAL OTHER PRN (17:15)
[2016-12-08] MEDS ORDERED: DEXTROSE 50% IN WATER 50 ML VIAL(D50) IV PUSH PRN (17:15)
[2016-12-08] MEDS: LOW DOSE INSULIN NOVOLOG SUPPLEMENTAL SCALE SQ SCH ×2 (17:30→20:23)
[2016-12-08] MEDS: POTASSIUM CHLORIDE 10 MEQ CONTROLLED RELEASE TAB PO SCH (20:24)
[2016-12-08] MEDS: valACYclovir HCL 500 MG TAB PO SCH (20:24)
[2016-12-08] MEDS: traZODone HCL 50 MG TAB PO SCH (20:24)
[2016-12-08] MEDS: ATORVASTATIN 80 MG TAB PO SCH (20:25)
[2016-12-08] MEDS: FENOFIBRATE 145 MG TAB PO SCH (20:30)
[2016-12-08] MEDS ORDERED: INSULIN DETEMIR 100 UNITS/ML VIAL SQ SCH (21:00)
[2016-12-09] VITALS: BP 97/52; PULSE 66; PULSE 72; RESP 17; TEMP 99.1; O2SAT 93
[2016-12-09 04:00] VITALS: BP 101/56; PULSE 76; RESP 17; TEMP 99.1; O2SAT 94
[2016-12-09] MEDS: LEVOTHYROXINE SODIUM 150 MCG TAB PO SCH (04:04)
[2016-12-09] MEDS: DILTIAZEM HCL 90 MG TAB PO SCH ×2 (04:04→07:59)
[2016-12-09] MEDS: LOW DOSE INSULIN NOVOLOG SUPPLEMENTAL SCALE SQ SCH ×4 (05:24→21:00)
[2016-12-09] MEDS: hydrALAZINE HCL 25 MG TAB PO SCH ×3 (05:24→21:18)
[2016-12-09 07:09] LABS: AUTOMATED NEUTROPHIL # 18.7 TH/MM3 (1.8-7.7); BASOPHIL # 0.2 TH/MM3 (0-0.2); BASOPHIL % 0.8 % (0.0-2.0); EOSINOPHIL # 0.1 TH/MM3 (0-0.4); EOSINOPHIL % 0.6 % (0.0-4.0); HEMATOCRIT 33.3 % (35.0-46.0); HEMO FLAGS DIFF FINAL; LYMPHOCYTE # 0.6 TH/MM3 (1.0-4.8); MEAN CELL VOLUME 85.3 FL (80.0-100.0); MEAN CORPUSCULAR HEMOGLOBIN 28.6 PG (27.0-34.0); MEAN CORPUSCULAR HGB CONC 33.6 % (32.0-36.0); NEUT % 90.6 % (16.0-70.0); PLATELET COUNT 448 TH/MM3 (150-450); RED CELL DISTRIBUTION WIDTH 18.9 % (11.6-17.2); WHITE BLOOD COUNT 20.7 TH/MM3 (4.0-11.0)
[2016-12-09] MEDS: METOPROLOL TARTRATE 25 MG TAB PO SCH ×2 (07:56→21:00)
[2016-12-09] MEDS: BUMETANIDE 1 MG TAB PO SCH (07:57)
[2016-12-09] MEDS: SODIUM CHLORIDE 0.9% FLUSH 10 ML FLUSH IV FLUSH SCH ×2 (07:57→21:00)
[2016-12-09] MEDS: DULoxetine HCl DR 60 MG CAP PO SCH (07:57)
[2016-12-09] MEDS: PANTOPRAZOLE SOD 40 MG DELAYED RELEASE TAB PO SCH (07:57)
[2016-12-09] MEDS: ASPIRIN 81 MG CHEW TAB PO SCH (07:57)
[2016-12-09] MEDS: ACETAMINOPHEN/HYDROcodone 325 MG/7.5 MG TAB PO SCH ×3 (07:59→21:20)
[2016-12-09 08:00] VITALS: BP 97/52; PULSE 76; RESP 20; TEMP 97.4; O2SAT 95
[2016-12-09 10:42] LABS: ALKALINE PHOSPHATASE 125 U/L (45-117); ALT (GPT) 68 U/L (10-53); ANION GAP 12 MEQ/L (5-15); AST (GOT) 40 U/L (15-37); BICARBONATE 25.4 MEQ/L (21.0-32.0); BLOOD UREA NITROGEN 43 MG/DL (7-18); CHLORIDE 97 MEQ/L (98-107); GLOMERULAR FILTRATION RATE 32 ML/MIN (>89); POTASSIUM 3.8 MEQ/L (3.5-5.1); SODIUM (NA) 134 MEQ/L (136-145); TOTAL BILIRUBIN ADULT 1.4 MG/DL (0.2-1.0)
[2016-12-09 12:00] VITALS: BP 104/63; PULSE 66; RESP 20; TEMP 96.7; O2SAT 95
[2016-12-09] MEDS ORDERED: Vancomycin Consult Pharmacy 1 EA OTHER SCH (12:15)
--- NOTE | 2016-12-09 12:21 | HHI.PR ---
Subjective Remarks T max 101 last evening, minimal pain- discomfort - tube draining last 75 cc cloudy fluid no nausea or vomiting Objective Vitals Vital Signs Date Time Temp Pulse Resp B/P Pulse Ox O2 Delivery O2 Flow Rate FiO2 12/09/16 08:00 97.4 76 20 97/52 95 12/09/16 04:00 99.1 76 17 101/56 94 12/09/16 00:00 99.1 66 17 97/52 93 12/09/16 00:00 72 12/08/16 21:00 95 12/08/16 20:00 101.0 73 17 106/57 91 12/08/16 20:00 73 12/08/16 18:30 98.6 69 16 102/59 93 12/08/16 15:33 99.2 83 16 100/55 92 12/08/16 15:31 99.2 83 20 100/55 92 I/O 12/08/16 12/08/16 12/08/16 12/09/16 12/09/16 12/09/16 07:00 15:00 23:00 07:00 15:00 23:00 Intake Total 1000 ml Output Total 50 ml Balance 1000 ml -50 ml Intake Packed Cells 1000 ml Output Drainage Total 50 ml # Voids 2 2 Result Diagram: 12/09/16 0621 12/09/16 0835 Imaging Last Impressions Chest X-Ray 12/07/16 1728 Signed Impressions: Service Date/Time: Wednesday, December 07, 2016 17:58 - CONCLUSION: 1. Tunneled right thoracostomy tube in good position. 2. Either pleural thickening or small volume loculated pleural effusion on the right. 3. Mild cardiomegaly John Peace Jr., MD Chest CT 12/07/16 0000 Signed Impressions: Service Date/Time: Wednesday, December 07, 2016 20:39 - CONCLUSION: 1. Small bilateral pleural effusions which are smaller from the prior study. 2. No discrete infiltrate. 3. Cardiomegaly. 4. Significant coronary artery atherosclerotic calcifications. John Peace Jr., MD Objective Remarks awake and alert, NAD anicteric lungs- decreased breath sounds right base, no rales, catheter in place right abdomen-soft, nontender extremities no edema A/P Problem List: (1) GI bleed ICD Code: K92.2 Status: Acute Assessment and Plan 76 y/o female who was sent by social studies department chair for evaluation of suspected malfunctioning pleural tube but had bloody bowel movement while in ED. GI bleed- no further episodes - Xarelto on hold . S/P 2 units RBC. H and H up - GI- ff - for scope Tuesday - ff CBC - vitals stable - continuous cardiac telemetry to monitor for arrhythmia History of A. fib -on BB + CCB- decrease cardizem to 60 mg po q 6. - Xarelto held due to GIB Sepsis- Pleural tube malfunction with - Empyema- Gram + cocci in pleural fluid. T max 101 Leukocytosis- WBC up - CXR shows: tunneled right thoracostomy tube in good position. Either pleural thickening or small volume loculated pleural effusion on the right. Mild cardiomegaly - CT chest shows: small bilateral pleural effusions which are smaller from the prior study. No discrete infiltrate. Cardiomegaly. - Pulmonary ff. - Start IV Vancomycin- consult pharmacy. ID consult Acute on CKI -gentle IVF- 60 cc/hr - DC bumex DM, insulin requiring- erratic readings. - -sliding scale- for now- hold Levemir - D5NS history of hypothyroidism- on synthroid DVT prophylaxis - SCDs . Code Status DNR/DNI - verified by patient . Problem Qualifiers (1) GI bleed: Qualified Code: K92.2 - Gastrointestinal hemorrhage, unspecified gastrointestinal hemorrhage type Kortney Cee MD Dec 09, 2016 12:21
--- NOTE | 2016-12-09 12:22 | HHI.GIFU ---
Subjective Remarks Up in chair. No n/v. No abdominal pain. She has not had any further episodes of rectal bleeding. Objective Vitals I&O Vital Signs Date Time Temp Pulse Resp B/P Pulse Ox O2 Delivery O2 Flow Rate FiO2 12/09/16 08:00 97.4 76 20 97/52 95 12/09/16 04:00 99.1 76 17 101/56 94 12/09/16 00:00 99.1 66 17 97/52 93 12/09/16 00:00 72 12/08/16 21:00 95 12/08/16 20:00 101.0 73 17 106/57 91 12/08/16 20:00 73 12/08/16 18:30 98.6 69 16 102/59 93 12/08/16 15:33 99.2 83 16 100/55 92 12/08/16 15:31 99.2 83 20 100/55 92 I/O 12/08/16 12/08/16 12/08/16 12/09/16 12/09/16 12/09/16 07:00 15:00 23:00 07:00 15:00 23:00 Intake Total 1000 ml Output Total 50 ml Balance 1000 ml -50 ml Intake Packed Cells 1000 ml Output Drainage Total 50 ml # Voids 2 2 Laboratory Laboratory Tests Test 12/09/16 12/09/16 12/09/16 04:15 06:21 08:35 Nasal Screen MRSA (PCR) MRSA DETECTED White Blood Count 20.7 Red Blood Count 3.90 Hemoglobin 11.2 Hematocrit 33.3 Mean Corpuscular Volume 85.3 Mean Corpuscular Hemoglobin 28.6 Mean Corpuscular Hemoglobin 33.6 Concent Red Cell Distribution Width 18.9 Platelet Count 448 Mean Platelet Volume 8.6 Neutrophils (%) (Auto) 90.6 Lymphocytes (%) (Auto) 3.0 Monocytes (%) (Auto) 5.0 Eosinophils (%) (Auto) 0.6 Basophils (%) (Auto) 0.8 Neutrophils # (Auto) 18.7 Lymphocytes # (Auto) 0.6 Monocytes # (Auto) 1.0 Eosinophils # (Auto) 0.1 Basophils # (Auto) 0.2 CBC Comment DIFF FINAL Differential Comment Sodium Level 134 Potassium Level 3.8 Chloride Level 97 Carbon Dioxide Level 25.4 Anion Gap 12 Blood Urea Nitrogen 43 Creatinine 1.58 Estimat Glomerular Filtration 32 Rate Random Glucose 39 Calcium Level 9.0 Total Bilirubin 1.4 Aspartate Amino Transf 40 (AST/SGOT) Alanine Aminotransferase 68 (ALT/SGPT) Alkaline Phosphatase 125 Total Protein 6.4 Albumin 2.0 Date/Time Procedure Status Source Growth 12/09/16 06:27 Aerobic Blood Culture Received Blood Peripheral Pending 12/09/16 06:27 Anaerobic Blood Culture Received Blood Peripheral Pending 12/09/16 04:15 Gram Stain Received Fluid Pleural Fluid Pending 12/09/16 04:15 Body Fluid Culture Received Fluid Pleural Fluid Pending 12/09/16 04:13 Gram Stain - Final Resulted Fluid Pleural Fluid 12/09/16 04:13 Body Fluid Culture Resulted Fluid Pleural Fluid Pending 12/07/16 20:30 Urine Culture - Preliminary Resulted Urine Catheterized Urine IMMATURE GROWTH - REINCUBATE Imaging Last Impressions Chest X-Ray 12/07/16 1728 Signed Impressions: Service Date/Time: Wednesday, December 07, 2016 17:58 - CONCLUSION: 1. Tunneled right thoracostomy tube in good position. 2. Either pleural thickening or small volume loculated pleural effusion on the right. 3. Mild cardiomegaly John Peace Jr., MD Chest CT 12/07/16 0000 Signed Impressions: Service Date/Time: Wednesday, December 07, 2016 20:39 - CONCLUSION: 1. Small bilateral pleural effusions which are smaller from the prior study. 2. No discrete infiltrate. 3. Cardiomegaly. 4. Significant coronary artery atherosclerotic calcifications. John Peace Jr., MD Physical Exam HEENT: Normocephalic; atraumatic; no jaundice. CHEST: CTA, diminished. Right pleural catheter clamped. CARDIAC: RRR. ABDOMEN: Soft, nondistended, nontender; no hepatosplenomegaly; bowel sounds are present in all four quadrants. EXTREMITIES: No clubbing, cyanosis, or edema. SKIN: Normal; no rash; no jaundice. TRACK INSPECTOR: No focal deficits; alert and oriented times three. Assessment and Plan Plan ASSESSMENT: - Rectal bleeding, ? Diverticular. Has hx of lower GI bleeds in the past- Last time 2 years ago in [place]. States she had egd/colonoscopy at that time and they could tell that she was recently bleeding, but could not find the source. She believes that she was told that it was diverticular. She has not had any episodes since that time until yesterday, when she had the sudden urge to move her bowels and had a large amount of rectal bleeding with red blood and clots/no stool. No abdominal pain, n/v. She has not had any further episodes. Xareltois on hold. S/P 2 units of PRBC. HH 11.2/33.2. - Abn. Wt. Loss 70 lbs since February of 2016. She has hx of gastric bypass and then had CABG in February of 2016. She has since had multiple hospitalizations for complications and has lost 70 lbs. She states that her weight is now stable and that she denies any decreased appetite. EGD/Colonoscopy in am. - GERD. Controlled at home with PPI. Last EGD about 2 years ago in [place]. - Recurrent pleural effusion. Has pleural catheter in place (secondary to requiring frequent thoracentesis and being on Xarelto). Sees Dr. Barger as outpatient. - HTN, COPD, Hypothyroidism, CAD per primary PLAN: - Plan for EGD/Colonoscopy tomorrow - Obtain consents - Clear liquids - NPO after MN - Golytely prep - Hold Xarelto - Monitor HH - Transfuse as necessary - Supportive care - Further recommendations to follow based on results of above - Pt seen and examined by Dr. Cui and myself and this note is written on his behalf Deborah Gamble Dec 09, 2016 12:22
[2016-12-09] MEDS: DEXTROSE 5% IN WATE 1000ML INJ 1,000 ML IV SCH (12:30)
[2016-12-09] MEDS: VANCOMYCIN 1,000 MG/NS 250 ML IV SCH ×2 (14:44)
[2016-12-09] MEDS: DILTIAZEM HCL 60 MG TAB PO SCH ×2 (14:50→21:18)
[2016-12-09] MEDS ORDERED: DILTIAZEM HCL 60 MG TAB PO SCH (15:00)
[2016-12-09] MEDS ORDERED: PEG (High)/E-LYTE SOLN 4000 ML BTL PO ONE (16:00)
[2016-12-09 16:51] VITALS: BP 115/74; PULSE 67; RESP 20; TEMP 96.7; O2SAT 97
--- NOTE | 2016-12-09 17:24 | MB ---
cc: JELENA MOROCHO MD DATE OF CONSULTATION 12/09/[address] Cee REASON FOR CONSULTATION Chronic pleural effusion with MRSA. Tunnel catheter draining cloudy fluid and peripheral white blood cell count up to 20,000. HISTORY OF PRESENT ILLNESS This is a 76-year-old white female who has a tunnel catheter into the right chest for drainage of chronic pleural effusion. The catheter was placed approximately a week and a half ago. The patient was having recurrent pleural effusions which began after coronary artery bypass graft surgery in February 2016. She was having multiple thoracenteses and after that the tunnel catheter was placed because of continuous need for drainage. The patient was sent to the emergency department to have the tunnel catheter examined because it stopped draining for about 3 days. She was seen in the emergency department on 12/07/2016. The patient was being observed and during the stay at the emergency department she had bright red blood per rectum and was subsequently admitted to the hospital. CT scan of the chest on 12/07 showed small bilateral pleural effusions which was smaller than that of prior study. The patient notes that the fluid coming from the catheter was bright yellow. A culture was taken. The culture is pending. The gram stain showed moderate gram-positive cocci in pairs and clusters. She was started on IV vancomycin. Her white count climbed from 8.3 to 20.7 today. On admission the white count was 13.4, before it increased to 8.3. She notes pain in the area where the catheter exits the chest. Otherwise, she has no complaints. She denies shortness of breath, chills or abdominal pain. She is currently afebrile. Maximum temperature was 101 degrees yesterday evening. Blood cultures were taken this morning and the results are pending. The patient currently is comfortable. There is very little drainage coming from the catheter and it has a thomson pea soup color. PAST MEDICAL HISTORY Hypothyroidism, congestive heart failure, diabetes mellitus, hypertension, atrial fibrillation, COPD, gastroesophageal reflux disease, coronary disease, bypass graft February 2016, gastric bypass 2009, back surgery, bilateral cataract surgery, coronary stent in 2007. ALLERGIES PENICILLIN. ERYTHROMYCIN. LASIX. MEDICATIONS 1. Vancomycin. 2. Lipitor. 3. Trazodone. 4. Potassium. 5. Valtrex. 6. Tricor. 7. Aspirin. 8. Cymbalta. 9. Hatteras 7.5. 10. Lopressor. 11. Protonix. 12. Apresoline. 13. Synthroid. SOCIAL HISTORY No tobacco. Rare alcohol. No illicit drugs. FAMILY HISTORY Noncontributory. REVIEW OF SYSTEMS Negative on 10-point review except for mild chest pain. PHYSICAL EXAMINATION GENERAL: This is a pleasant thin female in no acute distress. She is awake and alert and oriented. VITAL SIGNS: Temperature 96.7, BP 104/63, respirations 20, heart rate 66. HEENT: Extraocular movements grossly intact, pupils reactive to light. No icterus. Oropharynx moist mucosa without lesions. NECK: Supple without adenopathy. LUNGS: Has clear breath sounds bilateral. The chest right lateral chest has a catheter which exits the thorax and has approximately 15 cc of fluid draining into the catheter bag. ABDOMEN: Bowel sounds present, soft, nontender. RECTAL: Not performed. EXTREMITIES: No clubbing, cyanosis or edema. SKIN: No rash. The skin appears pale daily. NEURO: Nonfocal. PSYCH: Patient pleasant, calm and cooperative. LABORATORY DATA WBC 20.7, 90% neutrophils, platelets 448, hemoglobin 11.2, creatinine 1.58, BUN 43, estimated GFR of 32, AST 40, ALT 68, alk phos 125. Urine culture mixed shaw. IMPRESSION Chronic pleural effusion. Culture of the fluid is pending. However, the gram stain has gram-positive cocci in pairs and clusters. Patient with fever and leukocytosis and likely has infected pleural effusion. RECOMMENDATIONS 1. Continue vancomycin but the dose needs to be adjusted for renal function since the patient has acute on chronic kidney disease. 2. Monitor the cultures. The patient has mixed bacteria in the urine and therefore does not appear to have urinary tract infection at this time. Thank you for this consultation. The patient's progress will be monitored and further recommendations will be given upon followup. Jelena Morocho MD FD/AKIL /4:52 PM /5:10 PM ELIZABETH
--- NOTE | 2016-12-09 17:47 | HHI.PR ---
Subjective Remarks 76 YOWF with CAD,s/p CABG, recurrent pl eff, Rectal bleed has Pleurex cathetor Pl fluid showes gram pos cocci Has fever Objective Vital Signs Vital Signs Date Time Temp Pulse Resp B/P Pulse Ox O2 Delivery O2 Flow Rate FiO2 12/09/16 16:51 96.7 67 20 115/74 97 12/09/16 12:00 96.7 66 20 104/63 95 12/09/16 08:00 97.4 76 20 97/52 95 12/09/16 04:00 99.1 76 17 101/56 94 12/09/16 00:00 99.1 66 17 97/52 93 12/09/16 00:00 72 12/08/16 21:00 95 12/08/16 20:00 101.0 73 17 106/57 91 12/08/16 20:00 73 12/08/16 18:30 98.6 69 16 102/59 93 I/O 12/08/16 12/08/16 12/08/16 12/09/16 12/09/16 12/09/16 07:00 15:00 23:00 07:00 15:00 23:00 Intake Total 1000 ml 360 ml Output Total 50 ml Balance 1000 ml -50 ml 360 ml Intake Oral 360 ml Packed Cells 1000 ml Output Drainage Total 50 ml # Voids 2 2 2 Result Diagram: 12/09/16 0621 12/09/16 0835 Objective Remarks GENERAL: MBMN WF, mild sob SKIN: Warm and dry. HEAD: Normocephalic. EYES: No scleral icterus. No injection or drainage. NECK: Supple, trachea midline. No JVD or lymphadenopathy. CARDIOVASCULAR: Regular rate and rhythm without murmurs, gallops, or rubs. RESPIRATORY: Breath sounds equal bilaterally. No accessory muscle use. Right pleurex cathetor draining GASTROINTESTINAL: Abdomen soft, non-tender, nondistended. MUSCULOSKELETAL: No cyanosis, or edema. BACK: Nontender without obvious deformity. No CVA tenderness. A/P Assessment and Plan Recrrent pl effusion Likly infected pl fluid CAD, CABG Rectal bleed PLAN: Check pl fluid cultures Cont ABX ID Following Colonoscopy in [place] Gotti MD Dec 09, 2016 17:47
[2016-12-09 20:00] VITALS: BP 120/67; PULSE 87; RESP 16; TEMP 97.5; O2SAT 93
[2016-12-09] MEDS: traZODone HCL 50 MG TAB PO SCH (21:00)
[2016-12-09] MEDS: ATORVASTATIN 80 MG TAB PO SCH (21:16)
[2016-12-09] MEDS: POTASSIUM CHLORIDE 10 MEQ CONTROLLED RELEASE TAB PO SCH (21:16)
[2016-12-09] MEDS: valACYclovir HCL 500 MG TAB PO SCH (21:17)
[2016-12-09] MEDS: FENOFIBRATE 145 MG TAB PO SCH (21:18)
[2016-12-10] VITALS: BP 96/59; PULSE 83; RESP 16; TEMP 96.3; O2SAT 91
[2016-12-10] MEDS: traZODone HCL 50 MG TAB PO SCH ×2 (00:14→21:14)
[2016-12-10 06:00] VITALS: BP 99/56; PULSE 84; RESP 18; TEMP 97.1; O2SAT 96
[2016-12-10] MEDS: hydrALAZINE HCL 25 MG TAB PO SCH ×3 (06:00→22:00)
[2016-12-10] MEDS: DILTIAZEM HCL 60 MG TAB PO SCH ×3 (06:00→21:14)
[2016-12-10] MEDS: LOW DOSE INSULIN NOVOLOG SUPPLEMENTAL SCALE SQ SCH ×4 (06:07→21:29)
[2016-12-10] MEDS: DEXTROSE 5% IN WATE 1000ML INJ 1,000 ML IV SCH (06:08)
[2016-12-10] MEDS: LEVOTHYROXINE SODIUM 150 MCG TAB PO SCH (06:08)
[2016-12-10 08:00] VITALS: BP 133/79; PULSE 83; PULSE 90; RESP 19; TEMP 96.4; O2SAT 98
[2016-12-10] MEDS: PANTOPRAZOLE SOD 40 MG DELAYED RELEASE TAB PO SCH ×2 (09:21→21:14)
[2016-12-10] MEDS: ASPIRIN 81 MG CHEW TAB PO SCH (09:21)
[2016-12-10] MEDS: METOPROLOL TARTRATE 25 MG TAB PO SCH ×2 (09:21→21:00)
[2016-12-10] MEDS: SODIUM CHLORIDE 0.9% FLUSH 10 ML FLUSH IV FLUSH SCH ×2 (09:22→21:00)
[2016-12-10] MEDS: DULoxetine HCl DR 60 MG CAP PO SCH (09:22)
[2016-12-10 11:00] LABS: AUTOMATED NEUTROPHIL # 12.2 TH/MM3 (1.8-7.7); BASOPHIL # 0.1 TH/MM3 (0-0.2); BASOPHIL % 0.4 % (0.0-2.0); EOSINOPHIL # 0.1 TH/MM3 (0-0.4); EOSINOPHIL % 1.1 % (0.0-4.0); HEMATOCRIT 33.1 % (35.0-46.0); HEMO FLAGS DIFF FINAL; LYMPH % 2.6 % (9.0-44.0); LYMPHOCYTE # 0.3 TH/MM3 (1.0-4.8); MEAN CELL VOLUME 85.8 FL (80.0-100.0); MEAN CORPUSCULAR HEMOGLOBIN 27.5 PG (27.0-34.0); MEAN CORPUSCULAR HGB CONC 32.1 % (32.0-36.0); MONO % 4.3 % (0.0-8.0); NEUT % 91.6 % (16.0-70.0); PLATELET COUNT 420 TH/MM3 (150-450); RED BLOOD COUNT 3.86 MIL/MM3 (4.00-5.30); RED CELL DISTRIBUTION WIDTH 19.2 % (11.6-17.2); WHITE BLOOD COUNT 13.3 TH/MM3 (4.0-11.0)
[2016-12-10 11:21] LABS: ANION GAP 12 MEQ/L (5-15); AST (GOT) 56 U/L (15-37); BICARBONATE 25.2 MEQ/L (21.0-32.0); BLOOD UREA NITROGEN 41 MG/DL (7-18); CHLORIDE 95 MEQ/L (98-107); GLOMERULAR FILTRATION RATE 35 ML/MIN (>89); POTASSIUM 3.7 MEQ/L (3.5-5.1); SODIUM (NA) 132 MEQ/L (136-145)
[2016-12-10 11:25] LABS: ALKALINE PHOSPHATASE 160 U/L (45-117); ALT (GPT) 65 U/L (10-53); TOTAL BILIRUBIN ADULT 1.1 MG/DL (0.2-1.0)
--- NOTE | 2016-12-10 12:03 | RADRPT ---
EXAM DATE/TIME: 12/10/2016 10:52 [facility] COMPARISON: CHEST SINGLE AP, December 07, 2016, 17:58. INDICATIONS : Pneumonia. Short of breath. MEDICAL HISTORY : Chronic obstructive pulmonary disease. Myocardial infarction. Congestive heart failure SURGICAL HISTORY : CABG. H/O multiple Thoracentesis. Lung drain placed 1 week ago. ENCOUNTER: Subsequent ACUITY: 1 day PAIN SCORE: 0/10 LOCATION: Bilateral chest FINDINGS: The heart is enlarged. There is a sizable pleural effusion on the right. It has increased in size whe n compared to previous exam. There is a small effusion on the left. There is diffuse interstitial pro minence. Study could suggests at least a mild degree of congestive failure. CONCLUSION: 1. Moderate size pleural effusion on the right. This has increased compared to prior dated 12/07/16. 2. Cardiomegaly and diffuse interstitial prominence suggesting congestive failure. Varun Alvarez MD on December 10, 2016 at 12:00 Board Certified Radiologist. This report was verified electronically.
[2016-12-10] MEDS ORDERED: GLUCAGON 1 MG/ML VIAL IV PUSH ONE (12:47)
[2016-12-10] MEDS ORDERED: PROPOFOL 200 MG/20 ML AMP IV PUSH ONE (13:00)
--- NOTE | 2016-12-10 13:26 | HHI.GIFU ---
Subjective Remarks Immediate postop note: EGD and colonoscopy with biopsy Indication: GI bleed, probably lower Meds: MAC Findings: Esophagus: normal Stomach: large gastric pouch with HH. Anastomotic ulcer, 1cm clean base. Jejunum: pale erythematous flat lesion possibly AVM but pale. No intervention Cecum: normal Transverse colon diminutive polyp removed with cold biopsy Severe sigmoid diverticulosis Large hemorrhoids. Impression: GI bleed probably from hemorrhoids. Ulcer at Gastric pouch- Jejunal anastomosis without visible vessel. Jejunal flat lesion possible AVM. Severe diverticulosis Rec: PPI and carafate OK to resume anticoagulant when otherwise stable Chest tube has come out prior to the procedures, this will need management Metamucil 1 tablespoon daily. Objective Vitals I&O Vital Signs Date Time Temp Pulse Resp B/P Pulse Ox O2 Delivery O2 Flow Rate FiO2 12/10/16 08:00 96.4 90 19 133/79 98 12/10/16 06:00 97.1 84 18 99/56 96 12/10/16 00:00 96.3 83 16 96/59 91 12/09/16 20:00 97.5 87 16 120/67 93 12/09/16 16:51 96.7 67 20 115/74 97 I/O 12/09/16 12/09/16 12/09/16 12/10/16 12/10/16 12/10/16 06:59 14:59 22:59 06:59 14:59 22:59 Intake Total 360 ml 960 ml 720 ml Output Total 50 ml 50 ml Balance -50 ml 360 ml 960 ml 670 ml Intake Oral 360 ml 960 ml IV Total 720 ml Output Chest Tube Drainage Total 50 ml Drainage Total 50 ml # Voids 2 2 3 # Bowel Movements 4 4 Laboratory Laboratory Tests Test 12/10/16 10:13 White Blood Count 13.3 Red Blood Count 3.86 Hemoglobin 10.6 Hematocrit 33.1 Mean Corpuscular Volume 85.8 Mean Corpuscular Hemoglobin 27.5 Mean Corpuscular Hemoglobin 32.1 Concent Red Cell Distribution Width 19.2 Platelet Count 420 Mean Platelet Volume 8.8 Neutrophils (%) (Auto) 91.6 Lymphocytes (%) (Auto) 2.6 Monocytes (%) (Auto) 4.3 Eosinophils (%) (Auto) 1.1 Basophils (%) (Auto) 0.4 Neutrophils # (Auto) 12.2 Lymphocytes # (Auto) 0.3 Monocytes # (Auto) 0.6 Eosinophils # (Auto) 0.1 Basophils # (Auto) 0.1 CBC Comment DIFF FINAL Differential Comment Sodium Level 132 Potassium Level 3.7 Chloride Level 95 Carbon Dioxide Level 25.2 Anion Gap 12 Blood Urea Nitrogen 41 Creatinine 1.46 Estimat Glomerular Filtration 35 Rate Random Glucose 139 Calcium Level 9.0 Total Bilirubin 1.1 Aspartate Amino Transf 56 (AST/SGOT) Alanine Aminotransferase 65 (ALT/SGPT) Alkaline Phosphatase 160 Total Protein 6.1 Albumin 1.9 Date/Time Procedure Status Source Growth 12/09/16 06:27 Aerobic Blood Culture - Preliminary Resulted Blood Peripheral NO GROWTH IN 1 DAY 12/09/16 06:27 Anaerobic Blood Culture - Preliminary Resulted Blood Peripheral NO GROWTH IN 1 DAY 12/09/16 04:15 Gram Stain Received Fluid Pleural Fluid Pending 12/09/16 04:15 Body Fluid Culture Received Fluid Pleural Fluid Pending 12/09/16 04:13 Gram Stain - Final Resulted Fluid Pleural Fluid 12/09/16 04:13 Body Fluid Culture - Preliminary Resulted S. Aureus Mrsa 12/09/16 00:00 Aerobic Blood Culture Ordered Blood Peripheral Pending 12/09/16 00:00 Anaerobic Blood Culture Ordered Blood Peripheral Pending 12/07/16 20:30 Urine Culture - Final Complete Urine Catheterized Urine 50-100,000 CFU/ML MIXED MANGO... Physical Exam HEENT: Normocephalic; atraumatic; no jaundice. CHEST: CTA, diminished. Right pleural catheter clamped. CARDIAC: RRR. ABDOMEN: Soft, nondistended, nontender; no hepatosplenomegaly; bowel sounds are present in all four quadrants. EXTREMITIES: No clubbing, cyanosis, or edema. SKIN: Normal; no rash; no jaundice. 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 Assessment and Plan Plan ASSESSMENT: - Rectal bleeding, ? Diverticular. Has hx of lower GI bleeds in the past- Last time 2 years ago in [place]. States she had egd/colonoscopy at that time and they could tell that she was recently bleeding, but could not find the source. She believes that she was told that it was diverticular. She has not had any episodes since that time until yesterday, when she had the sudden urge to move her bowels and had a large amount of rectal bleeding with red blood and clots/no stool. No abdominal pain, n/v. She has not had any further episodes. Xareltois on hold. S/P 2 units of PRBC. HH 11.2/33.2. - Abn. Wt. Loss 70 lbs since February of 2016. She has hx of gastric bypass and then had CABG in February of 2016. She has since had multiple hospitalizations for complications and has lost 70 lbs. She states that her weight is now stable and that she denies any decreased appetite. EGD/Colonoscopy in am. - GERD. Controlled at home with PPI. Last EGD about 2 years ago in [place]. - Recurrent pleural effusion. Has pleural catheter in place (secondary to requiring frequent thoracentesis and being on Xarelto). Sees Dr. Barger as outpatient. - HTN, COPD, Hypothyroidism, CAD per primary PLAN: - EGD/Colonoscopy today showed Diverticulosis, Hemorrhoids, single diminutive polyp removed, anastomotic ulcer at gastric pouch- jejunum. Clean base. Low risk of further bleed. - Regular diet - Metamucil daily - OK for restart anticoagulant. - PPI and carafate. - Golytely prep - Hold Xarelto - Monitor HH - Transfuse as necessary - Supportive care - Further recommendations to follow based on results of above - Pt seen and examined by Dr. Cui and myself and this note is written on his behalf Ramiro Cui MD Dec 10, 2016 13:25
[2016-12-10] MEDS: VANCOMYCIN 1,000 MG/NS 250 ML IV SCH ×2 (13:57)
--- NOTE | 2016-12-10 15:22 | HHI.IDPN ---
Note Infectious Disease Note Patient feels okay. R. chest tube fell out this am. Denies chest pain. Afebrile. Pleural fluid culture has MRSA. PAST MEDICAL HISTORY Hypothyroidism, congestive heart failure, diabetes mellitus, hypertension, atrial fibrillation, COPD, gastroesophageal reflux disease, coronary disease, bypass graft February 2016, gastric bypass 2009, back surgery, bilateral cataract surgery, coronary stent in 2007. ALLERGIES PENICILLIN. ERYTHROMYCIN. LASIX. ANTIBIOTICS: Vancomycin. OBJECTIVE: Vital Signs Date Time Temp Pulse Resp B/P Pulse Ox O2 Delivery O2 Flow Rate FiO2 12/10/16 13:28 80 18 123/68 97 12/10/16 13:18 82 18 108/82 94 12/10/16 13:08 98.5 83 18 110/60 94 12/10/16 08:00 96.4 90 19 133/79 98 12/10/16 06:00 97.1 84 18 99/56 96 12/10/16 00:00 96.3 83 16 96/59 91 12/09/16 20:00 97.5 87 16 120/67 93 12/09/16 16:51 96.7 67 20 115/74 97 12/09/16 12/09/16 12/10/16 14:59 22:59 06:59 Intake Total 360 ml 960 ml 720 ml Output Total 50 ml Balance 360 ml 960 ml 670 ml Intake Oral 360 ml 960 ml IV Total 720 ml Output Chest Tube Drainage Total 50 ml # Voids 2 3 # Bowel Movements 4 4 Laboratory Tests Test 12/09/16 12/10/16 06:21 10:13 White Blood Count 20.7 TH/MM3 13.3 TH/MM3 Red Blood Count 3.90 MIL/MM3 3.86 MIL/MM3 Hemoglobin 11.2 GM/DL 10.6 GM/DL Hematocrit 33.3 % 33.1 % Mean Corpuscular Volume 85.3 FL 85.8 FL Mean Corpuscular Hemoglobin 28.6 PG 27.5 PG Mean Corpuscular Hemoglobin 33.6 % 32.1 % Concent Red Cell Distribution Width 18.9 % 19.2 % Platelet Count 448 TH/MM3 420 TH/MM3 Mean Platelet Volume 8.6 FL 8.8 FL Neutrophils (%) (Auto) 90.6 % 91.6 % Lymphocytes (%) (Auto) 3.0 % 2.6 % Monocytes (%) (Auto) 5.0 % 4.3 % Eosinophils (%) (Auto) 0.6 % 1.1 % Basophils (%) (Auto) 0.8 % 0.4 % Neutrophils # (Auto) 18.7 TH/MM3 12.2 TH/MM3 Lymphocytes # (Auto) 0.6 TH/MM3 0.3 TH/MM3 Monocytes # (Auto) 1.0 TH/MM3 0.6 TH/MM3 Eosinophils # (Auto) 0.1 TH/MM3 0.1 TH/MM3 Basophils # (Auto) 0.2 TH/MM3 0.1 TH/MM3 CBC Comment DIFF FINAL DIFF FINAL Differential Comment Laboratory Tests Test 12/09/16 12/10/16 08:35 10:13 Sodium Level 134 MEQ/L 132 MEQ/L Potassium Level 3.8 MEQ/L 3.7 MEQ/L Chloride Level 97 MEQ/L 95 MEQ/L Carbon Dioxide Level 25.4 MEQ/L 25.2 MEQ/L Anion Gap 12 MEQ/L 12 MEQ/L Blood Urea Nitrogen 43 MG/DL 41 MG/DL Creatinine 1.58 MG/DL 1.46 MG/DL Estimat Glomerular Filtration 32 ML/MIN 35 ML/MIN Rate Random Glucose 39 MG/DL 139 MG/DL Calcium Level 9.0 MG/DL 9.0 MG/DL Total Bilirubin 1.4 MG/DL 1.1 MG/DL Aspartate Amino Transf 40 U/L 56 U/L (AST/SGOT) Alanine Aminotransferase 68 U/L 65 U/L (ALT/SGPT) Alkaline Phosphatase 125 U/L 160 U/L Total Protein 6.4 GM/DL 6.1 GM/DL Albumin 2.0 GM/DL 1.9 GM/DL Microbiology Date/Time Procedure Status Source Growth 12/07/16 20:30 Urine Culture - Final Complete Urine Catheterized Urine 50-100,000 CFU/ML MIXED MANGO... 12/09/16 00:00 Aerobic Blood Culture Ordered Blood Peripheral Pending 12/09/16 00:00 Anaerobic Blood Culture Ordered Blood Peripheral Pending 12/09/16 00:00 Aerobic Blood Culture Ordered Blood Peripheral Pending 12/09/16 00:00 Anaerobic Blood Culture Ordered Blood Peripheral Pending 12/09/16 00:00 Gram Stain Ordered Fluid Pleural Fluid Pending 12/09/16 00:00 Body Fluid Culture Ordered Fluid Pleural Fluid Pending 12/09/16 04:13 Gram Stain - Final Resulted Fluid Pleural Fluid 12/09/16 04:13 Body Fluid Culture - Preliminary Resulted S. Aureus Mrsa 12/09/16 04:15 Gram Stain Received Fluid Pleural Fluid Pending 12/09/16 04:15 Body Fluid Culture Received Fluid Pleural Fluid Pending 12/09/16 06:21 Aerobic Blood Culture - Preliminary Resulted Blood Peripheral NO GROWTH IN 1 DAY 12/09/16 06:21 Anaerobic Blood Culture - Preliminary Resulted Blood Peripheral NO GROWTH IN 1 DAY 12/09/16 06:27 Aerobic Blood Culture - Preliminary Resulted Blood Peripheral NO GROWTH IN 1 DAY 12/09/16 06:27 Anaerobic Blood Culture - Preliminary Resulted Blood Peripheral NO GROWTH IN 1 DAY IMAGING. Chest X-Ray 12/10/16 0000 Signed Impressions: Service Date/Time: Saturday, December 10, 2016 10:52 - CONCLUSION: 1. Moderate size pleural effusion on the right. This has increased compared to prior dated 12/07/16. 2. Cardiomegaly and diffuse interstitial prominence suggesting congestive failure. Varun Alvarez MD Chest CT 12/07/16 0000 Signed Impressions: Service Date/Time: Wednesday, December 07, 2016 20:39 - CONCLUSION: 1. Small bilateral pleural effusions which are smaller from the prior study. 2. No discrete infiltrate. 3. Cardiomegaly. 4. Significant coronary artery atherosclerotic calcifications. John Peace Jr., MD PHYSICAL EXAMINATION GENERAL: No acute distress. Awake and alert and oriented. HEENT: Extraocular movements grossly intact, pupils reactive to light. No icterus. Oropharynx moist mucosa without lesions. NECK: Supple without adenopathy. LUNGS: Rales at the R. base. ABDOMEN: Bowel sounds present, soft, nontender. EXTREMITIES: No clubbing, cyanosis or edema. SKIN: No rash. The skin appears pale daily. NEURO: Nonfocal. PSYCH: Patient pleasant, calm and cooperative. IMPRESSION Chronic pleural effusion. MRSA. Leukocytosis. RECOMMENDATIONS 1. Continue vancomycin. Pharmacy managing. Adjusted for renal function. 2. Monitor renal function. 3. Monitor temp and WBC. May need further pleural fluid drainage. Nathan Morocho MD Dec 10, 2016 15:22 Thank you for this consultation. ____ managing the vancomycin. The patient's progress will be monitored and further recommendations will be given upon followup. Nathan Morocho MD Dec 10, 2016 15:22
--- NOTE | 2016-12-10 16:11 | HHI.PR ---
Subjective Remarks chest tube feel out no complains colonoscopy done- diverticuoses, no active bleeding Objective Vitals Vital Signs Date Time Temp Pulse Resp B/P Pulse Ox O2 Delivery O2 Flow Rate FiO2 12/10/16 13:28 80 18 123/68 97 12/10/16 13:18 82 18 108/82 94 12/10/16 13:08 98.5 83 18 110/60 94 12/10/16 08:00 96.4 90 19 133/79 98 12/10/16 06:00 97.1 84 18 99/56 96 12/10/16 00:00 96.3 83 16 96/59 91 12/09/16 20:00 97.5 87 16 120/67 93 12/09/16 16:51 96.7 67 20 115/74 97 I/O 12/09/16 12/09/16 12/09/16 12/10/16 12/10/16 12/10/16 06:59 14:59 22:59 06:59 14:59 22:59 Intake Total 360 ml 960 ml 720 ml 720 ml Output Total 50 ml 50 ml Balance -50 ml 360 ml 960 ml 670 ml 720 ml Intake Oral 360 ml 960 ml 420 ml IV Total 720 ml Other 300 ml Output Chest Tube Drainage Total 50 ml Drainage Total 50 ml # Voids 2 2 3 4 # Bowel Movements 4 4 0 Result Diagram: 12/10/16 1013 12/10/16 1013 Imaging Last Impressions Chest X-Ray 12/10/16 0000 Signed Impressions: Service Date/Time: Saturday, December 10, 2016 10:52 - CONCLUSION: 1. Moderate size pleural effusion on the right. This has increased compared to prior dated 12/07/16. 2. Cardiomegaly and diffuse interstitial prominence suggesting congestive failure. Varun Alvarez MD Chest CT 12/07/16 0000 Signed Impressions: Service Date/Time: Wednesday, December 07, 2016 20:39 - CONCLUSION: 1. Small bilateral pleural effusions which are smaller from the prior study. 2. No discrete infiltrate. 3. Cardiomegaly. 4. Significant coronary artery atherosclerotic calcifications. John Peace Jr., MD Objective Remarks awake and alert, NAD anicteric lungs- decreased breath sounds right base, no rales, abdomen-soft, nontender extremities no edema Procedures 12/10- colonoscopy- diverticuloses, no active bleeding A/P Problem List: (1) GI bleed ICD Code: K92.2 Status: Acute Assessment and Plan 76 y/o female who was sent by systems planner for evaluation of suspected malfunctioning pleural tube but had bloody bowel movement while in ED. GI bleed- secondary to diverticuloses on colonoscopy 12/10 - Xarelto on hold . S/P 2 units RBC. H and H up - ff CBC - vitals stable - continuous cardiac telemetry to monitor for arrhythmia History of A. fib -on BB + CCB- decrease cardizem to 60 mg po q 6. - Xarelto okay to restart per GI Sepsis- Pleural tube malfunction with - Empyema- Gram + cocci in pleural fluid. Leukocytosis- WBC up - CXR shows: tunneled right thoracostomy tube in good position. Either pleural thickening or small volume loculated pleural effusion on the right. Mild cardiomegaly - CT chest shows: small bilateral pleural effusions which are smaller from the prior study. No discrete infiltrate. Cardiomegaly. - Pulmonary ff. - IV Vancomycin- consult pharmacy. ID ff - consider Thoracic surgery consult- regarding pleurectomy/lung resection- recurrent empyema Acute on CKI -gentle IVF- 60 cc/hr - DC bumex DM, insulin requiring- erratic readings. - -sliding scale- for now- hold Levemir- iomproved readings - D5NS history of hypothyroidism- on synthroid DVT prophylaxis - SCDs . Code Status DNR/DNI - verified by patient . Problem Qualifiers (1) GI bleed: Qualified Code: K92.2 - Gastrointestinal hemorrhage, unspecified gastrointestinal hemorrhage type Kortney Cee MD Dec 10, 2016 16:11
[2016-12-10 17:52] VITALS: BP 102/60; PULSE 64; RESP 26; TEMP 96; O2SAT 95
[2016-12-10] MEDS: SUCRALFATE 1 GM/10 ML CUP PO SCH ×2 (17:57→21:15)
--- NOTE | 2016-12-10 18:59 | HHI.PR ---
Subjective Remarks 76 YOWF with CAD,s/p CABG, recurrent pl eff, Rectal bleed Pl fluid growing MRSA Up in chair Comfortable, not toxic Pleurex fell off CXR right pl eff, no ptx Objective Vital Signs Vital Signs Date Time Temp Pulse Resp B/P Pulse Ox O2 Delivery O2 Flow Rate FiO2 12/10/16 17:52 96.0 64 26 102/60 95 12/10/16 13:28 80 18 123/68 97 12/10/16 13:18 82 18 108/82 94 12/10/16 13:08 98.5 83 18 110/60 94 12/10/16 08:00 96.4 90 19 133/79 98 12/10/16 06:00 97.1 84 18 99/56 96 12/10/16 00:00 96.3 83 16 96/59 91 12/09/16 20:00 97.5 87 16 120/67 93 I/O 12/09/16 12/09/16 12/09/16 12/10/16 12/10/16 12/10/16 07:00 15:00 23:00 07:00 15:00 23:00 Intake Total 360 ml 960 ml 720 ml 720 ml Output Total 50 ml 50 ml Balance -50 ml 360 ml 960 ml 670 ml 720 ml Intake Oral 360 ml 960 ml 420 ml IV Total 720 ml Other 300 ml Output Chest Tube Drainage Total 50 ml Drainage Total 50 ml # Voids 2 2 3 4 # Bowel Movements 4 4 0 Result Diagram: 12/10/16 1013 12/10/16 1013 Objective Remarks GENERAL: MBMN WF, mild sob SKIN: Warm and dry. HEAD: Normocephalic. EYES: No scleral icterus. No injection or drainage. NECK: Supple, trachea midline. No JVD or lymphadenopathy. CARDIOVASCULAR: Regular rate and rhythm without murmurs, gallops, or rubs. RESPIRATORY: Breath sounds equal bilaterally. No accessory muscle use. GASTROINTESTINAL: Abdomen soft, non-tender, nondistended. MUSCULOSKELETAL: No cyanosis, or edema. BACK: Nontender without obvious deformity. No CVA tenderness. A/P Assessment and Plan Recrrent pl effusion Likly infected pl fluid CAD, CABG Rectal bleed PLAN: Cont ABX Vanco ID Following Thoracentesis if sob After infection controlled, will involve CTS Calixto Hall MD Dec 10, 2016 18:59
[2016-12-10 20:00] VITALS: BP 117/64; PULSE 77; RESP 18; TEMP 97.7; O2SAT 98
[2016-12-10 20:04] VITALS: PULSE 84
[2016-12-10] MEDS: ACETAMINOPHEN/HYDROcodone 325 MG/7.5 MG TAB PO SCH (21:00)
[2016-12-10] MEDS: ATORVASTATIN 80 MG TAB PO SCH (21:14)
[2016-12-10] MEDS: POTASSIUM CHLORIDE 10 MEQ CONTROLLED RELEASE TAB PO SCH (21:14)
[2016-12-10] MEDS: FENOFIBRATE 145 MG TAB PO SCH (21:14)
[2016-12-10] MEDS: valACYclovir HCL 500 MG TAB PO SCH (21:25)
--- NOTE | 2016-12-10 21:45 | MR ---
cc: LEEANN CEE HAROLD H. JR. MD DATE: 12/10/2016. PROCEDURE PERFORMED: Esophagogastroduodenoscopy and colonoscopy with biopsy. INDICATIONS FOR THE PROCEDURE: GI bleed, probably lower. REFERRING PHYSICIAN: Dr. Cee. DESCRIPTION OF THE PROCEDURE IN DETAIL: After informed consent was obtained, the patient was placed in left side down position. She was sedated by the anesthesia service. After adequate sedation was achieved, the Pentax video gastroscope was inserted in the oropharynx and advanced to the esophagus, stomach and duodenum. It was then slowly withdrawn examining the mucosal surfaces carefully. Retroflexed exam was performed in the fundus and cardia. The scope was then straightened and it was then slowly withdrawn out the esophagus and the procedure was terminated. A colonoscopy was then performed. Digital rectal examination was normal. The Pentax video pediatric colonoscope was inserted in the anal canal and advanced up into the sigmoid colon. It could not be advanced around the sharp angulations and turns; therefore, the patient was turned onto her right side. This allowed passage of the scope up to the cecum. The scope was then slowly withdrawn examining the mucosal surfaces carefully. In the transverse colon, a diminutive polyp was removed with a single bite of the cold forceps. The scope was further withdrawn through the remainder of the colon. A retroflexed exam was performed in the rectum. The scope was then straightened and pulled through the anal canal. The procedure was terminated. She tolerated the procedure well and was returned to the recovery area in good condition. FINDINGS: 1. The esophagus was normal. 2. In the stomach, there was a large gastric pouch from a gastric bypass and there did even seem to be a hiatal hernia in a portion of the pouch. 3. There was an anastomotic ulcer approximately 1 cm at the anastomosis between the gastric pouch in the jejunum. 4. The jejunum was normal except that there was pale erythematous flat lesion, possibly an AVM, but it did not appear to be at risk for significant bleeding. No intervention was taken. 5. The cecum was normal. 6. The transverse colon contained a diminutive polyp removed with cold forceps technique. 7. There was severe sigmoid diverticulosis but no evidence of active bleeding. 8. There were some large internal hemorrhoids. IMPRESSION: 1. GI bleed, probably from hemorrhoids. 2. Ulceration at the gastric pouch/ jejunal anastomosis without a visible vessel. 3. A flat lesion in the jejunum, possibly an AVM, appears at low risk for bleeding. 4. Severe diverticulosis. RECOMMENDATIONS: 1. The patient should begin proton pump inhibitor and Carafate to attempt healing of the anastomotic ulcer. 2. It is okay to resume anticoagulant when she is otherwise stable. 3. The chest tube she had in place had come out prior to the procedure. This will need management. During the procedure, this was covered by an occlusive dressing. 4. The patient should take Metamucil one tablespoon daily. Ramiro Cui MD [facility] /1:37 PM /9:37 PM
[2016-12-11] VITALS (8 sets, daily range): BP systolic 113–156; BP diastolic 61–90; PULSE 69–100; RESP 18–20; TEMP 96.7–98.6; O2SAT 95–100
[2016-12-11] MEDS: SUCRALFATE 1 GM/10 ML CUP PO SCH ×3 (05:17→21:22)
[2016-12-11] MEDS: DILTIAZEM HCL 60 MG TAB PO SCH ×3 (05:17→21:19)
[2016-12-11] MEDS: LEVOTHYROXINE SODIUM 150 MCG TAB PO SCH (05:17)
[2016-12-11] MEDS: LOW DOSE INSULIN NOVOLOG SUPPLEMENTAL SCALE SQ SCH ×4 (05:25→21:39)
[2016-12-11] MEDS: hydrALAZINE HCL 25 MG TAB PO SCH ×3 (06:00→21:20)
[2016-12-11] MEDS: ACETAMINOPHEN/HYDROcodone 325 MG/7.5 MG TAB PO SCH ×2 (09:00→21:00)
--- NOTE | 2016-12-11 09:21 | HHI.PR ---
Subjective Remarks no complains, po 100%, no nausea or vomiting no rectal bleed up and ambulating slowly inside the room- - comfortable Objective Vitals Vital Signs Date Time Temp Pulse Resp B/P Pulse Ox O2 Delivery O2 Flow Rate FiO2 12/11/16 04:03 75 12/11/16 04:00 98.1 81 18 119/70 98 12/11/16 00:04 83 12/10/16 20:04 84 12/10/16 20:00 97.7 77 18 117/64 98 12/10/16 17:52 96.0 64 26 102/60 95 12/10/16 13:28 80 18 123/68 97 12/10/16 13:18 82 18 108/82 94 12/10/16 13:08 98.5 83 18 110/60 94 I/O 12/10/16 12/10/16 12/10/16 12/11/16 12/11/16 12/11/16 06:59 14:59 22:59 06:59 14:59 22:59 Intake Total 720 ml 720 ml 480 ml 480 ml Output Total 50 ml Balance 670 ml 720 ml 480 ml 480 ml Intake Oral 420 ml 480 ml 480 ml IV Total 720 ml Other 300 ml Output Chest Tube Drainage Total 50 ml # Voids 3 4 1 3 # Bowel Movements 4 0 Result Diagram: 12/10/16 1013 12/10/16 1013 Imaging Last Impressions Chest X-Ray 12/10/16 0000 Signed Impressions: Service Date/Time: Saturday, December 10, 2016 10:52 - CONCLUSION: 1. Moderate size pleural effusion on the right. This has increased compared to prior dated 12/07/16. 2. Cardiomegaly and diffuse interstitial prominence suggesting congestive failure. Varun Alvarez MD Chest CT 12/07/16 0000 Signed Impressions: Service Date/Time: Wednesday, December 07, 2016 20:39 - CONCLUSION: 1. Small bilateral pleural effusions which are smaller from the prior study. 2. No discrete infiltrate. 3. Cardiomegaly. 4. Significant coronary artery atherosclerotic calcifications. John Peace Jr., MD Objective Remarks awake and alert, NAD anicteric lungs- decreased breath sounds right base, no rales, abdomen-soft, nontender extremities no edema neuro exam- unremarkable Procedures 12/10- colonoscopy- diverticuloses, no active bleeding, hemorrhoids, AVM- no bleeding -EGD- ulceration-gastric anastomotic area A/P Problem List: (1) GI bleed ICD Code: K92.2 Status: Acute Assessment and Plan 76 y/o female who was sent by tractor driver for evaluation of suspected malfunctioning pleural tube but had bloody bowel movement while in ED. GI bleed- S/P EGD- gastric anastomotic ulcer , diverticuloses , hemorrhoids on colonoscopy 12/10- no active bleeding - Xarelto on hold . S/P 2 units RBC. H and H up - ff CBC - if stable- restart Xarelto - on PPI, Metamucil, Carafate History of A. fib -on BB + CCB- - stable cardizem to 60 mg po q 8 - Xarelto okay to restart per GI. will check CBC first Sepsis- Pleural tube malfunction with - Empyema- Gram + cocci in pleural fluid. Leukocytosis- WBC up - CXR shows: tunneled right thoracostomy tube in good position. Either pleural thickening or small volume loculated pleural effusion on the right. Mild cardiomegaly - CT chest shows: small bilateral pleural effusions which are smaller from the prior study. No discrete infiltrate. Cardiomegaly. - Pulmonary ff. - IV Vancomycin- consult pharmacy. ID ff - plan to monitor patient - if develops SOB- repeat thoracentesis - consider Thoracic surgery consult- regarding pleurectomy/lung resection- recurrent empyema Acute on CKI -gentle IVF- 60 cc/hr - DC bumex - ff BMP DM, insulin requiring- erratic readings. - -sliding scale- for now- hold Levemir- improved readings - D5NS history of hypothyroidism- on synthroid DVT prophylaxis - SCDs . Code Status DNR/DNI - verified by patient . Problem Qualifiers (1) GI bleed: Qualified Code: K92.2 - Gastrointestinal hemorrhage, unspecified gastrointestinal hemorrhage type Kortney Cee MD Dec 11, 2016 09:21
[2016-12-11] MEDS: PANTOPRAZOLE SOD 40 MG DELAYED RELEASE TAB PO SCH ×2 (09:50→21:20)
[2016-12-11] MEDS: METOPROLOL TARTRATE 25 MG TAB PO SCH ×2 (09:50→21:20)
[2016-12-11] MEDS: ASPIRIN 81 MG CHEW TAB PO SCH (09:50)
[2016-12-11] MEDS: PSYLLIUM FIBER SF/GF 6 GM POWD PKT PO SCH (09:50)
[2016-12-11] MEDS: DULoxetine HCl DR 60 MG CAP PO SCH (09:50)
[2016-12-11] MEDS: SODIUM CHLORIDE 0.9% FLUSH 10 ML FLUSH IV FLUSH SCH ×2 (12:20→21:21)
[2016-12-11 12:49] LABS: MEAN CELL VOLUME 88.4 FL (80.0-100.0); MEAN CORPUSCULAR HEMOGLOBIN 29.4 PG (27.0-34.0); MEAN CORPUSCULAR HGB CONC 33.3 % (32.0-36.0); PLATELET COUNT 396 TH/MM3 (150-450); RED BLOOD COUNT 3.62 MIL/MM3 (4.00-5.30); RED CELL DISTRIBUTION WIDTH 19.2 % (11.6-17.2); REVIEW FLAG FINAL; WHITE BLOOD COUNT 9.9 TH/MM3 (4.0-11.0)
[2016-12-11] MEDS: VANCOMYCIN 1,000 MG/NS 250 ML IV SCH ×2 (13:00)
[2016-12-11 13:10] LABS: BICARBONATE 24.1 MEQ/L (21.0-32.0); POTASSIUM 3.9 MEQ/L (3.5-5.1)
--- NOTE | 2016-12-11 16:18 | HHI.GIFU ---
Subjective Remarks Pt OOB to chair. no complaints at this time other than the quality of the food. (Ashley Hudson) Objective Vitals I&O Vital Signs Date Time Temp Pulse Resp B/P Pulse Ox O2 Delivery O2 Flow Rate FiO2 12/11/16 12:00 96.7 80 18 115/61 12/11/16 08:00 96.9 75 18 118/90 97 12/11/16 08:00 90 12/11/16 04:03 75 12/11/16 04:00 98.1 81 18 119/70 98 12/11/16 00:04 83 12/10/16 20:04 84 12/10/16 20:00 97.7 77 18 117/64 98 12/10/16 17:52 96.0 64 26 102/60 95 I/O 12/10/16 12/10/16 12/10/16 12/11/16 12/11/16 12/11/16 07:00 15:00 23:00 07:00 15:00 23:00 Intake Total 720 ml 720 ml 480 ml 480 ml 900 ml Output Total 50 ml Balance 670 ml 720 ml 480 ml 480 ml 900 ml Intake Oral 420 ml 480 ml 480 ml 900 ml IV Total 720 ml Other 300 ml Output Chest Tube Drainage Total 50 ml # Voids 3 4 1 3 6 # Bowel Movements 4 0 2 Laboratory Laboratory Tests Test 12/11/16 11:00 White Blood Count 9.9 Red Blood Count 3.62 Hemoglobin 10.7 Hematocrit 32.0 Mean Corpuscular Volume 88.4 Mean Corpuscular Hemoglobin 29.4 Mean Corpuscular Hemoglobin 33.3 Concent Red Cell Distribution Width 19.2 Platelet Count 396 Mean Platelet Volume 8.8 Sodium Level 133 Potassium Level 3.9 Chloride Level 100 Carbon Dioxide Level 24.1 Anion Gap 9 Blood Urea Nitrogen 41 Creatinine 1.20 Estimat Glomerular Filtration 44 Rate Random Glucose 294 Calcium Level 8.4 Date/Time Procedure Status Source Growth 12/09/16 06:27 Aerobic Blood Culture - Preliminary Resulted Blood Peripheral NO GROWTH IN 2 DAYS 12/09/16 06:27 Anaerobic Blood Culture - Preliminary Resulted Blood Peripheral NO GROWTH IN 2 DAYS 12/09/16 04:15 Gram Stain Received Fluid Pleural Fluid Pending 12/09/16 04:15 Body Fluid Culture Received Fluid Pleural Fluid Pending 12/09/16 04:13 Gram Stain - Final Complete Fluid Pleural Fluid 12/09/16 04:13 Body Fluid Culture - Final Complete S. Aureus Mrsa 12/09/16 00:00 Aerobic Blood Culture Ordered Blood Peripheral Pending 12/09/16 00:00 Anaerobic Blood Culture Ordered Blood Peripheral Pending 12/07/16 20:30 Urine Culture - Final Complete Urine Catheterized Urine 50-100,000 CFU/ML MIXED MANGO... Imaging Last Impressions Chest X-Ray 12/10/16 0000 Signed Impressions: Service Date/Time: Saturday, December 10, 2016 10:52 - CONCLUSION: 1. Moderate size pleural effusion on the right. This has increased compared to prior dated 12/07/16. 2. Cardiomegaly and diffuse interstitial prominence suggesting congestive failure. Varun Alvarez MD Chest CT 12/07/16 0000 Signed Impressions: Service Date/Time: Wednesday, December 07, 2016 20:39 - CONCLUSION: 1. Small bilateral pleural effusions which are smaller from the prior study. 2. No discrete infiltrate. 3. Cardiomegaly. 4. Significant coronary artery atherosclerotic calcifications. John Peace Jr., MD Physical Exam HEENT: Normocephalic; atraumatic; no jaundice. CHEST: CTA, diminished CARDIAC: RRR. ABDOMEN: Soft, nondistended, nontender; no hepatosplenomegaly; bowel sounds are present in all four quadrants. EXTREMITIES: No clubbing, cyanosis, or edema. SKIN: Normal; no rash; no jaundice. PLASTER HELPER: No focal deficits; alert and oriented times three. (Ashley Hudson [facility]) Assessment and Plan Plan ASSESSMENT: - Rectal bleeding, ? Diverticular. Has hx of lower GI bleeds in the past- Last time 2 years ago in [place]. States she had egd/colonoscopy at that time and they could tell that she was recently bleeding, but could not find the source. She believes that she was told that it was diverticular. She has not had any episodes since that time until yesterday, when she had the sudden urge to move her bowels and had a large amount of rectal bleeding with red blood and clots/no stool. No abdominal pain, n/v. She has not had any further episodes. EGD/[id number] showed Diverticulosis, Hemorrhoids, single diminutive polyp removed, anastomotic ulcer at gastric pouch- jejunum. Clean base. Low risk of further bleed. Xarelto is on hold. S/ P 2 units of PRBC. HH 10.7/32.0 - Abn. Wt. Loss 70 lbs since February of 2016. She has hx of gastric bypass and then had CABG in February of 2016. She has since had multiple hospitalizations for complications and has lost 70 lbs. She states that her weight is now stable and that she denies any decreased appetite. - GERD. Controlled at home with PPI. Last EGD about 2 years ago in [place]. - Recurrent pleural effusion. Had pleural catheter in place (secondary to requiring frequent thoracentesis and being on Xarelto). Sees Dr. Barger as outpatient. - HTN, COPD, Hypothyroidism, CAD per primary PLAN: - Regular diet - Metamucil daily - OK for restart anticoagulant. - PPI and carafate. - Monitor HH - Supportive care - Pt seen and examined by and myself and this note is written on his behalf (Ashley Hudson) Physician Comments patient was seen and examined, agree with above note and plan, no sign of active bleed, could be diverticular bleed, we will FU as needed, pls call us if needed. (Mir Thompson MD) Ashley Hudson Dec 11, 2016 16:18 Mir Thompson MD Dec 11, 2016 16:51
--- NOTE | 2016-12-11 17:02 | RADRPT ---
EXAM DATE/TIME: 12/11/2016 16:29 [facility] COMPARISON: CT THORAX W/O CONTRAST, December 07, 2016, 20:39 INDICATIONS : Recurrent pleural effusion RADIATION DOSE: 8.89 CTDIvol (mGy) MEDICAL HISTORY : Cardiovascular disease. Congestive heart failure. Hypertension. SURGICAL HISTORY : CABG ENCOUNTER: Subsequent ACUITY: 4 - 6 days PAIN SCALE: 0/10 LOCATION: Right chest TECHNIQUE: Volumetric scanning of the chest was performed. Using automated exposure control and adjustment of t he mA and/or kV according to patient size, radiation dose was kept as low as reasonably achievable to obtain optimal diagnostic quality images. DICOM format image data is available electronically for r eview and comparison. Follow-up recommendations for incidentally detected pulmonary nodules are based at a minimum on nodul e size and patient risk factors according to Fleischner Society Guidelines. FINDINGS: Small bilateral pleural effusions. The right is larger than the left. Both are larger from the prior study. There is associated passive atelectasis within the adjacent lungs. A groundglass infiltrate is seen within the central portion of the left upper lobe which is a new finding. Significant coronary artery atherosclerotic calcifications. Heart is normal size. Aorta and pulmonary vasculature are unre markable on this unenhanced study. Small anterior mediastinal lymph nodes are stable. No bulky adenop athy observed. A small hiatal hernia. CONCLUSION: 1. Enlargement in the bilateral pleural effusions. Both are small. 2. Development of intra-alveolar infiltrate within the left upper lobe. This could relate to pulmonar y edema or an infectious infiltrate. 3. Significant coronary artery atherosclerotic calcifications. John Peace Jr., MD on December 11, 2016 at 16:55 Board Certified Radiologist. This report was verified electronically.
[2016-12-11] MEDS: valACYclovir HCL 500 MG TAB PO SCH (21:19)
[2016-12-11] MEDS: traZODone HCL 50 MG TAB PO SCH (21:20)
[2016-12-11] MEDS: FENOFIBRATE 145 MG TAB PO SCH (21:20)
[2016-12-11] MEDS: POTASSIUM CHLORIDE 10 MEQ CONTROLLED RELEASE TAB PO SCH (21:20)
[2016-12-11] MEDS: ATORVASTATIN 80 MG TAB PO SCH (21:20)
[2016-12-12] VITALS: BP 110/71; PULSE 84; RESP 18; TEMP 99; O2SAT 97
[2016-12-12 04:00] VITALS: BP 134/77; PULSE 88; RESP 18; TEMP 98.4; O2SAT 98
[2016-12-12] MEDS: LEVOTHYROXINE SODIUM 150 MCG TAB PO SCH (06:09)
[2016-12-12] MEDS: SUCRALFATE 1 GM/10 ML CUP PO SCH ×4 (06:09→21:21)
[2016-12-12] MEDS: DILTIAZEM HCL 60 MG TAB PO SCH ×3 (06:10→21:20)
[2016-12-12] MEDS: hydrALAZINE HCL 25 MG TAB PO SCH ×3 (06:10→21:20)
[2016-12-12] MEDS: LOW DOSE INSULIN NOVOLOG SUPPLEMENTAL SCALE SQ SCH ×4 (06:34→21:35)
[2016-12-12 08:00] VITALS: BP 137/81; PULSE 95; RESP 18; TEMP 97; O2SAT 97
--- NOTE | 2016-12-12 08:28 | HHI.PR ---
Subjective Remarks not enough fluid to drain patient states up and ambulating- paces herself breathing- not dyspneic with slow pacing and at rest no GI bleeding d/w patient- does not want to be on diabetic diet- "please" Objective Vitals Vital Signs Date Time Temp Pulse Resp B/P Pulse Ox O2 Delivery O2 Flow Rate FiO2 12/12/16 04:00 98.4 88 18 134/77 98 12/12/16 00:00 99.0 84 18 110/71 97 12/11/16 22:03 76 12/11/16 20:00 98.6 82 18 128/81 99 12/11/16 16:00 97.5 100 20 156/74 100 12/11/16 16:00 76 12/11/16 16:00 98.6 69 20 113/71 95 12/11/16 12:00 96.7 80 18 115/61 I/O 12/11/16 12/11/16 12/11/16 12/12/16 12/12/16 12/12/16 07:00 15:00 23:00 07:00 15:00 23:00 Intake Total 480 ml 900 ml 220 ml Output Total 1 ml Balance 480 ml 900 ml 220 ml -1 ml Intake Oral 480 ml 900 ml 220 ml Output Urine Total 1 ml # Voids 3 6 1 # Bowel Movements 2 0 3 Result Diagram: 12/11/16 1100 12/11/16 1100 Imaging Last Impressions Chest CT 12/11/16 0000 Signed Impressions: Service Date/Time: Sunday, December 11, 2016 16:29 - CONCLUSION: 1. Enlargement in the bilateral pleural effusions. Both are small. 2. Development of intra-alveolar infiltrate within the left upper lobe. This could relate to pulmonary edema or an infectious infiltrate. 3. Significant coronary artery atherosclerotic calcifications. John Peace Jr., MD Chest X-Ray 12/10/16 0000 Signed Impressions: Service Date/Time: Saturday, December 10, 2016 10:52 - CONCLUSION: 1. Moderate size pleural effusion on the right. This has increased compared to prior dated 12/07/16. 2. Cardiomegaly and diffuse interstitial prominence suggesting congestive failure. Varun Alvarez MD Objective Remarks awake and alert, NAD. 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 GI bleed- S/P EGD- gastric anastomotic ulcer , diverticuloses , hemorrhoids on colonoscopy 12/10- no active bleeding - Xarelto on hold . S/P 2 units RBC. H and H up - ff CBC- if stable-this am - restart Xarelto - on PPI, Metamucil, Carafate History of A. fib -on BB + CCB- - stable cardizem to 60 mg po q 8 - Xarelto okay to restart per GI. will recheck CBC today Sepsis- Pleural tube malfunction with - Empyema- Gram + cocci in pleural fluid. Leukocytosis recheck today - CXR shows: tunneled right thoracostomy tube in good position. Either pleural thickening or small volume loculated pleural effusion on the right. Mild cardiomegaly - CT chest shows: small bilateral pleural effusions which are smaller from the prior study. No discrete infiltrate. Cardiomegaly. - Pulmonary ff. - IV Vancomycin- consult pharmacy. ID ff - plan- monitor patient - if develops SOB- repeat thoracentesis - consider Thoracic surgery consult- regarding pleurectomy/lung resection- recurrent empyema Acute on CKI -gentle IVF- 60 cc/hr - DC bumex - ff BMP DM, insulin requiring- erratic readings. -no further hypoglycemic readings 200s -sliding scale- for now- hold Levemir- improved readings -change IVF to NS- without D5 - ADA diet- patient refused to be on this diet- change back to regular -consider restarting HS insulin-states she was on hs history of hypothyroidism- on synthroid DVT prophylaxis - SCDs . Code Status DNR/DNI - verified by patient . Problem Qualifiers (1) GI bleed: Qualified Code: K92.2 - Gastrointestinal hemorrhage, unspecified gastrointestinal hemorrhage type Kortney Cee MD Dec 12, 2016 08:28
[2016-12-12] MEDS: ACETAMINOPHEN/HYDROcodone 325 MG/7.5 MG TAB PO SCH ×2 (09:00→21:00)
[2016-12-12] MEDS: PSYLLIUM FIBER SF/GF 6 GM POWD PKT PO SCH (09:00)
[2016-12-12] MEDS: ASPIRIN 81 MG CHEW TAB PO SCH (09:24)
[2016-12-12] MEDS: PANTOPRAZOLE SOD 40 MG DELAYED RELEASE TAB PO SCH ×2 (09:24→21:21)
[2016-12-12] MEDS: METOPROLOL TARTRATE 25 MG TAB PO SCH ×2 (09:25→21:20)
[2016-12-12] MEDS: DULoxetine HCl DR 60 MG CAP PO SCH (09:25)
[2016-12-12] MEDS: SODIUM CHLORIDE 0.9% FLUSH 10 ML FLUSH IV FLUSH SCH ×2 (09:26→21:00)
[2016-12-12] MEDS: SODIUM CHLOR 0.9% 1000 ML INJ 1,000 ML IV SCH (09:39)
[2016-12-12 10:29] LABS: HEMATOCRIT 34.2 % (35.0-46.0); MEAN CELL VOLUME 89.1 FL (80.0-100.0); MEAN CORPUSCULAR HEMOGLOBIN 28.6 PG (27.0-34.0); MEAN CORPUSCULAR HGB CONC 32.1 % (32.0-36.0); PLATELET COUNT 494 TH/MM3 (150-450); RED BLOOD COUNT 3.83 MIL/MM3 (4.00-5.30); RED CELL DISTRIBUTION WIDTH 19.7 % (11.6-17.2); REVIEW FLAG FINAL; WHITE BLOOD COUNT 9.3 TH/MM3 (4.0-11.0)
[2016-12-12 11:06] LABS: BICARBONATE 23.8 MEQ/L (21.0-32.0); POTASSIUM 4.2 MEQ/L (3.5-5.1)
[2016-12-12 12:00] VITALS: BP 116/78; PULSE 80; RESP 18; TEMP 97.2; O2SAT 100
[2016-12-12] MEDS ORDERED: PHARMACY ORDERED LAB ONE (12:45)
[2016-12-12 12:49] LABS: C. DIFF EPI 027 PRESUMPTIVE NEGATIVE (NEGATIVE); C. DIFF TOXIN PCR NEGATIVE (NEGATIVE)
[2016-12-12] MEDS: VANCOMYCIN INJ 1,250 MG in SODIUM CHLOR 0.9% 250 ML INJ 250 ML IV SCH (14:40)
[2016-12-12 16:00] VITALS: BP 130/73; PULSE 73; RESP 18; TEMP 98.8; O2SAT 99
[2016-12-12 21:01] VITALS: BP 140/73; PULSE 86; RESP 18; TEMP 99.3; O2SAT 99
[2016-12-12] MEDS: FENOFIBRATE 145 MG TAB PO SCH (21:20)
[2016-12-12] MEDS: traZODone HCL 50 MG TAB PO SCH (21:21)
[2016-12-12] MEDS: ATORVASTATIN 80 MG TAB PO SCH (21:21)
[2016-12-12] MEDS: valACYclovir HCL 500 MG TAB PO SCH (21:21)
[2016-12-12] MEDS: POTASSIUM CHLORIDE 10 MEQ CONTROLLED RELEASE TAB PO SCH (21:21)
[2016-12-13] VITALS (11 sets, daily range): BP systolic 105–142; BP diastolic 69–94; PULSE 66–84; RESP 16–18; TEMP 96.9–98.4; O2SAT 94–100
[2016-12-13] MEDS: hydrALAZINE HCL 25 MG TAB PO SCH ×3 (04:10→21:37)
[2016-12-13] MEDS: DILTIAZEM HCL 60 MG TAB PO SCH ×3 (04:10→21:37)
[2016-12-13] MEDS: SODIUM CHLOR 0.9% 1000 ML INJ 1,000 ML IV SCH ×2 (04:10→23:47)
[2016-12-13] MEDS: LEVOTHYROXINE SODIUM 150 MCG TAB PO SCH (04:10)
[2016-12-13] MEDS: LOW DOSE INSULIN NOVOLOG SUPPLEMENTAL SCALE SQ SCH ×4 (05:14→21:00)
[2016-12-13] MEDS: SUCRALFATE 1 GM/10 ML CUP PO SCH ×4 (05:24→21:37)
--- NOTE | 2016-12-13 07:50 | RADRPT ---
EXAM DATE/TIME: 12/11/2016 18:23 [facility] COMPARISON: US CHEST RIGHT, June 15, 2016, 14:19. INDICATIONS : Pleural effusion. MEDICAL HISTORY : Hypertension. Congestive heart failure. Cardiovascular problems. SURGICAL HISTORY : CABG. ENCOUNTER: [facility] ACUITY: 1 day PAIN SCORE: 0/10 LOCATION: Right chest MEASUREMENTS: SKIN TO PARIETAL PLEURA: 1.6 cm SKIN TO MAX SAFE DEPTH: 4.6 cm ESTIMATED FLUID VOLUME: 360 cc FLUID COMPOSITION: simple FINDINGS: The patient declined the procedure. No marking was performed. CONCLUSION: Small right-sided pleural effusion measuring approximately 400 mL in volume. The patient declined tho racentesis. John Peace Jr., MD on December 13, 2016 at 7:48 Board Certified Radiologist. This report was verified electronically.
[2016-12-13] MEDS: PSYLLIUM FIBER SF/GF 6 GM POWD PKT PO SCH (09:00)
[2016-12-13] MEDS: SODIUM CHLORIDE 0.9% FLUSH 10 ML FLUSH IV FLUSH SCH ×2 (09:00→21:00)
[2016-12-13] MEDS: ACETAMINOPHEN/HYDROcodone 325 MG/7.5 MG TAB PO SCH ×2 (09:00→21:00)
[2016-12-13] MEDS: PANTOPRAZOLE SOD 40 MG DELAYED RELEASE TAB PO SCH ×2 (09:32→21:37)
[2016-12-13] MEDS: METOPROLOL TARTRATE 25 MG TAB PO SCH ×2 (09:32→21:00)
[2016-12-13] MEDS: ASPIRIN 81 MG CHEW TAB PO SCH (09:33)
[2016-12-13] MEDS: DULoxetine HCl DR 60 MG CAP PO SCH (09:33)
--- NOTE | 2016-12-13 11:01 | HHI.PR ---
Objective Vitals Vital Signs Date Time Temp Pulse Resp B/P Pulse Ox O2 Delivery O2 Flow Rate FiO2 12/13/16 08:00 96.9 76 16 136/86 99 12/13/16 04:17 97.2 73 18 135/81 94 12/13/16 04:00 83 12/13/16 00:17 98.4 79 18 119/71 98 12/13/16 00:00 74 12/12/16 21:01 99.3 86 18 140/73 99 12/12/16 16:00 98.8 73 18 130/73 99 12/12/16 12:00 97.2 80 18 116/78 100 I/O 12/12/16 12/12/16 12/12/16 12/13/16 12/13/16 12/13/16 06:59 14:59 22:59 06:59 14:59 22:59 Intake Total 1200 ml 120 ml Output Total 1 ml 550 ml Balance -1 ml 650 ml 120 ml Intake Oral 1200 ml 120 ml Output Urine Total 1 ml 550 ml # Voids 1 # Bowel Movements 3 3 Result Diagram: 12/12/16 1000 12/12/16 1000 Objective Remarks awake and alert, NAD. laying flat in bed when I walked in anicteric lungs- decreased breath sounds right base, no rales, abdomen-soft, nontender extremities no edema neuro exam- unremarkable Procedures 12/10- colonoscopy- diverticuloses, no active bleeding, hemorrhoids, AVM- no bleeding -EGD- ulceration-gastric anastomotic area A/P Problem List: (1) GI bleed ICD Code: K92.2 Status: Acute Problem Qualifiers (1) GI bleed: Qualified Code: K92.2 - Gastrointestinal hemorrhage, unspecified gastrointestinal hemorrhage type Kortney Cee MD Dec 13, 2016 11:01 - on PPI, Metamucil, Carafate History of A. fib -on BB + CCB- - stable cardizem to 60 mg po q 8 - Xarelto okay to restart per GI. will recheck CBC today Sepsis- Pleural tube malfunction with - Empyema- Gram + cocci in pleural fluid. Leukocytosis recheck today - CXR shows: tunneled right thoracostomy tube in good position. Either pleural thickening or small volume loculated pleural effusion on the right. Mild cardiomegaly - CT chest shows: small bilateral pleural effusions which are smaller from the prior study. No discrete infiltrate. Cardiomegaly. - Pulmonary ff. - IV Vancomycin- consult pharmacy. ID ff - plan- monitor patient - if develops SOB- repeat thoracentesis - consider Thoracic surgery consult- regarding pleurectomy/lung resection- recurrent empyema Acute on CKI -gentle IVF- 60 cc/hr - DC bumex - ff BMP DM, insulin requiring- erratic readings. -no further hypoglycemic readings 200s -sliding scale- for now- hold Levemir- improved readings -change IVF to NS- without D5 - ADA diet- patient refused to be on this diet- change back to regular -consider restarting HS insulin-states she was on hs history of hypothyroidism- on synthroid DVT prophylaxis - SCDs . Code Status DNR/DNI - verified by patient . Problem Qualifiers (1) GI bleed: Qualified Code: K92.2 - Gastrointestinal hemorrhage, unspecified gastrointestinal hemorrhage type Kortney Cee MD Dec 13, 2016 11:01
--- NOTE | 2016-12-13 11:10 | HHI.PR ---
Subjective Remarks feels comfortable no fever or chills Objective Vitals Vital Signs Date Time Temp Pulse Resp B/P Pulse Ox O2 Delivery O2 Flow Rate FiO2 12/13/16 08:00 96.9 76 16 136/86 99 12/13/16 04:17 97.2 73 18 135/81 94 12/13/16 04:00 83 12/13/16 00:17 98.4 79 18 119/71 98 12/13/16 00:00 74 12/12/16 21:01 99.3 86 18 140/73 99 12/12/16 16:00 98.8 73 18 130/73 99 12/12/16 12:00 97.2 80 18 116/78 100 I/O 12/12/16 12/12/16 12/12/16 12/13/16 12/13/16 12/13/16 07:00 15:00 23:00 07:00 15:00 23:00 Intake Total 1200 ml 120 ml Output Total 1 ml 550 ml Balance -1 ml 650 ml 120 ml Intake Oral 1200 ml 120 ml Output Urine Total 1 ml 550 ml # Voids 1 # Bowel Movements 3 3 Result Diagram: 12/12/16 1000 12/12/16 1000 Imaging Last Impressions Chest Ultrasound 12/11/16 0000 Signed Impressions: Service Date/Time: Sunday, December 11, 2016 18:23 - CONCLUSION: Small right-sided pleural effusion measuring approximately 400 mL in volume. The patient declined thoracentesis. John Peace Jr., MD Chest CT 12/11/16 0000 Signed Impressions: Service Date/Time: Sunday, December 11, 2016 16:29 - CONCLUSION: 1. Enlargement in the bilateral pleural effusions. Both are small. 2. Development of intra-alveolar infiltrate within the left upper lobe. This could relate to pulmonary edema or an infectious infiltrate. 3. Significant coronary artery atherosclerotic calcifications. John Peace Jr., MD Chest X-Ray 12/10/16 0000 Signed Impressions: Service Date/Time: Saturday, December 10, 2016 10:52 - CONCLUSION: 1. Moderate size pleural effusion on the right. This has increased compared to prior dated 12/07/16. 2. Cardiomegaly and diffuse interstitial prominence suggesting congestive failure. Vraun Alvarez MD Objective Remarks awake and alert, NAD. 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 GI bleed- S/P EGD- gastric anastomotic ulcer , diverticuloses , hemorrhoids on colonoscopy 12/10- no active bleeding - S/P 2 units RBC. H and H stable - Okay by GI to restart Xarelto- - on PPI, Metamucil, Carafate History of A. fib -on BB + CCB- - stable cardizem to 60 mg po q 8 - restart Xarelto- Sepsis- Pleural tube malfunction with - recurrent Empyema- Gram + cocci in pleural fluid. -- Chest tube fell out few days ago Leukocytosis - CXR shows: tunneled right thoracostomy tube in good position. Either pleural thickening or small volume loculated pleural effusion on the right. Mild cardiomegaly - CT chest shows: small bilateral pleural effusions which are smaller from the prior study. No discrete infiltrate. Cardiomegaly. - Pulmonary ff. - Dr. Hall here. She ff up with Dr. Doss as OP - IV Vancomycin- pharmacy. ID ff - plan- monitor patient - if develops SOB- repeat thoracentesis - Thoracic surgery consult- opinion regarding decortication/lung resection- with recurrent empyema VS put in a chest tube drainage instead of putting in another pigtail catheter which gets clogged easily with empyema and falls out easily if plans for surgery - decortication/thoracotomy - this was discussed in the past with her - high Cardiac risks- if needs to be done- she wants Dr. Cardona to clear her for procedure Acute on CKI -gentle IVF- 60 cc/hr - creatinine trending down - DC bumex - ff BMP DM, insulin requiring- erratic readings. -no further hypoglycemic readings improved -sliding scale- for now- hold Levemir- improved readings - ADA diet- patient refused to be on this diet- change back to regular - consider restarting HS insulin-states she was on hs if blood sugars stable- history of hypothyroidism- on synthroid DVT prophylaxis - SCDs . Code Status DNR/DNI - verified by patient . Problem Qualifiers (1) GI bleed: Qualified Code: K92.2 - Gastrointestinal hemorrhage, unspecified gastrointestinal hemorrhage type Kortney Cee MD Dec 13, 2016 11:10
--- NOTE | 2016-12-13 12:22 | HHI.IDPN ---
Note Infectious Disease Note Patient is sitting up in recliner chair. Has dyspnea with talking. Denies chest pain. Afebrile. Pleural fluid culture has MRSA. PAST MEDICAL HISTORY Hypothyroidism, congestive heart failure, diabetes mellitus, hypertension, atrial fibrillation, COPD, gastroesophageal reflux disease, coronary disease, bypass graft February 2016, gastric bypass 2009, back surgery, bilateral cataract surgery, coronary stent in 2007. ALLERGIES PENICILLIN. ERYTHROMYCIN. LASIX. ANTIBIOTICS: Vancomycin. OBJECTIVE: Vital Signs Date Time Temp Pulse Resp B/P Pulse Ox O2 Delivery O2 Flow Rate FiO2 12/13/16 08:00 96.9 76 16 136/86 99 12/13/16 04:17 97.2 73 18 135/81 94 12/13/16 04:00 83 12/13/16 00:17 98.4 79 18 119/71 98 12/13/16 00:00 74 12/12/16 21:01 99.3 86 18 140/73 99 12/12/16 16:00 98.8 73 18 130/73 99 12/12/16 12/12/16 12/13/16 15:00 23:00 07:00 Intake Total 1200 ml 120 ml Output Total 550 ml Balance 650 ml 120 ml Intake Oral 1200 ml 120 ml Output Urine Total 550 ml # Voids 1 # Bowel Movements 3 Laboratory Tests Test 12/12/16 10:00 White Blood Count 9.3 TH/MM3 Red Blood Count 3.83 MIL/MM3 Hemoglobin 11.0 GM/DL Hematocrit 34.2 % Mean Corpuscular Volume 89.1 FL Mean Corpuscular Hemoglobin 28.6 PG Mean Corpuscular Hemoglobin 32.1 % Concent Red Cell Distribution Width 19.7 % Platelet Count 494 TH/MM3 Mean Platelet Volume 8.6 FL Laboratory Tests Test 12/12/16 12/13/16 10:00 10:15 Sodium Level 135 MEQ/L Potassium Level 4.2 MEQ/L Chloride Level 102 MEQ/L Carbon Dioxide Level 23.8 MEQ/L Anion Gap 9 MEQ/L Blood Urea Nitrogen 33 MG/DL Creatinine 1.13 MG/DL 0.97 MG/DL Estimat Glomerular Filtration 47 ML/MIN 56 ML/MIN Rate Random Glucose 327 MG/DL Calcium Level 8.8 MG/DL Microbiology Date/Time Procedure Status Source Growth 12/07/16 20:30 Urine Culture - Final Complete Urine Catheterized Urine 50-100,000 CFU/ML MIXED MANGO... 7/13/17 00:00 Aerobic Blood Culture Ordered Blood Peripheral Pending 12/09/16 00:00 Anaerobic Blood Culture Ordered Blood Peripheral Pending 12/09/16 00:00 Aerobic Blood Culture Ordered Blood Peripheral Pending 12/09/16 00:00 Anaerobic Blood Culture Ordered Blood Peripheral Pending 12/09/16 00:00 Gram Stain Ordered Fluid Pleural Fluid Pending 12/09/16 00:00 Body Fluid Culture Ordered Fluid Pleural Fluid Pending 12/09/16 04:13 Gram Stain - Final Resulted Fluid Pleural Fluid 12/09/16 04:13 Body Fluid Culture - Preliminary Resulted S. Aureus Mrsa 12/09/16 04:15 Gram Stain Received Fluid Pleural Fluid Pending 12/09/16 04:15 Body Fluid Culture Received Fluid Pleural Fluid Pending 12/09/16 06:21 Aerobic Blood Culture - Preliminary Resulted Blood Peripheral NO GROWTH IN 1 DAY 12/09/16 06:21 Anaerobic Blood Culture - Preliminary Resulted Blood Peripheral NO GROWTH IN 1 DAY 12/09/16 06:27 Aerobic Blood Culture - Preliminary Resulted Blood Peripheral NO GROWTH IN 1 DAY 12/09/16 06:27 Anaerobic Blood Culture - Preliminary Resulted Blood Peripheral NO GROWTH IN 1 DAY IMAGING. Chest Ultrasound 12/11/16 0000 Signed Impressions: Service Date/Time: Sunday, December 11, 2016 18:23 - CONCLUSION: Small right-sided pleural effusion measuring approximately 400 mL in volume. The patient declined thoracentesis. John Peace Jr., MD Chest CT 12/11/16 0000 Signed Impressions: Service Date/Time: Sunday, December 11, 2016 16:29 - CONCLUSION: 1. Enlargement in the bilateral pleural effusions. Both are small. 2. Development of intra-alveolar infiltrate within the left upper lobe. This could relate to pulmonary edema or an infectious infiltrate. 3. Significant coronary artery atherosclerotic calcifications. John Peace Jr., MD Chest X-Ray 12/10/16 0000 Signed Impressions: Service Date/Time: Saturday, December 10, 2016 10:52 - CONCLUSION: 1. Moderate size pleural effusion on the right. This has increased compared to prior dated 12/07/16. 2. Cardiomegaly and diffuse interstitial prominence suggesting congestive failure. Varun Alvarez MD Chest CT 12/07/16 0000 Signed Impressions: Service Date/Time: [place], December 07, 2016 20:39 - CONCLUSION: 1. Small bilateral pleural effusions which are smaller from the prior study. 2. No discrete infiltrate. 3. Cardiomegaly. 4. Significant coronary artery atherosclerotic calcifications. John Peace Jr., MD PHYSICAL EXAMINATION GENERAL: No acute distress. Awake and alert and oriented. HEENT: No icterus. Oropharynx moist mucosa without lesions. NECK: Supple without adenopathy. HEART: Nl s1s2, SID at LSB. LUNGS: Rales at the R. base. ABDOMEN: Bowel sounds present, soft, nontender. EXTREMITIES: No clubbing, cyanosis or edema. SKIN: No rash. The skin is pale. warm and moist. NEURO: Nonfocal. PSYCH: Patient pleasant, calm and cooperative. IMPRESSION Chronic/ recurrent pleural effusion. MRSA. Appears to have SOB related to pleural effusion. Leukocytosis. Improved. RECOMMENDATIONS 1. Continue vancomycin. Pharmacy managing. Adjusted for renal function. 2. Monitor renal function. 3. Monitor temp and WBC. 4. CV surgery evaluation for recurrent pleural effusion. Needs to remain on vancomycin. Nathan Morocho MD Dec 13, 2016 12:22
[2016-12-13] MEDS: VANCOMYCIN INJ 1,250 MG in SODIUM CHLOR 0.9% 250 ML INJ 250 ML IV SCH (14:35)
--- NOTE | 2016-12-13 18:05 | PD.CAR.PN ---
CVT Progress Note Subjective/Hospital Course: c/o dyspnea. She states she has had ~10 thoracentesis on the right. Pleurex catheter is out with retained loculated right pleural effusion. Objective: Vital Signs Date Time Temp Pulse Resp B/P Pulse Ox O2 Delivery O2 Flow Rate FiO2 12/13/16 16:00 97.0 84 18 142/87 100 12/13/16 12:05 77 12/13/16 12:00 97.4 84 18 122/94 98 12/13/16 08:00 96.9 76 16 136/86 99 12/13/16 07:59 79 12/13/16 04:17 97.2 73 18 135/81 94 12/13/16 04:00 83 12/13/16 00:17 98.4 79 18 119/71 98 12/13/16 00:00 74 12/12/16 21:01 99.3 86 18 140/73 99 Labs: Laboratory Tests Test 12/13/16 10:15 Creatinine 0.97 MG/DL (0.50-1.00) Estimat Glomerular Filtration 56 ML/MIN (>89) Rate Result Diagram: 12/12/16 1000 12/13/16 1015 Imaging: Last Impressions Chest Ultrasound 12/11/16 0000 Signed Impressions: Service Date/Time: Sunday, December 11, 2016 18:23 - CONCLUSION: Small right-sided pleural effusion measuring approximately 400 mL in volume. The patient declined thoracentesis. John Peace Jr., MD Chest CT 12/11/16 0000 Signed Impressions: Service Date/Time: Sunday, December 11, 2016 16:29 - CONCLUSION: 1. Enlargement in the bilateral pleural effusions. Both are small. 2. Development of intra-alveolar infiltrate within the left upper lobe. This could relate to pulmonary edema or an infectious infiltrate. 3. Significant coronary artery atherosclerotic calcifications. John Peace Jr., MD Chest X-Ray 12/10/16 0000 Signed Impressions: Service Date/Time: Saturday, December 10, 2016 10:52 - CONCLUSION: 1. Moderate size pleural effusion on the right. This has increased compared to prior dated 12/07/16. 2. Cardiomegaly and diffuse interstitial prominence suggesting congestive failure. Varun Alvarez MD Pulmonary: Decreased BS on right GI/: NABS Plan: I reviewed the patient's imaging studies and she appears to have a loculated right pleural effusion. I offered thoracoscopic drainage with pleuradesis, possible decortication. She is a poor candidate for thoracotomy, but would probably tolerate this procedure. She did not understand my description of what need to be done and wants it sketched for her. I offered to get her some literature and drawings tomorrow. If she eventually agrees, I will plan for this procedure this week. Mi Blackwell MD Dec 13, 2016 18:05
--- NOTE | 2016-12-13 19:15 | MB ---
cc: MI BLACKWELL DATE OF CONSULTATION: 12/13/2016. HISTORY OF PRESENT ILLNESS: This is a 76-year-old patient known to our service. She underwent coronary artery bypass graft x3 March 15, [address] Blackwell and a MAZE procedure. She has apparently had some pleural effusions postoperatively. She states that she has had ten thoracenteses in total since her discharge, also episodes of pneumonia. She was admitted initially to [facility] after surgery and then went to another rehab or skilled facility and has been home now. She has been under a lot of stress also as apparently it has been the anniversary of the loss of her son who committed suicide. She has been followed as an outpatient by Dr. Barger and recently saw him for follow up. Prior to that she had a PleurX catheter placed by interventional radiology here at [place] on November 23, 2016 and it was draining well up until the Tuesday before her admission when there was no drainage. She was also having pain at the insertion site. He told her to come into the emergency room and was concerned for sepsis and infection. At the time, she denied having any cough, shortness of breath or edema. She denied having any fevers; however, she was having some diarrhea stools. She had some poor appetite and weight loss of 70 pounds over 9 months. She also passed some bloody stool. She has since undergone colonoscopy and EGD with biopsy showing the GI bleed, probably from hemorrhoids, some ulcerations of the gastric pouch, a flat lesion in the jejunum, a possible AVM low risk for bleeding and severe diverticulosis. She had been on Xarelto since her discharge from hospital and he okayed her to continue on the Xarelto postoperatively. We were consulted because of a possible empyema in the right lower lobe. She did have her last thoracentesis. She had some pleural fluid sent which was Staph aureus MRSA resistant to oxacillin. Current antibiotic treatment includes vancomycin. PAST MEDICAL HISTORY: Past medical history includes: 1. Hypothyroidism. 2. Coronary artery disease. 3. Congestive heart failure. 4. Hyperlipidemia. 5. Arthritis. 6. Diabetes mellitus. 7. Chronic atrial fibrillation on Xarelto. 8. Hypertension. 9. COPD on home oxygen. 10. Gastroesophageal reflux disease (GERD). 11. Last echocardiogram was May of 2016, which showed an ejection fraction of 50%. PAST SURGICAL HISTORY: Surgeries include: 1. Coronary artery bypass graft x3 in February of 2016. 2. Gastric bypass in 2009. 3. Back surgery. 4. Bilateral cataract surgery. 5. She had a coronary stent placed in 2007. ALLERGIES: 1. ERYTHROMYCIN. 2. LASIX. 3. PENICILLIN. HOME MEDICATIONS: 1. Xarelto. 2. Cymbalta. 3. Trazodone. 4. Metoprolol. 5. Diltiazem. 6. Hydralazine. 7. Fenofibrate. 8. Atorvastatin. 9. NovoLog sliding scale insulin. 10. Levemir 15 at bedtime. 11. Bumex 1 p.o. daily. 12. Aspirin 81. 13. Valtrex. 14. Lortab PRN. 15. Protonix. 16. Potassium. FAMILY HISTORY: Noncontributory. SOCIAL HISTORY: Quit smoking 30 years ago. Prior to that, she smoked three packs per day. No alcohol. Apparently her son committed suicide had a recent anniversary REVIEW OF SYSTEMS: As above in the history of present illness and was unremarkable. PHYSICAL EXAMINATION: GENERAL: On exam, a very thin, frail-appearing female. VITAL SIGNS: Blood pressure is 140/80, heart rate of 84, temperature max 97. GENERAL: Patient is awake, alert and in no apparent distress. HEAD, EYES, EARS, NOSE, THROAT: Head is normocephalic, atraumatic. Pupils equal and reactive. Oral mucosa pink, moist. NECK: The neck is supple. No JVD. HEART: Heart sounds S1, S2, irregular rate and rhythm. No rubs, murmurs, gallops. LUNGS: Diminished in the bases with a faint expiratory wheeze. She does have a suture to the right lateral chest wall and also appears to be some type of a cuff from the prior catheter. No drainage is noted to the site. ABDOMEN: Abdomen is soft and nontender. No masses or organomegaly. EXTREMITIES: No cyanosis, clubbing or edema. LABORATORY FINDINGS: Shows hemoglobin of 11, hematocrit 35, white cell count 9.3, platelet count 494,000. Sodium 135, potassium 4.2, BUN of 33, creatinine 1.13. INR 1.0. Urinalysis shows some moderate leukocyte esterase. MRSA screen negative. C. difficile negative. Microbiology: Blood cultures are negative x4 days. Pleural fluid as above. Urine was mixed shaw. RADIOLOGICAL EXAMS: A CT chest on the : Enlargement, bilateral effusions. IMPRESSION: 1. This is a 76-year-old female with history of coronary artery bypass graft x3 in February of 2016 with post recurrent pleural effusions, multiple thoracenteses and then recent Aspira catheter, which was placed November 23, 2016. Dr. Blackwell did speak with the radiologist and they are going to evaluate for possible dislodged Aspira catheter that may need to be removed. 2. She has pleural fluid showing positive MRSA. The patient will probably benefit from a right video-assisted thoracoscopy with drainage of pleural effusion and possible decortication. The timing of this surgery will be dictated by Dr. Mi Blackwell. Dictated by MARINA Jorge. MD RADHA Hernandes/BRITTANY /4:52 PM /8:13 AM
--- NOTE | 2016-12-13 19:55 | HHI.PR ---
Subjective Remarks 76 YOWF with CAD,s/p CABG, recurrent pl eff, Rectal bleed Pl fluid growing MRSA Up in chair Comfortable, not toxic CXR right pl eff, no ptx Seen by CTS Objective Vital Signs Vital Signs Date Time Temp Pulse Resp B/P Pulse Ox O2 Delivery O2 Flow Rate FiO2 12/13/16 16:03 80 12/13/16 16:00 97.0 84 18 142/87 100 12/13/16 12:05 77 12/13/16 12:00 97.4 84 18 122/94 98 12/13/16 08:00 96.9 76 16 136/86 99 12/13/16 07:59 79 12/13/16 04:17 97.2 73 18 135/81 94 12/13/16 04:00 83 12/13/16 00:17 98.4 79 18 119/71 98 12/13/16 00:00 74 12/12/16 21:01 99.3 86 18 140/73 99 I/O 12/12/16 12/12/16 12/12/16 12/13/16 12/13/16 12/13/16 07:00 15:00 23:00 07:00 15:00 23:00 Intake Total 1200 ml 120 ml 1320 ml 1200 ml Output Total 1 ml 550 ml Balance -1 ml 650 ml 120 ml 1320 ml 1200 ml Intake Oral 1200 ml 120 ml 1320 ml IV Total 1200 ml Output Urine Total 1 ml 550 ml # Voids 1 5 1 # Bowel Movements 3 3 1 Result Diagram: 12/12/16 1000 12/13/16 1015 Objective Remarks GENERAL: MBMN WF, mild sob SKIN: Warm and dry. HEAD: Normocephalic. EYES: No scleral icterus. No injection or drainage. NECK: Supple, trachea midline. No JVD or lymphadenopathy. CARDIOVASCULAR: Regular rate and rhythm without murmurs, gallops, or rubs. RESPIRATORY: Breath sounds equal bilaterally. No accessory muscle use. GASTROINTESTINAL: Abdomen soft, non-tender, nondistended. MUSCULOSKELETAL: No cyanosis, or edema. BACK: Nontender without obvious deformity. No CVA tenderness. A/P Assessment and Plan Recrrent pl effusion Likly infected pl fluid CAD, CABG Rectal bleed PLAN: Cont ABX Vanco ID Following Thoracentesis if sob Planned for decortication. Calixto Hall MD Dec 13, 2016 19:55
[2016-12-13] MEDS: POTASSIUM CHLORIDE 10 MEQ CONTROLLED RELEASE TAB PO SCH (21:37)
[2016-12-13] MEDS: traZODone HCL 50 MG TAB PO SCH (21:37)
[2016-12-13] MEDS: FENOFIBRATE 145 MG TAB PO SCH (21:37)
[2016-12-13] MEDS: ATORVASTATIN 80 MG TAB PO SCH (21:37)
[2016-12-13] MEDS: valACYclovir HCL 500 MG TAB PO SCH (21:37)
[2016-12-14] VITALS (12 sets, daily range): BP systolic 129–141; BP diastolic 76–85; PULSE 71–89; RESP 16–18; TEMP 97.3–98.7; O2SAT 96–100
[2016-12-14] MEDS: LEVOTHYROXINE SODIUM 150 MCG TAB PO SCH (06:00)
[2016-12-14] MEDS: DILTIAZEM HCL 60 MG TAB PO SCH ×3 (06:00→21:02)
[2016-12-14] MEDS: SUCRALFATE 1 GM/10 ML CUP PO SCH ×4 (06:00→21:02)
[2016-12-14] MEDS: hydrALAZINE HCL 25 MG TAB PO SCH ×3 (06:00→21:02)
[2016-12-14] MEDS: LOW DOSE INSULIN NOVOLOG SUPPLEMENTAL SCALE SQ SCH ×4 (06:01→21:16)
[2016-12-14] MEDS: ACETAMINOPHEN/HYDROcodone 325 MG/7.5 MG TAB PO SCH ×2 (09:00→21:03)
[2016-12-14] MEDS: PSYLLIUM FIBER SF/GF 6 GM POWD PKT PO SCH (09:00)
[2016-12-14] MEDS: METOPROLOL TARTRATE 25 MG TAB PO SCH ×2 (09:25→21:03)
[2016-12-14] MEDS: PANTOPRAZOLE SOD 40 MG DELAYED RELEASE TAB PO SCH ×2 (09:25→21:02)
[2016-12-14] MEDS: ASPIRIN 81 MG CHEW TAB PO SCH (09:25)
[2016-12-14] MEDS: DULoxetine HCl DR 60 MG CAP PO SCH (09:25)
[2016-12-14] MEDS: RIVAROXABAN 20 MG TAB PO SCH (09:25)
[2016-12-14] MEDS: SODIUM CHLORIDE 0.9% FLUSH 10 ML FLUSH IV FLUSH SCH ×2 (09:26→21:03)
--- NOTE | 2016-12-14 11:01 | HHI.PR ---
Subjective Remarks Patient still complaining of shortness of breath. No chest pain. Waiting to have further discussion with CT surgery but wants to proceed with surgery to help her shortness of breath. Objective Vitals Vital Signs Date Time Temp Pulse Resp B/P Pulse Ox O2 Delivery O2 Flow Rate FiO2 12/14/16 08:00 98.0 74 18 129/79 97 12/14/16 04:29 87 12/14/16 04:00 97.3 86 18 132/81 99 12/14/16 00:00 74 12/14/16 00:00 77 16 99 12/13/16 20:00 97.8 66 18 105/69 98 12/13/16 20:00 76 12/13/16 16:03 80 12/13/16 16:00 97.0 84 18 142/87 100 12/13/16 12:05 77 12/13/16 12:00 97.4 84 18 122/94 98 I/O 12/13/16 12/13/16 12/13/16 12/14/16 12/14/16 12/14/16 06:59 14:59 22:59 06:59 14:59 22:59 Intake Total 1320 ml 1680 ml 240 ml Balance 1320 ml 1680 ml 240 ml Intake Oral 1320 ml 480 ml 240 ml IV Total 1200 ml # Voids 5 3 2 # Bowel Movements 1 Result Diagram: 12/12/16 1000 12/13/16 1015 Imaging Last Impressions Chest Ultrasound 12/11/16 0000 Signed Impressions: Service Date/Time: Sunday, December 11, 2016 18:23 - CONCLUSION: Small right-sided pleural effusion measuring approximately 400 mL in volume. The patient declined thoracentesis. John Peace Jr., MD Chest CT 12/11/16 0000 Signed Impressions: Service Date/Time: Sunday, December 11, 2016 16:29 - CONCLUSION: 1. Enlargement in the bilateral pleural effusions. Both are small. 2. Development of intra-alveolar infiltrate within the left upper lobe. This could relate to pulmonary edema or an infectious infiltrate. 3. Significant coronary artery atherosclerotic calcifications. John Peace Jr., MD Chest X-Ray 12/10/16 0000 Signed Impressions: Service Date/Time: Saturday, December 10, 2016 10:52 - CONCLUSION: 1. Moderate size pleural effusion on the right. This has increased compared to prior dated 12/07/16. 2. Cardiomegaly and diffuse interstitial prominence suggesting congestive failure. Varun Alvarez MD Objective Remarks GENERAL: Frail elderly female in no apparent distress. CARDIOVASCULAR: Normal rate and regular rhythm without murmurs, gallops, or rubs. RESPIRATORY: Good respiratory efforts. Diminished breath sounds bilaterally at the bases, crackles on the right base. Left upper lung field with some faint expiratory wheezing. GASTROINTESTINAL: Abdomen soft, non-tender, non-distended. Normal active bowel sounds MUSCULOSKELETAL: Extremities without cyanosis, or edema. NEURO: Alert & Oriented x4 to person, place, time, situation. Moves all ext x4 PSYCH: Appropriate mood and affect. Procedures 12/10- colonoscopy- diverticuloses, no active bleeding, hemorrhoids, AVM- no bleeding -EGD- ulceration-gastric anastomotic area A/P Problem List: (1) GI bleed ICD Code: K92.2 Status: Acute Assessment and Plan 76 Y/O female who was sent by regional coordinator for evaluation of suspected malfunctioning pleural tube but had bloody bowel movement while in ED. Patient with recurrent pleural effusion, has been seen by CT surgery who recommend VATS. Sepsis- Pleural tube malfunction with - recurrent Empyema- Gram + cocci in pleural fluid. -- Chest tube fell out few days ago Leukocytosis - CXR shows: tunneled right thoracostomy tube in good position. Either pleural thickening or small volume loculated pleural effusion on the right. Mild cardiomegaly - CT chest shows: small bilateral pleural effusions which are smaller from the prior study. No discrete infiltrate. Cardiomegaly. - Pulmonary ff. - Dr. Hall here. She ff up with Dr. Doss as OP - IV Vancomycin- pharmacy. ID ff - CT surgery following and planning for thoracoscopic drainage with pleurodesis , possible decortication. TO discuss with patient again today. GI bleed- S/P EGD- gastric anastomotic ulcer , diverticulosis , hemorrhoids on colonoscopy 12/10- no active bleeding - S/P 2 units RBC. H and H stable - Okay by GI to restart Xarelto- - on PPI, Metamucil, Carafate History of A. fib -on BB + CCB- - stable Cardizem to 60 mg po q 8 - restart Xarelto- Acute on CKI: Resolved - Resume Bumex -Avoid nephrotoxins. DM, insulin requiring- erratic readings. -no further hypoglycemic readings improved -sliding scale- for now- hold Levemir- improved readings - ADA diet- patient refused to be on this diet- change back to regular - consider restarting HS insulin-states she was on hs if blood sugars stable- history of hypothyroidism- on synthroid DVT prophylaxis - SCDs Discharge Planning Continue inpatient care. Problem Qualifiers (1) GI bleed: Qualified Code: K92.2 - Gastrointestinal hemorrhage, unspecified gastrointestinal hemorrhage type Kelvin Lucero MD Dec 14, 2016 11:01
[2016-12-14] MEDS: VANCOMYCIN INJ 1,250 MG in SODIUM CHLOR 0.9% 250 ML INJ 250 ML IV SCH (15:08)
[2016-12-14] MEDS: BUMETANIDE 1 MG TAB PO SCH (15:11)
--- NOTE | 2016-12-14 18:06 | PD.CAR.PN ---
CVT Progress Note Subjective/Hospital Course: c/o dyspnea. pt was eval by IR apparent no retained portion of pig tail cath that was accidentally dislodged by pt for right video assisted thorascopy with drainage of loculated effusion, possible decortication on Wednesday 12/20 continue antibiotics per ID Objective: GENERAL: SKIN: Warm and dry. HEAD: Normocephalic. EYES: No scleral icterus. No injection or drainage. NECK: Supple, trachea midline. No JVD or lymphadenopathy. CARDIOVASCULAR: Regular rate and rhythm without murmurs, gallops, or rubs. RESPIRATORY: diminished in bases right > left Breath sounds equal bilaterally. No accessory muscle use. GASTROINTESTINAL: Abdomen soft, non-tender, nondistended. MUSCULOSKELETAL: No cyanosis, or edema. BACK: Nontender without obvious deformity. No CVA tenderness. Vital Signs Date Time Temp Pulse Resp B/P Pulse Ox O2 Delivery O2 Flow Rate FiO2 12/14/16 16:00 98.1 71 16 141/76 100 12/14/16 12:00 97.8 75 18 137/85 100 12/14/16 08:00 98.0 74 18 129/79 97 12/14/16 04:29 87 12/14/16 04:00 97.3 86 18 132/81 99 12/14/16 00:00 74 12/14/16 00:00 77 16 99 12/13/16 20:00 97.8 66 18 105/69 98 12/13/16 20:00 76 Result Diagram: 12/12/16 1000 12/13/16 1015 (1) HTN (hypertension) (2) PNA (pneumonia) (3) Recurrent right pleural effusion Plan: for right VATS with drainage of locualted pleural effusion , possible decortication on Wednesday 12/20 Kamini Neves Dec 14, 2016 18:06
--- NOTE | 2016-12-14 19:13 | HHI.PR ---
Subjective Remarks 76 YOWF with CAD,s/p CABG, recurrent pl eff, Rectal bleed Pl fluid growing MRSA Up in chair Comfortable, not toxic CXR right pl eff, no ptx Seen by CTS, plans for VATS 12/20 Objective Vital Signs Vital Signs Date Time Temp Pulse Resp B/P Pulse Ox O2 Delivery O2 Flow Rate FiO2 12/14/16 16:00 98.1 71 16 141/76 100 12/14/16 12:00 97.8 75 18 137/85 100 12/14/16 08:00 98.0 74 18 129/79 97 12/14/16 04:29 87 12/14/16 04:00 97.3 86 18 132/81 99 12/14/16 00:00 74 12/14/16 00:00 77 16 99 12/13/16 20:00 97.8 66 18 105/69 98 12/13/16 20:00 76 I/O 12/13/16 12/13/16 12/13/16 12/14/16 12/14/16 12/14/16 06:59 14:59 22:59 06:59 14:59 22:59 Intake Total 1320 ml 1680 ml 240 ml 990 ml Balance 1320 ml 1680 ml 240 ml 990 ml Intake Oral 1320 ml 480 ml 240 ml 990 ml IV Total 1200 ml # Voids 5 3 2 6 # Bowel Movements 1 2 Result Diagram: 12/12/16 1000 12/13/16 1015 Objective Remarks GENERAL: MBMN WF, mild sob SKIN: Warm and dry. HEAD: Normocephalic. EYES: No scleral icterus. No injection or drainage. NECK: Supple, trachea midline. No JVD or lymphadenopathy. CARDIOVASCULAR: Regular rate and rhythm without murmurs, gallops, or rubs. RESPIRATORY: Breath sounds equal bilaterally. No accessory muscle use. GASTROINTESTINAL: Abdomen soft, non-tender, nondistended. MUSCULOSKELETAL: No cyanosis, or edema. BACK: Nontender without obvious deformity. No CVA tenderness. A/P Assessment and Plan Recrrent pl effusion Likly infected pl fluid CAD, CABG Rectal bleed PLAN: Cont ABX Vanco ID Following Thoracentesis if sob Planned for decortication, VATS 12/20. Calixto Hall MD Dec 14, 2016 19:13
[2016-12-14] MEDS: SODIUM CHLOR 0.9% 1000 ML INJ 1,000 ML IV SCH (20:30)
[2016-12-14] MEDS: traZODone HCL 50 MG TAB PO SCH (21:02)
[2016-12-14] MEDS: FENOFIBRATE 145 MG TAB PO SCH (21:02)
[2016-12-14] MEDS: valACYclovir HCL 500 MG TAB PO SCH (21:02)
[2016-12-14] MEDS: ATORVASTATIN 80 MG TAB PO SCH (21:03)
[2016-12-14] MEDS: POTASSIUM CHLORIDE 10 MEQ CONTROLLED RELEASE TAB PO SCH (21:06)
[2016-12-14] MEDS ORDERED: CHOLESTYRAMINE 4 GM PACKET PO ONE (21:45)
[2016-12-15] VITALS (9 sets, daily range): BP systolic 117–135; BP diastolic 67–83; PULSE 66–89; RESP 18–22; TEMP 96.7–98.7; O2SAT 95–100
[2016-12-15] MEDS: DILTIAZEM HCL 60 MG TAB PO SCH ×3 (04:57→21:23)
[2016-12-15] MEDS: LEVOTHYROXINE SODIUM 150 MCG TAB PO SCH (04:57)
[2016-12-15] MEDS: hydrALAZINE HCL 25 MG TAB PO SCH ×3 (04:57→21:23)
[2016-12-15] MEDS: SUCRALFATE 1 GM/10 ML CUP PO SCH ×4 (07:19→21:22)
[2016-12-15] MEDS: LOW DOSE INSULIN NOVOLOG SUPPLEMENTAL SCALE SQ SCH ×4 (07:20→21:39)
[2016-12-15 07:40] LABS: MEAN CELL VOLUME 88.5 FL (80.0-100.0); MEAN CORPUSCULAR HGB CONC 32.8 % (32.0-36.0); PLATELET COUNT 441 TH/MM3 (150-450); RED BLOOD COUNT 3.61 MIL/MM3 (4.00-5.30); RED CELL DISTRIBUTION WIDTH 19.2 % (11.6-17.2); REVIEW FLAG FINAL; WHITE BLOOD COUNT 8.4 TH/MM3 (4.0-11.0)
[2016-12-15 07:53] LABS: BICARBONATE 26.3 MEQ/L (21.0-32.0); POTASSIUM 4.9 MEQ/L (3.5-5.1)
[2016-12-15] MEDS: PANTOPRAZOLE SOD 40 MG DELAYED RELEASE TAB PO SCH ×2 (08:50→21:21)
[2016-12-15] MEDS: METOPROLOL TARTRATE 25 MG TAB PO SCH ×2 (08:50→21:23)
[2016-12-15] MEDS: ASPIRIN 81 MG CHEW TAB PO SCH (08:50)
[2016-12-15] MEDS: DULoxetine HCl DR 60 MG CAP PO SCH (08:51)
[2016-12-15] MEDS: SODIUM CHLORIDE 0.9% FLUSH 10 ML FLUSH IV FLUSH SCH ×2 (08:51→21:24)
[2016-12-15] MEDS: BUMETANIDE 1 MG TAB PO SCH (08:51)
[2016-12-15] MEDS: PSYLLIUM FIBER SF/GF 6 GM POWD PKT PO SCH (08:51)
[2016-12-15] MEDS: RIVAROXABAN 20 MG TAB PO SCH (08:51)
[2016-12-15] MEDS: ACETAMINOPHEN/HYDROcodone 325 MG/7.5 MG TAB PO SCH ×2 (08:51→21:42)
--- NOTE | 2016-12-15 09:47 | HHI.PR ---
Subjective Remarks Patient report that she is still short of breath. She is requesting to see her Combatant Diver Qualified Dr. Cardona prior to her planned procedure. Objective Vitals Vital Signs Date Time Temp Pulse Resp B/P Pulse Ox O2 Delivery O2 Flow Rate FiO2 12/15/16 05:00 96.7 75 18 125/74 96 12/15/16 04:08 79 12/15/16 00:25 71 12/15/16 00:00 98.0 76 18 135/83 95 12/14/16 22:03 18 12/14/16 20:10 81 12/14/16 20:00 98.7 12/14/16 19:42 82 140/80 96 12/14/16 16:02 82 12/14/16 16:00 98.1 71 16 141/76 100 12/14/16 12:02 71 12/14/16 12:00 97.8 75 18 137/85 100 I/O 12/14/16 12/14/16 12/14/16 12/15/16 12/15/16 12/15/16 07:00 15:00 23:00 07:00 15:00 23:00 Intake Total 240 ml 990 ml 480 ml 120 ml Balance 240 ml 990 ml 480 ml 120 ml Intake Oral 240 ml 990 ml 480 ml 120 ml # Voids 2 6 3 2 # Bowel Movements 2 Result Diagram: 12/15/1659 12/15/16658 Objective Remarks GENERAL: Frail elderly female in no apparent distress. CARDIOVASCULAR: Normal rate and regular rhythm without murmurs, gallops, or rubs. RESPIRATORY: Good respiratory efforts. Diminished breath sounds bilaterally at the bases, crackles on the right base. Left upper lung field with some faint expiratory wheezing. GASTROINTESTINAL: Abdomen soft, non-tender, non-distended. Normal active bowel sounds MUSCULOSKELETAL: Extremities without cyanosis, or edema. NEURO: Alert & Oriented x4 to person, place, time, situation. Moves all ext x4 PSYCH: Appropriate mood and affect. Procedures 12/10- colonoscopy- diverticuloses, no active bleeding, hemorrhoids, AVM- no bleeding -EGD- ulceration-gastric anastomotic area A/P Problem List: (1) GI bleed ICD Code: K92.2 Status: Acute Assessment and Plan 76 Y/O female who was sent by arresting gear operator for evaluation of suspected malfunctioning pleural tube but had bloody bowel movement while in ED. Patient with recurrent pleural effusion, has been seen by CT surgery who recommend VATS. Recurrent pleural effusion, empyema. Sepsis- Pleural tube malfunction. Gram + cocci in pleural fluid. -- Chest tube fell out days ago Leukocytosis - CT chest shows: small bilateral pleural effusions which are smaller from the prior study. No discrete infiltrate. Cardiomegaly. - Pulmonary Dr. Hall following here. She normally follows with Dr. Mills as OP - IV Vancomycin- pharmacy. ID following. - CT surgery following and planning for thoracoscopic drainage with pleurodesis , possible decortication. - Patient requested clearance from her network solutions architect, Dr. Cardona. Cardiology consulted GI bleed- S/P EGD- gastric anastomotic ulcer , diverticulosis , hemorrhoids on colonoscopy 12/10- no active bleeding - S/P 2 units RBC. H and H stable - Okay by GI to restart Xarelto- - on PPI, Metamucil, Carafate History of A. fib -on BB + CCB- - stable Cardizem to 60 mg po q 8 - restart Xarelto- Acute on CKI: Resolved - Resume Bumex -Avoid nephrotoxins. DM, insulin requiring- erratic readings. -no further hypoglycemic readings improved -sliding scale- for now- hold Levemir- improved readings -Patient refused diabetic diet. - consider restarting HS insulin-states she was on hs if blood sugars stable- history of hypothyroidism- on synthroid DVT prophylaxis - SCDs, on Xarelto Discharge Planning Continue inpatient care. Problem Qualifiers (1) GI bleed: Qualified Code: K92.2 - Gastrointestinal hemorrhage, unspecified gastrointestinal hemorrhage type Kelvin Lucero MD Dec 15, 2016 09:47
[2016-12-15] MEDS: VANCOMYCIN INJ 1,250 MG in SODIUM CHLOR 0.9% 250 ML INJ 250 ML IV SCH (14:32)
[2016-12-15] MEDS ORDERED: PHARMACY ORDERED LAB ONE (14:45)
--- NOTE | 2016-12-15 16:56 | PD.CONS ---
HPI Consult Requested By Primary Care Physician Remigio Lee DO History of Present Illness 76 y/o F with known CAD s/p CABG, atrial fibrillation consulted for preop, she is having a VATS procedure in the setting loculated pleural effusion on Tuesday. Denies fever, cough, hemoptysis, shortness of breath, or edema. She does have dyspnea. Review of Systems Eyes: DENIES: Amaurosis [place], Change in vision HEENT: DENIES: Lightheadedness, Change in hearing Respiratory: DENIES: See HPI, Cough, Snoring, Shortness of breath, Wheezing, Sputum production Cardiovascular: DENIES: See HPI, Chest pain, Palpitations, Syncope, Tachycardia Gastrointestinal: DENIES: Nausea, Vomiting, Change in bowel habits, Reflux, Bloody stools, Melena Genitourinary: DENIES: Urinary incontinence, Difficulty voiding Integumentary: DENIES: Rash Neurologic: DENIES: Tingling or numbness, Memory problems, Poor Balance, Stroke symptoms Musculoskeletal: DENIES: Joint pain, Muscle pain, Limited range of motion, Back pain Psychiatric: DENIES: Anxiety, Depression, Sleep disturbances Hematologic: DENIES: Bruising tendencies, Bleeding tendencies Endocrine: DENIES: Weight gain, Weight loss, Thyroid disease Past Family Social History Allergies: Coded Allergies: Erythromycin (Verified Allergy, Unknown, 12/07/16) Lasix (Verified Allergy, Unknown, 12/07/16) Penicillin (Verified Allergy, Unknown, 12/07/16) *MDRO Multi-Drug Resistant Organism (Verified Adverse Reaction, Unknown, ) 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 - 09/15/2016 & 12/09/16 MRSA (pleural fluid) Past Medical History Hypothyroidism Coronary artery disease status post stent placement in 2007 and coronary artery bypass graft 01 March 2016 Congestive heart failure Hyperlipidemia Arthritis Diabetes mellitus Atrial fibrillation on Xarelto Hypertension COPD on home oxygen 24 hours a day now GERD Echo w/ EF 50-55% recent JULIANE Past Surgical History . CABG 3 in February 2016 Gastric bypass 2010 Back surgery Bilateral cataract surgery Coronary stent placed 2007 Reported Medications Reported Meds & Active Scripts Active Lortab (Hydrocodone-Acetaminophen) 7.5-325 Mg Tab 1 Tab PO BID Xarelto (Rivaroxaban) 10 Mg Tab 20 Mg PO DAILY 30 Days Levemir Inj (Insulin Detemir) 1,000 unit/ 10 ML Vial 15 Units SQ HS [address] (Duloxetine HCl) 60 Mg Capdr 60 Mg PO DAILY 30 Days Bumetanide 1 Mg Tab 1 Mg PO DAILY 30 Days Metoprolol Tartrate 25 Mg Tab 25 Mg PO Q12HR Trazodone (Trazodone HCl) 50 Mg Tab 50 Mg PO HS 30 Days Pantoprazole (Pantoprazole Sodium) 40 Mg Tab 40 Mg PO DAILY 30 Days Thera M Plus (Multivitamins/Minerals Therapeutic) 1 Tab 1 Tab PO DAILY 30 Days Aspirin Low Strength (Aspirin) 81 Mg Chew 81 Mg PO DAILY 30 Days Reported Klor-Con 10 (Potassium Chloride) 10 Meq Tab 10 Meq PO HS Hydralazine HCl 25 Mg Tablet 25 Mg PO Q8HR Ergocalciferol 50,000 Unit Cap 50,000 Units PO Q7D ON MONDAYS Xarelto (Rivaroxaban) 20 Mg Tab 20 Mg PO DAILY Atorvastatin (Atorvastatin Calcium) 80 Mg Tab 80 Mg PO HS Diltiazem (Diltiazem HCl) 90 Mg Tab 90 Mg PO Q6 HR Novolog Inj (Insulin Aspart) 1,000 Unit/10 Ml Vial 2-10 Units SQ ACHS Sliding Scale Valtrex (Valacyclovir HCl) 1 Gm Tab 1 Gm PO HS Cyanocobalamin Inj (Cyanocobalamin) 1,000 Mcg/Ml Inj 1,000 Mcg IM EVERY 2 WEEKS Levothyroxine (Levothyroxine Sodium) 150 Mcg Tab 150 Mcg PO DAILY@0600 Fenofibrate 160 Mg Tab 160 Mg PO HS Active Ordered Medications Current Medications Medications (Trade) Dose Ordered Sig/Seema Route Start Time Stop Time Status Last Admin (NS Flush) 2 ml UNSCH PRN IV FLUSH 12/07/16 23:00 (NS Flush) 2 ml BID IV FLUSH 12/08/16 09:00 12/15/16 08:51 (Zofran Inj) 4 mg Q6H PRN IVP 12/07/16 23:00 12/14/16 19:45 (Narcan Inj) 0.4 mg UNSCH PRN IV 12/07/16 23:00 (Aspirin Chew) 81 mg DAILY PO 12/08/16 09:00 12/15/16 08:50 (Lipitor) 80 mg HS PO 12/08/16 21:00 12/14/16 21:03 (Cymbalta Dr) 60 mg DAILY PO 12/08/16 09:00 12/15/16 08:51 (Apresoline) 25 mg Q8HR PO 12/08/16 06:00 12/15/16 14:31 ([place] 7.5-325 Mg) 1 tab BID PO 12/08/16 09:00 12/14/16 21:03 (Synthroid) 150 mcg DAILY@0600 PO 12/08/16 06:00 12/15/16 04:57 (Lopressor) 25 mg Q12HR PO 12/08/16 09:00 12/15/16 08:50 (KCl) 10 meq HS PO 12/08/16 21:00 12/14/16 21:06 (Xarelto) 20 mg DAILY PO 12/08/16 09:00 12/15/16 08:51 (Desyrel) 50 mg HS PO 12/08/16 21:00 12/14/16 21:02 (Valtrex) 1,000 mg HS PO 12/08/16 21:00 12/14/16 21:02 (Tricor) 145 mg HS PO 12/08/16 21:00 12/14/16 21:02 (D50w (Vial) Inj) 25 ml UNSCH PRN IV PUSH 12/08/16 17:15 Glucagon 1 mg 1 mg UNSCH PRN OTHER 12/08/16 17:15 (Vancomycin Consult Pharmacy) 0 ml @ 0 mls/hr UNSCH OTHER 12/09/16 12:15 (Cardizem) 60 mg Q8HR PO 12/09/16 14:00 12/15/16 14:31 (Metamucil Smooth Texture Sf/ Gf Pkt) 1 pkt DAILY PO 12/11/16 09:00 12/11/16 09:50 (Protonix) 40 mg Q12HR PO 12/10/16 21:00 12/15/16 08:50 Sucralfate 1 gm 1 gm ACHS PO 12/10/16 16:00 12/15/16 11:33 Sodium Chloride 1,000 ml @ 50 mls/hr Q20H IV 12/12/16 08:30 12/13/16 04:10 (Vancomycin Inj/ NS 250 ml Inj) 262.5 ml @ 250 mls/hr Q24H IV 12/12/16 15:00 12/15/16 14:32 (Bumetanide) 1 mg DAILY PO 12/14/16 11:08 12/15/16 08:51 Physical Exam Vital Signs Vital Signs Date Time Temp Pulse Resp B/P Pulse Ox O2 Delivery O2 Flow Rate FiO2 12/15/16 12:00 98.7 86 20 133/73 99 12/15/16 08:00 98.7 80 22 117/67 98 12/15/16 05:00 96.7 75 18 125/74 96 12/15/16 04:08 79 12/15/16 00:25 71 12/15/16 00:00 98.0 76 18 135/83 95 12/14/16 22:03 18 12/14/16 20:10 81 12/14/16 20:00 98.7 12/14/16 19:42 82 140/80 96 Physical Exam GENERAL: Well-nourished, well-developed patient. SKIN: Warm and dry. HEAD: Normocephalic. EYES: No scleral icterus. No injection or drainage. NECK: Supple, trachea midline. No JVD or lymphadenopathy. CARDIOVASCULAR: Regular rate and rhythm without murmurs, gallops, or rubs. RESPIRATORY: Breath sounds equal bilaterally. No accessory muscle use. GASTROINTESTINAL: Abdomen soft, non-tender, nondistended. EXTREMITIES: No cyanosis, or edema. NEUROLOGICAL: Awake, alert, and oriented x 3. Non-focal. Laboratory Laboratory Tests Test 12/15/16 06:59 White Blood Count 8.4 Red Blood Count 3.61 Hemoglobin 10.5 Hematocrit 32.0 Mean Corpuscular Volume 88.5 Mean Corpuscular Hemoglobin 29.0 Mean Corpuscular Hemoglobin 32.8 Concent Red Cell Distribution Width 19.2 Platelet Count 441 Mean Platelet Volume 8.4 Sodium Level 140 Potassium Level 4.9 Chloride Level 107 Carbon Dioxide Level 26.3 Anion Gap 7 Blood Urea Nitrogen 22 Creatinine 0.74 Estimat Glomerular Filtration 77 Rate Random Glucose 131 Calcium Level 8.8 Result Diagram: 12/15/16 0659 12/15/16 0659 Imaging Last Impressions Chest Ultrasound 12/11/16 0000 Signed Impressions: Service Date/Time: Sunday, December 11, 2016 18:23 - CONCLUSION: Small right-sided pleural effusion measuring approximately 400 mL in volume. The patient declined thoracentesis. John Peace Jr., MD Chest CT 12/11/16 0000 Signed Impressions: Service Date/Time: Sunday, December 11, 2016 16:29 - CONCLUSION: 1. Enlargement in the bilateral pleural effusions. Both are small. 2. Development of intra-alveolar infiltrate within the left upper lobe. This could relate to pulmonary edema or an infectious infiltrate. 3. Significant coronary artery atherosclerotic calcifications. John Peace Jr., MD Chest X-Ray 12/10/16 0000 Signed Impressions: Service Date/Time: Saturday, December 10, 2016 10:52 - CONCLUSION: 1. Moderate size pleural effusion on the right. This has increased compared to prior dated 12/07/16. 2. Cardiomegaly and diffuse interstitial prominence suggesting congestive failure. Varun Alvarez MD Assessment and Plan Problem List: (1) Recurrent right pleural effusion Assessment and Plan: Ms. Garcia is undergoing intermediate risk surgery, no CV complaints, good functional capacity. Episode of bleeding in the hospital. No need for cardiac work up before surgery. Continue cardiac outpatient . (2) HTN (hypertension) (3) PNA (pneumonia) Harsh Mckeon MD Dec 15, 2016 16:56
--- NOTE | 2016-12-15 18:26 | HHI.PR ---
Subjective Remarks 76 YOWF with CAD,s/p CABG, recurrent pl eff, Rectal bleed Pl fluid growing MRSA Up in chair CXR right pl eff, no ptx Seen by CTS, plans for VATS 12/20 Ambulates, mild sob Objective Vital Signs Vital Signs Date Time Temp Pulse Resp B/P Pulse Ox O2 Delivery O2 Flow Rate FiO2 12/15/16 16:00 98.3 81 18 122/70 98 12/15/16 12:00 98.7 86 20 133/73 99 12/15/16 08:00 98.7 80 22 117/67 98 12/15/16 05:00 96.7 75 18 125/74 96 12/15/16 04:08 79 12/15/16 00:25 71 12/15/16 00:00 98.0 76 18 135/83 95 12/14/16 22:03 18 12/14/16 20:10 81 12/14/16 20:00 98.7 12/14/16 19:42 82 140/80 96 I/O 12/14/16 12/14/16 12/14/16 12/15/16 12/15/16 12/15/16 07:00 15:00 23:00 07:00 15:00 23:00 Intake Total 240 ml 990 ml 480 ml 120 ml 840 ml Balance 240 ml 990 ml 480 ml 120 ml 840 ml Intake Oral 240 ml 990 ml 480 ml 120 ml 840 ml # Voids 2 6 3 2 5 # Bowel Movements 2 1 Result Diagram: 12/15/16 0659 12/15/16 0659 Objective Remarks GENERAL: MBMN WF, mild sob SKIN: Warm and dry. HEAD: Normocephalic. EYES: No scleral icterus. No injection or drainage. NECK: Supple, trachea midline. No JVD or lymphadenopathy. CARDIOVASCULAR: Regular rate and rhythm without murmurs, gallops, or rubs. RESPIRATORY: Breath sounds equal bilaterally. No accessory muscle use. GASTROINTESTINAL: Abdomen soft, non-tender, nondistended. MUSCULOSKELETAL: No cyanosis, or edema. BACK: Nontender without obvious deformity. No CVA tenderness. A/P Assessment and Plan Recrrent pl effusion Likly infected pl fluid CAD, CABG Rectal bleed PLAN: Cont ABX Vanco ID Following Thoracentesis if sob Planned for decortication, VATS 12/20. Calixto Hall MD Dec 15, 2016 18:25
[2016-12-15] MEDS: SODIUM CHLOR 0.9% 1000 ML INJ 1,000 ML IV SCH (19:39)
[2016-12-15 20:42] LABS: C. DIFF EPI 027 PRESUMPTIVE NEGATIVE (NEGATIVE); C. DIFF TOXIN PCR NEGATIVE (NEGATIVE)
[2016-12-15] MEDS: valACYclovir HCL 500 MG TAB PO SCH (21:21)
[2016-12-15] MEDS: ATORVASTATIN 80 MG TAB PO SCH (21:22)
[2016-12-15] MEDS: POTASSIUM CHLORIDE 10 MEQ CONTROLLED RELEASE TAB PO SCH (21:22)
[2016-12-15] MEDS: traZODone HCL 50 MG TAB PO SCH (21:23)
[2016-12-15] MEDS: FENOFIBRATE 145 MG TAB PO SCH (21:41)
[2016-12-16] VITALS (13 sets, daily range): BP systolic 94–145; BP diastolic 61–77; PULSE 66–93; RESP 16–18; TEMP 96.4–98.1; O2SAT 97–100
[2016-12-16] MEDS ORDERED: ALPRAZolam 0.25 MG TAB PO ONE (00:15)
[2016-12-16] MEDS: LEVOTHYROXINE SODIUM 150 MCG TAB PO SCH (06:48)
[2016-12-16] MEDS: SUCRALFATE 1 GM/10 ML CUP PO SCH ×5 (06:48→21:09)
[2016-12-16] MEDS: hydrALAZINE HCL 25 MG TAB PO SCH ×3 (06:48→21:09)
[2016-12-16] MEDS: DILTIAZEM HCL 60 MG TAB PO SCH ×3 (06:48→21:09)
[2016-12-16] MEDS: LOW DOSE INSULIN NOVOLOG SUPPLEMENTAL SCALE SQ SCH ×4 (06:51→23:53)
[2016-12-16] MEDS: ACETAMINOPHEN/HYDROcodone 325 MG/7.5 MG TAB PO SCH ×3 (09:00→21:11)
[2016-12-16] MEDS: PSYLLIUM FIBER SF/GF 6 GM POWD PKT PO SCH (09:00)
[2016-12-16] MEDS: DULoxetine HCl DR 60 MG CAP PO SCH (10:04)
[2016-12-16] MEDS: METOPROLOL TARTRATE 25 MG TAB PO SCH ×2 (10:04→21:09)
[2016-12-16] MEDS: RIVAROXABAN 20 MG TAB PO SCH (10:04)
[2016-12-16] MEDS: PANTOPRAZOLE SOD 40 MG DELAYED RELEASE TAB PO SCH ×2 (10:05→21:09)
[2016-12-16] MEDS: BUMETANIDE 1 MG TAB PO SCH (10:05)
[2016-12-16] MEDS: ASPIRIN 81 MG CHEW TAB PO SCH (10:05)
[2016-12-16] MEDS: SODIUM CHLORIDE 0.9% FLUSH 10 ML FLUSH IV FLUSH SCH ×2 (10:05→21:11)
--- NOTE | 2016-12-16 10:45 | HHI.PR ---
Subjective Remarks Patient reports worsening shortness of breath today. States she was unable to lay flat last night, had to sleep in the chair. Pt. wondering if she will be able to wait until Tuesday. Objective Vitals Vital Signs Date Time Temp Pulse Resp B/P Pulse Ox O2 Delivery O2 Flow Rate FiO2 12/16/16 08:58 98.0 93 18 127/74 100 12/16/16 04:01 68 12/16/16 04:00 97.5 75 18 119/72 100 12/16/16 00:42 68 12/16/16 00:00 97.8 67 16 94/61 97 12/15/16 20:07 66 12/15/16 20:00 98.1 76 18 118/68 100 12/15/16 16:00 98.3 81 18 122/70 98 12/15/16 12:00 98.7 86 20 133/73 99 I/O 12/15/16 12/15/16 12/15/16 12/16/16 12/16/16 12/16/16 07:00 15:00 23:00 07:00 15:00 23:00 Intake Total 120 ml 1080 ml 240 ml Balance 120 ml 1080 ml 240 ml Intake Oral 120 ml 1080 ml 240 ml # Voids 2 7 2 # Bowel Movements 1 Result Diagram: 12/15/1659 12/15/16658 Objective Remarks GENERAL: Frail elderly female in no apparent distress. CARDIOVASCULAR: Normal rate and regular rhythm without murmurs, gallops, or rubs. RESPIRATORY: Good respiratory efforts. Markedly diminished breath sounds bilaterally at the bases, crackles on the right base. GASTROINTESTINAL: Abdomen soft, non-tender, non-distended. Normal active bowel sounds MUSCULOSKELETAL: Extremities without cyanosis, or edema. NEURO: Alert & Oriented x4 to person, place, time, situation. Moves all ext x4 PSYCH: Appropriate mood and affect. Procedures 12/10- colonoscopy- diverticuloses, no active bleeding, hemorrhoids, AVM- no bleeding -EGD- ulceration-gastric anastomotic area A/P Problem List: (1) GI bleed ICD Code: K92.2 Status: Acute Assessment and Plan 76 Y/O female who was sent by puppy walker for evaluation of suspected malfunctioning pleural tube but had bloody bowel movement while in ED. Patient with recurrent pleural effusion, has been seen by CT surgery who recommend VATS. Recurrent pleural effusion, empyema. Sepsis- Pleural tube malfunction. Gram + cocci in pleural fluid. -- Chest tube fell out days ago Leukocytosis - CT chest shows: small bilateral pleural effusions which are smaller from the prior study. No discrete infiltrate. Cardiomegaly. - Pulmonary Dr. Hall following here. She normally follows with Dr. Mills as OP - IV Vancomycin- pharmacy. ID following. - CT surgery following and planning for thoracoscopic drainage with pleurodesis , possible decortication. - Patient seen by [employer] Plate [employer]. - Repeat chest x-ray today for worsening shortness of breath. GI bleed- S/P EGD- gastric anastomotic ulcer , diverticulosis , hemorrhoids on colonoscopy 12/10- no active bleeding - S/P 2 units RBC. H and H stable - Okay by GI to restart Xarelto- - on PPI, Metamucil, Carafate History of A. fib -on BB + CCB- - stable on Cardizem to 60 mg po q 8 - restart Xarelto- Acute on CKI: Resolved - Resume Bumex -Avoid nephrotoxins. DM -sliding scale- for now- hold Levemir- improved readings -Patient refused diabetic diet. - consider restarting HS insulin-states she was on hs if blood sugars stable- history of hypothyroidism- on synthroid DVT prophylaxis - SCDs, on Xarelto Discharge Planning Continue inpatient care. Problem Qualifiers (1) GI bleed: Qualified Code: K92.2 - Gastrointestinal hemorrhage, unspecified gastrointestinal hemorrhage type Kelvin Lucero MD Dec 16, 2016 10:45
[2016-12-16] MEDS: SODIUM CHLOR 0.9% 1000 ML INJ 1,000 ML IV SCH (12:30)
[2016-12-16] MEDS ORDERED: PHARMACY ORDERED LAB ONE (14:45)
--- NOTE | 2016-12-16 15:31 | HHI.PR ---
Subjective Remarks 76 YOWF with CAD,s/p CABG, recurrent pl eff, Rectal bleed Pl fluid growing MRSA Up in chair CXR right pl eff, no ptx Seen by CTS, plans for VATS 12/20 Ambulates, mild sob no new complaint Objective Vital Signs Vital Signs Date Time Temp Pulse Resp B/P Pulse Ox O2 Delivery O2 Flow Rate FiO2 12/16/16 12:00 97.2 82 18 133/77 98 12/16/16 08:58 98.0 93 18 127/74 100 12/16/16 04:01 68 12/16/16 04:00 97.5 75 18 119/72 100 12/16/16 00:42 68 12/16/16 00:00 97.8 67 16 94/61 97 12/15/16 20:07 66 12/15/16 20:00 98.1 76 18 118/68 100 12/15/16 16:00 98.3 81 18 122/70 98 I/O 12/15/16 12/15/16 12/15/16 12/16/16 12/16/16 12/16/16 07:00 15:00 23:00 07:00 15:00 23:00 Intake Total 120 ml 1080 ml 240 ml Balance 120 ml 1080 ml 240 ml Intake Oral 120 ml 1080 ml 240 ml # Voids 2 7 2 # Bowel Movements 1 Result Diagram: 12/15/1659 12/15/16 0659 Objective Remarks GENERAL: MBMN WF, mild sob SKIN: Warm and dry. HEAD: Normocephalic. EYES: No scleral icterus. No injection or drainage. NECK: Supple, trachea midline. No JVD or lymphadenopathy. CARDIOVASCULAR: Regular rate and rhythm without murmurs, gallops, or rubs. RESPIRATORY: Breath sounds equal bilaterally. No accessory muscle use. GASTROINTESTINAL: Abdomen soft, non-tender, nondistended. MUSCULOSKELETAL: No cyanosis, or edema. BACK: Nontender without obvious deformity. No CVA tenderness. A/P Assessment and Plan Recrrent pl effusion Likly infected pl fluid CAD, CABG Rectal bleed PLAN: Cont ABX Vanco ID Following Thoracentesis if sob Planned for decortication, VATS 12/20. Calixto Hall MD Dec 16, 2016 15:30
--- NOTE | 2016-12-16 15:44 | RADRPT ---
EXAM DATE/TIME: 12/16/2016 14:52 [place] COMPARISON: Prior study 12/10/16 used for comparison. INDICATIONS : Pleural effusion. MEDICAL HISTORY : Hypertension. Congestive heart failure. Cardiovascular problems. SURGICAL HISTORY : CABG. ENCOUNTER: Subsequent ACUITY: 1 week PAIN SCORE: 0/10 LOCATION: Bilateral chest FINDINGS: A single view of the chest demonstrates there is again a large right pleural effusion. There is a partial collapse of the right lower lobe. Small left pleural effusion. Mild pulmonary h ilar vascular congestion. No visible pneumothorax. At least seven intact sternal wires. CONCLUSION: Large right pleural effusion with some collapse of the right lower lobe. Small left pleural effusion. Davon Edwards MD on December 16, 2016 at 15:41 Board Certified Radiologist. This report was verified electronically.
[2016-12-16] MEDS: VANCOMYCIN INJ 1,250 MG in SODIUM CHLOR 0.9% 250 ML INJ 250 ML IV SCH (16:05)
--- NOTE | 2016-12-16 19:08 | HHI.IDPN ---
Note Infectious Disease Note Patient is sitting up in recliner chair. Feels SOB. Notes that she had sudden episode of SOB that woke her up from bed and she had to sleep in the chair. No fever. CXR shows large pleural effusion and collapse of the R lower lobe. PAST MEDICAL HISTORY Hypothyroidism, congestive heart failure, diabetes mellitus, hypertension, atrial fibrillation, COPD, gastroesophageal reflux disease, coronary disease, bypass graft February 2016, gastric bypass 2009, back surgery, bilateral cataract surgery, coronary stent in 2007. ALLERGIES PENICILLIN. ERYTHROMYCIN. LASIX. ANTIBIOTICS: Vancomycin. OBJECTIVE: Vital Signs Date Time Temp Pulse Resp B/P Pulse Ox O2 Delivery O2 Flow Rate FiO2 12/16/16 16:00 98.1 74 18 129/74 100 12/16/16 15:40 66 12/16/16 12:36 76 12/16/16 12:00 97.2 82 18 133/77 98 12/16/16 08:58 98.0 93 18 127/74 100 12/16/16 08:21 79 12/16/16 04:01 68 12/16/16 04:00 97.5 75 18 119/72 100 12/16/16 00:42 68 12/16/16 00:00 97.8 67 16 94/61 97 12/15/16 20:07 66 12/15/16 20:00 98.1 76 18 118/68 100 Laboratory Tests Test 12/15/16 06:59 White Blood Count 8.4 TH/MM3 Red Blood Count 3.61 MIL/MM3 Hemoglobin 10.5 GM/DL Hematocrit 32.0 % Mean Corpuscular Volume 88.5 FL Mean Corpuscular Hemoglobin 29.0 PG Mean Corpuscular Hemoglobin 32.8 % Concent Red Cell Distribution Width 19.2 % Platelet Count 441 TH/MM3 Mean Platelet Volume 8.4 FL Laboratory Tests Test 12/15/16 06:59 Sodium Level 140 MEQ/L Potassium Level 4.9 MEQ/L Chloride Level 107 MEQ/L Carbon Dioxide Level 26.3 MEQ/L Anion Gap 7 MEQ/L Blood Urea Nitrogen 22 MG/DL Creatinine 0.74 MG/DL Estimat Glomerular Filtration 77 ML/MIN Rate Random Glucose 131 MG/DL Calcium Level 8.8 MG/DL PHYSICAL EXAMINATION GENERAL: No acute distress. Awake and alert and oriented. HEENT: No icterus. NECK: Supple without adenopathy. HEART: Normal rate and rhythm. SID at LSB. LUNGS: decreased breath sounds at the R. base. ABDOMEN: Bowel sounds present, soft, nontender. EXTREMITIES: No clubbing, cyanosis or edema. SKIN: No rash. The skin is pale. warm and moist. NEURO: Nonfocal. PSYCH: Patient pleasant, calm and cooperative. IMPRESSION Chronic/ recurrent pleural effusion. MRSA. Now with large pleural effusion and RLL collapse. SOB related to pleural effusion. Leukocytosis. Improved. Plans for VATS on 12/20 noted. RECOMMENDATIONS 1. Continue vancomycin. 2. Monitor renal function. 3. Monitor temp and WBC. Nathan Morocho MD Dec 16, 2016 19:08
[2016-12-16] MEDS: valACYclovir HCL 500 MG TAB PO SCH (21:09)
[2016-12-16] MEDS: FENOFIBRATE 145 MG TAB PO SCH (21:09)
[2016-12-16] MEDS: POTASSIUM CHLORIDE 10 MEQ CONTROLLED RELEASE TAB PO SCH (21:09)
[2016-12-16] MEDS: ATORVASTATIN 80 MG TAB PO SCH (21:10)
[2016-12-16] MEDS: traZODone HCL 50 MG TAB PO SCH (21:10)
[2016-12-17] VITALS (8 sets, daily range): BP systolic 110–146; BP diastolic 67–87; PULSE 70–93; RESP 16–18; TEMP 96.2–97.9; O2SAT 94–100
[2016-12-17] MEDS: SUCRALFATE 1 GM/10 ML CUP PO SCH ×4 (06:31→19:57)
[2016-12-17] MEDS: DILTIAZEM HCL 60 MG TAB PO SCH ×3 (06:31→20:18)
[2016-12-17] MEDS: hydrALAZINE HCL 25 MG TAB PO SCH ×3 (06:31→20:18)
[2016-12-17] MEDS: LEVOTHYROXINE SODIUM 150 MCG TAB PO SCH (06:31)
[2016-12-17] MEDS: LOW DOSE INSULIN NOVOLOG SUPPLEMENTAL SCALE SQ SCH ×4 (06:34→20:16)
[2016-12-17] MEDS: PANTOPRAZOLE SOD 40 MG DELAYED RELEASE TAB PO SCH ×2 (08:18→19:58)
[2016-12-17] MEDS: ACETAMINOPHEN/HYDROcodone 325 MG/7.5 MG TAB PO SCH ×2 (08:19→20:01)
[2016-12-17] MEDS: BUMETANIDE 1 MG TAB PO SCH (08:19)
[2016-12-17] MEDS: PSYLLIUM FIBER SF/GF 6 GM POWD PKT PO SCH (08:19)
[2016-12-17] MEDS: METOPROLOL TARTRATE 25 MG TAB PO SCH ×2 (08:19→19:58)
[2016-12-17] MEDS: DULoxetine HCl DR 60 MG CAP PO SCH (08:19)
[2016-12-17] MEDS: SODIUM CHLORIDE 0.9% FLUSH 10 ML FLUSH IV FLUSH SCH ×2 (08:23→20:16)
[2016-12-17] MEDS: SODIUM CHLOR 0.9% 1000 ML INJ 1,000 ML IV SCH (08:30)
--- NOTE | 2016-12-17 10:15 | HHI.PR ---
Subjective Remarks Patient reports shortness of breath is unchanged. No chest pain. Sitting up in the chair. Objective Vitals Vital Signs Date Time Temp Pulse Resp B/P Pulse Ox O2 Delivery O2 Flow Rate FiO2 12/17/16 08:00 97.2 81 18 139/81 98 12/17/16 04:00 97.4 75 18 145/83 100 12/17/16 00:00 96.5 70 17 119/71 96 12/16/16 21:15 70 12/16/16 20:13 97 Nasal Cannula 4.00 12/16/16 20:00 96.4 79 17 145/71 99 12/16/16 16:00 98.1 74 18 129/74 100 12/16/16 15:40 66 12/16/16 12:36 76 12/16/16 12:00 97.2 82 18 133/77 98 I/O 12/16/16 12/16/16 12/16/16 12/17/16 12/17/16 12/17/16 07:00 15:00 23:00 07:00 15:00 23:00 Intake Total 240 ml 720 ml 875 ml Balance 240 ml 720 ml 875 ml Intake Oral 240 ml 720 ml 600 ml IV Total 275 ml # Voids 2 4 # Bowel Movements 1 Result Diagram: 12/15/1659 12/15/16 0659 Objective Remarks GENERAL: Frail elderly female in no apparent distress. CARDIOVASCULAR: Normal rate and regular rhythm without murmurs, gallops, or rubs. RESPIRATORY: Good respiratory efforts. Markedly diminished breath sounds bilaterally at the bases, crackles on the right base. GASTROINTESTINAL: Abdomen soft, non-tender, non-distended. Normal active bowel sounds MUSCULOSKELETAL: Extremities without cyanosis, or edema. NEURO: Alert & Oriented x4 to person, place, time, situation. Moves all ext x4 Procedures 12/10- colonoscopy- diverticuloses, no active bleeding, hemorrhoids, AVM- no bleeding -EGD- ulceration-gastric anastomotic area A/P Problem List: (1) GI bleed ICD Code: K92.2 Status: Acute Assessment and Plan 76 Y/O female who was sent by biological sciences instructor for evaluation of suspected malfunctioning pleural tube but had bloody bowel movement while in ED. Patient with recurrent pleural effusion, has been seen by CT surgery who recommend VATS. Recurrent pleural effusion, empyema. Sepsis- Pleural tube malfunction. Gram + cocci in pleural fluid. -- Chest tube fell out days ago Leukocytosis - CT chest shows: small bilateral pleural effusions which are smaller from the prior study. No discrete infiltrate. Cardiomegaly. - Pulmonary Dr. Hall following here. She normally follows with Dr. Mills as OP - IV Vancomycin- pharmacy. ID following. - CT surgery following and planning for thoracoscopic drainage with pleurodesis , possible decortication. - Patient seen by Political Theory Professor. - Repeat chest x-ray with persistent effusion. Plan for surgical intervention on Tuesday as noted above. GI bleed- S/P EGD- gastric anastomotic ulcer , diverticulosis , hemorrhoids on colonoscopy 12/10- no active bleeding - S/P 2 units RBC. H and H stable - Okay by GI to restart Xarelto- - on PPI, Metamucil, Carafate History of A. fib -on BB + CCB- - stable on Cardizem to 60 mg po q 8 -Continue Xarelto- Acute on CKI: Resolved - Resume Bumex -Avoid nephrotoxins. DM -sliding scale- for now- hold Levemir- improved readings -Patient refused diabetic diet. - consider restarting HS insulin-states she was on hs if blood sugars stable- history of hypothyroidism- on Synthroid DVT prophylaxis - SCDs, on Xarelto Discharge Planning Continue inpatient care. Problem Qualifiers (1) GI bleed: Qualified Code: K92.2 - Gastrointestinal hemorrhage, unspecified gastrointestinal hemorrhage type Kelvin Lucero MD Dec 17, 2016 10:15
[2016-12-17] MEDS: RIVAROXABAN 20 MG TAB PO SCH (10:25)
[2016-12-17] MEDS: ASPIRIN 81 MG CHEW TAB PO SCH (10:25)
[2016-12-17] MEDS ORDERED: PHARMACY ORDERED LAB ONE (14:45)
[2016-12-17] MEDS: VANCOMYCIN INJ 1,250 MG in SODIUM CHLOR 0.9% 250 ML INJ 250 ML IV SCH (16:13)
[2016-12-17] MEDS: FLUTICASONE PROPIONATE 50 MCG/ACT 16 GM NASAL SPRAY EACH NARE SCH (16:13)
--- NOTE | 2016-12-17 16:25 | PD.CAR.PN ---
CVT Progress Note Subjective/Hospital Course: c/o dyspnea. pt was eval by IR apparent no retained portion of pig tail cath that was accidentally dislodged by pt for right video assisted thorascopy with drainage of loculated effusion, possible decortication on Wednesday 12/20 continue antibiotics per ID 12/17 for surgery on Wednesday 12/20 remains on pt agrees to resend DNR status for surgery Objective: GENERAL: SKIN: Warm and dry. HEAD: Normocephalic. EYES: No scleral icterus. No injection or drainage. NECK: Supple, trachea midline. No JVD or lymphadenopathy. CARDIOVASCULAR: Regular rate and rhythm without murmurs, gallops, or rubs. RESPIRATORY: very coarse breath sounds on right No accessory muscle use. GASTROINTESTINAL: Abdomen soft, non-tender, nondistended. MUSCULOSKELETAL: No cyanosis, or edema. BACK: Nontender without obvious deformity. No CVA tenderness. Vital Signs Date Time Temp Pulse Resp B/P Pulse Ox O2 Delivery O2 Flow Rate FiO2 12/17/16 12:00 96.2 81 18 141/81 100 12/17/16 11:21 89 12/17/16 08:00 97.2 81 18 139/81 98 12/17/16 08:00 84 12/17/16 04:00 97.4 75 18 145/83 100 12/17/16 00:00 96.5 70 17 119/71 96 12/16/16 21:15 70 12/16/16 20:13 97 Nasal Cannula 4.00 12/16/16 20:00 96.4 79 17 145/71 99 Result Diagram: 12/15/16 0659 12/15/16 0659 (1) Recurrent right pleural effusion Plan: Ms. Garcia is undergoing intermediate risk surgery, no CV complaints, good functional capacity. per Cardiology (2) HTN (hypertension) (3) PNA (pneumonia) Kamini Neves Dec 17, 2016 16:24
--- NOTE | 2016-12-17 18:19 | HHI.PR ---
Subjective Remarks 76 YOWF with CAD,s/p CABG, recurrent pl eff, Rectal bleed Pl fluid growing MRSA Up in chair CXR right pl eff, no ptx Seen by CTS, plans for VATS 12/20 Ambulates, mild sob Objective Vital Signs Vital Signs Date Time Temp Pulse Resp B/P Pulse Ox O2 Delivery O2 Flow Rate FiO2 12/17/16 12:00 96.2 81 18 141/81 100 12/17/16 11:21 89 12/17/16 08:00 97.2 81 18 139/81 98 12/17/16 08:00 84 12/17/16 04:00 97.4 75 18 145/83 100 12/17/16 00:00 96.5 70 17 119/71 96 12/16/16 21:15 70 12/16/16 20:13 97 Nasal Cannula 4.00 12/16/16 20:00 96.4 79 17 145/71 99 I/O 12/16/16 12/16/16 12/16/16 12/17/16 12/17/16 12/17/16 07:00 15:00 23:00 07:00 15:00 23:00 Intake Total 240 ml 720 ml 875 ml 720 ml Balance 240 ml 720 ml 875 ml 720 ml Intake Oral 240 ml 720 ml 600 ml 720 ml IV Total 275 ml # Voids 2 4 4 # Bowel Movements 1 3 Result Diagram: 12/15/1659 12/15/16 0659 Objective Remarks GENERAL: MBMN WF, mild sob SKIN: Warm and dry. HEAD: Normocephalic. EYES: No scleral icterus. No injection or drainage. NECK: Supple, trachea midline. No JVD or lymphadenopathy. CARDIOVASCULAR: Regular rate and rhythm without murmurs, gallops, or rubs. RESPIRATORY: Breath sounds decreased right chest. No accessory muscle use. GASTROINTESTINAL: Abdomen soft, non-tender, nondistended. MUSCULOSKELETAL: No cyanosis, or edema. BACK: Nontender without obvious deformity. No CVA tenderness. A/P Assessment and Plan Recrrent pl effusion Likly infected pl fluid CAD, CABG Rectal bleed PLAN: Cont ABX Vanco ID Following Thoracentesis if sob Planned for decortication, VATS 12/20. Supplement 02 to keep sat >90% Calixto Hall MD Dec 17, 2016 18:19
[2016-12-17] MEDS: valACYclovir HCL 500 MG TAB PO SCH (19:57)
[2016-12-17] MEDS: ATORVASTATIN 80 MG TAB PO SCH (19:57)
[2016-12-17] MEDS: FENOFIBRATE 145 MG TAB PO SCH (19:57)
[2016-12-17] MEDS: POTASSIUM CHLORIDE 10 MEQ CONTROLLED RELEASE TAB PO SCH (19:58)
[2016-12-17] MEDS: traZODone HCL 50 MG TAB PO SCH (19:58)
[2016-12-18] VITALS (7 sets, daily range): BP systolic 127–161; BP diastolic 62–94; PULSE 80–93; RESP 18–20; TEMP 96.7–97.9; O2SAT 96–100
[2016-12-18] MEDS: LOW DOSE INSULIN NOVOLOG SUPPLEMENTAL SCALE SQ SCH ×4 (06:22→22:16)
[2016-12-18] MEDS: hydrALAZINE HCL 25 MG TAB PO SCH ×3 (06:23→22:13)
[2016-12-18] MEDS: SUCRALFATE 1 GM/10 ML CUP PO SCH ×4 (06:23→22:14)
[2016-12-18] MEDS: LEVOTHYROXINE SODIUM 150 MCG TAB PO SCH (06:23)
[2016-12-18] MEDS: SODIUM CHLOR 0.9% 1000 ML INJ 1,000 ML IV SCH (06:23)
[2016-12-18] MEDS: DILTIAZEM HCL 60 MG TAB PO SCH ×3 (06:23→22:14)
[2016-12-18] MEDS: BUMETANIDE 1 MG TAB PO SCH (08:35)
[2016-12-18] MEDS: PANTOPRAZOLE SOD 40 MG DELAYED RELEASE TAB PO SCH ×2 (08:35→22:14)
[2016-12-18] MEDS: FLUTICASONE PROPIONATE 50 MCG/ACT 16 GM NASAL SPRAY EACH NARE SCH (08:35)
[2016-12-18] MEDS: METOPROLOL TARTRATE 25 MG TAB PO SCH ×2 (08:35→22:14)
[2016-12-18] MEDS: DULoxetine HCl DR 60 MG CAP PO SCH (08:35)
[2016-12-18] MEDS: PSYLLIUM FIBER SF/GF 6 GM POWD PKT PO SCH (08:43)
[2016-12-18] MEDS: ACETAMINOPHEN/HYDROcodone 325 MG/7.5 MG TAB PO SCH (08:43)
--- NOTE | 2016-12-18 10:33 | HHI.PR ---
Subjective Remarks Patient reports an episode of chest discomfort lasting 3 minutes this morning. Dull pain midchest, radiating to her right side. No further symptoms. Objective Vitals Vital Signs Date Time Temp Pulse Resp B/P Pulse Ox O2 Delivery O2 Flow Rate FiO2 12/18/16 08:00 86 12/18/16 08:00 96.9 84 20 127/76 99 12/18/16 07:37 97.9 80 20 135/62 97 12/17/16 20:52 80 12/17/16 20:00 97.9 85 18 146/87 97 12/17/16 16:00 97.9 78 16 110/67 94 12/17/16 12:00 96.2 81 18 141/81 100 12/17/16 11:21 89 I/O 12/17/16 12/17/16 12/17/16 12/18/16 12/18/16 12/18/16 07:00 15:00 23:00 07:00 15:00 23:00 Intake Total 720 ml Balance 720 ml Intake Oral 720 ml # Voids 4 # Bowel Movements 3 Result Diagram: 12/15/1659 12/15/1659 Objective Remarks GENERAL: Frail elderly female in no apparent distress. CARDIOVASCULAR: Normal rate and regular rhythm without murmurs, gallops, or rubs. RESPIRATORY: Good respiratory efforts. Markedly diminished breath sounds bilaterally at the bases, crackles on the right base. GASTROINTESTINAL: Abdomen soft, non-tender, non-distended. Normal active bowel sounds MUSCULOSKELETAL: Extremities without cyanosis, or edema. NEURO: Alert & Oriented x4 to person, place, time, situation. Moves all ext x4 Procedures 12/10- colonoscopy- diverticuloses, no active bleeding, hemorrhoids, AVM- no bleeding -EGD- ulceration-gastric anastomotic area A/P Problem List: (1) GI bleed ICD Code: K92.2 Status: Acute Assessment and Plan 76 Y/O female who was sent by retread mold operator for evaluation of suspected malfunctioning pleural tube but had bloody bowel movement while in ED. Patient with recurrent pleural effusion, has been seen by CT surgery who recommend VATS. Recurrent pleural effusion, empyema. Sepsis- Pleural tube malfunction. Gram + cocci in pleural fluid. -- Chest tube fell out days ago Leukocytosis - CT chest shows: small bilateral pleural effusions which are smaller from the prior study. No discrete infiltrate. Cardiomegaly. - Pulmonary Dr. Hall following here. She normally follows with Dr. Mills as OP - IV Vancomycin- pharmacy. ID following. - CT surgery following and planning for thoracoscopic drainage with pleurodesis , possible decortication. - Patient seen by Investment Banker. - Repeat chest x-ray with persistent effusion. Plan for surgical intervention on Tuesday as noted above. - Brief chest pain likely related to referred pain from effusion. Monitor. If recur, will do ACS workup. GI bleed- S/P EGD- gastric anastomotic ulcer , diverticulosis , hemorrhoids on colonoscopy 12/10- no active bleeding - S/P 2 units RBC. H and H stable - Okay by GI to restart Xarelto- - on PPI, Metamucil, Carafate History of A. fib -on BB + CCB- - stable on Cardizem to 60 mg po q 8 -Continue Xarelto- Acute on CKI: Resolved - Resume Bumex -Avoid nephrotoxins. DM -sliding scale- for now- hold Levemir- improved readings -Patient refused diabetic diet. - consider restarting HS insulin-states she was on hs if blood sugars stable- history of hypothyroidism- on Synthroid DVT prophylaxis - SCDs, on Xarelto Discharge Planning Continue inpatient care. Problem Qualifiers (1) GI bleed: Qualified Code: K92.2 - Gastrointestinal hemorrhage, unspecified gastrointestinal hemorrhage type Kelvin Lucero MD Dec 18, 2016 10:33
[2016-12-18] MEDS: ASPIRIN 81 MG CHEW TAB PO SCH (12:02)
[2016-12-18] MEDS: SODIUM CHLORIDE 0.9% FLUSH 10 ML FLUSH IV FLUSH SCH ×2 (12:18→22:15)
[2016-12-18] MEDS: ALPRAZolam 0.25 MG TAB PO PRN ×2 (14:21→22:13)
[2016-12-18] MEDS: VANCOMYCIN 1,000 MG/NS 250 ML IV SCH ×2 (17:11)
[2016-12-18] MEDS: POTASSIUM CHLORIDE 10 MEQ CONTROLLED RELEASE TAB PO SCH (22:13)
[2016-12-18] MEDS: valACYclovir HCL 500 MG TAB PO SCH (22:13)
[2016-12-18] MEDS: FENOFIBRATE 145 MG TAB PO SCH (22:13)
[2016-12-18] MEDS: traZODone HCL 50 MG TAB PO SCH (22:14)
[2016-12-18] MEDS: ATORVASTATIN 80 MG TAB PO SCH (22:14)
[2016-12-19] VITALS (9 sets, daily range): BP systolic 131–158; BP diastolic 73–99; PULSE 77–97; RESP 17–20; TEMP 96.5–98; O2SAT 97–100
[2016-12-19] MEDS: LEVOTHYROXINE SODIUM 150 MCG TAB PO SCH (06:07)
[2016-12-19] MEDS: SUCRALFATE 1 GM/10 ML CUP PO SCH ×4 (06:07→21:03)
[2016-12-19] MEDS: DILTIAZEM HCL 60 MG TAB PO SCH ×3 (06:07→21:03)
[2016-12-19] MEDS: LOW DOSE INSULIN NOVOLOG SUPPLEMENTAL SCALE SQ SCH ×4 (06:07→21:00)
[2016-12-19] MEDS: hydrALAZINE HCL 25 MG TAB PO SCH ×3 (06:07→21:03)
[2016-12-19 06:42] LABS: HEMATOCRIT 32.6 % (35.0-46.0); MEAN CELL VOLUME 88.6 FL (80.0-100.0); MEAN CORPUSCULAR HEMOGLOBIN 29.4 PG (27.0-34.0); MEAN CORPUSCULAR HGB CONC 33.1 % (32.0-36.0); PLATELET COUNT 672 TH/MM3 (150-450); RED BLOOD COUNT 3.68 MIL/MM3 (4.00-5.30); RED CELL DISTRIBUTION WIDTH 19.8 % (11.6-17.2); REVIEW FLAG FINAL; WHITE BLOOD COUNT 11.8 TH/MM3 (4.0-11.0)
[2016-12-19 06:51] LABS: BICARBONATE 30.9 MEQ/L (21.0-32.0); POTASSIUM 4.2 MEQ/L (3.5-5.1)
[2016-12-19] MEDS: SODIUM CHLORIDE 0.9% FLUSH 10 ML FLUSH IV FLUSH SCH ×2 (09:00→21:03)
[2016-12-19] MEDS: PSYLLIUM FIBER SF/GF 6 GM POWD PKT PO SCH (09:00)
[2016-12-19] MEDS: PANTOPRAZOLE SOD 40 MG DELAYED RELEASE TAB PO SCH ×2 (10:14→21:03)
[2016-12-19] MEDS: BUMETANIDE 1 MG TAB PO SCH (10:14)
[2016-12-19] MEDS: ASPIRIN 81 MG CHEW TAB PO SCH (10:14)
[2016-12-19] MEDS: DULoxetine HCl DR 60 MG CAP PO SCH (10:14)
[2016-12-19] MEDS: METOPROLOL TARTRATE 25 MG TAB PO SCH ×2 (10:14→21:03)
[2016-12-19] MEDS: FLUTICASONE PROPIONATE 50 MCG/ACT 16 GM NASAL SPRAY EACH NARE SCH (10:15)
--- NOTE | 2016-12-19 11:53 | HHI.PR ---
Subjective Remarks Feeling depressed today because she has been in the hospital so long. Shortness of breath is unchanged. Objective Vitals Vital Signs Date Time Temp Pulse Resp B/P Pulse Ox O2 Delivery O2 Flow Rate FiO2 12/19/16 08:00 96.6 79 20 131/83 99 12/19/16 06:20 86 12/19/16 06:03 97.3 78 17 149/90 97 12/19/16 00:00 96.9 84 18 135/79 98 12/19/16 00:00 80 12/18/16 20:00 97.5 84 18 161/87 96 12/18/16 20:00 93 12/18/16 18:09 89 12/18/16 16:41 96.7 81 20 141/88 99 12/18/16 12:07 97.9 82 20 148/94 100 12/18/16 12:00 86 I/O 12/18/16 12/18/16 12/18/16 12/19/16 12/19/16 12/19/16 07:00 15:00 23:00 07:00 15:00 23:00 Intake Total 720 ml 480 ml 240 ml Balance 720 ml 480 ml 240 ml Intake Oral 720 ml 480 ml 240 ml # Voids 5 3 3 # Bowel Movements 5 3 0 Result Diagram: 12/19/16 0512/19/16 05 Objective Remarks GENERAL: Frail elderly female in no apparent distress. CARDIOVASCULAR: Normal rate and regular rhythm without murmurs, gallops, or rubs. RESPIRATORY: Good respiratory efforts. Markedly diminished breath sounds bilaterally at the bases, crackles on the right base. GASTROINTESTINAL: Abdomen soft, non-tender, non-distended. Normal active bowel sounds MUSCULOSKELETAL: Extremities without cyanosis, or edema. NEURO: Alert & Oriented x4 to person, place, time, situation. Moves all ext x4 Procedures 12/10- colonoscopy- diverticuloses, no active bleeding, hemorrhoids, AVM- no bleeding -EGD- ulceration-gastric anastomotic area A/P Problem List: (1) GI bleed ICD Code: K92.2 Status: Acute Assessment and Plan 76 Y/O female who was sent by seaman for evaluation of suspected malfunctioning pleural tube but had bloody bowel movement while in ED. Patient with recurrent pleural effusion, has been seen by CT surgery who recommend VATS. Recurrent pleural effusion, empyema. Sepsis- Pleural tube malfunction. Gram + cocci in pleural fluid. -- Chest tube fell out days ago Leukocytosis - CT chest shows: small bilateral pleural effusions which are smaller from the prior study. No discrete infiltrate. Cardiomegaly. - Pulmonary Dr. Hall following here. She normally follows with Dr. Mills as OP - IV Vancomycin- pharmacy. ID following. - CT surgery following and planning for thoracoscopic drainage with pleurodesis , possible decortication tomorrow. GI bleed- S/P EGD- gastric anastomotic ulcer , diverticulosis , hemorrhoids on colonoscopy 12/10- no active bleeding - S/P 2 units RBC. H and H stable - Okay by GI to restart Xarelto- - on PPI, Metamucil, Carafate History of A. fib -on BB + CCB- - stable on Cardizem to 60 mg po q 8 -Continue Xarelto- Acute on CKI: Resolved - Resume Bumex -Avoid nephrotoxins. Anxiety/depression: Continue Cymbalta Xanax PRN DM -sliding scale- for now- hold Levemir- improved readings -Patient refused diabetic diet. - consider restarting HS insulin-states she was on hs if blood sugars stable- history of hypothyroidism- on Synthroid DVT prophylaxis - SCDs, on Xarelto Discharge Planning Continue inpatient care. Problem Qualifiers (1) GI bleed: Qualified Code: K92.2 - Gastrointestinal hemorrhage, unspecified gastrointestinal hemorrhage type Kelvin Lucero MD Dec 19, 2016 11:53 Kelvin Lucero MD Dec 19, 2016 11:53
--- NOTE | 2016-12-19 13:50 | PD.CAR.PN ---
CVT Progress Note Subjective/Hospital Course: c/o dyspnea. pt was eval by IR apparent no retained portion of pig tail cath that was accidentally dislodged by pt for right video assisted thorascopy with drainage of loculated effusion, possible decortication on Wednesday 12/20 continue antibiotics per ID 12/17 for surgery on Wednesday 12/20 remains on pt agrees to resend DNR status for surgery 12/19/16 No complaints today. Ready for her surgery tomorrow. Objective: Vital Signs Date Time Temp Pulse Resp B/P Pulse Ox O2 Delivery O2 Flow Rate FiO2 12/19/16 13:03 87 12/19/16 12:35 96.9 78 20 151/90 99 12/19/16 08:00 96.6 79 20 131/83 99 12/19/16 06:20 86 12/19/16 06:03 97.3 78 17 149/90 97 12/19/16 00:00 96.9 84 18 135/79 98 12/19/16 00:00 80 12/18/16 20:00 97.5 84 18 161/87 96 12/18/16 20:00 93 12/18/16 18:09 89 12/18/16 16:41 96.7 81 20 141/88 99 Labs: Laboratory Tests Test 12/19/16 12/19/16 05:21 05:23 Sodium Level 138 MEQ/L (136-145) Potassium Level 4.2 MEQ/L (3.5-5.1) Chloride Level 103 MEQ/L (98-107) Carbon Dioxide Level 30.9 MEQ/L (21.0-32.0) Anion Gap 4 MEQ/L (5-15) Blood Urea Nitrogen 23 MG/DL (7-18) Creatinine 0.95 MG/DL (0.50-1.00) Estimat Glomerular Filtration 58 ML/MIN (>89) Rate Random Glucose 152 MG/DL (74-106) Calcium Level 9.2 MG/DL (8.5-10.1) White Blood Count 11.8 TH/MM3 (4.0-11.0) Red Blood Count 3.68 MIL/MM3 (4.00-5.30) Hemoglobin 10.8 GM/DL (11.6-15.3) Hematocrit 32.6 % (35.0-46.0) Mean Corpuscular Volume 88.6 FL (80.0-100.0) Mean Corpuscular Hemoglobin 29.4 PG (27.0-34.0) Mean Corpuscular Hemoglobin 33.1 % Concent (32.0-36.0) Red Cell Distribution Width 19.8 % (11.6-17.2) Platelet Count 672 TH/MM3 (150-450) Mean Platelet Volume 8.6 FL (7.0-11.0) Result Diagram: 12/19/16 0523 12/19/16 0521 Imaging: Last Impressions Chest X-Ray 12/16/16 0000 Signed Impressions: Service Date/Time: November 14:52 - CONCLUSION: Large right pleural effusion with some collapse of the right lower lobe. Small left pleural effusion. Davon Edwards MD Chest Ultrasound 12/11/16 0000 Signed Impressions: Service Date/Time: Sunday, December 11, 2016 18:23 - CONCLUSION: Small right-sided pleural effusion measuring approximately 400 mL in volume. The patient declined thoracentesis. John Peace Jr., MD Chest CT 12/11/16 0000 Signed Impressions: Service Date/Time: Sunday, December 11, 2016 16:29 - CONCLUSION: 1. Enlargement in the bilateral pleural effusions. Both are small. 2. Development of intra-alveolar infiltrate within the left upper lobe. This could relate to pulmonary edema or an infectious infiltrate. 3. Significant coronary artery atherosclerotic calcifications. John Peace Jr., MD Cardiovascular: RRR Pulmonary: Decreased BS on right GI/: NABS Plan: I addressed any questions/concerns she might have and she is agreeable to right VATS tomorrow. (1) Recurrent right pleural effusion Plan: Ms. Garcia is undergoing intermediate risk surgery, no CV complaints, good functional capacity. per Cardiology (2) HTN (hypertension) (3) PNA (pneumonia) Mi Blackwell MD Dec 19, 2016 13:50
[2016-12-19] MEDS ORDERED: VANCOMYCIN INJ 1,000 MG in SODIUM CHLOR 0.9% 250 ML INJ 250 ML IV SCH (14:00)
[2016-12-19] MEDS ORDERED: PHARMACY ORDERED LAB ONE (15:45)
[2016-12-19] MEDS: VANCOMYCIN 1,000 MG/NS 250 ML IV SCH ×2 (18:50)
[2016-12-19] MEDS: valACYclovir HCL 500 MG TAB PO SCH (21:02)
[2016-12-19] MEDS: ALPRAZolam 0.25 MG TAB PO PRN (21:02)
[2016-12-19] MEDS: FENOFIBRATE 145 MG TAB PO SCH (21:02)
[2016-12-19] MEDS: traZODone HCL 50 MG TAB PO SCH (21:03)
[2016-12-19] MEDS: ATORVASTATIN 80 MG TAB PO SCH (21:03)
[2016-12-19] MEDS: POTASSIUM CHLORIDE 10 MEQ CONTROLLED RELEASE TAB PO SCH (21:03)
[2016-12-20] VITALS (15 sets, daily range): BP systolic 108–156; BP diastolic 63–95; PULSE 78–96; RESP 14–30; TEMP 97–98; O2SAT 94–100
[2016-12-20] MEDS: ALPRAZolam 0.25 MG TAB PO PRN ×2 (05:25→22:55)
[2016-12-20] MEDS: hydrALAZINE HCL 25 MG TAB PO SCH ×3 (05:42→22:00)
[2016-12-20] MEDS: DILTIAZEM HCL 60 MG TAB PO SCH ×3 (05:42→22:55)
[2016-12-20] MEDS: SUCRALFATE 1 GM/10 ML CUP PO SCH ×4 (05:42→21:00)
[2016-12-20] MEDS: LEVOTHYROXINE SODIUM 150 MCG TAB PO SCH (05:42)
[2016-12-20] MEDS: LOW DOSE INSULIN NOVOLOG SUPPLEMENTAL SCALE SQ SCH ×3 (05:45→16:00)
[2016-12-20] MEDS: BUMETANIDE 1 MG TAB PO SCH (07:47)
[2016-12-20] MEDS: PANTOPRAZOLE SOD 40 MG DELAYED RELEASE TAB PO SCH ×2 (07:47→21:00)
[2016-12-20] MEDS: DULoxetine HCl DR 60 MG CAP PO SCH (07:47)
[2016-12-20] MEDS: PSYLLIUM FIBER SF/GF 6 GM POWD PKT PO SCH (07:48)
[2016-12-20] MEDS: METOPROLOL TARTRATE 25 MG TAB PO SCH ×2 (07:48→22:55)
[2016-12-20] MEDS: SODIUM CHLORIDE 0.9% FLUSH 10 ML FLUSH IV FLUSH SCH (07:49)
[2016-12-20] MEDS: FLUTICASONE PROPIONATE 50 MCG/ACT 16 GM NASAL SPRAY EACH NARE SCH (07:49)
[2016-12-20] MEDS: ASPIRIN 81 MG CHEW TAB PO SCH (07:49)
[2016-12-20] MEDS ORDERED: RESP: ALBUTEROL 2.5 MG/IPRATROPIUM 0.5 MG NEB (PRN) NEB (08:15)
--- NOTE | 2016-12-20 09:22 | HHI.PR ---
Subjective Remarks Still short of breath. No chest pain. For OR today. Objective Vitals Vital Signs Date Time Temp Pulse Resp B/P Pulse Ox O2 Delivery O2 Flow Rate FiO2 12/20/16 08:00 98.0 91 30 149/81 96 12/20/16 07:56 94 Nasal Cannula 4.00 12/20/16 04:00 95 12/20/16 04:00 12/20/16 00:00 89 12/20/16 00:00 12/19/16 20:00 97 12/19/16 20:00 98.0 88 17 158/99 99 12/19/16 16:44 96.5 77 20 143/73 100 12/19/16 16:42 78 12/19/16 13:03 87 12/19/16 12:35 96.9 78 20 151/90 99 I/O 12/19/16 12/19/16 12/19/16 12/20/16 12/20/16 12/20/16 06:59 14:59 22:59 06:59 14:59 22:59 Intake Total 240 ml 460 ml 480 ml 0 ml Balance 240 ml 460 ml 480 ml 0 ml Intake Oral 240 ml 460 ml 480 ml 0 ml # Voids 3 10 2 3 # Bowel Movements 0 6 0 0 Result Diagram: 12/19/1652212/19/16 05 Objective Remarks GENERAL: Frail elderly female in no apparent distress. CARDIOVASCULAR: Normal rate and regular rhythm without murmurs, gallops, or rubs. RESPIRATORY: Good respiratory efforts. Markedly diminished breath sounds bilaterally at the bases, crackles on the right base. GASTROINTESTINAL: Abdomen soft, non-tender, non-distended. Normal active bowel sounds MUSCULOSKELETAL: Extremities without cyanosis, or edema. NEURO: Alert & Oriented x4 to person, place, time, situation. Moves all ext x4 Procedures 12/10- colonoscopy- diverticuloses, no active bleeding, hemorrhoids, AVM- no bleeding -EGD- ulceration-gastric anastomotic area A/P Problem List: (1) GI bleed ICD Code: K92.2 Status: Acute Assessment and Plan 76 Y/O female who was sent by dough machine operator for evaluation of suspected malfunctioning pleural tube but had bloody bowel movement while in ED. Patient with recurrent pleural effusion, has been seen by CT surgery who recommend VATS. Recurrent pleural effusion, empyema. Sepsis- Pleural tube malfunction. Gram + cocci in pleural fluid. -- Chest tube fell out days ago Leukocytosis - CT chest shows: small bilateral pleural effusions which are smaller from the prior study. No discrete infiltrate. Cardiomegaly. - Pulmonary Dr. Hall following here. She normally follows with Dr. Mills as OP - IV Vancomycin- pharmacy. ID following. - CT surgery following and planning for thoracoscopic drainage with pleurodesis , possible decortication today. GI bleed- S/P EGD- gastric anastomotic ulcer , diverticulosis , hemorrhoids on colonoscopy 12/10- no active bleeding - S/P 2 units RBC. H and H stable - Okay by GI to restart Xarelto- - on PPI, Metamucil, Carafate History of A. fib -on BB + CCB- - stable on Cardizem to 60 mg po q 8 -Plan to resume Xarelto after surgery. Acute on CKI: Resolved -Continue Bumex -Avoid nephrotoxins. Anxiety/depression: Continue Cymbalta Xanax PRN DM - Sliding scale- for now- hold Levemir- improved readings - Patient refused diabetic diet. - consider restarting HS insulin-states she was on hs if blood sugars stable- history of hypothyroidism- on Synthroid DVT prophylaxis - SCDs, Xarelto on hold Discharge Planning Continue inpatient care. Problem Qualifiers (1) GI bleed: Qualified Code: K92.2 - Gastrointestinal hemorrhage, unspecified gastrointestinal hemorrhage type Kelvin Lucero MD Dec 20, 2016 09:22
[2016-12-20 13:05] LABS: AUTOMATED NEUTROPHIL # 9.9 TH/MM3 (1.8-7.7); BASOPHIL # 0.1 TH/MM3 (0-0.2); EOSINOPHIL % 0.4 % (0.0-4.0); HEMATOCRIT 31.1 % (35.0-46.0); HEMO FLAGS DIFF FINAL; LYMPH % 5.3 % (9.0-44.0); LYMPHOCYTE # 0.6 TH/MM3 (1.0-4.8); MEAN CELL VOLUME 89.5 FL (80.0-100.0); MEAN CORPUSCULAR HEMOGLOBIN 30.6 PG (27.0-34.0); MEAN CORPUSCULAR HGB CONC 34.2 % (32.0-36.0); MONO % 4.4 % (0.0-8.0); NEUT % 88.9 % (16.0-70.0); PLATELET COUNT 486 TH/MM3 (150-450); RED BLOOD COUNT 3.48 MIL/MM3 (4.00-5.30); RED CELL DISTRIBUTION WIDTH 19.8 % (11.6-17.2); WHITE BLOOD COUNT 11.1 TH/MM3 (4.0-11.0)
--- NOTE | 2016-12-20 14:21 | HHI.IDPN ---
Note Infectious Disease Note Patient is sitting up in recliner chair at this time. Difficulty sleeping last night due to SOB. No fever. Due for surgery in 2 hours. PAST MEDICAL HISTORY Hypothyroidism, congestive heart failure, diabetes mellitus, hypertension, atrial fibrillation, COPD, gastroesophageal reflux disease, coronary disease, bypass graft February 2016, gastric bypass 2009, back surgery, bilateral cataract surgery, coronary stent in 2007. ALLERGIES PENICILLIN. ERYTHROMYCIN. LASIX. ANTIBIOTICS: Vancomycin. OBJECTIVE: Vital Signs Date Time Temp Pulse Resp B/P Pulse Ox O2 Delivery O2 Flow Rate FiO2 12/20/16 13:28 92 12/20/16 12:00 97.7 94 14 154/94 96 12/20/16 08:05 92 12/20/16 08:00 98.0 91 30 149/81 96 12/20/16 07:56 94 Nasal Cannula 4.00 12/20/16 04:00 95 12/20/16 04:00 12/20/16 00:00 89 12/20/16 00:00 12/19/16 20:00 97 12/19/16 20:00 98.0 88 17 158/99 99 12/19/16 16:44 96.5 77 20 143/73 100 12/19/16 16:42 78 12/19/16 12/19/16 12/20/16 14:59 22:59 06:59 Intake Total 460 ml 480 ml 0 ml Balance 460 ml 480 ml 0 ml Intake Oral 460 ml 480 ml 0 ml # Voids 10 2 3 # Bowel Movements 6 0 0 Laboratory Tests Test 12/19/16 12/20/16 05:23 12:30 White Blood Count 11.8 TH/MM3 11.1 TH/MM3 Red Blood Count 3.68 MIL/MM3 3.48 MIL/MM3 Hemoglobin 10.8 GM/DL 10.7 GM/DL Hematocrit 32.6 % 31.1 % Mean Corpuscular Volume 88.6 FL 89.5 FL Mean Corpuscular Hemoglobin 29.4 PG 30.6 PG Mean Corpuscular Hemoglobin 33.1 % 34.2 % Concent Red Cell Distribution Width 19.8 % 19.8 % Platelet Count 672 TH/MM3 486 TH/MM3 Mean Platelet Volume 8.6 FL 8.3 FL Neutrophils (%) (Auto) 88.9 % Lymphocytes (%) (Auto) 5.3 % Monocytes (%) (Auto) 4.4 % Eosinophils (%) (Auto) 0.4 % Basophils (%) (Auto) 1.0 % Neutrophils # (Auto) 9.9 TH/MM3 Lymphocytes # (Auto) 0.6 TH/MM3 Monocytes # (Auto) 0.5 TH/MM3 Eosinophils # (Auto) 0.0 TH/MM3 Basophils # (Auto) 0.1 TH/MM3 CBC Comment DIFF FINAL Differential Comment Laboratory Tests Test 12/19/16 05:21 Sodium Level 138 MEQ/L Potassium Level 4.2 MEQ/L Chloride Level 103 MEQ/L Carbon Dioxide Level 30.9 MEQ/L Anion Gap 4 MEQ/L Blood Urea Nitrogen 23 MG/DL Creatinine 0.95 MG/DL Estimat Glomerular Filtration 58 ML/MIN Rate Random Glucose 152 MG/DL Calcium Level 9.2 MG/DL PHYSICAL EXAMINATION GENERAL: No acute distress. Awake ane alert. Looks fatigued. HEENT: No icterus. NECK: Supple without adenopathy. HEART: Irregular S1S2. SID at LSB. LUNGS: decreased breath sounds at the R. base. Slight rhonchi at r. base. ABDOMEN: Bowel sounds present, soft, nontender. EXTREMITIES: No clubbing, cyanosis or edema. SKIN: No rash. The skin is pale. warm and moist. NEURO: Nonfocal. PSYCH: Patient pleasant, calm and cooperative. IMPRESSION Chronic/ recurrent R. pleural effusion. MRSA. SOB related to pleural effusion. Leukocytosis. BBC remain increased. Plans for VATS today. RECOMMENDATIONS 1. Continue vancomycin. Follow levels. 2. Monitor temp and WBC. Nathan Morocho MD Dec 20, 2016 14:21
[2016-12-20] MEDS ORDERED: BUPIVACAINE HCL PF 0.5% 30 ML VIAL ONE (15:46)
[2016-12-20] MEDS: VANCOMYCIN 1,000 MG/NS 250 ML IV SCH ×2 (16:00)
[2016-12-20] MEDS ORDERED: fentaNYL CITRATE 250 MCG/5 ML AMP ONE (16:39)
[2016-12-20] MEDS ORDERED: ACETAMINOPHEN 1000 MG/100 ML VIAL IV ONE (17:20)
[2016-12-20] MEDS ORDERED: FAMOTIDINE 20 MG/2 ML VIAL ONE (17:20)
[2016-12-20] MEDS ORDERED: SUGAMMADEX SODIUM 200 MG/2 ML VIAL IV PUSH ONE ×2 (17:20)
[2016-12-20] MEDS ORDERED: ACETAMINOPHEN/HYDROcodone 325 MG/5 MG TAB PO PRN (19:00)
[2016-12-20] MEDS ORDERED: RESP: ALBUTEROL 2.5 MG/3 ML NEB (PRN) NEB (19:00)
[2016-12-20] MEDS ORDERED: Post-op Orders (for Pharmacy) MISC OTHER ONE (19:00)
[2016-12-20] MEDS ORDERED: MISC INFORMATION OTHER ONE (19:00)
[2016-12-20] MEDS ORDERED: DEXTROSE 50% IN WATER 50 ML VIAL(D50) IV PRN (19:00)
[2016-12-20] MEDS ORDERED: ACETAMINOPHEN 325 MG TAB PO PRN (19:00)
[2016-12-20] MEDS ORDERED: MAGNESIUM HYDROXIDE SUSP 30 ML CUP PO PRN (19:00)
[2016-12-20] MEDS ORDERED: ONDANSETRON HCL 4 MG/2 ML VIAL IV PUSH PRN (19:00)
[2016-12-20] MEDS ORDERED: GLUCAGON 1 MG/ML VIAL IV PRN (19:00)
[2016-12-20] MEDS ORDERED: SODIUM CHLORIDE 0.9% FLUSH 5 ML FLUSH IV FLUSH PRN (19:00)
--- NOTE | 2016-12-20 19:01 | PD.OP ---
cc: Calixto Hall MD; Nathan Morocho MD; Mi Blackwell MD; Kelvin Lucero MD Operative Report Date of Surgery: Dec 20, 2016 Preoperative Diagnosis: (1) Recurrent right pleural effusion Postoperative Diagnosis: same Procedure: Right thoracoscopic exploration to drain recurrent right pleural effusion Talc pleuradesis Anesthesia: Dr. Funk Surgeon: Mi Blackwell Neurosurgery Physician(s): KAYA Hart Operation and Findings: After adequate general anesthesia the patient was placed in the left lateral decubitus position and the right chest was prepped and draped in usual manner. A small posterior port incision was performed and electrocautery was used to obtain hemostasis and carry the dissection down through the fascia. A 22G seeker needle was used initially posteriorly and serous, clear, yellow-tinged fluid was aspirated. A port was initially placed posteriorly followed by the camera. Overall, ~1200 ml of serous effusion was drained. This effusion appeared to be a transudate. There was minimal inflammation in the right pleural space. A second anterior port was positioned at ~6th intercostal space. Exploration of the right hemithorax was significant for hyperemic parietal pleura. the lung parenchyma appeared to be grossly normal. Fluid was submitted for cultures as well as chemistry studies and a cell count with diff. A talc pleuradesis was performed through both ports. A 28F chest tube was positioned through the anterior port, and secured with a 0-silk suture. The lung was ventilated and no significant air leaks were found. The subcutaneous tissues of the posterior port was approximated running 2-0 Vicryl suture and the skin was approximated using running 4-0 Monocryl subcuticular stitch. All sponge and history counts were correct at the close the procedure and the patient was transferred to the PACU for recovery purposes. Mi Blackwell MD Dec 20, 2016 19:01
[2016-12-20] MEDS ORDERED: DO NOT ADM ANY ANTICOAGULANT DRUGS PRN (19:45)
--- NOTE | 2016-12-20 20:17 | RADRPT ---
EXAM DATE/TIME: 12/20/2016 19:33 [facility] COMPARISON: CHEST SINGLE AP, December 16, 2016, 14:52. INDICATIONS : Post thoracotomy. MEDICAL HISTORY : Hypertension. Congestive heart failure. Cardiovascular disease. SURGICAL HISTORY : CABG. ENCOUNTER: Subsequent ACUITY: 1 day PAIN SCORE: Non-responsive. LOCATION: Bilateral chest FINDINGS: A single view of the chest demonstrates scatter pleural-parenchymal densities greatest within the rig ht lung although improved from previous study. There does appear to be a small right apical pneumotho rax. This measures 6 mm. Right-sided chest tube. Previous median sternotomy. Endotracheal tube with t ip 1.7 cm above the roseann.. Osseous structures are intact. CONCLUSION: Right-sided chest tube with decrease in pleural-parenchymal density right lung. Small apical pneumoth orax. Rommel Fisher MD on December 20, 2016 at 20:15 Board Certified Radiologist. This report was verified electronically.
[2016-12-20 20:18] LABS: BLOOD GAS BASE EXCESS 1.9 mmol/L (-2-2); BLOOD GAS CARBOXYHEMOGLOBIN 1.1 % (0-4); BLOOD GAS HCO3 29 mmol/L (22-26); BLOOD GAS METHEMOGLOBIN 1.3 % (0-2); BLOOD GAS O2 HGB SATURATION 88 % (90-100); BLOOD GAS OXYGEN CONTENT 15.8 Vol % (12.0-20.0); BLOOD GAS PCO2 69 mmHg (38-42); BLOOD GAS PO2 69 mmHg (61-120); BLOOD GAS TOTAL HGB 12.8 G/DL (12.0-16.0); CRITICAL VALUE YES; TEMP CORR TO 98.6
[2016-12-20 20:19] LABS: DRAW SITE ART LINE; FIO2 50 %; OXYGEN DEVICE VENT; STAT NO; ULNAR PULSE PRESENT
[2016-12-20] MEDS: SODIUM CHLORIDE 0.9% FLUSH 5 ML FLUSH IV FLUSH SCH (20:41)
[2016-12-20] MEDS: valACYclovir HCL 500 MG TAB PO SCH (21:00)
[2016-12-20] MEDS: FENOFIBRATE 145 MG TAB PO SCH (21:00)
[2016-12-20 22:41] LABS: PLEURAL FLUID LYMPHS 76 %
[2016-12-20] MEDS: DOCUSATE CALCIUM 240 MG CAP PO SCH (22:54)
[2016-12-20] MEDS: ACETAMINOPHEN/HYDROcodone 325 MG/7.5 MG TAB PO PRN (22:54)
[2016-12-20] MEDS: traZODone HCL 50 MG TAB PO SCH (22:55)
[2016-12-20] MEDS: ATORVASTATIN 80 MG TAB PO SCH (22:55)
[2016-12-20] MEDS: POTASSIUM CHLORIDE 10 MEQ CONTROLLED RELEASE TAB PO SCH (22:56)
[2016-12-21] VITALS (22 sets, daily range): BP systolic 81–129; BP diastolic 47–76; PULSE 68–94; RESP 12–20; TEMP 97.4–98.8; O2SAT 92–100
[2016-12-21] MEDS: RESP: ALBUTEROL 2.5 MG/3 ML NEB (SCH) NEB ×4 (04:36→22:00)
[2016-12-21 04:59] LABS: AUTOMATED NEUTROPHIL # 16.8 TH/MM3 (1.8-7.7); BASOPHIL # 0.1 TH/MM3 (0-0.2); BASOPHIL % 0.5 % (0.0-2.0); HEMO FLAGS DIFF FINAL; LYMPH % 2.7 % (9.0-44.0); LYMPHOCYTE # 0.5 TH/MM3 (1.0-4.8); MEAN CELL VOLUME 89.4 FL (80.0-100.0); MEAN CORPUSCULAR HEMOGLOBIN 29.5 PG (27.0-34.0); MONO % 3.7 % (0.0-8.0); NEUT % 93.1 % (16.0-70.0); PLATELET COUNT 583 TH/MM3 (150-450); RED BLOOD COUNT 3.25 MIL/MM3 (4.00-5.30); RED CELL DISTRIBUTION WIDTH 19.9 % (11.6-17.2)
[2016-12-21 05:18] LABS: BICARBONATE 30.5 MEQ/L (21.0-32.0); POTASSIUM 4.3 MEQ/L (3.5-5.1)
[2016-12-21] MEDS: INSULIN ASPART SUPPLEMENTAL SCALE SQ SCH ×5 (06:00→23:35)
--- NOTE | 2016-12-21 06:07 | RADRPT ---
EXAM DATE/TIME: 12/21/2016 04:06 [facility] COMPARISON: CHEST SINGLE AP, December 20, 2016, 19:33. INDICATIONS : Shortness of breath. MEDICAL HISTORY : Hypertension. Congestive heart failure. Cardiovascular disease. SURGICAL HISTORY : CABG. ENCOUNTER: Subsequent ACUITY: 2 weeks PAIN SCORE: 0/10 LOCATION: Bilateral chest FINDINGS: Portable AP views of the chest demonstrate cardiac silhouette size at the upper limits for normal. Pa tient is post median sternotomy. Endotracheal tube has been removed. Right chest tube remains present in multiple lines overlie the patient. There is increased airspace opacity bilaterally. Pleural base d opacities are also present bilaterally. No pneumothorax is visualized. CONCLUSION: 1. Increased bilateral airspace consolidation. Pleural effusions also remain present. 2. A right chest tube is present no pneumothorax is visualized. Mango Hou MD on December 21, 2016 at 6:04 Board Certified Radiologist. This report was verified electronically.
[2016-12-21] MEDS: DILTIAZEM HCL 60 MG TAB PO SCH ×3 (06:28→21:05)
[2016-12-21] MEDS: LEVOTHYROXINE SODIUM 150 MCG TAB PO SCH (06:28)
[2016-12-21] MEDS: hydrALAZINE HCL 25 MG TAB PO SCH ×3 (06:28→21:05)
[2016-12-21] MEDS: SUCRALFATE 1 GM/10 ML CUP PO SCH ×4 (06:28→21:07)
[2016-12-21] MEDS: ACETAMINOPHEN/HYDROcodone 325 MG/7.5 MG TAB PO PRN ×3 (06:46→17:57)
--- NOTE | 2016-12-21 07:36 | PD.CAR.PN ---
CVT Progress Note CVT: POD #: 1 Subjective/Hospital Course: c/o dyspnea. pt was eval by IR apparent no retained portion of pig tail cath that was accidentally dislodged by pt for right video assisted thorascopy with drainage of loculated effusion, possible decortication on Wednesday 12/20 continue antibiotics per ID 12/17 for surgery on Wednesday 12/20 remains on 02 pt agrees to resend DNR status for surgery 12/19/16 No complaints today. Ready for her surgery tomorrow. 12/21/16 No complaints, breathing easier Objective: Vital Signs Date Time Temp Pulse Resp B/P Pulse Ox O2 Delivery O2 Flow Rate FiO2 12/21/16 04:00 81 12/21/16 04:00 97.6 81 20 105/60 92 12/21/16 02:00 88 12/21/16 00:08 99 Nasal Cannula 4.00 12/21/16 00:00 97.8 87 20 81/47 98 12/21/16 00:00 87 12/20/16 22:30 94 12/20/16 22:30 97.9 94 20 125/76 96 Arterial Line 12/20/16 22:00 89 25 121/63 92 Nasal Cannula 2 12/20/16 21:45 95 25 128/62 96 Nasal Cannula 2 Arterial Line 12/20/16 21:30 94 30 126/62 96 Nasal Cannula 2 12/20/16 21:15 92 26 125/60 95 Nasal Cannula 2 12/20/16 21:06 96 Nasal Cannula 2 12/20/16 21:00 89 15 132/63 96 Mechanical Ventilator 30 12/20/16 20:45 87 15 124/62 100 Mechanical Ventilator 30 12/20/16 20:45 30 12/20/16 20:30 87 13 123/62 99 Mechanical Ventilator 40 12/20/16 20:15 84 16 123/60 99 Mechanical Ventilator 40 12/20/16 20:06 40 12/20/16 20:05 99 40 12/20/16 20:00 84 24 119/60 94 Mechanical Ventilator 40 12/20/16 19:45 82 14 122/62 99 Mechanical Ventilator 40 12/20/16 19:42 96 50 12/20/16 19:42 40 12/20/16 19:30 77 14 109/70 100 Mechanical Ventilator 100 12/20/16 19:29 100 12/20/16 19:29 98.4 78 13 108/63 99 Mechanical Ventilator 100 12/20/16 19:29 78 108/63 12/20/16 19:25 100 100 12/20/16 15:00 97.0 96 16 156/95 98 12/20/16 13:28 92 12/20/16 12:00 97.7 94 14 154/94 96 12/20/16 08:05 92 12/20/16 08:00 98.0 91 30 149/81 96 12/20/16 07:56 94 Nasal Cannula 4.00 Labs: Laboratory Tests Test 12/20/16 12/21/16 19:45 04:00 Blood Gas Puncture Site ART LINE Blood Gas Patient Temperature 98.6 Blood Gas HCO3 29 mmol/L (22-26) Blood Gas Base Excess 1.9 mmol/L (-2-2) Blood Gas Oxygen Saturation 88 % (90-100) Arterial Blood pH 7.24 (7.380-7.420) Arterial Blood Partial 69 mmHg (38-42) Pressure CO2 Arterial Blood Partial 69 mmHg Pressure O2 (61-120) Arterial Blood Oxygen Content 15.8 Vol % (12.0-20.0) Arterial Blood 1.1 % (0-4) Carboxyhemoglobin Arterial Blood Methemoglobin 1.3 % (0-2) Blood Gas Hemoglobin 12.8 G/DL (12.0-16.0) Oxygen Delivery Device VENT Blood Gas Ventilator Setting 10/01/49 Blood Gas Inspired Oxygen 50 % White Blood Count 18.0 TH/MM3 (4.0-11.0) Red Blood Count 3.25 MIL/MM3 (4.00-5.30) Hemoglobin 9.6 GM/DL (11.6-15.3) Hematocrit 29.0 % (35.0-46.0) Mean Corpuscular Volume 89.4 FL (80.0-100.0) Mean Corpuscular Hemoglobin 29.5 PG (27.0-34.0) Mean Corpuscular Hemoglobin 33.0 % Concent (32.0-36.0) Red Cell Distribution Width 19.9 % (11.6-17.2) Platelet Count 583 TH/MM3 (150-450) Mean Platelet Volume 8.6 FL (7.0-11.0) Neutrophils (%) (Auto) 93.1 % (16.0-70.0) Lymphocytes (%) (Auto) 2.7 % (9.0-44.0) Monocytes (%) (Auto) 3.7 % (0.0-8.0) Eosinophils (%) (Auto) 0.0 % (0.0-4.0) Basophils (%) (Auto) 0.5 % (0.0-2.0) Neutrophils # (Auto) 16.8 TH/MM3 (1.8-7.7) Lymphocytes # (Auto) 0.5 TH/MM3 (1.0-4.8) Monocytes # (Auto) 0.7 TH/MM3 (0-0.9) Eosinophils # (Auto) 0.0 TH/MM3 (0-0.4) Basophils # (Auto) 0.1 TH/MM3 (0-0.2) CBC Comment DIFF FINAL Differential Comment Sodium Level 142 MEQ/L (136-145) Potassium Level 4.3 MEQ/L (3.5-5.1) Chloride Level 104 MEQ/L (98-107) Carbon Dioxide Level 30.5 MEQ/L (21.0-32.0) Anion Gap 8 MEQ/L (5-15) Blood Urea Nitrogen 23 MG/DL (7-18) Creatinine 0.97 MG/DL (0.50-1.00) Estimat Glomerular Filtration 56 ML/MIN (>89) Rate Random Glucose 139 MG/DL (74-106) Calcium Level 8.6 MG/DL (8.5-10.1) Result Diagram: 12/21/16 0400 12/21/16 0400 Imaging: Last 24 hours Impressions Chest X-Ray 12/21/16 0600 Signed Impressions: Service Date/Time: Wednesday, December 21, 2016 04:06 - CONCLUSION: 1. Increased bilateral airspace consolidation. Pleural effusions also remain present. 2. A right chest tube is present no pneumothorax is visualized. Mango Hou MD Cardiovascular: RRR Telemetry: NSR Pulmonary: Decreased BS bilat GI/: NABS, NT Incision: dry and intact CT: 160 ml since OR, no air leak Plan: Transfer to stepdown CXR looks worse this morning bilaterally - will consider repositioning chest tube Encourage ambulation, up to chair Advance diet (1) Recurrent right pleural effusion Plan: Ms. Garcia is undergoing intermediate risk surgery, no CV complaints, good functional capacity. per Cardiology (2) HTN (hypertension) (3) PNA (pneumonia) Mi Blackwell MD Dec 21, 2016 07:36
[2016-12-21] MEDS ORDERED: BISACODYL 10 MG SUPP RECTAL PRN (07:45)
[2016-12-21] MEDS ORDERED: GLUCAGON 1 MG/ML VIAL OTHER PRN (07:45)
[2016-12-21] MEDS ORDERED: DEXTROSE 50% IN WATER 50 ML VIAL(D50) IV PRN (07:45)
[2016-12-21] MEDS ORDERED: SOD PHOSPHATE/SOD BIPHOSPHATE (ADULT) ENEMA 133ML RECTAL PRN (07:45)
[2016-12-21] MEDS: RESP: ALBUTEROL 2.5 MG/IPRATROPIUM 0.5 MG NEB (SCH) NEB ×3 (08:00→20:23)
[2016-12-21] MEDS: MULTIVITAMINS/MINERALS THERAPEUTIC TAB PO SCH (08:59)
[2016-12-21] MEDS: MAGNESIUM HYDROXIDE SUSP 30 ML CUP PO SCH (08:59)
[2016-12-21] MEDS: SODIUM CHLORIDE 0.9% FLUSH 5 ML FLUSH IV FLUSH SCH ×2 (09:00→21:00)
[2016-12-21] MEDS: PSYLLIUM FIBER SF/GF 6 GM POWD PKT PO SCH (09:00)
[2016-12-21] MEDS: FLUTICASONE PROPIONATE 50 MCG/ACT 16 GM NASAL SPRAY EACH NARE SCH (09:00)
[2016-12-21] MEDS: ASPIRIN 81 MG CHEW TAB PO SCH (09:00)
[2016-12-21] MEDS: DULoxetine HCl DR 60 MG CAP PO SCH (09:00)
[2016-12-21] MEDS: METOPROLOL TARTRATE 25 MG TAB PO SCH ×2 (09:00→21:07)
[2016-12-21] MEDS: BUMETANIDE 1 MG TAB PO SCH (09:00)
--- NOTE | 2016-12-21 10:41 | HHI.PR ---
Subjective Remarks Patient reports feeling tired. Breathing more comfortable today compared to yesterday. No chest pressure. Objective Vitals Vital Signs Date Time Temp Pulse Resp B/P Pulse Ox O2 Delivery O2 Flow Rate FiO2 12/21/16 10:00 81 12/21/16 09:45 95 Nasal Cannula 4.00 12/21/16 09:01 18 12/21/16 09:00 93 12/21/16 09:00 98.5 94 16 123/76 93 12/21/16 07:47 97.4 89 12 123/70 98 12/21/16 04:00 81 12/21/16 04:00 97.6 81 20 105/60 92 12/21/16 02:00 88 12/21/16 00:08 99 Nasal Cannula 4.00 12/21/16 00:00 97.8 87 20 81/47 98 12/21/16 00:00 87 12/20/16 22:30 94 12/20/16 22:30 97.9 94 20 125/76 96 Arterial Line 12/20/16 22:00 89 25 121/63 92 Nasal Cannula 2 12/20/16 21:45 95 25 128/62 96 Nasal Cannula 2 Arterial Line 12/20/16 21:30 94 30 126/62 96 Nasal Cannula 2 12/20/16 21:15 92 26 125/60 95 Nasal Cannula 2 12/20/16 21:06 96 Nasal Cannula 2 12/20/16 21:00 89 15 132/63 96 Mechanical Ventilator 30 12/20/16 20:45 87 15 124/62 100 Mechanical Ventilator 30 12/20/16 20:45 30 12/20/16 20:30 87 13 123/62 99 Mechanical Ventilator 40 12/20/16 20:15 84 16 123/60 99 Mechanical Ventilator 40 12/20/16 20:06 40 12/20/16 20:05 99 40 12/20/16 20:00 84 24 119/60 94 Mechanical Ventilator 40 12/20/16 19:45 82 14 122/62 99 Mechanical Ventilator 40 12/20/16 19:42 96 50 12/20/16 19:42 40 12/20/16 19:30 77 14 109/70 100 Mechanical Ventilator 100 12/20/16 19:29 100 12/20/16 19:29 98.4 78 13 108/63 99 Mechanical Ventilator 100 12/20/16 19:29 78 108/63 12/20/16 19:25 100 100 12/20/16 15:00 97.0 96 16 156/95 98 12/20/16 13:28 92 12/20/16 12:00 97.7 94 14 154/94 96 I/O 12/20/16 12/20/16 12/20/16 12/21/16 12/21/16 12/21/16 07:00 15:00 23:00 07:00 15:00 23:00 Intake Total 0 ml 0 ml 670 ml 180 ml Output Total 210 ml 410 ml Balance 0 ml 0 ml 460 ml -230 ml Intake Oral 0 ml 180 ml IV Total 0 ml 70 ml Other 600 ml Output Urine Total 250 ml Chest Tube Drainage Total 160 ml Drainage Total 160 ml Estimated Blood Loss 50 ml # Voids 3 1 # Bowel Movements 0 1 Result Diagram: 12/21/1639912/21/16399 Objective Remarks GENERAL: Frail elderly female in no apparent distress. CARDIOVASCULAR: Normal rate and regular rhythm without murmurs, gallops, or rubs. RESPIRATORY: Good respiratory efforts. Diminished breath sounds bilaterally, crackles on the right base. Chest tube on the right. GASTROINTESTINAL: Abdomen soft, non-tender, non-distended. Normal active bowel sounds MUSCULOSKELETAL: Extremities without cyanosis, or edema. NEURO: Alert & Oriented x4 to person, place, time, situation. Moves all ext x4 Procedures 12/10- colonoscopy- diverticuloses, no active bleeding, hemorrhoids, AVM- no bleeding -EGD- ulceration-gastric anastomotic area A/P Problem List: (1) GI bleed ICD Code: K92.2 Status: Acute Assessment and Plan 76 Y/O female who was sent by [facility] operator for evaluation of suspected malfunctioning pleural tube but had bloody bowel movement while in ED. Patient with recurrent pleural effusion, has been seen by CT surgery who recommend VATS. Recurrent pleural effusion, empyema. Sepsis- Pleural tube malfunction. Gram + cocci in pleural fluid. Leukocytosis - CT chest shows: small bilateral pleural effusions which are smaller from the prior study. No discrete infiltrate. Cardiomegaly. - Pulmonary Dr. Hall following here. She normally follows with Dr. Mills as OP - IV Vancomycin- pharmacy. ID following. Follow fluid studies and cultures. -CT surgery following, status post Right thoracoscopic exploration to drain recurrent right pleural effusion, Talc pleuradesis on 12/20/[address] in place. X-ray worse this morning but symptoms better. CT surgery considering adjustment of CT. Further plans per CT surgery. GI bleed- S/P EGD- gastric anastomotic ulcer , diverticulosis , hemorrhoids on colonoscopy 12/10- no active bleeding - S/P 2 units RBC. H and H stable - Okay by GI to restart Xarelto- - on PPI, Metamucil, Carafate History of A. fib -on BB + CCB- - stable on Cardizem to 60 mg po q 8 -Resume Xarelto once cleared by general surgery. Acute on CKI: Resolved -Continue Bumex -Avoid nephrotoxins. Anxiety/depression: Continue Cymbalta Xanax PRN DM - Sliding scale- for now- hold Levemir- improved readings - Patient refused diabetic diet. She is not eating much. Will allow regular diet. - consider restarting HS insulin, if blood sugars stable- history of hypothyroidism- on Synthroid DVT prophylaxis - SCDs, Xarelto on hold Discharge Planning Continue inpatient care. Problem Qualifiers (1) GI bleed: Qualified Code: K92.2 - Gastrointestinal hemorrhage, unspecified gastrointestinal hemorrhage type Kelvin Lucero MD Dec 21, 2016 10:40
--- NOTE | 2016-12-21 11:42 | HHI.IDPN ---
Note Infectious Disease Note Patient feels better. Sitting up in bedside chair, Breathing feels better. No fever. Appetite poor. R. Chest tube in place following VATS yesterday 12/20/16. PAST MEDICAL HISTORY Hypothyroidism, congestive heart failure, diabetes mellitus, hypertension, atrial fibrillation, COPD, gastroesophageal reflux disease, coronary disease, bypass graft February 2016, gastric bypass 2009, back surgery, bilateral cataract surgery, coronary stent in 2007. ALLERGIES PENICILLIN. ERYTHROMYCIN. LASIX. ANTIBIOTICS: Vancomycin. OBJECTIVE: Vital Signs Date Time Temp Pulse Resp B/P Pulse Ox O2 Delivery O2 Flow Rate FiO2 12/21/16 11:00 98.7 83 18 92/55 97 12/21/16 10:00 81 12/21/16 09:45 95 Nasal Cannula 4.00 12/21/16 09:01 18 12/21/16 09:00 93 12/21/16 09:00 98.5 94 16 123/76 93 12/21/16 07:47 97.4 89 12 123/70 98 12/21/16 04:00 81 12/21/16 04:00 97.6 81 20 105/60 92 12/21/16 02:00 88 12/21/16 00:08 99 Nasal Cannula 4.00 12/21/16 00:00 97.8 87 20 81/47 98 12/21/16 00:00 87 12/20/16 22:30 94 12/20/16 22:30 97.9 94 20 125/76 96 Arterial Line 12/20/16 22:00 89 25 121/63 92 Nasal Cannula 2 12/20/16 21:45 95 25 128/62 96 Nasal Cannula 2 Arterial Line 12/20/16 21:30 94 30 126/62 96 Nasal Cannula 2 12/20/16 21:15 92 26 125/60 95 Nasal Cannula 2 12/20/16 21:06 96 Nasal Cannula 2 12/20/16 21:00 89 15 132/63 96 Mechanical Ventilator 30 12/20/16 20:45 87 15 124/62 100 Mechanical Ventilator 30 12/20/16 20:45 30 12/20/16 20:30 87 13 123/62 99 Mechanical Ventilator 40 12/20/16 20:15 84 16 123/60 99 Mechanical Ventilator 40 12/20/16 20:06 40 12/20/16 20:05 99 40 12/20/16 20:00 84 24 119/60 94 Mechanical Ventilator 40 12/20/16 19:45 82 14 122/62 99 Mechanical Ventilator 40 12/20/16 19:42 96 50 12/20/16 19:42 40 12/20/16 19:30 77 14 109/70 100 Mechanical Ventilator 100 12/20/16 19:29 100 12/20/16 19:29 98.4 78 13 108/63 99 Mechanical Ventilator 100 12/20/16 19:29 78 108/63 12/20/16 19:25 100 100 12/20/16 15:00 97.0 96 16 156/95 98 12/20/16 13:28 92 12/20/16 12:00 97.7 94 14 154/94 96 12/20/16 12/20/16 12/21/16 15:00 23:00 07:00 Intake Total 0 ml 670 ml 180 ml Output Total 210 ml 410 ml Balance 0 ml 460 ml -230 ml Intake Oral 180 ml IV Total 0 ml 70 ml Other 600 ml Output Urine Total 250 ml Chest Tube Drainage Total 160 ml Drainage Total 160 ml Estimated Blood Loss 50 ml # Voids 1 # Bowel Movements 1 Laboratory Tests Test 12/20/16 12/21/16 12:30 04:00 White Blood Count 11.1 TH/MM3 18.0 TH/MM3 Red Blood Count 3.48 MIL/MM3 3.25 MIL/MM3 Hemoglobin 10.7 GM/DL 9.6 GM/DL Hematocrit 31.1 % 29.0 % Mean Corpuscular Volume 89.5 FL 89.4 FL Mean Corpuscular Hemoglobin 30.6 PG 29.5 PG Mean Corpuscular Hemoglobin 34.2 % 33.0 % Concent Red Cell Distribution Width 19.8 % 19.9 % Platelet Count 486 TH/MM3 583 TH/MM3 Mean Platelet Volume 8.3 FL 8.6 FL Neutrophils (%) (Auto) 88.9 % 93.1 % Lymphocytes (%) (Auto) 5.3 % 2.7 % Monocytes (%) (Auto) 4.4 % 3.7 % Eosinophils (%) (Auto) 0.4 % 0.0 % Basophils (%) (Auto) 1.0 % 0.5 % Neutrophils # (Auto) 9.9 TH/MM3 16.8 TH/MM3 Lymphocytes # (Auto) 0.6 TH/MM3 0.5 TH/MM3 Monocytes # (Auto) 0.5 TH/MM3 0.7 TH/MM3 Eosinophils # (Auto) 0.0 TH/MM3 0.0 TH/MM3 Basophils # (Auto) 0.1 TH/MM3 0.1 TH/MM3 CBC Comment DIFF FINAL DIFF FINAL Differential Comment Laboratory Tests Test 12/21/16 04:00 Sodium Level 142 MEQ/L Potassium Level 4.3 MEQ/L Chloride Level 104 MEQ/L Carbon Dioxide Level 30.5 MEQ/L Anion Gap 8 MEQ/L Blood Urea Nitrogen 23 MG/DL Creatinine 0.97 MG/DL Estimat Glomerular Filtration 56 ML/MIN Rate Random Glucose 139 MG/DL Calcium Level 8.6 MG/DL Microbiology Date/Time Procedure Status Source Growth 12/20/16 19:19 Gram Stain - Final Resulted Fluid Pleural Fluid 12/20/16 19:19 Body Fluid Culture Resulted Fluid Pleural Fluid Pending 12/20/16 19:19 Acid Fast Stain Received Fluid Pleural Fluid Pending 12/20/16 19:19 Mycobacterial Culture Received Fluid Pleural Fluid Pending 12/20/16 19:19 Fungal Smear - Final Resulted Fluid Pleural Fluid NO FUNGAL ELEMENTS SEEN. 12/20/16 19:19 Fungal Culture Resulted Fluid Pleural Fluid Pending IMAGING: Chest X-Ray 12/21/16 0600 Signed Impressions: Service Date/Time: Wednesday, December 21, 2016 04:06 - CONCLUSION: 1. Increased bilateral airspace consolidation. Pleural effusions also remain present. 2. A right chest tube is present no pneumothorax is visualized. Mango Hou MD Chest X-Ray 12/20/16 0000 Signed Impressions: Service Date/Time: Tuesday, December 20, 2016 19:33 - CONCLUSION: Right-sided chest tube with decrease in pleural-parenchymal density right lung. Small apical pneumothorax. Rommel Fisher MD PHYSICAL EXAMINATION GENERAL: No acute distress. Awake and alert. HEENT: No icterus. Moist mucosa. NECK: Supple without adenopathy. HEART: Irregular S1S2. LUNGS: Good air movement. Decreased breath sounds at the R. base. Has rhonchi at the r. base. ABDOMEN: Bowel sounds present, soft, nontender. EXTREMITIES: No clubbing, cyanosis or edema. SKIN: No rash. The skin is pale. warm and moist. NEURO: Nonfocal. PSYCH: Pleasant, calm and cooperative. IMPRESSION Chronic/ recurrent R. pleural effusion. MRSA. Post VATS and talc pleurodesis. SOB related to pleural effusion. Leukocytosis. WBC remain increased. RECOMMENDATIONS 1. Continue vancomycin. Follow levels. 2. Follow pleural fluid culture. 3. Monitor temp and WBC. Nathan Morocho MD Dec 21, 2016 11:42
[2016-12-21] MEDS: VANCOMYCIN 1,000 MG/NS 250 ML IV SCH ×2 (16:26)
--- NOTE | 2016-12-21 19:07 | HHI.PR ---
Subjective Remarks 76 YOWF with CAD,s/p CABG, recurrent pl eff, Rectal bleed Pl fluid growing MRSA Up in chair had VATS and pleurodesis Chest tube draining Pleural fluid cultures negative Objective Vital Signs Vital Signs Date Time Temp Pulse Resp B/P Pulse Ox O2 Delivery O2 Flow Rate FiO2 12/21/16 18:59 18 12/21/16 18:00 80 12/21/16 17:00 81 12/21/16 16:00 78 12/21/16 15:15 99 Nasal Cannula 4.00 12/21/16 15:00 75 12/21/16 15:00 98.7 81 18 129/73 96 12/21/16 14:00 76 12/21/16 13:00 72 12/21/16 12:00 78 12/21/16 11:00 81 12/21/16 11:00 98.7 83 18 92/55 97 12/21/16 10:00 81 12/21/16 09:45 95 Nasal Cannula 4.00 12/21/16 09:00 93 12/21/16 09:00 98.5 94 16 123/76 93 12/21/16 07:47 97.4 89 12 123/70 98 12/21/16 04:00 81 12/21/16 04:00 97.6 81 20 105/60 92 12/21/16 02:00 88 12/21/16 00:08 99 Nasal Cannula 4.00 12/21/16 00:00 97.8 87 20 81/47 98 12/21/16 00:00 87 12/20/16 22:30 94 12/20/16 22:30 97.9 94 20 125/76 96 Arterial Line 12/20/16 22:00 89 25 121/63 92 Nasal Cannula 2 12/20/16 21:45 95 25 128/62 96 Nasal Cannula 2 Arterial Line 12/20/16 21:30 94 30 126/62 96 Nasal Cannula 2 12/20/16 21:15 92 26 125/60 95 Nasal Cannula 2 12/20/16 21:06 96 Nasal Cannula 2 12/20/16 21:00 89 15 132/63 96 Mechanical Ventilator 30 12/20/16 20:45 87 15 124/62 100 Mechanical Ventilator 30 12/20/16 20:45 30 12/20/16 20:30 87 13 123/62 99 Mechanical Ventilator 40 12/20/16 20:15 84 16 123/60 99 Mechanical Ventilator 40 12/20/16 20:06 40 12/20/16 20:05 99 40 12/20/16 20:00 84 24 119/60 94 Mechanical Ventilator 40 12/20/16 19:45 82 14 122/62 99 Mechanical Ventilator 40 12/20/16 19:42 96 50 12/20/16 19:42 40 12/20/16 19:30 77 14 109/70 100 Mechanical Ventilator 100 12/20/16 19:29 100 12/20/16 19:29 98.4 78 13 108/63 99 Mechanical Ventilator 100 12/20/16 19:29 78 108/63 12/20/16 19:25 100 100 I/O 12/20/16 12/20/16 12/20/16 12/21/16 12/21/16 12/21/16 07:00 15:00 23:00 07:00 15:00 23:00 Intake Total 0 ml 0 ml 670 ml 180 ml 850 ml Output Total 210 ml 410 ml 130 ml Balance 0 ml 0 ml 460 ml -230 ml 720 ml Intake Oral 0 ml 180 ml 600 ml IV Total 0 ml 70 ml 250 ml Other 600 ml Output Urine Total 250 ml Chest Tube Drainage Total 160 ml 130 ml Drainage Total 160 ml Estimated Blood Loss 50 ml # Voids 3 1 2 # Bowel Movements 0 1 1 Result Diagram: 12/21/1639912/21/16399 Objective Remarks GENERAL: MBMN WF, mild sob SKIN: Warm and dry. HEAD: Normocephalic. EYES: No scleral icterus. No injection or drainage. NECK: Supple, trachea midline. No JVD or lymphadenopathy. CARDIOVASCULAR: Regular rate and rhythm without murmurs, gallops, or rubs. RESPIRATORY: Breath sounds decreased right chest. No accessory muscle use. GASTROINTESTINAL: Abdomen soft, non-tender, nondistended. MUSCULOSKELETAL: No cyanosis, or edema. BACK: Nontender without obvious deformity. No CVA tenderness. A/P Assessment and Plan Recrrent pl effusion Likly infected pl fluid CAD, CABG Rectal bleed PLAN: Cont ABX Vanco ID Following chest tube to suction Supplement 02 to keep sat >90% Calixto Hall MD Dec 21, 2016 19:07
[2016-12-21] MEDS: DOCUSATE SODIUM 100 MG CAP PO SCH (21:05)
[2016-12-21] MEDS: POTASSIUM CHLORIDE 10 MEQ CONTROLLED RELEASE TAB PO SCH (21:05)
[2016-12-21] MEDS: PANTOPRAZOLE SOD 40 MG DELAYED RELEASE TAB PO SCH (21:06)
[2016-12-21] MEDS: SENNOSIDES 8.6 MG TAB PO SCH (21:06)
[2016-12-21] MEDS: valACYclovir HCL 500 MG TAB PO SCH (21:06)
[2016-12-21] MEDS: traZODone HCL 50 MG TAB PO SCH (21:06)
[2016-12-21] MEDS: DOCUSATE CALCIUM 240 MG CAP PO SCH (21:07)
[2016-12-21] MEDS: FENOFIBRATE 145 MG TAB PO SCH (21:07)
[2016-12-21] MEDS: ATORVASTATIN 80 MG TAB PO SCH (21:07)
[2016-12-22] VITALS (18 sets, daily range): BP systolic 105–145; BP diastolic 64–77; PULSE 66–99; RESP 16–20; TEMP 97.4–98.8; O2SAT 96–100
[2016-12-22] MEDS: RESP: ALBUTEROL 2.5 MG/3 ML NEB (SCH) NEB (04:00)
[2016-12-22 05:35] LABS: AUTOMATED NEUTROPHIL # 13.3 TH/MM3 (1.8-7.7); BASOPHIL # 0.1 TH/MM3 (0-0.2); BASOPHIL % 0.8 % (0.0-2.0); EOSINOPHIL # 0.1 TH/MM3 (0-0.4); EOSINOPHIL % 0.4 % (0.0-4.0); HEMATOCRIT 33.2 % (35.0-46.0); HEMO FLAGS DIFF FINAL; LYMPH % 5.8 % (9.0-44.0); LYMPHOCYTE # 0.9 TH/MM3 (1.0-4.8); MEAN CELL VOLUME 90.6 FL (80.0-100.0); MEAN CORPUSCULAR HEMOGLOBIN 28.7 PG (27.0-34.0); MEAN CORPUSCULAR HGB CONC 31.7 % (32.0-36.0); MONO % 7.5 % (0.0-8.0); NEUT % 85.5 % (16.0-70.0); PLATELET COUNT 600 TH/MM3 (150-450); RED BLOOD COUNT 3.66 MIL/MM3 (4.00-5.30); RED CELL DISTRIBUTION WIDTH 20.2 % (11.6-17.2); WHITE BLOOD COUNT 15.6 TH/MM3 (4.0-11.0)
[2016-12-22] MEDS: hydrALAZINE HCL 25 MG TAB PO SCH ×3 (05:43→20:59)
[2016-12-22] MEDS: DILTIAZEM HCL 60 MG TAB PO SCH ×3 (05:43→20:55)
[2016-12-22] MEDS: INSULIN ASPART SUPPLEMENTAL SCALE SQ SCH ×3 (05:43→18:00)
[2016-12-22] MEDS: LEVOTHYROXINE SODIUM 150 MCG TAB PO SCH (05:43)
[2016-12-22 06:03] LABS: BICARBONATE 29.9 MEQ/L (21.0-32.0); MAGNESIUM 1.9 MG/DL (1.5-2.5); POTASSIUM 4.8 MEQ/L (3.5-5.1)
[2016-12-22] MEDS: RESP: ALBUTEROL 2.5 MG/IPRATROPIUM 0.5 MG NEB (SCH) NEB ×3 (08:14→19:05)
[2016-12-22] MEDS: FLUTICASONE PROPIONATE 50 MCG/ACT 16 GM NASAL SPRAY EACH NARE SCH (09:00)
[2016-12-22] MEDS: PSYLLIUM FIBER SF/GF 6 GM POWD PKT PO SCH (09:00)
[2016-12-22] MEDS: SODIUM CHLORIDE 0.9% FLUSH 5 ML FLUSH IV FLUSH SCH ×2 (09:00→20:57)
[2016-12-22] MEDS: SUCRALFATE 1 GM/10 ML CUP PO SCH ×4 (09:27→20:56)
[2016-12-22] MEDS: MAGNESIUM HYDROXIDE SUSP 30 ML CUP PO SCH (09:28)
[2016-12-22] MEDS: BUMETANIDE 1 MG TAB PO SCH (09:29)
[2016-12-22] MEDS: ASPIRIN 81 MG CHEW TAB PO SCH (09:29)
[2016-12-22] MEDS: MULTIVITAMINS/MINERALS THERAPEUTIC TAB PO SCH (09:29)
[2016-12-22] MEDS: DULoxetine HCl DR 60 MG CAP PO SCH (09:29)
[2016-12-22] MEDS: METOPROLOL TARTRATE 25 MG TAB PO SCH ×2 (09:29→21:04)
[2016-12-22] MEDS: DOCUSATE SODIUM 100 MG CAP PO SCH ×2 (09:29→20:54)
[2016-12-22] MEDS: POLYETHYLENE GLYCOL 17 GM PKG PO SCH (09:29)
[2016-12-22] MEDS: ACETAMINOPHEN/HYDROcodone 325 MG/7.5 MG TAB PO PRN ×2 (11:36→20:56)
--- NOTE | 2016-12-22 12:53 | HHI.IDPN ---
Note Infectious Disease Note Patient sitting up in bedside chair x 3 hours so far. Breathing feels okay. Looks a little drowsy. Occasional cough. Coughed up a little bright red blood this am then sputum has been clear. No fever. Appetite remains poor. R. Chest tube in place following VATS and pleurodesis 12/20/16. Pleural fluid has no growth. PAST MEDICAL HISTORY Hypothyroidism, congestive heart failure, diabetes mellitus, hypertension, atrial fibrillation, COPD, gastroesophageal reflux disease, coronary disease, bypass graft February 2016, gastric bypass 2009, back surgery, bilateral cataract surgery, coronary stent in 2007. ALLERGIES PENICILLIN. ERYTHROMYCIN. LASIX. ANTIBIOTICS: Vancomycin. OBJECTIVE: Vital Signs Date Time Temp Pulse Resp B/P Pulse Ox O2 Delivery O2 Flow Rate FiO2 12/22/16 11:00 70 12/22/16 11:00 98.3 87 20 120/77 98 12/22/16 08:14 99 Nasal Cannula 4.00 12/22/16 07:00 88 12/22/16 07:00 97.4 87 20 115/76 100 12/22/16 06:00 70 12/22/16 05:00 67 12/22/16 04:00 74 12/22/16 03:00 76 12/22/16 03:00 98.5 76 16 105/64 97 12/22/16 01:00 70 12/22/16 00:00 73 12/21/16 23:00 98.8 73 16 96/54 96 12/21/16 23:00 68 12/21/16 22:00 80 12/21/16 21:00 77 12/21/16 20:00 78 12/21/16 19:00 80 12/21/16 19:00 98.7 80 18 105/62 100 12/21/16 18:59 18 12/21/16 18:00 80 12/21/16 17:00 81 12/21/16 16:00 78 12/21/16 15:15 99 Nasal Cannula 4.00 12/21/16 15:00 75 12/21/16 15:00 98.7 81 18 129/73 96 12/21/16 14:00 76 12/21/16 13:00 72 12/21/16 12/21/16 12/22/16 15:00 23:00 07:00 Intake Total 850 ml 600 ml Output Total 130 ml 650 ml Balance 720 ml -50 ml Intake Oral 600 ml 600 ml IV Total 250 ml Output Urine Total 550 ml Chest Tube Drainage Total 130 ml 100 ml # Voids 2 # Bowel Movements 1 Laboratory Tests Test 12/21/16 12/22/16 04:00 04:28 White Blood Count 18.0 TH/MM3 15.6 TH/MM3 Red Blood Count 3.25 MIL/MM3 3.66 MIL/MM3 Hemoglobin 9.6 GM/DL 10.5 GM/DL Hematocrit 29.0 % 33.2 % Mean Corpuscular Volume 89.4 FL 90.6 FL Mean Corpuscular Hemoglobin 29.5 PG 28.7 PG Mean Corpuscular Hemoglobin 33.0 % 31.7 % Concent Red Cell Distribution Width 19.9 % 20.2 % Platelet Count 583 TH/MM3 600 TH/MM3 Mean Platelet Volume 8.6 FL 8.1 FL Neutrophils (%) (Auto) 93.1 % 85.5 % Lymphocytes (%) (Auto) 2.7 % 5.8 % Monocytes (%) (Auto) 3.7 % 7.5 % Eosinophils (%) (Auto) 0.0 % 0.4 % Basophils (%) (Auto) 0.5 % 0.8 % Neutrophils # (Auto) 16.8 TH/MM3 13.3 TH/MM3 Lymphocytes # (Auto) 0.5 TH/MM3 0.9 TH/MM3 Monocytes # (Auto) 0.7 TH/MM3 1.2 TH/MM3 Eosinophils # (Auto) 0.0 TH/MM3 0.1 TH/MM3 Basophils # (Auto) 0.1 TH/MM3 0.1 TH/MM3 CBC Comment DIFF FINAL DIFF FINAL Differential Comment Laboratory Tests Test 12/21/16 12/22/16 04:00 04:38 Sodium Level 142 MEQ/L 136 MEQ/L Potassium Level 4.3 MEQ/L 4.8 MEQ/L Chloride Level 104 MEQ/L 100 MEQ/L Carbon Dioxide Level 30.5 MEQ/L 29.9 MEQ/L Anion Gap 8 MEQ/L 6 MEQ/L Blood Urea Nitrogen 23 MG/DL 31 MG/DL Creatinine 0.97 MG/DL 1.46 MG/DL Estimat Glomerular Filtration 56 ML/MIN 35 ML/MIN Rate Random Glucose 139 MG/DL 132 MG/DL Calcium Level 8.6 MG/DL 9.0 MG/DL Magnesium Level 1.9 MG/DL Microbiology Date/Time Procedure Status Source Growth 12/20/16 19:19 Gram Stain - Final Resulted Fluid Pleural Fluid 12/20/16 19:19 Body Fluid Culture - Preliminary Resulted Fluid Pleural Fluid NO GROWTH IN 24 HOURS. 12/20/16 19:19 Acid Fast Stain - Final Resulted Fluid Pleural Fluid NO ACID FAST BACILLI SEEN 12/20/16 19:19 Mycobacterial Culture Resulted Fluid Pleural Fluid Pending 12/20/16 19:19 Fungal Smear - Final Resulted Fluid Pleural Fluid NO FUNGAL ELEMENTS SEEN. 12/20/16 19:19 Fungal Culture Resulted Fluid Pleural Fluid Pending IMAGING: Chest X-Ray 12/21/16 0600 Signed Impressions: Service Date/Time: Wednesday, December 21, 2016 04:06 - CONCLUSION: 1. Increased bilateral airspace consolidation. Pleural effusions also remain present. 2. A right chest tube is present no pneumothorax is visualized. Mango Hou MD PHYSICAL EXAMINATION GENERAL: No acute distress. Awake and alert. HEENT: No icterus. Moist mucosa. No lesions. NECK: Supple without adenopathy. HEART: Irregular S1S2. LUNGS: Good air movement. slight rales sounds at the R. base. chest tube has serous fluid. ABDOMEN: Bowel sounds present, soft, nontender. EXTREMITIES: No clubbing, cyanosis or edema. SKIN: No rash. Warm and moist. NEURO: Nonfocal. PSYCH: Pleasant, calm and cooperative. IMPRESSION Chronic/ recurrent R. pleural effusion. MRSA. - Post VATS and talc pleurodesis. Pleural fluid culture has no growth. Leukocytosis. WBC remain increased but lower. Hemoptysis. Monitor. RECOMMENDATIONS 1. Continue vancomycin. Follow levels. 2. Follow pleural fluid culture. If negative at 72 hours.Stop Vancomycin. 3. Monitor temp and WBC. Nathan Morocho MD Dec 22, 2016 12:53
[2016-12-22] MEDS ORDERED: PHARMACY ORDERED LAB ONE (15:45)
[2016-12-22] MEDS: VANCOMYCIN 1,000 MG/NS 250 ML IV SCH ×2 (15:55)
--- NOTE | 2016-12-22 17:34 | HHI.PR ---
Subjective Remarks doing very well chest tube drainage less Objective Vitals Vital Signs Date Time Temp Pulse Resp B/P Pulse Ox O2 Delivery O2 Flow Rate FiO2 12/22/16 15:00 98.3 84 18 145/77 96 12/22/16 15:00 83 12/22/16 13:00 74 12/22/16 12:58 16 12/22/16 11:00 70 12/22/16 11:00 98.3 87 20 120/77 98 12/22/16 08:14 99 Nasal Cannula 4.00 12/22/16 07:00 88 12/22/16 07:00 97.4 87 20 115/76 100 12/22/16 06:00 70 12/22/16 05:00 67 12/22/16 04:00 74 12/22/16 03:00 76 12/22/16 03:00 98.5 76 16 105/64 97 12/22/16 01:00 70 12/22/16 00:00 73 12/21/16 23:00 98.8 73 16 96/54 96 12/21/16 23:00 68 12/21/16 22:00 80 12/21/16 21:00 77 12/21/16 20:00 78 12/21/16 19:00 80 12/21/16 19:00 98.7 80 18 105/62 100 12/21/16 18:00 80 I/O 12/21/16 12/21/16 12/21/16 12/22/16 12/22/16 12/22/16 06:59 14:59 22:59 06:59 14:59 22:59 Intake Total 180 ml 850 ml 600 ml 400 ml Output Total 410 ml 130 ml 650 ml 450 ml Balance -230 ml 720 ml -50 ml -50 ml Intake Oral 180 ml 600 ml 600 ml 400 ml IV Total 250 ml Output Urine Total 250 ml 550 ml 400 ml Chest Tube Drainage Total 160 ml 130 ml 100 ml 50 ml # Voids 1 2 # Bowel Movements 1 1 Result Diagram: 12/22/16 0428 12/22/16 043 Imaging Last Impressions Chest X-Ray 12/21/16 0600 Signed Impressions: Service Date/Time: Wednesday, December 21, 2016 04:06 - CONCLUSION: 1. Increased bilateral airspace consolidation. Pleural effusions also remain present. 2. A right chest tube is present no pneumothorax is visualized. Mango Hou MD Chest Ultrasound 12/11/16 0000 Signed Impressions: Service Date/Time: Sunday, December 11, 2016 18:23 - CONCLUSION: Small right-sided pleural effusion measuring approximately 400 mL in volume. The patient declined thoracentesis. John Peace Jr., MD Chest CT 12/11/16 0000 Signed Impressions: Service Date/Time: Sunday, December 11, 2016 16:29 - CONCLUSION: 1. Enlargement in the bilateral pleural effusions. Both are small. 2. Development of intra-alveolar infiltrate within the left upper lobe. This could relate to pulmonary edema or an infectious infiltrate. 3. Significant coronary artery atherosclerotic calcifications. John Peace Jr., MD Objective Remarks awake and alert no distress anicteric lungs- decreased breath sounds, no rales or wheezes abdomen-soft, nontender extremities no edema neuro exam- unremarkable Procedures 12/10- colonoscopy- diverticuloses, no active bleeding, hemorrhoids, AVM- no bleeding -EGD- ulceration-gastric anastomotic area A/P Problem List: (1) GI bleed ICD Code: K92.2 Status: Acute Assessment and Plan 76 Y/O female who was sent by steam table worker for evaluation of suspected malfunctioning pleural tube but had bloody bowel movement while in ED. Patient with recurrent pleural effusion, has been seen by CT surgery who recommend VATS. Recurrent pleural effusion, right empyema. Sepsis- Pleural tube malfunction. MRSA Leukocytosis - CT chest shows: small bilateral pleural effusions which are smaller from the prior study. No discrete infiltrate. Cardiomegaly. - Pulmonary Dr. Hall following here. She normally follows with Dr. Mills as OP - IV Vancomycin- pharmacy. ID following. Follow fluid studies and cultures.- Dr. pimentel ff -CT surgery following, status post Right thoracoscopic exploration to drain recurrent right pleural effusion, Talc pleuradesis on 12/20/16 Chest tube- CT surgery ff -for CT management GI bleed- S/P EGD- gastric anastomotic ulcer , diverticulosis , hemorrhoids on colonoscopy 12/10- no active bleeding - S/P 2 units RBC. H and H stable - Okay by GI to restart Xarelto- - on PPI, Metamucil, Carafate History of A. fib -on BB + CCB- - stable on Cardizem to 60 mg po q 8 - on bumex 1 mg daily -Resume Xarelto once cleared by general surgery. Acute on CKI: - creatinine up today 12/22 -start gentle IV- NS 70 cc/hr x 1 Liter recheck in am -Avoid nephrotoxins. Anxiety/depression: Continue Cymbalta Xanax PRN DM - Sliding scale- for now- hold Levemir- improved readings - Patient refused diabetic diet. She is not eating much. Will allow regular diet. - consider restarting HS insulin, if blood sugars stable- history of hypothyroidism- on Synthroid DVT prophylaxis 76 y/o female who was sent by steam table worker for evaluation of suspected malfunctioning pleural tube but had bloody bowel movement while in ED. DNR/DNI - verified by patient . Problem Qualifiers (1) GI bleed: Qualified Code: K92.2 - Gastrointestinal hemorrhage, unspecified gastrointestinal hemorrhage type Kortney Cee MD Dec 22, 2016 17:34 Kortney Cee MD Dec 22, 2016 17:34
[2016-12-22] MEDS: SODIUM CHLOR 0.9% 1000 ML INJ 1,000 ML IV SCH (17:45)
--- NOTE | 2016-12-22 18:29 | HHI.PR ---
Subjective Remarks 76 YOWF with CAD,s/p CABG, recurrent pl eff, Rectal bleed Pl fluid growing MRSA Up in chair had VATS and pleurodesis Chest tube draining Pleural fluid cultures negative feels weak Objective Vital Signs Vital Signs Date Time Temp Pulse Resp B/P Pulse Ox O2 Delivery O2 Flow Rate FiO2 12/22/16 18:19 76 12/22/16 15:00 98.3 84 18 145/77 96 12/22/16 15:00 83 12/22/16 13:00 74 12/22/16 12:58 16 12/22/16 11:00 70 12/22/16 11:00 98.3 87 20 120/77 98 12/22/16 08:14 99 Nasal Cannula 4.00 12/22/16 07:00 88 12/22/16 07:00 97.4 87 20 115/76 100 12/22/16 06:00 70 12/22/16 05:00 67 12/22/16 04:00 74 12/22/16 03:00 76 12/22/16 03:00 98.5 76 16 105/64 97 12/22/16 01:00 70 12/22/16 00:00 73 12/21/16 23:00 98.8 73 16 96/54 96 12/21/16 23:00 68 12/21/16 22:00 80 12/21/16 21:00 77 12/21/16 20:00 78 12/21/16 19:00 80 12/21/16 19:00 98.7 80 18 105/62 100 I/O 12/21/16 12/21/16 12/21/16 12/22/16 12/22/16 12/22/16 07:00 15:00 23:00 07:00 15:00 23:00 Intake Total 180 ml 850 ml 600 ml 400 ml Output Total 410 ml 130 ml 650 ml 450 ml Balance -230 ml 720 ml -50 ml -50 ml Intake Oral 180 ml 600 ml 600 ml 400 ml IV Total 250 ml Output Urine Total 250 ml 550 ml 400 ml Chest Tube Drainage Total 160 ml 130 ml 100 ml 50 ml # Voids 1 2 # Bowel Movements 1 1 Result Diagram: 12/22/16 0428 12/22/16 0438 Objective Remarks GENERAL: MBMN WF, mild sob SKIN: Warm and dry. HEAD: Normocephalic. EYES: No scleral icterus. No injection or drainage. NECK: Supple, trachea midline. No JVD or lymphadenopathy. CARDIOVASCULAR: Regular rate and rhythm without murmurs, gallops, or rubs. RESPIRATORY: Breath sounds decreased right chest. No accessory muscle use. GASTROINTESTINAL: Abdomen soft, non-tender, nondistended. MUSCULOSKELETAL: No cyanosis, or edema. BACK: Nontender without obvious deformity. No CVA tenderness. A/P Assessment and Plan Recrrent pl effusion Likly infected pl fluid CAD, CABG Rectal bleed PLAN: Cont ABX Vanco ID Following chest tube to suction Supplement 02 to keep sat >90% Check cultures Calixto Hall MD Dec 22, 2016 18:29
[2016-12-22] MEDS: ATORVASTATIN 80 MG TAB PO SCH (20:54)
[2016-12-22] MEDS: ALPRAZolam 0.25 MG TAB PO PRN (20:54)
[2016-12-22] MEDS: PANTOPRAZOLE SOD 40 MG DELAYED RELEASE TAB PO SCH (20:54)
[2016-12-22] MEDS: traZODone HCL 50 MG TAB PO SCH (20:55)
[2016-12-22] MEDS: SENNOSIDES 8.6 MG TAB PO SCH (20:55)
[2016-12-22] MEDS: FENOFIBRATE 145 MG TAB PO SCH (20:56)
[2016-12-22] MEDS: valACYclovir HCL 500 MG TAB PO SCH (20:56)
[2016-12-22] MEDS: POTASSIUM CHLORIDE 10 MEQ CONTROLLED RELEASE TAB PO SCH (20:57)
[2016-12-22] MEDS: DOCUSATE CALCIUM 240 MG CAP PO SCH (21:00)
[2016-12-23] VITALS (29 sets, daily range): BP systolic 111–136; BP diastolic 64–88; PULSE 66–104; RESP 18–20; TEMP 97.9–99.3; O2SAT 95–99
[2016-12-23] MEDS: LEVOTHYROXINE SODIUM 150 MCG TAB PO SCH (05:32)
[2016-12-23] MEDS: hydrALAZINE HCL 25 MG TAB PO SCH ×3 (05:32→20:52)
[2016-12-23] MEDS: SUCRALFATE 1 GM/10 ML CUP PO SCH ×4 (05:32→20:54)
[2016-12-23] MEDS: DILTIAZEM HCL 60 MG TAB PO SCH ×3 (05:32→20:52)
[2016-12-23] MEDS: INSULIN ASPART SUPPLEMENTAL SCALE SQ SCH ×5 (06:00→23:17)
--- NOTE | 2016-12-23 06:28 | RADRPT ---
EXAM DATE/TIME: 12/23/2016 04:20 [facility] COMPARISON: CHEST SINGLE AP, December 21, 2016, 4:06. INDICATIONS : Short of breath. MEDICAL HISTORY : Hypertension. Congestive heart failure. Cardiovascular disease. SURGICAL HISTORY : CABG. ENCOUNTER: Subsequent ACUITY: 2 weeks PAIN SCORE: 0/10 LOCATION: Bilateral chest FINDINGS: Portable AP view of the chest demonstrates enlargement of the cardiac silhouette in this patient post median sternotomy. Right chest tube remains present and no pneumothorax is identified. There is airs pace consolidation in the right mid and lower lung zone with associated pleural based opacity. A smal l locule of air overlies the right pleural region. There is a retrocardiac opacity. CONCLUSION: 1. The right chest tube remains present no pneumothorax is identified. 2. Right lung airspace consolidation and pleural-based opacity remain present but overall improved. L eft lung consolidation has also improved with a residual atelectasis versus consolidation at the left lung base with associated small pleural effusion. 3. Stable enlargement of the cardiac silhouette. Mango Hou MD on December 23, 2016 at 6:25 Board Certified Radiologist. This report was verified electronically.
[2016-12-23 06:35] LABS: BICARBONATE 29.7 MEQ/L (21.0-32.0); POTASSIUM 5.1 MEQ/L (3.5-5.1)
[2016-12-23] MEDS: SODIUM CHLOR 0.9% 1000 ML INJ 1,000 ML IV SCH ×2 (08:45→22:21)
[2016-12-23] MEDS: SODIUM CHLORIDE 0.9% FLUSH 5 ML FLUSH IV FLUSH SCH ×2 (09:00→20:54)
[2016-12-23] MEDS: POLYETHYLENE GLYCOL 17 GM PKG PO SCH (09:00)
[2016-12-23] MEDS: PSYLLIUM FIBER SF/GF 6 GM POWD PKT PO SCH (09:00)
[2016-12-23] MEDS: METOPROLOL TARTRATE 25 MG TAB PO SCH ×2 (09:26→20:52)
[2016-12-23] MEDS: DULoxetine HCl DR 60 MG CAP PO SCH (09:26)
[2016-12-23] MEDS: MAGNESIUM HYDROXIDE SUSP 30 ML CUP PO SCH (09:26)
[2016-12-23] MEDS: MULTIVITAMINS/MINERALS THERAPEUTIC TAB PO SCH (09:26)
[2016-12-23] MEDS: BUMETANIDE 1 MG TAB PO SCH (09:26)
[2016-12-23] MEDS: ASPIRIN 81 MG CHEW TAB PO SCH (09:26)
[2016-12-23] MEDS: DOCUSATE SODIUM 100 MG CAP PO SCH ×2 (09:26→20:51)
[2016-12-23] MEDS: FLUTICASONE PROPIONATE 50 MCG/ACT 16 GM NASAL SPRAY EACH NARE SCH (09:27)
--- NOTE | 2016-12-23 09:51 | PD.CAR.PN ---
CVT Progress Note CVT: POD #: 3 Subjective/Hospital Course: c/o dyspnea. pt was eval by IR apparent no retained portion of pig tail cath that was accidentally dislodged by pt for right video assisted thorascopy with drainage of loculated effusion, possible decortication on Wednesday 12/20 continue antibiotics per ID 12/17 for surgery on Wednesday 12/20 remains on 02 pt agrees to resend DNR status for surgery 12/19/16 No complaints today. Ready for her surgery tomorrow. 12/21/16 No complaints, breathing easier 12/23/16 Doing well, no complaints Objective: Vital Signs Date Time Temp Pulse Resp B/P Pulse Ox O2 Delivery O2 Flow Rate FiO2 12/23/16 09:00 95 Nasal Cannula 4.00 12/23/16 07:01 92 12/23/16 06:01 88 12/23/16 05:01 74 12/23/16 04:01 87 12/23/16 03:01 98.5 75 18 130/70 95 12/23/16 03:01 75 12/23/16 02:01 76 12/23/16 01:05 81 12/23/16 00:01 104 12/22/16 23:01 98.8 81 18 124/71 96 12/22/16 23:01 69 12/22/16 22:01 84 12/22/16 21:01 78 12/22/16 20:01 66 12/22/16 19:05 96 Nasal Cannula 4.00 12/22/16 19:01 68 12/22/16 19:01 97.9 71 18 115/64 100 12/22/16 18:19 76 12/22/16 15:00 98.3 84 18 145/77 96 12/22/16 15:00 83 12/22/16 13:00 74 12/22/16 12:58 16 12/22/16 11:00 70 12/22/16 11:00 98.3 87 20 120/77 98 Labs: Laboratory Tests Test 12/23/16 04:57 Sodium Level 135 MEQ/L (136-145) Potassium Level 5.1 MEQ/L (3.5-5.1) Chloride Level 100 MEQ/L (98-107) Carbon Dioxide Level 29.7 MEQ/L (21.0-32.0) Anion Gap 5 MEQ/L (5-15) Blood Urea Nitrogen 36 MG/DL (7-18) Creatinine 1.34 MG/DL (0.50-1.00) Estimat Glomerular Filtration 39 ML/MIN (>89) Rate Random Glucose 133 MG/DL (74-106) Calcium Level 8.9 MG/DL (8.5-10.1) Random Vancomycin Level 26.2 COMMENT Result Diagram: 12/22/16 0428 12/23/16 0457 Imaging: Last 24 hours Impressions Chest X-Ray 12/23/16 0600 Signed Impressions: Service Date/Time: November 04:20 - CONCLUSION: 1. The right chest tube remains present no pneumothorax is identified. 2. Right lung airspace consolidation and pleural-based opacity remain present but overall improved. Left lung consolidation has also improved with a residual atelectasis versus consolidation at the left lung base with associated small pleural effusion. 3. Stable enlargement of the cardiac silhouette. Mango Hou MD Cardiovascular: RRR Pulmonary: CTA GI/: NABS, NT Incision: dry and intact CT: 75ml/12hrs, no air leak Plan: Chest tube to water seal Plan to remove tube tomorrow and sign off. Discharge per primary service (1) Recurrent right pleural effusion Plan: Ms. Garcia is undergoing intermediate risk surgery, no CV complaints, good functional capacity. per Cardiology (2) HTN (hypertension) (3) PNA (pneumonia) Mi Blackwell MD Dec 23, 2016 09:51
--- NOTE | 2016-12-23 13:26 | HHI.IDPN ---
Note Infectious Disease Note Patient feels okay. Breathing is better. No sputum production. No fever, chills nausea. R. Chest tube in place following VATS and pleurodesis 12/20/16. Pleural fluid has no growth. PAST MEDICAL HISTORY Hypothyroidism, congestive heart failure, diabetes mellitus, hypertension, atrial fibrillation, COPD, gastroesophageal reflux disease, coronary disease, bypass graft February 2016, gastric bypass 2009, back surgery, bilateral cataract surgery, coronary stent in 2007. ALLERGIES PENICILLIN. ERYTHROMYCIN. LASIX. ANTIBIOTICS: Vancomycin. OBJECTIVE: Vital Signs Date Time Temp Pulse Resp B/P Pulse Ox O2 Delivery O2 Flow Rate FiO2 12/23/16 12:01 76 12/23/16 11:01 97.9 68 18 125/67 95 12/23/16 11:00 68 12/23/16 10:00 70 12/23/16 09:00 74 12/23/16 09:00 95 Nasal Cannula 4.00 12/23/16 08:45 97.9 72 18 111/64 98 12/23/16 08:00 84 12/23/16 07:01 92 12/23/16 06:01 88 12/23/16 05:01 74 12/23/16 04:01 87 12/23/16 03:01 98.5 75 18 130/70 95 12/23/16 03:01 75 12/23/16 02:01 76 12/23/16 01:05 81 12/23/16 00:01 104 12/22/16 23:01 98.8 81 18 124/71 96 12/22/16 23:01 69 12/22/16 22:01 84 12/22/16 21:01 78 12/22/16 20:01 66 12/22/16 19:05 96 Nasal Cannula 4.00 12/22/16 19:01 68 12/22/16 19:01 97.9 71 18 115/64 100 12/22/16 18:19 76 12/22/16 15:00 98.3 84 18 145/77 96 12/22/16 15:00 83 12/22/16 12/22/16 12/23/16 15:00 23:00 07:00 Intake Total 400 ml 1259 ml Output Total 450 ml 201 ml Balance -50 ml 1058 ml Intake Oral 400 ml 240 ml IV Total 1019 ml Output Urine Total 400 ml 200 ml Stool Total 1 ml Chest Tube Drainage Total 50 ml Laboratory Tests Test 12/22/16 04:28 White Blood Count 15.6 TH/MM3 Red Blood Count 3.66 MIL/MM3 Hemoglobin 10.5 GM/DL Hematocrit 33.2 % Mean Corpuscular Volume 90.6 FL Mean Corpuscular Hemoglobin 28.7 PG Mean Corpuscular Hemoglobin 31.7 % Concent Red Cell Distribution Width 20.2 % Platelet Count 600 TH/MM3 Mean Platelet Volume 8.1 FL Neutrophils (%) (Auto) 85.5 % Lymphocytes (%) (Auto) 5.8 % Monocytes (%) (Auto) 7.5 % Eosinophils (%) (Auto) 0.4 % Basophils (%) (Auto) 0.8 % Neutrophils # (Auto) 13.3 TH/MM3 Lymphocytes # (Auto) 0.9 TH/MM3 Monocytes # (Auto) 1.2 TH/MM3 Eosinophils # (Auto) 0.1 TH/MM3 Basophils # (Auto) 0.1 TH/MM3 CBC Comment DIFF FINAL Differential Comment Laboratory Tests Test 12/22/16 12/23/16 04:38 04:57 Sodium Level 136 MEQ/L 135 MEQ/L Potassium Level 4.8 MEQ/L 5.1 MEQ/L Chloride Level 100 MEQ/L 100 MEQ/L Carbon Dioxide Level 29.9 MEQ/L 29.7 MEQ/L Anion Gap 6 MEQ/L 5 MEQ/L Blood Urea Nitrogen 31 MG/DL 36 MG/DL Creatinine 1.46 MG/DL 1.34 MG/DL Estimat Glomerular Filtration 35 ML/MIN 39 ML/MIN Rate Random Glucose 132 MG/DL 133 MG/DL Calcium Level 9.0 MG/DL 8.9 MG/DL Magnesium Level 1.9 MG/DL Microbiology Date/Time Procedure Status Source Growth 12/20/16 19:19 Gram Stain - Final Complete Fluid Pleural Fluid 12/20/16 19:19 Body Fluid Culture - Final Complete Fluid Pleural Fluid NO GROWTH IN 72 HRS.--AEROBICALLY OR ... 12/20/16 19:19 Acid Fast Stain - Final Resulted Fluid Pleural Fluid NO ACID FAST BACILLI SEEN 12/20/16 19:19 Mycobacterial Culture Resulted Fluid Pleural Fluid Pending 12/20/16 19:19 Fungal Smear - Final Resulted Fluid Pleural Fluid NO FUNGAL ELEMENTS SEEN. 12/20/16 19:19 Fungal Culture Resulted Fluid Pleural Fluid Pending IMAGING: Chest X-Ray 12/23/16 0600 Signed Impressions: Service Date/Time: November 04:20 - CONCLUSION: 1. The right chest tube remains present no pneumothorax is identified. 2. Right lung airspace consolidation and pleural-based opacity remain present but overall improved. Left lung consolidation has also improved with a residual atelectasis versus consolidation at the left lung base with associated small pleural effusion. 3. Stable enlargement of the cardiac silhouette. Mango Hou MD PHYSICAL EXAMINATION GENERAL: No acute distress. Awake and alert. HEENT: No icterus. Moist mucosa. NECK: Supple without adenopathy. HEART: Irregular S1S2. No murmurs. LUNGS: Good air movement. L. clear, slight rales at the R. base. chest tube has serous fluid. ABDOMEN: Bowel sounds present, soft, nontender. EXTREMITIES: No clubbing, cyanosis or edema. SKIN: No rash. Warm and moist. NEURO: Nonfocal. PSYCH: Pleasant, calm and cooperative. IMPRESSION Chronic/ recurrent R. pleural effusion. MRSA. - Post VATS and talc pleurodesis. Pleural fluid culture has no growth. Leukocytosis. Hemoptysis. Resolved. RECOMMENDATIONS Stop Vancomycin. Okay to discharge from my standpoint. I will sign off now. Nathan Morocho MD Dec 23, 2016 13:26
--- NOTE | 2016-12-23 14:07 | HHI.PR ---
Subjective Remarks Pain control. No shortness of breath. Looking for going home soon. Objective Vitals Vital Signs Date Time Temp Pulse Resp B/P Pulse Ox O2 Delivery O2 Flow Rate FiO2 12/23/16 12:01 76 12/23/16 11:01 97.9 68 18 125/67 95 12/23/16 11:00 68 12/23/16 10:00 70 12/23/16 09:00 74 12/23/16 09:00 95 Nasal Cannula 4.00 12/23/16 08:45 97.9 72 18 111/64 98 12/23/16 08:00 84 12/23/16 07:01 92 12/23/16 06:01 88 12/23/16 05:01 74 12/23/16 04:01 87 12/23/16 03:01 98.5 75 18 130/70 95 12/23/16 03:01 75 12/23/16 02:01 76 12/23/16 01:05 81 12/23/16 00:01 104 12/22/16 23:01 98.8 81 18 124/71 96 12/22/16 23:01 69 12/22/16 22:01 84 12/22/16 21:01 78 12/22/16 20:01 66 12/22/16 19:05 96 Nasal Cannula 4.00 12/22/16 19:01 68 12/22/16 19:01 97.9 71 18 115/64 100 12/22/16 18:19 76 12/22/16 15:00 98.3 84 18 145/77 96 12/22/16 15:00 83 I/O 12/22/16 12/22/16 12/22/16 12/23/16 12/23/16 12/23/16 07:00 15:00 23:00 07:00 15:00 23:00 Intake Total 600 ml 400 ml 1259 ml Output Total 650 ml 450 ml 201 ml Balance -50 ml -50 ml 1058 ml Intake Oral 600 ml 400 ml 240 ml IV Total 1019 ml Output Urine Total 550 ml 400 ml 200 ml Stool Total 1 ml Chest Tube Drainage Total 100 ml 50 ml Result Diagram: 12/22/16 0428 12/23/16 0457 Other Results Item Value Date Time Bedside Blood Glucose 169 mg/dl 12/23/16 1245 Bedside Blood Glucose 146 mg/dl 12/23/16 0601 Objective Remarks GENERAL: This is a well-nourished, well-developed patient, in no apparent distress. CARDIOVASCULAR: Regular rate and rhythm RESPIRATORY: Few crackles on the right base, chest tube in place. GASTROINTESTINAL: Abdomen soft, non-tender, nondistended. Normal active bowel sounds MUSCULOSKELETAL: Extremities without clubbing, cyanosis, trace edema NEURO: Alert & Oriented x4 to person, place, time, situation. Moves all ext x4 Procedures 12/10- colonoscopy- diverticuloses, no active bleeding, hemorrhoids, AVM- no bleeding -EGD- ulceration-gastric anastomotic area A/P Problem List: (1) GI bleed ICD Code: K92.2 Status: Acute Assessment and Plan 76 Y/O female who was sent by pbx operator for evaluation of suspected malfunctioning pleural tube but had bloody bowel movement while in ED. Patient with recurrent pleural effusion, has been seen by CT surgery who recommend VATS. Recurrent pleural effusion, right empyema. Sepsis- Pleural tube malfunction. MRSA, completed IV vancomycin per infectious disease. Leukocytosis trending down - CT chest shows: small bilateral pleural effusions which are smaller from the prior study. No discrete infiltrate. Cardiomegaly. - Pulmonary Dr. Hall following here. She normally follows with Dr. Mills as OP - IV Vancomycin completed -CT surgery following, status post Right thoracoscopic exploration to drain recurrent right pleural effusion, Talc pleuradesis on 12/20/16 Chest tube- CT surgery following and currently on water seal and plan to pull tube in the morning. GI bleed- S/P EGD- gastric anastomotic ulcer , diverticulosis , hemorrhoids on colonoscopy 12/10- no active bleeding - S/P 2 units RBC. Monitor hemoglobin, currently hemoglobin stable. - Okay by GI to restart Xarelto- - on PPI, Metamucil, Carafate History of A. fib -on BB + CCB- - stable on Cardizem to 60 mg po q 8, rate controlled. - on bumex 1 mg daily -Resume Xarelto once cleared by general surgery. Acute on CKI: - creatinine up today 12/22 -start gentle IV- NS 70 cc/hr x 1 Liter recheck in am -Avoid nephrotoxins. Anxiety/depression: Continue Cymbalta Xanax PRN DMadequate blood sugar control at this time. - Sliding scale- for now- hold Levemir- improved readings - Patient refused diabetic diet. She is not eating much. Continue regular diet. History of hypothyroidism- on Synthroid DVT prophylaxis SCDs, anticoagulation contraindication due to recent GI bleed. DNR/DNI - verified by patient . Discharge Planning Home with home health care once chest tube was removed and stable. Problem Qualifiers (1) GI bleed: Qualified Code: K92.2 - Gastrointestinal hemorrhage, unspecified gastrointestinal hemorrhage type Tara Cartagena MD Dec 23, 2016 14:06
--- NOTE | 2016-12-23 14:53 | HHI.FF ---
Face to Face Verification Diagnosis: (1) Sepsis (2) Empyema lung Physical Therapy Order: Evaluate and Treat I have seen patient Lorenza Garcia on 12/23/16. My clinical findings support the need for the requested home health care services because: Ltd mobility - disease progression I certify that my clinical findings support that this patient is homebound because: Post-op weakness Tara Cartagena MD Dec 23, 2016 14:53
[2016-12-23] MEDS ORDERED: WALKER WHEELS/F1 MIS (14:57)
[2016-12-23] MEDS: RESP: ALBUTEROL 2.5 MG/3 ML NEB (SCH) NEB ×2 (15:34→22:20)
--- NOTE | 2016-12-23 19:03 | HHI.PR ---
Subjective Remarks 76 YOWF with CAD,s/p CABG, recurrent pl eff, Rectal bleed Pl fluid growing MRSA Up in chair had VATS and pleurodesis Chest tube draining Pleural fluid cultures negative " they will remove chest tube in AM" Objective Vital Signs Vital Signs Date Time Temp Pulse Resp B/P Pulse Ox O2 Delivery O2 Flow Rate FiO2 12/23/16 15:28 98.1 78 18 128/88 95 12/23/16 14:01 88 12/23/16 13:00 84 12/23/16 12:01 76 12/23/16 11:01 97.9 68 18 125/67 95 12/23/16 11:00 68 12/23/16 10:00 70 12/23/16 09:00 74 12/23/16 09:00 95 Nasal Cannula 4.00 12/23/16 08:45 97.9 72 18 111/64 98 12/23/16 08:00 84 12/23/16 07:01 92 12/23/16 06:01 88 12/23/16 05:01 74 12/23/16 04:01 87 12/23/16 03:01 98.5 75 18 130/70 95 12/23/16 03:01 75 12/23/16 02:01 76 12/23/16 01:05 81 12/23/16 00:01 104 12/22/16 23:01 98.8 81 18 124/71 96 12/22/16 23:01 69 12/22/16 22:01 84 12/22/16 21:01 78 12/22/16 20:01 66 12/22/16 19:05 96 Nasal Cannula 4.00 I/O 12/22/16 12/22/16 12/22/16 12/23/16 12/23/16 12/23/16 07:00 15:00 23:00 07:00 15:00 23:00 Intake Total 600 ml 400 ml 1259 ml 720 ml Output Total 650 ml 450 ml 201 ml 870 ml Balance -50 ml -50 ml 1058 ml -150 ml Intake Oral 600 ml 400 ml 240 ml 720 ml IV Total 1019 ml Output Urine Total 550 ml 400 ml 200 ml 850 ml Stool Total 1 ml Chest Tube Drainage Total 100 ml 50 ml 20 ml # Voids 6 # Bowel Movements 3 Result Diagram: 12/22/16 0428 12/23/16 0507 Objective Remarks GENERAL: MBMN WF, mild sob SKIN: Warm and dry. HEAD: Normocephalic. EYES: No scleral icterus. No injection or drainage. NECK: Supple, trachea midline. No JVD or lymphadenopathy. CARDIOVASCULAR: Regular rate and rhythm without murmurs, gallops, or rubs. RESPIRATORY: Breath sounds decreased right chest. No accessory muscle use. GASTROINTESTINAL: Abdomen soft, non-tender, nondistended. MUSCULOSKELETAL: No cyanosis, or edema. BACK: Nontender without obvious deformity. No CVA tenderness. A/P Assessment and Plan Recrrent pl effusion Likly infected pl fluid CAD, CABG Rectal bleed PLAN: Cont ABX Vanco ID Following chest tube to suction Supplement 02 to keep sat >90% Calixto Hall MD Dec 23, 2016 19:03
[2016-12-23] MEDS: ATORVASTATIN 80 MG TAB PO SCH (20:50)
[2016-12-23] MEDS: POTASSIUM CHLORIDE 10 MEQ CONTROLLED RELEASE TAB PO SCH (20:51)
[2016-12-23] MEDS: DOCUSATE CALCIUM 240 MG CAP PO SCH (20:51)
[2016-12-23] MEDS: PANTOPRAZOLE SOD 40 MG DELAYED RELEASE TAB PO SCH (20:51)
[2016-12-23] MEDS: traZODone HCL 50 MG TAB PO SCH (20:52)
[2016-12-23] MEDS: ACETAMINOPHEN/HYDROcodone 325 MG/7.5 MG TAB PO PRN (20:53)
[2016-12-23] MEDS: SENNOSIDES 8.6 MG TAB PO SCH (20:53)
[2016-12-23] MEDS: FENOFIBRATE 145 MG TAB PO SCH (20:53)
[2016-12-23] MEDS: valACYclovir HCL 500 MG TAB PO SCH (21:29)
[2016-12-24] VITALS (33 sets, daily range): BP systolic 119–150; BP diastolic 75–97; PULSE 70–104; RESP 20; TEMP 98.3–98.7; O2SAT 92–100
[2016-12-24] MEDS: RESP: ALBUTEROL 2.5 MG/3 ML NEB (SCH) NEB ×3 (04:11→21:58)
[2016-12-24] MEDS: SUCRALFATE 1 GM/10 ML CUP PO SCH ×4 (05:47→21:34)
[2016-12-24] MEDS: LEVOTHYROXINE SODIUM 150 MCG TAB PO SCH (05:48)
[2016-12-24] MEDS: hydrALAZINE HCL 25 MG TAB PO SCH ×3 (05:48→21:33)
[2016-12-24] MEDS: DILTIAZEM HCL 60 MG TAB PO SCH ×3 (05:48→21:33)
[2016-12-24] MEDS: INSULIN ASPART SUPPLEMENTAL SCALE SQ SCH ×4 (05:49→21:00)
[2016-12-24 05:56] LABS: AUTOMATED NEUTROPHIL # 7.5 TH/MM3 (1.8-7.7); BASOPHIL # 0.1 TH/MM3 (0-0.2); EOSINOPHIL # 0.1 TH/MM3 (0-0.4); EOSINOPHIL % 1.1 % (0.0-4.0); HEMATOCRIT 26.8 % (35.0-46.0); HEMO FLAGS DIFF FINAL; LYMPH % 9.1 % (9.0-44.0); LYMPHOCYTE # 0.8 TH/MM3 (1.0-4.8); MEAN CELL VOLUME 88.1 FL (80.0-100.0); MEAN CORPUSCULAR HEMOGLOBIN 29.9 PG (27.0-34.0); MEAN CORPUSCULAR HGB CONC 33.9 % (32.0-36.0); MONO % 7.2 % (0.0-8.0); NEUT % 81.6 % (16.0-70.0); PLATELET COUNT 558 TH/MM3 (150-450); RED BLOOD COUNT 3.04 MIL/MM3 (4.00-5.30); RED CELL DISTRIBUTION WIDTH 20.4 % (11.6-17.2); WHITE BLOOD COUNT 9.2 TH/MM3 (4.0-11.0)
[2016-12-24 06:16] LABS: POTASSIUM 4.9 MEQ/L (3.5-5.1)
[2016-12-24] MEDS: DOCUSATE SODIUM 100 MG CAP PO SCH ×2 (08:46→21:32)
[2016-12-24] MEDS: METOPROLOL TARTRATE 25 MG TAB PO SCH ×2 (08:46→21:33)
[2016-12-24] MEDS: FLUTICASONE PROPIONATE 50 MCG/ACT 16 GM NASAL SPRAY EACH NARE SCH (08:47)
[2016-12-24] MEDS: ASPIRIN 81 MG CHEW TAB PO SCH (08:47)
[2016-12-24] MEDS: BUMETANIDE 1 MG TAB PO SCH (08:47)
[2016-12-24] MEDS: DULoxetine HCl DR 60 MG CAP PO SCH (08:47)
[2016-12-24] MEDS: SODIUM CHLORIDE 0.9% FLUSH 5 ML FLUSH IV FLUSH SCH ×2 (08:47→21:00)
[2016-12-24] MEDS: MULTIVITAMINS/MINERALS THERAPEUTIC TAB PO SCH (08:47)
[2016-12-24] MEDS: MAGNESIUM HYDROXIDE SUSP 30 ML CUP PO SCH (08:48)
[2016-12-24] MEDS: POLYETHYLENE GLYCOL 17 GM PKG PO SCH (08:48)
[2016-12-24] MEDS: PSYLLIUM FIBER SF/GF 6 GM POWD PKT PO SCH (08:48)
[2016-12-24] MEDS: ACETAMINOPHEN/HYDROcodone 325 MG/7.5 MG TAB PO PRN ×2 (12:05→21:34)
[2016-12-24] MEDS ORDERED: DEXTROSE 50% IN WATER 50 ML VIAL(D50) IV PRN (15:45)
[2016-12-24] MEDS ORDERED: GLUCAGON 1 MG/ML VIAL OTHER PRN (15:45)
--- NOTE | 2016-12-24 16:14 | HHI.PR ---
Subjective Remarks Patient states that she would like to go home with home health care. Just had her chest tube being taken out earlier. She is feeling extremely shaky is wondering if her blood sugar is low. She denies any active shortness of breath or chest pain. She declines going to [facility] facility. Objective Vitals Vital Signs Date Time Temp Pulse Resp B/P Pulse Ox O2 Delivery O2 Flow Rate FiO2 12/24/16 13:01 82 12/24/16 12:00 80 12/24/16 11:30 98.7 84 20 149/86 100 12/24/16 11:00 74 12/24/16 10:05 98 Nasal Cannula 3.00 12/24/16 10:00 74 12/24/16 09:00 78 12/24/16 08:30 98.4 79 20 121/78 98 12/24/16 08:00 76 12/24/16 07:01 78 12/24/16 06:00 82 12/24/16 05:00 80 12/24/16 04:13 96 Nasal Cannula 3.00 12/24/16 04:00 76 12/24/16 03:58 98.3 79 20 119/75 97 12/24/16 03:00 70 12/24/16 02:00 70 12/24/16 01:00 70 12/24/16 00:00 77 12/23/16 23:11 98.8 77 20 115/71 97 12/23/16 23:00 72 12/23/16 22:23 95 Nasal Cannula 4.00 12/23/16 22:00 76 12/23/16 21:50 20 12/23/16 21:00 74 12/23/16 20:00 72 12/23/16 19:44 99.3 74 20 136/76 99 12/23/16 19:44 83 12/23/16 18:00 72 12/23/16 17:00 82 I/O 12/23/16 12/23/16 12/23/16 12/24/16 12/24/16 12/24/16 07:00 15:00 23:00 07:00 15:00 23:00 Intake Total 1259 ml 720 ml 100 ml Output Total 201 ml 870 ml 850 ml Balance 1058 ml -150 ml -750 ml Intake Oral 240 ml 720 ml 100 ml IV Total 1019 ml 0 ml Output Urine Total 200 ml 850 ml 850 ml Stool Total 1 ml Emesis 0 ml Chest Tube Drainage Total 20 ml # Voids 6 # Bowel Movements 3 2 Result Diagram: 12/24/16 0505 12/24/16 0505 Other Results Item Value Date Time Bedside Blood Glucose 242 mg/dl 12/24/16 1206 Bedside Blood Glucose 96 mg/dl 12/24/16 0648 Bedside Blood Glucose 96 mg/dl 12/24/16 0549 Objective Remarks GENERAL: This is a well-nourished, well-developed patient, in no apparent distress. CARDIOVASCULAR: Regular rate and rhythm RESPIRATORY: Few crackles on the right base GASTROINTESTINAL: Abdomen soft, non-tender, nondistended. Normal active bowel sounds MUSCULOSKELETAL: Extremities without clubbing, cyanosis, trace edema NEURO: Alert & Oriented x4 to person, place, time, situation. Moves all ext x4 Procedures 12/10- colonoscopy- diverticuloses, no active bleeding, hemorrhoids, AVM- no bleeding -EGD- ulceration-gastric anastomotic area A/P Problem List: (1) GI bleed ICD Code: K92.2 Status: Acute Assessment and Plan 76 Y/O female who was sent by criminal analyst for evaluation of suspected malfunctioning pleural tube but had bloody bowel movement while in ED. Patient with recurrent pleural effusion, has been seen by CT surgery who recommend VATS. Recurrent pleural effusion, right empyema. Sepsis- Pleural tube malfunction. MRSA, completed IV vancomycin per infectious disease. Leukocytosis trending down - CT chest shows: small bilateral pleural effusions which are smaller from the prior study. No discrete infiltrate. Cardiomegaly. - Pulmonary Dr. Hall following here. She normally follows with Dr. Mills as OP, wean oxygen as tolerated. - IV Vancomycin completed -CT surgery following, status post Right thoracoscopic exploration to drain recurrent right pleural effusion, Talc pleuradesis on 12/20/16 Chest tube- CT surgery following and removed Chest tube today. GI bleed- S/P EGD- gastric anastomotic ulcer , diverticulosis , hemorrhoids on colonoscopy 12/10- no active bleeding - S/P 2 units RBC. Monitor hemoglobin, currently hemoglobin stable. - Okay by GI to restart Xarelto- - on PPI, Metamucil, Carafate History of A. fib -on BB + CCB- - stable on Cardizem to 60 mg po q 8, rate controlled. - on bumex 1 mg daily -Resume Xarelto once cleared by general surgery. Acute on CKI: Resolving discontinuing fluid hydration -Avoid nephrotoxins. Anxiety/depression: Continue Cymbalta Xanax PRN DMadequate blood sugar control at this time. - Sliding scale- for now- had episodes of hypoglycemic in the 40s just now likely due to high sliding scale insulin written. At this time will discontinue high sliding scale insulin and start low sliding NovoLog. Will restart LEVEMIR on a lower dose to have a more consistent basal blood glucose level. - Patient refused diabetic diet. She is not eating much. Continue regular diet. History of hypothyroidism- on Synthroid DVT prophylaxis SCDs, anticoagulation contraindication due to recent GI bleed. DNR/DNI - verified by patient . Discharge Planning Home with home health care tomorrow if blood sugar is more stable. Will check a walk fit test to determine if O2 is need to be arranged Problem Qualifiers (1) GI bleed: Qualified Code: K92.2 - Gastrointestinal hemorrhage, unspecified gastrointestinal hemorrhage type Tara Cartagena MD Dec 24, 2016 16:14
--- NOTE | 2016-12-24 18:08 | HHI.PR ---
Subjective Remarks 76 YOWF with CAD,s/p CABG, recurrent pl eff, Rectal bleed Pl fluid growing MRSA Up in chair had VATS and pleurodesis Chest tube draining Pleural fluid cultures negative Objective Vital Signs Vital Signs Date Time Temp Pulse Resp B/P Pulse Ox O2 Delivery O2 Flow Rate FiO2 12/24/16 17:48 3.00 12/24/16 13:01 82 12/24/16 12:00 80 12/24/16 11:30 98.7 84 20 149/86 100 12/24/16 11:00 74 12/24/16 10:05 98 Nasal Cannula 3.00 12/24/16 10:00 74 12/24/16 09:00 78 12/24/16 08:30 98.4 79 20 121/78 98 12/24/16 08:00 76 12/24/16 07:01 78 12/24/16 06:00 82 12/24/16 05:00 80 12/24/16 04:13 96 Nasal Cannula 3.00 12/24/16 04:00 76 12/24/16 03:58 98.3 79 20 119/75 97 12/24/16 03:00 70 12/24/16 02:00 70 12/24/16 01:00 70 12/24/16 00:00 77 12/23/16 23:11 98.8 77 20 115/71 97 12/23/16 23:00 72 12/23/16 22:23 95 Nasal Cannula 4.00 12/23/16 22:00 76 12/23/16 21:50 20 12/23/16 21:00 74 12/23/16 20:00 72 12/23/16 19:44 99.3 74 20 136/76 99 12/23/16 19:44 83 I/O 12/23/16 12/23/16 12/23/16 12/24/16 12/24/16 12/24/16 07:00 15:00 23:00 07:00 15:00 23:00 Intake Total 1259 ml 720 ml 100 ml Output Total 201 ml 870 ml 850 ml Balance 1058 ml -150 ml -750 ml Intake Oral 240 ml 720 ml 100 ml IV Total 1019 ml 0 ml Output Urine Total 200 ml 850 ml 850 ml Stool Total 1 ml Emesis 0 ml Chest Tube Drainage Total 20 ml # Voids 6 # Bowel Movements 3 2 Result Diagram: 12/24/16 0505 12/24/16 0505 Objective Remarks GENERAL: MBMN WF, mild sob SKIN: Warm and dry. HEAD: Normocephalic. EYES: No scleral icterus. No injection or drainage. NECK: Supple, trachea midline. No JVD or lymphadenopathy. CARDIOVASCULAR: Regular rate and rhythm without murmurs, gallops, or rubs. RESPIRATORY: Breath sounds decreased right chest. No accessory muscle use. GASTROINTESTINAL: Abdomen soft, non-tender, nondistended. MUSCULOSKELETAL: No cyanosis, or edema. BACK: Nontender without obvious deformity. No CVA tenderness. A/P Assessment and Plan Recrrent pl effusion Likly infected pl fluid CAD, CABG Rectal bleed PLAN: Cont ABX Vanco ID Following chest tube to suction Supplement 02 to keep sat >90% Possible cgest tube removal today Calixto Hall MD Dec 24, 2016 18:08
[2016-12-24] MEDS ORDERED: INSULIN DETEMIR 100 UNITS/ML VIAL SQ SCH (21:00)
[2016-12-24] MEDS: DOCUSATE CALCIUM 240 MG CAP PO SCH (21:32)
[2016-12-24] MEDS: ATORVASTATIN 80 MG TAB PO SCH (21:32)
[2016-12-24] MEDS: FENOFIBRATE 145 MG TAB PO SCH (21:32)
[2016-12-24] MEDS: ALPRAZolam 0.25 MG TAB PO PRN (21:32)
[2016-12-24] MEDS: SENNOSIDES 8.6 MG TAB PO SCH (21:32)
[2016-12-24] MEDS: POTASSIUM CHLORIDE 10 MEQ CONTROLLED RELEASE TAB PO SCH (21:33)
[2016-12-24] MEDS: PANTOPRAZOLE SOD 40 MG DELAYED RELEASE TAB PO SCH (21:33)
[2016-12-24] MEDS: traZODone HCL 50 MG TAB PO SCH (21:33)
[2016-12-24] MEDS: valACYclovir HCL 500 MG TAB PO SCH (21:34)
[2016-12-25] VITALS (14 sets, daily range): BP systolic 124–130; BP diastolic 73–84; PULSE 65–90; RESP 20; TEMP 97.7–98.5; O2SAT 95–97
[2016-12-25] MEDS: RESP: ALBUTEROL 2.5 MG/3 ML NEB (SCH) NEB ×2 (03:47→09:21)
[2016-12-25] MEDS: LEVOTHYROXINE SODIUM 150 MCG TAB PO SCH (06:03)
[2016-12-25] MEDS: SUCRALFATE 1 GM/10 ML CUP PO SCH ×2 (06:03→10:57)
[2016-12-25] MEDS: hydrALAZINE HCL 25 MG TAB PO SCH ×2 (06:03→14:32)
[2016-12-25] MEDS: DILTIAZEM HCL 60 MG TAB PO SCH ×2 (06:03→14:32)
[2016-12-25] MEDS: INSULIN ASPART SUPPLEMENTAL SCALE SQ SCH ×2 (06:06→11:00)
[2016-12-25] MEDS: SODIUM CHLORIDE 0.9% FLUSH 5 ML FLUSH IV FLUSH SCH (09:00)
[2016-12-25] MEDS: FLUTICASONE PROPIONATE 50 MCG/ACT 16 GM NASAL SPRAY EACH NARE SCH (09:00)
[2016-12-25] MEDS: MULTIVITAMINS/MINERALS THERAPEUTIC TAB PO SCH (09:00)
[2016-12-25] MEDS: DOCUSATE SODIUM 100 MG CAP PO SCH (09:56)
[2016-12-25] MEDS: BUMETANIDE 1 MG TAB PO SCH (09:57)
[2016-12-25] MEDS: DULoxetine HCl DR 60 MG CAP PO SCH (09:57)
[2016-12-25] MEDS: PSYLLIUM FIBER SF/GF 6 GM POWD PKT PO SCH (09:57)
[2016-12-25] MEDS: METOPROLOL TARTRATE 25 MG TAB PO SCH (09:57)
[2016-12-25] MEDS: ASPIRIN 81 MG CHEW TAB PO SCH (10:57)
--- NOTE | 2016-12-25 14:40 | HHI.PR ---
Subjective Remarks 76 YOWF with CAD,s/p CABG, recurrent pl eff, Rectal bleed Pl fluid growing MRSA Up in chair had VATS and pleurodesis chest tube removed Anxious to go home Objective Vital Signs Vital Signs Date Time Temp Pulse Resp B/P Pulse Ox O2 Delivery O2 Flow Rate FiO2 12/25/16 12:00 76 12/25/16 12:00 97.7 72 20 124/77 97 12/25/16 11:00 65 12/25/16 10:00 82 12/25/16 09:27 95 Nasal Cannula 2.00 12/25/16 09:00 84 12/25/16 08:00 98.5 88 20 130/84 95 12/25/16 08:00 90 12/25/16 07:00 87 12/25/16 06:00 84 12/25/16 05:00 78 12/25/16 04:00 70 12/25/16 03:13 98.3 76 20 124/73 95 12/25/16 02:00 74 12/25/16 01:00 76 12/25/16 00:00 76 12/24/16 23:31 98.5 74 20 127/78 97 12/24/16 23:00 84 12/24/16 22:30 20 12/24/16 22:00 80 12/24/16 21:00 80 12/24/16 20:57 92 Nasal Cannula 2.00 12/24/16 20:00 80 12/24/16 19:58 98.5 76 20 130/80 94 12/24/16 19:00 98 12/24/16 18:00 96 12/24/16 17:48 3.00 12/24/16 17:00 88 12/24/16 16:00 104 12/24/16 15:30 98.7 101 20 150/97 98 12/24/16 15:00 104 I/O 12/24/16 12/24/16 12/24/16 12/25/16 12/25/16 12/25/16 07:00 15:00 23:00 07:00 15:00 23:00 Intake Total 100 ml 840 ml 400 ml Output Total 850 ml 500 ml 0 ml Balance -750 ml 340 ml 400 ml Intake Oral 100 ml 840 ml 400 ml IV Total 0 ml 0 ml Output Urine Total 850 ml 500 ml Emesis 0 ml 0 ml # Voids 3 2 # Bowel Movements 2 0 0 Result Diagram: 12/24/16 0505 12/24/16 0505 Objective Remarks GENERAL: MBMN WF, mild sob SKIN: Warm and dry. HEAD: Normocephalic. EYES: No scleral icterus. No injection or drainage. NECK: Supple, trachea midline. No JVD or lymphadenopathy. CARDIOVASCULAR: Regular rate and rhythm without murmurs, gallops, or rubs. RESPIRATORY: Breath sounds decreased right chest. No accessory muscle use. GASTROINTESTINAL: Abdomen soft, non-tender, nondistended. MUSCULOSKELETAL: No cyanosis, or edema. BACK: Nontender without obvious deformity. No CVA tenderness. A/P Assessment and Plan Recrrent pl effusion Likly infected pl fluid CAD, CABG Rectal bleed PLAN: Cont ABX Vanco ID Following Supplement 02 to keep sat >90% DC plans underway Calixto Hall MD Dec 25, 2016 14:40
--- NOTE | 2016-12-25 15:54 | HHI.DS ---
Discharge Summary Admission Date Dec 07, 2016 at 22:47 Discharge Date: Dec 25, 2016 Admitting Diagnosis GI BLEED, UTI (1) GI bleed ICD Code: K92.2 Procedures 12/10- colonoscopy- diverticuloses, no active bleeding, hemorrhoids, AVM- no bleeding -EGD- ulceration-gastric anastomotic area Brief History - From Admission Written by Criss Hernandez, acting as scribe for Dr. Nesbitt on 12/07/16 at 23:25. Patient states she was at Dr. Mills office today and pleural tube, which was placed one week ago (usually drains 300 cc bid), had no drainage since Tuesday and also was having pain at tube insertion site. The reset merchandiser was concerned there may be infection and referred her to the ED. The patient had a CABG x 3 in February and states she has had problems ever since including sepsis , pneumonia, and CHF. Denies fever, cough, hemoptysis, shortness of breath, or edema. Has chronic diarrhea - had it today - does not occur every day but seems to occur mostly when nervous - has 4 - 5 bowels per day, denies nausea and vomiting. No known recent antibiotics. Poor appetite and weight loss of 70 pounds in 9 months. While in the emergency department, she felt like she needed to pass gas. There was blood in her underpants and she also had a moderate amount of bright, red, bloody stool including clots according to the patient and [employer]. She is on Xarelto at home for atrial fibrillation. She reports that she was having dizzy spells when the "visiting nurse" came earlier in the week but that has resolved. Denies syncope. Denies dysuria or hematuria. CBC/BMP: 12/24/16 0505 12/24/16 0505 Significant Findings Laboratory Tests Test 12/22/16 12/23/16 12/24/16 17:21 04:57 05:05 Vancomycin Level Trough 20.3 MCG/ML (5.0-10.0) Sodium Level 135 MEQ/L (136-145) Blood Urea Nitrogen 36 MG/DL (7-18) 31 MG/DL (7-18) Creatinine 1.34 MG/DL 1.06 MG/DL (0.50-1.00) (0.50-1.00) Estimat Glomerular Filtration 39 ML/MIN (>89) 51 ML/MIN (>89) Rate Random Glucose 133 MG/DL (74-106) Red Blood Count 3.04 MIL/MM3 (4.00-5.30) Hemoglobin 9.1 GM/DL (11.6-15.3) Hematocrit 26.8 % (35.0-46.0) Red Cell Distribution Width 20.4 % (11.6-17.2) Platelet Count 558 TH/MM3 (150-450) Neutrophils (%) (Auto) 81.6 % (16.0-70.0) Lymphocytes # (Auto) 0.8 TH/MM3 (1.0-4.8) Imaging Last Impressions Chest X-Ray 12/23/16 0600 Signed Impressions: Service Date/Time: November 04:20 - CONCLUSION: 1. The right chest tube remains present no pneumothorax is identified. 2. Right lung airspace consolidation and pleural-based opacity remain present but overall improved. Left lung consolidation has also improved with a residual atelectasis versus consolidation at the left lung base with associated small pleural effusion. 3. Stable enlargement of the cardiac silhouette. Mango Hou MD Chest Ultrasound 12/11/16 0000 Signed Impressions: Service Date/Time: Sunday, December 11, 2016 18:23 - CONCLUSION: Small right-sided pleural effusion measuring approximately 400 mL in volume. The patient declined thoracentesis. John Peace Jr., MD Chest CT 12/11/16 0000 Signed Impressions: Service Date/Time: Sunday, December 11, 2016 16:29 - CONCLUSION: 1. Enlargement in the bilateral pleural effusions. Both are small. 2. Development of intra-alveolar infiltrate within the left upper lobe. This could relate to pulmonary edema or an infectious infiltrate. 3. Significant coronary artery atherosclerotic calcifications. John Peace Jr., MD PE at Discharge GENERAL: This is a well-nourished, well-developed patient, in no apparent distress. CARDIOVASCULAR: Regular rate and rhythm RESPIRATORY: Few crackles on the right base GASTROINTESTINAL: Abdomen soft, non-tender, nondistended. Normal active bowel sounds MUSCULOSKELETAL: Extremities without clubbing, cyanosis, trace edema NEURO: Alert & Oriented x4 to person, place, time, situation. Moves all ext x4 Pt update on day of discharge Patient seen prior to discharge. Says she feels well. Denies any chest pain or shortness of breath. Would like to go home. Hospital Course 76 Y/O female who was sent by reset merchandiser for evaluation of suspected malfunctioning pleural tube but had bloody bowel movement while in ED. Patient with recurrent pleural effusion, has been seen by CT surgery who recommend VATS. Recurrent pleural effusion, right empyema. Sepsis- Pleural tube malfunction. MRSA, completed IV vancomycin per infectious disease. Leukocytosis trending down - CT chest shows: small bilateral pleural effusions which are smaller from the prior study. No discrete infiltrate. Cardiomegaly. - Pulmonary Dr. Hlal following here. She normally follows with Dr. Mills as OP, wean oxygen as tolerated. - IV Vancomycin completed -CT surgery following, status post Right thoracoscopic exploration to drain recurrent right pleural effusion, [place] pleuradesis on 12/20/16 Chest tube- CT surgery following and removed Chest tube today. GI bleed- S/P EGD- gastric anastomotic ulcer , diverticulosis , hemorrhoids on colonoscopy 12/10- no active bleeding - S/P 2 units RBC. Monitor hemoglobin, currently hemoglobin stable. - Okay by GI to restart Xarelto- - on PPI, Metamucil, Carafate History of A. fib -on BB + CCB- - stable on Cardizem to 60 mg po q 8, rate controlled. - on bumex 1 mg daily -Resume Xarelto once cleared by general surgery. Acute on CKI: Resolving discontinuing fluid hydration -Avoid nephrotoxins. Anxiety/depression: Continue Cymbalta Xanax PRN DMadequate blood sugar control at this time. - Sliding scale- for now- had episodes of hypoglycemic in the 40s just now likely due to high sliding scale insulin written. At this time will discontinue high sliding scale insulin and start low sliding NovoLog. Will restart LEVEMIR on a lower dose to have a more consistent basal blood glucose level. - Patient refused diabetic diet. She is not eating much. Continue regular diet. History of hypothyroidism- on Synthroid DVT prophylaxis SCDs, anticoagulation contraindication due to recent GI bleed. DNR/DNI - verified by patient . Discharge Planning Home with home health care tomorrow if blood sugar is more stable. Will check a walk fit test to determine if O2 is need to be arranged Pt Condition on Discharge: Good Discharge Disposition: Disch w/ Home Health Serv Discharge Time: > 30 minutes Discharge Instructions DIET: Follow Instructions for: As Tolerated, No Restrictions Activities you can perform: Regular-No Restrictions Follow up Referrals: PCP Follow-up with DR BELLAMY Pulmonology with Calixto Hall MD Surgical New Medications: Walker with Front Wheels (Walker with Front Wheels) 1 Mis Mis 1 EA .ROUTE DIRECTED #1 Ref 0 EA Continued Medications: Aspirin (Aspirin Low Strength) 81 Mg Chew 81 MG PO DAILY Days 30 EA Atorvastatin (Atorvastatin) 80 Mg Tab 80 MG PO HS Cholesterol Management #30 Ref 0 TAB Bumetanide (Bumetanide) 1 Mg Tab 1 MG PO DAILY DIU Days 30 TAB Cyanocobalamin Inj (Cyanocobalamin Inj) 1,000 Mcg/Ml Inj 1000 MCG IM EVERY 2 WEEKS #1 Ref 0 VIAL Diltiazem (Diltiazem) 90 Mg Tab 90 MG PO q6 hr Angina #120 Ref [address] (D[address]) 60 Mg Capdr 60 MG PO DAILY Depression Control Days 30 CAP Ergocalciferol (Ergocalciferol) 50,000 Unit Cap 37932 UNITS PO Q7D ON MONDAYS Nutritional Supplement #30 Ref 0 CAP Fenofibrate (Fenofibrate) 160 Mg Tab 160 MG PO HS #30 Ref 0 TAB Hydralazine HCl (Hydralazine HCl) 25 Mg Tablet 25 MG PO Q8HR Blood Pressure Management #90 Ref 0 TAB Hydrocodone-Acetaminophen (Lortab) 7.5-325 Mg Tab 1 TAB PO BID prior to draining cath #20 Ref 0 TAB Insulin Aspart Inj (Novolog Inj) 1,000 Unit/10 Ml Vial 2-10 UNITS SQ ACHS Sliding Scale Blood Sugar Management #10 Ref 0 ML Insulin Detemir Inj (Levemir Inj) 1,000 unit/ 10 ML Vial 15 UNITS SQ HS DM Days 30 INJECTION Levothyroxine (Levothyroxine) 150 Mcg Tab 150 MCG PO DAILY@0600 Thyroid #30 Ref 0 TAB Metoprolol Tartrate (Metoprolol Tartrate) 25 Mg Tab 25 MG PO Q12HR htn #60 TAB Multiple Vitamins W/ Minerals (Thera M Plus) 1 Tab 1 TAB PO DAILY Days 30 TAB Pantoprazole (Pantoprazole) 40 Mg Tab 40 MG PO DAILY Days 30 TAB Potassium Chloride ER (Klor-Con 10) 10 Meq Tab 10 MEQ PO HS Electrolyte Replacement #60 Ref 0 TAB Rivaroxaban (Xarelto) 10 Mg Tab 20 MG PO DAILY AFIB Days 30 Ref 10 TAB Trazodone (Trazodone) 50 Mg Tab 50 MG PO HS Days 30 TAB Valacyclovir (Valtrex) 1 Gm Tab 1 GM PO HS Mgmt Viral Infection #30 Ref 0 TAB Discontinued Medications: Rivaroxaban (Xarelto) 20 Mg Tab 20 MG PO DAILY Blood Clot Prevention Ref 0 TAB George Magana MD Dec 25, 2016 15:54
--- NOTE | 2016-12-26 17:24 | HHI.FF ---
Face to Face Verification Diagnosis: (1) Afib (2) PNA (pneumonia) (3) Generalized weakness Physical Therapy Order: Evaluate and Treat Home Health Nursing Order: Nursing assessment with vital signs I have seen patient Lorenza Garcia on 12/26/16. My clinical findings support the need for the requested home health care services because: Deconditioned w/ increased weakness I certify that my clinical findings support that this patient is homebound because: Unsafe to leave home unassisted George Magana MD Dec 26, 2016 17:24
== END 2016-12-25 15:08 | disposition home health service (06) | DRG 166 ==
LOC: NEPE 17:00 → NEDA 22:47 → OBSVTOIN 22:47 → HOCB 12-08 00:48 → HCIS 12-20 19:21 → HCVR 12-20 22:43 → HCIS 12-21 07:37
PROVIDERS: ADMIT Internal Medicine; ATTEND Internal Medicine
PROC: 30233N1 Transfusion of Nonautologous Red Blood Cells into Peripheral Vein, Percutaneous Approach (ICD-10-PCS; 2016-12-08)
PROC: 0DJ08ZZ Inspection of Upper Intestinal Tract, Via Natural or Artificial Opening Endoscopic (ICD-10-PCS; 2016-12-10)
PROC: 0DBL8ZX Excision of Transverse Colon, Via Natural or Artificial Opening Endoscopic, Diagnostic (ICD-10-PCS; 2016-12-10)
PROC: 3E0L3GC Introduction of Other Therapeutic Substance into Pleural Cavity, Percutaneous Approach (ICD-10-PCS; 2016-12-20)
PROC: 0W9940Z Drainage of Right Pleural Cavity with Drainage Device, Percutaneous Endoscopic Approach (ICD-10-PCS; principal; 2016-12-20 17:30)
DX: J86.9 Pyothorax without fistula (principal); A41.9 Sepsis, unspecified organism; N17.9 Acute kidney failure, unspecified; I13.0 Hypertensive heart and chronic kidney disease with heart failure and stage 1 through stage 4 chronic kidney disease, or unspecified chronic kidney disease; J90 Pleural effusion, not elsewhere classified; J18.9 Pneumonia, unspecified organism; K57.31 Diverticulosis of large intestine without perforation or abscess with bleeding; I50.9 Heart failure, unspecified; E11.22 Type 2 diabetes mellitus with diabetic chronic kidney disease; E11.649 Type 2 diabetes mellitus with hypoglycemia without coma; J44.0 Chronic obstructive pulmonary disease with (acute) lower respiratory infection; T85.618A Breakdown (mechanical) of other specified internal prosthetic devices, implants and grafts, initial encounter; R04.2 Hemoptysis; D64.9 Anemia, unspecified; K64.8 Other hemorrhoids; D12.3 Benign neoplasm of transverse colon; K28.9 Gastrojejunal ulcer, unspecified as acute or chronic, without hemorrhage or perforation; E03.9 Hypothyroidism, unspecified; K21.9 Gastro-esophageal reflux disease without esophagitis; I25.10 Atherosclerotic heart disease of native coronary artery without angina pectoris; E78.5 Hyperlipidemia, unspecified; B95.62 Methicillin resistant Staphylococcus aureus infection as the cause of diseases classified elsewhere; N18.9 Chronic kidney disease, unspecified; I48.2 Chronic atrial fibrillation; F32.9 Major depressive disorder, single episode, unspecified; R53.1 Weakness; Q27.33 Arteriovenous malformation of digestive system vessel; Z95.1 Presence of aortocoronary bypass graft; F41.9 Anxiety disorder, unspecified; Z98.84 Bariatric surgery status; Z95.5 Presence of coronary angioplasty implant and graft; Z87.891 Personal history of nicotine dependence; Z79.4 Long term (current) use of insulin; Z79.02 Long term (current) use of antithrombotics/antiplatelets; Z88.1 Allergy status to other antibiotic agents; Z88.0 Allergy status to penicillin; Z88.8 Allergy status to other drugs, medicaments and biological substances
CPT/HCPCS: 36430; 71010; 71250; 76604; 76937; 80048; 80053; 80202; 81001; 82565; 82728; 82805; 82945; 82948; 83540; 83550; 83605; 83735; 83986; 85014; 85018; 85025; 85027; 85610; 85730; 86403; 86850; 86900; 86901; 86920; 87015; 87040; 87070; 87086; 87102; 87116; 87147; 87186; 87205; 87206; 87493; 87641; 88305; 89051; 94002; 94150; 94620; 94640; 94664; 94667; 94668; J0131; J1610; J1815; J2405; J3010; J3370; J7030; J7040; J7050; J7070; J7613; P9016

== ENCOUNTER 2017-03-01 17:36 | Inpatient (IN) | payer OTHER ==
[~2017-03-01] VITALS: Ht 160 cm; Wt 51.7 kg
[~2017-03-01 17:36] MED LIST changes: +WALKER WHEELS/F1 MIS; -XARE20TA PO
[2017-03-01 17:46] VITALS: BP 165/86; PULSE 109; RESP 20; TEMP 98.4; O2SAT 93
[2017-03-01] MEDS ORDERED: DILTIAZEM HCL 25 MG/5 ML VIAL IV ONE (18:00)
[2017-03-01] MEDS ORDERED: BUMETANIDE INJ 1 MG/4 ML VIAL IV PUSH ONE (18:00)
[2017-03-01 18:01] VITALS: BP 161/96; PULSE 116; RESP 20; O2SAT 95
--- NOTE | 2017-03-01 18:14 | PD ---
HPI Chief Complaint: Respiratory Symptoms Time Seen by Provider: 17:44 Travel History International Travel<30 days: No Contact w/Intl Traveler<30days: No Traveled to known affect area: No History of Present Illness HPI 76-year-old female that presents to the ED for evaluation of shortness of breath and weakness. Per patient she has a significant history of atrial fibrillation, CHF and multiple thoracocentesis as well as pneumonias. She uses oxygen 2.5 L at home. She states that for the past week she's been feeling more short of breath. She also has a history of diabetes, high cholesterol, takes blood thinners. She states that she partially has not been compliant secondary to money. She states that she gets her medications once a month and she tries to take them all the same time but she has not had any of her medications for about 3 days now. She was seen by her studio couch frame builder today who sent her here immediately. She was brought here by ambulance. Per patient for the most per she feels short of breath more with exertion. She has any fevers chills or sweats. No chest pain. She does feel like she has to urinate more than usual. She feels swollen. She denies any abdominal pain. She does state that she has been urinating more than usual. No dysuria however. No blood. Multiple allergies to different medications including Lasix. She has been taking Bumetidine but she also ran out of his medication about 3 days ago. PFSH Past Medical History Hx Anticoagulant Therapy: Yes (XARELTO) Arthritis: Yes Asthma: No Atrial Fibrillation: Yes Autoimmune Disease: No Anxiety: Yes Depression: Yes Heart Rhythm Problems: Yes (A Fib) Cancer: No Cardiac Catheterization: Yes Cardiovascular Problems: Yes (TRIPLE BYPASS 03/15/16) High Cholesterol: Yes Chemotherapy: No Chest Pain: No Congestive Heart Failure: Yes COPD: Yes Cerebrovascular Accident: No Coronary Artery Disease: Yes Diabetes: Yes Diminished Hearing: Yes Endocrine: Yes Gastrointestinal Disorders: Yes GERD: Yes Genitourinary: No Hiatal Hernia: Yes Heparin Induced Thrombocytopen: No Hypertension: Yes Immune Disorder: No Kidney Stones: No Musculoskeletal: Yes Neurologic: Yes Psychiatric: Yes Reproductive: No Respiratory: Yes (10 THORACENTESIS) Migraines: No Pneumonia: Yes Radiation Therapy: No Renal Failure: No Seizures: No Sickle Cell Disease: No Sleep Apnea: Yes Thyroid Disease: Yes (Hypothyroid) Ulcer: Yes ?: Not Past Surgical History Abdominal Surgery: Yes (gastric bypass 2009) AICD: No Arteriovenous Shunt: No Body Medical Devices: CHEST CLOSURE Cardiac Surgery: Yes (ND 2007 with stent, CABG X 3 16) Coronary Artery Bypass Graft: Yes (X3 February 2016) Coronary Stent: Yes (X`1) Ear Surgery: No Endocrine Surgery: No Eye Surgery: Yes (bilateral cataract sx) Genitourinary Surgery: No Gynecologic Surgery: No Insulin Pump: No Joint Replacement: No Neurologic Surgery: No Oral Surgery: Yes (teeth extraction, wisdom) Pacemaker: No Thoracic Surgery: No Other Surgery: Yes Social History Alcohol Use: Yes (RARE) Tobacco Use: No Substance Use: No Allergies-Medications (Allergen,Severity, Reaction): Coded Allergies: erythromycin base (Unverified Allergy, Unknown, 01/11/17) furosemide (Unverified Allergy, Unknown, 01/11/17) penicillin G (Unverified Allergy, Unknown, 01/11/17) *MDRO Multi-Drug Resistant Organism (Verified Adverse Reaction, Unknown, ) 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 - 09/15/2016 & 12/09/16 MRSA (pleural fluid) Reported Meds & Prescriptions Reported Meds & Active Scripts Active Xarelto (Rivaroxaban) 10 Mg Tab 20 Mg PO DAILY 30 Days Levemir Inj (Insulin Detemir) 1,000 unit/ 10 ML Vial 15 Units SQ HS [address] (Duloxetine HCl) 60 Mg Capdr 60 Mg PO DAILY 30 Days Metoprolol Tartrate 25 Mg Tab 25 Mg PO Q12HR Trazodone (Trazodone HCl) 50 Mg Tab 50 Mg PO HS 30 Days Pantoprazole (Pantoprazole Sodium) 40 Mg Tab 40 Mg PO DAILY 30 Days Thera M Plus (Multivitamins/Minerals Therapeutic) 1 Tab 1 Tab PO DAILY 30 Days Aspirin Low Strength (Aspirin) 81 Mg Chew 81 Mg PO DAILY 30 Days Reported Losartan (Losartan Potassium) 50 Mg Tab 50 Mg PO DAILY Bumetanide 1 Mg Tab 1 Mg PO BID Potassium Chloride ER (Potassium Chloride) 20 Meq Tab 20 Meq PO DAILY Hydralazine HCl 25 Mg Tablet 25 Mg PO Q8HR Ergocalciferol 50,000 Unit Cap 50,000 Units PO Q7D ON MONDAYS Atorvastatin (Atorvastatin Calcium) 80 Mg Tab 80 Mg PO HS Diltiazem (Diltiazem HCl) 90 Mg Tab 90 Mg PO QID Before meals and at bedtime Novolog Inj (Insulin Aspart) 1,000 Unit/10 Ml Vial 2-10 Units SQ ACHS Sliding Scale Valtrex (Valacyclovir HCl) 1 Gm Tab 1 Gm PO HS Cyanocobalamin Inj (Cyanocobalamin) 1,000 Mcg/Ml Inj 1,000 Mcg IM EVERY 2 WEEKS Levothyroxine (Levothyroxine Sodium) 150 Mcg Tab 150 Mcg PO DAILY@0600 Fenofibrate 160 Mg Tab 160 Mg PO HS Review of Systems Except as stated in HPI: all other systems reviewed are Neg Physical Exam Narrative GENERAL: SKIN: Warm and dry. HEAD: Atraumatic. Normocephalic. EYES: Pupils equal and round. No scleral icterus. No injection or drainage. ENT: No nasal bleeding or discharge. Mucous membranes pink and moist. Tongue is midline. No uvula deviation. NECK: Trachea midline. No JVD. CARDIOVASCULAR: Regular rate and rhythm. No murmurs, S3, S4. RESPIRATORY: No accessory muscle use. Difficult to hear on the lower lung bautista.. Breath sounds equal bilaterally. GASTROINTESTINAL: Abdomen soft, non-tender, nondistended. Hepatic and splenic margins not palpable. MUSCULOSKELETAL: Extremities without clubbing, cyanosis, or edema. No obvious deformities. Full range of motion of the upper and lower extremities bilaterally. 2+ pulses bilaterally. Patient does have 1+ pitting edema on the lower extremities NEUROLOGICAL: Awake and alert. No obvious cranial nerve deficits. Motor grossly within normal limits. Five out of 5 muscle strength in the arms and legs. Normal speech. PSYCHIATRIC: Appropriate mood and affect; insight and judgment normal. Data Data Last Documented VS Vital Signs Date Time Temp Pulse Resp B/P (MAP) Pulse Ox O2 Delivery O2 Flow Rate FiO2 03/01/17 19:35 96 20 159/89 (112) 99 Nasal Cannula 3.00 03/01/17 17:46 98.4 Orders Orders Electrocardiogram (03/01/17 17:53) Complete Blood Count With Diff (03/01/17 17:53) Comprehensive Metabolic Panel (03/01/17 17:53) Ckmb (Isoenzyme) Profile (03/01/17 17:53) Troponin I (03/01/17 17:53) B-Type Natriuretic Peptide (03/01/17 17:53) Prothrombin Time / Inr (Pt) (03/01/17 17:53) Act Partial Throm Time (Ptt) (03/01/17 17:53) Blood Culture (03/01/17 17:53) Lipase (03/01/17 17:53) Urinalysis - C+S If Indicated (03/01/17 17:53) Magnesium (Mg) (03/01/17 17:53) Thyroid Stimulating Hormone (03/01/17 17:53) Chest, Single Ap (03/01/17 17:53) Iv Access Insert/Monitor (03/01/17 17:53) Ecg Monitoring (03/01/17:53) Oxygen Administration (03/01/17:53) Oximetry (03/01/17 17:53) Bumetanide Inj (Bumex Inj) (03/01/17 18:00) Blood Glucose (03/01/17 17:55) Diltiazem Inj (Cardizem Inj) (03/01/17 18:00) Us Leg Venous Doppler Bilat (03/01/17 ) Vital Signs (Adult) Q15MX4,Q4H (03/01/17 18:24) Production Cost Estimator / Telemetry WILFRED.Q8H (03/01/17 18:24) Cardiac Rhythm WILFRED.Q8H (03/01/17 18:24) Notify Dr: Other (03/01/17 18:24) Diltiazem Inj (Cardizem Inj) (03/01/17 18:30) Free Thyroxine (T4) (03/01/17 19:15) Levothyroxine (Synthroid) (03/01/17 19:30) Admit Order (Ed Use Only) (03/01/17 20:11) Labs Laboratory Tests Test 03/01/17 17:10 03/01/17 18:00 White Blood Count 6.3 TH/MM3 Red Blood Count 3.37 MIL/MM3 Hemoglobin 10.2 GM/DL Hematocrit 31.1 % Mean Corpuscular Volume 92.2 FL Mean Corpuscular Hemoglobin 30.4 PG Mean Corpuscular Hemoglobin Concent 32.9 % Red Cell Distribution Width 17.8 % Platelet Count 364 TH/MM3 Mean Platelet Volume 8.5 FL Neutrophils (%) (Auto) 87.2 % Lymphocytes (%) (Auto) 6.2 % Monocytes (%) (Auto) 5.3 % Eosinophils (%) (Auto) 0.2 % Basophils (%) (Auto) 1.1 % Neutrophils # (Auto) 5.5 TH/MM3 Lymphocytes # (Auto) 0.4 TH/MM3 Monocytes # (Auto) 0.3 TH/MM3 Eosinophils # (Auto) 0.0 TH/MM3 Basophils # (Auto) 0.1 TH/MM3 CBC Comment DIFF FINAL Differential Comment Prothrombin Time 12.0 SEC Prothromb Time International Ratio 1.1 RATIO Activated Partial Thromboplast Time 30.8 SEC Blood Urea Nitrogen 21 MG/DL Creatinine 0.80 MG/DL Random Glucose 160 MG/DL Total Protein 7.9 GM/DL Albumin 3.3 GM/DL Calcium Level 9.5 MG/DL Magnesium Level 1.8 MG/DL Alkaline Phosphatase 148 U/L Aspartate Amino Transf (AST/SGOT) 30 U/L Alanine Aminotransferase (ALT/SGPT) 23 U/L Total Bilirubin 1.3 MG/DL Sodium Level 136 MEQ/L Potassium Level 3.8 MEQ/L Chloride Level 95 MEQ/L Carbon Dioxide Level 32.6 MEQ/L Anion Gap 8 MEQ/L Estimat Glomerular Filtration Rate 70 ML/MIN Total Creatine Kinase 38 U/L Troponin I 0.19 NG/ML Lipase 56 U/L Thyroid Stimulating Hormone 3rd Gen 10.800 uIU/ML MDM Medical Decision Making Medical Screen Exam Complete: Yes Emergency Medical Condition: Yes Medical Record Reviewed: Yes Interpretation(s) CBC & BMP Diagram 03/01/17 18:00 Total Protein 7.9, Albumin 3.3 L, Calcium Level 9.5, Magnesium Level 1.8, Alkaline Phosphatase 148 H, Aspartate Amino Transf (AST/SGOT) 30, Alanine Aminotransferase (ALT/SGPT) 23, Total Bilirubin 1.3 H EKG shows atrial fibrillation but no sign of acute ischemia at this time. Read by me and attending. Troponin elevated at 0.19. TSH highly elevated at 10 Last Impressions Chest X-Ray 03/01/17 7509 Signed Impressions: Service Date/Time: Wednesday, March 01, 2017 18:02 - CONCLUSION: 1. Diffuse consolidation and bilateral pleural effusions likely representing diffuse processes such as edema/CHF versus diffuse infection. 2. Cardiomegaly. The patient is status post sternotomy. Mango Sheth MD Differential Diagnosis Atrial fibrillation versus noncompliance versus CHF versus pneumonia versus fluid overload versus pleural effusion versus a defibrillation RVR versus acute kidney injury versus ACS Narrative Course 76-year-old female that presents to the ED for evaluation of shortness of breath. Patient was properly examined and was found to have signs and symptoms concerning for CHF exacerbation and intrafibrillation. Patient is noncompliant secondary to monetary restraints. She has not taken any her medications for 3 days. She is also diabetic. She does appear to have some fluid overload on her legs. She does takes her although and she's been out of this medication as well. At this time labs and imaging will be ordered. Patient was given Cardizem as well as 1 mg of Bumex here were waiting for labs and imaging. Labs and imaging showed what appears to be acute CHF exacerbation with her fibrillation. At this time recommendation is for admission. Patient's heart rate continues to be high despite given her her Cardizem bolus. She was put on a drip. Case was discussed with my attending Dr Aldrich who agrees to admission. Case was discussed with the residents who agreed to admission. Procedures EKG Prior to Arrival: No Diagnosis Primary Impression: Acute on chronic diastolic CHF (congestive heart failure) Additional Impressions: A-fib Qualified Codes: I48.2 - Chronic atrial fibrillation Pleural effusion Admitting Information Admitting Physician Requests: Galo Corrales Mar 01, 2017 18:14
[2017-03-01] MEDS ORDERED: DILTIAZEM INJ 125 MG in SODIUM CHLORIDE 0.9% INJ 100 ML IV PRN (18:30)
[2017-03-01 18:32] LABS: AUTOMATED NEUTROPHIL # 5.5 TH/MM3 (1.8-7.7); BASOPHIL # 0.1 TH/MM3 (0-0.2); BASOPHIL % 1.1 % (0.0-2.0); EOSINOPHIL % 0.2 % (0.0-4.0); HEMATOCRIT 31.1 % (35.0-46.0); HEMO FLAGS DIFF FINAL; LYMPH % 6.2 % (9.0-44.0); LYMPHOCYTE # 0.4 TH/MM3 (1.0-4.8); MEAN CELL VOLUME 92.2 FL (80.0-100.0); MEAN CORPUSCULAR HEMOGLOBIN 30.4 PG (27.0-34.0); MEAN CORPUSCULAR HGB CONC 32.9 % (32.0-36.0); MONO % 5.3 % (0.0-8.0); NEUT % 87.2 % (16.0-70.0); PLATELET COUNT 364 TH/MM3 (150-450); RED BLOOD COUNT 3.37 MIL/MM3 (4.00-5.30); RED CELL DISTRIBUTION WIDTH 17.8 % (11.6-17.2); WHITE BLOOD COUNT 6.3 TH/MM3 (4.0-11.0)
[2017-03-01 18:39] LABS: ANION GAP 8 MEQ/L (5-15); AST (GOT) 30 U/L (15-37); BICARBONATE 32.6 MEQ/L (21.0-32.0); BLOOD UREA NITROGEN 21 MG/DL (7-18); CHLORIDE 95 MEQ/L (98-107); GLOMERULAR FILTRATION RATE 70 ML/MIN (>89); MAGNESIUM 1.8 MG/DL (1.5-2.5); POTASSIUM 3.8 MEQ/L (3.5-5.1); SODIUM (NA) 136 MEQ/L (136-145)
[2017-03-01 18:40] LABS: ALT (GPT) 23 U/L (10-53)
[2017-03-01 18:42] LABS: APTT (PATIENT) 30.8 SEC (24.3-30.1); INTERNATIONAL NORMALIZED RATIO 1.1 RATIO
--- NOTE | 2017-03-01 18:42 | RADRPT ---
EXAM DATE/TIME: 03/01/2017 18:02 [facility] COMPARISON: CHEST SINGLE AP, December 23, 2016, 4:20. INDICATIONS : Shortness of breath. MEDICAL HISTORY : Hypertension. Congestive heart failure. Cardiovascular disease SURGICAL HISTORY : CABG. ENCOUNTER: Initial ACUITY: 1 day PAIN SCORE: 0/10 LOCATION: Bilateral chest FINDINGS: The patient is status post sternotomy. The heart size is enlarged. There are bilateral pleural effusi ons. There is diffuse consolidation including diffuse increased interstitial markings and alveolar co nsolidation at the bases. CONCLUSION: 1. Diffuse consolidation and bilateral pleural effusions likely representing diffuse processes such a s edema/CHF versus diffuse infection. 2. Cardiomegaly. The patient is status post sternotomy. Mango Sheth MD on March 01, 2017 at 18:38 Board Certified Radiologist. This report was verified electronically.
[2017-03-01 18:50] LABS: ALKALINE PHOSPHATASE 148 U/L (45-117); TOTAL BILIRUBIN ADULT 1.3 MG/DL (0.2-1.0)
[2017-03-01] MEDS ORDERED: BUME1TAB PO (18:58)
[2017-03-01] MEDS ORDERED: POTA-163 PO (18:58)
[2017-03-01] MEDS ORDERED: LOSA50TA PO (18:59)
--- NOTE | 2017-03-01 19:10 | PD ---
Physical Exam Date Seen by Provider: Mar 01, 2017 Time Seen by Provider: 18:00 Narrative I, Dr. Ramirez, have reviewed the advance practice practitioner's documentation and am in agreement, met with the patient face to face, made the diagnosis, and the medical decision making was done by me. *My assessment and Findings: Patient seen and evaluated with PA, please see PA note for further details. She is here with worsening shortness of breath and dyspnea on exertion, leg swelling, and with history of pleural effusion and CHF , this is very concerning for an exacerbation. Patient apparently has not been compliant with meds. Bumex was initiated in the ER due to symptoms. Workup initiated. Planning to admit for further treatment. GENERAL: Well-nourished, well-developed elderly white female patient in moderate respiratory distress. Awake and oriented 3. SKIN: Focused skin assessment warm/dry. HEAD: Normocephalic. EYES: No scleral icterus. No injection or drainage. NECK: Supple, trachea midline. CARDIOVASCULAR: Fast and irregularly irregular. RESPIRATORY: Breath sounds equal bilaterally. Notable accessory muscle use, bibasilar Rales. GASTROINTESTINAL: Abdomen soft, non-tender, nondistended. MUSCULOSKELETAL: No cyanosis. Bilateral pitting edema the legs. BACK: Nontender without obvious deformity. No CVA tenderness. EKG shows A. fib with RVR at a rate of 110 bpm. No signs acute ST changes. Laboratory Tests Test 03/01/17 18:00 Red Blood Count 3.37 MIL/MM3 (4.00-5.30) Hemoglobin 10.2 GM/DL (11.6-15.3) Hematocrit 31.1 % (35.0-46.0) Red Cell Distribution Width 17.8 % (11.6-17.2) Neutrophils (%) (Auto) 87.2 % (16.0-70.0) Lymphocytes (%) (Auto) 6.2 % (9.0-44.0) Lymphocytes # (Auto) 0.4 TH/MM3 (1.0-4.8) Prothrombin Time 12.0 SEC (9.8-11.6) Activated Partial Thromboplast Time 30.8 SEC (24.3-30.1) Blood Urea Nitrogen 21 MG/DL (7-18) Random Glucose 160 MG/DL (74-106) Albumin 3.3 GM/DL (3.4-5.0) Chloride Level 95 MEQ/L (98-107) Carbon Dioxide Level 32.6 MEQ/L (21.0-32.0) Estimat Glomerular Filtration Rate 70 ML/MIN (>89) Lipase 56 U/L (73-393) Data Data Last Documented VS Vital Signs Date Time Temp Pulse Resp B/P (MAP) Pulse Ox O2 Delivery O2 Flow Rate FiO2 03/01/17 18:01 116 20 161/96 (117) 95 Nasal Cannula 3.00 03/01/17 17:46 98.4 Orders Orders Electrocardiogram (03/01/17 17:53) Complete Blood Count With Diff (03/01/17 17:53) Comprehensive Metabolic Panel (03/01/17:53) Ckmb (Isoenzyme) Profile (03/01/17:53) Troponin I (03/01/17 17:53) B-Type Natriuretic Peptide (03/01/17 17:53) Prothrombin Time / Inr (Pt) (03/01/17:53) Act Partial Throm Time (Ptt) (03/01/17 17:53) Blood Culture (03/01/17 17:53) Lipase (03/01/17 17:53) Urinalysis - C+S If Indicated (03/01/17 17:53) Magnesium (Mg) (03/01/17 17:53) Thyroid Stimulating Hormone (03/01/17 17:53) Chest, Single Ap (03/01/17 17:53) Iv Access Insert/Monitor (03/01/17 17:53) Ecg Monitoring (03/01/17 17:53) Oxygen Administration (03/01/17 17:53) Oximetry (03/01/17 17:53) Bumetanide Inj (Bumex Inj) (03/01/17 18:00) Blood Glucose (03/01/17 17:55) Diltiazem Inj (Cardizem Inj) (03/01/17 18:00) Us Leg Venous Doppler Bilat (03/01/17 ) Vital Signs (Adult) Q15MX4,Q4H (03/01/17 18:24) Adapted Physical Education Teacher / Telemetry WILFRED.Q8H (03/01/17 18:24) Cardiac Rhythm WILFRED.Q8H (03/01/17 18:24) Notify Dr: Other (03/01/17 18:24) Diltiazem Inj (Cardizem Inj) (03/01/17 18:30) Labs Laboratory Tests Test 03/01/17 18:00 White Blood Count 6.3 TH/MM3 Red Blood Count 3.37 MIL/MM3 Hemoglobin 10.2 GM/DL Hematocrit 31.1 % Mean Corpuscular Volume 92.2 FL Mean Corpuscular Hemoglobin 30.4 PG Mean Corpuscular Hemoglobin Concent 32.9 % Red Cell Distribution Width 17.8 % Platelet Count 364 TH/MM3 Mean Platelet Volume 8.5 FL Neutrophils (%) (Auto) 87.2 % Lymphocytes (%) (Auto) 6.2 % Monocytes (%) (Auto) 5.3 % Eosinophils (%) (Auto) 0.2 % Basophils (%) (Auto) 1.1 % Neutrophils # (Auto) 5.5 TH/MM3 Lymphocytes # (Auto) 0.4 TH/MM3 Monocytes # (Auto) 0.3 TH/MM3 Eosinophils # (Auto) 0.0 TH/MM3 Basophils # (Auto) 0.1 TH/MM3 CBC Comment DIFF FINAL Differential Comment Prothrombin Time 12.0 SEC Prothromb Time International Ratio 1.1 RATIO Activated Partial Thromboplast Time 30.8 SEC Blood Urea Nitrogen 21 MG/DL Creatinine 0.80 MG/DL Random Glucose 160 MG/DL Albumin 3.3 GM/DL Calcium Level 9.5 MG/DL Magnesium Level 1.8 MG/DL Aspartate Amino Transf (AST/SGOT) 30 U/L Alanine Aminotransferase (ALT/SGPT) 23 U/L Sodium Level 136 MEQ/L Potassium Level 3.8 MEQ/L Chloride Level 95 MEQ/L Carbon Dioxide Level 32.6 MEQ/L Anion Gap 8 MEQ/L Estimat Glomerular Filtration Rate 70 ML/MIN Lipase 56 U/L [facility] Medical Record Reviewed: Yes Supervised Visit with MIKE: Yes Diagnosis Primary Impression: Acute on chronic diastolic CHF (congestive heart failure) Additional Impression: Afib Admitting Information Admitting Physician Requests: Admit Jw Ramirez MD Mar 01, 2017 19:10
[2017-03-01 19:11] LABS: CREATINE KINASE 38 U/L (26-192)
[2017-03-01] MEDS ORDERED: LEVOTHYROXINE SODIUM 150 MCG TAB PO ONE (19:30)
[2017-03-01 19:35] VITALS: BP 159/89; PULSE 96; RESP 20; O2SAT 99
[2017-03-01 20:23] LABS: BACTERIA, URINE RARE /hpf; BLOOD, URINE NEG (NEG); GLUCOSE,URINE TRACE mg/dL (NEG); HYALINE CAST, URINE 13 /lpf (RARE); KETONE, URINE TRACE mg/dL (NEG); MUCUS URINE FEW /lpf (OCC); NITRITE,URINE NEG (NEG); SQUAMOUS EPITHELIAL CELL URINE 6 /hpf (0-5); URINE COLOR YELLOW (YELLW/STRAW)
[2017-03-01 20:26] LABS: COMMENT (UR) CULTURE INDICATED; CULTURE IF INDICATED CULTURE INDICATED
--- NOTE | 2017-03-01 20:29 | RADRPT ---
EXAM DATE/TIME: 03/01/2017 19:36 [facility] COMPARISON: US LEG BILATERAL VENOUS DOPPLER, March 10, 2016, 16:31. INDICATIONS : Bilateral leg swelling. MEDICAL HISTORY : Hypercholesterolemia. Gastroesophageal reflux disease. Chronic obstructive pulmonary disease. Hypothy roidism. Myocardial infarction. Congestive heart failure. Coronary artery disease. Atrial fibrill ation. Hernia, hiatal. Hypertension. Herpes. Arthritis. Diabetes. Depression. MRSA. SURGICAL HISTORY : Bilateral cataract surgery. Cardiac catheterization. Coronary stent. Back surgery. ENCOUNTER: Initial ACUITY: 3 days PAIN SCORE: 4/10 LOCATION: Bilateral legs. TECHNIQUE: Venous ultrasound of the left and right leg was performed from the inguinal ligament to the proximal calf. Real-time, color Doppler and spectral tracing, compression and augmentation techniques were us ed. FINDINGS: RIGHT LEG: There is normal compressibility of the deep venous system from the inguinal region to the proximal ca lf. No echogenic clot is seen in the lumen of the common femoral, femoral, popliteal, and posterior tibial veins. There is a normal response of the venous system to proximal and distal augmentation an d respiration. Superficial edema is seen. LEFT LEG: There is normal compressibility of the deep venous system from the inguinal region to the proximal ca lf. No echogenic clot is seen in the lumen of the common femoral, femoral, popliteal, and posterior tibial veins. There is a normal response of the venous system to proximal and distal augmentation an d respiration. Superficial edema is seen. There is a 6.0 x 2.1 x 1.0 cm Tello's cyst seen in the lef t popliteal fossa. CONCLUSION: No DVT. Mango Sheth MD on March 01, 2017 at 20:27 Board Certified Radiologist. This report was verified electronically.
[2017-03-01] MEDS ORDERED: ENOXAPARIN SODIUM 30 MG/0.3 ML SYRINGE SQ SCH ×2 (20:45→21:00)
[2017-03-01] MEDS ORDERED: traZODone HCL 50 MG TAB PO SCH (21:00)
[2017-03-01] MEDS ORDERED: DEXTROSE 50% IN WATER 50 ML VIAL(D50) IV PUSH PRN (21:15)
[2017-03-01] MEDS ORDERED: ASPIRIN 325 MG TAB PO SCH (21:15)
[2017-03-01] MEDS ORDERED: GLUCAGON 1 MG/ML VIAL OTHER PRN (21:15)
--- NOTE | 2017-03-01 21:59 | HHI.HP ---
HPI Service Family Medicine Primary Care Physician Remigio Lee, DO Admission Diagnosis acute CHF exacerbation, atrial fib in RVR, positive troponin, hypoth Diagnoses: International Travel<30 Days: No Contact w/Intl Traveler<30days: No Known Affected Area: No History of Present Illness 76 yr old F w/ PMHx of CHF (EF 55-60%), Afib, and T2DM, presents to the ED via ambulance for worsening SOB and generalized weakness. Reports that she has been non-compliant with her medications for the past week due to insurance/money issues. She ran out of some of her medications and states that she was waiting for her pension to come in to get refills. She started "feeling awful" these last couple of days. She couldn't walk very well and couldn't sleep due to SOB when lying down. She also complains of swelling in her lower extremities and having slight pain with urination. She feels that she has been urinating more frequently and having loose, non-bloody stools more than usual. 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 Mills) today and was having difficulty walking in the parking lot. She leaned against a pillar and started crying. She asked a nearby couple of bring her a wheelchair. As soon as the doctor saw her, he sent her straight to the hospital. She uses 2.5L O2 at home and has had about 10 thoracentesis performed in the past. Denies CP, N/V, fevers, chills, night sweats, and abdominal pain. She reports being greatly depressed for the past month. States that "everything has gone downhill after her triple bypass surgery last year." She has lost 90lbs in the past 8 months unintentionally. Appetite is normal, but endorses trouble sleeping. She lives by herself and does not have anyone to help her. She still has a lot of emotional stress about her son committing suicide 2 years ago. She has received therapy in the past and would like to talk to someone. She denies suicidal ideation and does not have thoughts of harming others. (Alessandra Bailey MD R1) Review of Systems Constitutional: COMPLAINS OF: Weight loss (90lbs in past 8 months), DENIES: Fever, Chills Endocrine: COMPLAINS OF: Polydipsia Eyes: DENIES: Vision loss Ears, nose, mouth, throat: DENIES: Odynophagia Respiratory: COMPLAINS OF: Shortness of breath Cardiovascular: COMPLAINS OF: Lower Extremity Edema, Orthopnea, DENIES: Chest pain Gastrointestinal: DENIES: Abdominal pain, Nausea, Vomiting Genitourinary: COMPLAINS OF: Urinary frequency, Dysuria Hematologic/lymphatic: DENIES: Lymphadenopathy Neurologic: DENIES: Headache Psychiatric: COMPLAINS OF: Depression, DENIES: Suicidal Ideation (Alessandra Bailey MD R1) Past Family Social History Past Medical History Hypothyroidism Coronary artery disease status post stent placement in 2007 and coronary artery bypass graft 01 March 2016 Congestive heart failure Hyperlipidemia Arthritis Diabetes mellitus Atrial fibrillation on xarelto Hypertension COPD on home oxygen GERD Echo 09/16/16 w/ EF 50-60% Past Surgical History CABG 3 in February 2016 Gastric bypass 2010 Back surgery Bilateral cataract surgery Coronary stent placed 2007 . (Alessandra Bailey MD R1) Allergies: Coded Allergies: erythromycin base (Unverified Allergy, Unknown, 01/11/17) furosemide (Unverified Allergy, Unknown, 01/11/17) penicillin G (Unverified Allergy, Unknown, 01/11/17) Family History Father 65 y/o myocardial infarction Mother 83 y/o from complications related to fall, TB, esophageal stricture Brother with bladder cancer, PE Son committed suicide 2 years ago Social History Lives by herself with 1 dog Tobacco: Quit smoking 30 years ago; smoked 3 ppd previously for 30 years Alcohol: Drinks occasionally Son Mo committed suicide 2 years ago (Alessandra Bailey MD R1) Physical Exam Vital Signs Vital Signs Date Time Temp Pulse Resp B/P (MAP) Pulse Ox O2 Delivery O2 Flow Rate FiO2 03/01/17 19:35 96 20 159/89 (112) 99 Nasal Cannula 3.00 03/01/17 18:01 116 20 161/96 (117) 95 Nasal Cannula 3.00 03/01/17 18:01 95 Nasal Cannula 3.00 03/01/17 18:01 95 Nasal Cannula 3.00 03/01/17 18:01 114 20 93 Nasal Cannula 3.00 03/01/17 17:46 98.4 109 20 165/86 (112) 93 Physical Exam GENERAL: elderly, pleasant lady sitting up in bed, in NAD SKIN: thin, ecchymoses on b/l upper extremities EYES: PERRLA NECK: JVD present CARDIOVASCULAR: Irregular rate and rhythm, no m/r/g RESPIRATORY: diminished breath sound b/l bases GASTROINTESTINAL: Abdomen soft, non-tender, nondistended. + BS. No hepato- splenomegaly, or palpable masses. Hepatojugular reflex present. MUSCULOSKELETAL: 2+ pitting edema b/l. No calf tenderness. NEUROLOGICAL: Awake, alert, and oriented x3. Laboratory Laboratory Tests Test 03/01/17 17:10 03/01/17 18:00 Urine Color YELLOW Urine Turbidity HAZY Urine pH 6.0 Urine Specific [place] 1.021 Urine Protein 100 Urine Glucose (UA) TRACE Urine Ketones TRACE Urine Occult Blood NEG Urine Nitrite NEG Urine Bilirubin NEG Urine Urobilinogen 4.0 Urine Leukocyte Esterase LARGE Urine RBC 4 Urine WBC 17 Urine Squamous Epithelial Cells 6 Urine Bacteria RARE Urine Hyaline Casts 13 Urine Mucus FEW Microscopic Urinalysis Comment CULTURE INDICATED White Blood Count 6.3 Red Blood Count 3.37 Hemoglobin 10.2 Hematocrit 31.1 Mean Corpuscular Volume 92.2 Mean Corpuscular Hemoglobin 30.4 Mean Corpuscular Hemoglobin Concent 32.9 Red Cell Distribution Width 17.8 Platelet Count 364 Mean Platelet Volume 8.5 Neutrophils (%) (Auto) 87.2 Lymphocytes (%) (Auto) 6.2 Monocytes (%) (Auto) 5.3 Eosinophils (%) (Auto) 0.2 Basophils (%) (Auto) 1.1 Neutrophils # (Auto) 5.5 Lymphocytes # (Auto) 0.4 Monocytes # (Auto) 0.3 Eosinophils # (Auto) 0.0 Basophils # (Auto) 0.1 CBC Comment DIFF FINAL Differential Comment Prothrombin Time 12.0 Prothromb Time International Ratio 1.1 Activated Partial Thromboplast Time 30.8 Blood Urea Nitrogen 21 Creatinine 0.80 Random Glucose 160 Total Protein 7.9 Albumin 3.3 Calcium Level 9.5 Magnesium Level 1.8 Alkaline Phosphatase 148 Aspartate Amino Transf (AST/SGOT) 30 Alanine Aminotransferase (ALT/SGPT) 23 Total Bilirubin 1.3 Sodium Level 136 Potassium Level 3.8 Chloride Level 95 Carbon Dioxide Level 32.6 Anion Gap 8 Estimat Glomerular Filtration Rate 70 Total Creatine Kinase 38 Troponin I 0.19 B-Type Natriuretic Peptide 519 Lipase 56 Free Thyroxine 1.07 Thyroid Stimulating Hormone 3rd Gen 10.800 Date/Time Source Procedure Growth Status 03/01/17 19:30 Blood Peripheral Aerobic Blood Culture Pending Received 03/01/17 19:30 Blood Peripheral Anaerobic Blood Culture Pending Received 03/01/17 17:10 Urine Random Urine Urine Culture Pending Received (Alessandra Bailey MD R1) Result Diagram: 03/01/17 1800 03/01/17 1800 Imaging Last Impressions Chest X-Ray 03/01/17 1753 Signed Impressions: Service Date/Time: Wednesday, March 01, 2017 18:02 - CONCLUSION: 1. Diffuse consolidation and bilateral pleural effusions likely representing diffuse processes such as edema/CHF versus diffuse infection. 2. Cardiomegaly. The patient is status post sternotomy. Mango Sheth MD (Alessandra Bailey MD R1) Caprini VTE Risk Assessment Caprini VTE Risk Assessment: Mod/High Risk (score >= 2) Caprini Risk Assessment Model Point Value = 1 Point Value = 2 Point Value = 3 Point Value = 5 Age 41-60 Minor surgery BMI > 25 kg/m2 Swollen legs Varicose veins or History of unexplained or recurrent spontaneous Oral contraceptives or hormone replacement Sepsis (< 1 month) Serious lung disease, including pneumonia (< 1 month) Abnormal pulmonary function Acute myocardial infarction Congestive heart failure (< 1 month) History of inflammatory bowel disease Medical patient at bed rest Age 61-74 Arthroscopic surgery Major open surgery (> 45 min) Laparoscopic surgery (> 45 min) Malignancy Confined to bed (> 72 hours) Immobilizing plaster cast Central venous access Age >= 75 History of VTE Family history of VTE Factor V Leiden Prothrombin [id number] Lupus anticoagulant Anticardiolipin antibodies Elevated serum homocysteine Heparin-induced thrombocytopenia Other congenital or acquired thrombophilia Stroke (< 1 month) Elective arthroplasty Hip, pelvis, or leg fracture Acute spinal cord injury (< 1 month) Prophylaxis Regimen Total Risk Factor Score Risk Level Prophylaxis Regimen 0-1 Low Early ambulation 2 Moderate Order ONE of the following: *Sequential Compression Device (SCD) *Heparin 5000 units SQ BID 3-4 Higher Order ONE of the following medications: *Heparin 5000 units SQ TID *Enoxaparin/Lovenox 40 mg SQ daily (WT < 150 kg, CrCl > 30 mL/min) *Enoxaparin/Lovenox 30 mg SQ daily (WT < 150 kg, CrCl > 10-29 mL/min) *Enoxaparin/Lovenox 30 mg SQ BID (WT < 150 kg, CrCl > 30 mL/min) AND/OR *Sequential Compression Device (SCD) 5 or more Highest Order ONE of the following medications: *Heparin 5000 units SQ TID (Preferred with Epidurals) *Enoxaparin/Lovenox 40 mg SQ daily (WT < 150 kg, CrCl > 30 mL/min) *Enoxaparin/Lovenox 30 mg SQ daily (WT < 150 kg, CrCl > 10-29 mL/min) *Enoxaparin/Lovenox 30 mg SQ BID (WT < 150 kg, CrCl > 30 mL/min) AND *Sequential Compression Device (SCD) (Alessandra Bailey MD R1) Assessment and Plan Assessment and Plan 76 yr old F admitted for acute on chronic diastolic CHF, ACS rule-out, Afib w/ RVR, and UTI Code Status DNR Discussed Condition With BLAIR Dominguez and Dr. Fletcher (Alessandra Bailey MD R1) Attending Attestation THIS CASE WAS DISCUSSED WITH THE RESIDENT PHYSICIANS. I HAVE REVIEWED THE RECORD AND AGREE WITH THE ABOVE NOTE AND PLAN OF CARE WAS DISCUSSED. I HAVE AUTHORIZED THE ORDER FOR ADMISSION TO AN IN-PATIENT STATUS. (Arya Perez MD) Problem List: (1) Acute on chronic diastolic CHF (congestive heart failure) ICD Codes: I50.33 - Acute on chronic diastolic (congestive) heart failure Status: Acute Plan: 1 week hx of SOB and non compliance with medications. About 10 thoracentesis performed in the past. * CXR demonstrated diffuse consolidation and bilateral pleural effusions * s/p 1mg Bumex in ED * Bumex 1mg IV BID * BNP elevated at 519 * 2L daily fluid restriction * Daily weights * Strict I& Os * Echo 09/16/16 w/ EF 50-60% (2) Afib ICD Codes: I48.91 - Unspecified atrial fibrillation Status: Acute Plan: Afib w/ RVR * s/p cardizem bolus x1 in ED, patient continued to have high heart rate thus put on a cardizem drip * EKG revealed afib but no sign of acute ischemia * Troponin elevated at 0.19 * Continue home xarelto * Aspirin 81mg PO daily * Trending troponin x2 along with EKG * lower extremity US- no DVT (3) UTI (urinary tract infection) ICD Codes: N39.0 - Urinary tract infection Status: Acute Plan: Patient complains of slight dysuria and urinary frequency. Hx of recurrent UTIs. * UA showed large leukocyte esterases and bacteria * Urine culture pending * Blood culture 2x pending * No leukocytosis on CBC * urine culture from 07/21/16, showed resistance to PCN and cephalosporins, sensitive to bactrim * Bactrim 1 tab PO q12hr (4) Depression ICD Codes: F32.9 - Major depressive disorder, single episode, unspecified Plan: -Psychiatry consulted -Continue home Duloxetine 60mg PO daily and Trazodone 50mg PO HS (5) Type 2 diabetes mellitus ICD Codes: E11.9 - Type 2 diabetes mellitus without complications Status: Chronic Plan: -Held home detemir and aspart -Low NovoLog sliding scale (6) COPD (chronic obstructive pulmonary disease) ICD Codes: J44.9 - Chronic obstructive pulmonary disease, unspecified Status: Chronic Plan: -On home 2.5 L O2, currently on 3L NC -Quit smoking 30 years ago (7) HTN (hypertension) ICD Codes: I10 - Essential (primary) hypertension Status: Chronic Plan: -Continue home meds * Hydralazine HCl 25mg PO q8hr * Losartan 50mg PO daily (8) GERD (gastroesophageal reflux disease) ICD Codes: K21.9 - Gastro-esophageal reflux disease without esophagitis Status: Chronic Plan: -Continue home Pantoprazole 40 mg PO daily (9) Hyperlipidemia ICD Codes: E78.5 - Hyperlipidemia, unspecified Status: Chronic Plan: -Continue home Fenofibrate 160mg PO HS and Atorvastatin 80mg PO HS (10) Hypothyroidism ICD Codes: E03.9 - Hypothyroidism, unspecified Status: Chronic Plan: -Continue home levothyroxine 150 mcg PO daily (11) Nutrition, metabolism, and development symptoms ICD Codes: R63.8 - Other symptoms and signs concerning food and fluid intake Status: Acute Plan: Fluids: none Diet: Heart Healthy, 2L daily fluid restriction, Other: Daily weights, Strict I& Os, vitals q4h DVTppx: SCDs b/l Consults: OT, PT, case management (Alessandra Bailey MD R1) Physician Certification 2 Midnight Certification Type: Admission for Inpatient Services Order for Inpatient Services The services are ordered in accordance with Medicare regulations or non- Medicare payer requirements, as applicable. In the case of services not specified as inpatient-only, they are appropriately provided as inpatient services in accordance with the 2-midnight benchmark. Estimated LOS (days): 2 2 days is the estimated time the patient will need to remain in the hospital, assuming treatment plan goals are met and no additional complications. Post-Hospital Plan: Home (Alessandra Bailey MD R1) Alessandra Bailey MD R1 Mar 01, 2017 21:59 Arya Perez MD Mar 02, 2017 12:43
[2017-03-01] MEDS ORDERED: traZODone HCL 50 MG TAB PO ONE (22:00)
[2017-03-01] MEDS ORDERED: RESP: ALBUTEROL 2.5 MG/IPRATROPIUM 0.5 MG NEB (PRN) NEB (22:00)
[2017-03-01] MEDS: POTASSIUM CHLORIDE 20 MEQ CONTROLLED RELEASE TAB PO SCH (22:27)
[2017-03-01] MEDS: SULFAMETHOXAZOLE-TRIMETHOPRIM DS 800-160 MG TAB PO SCH (22:28)
[2017-03-01 23:15] VITALS: BP 158/86; PULSE 133; RESP 21; TEMP 98; O2SAT 98
[2017-03-01] MEDS: ATORVASTATIN 80 MG TAB PO SCH (23:52)
[2017-03-01] MEDS: hydrALAZINE HCL 25 MG TAB PO SCH (23:52)
[2017-03-01] MEDS: FENOFIBRATE 145 MG TAB PO SCH (23:52)
[2017-03-02] VITALS (25 sets, daily range): BP systolic 130–154; BP diastolic 77–92; PULSE 78–120; RESP 15–20; TEMP 97.3–98.5; O2SAT 96–98
[2017-03-02] MEDS: hydrALAZINE HCL 25 MG TAB PO SCH ×3 (06:16→21:42)
[2017-03-02] MEDS: LEVOTHYROXINE SODIUM 150 MCG TAB PO SCH (06:16)
[2017-03-02 07:07] LABS: BICARBONATE 36.8 MEQ/L (21.0-32.0); POTASSIUM 3.9 MEQ/L (3.5-5.1)
[2017-03-02] MEDS ORDERED: DULoxetine HCl DR 60 MG CAP PO SCH (09:00)
[2017-03-02] MEDS: RIVAROXABAN 10 MG TAB PO SCH (09:00)
[2017-03-02] MEDS: MULTIVITAMINS/MINERALS THERAPEUTIC TAB PO SCH (09:32)
[2017-03-02] MEDS: PANTOPRAZOLE SOD 40 MG DELAYED RELEASE TAB PO SCH (09:32)
[2017-03-02] MEDS: ASPIRIN 81 MG CHEW TAB PO SCH (09:33)
[2017-03-02] MEDS: POTASSIUM CHLORIDE 20 MEQ CONTROLLED RELEASE TAB PO SCH ×2 (09:33→21:42)
[2017-03-02] MEDS: LOSARTAN 50 MG TAB PO SCH (09:33)
[2017-03-02] MEDS: SULFAMETHOXAZOLE-TRIMETHOPRIM DS 800-160 MG TAB PO SCH ×2 (09:33→21:42)
[2017-03-02] MEDS: INSULIN ASPART SUPPLEMENTAL SCALE SQ SCH ×4 (09:34→21:00)
[2017-03-02] MEDS: BUMETANIDE INJ 1 MG/4 ML VIAL IVP SCH ×2 (09:35→16:53)
--- NOTE | 2017-03-02 09:55 | EKG ---
Date Performed: 03/02/2017 Time Performed: 05:23:46 PTAGE: 76 years EKG: Atrial fibrillation with PVC(s) Right axis deviation Possible anterior infarct - age undete rmined Low QRS voltages in limb leads Abnormal ECG PREVIOUS TRACING : 03/01/2017 18.21 DOCTOR: Davon Sahu Interpretating Date/Time 03/02/2017 09:54:26
--- NOTE | 2017-03-02 10:23 | EKG ---
Date Performed: 03/01/2017 Time Performed: 18:21:44 PTAGE: 76 years EKG: ATRIAL FIBRILLATION WITH RAPID VENTRICULAR RESPONSE WITH ABERRANT CONDUCTION OR VENTRICULAR PREMATURE COMPLEXES POSSIBLE ANTERIOR MYOCARDIAL INFARCTION ABNORMAL ECG PREVIOUS TRACING : 11/22/2016 14.06 DOCTOR: Davon Sahu Interpretating Date/Time 03/02/2017 10:22:46
--- NOTE | 2017-03-02 12:43 | HHI.HP ---
[facility] Service Family Medicine Primary Care Physician Remigio Lee, DO Admission Diagnosis acute CHF exacerbation, atrial fib in RVR, positive troponin, hypoth Diagnoses: (1) Acute on chronic diastolic CHF (congestive heart failure) (2) Afib (3) UTI (urinary tract infection) (4) Depression (5) Type 2 diabetes mellitus (6) COPD (chronic obstructive pulmonary disease) (7) HTN (hypertension) (8) GERD (gastroesophageal reflux disease) (9) Hyperlipidemia (10) Hypothyroidism (11) Nutrition, metabolism, and development symptoms International Travel<30 Days: No Contact w/Intl Traveler<30days: No Known Affected Area: No History of Present Illness Patient continues to complain of shortness of breath and lower extremity edema, she states that these are not improved since admission to the hospital. She does endorse increased urinary output with the Bumex diuresis, however does not feel that it has improved her symptoms as of yet. She was able to tolerate breakfast without any issues and denies constipation. She denies any chest pain but does endorse palpitations, states that it feels as if she has a "liner installer" in her chest. She continues to be able to lie flat secondary to shortness of breath and states that she cannot even stand near the sink/mirror due to her shortness of breath. In summary this is a 76-year-old female who presents to the emergency department with progressive shortness of breath and generalized weakness. She has a history significant for atrial fibrillation and congestive heart failure, and states that she has been noncompliant with her medications for at least the last week due to not having them secondary to cost and insurance issues. She states that she has not taken any of her medications over the last week but her symptoms began prior to discontinuing her medications. 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 States that "everything has gone downhill after her triple bypass surgery last year." She has lost 90lbs in the past 8 months unintentionally. Appetite is normal, but endorses trouble sleeping. She lives by herself and does not have anyone to help her. She still has a lot of emotional stress about her son committing suicide 2 years ago. She has received therapy in the past and would like to talk to someone. She denies suicidal ideation and does not have thoughts of harming others. Past Family Social History Past Medical History Hypothyroidism Coronary artery disease status post stent placement in 2007 and coronary artery bypass graft 01 March 2016 Congestive heart failure Hyperlipidemia Arthritis Diabetes mellitus Atrial fibrillation on xarelto Hypertension COPD on home oxygen GERD Echo 09/16/16 w/ EF 50-60% Past Surgical History CABG 3 in February 2016 Gastric bypass 2010 Back surgery Bilateral cataract surgery Coronary stent placed 2007 . Allergies: Coded Allergies: erythromycin base (Unverified Allergy, Unknown, 01/11/17) furosemide (Unverified Allergy, Unknown, 01/11/17) penicillin G (Unverified Allergy, Unknown, 01/11/17) Family History Father 65 y/o myocardial infarction Mother 83 y/o from complications related to fall, TB, esophageal stricture Brother with bladder cancer, PE Son committed suicide 2 years ago Social History Lives by herself with 1 dog Tobacco: Quit smoking 30 years ago; smoked 3 ppd previously for 30 years Alcohol: Drinks occasionally Son Mo committed suicide 2 years ago Physical Exam Vital Signs Vital Signs Date Time Temp Pulse Resp B/P (MAP) Pulse Ox O2 Delivery O2 Flow Rate FiO2 03/02/17 12:13 99 03/02/17 11:50 96 Nasal Cannula 3.50 03/02/17 11:00 89 03/02/17 11:00 97.5 80 18 130/79 (96) 97 03/02/17 10:37 87 03/02/17 09:00 81 03/02/17 08:48 106 03/02/17 08:20 98.0 108 15 142/92 (109) 97 03/02/17 07:00 108 03/02/17 06:06 97 03/02/17 05:09 114 03/02/17 04:25 96 03/02/17 03:40 98.5 110 20 154/84 (107) 98 03/02/17 03:00 80 03/02/17 02:00 108 03/02/17 01:05 96 03/02/17 00:00 120 03/01/17 23:16 03/01/17 23:15 98.0 133 21 158/86 (110) 98 03/01/17 22:28 124 153/88 03/01/17 19:35 96 20 159/89 (112) 99 Nasal Cannula 3.00 03/01/17 18:01 116 20 161/96 (117) 95 Nasal Cannula 3.00 03/01/17 18:01 95 Nasal Cannula 3.00 03/01/17 18:01 95 Nasal Cannula 3.00 03/01/17 18:01 114 20 93 Nasal Cannula 3.00 03/01/17 17:46 98.4 109 20 165/86 (112) 93 Physical Exam GENERAL: Thin/frail elderly, pleasant lady sitting up in bed, in NAD SKIN: thin, ecchymoses on b/l upper extremities EYES: PERRLA NECK: JVD present CARDIOVASCULAR: Irregular rate and rhythm, distant heart sounds with 1-2/6 systolic murmur RESPIRATORY: diminished breath sound b/l bases with crackles in the bilateral bases GASTROINTESTINAL: Abdomen soft, non-tender, nondistended. + BS. No hepato- splenomegaly, or palpable masses. MUSCULOSKELETAL: 2+ pitting edema b/l to proximal tibia. No calf tenderness. NEUROLOGICAL: Awake, alert, and oriented x3. Laboratory Laboratory Tests Test 03/01/17 17:10 03/01/17 18:00 03/02/17 00:30 03/02/17 05:20 Urine Color YELLOW Urine Turbidity HAZY Urine pH 6.0 Urine Specific Odell 1.021 Urine Protein 100 Urine Glucose (UA) TRACE Urine Ketones TRACE Urine Occult Blood NEG Urine Nitrite NEG Urine Bilirubin NEG Urine Urobilinogen 4.0 Urine Leukocyte Esterase LARGE Urine RBC 4 Urine WBC 17 Urine Squamous Epithelial Cells 6 Urine Bacteria RARE Urine Hyaline Casts 13 Urine Mucus FEW Microscopic Urinalysis Comment CULTURE INDICATED White Blood Count 6.3 Red Blood Count 3.37 Hemoglobin 10.2 Hematocrit 31.1 Mean Corpuscular Volume 92.2 Mean Corpuscular Hemoglobin 30.4 Mean Corpuscular Hemoglobin Concent 32.9 Red Cell Distribution Width 17.8 Platelet Count 364 Mean Platelet Volume 8.5 Neutrophils (%) (Auto) 87.2 Lymphocytes (%) (Auto) 6.2 Monocytes (%) (Auto) 5.3 Eosinophils (%) (Auto) 0.2 Basophils (%) (Auto) 1.1 Neutrophils # (Auto) 5.5 Lymphocytes # (Auto) 0.4 Monocytes # (Auto) 0.3 Eosinophils # (Auto) 0.0 Basophils # (Auto) 0.1 CBC Comment DIFF FINAL Differential Comment Prothrombin Time 12.0 Prothromb Time International Ratio 1.1 Activated Partial Thromboplast Time 30.8 Blood Urea Nitrogen 21 21 Creatinine 0.80 0.86 Random Glucose 160 160 Total Protein 7.9 Albumin 3.3 Calcium Level 9.5 9.5 Magnesium Level 1.8 Alkaline Phosphatase 148 Aspartate Amino Transf (AST/SGOT) 30 Alanine Aminotransferase (ALT/SGPT) 23 Total Bilirubin 1.3 Sodium Level 136 137 Potassium Level 3.8 3.9 Chloride Level 95 95 Carbon Dioxide Level 32.6 36.8 Anion Gap 8 5 Estimat Glomerular Filtration Rate 70 65 Total Creatine Kinase 38 Troponin I 0.19 0.10 0.18 B-Type Natriuretic Peptide 519 Lipase 56 Free Thyroxine 1.07 Thyroid Stimulating Hormone 3rd Gen 10.800 Date/Time Source Procedure Growth Status 03/01/17 19:30 Blood Peripheral Aerobic Blood Culture - Preliminary NO GROWTH IN 1 DAY Resulted 03/01/17 19:30 Blood Peripheral Anaerobic Blood Culture - Preliminary NO GROWTH IN 1 DAY Resulted 03/01/17 17:10 Urine Random Urine Urine Culture Pending Received Result Diagram: 03/01/17 1800 03/02/17 0520 Imaging Last 48 hours Impressions Chest X-Ray 03/01/17 1753 Signed Impressions: Service Date/Time: Wednesday, March 01, 2017 18:02 - CONCLUSION: 1. Diffuse consolidation and bilateral pleural effusions likely representing diffuse processes such as edema/CHF versus diffuse infection. 2. Cardiomegaly. The patient is status post sternotomy. Mango Sheth MD Lower Extremity Ultrasound 03/01/17 0000 Signed Impressions: Service Date/Time: Wednesday, March 01, 2017 19:36 - CONCLUSION: No DVT. Mango Sheth MD Caprini VTE Risk Assessment Caprini VTE Risk Assessment: Mod/High Risk (score >= 2) Caprini Risk Assessment Model Point Value = 1 Point Value = 2 Point Value = 3 Point Value = 5 Age 41-60 Minor surgery BMI > 25 kg/m2 Swollen legs Varicose veins or History of unexplained or recurrent spontaneous Oral contraceptives or hormone replacement Sepsis (< 1 month) Serious lung disease, including pneumonia (< 1 month) Abnormal pulmonary function Acute myocardial infarction Congestive heart failure (< 1 month) History of inflammatory bowel disease Medical patient at bed rest Age 61-74 Arthroscopic surgery Major open surgery (> 45 min) Laparoscopic surgery (> 45 min) Malignancy Confined to bed (> 72 hours) Immobilizing plaster cast Central venous access Age >= 75 History of VTE Family history of VTE Factor V Leiden Prothrombin [id number] Lupus anticoagulant Anticardiolipin antibodies Elevated serum homocysteine Heparin-induced thrombocytopenia Other congenital or acquired thrombophilia Stroke (< 1 month) Elective arthroplasty Hip, pelvis, or leg fracture Acute spinal cord injury (< 1 month) Prophylaxis Regimen Total Risk Factor Score Risk Level Prophylaxis Regimen 0-1 Low Early ambulation 2 Moderate Order ONE of the following: *Sequential Compression Device (SCD) *Heparin 5000 units SQ BID 3-4 Higher Order ONE of the following medications: *Heparin 5000 units SQ TID *Enoxaparin/Lovenox 40 mg SQ daily (WT < 150 kg, CrCl > 30 mL/min) *Enoxaparin/Lovenox 30 mg SQ daily (WT < 150 kg, CrCl > 10-29 mL/min) *Enoxaparin/Lovenox 30 mg SQ BID (WT < 150 kg, CrCl > 30 mL/min) AND/OR *Sequential Compression Device (SCD) 5 or more Highest Order ONE of the following medications: *Heparin 5000 units SQ TID (Preferred with Epidurals) *Enoxaparin/Lovenox 40 mg SQ daily (WT < 150 kg, CrCl > 30 mL/min) *Enoxaparin/Lovenox 30 mg SQ daily (WT < 150 kg, CrCl > 10-29 mL/min) *Enoxaparin/Lovenox 30 mg SQ BID (WT < 150 kg, CrCl > 30 mL/min) AND *Sequential Compression Device (SCD) Assessment and Plan Assessment and Plan 76 yr old F admitted for acute on chronic diastolic CHF, ACS rule-out, Afib w/ RVR, and UTI Problem List: (1) Acute on chronic diastolic CHF (congestive heart failure) ICD Codes: I50.33 - Acute on chronic diastolic (congestive) heart failure Status: Acute Plan: Decompensated congestive heart failure, acute on chronic Continue diuresis with 1 mg Bumex IV twice a day - 1.5 L fluid restriction daily - Strict I's and O's - Daily weights - Heart healthy/low-salt diet Supplemental oxygen as needed Continue losartan 50 mg daily Started on diltiazem drip due to atrial fibrillation with tachycardia Review of echo from 08/2016 shows an ejection fraction of 50-60% PT/OT to evaluate patient for any discharge needs activities manager consult to assist with patient medications on discharge (2) Afib ICD Codes: I48.91 - Unspecified atrial fibrillation Status: Acute Plan: Afib w/ RVR - heart rate in the 100-120 range Cardizem drip titrate per protocol - Did receive Cardizem bolus 1 in the emergency department with no significant benefit Troponins 3 - 0.19 - 0.10 - 0.18 EKG revealed afib but no sign of acute ischemia - Trending of EKG showed no significant change Continue home xarelto Aspirin 81mg PO daily TSH is elevated at 10.8, however free T4 is normal at 1.07 (3) UTI (urinary tract infection) ICD Codes: N39.0 - Urinary tract infection Status: Acute Plan: Patient complains of slight dysuria and urinary frequency. Hx of recurrent UTIs. Started on Bactrim DS 1 tablet by mouth twice a day UA showed large leukocyte esterases and bacteria - Urine culture pending - Blood culture 2x pending Urine culture from 07/21/16, showed resistance to PCN and cephalosporins, sensitive to bactrim (4) Depression ICD Codes: F32.9 - Major depressive disorder, single episode, unspecified Plan: -Psychiatry consulted -Continue home Duloxetine 60mg PO daily and Trazodone 50mg PO HS (5) Type 2 diabetes mellitus ICD Codes: E11.9 - Type 2 diabetes mellitus without complications Status: Chronic Plan: -Held home detemir and aspart -Low NovoLog sliding scale (6) COPD (chronic obstructive pulmonary disease) ICD Codes: J44.9 - Chronic obstructive pulmonary disease, unspecified Status: Chronic Plan: -On home 2.5 L O2, currently on 3L NC -Quit smoking 30 years ago (7) HTN (hypertension) ICD Codes: I10 - Essential (primary) hypertension Status: Chronic Plan: -Continue home meds * Hydralazine HCl 25mg PO q8hr * Losartan 50mg PO daily (8) GERD (gastroesophageal reflux disease) ICD Codes: K21.9 - Gastro-esophageal reflux disease without esophagitis Status: Chronic Plan: -Continue home Pantoprazole 40 mg PO daily (9) Hyperlipidemia ICD Codes: E78.5 - Hyperlipidemia, unspecified Status: Chronic Plan: -Continue home Fenofibrate 160mg PO HS and Atorvastatin 80mg PO HS (10) Hypothyroidism ICD Codes: E03.9 - Hypothyroidism, unspecified Status: Chronic Plan: -Continue home levothyroxine 150 mcg PO daily (11) Nutrition, metabolism, and development symptoms ICD Codes: R63.8 - Other symptoms and signs concerning food and fluid intake Status: Acute Plan: Fluids: none Diet: Heart Healthy, 1.5L daily fluid restriction, Other: Daily weights, Strict I& Os, vitals q4h DVTppx: SCDs b/l Consults: OT, PT, case management Physician Certification 2 Midnight Certification Type: Admission for Inpatient Services Order for Inpatient Services The services are ordered in accordance with Medicare regulations or non- Medicare payer requirements, as applicable. In the case of services not specified as inpatient-only, they are appropriately provided as inpatient services in accordance with the 2-midnight benchmark. Estimated LOS (days): 2 2 days is the estimated time the patient will need to remain in the hospital, assuming treatment plan goals are met and no additional complications. Post-Hospital Plan: Not yet determined Arya Perez MD Mar 02, 2017 12:43
--- NOTE | 2017-03-02 15:41 | PD.PSY.CON ---
Provisional Diagnosis Admission Date Mar 01, 2017 at 20:14 Grady I. Adjustment disorder with depression vs major depressive disorder, recurrent, moderate Grady II. deferred History of Present Illness Service Psychiatry Consult Requested By Dr. Perez Reason for Consult Depressive symptoms Primary Care Physician DO LAYTON Garcia The patient is a 76-year-old woman, domiciled alone in [place], , supported by patient benefits, with psychiatric history of depression , anxiety, no previous suicidal attempts, no previous psychiatric hospitalizations, she has history of psychotherapy for 20 years, she is on Cymbalta 60 mg, trazodone 50 mg prescribed by PCP, patient has a son who committed suicide, medical history of atrophy relations, congestive heart failure, who was admitted via emergency department due to progressive shortness of breath and generalized weakness. She initially stated that she has been noncompliant with her medications for at least the last week due to not having them secondary to cost and insurance issues. She states that she has not taken any of her medications over the last week but her symptoms began prior to discontinuing her medications. 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 States that "everything has gone downhill after her triple bypass surgery last year." She has lost 90lbs in the past 8 months unintentionally. Consulted to psychiatry for depressive symptoms. On somatic evaluation today patient is calm, cooperative and very pleasant. He explains that in the last months, due to her multiple medical problems, her emotions and her feeling has been mostly in the depressed side. Patient says that every time that she feels vulnerable and fragile, obviously the suicide of her son comes back to her memories, and she feels guilty, anhedonic, with frequent crying spells and very lonely. A she said that she has a very poor social and family support, her long time she has no contact with her brother, in the last months they have been talking by phone more often. But other than that, she doesn't have anybody else. Patient has been stable of her depression in Cymbalta 60 mg Lexapro 50 mg "I have been happy with the medications". Patient also states that she was in psychotherapy twice a month for over 25 years, but her therapies recently retired due to dementia. Patient reports that she has a strong coping skills, she has been dealing in a healthy way with the suicide of her only son. She says that inside her mind "I feel very laith for having him for 46 years". Patient reports that another reason to be depressed in the hospital "is because the food is terrible, and some nurses have an attitude". During the evaluation, she is talkative, psychologically minded, and shows at moments very good sense of humor and elevated abstract thoughts. She is fully oriented 3, without any attention deficit, no fluctuation of consciousness, and no gross cognitive impairment present. She denies suicidal and homicidal ideation, she denies visual and auditory hallucinations. Patient denies the use of alcohol and illicit drugs. Review of Systems Constitutional: DENIES: Diaphoretic episodes, Fatigue, Fever, Weight gain, Weight loss, Chills, Dizziness, Change in appetite, Night Sweats Endocrine: DENIES: Abnorml menstrual pattern, Heat/cold intolerance, Polydipsia , Polyuria, Polyphagia Eyes: DENIES: Blurred vision, Diplopia, Eye inflammation, Eye pain, Vision loss , Photosensitivity, Double Vision Ears, nose, mouth, throat: DENIES: Tinnitus, Hearing loss, Vertigo, Nasal discharge, Oral lesions, Throat pain, Hoarseness, Ear Pain, Running Nose, Epistaxis, Sinus Pain, Toothache, Odynophagia Respiratory: DENIES: Apneas, Cough, Snoring, Wheezing, Hemoptysis, Sputum production, Shortness of breath Cardiovascular: DENIES: Chest pain, Palpitations, Syncope, Dyspnea on Exertion , PND, Lower Extremity Edema, Orthopnea, Claudication Gastrointestinal: DENIES: Abdominal pain, Black stools, Bloody stools, Constipation, Diarrhea, Nausea, Vomiting, Difficulty Swallowing, Anorexia Musculoskeletal: DENIES: Joint pain, Muscle aches, Stiffness, Joint Swelling, Back pain, Neck pain Integumentary: DENIES: Abnormal pigmentation, Pruritus, Rash, Nail changes, Breast masses, Breast skin changes, Nipple discharge Hematologic/lymphatic: DENIES: Bruising, Lymphadenopathy Immunologic/allergic: DENIES: Eczema, Urticaria Neurologic: DENIES: Abnormal gait, Headache, Localized weakness, Paresthesias, Seizures, Speech Problems, Tremor, Poor Balance Psychiatric: COMPLAINS OF: Mood changes, Depression, DENIES: Anxiety, Confusion , Hallucinations, Agitation, Suicidal Ideation, Homicidal Ideation, Delusions Past Family Social History Coded Allergies: erythromycin base (Unverified Allergy, Unknown, 01/11/17) furosemide (Unverified Allergy, Unknown, 01/11/17) penicillin G (Unverified Allergy, Unknown, 01/11/17) Active Scripts Rivaroxaban (Xarelto) 10 Mg Tab, 20 MG PO DAILY for AFIB for 30 Days, TAB 10 Refills Prov:Kortney Cee MD 11/29/16 Insulin Detemir Inj (Levemir Inj) 1,000 unit/ 10 ML Vial, 15 UNITS SQ HS for DM for 30 Days, INJECTION Prov:Kortney Cee MD 11/29/[address] (Duloxetine DR) 60 Mg Capdr, 60 MG PO DAILY for Depression Control for 30 Days, CAP Prov:Kortney Cee MD 11/29/16 Metoprolol Tartrate (Metoprolol Tartrate) 25 Mg Tab, 25 MG PO Q12HR for htn, # 60 TAB Prov:Eva Menjivar MD 09/22/16 Trazodone (Trazodone) 50 Mg Tab, 50 MG PO HS for 30 Days, TAB Prov:Nadir Tomlinson MD 04/06/16 Pantoprazole (Pantoprazole) 40 Mg Tab, 40 MG PO DAILY for 30 Days, TAB Prov:Nadir Tomlinson MD 04/06/16 Multiple Vitamins W/ Minerals (Thera M Plus) 1 Tab, 1 TAB PO DAILY for 30 Days, TAB Prov:Nadri Tomlinson MD 04/06/16 Aspirin (Aspirin Low Strength) 81 Mg Chew, 81 MG PO DAILY for 30 Days, EA Prov:Nadir Tomlinson MD 04/06/16 Reported Medications Losartan (Losartan) 50 Mg Tab, 50 MG PO DAILY for Blood Pressure Management, # 30 TAB 0 Refills 03/01/17 Bumetanide (Bumetanide) 1 Mg Tab, 1 MG PO BID, #60 TAB 0 Refills 03/01/17 Potassium Chloride ER (Potassium Chloride ER) 20 Meq Tab, 20 MEQ PO DAILY for Electrolyte Replacement, #30 TAB 0 Refills 03/01/17 Hydralazine HCl (Hydralazine HCl) 25 Mg Tablet, 25 MG PO Q8HR for Blood Pressure Management, #90 TAB 0 Refills 11/22/16 Ergocalciferol (Ergocalciferol) 50,000 Unit Cap, 61280 UNITS PO Q7D ON MONDAYS for Nutritional Supplement, #30 CAP 0 Refills 11/22/16 Atorvastatin (Atorvastatin) 80 Mg Tab, 80 MG PO HS for Cholesterol Management, # 30 TAB 0 Refills 11/22/16 Diltiazem (Diltiazem) 90 Mg Tab, 90 MG PO QID for Angina, #120 TAB 0 Refills Before meals and at bedtime 06/11/16 Insulin Aspart Inj (Novolog Inj) 1,000 Unit/10 Ml Vial, 2-10 UNITS SQ ACHS for Blood Sugar Management, #10 ML 0 Refills Sliding Scale 05/19/16 Valacyclovir (Valtrex) 1 Gm Tab, 1 GM PO HS for Mgmt Viral Infection, #30 TAB 0 Refills 05/19/16 Cyanocobalamin Inj (Cyanocobalamin Inj) 1,000 Mcg/Ml Inj, 1000 MCG IM EVERY 2 WEEKS, #1 VIAL 0 Refills 05/19/16 Levothyroxine (Levothyroxine) 150 Mcg Tab, 150 MCG PO DAILY@0600 for Thyroid, # 30 TAB 0 Refills 03/28/16 Fenofibrate (Fenofibrate) 160 Mg Tab, 160 MG PO HS, #30 TAB 0 Refills 03/28/16 Discontinued Reported Medications Potassium Chloride ER (Klor-Con 10) 10 Meq Tab, 10 MEQ PO HS for Electrolyte Replacement, #60 TAB 0 Refills 11/22/16 Discontinued Scripts Hydrocodone-Acetaminophen (Lortab) 7.5-325 Mg Tab, 1 TAB PO BID for prior to draining cath, #20 TAB 0 Refills Prov:Kortney Cee MD 11/29/16 Current Medications Medications (Trade) Dose Ordered Sig/Seema Route Start Time Stop Time Status Last Admin Diltiazem HCl 125 mg/Sodium Chloride 125 ml @ 5 mls/hr TITRATE PRN IV 03/01/17 18:30 03/01/17 22:28 (Bumex Inj) 1 mg BID@18 IVP 03/02/17 09:00 03/02/17 09:35 (KCl) 20 meq BID PO 03/01/17 21:00 03/02/17 09:33 (Aspirin) 325 mg NOW PO 03/01/17 21:15 03/02/17 21:14 (D50w (Vial) Inj) 50 ml UNSCH PRN IV PUSH 03/01/17 21:15 (Glucagon Inj) 1 mg UNSCH PRN OTHER 03/01/17 21:15 (NovoLOG SUPPLEMENTAL SCALE) 1 ACHS SLIDING SCALE SQ 03/02/17 08:00 03/02/17 13:10 (Aspirin Chew) 81 mg DAILY PO 03/02/17 09:00 03/02/17 09:33 (Lipitor) 80 mg HS PO 03/01/17 21:00 03/01/17 23:52 (Cymbalta Dr) 60 mg DAILY PO 03/02/17 09:00 03/02/17 09:33 (Apresoline) 25 mg Q8HR PO 03/01/17 22:00 03/02/17 13:10 (Synthroid) 150 mcg DAILY@0600 PO 03/02/17 06:00 03/02/17 06:16 (Cozaar) 50 mg DAILY PO 03/02/17 09:00 03/02/17 09:33 (Theragran M Tab) 1 tab DAILY PO 03/02/17 09:00 03/02/17 09:32 (Protonix) 40 mg DAILY PO 03/02/17 09:00 03/02/17 09:32 (Xarelto) 20 mg DAILY PO 03/02/17 09:00 (Desyrel) 50 mg HS PO 03/01/17 21:00 (Tricor) 145 mg HS PO 03/01/17 21:30 03/01/17 23:52 (Bactrim Ds 800-160 Mg) 1 tab Q12HR PO 03/01/17 21:30 03/02/17 09:33 (Duoneb Neb) 1 ampule Q4HR NEB PRN NEB 03/01/17 22:00 (Pneumovax-23 Inj) 25 mcg ONCE ONCE IM 03/03/17 10:00 03/03/17 10:01 (Flu (Quadrivalent) Vaccine Inj) 0.5 ml ONCE ONCE IM 03/03/17 10:00 03/03/17 10:01 Family Psych History She has a son who committed suicide Social History Patient was born and raised in [place], she has been living in [place] for 3 years, she lives in [place] alone, she is , supported by half-way benefits, she has a master degree. Patient's Strengths (min. 2) Compliant with psychotropics, history of psychotherapy Physical Exam No tremors, no EPS, no psychomotor agitation or retardation, no withdrawal symptoms, patient walks with a walker, no parkinsonism Vital Signs Vital Signs Date Time Temp Pulse Resp B/P (MAP) Pulse Ox O2 Delivery O2 Flow Rate FiO2 03/02/17 15:00 97.3 99 16 142/77 (98) 98 03/02/17 11:50 Nasal Cannula 3.50 I/O 03/02/17 03/02/17 03/03/17 08:00 16:00 00:00 Intake Total 308 ml Balance 308 ml Lab Results Test 03/01/17 17:10 03/01/17 18:00 03/02/17 00:30 03/02/17 05:20 Urine Color YELLOW Urine Turbidity HAZY Urine pH 6.0 Urine Specific Rufe 1.021 Urine Protein 100 mg/dL Urine Glucose (UA) TRACE mg/dL Urine Ketones TRACE mg/dL Urine Occult Blood NEG Urine Nitrite NEG Urine Bilirubin NEG Urine Urobilinogen 4.0 MG/DL Urine Leukocyte Esterase LARGE Urine RBC 4 /hpf Urine WBC 17 /hpf Urine Squamous Epithelial Cells 6 /hpf Urine Bacteria RARE /hpf Urine Hyaline Casts 13 /lpf Urine Mucus FEW /lpf Microscopic Urinalysis Comment CULTURE INDICATED White Blood Count 6.3 TH/MM3 Red Blood Count 3.37 MIL/MM3 Hemoglobin 10.2 GM/DL Hematocrit 31.1 % Mean Corpuscular Volume 92.2 FL Mean Corpuscular Hemoglobin 30.4 PG Mean Corpuscular Hemoglobin Concent 32.9 % Red Cell Distribution Width 17.8 % Platelet Count 364 TH/MM3 Mean Platelet Volume 8.5 FL Neutrophils (%) (Auto) 87.2 % Lymphocytes (%) (Auto) 6.2 % Monocytes (%) (Auto) 5.3 % Eosinophils (%) (Auto) 0.2 % Basophils (%) (Auto) 1.1 % Neutrophils # (Auto) 5.5 TH/MM3 Lymphocytes # (Auto) 0.4 TH/MM3 Monocytes # (Auto) 0.3 TH/MM3 Eosinophils # (Auto) 0.0 TH/MM3 Basophils # (Auto) 0.1 TH/MM3 CBC Comment DIFF FINAL Differential Comment Prothrombin Time 12.0 SEC Prothromb Time International Ratio 1.1 RATIO Activated Partial Thromboplast Time 30.8 SEC Blood Urea Nitrogen 21 MG/DL 21 MG/DL Creatinine 0.80 MG/DL 0.86 MG/DL Random Glucose 160 MG/DL 160 MG/DL Total Protein 7.9 GM/DL Albumin 3.3 GM/DL Calcium Level 9.5 MG/DL 9.5 MG/DL Magnesium Level 1.8 MG/DL Alkaline Phosphatase 148 U/L Aspartate Amino Transf (AST/SGOT) 30 U/L Alanine Aminotransferase (ALT/SGPT) 23 U/L Total Bilirubin 1.3 MG/DL Sodium Level 136 MEQ/L 137 MEQ/L Potassium Level 3.8 MEQ/L 3.9 MEQ/L Chloride Level 95 MEQ/L 95 MEQ/L Carbon Dioxide Level 32.6 MEQ/L 36.8 MEQ/L Anion Gap 8 MEQ/L 5 MEQ/L Estimat Glomerular Filtration Rate 70 ML/MIN 65 ML/MIN Total Creatine Kinase 38 U/L Troponin I 0.19 NG/ML 0.10 NG/ML 0.18 NG/ML B-Type Natriuretic Peptide 519 PG/ML Lipase 56 U/L Free Thyroxine 1.07 NG/DL Thyroid Stimulating Hormone 3rd Gen 10.800 uIU/ML Date/Time Source Procedure Growth Status 03/01/17 19:30 Blood Peripheral Aerobic Blood Culture - Preliminary NO GROWTH IN 1 DAY Resulted 03/01/17 19:30 Blood Peripheral Anaerobic Blood Culture - Preliminary NO GROWTH IN 1 DAY Resulted 03/01/17 17:10 Urine Random Urine Urine Culture - Final 50-100,000 CFU/ML MIXED MANGO... Complete Mental Status Examination Consciousness: Alert Appearance: Appropriate Speech: Unremarkable Orientation: x3 Memory: Unremarkable Thought Content: Linear, Logical Thought Associations: Intact Language: Other (no abnormalities) Fund of Knowledge: Above average Hallucination Type: None Attention and Concentration: Good Suicidal Ideation: No Previous Suicide Attempts: No Homicidal Ideation: No Previous Homicide Attempts: No Insight: Adequate Judgment: Adequate Affect: Good Mood: Appropriate Motor Activity: Abnormal gait-specify Assessment & Plan Problem List: (1) Adjustment disorder with mixed anxiety and depressed mood ICD Codes: F43.23 - Adjustment disorder with mixed anxiety and depressed mood Assessment & Plan: On psychiatric evaluation today the patient presents with mild to moderate symptomatology of depression consisting on going sadness, decreased functionality, loneliness, lack of motivation, decreased concentration and energy, but she denies suicidal and homicidal ideation, she denies visual and auditory hallucinations. Patient reports imminent acute stressors as a source of depression such as frequent hospitalizations, deterioration of medical conditions, sense of rejection from nurses and medical staff. She also has chronic stressors, such as that suicide by hanging of her only son 3 years ago, poor social and family support. She denies suicidal and homicidal ideation, she denies visual and auditory hallucinations. Patient also has identifiable protective factors, such as prolonged process of psychotherapy, healthy coping skills, psychologically minded, good response to psychotropics. Patient was receptive to supportive psychotherapy, motivation, hope and psychoeducation. Patient also reports quitting sleeping at night. I recommend to increase Cymbalta to 90 mg to help with the depression. I also recommend to switch trazodone 50 mg to Remeron 15 at bedtime to help with sleep and depression, Since Remeron has less cardiac side effect. Patient does not meet criteria for psychiatric admission. We will follow-up. Assessment & Plan Estimated LOS: Greg Mercedes MD Mar 02, 2017 15:41
[2017-03-02] MEDS: ALPRAZolam 0.25 MG TAB PO PRN (16:54)
[2017-03-02] MEDS: ATORVASTATIN 80 MG TAB PO SCH (21:42)
[2017-03-02] MEDS: FENOFIBRATE 145 MG TAB PO SCH (21:43)
[2017-03-02] MEDS: MIRTAZAPINE 15 MG TAB PO SCH (21:43)
[2017-03-03] VITALS (22 sets, daily range): BP systolic 108–150; BP diastolic 67–81; PULSE 70–114; RESP 17–20; TEMP 97–98.8; O2SAT 90–100
[2017-03-03] MEDS: hydrALAZINE HCL 25 MG TAB PO SCH ×3 (05:58→21:31)
[2017-03-03] MEDS: LEVOTHYROXINE SODIUM 150 MCG TAB PO SCH (05:58)
[2017-03-03 07:15] LABS: HEMATOCRIT 30.9 % (35.0-46.0); MEAN CELL VOLUME 92.3 FL (80.0-100.0); MEAN CORPUSCULAR HGB CONC 32.5 % (32.0-36.0); PLATELET COUNT 467 TH/MM3 (150-450); RED BLOOD COUNT 3.35 MIL/MM3 (4.00-5.30); RED CELL DISTRIBUTION WIDTH 17.8 % (11.6-17.2); REVIEW FLAG FINAL; WHITE BLOOD COUNT 9.3 TH/MM3 (4.0-11.0)
[2017-03-03 07:16] LABS: BICARBONATE 33.8 MEQ/L (21.0-32.0); POTASSIUM 4.7 MEQ/L (3.5-5.1)
[2017-03-03] MEDS: MULTIVITAMINS/MINERALS THERAPEUTIC TAB PO SCH (10:00)
[2017-03-03] MEDS ORDERED: INFLUENZA VIRUS VACCINE (QUADRIVALENT) 0.5 ML SYR IM ONE (10:00)
[2017-03-03] MEDS: SULFAMETHOXAZOLE-TRIMETHOPRIM DS 800-160 MG TAB PO SCH ×2 (10:00→21:30)
[2017-03-03] MEDS: ASPIRIN 81 MG CHEW TAB PO SCH (10:00)
[2017-03-03] MEDS ORDERED: PNEUMOCOCCAL POLYVALENT INJ 25 MCG/0.5 ML SYR IM ONE (10:00)
[2017-03-03] MEDS: POTASSIUM CHLORIDE 20 MEQ CONTROLLED RELEASE TAB PO SCH ×2 (10:01→21:30)
[2017-03-03] MEDS: RIVAROXABAN 10 MG TAB PO SCH (10:01)
[2017-03-03] MEDS: PANTOPRAZOLE SOD 40 MG DELAYED RELEASE TAB PO SCH (10:01)
[2017-03-03] MEDS: LOSARTAN 50 MG TAB PO SCH (10:01)
[2017-03-03] MEDS: DULoxetine HCl DR 60 MG CAP PO SCH (10:02)
[2017-03-03] MEDS: BUMETANIDE INJ 1 MG/4 ML VIAL IVP SCH ×2 (10:02→18:42)
[2017-03-03] MEDS: INSULIN ASPART SUPPLEMENTAL SCALE SQ SCH ×4 (10:05→21:00)
[2017-03-03] MEDS ORDERED: BUMETANIDE INJ 1 MG/4 ML VIAL IV PUSH ONE (11:00)
--- NOTE | 2017-03-03 11:31 | HHI.FPPN ---
Subjective Remarks Patient seen and examined this morning. Patient states that she is feeling little improvement with her treatment. Patient continues to be very short of breath and feel edematous. Patient largely feels uncomfortable. Patient is having difficulty sleeping because she cannot lay down flat. She has to sit upright at night in order to breathe comfortably. She states that she is urinating frequently. She does think that her leg swelling has gone down a little bit. For the most part she is uncomfortable and continues to state that she has been uncomfortable for the past year. (Jany Morris MD R2) Objective Vitals Vital Signs Date Time Temp Pulse Resp B/P (MAP) Pulse Ox O2 Delivery O2 Flow Rate FiO2 03/03/17 08:38 98.8 93 17 150/73 (98) 100 03/03/17 06:00 97 03/03/17 05:00 90 03/03/17 04:00 97 03/03/17 03:00 109 03/03/17 03:00 97.8 110 18 149/81 (103) 94 03/03/17 02:00 114 03/03/17 01:00 104 03/03/17 00:00 84 03/02/17 23:00 84 03/02/17 23:00 97.7 88 18 136/83 (100) 98 03/02/17 22:00 78 03/02/17 21:00 90 03/02/17 20:00 86 03/02/17 20:00 97.8 89 18 130/80 (97) 98 03/02/17 19:00 91 03/02/17 17:00 89 03/02/17 16:00 86 03/02/17 15:00 97.3 99 16 142/77 (98) 98 03/02/17 15:00 81 03/02/17 14:00 112 03/02/17 12:13 99 03/02/17 11:50 96 Nasal Cannula 3.50 03/02/17 11:00 89 03/02/17 11:00 97.5 80 18 130/79 (96) 97 I/O 03/02/17 03/02/17 03/02/17 03/03/17 03/03/17 03/03/17 07:00 15:00 23:00 07:00 15:00 23:00 Intake Total 308 ml 610 ml 240 ml Output Total 1150 ml 950 ml Balance 308 ml -540 ml -710 ml Intake Oral 240 ml 610 ml 240 ml IV Total 68 ml Output Urine Total 1150 ml 950 ml # Voids 5 (Jany Morris MD R2) Result Diagram: 03/03/1751903/03/17519 Objective Remarks GENERAL: In no acute distress, slightly uncomfortable lady sitting up in bed, no obvious difficulty breathing, carries conversations without difficulty SKIN: thin, ecchymoses on b/l upper extremities EYES: PERRLA NECK: JVD present CARDIOVASCULAR: Irregular rate and rhythm, distant heart sounds with 2/6 systolic murmur RESPIRATORY: diminished breath sound throughout, equal breath sounds throughout , no wheezing or rhonchi, soft crackles in the lower lobes GASTROINTESTINAL: Abdomen soft, non-tender, nondistended. + BS. No hepato- splenomegaly, or palpable masses. MUSCULOSKELETAL: 1+ pitting edema b/l to proximal tibia, decreased from yesterday. No calf tenderness. NEUROLOGICAL: Awake, alert, and oriented x3. (Jany Morris MD R2) A/P Assessment and Plan 76 yr old F admitted for acute on chronic diastolic CHF, ACS rule-out, Afib w/ RVR, and UTI Discharge Planning Pending clinical improvement (Jany Morris MD R2) Attending Attestation Pt. examined and case discussed with resident physicians. I have read the above note and agree with the assessment and plan as discussed with me. I was involved in all medical decision making for this patient. Arya Perez MD (Arya Perez MD) Problem List: (1) Acute on chronic diastolic CHF (congestive heart failure) ICD Codes: I50.33 - Acute on chronic diastolic (congestive) heart failure Status: Acute Plan: Acute on chronic CHF exacerbation, minimal improvement on diuretics F/U CXR for progression of effusions - will consider thoracentesis if necessary Continue diuresis with 1 mg Bumex IV twice a day + STAT dose of 1mg Bumex IV now - Cont 1.5 L fluid restriction daily - Cont Strict I's and O's - Cont Daily weights - Cont Heart healthy/low-salt diet Supplemental oxygen as needed Continue losartan 50 mg daily Review of echo from 08/2016 shows an ejection fraction of 50-60% PT/OT to evaluate patient for any discharge needs performing arts road manager consult to assist with patient medications on discharge (2) Afib ICD Codes: I48.91 - Unspecified atrial fibrillation Status: Chronic Plan: Afib w/ RVR - heart rate in the 78-114 range Wean Cardizem drip titrate per protocol Start Cardizem PO home medication Troponins 3 - 0.19 - 0.10 - 0.18 EKG revealed afib but no sign of acute ischemia Continue home xarelto Aspirin 81mg PO daily (3) UTI (urinary tract infection) ICD Codes: N39.0 - Urinary tract infection Status: Acute Plan: Patient complains of slight dysuria and urinary frequency. Hx of recurrent UTIs. Bactrim DS 1 tablet BID (started 02/19) Day #3/4 UA showed large leukocyte esterases and bacteria Ucx: 50-100,000 colonies (4) Depression ICD Codes: F32.9 - Major depressive disorder, single episode, unspecified Plan: -Psychiatry consulted -F/u Recs: increased cymbalta 90, Remeron 15 (5) Type 2 diabetes mellitus ICD Codes: E11.9 - Type 2 diabetes mellitus without complications Status: Chronic Plan: -Held home detemir and aspart -Low NovoLog sliding scale - f/u FS (6) COPD (chronic obstructive pulmonary disease) ICD Codes: J44.9 - Chronic obstructive pulmonary disease, unspecified Status: Chronic Plan: -On home 2.5 L O2, currently on 3.5L NC -Quit smoking 30 years ago (7) HTN (hypertension) ICD Codes: I10 - Essential (primary) hypertension Status: Chronic Plan: -Continue home meds * Hydralazine HCl 25mg PO q8hr * Losartan 50mg PO daily (8) GERD (gastroesophageal reflux disease) ICD Codes: K21.9 - Gastro-esophageal reflux disease without esophagitis Status: Chronic Plan: -Continue home Pantoprazole 40 mg PO daily (9) Hyperlipidemia ICD Codes: E78.5 - Hyperlipidemia, unspecified Status: Chronic Plan: -Continue home Fenofibrate 160mg PO HS and Atorvastatin 80mg PO HS (10) Hypothyroidism ICD Codes: E03.9 - Hypothyroidism, unspecified Status: Chronic Plan: -Continue home levothyroxine 150 mcg PO daily (11) Nutrition, metabolism, and development symptoms ICD Codes: R63.8 - Other symptoms and signs concerning food and fluid intake Status: Acute Plan: Fluids: none Diet: Heart Healthy, 1.5L daily fluid restriction, Other: Daily weights, Strict I& Os, vitals q4h DVTppx: SCDs b/l Consults: OT, PT, case management (Jany Morris MD R2) Jany Morris MD R2 Mar 03, 2017 11:14 Arya Perez MD Mar 03, 2017 22:47
[2017-03-03] MEDS: DILTIAZEM HCL 90 MG TAB PO SCH ×2 (13:06→18:41)
--- NOTE | 2017-03-03 21:27 | RADRPT ---
EXAM DATE/TIME: 03/03/2017 20:44 [facility] COMPARISON: CHEST PA & LAT, November 22, 2016, 12:59. INDICATIONS : Shortness of breath. MEDICAL HISTORY : Hypercholesterolemia. Gastroesophageal reflux disease. Chronic obstructive pulmonary disease. Hypothy roidism. Myocardial infarction. Congestive heart failure. Coronary artery disease. Atrial fibrillatio n. Hernia, hiatal. Hypertension. Herpes. Arthritis. Diabetes.Depression. MRSA. SURGICAL HISTORY : Bilateral cataract surgery. Cardiac catheterization. Coronary stent. Back surgery. ENCOUNTER: Subsequent ACUITY: 3 days PAIN SCORE: 0/10 LOCATION: Bilateral chest FINDINGS: The patient is status post sternotomy. The heart size appears enlarged. There is increased parenchyma l density seen throughout the mid and lower lungs being most prominent in the perihilar regions. Ther e are suspected bilateral pleural effusions being greater on the left than the right. Spurs are seen in the thoracic spine. Surgical hardware is seen in the lumbar spine. CONCLUSION: Cardiomegaly with diffuse increased parenchymal density and suspected bilateral effusions related to CHF. Some underlying inflammatory process cannot be excluded. Mango Sheth MD on March 03, 2017 at 21:24 Board Certified Radiologist. This report was verified electronically.
[2017-03-03] MEDS: MIRTAZAPINE 15 MG TAB PO SCH (21:30)
[2017-03-03] MEDS: FENOFIBRATE 145 MG TAB PO SCH (21:30)
[2017-03-03] MEDS: ATORVASTATIN 80 MG TAB PO SCH (22:06)
[2017-03-03] MEDS: ALPRAZolam 0.25 MG TAB PO PRN (23:07)
[2017-03-04] VITALS (24 sets, daily range): BP systolic 100–129; BP diastolic 50–80; PULSE 63–106; RESP 16–20; TEMP 97.2–98.2; O2SAT 91–98
[2017-03-04] MEDS: DILTIAZEM HCL 90 MG TAB PO SCH ×5 (01:20→23:14)
[2017-03-04] MEDS: LEVOTHYROXINE SODIUM 150 MCG TAB PO SCH (06:30)
[2017-03-04] MEDS: hydrALAZINE HCL 25 MG TAB PO SCH ×3 (06:30→20:14)
[2017-03-04] MEDS: POTASSIUM CHLORIDE 20 MEQ CONTROLLED RELEASE TAB PO SCH (08:28)
[2017-03-04] MEDS: MULTIVITAMINS/MINERALS THERAPEUTIC TAB PO SCH (08:28)
[2017-03-04] MEDS: INSULIN ASPART SUPPLEMENTAL SCALE SQ SCH ×4 (08:28→20:15)
[2017-03-04] MEDS: PANTOPRAZOLE SOD 40 MG DELAYED RELEASE TAB PO SCH (08:29)
[2017-03-04] MEDS: ASPIRIN 81 MG CHEW TAB PO SCH (08:29)
[2017-03-04] MEDS: BUMETANIDE INJ 1 MG/4 ML VIAL IVP SCH (08:31)
[2017-03-04] MEDS: LOSARTAN 50 MG TAB PO SCH (08:31)
[2017-03-04 08:51] LABS: AUTOMATED NEUTROPHIL # 6.5 TH/MM3 (1.8-7.7); BASOPHIL # 0.1 TH/MM3 (0-0.2); EOSINOPHIL # 0.1 TH/MM3 (0-0.4); EOSINOPHIL % 1.1 % (0.0-4.0); HEMATOCRIT 29.3 % (35.0-46.0); HEMO FLAGS DIFF FINAL; LYMPH % 6.3 % (9.0-44.0); LYMPHOCYTE # 0.5 TH/MM3 (1.0-4.8); MEAN CELL VOLUME 92.8 FL (80.0-100.0); MEAN CORPUSCULAR HEMOGLOBIN 30.1 PG (27.0-34.0); MEAN CORPUSCULAR HGB CONC 32.4 % (32.0-36.0); MONO % 6.3 % (0.0-8.0); NEUT % 85.3 % (16.0-70.0); PLATELET COUNT 414 TH/MM3 (150-450); RED BLOOD COUNT 3.16 MIL/MM3 (4.00-5.30); RED CELL DISTRIBUTION WIDTH 17.9 % (11.6-17.2); WHITE BLOOD COUNT 7.6 TH/MM3 (4.0-11.0)
[2017-03-04] MEDS: RIVAROXABAN 15 MG TAB PO SCH (09:10)
[2017-03-04] MEDS: SULFAMETHOXAZOLE-TRIMETHOPRIM DS 800-160 MG TAB PO SCH (09:10)
[2017-03-04] MEDS: DULoxetine HCl DR 60 MG CAP PO SCH (09:10)
[2017-03-04 09:17] LABS: BICARBONATE 38.8 MEQ/L (21.0-32.0); POTASSIUM 5.3 MEQ/L (3.5-5.1)
[2017-03-04] MEDS ORDERED: RESP: ALBUTEROL 2.5 MG/IPRATROPIUM 0.5 MG NEB (SCH) NEB PRN (09:45)
--- NOTE | 2017-03-04 09:45 | HHI.FPPN ---
Subjective Remarks The patient stated that yesterday afternoon, she had increased urinary frequency. She stated that she had to urinate approximately every 30 minutes. The patient states that on two occasions yesterday afternoon and once this morning she had the urge to urinate but was unable to void. The patient endorses improved shortness of breath, and she was able to sleep through the night without awakening. The patient does not feel her swelling has improved, and the nursing staff indicates that the swelling has worsened. The patient indicates that she had a mild panic attack yesterday prior to her chest XR for which she requested a Xanax. The patient states that her palpitations have improved. OT assessment indicates that patient is unable to care for self at home safely; therefore, 3-5weeks of rehabilitation is recommended. (Jany Morris MD R2) Objective Vitals Vital Signs Date Time Temp Pulse Resp B/P (MAP) Pulse Ox O2 Delivery O2 Flow Rate FiO2 03/04/17 06:00 72 03/04/17 05:00 81 03/04/17 04:17 94 Nasal Cannula 3.00 03/04/17 04:03 98.2 73 20 100/50 (67) 94 03/04/17 04:00 73 03/04/17 03:00 79 03/04/17 02:00 85 03/04/17 01:00 63 03/04/17 00:00 95 03/03/17 23:00 98.3 81 20 138/69 (92) 93 03/03/17 23:00 80 03/03/17 22:00 72 03/03/17 21:00 70 03/03/17 20:00 98.1 81 18 108/67 (81) 91 03/03/17 20:00 76 03/03/17 19:00 94 03/03/17 15:00 114 03/03/17 14:00 100 03/03/17 13:22 97.0 89 17 131/76 (94) 90 03/03/17 13:00 114 03/03/17 12:00 94 03/03/17 11:00 98 03/03/17 10:00 102 I/O 03/03/17 03/03/17 03/03/17 03/04/17 03/04/17 03/04/17 07:00 15:00 23:00 07:00 15:00 23:00 Intake Total 240 ml 700 ml Output Total 950 ml 300 ml 700 ml Balance -710 ml -300 ml 0 ml Intake Oral 240 ml 700 ml Output Urine Total 950 ml 300 ml 700 ml (Jany Morris MD R2) Result Diagram: 03/04/17 0801 03/04/17 0811 Imaging Last Impressions Chest X-Ray 03/03/17 1053 Signed Impressions: Service Date/Time: February 20:44 - CONCLUSION: Cardiomegaly with diffuse increased parenchymal density and suspected bilateral effusions related to CHF. Some underlying inflammatory process cannot be excluded. Mango Sheth MD Lower Extremity Ultrasound 03/01/17 0000 Signed Impressions: Service Date/Time: Wednesday, March 01, 2017 19:36 - CONCLUSION: No DVT. Mango Sheth MD Objective Remarks GENERAL: In no acute distress, no obvious difficulty breathing, carries conversations without difficulty SKIN: thin, ecchymoses on b/l upper extremities EYES: PERRLA NECK: JVD present CARDIOVASCULAR: Irregular rate and rhythm, distant heart sounds with 2/6 systolic murmur RESPIRATORY: diminished breath sound throughout, equal breath sounds throughout , no wheezing or rhonchi, soft crackles in the lower lobes GASTROINTESTINAL: Abdomen soft, non-tender, nondistended. + BS. No hepato- splenomegaly, or palpable masses. MUSCULOSKELETAL: 2+ pitting edema b/l to proximal tibia, increased from yesterday. No calf tenderness. NEUROLOGICAL: Awake, alert, and oriented x3. (Jany Morris MD R2) A/P Assessment and Plan 76 yr old F admitted for acute on chronic diastolic CHF, ACS rule-out, Afib w/ RVR, and UTI Discharge Planning Pending clinical improvement (Jany Morris MD R2) Attending Attestation Pt. examined and case discussed with resident physicians. I have read the above note and agree with the assessment and plan as discussed with me. I was involved in all medical decision making for this patient. Arya Perez MD (Arya Perez MD) Problem List: (1) Acute on chronic diastolic CHF (congestive heart failure) ICD Codes: I50.33 - Acute on chronic diastolic (congestive) heart failure Status: Acute Plan: Acute on chronic CHF exacerbation, minimal improvement on diuretics - Consult Cardio: r/o cardiorenal syndrome, consider repeat echo, consider spironolactone -Switch Bumex 1mg IV BID --> Furosemide 40mg IV BID + STAT dose furosemide 40 IV Now -- per conversation with patient; she stated on admission that she was allergic to furosemide, however she thought she was allergic because when she came in on her last admission she was given furosemide and all of the fluid was diuresed and her potassium was low. He was discussed with the patient that this is not an allergy and furosemide might work better for her. 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 Hx of recurrent UTIs. UA showed large leukocyte esterases and bacteria Ucx: 50-100,000 colonies s/p Bactrim 100 BID x 3 days (4) Depression ICD Codes: F32.9 - Major depressive disorder, single episode, unspecified Status: Chronic Plan: -Psychiatry consulted -F/u Recs: cymbalta 90, Remeron 15 (5) Type 2 diabetes mellitus ICD Codes: E11.9 - Type 2 diabetes mellitus without complications Status: Chronic Plan: -Held home detemir and aspart -Low NovoLog sliding scale - f/u FS (6) COPD (chronic obstructive pulmonary disease) ICD Codes: J44.9 - Chronic obstructive pulmonary disease, unspecified Status: Chronic Plan: -On home 2.5 L O2, currently on 3.0L NC -DuoNeb breathing treatment PRN for SOB, pt states exacerbates her HF -Quit smoking 30 years ago (7) HTN (hypertension) ICD Codes: I10 - Essential (primary) hypertension Status: Chronic Plan: -Continue home meds * Hydralazine HCl 25mg PO q8hr * Losartan 50mg PO daily (8) GERD (gastroesophageal reflux disease) ICD Codes: K21.9 - Gastro-esophageal reflux disease without esophagitis Status: Chronic Plan: -Continue home Pantoprazole 40 mg PO daily (9) Hyperlipidemia ICD Codes: E78.5 - Hyperlipidemia, unspecified Status: Chronic Plan: -Continue home Fenofibrate 160mg PO HS and Atorvastatin 80mg PO HS (10) Hypothyroidism ICD Codes: E03.9 - Hypothyroidism, unspecified Status: Chronic Plan: -Continue home levothyroxine 150 mcg PO daily (11) Nutrition, metabolism, and development symptoms ICD Codes: R63.8 - Other symptoms and signs concerning food and fluid intake Status: Acute Plan: Fluids: none Diet: Heart Healthy, 1.5L daily fluid restriction, Other: Daily weights, Strict I& Os, vitals q4h DVTppx: SCDs b/l Consults: OT, PT, case management (Jany Morris MD R2) Jany Morris MD R2 Mar 04, 2017 09:44 Arya Perez MD Mar 04, 2017 16:03
[2017-03-04] MEDS ORDERED: FUROSEMIDE 40 MG/4 ML VIAL IV PUSH ONE (12:00)
[2017-03-04] MEDS: ALPRAZolam 0.25 MG TAB PO PRN ×2 (13:44→20:14)
--- NOTE | 2017-03-04 15:51 | PD.CONS ---
HPI Consult Requested By Primary Care Physician Remigio Lee DO History of Present Illness 76 y/o F that presents to the ED for evaluation of shortness of breath and weakness. PMHx significant for CAD s/p CABG, atrial fibrillation on Eliquis, CHF, cholesterol, DM, moderate mitral regurgitation and multiple thoracocentesis , on home oxygen. She reports that for the past week she's been feeling more short of breath. She has not been compliant with medications. She has any fevers chills or sweats. No chest pain. She denies any abdominal pain Cardiology admitted for CHF exacerbation. Review of Systems Consitutional: DENIES: Fatigue, Fever, Chills, Weight gain, Weight loss Eyes: DENIES: Amaurosis Fugax, Change in vision HEENT: DENIES: Lightheadedness, Change in hearing Respiratory: COMPLAINS OF: Shortness of breath, DENIES: See HPI, Cough, Snoring , Wheezing, Sputum production Cardiovascular: DENIES: See HPI, Chest pain, Palpitations, Syncope, Tachycardia Gastrointestinal: DENIES: Nausea, Vomiting, Change in bowel habits, Reflux, Bloody stools, Melena Genitourinary: DENIES: Urinary incontinence, Difficulty voiding Integumentary: DENIES: Rash Neurologic: DENIES: Tingling or numbness, Memory problems, Poor Balance, Stroke symptoms Musculoskeletal: DENIES: Joint pain, Muscle pain, Limited range of motion, Back pain Psychiatric: DENIES: Anxiety, Depression, Sleep disturbances Hematologic: DENIES: Bruising tendencies, Bleeding tendencies Endocrine: DENIES: Weight gain, Weight loss, Thyroid disease Past Family Social History Allergies: Coded Allergies: erythromycin base (Unverified Allergy, Unknown, 01/11/17) penicillin G (Unverified Allergy, Unknown, 01/11/17) Past Medical History Hypothyroidism Coronary artery disease status post stent placement in 2007 and coronary artery bypass graft 01 March 2016 Congestive heart failure Hyperlipidemia Arthritis Diabetes mellitus Atrial fibrillation on xarelto Hypertension COPD on home oxygen GERD Echo 09/16/16 w/ EF 50-60% Past Surgical History CABG 3 in February 2016 Gastric bypass 2010 Back surgery Bilateral cataract surgery Coronary stent placed 2007 Reported Medications Reported Meds & Active Scripts Active Xarelto (Rivaroxaban) 10 Mg Tab 20 Mg PO DAILY 30 Days Levemir Inj (Insulin Detemir) 1,000 unit/ 10 ML Vial 15 Units SQ HS [address] (Duloxetine HCl) 60 Mg Capdr 60 Mg PO DAILY 30 Days Metoprolol Tartrate 25 Mg Tab 25 Mg PO Q12HR Trazodone (Trazodone HCl) 50 Mg Tab 50 Mg PO HS 30 Days Pantoprazole (Pantoprazole Sodium) 40 Mg Tab 40 Mg PO DAILY 30 Days Thera M Plus (Multivitamins/Minerals Therapeutic) 1 Tab 1 Tab PO DAILY 30 Days Aspirin Low Strength (Aspirin) 81 Mg Chew 81 Mg PO DAILY 30 Days Reported Losartan (Losartan Potassium) 50 Mg Tab 50 Mg PO DAILY Bumetanide 1 Mg Tab 1 Mg PO BID Potassium Chloride ER (Potassium Chloride) 20 Meq Tab 20 Meq PO DAILY Hydralazine HCl 25 Mg Tablet 25 Mg PO Q8HR Ergocalciferol 50,000 Unit Cap 50,000 Units PO Q7D ON MONDAYS Atorvastatin (Atorvastatin Calcium) 80 Mg Tab 80 Mg PO HS Diltiazem (Diltiazem HCl) 90 Mg Tab 90 Mg PO QID Before meals and at bedtime Novolog Inj (Insulin Aspart) 1,000 Unit/10 Ml Vial 2-10 Units SQ ACHS Sliding Scale Valtrex (Valacyclovir HCl) 1 Gm Tab 1 Gm PO HS Cyanocobalamin Inj (Cyanocobalamin) 1,000 Mcg/Ml Inj 1,000 Mcg IM EVERY 2 WEEKS Levothyroxine (Levothyroxine Sodium) 150 Mcg Tab 150 Mcg PO DAILY@0600 Fenofibrate 160 Mg Tab 160 Mg PO HS Active Ordered Medications Current Medications Medications (Trade) Dose Ordered Sig/Seema Route Start Time Stop Time Status Last Admin Diltiazem HCl 125 mg/Sodium Chloride 125 ml @ 5 mls/hr TITRATE PRN IV 03/01/17 18:30 03/01/17 22:28 (D50w (Vial) Inj) 50 ml UNSCH PRN IV PUSH 03/01/17 21:15 (Glucagon Inj) 1 mg UNSCH PRN OTHER 03/01/17 21:15 (NovoLOG SUPPLEMENTAL SCALE) 1 ACHS SLIDING SCALE SQ 03/02/17 08:00 03/04/17 12:43 (Aspirin Chew) 81 mg DAILY PO 03/02/17 09:00 03/04/17 08:29 (Lipitor) 80 mg HS PO 03/01/17 21:00 03/03/17 22:06 (Apresoline) 25 mg Q8HR PO 03/01/17 22:00 03/04/17 13:45 (Synthroid) 150 mcg DAILY@0600 PO 03/02/17 06:00 03/04/17 06:30 (Cozaar) 50 mg DAILY PO 03/02/17 09:00 03/04/17 08:31 (Theragran M Tab) 1 tab DAILY PO 03/02/17 09:00 03/04/17 08:28 (Protonix) 40 mg DAILY PO 03/02/17 09:00 03/04/17 08:29 (Tricor) 145 mg HS PO 03/01/17 21:30 03/03/17 21:30 (Duoneb Neb) 1 ampule Q4HR NEB PRN NEB 03/01/17 22:00 (Cymbalta Dr) 90 mg DAILY PO 03/03/17 09:00 03/04/17 09:10 (Remeron) 15 mg HS PO 03/02/17 21:00 03/03/17 21:30 (Xanax) 0.25 mg Q8H PRN PO 03/02/17 15:45 03/04/17 13:44 (Cardizem) 90 mg Q6HR PO 03/03/17 12:00 03/04/17 12:44 (Xarelto) 15 mg DAILY PO 03/04/17 09:00 03/04/17 09:10 (Vistaril) 50 mg HS PRN PO 03/04/17 21:00 (Lasix Inj) 40 mg BID@09,18 IV PUSH 03/04/17 18:00 Family History Father 65 y/o myocardial infarction Mother 83 y/o from complications related to fall, TB, esophageal stricture Brother with bladder cancer, PE Son committed suicide 2 years ago Social History Lives by herself with 1 dog Tobacco: Quit smoking 30 years ago; smoked 3 ppd previously for 30 years Alcohol: Drinks occasionally Son Mo committed suicide 2 years ago Physical Exam Vital Signs Vital Signs Date Time Temp Pulse Resp B/P (MAP) Pulse Ox O2 Delivery O2 Flow Rate FiO2 03/04/17 11:00 97.2 98 19 129/80 (96) 98 03/04/17 08:30 92 03/04/17 07:00 101 03/04/17 07:00 97.5 98 20 126/80 (95) 97 10/6/17 06:00 72 03/04/17 05:00 81 03/04/17 04:17 94 Nasal Cannula 3.00 03/04/17 04:03 98.2 73 20 100/50 (67) 94 03/04/17 04:00 73 03/04/17 03:00 79 03/04/17 02:00 85 03/04/17 01:00 63 03/04/17 00:00 95 03/03/17 23:00 98.3 81 20 138/69 (92) 93 03/03/17 23:00 80 03/03/17 22:00 72 03/03/17 21:00 70 03/03/17 20:00 98.1 81 18 108/67 (81) 91 03/03/17 20:00 76 03/03/17 19:00 94 Physical Exam GENERAL: Well-nourished, well-developed patient. SKIN: Warm and dry. HEAD: Normocephalic. EYES: No scleral icterus. No injection or drainage. NECK: Supple, trachea midline. No JVD or lymphadenopathy. CARDIOVASCULAR: Regular rate and rhythm without murmurs, gallops, or rubs. RESPIRATORY: Breath sounds equal bilaterally. No accessory muscle use. GASTROINTESTINAL: Abdomen soft, non-tender, nondistended. EXTREMITIES: No cyanosis, or edema. Laboratory Laboratory Tests Test 03/04/17 08:01 03/04/17 08:11 White Blood Count 7.6 Red Blood Count 3.16 Hemoglobin 9.5 Hematocrit 29.3 Mean Corpuscular Volume 92.8 Mean Corpuscular Hemoglobin 30.1 Mean Corpuscular Hemoglobin Concent 32.4 Red Cell Distribution Width 17.9 Platelet Count 414 Mean Platelet Volume 8.0 Neutrophils (%) (Auto) 85.3 Lymphocytes (%) (Auto) 6.3 Monocytes (%) (Auto) 6.3 Eosinophils (%) (Auto) 1.1 Basophils (%) (Auto) 1.0 Neutrophils # (Auto) 6.5 Lymphocytes # (Auto) 0.5 Monocytes # (Auto) 0.5 Eosinophils # (Auto) 0.1 Basophils # (Auto) 0.1 CBC Comment DIFF FINAL Differential Comment B-Type Natriuretic Peptide 281 Blood Urea Nitrogen 34 Creatinine 1.24 Random Glucose 153 Calcium Level 9.8 Sodium Level 137 Potassium Level 5.3 Chloride Level 94 Carbon Dioxide Level 38.8 Anion Gap 4 Estimat Glomerular Filtration Rate 42 Date/Time Source Procedure Growth Status 03/01/17 19:30 Blood Peripheral Aerobic Blood Culture - Preliminary NO GROWTH IN 3 DAYS Resulted 03/01/17 19:30 Blood Peripheral Anaerobic Blood Culture - Preliminary NO GROWTH IN 3 DAYS Resulted 03/01/17 17:10 Urine Random Urine Urine Culture - Final 50-100,000 CFU/ML MIXED MANGO... Complete Result Diagram: 03/04/17 0801 03/04/17 0811 Imaging Last Impressions Chest X-Ray 03/03/17 1053 Signed Impressions: Service Date/Time: February 20:44 - CONCLUSION: Cardiomegaly with diffuse increased parenchymal density and suspected bilateral effusions related to CHF. Some underlying inflammatory process cannot be excluded. Mango Sheth MD Lower Extremity Ultrasound 03/01/17 0000 Signed Impressions: Service Date/Time: Wednesday, March 01, 2017 19:36 - CONCLUSION: No DVT. Mango Sheth MD Assessment and Plan Problem List: (1) Acute on chronic diastolic CHF (congestive heart failure) ICD Codes: I50.33 - Acute on chronic diastolic (congestive) heart failure Status: Acute Plan: Continue IV diuresis Strict I's and O's Daily weights Low-salt diet Continue losartan [address] surgery evaluation Dr. Blackwell (2) Afib ICD Codes: I48.91 - Unspecified atrial fibrillation Status: Resolved (3) COPD (chronic obstructive pulmonary disease) ICD Codes: J44.9 - Chronic obstructive pulmonary disease, unspecified Status: Chronic (4) HTN (hypertension) ICD Codes: I10 - Essential (primary) hypertension Status: Chronic (5) Hyperlipidemia ICD Codes: E78.5 - Hyperlipidemia, unspecified Status: Chronic Harsh Mckeon MD Mar 04, 2017 15:51
[2017-03-04] MEDS: FUROSEMIDE 40 MG/4 ML VIAL IV PUSH SCH (18:00)
[2017-03-04] MEDS: FENOFIBRATE 145 MG TAB PO SCH (20:13)
[2017-03-04] MEDS: MIRTAZAPINE 15 MG TAB PO SCH (20:14)
[2017-03-04] MEDS: ATORVASTATIN 80 MG TAB PO SCH (20:14)
[2017-03-05] VITALS (29 sets, daily range): BP systolic 122–133; BP diastolic 64–81; PULSE 70–114; RESP 16–24; TEMP 97.9–98.4; O2SAT 91–98
[2017-03-05 04:15] LABS: AUTOMATED NEUTROPHIL # 8.5 TH/MM3 (1.8-7.7); BASOPHIL # 0.1 TH/MM3 (0-0.2); BASOPHIL % 0.9 % (0.0-2.0); EOSINOPHIL # 0.1 TH/MM3 (0-0.4); EOSINOPHIL % 0.6 % (0.0-4.0); HEMATOCRIT 29.3 % (35.0-46.0); HEMO FLAGS DIFF FINAL; LYMPH % 3.2 % (9.0-44.0); LYMPHOCYTE # 0.3 TH/MM3 (1.0-4.8); MEAN CELL VOLUME 92.9 FL (80.0-100.0); MEAN CORPUSCULAR HEMOGLOBIN 30.2 PG (27.0-34.0); MEAN CORPUSCULAR HGB CONC 32.5 % (32.0-36.0); MONO % 5.8 % (0.0-8.0); NEUT % 89.5 % (16.0-70.0); PLATELET COUNT 417 TH/MM3 (150-450); RED BLOOD COUNT 3.15 MIL/MM3 (4.00-5.30); RED CELL DISTRIBUTION WIDTH 18.1 % (11.6-17.2); WHITE BLOOD COUNT 9.5 TH/MM3 (4.0-11.0)
[2017-03-05] MEDS: DILTIAZEM HCL 90 MG TAB PO SCH ×4 (04:26→23:21)
[2017-03-05] MEDS: hydrALAZINE HCL 25 MG TAB PO SCH ×3 (04:26→21:31)
[2017-03-05] MEDS: LEVOTHYROXINE SODIUM 150 MCG TAB PO SCH (04:26)
[2017-03-05 04:48] LABS: BICARBONATE 39.7 MEQ/L (21.0-32.0); POTASSIUM 5.9 MEQ/L (3.5-5.1)
[2017-03-05 07:01] LABS: BLOOD GAS BASE EXCESS 11.3 mmol/L (-2-2); BLOOD GAS HCO3 37 mmol/L (22-26); BLOOD GAS METHEMOGLOBIN 1.5 % (0-2); BLOOD GAS O2 HGB SATURATION 92 % (90-100); BLOOD GAS OXYGEN CONTENT 12.1 Vol % (12.0-20.0); BLOOD GAS PCO2 70 mmHg (38-42); BLOOD GAS PO2 87 mmHg (61-120); BLOOD GAS TOTAL HGB 9.2 G/DL (12.0-16.0); CRITICAL VALUE YES; DRAW SITE RT RADIAL; FIO2 100 %; LITER FLOW 15 L/M; NUMBER OF ARTERIAL PUNCTURES 1; OXYGEN DEVICE NRB; STAT YES; TEMP CORR TO 98.6; ULNAR PULSE PRESENT
--- NOTE | 2017-03-05 07:46 | PD.CARD.PN ---
Subjective Subjective Remarks overnight events noted hypoxic this am rapid response alert Objective Medications Current Medications Medications (Trade) Dose Ordered Sig/Seema Route Start Time Stop Time Status Last Admin Diltiazem HCl 125 mg/Sodium Chloride 125 ml @ 5 mls/hr TITRATE PRN IV 03/01/17 18:30 03/01/17 22:28 (D50w (Vial) Inj) 50 ml UNSCH PRN IV PUSH 03/01/17 21:15 (Glucagon Inj) 1 mg UNSCH PRN OTHER 03/01/17 21:15 (NovoLOG SUPPLEMENTAL SCALE) 1 ACHS SLIDING SCALE SQ 03/02/17 08:00 03/04/17 20:15 (Aspirin Chew) 81 mg DAILY PO 03/02/17 09:00 03/04/17 08:29 (Lipitor) 80 mg HS PO 03/01/17 21:00 03/04/17 20:14 (Apresoline) 25 mg Q8HR PO 03/01/17 22:00 03/05/17 04:26 (Synthroid) 150 mcg DAILY@0600 PO 03/02/17 06:00 03/05/17 04:26 (Cozaar) 50 mg DAILY PO 03/02/17 09:00 03/04/17 08:31 (Theragran M Tab) 1 tab DAILY PO 03/02/17 09:00 03/04/17 08:28 (Protonix) 40 mg DAILY PO 03/02/17 09:00 03/04/17 08:29 (Tricor) 145 mg HS PO 03/01/17 21:30 03/04/17 20:13 (Duoneb Neb) 1 ampule Q4HR NEB PRN NEB 03/01/17 22:00 (Cymbalta Dr) 90 mg DAILY PO 03/03/17 09:00 03/04/17 09:10 (Remeron) 15 mg HS PO 03/02/17 21:00 03/04/17 20:14 (Xanax) 0.25 mg Q8H PRN PO 03/02/17 15:45 03/04/17 20:14 (Cardizem) 90 mg Q6HR PO 03/03/17 12:00 03/05/17 04:26 (Xarelto) 15 mg DAILY PO 03/04/17 09:00 03/04/17 09:10 (Vistaril) 50 mg HS PRN PO 03/04/17 21:00 (Lasix Inj) 40 mg BID@09,18 IV PUSH 03/04/17 18:00 03/04/17 18:00 (Lasix Inj) 40 mg ONCE ONCE IV PUSH 03/05/17 08:00 03/05/17 08:01 Vital Signs / I&O Vital Signs Date Time Temp Pulse Resp B/P (MAP) Pulse Ox O2 Delivery O2 Flow Rate FiO2 03/05/17 06:00 90 03/05/17 05:00 92 03/05/17 04:00 98.2 114 16 133/76 (95) 91 03/05/17 04:00 91 03/05/17 03:00 74 03/05/17 02:00 70 03/05/17 01:00 72 03/05/17 00:31 93 Nasal Cannula 3.00 03/05/17 00:00 76 03/05/17 00:00 97.9 83 16 124/69 (87) 92 03/04/17 23:00 72 03/04/17 22:00 76 03/04/17 21:00 77 03/04/17 21:00 97.4 79 16 122/77 (92) 91 03/04/17 18:11 72 03/04/17 17:00 68 03/04/17 16:00 72 03/04/17 15:00 97.2 68 20 121/79 (93) 98 03/04/17 15:00 68 03/04/17 14:00 82 03/04/17 13:00 82 03/04/17 12:00 78 03/04/17 11:00 76 03/04/17 11:00 97.2 98 19 129/80 (96) 98 03/04/17 10:00 104 03/04/17 09:00 106 03/04/17 08:30 92 I/O 03/04/17 03/04/17 03/04/17 03/05/17 03/05/17 03/05/17 07:00 15:00 23:00 07:00 15:00 23:00 Intake Total 700 ml 720 ml 480 ml Output Total 700 ml 1300 ml 850 ml Balance 0 ml -580 ml -370 ml Intake Oral 700 ml 720 ml 480 ml Output Urine Total 700 ml 1300 ml 850 ml Physical Exam GENERAL: Well-nourished, well-developed patient. SKIN: Warm and dry. HEAD: Normocephalic. EYES: No scleral icterus. No injection or drainage. NECK: Supple, trachea midline. No JVD or lymphadenopathy. CARDIOVASCULAR: Regular rate and rhythm without murmurs, gallops, or rubs. RESPIRATORY: Rales bilaterally GASTROINTESTINAL: Abdomen soft, non-tender, nondistended. EXTREMITIES: No cyanosis, or edema. NEUROLOGICAL: Awake, alert, and oriented x 3. Non-focal. Laboratory Laboratory Tests Test 03/04/17 08:01 03/04/17 08:11 03/05/17 03:47 03/05/17 06:40 White Blood Count 7.6 TH/MM3 9.5 TH/MM3 Red Blood Count 3.16 MIL/MM3 3.15 MIL/MM3 Hemoglobin 9.5 GM/DL 9.5 GM/DL Hematocrit 29.3 % 29.3 % Mean Corpuscular Volume 92.8 FL 92.9 FL Mean Corpuscular Hemoglobin 30.1 PG 30.2 PG Mean Corpuscular Hemoglobin Concent 32.4 % 32.5 % Red Cell Distribution Width 17.9 % 18.1 % Platelet Count 414 TH/MM3 417 TH/MM3 Mean Platelet Volume 8.0 FL 8.1 FL Neutrophils (%) (Auto) 85.3 % 89.5 % Lymphocytes (%) (Auto) 6.3 % 3.2 % Monocytes (%) (Auto) 6.3 % 5.8 % Eosinophils (%) (Auto) 1.1 % 0.6 % Basophils (%) (Auto) 1.0 % 0.9 % Neutrophils # (Auto) 6.5 TH/MM3 8.5 TH/MM3 Lymphocytes # (Auto) 0.5 TH/MM3 0.3 TH/MM3 Monocytes # (Auto) 0.5 TH/MM3 0.6 TH/MM3 Eosinophils # (Auto) 0.1 TH/MM3 0.1 TH/MM3 Basophils # (Auto) 0.1 TH/MM3 0.1 TH/MM3 CBC Comment DIFF FINAL DIFF FINAL Differential Comment B-Type Natriuretic Peptide 281 PG/ML 267 PG/ML Blood Urea Nitrogen 34 MG/DL 42 MG/DL Creatinine 1.24 MG/DL 1.47 MG/DL Random Glucose 153 MG/DL 125 MG/DL Calcium Level 9.8 MG/DL 10.0 MG/DL Sodium Level 137 MEQ/L 135 MEQ/L Potassium Level 5.3 MEQ/L 5.9 MEQ/L Chloride Level 94 MEQ/L 92 MEQ/L Carbon Dioxide Level 38.8 MEQ/L 39.7 MEQ/L Anion Gap 4 MEQ/L 3 MEQ/L Estimat Glomerular Filtration Rate 42 ML/MIN 35 ML/MIN Blood Gas Puncture Site RT RADIAL Blood Gas Patient Temperature 98.6 Blood Gas HCO3 37 mmol/L Blood Gas Base Excess 11.3 mmol/L Blood Gas Oxygen Saturation 92 % Arterial Blood pH 7.35 Arterial Blood Partial Pressure CO2 70 mmHg Arterial Blood Partial Pressure O2 87 mmHg Arterial Blood Oxygen Content 12.1 Vol % Arterial Blood Carboxyhemoglobin 2.0 % Arterial Blood Methemoglobin 1.5 % Blood Gas Hemoglobin 9.2 G/DL Oxygen Delivery Device NRB Blood Gas Liter Flow 15 L/M Blood Gas Inspired Oxygen 100 % Imaging Last Impressions Chest X-Ray 03/03/17 1053 Signed Impressions: Service Date/Time: February 20:44 - CONCLUSION: Cardiomegaly with diffuse increased parenchymal density and suspected bilateral effusions related to CHF. Some underlying inflammatory process cannot be excluded. Mango Sheth MD Lower Extremity Ultrasound 03/01/17 0000 Signed Impressions: Service Date/Time: Wednesday, March 01, 2017 19:36 - CONCLUSION: No DVT. Mango Sheth MD Assessment and Plan Problem List: (1) Acute on chronic diastolic CHF (congestive heart failure) ICD Codes: I50.33 - Acute on chronic diastolic (congestive) heart failure Status: Acute Plan: Continue IV diuresis Strict I's and O's Daily weights Low-salt diet Continue losartan 50 mg daily 2Decho Consider thoracentesis or CT surgery consult (2) Afib ICD Codes: I48.91 - Unspecified atrial fibrillation Status: Resolved (3) COPD (chronic obstructive pulmonary disease) ICD Codes: J44.9 - Chronic obstructive pulmonary disease, unspecified Status: Chronic (4) HTN (hypertension) ICD Codes: I10 - Essential (primary) hypertension Status: Chronic (5) Hyperlipidemia ICD Codes: E78.5 - Hyperlipidemia, unspecified Status: Chronic Azul-Harsh Torres MD Mar 05, 2017 07:46
--- NOTE | 2017-03-05 07:53 | HHI.FPPN ---
Addendum to progress note ADDENDUM Reason for addendum: Additonal documentation Additional information Resident team was called for a [facility] at 6:58 a.m. Patient had gotten up to go to the bathroom when O2 sats were noted to be in 70s. Patient was on 3 L nasal cannula at that time. Patient was experiencing shortness of breath but denied chest pain and heart palpitations. Subjective: Upon arrival to patient's room, patient was noted to be sitting upright, on the side of her bed. Patient was receiving 100% oxygen via Ventimask with O2 sats in 90s. Patient was not complaining of shortness of breath, chest pain or heart palpitations. Objective: Vitals within normal limits. On exam, breathing did not appear labored. Breath sounds were diffusely diminished. Slight crackles heard at bilateral lower lung bautista. Heart rate and rhythm normal. Pitting edema of the lower extremity noted bilaterally. Patient denied lower extremity tenderness. Assessment and Plan: STAT X-ray ordered. STAT EKG ordered. STAT ABG ordered. STAT D-dimer ordered. Lasix 40 mg IV once to be given now ordered. Jumana Marte MD R1 Mar 05, 2017 07:53
[2017-03-05] MEDS ORDERED: FUROSEMIDE 40 MG/4 ML VIAL IV PUSH ONE (08:00)
--- NOTE | 2017-03-05 09:04 | HHI.FPPN ---
Subjective Remarks Patient seen and examined bedside this morning. Patient is wearing oxygen mask and no acute distress, however is visibly irritated by the fact that she has to wear mask. Patient is requesting nasal cannula instead because of her claustrophobia. Earlier in the morning at 6 AM the patient got up to go to the bathroom and her oxygen sats dropped into the 70s while on 3 L nasal cannula; she continued to feel shortness of breath during this time. The patient states her shortness of breath at that time with the same as her baseline. She denies any chest pain or any physiological changes during this episode. Loida- cat was called by the nurse and she was put on an oxygen mask and her sats quickly climbed to the 90s. The [facility] team ordered a chest x-ray, EKG, ABG, d-dimer and a stat dose of 40 Lasix. The patient thinks this whole thing is silly and says she feels completely fine. (Jnay Morris MD R2) Objective Vitals Vital Signs Date Time Temp Pulse Resp B/P (MAP) Pulse Ox O2 Delivery O2 Flow Rate FiO2 03/05/17 06:42 97 6.00 50 03/05/17 06:00 90 03/05/17 05:00 92 03/05/17 04:00 98.2 114 16 133/76 (95) 91 03/05/17 04:00 91 03/05/17 03:00 74 03/05/17 02:00 70 03/05/17 01:00 72 03/05/17 00:31 93 Nasal Cannula 3.00 03/05/17 00:00 76 03/05/17 00:00 97.9 83 16 124/69 (87) 92 03/04/17 23:00 72 03/04/17 22:00 76 03/04/17 21:00 77 03/04/17 21:00 97.4 79 16 122/77 (92) 91 03/04/17 18:11 72 03/04/17 17:00 68 03/04/17 16:00 72 03/04/17 15:00 97.2 68 20 121/79 (93) 98 03/04/17 15:00 68 03/04/17 14:00 82 03/04/17 13:00 82 03/04/17 12:00 78 03/04/17 11:00 76 03/04/17 11:00 97.2 98 19 129/80 (96) 98 03/04/17 10:00 104 I/O 03/04/17 03/04/17 03/04/17 03/05/17 03/05/17 03/05/17 07:00 15:00 23:00 07:00 15:00 23:00 Intake Total 700 ml 720 ml 480 ml Output Total 700 ml 1300 ml 850 ml Balance 0 ml -580 ml -370 ml Intake Oral 700 ml 720 ml 480 ml Output Urine Total 700 ml 1300 ml 850 ml (Jany Morris MD R2) Result Diagram: 03/05/1734603/05/17346 Objective Remarks GENERAL: In no acute distress, patient switches from oxygen mask to nasal cannula and has no obvious difficulties breathing or carrying out conversation, the patient seems coherent and baseline SKIN: thin, ecchymoses on b/l upper extremities EYES: PERRLA NECK: JVD present CARDIOVASCULAR: Irregular rate and rhythm, distant heart sounds with 2/6 systolic murmur RESPIRATORY: diminished breath sound throughout, equal breath sounds throughout , no wheezing or rhonchi, soft crackles in the lower lobes (same as previous exams) GASTROINTESTINAL: Abdomen soft, non-tender, nondistended. + BS. No hepato- splenomegaly, or palpable masses. MUSCULOSKELETAL: 2+ pitting edema b/l to proximal tibia, same as exam yesterday , no erythema or palpable veins. No calf tenderness. NEUROLOGICAL: Awake, alert, and oriented x3. (Jany Morris MD R2) A/P Assessment and Plan 76 yr old F admitted for acute on chronic diastolic CHF, ACS rule-out, Afib w/ RVR, and UTI Discharge Planning Pending clinical improvement (Jany Morris MD R2) Attending Attestation Pt. examined and case discussed with resident physicians I have read the above note and agree with the assessment/plan as discussed with me I was involved in all medical decision making for this patient Pt. with acute hypoxic episode this morning, but relatively asymptomatic with it - CXR with worsening congestion and pleural effusions - Continue diuresis with IV lasix (plus extra dose this morning) - Thoracentesis via IR ordered - BiPap ordered with repeat ABG - Echo pending Pt. is frustrated with medical issues since her CABG procedure and tired of feeling bad - Palliative consulted to review goals of care with patient Arya Perez MD (Arya Perez MD) Problem List: (1) Acute on chronic diastolic CHF (congestive heart failure) ICD Codes: I50.33 - Acute on chronic diastolic (congestive) heart failure Status: Acute Plan: Acute on chronic CHF exacerbation, minimal improvement on diuretics, possible cardiorenal syndrome, episode of hypoxemia - Consult Cardio recs: f/u echo, consider thoracentesis/CT surgery - Furosemide 40mg IV BID + STAT dose furosemide 40 IV Now - continue losartan 50 mg daily - ABG: Respiratory acidosis with metabolic alkalosis compensation, normal pH - Creatinine: 1.47 (1.24) - f/u CXR - f/u EKG - BIPAP - repeat ABG within 1 hour of BIPAP initiation - f/u BMP at 12PM - thoracentesis : ultrasound-guided - f/u post-procedure CXR - f/u thoracentesis pleural fluid protein/LDH, cytology - palliative care consult - metoprolol held on admission -- per conversation with patient; she stated on admission that she was allergic to furosemide, however she thought she was allergic because when she came in on her last admission she was given furosemide and all of the fluid was diuresed and her potassium was low. He was discussed with the patient that this is not an allergy and furosemide might work better for her. This was removed from her allergy list CXR (03/04) for progression of effusions: CXR revealed diffuse increased parenchymal density and suspected bilateral effusions related to CHF; underlying inflammatory process cannot be excluded - Cont 1.5 L fluid restriction daily - Cont Strict I's and O's - Cont Daily weights - Cont Heart healthy/low-salt diet Supplemental oxygen as needed Review of echo from 08/2016 shows an ejection fraction of 50-60% OT: will be d/c to rehab center for 3-6weeks manager banking consult to assist with patient medications on discharge (2) Afib ICD Codes: I48.91 - Unspecified atrial fibrillation Status: Resolved Plan: Afib w/ RVR - heart rate in the [68-106] range Continue Cardizem PO home medication Metoprolol held Troponins 3 - 0.19 - 0.10 - 0.18 EKG revealed afib but no sign of acute ischemia Continue home xarelto Aspirin 81mg PO daily (3) UTI (urinary tract infection) ICD Codes: N39.0 - Urinary tract infection Status: Resolved Plan: (03/01)) Patient complains of slight dysuria and urinary frequency. Hx of recurrent UTIs. UA showed large leukocyte esterases and bacteria Ucx: 50-100,000 colonies s/p Bactrim 100 BID x 3 days (4) Depression ICD Codes: F32.9 - Major depressive disorder, single episode, unspecified Status: Chronic Plan: -Psychiatry consulted -F/u Recs: cymbalta 90, Remeron 15 (5) Type 2 diabetes mellitus ICD Codes: E11.9 - Type 2 diabetes mellitus without complications Status: Chronic Plan: -Re-start home detemir (7 in AM and 7 in PM) -Cont Low NovoLog sliding scale - f/u FS (6) COPD (chronic obstructive pulmonary disease) ICD Codes: J44.9 - Chronic obstructive pulmonary disease, unspecified Status: Chronic Plan: - 5.0L NC - Start BIPAP for acute CHF as above -On home 2.5 L O2 -DuoNeb breathing treatment PRN for SOB, pt states exacerbates her HF -Quit smoking 30 years ago (7) HTN (hypertension) ICD Codes: I10 - Essential (primary) hypertension Status: Chronic Plan: -Continue home meds * Hydralazine HCl 25mg PO q8hr * Losartan 50mg PO daily (8) GERD (gastroesophageal reflux disease) ICD Codes: K21.9 - Gastro-esophageal reflux disease without esophagitis Status: Chronic Plan: -Continue home Pantoprazole 40 mg PO daily (9) Hyperlipidemia ICD Codes: E78.5 - Hyperlipidemia, unspecified Status: Chronic Plan: -Continue home Fenofibrate 160mg PO HS and Atorvastatin 80mg PO HS (10) Hypothyroidism ICD Codes: E03.9 - Hypothyroidism, unspecified Status: Chronic Plan: -Continue home levothyroxine 150 mcg PO daily (11) JULIANE (acute kidney injury) ICD Codes: N17.9 - Acute kidney failure, unspecified Status: Acute Plan: Creat 1.47 - f/u BMP at 12PM Baseline 0.8 likely Cardiorenal syndrome ; see rx for CHF (12) Hyperkalemia ICD Codes: E87.5 - Hyperkalemia Status: Acute Plan: K+ 5.9, asymptomatic - Treat cause (BIPAP for resp acidosis) - f/u BMP at 12PM - f/u STAT EKG - Monitor cardiac telemetry - Calcium gluconate 1g IV once - Cont home Insulin (Detemir 15daily) - Kayexelate 15g BID - Continue diuresis with Furosemide 40mg IV BID + STAT dose furosemide 40mg IV this Baseline k 3.8 Likely cell breakdown from severe resp acidosis - pCO2 70 (13) Elevated d-dimer ICD Codes: R79.89 - Other specified abnormal findings of blood chemistry Status: Acute Plan: Elevated at 1.47 - continue Xarelto Possibility of chronic OR acute PE discussed, however given Creatinine of 1.47, we will not preform CTA at this time. Diagnostic imaging for PE would not change our management as our patient is already on chronic anticoagulation (14) Nutrition, metabolism, and development symptoms ICD Codes: R63.8 - Other symptoms and signs concerning food and fluid intake Status: Acute Plan: Fluids: none Diet: Heart Healthy, 1.5L daily fluid restriction, Other: Daily weights, Strict I& Os, vitals q4h DVTppx: SCDs b/l Consults: OT, PT, case management (Jany Morris MD R2) Jany Morris MD R2 Mar 05, 2017 09:04 Arya Perez MD Mar 05, 2017 13:08
--- NOTE | 2017-03-05 09:20 | RADRPT ---
EXAM DATE/TIME: 03/05/2017 08:47 [facility] COMPARISON: CHEST PA & LAT, March 03, 2017, 20:44. INDICATIONS : Short of breath. MEDICAL HISTORY : Hypercholesterolemia. Gastroesophageal reflux disease. Chronic obstructive pulmonary disease. Hypothy roidism. Myocardial infarction. Congestive heart failure. Coronary artery disease. Atrial fibrillatio n. Hernia, hiatal. Hypertension. Herpes. Arthritis. Diabetes.Depression. MRSA. SURGICAL HISTORY : Bilateral cataract surgery. Cardiac catheterization. Coronary stent. Back surgery. ENCOUNTER: Sequela ACUITY: 4 - 6 days PAIN SCORE: 0/10 LOCATION: Bilateral chest FINDINGS: The exam demonstrates advanced cardiomegaly and large bilateral effusions. There are diffuse infiltra herminia seen bilaterally. These findings have mildly worsened when compared to previous dated 03/03/17. The patient is post median sternotomy. The osseous structures are intact. CONCLUSION: 1. Advanced cardiomegaly with bilateral effusions and diffuse infiltrates suggesting congestive failu re. An underlying pneumonia cannot be excluded. Changes have mildly worsened compared to previous maryana ed 03/03/17. Varun Alvarez MD on March 05, 2017 at 9:18 Board Certified Radiologist. This report was verified electronically.
[2017-03-05] MEDS: RIVAROXABAN 15 MG TAB PO SCH (09:25)
[2017-03-05] MEDS: MULTIVITAMINS/MINERALS THERAPEUTIC TAB PO SCH (09:25)
[2017-03-05] MEDS: DULoxetine HCl DR 60 MG CAP PO SCH (09:25)
[2017-03-05] MEDS: ALPRAZolam 0.25 MG TAB PO PRN ×2 (09:25→20:10)
[2017-03-05] MEDS: PANTOPRAZOLE SOD 40 MG DELAYED RELEASE TAB PO SCH (09:25)
[2017-03-05] MEDS: ASPIRIN 81 MG CHEW TAB PO SCH (09:26)
[2017-03-05] MEDS: LOSARTAN 50 MG TAB PO SCH (09:26)
[2017-03-05] MEDS: INSULIN ASPART SUPPLEMENTAL SCALE SQ SCH ×4 (09:27→21:00)
[2017-03-05] MEDS ORDERED: CALCIUM GLUCONATE INJ 1 GM in SODIUM CHLORIDE 0.9% INJ 100 ML IV ONE (13:00)
--- NOTE | 2017-03-05 13:43 | RADRPT ---
EXAM DATE/TIME: 03/05/2017 12:33 [facility] COMPARISON: CHEST SINGLE AP, March 05, 2017, 8:47. INDICATIONS : Status post thoracentesis. Shortness of breath. MEDICAL HISTORY : Hypercholesterolemia. Gastroesophageal reflux disease. Chronic obstructive pulmonary disease. Hypothy roidism. Myocardial infarction. Congestive heart failure. Coronary artery disease. Atrial fibrillatio n. Hernia, hiatal. Hypertension. Herpes. Arthritis. Diabetes.Depression. MRSA. SURGICAL HISTORY : Bilateral cataract surgery. Cardiac catheterization. Coronary stent. ENCOUNTER: Initial ACUITY: 1 day PAIN SCORE: 0/10 LOCATION: Bilateral chest FINDINGS: There is advanced cardiomegaly. There are bilateral effusions and diffuse interstitial prominence. Fi ndings are most consistent with congestive failure. There are consolidative changes in the lung bases . Findings are similar to previous dated 03/05/17. Visualized bony structures are grossly intact. CONCLUSION: 1. Bilateral effusions, cardiomegaly and diffuse interstitial prominence most consistent with congest poly failure. There are consolidative changes in the lung bases an underlying pneumonia cannot be excl uded. Varun Alvarez MD on March 05, 2017 at 13:40 Board Certified Radiologist. This report was verified electronically.
--- NOTE | 2017-03-05 14:25 | RADRPT ---
EXAM DATE/TIME: 03/05/2017 13:39 [facility] COMPARISON: No previous studies available for comparison. INDICATIONS : Right pleural effusion. MEDICAL HISTORY : Hypercholesterolemia. Gastroesophageal reflux disease. Chronic obstructive pulmonary disease. Hypothy roidism. Myocardial infarction. Congestive heart failure.Atrial fibrillation. Hernia, hiatal. Hyperte nsion. Herpes. Arthritis. Diabetes. Depression. MRSA. Coronary artery disease. SURGICAL HISTORY : Bilateral cataract surgery. Cardiac catheterization. Coronary stent. back surgery. ENCOUNTER: Subsequent ACUITY: 1 day PAIN SCORE: 0/10 LOCATION: Right chest MEASUREMENTS: SKIN TO PARIETAL PLEURA: Inadequate fluid SKIN TO MAX SAFE DEPTH: Inadequate fluid ESTIMATED FLUID VOLUME: 95.6 cc FLUID COMPOSITION: Inadequate fluid FINDINGS: Small volume of right pleural fluid identified, estimated at less than 100 mL's. CONCLUSION: Small right effusion. Mango Sheets MD on March 05, 2017 at 14:23 Board Certified Radiologist. This report was verified electronically.
[2017-03-05 14:38] LABS: APTT (PATIENT) 49.9 SEC (24.3-30.1); INTERNATIONAL NORMALIZED RATIO 1.5 RATIO; PROTHROMBIN TIME - PATIENT 16.4 SEC (9.8-11.6)
[2017-03-05 14:48] LABS: BICARBONATE 39.4 MEQ/L (21.0-32.0); POTASSIUM 5.4 MEQ/L (3.5-5.1)
--- NOTE | 2017-03-05 15:04 | RADRPT ---
EXAM DATE/TIME: 03/05/2017 14:49 [facility] COMPARISON: No previous studies available for comparison. INDICATIONS : Shortness of breath. RADIATION DOSE: 5.41 CTDIvol (mGy) MEDICAL HISTORY : Cardiovascular disease. Congestive heart failure. Hypertension. SURGICAL HISTORY : CABG ENCOUNTER: Initial ACUITY: 1 day PAIN SCALE: 0/10 LOCATION: Bilateral chest TECHNIQUE: Volumetric scanning of the chest was performed. Using automated exposure control and adjustment of t he mA and/or kV according to patient size, radiation dose was kept as low as reasonably achievable to obtain optimal diagnostic quality images. DICOM format image data is available electronically for r eview and comparison. Follow-up recommendations for detected pulmonary nodules are based at a minimum on nodule size and pa tient risk factors according to Fleischner Society Guidelines. FINDINGS: LUNGS: There is significant consolidative change in the lung bases bilaterally, left worse than right. Patch y consolidative and groundglass infiltrate present elsewhere in the lungs. PLEURAE: Small right effusion. Small to moderate left effusion. MEDIASTINUM: Prominent cardiomegaly. No evidence of mediastinal mass. No pericardial effusion. Dense coronary calc ifications. Dilated distal esophagus which may related to prior gastric bypass surgery AXILLAE: Within normal limits. No lymphadenopathy. MUSCULOSKELETAL: Within normal limits for patient age. MISCELLANEOUS: The visualized upper abdominal organs demonstrate no acute abnormality. CONCLUSION: Bilateral infiltrates and effusions. Prominent cardiomegaly Mango Sheets MD on March 05, 2017 at 14:59 Board Certified Radiologist. This report was verified electronically.
[2017-03-05] MEDS: SODIUM POLYSTYRENE SULFONATE SUSP 15 GM/60 ML CUP PO SCH ×2 (16:06→21:00)
[2017-03-05] MEDS: FUROSEMIDE 40 MG/4 ML VIAL IV PUSH SCH (18:28)
[2017-03-05] MEDS ORDERED: INSULIN DETEMIR 100 UNITS/ML VIAL SQ SCH (21:00)
[2017-03-05] MEDS: FENOFIBRATE 145 MG TAB PO SCH (21:31)
[2017-03-05] MEDS: MIRTAZAPINE 15 MG TAB PO SCH (21:31)
[2017-03-05] MEDS: ATORVASTATIN 80 MG TAB PO SCH (21:31)
[2017-03-05] MEDS: INSULIN DETEMIR 100 UNITS/ML VIAL SQ SCH (21:32)
[2017-03-06] VITALS (26 sets, daily range): BP systolic 100–131; BP diastolic 52–73; PULSE 83–110; RESP 18–20; TEMP 97.2–98.2; O2SAT 90–96
[2017-03-06] MEDS: LEVOTHYROXINE SODIUM 150 MCG TAB PO SCH (04:58)
[2017-03-06] MEDS: hydrALAZINE HCL 25 MG TAB PO SCH ×3 (04:58→21:22)
[2017-03-06] MEDS: DILTIAZEM HCL 90 MG TAB PO SCH ×4 (04:59→23:51)
--- NOTE | 2017-03-06 08:17 | PD.CARD.PN ---
Subjective Subjective Remarks Improved from SOB anxious Objective Medications Current Medications Medications (Trade) Dose Ordered Sig/Seema Route Start Time Stop Time Status Last Admin Diltiazem HCl 125 mg/Sodium Chloride 125 ml @ 5 mls/hr TITRATE PRN IV 03/01/17 18:30 03/01/17 22:28 (D50w (Vial) Inj) 50 ml UNSCH PRN IV PUSH 03/01/17 21:15 (Glucagon Inj) 1 mg UNSCH PRN OTHER 03/01/17 21:15 (NovoLOG SUPPLEMENTAL SCALE) 1 ACHS SLIDING SCALE SQ 03/02/17 08:00 03/05/17 13:00 (Aspirin Chew) 81 mg DAILY PO 03/02/17 09:00 03/05/17 09:26 (Lipitor) 80 mg HS PO 03/01/17 21:00 03/05/17 21:31 (Apresoline) 25 mg Q8HR PO 03/01/17 22:00 03/06/17 04:58 (Synthroid) 150 mcg DAILY@0600 PO 03/02/17 06:00 03/06/17 04:58 (Cozaar) 50 mg DAILY PO 03/02/17 09:00 03/05/17 09:26 (Theragran M Tab) 1 tab DAILY PO 03/02/17 09:00 03/05/17 09:25 (Protonix) 40 mg DAILY PO 03/02/17 09:00 03/05/17 09:25 (Tricor) 145 mg HS PO 03/01/17 21:30 03/05/17 21:31 (Duoneb Neb) 1 ampule Q4HR NEB PRN NEB 03/01/17 22:00 (Cymbalta Dr) 90 mg DAILY PO 03/03/17 09:00 03/05/17 09:25 (Remeron) 15 mg HS PO 03/02/17 21:00 03/05/17 21:31 (Xanax) 0.25 mg Q8H PRN PO 03/02/17 15:45 03/05/17 20:10 (Cardizem) 90 mg Q6HR PO 03/03/17 12:00 03/06/17 04:59 (Xarelto) 15 mg DAILY PO 03/04/17 09:00 03/05/17 09:25 (Vistaril) 50 mg HS PRN PO 03/04/17 21:00 (Lasix Inj) 40 mg BID@09,18 IV PUSH 03/04/17 18:00 Future hold 03/05/17 18:28 (Kayexalate Liq) 15 gm BID PO 03/05/17 13:00 03/05/17 16:06 (Levemir Inj) 7 units Q12HR SQ 03/05/17 21:00 03/05/17 21:32 Vital Signs / I&O Vital Signs Date Time Temp Pulse Resp B/P (MAP) Pulse Ox O2 Delivery O2 Flow Rate FiO2 03/06/17 06:12 87 18 121/67 (85) 93 03/06/17 06:00 92 03/06/17 05:01 101 18 124/66 (85) 93 03/06/17 05:00 106 03/06/17 04:00 98 03/06/17 03:00 103 03/06/17 02:00 94 03/06/17 01:00 100 03/06/17 00:00 92 03/05/17 23:25 86 18 122/64 (83) 94 03/05/17 23:00 92 03/05/17 22:00 74 03/05/17 21:00 86 03/05/17 20:00 96 03/05/17 19:00 110 03/05/17 19:00 98.4 96 24 123/75 (91) 94 03/05/17 18:28 96 122/76 (91) 03/05/17 18:00 88 03/05/17 17:00 86 03/05/17 16:00 94 03/05/17 15:00 101 03/05/17 15:00 102 03/05/17 14:01 95 20 126/81 (96) 98 03/05/17 14:00 82 03/05/17 13:00 82 03/05/17 12:00 102 03/05/17 11:00 100 03/05/17 10:00 98 03/05/17 09:00 90 03/05/17 08:00 86 I/O 03/05/17 03/05/17 03/05/17 03/06/17 03/06/17 03/06/17 07:00 15:00 23:00 07:00 15:00 23:00 Intake Total 480 ml 700 ml 350 ml Output Total 850 ml 850 ml 1500 ml Balance -370 ml -150 ml -1150 ml Intake Oral 480 ml 600 ml 350 ml IV Total 100 ml Output Urine Total 850 ml 850 ml 1500 ml # Bowel Movements 1 Physical Exam GENERAL: Well-nourished, well-developed patient. SKIN: Warm and dry. HEAD: Normocephalic. EYES: No scleral icterus. No injection or drainage. NECK: Supple, trachea midline. No JVD or lymphadenopathy. CARDIOVASCULAR: Regular rate and rhythm without murmurs, gallops, or rubs. RESPIRATORY: Rales bilaterally GASTROINTESTINAL: Abdomen soft, non-tender, nondistended. EXTREMITIES: No cyanosis, or edema. NEUROLOGICAL: Awake, alert, and oriented x 3. Non-focal. Laboratory Laboratory Tests Test 03/05/17 07:42 03/05/17 14:19 D-Dimer Quantitative (PE/DVT) 1.47 MG/L FEU Prothrombin Time 16.4 SEC Prothromb Time International Ratio 1.5 RATIO Activated Partial Thromboplast Time 49.9 SEC Blood Urea Nitrogen 43 MG/DL Creatinine 1.51 MG/DL Random Glucose 165 MG/DL Calcium Level 9.7 MG/DL Sodium Level 134 MEQ/L Potassium Level 5.4 MEQ/L Chloride Level 92 MEQ/L Carbon Dioxide Level 39.4 MEQ/L Anion Gap 3 MEQ/L Estimat Glomerular Filtration Rate 34 ML/MIN Imaging Last Impressions Chest CT 03/05/17 1414 Signed Impressions: Service Date/Time: Sunday, March 05, 2017 14:49 - CONCLUSION: Bilateral infiltrates and effusions. Prominent cardiomegaly Mango Sheets MD Chest Ultrasound 03/05/17 1217 Signed Impressions: Service Date/Time: Sunday, March 05, 2017 13:39 - CONCLUSION: Small right effusion. Mango Sheets MD Chest X-Ray 03/05/17 0000 Signed Impressions: Service Date/Time: Sunday, March 05, 2017 12:33 - CONCLUSION: 1. Bilateral effusions, cardiomegaly and diffuse interstitial prominence most consistent with congestive failure. There are consolidative changes in the lung bases an underlying pneumonia cannot be excluded. Varun Alvarez MD Lower Extremity Ultrasound 03/01/17 0000 Signed Impressions: Service Date/Time: Wednesday, March 01, 2017 19:36 - CONCLUSION: No DVT. Mango Sheth MD Assessment and Plan Problem List: (1) Acute on chronic diastolic CHF (congestive heart failure) ICD Codes: I50.33 - Acute on chronic diastolic (congestive) heart failure Status: Acute Plan: Continue IV diuresis Strict I's and O's Daily weights Low-salt diet Continue losartan 50 mg daily 2Decho Consider thoracentesis or CT surgery consult (2) Afib ICD Codes: I48.91 - Unspecified atrial fibrillation Status: Resolved (3) COPD (chronic obstructive pulmonary disease) ICD Codes: J44.9 - Chronic obstructive pulmonary disease, unspecified Status: Chronic (4) HTN (hypertension) ICD Codes: I10 - Essential (primary) hypertension Status: Chronic (5) Hyperlipidemia ICD Codes: E78.5 - Hyperlipidemia, unspecified Status: Chronic Latha-Harsh Torres MD Mar 06, 2017 07:29
[2017-03-06 08:56] LABS: AUTOMATED NEUTROPHIL # 7.1 TH/MM3 (1.8-7.7); BASOPHIL # 0.1 TH/MM3 (0-0.2); BASOPHIL % 0.7 % (0.0-2.0); EOSINOPHIL # 0.1 TH/MM3 (0-0.4); EOSINOPHIL % 0.9 % (0.0-4.0); HEMATOCRIT 29.4 % (35.0-46.0); HEMO FLAGS DIFF FINAL; LYMPH % 2.2 % (9.0-44.0); LYMPHOCYTE # 0.2 TH/MM3 (1.0-4.8); MEAN CELL VOLUME 91.6 FL (80.0-100.0); MEAN CORPUSCULAR HEMOGLOBIN 29.1 PG (27.0-34.0); MEAN CORPUSCULAR HGB CONC 31.8 % (32.0-36.0); NEUT % 91.2 % (16.0-70.0); PLATELET COUNT 436 TH/MM3 (150-450); RED BLOOD COUNT 3.21 MIL/MM3 (4.00-5.30); WHITE BLOOD COUNT 7.8 TH/MM3 (4.0-11.0)
[2017-03-06 09:21] LABS: POTASSIUM 4.6 MEQ/L (3.5-5.1)
[2017-03-06] MEDS: RIVAROXABAN 15 MG TAB PO SCH (09:28)
[2017-03-06] MEDS: MULTIVITAMINS/MINERALS THERAPEUTIC TAB PO SCH (09:28)
[2017-03-06] MEDS: PANTOPRAZOLE SOD 40 MG DELAYED RELEASE TAB PO SCH (09:28)
[2017-03-06] MEDS: LOSARTAN 50 MG TAB PO SCH (09:28)
[2017-03-06] MEDS: ASPIRIN 81 MG CHEW TAB PO SCH (09:29)
[2017-03-06] MEDS: INSULIN DETEMIR 100 UNITS/ML VIAL SQ SCH ×2 (09:29→20:53)
[2017-03-06] MEDS: FUROSEMIDE 40 MG/4 ML VIAL IV PUSH SCH ×2 (09:29→17:39)
[2017-03-06] MEDS: INSULIN ASPART SUPPLEMENTAL SCALE SQ SCH ×4 (09:30→21:22)
[2017-03-06] MEDS: SODIUM POLYSTYRENE SULFONATE SUSP 15 GM/60 ML CUP PO SCH ×2 (09:31→20:53)
[2017-03-06] MEDS: ALPRAZolam 0.25 MG TAB PO PRN (09:31)
--- NOTE | 2017-03-06 12:11 | HHI.FPPN ---
Subjective Remarks This is a 76 yo white female with PMH of CHF, COPD, afib, anxiety who is here with an acute CHF exacerbation hospital day 6. Today the patient is sleepy and somnolent. She states that she "feels like someone slipped her a megha." She is able to arouse for conversation. She states that she is very "wobbly" with standing and she feels uncomfortable ambulating to the bathroom; she now has a bedside commode. She states that her breathing is improving but still worse than her baseline. She states that her swelling is "much better" and she has increased urination. (Jany Morris MD R2) Objective Vitals Vital Signs Date Time Temp Pulse Resp B/P (MAP) Pulse Ox O2 Delivery O2 Flow Rate FiO2 03/06/17 08:18 94 Nasal Cannula 3.00 03/06/17 06:12 87 18 121/67 (85) 93 03/06/17 06:00 92 03/06/17 05:01 101 18 124/66 (85) 93 03/06/17 05:00 106 03/06/17 04:00 98 03/06/17 03:00 103 03/06/17 02:00 94 03/06/17 01:00 100 03/06/17 00:00 92 03/05/17 23:25 86 18 122/64 (83) 94 03/05/17 23:00 92 03/05/17 22:00 74 03/05/17 21:00 86 03/05/17 20:00 96 03/05/17 19:00 110 03/05/17 19:00 98.4 96 24 123/75 (91) 94 03/05/17 18:28 96 122/76 (91) 03/05/17 18:00 88 03/05/17 17:00 86 03/05/17 16:00 94 03/05/17 15:00 101 03/05/17 15:00 102 03/05/17 14:01 95 20 126/81 (96) 98 03/05/17 14:00 82 03/05/17 13:00 82 I/O 03/05/17 03/05/17 03/05/17 03/06/17 03/06/17 03/06/17 07:00 15:00 23:00 07:00 15:00 23:00 Intake Total 480 ml 700 ml 350 ml Output Total 850 ml 850 ml 1500 ml Balance -370 ml -150 ml -1150 ml Intake Oral 480 ml 600 ml 350 ml IV Total 100 ml Output Urine Total 850 ml 850 ml 1500 ml # Bowel Movements 1 (Jany Morris MD R2) Result Diagram: 03/06/17 0810 03/06/17 0810 Imaging Last Impressions Chest CT 03/05/17 1414 Signed Impressions: Service Date/Time: Sunday, March 05, 2017 14:49 - CONCLUSION: Bilateral infiltrates and effusions. Prominent cardiomegaly Mango Sheets MD Chest Ultrasound 03/05/17 1217 Signed Impressions: Service Date/Time: Sunday, March 05, 2017 13:39 - CONCLUSION: Small right effusion. Mango Sheets MD Chest X-Ray 03/05/17 0000 Signed Impressions: Service Date/Time: Sunday, March 05, 2017 12:33 - CONCLUSION: 1. Bilateral effusions, cardiomegaly and diffuse interstitial prominence most consistent with congestive failure. There are consolidative changes in the lung bases an underlying pneumonia cannot be excluded. Varun Alvarez MD Lower Extremity Ultrasound 03/01/17 0000 Signed Impressions: Service Date/Time: Wednesday, March 01, 2017 19:36 - CONCLUSION: No DVT. Mango Sheth MD Objective Remarks GENERAL: In no acute distress, patient on nasal cannula and has no obvious difficulties breathing or carrying out conversation, the patient seems coherent and baseline SKIN: thin, ecchymoses on b/l upper extremities EYES: PERRLA NECK: JVD present CARDIOVASCULAR: Irregular rate and rhythm, distant heart sounds with 2/6 systolic murmur RESPIRATORY: diminished breath sound throughout, equal breath sounds throughout , no wheezing or rhonchi, soft crackles in the lower lobes (same as previous exams) GASTROINTESTINAL: Abdomen soft, non-tender, nondistended. + BS. No hepato- splenomegaly, or palpable masses. MUSCULOSKELETAL: 1+ pitting edema b/l to proximal tibia, improved from yesterday , no erythema or palpable veins. No calf tenderness. NEUROLOGICAL: Awake, alert, and oriented x3. (Jany Morris MD R2) A/P Assessment and Plan 76 yr old F admitted for acute on chronic diastolic CHF, ACS rule-out, Afib w/ RVR, and UTI Discharge Planning Pending clinical improvement (Jany Morris MD R2) Attending Attestation Pt. examined and case discussed with resident physicians I have read the above note and agree with the assessment/plan as discussed with me I was involved in all medical decision making for this patient Arya Perez MD (Arya Perez MD) Problem List: (1) Acute on chronic diastolic CHF (congestive heart failure) ICD Codes: I50.33 - Acute on chronic diastolic (congestive) heart failure Status: Acute Plan: Acute on chronic CHF exacerbation, minimal improvement on diuretics, possible cardiorenal syndrome, episode of hypoxemia - Consult Cardio recs: f/u echo (Review of echo from 08/2016 shows an ejection fraction of 50-60%) - Furosemide 40mg IV BID - continue losartan 50 mg daily - Creatinine: 1.24 (1.51) - f/u palliative care consult - Cont 1.5 L fluid restriction daily - Cont Strict I's and O's - Cont Daily weights - Cont Heart healthy/low-salt diet - Supplemental oxygen as needed OT: will be d/c to rehab center for 3-6weeks self storage manager consult to assist with patient medications on discharge - metoprolol held on admission -- per conversation with patient; she stated on admission that she was allergic to furosemide, however she thought she was allergic because when she came in on her last admission she was given furosemide and all of the fluid was diuresed and her potassium was low. It was discussed with the patient that this is not an allergy and furosemide might work better for her. This was removed from her allergy list. (2) Afib ICD Codes: I48.91 - Unspecified atrial fibrillation Status: Resolved Plan: Afib w/ RVR - heart rate in the [74-114] range - Continue Cardizem PO home medication - Metoprolol held 03/02/17: Troponins 3 - 0.19 - 0.10 - 0.18 03/02/17: EKG revealed afib but no sign of acute ischemia - Continue home xarelto - Aspirin 81mg PO daily (3) UTI (urinary tract infection) ICD Codes: N39.0 - Urinary tract infection Status: Resolved Plan: (03/01)) Patient complains of slight dysuria and urinary frequency. Hx of recurrent UTIs. UA showed large leukocyte esterases and bacteria Ucx: 50-100,000 colonies s/p Bactrim 100 BID x 3 days (4) Depression ICD Codes: F32.9 - Major depressive disorder, single episode, unspecified Status: Chronic Plan: -Psychiatry re-consulted due to somnolence -Cont Cymbalta 90mg - Decrease Remeron 15--> 7.5mg - d/c xanax PRN (5) Type 2 diabetes mellitus ICD Codes: E11.9 - Type 2 diabetes mellitus without complications Status: Chronic Plan: -Cont home detemir (7 in AM and 7 in PM) -Cont Low NovoLog sliding scale - f/u FS (6) COPD (chronic obstructive pulmonary disease) ICD Codes: J44.9 - Chronic obstructive pulmonary disease, unspecified Status: Chronic Plan: - 3.0L NC 94% -On home 2.5 L O2 -Refusing: DuoNeb breathing treatment PRN for SOB, pt states exacerbates her HF -Former smoker 3ppd x 30 years; quit smoking 30 years ago (7) HTN (hypertension) ICD Codes: I10 - Essential (primary) hypertension Status: Chronic Plan: -Continue home meds * Hydralazine HCl 25mg PO q8hr * Losartan 50mg PO daily (8) GERD (gastroesophageal reflux disease) ICD Codes: K21.9 - Gastro-esophageal reflux disease without esophagitis Status: Chronic Plan: -Continue home Pantoprazole 40 mg PO daily (9) Hyperlipidemia ICD Codes: E78.5 - Hyperlipidemia, unspecified Status: Chronic Plan: -Continue home Fenofibrate 160mg PO HS and Atorvastatin 80mg PO HS (10) Hypothyroidism ICD Codes: E03.9 - Hypothyroidism, unspecified Status: Chronic Plan: -Continue home levothyroxine 150 mcg PO daily (11) JULIANE (acute kidney injury) ICD Codes: N17.9 - Acute kidney failure, unspecified Status: Acute Plan: Creat 1.24 (1.51) Baseline 0.8 likely Cardiorenal syndrome ; see rx for CHF (12) Hyperkalemia ICD Codes: E87.5 - Hyperkalemia Status: Resolved Plan: K+ 4.6 - Monitor cardiac telemetry - Cont Calcium gluconate 1g IV daily - Continue home detemir (7 in AM and 7 in PM) - Continue diuresis with Furosemide 40mg IV BID - Pt refused: Kayexelate 15g BID Baseline k 3.8 Likely cell breakdown from severe resp acidosis - pCO2 70 (13) Elevated d-dimer ICD Codes: R79.89 - Other specified abnormal findings of blood chemistry Status: Acute Plan: Elevated at 1.47 - continue Xarelto Possibility of chronic OR acute PE discussed, however given Creatinine of 1.47, we will not preform CTA at this time. Diagnostic imaging for PE would not change our management as our patient is already on chronic anticoagulation (14) Nutrition, metabolism, and development symptoms ICD Codes: R63.8 - Other symptoms and signs concerning food and fluid intake Status: Acute Plan: Fluids: none Electrolytes: see management for hyperkalemia, JULIANE Diet: Heart Healthy, 1.5L daily fluid restriction, Other: Daily weights, Strict I& Os, vitals q4h DVTppx: SCDs b/l Consults: OT, PT, case management (Jany Morris MD R2) Jany Morris MD R2 Mar 06, 2017 12:11 Arya Perez MD Mar 06, 2017 13:35
[2017-03-06] MEDS: DULoxetine HCl DR 60 MG CAP PO SCH (12:51)
--- NOTE | 2017-03-06 13:07 | ECHRPT ---
Indication: cardiomyopathy CONCLUSIONS Normal left ventricular size. Wall thickness is measured at the upper limits of normal. The left ventricular systolic function is hyperdynamic with an estimated ejection fraction in the ra nge of 65- 70%. The left atrial size is cpjv-[id number] dilated. Mitral annular calcification is present. Moderate mitral valve regurgitation. Aortic valve sclerosis is present. Trace aortic valve regurgitation. There is mild to moderate tricuspid valve regurgitation. There is estimated mild pulmonary hypertension present (50 mmHg). A large left sided pleural effusion is noted. BP: / HR: Rhythm: MEASUREMENTS (Male / Female) Normal Values Technical Quality:Good 2D ECHO LV Diastolic Diameter PLAX 3.7 cm 4.2 - 5.9 / 3.9 - 5.3 cm LV Systolic Diameter PLAX 2.5 cm IVS Diastolic Thickness 1.6 cm 0.6 - 1.0 / 0.6 - 0.9 cm LVPW Diastolic Thickness 1.3 cm 0.6 - 1.0 / 0.6 - 0.9 cm LV Relative Wall Thickness 0.8 RV Internal Dim ED PLAX 1.8 cm LA Systolic Diameter LX 5.0 cm 3.0 - 4.0 / 2.7 - 3.8 cm M-MODE Aortic Root Diameter MM 3.0 cm AV Cusp Separation MM 1.9 cm DOPPLER AV Peak Velocity 200.0 cm/s AV Peak Gradient 16.0 mmHg AV Mean Gradient 8.0 mmHg AV Velocity Time Integral 42.7 cm LVOT Peak Velocity 95.9 cm/s LVOT Peak Gradient 3.7 mmHg LVOT Velocity Time Integral 22.8 cm MR Peak Velocity 528.0 cm/s MR Peak Gradient 111.5 mmHg Mitral E Point Velocity 118.0 cm/s Mitral A Point Velocity 50.0 cm/s Mitral E to A Ratio 2.4 TR Peak Velocity 314.0 cm/s TR Peak Gradient 39.4 mmHg Right Atrial Pressure 10.0 mmHg Pulmonary Artery Systolic Pressu 49.4 mmHg Right Ventricular Systolic Press 49.4 mmHg FINDINGS LEFT VENTRICLE Normal left ventricular size. Wall thickness is measured at the upper limits of normal. The left ventricular systolic function is hyperdynamic with an estimated ejection fraction in the ra nge of 65- 70%. RIGHT VENTRICLE Normal right ventricular size and systolic function. LEFT ATRIUM The left atrial size is [id number] dilated. RIGHT ATRIUM The right atrial size is normal. ATRIAL SEPTUM Normal atrial septal thickness without atrial level shunting by limited color doppler interrogation. AORTA The aortic root and proximal ascending aorta are normal in size on limited imaging. MITRAL VALVE Mitral annular calcification is present. Moderate mitral valve regurgitation. AORTIC VALVE Aortic valve sclerosis is present. Trace aortic valve regurgitation. TRICUSPID VALVE There is mild to moderate tricuspid valve regurgitation. There is estimated mild pulmonary hypertension present (50 mmHg). PULMONARY VALVE No pulmonary valve regurgitation or stenosis. VESSELS The inferior vena cava is normal in size. PERICARDIUM A large left sided pleural effusion is noted. Harsh Mckeon MD (Electronically Signed) Final Date:06 March 2017 13:06
[2017-03-06] MEDS ORDERED: PILL SPLITTER OTHER PRN (14:15)
[2017-03-06] MEDS: CALCIUM GLUCONATE INJ 1 GM in SODIUM CHLORIDE 0.9% INJ 100 ML IV SCH (15:50)
[2017-03-06] MEDS: ATORVASTATIN 80 MG TAB PO SCH (20:53)
[2017-03-06] MEDS: FENOFIBRATE 145 MG TAB PO SCH (20:53)
[2017-03-06] MEDS: MIRTAZAPINE 15 MG TAB PO SCH (20:53)
[2017-03-07] VITALS (27 sets, daily range): BP systolic 115–139; BP diastolic 60–75; PULSE 70–102; RESP 16–20; TEMP 97.8–98.4; O2SAT 93–100
[2017-03-07] MEDS: DILTIAZEM HCL 90 MG TAB PO SCH ×3 (04:53→16:53)
[2017-03-07] MEDS: hydrALAZINE HCL 25 MG TAB PO SCH ×3 (04:53→21:33)
[2017-03-07] MEDS: LEVOTHYROXINE SODIUM 150 MCG TAB PO SCH (04:53)
[2017-03-07 06:53] LABS: AUTOMATED NEUTROPHIL # 5.6 TH/MM3 (1.8-7.7); BASOPHIL # 0.1 TH/MM3 (0-0.2); BASOPHIL % 0.8 % (0.0-2.0); EOSINOPHIL # 0.1 TH/MM3 (0-0.4); EOSINOPHIL % 1.5 % (0.0-4.0); HEMATOCRIT 29.1 % (35.0-46.0); HEMO FLAGS DIFF FINAL; LYMPH % 8.4 % (9.0-44.0); LYMPHOCYTE # 0.6 TH/MM3 (1.0-4.8); MEAN CELL VOLUME 91.5 FL (80.0-100.0); MEAN CORPUSCULAR HEMOGLOBIN 29.5 PG (27.0-34.0); MEAN CORPUSCULAR HGB CONC 32.2 % (32.0-36.0); MONO % 7.4 % (0.0-8.0); NEUT % 81.9 % (16.0-70.0); PLATELET COUNT 458 TH/MM3 (150-450); RED BLOOD COUNT 3.17 MIL/MM3 (4.00-5.30); RED CELL DISTRIBUTION WIDTH 16.9 % (11.6-17.2); WHITE BLOOD COUNT 6.9 TH/MM3 (4.0-11.0)
[2017-03-07 07:33] LABS: BICARBONATE 42.3 MEQ/L (21.0-32.0); POTASSIUM 4.4 MEQ/L (3.5-5.1)
[2017-03-07] MEDS: INSULIN ASPART SUPPLEMENTAL SCALE SQ SCH ×4 (07:44→21:00)
[2017-03-07] MEDS: SODIUM POLYSTYRENE SULFONATE SUSP 15 GM/60 ML CUP PO SCH ×2 (08:04→21:00)
[2017-03-07] MEDS: ASPIRIN 81 MG CHEW TAB PO SCH (09:02)
[2017-03-07] MEDS: MULTIVITAMINS/MINERALS THERAPEUTIC TAB PO SCH (09:02)
[2017-03-07] MEDS: RIVAROXABAN 15 MG TAB PO SCH (09:02)
[2017-03-07] MEDS: DULoxetine HCl DR 60 MG CAP PO SCH (09:02)
[2017-03-07] MEDS: LOSARTAN 50 MG TAB PO SCH (09:02)
[2017-03-07] MEDS: PANTOPRAZOLE SOD 40 MG DELAYED RELEASE TAB PO SCH (09:02)
[2017-03-07] MEDS: INSULIN DETEMIR 100 UNITS/ML VIAL SQ SCH ×2 (09:02→21:00)
[2017-03-07] MEDS: CALCIUM GLUCONATE INJ 1 GM in SODIUM CHLORIDE 0.9% INJ 100 ML IV SCH (09:02)
[2017-03-07] MEDS: FUROSEMIDE 40 MG/4 ML VIAL IV PUSH SCH (09:03)
--- NOTE | 2017-03-07 09:40 | HHI.FPPN ---
Subjective Remarks No acute events overnight. Afebrile and vital signs stable overnight. Patient reports that she feels the best she has felt since this admission. She reports that she actually got some sleep last night and feels that her breathing is improved today. (Nadir Fletcher MD R2) Objective Vitals Vital Signs Date Time Temp Pulse Resp B/P (MAP) Pulse Ox O2 Delivery O2 Flow Rate FiO2 03/07/17 08:00 97.8 90 16 134/70 (91) 100 03/07/17 08:00 89 03/07/17 07:17 Nasal Cannula 2.00 03/07/17 07:00 88 03/07/17 06:00 81 03/07/17 05:00 92 03/07/17 04:00 98.1 98 18 139/73 (95) 97 03/07/17 04:00 Nasal Cannula 2.00 03/07/17 04:00 98 03/07/17 03:00 89 03/07/17 02:02 93 Nasal Cannula 4.00 03/07/17 02:00 90 03/07/17 01:00 91 03/07/17 00:00 Nasal Cannula 3.00 03/07/17 00:00 98.4 99 18 131/60 (83) 97 03/07/17 00:00 99 03/06/17 23:00 89 03/06/17 22:00 92 03/06/17 21:00 87 03/06/17 20:00 90 03/06/17 20:00 98.0 90 18 100/52 (68) 96 03/06/17 20:00 Nasal Cannula 3.00 03/06/17 18:00 88 03/06/17 17:00 90 03/06/17 16:00 84 03/06/17 15:00 97.2 90 18 113/68 (83) 90 03/06/17 15:00 100 03/06/17 14:00 98 03/06/17 13:00 96 03/06/17 12:00 98 03/06/17 11:00 108 03/06/17 11:00 98.2 95 20 123/70 (87) 96 03/06/17 10:00 110 I/O 03/06/17 03/06/17 03/06/17 03/07/17 03/07/17 03/07/17 07:00 15:00 23:00 07:00 15:00 23:00 Intake Total 350 ml 570 ml 240 ml Output Total 1500 ml 1200 ml 1200 ml Balance -1150 ml -630 ml -960 ml Intake Oral 350 ml 460 ml 240 ml IV Total 110 ml Output Urine Total 1500 ml 1200 ml 1200 ml # Bowel Movements 1 2 3 (Nadir Fletcher MD R2) Result Diagram: 03/07/17 0505 03/07/17 0505 Imaging Last Impressions Chest CT 03/05/17 1414 Signed Impressions: Service Date/Time: Sunday, March 05, 2017 14:49 - CONCLUSION: Bilateral infiltrates and effusions. Prominent cardiomegaly Mango Sheets MD Chest Ultrasound 03/05/17 1217 Signed Impressions: Service Date/Time: Sunday, March 05, 2017 13:39 - CONCLUSION: Small right effusion. Mango Sheets MD Chest X-Ray 03/05/17 0000 Signed Impressions: Service Date/Time: Sunday, March 05, 2017 12:33 - CONCLUSION: 1. Bilateral effusions, cardiomegaly and diffuse interstitial prominence most consistent with congestive failure. There are consolidative changes in the lung bases an underlying pneumonia cannot be excluded. Varun Alvarez MD Lower Extremity Ultrasound 03/01/17 0000 Signed Impressions: Service Date/Time: Wednesday, March 01, 2017 19:36 - CONCLUSION: No DVT. Mango Sheth MD Objective Remarks GENERAL: In no acute distress, patient on nasal cannula and has no obvious difficulties breathing or carrying out conversation, the patient seems coherent and at baseline SKIN: thin, ecchymoses on b/l upper extremities EYES: PERRL, no injection or icterus NECK: JVD present CARDIOVASCULAR: Irregular rate and rhythm, distant heart sounds with 2/6 systolic murmur RESPIRATORY: Absent breath sounds over left lung base, and inspiratory crackles/ rales over right lung base. Upper lung bautista equal. GASTROINTESTINAL: Abdomen soft, non-tender, nondistended. + BS. No hepato- splenomegaly, or palpable masses. MUSCULOSKELETAL: 2+ pitting edema in left leg to knee, trace pitting edema of right leg, improved from yesterday, no erythema or warmth. No calf tenderness. NEUROLOGICAL: Awake, alert, and oriented x3. (Nadir Fletcher MD R2) A/P Assessment and Plan 76 yr old F admitted for acute on chronic diastolic CHF, ACS rule-out, Afib w/ RVR, and UTI Discharge Planning Pending clinical improvement (Nadir Fletcher MD R2) Attending Attestation Pt. examined and case discussed with resident physicians. I have read the above note and agree with the assessment and plan as discussed with me. I was involved in all medical decision making for this patient. Arya Perez MD (Arya Perez MD) Problem List: (1) Acute on chronic diastolic CHF (congestive heart failure) ICD Codes: I50.33 - Acute on chronic diastolic (congestive) heart failure Status: Acute Plan: Acute on chronic CHF exacerbation, minimal improvement on diuretics, possible cardiorenal syndrome, episode of hypoxemia - Consult Cardio recs: f/u echo (echocardiogram shows left ventricular systolic function is hyperdynamic with an estimated ejection fraction the range of 65-70% .) - transition from IV to PO Lasix (Furosemide 40mg IV BID to furosemide 80 mg by mouth twice a day) - continue losartan 50 mg daily - Creatinine today: 1.17, which is improved - palliative care consult appreciated - Cont 1.5 L fluid restriction daily - Cont Strict I's and O's - Cont Daily weights - Cont Heart healthy/low-salt diet - Supplemental oxygen as needed - PT and OT at rehab - financial center manager consult to assist with placement and patient medications on discharge - metoprolol held on admission -- per conversation with patient; she stated on admission that she was allergic to furosemide, however she thought she was allergic because when she came in on her last admission she was given furosemide and all of the fluid was diuresed and her potassium was low. It was discussed with the patient that this is not an allergy and furosemide might work better for her. This was removed from her allergy list. (2) Afib ICD Codes: I48.91 - Unspecified atrial fibrillation Status: Chronic Plan: Afib w/ RVR - heart rate in the [80s-102] range - Continue Cardizem PO home medication - Metoprolol held - Continue home xarelto - Aspirin 81mg PO daily 03/02/17: Troponins 3 - 0.19 - 0.10 - 0.18 03/02/17: EKG revealed afib but no sign of acute ischemia (3) Depression ICD Codes: F32.9 - Major depressive disorder, single episode, unspecified Status: Chronic Plan: -Psychiatry re-consulted due to somnolence -Cont Cymbalta 90mg - Decrease Remeron 15--> 7.5mg - d/c xanax PRN (4) Type 2 diabetes mellitus ICD Codes: E11.9 - Type 2 diabetes mellitus without complications Status: Chronic Plan: -Cont home detemir (7 in AM and 7 in PM) -Cont Low NovoLog sliding scale (5) COPD (chronic obstructive pulmonary disease) ICD Codes: J44.9 - Chronic obstructive pulmonary disease, unspecified Status: Chronic Plan: on 2L/m NC satting 97-100% -On home 2.5 L/m O2 -Pt refused DuoNeb breathing treatment PRN for SOB, pt states exacerbates her HF -Former smoker 3ppd x 30 years; quit smoking 30 years ago (6) HTN (hypertension) ICD Codes: I10 - Essential (primary) hypertension Status: Chronic Plan: -Continue home meds * Hydralazine HCl 25mg PO q8hr * Losartan 50mg PO daily (7) GERD (gastroesophageal reflux disease) ICD Codes: K21.9 - Gastro-esophageal reflux disease without esophagitis Status: Chronic Plan: -Continue home Pantoprazole 40 mg PO daily (8) Hyperlipidemia ICD Codes: E78.5 - Hyperlipidemia, unspecified Status: Chronic Plan: -Continue home Fenofibrate 160mg PO HS and Atorvastatin 80mg PO HS (9) Hypothyroidism ICD Codes: E03.9 - Hypothyroidism, unspecified Status: Chronic Plan: -Continue home levothyroxine 150 mcg PO daily (10) JULIANE (acute kidney injury) ICD Codes: N17.9 - Acute kidney failure, unspecified Status: Acute Plan: Creat 1.17 (p/w Cr of 1.51) Baseline 0.8 likely Cardiorenal syndrome; see A/P for CHF (11) Elevated d-dimer ICD Codes: R79.89 - Other specified abnormal findings of blood chemistry Status: Acute Plan: Elevated at 1.47 - continue Xarelto Possibility of chronic OR acute PE discussed, however given Creatinine of 1.47, we will not preform CTA at this time. Diagnostic imaging for PE would not change our management as our patient is already on chronic anticoagulation (12) Nutrition, metabolism, and development symptoms ICD Codes: R63.8 - Other symptoms and signs concerning food and fluid intake Status: Acute Plan: Fluids: none Electrolytes: CTM Diet: Heart Healthy, 1.5L daily fluid restriction, Other: Daily weights, Strict I& Os, vitals q4h DVTppx: Geno Valencia b/l Consults: OT, PT, case management (Nadir Fletcher MD R2) Nadir Fletcher MD R2 Mar 07, 2017 09:40 Arya Perez MD Mar 07, 2017 21:11
--- NOTE | 2017-03-07 10:20 | PD.CONS ---
Consult Service Palliative Care Consult Requested By Dr. Morris. . Primary Care Physician Remigio Lee DO . Reason for Consultation a. To assist with evaluation and management of symptoms including: dyspnea and debility b. To assist medical decision maker(s) with: better understanding of current medical conditions; weighing benefits/burdens of medical treatment options; making medical treatment decisions. . HPI History of Present Illness Patient is a 76 year old female who presented to the ED via [facility] on 03/01/17 for evaluation of worsening shortness of breath and generalized weakness. The patient reported she has had difficulty obtaining all of her medications due to financial hardship and has been noncompliant with her medications for the past week. * ED workup: Laboratory data: Hgb 10.2, Hct 31.1, Carbon dioxide 32.6, Total Protein 7.9, Albumin 3.3 L, Calcium Level 9.5, Magnesium Level 1.8, Alkaline Phosphatase 148 H, Total Bilirubin 1.3 H, troponin 0.19, BNP 519, TSH 10.8. U/A : Positive bacteria and large leukocyte esterases. ECG: Atrial fibrillation with rapid ventricular response. Patient received Cardizem bolus, placed on Cardizem drip. CXR: Diffuse consolidation and bilateral pleural effusions likely representing diffuse processes such as edema/CHF versus diffuse infection. Cardiomegaly. Lower extremity U/S: Negative for DVT. Patient admitted for acute on chronic CHF, A. fib, UTI, and COPD. * 03/02/17: Psychiatry consult, for evaluation of depression, adjustments made to patient's antidepressants, Cymbalta increased to 90 mg, trazodone 50 mg switch to Remeron 15 mg daily at bedtime, patient did not meet criteria for inpatient psychiatric admission. * 03/03/17: Follow-up chest CXR: Cardiomegaly with diffuse increased parenchymal density and suspected bilateral effusions related to CHF. Underlying inflammatory process cannot be excluded. Patient diuresed with 1 mg Bumex IV twice a day. Cardiology consulted to rule out cardiorenal syndrome. * 03/04/17: Cardiology evaluated patient, continue IV diuresis, consider cardiothoracic surgery evaluation versus thoracentesis for recurrent pleural effusions. * 03/05/17: Despite diuresis patient having ongoing issues with shortness of breath. Halicat called due to hypoxia, status post CXR, EKG, ABG, d-dimer ordered. Follow-up chest CXR: Advanced cardiomegaly with bilateral effusions and diffuse infiltrates suggesting congestive failure. An underlying pneumonia cannot be excluded. Changes have mildly worsened compared to previous data. ABG: PH: 7.35, PCO2: 70, PO2 87, HCO3: 37, patient on 15 L nonrebreather. D- dimer: 1.47. Chest CT: Bilateral infiltrates and effusions. Prominent cardiomegaly. * 03/06/17: Follow-up echocardiogram: EF 65-70%, aortic stenosis, mild pulmonary hypertension 50mmHg. Palliative care consulted to review goals of care with patient, patient has voiced frustrations with her ongoing medical issues since her CABG procedure last year. Patient examined in room, sitting on the side of the bed eating breakfast, alert and oriented 3, very pleasant. Patient endorses that her shortness of breath has improved. Patient reports being tired of her illness, needing constant thoracenteses, patient states "I want to enjoy what time I have left". She states recently due to her illness her quality of life has been poor and she is no longer able to grocery shop independently. Palliative care was consult to assist with symptom management, as well as to discuss with the patient goals of care, the benefits/burdens of her current illnesses, and options regarding future care. Function/Cognitive Trajectory Patient was fully independent prior to CABG in February 2016. Patient has been experiencing a progressive functional decline since February 2016, multiple acute hospitalizations within the past year, requiring over 10 thoracenteses for recurrent pleural effusions, CHF exacerbations, and COPD. Patient O2 dependent at home, 2.5 L 24 hours a day. No assistance with ADLs prior to this hospitalization, but requiring assistance with household/cleaning/grocery shopping. No cognitive decline reported. . Review of Systems Constitutional: COMPLAINS OF: Fatigue, Weight loss (lost 90 pounds in the past 8 months), Generalized weakness, Sleep problems, DENIES: Fever, Chills Endocrine: COMPLAINS OF: Polydipsia Eyes: DENIES: Vision loss Respiratory: COMPLAINS OF: Shortness of breath Cardiovascular: COMPLAINS OF: Dyspnea on Exertion, Lower Extremity Edema, Orthopnea, DENIES: Chest pain Gastrointestinal: DENIES: Constipation, Nausea, Vomiting, Difficulty Swallowing Genitourinary: COMPLAINS OF: Urinary frequency, Dysuria Integumentary: COMPLAINS OF: Non-healing sores Psychiatric: COMPLAINS OF: Depression, DENIES: Suicidal Ideation Past Family Social History Coded Allergies: erythromycin base (Unverified Allergy, Unknown, 01/11/17) penicillin G (Unverified Allergy, Unknown, 01/11/17) Past Medical History Hypothyroidism Coronary artery disease status post stent placement in 2007 and coronary artery bypass graft 01 March 2016 Congestive heart failure Hyperlipidemia Arthritis Diabetes mellitus Atrial fibrillation on Xarelto Hypertension COPD on home oxygen 2.5L 24 hours a day GERD Depression Recurrent pleural effusions Past Surgical History CABG 3 in February 2016 Gastric bypass 2010 Back surgery Bilateral cataract surgery Coronary stent placed 2007 . Reported Medications Reported Meds & Active Scripts Active Xarelto (Rivaroxaban) 10 Mg Tab 20 Mg PO DAILY 30 Days Levemir Inj (Insulin Detemir) 1,000 unit/ 10 ML Vial 15 Units SQ HS [address] (Duloxetine HCl) 60 Mg Capdr 60 Mg PO DAILY 30 Days Metoprolol Tartrate 25 Mg Tab 25 Mg PO Q12HR Trazodone (Trazodone HCl) 50 Mg Tab 50 Mg PO HS 30 Days Pantoprazole (Pantoprazole Sodium) 40 Mg Tab 40 Mg PO DAILY 30 Days Thera M Plus (Multivitamins/Minerals Therapeutic) 1 Tab 1 Tab PO DAILY 30 Days Aspirin Low Strength (Aspirin) 81 Mg Chew 81 Mg PO DAILY 30 Days Reported Losartan (Losartan Potassium) 50 Mg Tab 50 Mg PO DAILY Bumetanide 1 Mg Tab 1 Mg PO BID Potassium Chloride ER (Potassium Chloride) 20 Meq Tab 20 Meq PO DAILY Hydralazine HCl 25 Mg Tablet 25 Mg PO Q8HR Ergocalciferol 50,000 Unit Cap 50,000 Units PO Q7D ON MONDAYS Atorvastatin (Atorvastatin Calcium) 80 Mg Tab 80 Mg PO HS Diltiazem (Diltiazem HCl) 90 Mg Tab 90 Mg PO QID Before meals and at bedtime Novolog Inj (Insulin Aspart) 1,000 Unit/10 Ml Vial 2-10 Units SQ ACHS Sliding Scale Valtrex (Valacyclovir HCl) 1 Gm Tab 1 Gm PO HS Cyanocobalamin Inj (Cyanocobalamin) 1,000 Mcg/Ml Inj 1,000 Mcg IM EVERY 2 WEEKS Levothyroxine (Levothyroxine Sodium) 150 Mcg Tab 150 Mcg PO DAILY@0600 Fenofibrate 160 Mg Tab 160 Mg PO HS . Current Medications Medications (Trade) Dose Ordered Sig/Seema Route Start Time Stop Time Status Last Admin Diltiazem HCl 125 mg/Sodium Chloride 125 ml @ 5 mls/hr TITRATE PRN IV 03/01/17 18:30 03/01/17 22:28 (D50w (Vial) Inj) 50 ml UNSCH PRN IV PUSH 03/01/17 21:15 (Glucagon Inj) 1 mg UNSCH PRN OTHER 03/01/17 21:15 (NovoLOG SUPPLEMENTAL SCALE) 1 ACHS SLIDING SCALE SQ 03/02/17 08:00 03/06/17 21:22 (Aspirin Chew) 81 mg DAILY PO 03/02/17 09:00 03/07/17 09:02 (Lipitor) 80 mg HS PO 03/01/17 21:00 03/06/17 20:53 (Apresoline) 25 mg Q8HR PO 03/01/17 22:00 03/07/17 04:53 (Synthroid) 150 mcg DAILY@0600 PO 03/02/17 06:00 03/07/17 04:53 (Cozaar) 50 mg DAILY PO 03/02/17 09:00 03/07/17 09:02 (Theragran M Tab) 1 tab DAILY PO 03/02/17 09:00 03/07/17 09:02 (Protonix) 40 mg DAILY PO 03/02/17 09:00 03/07/17 09:02 (Tricor) 145 mg HS PO 03/01/17 21:30 03/06/17 20:53 (Duoneb Neb) 1 ampule Q4HR NEB PRN NEB 03/01/17 22:00 (Cymbalta Dr) 90 mg DAILY PO 03/03/17 09:00 03/07/17 09:02 (Xanax) 0.25 mg Q8H PRN PO 03/02/17 15:45 Future Hold 03/06/17 09:31 (Cardizem) 90 mg Q6HR PO 03/03/17 12:00 03/07/17 04:53 (Xarelto) 15 mg DAILY PO 03/04/17 09:00 03/07/17 09:02 (Vistaril) 50 mg HS PRN PO 03/04/17 21:00 (Lasix Inj) 40 mg BID@18 IV PUSH 03/04/17 18:00 Future hold 03/07/17 09:03 (Kayexalate Liq) 15 gm BID PO 03/05/17 13:00 03/06/17 20:53 (Levemir Inj) 7 units Q12HR SQ 03/05/17 21:00 03/07/17 09:02 Calcium Gluconate 1 gm/Sodium Chloride 110 ml @ 110 mls/hr DAILY IV 03/06/17 14:00 03/07/17 09:02 (Remeron) 7.5 mg HS PO 03/06/17 21:00 03/06/17 20:53 (Pill Splitter) 1 ea UNSCH PRN OTHER 03/06/17 14:15 . Family History Father from myocardial infarction Mother from myocardial infarction Son committed suicide 2 years ago . Substance Use Tobacco:Quit smoking 30 years ago; smoked 3 ppd previously for 30 years. Alcohol: Occasional. Prescription med abuse: None reported. Illicits: None reported. . Psychosocial History Patient is originally from [place]. Both her mother and father are ; both from myocardial infarction. Patient has 1 brother (Valentin) who lives in [place]. She states she and her brother have a "horrible" relationship. Patient was for 7 years and in 1972; she never remarried. She had one son (Mo) who committed suicide 2 years ago when he was approximately 45 years old. It was recently the second anniversary of his , and the patient states it has been very difficult. She was very close to her son. Patient recently moved to [place]. . 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 . Health Care Surrogate: Copy in medical record Date completed: 09/14/16 . Health Care Surrogate(s): Melody Pantoja (friend) [phone] . Ethical and Legal Issues None known. . Physical Exam Vital Signs Date Time Temp Pulse Resp B/P (MAP) Pulse Ox O2 Delivery O2 Flow Rate FiO2 03/07/17 08:00 97.8 90 16 134/70 (91) 100 03/07/17 08:00 89 03/07/17 07:17 Nasal Cannula 2.00 03/07/17 07:00 88 03/07/17 06:00 81 03/07/17 05:00 92 03/07/17 04:00 98.1 98 18 139/73 (95) 97 03/07/17 04:00 Nasal Cannula 2.00 03/07/17 04:00 98 03/07/17 03:00 89 03/07/17 02:02 93 Nasal Cannula 4.00 03/07/17 02:00 90 03/07/17 01:00 91 03/07/17 00:00 Nasal Cannula 3.00 03/07/17 00:00 98.4 99 18 131/60 (83) 97 03/07/17 00:00 99 03/06/17 23:00 89 03/06/17 22:00 92 03/06/17 21:00 87 03/06/17 20:00 90 03/06/17 20:00 98.0 90 18 100/52 (68) 96 03/06/17 20:00 Nasal Cannula 3.00 03/06/17 18:00 88 03/06/17 17:00 90 03/06/17 16:00 84 03/06/17 15:00 97.2 90 18 113/68 (83) 90 03/06/17 15:00 100 03/06/17 14:00 98 03/06/17 13:00 96 03/06/17 12:00 98 03/06/17 11:00 108 03/06/17 11:00 98.2 95 20 123/70 (87) 96 . Exam CONSTITUTIONAL/GENERAL: This is a thin elderly female patient, in no apparent distress. TUBES/LINES/DRAINS: PIV 1 SKIN: No jaundice, rashes, or lesions. Ecchymoses on upper extremities. Skin temperature appropriate. Not diaphoretic. HEAD: Atraumatic. Normocephalic. EYES: Pupils equal and round and reactive. Extraocular motions intact. No scleral icterus. No injection or drainage. Fundi not examined. ENT: Hearing grossly normal. Nose without bleeding or purulent drainage. Throat without visible erythema, exudates, masses, or lesions. NECK: Trachea midline. Supple, nontender. CARDIOVASCULAR: Irregular rate and rhythm. Murmur. No JVD. Peripheral pulses symmetric. RESPIRATORY/CHEST: Symmetric, unlabored respirations. Diminished breath sounds bilaterally. GASTROINTESTINAL: Abdomen soft, non-tender, nondistended. No guarding. Bowel sounds present. GENITOURINARY: Without palpable bladder distension. MUSCULOSKELETAL: Extremities without clubbing, cyanosis, or edema. No mottling or clubbing. NEUROLOGICAL: Awake and alert. Motor and sensory grossly within normal limits. Follows commands. Cognitively sharp. Moves all extremities. PSYCHIATRIC: No obvious anxiety/depression. no apparent hallucinations or other psychotic thought process. . Diagnostic Tests Laboratory Laboratory Tests Test 03/05/17 03:47 03/05/17 06:40 03/05/17 07:42 03/05/17 14:19 White Blood Count 9.5 TH/MM3 (4.0-11.0) Red Blood Count 3.15 MIL/MM3 (4.00-5.30) Hemoglobin 9.5 GM/DL (11.6-15.3) Hematocrit 29.3 % (35.0-46.0) Mean Corpuscular Volume 92.9 FL (80.0-100.0) Mean Corpuscular Hemoglobin 30.2 PG (27.0-34.0) Mean Corpuscular Hemoglobin Concent 32.5 % (32.0-36.0) Red Cell Distribution Width 18.1 % (11.6-17.2) Platelet Count 417 TH/MM3 (150-450) Mean Platelet Volume 8.1 FL (7.0-11.0) Neutrophils (%) (Auto) 89.5 % (16.0-70.0) Lymphocytes (%) (Auto) 3.2 % (9.0-44.0) Monocytes (%) (Auto) 5.8 % (0.0-8.0) Eosinophils (%) (Auto) 0.6 % (0.0-4.0) Basophils (%) (Auto) 0.9 % (0.0-2.0) Neutrophils # (Auto) 8.5 TH/MM3 (1.8-7.7) Lymphocytes # (Auto) 0.3 TH/MM3 (1.0-4.8) Monocytes # (Auto) 0.6 TH/MM3 (0-0.9) Eosinophils # (Auto) 0.1 TH/MM3 (0-0.4) Basophils # (Auto) 0.1 TH/MM3 (0-0.2) CBC Comment DIFF FINAL Differential Comment Blood Urea Nitrogen 42 MG/DL (7-18) 43 MG/DL (7-18) Creatinine 1.47 MG/DL (0.50-1.00) 1.51 MG/DL (0.50-1.00) Random Glucose 125 MG/DL (74-106) 165 MG/DL (74-106) Calcium Level 10.0 MG/DL (8.5-10.1) 9.7 MG/DL (8.5-10.1) Sodium Level 135 MEQ/L (136-145) 134 MEQ/L (136-145) Potassium Level 5.9 MEQ/L (3.5-5.1) 5.4 MEQ/L (3.5-5.1) Chloride Level 92 MEQ/L (98-107) 92 MEQ/L (98-107) Carbon Dioxide Level 39.7 MEQ/L (21.0-32.0) 39.4 MEQ/L (21.0-32.0) Anion Gap 3 MEQ/L (5-15) 3 MEQ/L (5-15) Estimat Glomerular Filtration Rate 35 ML/MIN (>89) 34 ML/MIN (>89) B-Type Natriuretic Peptide 267 PG/ML (0-100) Blood Gas Puncture Site RT RADIAL Blood Gas Patient Temperature 98.6 Blood Gas HCO3 37 mmol/L (22-26) Blood Gas Base Excess 11.3 mmol/L (-2-2) Blood Gas Oxygen Saturation 92 % (90-100) Arterial Blood pH 7.35 (7.380-7.420) Arterial Blood Partial Pressure CO2 70 mmHg (38-42) Arterial Blood Partial Pressure O2 87 mmHg (61-120) Arterial Blood Oxygen Content 12.1 Vol % (12.0-20.0) Arterial Blood Carboxyhemoglobin 2.0 % (0-4) Arterial Blood Methemoglobin 1.5 % (0-2) Blood Gas Hemoglobin 9.2 G/DL (12.0-16.0) Oxygen Delivery Device NRB Blood Gas Liter Flow 15 L/M Blood Gas Inspired Oxygen 100 % D-Dimer Quantitative (PE/DVT) 1.47 MG/L FEU (0.00-0.50) Prothrombin Time 16.4 SEC (9.8-11.6) Prothromb Time International Ratio 1.5 RATIO Activated Partial Thromboplast Time 49.9 SEC (24.3-30.1) Test 03/06/17 08:10 03/07/17 05:05 White Blood Count 7.8 TH/MM3 (4.0-11.0) 6.9 TH/MM3 (4.0-11.0) Red Blood Count 3.21 MIL/MM3 (4.00-5.30) 3.17 MIL/MM3 (4.00-5.30) Hemoglobin 9.3 GM/DL (11.6-15.3) 9.4 GM/DL (11.6-15.3) Hematocrit 29.4 % (35.0-46.0) 29.1 % (35.0-46.0) Mean Corpuscular Volume 91.6 FL (80.0-100.0) 91.5 FL (80.0-100.0) Mean Corpuscular Hemoglobin 29.1 PG (27.0-34.0) 29.5 PG (27.0-34.0) Mean Corpuscular Hemoglobin Concent 31.8 % (32.0-36.0) 32.2 % (32.0-36.0) Red Cell Distribution Width 17.0 % (11.6-17.2) 16.9 % (11.6-17.2) Platelet Count 436 TH/MM3 (150-450) 458 TH/MM3 (150-450) Mean Platelet Volume 8.3 FL (7.0-11.0) 8.4 FL (7.0-11.0) Neutrophils (%) (Auto) 91.2 % (16.0-70.0) 81.9 % (16.0-70.0) Lymphocytes (%) (Auto) 2.2 % (9.0-44.0) 8.4 % (9.0-44.0) Monocytes (%) (Auto) 5.0 % (0.0-8.0) 7.4 % (0.0-8.0) Eosinophils (%) (Auto) 0.9 % (0.0-4.0) 1.5 % (0.0-4.0) Basophils (%) (Auto) 0.7 % (0.0-2.0) 0.8 % (0.0-2.0) Neutrophils # (Auto) 7.1 TH/MM3 (1.8-7.7) 5.6 TH/MM3 (1.8-7.7) Lymphocytes # (Auto) 0.2 TH/MM3 (1.0-4.8) 0.6 TH/MM3 (1.0-4.8) Monocytes # (Auto) 0.4 TH/MM3 (0-0.9) 0.5 TH/MM3 (0-0.9) Eosinophils # (Auto) 0.1 TH/MM3 (0-0.4) 0.1 TH/MM3 (0-0.4) Basophils # (Auto) 0.1 TH/MM3 (0-0.2) 0.1 TH/MM3 (0-0.2) CBC Comment DIFF FINAL DIFF FINAL Differential Comment Blood Urea Nitrogen 41 MG/DL (7-18) 40 MG/DL (7-18) Creatinine 1.24 MG/DL (0.50-1.00) 1.17 MG/DL (0.50-1.00) Random Glucose 154 MG/DL (74-106) 133 MG/DL (74-106) Calcium Level 9.7 MG/DL (8.5-10.1) 9.9 MG/DL (8.5-10.1) Sodium Level 135 MEQ/L (136-145) 136 MEQ/L (136-145) Potassium Level 4.6 MEQ/L (3.5-5.1) 4.4 MEQ/L (3.5-5.1) Chloride Level 91 MEQ/L (98-107) 89 MEQ/L (98-107) Carbon Dioxide Level 40.0 MEQ/L (21.0-32.0) 42.3 MEQ/L (21.0-32.0) Anion Gap 4 MEQ/L (5-15) 5 MEQ/L (5-15) Estimat Glomerular Filtration Rate 42 ML/MIN (>89) 45 ML/MIN (>89) Result Diagram: 03/07/17 0505 03/07/17 0505 Imaging Last [address] 03/05/17 1414 Signed Impressions: Service Date/Time: Sunday, March 05, 2017 14:49 - CONCLUSION: Bilateral infiltrates and effusions. Prominent cardiomegaly Mango Sheets MD Chest Ultrasound 03/05/17 1217 Signed Impressions: Service Date/Time: Sunday, March 05, 2017 13:39 - CONCLUSION: Small right effusion. Mango Sheets MD Chest X-Ray 03/05/17 0000 Signed Impressions: Service Date/Time: Sunday, March 05, 2017 12:33 - CONCLUSION: 1. Bilateral effusions, cardiomegaly and diffuse interstitial prominence most consistent with congestive failure. There are consolidative changes in the lung bases an underlying pneumonia cannot be excluded. Varun Alvarez MD Chest X-Ray 03/05/17 0000 Signed Impressions: Service Date/Time: Sunday, March 05, 2017 08:47 - CONCLUSION: 1. Advanced cardiomegaly with bilateral effusions and diffuse infiltrates suggesting congestive failure. An underlying pneumonia cannot be excluded. Changes have mildly worsened compared to previous dated 03/03/17. Varun Alvarez MD . Patient/Family Conference Family Conference Location: Bedside Issues Discussed: * Palliative care role, purpose, approach * Additional medical, psychosocial, and spiritual history * Patients general health, functional status, and cognitive changes in the months leading up to the current hospitalization * Patient understanding of the current medical problems * Patient understanding of prognosis * Patients goals of care as best understood from conversations and/or values * Current medical treatment options and benefits/burdens of those options * Code status * Likely scenarios comparing ongoing aggressive care with a transition to comfort measures only * Questions answered to the best of my ability * Palliative care contact information provided Assessment and Plan Disease Oriented Problem List: (1) Generalized weakness (2) Acute on chronic diastolic CHF (congestive heart failure) (3) Atrial fibrillation (4) COPD (chronic obstructive pulmonary disease) Symptom Scale: (1) Anxiety (2) Debility (3) Dyspnea Pertinent Non-Medical Issues Psychosocial: Patient is originally from [place]. Both her mother and father are ; both from myocardial infarction. Patient has 1 brother (Valentin) who lives in [place]. She states she and her brother have a "horrible" relationship. Patient was for 7 years and in 1972 ; she never remarried. She had one son (Mo) who committed suicide 2 years ago when he was approximately 45 years old. It was recently the second anniversary of his , and the patient states it has been very difficult. She was very close to her son. Patient recently moved to [place]. 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 Legal: None known. Ethical issues impacting care: None known. . Important Contacts Melody Pantoja (friend) [phone] . Code Status: No Code Plan * CODE STATUS: DNR * HEALTHCARE DECISION-MAKING: Patient currently participating in medical decision making. She demonstrates a good understanding of her medical conditions and the ability to weigh the benefits and burdens of treatment options. Patient has previously designated her best friend, Melody Pantoja, as her health care surrogate decision maker. * GOALS OF CARE: Conservative short of no code. Patient again verbalized as she has during previous admissions this year that she is "tired" of being in and out of the hospital over the past year. Hospice's services introduced, patient receptive to meeting with hospice to discuss alternative options. Hospice consult placed. * SYMPTOMS: * = Dyspnea: Secondary to COPD, CHF, pleural effusions, acute illness. Currently on O2 via nasal cannula 2 L, patient is O2 dependent at home. 03/[address]: Bilateral infiltrates and effusions. Possible redo thoracentesis. Patient currently being diuresed, duonebs ordered PRN. No recommendations at this time. * = Debility: Progressive following CABG in February 2016. Exacerbated by her current clinical complications. PT/OT ordered. No recommendations at this time. * Palliative care contact information has been provided to patient. * Palliative care will continue to follow-up with patient for further clarifications of goals of care as her clinical course continue to evolve. . Thank you for the opportunity to participate in the care of Ms. Garcia. Attestation To help prompt me to consider important information that might be impacting today's encounter and assessment, information from prior notes written by myself or my colleagues may have been "brought forward" into today's note. My signature on this note, however, is an attestation that I personally performed the exam, history, and/or decision-making noted today, and, unless otherwise indicated, the interactions with patient, family, and staff as well as the review of records all occurred today. I also attest that the listed assessment and stated plan reflect my best clinical judgment today based on the combination of historical information, prior notes, and today's exam/ interactions. When time spent is documented, it refers only to time spent today by the signer, or if indicated, combined time spent today by collaborating physician/nurse practitioner. Louisa Silva Mar 07, 2017 10:20
[2017-03-07] MEDS: FUROSEMIDE 80 MG TAB PO SCH (16:53)
[2017-03-07] MEDS: FENOFIBRATE 145 MG TAB PO SCH (21:33)
[2017-03-07] MEDS: MIRTAZAPINE 15 MG TAB PO SCH (21:33)
[2017-03-07] MEDS: ATORVASTATIN 80 MG TAB PO SCH (21:33)
[2017-03-08] VITALS (15 sets, daily range): BP systolic 97–113; BP diastolic 49–64; PULSE 82–120; RESP 20; TEMP 98; O2SAT 99
[2017-03-08] MEDS: hydrALAZINE HCL 25 MG TAB PO SCH ×2 (05:51→14:00)
[2017-03-08] MEDS: DILTIAZEM HCL 90 MG TAB PO SCH ×5 (05:51→18:14)
[2017-03-08] MEDS: LEVOTHYROXINE SODIUM 150 MCG TAB PO SCH (05:51)
[2017-03-08] MEDS: INSULIN ASPART SUPPLEMENTAL SCALE SQ SCH ×3 (08:00→17:00)
[2017-03-08] MEDS: FUROSEMIDE 80 MG TAB PO SCH ×3 (08:31→18:14)
[2017-03-08] MEDS: RIVAROXABAN 15 MG TAB PO SCH (08:31)
[2017-03-08] MEDS: LOSARTAN 50 MG TAB PO SCH (08:31)
[2017-03-08] MEDS: MULTIVITAMINS/MINERALS THERAPEUTIC TAB PO SCH (08:31)
[2017-03-08] MEDS: PANTOPRAZOLE SOD 40 MG DELAYED RELEASE TAB PO SCH (08:31)
[2017-03-08] MEDS: ASPIRIN 81 MG CHEW TAB PO SCH (08:32)
[2017-03-08] MEDS: SODIUM POLYSTYRENE SULFONATE SUSP 15 GM/60 ML CUP PO SCH (08:32)
[2017-03-08] MEDS: INSULIN DETEMIR 100 UNITS/ML VIAL SQ SCH (09:00)
[2017-03-08] MEDS: CALCIUM GLUCONATE INJ 1 GM in SODIUM CHLORIDE 0.9% INJ 100 ML IV SCH (09:20)
[2017-03-08] MEDS ORDERED: DULoxetine HCl DR 30 MG CAP PO SCH (10:00)
[2017-03-08] MEDS ORDERED: DULoxetine HCl DR 60 MG CAP PO SCH (10:00)
[2017-03-08 10:14] LABS: AUTOMATED NEUTROPHIL # 7.9 TH/MM3 (1.8-7.7); BASOPHIL % 0.2 % (0.0-2.0); EOSINOPHIL # 0.1 TH/MM3 (0-0.4); EOSINOPHIL % 0.7 % (0.0-4.0); HEMATOCRIT 29.5 % (35.0-46.0); LYMPH % 3.9 % (9.0-44.0); LYMPHOCYTE # 0.3 TH/MM3 (1.0-4.8); MEAN CELL VOLUME 92.1 FL (80.0-100.0); MEAN CORPUSCULAR HEMOGLOBIN 29.8 PG (27.0-34.0); MEAN CORPUSCULAR HGB CONC 32.3 % (32.0-36.0); MONO % 4.8 % (0.0-8.0); NEUT % 90.4 % (16.0-70.0); PLATELET COUNT 407 TH/MM3 (150-450); RED CELL DISTRIBUTION WIDTH 16.7 % (11.6-17.2); WHITE BLOOD COUNT 8.7 TH/MM3 (4.0-11.0)
[2017-03-08 10:15] LABS: HEMO FLAGS DIFF FINAL
[2017-03-08 10:39] LABS: BICARBONATE 44.8 MEQ/L (21.0-32.0); POTASSIUM 4.2 MEQ/L (3.5-5.1)
--- NOTE | 2017-03-08 11:45 | HHI.FPPN ---
Subjective Remarks Patient seen and examined this morning bedside. Pt states her shortness of breath has greatly improved since her admission. She also states her leg swelling has greatly improved since the admission, and she hasn't seen her legs look this great in a long time. She is very happy with her improvement and feels comfortable going home. She denies any fever/chills. She denies any chest pain/shortness of breath/dizziness. Objective Vitals Vital Signs Date Time Temp Pulse Resp B/P (MAP) Pulse Ox O2 Delivery O2 Flow Rate FiO2 03/08/17 06:00 98 03/08/17 05:00 102 03/08/17 04:20 98.0 82 20 113/64 (80) 99 03/08/17 04:00 110 03/08/17 03:00 112 03/08/17 02:26 Nasal Cannula 3.00 03/08/17 02:00 108 03/08/17 01:00 92 03/08/17 00:00 86 03/07/17 23:00 89 03/07/17 22:17 97 Nasal Cannula 3.50 03/07/17 22:00 78 03/07/17 21:00 78 03/07/17 20:20 Nasal Cannula 3.00 03/07/17 20:20 98.2 79 20 117/64 (81) 99 03/07/17 20:00 80 03/07/17 19:00 79 03/07/17 18:00 84 03/07/17 17:00 90 03/07/17 16:00 70 03/07/17 16:00 98.2 77 16 115/60 (78) 99 03/07/17 15:00 84 03/07/17 14:00 82 03/07/17 13:00 78 03/07/17 12:00 89 03/07/17 12:00 98.1 85 16 124/75 (91) 95 I/O 03/07/17 03/07/17 03/07/17 03/08/17 03/08/17 03/08/17 07:00 15:00 23:00 07:00 15:00 23:00 Intake Total 240 ml 940 ml 480 ml Output Total 1200 ml 800 ml 1900 ml Balance -960 ml 140 ml -1420 ml Intake Oral 240 ml 840 ml 480 ml IV Total 100 ml Output Urine Total 1200 ml 800 ml 1900 ml # Voids 1 # Bowel Movements 3 2 1 1 Result Diagram: 03/08/1795303/08/17953 Objective Remarks GENERAL: In no acute distress, patient on nasal cannula and conversational eating comfortably SKIN: thin, ecchymoses on b/l upper extremities EYES: PERRL, no injection or icterus NECK: JVD present CARDIOVASCULAR: Irregular rate and rhythm, distant heart sounds with 2/6 systolic murmur RESPIRATORY: Good air movement (improvement from prior exams), and inspiratory crackles/rales and wheezing in all lung bautista throughout GASTROINTESTINAL: Abdomen soft, non-tender, nondistended. + BS. No hepato- splenomegaly, or palpable masses. MUSCULOSKELETAL: Trace pitting edema, greatly improved from exam on admission, no erythema or warmth. No calf tenderness. NEUROLOGICAL: Awake, alert, and oriented x3. A/P Assessment and Plan 76 yr old F admitted for acute on chronic diastolic CHF, ACS rule-out, Afib w/ RVR, and UTI Discharge Planning Anticipate discharge today Problem List: (1) Acute on chronic diastolic CHF (congestive heart failure) ICD Codes: I50.33 - Acute on chronic diastolic (congestive) heart failure Status: Resolved Plan: Acute on chronic CHF exacerbation with likely cardiorenal syndrome, resolved - d/c with course of lasix diuresis : lasix 40mg BID x 3 days, then lasix 20mg BID - Cont home med KCl 20 daily - continue losartan 50 mg daily - Creat 1.08 - Cont 1.5 L fluid restriction daily - Cont Heart healthy/low-salt diet - PT and OT outpatient 3x/week - ancillary services manager therapy consult to assist with placement and patient medications on discharge - continue Metoprolol In Hospital: - Consult Cardio recs: f/u echo (echocardiogram shows left ventricular systolic function is hyperdynamic with an estimated ejection fraction the range of 65-70% .) - furosemide 80 mg by mouth twice a day -- per conversation with patient; she stated on admission that she was allergic to furosemide, however she thought she was allergic because when she came in on her last admission she was given furosemide and all of the fluid was diuresed and her potassium was low. It was discussed with the patient that this is not an allergy and furosemide might work better for her. This was removed from her allergy list. (2) Afib ICD Codes: I48.91 - Unspecified atrial fibrillation Status: Chronic Plan: Afib w/ RVR - heart rate in the [70-112] range - Continue Cardizem PO home medication - Continue Metoprolol - Continue home xarelto - Aspirin 81mg PO daily 03/02/17: Troponins 3 - 0.19 - 0.10 - 0.18 03/02/17: EKG revealed afib but no sign of acute ischemia (3) Depression ICD Codes: F32.9 - Major depressive disorder, single episode, unspecified Status: Chronic Plan: - Cont cymbalata 90mg - Cont Remeron 7.5mg - f/u with psych outpatient Hospital Psych consult: -Psychiatry re-consulted due to somnolence -Cont Cymbalta 90mg - Decrease Remeron 15--> 7.5mg - d/c xanax PRN (4) Type 2 diabetes mellitus ICD Codes: E11.9 - Type 2 diabetes mellitus without complications Status: Chronic Plan: -Cont home detemir (7 in AM and 7 in PM) -Cont Low NovoLog sliding scale (5) COPD (chronic obstructive pulmonary disease) ICD Codes: J44.9 - Chronic obstructive pulmonary disease, unspecified Status: Chronic Plan: on 2L/m NC satting 97-100% -On home 2.5 L/m O2 -Pt refused DuoNeb breathing treatment PRN for SOB, pt states exacerbates her HF -Former smoker 3ppd x 30 years; quit smoking 30 years ago (6) HTN (hypertension) ICD Codes: I10 - Essential (primary) hypertension Status: Chronic Plan: -Continue home meds * Hydralazine HCl 25mg PO q8hr * Losartan 50mg PO daily (7) GERD (gastroesophageal reflux disease) ICD Codes: K21.9 - Gastro-esophageal reflux disease without esophagitis Status: Chronic Plan: -Continue home Pantoprazole 40 mg PO daily (8) Hyperlipidemia ICD Codes: E78.5 - Hyperlipidemia, unspecified Status: Chronic Plan: -Continue home Fenofibrate 160mg PO HS and Atorvastatin 80mg PO HS (9) Hypothyroidism ICD Codes: E03.9 - Hypothyroidism, unspecified Status: Chronic Plan: -Continue home levothyroxine 150 mcg PO daily (10) JULIANE (acute kidney injury) ICD Codes: N17.9 - Acute kidney failure, unspecified Status: Resolved Plan: Creat 1.08 (p/w Cr of 1.51) Baseline 0.8 likely Cardiorenal syndrome; see A/P for CHF (11) Elevated d-dimer ICD Codes: R79.89 - Other specified abnormal findings of blood chemistry Status: Resolved Plan: Elevated at 1.47 - continue Xarelto Possibility of chronic OR acute PE discussed, however given Creatinine of 1.47, we will not preform CTA at this time. Diagnostic imaging for PE would not change our management as our patient is already on chronic anticoagulation (12) Nutrition, metabolism, and development symptoms ICD Codes: R63.8 - Other symptoms and signs concerning food and fluid intake Status: Acute Plan: Fluids: none Electrolytes: CTM Diet: Heart Healthy, 1.5L daily fluid restriction, Other: Daily weights, Strict I& Os, vitals q4h DVTppx: Xarelto, SCDs b/l Consults: OT, PT, case management Jany Morris MD R2 Mar 08, 2017 11:45
[2017-03-08] MEDS ORDERED: FURO1TAB60 PO ×2 (13:41→20:25)
[2017-03-08] MEDS ORDERED: MIRTA15 PO ×2 (13:41→20:25)
[2017-03-08] MEDS ORDERED: FURO1TAB62 PO ×2 (13:41→20:25)
--- NOTE | 2017-03-08 13:42 | HHI.DCPOC ---
Discharge Care Plan Diagnosis: (1) Tachycardia (2) Bilateral pleural effusion (3) Anemia (4) CHF exacerbation (5) Coronary artery disease Goals to Promote Your Health * To prevent worsening of your condition and complications * To maintain your health at the optimal level Directions to Meet Your Goals Take your medications as prescribed Follow your dietary instruction Follow activity as directed Keep your appointments as scheduled Take your immunizations and boosters as scheduled If your symptoms worsen call your PCP, if no PCP go to Urgent Care Center or Emergency Room Smoking is Dangerous to Your Health. Avoid second hand smoke Call the 24-hour hour crisis hotline for domestic abuse at Jany Morris MD R2 Mar 08, 2017 13:42
--- NOTE | 2017-03-08 13:54 | HHI.FF ---
Face to Face Verification Diagnosis: (1) Impaired mobility and activities of daily living (2) Hypoxemia (3) Respiratory failure, acute (4) CHF (congestive heart failure) (5) Debility Physical Therapy Order: Evaluate and Treat, Improve ambulation, Strength and gait training Biology Tutor Order: To Evaluate: Support services Order: To Provide: Community services I have seen patient Lorenza Garcia on 03/08/17. My clinical findings support the need for the requested home health care services because: Ltd mobility - disease progression Patient has SOB Deconditioned w/ increased weakness Need for psychosocial assistance High risk of falls I certify that my clinical findings support that this patient is homebound because: Hx COPD- exertion dyspnea/weakness Need for psychosocial assistance Poor cardiac reserve Jany Morris MD R2 Mar 08, 2017 13:54
== END 2017-03-08 19:30 | disposition home or self-care (01) | DRG 291 ==
LOC: NEPC 17:36 → NEDA 20:14 → HCIS 22:50
PROVIDERS: ADMIT Family Medicine; ATTEND Family Medicine
DX: I13.0 Hypertensive heart and chronic kidney disease with heart failure and stage 1 through stage 4 chronic kidney disease, or unspecified chronic kidney disease (principal); I50.33 Acute on chronic diastolic (congestive) heart failure; N17.9 Acute kidney failure, unspecified; E87.4 Mixed disorder of acid-base balance; N39.0 Urinary tract infection, site not specified; Z99.81 Dependence on supplemental oxygen; E11.22 Type 2 diabetes mellitus with diabetic chronic kidney disease; E87.5 Hyperkalemia; I48.2 Chronic atrial fibrillation; J44.9 Chronic obstructive pulmonary disease, unspecified; K21.9 Gastro-esophageal reflux disease without esophagitis; E03.9 Hypothyroidism, unspecified; E78.5 Hyperlipidemia, unspecified; I25.10 Atherosclerotic heart disease of native coronary artery without angina pectoris; M19.90 Unspecified osteoarthritis, unspecified site; Z66 Do not resuscitate; I34.0 Nonrheumatic mitral (valve) insufficiency; H91.90 Unspecified hearing loss, unspecified ear; G47.30 Sleep apnea, unspecified; F43.23 Adjustment disorder with mixed anxiety and depressed mood; D64.9 Anemia, unspecified; R00.0 Tachycardia, unspecified; N18.9 Chronic kidney disease, unspecified; F40.240 Claustrophobia; I27.20 Pulmonary hypertension, unspecified; I35.0 Nonrheumatic aortic (valve) stenosis; R79.1 Abnormal coagulation profile; F41.0 Panic disorder [episodic paroxysmal anxiety]; Z51.5 Encounter for palliative care; R09.02 Hypoxemia; Z91.14 Patient's other noncompliance with medication regimen; Z23 Encounter for immunization; Z79.4 Long term (current) use of insulin; Z79.82 Long term (current) use of aspirin; Z79.01 Long term (current) use of anticoagulants; Z79.899 Other long term (current) drug therapy; Z98.84 Bariatric surgery status; Z95.5 Presence of coronary angioplasty implant and graft; Z95.1 Presence of aortocoronary bypass graft; Z87.891 Personal history of nicotine dependence; Z87.440 Personal history of urinary (tract) infections
CPT/HCPCS: 36600; 71010; 71020; 71250; 76604; 80048; 80053; 81001; 82550; 82805; 82948; 83690; 83735; 83880; 84439; 84443; 84484; 85025; 85027; 85379; 85610; 85730; 87040; 87086; 90686; 90732; 93005; 93306; 93970; 96374; 96375; J0610; J1650; J1815; J1940; Q2038

== ENCOUNTER 2017-04-08 18:43 | Inpatient (IN) | payer OTHER ==
[~2017-04-08] VITALS: Ht 157.5 cm; Wt 59.8 kg
[~2017-04-08 18:43] MED LIST changes: -ATOR1TAB18 PO; +ATOR80TA45 PO; -BUME1TAB PO; -ERGO1CAP30 PO; +FURO1TAB60 PO; +FURO1TAB62 PO; -HYDR-3534 PO; +LOSA50TA PO; +MIRTA15 PO; +POTA-163 PO; -POTA-243 PO; +VITA500012 PO; -WALKER WHEELS/F1 MIS
[2017-04-08 18:46] VITALS: BP 113/57; PULSE 72; RESP 14; TEMP 98.5; O2SAT 97
--- NOTE | 2017-04-08 19:27 | PD ---
HPI Chief Complaint: Edema Time Seen by Provider: 19:15 Travel History International Travel<30 days: No Contact w/Intl Traveler<30days: No Traveled to known affect area: No History of Present Illness HPI pt is 76 yr old female with Hx of Pleural effusion recurrent since feb 2017 since CABG . That had post op sepsis and complication . Now has edema and SOB. Patient lives on 02 2liters contunous at home . Patient has had pleurocentesis may times and pig tails but not for a while. Now increase SOB and lower limb edema. Patient reports that she is supposed to be on 40 of Lasix in the a.m. and 20 of Lasix at night however she says I messed up recently . She called them to clarify she said she forgot to write it down and now still does not know what her diuretic regimen should be . patient is mildly tachypneic and otherwise stable at this time. symptoms have been getting progressively worse over the last 2 weeks denies chest pain. tried to take Lasix to help but did not help her get relief. Symptoms continue in the ER . Hasnt seen here MD for this episode PFSH Past Medical History Arthritis: Yes Asthma: No Atrial Fibrillation: Yes Autoimmune Disease: No Anxiety: Yes Depression: Yes Heart Rhythm Problems: Yes Cancer: No Cardiac Catheterization: Yes Cardiovascular Problems: Yes ([place] X 2) High Cholesterol: Yes Chemotherapy: No Chest Pain: No Congestive Heart Failure: Yes COPD: Yes Cerebrovascular Accident: No Coronary Artery Disease: Yes Diabetes: Yes Diminished Hearing: Yes Endocrine: Yes Gastrointestinal Disorders: Yes GERD: Yes Genitourinary: Yes Headaches: No Hiatal Hernia: Yes Heparin Induced Thrombocytopen: No Hypertension: Yes Immune Disorder: No Implanted Vascular Access Dvce: No Kidney Stones: No Musculoskeletal: Yes Neurologic: Yes Psychiatric: Yes Reproductive: No Respiratory: Yes Migraines: No Pneumonia: Yes Radiation Therapy: No Renal Failure: Yes (from to much bumex) Seizures: No Sickle Cell Disease: No Sleep Apnea: Yes Thyroid Disease: Yes Ulcer: Yes Past Surgical History Abdominal Surgery: Yes (gastric bypass 2009) AICD: No Arteriovenous Shunt: No Body Medical Devices: CHEST CLOSURE Cardiac Surgery: Yes (cabg) Coronary Artery Bypass Graft: Yes (X3 February 2016) Coronary Stent: Yes (X`1) Ear Surgery: No Endocrine Surgery: No Eye Surgery: Yes (bilateral cataract sx) Genitourinary Surgery: Yes (gastric bypass) Gynecologic Surgery: No Insulin Pump: No Joint Replacement: No Neurologic Surgery: No Oral Surgery: Yes (teeth extraction, wisdom) Pacemaker: No Thoracic Surgery: Yes (lung scraped to readhere) Other Surgery: Yes Social History Alcohol Use: Yes (RARE) Tobacco Use: No Substance Use: No Allergies-Medications (Allergen,Severity, Reaction): Coded Allergies: erythromycin base (Unverified Allergy, Unknown, 01/11/17) penicillin G (Unverified Allergy, Unknown, 01/11/17) Reported Meds & Prescriptions Reported Meds & Active Scripts Active Alprazolam 0.25 Mg Tab 0.25 Mg PO Q6H PRN Mirtazapine 15 Mg Tab 7.5 Mg PO HS 30 Days Lasix (Furosemide) 20 Mg Tab 20 Mg PO BID Xarelto (Rivaroxaban) 10 Mg Tab 20 Mg PO DAILY 30 Days Levemir Inj (Insulin Detemir) 1,000 unit/ 10 ML Vial 15 Units SQ HS [address] (Duloxetine HCl) 60 Mg Capdr 60 Mg PO DAILY 30 Days Metoprolol Tartrate 25 Mg Tab 25 Mg PO Q12HR Trazodone (Trazodone HCl) 50 Mg Tab 50 Mg PO HS 30 Days Pantoprazole (Pantoprazole Sodium) 40 Mg Tab 40 Mg PO DAILY 30 Days Thera M Plus (Multivitamins/Minerals Therapeutic) 1 Tab 1 Tab PO DAILY 30 Days Aspirin Low Strength (Aspirin) 81 Mg Chew 81 Mg PO DAILY 30 Days Reported Lasix (Furosemide) 40 Mg Tab 40 Mg PO DAILY Losartan (Losartan Potassium) 50 Mg Tab 50 Mg PO DAILY Potassium Chloride ER (Potassium Chloride) 20 Meq Tab 20 Meq PO DAILY Hydralazine HCl 25 Mg Tablet 25 Mg PO Q8HR Ergocalciferol 50,000 Unit Cap 50,000 Units PO Q7D ON MONDAYS Atorvastatin (Atorvastatin Calcium) 80 Mg Tab 80 Mg PO HS Diltiazem (Diltiazem HCl) 90 Mg Tab 90 Mg PO QID Before meals and at bedtime Novolog Inj (Insulin Aspart) 1,000 Unit/10 Ml Vial 2-10 Units SQ ACHS Sliding Scale Valtrex (Valacyclovir HCl) 1 Gm Tab 1 Gm PO HS Cyanocobalamin Inj (Cyanocobalamin) 1,000 Mcg/Ml Inj 1,000 Mcg IM EVERY 2 WEEKS Levothyroxine (Levothyroxine Sodium) 150 Mcg Tab 150 Mcg PO DAILY@0600 Fenofibrate 160 Mg Tab 160 Mg PO HS Review of Systems Except as stated in HPI: all other systems reviewed are Neg Respiratory: Positive: Shortness of Breath (shortness of breath lower leg edema increased oxygen need) Physical Exam Narrative GENERAL: No acute distress mildly tachypneic and has O2 nasal cannula on SKIN: Focused skin assessment warm/dry. HEAD: Atraumatic. Normocephalic. EYES: Pupils equal and round. No scleral icterus. No injection or drainage. ENT: No nasal bleeding or discharge. Mucous membranes pink and moist. NECK: Trachea midline. No JVD. CARDIOVASCULAR: Regular rate and rhythm. No murmur appreciated. Heart regular rate and rhythm however she does have sinus pauses RESPIRATORY: Diffuse coarse breath sounds with expiratory wheeze in the lower to mid lung bilaterally bases of the lungs have a decreased breath sounds and the very bases deadened. suspect pleural effusions bilaterally lower. No accessory muscle use. . GASTROINTESTINAL: Abdomen soft, non-tender, nondistended. Hepatic and splenic margins not palpable. MUSCULOSKELETAL: No obvious deformities. No clubbing. No cyanosis. No edema. Her lower extremities are tense but not pitting and there is a shininess and tenseness to the anterior tibial area lower as well as the ankles from chronic fluid overload NEUROLOGICAL: Awake and alert. No obvious cranial nerve deficits. Motor grossly within normal limits. Normal speech. PSYCHIATRIC: Appropriate mood and affect; insight and judgment normal. Data Data Last Documented VS Vital Signs Date Time Temp Pulse Resp B/P (MAP) Pulse Ox O2 Delivery O2 Flow Rate FiO2 04/08/17 20:55 100 Nasal Cannula 3.00 04/08/17 18:46 98.5 72 14 113/57 (75) Orders Orders Place In Observation (04/08/17 ) Vital Signs (Adult) Q4H (04/08/17 19:27) Aerial Photographer / Telemetry WILFRED.Q8H (04/08/17 19:27) Troponin I (04/09/17 01:27) Prothrombin Time / Inr (Pt) (04/09/17 06:00) Chest, Pa & Lat (04/08/17 ) Resp Oxygen Jackson C Titrat 1-4 L (04/08/17 ) Sodium Chloride 0.9% Flush (Ns Flush) (04/08/17 19:30) Sodium Chloride 0.9% Flush (Ns Flush) (04/08/17 21:00) Complete Blood Count With Diff (04/08/17 19:27) Troponin I (04/08/17 19:29) B-Type Natriuretic Peptide (04/08/17 19:29) Comprehensive Metabolic Panel (04/08/17 22:12) Bedside Glucose WILFRED.CSUGAR (04/09/17 00:01) Blood Glucose Goal (Criteria) (04/09/17 00:01) Hypoglycemia 70 Mg/Dl Or < (04/09/17 00:01) Notify Dr: Other (04/09/17 00:01) Dextrose 50% In Dhruv (Vial) Inj (D50w (Vi (04/09/17 00:15) Glucagon Inj (Glucagon Inj) (04/09/17 00:15) Insulin Aspart Supplemtl Scale (Novolog (04/09/17 08:00) Furosemide Inj (Lasix Inj) (04/09/17 09:00) Place In Observation (04/09/17 ) Vital Signs (Adult) Q4H (04/09/17 00:01) Activity Oob Ad Angelita (04/09/17 00:01) Aerial Photographer / Telemetry .CONTINUOUS (04/09/17 00:01) Intake + Output WILFRED.QSHIFT (04/09/17 00:01) Sodium Chloride 0.9% Flush (Ns Flush) (04/09/17 00:15) Sodium Chloride 0.9% Flush (Ns Flush) (04/09/17 09:00) Ondansetron Inj (Zofran Inj) (04/09/17 00:15) Comprehensive Metabolic Panel (04/09/17 06:00) Complete Blood Count With Diff (04/09/17 06:00) Troponin I (04/09/17 06:00) Scd Bilateral/Knee High WILFRED.BID (04/09/17 00:01) Alexandre Bilateral/Knee High WILFRED.QSHIFT (04/09/17 00:00) Acetaminophen (Tylenol) (04/09/17 00:15) Acetamin-Hydrocod 325-5 Mg (Ridge 5-325 (04/09/17 00:15) Morphine Inj (Morphine Inj) (04/09/17 00:15) Docusate Sodium-Senna (Marium-Colace) (04/09/17 09:00) Magnesium Hydroxide Liq (Milk Of Magnesi (04/09/17 00:15) Sennosides (Senokot) (04/09/17 00:15) Bisacodyl Supp (Dulcolax Supp) (04/09/17 00:15) Lactulose Liq (Lactulose Liq) (04/09/17 00:15) Aspirin Chew (Aspirin Chew) (04/09/17 09:00) Atorvastatin (Lipitor) (04/09/17 21:00) Diltiazem (Cardizem) (04/09/17 09:00) Duloxetine (Delbert Menard) (04/09/17 09:00) Hydralazine (Apresoline) (04/09/17 06:00) Metoprolol Tartrate (Lopressor) (04/09/17 09:00) Pantoprazole (Protonix) (04/09/17 09:00) Rivaroxaban (Xarelto) (04/09/17 09:00) Furosemide Inj (Lasix Inj) (04/09/17 00:15) Admit Order (Ed Use Only) (04/09/17 00:23) Labs Laboratory Tests Test 04/08/17 20:30 04/08/17 21:30 White Blood Count 7.0 TH/MM3 Red Blood Count 2.83 MIL/MM3 Hemoglobin 8.3 GM/DL Hematocrit 25.6 % Mean Corpuscular Volume 90.7 FL Mean Corpuscular Hemoglobin 29.3 PG Mean Corpuscular Hemoglobin Concent 32.3 % Red Cell Distribution Width 19.8 % Platelet Count 356 TH/MM3 Mean Platelet Volume 8.1 FL Neutrophils (%) (Auto) 85.6 % Lymphocytes (%) (Auto) 6.1 % Monocytes (%) (Auto) 6.6 % Eosinophils (%) (Auto) 0.9 % Basophils (%) (Auto) 0.8 % Neutrophils # (Auto) 6.0 TH/MM3 Lymphocytes # (Auto) 0.4 TH/MM3 Monocytes # (Auto) 0.5 TH/MM3 Eosinophils # (Auto) 0.1 TH/MM3 Basophils # (Auto) 0.1 TH/MM3 CBC Comment DIFF FINAL Differential Comment Blood Urea Nitrogen 51 MG/DL Creatinine 1.72 MG/DL Random Glucose 222 MG/DL Total Protein 6.6 GM/DL Albumin 2.8 GM/DL Calcium Level 8.6 MG/DL Alkaline Phosphatase 124 U/L Aspartate Amino Transf (AST/SGOT) 36 U/L Alanine Aminotransferase (ALT/SGPT) 28 U/L Total Bilirubin 0.6 MG/DL Sodium Level 137 MEQ/L Potassium Level 4.3 MEQ/L Chloride Level 98 MEQ/L Carbon Dioxide Level 31.0 MEQ/L Anion Gap 8 MEQ/L Estimat Glomerular Filtration Rate 29 ML/MIN Troponin I 0.07 NG/ML B-Type Natriuretic Peptide 451 PG/ML Prothrombin Time 11.5 SEC Prothromb Time International Ratio 1.0 RATIO MDM Medical Decision Making Medical Screen Exam Complete: Yes Emergency Medical Condition: Yes Medical Record Reviewed: Yes Interpretation(s) Chest x-ray looks like interstitial edema lower lobes and more centrally bilateral Differential Diagnosis edema of CHF vs fluid overload or inceased sodium intake Narrative Course I am going to diurese the patient and use IV Lasix. Patient is going to be admitted for fine tuning of her CHF. The x-ray chest x-ray looks like interstitial edema mcc up both lung bautista as opposed to pleural effusion. I will reevaluate her creatinine to make sure she is not overdiuresis Diagnosis Primary Impression: CHF (congestive heart failure) Additional Impression: Peripheral edema Admitting Information Admitting Physician Requests: Admit Scripts Alprazolam (Alprazolam) 0.25 Mg Tab 0.25 MG PO Q6H Y for ANXIETY, #10 TAB 0 Refills Prov: Maribel Patton PA-C 04/09/17 Condition: Stable Esa Lucero MD Apr 08, 2017 19:27
[2017-04-08] MEDS ORDERED: SODIUM CHLORIDE 0.9% FLUSH 10 ML FLUSH IV FLUSH PRN (19:30)
[2017-04-08 20:16] VITALS: O2SAT 96
--- NOTE | 2017-04-08 20:24 | RADRPT ---
EXAM DATE/TIME: 04/08/2017 19:53 [facility] COMPARISON: CHEST PA & LAT, March 03, 2017, 20:44. INDICATIONS : Shortness of breath. MEDICAL HISTORY : Congestive heart failure. Emphysema, heart attack, hypercholesterolemia, hypertension, AFIB, CO PD, Pleural effusion, anemia. SURGICAL HISTORY : CABG. Lung scraped to readhere, Heart cath, coronary artery stent. ENCOUNTER: Initial ACUITY: 1 day PAIN SCORE: 0/10 LOCATION: Bilateral chest FINDINGS: PA and lateral views of the chest show significant cardiomegaly. Small bilateral pleural effusions. D iffuse bilateral intra-alveolar infiltrates most pronounced within the bases. Median sternotomy wires . CONCLUSION: Cardiomegaly with intra-alveolar pulmonary edema and small effusions. John Peace Jr., MD on April 08, 2017 at 20:22 Board Certified Radiologist. This report was verified electronically.
[2017-04-08] MEDS ORDERED: SODIUM CHLORIDE 0.9% FLUSH 10 ML FLUSH IV FLUSH SCH (21:00)
[2017-04-08 21:23] LABS: BASOPHIL # 0.1 TH/MM3 (0-0.2); BASOPHIL % 0.8 % (0.0-2.0); EOSINOPHIL # 0.1 TH/MM3 (0-0.4); EOSINOPHIL % 0.9 % (0.0-4.0); HEMATOCRIT 25.6 % (35.0-46.0); HEMO FLAGS DIFF FINAL; LYMPH % 6.1 % (9.0-44.0); LYMPHOCYTE # 0.4 TH/MM3 (1.0-4.8); MEAN CELL VOLUME 90.7 FL (80.0-100.0); MEAN CORPUSCULAR HEMOGLOBIN 29.3 PG (27.0-34.0); MEAN CORPUSCULAR HGB CONC 32.3 % (32.0-36.0); MONO % 6.6 % (0.0-8.0); NEUT % 85.6 % (16.0-70.0); PLATELET COUNT 356 TH/MM3 (150-450); RED BLOOD COUNT 2.83 MIL/MM3 (4.00-5.30); RED CELL DISTRIBUTION WIDTH 19.8 % (11.6-17.2)
[2017-04-08 21:51] LABS: PROTHROMBIN TIME - PATIENT 11.5 SEC (9.8-11.6)
[2017-04-08 23:02] LABS: ANION GAP 8 MEQ/L (5-15); AST (GOT) 36 U/L (15-37); BLOOD UREA NITROGEN 51 MG/DL (7-18); CHLORIDE 98 MEQ/L (98-107); GLOMERULAR FILTRATION RATE 29 ML/MIN (>89); POTASSIUM 4.3 MEQ/L (3.5-5.1); SODIUM (NA) 137 MEQ/L (136-145)
[2017-04-08 23:03] LABS: ALT (GPT) 28 U/L (10-53)
[2017-04-08 23:05] LABS: ALKALINE PHOSPHATASE 124 U/L (45-117); TOTAL BILIRUBIN ADULT 0.6 MG/DL (0.2-1.0)
--- NOTE | 2017-04-08 23:53 | HHI.HP ---
[facility] Remigio Lee DO Admission Diagnosis Diagnoses: (1) CHF (congestive heart failure) Diagnosis: Principal (2) Elevated troponin Diagnosis: Principal (3) Renal insufficiency Diagnosis: Principal (4) A-fib Diagnosis: Principal (5) HTN (hypertension) Diagnosis: Principal (6) DM (diabetes mellitus) Diagnosis: Principal Travel History International Travel<30 Days: No Contact w/Intl Traveler <30 Da: No Traveled to Known Affected Are: No History of Present Illness This is a 76-year-old female with a PMH of HTN, CHF (Echo 03/06/17 w/ EF 65-70%) , A-fib on Xarelto, Anxiety, Depression, COPD and h/o CVA who presented to the ER w/ complaints of bilateral lower extremity edema x2 wks. Recent admit 03/01- 03/08/17 for similar complaints, s/p eval by Cardiology, started on aggressive diuresis and weaned from 80mg bid to 40mg bid to Lasix 20mg bid at time of d/c. States she forgot to take her Lasix and then got confused as to how much Lasix she should be taking. Denies chest pain, cough or SOB. On arrival, BP 113/57 HR 72, O2 sat 97% on RA, Afebrile. CBC at baseline. Creatinine 1.72, previous and 1.08 on 03/08/17. Troponin 0.07. EKG with no acute ischemia. CXR with cardiomegaly, intra-alveolar pulmonary edema and small effusions. Review of Systems Except as stated in HPI: all other systems reviewed are Neg ROS: 14 point review of systems otherwise negative. Past Family Social History Past Medical History PMH: HTN, CHF (Echo 03/06/17 w/ EF 65-70%), A-fib on Xarelto, Anxiety, Depression, COPD and h/o CVA Past Surgical History PAST SURGICAL HISTORY: Gastric Bypass, CABG, Bilateral Cataract Surgery, Tooth Extraction Allergies: Coded Allergies: erythromycin base (Unverified Allergy, Unknown, 01/11/17) penicillin G (Unverified Allergy, Unknown, 01/11/17) Family History PAST FAMILY HISTORY: Reviewed. No h/o DM or CAD Social History PAST SOCIAL HISTORY: Occasional alcohol. Negative for tobacco or drugs. Physical Exam Vital Signs Vital Signs Date Time Temp Pulse Resp B/P (MAP) Pulse Ox O2 Delivery O2 Flow Rate FiO2 04/08/17 20:55 100 Nasal Cannula 3.00 04/08/17 20:16 96 Nasal Cannula 3.00 04/08/17 18:46 98.5 72 14 113/57 (75) 97 Physical Exam PE: GENERAL: Elderly white female in no acute distress. HEENT: PERRLA, EOMI. No scleral icterus or conjunctival pallor. No lid lag or facial droop. CARDIOVASCULAR: Regular rate and rhythm. No obvious murmurs to auscultation. No chest tenderness to palpation. RESPIRATORY: No obvious rhonchi or wheezing. Clear to auscultation. Breath sounds mildly decreased at bases bilaterally GASTROINTESTINAL: Abdomen soft, non-tender, nondistended. BS normal. MUSCULOSKELETAL: Extremities without clubbing, cyanosis, or edema. No obvious deformities. NEUROLOGICAL: Awake, alert and oriented x4. No focal neurologic deficits. Moving both upper and lower extremities spontaneously. Laboratory Laboratory Tests Test 04/08/17 20:30 04/08/17 21:30 White Blood Count 7.0 Red Blood Count 2.83 Hemoglobin 8.3 Hematocrit 25.6 Mean Corpuscular Volume 90.7 Mean Corpuscular Hemoglobin 29.3 Mean Corpuscular Hemoglobin Concent 32.3 Red Cell Distribution Width 19.8 Platelet Count 356 Mean Platelet Volume 8.1 Neutrophils (%) (Auto) 85.6 Lymphocytes (%) (Auto) 6.1 Monocytes (%) (Auto) 6.6 Eosinophils (%) (Auto) 0.9 Basophils (%) (Auto) 0.8 Neutrophils # (Auto) 6.0 Lymphocytes # (Auto) 0.4 Monocytes # (Auto) 0.5 Eosinophils # (Auto) 0.1 Basophils # (Auto) 0.1 CBC Comment DIFF FINAL Differential Comment Blood Urea Nitrogen 51 Creatinine 1.72 Random Glucose 222 Total Protein 6.6 Albumin 2.8 Calcium Level 8.6 Alkaline Phosphatase 124 Aspartate Amino Transf (AST/SGOT) 36 Alanine Aminotransferase (ALT/SGPT) 28 Total Bilirubin 0.6 Sodium Level 137 Potassium Level 4.3 Chloride Level 98 Carbon Dioxide Level 31.0 Anion Gap 8 Estimat Glomerular Filtration Rate 29 Troponin I 0.07 B-Type Natriuretic Peptide 451 Prothrombin Time 11.5 Prothromb Time International Ratio 1.0 Result Diagram: 04/08/17202904/08/172029 Shady VTE Risk Assessment Shady VTE Risk Assessment: Mod/High Risk (score >= 2) Vijayrini Risk Assessment Model Point Value = 1 Point Value = 2 Point Value = 3 Point Value = 5 Age 41-60 Minor surgery BMI > 25 kg/m2 Swollen legs Varicose veins or History of unexplained or recurrent spontaneous Oral contraceptives or hormone replacement Sepsis (< 1 month) Serious lung disease, including pneumonia (< 1 month) Abnormal pulmonary function Acute myocardial infarction Congestive heart failure (< 1 month) History of inflammatory bowel disease Medical patient at bed rest Age 61-74 Arthroscopic surgery Major open surgery (> 45 min) Laparoscopic surgery (> 45 min) Malignancy Confined to bed (> 72 hours) Immobilizing plaster cast Central venous access Age >= 75 History of VTE Family history of VTE Factor V Leiden Prothrombin [id number] Lupus anticoagulant Anticardiolipin antibodies Elevated serum homocysteine Heparin-induced thrombocytopenia Other congenital or acquired thrombophilia Stroke (< 1 month) Elective arthroplasty Hip, pelvis, or leg fracture Acute spinal cord injury (< 1 month) Prophylaxis Regimen Total Risk Factor Score Risk Level Prophylaxis Regimen 0-1 Low Early ambulation 2 Moderate Order ONE of the following: *Sequential Compression Device (SCD) *Heparin 5000 units SQ BID 3-4 Higher Order ONE of the following medications: *Heparin 5000 units SQ TID *Enoxaparin/Lovenox 40 mg SQ daily (WT < 150 kg, CrCl > 30 mL/min) *Enoxaparin/Lovenox 30 mg SQ daily (WT < 150 kg, CrCl > 10-29 mL/min) *Enoxaparin/Lovenox 30 mg SQ BID (WT < 150 kg, CrCl > 30 mL/min) AND/OR *Sequential Compression Device (SCD) 5 or more Highest Order ONE of the following medications: *Heparin 5000 units SQ TID (Preferred with Epidurals) *Enoxaparin/Lovenox 40 mg SQ daily (WT < 150 kg, CrCl > 30 mL/min) *Enoxaparin/Lovenox 30 mg SQ daily (WT < 150 kg, CrCl > 10-29 mL/min) *Enoxaparin/Lovenox 30 mg SQ BID (WT < 150 kg, CrCl > 30 mL/min) AND *Sequential Compression Device (SCD) Assessment and Plan Problem List: (1) CHF (congestive heart failure) ICD Code: I50.9 - Heart failure, unspecified (2) Renal insufficiency ICD Code: N28.9 - Disorder of kidney and ureter, unspecified (3) A-fib ICD Code: I48.91 - Unspecified atrial fibrillation (4) Elevated troponin ICD Code: R74.8 - Abnormal levels of other serum enzymes (5) HTN (hypertension) ICD Code: I10 - Essential (primary) hypertension (6) DM (diabetes mellitus) ICD Code: E11.9 - Type 2 diabetes mellitus without complications Assessment and Plan A/P: 1. CHF: Acute on Chronic. Diastolic. Echo 03/01/17 w/ EF 65-70%, BNP 451, CXR w/ small pleural effusions, images reviewed by me, s/p Lasix 20mg IV in ER, continue w/ Lasix 20mg IV BID, caution w/ renal insufficiency. Monitor I/O. Fluid restriction. Resume home medications. 2. Elevated Trop: Trop 0.07, EKG w/ no acute ischemia, no c/o chest pain, likely secondary to acute CHF. Check serial cardiac enzymes for trend. Resume home ASA, Statin, Metoprolol. 3. Renal Insufficiency: Acute on Chronic. Creatinine 1.72, previously 1.08 on 03/08/17. Caution with diuresis, monitor renal function closely, repeat labs in a.m. 4. A. fib: Chronic. Resume Diltiazem, Cardizem and Xarelto. 5. DM: Sliding scale w/ Accu-Cheks. Resume home Insulin. 6. DVT Prophylaxis: Resume Xarelto 7. Social work for d/c planning as needed. 8. Case discussed w/ ER physician at length. Sadia Johnson MD Apr 08, 2017 23:53
[2017-04-09] VITALS (12 sets, daily range): BP systolic 103–159; BP diastolic 61–87; PULSE 68–118; RESP 16–20; TEMP 97–98.2; O2SAT 94–96
[2017-04-09] MEDS ORDERED: SODIUM CHLORIDE 0.9% FLUSH 10 ML FLUSH IV FLUSH PRN (00:15)
[2017-04-09] MEDS ORDERED: BISACODYL 10 MG SUPP RECTAL PRN (00:15)
[2017-04-09] MEDS ORDERED: ONDANSETRON HCL 4 MG/2 ML VIAL IVP PRN (00:15)
[2017-04-09] MEDS ORDERED: DEXTROSE 50% IN WATER 50 ML VIAL(D50) IV PUSH PRN (00:15)
[2017-04-09] MEDS ORDERED: FUROSEMIDE 20 MG/2 ML VIAL IV PUSH ONE (00:15)
[2017-04-09] MEDS ORDERED: MAGNESIUM HYDROXIDE SUSP 30 ML CUP PO PRN (00:15)
[2017-04-09] MEDS ORDERED: LACTULOSE SYRUP 20 GM/30 ML CUP PO PRN (00:15)
[2017-04-09] MEDS ORDERED: ACETAMINOPHEN/HYDROcodone 325 MG/5 MG TAB PO PRN (00:15)
[2017-04-09] MEDS ORDERED: SENNOSIDES 8.6 MG TAB PO PRN (00:15)
[2017-04-09] MEDS ORDERED: MORPHINE SULFATE 4 MG/ML INJ IV PUSH PRN (00:15)
[2017-04-09] MEDS ORDERED: ACETAMINOPHEN 325 MG TAB PO PRN (00:15)
[2017-04-09] MEDS ORDERED: GLUCAGON 1 MG/ML VIAL OTHER PRN (00:15)
[2017-04-09] MEDS ORDERED: FURO1TAB60 PO (04:43)
[2017-04-09] MEDS: hydrALAZINE HCL 25 MG TAB PO SCH ×3 (05:17→21:58)
[2017-04-09] MEDS ORDERED: METOPROLOL TARTRATE 50 MG TAB PO ONE (07:30)
[2017-04-09] MEDS ORDERED: PILL SPLITTER OTHER PRN (07:45)
[2017-04-09] MEDS ORDERED: INSULIN ASPART SUPPLEMENTAL SCALE SQ SCH (08:00)
[2017-04-09] MEDS ORDERED: METOPROLOL TARTRATE 25 MG TAB PO SCH (09:00)
[2017-04-09] MEDS ORDERED: RIVAROXABAN 10 MG TAB PO SCH (09:00)
[2017-04-09] MEDS: DOCUSATE SODIUM 50 MG/SENNA 8.6 MG TAB PO SCH ×3 (09:00→20:34)
[2017-04-09] MEDS: ASPIRIN 81 MG CHEW TAB PO SCH ×2 (09:00→09:07)
[2017-04-09] MEDS: INSULIN ASPART SUPPLEMENTAL SCALE SQ SCH ×4 (09:05→21:01)
[2017-04-09] MEDS: FUROSEMIDE 20 MG/2 ML VIAL IV PUSH SCH ×2 (09:06→17:00)
[2017-04-09] MEDS: PANTOPRAZOLE SOD 40 MG DELAYED RELEASE TAB PO SCH (09:07)
[2017-04-09] MEDS: DULoxetine HCl DR 60 MG CAP PO SCH (09:07)
[2017-04-09] MEDS: DILTIAZEM HCL 90 MG TAB PO SCH ×4 (09:07→20:34)
[2017-04-09] MEDS: SODIUM CHLORIDE 0.9% FLUSH 10 ML FLUSH IV FLUSH SCH ×2 (09:08→21:02)
[2017-04-09 09:11] LABS: AUTOMATED NEUTROPHIL # 7.3 TH/MM3 (1.8-7.7); BASOPHIL # 0.1 TH/MM3 (0-0.2); BASOPHIL % 0.8 % (0.0-2.0); EOSINOPHIL # 0.1 TH/MM3 (0-0.4); EOSINOPHIL % 0.6 % (0.0-4.0); HEMATOCRIT 25.2 % (35.0-46.0); HEMO FLAGS DIFF FINAL; LYMPH % 4.9 % (9.0-44.0); LYMPHOCYTE # 0.4 TH/MM3 (1.0-4.8); MEAN CELL VOLUME 90.2 FL (80.0-100.0); MEAN CORPUSCULAR HEMOGLOBIN 30.3 PG (27.0-34.0); MEAN CORPUSCULAR HGB CONC 33.6 % (32.0-36.0); MONO % 7.1 % (0.0-8.0); NEUT % 86.6 % (16.0-70.0); PLATELET COUNT 320 TH/MM3 (150-450); RED BLOOD COUNT 2.79 MIL/MM3 (4.00-5.30); RED CELL DISTRIBUTION WIDTH 19.7 % (11.6-17.2); WHITE BLOOD COUNT 8.4 TH/MM3 (4.0-11.0)
[2017-04-09 09:34] LABS: ANION GAP 8 MEQ/L (5-15); AST (GOT) 26 U/L (15-37); BICARBONATE 31.8 MEQ/L (21.0-32.0); BLOOD UREA NITROGEN 47 MG/DL (7-18); CHLORIDE 97 MEQ/L (98-107); GLOMERULAR FILTRATION RATE 35 ML/MIN (>89); SODIUM (NA) 137 MEQ/L (136-145)
[2017-04-09 09:35] LABS: ALT (GPT) 26 U/L (10-53)
[2017-04-09 09:39] LABS: ALKALINE PHOSPHATASE 119 U/L (45-117); TOTAL BILIRUBIN ADULT 0.6 MG/DL (0.2-1.0)
[2017-04-09] MEDS ORDERED: Vancomycin Consult Pharmacy 1 EA OTHER SCH (10:30)
[2017-04-09] MEDS ORDERED: VANCOMYCIN 1,000 MG/NS 250 ML IV ONE ×2 (11:00)
--- NOTE | 2017-04-09 12:37 | EKG ---
Date Performed: 04/09/2017 Time Performed: 03:19:59 PTAGE: 76 years EKG: ATRIAL Fibrillation Borderline right axis deviation ABNORMAL RHYTHM ECG PREVIOUS TRACING : 03/02/2017 05.23 Since previous tracing, R-wave progression has improved and PVCs are no longer present. DOCTOR: Kiran Valencia Interpretating Date/Time 04/09/2017 12:36:29
--- NOTE | 2017-04-09 12:38 | EKG ---
Date Performed: 04/09/2017 Time Performed: 07:06:39 PTAGE: 76 years EKG: ATRIAL FIBRILLATION WITH RAPID VENTRICULAR RESPONSE BORDERLINE RIGHT AXIS DEVIATION MODERAT E ST DEPRESSION ABNORMAL ECG PREVIOUS TRACING : 04/09/2017 03.19 Compared to prior tracing no significant change DOCTOR: Kiran Valencia Interpretating Date/Time 04/09/2017 12:36:59
--- NOTE | 2017-04-09 13:13 | HHI.PR ---
Subjective Remarks Follow-up congestive heart failure and A. fib. Called by RN earlier secondary to RVR. Ordered to give 50 mg of Lopressor by mouth 1. Telemetry shows A. fib with controlled ventricular response at this time. Patient complaining of worsening shortness of breath but improving lower extremity edema and intermittent palpitations. Denies chest pain. Objective Vitals Vital Signs Date Time Temp Pulse Resp B/P (MAP) Pulse Ox O2 Delivery O2 Flow Rate FiO2 04/09/17 12:20 98.0 68 20 130/65 (86) 95 04/09/17 08:16 97.9 118 18 159/87 (111) 95 04/09/17 08:15 110 04/09/17 04:39 97 04/09/17 04:31 98.2 108 17 131/86 (101) 94 04/08/17 20:55 100 Nasal Cannula 3.00 04/08/17 20:16 96 Nasal Cannula 3.00 04/08/17 18:46 98.5 72 14 113/57 (75) 97 Result Diagram: 04/09/17 0733 04/09/17 0733 Imaging Last Impressions Chest X-Ray 04/08/17 0000 Signed Impressions: Service Date/Time: Saturday, April 08, 2017 19:53 - CONCLUSION: Cardiomegaly with intra-alveolar pulmonary edema and small effusions. John Peace Jr., MD Objective Remarks GENERAL: Elderly white female in no acute distress. Skin: Cellulitis right anterior leg HEENT: PERRLA, EOMI. No scleral icterus or conjunctival pallor. No lid lag or facial droop. CARDIOVASCULAR: Irregularly irregular No obvious murmurs to auscultation. No chest tenderness to palpation. RESPIRATORY: No obvious rhonchi or wheezing. Decreased Breath sounds mildly decreased at bases bilaterally GASTROINTESTINAL: Abdomen soft, non-tender, nondistended. BS normal. MUSCULOSKELETAL: Extremities without clubbing, cyanosis, or edema. No obvious deformities. NEUROLOGICAL: Awake, alert and oriented x4. No focal neurologic deficits. Moving both upper and lower extremities spontaneously. Procedures None A/P Problem List: (1) CHF (congestive heart failure) ICD Code: I50.9 - Heart failure, unspecified (2) A-fib ICD Code: I48.91 - Unspecified atrial fibrillation (3) Elevated troponin ICD Code: R74.8 - Abnormal levels of other serum enzymes (4) HTN (hypertension) ICD Code: I10 - Essential (primary) hypertension (5) DM (diabetes mellitus) ICD Code: E11.9 - Type 2 diabetes mellitus without complications Assessment and Plan 1. CHF: Acute on Chronic. Diastolic. Echo 03/01/17 w/ EF 65-70%, BNP 451, CXR w/ small pleural effusions, images reviewed by me, s/p Lasix 20mg IV in ER, continue w/ Lasix 20mg IV BID, caution w/ renal insufficiency. Monitor I/O. Fluid restriction. Resume home medications. Consider thoracentesis 2. Elevated Trop: Trop 0.07, EKG w/ no acute ischemia, no c/o chest pain, likely secondary to acute CHF. Resume home ASA, Statin, Metoprolol. 3. Renal Insufficiency: Acute on Chronic kidney disease stage III. Creatinine 1.72, previously 1.08 on 03/08/17. Caution with diuresis, monitor renal function closely, repeat labs in a.m. improving avoid nephrotoxins 4. A. fib: With RVR. Patient received extra dose of Lopressor 50 mg 1 and will increase Lopressor to 50 mg twice a day, continue Cardizem and Xarelto. 5. DM: Sliding scale w/ Accu-Cheks. Resume home Insulin. 6. Cellulitis lower extremity. Start vancomycin with close monitoring of renal function. DVT Prophylaxis: Resume Xarelto Discharge Planning Not ready for discharge Tj Bautista MD Apr 09, 2017 13:13
[2017-04-09] MEDS ORDERED: ALPR0.25 PO (16:21)
[2017-04-09] MEDS: ALPRAZolam 0.25 MG TAB PO PRN (17:00)
[2017-04-09] MEDS: valACYclovir HCL 500 MG TAB PO SCH (20:32)
[2017-04-09] MEDS: ATORVASTATIN 80 MG TAB PO SCH (20:32)
[2017-04-09] MEDS: METOPROLOL TARTRATE 50 MG TAB PO SCH (20:33)
[2017-04-09] MEDS: FENOFIBRATE 145 MG TAB PO SCH (20:33)
[2017-04-09] MEDS: traZODone HCL 50 MG TAB PO SCH (20:34)
[2017-04-09] MEDS: MIRTAZAPINE 15 MG TAB PO SCH (20:34)
[2017-04-09] MEDS ORDERED: INSULIN DETEMIR 100 UNITS/ML VIAL SQ SCH (21:00)
[2017-04-10] VITALS (13 sets, daily range): BP systolic 91–138; BP diastolic 54–97; PULSE 59–104; RESP 15–18; TEMP 97–98.2; O2SAT 90–95
[2017-04-10 02:17] LABS: AUTOMATED NEUTROPHIL # 7.1 TH/MM3 (1.8-7.7); BASOPHIL # 0.1 TH/MM3 (0-0.2); BASOPHIL % 0.9 % (0.0-2.0); EOSINOPHIL # 0.1 TH/MM3 (0-0.4); EOSINOPHIL % 1.1 % (0.0-4.0); HEMATOCRIT 25.5 % (35.0-46.0); HEMO FLAGS DIFF FINAL; LYMPH % 7.8 % (9.0-44.0); LYMPHOCYTE # 0.7 TH/MM3 (1.0-4.8); MEAN CELL VOLUME 90.5 FL (80.0-100.0); MEAN CORPUSCULAR HEMOGLOBIN 31.1 PG (27.0-34.0); MEAN CORPUSCULAR HGB CONC 34.3 % (32.0-36.0); NEUT % 82.2 % (16.0-70.0); PLATELET COUNT 355 TH/MM3 (150-450); RED BLOOD COUNT 2.82 MIL/MM3 (4.00-5.30); RED CELL DISTRIBUTION WIDTH 19.8 % (11.6-17.2); WHITE BLOOD COUNT 8.6 TH/MM3 (4.0-11.0)
[2017-04-10 03:10] LABS: BICARBONATE 31.8 MEQ/L (21.0-32.0); MAGNESIUM 1.8 MG/DL (1.5-2.5); POTASSIUM 4.2 MEQ/L (3.5-5.1)
[2017-04-10] MEDS: LEVOTHYROXINE SODIUM 150 MCG TAB PO SCH (07:29)
[2017-04-10] MEDS: hydrALAZINE HCL 25 MG TAB PO SCH ×3 (07:29→20:39)
[2017-04-10] MEDS: INSULIN ASPART SUPPLEMENTAL SCALE SQ SCH ×4 (08:00→21:00)
--- NOTE | 2017-04-10 08:35 | HHI.FF ---
Face to Face Verification Diagnosis: (1) Bilateral lower leg cellulitis (2) CHF (congestive heart failure) (3) A-fib (4) HTN (hypertension) (5) DM (diabetes mellitus) Home Health Nursing Order: Medical education Signs/symptoms of disease process Diabetic education CHF education Medication education-adverse effect Nursing assessment with vital signs I have seen patient Lorenza Garcia on 04/10/17. My clinical findings support the need for the requested home health care services because: Patient has SOB Deconditioned w/ increased weakness Med compliance is questionable Limited ability to care for self I certify that my clinical findings support that this patient is homebound because: Impaired cognitive ability/safety Unsafe to leave home unassisted Maribel Patton PA-C Apr 10, 2017 8:35 am
[2017-04-10] MEDS: SODIUM CHLORIDE 0.9% FLUSH 10 ML FLUSH IV FLUSH SCH ×2 (11:33→20:59)
[2017-04-10] MEDS: DILTIAZEM HCL 90 MG TAB PO SCH ×4 (11:33→20:38)
[2017-04-10] MEDS: METOPROLOL TARTRATE 50 MG TAB PO SCH ×2 (11:34→20:40)
[2017-04-10] MEDS: PANTOPRAZOLE SOD 40 MG DELAYED RELEASE TAB PO SCH (11:34)
[2017-04-10] MEDS: ASPIRIN 81 MG CHEW TAB PO SCH (11:34)
[2017-04-10] MEDS: DOCUSATE SODIUM 50 MG/SENNA 8.6 MG TAB PO SCH ×2 (11:34→20:39)
[2017-04-10] MEDS: RIVAROXABAN 20 MG TAB PO SCH (11:34)
[2017-04-10] MEDS: VANCOMYCIN 1,000 MG/NS 250 ML IV SCH ×2 (11:35)
[2017-04-10] MEDS: DULoxetine HCl DR 60 MG CAP PO SCH (11:35)
--- NOTE | 2017-04-10 13:01 | EKG ---
Date Performed: 04/09/2017 Time Performed: 08:34:56 PTAGE: 76 years EKG: ATRIAL FIBRILLATION WITH RAPID VENTRICULAR RESPONSE Nonspecific ST-T change Compared to pre vious tracing, ventricular response to atrial fibrillation is somewhat slower, otherwise no significa nt change. ABNORMAL RHYTHM ECG PREVIOUS TRACING : 04/09/2017 07.06 DOCTOR: Kiran Valencia Interpretating Date/Time 04/10/2017 12:59:54
--- NOTE | 2017-04-10 14:30 | HHI.PR ---
Subjective Remarks Follow-up heart failure. Reports shortness of breath is not any better. She has edema all the way to her thighs and lower back. She is improving. Discussed with RN Objective Vitals Vital Signs Date Time Temp Pulse Resp B/P (MAP) Pulse Ox O2 Delivery O2 Flow Rate FiO2 04/10/17 12:41 98.2 104 16 135/70 (91) 94 04/10/17 08:48 94 Nasal Cannula 2.50 04/10/17 08:38 97.0 92 15 138/97 (111) 94 04/10/17 04:24 97.6 67 18 126/58 (80) 93 04/10/17 04:00 70 04/10/17 00:00 61 04/09/17 23:50 97.0 68 103/61 (75) 94 04/09/17 20:08 Nasal Cannula 3.00 04/09/17 20:00 68 04/09/17 19:59 98.2 68 19 119/61 (80) 96 04/09/17 16:50 71 04/09/17 16:21 98.2 79 18 124/70 (88) 96 I/O 04/09/17 04/09/17 04/09/17 04/10/17 04/10/17 04/10/17 07:00 15:00 23:00 07:00 15:00 23:00 Intake Total 250 ml 250 ml Output Total 700 ml 200 ml Balance 250 ml -700 ml -200 ml 250 ml Intake IV Total 250 ml 250 ml Output Urine Total 700 ml 200 ml # Voids 2 Result Diagram: 04/10/17 0202 04/10/17 0202 Imaging Last Impressions Chest X-Ray 04/08/17 0000 Signed Impressions: Service Date/Time: Saturday, April 08, 2017 19:53 - CONCLUSION: Cardiomegaly with intra-alveolar pulmonary edema and small effusions. John Peace Jr., MD Objective Remarks GENERAL: Elderly white female in no acute distress. Skin: Improving Cellulitis right anterior leg HEENT: PERRLA, EOMI. No scleral icterus or conjunctival pallor. No lid lag or facial droop. CARDIOVASCULAR: Irregularly irregular No obvious murmurs to auscultation. No chest tenderness to palpation. RESPIRATORY: No obvious rhonchi or wheezing. Decreased Breath sounds mildly decreased at bases bilaterally GASTROINTESTINAL: Abdomen soft, non-tender, nondistended. BS normal. MUSCULOSKELETAL: Extremities without clubbing, cyanosis with bilateral lower extremity pitting edema up to her lower back. No obvious deformities. NEUROLOGICAL: Awake, alert and oriented x4. No focal neurologic deficits. Moving both upper and lower extremities spontaneously. Procedures None A/P Problem List: (1) CHF (congestive heart failure) ICD Code: I50.9 - Heart failure, unspecified (2) A-fib ICD Code: I48.91 - Unspecified atrial fibrillation (3) Elevated troponin ICD Code: R74.8 - Abnormal levels of other serum enzymes (4) HTN (hypertension) ICD Code: I10 - Essential (primary) hypertension (5) DM (diabetes mellitus) ICD Code: E11.9 - Type 2 diabetes mellitus without complications Assessment and Plan 1. CHF: Acute on Chronic. Diastolic. Echo 03/01/17 w/ EF 65-70%, BNP 451, CXR w/ small pleural effusions, images reviewed by me, s/p Lasix 20mg IV in ER. She is not any better will increase Lasix to 20 mg IV every 8 hours, caution w / renal insufficiency. Monitor I/O. Fluid restriction. Resume home medications. Consider thoracentesis if worsening hypoxemia secondary to pleural effusion 2. Elevated Trop: Trop 0.07, EKG w/ no acute ischemia, no c/o chest pain, likely secondary to acute CHF. Resume home ASA, Statin, Metoprolol. 3. Renal Insufficiency: Acute on Chronic kidney disease stage III. Creatinine 1.72, previously 1.08 on 03/08/17. Caution with diuresis, monitor renal function closely, repeat labs in a.m. Improving avoid nephrotoxins 4. A. fib: With RVR. Patient received extra dose of Lopressor 50 mg 1 and will increase Lopressor to 50 mg twice a day, continue Cardizem and Xarelto. Improved currently CVR 5. DM: Sliding scale w/ Accu-Cheks. Hypoglycemia protocol fingerstick 40 last night. Decrease long-acting insulin 6. Cellulitis lower extremity. Improving continue vancomycin with close monitoring of renal function. 7. DVT Prophylaxis: Resume Xarelto Discharge Planning Not ready for discharge Tj Bautista MD Apr 10, 2017 14:29
[2017-04-10] MEDS: FUROSEMIDE 20 MG/2 ML VIAL IV PUSH SCH ×2 (14:53→20:38)
[2017-04-10] MEDS: RESP: ALBUTEROL 2.5 MG/IPRATROPIUM 0.5 MG NEB (PRN) NEB (15:38)
[2017-04-10] MEDS: FENOFIBRATE 145 MG TAB PO SCH (20:38)
[2017-04-10] MEDS: ALPRAZolam 0.25 MG TAB PO PRN (20:38)
[2017-04-10] MEDS: ATORVASTATIN 80 MG TAB PO SCH (20:38)
[2017-04-10] MEDS: traZODone HCL 50 MG TAB PO SCH (20:39)
[2017-04-10] MEDS: valACYclovir HCL 500 MG TAB PO SCH (20:39)
[2017-04-10] MEDS: INSULIN DETEMIR 100 UNITS/ML VIAL SQ SCH (21:00)
[2017-04-10] MEDS: MIRTAZAPINE 15 MG TAB PO SCH (23:14)
[2017-04-11] VITALS (10 sets, daily range): BP systolic 112–161; BP diastolic 59–129; PULSE 51–95; RESP 16–18; TEMP 97.7–98.4; O2SAT 90–98
[2017-04-11] MEDS: hydrALAZINE HCL 25 MG TAB PO SCH ×3 (06:08→21:13)
[2017-04-11] MEDS: LEVOTHYROXINE SODIUM 150 MCG TAB PO SCH (06:08)
[2017-04-11 08:17] LABS: BICARBONATE 33.3 MEQ/L (21.0-32.0); MAGNESIUM 1.9 MG/DL (1.5-2.5); POTASSIUM 4.4 MEQ/L (3.5-5.1)
[2017-04-11] MEDS: ASPIRIN 81 MG CHEW TAB PO SCH (09:00)
[2017-04-11] MEDS: SODIUM CHLORIDE 0.9% FLUSH 10 ML FLUSH IV FLUSH SCH ×2 (09:15→21:00)
[2017-04-11] MEDS: INSULIN ASPART SUPPLEMENTAL SCALE SQ SCH ×4 (09:16→21:00)
[2017-04-11] MEDS: PANTOPRAZOLE SOD 40 MG DELAYED RELEASE TAB PO SCH (09:17)
[2017-04-11] MEDS: RIVAROXABAN 20 MG TAB PO SCH (09:17)
[2017-04-11] MEDS: DOCUSATE SODIUM 50 MG/SENNA 8.6 MG TAB PO SCH ×2 (09:18→21:00)
[2017-04-11] MEDS: DILTIAZEM HCL 90 MG TAB PO SCH ×4 (09:18→21:00)
[2017-04-11] MEDS: DULoxetine HCl DR 60 MG CAP PO SCH (09:18)
[2017-04-11] MEDS: METOPROLOL TARTRATE 50 MG TAB PO SCH ×2 (09:18→21:00)
[2017-04-11] MEDS: FUROSEMIDE 20 MG/2 ML VIAL IV PUSH SCH ×3 (09:29→20:00)
[2017-04-11] MEDS: VANCOMYCIN 1,000 MG/NS 250 ML IV SCH ×2 (11:48)
--- NOTE | 2017-04-11 14:36 | HHI.PR ---
Subjective Remarks Follow-up heart failure. States her breathing is not any better on 3 L nasal cannula. She is avoiding. She lost 6 kg in 3 days. Discussed with RN Objective Vitals Vital Signs Date Time Temp Pulse Resp B/P (MAP) Pulse Ox O2 Delivery O2 Flow Rate FiO2 04/11/17 13:39 97.7 76 16 138/78 (98) 97 04/11/17 11:00 95 3.00 04/11/17 08:45 98.0 94 18 161/77 (105) 93 04/11/17 08:01 95 04/11/17 03:14 98.0 78 18 135/73 (93) 90 04/10/17 23:32 98.1 59 16 91/54 (66) 90 04/10/17 20:51 94 Nasal Cannula 3.00 04/10/17 20:08 98.1 62 17 129/60 (83) 95 04/10/17 17:36 98.2 73 16 132/71 (91) 93 04/10/17 16:15 74 I/O 04/10/17 04/10/17 04/10/17 04/11/17 04/11/17 04/11/17 07:00 15:00 23:00 07:00 15:00 23:00 Intake Total 250 ml 990 ml 300 ml Output Total 200 ml 1150 ml Balance -200 ml 250 ml -160 ml 300 ml Intake Oral 990 ml 300 ml IV Total 250 ml Output Urine Total 200 ml 1150 ml # Voids 3 # Bowel Movements 1 Result Diagram: 04/10/17 0202 04/11/17 0622 Imaging Last Impressions Chest X-Ray 04/08/17 0000 Signed Impressions: Service Date/Time: Saturday, April 08, 2017 19:53 - CONCLUSION: Cardiomegaly with intra-alveolar pulmonary edema and small effusions. John Peace Jr., MD Objective Remarks GENERAL: Elderly white female in no acute distress. Skin: Improving Cellulitis right anterior leg HEENT: PERRLA, EOMI. No scleral icterus or conjunctival pallor. No lid lag or facial droop. CARDIOVASCULAR: Irregularly irregular No obvious murmurs to auscultation. No chest tenderness to palpation. RESPIRATORY: No obvious rhonchi or wheezing. Decreased Breath sounds mildly decreased at bases bilaterally GASTROINTESTINAL: Abdomen soft, non-tender, nondistended. BS normal. MUSCULOSKELETAL: Extremities without clubbing, cyanosis with bilateral lower extremity pitting edema up to her lower back. No obvious deformities. NEUROLOGICAL: Awake, alert and oriented x4. No focal neurologic deficits. Moving both upper and lower extremities spontaneously. No significant change in PE from previous Procedures None A/P Problem List: (1) CHF (congestive heart failure) ICD Code: I50.9 - Heart failure, unspecified (2) A-fib ICD Code: I48.91 - Unspecified atrial fibrillation (3) Elevated troponin ICD Code: R74.8 - Abnormal levels of other serum enzymes (4) HTN (hypertension) ICD Code: I10 - Essential (primary) hypertension (5) DM (diabetes mellitus) ICD Code: E11.9 - Type 2 diabetes mellitus without complications Assessment and Plan 1. CHF: Acute on Chronic. Diastolic. Echo 03/01/17 w/ EF 65-70%, BNP 451, CXR w/ small pleural effusions, images reviewed by me, s/p Lasix 20mg IV in ER. She has lost 6 kg in 3 days but complains of breathing is not any better. She has chronic respiratory failure on nasal cannula at home. We'll continue diuresis with Lasix 20 mg IV every 8 hours, caution w/ renal insufficiency. Monitor I/O. Fluid restriction. Resume home medications. Repeat chest x-ray. Consider thoracentesis if worsening hypoxemia secondary to pleural effusion 2. Elevated Trop: Trop 0.07, EKG w/ no acute ischemia, no c/o chest pain, likely secondary to acute CHF. Resume home ASA, Statin, Metoprolol. 3. Renal Insufficiency: Acute on Chronic kidney disease stage III. Creatinine slightly up with alkalosis. Caution with diuresis, monitor renal function closely, repeat labs in a.m. Improving avoid nephrotoxins. Consider Diamox 4. A. fib: With RVR. Improved currently CVR continue Lopressor, Cardizem and Xarelto 5. DM: Sliding scale w/ Accu-Cheks. Stable continue long-acting insulin. Hypoglycemia protocol 6. Cellulitis lower extremity. Improving continue vancomycin with close monitoring of renal function. 7. DVT Prophylaxis: Resume Xarelto Discharge Planning Not ready for discharge Tj Bautista MD Apr 11, 2017 14:36
[2017-04-11] MEDS: ALPRAZolam 0.25 MG TAB PO PRN (14:37)
--- NOTE | 2017-04-11 14:56 | RADRPT ---
EXAM DATE/TIME: 04/11/2017 14:39 [facility] COMPARISON: CHEST SINGLE AP, March 05, 2017, 12:33. INDICATIONS : Shortness of breath; CHF. MEDICAL HISTORY : Congestive heart failure. Emphysema. Myocardial infarction. Hypertension. Afib. COPD. SURGICAL HISTORY : CABG. Hearth cath. Coronary artery stent. ENCOUNTER: Subsequent ACUITY: 1 month PAIN SCORE: 0/10 LOCATION: Bilateral chest FINDINGS: A single portable frontal view the chest shows significant cardiomegaly with pulmonary vascular engor gement. Small bilateral pleural effusions with bibasilar consolidations. Appearance is similar to the prior study. Median sternotomy wires noted. CONCLUSION: Radiographic pattern most consistent with intra-alveolar pulmonary edema. John Peace Jr., MD on April 11, 2017 at 14:53 Board Certified Radiologist. This report was verified electronically.
[2017-04-11 20:21] LABS: BACTERIA, URINE MOD /hpf; BLOOD, URINE NEG (NEG); COMMENT (UR) CULTURE INDICATED; CULTURE IF INDICATED CULTURE INDICATED; GLUCOSE,URINE NEG (NEG); KETONE, URINE NEG (NEG); MUCUS URINE FEW /lpf (OCC); NITRITE,URINE NEG (NEG); SQUAMOUS EPITHELIAL CELL URINE <1 /hpf (0-5); URINE COLOR YELLOW (YELLW/STRAW)
[2017-04-11] MEDS: INSULIN DETEMIR 100 UNITS/ML VIAL SQ SCH (20:54)
[2017-04-11] MEDS: MIRTAZAPINE 15 MG TAB PO SCH (21:00)
[2017-04-11] MEDS: valACYclovir HCL 500 MG TAB PO SCH (21:00)
[2017-04-11] MEDS: traZODone HCL 50 MG TAB PO SCH (21:00)
[2017-04-11] MEDS: ATORVASTATIN 80 MG TAB PO SCH (21:00)
[2017-04-11] MEDS: FENOFIBRATE 145 MG TAB PO SCH (21:00)
[2017-04-12] VITALS (10 sets, daily range): BP systolic 89–143; BP diastolic 52–61; PULSE 52–88; RESP 16–18; TEMP 97.9–98.4; O2SAT 94–98
[2017-04-12] MEDS: LEVOTHYROXINE SODIUM 150 MCG TAB PO SCH (05:41)
[2017-04-12] MEDS: hydrALAZINE HCL 25 MG TAB PO SCH ×3 (05:41→21:38)
[2017-04-12] MEDS: FUROSEMIDE 20 MG/2 ML VIAL IV PUSH SCH ×3 (08:56→16:23)
[2017-04-12] MEDS: INSULIN ASPART SUPPLEMENTAL SCALE SQ SCH ×4 (08:57→21:39)
[2017-04-12] MEDS: DILTIAZEM HCL 90 MG TAB PO SCH ×4 (08:57→21:38)
[2017-04-12] MEDS: PANTOPRAZOLE SOD 40 MG DELAYED RELEASE TAB PO SCH (08:58)
[2017-04-12] MEDS: RIVAROXABAN 15 MG TAB PO SCH (08:58)
[2017-04-12] MEDS: DULoxetine HCl DR 60 MG CAP PO SCH (08:58)
[2017-04-12] MEDS: METOPROLOL TARTRATE 50 MG TAB PO SCH ×2 (08:58→21:38)
[2017-04-12] MEDS: DOCUSATE SODIUM 50 MG/SENNA 8.6 MG TAB PO SCH ×2 (08:59→21:38)
[2017-04-12] MEDS: SODIUM CHLORIDE 0.9% FLUSH 10 ML FLUSH IV FLUSH SCH ×2 (08:59→21:38)
[2017-04-12] MEDS: ASPIRIN 81 MG CHEW TAB PO SCH (08:59)
[2017-04-12] MEDS ORDERED: PHARMACY ORDERED LAB ONE (10:45)
[2017-04-12 11:28] LABS: MEAN CELL VOLUME 92.2 FL (80.0-100.0); MEAN CORPUSCULAR HEMOGLOBIN 29.6 PG (27.0-34.0); MEAN CORPUSCULAR HGB CONC 32.1 % (32.0-36.0); PLATELET COUNT 394 TH/MM3 (150-450); RED BLOOD COUNT 2.93 MIL/MM3 (4.00-5.30); RED CELL DISTRIBUTION WIDTH 20.1 % (11.6-17.2); REVIEW FLAG FINAL
[2017-04-12] MEDS: VANCOMYCIN 1,000 MG/NS 250 ML IV SCH ×2 (11:32)
[2017-04-12] MEDS: ALPRAZolam 0.25 MG TAB PO PRN ×2 (11:40→21:47)
[2017-04-12 11:58] LABS: BICARBONATE 33.3 MEQ/L (21.0-32.0); POTASSIUM 4.5 MEQ/L (3.5-5.1)
--- NOTE | 2017-04-12 14:21 | HHI.PR ---
Subjective Remarks Patient not yet to baseline. Pulmonary edema remains present. No other complaints. She is not ambulating at baseline. Objective Vital Signs Date Time Temp Pulse Resp B/P (MAP) Pulse Ox O2 Delivery O2 Flow Rate FiO2 04/12/17 12:13 98.0 81 16 115/61 (79) 98 04/12/17 08:50 97.9 88 16 143/60 (87) 94 04/12/17 06:24 Nasal Cannula 3.00 04/12/17 06:13 69 04/12/17 03:53 97.9 77 18 117/59 (78) 98 04/11/17 23:30 98.4 61 18 112/59 (76) 94 04/11/17 20:30 98.3 51 18 129/129 (129) 95 04/11/17 17:42 97.8 70 16 142/64 (90) 98 04/11/17 15:15 64 I/O 04/11/17 04/11/17 04/11/17 04/12/17 04/12/17 04/12/17 07:00 15:00 23:00 07:00 15:00 23:00 Intake Total 300 ml 250 ml 250 ml Balance 300 ml 250 ml 250 ml Intake Oral 300 ml IV Total 250 ml 250 ml # Voids 6 Result Diagram: 04/12/17 1050 04/12/17 1110 Objective Remarks GENERAL: NAD, A&Ox3 HEAD: Normocephalic. NECK: Supple, trachea midline. No lymphadenopathy. EYES: No scleral icterus. No injection or drainage. CARDIOVASCULAR: Regular rate and rhythm without murmurs, gallops, or rubs. RESPIRATORY: Breath sounds equal bilaterally. No accessory muscle use. Bilateral pulmonary edema, crackles. GASTROINTESTINAL: Abdomen soft, non-tender, nondistended. MUSCULOSKELETAL: No cyanosis, or edema. SKIN: Warm and dry. NEURO: No focal neurological deficitis. A/P Problem List: (1) CHF (congestive heart failure) ICD Code: I50.9 - Heart failure, unspecified Status: Acute (2) Bilateral pleural effusion ICD Code: J90 - Pleural effusion, not elsewhere classified Status: Acute (3) COPD (chronic obstructive pulmonary disease) ICD Code: J44.9 - Chronic obstructive pulmonary disease, unspecified Status: Chronic (4) JULIANE (acute kidney injury) ICD Code: N17.9 - Acute kidney failure, unspecified Status: Resolved (5) Acute on chronic diastolic CHF (congestive heart failure) ICD Code: I50.33 - Acute on chronic diastolic (congestive) heart failure Status: Resolved Assessment and Plan Assessment and plan 76-year-old female admitted secondary to congestive heart failure exacerbation with pulmonary edema and dyspnea with exertion. Acute on chronic diastolic congestive heart failure Echo from 03/01/17 shows an ejection fraction of 65-70% Continue Lasix Lasix changed to 40 mg IV every morning and every mid day Elevated troponin related to CHF Continue aspirin Continue statin Continue metoprolol Chronic kidney disease stage III Acute renal insufficiency Continue diuresis and monitor renal function Continue Diamox A. fib with RVR Continue Lopressor Continue Cardizem Continue Xarelto Diabetes mellitus type 2 Follow blood sugars Insulin sliding scale Diabetic diet Lower extremity cellulitis Continue vancomycin Follow clinically for improvement DVT prophylaxis Continue Xarelto Discharge planning Improvement in respiratory status and functionality needed prior to discharge Varun Roy MD Apr 12, 2017 14:21
[2017-04-12] MEDS: INSULIN DETEMIR 100 UNITS/ML VIAL SQ SCH (21:00)
[2017-04-12] MEDS: valACYclovir HCL 500 MG TAB PO SCH (21:38)
[2017-04-12] MEDS: traZODone HCL 50 MG TAB PO SCH (21:38)
[2017-04-12] MEDS: FENOFIBRATE 145 MG TAB PO SCH (21:38)
[2017-04-12] MEDS: ATORVASTATIN 80 MG TAB PO SCH (21:38)
[2017-04-12] MEDS: MIRTAZAPINE 15 MG TAB PO SCH (21:38)
[2017-04-13] VITALS (13 sets, daily range): BP systolic 101–119; BP diastolic 52–63; PULSE 51–85; RESP 16–22; TEMP 97.6–98.4; O2SAT 91–100
[2017-04-13] MEDS: RESP: ALBUTEROL 2.5 MG/IPRATROPIUM 0.5 MG NEB (PRN) NEB ×2 (00:06→06:19)
[2017-04-13] MEDS: hydrALAZINE HCL 25 MG TAB PO SCH ×3 (06:20→22:38)
[2017-04-13] MEDS: LEVOTHYROXINE SODIUM 150 MCG TAB PO SCH (06:20)
[2017-04-13] MEDS: FUROSEMIDE 20 MG/2 ML VIAL IV PUSH SCH ×2 (06:21→15:16)
[2017-04-13] MEDS: INSULIN ASPART SUPPLEMENTAL SCALE SQ SCH ×3 (08:00→21:00)
[2017-04-13 08:14] LABS: AUTOMATED NEUTROPHIL # 6.2 TH/MM3 (1.8-7.7); BASOPHIL # 0.1 TH/MM3 (0-0.2); EOSINOPHIL # 0.1 TH/MM3 (0-0.4); HEMATOCRIT 27.4 % (35.0-46.0); HEMO FLAGS DIFF FINAL; LYMPH % 6.2 % (9.0-44.0); LYMPHOCYTE # 0.4 TH/MM3 (1.0-4.8); MEAN CELL VOLUME 92.5 FL (80.0-100.0); MEAN CORPUSCULAR HGB CONC 32.4 % (32.0-36.0); MONO % 6.7 % (0.0-8.0); NEUT % 85.1 % (16.0-70.0); PLATELET COUNT 397 TH/MM3 (150-450); RED BLOOD COUNT 2.96 MIL/MM3 (4.00-5.30); WHITE BLOOD COUNT 7.2 TH/MM3 (4.0-11.0)
[2017-04-13 08:38] LABS: ALKALINE PHOSPHATASE 110 U/L (45-117); ALT (GPT) 24 U/L (10-53); ANION GAP 6 MEQ/L (5-15); AST (GOT) 25 U/L (15-37); BICARBONATE 31.8 MEQ/L (21.0-32.0); BLOOD UREA NITROGEN 52 MG/DL (7-18); CHLORIDE 93 MEQ/L (98-107); GLOMERULAR FILTRATION RATE 27 ML/MIN (>89); POTASSIUM 4.7 MEQ/L (3.5-5.1); SODIUM (NA) 131 MEQ/L (136-145); TOTAL BILIRUBIN ADULT 0.5 MG/DL (0.2-1.0)
[2017-04-13] MEDS: PANTOPRAZOLE SOD 40 MG DELAYED RELEASE TAB PO SCH (09:19)
[2017-04-13] MEDS: DULoxetine HCl DR 60 MG CAP PO SCH (09:19)
[2017-04-13] MEDS: ASPIRIN 81 MG CHEW TAB PO SCH (09:20)
[2017-04-13] MEDS: SODIUM CHLORIDE 0.9% FLUSH 10 ML FLUSH IV FLUSH SCH ×2 (09:20→22:41)
[2017-04-13] MEDS: DOCUSATE SODIUM 50 MG/SENNA 8.6 MG TAB PO SCH ×2 (09:20→21:00)
[2017-04-13] MEDS: DILTIAZEM HCL 90 MG TAB PO SCH ×3 (09:20→22:36)
[2017-04-13] MEDS: METOPROLOL TARTRATE 50 MG TAB PO SCH ×2 (09:20→22:40)
[2017-04-13] MEDS: RIVAROXABAN 15 MG TAB PO SCH (09:20)
[2017-04-13] MEDS ORDERED: SULFAMETHOXAZOLE-TRIMETHOPRIM DS 800-160 MG TAB PO ONE (10:15)
[2017-04-13] MEDS: LACTOBACILLUS ACIDOPHILUS TAB PO SCH ×2 (12:12→18:00)
--- NOTE | 2017-04-13 13:41 | HHI.PR ---
Subjective Remarks Patient feels no better today. Check she said she wasn't feeling better than when she came in. She's been having diuretics. Klebsiella UTI with resistance is found today and antibiotics adjusted to compensate for this. Objective Vital Signs Date Time Temp Pulse Resp B/P (MAP) Pulse Ox O2 Delivery O2 Flow Rate FiO2 04/13/17 11:55 97.8 55 16 101/52 (68) 97 04/13/17 09:15 97.6 85 22 118/58 (78) 96 04/13/17 05:38 64 04/13/17 05:18 51 04/13/17 04:54 98.2 61 18 113/57 (75) 91 04/13/17 00:45 93 Nasal Cannula 5.00 04/13/17 00:08 93 Oxyhood 3.00 04/12/17 23:01 98.2 56 17 89/55 (66) 04/12/17 20:35 98.4 52 18 107/52 (70) 95 04/12/17 16:34 98.0 73 16 118/58 (78) 97 04/12/17 16:00 62 I/O 04/12/17 04/12/17 04/12/17 04/13/17 04/13/17 04/13/17 07:00 15:00 23:00 07:00 15:00 23:00 Intake Total 250 ml Balance 250 ml IV Total 250 ml # Voids 5 4 1 # Bowel Movements 1 1 Result Diagram: 04/13/1715 04/13/17 0615 Objective Remarks GENERAL: NAD, A&Ox3 HEAD: Normocephalic. NECK: Supple, trachea midline. No lymphadenopathy. EYES: No scleral icterus. No injection or drainage. CARDIOVASCULAR: Regular rate and rhythm without murmurs, gallops, or rubs. RESPIRATORY: Breath sounds equal bilaterally. No accessory muscle use. Bilateral pulmonary edema, crackles. GASTROINTESTINAL: Abdomen soft, non-tender, nondistended. MUSCULOSKELETAL: No cyanosis, or edema. SKIN: Warm and dry. NEURO: No focal neurological deficitis. A/P Problem List: (1) CHF (congestive heart failure) ICD Code: I50.9 - Heart failure, unspecified Status: Acute (2) Bilateral pleural effusion ICD Code: J90 - Pleural effusion, not elsewhere classified Status: Acute (3) COPD (chronic obstructive pulmonary disease) ICD Code: J44.9 - Chronic obstructive pulmonary disease, unspecified Status: Chronic (4) JULIANE (acute kidney injury) ICD Code: N17.9 - Acute kidney failure, unspecified Status: Resolved (5) Acute on chronic diastolic CHF (congestive heart failure) ICD Code: I50.33 - Acute on chronic diastolic (congestive) heart failure Status: Resolved Assessment and Plan Assessment and plan 76-year-old female admitted secondary to congestive heart failure exacerbation with pulmonary edema and dyspnea with exertion. ESBL Klebsiella UTI sensitive to Bactrim, Bactrim started. Diuretics increased yesterday but have not been given long enough to have effect yet. Labs reviewed. Labs show evidence of renal strain. Monitor renal function closely. Labs ordered for further monitoring. Chest x-ray ordered for comparison. Patient also reports diarrhea and C. difficile screen ordered. Acute on chronic diastolic congestive heart failure Echo from 03/01/17 shows an ejection fraction of 65-70% Continue Lasix Lasix changed to 40 mg IV every morning and every mid day Elevated troponin related to CHF Continue aspirin Continue statin Continue metoprolol Chronic kidney disease stage III Acute renal insufficiency Continue diuresis and monitor renal function Continue Diamox A. fib with RVR Continue Lopressor Continue Cardizem Continue Xarelto Diabetes mellitus type 2 Follow blood sugars Insulin sliding scale Diabetic diet Lower extremity cellulitis Continue vancomycin Follow clinically for improvement DVT prophylaxis Continue Xarelto Discharge planning Improvement in respiratory status and functionality needed prior to discharge Varun Roy MD Apr 13, 2017 13:41
--- NOTE | 2017-04-13 14:22 | RADRPT ---
EXAM DATE/TIME: 04/13/2017 13:21 [facility] COMPARISON: CHEST SINGLE AP, April 11, 2017, 14:39. INDICATIONS : Difficulty breathing. MEDICAL HISTORY : Cardiovascular disease. Congestive heart failure. Hypertension. SURGICAL HISTORY : CABG. ENCOUNTER: Subsequent ACUITY: 3 days PAIN SCORE: 0/10 LOCATION: Bilateral chest FINDINGS: The heart is enlarged. There are large bilateral effusions and diffuse interstitial prominence most c onsistent with congestive failure. The osseous structures are intact. CONCLUSION: 1. Congestive failure which is worsened when compared to the prior dated 04/11/17. Varun Alvarez MD on April 13, 2017 at 14:20 Board Certified Radiologist. This report was verified electronically.
[2017-04-13] MEDS ORDERED: VANCOMYCIN INJ 750 MG in SODIUM CHLOR 0.9% 250 ML INJ 250 ML IV SCH (18:00)
[2017-04-13] MEDS: INSULIN DETEMIR 100 UNITS/ML VIAL SQ SCH (21:00)
[2017-04-13] MEDS: traZODone HCL 50 MG TAB PO SCH (22:38)
[2017-04-13] MEDS: ATORVASTATIN 80 MG TAB PO SCH (22:38)
[2017-04-13] MEDS: MIRTAZAPINE 15 MG TAB PO SCH (22:40)
[2017-04-13] MEDS: FENOFIBRATE 145 MG TAB PO SCH (22:40)
[2017-04-13] MEDS: SULFAMETHOXAZOLE-TRIMETHOPRIM DS 800-160 MG TAB PO SCH (22:41)
[2017-04-13] MEDS: valACYclovir HCL 500 MG TAB PO SCH (23:12)
[2017-04-14] VITALS (10 sets, daily range): BP systolic 98–131; BP diastolic 55–69; PULSE 49–82; RESP 16–24; TEMP 97.2–99; O2SAT 95–100
[2017-04-14] MEDS: hydrALAZINE HCL 25 MG TAB PO SCH ×3 (06:32→21:36)
[2017-04-14] MEDS: LEVOTHYROXINE SODIUM 150 MCG TAB PO SCH (06:32)
[2017-04-14] MEDS: FUROSEMIDE 20 MG/2 ML VIAL IV PUSH SCH ×2 (06:34→15:00)
[2017-04-14] MEDS: INSULIN ASPART SUPPLEMENTAL SCALE SQ SCH ×4 (08:00→21:00)
[2017-04-14] MEDS: DOCUSATE SODIUM 50 MG/SENNA 8.6 MG TAB PO SCH ×2 (09:00→21:35)
[2017-04-14] MEDS: ASPIRIN 81 MG CHEW TAB PO SCH (09:00)
[2017-04-14] MEDS: RIVAROXABAN 15 MG TAB PO SCH (09:00)
[2017-04-14] MEDS: PANTOPRAZOLE SOD 40 MG DELAYED RELEASE TAB PO SCH (09:05)
[2017-04-14] MEDS: SULFAMETHOXAZOLE-TRIMETHOPRIM DS 800-160 MG TAB PO SCH ×2 (09:05→21:35)
[2017-04-14] MEDS: DILTIAZEM HCL 90 MG TAB PO SCH ×4 (09:05→21:00)
[2017-04-14] MEDS: DULoxetine HCl DR 60 MG CAP PO SCH (09:05)
[2017-04-14] MEDS: METOPROLOL TARTRATE 50 MG TAB PO SCH ×2 (09:05→21:00)
[2017-04-14] MEDS: LACTOBACILLUS ACIDOPHILUS TAB PO SCH ×3 (09:05→16:57)
[2017-04-14] MEDS: SODIUM CHLORIDE 0.9% FLUSH 10 ML FLUSH IV FLUSH SCH ×2 (09:06→21:36)
[2017-04-14] MEDS ORDERED: PNEUMOCOCCAL POLYVALENT INJ 25 MCG/0.5 ML SYR IM ONE (10:00)
[2017-04-14] MEDS ORDERED: INFLUENZA VIRUS VACCINE (QUADRIVALENT) 0.5 ML SYR IM ONE (10:00)
--- NOTE | 2017-04-14 11:26 | RADRPT ---
EXAM DATE/TIME: 04/14/2017 11:09 [facility] COMPARISON: CHEST EXPIRATION ONLY, November 24, 2016, 4:07. INDICATIONS : S/p left side thoracentesisi MEDICAL HISTORY : Cardiovascular disease. Congestive heart failure. Hypertension. SURGICAL HISTORY : CABG. ENCOUNTER: Initial ACUITY: 4 - 6 days PAIN SCORE: 0/10 LOCATION: Left chest FINDINGS: A single frontal view of the chest shows no pneumothorax following left-sided thoracentesis. Consolid ation is again seen throughout the mid and right lower lobe. The heart remains enlarged. Median spivey otomy wires noted. CONCLUSION: 1. No pneumothorax following left thoracentesis. 2. Persistent consolidation involving the right lung. 3. Cardiomegaly. John Peace Jr., MD on April 14, 2017 at 11:23 Board Certified Radiologist. This report was verified electronically.
[2017-04-14] MEDS ORDERED: LIDOCAINE HCL 1% 20 ML VIAL ONE (11:32)
--- NOTE | 2017-04-14 11:45 | RADRPT ---
EXAM DATE/TIME: 04/14/2017 10:34 [facility] COMPARISON: US CHEST RIGHT, March 05, 2017, 13:39. INDICATIONS : Right pleural effusion. MEDICAL HISTORY : Myocardial infarction. Congestive heart failure. Hypercholesterolemia. Coronary artery disease. Afib. HTN. COPD. Emphysema. Pneumonia. Dyspnea. Ulcer. Hiatal hernia. GERD. Renal failure. Arthritis. Diab etes. Depression. MRSA. Anticoagulant therapy, Xarelto. SURGICAL HISTORY : CABG. Coronary artery stent. Bilateral cataracts. Teeth extraction. Cardiac cath. Lung scraped to r eadhere. Gastric bypass. ENCOUNTER: Subsequent ACUITY: 4-6 months PAIN SCORE: 2/10 LOCATION: Right chest MEASUREMENTS: SKIN TO PARIETAL PLEURA: Inadequate fluid SKIN TO MAX SAFE DEPTH: Inadequate fluid ESTIMATED FLUID VOLUME: 63 cc FLUID COMPOSITION: simple FINDINGS: No significant right pleural effusion observed. There is a tiny amount of pleural fluid noted within the base which is insufficient for safe thoracentesis. CONCLUSION: Tiny right effusion with insufficient volume for safe thoracentesis. John Peace Jr., MD on April 14, 2017 at 11:42 Board Certified Radiologist. This report was verified electronically.
--- NOTE | 2017-04-14 15:09 | RADRPT ---
EXAM DATE/TIME: 04/14/2017 10:38 [facility] COMPARISON: US GUIDED THORACENTESIS LEFT, June 17, 2016, 10:04. INDICATIONS : Left pleural effusion. MEDICAL HISTORY : Myocardial infarction. Congestive heart failure. Hypercholesterolemia. Coronary artery disease. Afib. HTN. COPD. Emphysema. Pneumonia. Dyspnea. Ulcer. Hiatal hernia. GERD. Renal failure. Arthritis. Diab etes. Depression. MRSA. Anticoagulant therapy, Xarelto. SURGICAL HISTORY : CABG Coronary artery stent. Bilateral cataracts. Teeth extraction. Cardiac cath. Lung scraped to filiberto dhere. Gastric bypass. ENCOUNTER: Subsequent ACUITY: 7 - 11 months PAIN SCORE: 2/10 LOCATION: Left chest FLUID: Total volume of 1,000 cc of clear, yellowbrown fluid was removed. Fluid was discarded. Thoracentesis was therapeutic only. TECHNIQUE: 1. Ultrasound guidance for thoracentesis. 2. Thoracentesis. The risks, benefits, and alternatives to ultrasound guided thoracentesis were explained to the patien t in lay simple terms, including the risk of bleeding and infection. Written and verbal informed con sent was obtained. Appropriate area for thoracentesis was marked under ultrasound guidance with the patient in the uprig ht position. Overlying skin was prepped and draped in the usual sterile fashion and with local anest hetic, a dermatotomy was made with an 11 blade scalpel. A 6 Polish thoracentesis catheter was placed in the pleural space and fluid was removed. Catheter was then removed and a sterile dressing applie d. There were no immediate complications. The patient tolerated the procedure well and the left the ultrasound suite in stable condition. Chest radiograph is to be obtained. CONCLUSION: Uncomplicated ultrasound guided left thoracentesis. John Peace Jr., MD on April 14, 2017 at 15:06 Board Certified Radiologist. This report was verified electronically.
--- NOTE | 2017-04-14 17:24 | HHI.PR ---
Subjective Remarks Significant improvement status post left thoracentesis of 1.2 L. Right side did not have a significant enough amount of fluid to do a thoracentesis. It appears that her pleurodesis on the right side was beneficial. Objective Vital Signs Date Time Temp Pulse Resp B/P (MAP) Pulse Ox O2 Delivery O2 Flow Rate FiO2 04/14/17 12:21 97.2 57 19 121/60 (80) 96 04/14/17 11:35 54 16 113/56 (75) 99 04/14/17 11:20 97.6 53 16 98/59 (72) 100 04/14/17 10:30 97.6 61 24 112/69 (83) 97 04/14/17 07:00 97.3 82 18 131/65 (87) 97 04/14/17 04:00 98.5 76 18 122/65 (84) 96 04/14/17 00:00 98.6 71 18 106/62 (77) 98 04/13/17 22:26 99 Nasal Cannula 3.00 04/13/17 20:00 97.8 72 18 111/63 (79) 100 04/13/17 20:00 78 I/O 04/13/17 04/13/17 04/13/17 04/14/17 04/14/17 04/14/17 07:00 15:00 23:00 07:00 15:00 23:00 Intake Total 200 ml Output Total 320 ml Balance -120 ml Intake Oral 200 ml Output Urine Total 320 ml # Voids 4 1 # Bowel Movements 1 0 Result Diagram: 04/13/1761404/13/1715 Objective Remarks GENERAL: NAD, A&Ox3 HEAD: Normocephalic. NECK: Supple, trachea midline. No lymphadenopathy. EYES: No scleral icterus. No injection or drainage. CARDIOVASCULAR: Regular rate and rhythm without murmurs, gallops, or rubs. RESPIRATORY: Breath sounds equal bilaterally. No accessory muscle use. Improving basilar crackles increased volume of air. GASTROINTESTINAL: Abdomen soft, non-tender, nondistended. MUSCULOSKELETAL: No cyanosis, or edema. SKIN: Warm and dry. NEURO: No focal neurological deficitis. A/P Problem List: (1) CHF (congestive heart failure) ICD Code: I50.9 - Heart failure, unspecified Status: Acute (2) Bilateral pleural effusion ICD Code: J90 - Pleural effusion, not elsewhere classified Status: Acute (3) COPD (chronic obstructive pulmonary disease) ICD Code: J44.9 - Chronic obstructive pulmonary disease, unspecified Status: Chronic (4) JULIANE (acute kidney injury) ICD Code: N17.9 - Acute kidney failure, unspecified Status: Resolved (5) Acute on chronic diastolic CHF (congestive heart failure) ICD Code: I50.33 - Acute on chronic diastolic (congestive) heart failure Status: Resolved Assessment and Plan Assessment and plan 76-year-old female admitted secondary to congestive heart failure exacerbation with pulmonary edema and dyspnea with exertion. ESBL Klebsiella UTI sensitive to Bactrim, Bactrim started. Diuretics increased yesterday but have not been given long enough to have effect yet. Labs reviewed. Labs show evidence of renal strain. Wean diuretic. Breathing status improved status post left thoracentesis. Cardiothoracic surgery evaluation and opinion pending. Acute on chronic diastolic congestive heart failure Echo from 03/01/17 shows an ejection fraction of 65-70% Continue Lasix Lasix changed to 40 mg IV every morning and every mid day Elevated troponin related to CHF Continue aspirin Continue statin Continue metoprolol Chronic kidney disease stage III Acute renal insufficiency Continue diuresis and monitor renal function Continue Diamox A. fib with RVR Continue Lopressor Continue Cardizem Continue Xarelto Diabetes mellitus type 2 Follow blood sugars Insulin sliding scale Diabetic diet Lower extremity cellulitis Continue vancomycin Follow clinically for improvement DVT prophylaxis Continue Xarelto Discharge planning Improvement in respiratory status and functionality needed prior to discharge Varun Roy MD Apr 14, 2017 17:24
[2017-04-14] MEDS ORDERED: FUROSEMIDE 40 MG/4 ML VIAL ONE (17:25)
[2017-04-14] MEDS: INSULIN DETEMIR 100 UNITS/ML VIAL SQ SCH (21:00)
[2017-04-14] MEDS: traZODone HCL 50 MG TAB PO SCH (21:35)
[2017-04-14] MEDS: ATORVASTATIN 80 MG TAB PO SCH (21:35)
[2017-04-14] MEDS: FENOFIBRATE 145 MG TAB PO SCH (21:35)
[2017-04-14] MEDS: MIRTAZAPINE 15 MG TAB PO SCH (21:35)
[2017-04-14] MEDS: valACYclovir HCL 500 MG TAB PO SCH (21:35)
[2017-04-14] MEDS: ALPRAZolam 0.25 MG TAB PO PRN (21:36)
[2017-04-15] VITALS (10 sets, daily range): BP systolic 104–139; BP diastolic 55–73; PULSE 59–95; RESP 16–18; TEMP 98–99.4; O2SAT 93–99
[2017-04-15] MEDS: hydrALAZINE HCL 25 MG TAB PO SCH ×3 (06:00→22:00)
[2017-04-15] MEDS: LEVOTHYROXINE SODIUM 150 MCG TAB PO SCH (06:36)
--- NOTE | 2017-04-15 07:43 | MB ---
cc: MI BLACKWELL DATE OF CONSULTATION: 04/14/2017 HISTORY OF PRESENT ILLNESS A 76-year-old patient known to our service, who underwent coronary artery bypass grafting x3 March 15, 2016, history of coronary artery disease, prior to that she has had some stenting in 2007. Unfortunately, followed postoperatively where she developed some pleural effusions. She has had multiple thoracenteses in the past, mainly on the right. She had a right thoracoscopic exploration to drain the right pleural effusion 12/20/2016 with pleurodesis and following that she had a Pneumostat which then fell out. She has had these recurrent pleural effusions, however, this time she was admitted with acute shortness of breath. She had been seen recently by cardiology for similar symptoms and was admitted March 01 through the for acute CHF, atrial fibrillation with RVR with lower extremity edema. They had increased her Lasix at the time but she apparently forgot and did not take her meds at home. On arrival her O2 sat was 97. They did do a chest x-ray which showed recurrent pleural effusion, however, this time was large bilateral effusion. We were consulted to evaluate for recurrent pleural effusions. She however, in the meantime has undergone ultrasound-guided thoracentesis, they drained approximately 1 liter of fluid. PAST MEDICAL HISTORY Her past medical history significant for: 1. Coronary artery disease. 2. CHF with prior echo 03/06/2017 with EF of 65%. 3. Chronic atrial fibrillation on Xarelto. 4. Anxiety. 5. History of CVA. 6. Chronic kidney disease. 7. Recurrent pleural effusions. PAST SURGICAL HISTORY 1. Gastric bypass. 2. Coronary artery bypass graft x3 March 15, 2016. 3. Right thoracoscopic exploration to drain the right pleural effusion 12/20/2016. ALLERGIES She has allergies to ERYTHROMYCIN AND PENICILLIN. FAMILY HISTORY Noncontributory. SOCIAL HISTORY Negative for tobacco or alcohol. REVIEW OF SYSTEMS Review of systems as above in HPI, otherwise 12-systems unremarkable. PHYSICAL EXAMINATION VITAL SIGNS: Blood pressure 120/60, heart rate 60, afebrile. GENERAL: Patient is awake, alert, in no acute distress. HEENT: Head is normocephalic, atraumatic. Pupils equal and reactive. Oral mucosa pink, moist. NECK: Supple. No JVD. HEART: Heart sounds S1-S2, regular rate and rhythm. Soft systolic murmur. LUNGS: Diminished in the bases, left greater than right with few basilar crackles. ABDOMEN: Soft, nontender. No masses or organomegaly. EXTREMITIES: No cyanosis, clubbing or edema. LABORATORY FINDINGS Shows hemoglobin 8.9, hematocrit 27, white cell count 7.2, platelet count of 397, sodium 131, potassium 4.7, BUN of 52, creatinine 1.82, glucose 109. IMAGING STUDIES Radiological exams as above. IMPRESSION This is a 76-year-old patient known to our service with recurrent pleural effusions. She has undergone a right thoracoscopy in November 2016 with pleurodesis and now has left pleural effusion which was drained by ultrasound-guided. At this time no surgical intervention, however, will continue to follow. She also in the meantime has a UTI with Klebsiella. She is currently on antibiotics with sulfa. Her Xarelto has been resuming. She also has history of COPD, history of CVA, depression, history of GI bleed in the past, status post EGD. Further planning as per Dr. Mi Blackwell. No surgical intervention at this time. Dictated by: MARINA Jorge MD RADHA Hernandes/ABRAHAM /1:44 PM /7:38 AM
[2017-04-15 07:48] LABS: AUTOMATED NEUTROPHIL # 4.3 TH/MM3 (1.8-7.7); BASOPHIL # 0.1 TH/MM3 (0-0.2); BASOPHIL % 1.3 % (0.0-2.0); EOSINOPHIL # 0.1 TH/MM3 (0-0.4); EOSINOPHIL % 1.3 % (0.0-4.0); HEMATOCRIT 26.1 % (35.0-46.0); HEMO FLAGS DIFF FINAL; LYMPH % 13.2 % (9.0-44.0); LYMPHOCYTE # 0.7 TH/MM3 (1.0-4.8); MEAN CELL VOLUME 89.4 FL (80.0-100.0); MEAN CORPUSCULAR HEMOGLOBIN 30.1 PG (27.0-34.0); MEAN CORPUSCULAR HGB CONC 33.7 % (32.0-36.0); MONO % 7.5 % (0.0-8.0); NEUT % 76.7 % (16.0-70.0); PLATELET COUNT 366 TH/MM3 (150-450); RED BLOOD COUNT 2.92 MIL/MM3 (4.00-5.30); RED CELL DISTRIBUTION WIDTH 19.9 % (11.6-17.2); WHITE BLOOD COUNT 5.6 TH/MM3 (4.0-11.0)
[2017-04-15] MEDS: INSULIN ASPART SUPPLEMENTAL SCALE SQ SCH ×4 (08:00→21:00)
[2017-04-15 08:11] LABS: ANION GAP 6 MEQ/L (5-15); AST (GOT) 20 U/L (15-37); BICARBONATE 35.5 MEQ/L (21.0-32.0); BLOOD UREA NITROGEN 50 MG/DL (7-18); CHLORIDE 91 MEQ/L (98-107); GLOMERULAR FILTRATION RATE 26 ML/MIN (>89); POTASSIUM 4.6 MEQ/L (3.5-5.1); SODIUM (NA) 132 MEQ/L (136-145)
[2017-04-15 08:16] LABS: ALKALINE PHOSPHATASE 100 U/L (45-117); ALT (GPT) 20 U/L (10-53); TOTAL BILIRUBIN ADULT 0.4 MG/DL (0.2-1.0)
[2017-04-15] MEDS: DILTIAZEM HCL 90 MG TAB PO SCH ×4 (09:21→22:02)
[2017-04-15] MEDS: PANTOPRAZOLE SOD 40 MG DELAYED RELEASE TAB PO SCH (09:21)
[2017-04-15] MEDS: METOPROLOL TARTRATE 50 MG TAB PO SCH ×2 (09:21→22:02)
[2017-04-15] MEDS: DULoxetine HCl DR 60 MG CAP PO SCH (09:21)
[2017-04-15] MEDS: FUROSEMIDE 40 MG TAB PO SCH (09:21)
[2017-04-15] MEDS: DOCUSATE SODIUM 50 MG/SENNA 8.6 MG TAB PO SCH ×2 (09:21→21:31)
[2017-04-15] MEDS: RIVAROXABAN 15 MG TAB PO SCH (09:21)
[2017-04-15] MEDS: SULFAMETHOXAZOLE-TRIMETHOPRIM DS 800-160 MG TAB PO SCH ×2 (09:21→21:00)
[2017-04-15] MEDS: LACTOBACILLUS ACIDOPHILUS TAB PO SCH ×3 (09:21→17:41)
[2017-04-15] MEDS: ASPIRIN 81 MG CHEW TAB PO SCH (09:21)
[2017-04-15] MEDS: SODIUM CHLORIDE 0.9% FLUSH 10 ML FLUSH IV FLUSH SCH ×2 (09:22→21:35)
--- NOTE | 2017-04-15 09:46 | HHI.PR ---
Subjective Remarks Respiratory status remained stable. Patient complains of sore throat with some hoarseness. Oral candidiasis present. No other complaints from patient. Objective Vital Signs Date Time Temp Pulse Resp B/P (MAP) Pulse Ox O2 Delivery O2 Flow Rate FiO2 04/15/17 04:00 98.0 82 18 106/58 (74) 99 04/15/17 00:00 99.4 59 18 128/58 (81) 95 04/14/17 23:00 49 04/14/17 20:00 99.0 56 19 117/55 (75) 95 04/14/17 16:09 97.5 63 18 107/59 (75) 100 04/14/17 12:21 97.2 57 19 121/60 (80) 96 04/14/17 11:35 54 16 113/56 (75) 99 04/14/17 11:20 97.6 53 16 98/59 (72) 100 04/14/17 10:30 97.6 61 24 112/69 (83) 97 I/O 04/14/17 04/14/17 04/14/17 04/15/17 04/15/17 04/15/17 07:00 15:00 23:00 07:00 15:00 23:00 Intake Total 200 ml 480 ml 420 ml Output Total 320 ml 700 ml Balance -120 ml 480 ml -280 ml Intake Oral 200 ml 480 ml 420 ml Output Urine Total 320 ml 700 ml # Voids 3 # Bowel Movements 0 1 0 Result Diagram: 04/15/17 0610 04/15/17 0610 Objective Remarks GENERAL: NAD, A&Ox3 HEAD: Normocephalic. MOUTH: Oral mucosa is erythematous with white plaques, oral candidiasis. NECK: Supple, trachea midline. No lymphadenopathy. EYES: No scleral icterus. No injection or drainage. CARDIOVASCULAR: Regular rate and rhythm without murmurs, gallops, or rubs. RESPIRATORY: Breath sounds equal bilaterally. No accessory muscle use. Improving basilar crackles increased volume of air. GASTROINTESTINAL: Abdomen soft, non-tender, nondistended. MUSCULOSKELETAL: No cyanosis, or edema. SKIN: Warm and dry. NEURO: No focal neurological deficitis. A/P Problem List: (1) CHF (congestive heart failure) ICD Code: I50.9 - Heart failure, unspecified Status: Acute (2) Bilateral pleural effusion ICD Code: J90 - Pleural effusion, not elsewhere classified Status: Acute (3) COPD (chronic obstructive pulmonary disease) ICD Code: J44.9 - Chronic obstructive pulmonary disease, unspecified Status: Chronic (4) JULIANE (acute kidney injury) ICD Code: N17.9 - Acute kidney failure, unspecified Status: Resolved (5) Acute on chronic diastolic CHF (congestive heart failure) ICD Code: I50.33 - Acute on chronic diastolic (congestive) heart failure Status: Resolved Assessment and Plan Assessment and plan 76-year-old female admitted secondary to congestive heart failure exacerbation with pulmonary edema and dyspnea with exertion. ESBL Klebsiella UTI sensitive to Bactrim. Bactrim continued. Oral candidiasis present. Treatment initiated. Repeat chest x-ray in 24 hours to assess any recurrence of pleural effusion. Oral candidiasis Start nystatin swish and swallow Likely aggravated by antibiotic use Monitor for improvement Acute on chronic diastolic congestive heart failure Echo from 03/01/17 shows an ejection fraction of 65-70% Continue Lasix Lasix changed to 40 mg IV every morning and every mid day Elevated troponin related to CHF Continue aspirin Continue statin Continue metoprolol Chronic kidney disease stage III Acute renal insufficiency Continue diuresis and monitor renal function Continue Diamox A. fib with RVR Continue Lopressor Continue Cardizem Continue Xarelto Diabetes mellitus type 2 Follow blood sugars Insulin sliding scale Diabetic diet Lower extremity cellulitis Continue vancomycin Follow clinically for improvement DVT prophylaxis Continue Xarelto Discharge planning Improvement in respiratory status and functionality needed prior to discharge Varun Roy MD Apr 15, 2017 09:46
[2017-04-15] MEDS: NYSTATIN SUSP 500,000 U/5 ML CUP SWISH-SWAL SCH ×3 (12:02→21:34)
[2017-04-15] MEDS ORDERED: PHARMACY ORDERED LAB ONE (17:45)
[2017-04-15] MEDS: INSULIN DETEMIR 100 UNITS/ML VIAL SQ SCH (21:00)
[2017-04-15] MEDS: MIRTAZAPINE 15 MG TAB PO SCH (21:34)
[2017-04-15] MEDS: traZODone HCL 50 MG TAB PO SCH (21:34)
[2017-04-15] MEDS: FENOFIBRATE 145 MG TAB PO SCH (21:34)
[2017-04-15] MEDS: ATORVASTATIN 80 MG TAB PO SCH (21:34)
[2017-04-15] MEDS: valACYclovir HCL 500 MG TAB PO SCH (21:34)
[2017-04-16] VITALS (9 sets, daily range): BP systolic 107–130; BP diastolic 58–75; PULSE 57–84; RESP 18–21; TEMP 98.1–98.5; O2SAT 93–100
[2017-04-16] MEDS: ALPRAZolam 0.25 MG TAB PO PRN ×2 (00:40→21:05)
[2017-04-16] MEDS: LEVOTHYROXINE SODIUM 150 MCG TAB PO SCH (05:01)
[2017-04-16] MEDS: hydrALAZINE HCL 25 MG TAB PO SCH ×3 (05:02→20:56)
[2017-04-16 07:40] LABS: AUTOMATED NEUTROPHIL # 3.6 TH/MM3 (1.8-7.7); BASOPHIL % 0.8 % (0.0-2.0); EOSINOPHIL # 0.1 TH/MM3 (0-0.4); EOSINOPHIL % 1.3 % (0.0-4.0); HEMATOCRIT 23.8 % (35.0-46.0); HEMO FLAGS DIFF FINAL; LYMPH % 11.9 % (9.0-44.0); LYMPHOCYTE # 0.6 TH/MM3 (1.0-4.8); MEAN CELL VOLUME 90.2 FL (80.0-100.0); MEAN CORPUSCULAR HEMOGLOBIN 30.6 PG (27.0-34.0); MEAN CORPUSCULAR HGB CONC 33.9 % (32.0-36.0); MONO % 9.3 % (0.0-8.0); NEUT % 76.7 % (16.0-70.0); PLATELET COUNT 341 TH/MM3 (150-450); RED BLOOD COUNT 2.64 MIL/MM3 (4.00-5.30); RED CELL DISTRIBUTION WIDTH 19.9 % (11.6-17.2); WHITE BLOOD COUNT 4.7 TH/MM3 (4.0-11.0)
[2017-04-16] MEDS: INSULIN ASPART SUPPLEMENTAL SCALE SQ SCH ×4 (08:00→21:00)
[2017-04-16 08:02] LABS: ANION GAP 4 MEQ/L (5-15); AST (GOT) 22 U/L (15-37); BICARBONATE 38.8 MEQ/L (21.0-32.0); BLOOD UREA NITROGEN 44 MG/DL (7-18); CHLORIDE 92 MEQ/L (98-107); GLOMERULAR FILTRATION RATE 28 ML/MIN (>89); POTASSIUM 4.5 MEQ/L (3.5-5.1); SODIUM (NA) 135 MEQ/L (136-145)
[2017-04-16 08:06] LABS: ALKALINE PHOSPHATASE 95 U/L (45-117); ALT (GPT) 18 U/L (10-53); TOTAL BILIRUBIN ADULT 0.4 MG/DL (0.2-1.0)
[2017-04-16] MEDS: SODIUM CHLORIDE 0.9% FLUSH 10 ML FLUSH IV FLUSH SCH ×2 (08:55→21:03)
[2017-04-16] MEDS: ASPIRIN 81 MG CHEW TAB PO SCH (09:00)
[2017-04-16] MEDS: LACTOBACILLUS ACIDOPHILUS TAB PO SCH ×3 (09:00→18:25)
[2017-04-16] MEDS: DULoxetine HCl DR 60 MG CAP PO SCH (09:03)
[2017-04-16] MEDS: DILTIAZEM HCL 90 MG TAB PO SCH ×4 (09:03→20:54)
[2017-04-16] MEDS: FUROSEMIDE 40 MG TAB PO SCH (09:03)
[2017-04-16] MEDS: PANTOPRAZOLE SOD 40 MG DELAYED RELEASE TAB PO SCH (09:04)
[2017-04-16] MEDS: NYSTATIN SUSP 500,000 U/5 ML CUP SWISH-SWAL SCH ×4 (09:04→20:56)
[2017-04-16] MEDS: METOPROLOL TARTRATE 50 MG TAB PO SCH ×2 (09:04→20:55)
[2017-04-16] MEDS: RIVAROXABAN 15 MG TAB PO SCH (09:04)
[2017-04-16] MEDS: SULFAMETHOXAZOLE-TRIMETHOPRIM DS 800-160 MG TAB PO SCH ×2 (09:04→20:53)
[2017-04-16] MEDS: DOCUSATE SODIUM 50 MG/SENNA 8.6 MG TAB PO SCH (09:05)
--- NOTE | 2017-04-16 10:43 | RADRPT ---
EXAM DATE/TIME: 04/16/2017 09:55 [facility] COMPARISON: CHEST PA & LAT, April 13, 2017, 13:21. INDICATIONS : Shortness of breath, chest congestion MEDICAL HISTORY : Cardiovascular disease. Congestive heart failure. Hypertension SURGICAL HISTORY : CABG. ENCOUNTER: Subsequent ACUITY: 1 week PAIN SCORE: 0/10 LOCATION: Bilateral chest FINDINGS: PA and lateral views of the chest. Median sternotomy wires again seen. Marked cardiac silhouette enla rgement again seen. Decrease in diffuse bilateral pulmonary parenchymal opacity. Moderate-sized bilat eral pleural effusions also decreased. CONCLUSION: Decrease in bilateral pulmonary parenchymal opacity and decrease in bilateral pleural effusions. Rubén Hough MD on April 16, 2017 at 10:30 Board Certified Radiologist. This report was verified electronically.
[2017-04-16] MEDS ORDERED: FLUCONAZOLE 100 MG TAB PO ONE (14:00)
--- NOTE | 2017-04-16 16:55 | HHI.PR ---
Subjective Remarks Repeat imaging today shows decrease pleural effusions bilaterally compared to prior image. She also has decrease in her pulmonary edema compared to previous images. Today the patient reports vulvar irritation. This could be secondary to candidiasis the patient also states she has been on ketoconazole cream chronically so this may represent tinea. She reports diarrhea. Objective Vital Signs Date Time Temp Pulse Resp B/P (MAP) Pulse Ox O2 Delivery O2 Flow Rate FiO2 04/16/17 12:00 57 04/16/17 09:14 93 Nasal Cannula 3.00 04/16/17 08:00 79 04/16/17 04:00 98.4 75 20 108/61 (77) 93 04/16/17 00:00 98.2 69 21 107/59 (75) 94 04/15/17 23:00 69 04/15/17 21:57 70 18 97 04/15/17 20:00 98.3 59 17 110/56 (74) 96 04/15/17 17:37 94 Nasal Cannula 3.00 I/O 04/15/17 04/15/17 04/15/17 04/16/17 04/16/17 04/16/17 07:00 15:00 23:00 07:00 15:00 23:00 Intake Total 420 ml 600 ml 440 ml Output Total 700 ml 650 ml Balance -280 ml 600 ml -210 ml Intake Oral 420 ml 600 ml 440 ml Output Urine Total 700 ml 650 ml # Voids 3 # Bowel Movements 0 1 Result Diagram: 04/16/17 0536 04/16/17 0536 Objective Remarks GENERAL: NAD, A&Ox3 HEAD: Normocephalic. MOUTH: Oral mucosa is erythematous with white plaques, oral candidiasis. NECK: Supple, trachea midline. No lymphadenopathy. EYES: No scleral icterus. No injection or drainage. CARDIOVASCULAR: Regular rate and rhythm without murmurs, gallops, or rubs. RESPIRATORY: Breath sounds equal bilaterally. No accessory muscle use. Improving basilar crackles increased volume of air. GASTROINTESTINAL: Abdomen soft, non-tender, nondistended. MUSCULOSKELETAL: No cyanosis, or edema. SKIN: Warm and dry. NEURO: No focal neurological deficitis. A/P Problem List: (1) CHF (congestive heart failure) ICD Code: I50.9 - Heart failure, unspecified Status: Acute (2) Bilateral pleural effusion ICD Code: J90 - Pleural effusion, not elsewhere classified Status: Acute (3) COPD (chronic obstructive pulmonary disease) ICD Code: J44.9 - Chronic obstructive pulmonary disease, unspecified Status: Chronic (4) JULIANE (acute kidney injury) ICD Code: N17.9 - Acute kidney failure, unspecified Status: Resolved (5) Acute on chronic diastolic CHF (congestive heart failure) ICD Code: I50.33 - Acute on chronic diastolic (congestive) heart failure Status: Resolved Assessment and Plan Assessment and plan 76-year-old female admitted secondary to congestive heart failure exacerbation with pulmonary edema and dyspnea with exertion. ESBL Klebsiella UTI sensitive to Bactrim. Bactrim continued. Oral candidiasis improved. Chest x-ray shows stability. Possible discharge tomorrow if stability continues. Vaginal candidiasis Diflucan Resume topical ketoconazole for possible tinea component Oral candidiasis Start nystatin swish and swallow Likely aggravated by antibiotic use Monitor for improvement Acute on chronic diastolic congestive heart failure Echo from 03/01/17 shows an ejection fraction of 65-70% Continue Lasix Lasix changed to 40 mg IV every morning and every mid day Elevated troponin related to CHF Continue aspirin Continue statin Continue metoprolol Chronic kidney disease stage III Acute renal insufficiency Continue diuresis and monitor renal function Continue Diamox A. fib with RVR Continue Lopressor Continue Cardizem Continue Xarelto Diabetes mellitus type 2 Follow blood sugars Insulin sliding scale Diabetic diet Lower extremity cellulitis Continue vancomycin Follow clinically for improvement DVT prophylaxis Continue Xarelto Discharge planning Improvement in respiratory status and functionality needed prior to discharge Varun Roy MD Apr 16, 2017 16:55
[2017-04-16] MEDS: ATORVASTATIN 80 MG TAB PO SCH (20:53)
[2017-04-16] MEDS: valACYclovir HCL 500 MG TAB PO SCH (20:54)
[2017-04-16] MEDS: traZODone HCL 50 MG TAB PO SCH (20:54)
[2017-04-16] MEDS: FENOFIBRATE 145 MG TAB PO SCH (20:55)
[2017-04-16] MEDS: MIRTAZAPINE 15 MG TAB PO SCH (20:55)
[2017-04-16] MEDS: INSULIN DETEMIR 100 UNITS/ML VIAL SQ SCH (21:00)
[2017-04-17] VITALS (8 sets, daily range): BP systolic 90–113; BP diastolic 54–62; PULSE 49–80; RESP 16–19; TEMP 97.4–98.2; O2SAT 92–96
[2017-04-17] MEDS: ALPRAZolam 0.25 MG TAB PO PRN ×2 (03:45→16:28)
[2017-04-17] MEDS: LEVOTHYROXINE SODIUM 150 MCG TAB PO SCH (06:12)
[2017-04-17] MEDS: hydrALAZINE HCL 25 MG TAB PO SCH ×3 (06:12→23:21)
[2017-04-17] MEDS: INSULIN ASPART SUPPLEMENTAL SCALE SQ SCH ×4 (08:00→21:06)
[2017-04-17] MEDS: LACTOBACILLUS ACIDOPHILUS TAB PO SCH ×3 (09:00→18:44)
[2017-04-17] MEDS: KETOCONAZOLE 2% CREAM 15 GM TOPICAL SCH (09:00)
[2017-04-17 09:27] LABS: AUTOMATED NEUTROPHIL # 4.8 TH/MM3 (1.8-7.7); BASOPHIL % 0.6 % (0.0-2.0); EOSINOPHIL # 0.1 TH/MM3 (0-0.4); EOSINOPHIL % 1.4 % (0.0-4.0); HEMATOCRIT 26.2 % (35.0-46.0); HEMO FLAGS DIFF FINAL; LYMPH % 8.1 % (9.0-44.0); LYMPHOCYTE # 0.5 TH/MM3 (1.0-4.8); MEAN CELL VOLUME 90.9 FL (80.0-100.0); MEAN CORPUSCULAR HEMOGLOBIN 29.6 PG (27.0-34.0); MEAN CORPUSCULAR HGB CONC 32.6 % (32.0-36.0); MONO % 8.9 % (0.0-8.0); PLATELET COUNT 394 TH/MM3 (150-450); RED BLOOD COUNT 2.88 MIL/MM3 (4.00-5.30); RED CELL DISTRIBUTION WIDTH 20.6 % (11.6-17.2); WHITE BLOOD COUNT 5.9 TH/MM3 (4.0-11.0)
[2017-04-17] MEDS: METOPROLOL TARTRATE 50 MG TAB PO SCH ×2 (09:55→20:40)
[2017-04-17] MEDS: SULFAMETHOXAZOLE-TRIMETHOPRIM DS 800-160 MG TAB PO SCH ×2 (09:55→20:40)
[2017-04-17] MEDS: PANTOPRAZOLE SOD 40 MG DELAYED RELEASE TAB PO SCH (09:55)
[2017-04-17] MEDS: RIVAROXABAN 15 MG TAB PO SCH (09:55)
[2017-04-17] MEDS: NYSTATIN SUSP 500,000 U/5 ML CUP SWISH-SWAL SCH ×4 (09:55→20:46)
[2017-04-17] MEDS: DILTIAZEM HCL 90 MG TAB PO SCH ×4 (09:55→20:42)
[2017-04-17] MEDS: FUROSEMIDE 40 MG TAB PO SCH (09:55)
[2017-04-17] MEDS: ASPIRIN 81 MG CHEW TAB PO SCH (09:55)
[2017-04-17 09:56] LABS: ANION GAP 4 MEQ/L (5-15); BICARBONATE 36.8 MEQ/L (21.0-32.0); BLOOD UREA NITROGEN 46 MG/DL (7-18); CHLORIDE 92 MEQ/L (98-107); POTASSIUM 4.7 MEQ/L (3.5-5.1); SODIUM (NA) 133 MEQ/L (136-145)
[2017-04-17] MEDS: SODIUM CHLORIDE 0.9% FLUSH 10 ML FLUSH IV FLUSH SCH ×2 (09:56→20:43)
[2017-04-17 09:57] LABS: AST (GOT) 21 U/L (15-37); GLOMERULAR FILTRATION RATE 25 ML/MIN (>89)
[2017-04-17 10:01] LABS: ALKALINE PHOSPHATASE 93 U/L (45-117); ALT (GPT) 19 U/L (10-53); TOTAL BILIRUBIN ADULT 0.4 MG/DL (0.2-1.0)
[2017-04-17] MEDS: DULoxetine HCl DR 60 MG CAP PO SCH (12:39)
[2017-04-17] MEDS ORDERED: MAGN30S PO (15:10)
[2017-04-17] MEDS ORDERED: Ketoconazole 2% Cream TOPICAL (15:10)
[2017-04-17] MEDS ORDERED: LACT PO (15:10)
[2017-04-17] MEDS ORDERED: Albuterol-Ipratropium Neb NEB (15:10)
[2017-04-17] MEDS ORDERED: METO-309 PO (15:10)
[2017-04-17] MEDS ORDERED: SULF1TAB23 PO (15:10)
[2017-04-17] MEDS ORDERED: Nystatin Liq SWISH-SWAL (15:10)
--- NOTE | 2017-04-17 15:14 | HHI.DS ---
Discharge Summary Admission Date Apr 11, 2017 at 11:31 Discharge Date: Apr 17, 2017 Admitting Diagnosis (1) CHF (congestive heart failure) ICD Code: I50.9 - Heart failure, unspecified Diagnosis: Principal (2) A-fib ICD Code: I48.91 - Unspecified atrial fibrillation Diagnosis: Secondary (3) Elevated troponin ICD Code: R74.8 - Abnormal levels of other serum enzymes Diagnosis: Secondary (4) HTN (hypertension) ICD Code: I10 - Essential (primary) hypertension Diagnosis: Secondary (5) DM (diabetes mellitus) ICD Code: E11.9 - Type 2 diabetes mellitus without complications Diagnosis: Secondary Procedures None Brief History - From Admission This is a 76-year-old female with a PMH of HTN, CHF (Echo 03/06/17 w/ EF 65-70%) , A-fib on Xarelto, Anxiety, Depression, COPD and h/o CVA who presented to the ER w/ complaints of bilateral lower extremity edema x2 wks. Recent admit 03/01- 03/08/17 for similar complaints, s/p eval by Cardiology, started on aggressive diuresis and weaned from 80mg bid to 40mg bid to Lasix 20mg bid at time of d/c. States she forgot to take her Lasix and then got confused as to how much Lasix she should be taking. Denies chest pain, cough or SOB. On arrival, BP 113/57 HR 72, O2 sat 97% on RA, Afebrile. CBC at baseline. Creatinine 1.72, previous and 1.08 on 03/08/17. Troponin 0.07. EKG with no acute ischemia. CXR with cardiomegaly, intra-alveolar pulmonary edema and small effusions. CBC/BMP: 04/17/17 0857 04/17/17 0857 Significant Findings Laboratory Tests Test 04/15/17 06:10 04/16/17 05:36 04/17/17 08:57 Red Blood Count 2.92 MIL/MM3 (4.00-5.30) 2.64 MIL/MM3 (4.00-5.30) 2.88 MIL/MM3 (4.00-5.30) Hemoglobin 8.8 GM/DL (11.6-15.3) 8.1 GM/DL (11.6-15.3) 8.5 GM/DL (11.6-15.3) Hematocrit 26.1 % (35.0-46.0) 23.8 % (35.0-46.0) 26.2 % (35.0-46.0) Red Cell Distribution Width 19.9 % (11.6-17.2) 19.9 % (11.6-17.2) 20.6 % (11.6-17.2) Neutrophils (%) (Auto) 76.7 % (16.0-70.0) 76.7 % (16.0-70.0) 81.0 % (16.0-70.0) Lymphocytes # (Auto) 0.7 TH/MM3 (1.0-4.8) 0.6 TH/MM3 (1.0-4.8) 0.5 TH/MM3 (1.0-4.8) Blood Urea Nitrogen 50 MG/DL (7-18) 44 MG/DL (7-18) 46 MG/DL (7-18) Creatinine 1.87 MG/DL (0.50-1.00) 1.75 MG/DL (0.50-1.00) 1.93 MG/DL (0.50-1.00) Random Glucose 149 MG/DL (74-106) 113 MG/DL (74-106) Albumin 2.9 GM/DL (3.4-5.0) 2.9 GM/DL (3.4-5.0) 2.9 GM/DL (3.4-5.0) Sodium Level 132 MEQ/L (136-145) 135 MEQ/L (136-145) 133 MEQ/L (136-145) Chloride Level 91 MEQ/L (98-107) 92 MEQ/L (98-107) 92 MEQ/L (98-107) Carbon Dioxide Level 35.5 MEQ/L (21.0-32.0) 38.8 MEQ/L (21.0-32.0) 36.8 MEQ/L (21.0-32.0) Estimat Glomerular Filtration Rate 26 ML/MIN (>89) 28 ML/MIN (>89) 25 ML/MIN (>89) Monocytes (%) (Auto) 9.3 % (0.0-8.0) 8.9 % (0.0-8.0) Anion Gap 4 MEQ/L (5-15) 4 MEQ/L (5-15) Lymphocytes (%) (Auto) 8.1 % (9.0-44.0) PE at Discharge GENERAL: Elderly white female in no acute distress. Skin: Improving Cellulitis right anterior leg HEENT: PERRLA, EOMI. No scleral icterus or conjunctival pallor. No lid lag or facial droop. CARDIOVASCULAR: Irregularly irregular No obvious murmurs to auscultation. No chest tenderness to palpation. RESPIRATORY: No obvious rhonchi or wheezing. Decreased Breath sounds mildly decreased at bases bilaterally GASTROINTESTINAL: Abdomen soft, non-tender, nondistended. BS normal. MUSCULOSKELETAL: Extremities without clubbing, cyanosis with bilateral lower extremity pitting edema up to her lower back. No obvious deformities. NEUROLOGICAL: Awake, alert and oriented x4. No focal neurologic deficits. Moving both upper and lower extremities spontaneously. No significant change in PE from previous Hospital Course Mrs. Garcia is a 76-year-old female. She was admitted secondary to CHF exacerbation with a large left-sided pleural effusion. She has a history of pleurodesis of the right side and has had recurrent problems with right-sided pleural effusion in the past. It does not appear that the right side had any significant fluid collections of the pleurodesis is likely successful. She's had significant improvement in her respiratory status after diuresis and then after a thoracentesis of the left in which 1.2 L was removed. This was monitored for recurrence but does not appear to be recurring at a rapid rate. At this point she is medically stable for discharge to alf facility to work on her global weakness. Discharge alf facility today. Pt Condition on Discharge: Stable Discharge Disposition: Discharge to SNF Discharge Time: > 30 minutes Discharge Instructions DIET: Follow Instructions for: Low Sodium Diet Activities you can perform: Full Weight Bearing Follow up Referrals: Cardiology - 2 Weeks with Yenny Cardona MD PCP Follow-up - 1 Week with Remigio Lee DO New Medications: Lactobacillus Acidophilus (Acidophilus/l-Sporogenes) 35 Million Cell-25 Million Cell Tab 1 TAB PO TID for Probiotic, #30 TAB Magnesium Hydroxide (Qc Milk of Magnesia) 400 Mg/5 Ml Arely 30 ML PO Q12H PRN for Mild constipation, #300 ML Metoprolol Tartrate (Lopressor) 50 Mg Tab 50 MG PO Q12HR for Blood Pressure Management, #60 TAB Sulfamethoxazole-Trimethoprim (Sulfamethoxazole-Trimethoprim) 800-160 Mg Tab 1 TAB PO Q12HR for Infection, #10 TAB [Albuterol-Ipratropium Neb] () 1 AMPULE NEBU 1 AMPULE NEB Q2HR NEB PRN for SHORTNESS OF BREATH, #30 AMPULE [Ketoconazole 2% Cream] () 15 APPLIC/15 GM CR 1 APPLIC TOPICAL DAILY for Infection, #1 TUBE [Nystatin Liq] () 5 ML SUSP 5 ML SWISH-SWAL QID for Infection, #200 ML Continued Medications: Alprazolam (Alprazolam) 0.25 Mg Tab 0.25 MG PO Q6H PRN for ANXIETY, #10 TAB 0 Refills Aspirin (Aspirin Low Strength) 81 Mg Chew 81 MG PO DAILY for 30 Days, EA Atorvastatin (Atorvastatin) 80 Mg Tab 80 MG PO HS for Cholesterol Management, #30 TAB 0 Refills Cyanocobalamin Inj (Cyanocobalamin Inj) 1,000 Mcg/Ml Inj 1000 MCG IM EVERY 2 WEEKS, #1 VIAL 0 Refills Diltiazem (Diltiazem) 90 Mg Tab 90 MG PO QID for Angina, #120 TAB 0 Refills Before meals and at bedtime Duloxetine DR (Duloxetine DR) 60 Mg Capdr 60 MG PO DAILY for Depression Control for 30 Days, CAP Ergocalciferol (Ergocalciferol) 50,000 Unit Cap 02944 UNITS PO Q7D ON MONDAYS for Nutritional Supplement, #30 CAP 0 Refills Fenofibrate (Fenofibrate) 160 Mg Tab 160 MG PO HS, #30 TAB 0 Refills Furosemide (Lasix) 40 Mg Tab 40 MG PO DAILY, #30 TAB 0 Refills Hydralazine HCl (Hydralazine HCl) 25 Mg Tablet 25 MG PO Q8HR for Blood Pressure Management, #90 TAB 0 Refills Insulin Aspart Inj (Novolog Inj) 1,000 Unit/10 Ml Vial 2-10 UNITS SQ ACHS for Blood Sugar Management, #10 ML 0 Refills Sliding Scale Insulin Detemir Inj (Levemir Inj) 1,000 unit/ 10 ML Vial 15 UNITS SQ HS for DM for 30 Days, INJECTION Levothyroxine (Levothyroxine) 150 Mcg Tab 150 MCG PO DAILY@0600 for Thyroid, #30 TAB 0 Refills Losartan (Losartan) 50 Mg Tab 50 MG PO DAILY for Blood Pressure Management, #30 TAB 0 Refills Mirtazapine (Mirtazapine) 15 Mg Tab 7.5 MG PO HS for 30 Days, #30 TAB Multiple Vitamins W/ Minerals (Thera M Plus) 1 Tab 1 TAB PO DAILY for 30 Days, TAB Pantoprazole (Pantoprazole) 40 Mg Tab 40 MG PO DAILY for 30 Days, TAB Potassium Chloride ER (Potassium Chloride ER) 20 Meq Tab 20 MEQ PO DAILY for Electrolyte Replacement, #30 TAB 0 Refills Rivaroxaban (Xarelto) 10 Mg Tab 20 MG PO DAILY for AFIB for 30 Days, TAB 10 Refills Trazodone (Trazodone) 50 Mg Tab 50 MG PO HS for 30 Days, TAB Valacyclovir (Valtrex) 1 Gm Tab 1 GM PO HS for Mgmt Viral Infection, #30 TAB 0 Refills Discontinued Medications: Furosemide (Lasix) 20 Mg Tab 20 MG PO BID, #60 TAB 0 Refills Metoprolol Tartrate (Metoprolol Tartrate) 25 Mg Tab 25 MG PO Q12HR for htn, #60 TAB Varun Roy MD Apr 17, 2017 15:14
[2017-04-17] MEDS: valACYclovir HCL 500 MG TAB PO SCH (20:41)
[2017-04-17] MEDS: MIRTAZAPINE 15 MG TAB PO SCH (20:41)
[2017-04-17] MEDS: ATORVASTATIN 80 MG TAB PO SCH (20:41)
[2017-04-17] MEDS: FENOFIBRATE 145 MG TAB PO SCH (20:42)
[2017-04-17] MEDS: traZODone HCL 50 MG TAB PO SCH (20:42)
[2017-04-17] MEDS: INSULIN DETEMIR 100 UNITS/ML VIAL SQ SCH (20:44)
[2017-04-18] VITALS: BP 110/55; PULSE 61; RESP 17; TEMP 98.2; O2SAT 92
[2017-04-18 04:00] VITALS: BP 113/56; PULSE 79; RESP 17; TEMP 98; O2SAT 92
[2017-04-18] MEDS: LEVOTHYROXINE SODIUM 150 MCG TAB PO SCH (04:44)
[2017-04-18] MEDS: hydrALAZINE HCL 25 MG TAB PO SCH ×2 (04:44→13:49)
[2017-04-18] MEDS: INSULIN ASPART SUPPLEMENTAL SCALE SQ SCH ×3 (08:00→17:00)
[2017-04-18 08:09] VITALS: BP 134/59; PULSE 86; RESP 18; TEMP 98.4; O2SAT 94
[2017-04-18] MEDS: ASPIRIN 81 MG CHEW TAB PO SCH ×2 (09:00→10:09)
[2017-04-18] MEDS: DULoxetine HCl DR 60 MG CAP PO SCH (10:09)
[2017-04-18] MEDS: NYSTATIN SUSP 500,000 U/5 ML CUP SWISH-SWAL SCH ×3 (10:09→17:03)
[2017-04-18] MEDS: DILTIAZEM HCL 90 MG TAB PO SCH ×3 (10:09→17:03)
[2017-04-18] MEDS: LACTOBACILLUS ACIDOPHILUS TAB PO SCH ×3 (10:09→17:03)
[2017-04-18] MEDS: PANTOPRAZOLE SOD 40 MG DELAYED RELEASE TAB PO SCH (10:09)
[2017-04-18] MEDS: KETOCONAZOLE 2% CREAM 15 GM TOPICAL SCH (10:10)
[2017-04-18] MEDS: SULFAMETHOXAZOLE-TRIMETHOPRIM DS 800-160 MG TAB PO SCH (10:10)
[2017-04-18] MEDS: RIVAROXABAN 15 MG TAB PO SCH (10:10)
[2017-04-18] MEDS: METOPROLOL TARTRATE 50 MG TAB PO SCH (10:10)
[2017-04-18] MEDS: FUROSEMIDE 40 MG TAB PO SCH (10:10)
[2017-04-18] MEDS: SODIUM CHLORIDE 0.9% FLUSH 10 ML FLUSH IV FLUSH SCH (10:11)
[2017-04-18 11:16] VITALS: PULSE 75
--- NOTE | 2017-04-18 11:42 | PD.WCN.NOT ---
Wound Consult Description: Received consult for wound management of R lower extremity from Doctor Roy Communicated with: Call placed to Doctor Hernández for orders and Spoke with RN Jill ellington. Recommendation: Please cleanse wounds to Anterior martell with normal saline or wound cleanser and pat dry. Apply gentle adhesive foam dressing and change every 3 days or PRN if saturated or dislodged. Additional Information: Patient seen on [facility] for evaluation of RLE wound management. Removed transparent dressing in place to reveal partial thickness wound to R distal medial anterior martell and shallow full thickness wound to anterior martell.Wound anterior martell presents with 100% red hypergranulation tissue. Wound has minimal serous drainage without odor and a macerated periwound.Wound measures 0.7cm x 0.7cm x <0.1cm. Partial thickness wound to distal anterior martell measures ~1cm x ~1cmx <0.1cm is 100% pink. Wound has minimal serous drainage and unremarkable periwound.Cleansed both wounds with normal saline and pat dry. Applied skin prep to periwound and covered both wounds with gentle adhesive foam dressing. Steffi Garcia [facility] Apr 18, 2017 11:42
--- NOTE | 2017-04-18 11:44 | HHI.PR ---
Subjective Remarks The patient was [facility]. She said her breathing was slightly labored. She had no other acute complaints. Discussed with nursing. Objective Vitals Vital Signs Date Time Temp Pulse Resp B/P (MAP) Pulse Ox O2 Delivery O2 Flow Rate FiO2 04/18/17 11:16 75 04/18/17 10:30 Nasal Cannula 3.00 04/18/17 08:09 98.4 86 18 134/59 (84) 94 04/18/17 04:00 Nasal Cannula 3.00 04/18/17 04:00 98.0 79 17 113/56 (75) 92 04/18/17 00:00 Nasal Cannula 3.00 04/18/17 00:00 98.2 61 17 110/55 (73) 92 04/17/17 20:08 70 04/17/17 20:00 Nasal Cannula 3.00 04/17/17 20:00 98.2 76 17 113/62 (79) 94 04/17/17 16:00 97.6 49 16 90/54 (66) 94 04/17/17 12:00 98.2 59 16 102/59 (73) 94 I/O 04/17/17 04/17/17 04/17/17 04/18/17 04/18/17 04/18/17 07:00 15:00 23:00 07:00 15:00 23:00 Intake Total 240 ml 720 ml Balance 240 ml 720 ml Intake Oral 240 ml 720 ml # Voids 2 6 # Bowel Movements 1 Result Diagram: 04/17/17 0857 04/17/17 0857 Imaging Last Impressions Chest X-Ray 04/16/17 0000 Signed Impressions: Service Date/Time: Sunday, April 16, 2017 09:55 - CONCLUSION: Decrease in bilateral pulmonary parenchymal opacity and decrease in bilateral pleural effusions. Rubén Hough MD Thoracentesis Ultrasound 04/14/17 0000 Signed Impressions: Service Date/Time: March 10:38 - CONCLUSION: Uncomplicated ultrasound guided left thoracentesis. John Peace Jr., MD Chest Ultrasound 04/14/17 0000 Signed Impressions: Service Date/Time: March 10:34 - CONCLUSION: Tiny right effusion with insufficient volume for safe thoracentesis. John Peace Jr., MD Objective Remarks GENERAL: Elderly white female in no acute distress. SKIN: Improving cellulitis of the right anterior leg HEENT: PERRLA, EOMI. No scleral icterus or conjunctival pallor. No lid lag or facial droop. CARDIOVASCULAR: Irregularly irregular No obvious murmurs to auscultation. No chest tenderness to palpation. RESPIRATORY: No obvious rhonchi or wheezing. Decreased Breath sounds mildly decreased at bases bilaterally GASTROINTESTINAL: Abdomen soft, non-tender, nondistended. BS normal. MUSCULOSKELETAL: Extremities without clubbing, cyanosis with bilateral lower extremity pitting edema up to her lower back. No obvious deformities. NEUROLOGICAL: Awake, alert and oriented x4. No focal neurologic deficits. Moving both upper and lower extremities spontaneously. PSYCH: Mood and affect appropriate. Procedures None Medications and IVs Current Medications Medications (Trade) Dose Ordered Sig/Seema Route Start Time Stop Time Status Last Admin (D50w (Vial) Inj) 50 ml UNSCH PRN IV PUSH 04/09/17 00:15 (Glucagon Inj) 1 mg UNSCH PRN OTHER 04/09/17 00:15 (NS Flush) 2 ml UNSCH PRN IV FLUSH 04/09/17 00:15 04/13/17 15:16 (NS Flush) 2 ml BID IV FLUSH 04/09/17 09:00 04/18/17 10:11 (Zofran Inj) 4 mg Q6H PRN IVP 04/09/17 00:15 (Tylenol) 650 mg Q6H PRN PO 04/09/17 00:15 ([place] 5-325 Mg) 1 tab Q4H PRN PO 04/09/17 00:15 04/14/17 18:30 (Morphine Inj) 2 mg Q3H PRN IV PUSH 04/09/17 00:15 (Milk Of Magnesia Liq) 30 ml Q12H PRN PO 04/09/17 00:15 (Senokot) 17.2 mg Q12H PRN PO 04/09/17 00:15 (Dulcolax Supp) 10 mg DAILY PRN RECTAL 04/09/17 00:15 (Lactulose Liq) 30 ml DAILY PRN PO 04/09/17 00:15 (Aspirin Chew) 81 mg DAILY PO 04/09/17 09:00 04/17/17 09:55 (Lipitor) 80 mg HS PO 04/09/17 21:00 04/17/17 20:41 (Cardizem) 90 mg QID PO 04/09/17 09:00 04/18/17 10:09 (Cymbalta Dr) 60 mg DAILY PO 04/09/17 09:00 04/18/17 10:09 (Apresoline) 25 mg Q8HR PO 04/09/17 06:00 04/18/17 04:44 (Protonix) 40 mg DAILY PO 04/09/17 09:00 04/18/17 10:09 (NovoLOG SUPPLEMENTAL SCALE) 1 ACHS SLIDING SCALE SQ 04/09/17 08:00 04/17/17 21:06 (Lopressor) 50 mg Q12HR PO 04/09/17 21:00 04/18/17 10:10 (Synthroid) 150 mcg DAILY@0600 PO 04/10/17 06:00 04/18/17 04:44 (Remeron) 7.5 mg HS PO 04/09/17 21:00 04/17/17 20:41 (Desyrel) 50 mg HS PO 04/09/17 21:00 04/17/17 20:42 (Tricor) 145 mg HS PO 04/09/17 21:00 04/17/17 20:42 (Pill Splitter) 1 ea UNSCH PRN OTHER 04/09/17 07:45 (Valtrex) 1,000 mg HS PO 04/09/17 21:00 04/17/17 20:41 (Xanax) 0.25 mg Q6H PRN PO 04/09/17 16:30 04/17/17 16:28 (Duoneb Neb) 1 ampule Q2HR NEB PRN NEB 04/10/17 05:30 04/13/17 06:19 (Levemir Inj) 12 units HS SQ 04/10/17 21:00 04/16/17 21:00 (Xarelto) 15 mg DAILY PO 04/12/17 09:00 04/18/17 10:10 (Bactrim Ds 800-160 Mg) 1 tab Q12HR PO 04/13/17 21:00 04/18/17 10:10 (Lactinex) 1 tab TID PO 04/13/17 13:00 04/18/17 10:09 (Lasix) 40 mg DAILY PO 04/15/17 09:00 04/18/17 10:10 (Mycostatin Liq) 5 ml QID SWISH-SWAL 04/15/17 13:00 04/18/17 10:09 (Nizoral 2% Cream) 1 applic DAILY TOPICAL 04/17/17 09:00 04/18/17 10:10 A/P Problem List: (1) CHF (congestive heart failure) ICD Code: I50.9 - Heart failure, unspecified (2) A-fib ICD Code: I48.91 - Unspecified atrial fibrillation (3) Elevated troponin ICD Code: R74.8 - Abnormal levels of other serum enzymes (4) HTN (hypertension) ICD Code: I10 - Essential (primary) hypertension (5) DM (diabetes mellitus) ICD Code: E11.9 - Type 2 diabetes mellitus without complications Assessment and Plan 76-year-old female admitted secondary to congestive heart failure exacerbation with pulmonary edema and dyspnea with exertion. ESBL Klebsiella UTI sensitive to Bactrim. Bactrim continued. Oral candidiasis improved. Chest x-ray shows stability. Possible discharge tomorrow if stability continues. Vaginal candidiasis Diflucan Resume topical ketoconazole for possible tinea component Oral candidiasis Start nystatin swish and swallow Likely aggravated by antibiotic use Monitor for improvement Acute on chronic diastolic congestive heart failure Echo from 03/01/17 shows an ejection fraction of 65-70% Continue Lasix Lasix changed to 40 mg po daily Elevated troponin related to CHF Continue aspirin Continue statin Continue metoprolol Chronic kidney disease stage III Acute renal insufficiency Continue diuresis and monitor renal function Continue Diamox A. fib with RVR Continue Lopressor Continue Cardizem Continue Xarelto Diabetes mellitus type 2 Follow blood sugars Insulin sliding scale Diabetic diet Lower extremity cellulitis Continue vancomycin Follow clinically for improvement DVT prophylaxis Continue Xarelto Discharge Planning D/c to [facility] Nadir Hernández DO Apr 18, 2017 11:44
[2017-04-18 12:31] VITALS: BP 106/58; PULSE 72; RESP 18; TEMP 97.7; O2SAT 90
[2017-04-18 16:09] VITALS: BP 117/55; PULSE 59; RESP 20; TEMP 98.3; O2SAT 97
[2017-04-18] MEDS ORDERED: ALPR0.25 PO (16:48)
== END 2017-04-18 17:32 | DRG 291 ==
LOC: NEPE 18:43 → NEDA 04-09 00:25 → NEPGCP 04-09 03:36 → OBSVTOIN 04-11 11:31 → N04B 04-13 17:15
PROVIDERS: ADMIT Hospitalist; ATTEND Hospitalist
PROC: 0W9B3ZZ Drainage of Left Pleural Cavity, Percutaneous Approach (ICD-10-PCS; principal; 2017-04-14)
DX: I13.0 Hypertensive heart and chronic kidney disease with heart failure and stage 1 through stage 4 chronic kidney disease, or unspecified chronic kidney disease (principal); I50.33 Acute on chronic diastolic (congestive) heart failure; N17.9 Acute kidney failure, unspecified; E87.3 Alkalosis; J96.10 Chronic respiratory failure, unspecified whether with hypoxia or hypercapnia; B37.0 Candidal stomatitis; J91.8 Pleural effusion in other conditions classified elsewhere; N39.0 Urinary tract infection, site not specified; L03.115 Cellulitis of right lower limb; E11.22 Type 2 diabetes mellitus with diabetic chronic kidney disease; I48.2 Chronic atrial fibrillation; B37.3 Candidiasis of vulva and vagina; I25.2 Old myocardial infarction; J44.9 Chronic obstructive pulmonary disease, unspecified; G47.30 Sleep apnea, unspecified; K21.9 Gastro-esophageal reflux disease without esophagitis; H91.90 Unspecified hearing loss, unspecified ear; I25.10 Atherosclerotic heart disease of native coronary artery without angina pectoris; M19.90 Unspecified osteoarthritis, unspecified site; B96.1 Klebsiella pneumoniae [K. pneumoniae] as the cause of diseases classified elsewhere; F32.9 Major depressive disorder, single episode, unspecified; E78.00 Pure hypercholesterolemia, unspecified; Z16.12 Extended spectrum beta lactamase (ESBL) resistance; N18.3 Chronic kidney disease, stage 3 (moderate); F41.9 Anxiety disorder, unspecified; Z95.5 Presence of coronary angioplasty implant and graft; Z98.84 Bariatric surgery status; Z95.1 Presence of aortocoronary bypass graft; Z23 Encounter for immunization; Z79.4 Long term (current) use of insulin; Z79.01 Long term (current) use of anticoagulants; Z86.73 Personal history of transient ischemic attack (TIA), and cerebral infarction without residual deficits; Z99.81 Dependence on supplemental oxygen
CPT/HCPCS: 32555; 71010; 71020; 76604; 80048; 80053; 80202; 81001; 82272; 82948; 83735; 83880; 84484; 85025; 85027; 85610; 87077; 87086; 87186; 90732; 93005; 94640; 94664; 96366; 96376; C1729; G0378; G8987-GP; G8988-GP; J1815; J1940; J3370; J7050

== ENCOUNTER 2017-04-25 18:28 | Inpatient (IN) | payer OTHER ==
[2017-04-25] VITALS (7 sets, daily range): BP systolic 64–112; BP diastolic 40–66; PULSE 20–70; RESP 14–24; TEMP 97.6–98; O2SAT 84–97
[~2017-04-25] VITALS: Ht 157.5 cm; Wt 65.7 kg
[2017-04-25] MEDS: DOCUSATE SODIUM 50 MG/SENNA 8.6 MG TAB PO SCH
[~2017-04-25 18:28] MED LIST changes: +ALPR0.25 PO; +Albuterol-Ipratropium Neb NEB; -FURO1TAB62 PO; +Ketoconazole 2% Cream TOPICAL; +LACT PO; +MAGN30S PO; +METO-309 PO; -METO25TA3 PO; +Nystatin Liq SWISH-SWAL; +SULF1TAB23 PO
[2017-04-25] MEDS ORDERED: CALCIUM GLUCONATE 10% 1 GM/10 ML VIAL ONE (19:06)
[2017-04-25] MEDS ORDERED: DEXTROSE 50% IN WATER 50 ML SYRINGE ONE (19:09)
--- NOTE | 2017-04-25 19:13 | PD ---
HPI Chief Complaint: Abnormal Results Time Seen by Provider: 18:46 Travel History International Travel<30 days: No Contact w/Intl Traveler<30days: No Traveled to known affect area: No History of Present Illness HPI 89-year-old female history coronary artery disease, CHF, [facility] potassium level of 8.9. The patient states she's been feeling not well the last 3-4 days. Apparently there was blood work drawn and showed a potassium of 8.9. When paramedics arrived they found the patient to be with a heart rate in the low 20s. They started transcutaneous pacing at that time. She Should at 30 mA with a rate of 70. When patient arrived she appeared to be pale and ill appearing. She is complaining of no chest pain, chest pressure. There is no reported shortness of breath. PFSH Past Medical History Arthritis: Yes Asthma: No Atrial Fibrillation: Yes Autoimmune Disease: No Blood Disorders: No Anxiety: No Depression: Yes Heart Rhythm Problems: Yes Cancer: No Cardiac Catheterization: Yes Cardiovascular Problems: Yes High Cholesterol: Yes Chemotherapy: No Chest Pain: No Congestive Heart Failure: Yes COPD: Yes Cerebrovascular Accident: No Coronary Artery Disease: Yes Diabetes: Yes Patient Takes Glucophage: No Diminished Hearing: Yes Endocrine: Yes Gastrointestinal Disorders: Yes (REFLUX) GERD: Yes Genitourinary: No Headaches: No Hiatal Hernia: Yes Heparin Induced Thrombocytopen: No Hypertension: Yes Immune Disorder: No Implanted Vascular Access Dvce: No Kidney Stones: No Musculoskeletal: No Neurologic: No Psychiatric: Yes Reproductive: No Respiratory: Yes Migraines: No Pneumonia: Yes Radiation Therapy: No Renal Failure: Yes (from to much bumex) Seizures: No Sickle Cell Disease: No Sleep Apnea: No Thyroid Disease: No Ulcer: Yes Past Surgical History Abdominal Surgery: Yes (gastric bypass 2009) AICD: No Arteriovenous Shunt: No Body Medical Devices: CHEST CLOSURE Cardiac Surgery: Yes (cabg) Coronary Artery Bypass Graft: Yes (X01 March 2016) Coronary Stent: Yes (X`1) Ear Surgery: No Endocrine Surgery: No Eye Surgery: Yes (bilateral cataract sx) Genitourinary Surgery: Yes (gastric bypass) Gynecologic Surgery: No Insulin Pump: No Joint Replacement: No Neurologic Surgery: No Oral Surgery: Yes (teeth extraction, wisdom) Pacemaker: No Thoracic Surgery: Yes (lung scraped to readhere) Other Surgery: Yes (gastric bypass, CABG) Social History Alcohol Use: Yes (RARE) Tobacco Use: No Substance Use: No Allergies-Medications (Allergen,Severity, Reaction): Coded Allergies: erythromycin base (Unverified Allergy, Unknown, 01/11/17) penicillin G (Unverified Allergy, Unknown, 01/11/17) Reported Meds & Prescriptions Reported Meds & Active Scripts Active Alprazolam 0.25 Mg Tab 0.25 Mg PO Q6H PRN [Ketoconazole 2% Cream] 15 APPLIC/15 GM Cr 1 Applic TOPICAL DAILY Acidophilus/l-Sporogenes (Lactobacillus Acidophilus) 35 Million Cell-25 Million Cell Tab 1 Tab PO TID Qc Milk of Magnesia (Magnesium Hydroxide) 400 Mg/5 Ml Arely 30 Ml PO Q12H PRN Lopressor (Metoprolol Tartrate) 50 Mg Tab 50 Mg PO Q12HR [Albuterol-Ipratropium Neb] 1 AMPULE Nebu 1 Ampule NEB Q2HR NEB PRN [Nystatin Liq] 5 ML Susp 5 Ml SWISH-SWAL QID Sulfamethoxazole-Trimethoprim 800-160 Mg Tab 1 Tab PO Q12HR Mirtazapine 15 Mg Tab 7.5 Mg PO HS 30 Days Xarelto (Rivaroxaban) 10 Mg Tab 20 Mg PO DAILY 30 Days Levemir Inj (Insulin Detemir) 1,000 unit/ 10 ML Vial 15 Units SQ HS [address] (Duloxetine HCl) 60 Mg Capdr 60 Mg PO DAILY 30 Days Trazodone (Trazodone HCl) 50 Mg Tab 50 Mg PO HS 30 Days Pantoprazole (Pantoprazole Sodium) 40 Mg Tab 40 Mg PO DAILY 30 Days Thera M Plus (Multivitamins/Minerals Therapeutic) 1 Tab 1 Tab PO DAILY 30 Days Aspirin Low Strength (Aspirin) 81 Mg Chew 81 Mg PO DAILY 30 Days Reported Lasix (Furosemide) 40 Mg Tab 40 Mg PO DAILY Losartan (Losartan Potassium) 50 Mg Tab 50 Mg PO DAILY Potassium Chloride ER (Potassium Chloride) 20 Meq Tab 20 Meq PO DAILY Hydralazine HCl 25 Mg Tablet 25 Mg PO Q8HR Ergocalciferol 50,000 Unit Cap 50,000 Units PO Q7D ON MONDAYS Atorvastatin (Atorvastatin Calcium) 80 Mg Tab 80 Mg PO HS Diltiazem (Diltiazem HCl) 90 Mg Tab 90 Mg PO QID Before meals and at bedtime Novolog Inj (Insulin Aspart) 1,000 Unit/10 Ml Vial 2-10 Units SQ ACHS Sliding Scale Valtrex (Valacyclovir HCl) 1 Gm Tab 1 Gm PO HS Cyanocobalamin Inj (Cyanocobalamin) 1,000 Mcg/Ml Inj 1,000 Mcg IM EVERY 2 WEEKS Levothyroxine (Levothyroxine Sodium) 150 Mcg Tab 150 Mcg PO DAILY@0600 Fenofibrate 160 Mg Tab 160 Mg PO HS Review of Systems Except as stated in HPI: all other systems reviewed are Neg General / Constitutional: No: Fever, Chills HENT: Positive: Lightheadedness, No: Headaches, Neck Stiffness, Neck Pain Cardiovascular: Positive: Other, No: Chest Pain or Discomfort, Palpitations Respiratory: No: Cough, Shortness of Breath Gastrointestinal: No: Nausea, Vomiting, Abdominal Pain Genitourinary: No: Dysuria, Incontinence Musculoskeletal: Positive: Weakness, No: Pain Neurologic: Positive: Weakness, Dizziness, No: Headache, Change in Mentation Physical Exam Narrative GENERAL: Ill pale-appearing female in no acute respiratory distress SKIN: Focused skin assessment warm/dry. HEAD: Atraumatic. Normocephalic. EYES: No scleral icterus. No injection or drainage. ENT: No nasal bleeding or discharge. Mucous membranes pale and dry. NECK: Trachea midline. No JVD. Supple. CARDIOVASCULAR: External pacing at a rate of 70. RESPIRATORY: No accessory muscle use. Clear to auscultation. Breath sounds equal bilaterally. Decreased respiratory effort. GASTROINTESTINAL: Abdomen soft, non-tender, nondistended. MUSCULOSKELETAL: No obvious deformities. No clubbing. She was pale and delayed cap refill noted. NEUROLOGICAL: Awake and lethargic. No obvious cranial nerve deficits. Motor grossly within normal limits. Normal speech. Data Data Last Documented VS Vital Signs Date Time Temp Pulse Resp B/P (MAP) Pulse Ox O2 Delivery O2 Flow Rate FiO2 04/25/17 19:34 69 14 89/41 (57) 95 Nasal Cannula 4.00 04/25/17 18:28 98.0 Orders Orders I-Stat Profile (04/25/17 18:46) I-Stat Creatinine (04/25/17 18:46) Calcium Gluconate Inj (Calcium Gluconate (04/25/17 19:06) Complete Blood Count With Diff (04/25/17 19:05) Comprehensive Metabolic Panel (04/25/17 19:05) Ckmb (Isoenzyme) Profile (04/25/17 19:05) Troponin I (04/25/17 19:05) Prothrombin Time / Inr (Pt) (04/25/17 19:05) Act Partial Throm Time (Ptt) (04/25/17 19:05) Urinalysis - C+S If Indicated (04/25/17 19:05) Chest, Single Ap (04/25/17 19:05) Iv Access Insert/Monitor (04/25/17 19:05) Ecg Monitoring (04/25/17 19:05) Oximetry (04/25/17 19:05) Insulin Human Regular Inj (Novolin R Inj (04/25/17 19:15) Dextrose 50% In Dhruv (Vial) Inj (D50w (Vi (04/25/17 19:15) Sodium Bicarbonate 8.4% Inj (Sodium Bica (04/25/17 19:15) Calcium Gluconate Inj (Calcium Gluconate (04/25/17 19:15) Dextrose 50% In Dhruv (Syr) Inj (D50w (Syr (04/25/17 19:09) Sodium Bicarbonate 8.4% Inj (Sodium Bica (04/25/17 19:15) Dextrose 50% In Dhruv (Vial) Inj (D50w (Vi (04/25/17 19:15) Calcium Gluconate Inj (Calcium Gluconate (04/25/17 19:15) Sodium Polysty Sulfate Liq (Kayexalate L (04/25/17 19:30) Blood Flow Rate (04/25/17 19:31) Dialysate Flow Rate (04/25/17 19:31) Dialyzer (04/25/17 19:31) Concentrate (04/25/17 19:31) Acid Concentrate (04/25/17 19:31) Length Of Dialysis (04/25/17 19:31) Frequency Of Dialysis (04/25/17 19:31) Dialysis Obtain (04/25/17 19:31) Hepatitis Profile (04/25/17 19:31) Dialysis Schedule (04/25/17 19:31) Resp Oxygen Jackson C Titrat 1-4 L (04/25/17 ) Dialysis Weight (04/25/17 19:31) ^ Obtain As Needed (04/25/17 19:31) Sodium Chlor 0.9% 1000 Ml Inj (Ns 1000 M (04/25/17 19:31) Heparin Inj (Heparin Inj) (04/25/17 19:45) Sodium Chlor 0.9% 1000 Ml Inj (Ns 1000 M (04/25/17 19:31) Sodium Chlor 0.9% 1000 Ml Inj (Ns 1000 M (04/25/17 19:31) Mannitol Inj (Mannitol Inj) (04/25/17 19:45) Albumin 25% Inj (Albumin 25% Inj) (04/25/17 19:45) Sodium Chloride 0.9% Flush (Ns Flush) (04/25/17 19:45) Heparin Inj (Heparin Inj) (04/25/17 19:45) Gentamicin (Dialysis) Inj (Gentamicin (D (04/25/17 19:45) Ondansetron Inj (Zofran Inj) (04/25/17 19:45) Acetaminophen (Tylenol) (04/25/17 19:45) Diphenhydramine (Benadryl) (04/25/17 19:45) Nitroglycerin Sl (Nitrostat Sl) (04/25/17 19:45) Clonidine (Catapres) (04/25/17 19:45) Epoetin Shakeel Inj (Epogen Inj) (04/25/17 19:45) Gelatin 12 Mm/7 Mm Top (Gelfoam 12 Mm/7 (04/25/17 19:45) Admit Order (Ed Use Only) (04/25/17 19:56) Labs Laboratory Tests Test 04/25/17 18:40 Bedside Hemoglobin 10.5 G/DL Bedside Hematocrit 31.0 % Bedside Sodium 129 MMOL/L Bedside Potassium 7.9 MMOL/L Bedside Chloride 94 MMOL/L Bedside Blood Urea Nitrogen 83 MG/DL Bedside Creatinine 4.8 MG/DL Bedside Glucose 146 MG/DL MDM Medical Decision Making Medical Screen Exam Complete: Yes Emergency Medical Condition: Yes Differential Diagnosis Metabolic arrangement versus ACS versus symptomatic bradycardia versus hypotensive episode Narrative Course 76-year-old female [facility]. When paramedics arrived they found her heart rate being the 20s. They immediately started pacing her. Her blood pressure was also too low to measure. The patient had a reported potassium of 8.9 and this is the reason that the [facility] wanted [facility]. When patient arrived, she was pale and ill appearing. We continued transcutaneous pacing at a rate of 70. Her labs the i-STAT show a potassium of 7.9. She is also in acute renal failure. Her sodium was also 129. Dr. Travis, on-call relay mechanic was called down to help assess the patient. He is placed a Vas-Cath for emergent dialysis. The patient was given 10 units of Regular Insulin, 1 amp of D50, 2 A of sodium bicarbonate, and 2 g of calcium gluconate. She'll be admitted to the intensive care unit. She'll be dialyzed emergently. Critical Care Narrative Aggregate critical care time was 45 minutes. Time to perform other separately billable procedures was not included in the critical care time. My time did not include minutes spent treating any other patients simultaneously or on activities that did not directly contribute to the patient's treatment. The services I provided to this patient were to treat and/or prevent clinically significant deterioration that could result in: I provided critical care services requiring my management, as noted below: Chart data review, documentation time, medication orders and management, vital sign assessments/reviewing monitor data, ordering and reviewing lab tests, ordering and interpreting/reviewing x-rays and diagnostic studies, care of the patient and discussion of the patient with the admitting physicians. Diagnosis Primary Impression: Acute renal failure Additional Impressions: Hyperkalemia Hyponatremia Anemia severe bradycardia Hypotension Admitting Information Admitting Physician Requests: Admit Zacarias Goldberg MD Apr 25, 2017 19:13
[2017-04-25] MEDS ORDERED: CALCIUM GLUCONATE INJ 2 GM in SODIUM CHLORIDE 0.9% INJ 100 ML IV ONE (19:15)
[2017-04-25] MEDS ORDERED: INSULIN HUMAN REGULAR 1,000 UNITS/10 ML VIAL IV PUSH ONE (19:15)
[2017-04-25] MEDS ORDERED: CALCIUM GLUCONATE 10% 1 GM/10 ML VIAL IV PUSH ONE (19:15)
[2017-04-25] MEDS ORDERED: SODIUM BICARBONATE 8.4% INJ 50 MEQ/50 ML SYR IV PUSH ONE ×2 (19:15)
[2017-04-25] MEDS ORDERED: DEXTROSE 50% IN WATER 50 ML VIAL(D50) IV PUSH ONE ×2 (19:15)
[2017-04-25 19:16] LABS: I-STAT POTASSIUM 7.9 MMOL/L (3.5-4.9)
[2017-04-25] MEDS ORDERED: SODIUM POLYSTYRENE SULFONATE SUSP 15 GM/60 ML CUP PO ONE (19:30)
[2017-04-25] MEDS ORDERED: SODIUM CHLOR 0.9% 1000 ML INJ 1,000 ML OTHER PRN ×2 (19:31)
[2017-04-25] MEDS ORDERED: SODIUM CHLOR 0.9% 1000 ML INJ 1,000 ML IV PRN (19:31)
[2017-04-25] MEDS ORDERED: HEPARIN SODIUM - IV 10,000 UNITS/10 ML VIAL PRN (19:45)
[2017-04-25] MEDS ORDERED: EPOETIN ALFA 10,000 UNITS/ML VIAL IV PUSH PRN (19:45)
[2017-04-25] MEDS ORDERED: ALBUMIN 25% INJ 100 ML IV PRN (19:45)
[2017-04-25] MEDS ORDERED: HEPARIN SODIUM - IV 10,000 UNITS/10 ML VIAL IV FLUSH PRN (19:45)
[2017-04-25] MEDS ORDERED: GENTAMICIN SULFATE (DIALYSIS USE ONLY) 20 MG/2 ML VIAL OTHER PRN (19:45)
[2017-04-25] MEDS ORDERED: NITROGLYCERIN 0.4 MG SL 25 TABS/BTL SL PRN (19:45)
[2017-04-25] MEDS ORDERED: MANNITOL 12.5 GM/50 ML VIAL IV PRN (19:45)
[2017-04-25] MEDS ORDERED: diphenhydrAMINE HCL 25 MG CAP PO PRN (19:45)
[2017-04-25] MEDS ORDERED: ACETAMINOPHEN 325 MG TAB PO PRN ×2 (19:45→20:30)
[2017-04-25] MEDS ORDERED: SODIUM CHLORIDE 0.9% FLUSH 10 ML FLUSH IV FLUSH PRN ×2 (19:45→20:30)
[2017-04-25] MEDS ORDERED: GELATIN 12 MM/7 MM FOAM TOP PRN (19:45)
[2017-04-25] MEDS ORDERED: cloNIDine HCL 0.1 MG TAB PO PRN (19:45)
[2017-04-25] MEDS ORDERED: ONDANSETRON HCL 4 MG/2 ML VIAL IV PUSH PRN ×2 (19:45→20:30)
[2017-04-25 20:18] LABS: AUTOMATED NEUTROPHIL # 8.3 TH/MM3 (1.8-7.7); BASOPHIL # 0.1 TH/MM3 (0-0.2); BASOPHIL % 0.5 % (0.0-2.0); EOSINOPHIL % 0.4 % (0.0-4.0); HEMATOCRIT 29.4 % (35.0-46.0); HEMO FLAGS DIFF FINAL; LYMPHOCYTE # 0.7 TH/MM3 (1.0-4.8); MEAN CELL VOLUME 93.8 FL (80.0-100.0); MEAN CORPUSCULAR HEMOGLOBIN 29.4 PG (27.0-34.0); MEAN CORPUSCULAR HGB CONC 31.3 % (32.0-36.0); MONO % 6.9 % (0.0-8.0); NEUT % 85.2 % (16.0-70.0); PLATELET COUNT 530 TH/MM3 (150-450); RED BLOOD COUNT 3.14 MIL/MM3 (4.00-5.30); RED CELL DISTRIBUTION WIDTH 21.5 % (11.6-17.2); WHITE BLOOD COUNT 9.7 TH/MM3 (4.0-11.0)
[2017-04-25 20:29] LABS: APTT (PATIENT) 33.8 SEC (24.3-30.1); INTERNATIONAL NORMALIZED RATIO 1.3 RATIO; PROTHROMBIN TIME - PATIENT 14.3 SEC (9.8-11.6)
[2017-04-25] MEDS ORDERED: CHLORHEXIDINE GLUCONATE 2 % 1 PACK (2 CLOTHS) TOP PRN (20:30)
[2017-04-25] MEDS ORDERED: LACTULOSE SYRUP 20 GM/30 ML CUP PO PRN (20:30)
[2017-04-25] MEDS ORDERED: BISACODYL 10 MG SUPP RECTAL PRN (20:30)
[2017-04-25] MEDS ORDERED: RESP: ALBUTEROL 2.5 MG/IPRATROPIUM 0.5 MG NEB (PRN) INH (20:30)
[2017-04-25] MEDS ORDERED: SENNOSIDES 8.6 MG TAB PO PRN (20:30)
[2017-04-25] MEDS ORDERED: MAGNESIUM HYDROXIDE SUSP 30 ML CUP PO PRN (20:30)
[2017-04-25] MEDS ORDERED: MISCELLANEOUS NURSING INFORMATION XX SCH (20:30)
[2017-04-25] MEDS ORDERED: ZOLPIDEM TARTRATE 5 MG TAB PO PRN (20:30)
--- NOTE | 2017-04-25 20:33 | PD.CONS ---
HPI Service Nephrology Consult Requested By Dr. Goldberg Reason for Consult Acute renal failure with severe hyperkalemia Primary Care Physician Remigio Lee, DO History of Present Illness Patient is a 76-year-old female with history of coronary artery disease status post CABG who was brought to as she was not feeling well being very tired lethargic and found to have Bradycardia Heart Rate in 20s to 30s and Found to Have Hyperkalemia Potassium Was 8.9, This Was Treated in the Emergency with Calcium, D50, Insulin, Sodium bicarbonate and Kayexalate, K 7.9, patient is alert she states that she is feeling very tired and lethargic he had an external pacemaker on, she has been admitted a few times in the past with acute renal failure, GI bleed, congestive heart failure, I have seen her in the past and one of the admissions. Review of Systems Constitutional: COMPLAINS OF: Fatigue Respiratory: COMPLAINS OF: Shortness of breath Cardiovascular: COMPLAINS OF: Syncope, Lower Extremity Edema, Orthopnea Gastrointestinal: COMPLAINS OF: Nausea Musculoskeletal: COMPLAINS OF: Joint pain Neurologic: COMPLAINS OF: Abnormal gait Psychiatric: COMPLAINS OF: Anxiety Past Family Social History Allergies: Coded Allergies: erythromycin base (Unverified Allergy, Unknown, 01/11/17) penicillin G (Unverified Allergy, Unknown, 01/11/17) Past Medical History Hypertension Depression Hyperlipidemia Diabetes mellitus COPD on home oxygen as needed GERD Recurrent right pleural effusion Coronary artery disease Diastolic heart failure with mitral regurgitation Hyperthyroidism Atrial fibrillation, off anticoagulation per pulmonology Past Surgical History Cataract surgery bilaterally Coronary stent placement in 2007 Gastric bypass 2009 CABG with maze procedure in 2016 Back surgery Reported Medications Reported Meds & Active Scripts Active Alprazolam 0.25 Mg Tab 0.25 Mg PO Q6H PRN [Ketoconazole 2% Cream] 15 APPLIC/15 GM Cr 1 Applic TOPICAL DAILY Acidophilus/l-Sporogenes (Lactobacillus Acidophilus) 35 Million Cell-25 Million Cell Tab 1 Tab PO TID Qc Milk of Magnesia (Magnesium Hydroxide) 400 Mg/5 Ml Arely 30 Ml PO Q12H PRN Lopressor (Metoprolol Tartrate) 50 Mg Tab 50 Mg PO Q12HR [Albuterol-Ipratropium Neb] 1 AMPULE Nebu 1 Ampule NEB Q2HR NEB PRN [Nystatin Liq] 5 ML Susp 5 Ml SWISH-SWAL QID Sulfamethoxazole-Trimethoprim 800-160 Mg Tab 1 Tab PO Q12HR Mirtazapine 15 Mg Tab 7.5 Mg PO HS 30 Days Xarelto (Rivaroxaban) 10 Mg Tab 20 Mg PO DAILY 30 Days Levemir Inj (Insulin Detemir) 1,000 unit/ 10 ML Vial 15 Units SQ HS [address] (Duloxetine HCl) 60 Mg Capdr 60 Mg PO DAILY 30 Days Trazodone (Trazodone HCl) 50 Mg Tab 50 Mg PO HS 30 Days Pantoprazole (Pantoprazole Sodium) 40 Mg Tab 40 Mg PO DAILY 30 Days Thera M Plus (Multivitamins/Minerals Therapeutic) 1 Tab 1 Tab PO DAILY 30 Days Aspirin Low Strength (Aspirin) 81 Mg Chew 81 Mg PO DAILY 30 Days Reported Lasix (Furosemide) 40 Mg Tab 40 Mg PO DAILY Losartan (Losartan Potassium) 50 Mg Tab 50 Mg PO DAILY Potassium Chloride ER (Potassium Chloride) 20 Meq Tab 20 Meq PO DAILY Hydralazine HCl 25 Mg Tablet 25 Mg PO Q8HR Ergocalciferol 50,000 Unit Cap 50,000 Units PO Q7D ON MONDAYS Atorvastatin (Atorvastatin Calcium) 80 Mg Tab 80 Mg PO HS Diltiazem (Diltiazem HCl) 90 Mg Tab 90 Mg PO QID Before meals and at bedtime Novolog Inj (Insulin Aspart) 1,000 Unit/10 Ml Vial 2-10 Units SQ ACHS Sliding Scale Valtrex (Valacyclovir HCl) 1 Gm Tab 1 Gm PO HS Cyanocobalamin Inj (Cyanocobalamin) 1,000 Mcg/Ml Inj 1,000 Mcg IM EVERY 2 WEEKS Levothyroxine (Levothyroxine Sodium) 150 Mcg Tab 150 Mcg PO DAILY@0600 Fenofibrate 160 Mg Tab 160 Mg PO HS Active Ordered Medications Current Medications Medications (Trade) Dose Ordered Sig/Seema Route Start Time Stop Time Status Last Admin Sodium Chloride 1,000 ml @ 0 mls/hr Q0M PRN OTHER 04/25/17 19:31 (Heparin Inj) 8,000 units UNSCH PRN IV FLUSH 04/25/17 19:45 Sodium Chloride 1,000 ml @ 200 mls/hr Q5H PRN IV 04/25/17 19:31 Sodium Chloride 1,000 ml @ 0 mls/hr Q0M PRN OTHER 04/25/17 19:31 (Mannitol Inj) 12.5 gm UNSCH PRN IV 04/25/17 19:45 Albumin Human 100 ml @ 60 mls/hr UNSCH PRN IV 04/25/17 19:45 (NS Flush) 5 ml UNSCH PRN IV FLUSH 04/25/17 19:45 (Heparin Inj) UNSCH PRN .XX 04/25/17 19:45 (Gentamicin (Dialysis) Inj) 20 mg UNSCH PRN OTHER 04/25/17 19:45 (Zofran Inj) 4 mg UNSCH PRN IV PUSH 04/25/17 19:45 (Tylenol) 650 mg UNSCH PRN PO 04/25/17 19:45 (Benadryl) 25 mg UNSCH PRN PO 04/25/17 19:45 (Nitrostat Sl) 0.4 mg UNSCH PRN SL 04/25/17 19:45 (Catapres) 0.1 mg UNSCH PRN PO 04/25/17 19:45 (Epogen Inj) 10,000 units UNSCH PRN IV PUSH 04/25/17 19:45 (Gelfoam 12 Mm/7 Mm Top) 1 foam UNSCH PRN TOP 04/25/17 19:45 Family History Noncontributory Social History History of smoking in the past denies alcohol Physical Exam Vital Signs Vital Signs Date Time Temp Pulse Resp B/P (MAP) Pulse Ox O2 Delivery O2 Flow Rate FiO2 04/25/17 19:34 69 14 89/41 (57) 95 Nasal Cannula 4.00 04/25/17 19:00 70 24 64/40 (48) 96 Nasal Cannula 3.00 04/25/17 18:28 98.0 20 24 96 04/25/17 18:28 70 24 97 Nasal Cannula 3.00 Physical Exam GENERAL: Well-nourished, well-developed patient. SKIN: Warm and dry. HEAD: Normocephalic. EYES: No scleral icterus. No injection or drainage. NECK: Supple, trachea midline. No JVD or lymphadenopathy. CARDIOVASCULAR: Irregular and paced. RESPIRATORY: Breath sounds diminished at bases. GASTROINTESTINAL: Abdomen soft, non-tender, nondistended. EXTREMITIES: No cyanosis, 2+ edema. NEUROLOGICAL: Awake, alert, and oriented x 3. Non-focal. Laboratory Laboratory Tests Test 04/25/17 18:40 04/25/17 19:50 Bedside Hemoglobin 10.5 Bedside Hematocrit 31.0 Bedside Sodium 129 Bedside Potassium 7.9 Bedside Chloride 94 Bedside Blood Urea Nitrogen 83 Bedside Creatinine 4.8 Bedside Glucose 146 White Blood Count 9.7 Red Blood Count 3.14 Hemoglobin 9.2 Hematocrit 29.4 Mean Corpuscular Volume 93.8 Mean Corpuscular Hemoglobin 29.4 Mean Corpuscular Hemoglobin Concent 31.3 Red Cell Distribution Width 21.5 Platelet Count 530 Mean Platelet Volume 8.8 Neutrophils (%) (Auto) 85.2 Lymphocytes (%) (Auto) 7.0 Monocytes (%) (Auto) 6.9 Eosinophils (%) (Auto) 0.4 Basophils (%) (Auto) 0.5 Neutrophils # (Auto) 8.3 Lymphocytes # (Auto) 0.7 Monocytes # (Auto) 0.7 Eosinophils # (Auto) 0.0 Basophils # (Auto) 0.1 CBC Comment DIFF FINAL Differential Comment Result Diagram: 04/25/171949 Assessment and Plan Problem List: (1) Hyperkalemia ICD Codes: E87.5 - Hyperkalemia Status: Acute Plan: . Life-threatening hyperkalemia this was treated and she junctional rhythm we decided to proceed with hemodialysis Vas-Cath is in place dialysis team is ready she will be transferred to the unit (2) Acute renal failure ICD Codes: N17.9 - Acute kidney failure, unspecified Status: Acute Plan: Patient has history of cardiorenal syndrome and currently ATN is suspected because of severe hypotension 5 pm seen at dialysis, patient refused intubation she is a DNR dialysis proceedings noted on 1 K Bath follow K (3) Hypotension ICD Codes: I95.9 - Hypotension, unspecified Status: Acute Plan: Due to cardiogenic shock (4) Acute on chronic diastolic CHF (congestive heart failure) ICD Codes: I50.33 - Acute on chronic diastolic (congestive) heart failure Status: Resolved Plan: Patient has a history of mitral regurgitation (5) DM (diabetes mellitus) ICD Codes: E11.9 - Type 2 diabetes mellitus without complications Status: Chronic Plan: Follow blood glucose Problem Qualifiers (1) Acute renal failure: Qualified Codes: N17.0 - Acute kidney failure with tubular necrosis Tammie Suggs MD Apr 25, 2017 20:33
[2017-04-25 20:38] LABS: ANION GAP 11 MEQ/L (5-15); AST (GOT) 44 U/L (15-37); BICARBONATE 28.3 MEQ/L (21.0-32.0); BLOOD UREA NITROGEN 84 MG/DL (7-18); CHLORIDE 95 MEQ/L (98-107); GLOMERULAR FILTRATION RATE 8 ML/MIN (>89); POTASSIUM 6.5 MEQ/L (3.5-5.1); SODIUM (NA) 134 MEQ/L (136-145)
[2017-04-25 20:43] LABS: ALKALINE PHOSPHATASE 100 U/L (45-117); ALT (GPT) 16 U/L (10-53); TOTAL BILIRUBIN ADULT 0.6 MG/DL (0.2-1.0)
--- NOTE | 2017-04-25 20:43 | HHI.HP ---
[facility] Service Critical Care Medicine Primary Care Physician Remigio Lee, DO Admission Diagnosis acute renal failure, hyperkalemia, hyponatremia, bradycardia, hypote Diagnosis: Travel History International Travel<30 Days: No Contact w/Intl Traveler <30 Da: No Traveled to Known Affected Are: No History of Present Illness 76-year-old female with history coronary artery disease, CHF/diastolic dysfunction, cardiomegaly, chronic renal insufficiency who presents from the residential with a potassium level of 8.9 and significant bradycardia The patient states she's been feeling not well the last 3-4 days. Apparently there was blood work drawn and showed a potassium of 8.9. When paramedics arrived they found the patient to be with a heart rate in the low 20s. They started transcutaneous pacing at that time. She is complaining of no chest pain, chest pressure. There is no reported shortness of breath. Review of Systems Constitutional: COMPLAINS OF: Fatigue, Dizziness, Change in appetite, DENIES: Diaphoretic episodes, Fever, Weight gain, Weight loss, Chills, Night Sweats Endocrine: DENIES: Abnorml menstrual pattern, Heat/cold intolerance, Polydipsia , Polyuria, Polyphagia Eyes: DENIES: Blurred vision, Diplopia, Eye inflammation, Eye pain, Vision loss , Photosensitivity, Double Vision Ears, nose, mouth, throat: DENIES: Tinnitus, Hearing loss, Vertigo, Nasal discharge, Oral lesions, Throat pain, Hoarseness, Ear Pain, Running Nose, Epistaxis, Sinus Pain, Toothache, Odynophagia Respiratory: DENIES: Apneas, Cough, Snoring, Wheezing, Hemoptysis, Sputum production, Shortness of breath Cardiovascular: DENIES: Chest pain, Palpitations, Syncope, Dyspnea on Exertion , PND, Lower Extremity Edema, Orthopnea, Claudication Gastrointestinal: COMPLAINS OF: Anorexia, DENIES: Abdominal pain, Black stools , Bloody stools, Constipation, Diarrhea, Nausea, Vomiting, Difficulty Swallowing Genitourinary: DENIES: Abnormal vaginal bleeding, Dysmenorrhea, Dyspareunia, Sexual dysfunction, Urinary frequency, Urinary incontinence, Urgency, Hematuria , Dysuria, Nocturia, Vaginal discharge Musculoskeletal: COMPLAINS OF: Joint pain, Joint Swelling, DENIES: Muscle aches , Stiffness, Back pain, Neck pain Integumentary: DENIES: Abnormal pigmentation, Pruritus, Rash, Nail changes, Breast masses, Breast skin changes, Nipple discharge Hematologic/lymphatic: DENIES: Bruising, Lymphadenopathy Immunologic/allergic: DENIES: Eczema, Urticaria Neurologic: COMPLAINS OF: Abnormal gait, Poor Balance, DENIES: Headache, Localized weakness, Paresthesias, Seizures, Speech Problems, Tremor Psychiatric: COMPLAINS OF: Anxiety, Depression, DENIES: Confusion, Mood changes , Hallucinations, Agitation, Suicidal Ideation, Homicidal Ideation, Delusions Past Family Social History Allergies: Coded Allergies: erythromycin base (Unverified Allergy, Unknown, 01/11/17) penicillin G (Unverified Allergy, Unknown, 01/11/17) Past Medical History Hypertension Congestive heart failure - diastolic dysfunction (Echo 03/06/17 w/ EF 65-70%) Atrial fibrillation on Xarelto Anxiety Depression COPD History of CVA Past Surgical History Gastric Bypass, CABG, Bilateral Cataract Surgery, Tooth Extraction Reported Medications Reported Meds & Active Scripts Active Alprazolam 0.25 Mg Tab 0.25 Mg PO Q6H PRN [Ketoconazole 2% Cream] 15 APPLIC/15 GM Cr 1 Applic TOPICAL DAILY Acidophilus/l-Sporogenes (Lactobacillus Acidophilus) 35 Million Cell-25 Million Cell Tab 1 Tab PO TID Qc Milk of Magnesia (Magnesium Hydroxide) 400 Mg/5 Ml Arely 30 Ml PO Q12H PRN Lopressor (Metoprolol Tartrate) 50 Mg Tab 50 Mg PO Q12HR [Albuterol-Ipratropium Neb] 1 AMPULE Nebu 1 Ampule NEB Q2HR NEB PRN [Nystatin Liq] 5 ML Susp 5 Ml SWISH-SWAL QID Sulfamethoxazole-Trimethoprim 800-160 Mg Tab 1 Tab PO Q12HR Mirtazapine 15 Mg Tab 7.5 Mg PO HS 30 Days Xarelto (Rivaroxaban) 10 Mg Tab 20 Mg PO DAILY 30 Days Levemir Inj (Insulin Detemir) 1,000 unit/ 10 ML Vial 15 Units SQ HS [address] (Duloxetine HCl) 60 Mg Capdr 60 Mg PO DAILY 30 Days Trazodone (Trazodone HCl) 50 Mg Tab 50 Mg PO HS 30 Days Pantoprazole (Pantoprazole Sodium) 40 Mg Tab 40 Mg PO DAILY 30 Days Thera M Plus (Multivitamins/Minerals Therapeutic) 1 Tab 1 Tab PO DAILY 30 Days Aspirin Low Strength (Aspirin) 81 Mg Chew 81 Mg PO DAILY 30 Days Reported Lasix (Furosemide) 40 Mg Tab 40 Mg PO DAILY Losartan (Losartan Potassium) 50 Mg Tab 50 Mg PO DAILY Potassium Chloride ER (Potassium Chloride) 20 Meq Tab 20 Meq PO DAILY Hydralazine HCl 25 Mg Tablet 25 Mg PO Q8HR Ergocalciferol 50,000 Unit Cap 50,000 Units PO Q7D ON MONDAYS Atorvastatin (Atorvastatin Calcium) 80 Mg Tab 80 Mg PO HS Diltiazem (Diltiazem HCl) 90 Mg Tab 90 Mg PO QID Before meals and at bedtime Novolog Inj (Insulin Aspart) 1,000 Unit/10 Ml Vial 2-10 Units SQ ACHS Sliding Scale Valtrex (Valacyclovir HCl) 1 Gm Tab 1 Gm PO HS Cyanocobalamin Inj (Cyanocobalamin) 1,000 Mcg/Ml Inj 1,000 Mcg IM EVERY 2 WEEKS Levothyroxine (Levothyroxine Sodium) 150 Mcg Tab 150 Mcg PO DAILY@0600 Fenofibrate 160 Mg Tab 160 Mg PO HS Active Ordered Medications Current Medications Medications (Trade) Dose Ordered Sig/Seema Route PRN Reason Start Time Stop Time Status Last Admin Dose Admin Sodium Chloride 1,000 ml @ 0 mls/hr Q0M PRN OTHER For Prime & Rinse Back 04/25/17 19:31 Heparin Sodium (Porcine) (Heparin Inj) 8,000 units UNSCH PRN IV FLUSH WITH DIALYSIS 04/25/17 19:45 Sodium Chloride 1,000 ml @ 200 mls/hr Q5H PRN IV WITH DIALYSIS 04/25/17 19:31 Sodium Chloride 1,000 ml @ 0 mls/hr Q0M PRN OTHER WITH DIALYSIS 04/25/17 19:31 Mannitol (Mannitol Inj) 12.5 gm UNSCH PRN IV WITH DIALYSIS 04/25/17 19:45 Albumin Human 100 ml @ 60 mls/hr UNSCH PRN IV WITH DIALYSIS 04/25/17 19:45 Sodium Chloride (NS Flush) 5 ml UNSCH PRN IV FLUSH WITH DIALYSIS 04/25/17 19:45 Heparin Sodium (Porcine) (Heparin Inj) UNSCH PRN .XX WITH DIALYSIS 04/25/17 19:45 Gentamicin Sulfate (Gentamicin (Dialysis) Inj) 20 mg UNSCH PRN OTHER WITH DIALYSIS 04/25/17 19:45 Ondansetron HCl (Zofran Inj) 4 mg UNSCH PRN IV PUSH WITH DIALYSIS 04/25/17 19:45 Acetaminophen (Tylenol) 650 mg UNSCH PRN PO for headach, pain, temp > 101F 04/25/17 19:45 Diphenhydramine HCl (Benadryl) 25 mg UNSCH PRN PO for hives/itching/anaphylaxis 04/25/17 19:45 Nitroglycerin (Nitrostat Sl) 0.4 mg UNSCH PRN SL CHEST PAIN 04/25/17 19:45 Clonidine (Catapres) 0.1 mg UNSCH PRN PO for BP > 180/100 X 2 readings 04/25/17 19:45 Epoetin Shakeel (Epogen Inj) 10,000 units UNSCH PRN IV PUSH WITH DIALYSIS 04/25/17 19:45 Gelatin (Gelfoam 12 Mm/7 Mm Top) 1 foam UNSCH PRN TOP SEE LABEL COMMENTS 04/25/17 19:45 Family History No h/o DM or CAD Social History Occasional alcohol. Negative for tobacco or drugs. Physical Exam Vital Signs Vital Signs Date Time Temp Pulse Resp B/P (MAP) Pulse Ox O2 Delivery O2 Flow Rate FiO2 04/25/17 19:34 69 14 89/41 (57) 95 Nasal Cannula 4.00 04/25/17 19:00 70 24 64/40 (48) 96 Nasal Cannula 3.00 04/25/17 18:28 98.0 20 24 96 04/25/17 18:28 70 24 97 Nasal Cannula 3.00 Physical Exam GENERAL: Elderly-appearing female in obvious distress critically ill. SKIN: Warm and dry. HEAD: Normocephalic. EYES: No scleral icterus. No injection or drainage. NECK: Supple, trachea midline. No JVD or lymphadenopathy. CARDIOVASCULAR: Regular rate and rhythm without murmurs, gallops, or rubs. RESPIRATORY: Breath sounds equal bilaterally. No accessory muscle use. GASTROINTESTINAL: Abdomen soft, non-tender, nondistended. MUSCULOSKELETAL: No cyanosis, or edema. BACK: Nontender without obvious deformity. NEURO EXAM: Mental Status: The patient is alert and oriented to person, place, and time with normal speech. Cranial Nerves: Pupils are round, reactive to light. Reflexes: Biceps, patellar, and Achilles are 2/4 bilaterally. No clonus. Laboratory Laboratory Tests Test 04/25/17 18:40 04/25/17 19:50 Bedside Hemoglobin 10.5 Bedside Hematocrit 31.0 Bedside Sodium 129 Bedside Potassium 7.9 Bedside Chloride 94 Bedside Blood Urea Nitrogen 83 Bedside Creatinine 4.8 Bedside Glucose 146 White Blood Count 9.7 Red Blood Count 3.14 Hemoglobin 9.2 Hematocrit 29.4 Mean Corpuscular Volume 93.8 Mean Corpuscular Hemoglobin 29.4 Mean Corpuscular Hemoglobin Concent 31.3 Red Cell Distribution Width 21.5 Platelet Count 530 Mean Platelet Volume 8.8 Neutrophils (%) (Auto) 85.2 Lymphocytes (%) (Auto) 7.0 Monocytes (%) (Auto) 6.9 Eosinophils (%) (Auto) 0.4 Basophils (%) (Auto) 0.5 Neutrophils # (Auto) 8.3 Lymphocytes # (Auto) 0.7 Monocytes # (Auto) 0.7 Eosinophils # (Auto) 0.0 Basophils # (Auto) 0.1 CBC Comment DIFF FINAL Differential Comment Prothrombin Time 14.3 Prothromb Time International Ratio 1.3 Activated Partial Thromboplast Time 33.8 Result Diagram: 04/25/171949 Caprini VTE Risk Assessment Caprini VTE Risk Assessment: Mod/High Risk (score >= 2) Caprini Risk Assessment Model Point Value = 1 Point Value = 2 Point Value = 3 Point Value = 5 Age 41-60 Minor surgery BMI > 25 kg/m2 Swollen legs Varicose veins or History of unexplained or recurrent spontaneous Oral contraceptives or hormone replacement Sepsis (< 1 month) Serious lung disease, including pneumonia (< 1 month) Abnormal pulmonary function Acute myocardial infarction Congestive heart failure (< 1 month) History of inflammatory bowel disease Medical patient at bed rest Age 61-74 Arthroscopic surgery Major open surgery (> 45 min) Laparoscopic surgery (> 45 min) Malignancy Confined to bed (> 72 hours) Immobilizing plaster cast Central venous access Age >= 75 History of VTE Family history of VTE Factor V Leiden Prothrombin [id number] Lupus anticoagulant Anticardiolipin antibodies Elevated serum homocysteine Heparin-induced thrombocytopenia Other congenital or acquired thrombophilia Stroke (< 1 month) Elective arthroplasty Hip, pelvis, or leg fracture Acute spinal cord injury (< 1 month) Prophylaxis Regimen Total Risk Factor Score Risk Level Prophylaxis Regimen 0-1 Low Early ambulation 2 Moderate Order ONE of the following: *Sequential Compression Device (SCD) *Heparin 5000 units SQ BID 3-4 Higher Order ONE of the following medications: *Heparin 5000 units SQ TID *Enoxaparin/Lovenox 40 mg SQ daily (WT < 150 kg, CrCl > 30 mL/min) *Enoxaparin/Lovenox 30 mg SQ daily (WT < 150 kg, CrCl > 10-29 mL/min) *Enoxaparin/Lovenox 30 mg SQ BID (WT < 150 kg, CrCl > 30 mL/min) AND/OR *Sequential Compression Device (SCD) 5 or more Highest Order ONE of the following medications: *Heparin 5000 units SQ TID (Preferred with Epidurals) *Enoxaparin/Lovenox 40 mg SQ daily (WT < 150 kg, CrCl > 30 mL/min) *Enoxaparin/Lovenox 30 mg SQ daily (WT < 150 kg, CrCl > 10-29 mL/min) *Enoxaparin/Lovenox 30 mg SQ BID (WT < 150 kg, CrCl > 30 mL/min) AND *Sequential Compression Device (SCD) Assessment and Plan Assessment and Plan Acute kidney failure - Severe hyperkalemia - Over diuresed dehydrated - Emergent hemodialysis - Insulin glucose sodium bicarbonate and calcium gluconate 1 - IV fluids resuscitation - Further per nephrology Bradycardia - Due to hyperkalemia - Temporary transcutaneous pacemaker - Telemetry - Dialysis Hypotension - Improving with dialysis - IV fluids CHF/diastolic dysfunction - Blood pressure control Atrial fibrillation - Continue Xarelto - Hold metoprolol and diltiazem due to bradycardia Anxiety/Depression - Cymbalta - Trazodone DVT GI prophylaxis - Teds SCDs - Xarelto - Pepcid Critical Care: The total critical care time was 35 minutes. Time to perform other separately billable procedures was not included in the critical care time. COPD - DuoNeb scheduled and when necessary History of CVA - Aspirin - Atorvastatin - Xavier Sullivan MD Apr 25, 2017 8:43 pm
[2017-04-25 20:51] LABS: CREATINE KINASE 54 U/L (26-192)
--- NOTE | 2017-04-25 21:15 | RADRPT ---
EXAM DATE/TIME: 04/25/2017 19:59 [place] COMPARISON: CHEST PA & LAT, April 16, 2017, 9:55. CHEST SINGLE AP, April 11, 2017, 14:39. INDICATIONS : Central line placement. Shortness of breath. MEDICAL HISTORY : Cardiovascular disease. Congestive heart failure. Hypertension. SURGICAL HISTORY : CABG. ENCOUNTER: Initial ACUITY: 3 days PAIN SCORE: 0/10 LOCATION: Bilateral chest FINDINGS: A single view of the chest demonstrates persistent interstitial prominence characteristic of vascular congestion or volume overload. Probable associated effusions. Interval placement of a left IJ dialys is type catheter with the tip projecting over the central venous system. No pneumothorax. Heart size is markedly enlarged but stable. Osseous structures are intact. Intact median sternotomy wires charac teristic of prior CABG. CONCLUSION: 1. Interval placement of a left IJ dialysis type catheter with the tip projecting over the central ve nous system. No pneumothorax. 2. Cardiomegaly with interstitial prominence and probable bilateral pleural effusions characteristic of CHF/volume overload. Govind Mccormick MD on April 25, 2017 at 21:11 Board Certified Radiologist. This report was verified electronically.
[2017-04-26] VITALS (48 sets, daily range): BP systolic 82–133; BP diastolic 47–70; PULSE 69–118; RESP 8–36; TEMP 97.4–98.7; O2SAT 68–100
[2017-04-26] MEDS: SODIUM CHLOR 0.9% 1000 ML INJ 1,000 ML IV SCH ×3 (00:41→12:44)
[2017-04-26] MEDS: traZODone HCL 50 MG TAB PO SCH ×2 (00:42→22:09)
[2017-04-26] MEDS: SODIUM CHLORIDE 0.9% FLUSH 10 ML FLUSH IV FLUSH SCH ×3 (00:42→22:10)
[2017-04-26] MEDS: valACYclovir HCL 500 MG TAB PO SCH ×2 (00:42→22:09)
[2017-04-26] MEDS: FAMOTIDINE 20 MG/2 ML VIAL IV PUSH SCH ×2 (00:42→09:54)
[2017-04-26] MEDS: FENOFIBRATE 145 MG TAB PO SCH ×2 (00:43→22:09)
[2017-04-26] MEDS: MIRTAZAPINE 15 MG TAB PO SCH ×2 (00:43→22:09)
[2017-04-26] MEDS: CHLORHEXIDINE GLUCONATE 2 % 1 PACK (2 CLOTHS) TOP SCH (03:50)
--- NOTE | 2017-04-26 04:11 | PD.PROCEDR ---
Procedure Note Procedure Hemodialysis catheter placement A time-out was completed verifying correct patient, procedure, site, positioning , and special equipment if applicable. The patient was placed in a dependent position appropriate for central line placement based on the vein to be cannulated. The patients left neck was prepped and draped in sterile fashion. 1 % Lidocaine was used to anesthetize the surrounding skin area. A double lumen hemodialysis catheter was introduced into the the internal jugular vein using the Seldinger technique and under ultrasound guidance. The catheter was threaded smoothly over the guide wire and appropriate blood return was obtained. Each lumen of the catheter was evacuated of air and flushed with sterile saline. The catheter was then sutured in place to the skin and a sterile dressing applied. Perfusion to the extremity distal to the point of catheter insertion was checked and found to be adequate. Estimated Blood Loss: 1ml The patient tolerated the procedure well and there were no complications. Xavier Travis MD Apr 26, 2017 4:11 am
[2017-04-26 04:31] LABS: AUTOMATED NEUTROPHIL # 7.5 TH/MM3 (1.8-7.7); BASOPHIL % 0.4 % (0.0-2.0); EOSINOPHIL % 0.1 % (0.0-4.0); HEMATOCRIT 28.1 % (35.0-46.0); HEMO FLAGS DIFF FINAL; LYMPH % 3.8 % (9.0-44.0); LYMPHOCYTE # 0.3 TH/MM3 (1.0-4.8); MEAN CELL VOLUME 93.4 FL (80.0-100.0); MEAN CORPUSCULAR HGB CONC 32.1 % (32.0-36.0); MONO % 3.7 % (0.0-8.0); PLATELET COUNT 360 TH/MM3 (150-450); RED BLOOD COUNT 3.01 MIL/MM3 (4.00-5.30); RED CELL DISTRIBUTION WIDTH 21.7 % (11.6-17.2); WHITE BLOOD COUNT 8.1 TH/MM3 (4.0-11.0)
[2017-04-26 05:08] LABS: BICARBONATE 31.3 MEQ/L (21.0-32.0); CALCIUM-PROTEIN CORRECTED 7.7 MG/DL (8.5-10.1); POTASSIUM 4.7 MEQ/L (3.5-5.1); TOTAL BILIRUBIN ADULT 0.5 MG/DL (0.2-1.0)
[2017-04-26] MEDS: LEVOTHYROXINE SODIUM 150 MCG TAB PO SCH (06:31)
[2017-04-26] MEDS ORDERED: RIVAROXABAN 10 MG TAB PO SCH (09:00)
[2017-04-26] MEDS: DOCUSATE SODIUM 50 MG/SENNA 8.6 MG TAB PO SCH ×2 (09:00→21:00)
[2017-04-26] MEDS: MULTIVITAMINS/MINERALS THERAPEUTIC TAB PO SCH (09:53)
[2017-04-26] MEDS: DULoxetine HCl DR 60 MG CAP PO SCH (09:53)
[2017-04-26] MEDS: LACTOBACILLUS ACIDOPHILUS TAB PO SCH ×3 (09:53→17:38)
[2017-04-26] MEDS: ASPIRIN 81 MG CHEW TAB PO SCH (09:54)
--- NOTE | 2017-04-26 12:53 | HHI.NPPN ---
Subjective History of Present Illness 76 year old female with ARF Hyperkalemia bradycardia had emergent dialysis for hyperkalemia Review of Systems General Constitutional: Fatigue Objective Data Data Vital Signs Date Time Temp Pulse Resp B/P (MAP) Pulse Ox O2 Delivery O2 Flow Rate FiO2 04/26/17 08:16 95 Nasal Cannula 5.00 04/26/17 06:00 97 04/26/17 06:00 97 16 96/55 (69) 100 04/26/17 05:00 95 15 82/50 (61) 100 04/26/17 04:00 96 04/26/17 04:00 98.2 96 25 104/58 (73) 82 04/26/17 03:00 114 17 92/50 (64) 98 04/26/17 02:00 69 15 91/52 (65) 100 04/26/17 02:00 69 04/26/17 01:00 70 23 116/59 (78) 99 04/26/17 00:00 98.1 83 29 133/63 (86) 93 04/26/17 00:00 83 04/25/17 23:00 61 23 112/53 (72) 95 Manual Cuff/Auscultation 04/25/17 22:00 40 04/25/17 22:00 40 24 87/66 (73) 97 Manual Cuff/Auscultation 04/25/17 21:30 95 Nasal Cannula 5.00 04/25/17 21:00 97.6 59 23 82/44 (57) 84 Manual Cuff/Auscultation 04/25/17 21:00 59 04/25/17 20:32 04/25/17 19:34 69 14 89/41 (57) 95 Nasal Cannula 4.00 04/25/17 19:00 70 24 64/40 (48) 96 Nasal Cannula 3.00 04/25/17 18:28 98.0 20 24 96 04/25/17 18:28 70 24 97 Nasal Cannula 3.00 -: 04/26/17 0404 04/26/17 0403 Physical Exam General Appearance: Well Developed Eyes Eye Exam: Pupils Equal Throat Throat Exam: Oral Mucosa [place] & Moist Neck Neck Exam: Neck Supple Pulmonary Resp Exam: Clear Bilaterally, Breath Sounds Equal Cardiology CV Exam: Arrhythmia Gastrointestinal/Abdomen GI Exam: Soft, Non-Tender, Bowel Sounds Present Extremeties Extremities Exam: No Edema Assessment/Plan Problem List: (1) Hyperkalemia ICD Codes: E87.5 - Hyperkalemia Status: Resolved Plan: . resolved (2) Acute renal failure ICD Codes: N17.9 - Acute kidney failure, unspecified Status: Acute Plan: Patient has history of cardiorenal syndrome and currently ATN is suspected she has decline in creatinine watch I/O Decrease IVF (3) Hypotension ICD Codes: I95.9 - Hypotension, unspecified Status: Acute Plan: Due to cardiogenic shock (4) Acute on chronic diastolic CHF (congestive heart failure) ICD Codes: I50.33 - Acute on chronic diastolic (congestive) heart failure Status: Resolved Plan: Patient has a history of mitral regurgitation (5) DM (diabetes mellitus) ICD Codes: E11.9 - Type 2 diabetes mellitus without complications Status: Chronic Plan: Follow blood glucose Problem Qualifiers (1) Acute renal failure: Qualified Codes: N17.0 - Acute kidney failure with tubular necrosis Tammie Suggs MD Apr 26, 2017 12:53
--- NOTE | 2017-04-26 16:29 | HHI.CCPN ---
Subjective Remarks/Hospital Course 04/25: 76-year-old female with history coronary artery disease, CHF/diastolic dysfunction, cardiomegaly, chronic renal insufficiency who presents from the [facility] with a potassium level of 8.9 and significant bradycardia The patient states she's been feeling not well the last 3-4 days. Apparently there was blood work drawn and showed a potassium of 8.9. When paramedics arrived they found the patient to be with a heart rate in the low 20s. They started transcutaneous pacing at that time. She is complaining of no chest pain, chest pressure. There is no reported shortness of breath. 04/26: More dialysis last night with improvement in hyperkalemia and bradycardia. This morning is awake and alert. Not in any acute distress. Objective Vital Signs Date Time Temp Pulse Resp B/P (MAP) Pulse Ox O2 Delivery O2 Flow Rate FiO2 04/26/17 13:00 99 25 99/58 (72) 99 04/26/17 12:00 98.6 04/26/17 08:16 Nasal Cannula 5.00 Intake and Output 04/26/17 04/26/17 04/27/17 08:00 16:00 00:00 Intake Total 480 ml Balance 480 ml Result Diagram: 04/26/17 0404 04/26/17 0403 Imaging Last Impressions Chest X-Ray 04/25/17 1905 Signed Impressions: Service Date/Time: Tuesday, April 25, 2017 19:59 - CONCLUSION: 1. Interval placement of a left IJ dialysis type catheter with the tip projecting over the central venous system. No pneumothorax. 2. Cardiomegaly with interstitial prominence and probable bilateral pleural effusions characteristic of CHF/ volume overload. Govind Mccormick MD Objective Remarks GENERAL: Elderly-appearing female sitting up in bed not in any acute distress. SKIN: Warm and dry. HEAD: Normocephalic. EYES: No scleral icterus. No injection or drainage. NECK: Supple, trachea midline. No JVD or lymphadenopathy. CARDIOVASCULAR: Regular rate and rhythm without murmurs, gallops, or rubs. RESPIRATORY: Breath sounds equal bilaterally. No accessory muscle use. GASTROINTESTINAL: Abdomen soft, non-tender, nondistended. MUSCULOSKELETAL: No cyanosis, or edema. BACK: Nontender without obvious deformity. NEURO EXAM: Awake alert oriented 3, nonfocal grossly A/P Assessment and Plan Acute kidney injury - Severe hyperkalemia - Over diuresed dehydrated -Underwent Emergent hemodialysis - Insulin glucose sodium bicarbonate and calcium gluconate 1 - IV fluids resuscitation - Further per nephrology Bradycardia - Due to hyperkalemia, resolved after dialysis - Telemetry - Dialysis Hypotension - Improving with dialysis - IV fluids CHF/diastolic dysfunction - Blood pressure control Atrial fibrillation -Hold Xarelto in view of acute kidney injury. Will need to decide different agent for anticoagulation if renal function does not improve. - Hold metoprolol and diltiazem due to bradycardia Anxiety/Depression - Cymbalta - Trazodone DVT GI prophylaxis - Teds SCDs - Xarelto on hold currently. We will initiate heparin 5000 units subcutaneously every 8 hourly on 04/27 - Pepcid COPD - DuoNeb scheduled and when necessary History of CVA - Aspirin - Atorvastatin - Xarelto on hold currently. Rashawn Somers MD Apr 26, 2017 16:29
--- NOTE | 2017-04-26 16:46 | EKG ---
Date Performed: 04/25/2017 Time Performed: 20:51:20 PTAGE: 76 years EKG: PROFOUND SINUS BRADYCARDIA POSSIBLE LEFT ATRIAL ENLARGEMENT MARKED RIGHT AXIS DEVIATION LOW QRS VOLTAGE POSSIBLE RIGHT VENTRICULAR CONDUCTION DELAY ANTEROSEPTAL MYOCARDIAL INFARCTION , OF INDE TERMINATE AGE. When compared to previous tracing, the patient is now in a Profound sinus Bradicardia. ABNORMAL ECG PREVIOUS TRACING : 04/09/2017 08.34 DOCTOR: Holli Roth Interpretating Date/Time 04/26/2017 16:44:22
[2017-04-26] MEDS: HEPARIN SODIUM - SQ 10,000 UNITS/ML VIAL SQ SCH (22:10)
[2017-04-27] VITALS (28 sets, daily range): BP systolic 84–140; BP diastolic 55–79; PULSE 73–125; RESP 7–29; TEMP 98.3–98.6; O2SAT 82–100
[2017-04-27] MEDS: CHLORHEXIDINE GLUCONATE 2 % 1 PACK (2 CLOTHS) TOP SCH (03:44)
[2017-04-27] MEDS: LEVOTHYROXINE SODIUM 150 MCG TAB PO SCH (05:52)
[2017-04-27] MEDS: HEPARIN SODIUM - SQ 10,000 UNITS/ML VIAL SQ SCH ×3 (05:53→21:02)
[2017-04-27] MEDS ORDERED: AMIODARONE INJ 450 MG in D5W (EXCEL BAG) INJ 241 ML IV PRN (06:00)
[2017-04-27] MEDS ORDERED: AMIODARONE INJ 150 MG in DEXTROSE 5% IN WATER 100ML INJ 100 ML IV ONE ×2 (06:00)
[2017-04-27] MEDS ORDERED: AMIODARONE 150 MG/D5W 97 ML BOLUS 10 MINUTES IV ONE ×2 (06:00)
[2017-04-27] MEDS: FAMOTIDINE 20 MG/2 ML VIAL IV PUSH SCH (09:00)
[2017-04-27] MEDS: SODIUM CHLORIDE 0.9% FLUSH 10 ML FLUSH IV FLUSH SCH ×2 (09:00→21:27)
[2017-04-27] MEDS: LACTOBACILLUS ACIDOPHILUS TAB PO SCH ×3 (09:00→18:00)
--- NOTE | 2017-04-27 09:10 | HHI.CCPN ---
Subjective Remarks/Hospital Course 04/25: 76-year-old female with history coronary artery disease, CHF/diastolic dysfunction, cardiomegaly, chronic renal insufficiency who presents from the [facility] with a potassium level of 8.9 and significant bradycardia The patient states she's been feeling not well the last 3-4 days. Apparently there was blood work drawn and showed a potassium of 8.9. When paramedics arrived they found the patient to be with a heart rate in the low 20s. They started transcutaneous pacing at that time. She is complaining of no chest pain, chest pressure. There is no reported shortness of breath. 04/26: Emergent dialysis last night with improvement in hyperkalemia and bradycardia. This morning is awake and alert. Not in any acute distress. 04/27: Patient went into A. fib last night. Was started on amiodarone drip. Patient denies any chest pain shortness of breath currently which is worse than her usual or palpitations. Denies any dizziness currently. She is making urine. Objective Vital Signs Date Time Temp Pulse Resp B/P (MAP) Pulse Ox O2 Delivery O2 Flow Rate FiO2 04/27/17 06:00 123 04/27/17 06:00 14 87/61 (70) 100 04/27/17 04:00 98.6 04/26/17 21:10 Nasal Cannula 3.00 Intake and Output 04/27/17 04/27/17 04/28/17 08:00 16:00 00:00 Intake Total 620 ml Output Total 150 ml Balance 470 ml Result Diagram: 04/26/17 0404 04/26/17 0403 Imaging Last Impressions Chest X-Ray 04/25/17 1905 Signed Impressions: Service Date/Time: Tuesday, April 25, 2017 19:59 - CONCLUSION: 1. Interval placement of a left IJ dialysis type catheter with the tip projecting over the central venous system. No pneumothorax. 2. Cardiomegaly with interstitial prominence and probable bilateral pleural effusions characteristic of CHF/ volume overload. Govind Mccormick MD Objective Remarks GENERAL: Elderly-appearing female sitting up in bed not in any acute distress. SKIN: Warm and dry. HEAD: Normocephalic. EYES: No scleral icterus. No injection or drainage. NECK: Supple, trachea midline. No JVD or lymphadenopathy. CARDIOVASCULAR: S1-S2 irregularly irregular without murmurs, gallops, or rubs. RESPIRATORY: Breath sounds equal bilaterally. No accessory muscle use. GASTROINTESTINAL: Abdomen soft, non-tender, nondistended. MUSCULOSKELETAL: No cyanosis, or edema. BACK: Nontender without obvious deformity. NEURO EXAM: Awake alert oriented 3, nonfocal grossly A/P Assessment and Plan Acute kidney injury - Severe hyperkalemia - Over diuresed dehydrated -Underwent Emergent hemodialysis - Insulin glucose sodium bicarbonate and calcium gluconate 1 - Further per nephrology Bradycardia - Due to hyperkalemia, resolved after dialysis - Telemetry - Dialysis Hypotension - Improving with dialysis - IV fluids CHF/diastolic dysfunction - Blood pressure control Atrial fibrillation -Hold Xarelto in view of acute kidney injury. We'll discuss with nephrology regarding continuing Xarelto versus switching anticoagulant depending on renal recovery -Resume metoprolol as patient went into A. fib with heart rate 100s on amiodarone drip currently. If blood pressure tolerates will resume diltiazem. Cardiology consulted to follow-up - patient states Dr. Azul sees her for Dr. Cardona now. Anxiety/Depression - Cymbalta - Trazodone DVT GI prophylaxis - Teds SCDs - Xarelto on hold currently. We will initiate heparin 5000 units subcutaneously every 8 hourly on 04/27 - Pepcid COPD - DuoNeb scheduled and when necessary History of CVA - Aspirin - Atorvastatin - Xarelto on hold currently. Rashawn Somers MD Apr 27, 2017 09:10
[2017-04-27 09:11] LABS: AUTOMATED NEUTROPHIL # 6.3 TH/MM3 (1.8-7.7); BASOPHIL % 0.2 % (0.0-2.0); EOSINOPHIL % 0.6 % (0.0-4.0); HEMATOCRIT 26.8 % (35.0-46.0); HEMO FLAGS DIFF FINAL; LYMPH % 5.1 % (9.0-44.0); LYMPHOCYTE # 0.4 TH/MM3 (1.0-4.8); MEAN CELL VOLUME 95.5 FL (80.0-100.0); MEAN CORPUSCULAR HEMOGLOBIN 30.8 PG (27.0-34.0); MEAN CORPUSCULAR HGB CONC 32.2 % (32.0-36.0); MONO % 5.8 % (0.0-8.0); NEUT % 88.3 % (16.0-70.0); PLATELET COUNT 315 TH/MM3 (150-450); RED CELL DISTRIBUTION WIDTH 21.2 % (11.6-17.2); WHITE BLOOD COUNT 7.2 TH/MM3 (4.0-11.0)
[2017-04-27 09:37] LABS: BICARBONATE 27.6 MEQ/L (21.0-32.0); POTASSIUM 4.3 MEQ/L (3.5-5.1)
[2017-04-27 09:53] LABS: CALCIUM-PROTEIN CORRECTED 8.1 MG/DL (8.5-10.1)
[2017-04-27] MEDS: DULoxetine HCl DR 60 MG CAP PO SCH (09:53)
[2017-04-27] MEDS: ASPIRIN 81 MG CHEW TAB PO SCH (09:53)
[2017-04-27] MEDS: MULTIVITAMINS/MINERALS THERAPEUTIC TAB PO SCH (09:53)
[2017-04-27] MEDS: DOCUSATE SODIUM 50 MG/SENNA 8.6 MG TAB PO SCH ×2 (09:53→21:03)
[2017-04-27] MEDS: METOPROLOL TARTRATE 50 MG TAB PO SCH ×2 (09:53→21:03)
[2017-04-27] MEDS ORDERED: INFLUENZA VIRUS VACCINE (QUADRIVALENT) 0.5 ML SYR IM ONE (10:00)
[2017-04-27] MEDS ORDERED: PNEUMOCOCCAL POLYVALENT INJ 25 MCG/0.5 ML SYR IM ONE (10:00)
[2017-04-27] MEDS: FAMOTIDINE 20 MG TAB PO SCH (10:34)
[2017-04-27] MEDS: AMIODARONE INJ 450 MG in DEXTROSE 5% IN WATE(EXCEL) INJ 241 ML IV PRN ×2 (10:46)
[2017-04-27] MEDS: SODIUM CHLOR 0.9% 1000 ML INJ 1,000 ML IV SCH (10:47)
--- NOTE | 2017-04-27 14:10 | HHI.NPPN ---
Subjective History of Present Illness 76 year old female with ARF Hyperkalemia bradycardia had emergent dialysis for hyperkalemia Review of Systems General Constitutional: Fatigue Objective Data Data 04/27/17 04/28/17 19:00 07:00 Intake Total 420 ml Balance 420 ml IV Total 420 ml Vital Signs Date Time Temp Pulse Resp B/P (MAP) Pulse Ox O2 Delivery O2 Flow Rate FiO2 04/27/17 12:00 92 28 99 04/27/17 12:00 92 04/27/17 12:00 92 28 99 04/27/17 11:14 85 04/27/17 11:14 85 25 109/70 (83) 86 04/27/17 10:46 105 04/27/17 10:30 82 26 104/65 (78) 91 04/27/17 10:30 82 04/27/17 10:00 116 23 109/65 (80) 82 04/27/17 10:00 116 04/27/17 09:31 111 04/27/17 09:31 111 24 117/60 (79) 86 04/27/17 09:00 98 26 140/60 (86) 98 04/27/17 09:00 98 04/27/17 08:54 94 Nasal Cannula 5.00 04/27/17 08:30 104 18 117/70 (86) 100 04/27/17 08:30 104 04/27/17 08:00 104 19 119/67 (84) 95 04/27/17 08:00 104 04/27/17 06:00 123 04/27/17 06:00 123 14 87/61 (70) 100 04/27/17 05:53 136 105/73 04/27/17 05:00 125 20 109/62 (78) 100 04/27/17 04:00 98.6 117 17 101/63 (76) 100 04/27/17 04:00 117 04/27/17 03:00 116 15 97/58 (71) 100 04/27/17 02:00 95 21 102/60 (74) 100 04/27/17 02:00 95 04/27/17 01:00 125 7 84/59 (67) 100 04/27/17 00:00 125 04/27/17 00:00 125 29 91/55 (67) 91 04/26/17 23:00 118 18 96/52 (67) 100 04/26/17 22:00 114 04/26/17 22:00 114 20 100/57 (71) 91 04/26/17 21:10 99 Nasal Cannula 3.00 04/26/17 21:00 110 25 104/69 (81) 96 04/26/17 20:00 98.5 116 22 114/68 (83) 04/26/17 20:00 116 04/26/17 19:00 117 25 106/68 (81) 81 04/26/17 18:00 111 36 122/56 (78) 79 04/26/17 17:30 107 25 108/70 (83) 78 04/26/17 17:01 103 27 101/65 (77) 85 04/26/17 17:00 95 26 84 04/26/17 16:30 96 21 97/52 (67) 98 04/26/17 16:00 98.7 98 23 95/52 (66) 100 04/26/17 15:30 101 16 94/51 (65) 100 04/26/17 15:00 102 20 98/55 (69) 100 04/26/17 14:30 104 17 97/60 (72) 98 -: 04/27/17 0730 04/27/17 0730 Physical Exam General Appearance: Well Developed Eyes Eye Exam: Pupils Equal Throat Throat Exam: Oral Mucosa [place] & Moist Neck Neck Exam: Neck Supple Pulmonary Resp Exam: Crackles, Decreased Bases Cardiology CV Exam: Arrhythmia Gastrointestinal/Abdomen GI Exam: Soft, Non-Tender, Bowel Sounds Present Extremeties Extremities Exam: No Edema Assessment/Plan Problem List: (1) Hyperkalemia ICD Codes: E87.5 - Hyperkalemia Status: Resolved Plan: . resolved (2) Acute renal failure ICD Codes: N17.9 - Acute kidney failure, unspecified Status: Acute Plan: Patient has history of cardiorenal syndrome and currently ATN is suspected she has decline in creatinine watch I/O Lasix restart 40 mg daily BMP may dc vascath tomorrow restart Eliquis 2.5 mg bid ok with Nephrology (3) Hypotension ICD Codes: I95.9 - Hypotension, unspecified Status: Acute Plan: Due to cardiogenic shock (4) Acute on chronic diastolic CHF (congestive heart failure) ICD Codes: I50.33 - Acute on chronic diastolic (congestive) heart failure Status: Resolved Plan: Patient has a history of mitral regurgitation (5) DM (diabetes mellitus) ICD Codes: E11.9 - Type 2 diabetes mellitus without complications Status: Chronic Plan: Follow blood glucose Problem Qualifiers (1) Acute renal failure: Qualified Codes: N17.0 - Acute kidney failure with tubular necrosis Tammie Suggs MD Apr 27, 2017 14:10
[2017-04-27] MEDS ORDERED: FUROSEMIDE 40 MG/4 ML VIAL IV PUSH ONE (14:15)
[2017-04-27] MEDS: ATORVASTATIN 80 MG TAB PO SCH (21:02)
[2017-04-27] MEDS: valACYclovir HCL 500 MG TAB PO SCH (21:02)
[2017-04-27] MEDS: traZODone HCL 50 MG TAB PO SCH (21:03)
[2017-04-27] MEDS: FENOFIBRATE 145 MG TAB PO SCH (21:03)
[2017-04-27] MEDS: MIRTAZAPINE 15 MG TAB PO SCH (21:03)
[2017-04-27] MEDS: ALPRAZolam 0.25 MG TAB PO PRN (21:27)
--- NOTE | 2017-04-27 23:00 | MB ---
cc: YUNG PAINTER DO DATE OF CONSULTATION: 04/27/2017 REASON FOR CONSULTATION: Congestive heart failure, atrial fibrillation. HISTORY OF PRESENT ILLNESS Lorenaz Garcia is a pleasant 76-year-old female who sees my partner Dr. Cardona in the office and presented to [facility] Emergency Room on April 25, 2017 with multiple complaints. She states that over the past 3-4 days she has not felt well and has not been eating or drinking much. She was having some nausea but no emesis. She also states that she was having diarrhea. For the past [id number] days she has mostly slept all day without any oral intake. EMS was called from her half-way and she was found to have a potassium level of 8.9 and significant bradycardia with a heart rate in the 20s. She was started on a transcutaneous pacing and brought to the emergency room. She denies chest pain or pressure throughout the episode. She underwent dialysis and with resolution of her hyperkalemia the bradycardia resolved. Post dialysis, she was in atrial fibrillation with rapid ventricular response and was started on amiodarone drip. In seeing her she is currently stable, sitting up in a chair without complaints. PAST MEDICAL HISTORY: 1. Hypertension 2. Diastolic congestive heart failure with a normal ejection fraction (65-70% on March 06, 2017). 3. Atrial fibrillation on Xarelto 4. Anxiety 5. Depression 6. COPD 7. History of CVA. 8. Multiple pleural effusions treated with thoracotomy. PAST SURGICAL HISTORY 1. CABG x3, (February 2016). 2. Gastric bypass. 3. Bilateral cataract surgery. 4. Teeth extraction. 5. Right thoracoscopic exploration with talc pleurodesis (December 20, 2016). ALLERGIES 1. Erythromycin 2. Penicillin. MEDICATIONS 1. Valtrex 1 gram every night 2. Xarelto 20 mg daily 3. Fenofibrate 160 mg every night 4. Lipitor 80 mg every night 5. Hydralazine 25 mg every 8 hours. 6. Metoprolol tartrate 50 mg every 12 hours. 7. Cardizem 90 mg q.i.d. 8. Losartan 50 mg daily 9. Aspirin 81 mg daily 10. Loxitane 60 mg daily 11. Mirtazapine 7.5 mg every night 12. Trazodone 50 mg every night 13. Xanax every 6 hours as needed for anxiety 14. Potassium 20 mEq daily 15. Lasix 40 mg daily 16. Protonix 40 mg daily 17. NovoLog sliding scale. 18. Levemir 15 units every night 19. Synthroid 150 mcg daily. FAMILY HISTORY Denies premature coronary artery disease or sudden cardiac within the family. SOCIAL HISTORY Occasionally drinks alcohol. Denies tobacco or drug abuse. REVIEW OF SYSTEMS 14-systems were reviewed including osteopathic pertinent positives and negatives above, otherwise negative. PHYSICAL EXAMINATION Vital signs: Temperature 98.6, heart rate 92, blood pressure 109/70, respirations 20, pulse ox 99% on 4 liters. In general, the patient is an elderly female in no acute distress, alert, awake and oriented x3. Extraocular muscles intact. Mucous membranes moist. Neck is supple. No JVD at 45 degrees. No carotid bruits heard bilaterally. Carotid upstroke is brisk in nature. Heart: Irregularly irregular, positive first and second heart sounds but no murmurs, rubs, or gallops. Lungs: Decreased breath sounds bilateral bases but no overt rales, rhonchi or wheezing. Abdomen: Soft, non-tender, non-distended. No organomegaly noted. Extremities: Show no clubbing, cyanosis or edema. Femoral and distal pulses intact bilaterally. Neurologically: No focal deficits. Skin: Warm, dry and intact. Osteopathic, with no kyphoscoliosis, lordosis or paraspinal tender points. LABORATORY WORK: Hemoglobin 8.6, hematocrit 26.8, platelets 315. Potassium 4.3, BUN 42, creatinine 2.57. Electrocardiogram (April 25, 2017 at 20:51) profound sinus bradycardia with a heart rate of 27, possible left atrial enlargement, incomplete right bundle branch block, anterior septal myocardial infarction of indeterminate age. IMPRESSION 1. Significant bradycardia, most likely due to hyperkalemia which has since resolved with dialysis. 2. Acute kidney injury on chronic kidney disease started on emergent dialysis. 3. Severe hyperkalemia 4. Hypotension most likely due to bradycardia. 5. Chronic diastolic congestive heart failure with a normal ejection fraction. 6. Atrial fibrillation with rapid ventricular response. 7. Anxiety 8. Depression 9. History of coronary artery disease with CABG x3. RECOMMENDATIONS 1. Ms. Garcia presented with severe hyperkalemia most likely causing her bradycardia. Her bradycardia has since resolved after dialysis. 2. She had an episode of atrial fibrillation with rapid ventricular response and has been started on amiodarone IV. We will plan on starting her back on her AV dilip blocking agents and attempting to wean off amiodarone. 3. Xarelto has been held at this time. We will have to see where her overall GFR is an discuss further with nephrology but if her creatinine clearance is less than 50, then she will most likely need to be on Xarelto 15 mg daily. 4. We will continue her on Lasix and her overall fluid management will be deemed by her urine output as well as hemodialysis. 5. She did have a mildly elevated troponin but this appears to be her baseline if not better than usual. Further recommendations will be made based on the hospital course. Thank you for allowing me to see Lorenza Garcia. If there are any questions, please do not hesitate to call. Yung Painter DO VGP/JUANJOSE /9:43 PM /10:19 PM
[2017-04-28] VITALS (29 sets, daily range): BP systolic 106–145; BP diastolic 56–88; PULSE 75–92; RESP 6–29; TEMP 98.3–98.6; O2SAT 72–100
[2017-04-28] MEDS: AMIODARONE INJ 450 MG in DEXTROSE 5% IN WATE(EXCEL) INJ 241 ML IV PRN ×2 (02:37)
[2017-04-28] MEDS: CHLORHEXIDINE GLUCONATE 2 % 1 PACK (2 CLOTHS) TOP SCH (04:00)
[2017-04-28] MEDS: HEPARIN SODIUM - SQ 10,000 UNITS/ML VIAL SQ SCH ×3 (05:34→21:13)
[2017-04-28] MEDS: LEVOTHYROXINE SODIUM 150 MCG TAB PO SCH (05:34)
--- NOTE | 2017-04-28 05:38 | RADRPT ---
EXAM DATE/TIME: 04/28/2017 03:41 [facility] COMPARISON: CHEST PA & LAT, April 16, 2017, 9:55. CHEST EXPIRATION ONLY, April 14, 2017, 11:09. CHEST SIN GLE AP, April 25, 2017, 19:59. INDICATIONS : Shortness of breath, possible pulmonary disease. MEDICAL HISTORY : Cardiovascular disease. Congestive heart failure. Hypertension. SURGICAL HISTORY : CABG. ENCOUNTER: Subsequent ACUITY: 4 - 6 days PAIN SCORE: Non-responsive. LOCATION: Bilateral chest FINDINGS: There is a left internal jugular central line in good position. The patient is status post sternotomy . The cardiac silhouette appears enlarged. The lungs demonstrate diffuse mixed interstitial and alveo lar density. There is silhouetting of the hemidiaphragms bilaterally. The alveolar density is worse a t the left base. There is some lucency along the superior and lateral left chest. A distinct pleural line is not clearly identified. CONCLUSION: 1. Enlargement cardiac silhouette. 2. Diffuse mixed interstitial lobular consolidation which appears worse. Slightly worsened worsening edema. 3. Lucency seen along the superior and lateral left upper chest. This could be related to skin fold. A pneumothorax cannot absolutely be excluded. A one could further evaluate this with a repeat chest x -ray repositioning the patient to insure there is no overlying skinfold on the left chest. one could also perform a right lateral decubitus image to further evaluate this region. This information was related to Deana, the patient's nurse, by telephone. Mango Sheth MD on April 28, 2017 at 5:24 Board Certified Radiologist. This report was verified electronically.
[2017-04-28 06:52] LABS: AUTOMATED NEUTROPHIL # 5.7 TH/MM3 (1.8-7.7); BASOPHIL # 0.1 TH/MM3 (0-0.2); BASOPHIL % 1.1 % (0.0-2.0); EOSINOPHIL # 0.1 TH/MM3 (0-0.4); EOSINOPHIL % 0.9 % (0.0-4.0); HEMATOCRIT 30.2 % (35.0-46.0); HEMO FLAGS DIFF FINAL; LYMPH % 7.4 % (9.0-44.0); LYMPHOCYTE # 0.5 TH/MM3 (1.0-4.8); MEAN CELL VOLUME 95.4 FL (80.0-100.0); MEAN CORPUSCULAR HEMOGLOBIN 29.8 PG (27.0-34.0); MEAN CORPUSCULAR HGB CONC 31.3 % (32.0-36.0); MONO % 7.7 % (0.0-8.0); NEUT % 82.9 % (16.0-70.0); PLATELET COUNT 374 TH/MM3 (150-450); RED BLOOD COUNT 3.16 MIL/MM3 (4.00-5.30); RED CELL DISTRIBUTION WIDTH 21.9 % (11.6-17.2); WHITE BLOOD COUNT 6.8 TH/MM3 (4.0-11.0)
[2017-04-28 07:08] LABS: BICARBONATE 29.6 MEQ/L (21.0-32.0); POTASSIUM 4.7 MEQ/L (3.5-5.1)
[2017-04-28] MEDS: ASPIRIN 81 MG CHEW TAB PO SCH (09:00)
[2017-04-28] MEDS ORDERED: FUROSEMIDE 100 MG/10 ML VIAL IV PUSH ONE (09:15)
--- NOTE | 2017-04-28 10:06 | RADRPT ---
EXAM DATE/TIME: 04/28/2017 09:02 [facility] COMPARISON: CHEST SINGLE AP, April 28, 2017, 3:41. INDICATIONS : Shortness of breath. Cardiomegaly and pulmonary infiltrates MEDICAL HISTORY : Myocardial infarction. Congestive heart failure. Hypercholesterolemia. Coronary artery disease. Afib. HTN. COPD. Emphysema. Pneumonia. Dyspnea. Ulcer. Hiatal hernia. GERD. Renal failure. Arthritis. Diab etes. Depression. MRSA. Anticoagulant therapy, Xarelto. SURGICAL HISTORY : CABG. Coronary artery stent. Bilateral cataracts. Teeth extraction. Cardiac cath.Lung scraped to read here. Gastric bypass. ENCOUNTER: Subsequent ACUITY: 4 - 6 days PAIN SCORE: 0/10 LOCATION: Bilateral chest FINDINGS: A single AP semierect portable view of the chest was obtained and again demonstrates that the patient is status post median sternotomy. Left internal jugular double lumen line remains in place. Heart si ze remains markedly enlarged with globular configuration. Hazy perihilar and bibasilar opacities igor in but appear mildly improved. Both costophrenic angles are blunted and there is obscuration of the h emidiaphragms. The bony structures remain intact with multiple overlying electrocardiogram leads and oxygen tubing. CONCLUSION: 1. Mild interval improvement in bilateral pulmonary infiltrates most consistent with improving pulmon loreto edema. 2. Marked cardiomegaly again noted with bilateral effusions. Nadir Hansen MD on April 28, 2017 at 10:02 Board Certified Radiologist. This report was verified electronically.
--- NOTE | 2017-04-28 10:53 | RADRPT ---
EXAM DATE/TIME: 04/28/2017 10:26 [facility] COMPARISON: CHEST SINGLE AP, April 28, 2017, 9:02. INDICATIONS : Congestive heart failure. Status post left pigtail chest tube placement. MEDICAL HISTORY : Cardiovascular disease. Congestive heart failure. Hypertension. SURGICAL HISTORY : CABG. ENCOUNTER: Initial ACUITY: 3 days PAIN SCORE: 0/10 LOCATION: Bilateral chest FINDINGS: A single AP portable erect view of the chest was obtained and demonstrates placement of small bore le ft-sided chest tube tip projected over the left lateral mid abdomen. There is an apparent small left apical pneumothorax. Heart size remains markedly enlarged with globular configuration. Diffuse bilate ral pulmonary infiltrates are again noted greatest at the lung bases and perihilar regions. This not significantly changed. There has been apparent slight decrease in the left effusion. Both costophreni c angles remain blunted. The left internal jugular double lumen central venous line remains in place. Patient is status post median sternotomy. Multiple overlying electrocardiogram leads remain. CONCLUSION: 1. Interval placement of small bore left-sided chest tube with apparent small apical left pneumothora x. 2. Marked cardiomegaly and bilateral infiltrates remain. 3. Apparent slight decrease in left effusion. Bilateral pleural effusions remain. Nadir Hansen MD on April 28, 2017 at 10:48 Board Certified Radiologist. This report was verified electronically.
[2017-04-28] MEDS: DULoxetine HCl DR 60 MG CAP PO SCH (11:09)
[2017-04-28] MEDS: MULTIVITAMINS/MINERALS THERAPEUTIC TAB PO SCH (11:09)
[2017-04-28] MEDS: FUROSEMIDE 20 MG/2 ML VIAL IV PUSH SCH (11:09)
[2017-04-28] MEDS: DOCUSATE SODIUM 50 MG/SENNA 8.6 MG TAB PO SCH ×2 (11:09→21:13)
[2017-04-28] MEDS: FAMOTIDINE 20 MG TAB PO SCH (11:09)
[2017-04-28] MEDS: LACTOBACILLUS ACIDOPHILUS TAB PO SCH ×3 (11:09→18:00)
[2017-04-28] MEDS: METOPROLOL TARTRATE 50 MG TAB PO SCH ×2 (11:09→21:13)
[2017-04-28] MEDS: SODIUM CHLORIDE 0.9% FLUSH 10 ML FLUSH IV FLUSH SCH ×2 (11:10→21:12)
--- NOTE | 2017-04-28 12:28 | HHI.CCPN ---
Subjective Remarks/Hospital Course 04/25: 76-year-old female with history coronary artery disease, CHF/diastolic dysfunction, cardiomegaly, chronic renal insufficiency who presents from the [facility] with a potassium level of 8.9 and significant bradycardia The patient states she's been feeling not well the last 3-4 days. Apparently there was blood work drawn and showed a potassium of 8.9. When paramedics arrived they found the patient to be with a heart rate in the low 20s. They started transcutaneous pacing at that time. She is complaining of no chest pain, chest pressure. There is no reported shortness of breath. 04/26: Emergent dialysis last night with improvement in hyperkalemia and bradycardia. This morning is awake and alert. Not in any acute distress. 04/27: Patient went into A. fib last night. Was started on amiodarone drip. Patient denies any chest pain shortness of breath currently which is worse than her usual or palpitations. Denies any dizziness currently. She is making urine. 04/28: Remains on nasal cannula. Breathing about the same. Has some shortness of breath. Chest x-ray from this morning had a question of pneumothorax on the left with pulmonary edema/effusions. After obtaining informed consent I placed her left pigtail catheter with ultrasound guidance which was placed to -40 cm water pressure. Positive air leak and drained about 1200 cc of straw-colored pleural fluid immediately after placement. Objective Vital Signs Date Time Temp Pulse Resp B/P (MAP) Pulse Ox O2 Delivery O2 Flow Rate FiO2 04/28/17 06:00 82 04/28/17 04:00 98.4 25 106/56 (73) 04/28/17 00:00 95 04/27/17 20:38 Nasal Cannula 4.00 Intake and Output 04/28/17 04/28/17 04/29/17 08:00 16:00 00:00 Intake Total 297 ml Output Total 300 ml Balance -3 ml Result Diagram: 04/28/17 0553 04/28/17 0559 Imaging Last 24 hours Impressions Chest X-Ray 04/28/17 06 Signed Impressions: Service Date/Time: March 03:41 - CONCLUSION: 1. Enlargement cardiac silhouette. 2. Diffuse mixed interstitial lobular consolidation which appears worse. Slightly worsened worsening edema. 3. Lucency seen along the superior and lateral left upper chest. This could be related to skin fold. A pneumothorax cannot absolutely be excluded. A one could further evaluate this with a repeat chest x-ray repositioning the patient to insure there is no overlying skinfold on the left chest. one could also perform a right lateral decubitus image to further evaluate this region. This information was related to Deana, the patient's nurse, by telephone. Mango Sheth MD Chest X-Ray 04/28/17 0000 Signed Impressions: Service Date/Time: March 10:26 - CONCLUSION: 1. Interval placement of small bore left-sided chest tube with apparent small apical left pneumothorax. 2. Marked cardiomegaly and bilateral infiltrates remain. 3. Apparent slight decrease in left effusion. Bilateral pleural effusions remain. Nadir Hansen MD Chest X-Ray 04/28/17 0000 Signed Impressions: Service Date/Time: March 09:02 - CONCLUSION: 1. Mild interval improvement in bilateral pulmonary infiltrates most consistent with improving pulmonary edema. 2. Marked cardiomegaly again noted with bilateral effusions. Nadir Hansen MD Last Impressions Chest X-Ray 04/25/17 1905 Signed Impressions: Service Date/Time: Tuesday, April 25, 2017 19:59 - CONCLUSION: 1. Interval placement of a left IJ dialysis type catheter with the tip projecting over the central venous system. No pneumothorax. 2. Cardiomegaly with interstitial prominence and probable bilateral pleural effusions characteristic of CHF/ volume overload. Govind Mccormick MD Objective Remarks GENERAL: Elderly-appearing female sitting up in bed not in any acute distress. SKIN: Warm and dry. HEAD: Normocephalic. EYES: No scleral icterus. No injection or drainage. NECK: Supple, trachea midline. No JVD or lymphadenopathy. CARDIOVASCULAR: S1-S2 irregularly irregular without murmurs, gallops, or rubs. RESPIRATORY: Breath sounds equal bilaterally. No accessory muscle use. GASTROINTESTINAL: Abdomen soft, non-tender, nondistended. MUSCULOSKELETAL: No cyanosis, or edema. BACK: Nontender without obvious deformity. NEURO EXAM: Awake alert oriented 3, nonfocal grossly A/P Assessment and Plan Acute kidney injury - Severe hyperkalemia - Over diuresed dehydrated -Underwent Emergent hemodialysis - Insulin glucose sodium bicarbonate and calcium gluconate 1 - Further per nephrology Bradycardia/ hypotension - Due to hyperkalemia, resolved after dialysis - Telemetry - Dialysis CHF/diastolic dysfunction - Blood pressure control - diurese with lasix. Atrial fibrillation -Hold Xarelto in view of acute kidney injury. We'll discuss with nephrology regarding continuing Xarelto versus switching anticoagulant depending on renal recovery -Resumed metoprolol as patient went into A. fib with heart rate 100s on amiodarone drip currently. If blood pressure tolerates will resume diltiazem. Cardiology consulted to follow-up - patient states Dr. Azul sees her for Dr. Cardona now. Pt. seen by Dr. Seals Anxiety/Depression - Cymbalta - Trazodone DVT GI prophylaxis - Teds SCDs - Xarelto on hold currently. We will initiate heparin 5000 units subcutaneously every 8 hourly on 04/27 - Pepcid COPD Left pneumothorax (on CXR 04/28) left pleural effusion -Placed left pigtail catheter on 04/28 with drainage of 1 L of pleural fluid almost immediately and 1+ positive air leak. - DuoNeb scheduled and when necessary History of CVA - Aspirin - Atorvastatin - Xarelto on hold currently, resume if renal function improves if OK with Nephrology. Rashawn Somers MD Apr 28, 2017 12:28
[2017-04-28] MEDS ORDERED: ACETAMINOPHEN 325 MG TAB PO PRN (13:00)
[2017-04-28] MEDS: oxyCODONE/ACETAMINOPHEN 5 MG/325 MG TAB PO PRN (13:12)
--- NOTE | 2017-04-28 13:22 | HHI.NPPN ---
Subjective History of Present Illness 76 year old female with ARF Hyperkalemia bradycardia had emergent dialysis for hyperkalemia Additional Remarks Has left thoracenteses and chest tube due to the pneumothorax Review of Systems General Constitutional: Fatigue Respiratory Lungs: SOB Cardiovascular Cardiac: Edema, GAINES Musculoskeletal MS: Swelling in Joint Objective Data Data Vital Signs Date Time Temp Pulse Resp B/P (MAP) Pulse Ox O2 Delivery O2 Flow Rate FiO2 04/28/17 06:00 82 04/28/17 04:00 98.4 77 25 106/56 (73) 04/28/17 04:00 77 04/28/17 02:37 80 104/68 04/28/17 02:36 80 104/68 04/28/17 02:00 75 04/28/17 00:00 98.6 81 22 107/56 (73) 95 04/28/17 00:00 81 04/27/17 22:00 73 04/27/17 20:38 99 Nasal Cannula 4.00 04/27/17 20:00 98.3 85 24 139/74 (95) 100 04/27/17 20:00 85 04/27/17 18:00 94 25 127/79 (95) 90 04/27/17 18:00 94 04/27/17 17:30 93 21 118/72 (87) 98 04/27/17 17:00 92 25 116/77 (90) 97 04/27/17 16:30 84 21 118/71 (87) 98 04/27/17 16:00 82 04/27/17 16:00 82 22 117/68 (84) 97 04/27/17 15:50 99 28 111/62 (78) 94 04/27/17 15:50 99 04/27/17 15:00 83 24 94 04/27/17 14:00 92 -: 04/28/17 0553 04/28/17 0559 Physical Exam General Appearance: Well Developed Eyes Eye Exam: Pupils Equal Throat Throat Exam: Oral Mucosa [place] & Moist Neck Neck Exam: Neck Supple Pulmonary Resp Exam: Crackles, Decreased Bases Cardiology CV Exam: Arrhythmia Gastrointestinal/Abdomen GI Exam: Soft, Non-Tender, Bowel Sounds Present Extremeties Extremities Exam: Moderate Edema, Pitting Edema Assessment/Plan Problem List: (1) Hyperkalemia ICD Codes: E87.5 - Hyperkalemia Status: Resolved Plan: . resolved (2) Acute renal failure ICD Codes: N17.9 - Acute kidney failure, unspecified Status: Acute Plan: Patient has history of cardiorenal syndrome and currently ATN is suspected she she was told that her condition is again deteriorating and congestive heart failure with chest tube is in place now she has pneumothorax edema is getting worse I told her that there is is a strong possibility that she will require hemodialysis to live She wanted to discuss with hospice to explore other options she said she do not wish to live on machines I discussed with staff office consult will be placed restart Eliquis 2.5 mg bid ok with Nephrology (3) Hypotension ICD Codes: I95.9 - Hypotension, unspecified Status: Acute Plan: Due to cardiogenic shock (4) Acute on chronic diastolic CHF (congestive heart failure) ICD Codes: I50.33 - Acute on chronic diastolic (congestive) heart failure Status: Resolved Plan: Patient has a history of mitral regurgitation (5) DM (diabetes mellitus) ICD Codes: E11.9 - Type 2 diabetes mellitus without complications Status: Chronic Plan: Follow blood glucose Problem Qualifiers (1) Acute renal failure: Qualified Codes: N17.0 - Acute kidney failure with tubular necrosis Tammie Suggs MD Apr 28, 2017 13:22
--- NOTE | 2017-04-28 14:42 | PD.CONS ---
Consult Service Palliative Care . Consult Requested By Dr. Debbie Suggs . Primary Care Physician Remigio Lee, Reason for Consultation a. To assist with evaluation and management of symptoms including: anxiety, dyspnea, debility. b. To assist medical decision maker(s) with: better understanding of current medical conditions; weighing benefits/burdens of medical treatment options; making medical treatment decisions. . HPI History of Present Illness Mrs. Garcia is a 76-year-old female with a medical history of oxygen dependent COPD, diabetes mellitus, recurrent pleural effusions requiring frequent thoracentesis, CAD, hypothyroidism, diastolic CHF with mitral regurgitation, atrial fibrillation, hypertension and depression. Reviewed past medical history and recent acute hospitalizations. This is patient's 9th acute hospitalization this year. Patient underwent cardiac bypass in February 2016 and was released to acute rehabilitation. Additional admissions: * 06/11/16 - 06/18/16 for CHF exacerbation * 07/09/16 - 07/16/16 for pleural effusion/ hypoxia * 07/21/16 - 07/23/16 for hypoxia, shortness of breath * 09/14/16 - 09/22/16 for CHF exacerbation, pulmonary effusion * 11/22/16 - 11/30/16 for generalized weakness/ JULIANE * 12/07/16 - 12/25/16 for GI bleed/ UTI * 03/01/17 - 03/08/17 for acute CHF exacerbation/ A. Fib with RVR * 04/11/17 - 04/18/17 for CHF discharged to [facility] [place]. Patient presented to [facility] ED on 04/25/17 for management of potassium level of 8.9. Notes indicate patient has not been feeling well the past 3-4 days. Upon EMS arrival her heart rate was in the low 20's, transcutaneous pacing was started. Repeat potassium upon arrival 7.9. Creatinine 4.8, BUN 83, sodium 129. She was admitted to ICU with renal failure, hyperkalemia. Nephrology , Dr. Debbie Suggs was consulted. Vas-cath was placed and emergent dialysis was started with improvement of hyperkalemia and bradycardia. On 04/27/17, patient developed atrial fibrillation with RVR and was started on Amiodarone drip. Cardiology, Dr. Seals was consulted. Recommendations to wean off amiodarone and to start back on AV dilip blocking agents, continue fluid management and dialysis. 04/28/17, chest xray with questionable pneumothorax on the left with pulmonary edema/ effusions. Left pigtail catheter via ultrasound guidance was placed with immediate removal of 1200 cc straw colored pleural fluid. Dr. Debbie Suggs met with patient today regarding cardiorenal syndrome and ATN with continued deterioration of CHF/ edema now requiring chest tube. He told her that there is a strong possibility that she will require hemodialysis to live. She indicated she would like to explore other options including hospice. Palliative care was consulted to assist with further clarification of treatment goals and symptom management. She reports anxiety secondary to dyspnea. Has Xanax 0.25mg PO every 6 hours PRN anxiety. Has only one dose of PRN Xanax since admission, would benefit from regular use given dyspnea and related anxiety. She is dyspneic with minimal exertion, appears to worsen with conversation. On oxygen via NC. . . Function/Cognitive Trajectory Patient has had significant decline over the past year. She has lost 90 pounds. She has been chcf dependent and unable to care for herself. . Review of Systems Constitutional: COMPLAINS OF: Fatigue, Weight loss (90 pound weight loss. ), Change in appetite (decreased.) Respiratory: COMPLAINS OF: Shortness of breath Cardiovascular: COMPLAINS OF: Dyspnea on Exertion, Orthopnea Gastrointestinal: COMPLAINS OF: Anorexia Musculoskeletal: COMPLAINS OF: Decreased range of motion Hematologic/Lymphatics: COMPLAINS OF: Bruising Psychiatric: COMPLAINS OF: Anxiety Past Family Social History Coded Allergies: erythromycin base (Unverified Allergy, Unknown, 01/11/17) penicillin G (Unverified Allergy, Unknown, 01/11/17) Past Medical History Hypothyroidism Coronary artery disease status post stent placement in 2007 and coronary artery bypass graft 01 March 2016 Diastolic congestive heart failure with normal EF 65-70% Hyperlipidemia Arthritis Diabetes mellitus Atrial fibrillation on Xarelto Hypertension COPD on home oxygen 2.5L 24 hours a day GERD Anxiety/ Depression Recurrent pleural effusions with prior thoracotomy . Past Surgical History CABG 3 (February 2016) Gastric bypass (2009) Back surgery Bilateral cataract surgery Coronary stent placed (2007) Right thoracoscopic exploration with talc pleurodesis (December 20, 2016) . Reported Medications Reported Meds & Active Scripts Active Alprazolam 0.25 Mg Tab 0.25 Mg PO Q6H PRN [Ketoconazole 2% Cream] 15 APPLIC/15 GM Cr 1 Applic TOPICAL DAILY Acidophilus/l-Sporogenes (Lactobacillus Acidophilus) 35 Million Cell-25 Million Cell Tab 1 Tab PO TID Qc Milk of Magnesia (Magnesium Hydroxide) 400 Mg/5 Ml Arely 30 Ml PO Q12H PRN Lopressor (Metoprolol Tartrate) 50 Mg Tab 50 Mg PO Q12HR [Albuterol-Ipratropium Neb] 1 AMPULE Nebu 1 Ampule NEB Q2HR NEB PRN [Nystatin Liq] 5 ML Susp 5 Ml SWISH-SWAL QID Sulfamethoxazole-Trimethoprim 800-160 Mg Tab 1 Tab PO Q12HR Mirtazapine 15 Mg Tab 7.5 Mg PO HS 30 Days Xarelto (Rivaroxaban) 10 Mg Tab 20 Mg PO DAILY 30 Days Levemir Inj (Insulin Detemir) 1,000 unit/ 10 ML Vial 15 Units SQ HS [address] (Duloxetine HCl) 60 Mg Capdr 60 Mg PO DAILY 30 Days Trazodone (Trazodone HCl) 50 Mg Tab 50 Mg PO HS 30 Days Pantoprazole (Pantoprazole Sodium) 40 Mg Tab 40 Mg PO DAILY 30 Days Thera M Plus (Multivitamins/Minerals Therapeutic) 1 Tab 1 Tab PO DAILY 30 Days Aspirin Low Strength (Aspirin) 81 Mg Chew 81 Mg PO DAILY 30 Days Reported Lasix (Furosemide) 40 Mg Tab 40 Mg PO DAILY Losartan (Losartan Potassium) 50 Mg Tab 50 Mg PO DAILY Potassium Chloride ER (Potassium Chloride) 20 Meq Tab 20 Meq PO DAILY Hydralazine HCl 25 Mg Tablet 25 Mg PO Q8HR Ergocalciferol 50,000 Unit Cap 50,000 Units PO Q7D ON MONDAYS Atorvastatin (Atorvastatin Calcium) 80 Mg Tab 80 Mg PO HS Diltiazem (Diltiazem HCl) 90 Mg Tab 90 Mg PO QID Before meals and at bedtime Novolog Inj (Insulin Aspart) 1,000 Unit/10 Ml Vial 2-10 Units SQ ACHS Sliding Scale Valtrex (Valacyclovir HCl) 1 Gm Tab 1 Gm PO HS Cyanocobalamin Inj (Cyanocobalamin) 1,000 Mcg/Ml Inj 1,000 Mcg IM EVERY 2 WEEKS Levothyroxine (Levothyroxine Sodium) 150 Mcg Tab 150 Mcg PO DAILY@0600 Fenofibrate 160 Mg Tab 160 Mg PO HS . Current Medications Medications (Trade) Dose Ordered Sig/Seema Route Start Time Stop Time Status Last Admin (Xanax) 0.25 mg Q6H PRN PO 04/25/17 20:30 04/27/17 21:27 (Aspirin Chew) 81 mg DAILY PO 04/26/17 09:00 04/27/17 09:53 (Cymbalta Dr) 60 mg DAILY PO 04/26/17 09:00 04/28/17 11:09 (Lactinex) 1 tab TID PO 04/26/17 09:00 04/28/17 13:12 (Synthroid) 150 mcg DAILY@0600 PO 04/26/17 06:00 04/28/17 05:34 (Remeron) 7.5 mg HS PO 04/25/17 21:00 04/27/17 21:03 (Theragran M Tab) 1 tab DAILY PO 04/26/17 09:00 04/28/17 11:09 (Xarelto) 20 mg DAILY PO 04/26/17 09:00 Future Hold (Desyrel) 50 mg HS PO 04/25/17 21:00 04/27/17 21:03 (Valtrex) 1,000 mg HS PO 04/25/17 21:00 04/27/17 21:02 (Tricor) 145 mg HS PO 04/25/17 21:00 04/27/17 21:03 (NS Flush) 2 ml UNSCH PRN IV FLUSH 04/25/17 20:30 (NS Flush) 2 ml BID IV FLUSH 04/25/17 21:00 04/28/17 11:10 (Zofran Inj) 4 mg Q6H PRN IV PUSH 04/25/17 20:30 (Ambien) 5 mg HS PRN PO 04/25/17 20:30 (Duoneb Neb) 1 ampule Q2HR NEB PRN INH 04/25/17 20:30 Miscellaneous Information 1 Q361D XX 04/25/17 20:30 (Chlorhexidine 2% Cloth) 3 pack Taper DAILY@04 TOP 04/26/17 04:00 04/22/18 03:59 04/28/17 04:00 (Chlorhexidine 2% Cloth) 3 pack UNSCH PRN TOP 04/25/17 20:30 (Marium-Colace) 1 tab BID PO 04/25/17 21:00 04/28/17 11:09 (Milk Of Magnesia Liq) 30 ml Q12H PRN PO 04/25/17 20:30 (Senokot) 17.2 mg Q12H PRN PO 04/25/17 20:30 (Dulcolax Supp) 10 mg DAILY PRN RECTAL 04/25/17 20:30 (Lactulose Liq) 30 ml DAILY PRN PO 04/25/17 20:30 (fentaNYL INJ) 25 mcg Q1H PRN IV PUSH 04/25/17 20:45 (Heparin Inj) 5,000 units Q8HR SQ 04/26/17 22:00 04/28/17 05:34 Amiodarone HCl 450 mg/Dextrose 250 ml @ 33.33 mls/ hr Q7H31M PRN IV 04/27/17 06:00 04/28/17 02:37 (Lipitor) 80 mg HS PO 04/27/17 21:00 04/27/17 21:02 (Lopressor) 50 mg Q12HR PO 04/27/17 09:00 04/28/17 11:09 (Pepcid) 20 mg DAILY PO 04/27/17 11:00 04/28/17 11:09 (Lasix Inj) 20 mg DAILY IV PUSH 04/28/17 09:00 04/28/17 11:09 (Percocet 5-325 Mg) 1 tab Q6H PRN PO 04/28/17 13:00 04/28/17 13:12 (Tylenol) 650 mg Q6H PRN PO 04/28/17 13:00 Family History Father from myocardial infarction Mother from myocardial infarction Son committed suicide 2 years ago . Substance Use Tobacco:Quit smoking 30 years ago; smoked 3 ppd previously for 30 years. Alcohol: Occasional. Prescription med abuse: None reported. Illicits: None reported. . Psychosocial History Patient is originally from [place]. Parents . Patient has 1 brother (Valentin) who lives in [place], previously reported they have a "horrible" relationship. Patient was for 7 years and in 1972; she never remarried. She had one son (Mo) who committed suicide ~ 2 years ago when he was approximately 45 years old, they were very close. Patient recently moved to [place]. . Spiritual/Cultural Factors Judaism haley. . Living Will: Never completed Health Care Surrogate: Copy in medical record Durable Power of Investment Manager: Never completed Date completed: 09/14/16 . Health Care Surrogate(s): Designated Health Care Surrogate is Melody Pantoja (friend) [phone], copy scanned into EMR. . Documented care wishes: [place] Do Not Resuscitate Order previously signed on 11/24/16. . Today's verbally stated goals: Patient does not want further "heroic measures." Does not want to live on dialysis. She desires comfort focused care with hospice support. . Family/friends goals: Spoke with friend, Melody Pantoja (HCS) to provide medical update and that patient has elected to stop HD and focus on comfort. She supports patient decision for hospice care. . Ethical and Legal Issues Patient is currently capacitated to make her own health care decisions. Should she lose capacity she has designated her friend Melody Pantoja as HCS. . Physical Exam Vital Signs Date Time Temp Pulse Resp B/P (MAP) Pulse Ox O2 Delivery O2 Flow Rate FiO2 04/28/17 06:00 82 04/28/17 04:00 98.4 77 25 106/56 (73) 04/28/17 04:00 77 04/28/17 02:37 80 104/68 04/28/17 02:36 80 104/68 04/28/17 02:00 75 04/28/17 00:00 98.6 81 22 107/56 (73) 95 04/28/17 00:00 81 04/27/17 22:00 73 04/27/17 20:38 99 Nasal Cannula 4.00 04/27/17 20:00 98.3 85 24 139/74 (95) 100 04/27/17 20:00 85 04/27/17 18:00 94 25 127/79 (95) 90 04/27/17 18:00 94 04/27/17 17:30 93 21 118/72 (87) 98 04/27/17 17:00 92 25 116/77 (90) 97 04/27/17 16:30 84 21 118/71 (87) 98 04/27/17 16:00 82 04/27/17 16:00 82 22 117/68 (84) 97 04/27/17 15:50 99 28 111/62 (78) 94 04/27/17 15:50 99 04/27/17 15:00 83 24 94 04/27/17 14:00 92 Exam CONSTITUTIONAL/GENERAL: This is a chronically ill patient, in no apparent distress. TUBES/LINES/DRAINS: Oxygen via NC, left IJ vas cath, left pigtail chest tube, PIV, SCDs. SKIN: No jaundice, rashes, or lesions. Ecchymoses on upper extremities. No wounds seen anteriorly. Skin temperature appropriate. Not diaphoretic. HEAD: Atraumatic. Normocephalic. EYES: Pupils equal and round and reactive. Extraocular motions intact. No scleral icterus. No injection or drainage. Fundi not examined. ENT: Hearing grossly normal. Nose without bleeding or purulent drainage. Oral mucosa moist. NECK: Trachea midline. CARDIOVASCULAR: Irregularly irregular. RESPIRATORY/CHEST: Mildly labored respirations with conversation. Diminished on left. Chest tube in place. GASTROINTESTINAL: Abdomen soft, non-tender, nondistended. No guarding. Bowel sounds present. GENITOURINARY: Without palpable bladder distension. MUSCULOSKELETAL: Extremities with trace edema. No joint tenderness or effusion noted. No calf tenderness. No mottling or clubbing. LYMPHATICS: No palpable cervical or supraclavicular adenopathy. NEUROLOGICAL: Awake and alert. Generalized weakness noted. Follows commands. Cognitively sharp. Moves all extremities. PSYCHIATRIC: No obvious anxiety/depression. no apparent hallucinations or other psychotic thought process. . Diagnostic Tests Laboratory Laboratory Tests Test 04/25/17 18:40 04/25/17 19:50 04/25/17 20:45 04/25/17 22:30 Bedside Hemoglobin 10.5 G/DL (12.0-17.0) Bedside Hematocrit 31.0 % (38.0-51.0) Bedside Sodium 129 MMOL/L (138-146) Bedside Potassium 7.9 MMOL/L (3.5-4.9) Bedside Chloride 94 MMOL/L (98-109) Bedside Blood Urea Nitrogen 83 MG/DL (8-26) Bedside Creatinine 4.8 MG/DL (0.6-1.0) Bedside Glucose 146 MG/DL (60-95) White Blood Count 9.7 TH/MM3 (4.0-11.0) Red Blood Count 3.14 MIL/MM3 (4.00-5.30) Hemoglobin 9.2 GM/DL (11.6-15.3) Hematocrit 29.4 % (35.0-46.0) Mean Corpuscular Volume 93.8 FL (80.0-100.0) Mean Corpuscular Hemoglobin 29.4 PG (27.0-34.0) Mean Corpuscular Hemoglobin Concent 31.3 % (32.0-36.0) Red Cell Distribution Width 21.5 % (11.6-17.2) Platelet Count 530 TH/MM3 (150-450) Mean Platelet Volume 8.8 FL (7.0-11.0) Neutrophils (%) (Auto) 85.2 % (16.0-70.0) Lymphocytes (%) (Auto) 7.0 % (9.0-44.0) Monocytes (%) (Auto) 6.9 % (0.0-8.0) Eosinophils (%) (Auto) 0.4 % (0.0-4.0) Basophils (%) (Auto) 0.5 % (0.0-2.0) Neutrophils # (Auto) 8.3 TH/MM3 (1.8-7.7) Lymphocytes # (Auto) 0.7 TH/MM3 (1.0-4.8) Monocytes # (Auto) 0.7 TH/MM3 (0-0.9) Eosinophils # (Auto) 0.0 TH/MM3 (0-0.4) Basophils # (Auto) 0.1 TH/MM3 (0-0.2) CBC Comment DIFF FINAL Differential Comment Prothrombin Time 14.3 SEC (9.8-11.6) Prothromb Time International Ratio 1.3 RATIO Activated Partial Thromboplast Time 33.8 SEC (24.3-30.1) Blood Urea Nitrogen 84 MG/DL (7-18) Creatinine 4.99 MG/DL (0.50-1.00) Random Glucose 186 MG/DL (74-106) Total Protein 5.6 GM/DL (6.4-8.2) Albumin 2.3 GM/DL (3.4-5.0) Calcium Level 7.7 MG/DL (8.5-10.1) Alkaline Phosphatase 100 U/L (45-117) Aspartate Amino Transf (AST/SGOT) 44 U/L (15-37) Alanine Aminotransferase (ALT/SGPT) 16 U/L (10-53) Total Bilirubin 0.6 MG/DL (0.2-1.0) Sodium Level 134 MEQ/L (136-145) Potassium Level 6.5 MEQ/L (3.5-5.1) Chloride Level 95 MEQ/L (98-107) Carbon Dioxide Level 28.3 MEQ/L (21.0-32.0) Anion Gap 11 MEQ/L (5-15) Estimat Glomerular Filtration Rate 8 ML/MIN (>89) Total Creatine Kinase 54 U/L (26-192) Troponin I 0.07 NG/ML (0.02-0.05) Nasal Screen MRSA (PCR) MRSA DETECTED (NOT DETECT) Hepatitis A IgM Antibody NEGATIVE (NEGATIVE) Hepatitis B Surface Antigen NEGATIVE (NEGATIVE) Hepatitis B Core IgM Antibody NEGATIVE (NEGATIVE) Hepatitis C Antibody NEGATIVE (NEGATIVE) Test 04/26/17 00:53 04/26/17 04:03 04/26/17 04:04 04/27/17 07:30 Potassium Level 4.6 MEQ/L (3.5-5.1) 4.7 MEQ/L (3.5-5.1) 4.3 MEQ/L (3.5-5.1) Blood Urea Nitrogen 42 MG/DL (7-18) 42 MG/DL (7-18) Creatinine 2.67 MG/DL (0.50-1.00) 2.57 MG/DL (0.50-1.00) Random Glucose 92 MG/DL (74-106) 155 MG/DL (74-106) Total Protein 6.3 GM/DL (6.4-8.2) 5.9 GM/DL (6.4-8.2) Albumin 2.6 GM/DL (3.4-5.0) Calcium Level 7.3 MG/DL (8.5-10.1) 7.4 MG/DL (8.5-10.1) Phosphorus Level 4.2 MG/DL (2.5-4.9) 3.6 MG/DL (2.5-4.9) Magnesium Level 2.0 MG/DL (1.5-2.5) Alkaline Phosphatase 110 U/L (45-117) Aspartate Amino Transf (AST/SGOT) 56 U/L (15-37) Alanine Aminotransferase (ALT/SGPT) 29 U/L (10-53) Total Bilirubin 0.5 MG/DL (0.2-1.0) Sodium Level 136 MEQ/L (136-145) 136 MEQ/L (136-145) Chloride Level 98 MEQ/L (98-107) 102 MEQ/L (98-107) Carbon Dioxide Level 31.3 MEQ/L (21.0-32.0) 27.6 MEQ/L (21.0-32.0) Anion Gap 7 MEQ/L (5-15) 6 MEQ/L (5-15) Estimat Glomerular Filtration Rate 17 ML/MIN (>89) 18 ML/MIN (>89) Protein Corrected Calcium 7.7 MG/DL (8.5-10.1) 8.1 MG/DL (8.5-10.1) White Blood Count 8.1 TH/MM3 (4.0-11.0) 7.2 TH/MM3 (4.0-11.0) Red Blood Count 3.01 MIL/MM3 (4.00-5.30) 2.80 MIL/MM3 (4.00-5.30) Hemoglobin 9.0 GM/DL (11.6-15.3) 8.6 GM/DL (11.6-15.3) Hematocrit 28.1 % (35.0-46.0) 26.8 % (35.0-46.0) Mean Corpuscular Volume 93.4 FL (80.0-100.0) 95.5 FL (80.0-100.0) Mean Corpuscular Hemoglobin 30.0 PG (27.0-34.0) 30.8 PG (27.0-34.0) Mean Corpuscular Hemoglobin Concent 32.1 % (32.0-36.0) 32.2 % (32.0-36.0) Red Cell Distribution Width 21.7 % (11.6-17.2) 21.2 % (11.6-17.2) Platelet Count 360 TH/MM3 (150-450) 315 TH/MM3 (150-450) Mean Platelet Volume 8.2 FL (7.0-11.0) 8.1 FL (7.0-11.0) Neutrophils (%) (Auto) 92.0 % (16.0-70.0) 88.3 % (16.0-70.0) Lymphocytes (%) (Auto) 3.8 % (9.0-44.0) 5.1 % (9.0-44.0) Monocytes (%) (Auto) 3.7 % (0.0-8.0) 5.8 % (0.0-8.0) Eosinophils (%) (Auto) 0.1 % (0.0-4.0) 0.6 % (0.0-4.0) Basophils (%) (Auto) 0.4 % (0.0-2.0) 0.2 % (0.0-2.0) Neutrophils # (Auto) 7.5 TH/MM3 (1.8-7.7) 6.3 TH/MM3 (1.8-7.7) Lymphocytes # (Auto) 0.3 TH/MM3 (1.0-4.8) 0.4 TH/MM3 (1.0-4.8) Monocytes # (Auto) 0.3 TH/MM3 (0-0.9) 0.4 TH/MM3 (0-0.9) Eosinophils # (Auto) 0.0 TH/MM3 (0-0.4) 0.0 TH/MM3 (0-0.4) Basophils # (Auto) 0.0 TH/MM3 (0-0.2) 0.0 TH/MM3 (0-0.2) CBC Comment DIFF FINAL DIFF FINAL Differential Comment Test 04/28/17 05:53 04/28/17 05:59 White Blood Count 6.8 TH/MM3 (4.0-11.0) Red Blood Count 3.16 MIL/MM3 (4.00-5.30) Hemoglobin 9.4 GM/DL (11.6-15.3) Hematocrit 30.2 % (35.0-46.0) Mean Corpuscular Volume 95.4 FL (80.0-100.0) Mean Corpuscular Hemoglobin 29.8 PG (27.0-34.0) Mean Corpuscular Hemoglobin Concent 31.3 % (32.0-36.0) Red Cell Distribution Width 21.9 % (11.6-17.2) Platelet Count 374 TH/MM3 (150-450) Mean Platelet Volume 7.8 FL (7.0-11.0) Neutrophils (%) (Auto) 82.9 % (16.0-70.0) Lymphocytes (%) (Auto) 7.4 % (9.0-44.0) Monocytes (%) (Auto) 7.7 % (0.0-8.0) Eosinophils (%) (Auto) 0.9 % (0.0-4.0) Basophils (%) (Auto) 1.1 % (0.0-2.0) Neutrophils # (Auto) 5.7 TH/MM3 (1.8-7.7) Lymphocytes # (Auto) 0.5 TH/MM3 (1.0-4.8) Monocytes # (Auto) 0.5 TH/MM3 (0-0.9) Eosinophils # (Auto) 0.1 TH/MM3 (0-0.4) Basophils # (Auto) 0.1 TH/MM3 (0-0.2) CBC Comment DIFF FINAL Differential Comment Blood Urea Nitrogen 40 MG/DL (7-18) Creatinine 2.50 MG/DL (0.50-1.00) Random Glucose 138 MG/DL (74-106) Calcium Level 8.2 MG/DL (8.5-10.1) Sodium Level 137 MEQ/L (136-145) Potassium Level 4.7 MEQ/L (3.5-5.1) Chloride Level 101 MEQ/L (98-107) Carbon Dioxide Level 29.6 MEQ/L (21.0-32.0) Anion Gap 6 MEQ/L (5-15) Estimat Glomerular Filtration Rate 19 ML/MIN (>89) Result Diagram: 04/28/17 0553 04/28/17 0559 Imaging Last Impressions Chest X-Ray 04/28/17 0600 Signed Impressions: Service Date/Time: March 03:41 - CONCLUSION: 1. Enlargement cardiac silhouette. 2. Diffuse mixed interstitial lobular consolidation which appears worse. Slightly worsened worsening edema. 3. Lucency seen along the superior and lateral left upper chest. This could be related to skin fold. A pneumothorax cannot absolutely be excluded. A one could further evaluate this with a repeat chest x-ray repositioning the patient to insure there is no overlying skinfold on the left chest. one could also perform a right lateral decubitus image to further evaluate this region. This information was related to Deana, the patient's nurse, by telephone. Mango Sheth MD . Procedures * 04/28/17 - left pigtail catheter placed. * 04/25/17 - vas cath placed and HD started . Patient/Family Conference Present at Family Conference: Met with patient. Also present Brenda Peace LCSW. Family Conference Time (mins): 45 Family Conference Location: Bedside Issues Discussed: * Palliative care role, purpose, approach * Additional medical, psychosocial, and spiritual history * Patients general health, functional status, and cognitive changes in the months leading up to the current hospitalization * Patient/family understanding of the current medical problems * Patient/family understanding of prognosis - life expectancy days to weeks when HD stopped. * Patients goals of care * Current medical treatment options and benefits/burdens of those options * Likely scenarios comparing ongoing aggressive care with a transition to comfort measures only * Questions answered to the best of my ability .Patient desires comfort measures with hospice support. . Assessment and Plan Disease Oriented Problem List: (1) Acute renal failure (2) Hyperkalemia (3) Acute on chronic diastolic CHF (congestive heart failure) (4) DM (diabetes mellitus) (5) Generalized weakness (6) Atrial fibrillation Symptom Scale: (1) Dyspnea 0-10 Scale: Unable to quantify Comment: secondary to cardiorenal failure and COPD (oxygen dependent). . (2) Generalized weakness 0-10 Scale: Unable to quantify (3) Anxiety 0-10 Scale: Unable to quantify Comment: secondary to underlying cardiorenal failure, COPD (oxygen dependent), left pneumothorax, left pleural effusion s/p left pigtail catheter placement. , Pertinent Non-Medical Issues Psychosocial: Patient is originally from [place]. Patient has 1 brother ( Valentin) who lives in [place], previously reported having a "horrible" relationship. Patient was for 7 years and in 1972; she never remarried. She had one son (Mo) who committed suicide 2 years ago when he was approximately 45 years old. It was recently the second anniversary of his , and the patient states it has been very difficult. She was very close to her son. Patient recently moved to [place]. Spiritual: Judaism haley. Legal: None known. Ethical issues impacting care: None known. . Important Contacts * Melody Pantoja (friend/ HCS): [phone] . Prognosis Mrs. Garcia is a 76-year-old female with a medical history of oxygen dependent COPD, diabetes mellitus, recurrent pleural effusions requiring frequent thoracentesis, CAD, hypothyroidism, diastolic CHF with mitral regurgitation, atrial fibrillation, hypertension and depression. This is her 9th acute care hospitalization this year. She has now developed cardiorenal failure requiring emergent dialysis. She has opted for comfort measures with hospice support. Hospice appropriate. Prognosis days to weeks. . Code Status: No Code Plan * Decision Maker: Patient is currently capacitated to make her own health care decisions. Should she lose capacity she has designated her friend Melody Pantoja as HCS. * NO CODE * Palliative care met with patient: She tells me she "does not want to be kept alive by tubes and machines." She does not want anymore "heroic measures." She does not want dialysis. She desires comfort measures with hospice support. She would like to go home though does not have the support or means to have hired caregivers. She was at [facility] prior to admission, uncertain if they will be able to provide the level of care she now needs. I think chest tube will need to be left in place due to need for recurrent thoracentesis. She could go to [facility] for management of anxiety and dyspnea. Life expectancy days to weeks. Patient requests Hospice call [facility], Melody Pantoja if she is being DCd. * Hospice consulted, will meet with patient on 04/29/17 per patient request. * SYMPTOMS: Dyspnea: secondary to cardiorenal failure and COPD (oxygen dependent ). On oxygen via NC. Left chest tube placed today has drained 2000cc thus far. Anxiety: secondary to dyspnea. Has Xanax 0.25mg PO every 6 hours PRN anxiety. Has only one dose of PRN Xanax since admission, would benefit from regular use given dyspnea and related anxiety. * Palliative care number provided. * Palliative care will continue to follow throughout hospital course to assist with symptom management and clarification of goals as needed. . Thank you for the opportunity to participate in the care of Ms. Garcia. Attestation To help prompt me to consider important information that might be impacting today's encounter and assessment, information from prior notes written by myself or my colleagues may have been "brought forward" into today's note. My signature on this note, however, is an attestation that I personally performed the exam, history, and/or decision-making noted today, and, unless otherwise indicated, the interactions with patient, family, and staff as well as the review of records all occurred today. I also attest that the listed assessment and stated plan reflect my best clinical judgment today based on the combination of historical information, prior notes, and today's exam/ interactions. When time spent is documented, it refers only to time spent today by the signer, or if indicated, combined time spent today by collaborating physician/nurse practitioner. Rachelle Heller Apr 28, 2017 14:37
--- NOTE | 2017-04-28 16:47 | PD.PROCEDR ---
Procedure Note Procedure Procedure: Pigtail catheter placement site: Left pleural cavity Preop diagnosis: Suspected pneumothorax, left pleural effusion Postop diagnosis: Same Informed consent: Obtained from patient and documented on chart. Anesthesia used: 1% lidocaine for local infiltration anesthesia Procedure: After sterile prepping and draping using 1% lidocaine for local infiltration anesthesia, introducer Angiocath was used to enter [] pleural cavity between second and third intercostal space in anterior axillary line. Pleural cavity was entered as evidenced by return of air bubbles. A guidewire was passed through Angiocath without any resistance following which Angiocath was removed. 10 Bulgarian pigtail catheter was advanced over the guidewire into the right pleural cavity following which guidewire and stiffener were removed. Pigtail catheter was connected to Pleur-evac VAC with a connector. Pigtail catheter was sutured in place as well as secured with stayfix. Positive air leak noted in Pleur-evac Postprocedure chest x-ray was ordered. Patient tolerated procedure well with no immediate complications noted. Rashawn Somers MD Apr 28, 2017 16:47
[2017-04-28] MEDS: traZODone HCL 50 MG TAB PO SCH (21:12)
[2017-04-28] MEDS: MIRTAZAPINE 15 MG TAB PO SCH (21:13)
[2017-04-28] MEDS: ALPRAZolam 0.25 MG TAB PO PRN (21:13)
[2017-04-28] MEDS: FENOFIBRATE 145 MG TAB PO SCH (21:13)
[2017-04-28] MEDS: valACYclovir HCL 500 MG TAB PO SCH (21:13)
[2017-04-28] MEDS: ATORVASTATIN 80 MG TAB PO SCH (21:16)
--- NOTE | 2017-04-28 21:33 | PD.CARD.PN ---
Subjective Subjective Remarks Chest tube placed for pneumothorax Overall patient is tired Amio drip off Objective Medications Current Medications Medications (Trade) Dose Ordered Sig/Seema Route Start Time Stop Time Status Last Admin (Xanax) 0.25 mg Q6H PRN PO 04/25/17 20:30 04/28/17 21:13 (Aspirin Chew) 81 mg DAILY PO 04/26/17 09:00 04/27/17 09:53 (Cymbalta Dr) 60 mg DAILY PO 04/26/17 09:00 04/28/17 11:09 (Lactinex) 1 tab TID PO 04/26/17 09:00 04/28/17 18:00 (Synthroid) 150 mcg DAILY@0600 PO 04/26/17 06:00 04/28/17 05:34 (Remeron) 7.5 mg HS PO 04/25/17 21:00 04/28/17 21:13 (Theragran M Tab) 1 tab DAILY PO 04/26/17 09:00 04/28/17 11:09 (Xarelto) 20 mg DAILY PO 04/26/17 09:00 Future Hold (Desyrel) 50 mg HS PO 04/25/17 21:00 04/28/17 21:12 (Valtrex) 1,000 mg HS PO 04/25/17 21:00 04/28/17 21:13 (Tricor) 145 mg HS PO 04/25/17 21:00 04/28/17 21:13 (NS Flush) 2 ml UNSCH PRN IV FLUSH 04/25/17 20:30 (NS Flush) 2 ml BID IV FLUSH 04/25/17 21:00 04/28/17 21:12 (Zofran Inj) 4 mg Q6H PRN IV PUSH 04/25/17 20:30 (Ambien) 5 mg HS PRN PO 04/25/17 20:30 (Duoneb Neb) 1 ampule Q2HR NEB PRN INH 04/25/17 20:30 Miscellaneous Information 1 Q361D XX 04/25/17 20:30 (Chlorhexidine 2% Cloth) 3 pack Taper DAILY@04 TOP 04/26/17 04:00 04/22/18 03:59 04/28/17 04:00 (Chlorhexidine 2% Cloth) 3 pack UNSCH PRN TOP 04/25/17 20:30 (Marium-Colace) 1 tab BID PO 04/25/17 21:00 04/28/17 21:13 (Milk Of Magnesia Liq) 30 ml Q12H PRN PO 04/25/17 20:30 (Senokot) 17.2 mg Q12H PRN PO 04/25/17 20:30 (Dulcolax Supp) 10 mg DAILY PRN RECTAL 04/25/17 20:30 (Lactulose Liq) 30 ml DAILY PRN PO 04/25/17 20:30 (fentaNYL INJ) 25 mcg Q1H PRN IV PUSH 04/25/17 20:45 (Heparin Inj) 5,000 units Q8HR SQ 04/26/17 22:00 04/28/17 21:13 Amiodarone HCl 450 mg/Dextrose 250 ml @ 33.33 mls/ hr Q7H31M PRN IV 04/27/17 06:00 04/28/17 02:37 (Lipitor) 80 mg HS PO 04/27/17 21:00 04/28/17 21:16 (Lopressor) 50 mg Q12HR PO 04/27/17 09:00 04/28/17 21:13 (Pepcid) 20 mg DAILY PO 04/27/17 11:00 04/28/17 11:09 (Lasix Inj) 20 mg DAILY IV PUSH 04/28/17 09:00 04/28/17 11:09 (Percocet 5-325 Mg) 1 tab Q6H PRN PO 04/28/17 13:00 04/28/17 13:12 (Tylenol) 650 mg Q6H PRN PO 04/28/17 13:00 Vital Signs / I&O Vital Signs Date Time Temp Pulse Resp B/P (MAP) Pulse Ox O2 Delivery O2 Flow Rate FiO2 04/28/17 20:18 96 Nasal Cannula 3.00 04/28/17 18:00 90 18 118/88 (98) 97 04/28/17 18:00 90 04/28/17 17:31 84 04/28/17 17:31 84 18 136/61 (86) 97 04/28/17 17:00 88 04/28/17 17:00 88 22 109/73 (85) 100 04/28/17 16:30 91 04/28/17 16:30 91 18 121/66 (84) 98 04/28/17 16:00 86 17 120/64 (82) 100 04/28/17 16:00 86 04/28/17 15:30 78 23 113/74 (87) 100 04/28/17 15:30 78 04/28/17 15:00 86 04/28/17 15:00 86 20 118/70 (86) 98 04/28/17 15:00 86 20 118/70 (86) 98 04/28/17 14:30 81 6 124/65 (84) 99 04/28/17 14:30 81 6 124/65 (84) 99 04/28/17 14:30 81 04/28/17 14:21 85 20 115/61 (79) 97 04/28/17 14:21 85 04/28/17 14:21 85 20 115/61 (79) 97 04/28/17 14:00 81 04/28/17 14:00 81 23 98 04/28/17 14:00 81 23 98 04/28/17 13:30 79 20 109/65 (80) 100 04/28/17 13:30 79 04/28/17 13:00 87 04/28/17 13:00 87 21 118/62 (80) 99 04/28/17 12:30 81 04/28/17 12:30 81 20 110/69 (83) 96 04/28/17 12:00 84 04/28/17 12:00 84 24 122/62 (82) 72 04/28/17 11:30 84 04/28/17 11:30 84 27 113/76 (88) 96 04/28/17 11:00 92 10 125/74 (91) 99 04/28/17 11:00 92 04/28/17 10:30 88 25 124/78 (93) 83 04/28/17 10:30 88 04/28/17 10:00 84 04/28/17 10:00 84 26 122/60 (80) 93 04/28/17 09:30 82 21 118/62 (80) 96 04/28/17 09:30 82 04/28/17 09:02 87 29 115/68 (84) 81 04/28/17 09:02 87 04/28/17 08:30 80 19 124/76 (92) 94 04/28/17 08:30 80 04/28/17 08:00 85 13 127/63 (84) 81 04/28/17 08:00 98 Nasal Cannula 3.00 04/28/17 08:00 85 04/28/17 06:00 82 04/28/17 04:00 98.4 77 25 106/56 (73) 04/28/17 04:00 77 04/28/17 02:37 80 104/68 04/28/17 02:36 80 104/68 04/28/17 02:00 75 04/28/17 00:00 98.6 81 22 107/56 (73) 95 04/28/17 00:00 81 04/27/17 22:00 73 I/O 04/27/17 04/27/17 04/27/17 04/28/17 04/28/17 04/28/17 07:00 15:00 23:00 07:00 15:00 23:00 Intake Total 620 ml 420 ml 932 ml 297 ml 320 ml Output Total 150 ml 1100 ml 300 ml 1500 ml Balance 470 ml 420 ml -168 ml -3 ml -1180 ml Intake Oral 620 ml 670 ml 320 ml IV Total 420 ml 262 ml 297 ml Output Urine Total 150 ml 1100 ml 300 ml 500 ml Chest Tube Drainage Total 1000 ml # Voids 2 # Bowel Movements 0 0 Physical Exam GENERAL: NAD, AAOx3 SKIN: Warm and dry. HEAD: Atraumatic. Normocephalic. EYES: Pupils equal and round. No scleral icterus. No injection or drainage. ENT: No nasal bleeding or discharge. Mucous membranes pink and moist. NECK: Trachea midline. No JVD. CARDIOVASCULAR: Irregularly irregular RESPIRATORY: No accessory muscle use. Decreased breath sounds bilaterally GASTROINTESTINAL: Abdomen soft, non-tender, nondistended. Hepatic and splenic margins not palpable. MUSCULOSKELETAL: Extremities without clubbing, cyanosis, or edema. No obvious deformities. NEUROLOGICAL: Awake and alert. No obvious cranial nerve deficits. Motor grossly within normal limits. Five out of 5 muscle strength in the arms and legs. Normal speech. PSYCHIATRIC: Appropriate mood and affect; insight and judgment normal. Laboratory Laboratory Tests Test 04/28/17 05:53 04/28/17 05:59 White Blood Count 6.8 TH/MM3 Red Blood Count 3.16 MIL/MM3 Hemoglobin 9.4 GM/DL Hematocrit 30.2 % Mean Corpuscular Volume 95.4 FL Mean Corpuscular Hemoglobin 29.8 PG Mean Corpuscular Hemoglobin Concent 31.3 % Red Cell Distribution Width 21.9 % Platelet Count 374 TH/MM3 Mean Platelet Volume 7.8 FL Neutrophils (%) (Auto) 82.9 % Lymphocytes (%) (Auto) 7.4 % Monocytes (%) (Auto) 7.7 % Eosinophils (%) (Auto) 0.9 % Basophils (%) (Auto) 1.1 % Neutrophils # (Auto) 5.7 TH/MM3 Lymphocytes # (Auto) 0.5 TH/MM3 Monocytes # (Auto) 0.5 TH/MM3 Eosinophils # (Auto) 0.1 TH/MM3 Basophils # (Auto) 0.1 TH/MM3 CBC Comment DIFF FINAL Differential Comment Blood Urea Nitrogen 40 MG/DL Creatinine 2.50 MG/DL Random Glucose 138 MG/DL Calcium Level 8.2 MG/DL Sodium Level 137 MEQ/L Potassium Level 4.7 MEQ/L Chloride Level 101 MEQ/L Carbon Dioxide Level 29.6 MEQ/L Anion Gap 6 MEQ/L Estimat Glomerular Filtration Rate 19 ML/MIN Imaging Last 24 hours Impressions Chest X-Ray 04/28/17 0600 Signed Impressions: Service Date/Time: March 03:41 - CONCLUSION: 1. Enlargement cardiac silhouette. 2. Diffuse mixed interstitial lobular consolidation which appears worse. Slightly worsened worsening edema. 3. Lucency seen along the superior and lateral left upper chest. This could be related to skin fold. A pneumothorax cannot absolutely be excluded. A one could further evaluate this with a repeat chest x-ray repositioning the patient to insure there is no overlying skinfold on the left chest. one could also perform a right lateral decubitus image to further evaluate this region. This information was related to Deana, the patient's nurse, by telephone. Mango Sheth MD Chest X-Ray 04/28/17 0000 Signed Impressions: Service Date/Time: March 10:26 - CONCLUSION: 1. Interval placement of small bore left-sided chest tube with apparent small apical left pneumothorax. 2. Marked cardiomegaly and bilateral infiltrates remain. 3. Apparent slight decrease in left effusion. Bilateral pleural effusions remain. Nadir Hansen MD Chest X-Ray 04/28/17 0000 Signed Impressions: Service Date/Time: March 09:02 - CONCLUSION: 1. Mild interval improvement in bilateral pulmonary infiltrates most consistent with improving pulmonary edema. 2. Marked cardiomegaly again noted with bilateral effusions. Nadir Hansen MD Assessment and Plan Problem List: (1) Dyspnea ICD Codes: R06.00 - Dyspnea, unspecified Status: Acute (2) Generalized weakness ICD Codes: R53.1 - Weakness Status: Acute (3) Anxiety ICD Codes: F41.9 - Anxiety disorder, unspecified (4) Atrial fibrillation ICD Codes: I48.91 - Unspecified atrial fibrillation Status: Chronic (5) Hyperkalemia ICD Codes: E87.5 - Hyperkalemia Status: Resolved (6) Acute on chronic diastolic CHF (congestive heart failure) ICD Codes: I50.33 - Acute on chronic diastolic (congestive) heart failure Status: Resolved (7) DM (diabetes mellitus) ICD Codes: E11.9 - Type 2 diabetes mellitus without complications Status: Chronic (8) Anemia ICD Codes: D64.9 - Anemia, unspecified Status: Acute (9) Bilateral pleural effusion ICD Codes: J90 - Pleural effusion, not elsewhere classified Status: Acute Assessment and Plan 1) Afib currently controlled on PO meds 2) Bradycardia resolved once hyperkalemia resolved 3) Con't Lasix 4) ASA for Afib No Xarelto due to chest tube serosanginous 5) Patient planning on seeing Hospice and states she is going to go on Hospice Will see PRN, call with questions Yung Seals DO Apr 28, 2017 21:33
[2017-04-29] VITALS (18 sets, daily range): BP systolic 90–116; BP diastolic 53–68; PULSE 78–94; RESP 3–27; TEMP 98.2–98.9; O2SAT 80–100
--- NOTE | 2017-04-29 03:40 | RADRPT ---
EXAM DATE/TIME: 04/29/2017 02:29 [facility] COMPARISON: CHEST SINGLE AP, April 28, 2017, 10:26. INDICATIONS : Evaluate for pneumothorax MEDICAL HISTORY : Cardiovascular disease. Congestive heart failure. Hypertension. SURGICAL HISTORY : CABG. ENCOUNTER: Subsequent ACUITY: 4 - 6 days PAIN SCORE: Non-responsive. LOCATION: Bilateral chest FINDINGS: Portable AP view of the chest demonstrates stable enlargement of the cardiac silhouette in this patie nt post median sternotomy. A left IJ central line distal tip remains at the cavoatrial junction. Ther e is a left chest tube located peripherally in the left mid hemithorax. No definite left pneumothorax is identified. There are stable bibasilar airspace opacities with blunting of the costophrenic sulci . CONCLUSION: 1. Left chest tube is present and no pneumothorax is identified. 2. Improved aeration at the lung bases with residual airspace opacity present in a pattern suggesting pulmonary edema. There are small bilateral pleural effusions. 3. Stable enlargement of the cardiac silhouette. Mango Hou MD on April 29, 2017 at 3:36 Board Certified Radiologist. This report was verified electronically.
[2017-04-29] MEDS: CHLORHEXIDINE GLUCONATE 2 % 1 PACK (2 CLOTHS) TOP SCH (04:00)
[2017-04-29 04:27] LABS: BASOPHIL % 0.6 % (0.0-2.0); EOSINOPHIL % 0.6 % (0.0-4.0); HEMATOCRIT 29.4 % (35.0-46.0); HEMO FLAGS DIFF FINAL; LYMPH % 5.1 % (9.0-44.0); LYMPHOCYTE # 0.4 TH/MM3 (1.0-4.8); MEAN CELL VOLUME 95.2 FL (80.0-100.0); MEAN CORPUSCULAR HEMOGLOBIN 30.3 PG (27.0-34.0); MEAN CORPUSCULAR HGB CONC 31.8 % (32.0-36.0); MONO % 4.9 % (0.0-8.0); NEUT % 88.8 % (16.0-70.0); PLATELET COUNT 346 TH/MM3 (150-450); RED BLOOD COUNT 3.08 MIL/MM3 (4.00-5.30); WHITE BLOOD COUNT 7.8 TH/MM3 (4.0-11.0)
[2017-04-29 04:55] LABS: BICARBONATE 29.5 MEQ/L (21.0-32.0); MAGNESIUM 1.8 MG/DL (1.5-2.5); POTASSIUM 4.4 MEQ/L (3.5-5.1)
[2017-04-29] MEDS: LEVOTHYROXINE SODIUM 150 MCG TAB PO SCH (05:46)
[2017-04-29] MEDS: HEPARIN SODIUM - SQ 10,000 UNITS/ML VIAL SQ SCH ×2 (05:47→14:00)
[2017-04-29] MEDS: oxyCODONE/ACETAMINOPHEN 5 MG/325 MG TAB PO PRN ×2 (05:47→15:21)
[2017-04-29] MEDS: METOPROLOL TARTRATE 50 MG TAB PO SCH (09:00)
[2017-04-29] MEDS: LACTOBACILLUS ACIDOPHILUS TAB PO SCH ×2 (09:37→13:28)
[2017-04-29] MEDS: DULoxetine HCl DR 60 MG CAP PO SCH (09:37)
[2017-04-29] MEDS: DOCUSATE SODIUM 50 MG/SENNA 8.6 MG TAB PO SCH (09:37)
[2017-04-29] MEDS: MULTIVITAMINS/MINERALS THERAPEUTIC TAB PO SCH (09:37)
[2017-04-29] MEDS: ASPIRIN 81 MG CHEW TAB PO SCH (09:37)
[2017-04-29] MEDS: FAMOTIDINE 20 MG TAB PO SCH (09:37)
[2017-04-29] MEDS: FUROSEMIDE 20 MG/2 ML VIAL IV PUSH SCH (09:38)
[2017-04-29] MEDS: SODIUM CHLORIDE 0.9% FLUSH 10 ML FLUSH IV FLUSH SCH (09:38)
--- NOTE | 2017-04-29 13:35 | HHI.NPPN ---
Subjective History of Present Illness 76 year old female with ARF Hyperkalemia bradycardia had emergent dialysis for hyperkalemia Additional Remarks Has left thoracenteses and chest tube due to the pneumothorax Review of Systems General Constitutional: Fatigue Respiratory Lungs: SOB Cardiovascular Cardiac: Edema, GAINES Musculoskeletal MS: Swelling in Joint Objective Data Data Vital Signs Date Time Temp Pulse Resp B/P (MAP) Pulse Ox O2 Delivery O2 Flow Rate FiO2 04/29/17 11:30 88 11 97/60 (72) 04/29/17 11:30 88 04/29/17 11:00 86 04/29/17 11:00 86 10 99/68 (78) 04/29/17 10:30 84 04/29/17 10:30 84 18 104/56 (72) 04/29/17 10:00 86 04/29/17 10:00 86 16 116/63 (80) 04/29/17 09:30 82 04/29/17 09:30 82 18 98/53 (68) 04/29/17 09:00 84 7 94/54 (67) 04/29/17 09:00 84 04/29/17 08:30 78 04/29/17 08:30 78 9 90/53 (65) 82 04/29/17 08:00 81 9 111/57 (75) 80 04/29/17 08:00 81 04/29/17 06:00 82 04/29/17 04:00 80 04/29/17 04:00 98.3 80 18 102/55 (71) 100 04/29/17 02:00 78 04/29/17 00:00 84 04/29/17 00:00 98.2 84 23 107/58 (74) 87 04/28/17 22:00 84 04/28/17 20:18 96 Nasal Cannula 3.00 04/28/17 20:00 84 04/28/17 20:00 98.3 84 24 145/74 (97) 94 04/28/17 18:00 90 18 118/88 (98) 97 04/28/17 18:00 90 04/28/17 17:31 84 04/28/17 17:31 84 18 136/61 (86) 97 04/28/17 17:00 88 04/28/17 17:00 88 22 109/73 (85) 100 04/28/17 16:30 91 04/28/17 16:30 91 18 121/66 (84) 98 04/28/17 16:00 86 17 120/64 (82) 100 04/28/17 16:00 86 04/28/17 15:30 78 23 113/74 (87) 100 04/28/17 15:30 78 04/28/17 15:00 86 04/28/17 15:00 86 20 118/70 (86) 98 04/28/17 15:00 86 20 118/70 (86) 98 04/28/17 14:30 81 6 124/65 (84) 99 04/28/17 14:30 81 6 124/65 (84) 99 04/28/17 14:30 81 04/28/17 14:21 85 20 115/61 (79) 97 04/28/17 14:21 85 04/28/17 14:21 85 20 115/61 (79) 97 04/28/17 14:00 81 04/28/17 14:00 81 23 98 04/28/17 14:00 81 23 98 -: 04/29/17 0400 04/29/17 0400 Physical Exam General Appearance: Well Developed Eyes Eye Exam: Pupils Equal Throat Throat Exam: Oral Mucosa [place] & Moist Neck Neck Exam: Neck Supple Pulmonary Resp Exam: Crackles, Decreased Bases Cardiology CV Exam: Arrhythmia Gastrointestinal/Abdomen GI Exam: Soft, Non-Tender, Bowel Sounds Present Extremeties Extremities Exam: Moderate Edema, Pitting Edema Assessment/Plan Problem List: (1) Hyperkalemia ICD Codes: E87.5 - Hyperkalemia Status: Resolved Plan: . resolved (2) Acute renal failure ICD Codes: N17.9 - Acute kidney failure, unspecified Status: Acute Plan: Patient has history of cardiorenal syndrome and currently ATN is suspected she she was told that her condition is again deteriorating and congestive heart failure with chest tube is in place now she has pneumothorax edema is getting worse she wants tyo discuss with hospice refused dialysis will follow as needed (3) Hypotension ICD Codes: I95.9 - Hypotension, unspecified Status: Acute Plan: Due to cardiogenic shock (4) Acute on chronic diastolic CHF (congestive heart failure) ICD Codes: I50.33 - Acute on chronic diastolic (congestive) heart failure Status: Resolved Plan: Patient has a history of mitral regurgitation (5) DM (diabetes mellitus) ICD Codes: E11.9 - Type 2 diabetes mellitus without complications Status: Chronic Plan: Follow blood glucose Problem Qualifiers (1) Acute renal failure: Qualified Codes: N17.0 - Acute kidney failure with tubular necrosis Tammie Suggs MD Apr 29, 2017 13:35
--- NOTE | 2017-04-29 18:25 | HHI.DS ---
Discharge Summary Admission Date Apr 25, 2017 at 19:58 Admitting Diagnosis acute renal failure, hyperkalemia, hyponatremia, bradycardia, hypote Brief History 76-year-old female with history coronary artery disease, CHF/diastolic dysfunction, cardiomegaly, chronic renal insufficiency who presents from the half-way with a potassium level of 8.9 and significant bradycardia The patient states she's been feeling not well the last 3-4 days. Apparently there was blood work drawn and showed a potassium of 8.9. When paramedics arrived they found the patient to be with a heart rate in the low 20s. They started transcutaneous pacing at that time. She is complaining of no chest pain, chest pressure. There is no reported shortness of breath. CBC/BMP: 04/29/17 0400 04/29/17 0400 Significant Findings Laboratory Tests Test 04/27/17 07:30 04/28/17 05:53 04/28/17 05:59 04/29/17 04:00 Red Blood Count 2.80 MIL/MM3 (4.00-5.30) 3.16 MIL/MM3 (4.00-5.30) 3.08 MIL/MM3 (4.00-5.30) Hemoglobin 8.6 GM/DL (11.6-15.3) 9.4 GM/DL (11.6-15.3) 9.3 GM/DL (11.6-15.3) Hematocrit 26.8 % (35.0-46.0) 30.2 % (35.0-46.0) 29.4 % (35.0-46.0) Red Cell Distribution Width 21.2 % (11.6-17.2) 21.9 % (11.6-17.2) 21.0 % (11.6-17.2) Neutrophils (%) (Auto) 88.3 % (16.0-70.0) 82.9 % (16.0-70.0) 88.8 % (16.0-70.0) Lymphocytes (%) (Auto) 5.1 % (9.0-44.0) 7.4 % (9.0-44.0) 5.1 % (9.0-44.0) Lymphocytes # (Auto) 0.4 TH/MM3 (1.0-4.8) 0.5 TH/MM3 (1.0-4.8) 0.4 TH/MM3 (1.0-4.8) Blood Urea Nitrogen 42 MG/DL (7-18) 40 MG/DL (7-18) 44 MG/DL (7-18) Creatinine 2.57 MG/DL (0.50-1.00) 2.50 MG/DL (0.50-1.00) 2.40 MG/DL (0.50-1.00) Random Glucose 155 MG/DL (74-106) 138 MG/DL (74-106) Total Protein 5.9 GM/DL (6.4-8.2) Calcium Level 7.4 MG/DL (8.5-10.1) 8.2 MG/DL (8.5-10.1) 8.1 MG/DL (8.5-10.1) Estimat Glomerular Filtration Rate 18 ML/MIN (>89) 19 ML/MIN (>89) 20 ML/MIN (>89) Protein Corrected Calcium 8.1 MG/DL (8.5-10.1) Mean Corpuscular Hemoglobin Concent 31.3 % (32.0-36.0) 31.8 % (32.0-36.0) Imaging Last Impressions Chest X-Ray 04/29/17 0600 Signed Impressions: Service Date/Time: Saturday, April 29, 2017 02:29 - CONCLUSION: 1. Left chest tube is present and no pneumothorax is identified. 2. Improved aeration at the lung bases with residual airspace opacity present in a pattern suggesting pulmonary edema. There are small bilateral pleural effusions. 3. Stable enlargement of the cardiac silhouette. Mango Hou MD PE at Discharge GENERAL: Elderly-appearing female sitting up in bed not in any acute distress. SKIN: Warm and dry. HEAD: Normocephalic. EYES: No scleral icterus. No injection or drainage. NECK: Supple, trachea midline. No JVD or lymphadenopathy. CARDIOVASCULAR: S1-S2 irregularly irregular without murmurs, gallops, or rubs. RESPIRATORY: Breath sounds equal bilaterally. No accessory muscle use. Left pigtail catheter in place, no air leak noted. 3.1 L pleural fluid drained in last 24 hours GASTROINTESTINAL: Abdomen soft, non-tender, nondistended. MUSCULOSKELETAL: No cyanosis, or edema. BACK: Nontender without obvious deformity. NEURO EXAM: Awake alert oriented 3, nonfocal grossly Hospital Course 04/25: 76-year-old female with history coronary artery disease, CHF/diastolic dysfunction, cardiomegaly, chronic renal insufficiency who presents from the half-way with a potassium level of 8.9 and significant bradycardia The patient states she's been feeling not well the last 3-4 days. Apparently there was blood work drawn and showed a potassium of 8.9. When paramedics arrived they found the patient to be with a heart rate in the low 20s. They started transcutaneous pacing at that time. She is complaining of no chest pain, chest pressure. There is no reported shortness of breath. 04/26: Emergent dialysis last night with improvement in hyperkalemia and bradycardia. This morning is awake and alert. Not in any acute distress. 04/27: Patient went into A. fib last night. Was started on amiodarone drip. Patient denies any chest pain shortness of breath currently which is worse than her usual or palpitations. Denies any dizziness currently. She is making urine. 04/28: Remains on nasal cannula. Breathing about the same. Has some shortness of breath. Chest x-ray from this morning had a question of pneumothorax on the left with pulmonary edema/effusions. After obtaining informed consent I placed her left pigtail catheter with ultrasound guidance which was placed to -40 cm water pressure. Positive air leak and drained about 1200 cc of straw-colored pleural fluid immediately after placement. Acute kidney injury - Severe hyperkalemia - Over diuresed dehydrated -Underwent Emergent hemodialysis - Insulin glucose sodium bicarbonate and calcium gluconate 1 - Further per nephrology Bradycardia/ hypotension - Due to hyperkalemia, resolved after dialysis - Telemetry - Dialysis CHF/diastolic dysfunction - Blood pressure control - diurese with lasix. Atrial fibrillation -Hold Xarelto in view of acute kidney injury. We'll discuss with nephrology regarding continuing Xarelto versus switching anticoagulant depending on renal recovery -Resumed metoprolol as patient went into A. fib with heart rate 100s on amiodarone drip currently. If blood pressure tolerates will resume diltiazem. Cardiology consulted to follow-up - patient states Dr. Azul sees her for Dr. Cardona now. Pt. seen by Dr. Seals Anxiety/Depression - Cymbalta - Trazodone DVT GI prophylaxis - Teds SCDs - Xarelto on hold currently. We will initiate heparin 5000 units subcutaneously every 8 hourly on 04/27 - Pepcid COPD Left pneumothorax (on CXR 04/28) left pleural effusion -Placed left pigtail catheter on 04/28 with drainage of 1 L of pleural fluid almost immediately and 1+ positive air leak. - DuoNeb scheduled and when necessary History of CVA - Aspirin - Atorvastatin - Xarelto on hold currently, resume if renal function improves if OK with Nephrology. Patient subsequently decided to go for hospice and became DNR status. Vas-Cath removed. Patient being discharged to hospice facility with pigtail catheter in place on 04/29/2017. Pt Condition on Discharge: Guarded Discharge Disposition: Hospice/Med Facility Discharge Instructions DIET: Follow Instructions for: Heart Healthy Diet Activities you can perform: Continue Rashawn Hartman MD Apr 29, 2017 18:25
== END 2017-04-29 16:45 | disposition hospice, inpatient (51) | DRG 682 ==
LOC: NEPE 18:28 → NEDA 19:58 → HIME 20:30
PROVIDERS: ADMIT Internal Medicine Critical Care Medicine; ATTEND Internal Medicine Critical Care Medicine
PROC: 5A1D70Z Performance of Urinary Filtration, Intermittent, Less than 6 Hours Per Day (ICD-10-PCS; principal; 2017-04-26)
PROC: 05HN33Z Insertion of Infusion Device into Left Internal Jugular Vein, Percutaneous Approach (ICD-10-PCS; 2017-04-26)
PROC: 0W9B30Z Drainage of Left Pleural Cavity with Drainage Device, Percutaneous Approach (ICD-10-PCS; 2017-04-28)
DX: N17.0 Acute kidney failure with tubular necrosis (principal); I50.33 Acute on chronic diastolic (congestive) heart failure; R57.0 Cardiogenic shock; J91.8 Pleural effusion in other conditions classified elsewhere; I48.91 Unspecified atrial fibrillation; R00.1 Bradycardia, unspecified; E11.22 Type 2 diabetes mellitus with diabetic chronic kidney disease; E87.1 Hypo-osmolality and hyponatremia; E86.0 Dehydration; I13.0 Hypertensive heart and chronic kidney disease with heart failure and stage 1 through stage 4 chronic kidney disease, or unspecified chronic kidney disease; J93.9 Pneumothorax, unspecified; Z99.81 Dependence on supplemental oxygen; E87.5 Hyperkalemia; D64.9 Anemia, unspecified; I25.10 Atherosclerotic heart disease of native coronary artery without angina pectoris; F32.9 Major depressive disorder, single episode, unspecified; Z51.5 Encounter for palliative care; E78.5 Hyperlipidemia, unspecified; J44.9 Chronic obstructive pulmonary disease, unspecified; K21.9 Gastro-esophageal reflux disease without esophagitis; E03.9 Hypothyroidism, unspecified; I34.0 Nonrheumatic mitral (valve) insufficiency; Z66 Do not resuscitate; F06.4 Anxiety disorder due to known physiological condition; H91.90 Unspecified hearing loss, unspecified ear; N18.9 Chronic kidney disease, unspecified; M19.90 Unspecified osteoarthritis, unspecified site; Z86.73 Personal history of transient ischemic attack (TIA), and cerebral infarction without residual deficits; Z87.891 Personal history of nicotine dependence; Z79.01 Long term (current) use of anticoagulants; Z95.1 Presence of aortocoronary bypass graft; Z98.84 Bariatric surgery status; Z95.5 Presence of coronary angioplasty implant and graft
CPT/HCPCS: 32551; 71010; 76937; 80048; 80053; 80074; 82550; 82565; 83735; 84100; 84132; 84155; 84484; 85025; 85610; 85730; 87641; 90935; 93005; 96374; 96375; J0282; J0610; J1580; J1644; J1815; J1940; J2405; J7030; J7060